=== PATIENT | male | born 1970 | race Caucasian/White ===

== ENCOUNTER → 2020-06-06 15:42 | Outpatient (CLI) | payer BC, SELFPAY ==
--- NOTE | ~2020-06-06 | CT_ITS ---
EXAMINATION: CT cervical spine wo con EXAM DATE: 06/06/2020 16:05 INDICATION: Fall. Neck pain. TECHNIQUE: Spiral CT of the cervical spine was performed without contrast. Axial images were reviewe d. Coronal and sagittal reformatted images were also reviewed. The dose-length product (DLP) for thi s examination was 291.86 mGy-cm. The exposure was tailored according to patient size (auto mA exposu re control), and iterative reconstruction (ASIR) was used as additional dose reduction technique. ere is no prior study for comparison. FINDINGS: Posterior fusion with cerclage wires C5-7. These facet joints and vertebral bodies also hav e solid bone bridging. There is 2 mm retrolisthesis C4 on C5. Mild to moderate arthritis. There is no evidence of acute cervical fracture. The odontoid process is intact. Pre-dens space is normal. Pr evertebral soft tissue is normal. There are no soft tissue abnormalities identified. There is no di sc space widening or traumatic vertebral body subluxation suspected. Mild upper cervical disc diseas e. A detailed level by level evaluation of spondylosis can be added as addendum if requested. IMPRESSION: 1. Intact lower cervical fusion. 2. No acute cervical findings. Reviewed, dictated and finalized at location A. UET KITCHEN SUPERVISOR
== END ==
PROVIDERS: PCP Internal Medicine; Visit Provider Internal Medicine
DX: M54.2 Cervicalgia (principal); W19.XXXA Unspecified fall, initial encounter; Z98.1 Arthrodesis status
CPT/HCPCS: 72125

== ENCOUNTER → 2022-05-24 13:42 | Outpatient (CLI) | payer OTHER, SELFPAY ==
--- NOTE | ~2022-05-24 | CT_ITS ---
EXAMINATION: CT abdomen pelvis wo con DATE: 05/24/2022 14:31 INDICATION: Recurrent cystitis TECHNIQUE: Computed tomography (CT) of the abdomen and pelvis was performed without intravenous contr ast. The dose-length product was 1005.28 mGy-cm. Automated exposure control and iterative reconstruct ion technique were employed. COMPARISON: No prior studies for comparison. FINDINGS: Calcified granuloma right lower lobe. Small 3 mm nodule right middle lobe, image 7. There i s a 6 mm left lower lobe nodule, image 24. Heart size normal. No significant pleural or pericardial e ffusion. The liver, spleen, pancreas, adrenal glands and kidneys are unremarkable. Gallbladder is pre sent. Small amount of gas in the bladder, likely from recent intervention. Clinically correlate. No f ocal bladder wall abnormalities. No significant perivesical fatty infiltration. Nonobstructive bowel gas pattern. Normal appendix. No free air or free fluid. There is an intramedull mukund danuta in the right femur. There is moderate osteoarthritis of the hips. There is lumbar spondylosis with levoscoliosis. No renal/ureteral stones or hydronephrosis. IMPRESSION: 1. Small bibasilar nodules, largest measuring 6 mm in the left lower lobe. Recommend follow-up low do se CT chest in 6 months. 2: Punctate foci of nondependent gas in the bladder which may be secondary to recent intervention or cystitis. Correlate for recent catheterization. Reviewed, dictated and finalized at location A. CE PATROL OFFICER IMPRESSION: 1. Small bibasilar nodules, largest measuring 6 mm in the left lower lobe. Mark mmend follow-up low dose CT chest in 6 months. 2: Punctate foci of nondependent gas in the bladder which may be secondary to recent intervention or cystitis. Correlate for recent catheterization.
== END ==
PROVIDERS: PCP Internal Medicine; Visit Provider Urology
DX: N30.90 Cystitis, unspecified without hematuria (principal); R91.8 Other nonspecific abnormal finding of lung field
CPT/HCPCS: 74176

== ENCOUNTER 2022-06-17 00:46 | Day surgery (SDC) | payer OTHER, SELFPAY ==
[2022-06-05 13:21] VITALS: BMI 38.0
[2022-06-17 09:20] VITALS: BP 128/77; PULSE 88; RESP 20; TEMP 36.1; O2SAT 98
[2022-06-17] MEDS: LACTATED RINGERS 1,000 ML 150 ML IV CONT (09:37)
--- NOTE | 2022-06-17 09:53 | P.PNAN_ITS ---
Anes - Initial Pre Proc Eval Procedure: Operation Date: 06/17/22 10:30 Proposed Procedures p Screening Colonoscopy - Abdifatah Staton MD Date/Time: 06/17/22 09:53 Surgeon: Abdifatah Staton MD Pre Op Diagnosis: neoplasm screening Patient Data Age: 52 Gender: M Height: 1.73 m Weight: 112.5 kg Last Vital Signs Temp 36.1 C L 06/17/22 09:20 Pulse 88 06/17/22 09:20 Resp 20 06/17/22 09:20 BP 128/77 06/17/22 09:20 Pulse Ox 98 06/17/22 09:20 O2 Del Method Room Air 06/17/22 09:20 Allergies Allergy/AdvReac Type Severity Reaction Status Date / Time Sulfa (Sulfonamide AdvReac Intermediate Other Verified 06/17/22 09:20 Antibiotics) Home Medications Medication Instructions Recorded Confirmed Type ascorbic acid (vitamin C) 1,000 mg 1 g PO DAILY 08/13/21 06/05/22 History tablet carbamazepine 200 mg 200 mg PO DIRECTED 08/13/21 06/05/22 History tablet,extended release,12 hr (Tegretol XR) esomeprazole magnesium 40 mg 40 mg PO DAILY 08/13/21 06/05/22 History capsule,delayed release (Nexium) methenamine brad-sod biphos 500 1 tablet PO Q12H 08/13/21 06/05/22 History mg-500 mg tablet psyllium husk 3.4 gram/5.4 gram 1 tbsp PO DAILY 08/13/21 06/05/22 History oral powder (Metamucil) mirabegron 25 mg tablet,extended 25 mg PO DAILY 06/05/22 06/05/22 History release 24 hr (Myrbetriq) Patient hx anesthesia problems: none Family hx anesthesia problems: none Results Review: All pre-operative results and documents have been reviewed as part of the pre- operative evaluation. [facility] Past Medical History Medical History GERD (gastroesophageal reflux disease) Surgical History Surgical History History of ear surgery History of neck surgery History of surgery on lower extremity Family History Family History Grandparent Diabetes mellitus Social History Social History Smoking status: Former smoker Tobacco type: cigarettes Alcohol intake: current Alcohol use details: rarely Substance use: never Substance use type: does not use Living arrangements: with family Occupation/Education: occupation Additional occupation/education comments: [employer] [facility] care concerns: No Anes - Eval Final PreProcedure Day of Procedure 06/17/22 09:53 Patient weight: obese Heart: regular rate and rhythm Lungs: clear to auscultation Airway: Mallampati scale class III Neurological: alert and oriented Last oral intake: >/= 8 hours ASA classification: III Emergent: no Anesthetic plan: proceed Anesthesia type and monitoring: general GIVS and standard monitoring Results Review: All pre-operative results and documents have been reviewed as part of the pre- operative evaluation. Informed Consent: The patient's anesthetic plan and its attendant risks and benefits were discussed with the patient/family/POA. Questions were solicited and answers provided to the satisfaction of the patient/family/POA.
[2022-06-17] MEDS: SIMETHICONE ORAL SUSPENSION 20 MG/0.3 ML 30 ML BOTTLE 0.6 ML IRRIGATION (10:32)
[2022-06-17 10:39] VITALS: BP 128/77; PULSE 73; RESP 16; O2SAT 99
[2022-06-17 10:49] VITALS: BP 130/76; PULSE 70; RESP 17; O2SAT 100
[2022-06-17 10:59] VITALS: BP 116/78; PULSE 71; RESP 21; O2SAT 100
--- NOTE | 2022-06-18 12:58 | P.HP_ITS ---
History of Present Illness History of Present Illness Consent: Risks, benefits, and alternatives have been discussed and questions answered. Patient agrees to proceed with procedure. Chief complaint: neoplasm screening Narrative: Angus Jain is a 52 year old male was referred for colon cancer screening. Review of Systems Review of Systems: All systems reviewed & are unremarkable except as noted in HPI and below PMFSH Past Medical History Medical History GERD (gastroesophageal reflux disease) Surgical History Surgical History History of ear surgery History of neck surgery History of surgery on lower extremity Family History Family History Grandparent Diabetes mellitus Social History Social History Smoking status: Former smoker Tobacco type: cigarettes Alcohol intake: current Alcohol use details: rarely Substance use: never Substance use type: does not use Living arrangements: with family Occupation/Education: occupation Additional occupation/education comments: [employer] concerns: No Meds Home Medications and Allergies Home Medications Medication Instructions Recorded Confirmed Type ascorbic acid (vitamin C) 1,000 mg 1 g PO DAILY 08/13/21 06/05/22 History tablet carbamazepine 200 mg 200 mg PO DIRECTED 08/13/21 06/05/22 History tablet,extended release,12 hr (Tegretol XR) esomeprazole magnesium 40 mg 40 mg PO DAILY 08/13/21 06/05/22 History capsule,delayed release (Nexium) methenamine brad-sod biphos 500 1 tablet PO Q12H 08/13/21 06/05/22 History mg-500 mg tablet psyllium husk 3.4 gram/5.4 gram 1 tbsp PO DAILY 08/13/21 06/05/22 History oral powder (Metamucil) mirabegron 25 mg tablet,extended 25 mg PO DAILY 06/05/22 06/05/22 History release 24 hr (Myrbetriq) Allergies Allergy/AdvReac Type Severity Reaction Status Date / Time Sulfa (Sulfonamide AdvReac Intermediate Other Verified 06/17/22 09:20 Antibiotics) Exam Const: General: alert Orientation/consciousness: patient oriented x3 Resp: Auscultation: clear to auscultation bilaterally Cardio: Rhythm: regular rhythm GI: GI Palp: Yes Soft to palpation and No Tenderness to palpation present (GI) Neuro: General: patient oriented x3 Assessment and Plan Assessment and plan (1) Colon cancer screening: Code(s): Z12.11 - Encounter for screening for malignant neoplasm of colon Status: Acute Assessment and Plan: Colonoscopy with possible biopsy or polypectomy or cautery or injection of subst ances.
== END 2022-06-17 11:06 | disposition home or self-care (01) ==
PROVIDERS: PCP Internal Medicine; Visit Provider Internal Medicine Gastroenterology
PROC: 0DJD8ZZ Inspection of Lower Intestinal Tract, Via Natural or Artificial Opening Endoscopic (ICD-10-PCS; CPT 45378; principal; 2022-06-17 10:30)
DX: Z12.11 Encounter for screening for malignant neoplasm of colon (principal); K21.9 Gastro-esophageal reflux disease without esophagitis; Z87.891 Personal history of nicotine dependence; K64.4 Residual hemorrhoidal skin tags; K64.8 Other hemorrhoids
CPT/HCPCS: 45378; J2704; J7120

== ENCOUNTER 2022-07-18 00:37 | Day surgery (SDC) | payer OTHER, SELFPAY ==
[2022-07-03 12:35] VITALS: BMI 38.2
--- NOTE | 2022-07-17 14:50 | PM.HPGS ---
History of Present Illness History of Present Illness Consent: Risks, benefits, and alternatives have been discussed and questions answered. Patient agrees to proceed with procedure. Chief complaint: dysphagia Narrative: Angus Jain is a 52 year old male Was having dysphagia for solid food. He has had esophageal dilatation at least 3 times because of a Schatzki's ring. It appears that his dilatation was up to 18 mm last 2 occasions. Review of Systems Review of Systems: All systems reviewed & are unremarkable except as noted in HPI and below PMFSH Past Medical History Medical History GERD (gastroesophageal reflux disease) Surgical History Surgical History History of ear surgery History of neck surgery History of surgery on lower extremity Family History Family History Grandparent Diabetes mellitus Social History Social History Smoking packs per day: 1 Smoking cigarettes per day: 20.0 Years smoked: 20 Smoking pack-years: 20.00 Smoking status: Former smoker Tobacco type: cigarettes Alcohol intake: current Alcohol use details: once a month Substance use: never Substance use type: does not use Living arrangements: with family Occupation/Education: occupation Additional occupation/education comments: [employer] [employer] [facility] care concerns: No Meds Home Medications and Allergies Home Medications Medication Instructions Recorded Confirmed Type ascorbic acid (vitamin C) 1,000 mg 1 g PO DAILY 08/13/21 07/03/22 History tablet carbamazepine 200 mg 200 mg PO DIRECTED 08/13/21 07/03/22 History tablet,extended release,12 hr (Tegretol XR) esomeprazole magnesium 40 mg 40 mg PO DAILY 08/13/21 07/03/22 History capsule,delayed release (Nexium) methenamine brad-sod biphos 500 1 tablet PO Q12H 08/13/21 07/03/22 History mg-500 mg tablet psyllium husk 3.4 gram/5.4 gram 1 tbsp PO DAILY 08/13/21 07/03/22 History oral powder (Metamucil) mirabegron 25 mg tablet,extended 25 mg PO DAILY 06/05/22 07/03/22 History release 24 hr (Myrbetriq) Allergies Allergy/AdvReac Type Severity Reaction Status Date / Time Sulfa (Sulfonamide AdvReac Intermediate Other Verified 07/03/22 12:34 Antibiotics) Exam Const: General: alert Orientation/consciousness: patient oriented x3 Resp: Auscultation: clear to auscultation bilaterally Cardio: Rhythm: regular rhythm GI: GI Palp: Yes Soft to palpation and No Tenderness to palpation present (GI) Neuro: General: patient oriented x3 Assessment and Plan Assessment and plan (1) Dysphagia: Code(s): R13.10 - Dysphagia, unspecified Status: Acute Assessment and Plan: EGD with possible biopsy or dilatation or cautery.
[2022-07-18 08:20] VITALS: BMI 37.5
[2022-07-18] MEDS: LACTATED RINGERS 1,000 ML 150 ML IV CONT (08:32)
[2022-07-18 08:38] VITALS: BP 143/90; PULSE 80; RESP 18; TEMP 36.6; O2SAT 95
--- NOTE | 2022-07-18 08:57 | WPDANESEPPF ---
Anes - Initial Pre Proc Eval Procedure: Operation Date: 07/18/22 09:30 Proposed Procedures p Esophagogastroduodenoscopy - Abdifatah Staton MD Date/Time: 07/18/22 08:57 Surgeon: Abdifatah Staton MD Pre Op Diagnosis: dysphagia Patient Data Age: 52 Gender: M Height: 1.73 m Weight: 112 kg Last Vital Signs Temp 97.8 F 07/18/22 08:38 Pulse 80 07/18/22 08:38 Resp 18 07/18/22 08:38 BP 143/90 H 07/18/22 08:38 Pulse Ox 95 07/18/22 08:38 O2 Del Method Room Air 07/18/22 08:38 Allergies Allergy/AdvReac Type Severity Reaction Status Date / Time Sulfa (Sulfonamide AdvReac Intermediate Other Verified 07/03/22 12:34 Antibiotics) Home Medications Medication Instructions Recorded Confirmed Type ascorbic acid (vitamin C) 1,000 mg 1 g PO DAILY 08/13/21 07/03/22 History tablet carbamazepine 200 mg 200 mg PO DIRECTED 08/13/21 07/03/22 History tablet,extended release,12 hr (Tegretol XR) esomeprazole magnesium 40 mg 40 mg PO DAILY 08/13/21 07/03/22 History capsule,delayed release (Nexium) methenamine brad-sod biphos 500 1 tablet PO Q12H 08/13/21 07/03/22 History mg-500 mg tablet psyllium husk 3.4 gram/5.4 gram 1 tbsp PO DAILY 08/13/21 07/03/22 History oral powder (Metamucil) mirabegron 25 mg tablet,extended 25 mg PO DAILY 06/05/22 07/03/22 History release 24 hr (Myrbetriq) Patient hx anesthesia problems: none Family hx anesthesia problems: none Results Review: All pre-operative results and documents have been reviewed as part of the pre-operative evaluation. [facility] Past Medical History Medical History GERD (gastroesophageal reflux disease) Surgical History Surgical History History of ear surgery History of neck surgery History of surgery on lower extremity Family History Family History Grandparent Diabetes mellitus Social History Social History Smoking packs per day: 1 Smoking cigarettes per day: 20.0 Years smoked: 20 Smoking pack-years: 20.00 Smoking status: Former smoker Tobacco type: cigarettes Alcohol intake: current Alcohol use details: once a month Substance use: never Substance use type: does not use Living arrangements: with family Occupation/Education: occupation 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 Informed Consent: The patient's anesthetic plan and its attendant risks and benefits were discussed with the patient/family/POA. Questions were solicited and answers provided to the satisfaction of the patient/family/POA.
[2022-07-18 09:26] VITALS: BP 116/68; PULSE 104; RESP 19; O2SAT 96
[2022-07-18 09:36] VITALS: BP 122/65; PULSE 71; RESP 19; O2SAT 99
[2022-07-18 09:46] VITALS: BP 119/60; PULSE 66; RESP 17; O2SAT 98
== END 2022-07-18 10:00 | disposition home or self-care (01) ==
PROVIDERS: PCP Internal Medicine; Visit Provider Internal Medicine Gastroenterology
PROC: 0DJ08ZZ Inspection of Upper Intestinal Tract, Via Natural or Artificial Opening Endoscopic (ICD-10-PCS; CPT 43235; principal; 2022-07-18 09:30)
DX: K22.2 Esophageal obstruction (principal); K21.9 Gastro-esophageal reflux disease without esophagitis; Z87.891 Personal history of nicotine dependence; E66.9 Obesity, unspecified; Z68.37 Body mass index [BMI] 37.0-37.9, adult
CPT/HCPCS: 43249; 88305; C1726; J2704; J7120

== ENCOUNTER 2023-08-21 10:10 | Outpatient (CLI) | payer OTHER, SELFPAY ==
--- NOTE | ~2023-08-21 | XR_ITS ---
EXAMINATION: XR scoliosis survey DATE: 08/21/2023 10:34 INDICATION: Scoliosis. TECHNIQUE: Anteroposterior and lateral views of entire spine standing were obtained. COMPARISON: None. FINDINGS: Right iliac crest stands 15 mm higher than left. There are 12 pairs of ribs. There are 5 no nrib-bearing lumbar segments. There is 6 degrees dextrocurvature from T3 to T12. There is 8 degrees l evocurvature from T12 to L4. There is kyphosis of thoracic spine. There is mild chronic anterior wedg ing of multiple thoracic vertebral bodies. There is 3 mm retrolisthesis of L1 on L2, L2 on L3, and L3 on L4. There is moderate thoracic spondylosis and mild lumbar spondylosis. IMPRESSION: 1. Right iliac crest stands 15 mm higher than the left. 2. 6 degrees dextrocurvature from T3 to T12 and 8 degrees levocurvature from T12 to L4. 3. Thoracic kyphosis. Reviewed, dictated and finalized at location E. IMPRESSION: 1. Right iliac crest stands 15 mm higher than the left. 2. 6 degrees dextrocurvature from T3 to T12 and 8 degrees levocurvature from T 12 to L4. 3. Thoracic kyphosis.
== END 2023-08-21 10:11 ==
PROVIDERS: PCP Internal Medicine; Visit Provider Chiropractor
DX: M43.8X5 Other specified deforming dorsopathies, thoracolumbar region (principal); M43.8X4 Other specified deforming dorsopathies, thoracic region; M40.294 Other kyphosis, thoracic region; M21.751 Unequal limb length (acquired), right femur
CPT/HCPCS: 72082

== ENCOUNTER 2023-10-29 00:29 | Day surgery (SDC) | payer OTHER, SELFPAY ==
[2023-10-27 13:43] VITALS: BMI 36.5
[2023-10-29 08:51] VITALS: BP 149/87; PULSE 85; RESP 18; TEMP 36.1; O2SAT 97; BMI 36.1
[2023-10-29] MEDS: LACTATED RINGERS 1,000 ML 150 ML IV CONT (09:04)
--- NOTE | 2023-10-29 09:34 | WPDANESEPPF ---
Anes - Initial Pre Proc Eval Procedure: Operation Date: 10/29/23 10:00 Proposed Procedures p Esophagogastroduodenoscopy - Pranav Garcia MD Date/Time: 10/29/23 09:34 Surgeon: Pranav Garcia MD Pre Op Diagnosis: Dysphagia, esophageal obstruction Patient Data Age: 53 Gender: M Height: 1.73 m Weight: 107.8 kg Last Vital Signs Temp 36.1 C L 10/29/23 08:51 Pulse 85 10/29/23 08:51 Resp 18 10/29/23 08:51 BP 149/87 H 10/29/23 08:51 Pulse Ox 97 10/29/23 08:51 O2 Del Method Room Air 10/29/23 08:51 Allergies Allergy/AdvReac Type Severity Reaction Status Date / Time Sulfa (Sulfonamide AdvReac Intermediate Other Verified 10/29/23 08:50 Antibiotics) Home Medications Medication Instructions Recorded Confirmed Type ascorbic acid (vitamin C) 1,000 mg 1 g PO BID 08/13/21 10/29/23 History tablet carbamazepine 200 mg 800 mg PO HS 08/13/21 10/29/23 History tablet,extended release,12 hr (Tegretol XR) esomeprazole magnesium 40 mg 40 mg PO DAILY 08/13/21 10/29/23 History capsule,delayed release (Nexium) psyllium husk 3.4 gram/5.4 gram 1 tbsp PO DAILY 08/13/21 10/29/23 History oral powder (Metamucil) mirabegron 25 mg tablet,extended 25 mg PO DAILY 06/05/22 10/29/23 History release 24 hr (Myrbetriq) acetaminophen 325 mg tablet 325 mg PO ONCE PRN Pain 10/27/23 10/29/23 History (Tylenol) calcium carbonate 500 1 tablet PO PRN PRN Gastric Reflux 10/27/23 10/29/23 History mg-simethicone 20 mg chewable tablet diphenhydramine HCl 25 mg capsule 12.5 mg PO HS 10/27/23 10/29/23 History (Benadryl) famotidine 10 mg chewable tablet 10 mg PO PRN PRN REFLUX 10/27/23 10/29/23 History furosemide 20 mg tablet 20 mg PO DAILY 10/27/23 10/29/23 History ibuprofen 200 mg tablet (Advil) 200 mg PO Q6H PRN Pain 10/27/23 10/29/23 History methenamine hippurate 1 gram tablet 1 g PO BID 10/27/23 10/29/23 History minocycline 100 mg capsule 100 mg PO BID 10/27/23 10/29/23 History Patient hx anesthesia problems: none Family hx anesthesia problems: none Results Review: All pre-operative results and documents have been reviewed as part of the pre-operative evaluation. [facility] Past Medical History Medical History (Updated 10/29/23 @ 09:34 by Adi Baig MD) GERD (gastroesophageal reflux disease) Obesity Surgical History Surgical History History of ear surgery History of neck surgery History of surgery on lower extremity Family History Family History Grandparent Diabetes mellitus Social History Social History Smoking packs per day: 1 Smoking cigarettes per day: 20.0 Years smoked: 20 Smoking pack-years: 20.00 Smoking status: Former smoker Tobacco type: cigarettes Alcohol intake: current Drinks per week: 4 Alcohol use details: BEERS Substance use: never Substance use type: does not use Living arrangements: with family Occupation/Education: occupation Additional occupation/education comments: [employer]- [employer] care concerns: No Anes - Eval Final PreProcedure Day of Procedure 10/29/23 09:34 Patient weight: obese Heart: regular rate and rhythm Lungs: clear to auscultation Airway: Mallampati scale class III Neurological: alert and oriented Last oral intake: >/= 8 hours ASA classification: III Emergent: no Anesthetic plan: proceed Anesthesia type and monitoring: general GIVS and standard monitoring Results Review: All pre-operative results and documents have been reviewed as part of the pre-operative evaluation. Informed Consent: The patient's anesthetic plan and its attendant risks and benefits were discussed with the patient/family/POA. Questions were solicited and answers provided to the satisfaction of the patient/family/POA.
--- NOTE | 2023-10-29 09:55 | PM.HPGS ---
History of Present Illness History of Present Illness Consent: Risks, benefits, and alternatives have been discussed and questions answered. Patient agrees to proceed with procedure. Chief complaint: Dysphagia, esophageal obstruction Narrative: Angus Jain is a 53 year old male here for egd, known h/o esophageal stricture with last dilation 1 year ago, he had several done. Review of Systems Review of Systems: All systems reviewed & are unremarkable except as noted in HPI and below PMFSH Past Medical History Medical History (Updated 10/29/23 @ 09:34 by Adi Baig MD) GERD (gastroesophageal reflux disease) Obesity Surgical History Surgical History History of ear surgery History of neck surgery History of surgery on lower extremity Family History Family History Grandparent Diabetes mellitus Social History Social History Smoking packs per day: 1 Smoking cigarettes per day: 20.0 Years smoked: 20 Smoking pack-years: 20.00 Smoking status: Former smoker Tobacco type: cigarettes Alcohol intake: current Drinks per week: 4 Alcohol use details: BEERS Substance use: never Substance use type: does not use Living arrangements: with family Occupation/Education: occupation Additional occupation/education comments: [employer] [employer] care concerns: No Meds Home Medications and Allergies Home Medications Medication Instructions Recorded Confirmed Type ascorbic acid (vitamin C) 1,000 mg 1 g PO BID 08/13/21 10/29/23 History tablet carbamazepine 200 mg 800 mg PO HS 08/13/21 10/29/23 History tablet,extended release,12 hr (Tegretol XR) esomeprazole magnesium 40 mg 40 mg PO DAILY 08/13/21 10/29/23 History capsule,delayed release (Nexium) psyllium husk 3.4 gram/5.4 gram 1 tbsp PO DAILY 08/13/21 10/29/23 History oral powder (Metamucil) mirabegron 25 mg tablet,extended 25 mg PO DAILY 06/05/22 10/29/23 History release 24 hr (Myrbetriq) acetaminophen 325 mg tablet 325 mg PO ONCE PRN Pain 10/27/23 10/29/23 History (Tylenol) calcium carbonate 500 1 tablet PO PRN PRN Gastric Reflux 10/27/23 10/29/23 History mg-simethicone 20 mg chewable tablet diphenhydramine HCl 25 mg capsule 12.5 mg PO HS 10/27/23 10/29/23 History (Benadryl) famotidine 10 mg chewable tablet 10 mg PO PRN PRN REFLUX 10/27/23 10/29/23 History furosemide 20 mg tablet 20 mg PO DAILY 10/27/23 10/29/23 History ibuprofen 200 mg tablet (Advil) 200 mg PO Q6H PRN Pain 10/27/23 10/29/23 History methenamine hippurate 1 gram tablet 1 g PO BID 10/27/23 10/29/23 History minocycline 100 mg capsule 100 mg PO BID 10/27/23 10/29/23 History Allergies Allergy/AdvReac Type Severity Reaction Status Date / Time Sulfa (Sulfonamide AdvReac Intermediate Other Verified 10/29/23 08:50 Antibiotics) Vital Signs Vital Signs - 24 hr 10/29/23 08:51 Temperature 97 F L Pulse Rate 85 Respiratory Rate 18 Blood Pressure 149/87 H Pulse Oximetry 97 Oxygen Delivery Room Air Exam Const: General: comfortable and no acute distress HENMT: Face/Nose/Sinus: Normal nares present Eyes: General: appearance normal, both eyes and all related structures Neck: Neck: no JVD Resp: Auscultation: clear to auscultation bilaterally Cardio: Rate: regular rate Rhythm: regular rhythm GI: Inspection: non-distended GI Palp: Yes Soft to palpation Skin: General skin exam: normal color Neuro: General: gait normal Speech: normal speech Extrem: General: normal to inspection Psych: Mental Status: mental status grossly normal Assessment and Plan Assessment and plan (1) Esophageal stricture: Code(s): K22.2 - Esophageal obstruction Status: Acute Assessment and Plan: egd, most likely will need dilation again
[2023-10-29 10:12] VITALS: BP 144/89; PULSE 69; RESP 15; O2SAT 99
[2023-10-29 10:22] VITALS: BP 139/92; PULSE 64; RESP 15; O2SAT 100
[2023-10-29 10:32] VITALS: BP 152/89; PULSE 63; RESP 16; O2SAT 100
== END 2023-10-29 10:43 | disposition home or self-care (01) ==
PROVIDERS: PCP Internal Medicine; Referring Provider Nurse Practitioner; Visit Provider Internal Medicine Gastroenterology
PROC: 0DJ08ZZ Inspection of Upper Intestinal Tract, Via Natural or Artificial Opening Endoscopic (ICD-10-PCS; CPT 43235; principal; 2023-10-29 10:00)
DX: K22.2 Esophageal obstruction (principal); K29.70 Gastritis, unspecified, without bleeding; K21.9 Gastro-esophageal reflux disease without esophagitis; E66.9 Obesity, unspecified; Z68.36 Body mass index [BMI] 36.0-36.9, adult; Z87.891 Personal history of nicotine dependence
CPT/HCPCS: 43249; 43239; 88305; C1726; J2704; J7120

== ENCOUNTER 2024-02-26 09:59 | Outpatient (CLI) | payer OTHER, SELFPAY ==
--- NOTE | ~2024-02-26 | CT_ITS ---
EXAMINATION: CT abdomen pelvis wo/w con DATE: 02/26/2024 10:55 INDICATION: Unspecified hydronephrosis. TECHNIQUE: Computed tomography (CT) of the abdomen and pelvis was performed without and with intraven ous contrast using a total of 130 mL Omnipaque-350 intravenous contrast with a double-bolus technique for simultaneous opacification of the renal parenchyma and renal collecting system. Automated exposu re control and iterative reconstruction technique were employed. The dose-length product was 2012.63 mGy-cm. COMPARISON: CT abdomen pelvis 05/24/2022 FINDINGS: The visualized portions of lung bases demonstrate a calcified right lung nodule is consistent with ol d granulomatous disease. There is a 6 mm nodule in left lower lobe without change, consistent with gr anulomatous disease. No pleural effusion. The heart size is normal. No pericardial effusion. There is a small sliding hiatal hernia. The liver, gallbladder, spleen, pancreas, and adrenal glands are norm al. There is moderate right hydronephrosis and hydroureter. There is no contrast in right ureter. Lef t kidney is normal. Left ureter is well opacified and is normal. There are no dilated loops of bowel. The appendix is normal. There is wall thickening of the terminal ileum. There is mesenteric lymphade nopathy with the largest mass measuring 10.3 x 7.7 cm. There is no ascites. There is internal fixatio n of right femur. There is mild thoracic and lumbar spondylosis. IMPRESSION: 1. Mesenteric lymphadenopathy, consistent with lymphoma versus metastatic disease. CT-guided biopsy i s recommended. 2. Focal wall thickening of the terminal ileum, which is indeterminate for primary malignancy. 3. Moderate right hydronephrosis and hydroureter secondary to the mesenteric lymphadenopathy. Reviewed, dictated and finalized at location A. DRIVER IMPRESSION: 1. Mesenteric lymphadenopathy, consistent with lymphoma versus metastatic disea se. CT-guided biopsy is recommended. 2. Focal wall thickening of the terminal ileum, which is indeterminate for prim mukund malignancy. 3. Moderate right hydronephrosis and hydroureter secondary to the mesenteric ly mphadenopathy.
[2024-02-26 10:26] LABS: Estimated Glomerular Filt Rate 53
== END 2024-02-26 10:00 | disposition home or self-care (01) ==
LOC: MICIMG 10:01
PROVIDERS: PCP Internal Medicine; Visit Provider Urology
DX: R59.0 Localized enlarged lymph nodes (principal); N13.30 Unspecified hydronephrosis; K63.89 Other specified diseases of intestine
CPT/HCPCS: 74178; Q9967

== ENCOUNTER 2024-03-01 09:44 | Outpatient (CLI) | payer OTHER, SELFPAY ==
--- NOTE | 2024-03-01 10:08 | ECG_ITS ---
Test Date: 2024-03-01 10:15:01 Measurements Intervals [place] Rate: 69 P: 49 [place]: 156 QRS: 50 QRSD: 94 T: 44 QT: 366 QTc: 395 Interpretive Statements SINUS RHYTHM NORMAL ECG No previous ECG available for comparison Electronically Signed On 03-01-2024 10:43:23 IT DIRECTOR by Jose Francisco Acevedo D.O.
[2024-03-01 10:21] LABS: Prothrombin Time 13.2 Seconds (11.1-14.7)
[2024-03-01 10:22] LABS: Anion Gap 9 mmol/L (4-12); Blood Urea Nitrogen 16 mg/dL (9-20); Calcium 9.6 mg/dL (8.4-10.2); Carbon Dioxide 31 mmol/L (22-30); Chloride 96 mmol/L (98-107); Estimated Glomerular Filt Rate > 60; Glucose 98 mg/dL (65-110); Potassium 4.5 mmol/L (3.4-5.0); Sodium 136 mmol/L (137-145)
== END 2024-03-01 09:45 | disposition home or self-care (01) ==
LOC: ANHLAB 09:45
PROVIDERS: PCP Internal Medicine; Visit Provider Anesthesiology
DX: Z01.818 Encounter for other preprocedural examination (principal); N28.9 Disorder of kidney and ureter, unspecified; F17.210 Nicotine dependence, cigarettes, uncomplicated; Z79.899 Other long term (current) drug therapy
CPT/HCPCS: 36415; 80048; 80156; 85610; 85730; 93005

== ENCOUNTER 2024-03-02 00:07 | Day surgery (SDC) | payer OTHER, SELFPAY ==
[2024-03-01 08:23] VITALS: BMI 36.5
--- NOTE | 2024-03-01 08:24 | PC.NURSE ---
Report to the Outpatient Waiting Room, entrance under the green pavilion located off [facility], at time _0800_ on date _[id number]_. Planned Procedure Time: _1000_.? Time changes happen often and if your time is changed the preop area will call you the afternoon before. - You and your visitor will be asked to self-screen and do not enter if you have any COVID symptoms. Please call surgeon if you need to reschedule. - A mask is optional within the hospital at this time. Patients may have clear liquids (water, carbonated beverages, clear teas, apple juice) until 3 hours prior to surgery with a maximum of 20 ounces. - No food from midnight until time of surgery and no smoking. This includes no chewing gum, candy or mints. Take only the following medications with a SIP of water on the morning of surgery: ____tylenol if needed. DO NOT STOP ANY OF YOUR OTHER PRESCRIPTION MEDICATIONS PRIOR TO SURGERY EXCEPT THE FOLLOWING Medications to discontinue per physician ____No vitamins or Ibuprofen until after surgery.____Ronyelfego told him to hold Ibuprofen. Please no make-up, nail bulgarian, hairspray, perfume, deodorant, or body powder the day of surgery.? No jewelry (including any body piercings) or valuables the day of surgery, leave them at home.? Please take a shower or bath the night before, or the morning of, surgery with an antibacterial soap.? Wear comfortable, loose fitting clothing.? - Jewelry must be removed prior to entering the operating room.? Rings and piercings that are not removed may be cut off. - The hospital will not accept responsibility for valuables.? - Please leave all valuables, including medications, at home the day of surgery. If you are going home after surgery, a licensed truck driver must drive you home.? - NO public transportation without another adult if you receive anesthesia. - We recommend that an adult stay with you for 24 hours following discharge. - We also recommend that you do not drive, make important decision, drink alcoholic beverages, or take any drugs that were not prescribed by your health care provider for at least 24 hours after your discharge time. Follow any additional instructions given to you from your surgeon. Telephone instructions given to _Angus___and asked if any additional questions and then verbalized understanding. Patient advised to call surgeon office or pre surgery nurse liaison [phone] if any additional questions.
[2024-03-02] VITALS (9 sets, daily range): BP systolic 148–188; BP diastolic 81–99; PULSE 73–95; RESP 12–18; TEMP 36.6–36.7; O2SAT 96–100
--- NOTE | ~2024-03-02 | XR_ITS ---
EXAMINATION: XR retrograde pyelo w/stent RT DATE: 03/02/2024 10:34 INDICATION: Right internal ureteral stent placement TECHNIQUE: Fluoroscopic images from a right internal ureteral stent placement are submitted for domi rm 62 seconds of fluoroscopy time. FINDINGS: There is a right double-J internal ureteral stent projecting in expected position, with proximal [place] loop at the level of the renal pelvis and distal loop in the pelvis within the bladder lumen. IMPRESSION: 1. Right internal ureteral stent placement. Please refer to real-time procedural findings for nicole ls. Reviewed, dictated and finalized at location B. SURISED CONTAINER FILLER IMPRESSION: 1. Right internal ureteral stent placement. Please refer to real-time procedu ral findings for details.
--- NOTE | 2024-03-02 09:01 | SUR.PREOP ---
SEIZURE PADS PLACED ON STRETCHER
--- NOTE | 2024-03-02 09:03 | P.HP_ITS ---
History of Present Illness History of Present Illness Consent: Risks, benefits, and alternatives have been discussed and questions answered. Patient agrees to proceed with procedure. Chief complaint: bilat hydronephrosis Narrative: Angus Jain is a 53 year old male Who recently underwent evaluation for recurrent urinary tract infection. Although cystoscopy was normal a CT scan of the abdomen pelvis without contrast shows marked retroperitoneal adenopathy with right ureteral obstruction. Discussion options he has elected for cystoscopy with retrograde pyelography and stent placement. His primary care physician is working to schedule a percutaneous biopsy of retroperitoneal nodes. Review of Systems Cardiovascular: Cardiovascular: Denies chest pain, Denies lightheadedness, Denies palpitations and Denies dyspnea Respiratory: Respiratory: Denies dyspnea Gastrointestinal: Gastrointestinal: Denies diarrhea, Denies nausea and Denies vomiting Genitourinary: Genitourinary: Denies hematuria and Denies dysuria Endocrine: Endocrine: Denies palpitations [facility] Past Medical History Medical History (Updated 03/02/24 @ 09:04 by Saroj Griffin MD) GERD (gastroesophageal reflux disease) Obesity Surgical History Surgical History History of ear surgery History of neck surgery History of surgery on lower extremity Family History Family History Grandparent Diabetes mellitus Social History Social History Smoking packs per day: 1 Smoking cigarettes per day: 20.0 Years smoked: 25 Smoking pack-years: 25.00 Smoking status: Former smoker Tobacco type: cigarettes Smoking end date: 03/01/19 Alcohol intake: current Drinks per week: 4 Alcohol use details: BEERS Substance use: never Substance use type: does not use Living arrangements: with family Occupation/Education: occupation Additional occupation/education comments: [employer]- [employer] care concerns: No Meds Home Medications and Allergies Home Medications Medication Instructions Recorded Confirmed Type ascorbic acid (vitamin C) 1,000 mg 1 g PO BID 08/13/21 03/02/24 History tablet carbamazepine 200 mg 800 mg PO HS 08/13/21 03/02/24 History tablet,extended release,12 hr (Tegretol XR) psyllium husk 3.4 gram/5.4 gram 1 tbsp PO DAILY 08/13/21 03/02/24 History oral powder (Metamucil) acetaminophen 325 mg tablet 325 mg PO ONCE PRN Pain 10/27/23 03/02/24 History (Tylenol) calcium carbonate 500 1 tablet PO PRN PRN Gastric Reflux 10/27/23 03/02/24 History mg-simethicone 20 mg chewable tablet diphenhydramine HCl 25 mg capsule 12.5 mg PO HS 10/27/23 03/02/24 History (Benadryl) famotidine 10 mg chewable tablet 10 mg PO PRN PRN REFLUX 10/27/23 03/02/24 History furosemide 20 mg tablet 20 mg PO DAILY 10/27/23 03/02/24 History ibuprofen 200 mg tablet (Advil) 200 mg PO Q6H PRN Pain 10/27/23 03/02/24 History methenamine hippurate 1 gram tablet 1 g PO BID 10/27/23 03/02/24 History zbclvwwqz-whtP-uirpags-FOS-bromelain 15 ml PO DAILY 03/01/24 03/02/24 History 1,937 mg-188 mg/15 mL oral liquid esomeprazole magnesium 20 mg 20 mg PO DAILY 03/01/24 03/02/24 History capsule,delayed release (Nexium) Allergies Allergy/AdvReac Type Severity Reaction Status Date / Time Sulfa (Sulfonamide AdvReac Intermediate Other Verified 03/02/24 08:41 Antibiotics) Vital Signs Vital Signs - 24 hr 03/02/24 08:21 Temperature 98.1 F Pulse Rate 95 Respiratory Rate 18 Blood Pressure 148/81 H Pulse Oximetry 96 Oxygen Delivery Room Air Exam Const: General: no acute distress Resp: Effort & Inspection: normal respiratory effort GI: Inspection: non-distended GI Palp: No abdominal tenderness and No Guarding due to palpation present (GI) Auscultation: normal bowel sounds Assessment and Plan Assessment and plan (1) Hydronephrosis, right: Code(s): N13.30 - Unspecified hydronephrosis Status: Acute (2) Retroperitoneal lymphadenopathy: Code(s): R59.0 - Localized enlarged lymph nodes Status: Acute Assessment and Plan: * Cystoscopy, right retrograde pyelography, right ureteral stent placement
--- NOTE | 2024-03-02 09:20 | P.PNAN_ITS ---
Anes - Initial Pre Proc Eval Procedure: Operation Date: 03/02/24 10:00 Proposed Procedures p Cystoscopy, Right Retrograde Pyelogram, Right Stent Placement - Saroj Griffin MD Date/Time: 03/02/24 09:20 Surgeon: Saroj Griffin MD Pre Op Diagnosis: bilat hydronephrosis Patient Data Age: 53 Gender: M Height: 1.73 m Weight: 104.4 kg Last Vital Signs Temp 98.1 F 03/02/24 08:21 Pulse 95 03/02/24 08:21 Resp 18 03/02/24 08:21 BP 148/81 H 03/02/24 08:21 Pulse Ox 96 03/02/24 08:21 O2 Del Method Room Air 03/02/24 08:21 Allergies Allergy/AdvReac Type Severity Reaction Status Date / Time Sulfa (Sulfonamide AdvReac Intermediate Other Verified 03/02/24 08:41 Antibiotics) Home Medications Medication Instructions Recorded Confirmed Type ascorbic acid (vitamin C) 1,000 mg 1 g PO BID 08/13/21 03/02/24 History tablet carbamazepine 200 mg 800 mg PO HS 08/13/21 03/02/24 History tablet,extended release,12 hr (Tegretol XR) psyllium husk 3.4 gram/5.4 gram 1 tbsp PO DAILY 08/13/21 03/02/24 History oral powder (Metamucil) acetaminophen 325 mg tablet 325 mg PO ONCE PRN Pain 10/27/23 03/02/24 History (Tylenol) calcium carbonate 500 1 tablet PO PRN PRN Gastric Reflux 10/27/23 03/02/24 History mg-simethicone 20 mg chewable tablet diphenhydramine HCl 25 mg capsule 12.5 mg PO HS 10/27/23 03/02/24 History (Benadryl) famotidine 10 mg chewable tablet 10 mg PO PRN PRN REFLUX 10/27/23 03/02/24 History furosemide 20 mg tablet 20 mg PO DAILY 10/27/23 03/02/24 History ibuprofen 200 mg tablet (Advil) 200 mg PO Q6H PRN Pain 10/27/23 03/02/24 History methenamine hippurate 1 gram tablet 1 g PO BID 10/27/23 03/02/24 History avrvdsgqe-qfqO-pxdzcuu-FOS-bromelain 15 ml PO DAILY 03/01/24 03/02/24 History 1,937 mg-188 mg/15 mL oral liquid esomeprazole magnesium 20 mg 20 mg PO DAILY 03/01/24 03/02/24 History capsule,delayed release (Nexium) Patient hx anesthesia problems: none Family hx anesthesia problems: none Results Review: All pre-operative results and documents have been reviewed as part of the pre- operative evaluation. [facility] Past Medical History Medical History GERD (gastroesophageal reflux disease) Obesity Surgical History Surgical History History of ear surgery History of neck surgery History of surgery on lower extremity Family History Family History Grandparent Diabetes mellitus Social History Social History Smoking packs per day: 1 Smoking cigarettes per day: 20.0 Years smoked: 25 Smoking pack-years: 25.00 Smoking status: Former smoker Tobacco type: cigarettes Smoking end date: 03/01/19 Alcohol intake: current Drinks per week: 4 Alcohol use details: BEERS Substance use: never Substance use type: does not use Living arrangements: with family Occupation/Education: occupation Additional occupation/education comments: [employer]- [facility] [employer] [facility] [employer] care concerns: No Anes - Eval Final PreProcedure Day of Procedure 03/02/24 09:20 Patient weight: obese Heart: regular rate and rhythm Lungs: clear to auscultation Airway: Mallampati scale class II Neurological: alert and oriented Last oral intake: >/= 8 hours ASA classification: III Emergent: no Anesthetic plan: proceed Anesthesia type and monitoring: general LMA and standard monitoring Results Review: All pre-operative results and documents have been reviewed as part of the pre- operative evaluation. Ex smoker, quit 2018. Pt had injury to neck/lower leg in the past, still uses walker for ambulation. No cp or sob w walking short distances. Informed Consent: The patient's anesthetic plan and its attendant risks and benefits were discussed with the patient/family/POA. Questions were solicited and answers provided to the satisfaction of the patient/family/POA.
--- NOTE | 2024-03-02 10:02 | WPDHPUPDATE1 ---
History and Physical Update Update Date/Time: 03/02/24 10:02 History and Physical has been reviewed, including an updated exam of the patient. There are NO changes in the patient's condition. Risks, benefits, and alternatives have been discussed and questions answered. Patient agrees to proceed with procedure.
[2024-03-02] MEDS: ceFAZolin 2 GM/D5W 50 ML 2 GM/50 ML BAG IVPB (10:07)
[2024-03-02] MEDS: LACTATED RINGERS 1,000 ML 30 ML IV CONT (10:35)
[2024-03-02] MEDS: fentaNYL CITRATE INJ (*CRX) 100 MCG/2 ML VIAL 25 MCG IV PUSH (10:43)
--- NOTE | 2024-03-02 12:43 | P.OP_ITS ---
Procedure Note - Detailed Date of Procedure 03/02/24 Pre-op Diagnosis Right hydronephrosis Post-op Diagnosis Same Procedure Performed Cystoscopy, right retrograde pyelography, right ureteral stent placement Surgeon Saroj Griffin MD Anesthesia MAC Findings Right hydronephrosis secondary to extrinsic compression of the right mid ureter Description of Procedure Patient is brought to the operative suite was prepped draped in routine sterile fashion in dorsal lithotomy position. 2% xylocaine jelly was introduced intraurethrally and systemic sedation is administered per the anesthesia department. Patient has no urethral stricture and minimal lateral lobe h yperplasia of prostate. Bladder mucosa is normal. There was no intravesical foreign body or neoplasm. He has a single orthotopic ureteral orifice bilaterally. Eight F bulb-tipped catheter was used to obtain retrograde pyelogram. He has 3-4 cm area of concentric narrowing in the right mid ureter consistent with extrinsic compression from his known retroperitoneal adenopathy. There was hydronephrosis proximal to this. A 0.035 in glidewire was advanced into the right renal pelvis and a 6FF variable length stent is appropriately positioned. Scopes and wires removed and was taken recovery room good condition. Urine Output 100 Drains No Packing Yes Pathology None sent Complications No immediate complications Condition Stable
--- NOTE | 2024-03-02 13:07 | SUR.PHASEII ---
Pt had question about antibiotics and pain medication. MD Griffin called, MD Griffin stated there is no need and if patient is in pain to call office.
== END 2024-03-02 13:00 | disposition home or self-care (01) ==
PROVIDERS: PCP Internal Medicine; Visit Provider Urology
PROC: (CPT 52352; principal; 2024-03-02 10:00)
DX: N13.30 Unspecified hydronephrosis (principal); N40.0 Benign prostatic hyperplasia without lower urinary tract symptoms; K21.9 Gastro-esophageal reflux disease without esophagitis; E66.9 Obesity, unspecified; Z68.35 Body mass index [BMI] 35.0-35.9, adult; Z79.1 Long term (current) use of non-steroidal anti-inflammatories (NSAID); Z98.890 Other specified postprocedural states; Z98.1 Arthrodesis status; Z87.891 Personal history of nicotine dependence
CPT/HCPCS: 52332; 74420; C1758; C1769; C2617; J0690; J1100; J2405; J2704; J3010; J7120; Q9966

== ENCOUNTER 2024-03-21 17:23 | Observation (INO) | payer OTHER, SELFPAY ==
--- NOTE | ~2024-03-21 | CT_ITS ---
EXAMINATION: CT abdomen pelvis w con DATE: 03/21/2024 20:12 INDICATION: blood in urine, recent stent placed TECHNIQUE: Computed tomography (CT) of the abdomen and pelvis was performed with 100 mL Omnipaque-350 intravenous contrast. Automated exposure control and iterative reconstruction technique were employe d. The dose-length product was 922.10 mGy-cm. COMPARISON: 02/26/2024. FINDINGS: Lower thorax: Peripheral pulmonary granulomas. Liver: Normal. Biliary/Gallbladder: Gallbladder is normal. No bile duct dilation. Pancreas: No mass or duct dilation. Spleen: Normal. Adrenals:No mass. Kidneys: Mild left ureterectasis and moderate left pelviectasis and caliectasis, stable. Moderate to severe right caliectasis and pelviectasis, also stable. Right ureteral stent, in good position GI tract: Mild distal esophageal and gastric wall edema. Wall thickening of the terminal ileum. Cecal wall edema. No small or large bowel dilation. Normal appendix. Diverticulosis without diverticulitis . Mesentery/Peritoneum: Increasing size of the lobulated central mesenteric mass now measuring up to 15 .3 cm, which encases the traversing right ureter, superior mesenteric artery and multiple proximal br anches, and appears to occlude the superior mesenteric vein. This mass is likely a conglomerate janet mass. Multiple enlarged adjacent mesenteric lymph nodes surrounding the mass. Retroperitoneum: No mass. Pelvis: Bladder wall thickening. Soft Tissues: Soft tissues and body wall unremarkable. Bones: No acute osseous finding. Right femoral intramedullary danuta. IMPRESSION: Mild esophagitis/gastritis. Wall thickening of the terminal ileum with cecal wall edema, may reflect ileitis/colitis. Primary mal ignancy at the terminal ileum should be considered in the differential. Mesenteric lymphadenopathy with a large conglomerate central mesenteric janet mass that is overall in creased in size, consistent with lymphoma or metastatic disease. This mass appears to be occluding th e superior mesenteric vein. Bladder wall thickening which may be secondary to cystitis, correlate with urinalysis. Reviewed, dictated and finalized at location K. E CAMERA OPERATOR IMPRESSION: Mild esophagitis/gastritis. Wall thickening of the terminal ileum with cecal wall edema, may reflect ileiti s/colitis. Primary malignancy at the terminal ileum should be considered in the differential. Mesenteric lymphadenopathy with a large conglomerate central mesenteric janet m ass that is overall increased in size, consistent with lymphoma or metastatic d isease. This mass appears to be occluding the superior mesenteric vein. Bladder wall thickening which may be secondary to cystitis, correlate with urin alysis.
--- NOTE | ~2024-03-21 | XR_ITS ---
EXAMINATION: XR chest 2V Exam Date/Time: 03/21/2024 20:10 PROOF PRESS OPERATOR HISTORY: RUQ abdominal pain Comparison: None. RESULT: Lines, tubes, and devices: None. Lungs and pleura: Clear. Cardiomediastinal silhouette: Unremarkable. Other: No acute osseous or upper abdominal finding. IMPRESSION: No acute cardiopulmonary process. Reviewed, dictated and finalized at location K. F PRESS OPERATOR
[2024-03-21 17:24] VITALS: BP 164/69; PULSE 81; RESP 20; TEMP 36.8; O2SAT 100
[2024-03-21 18:46] LABS: Basophils Absolute Auto 0.1 K/mm3 (0.0-0.1); Basophils Percent Auto 0.9 % (0.2-1.2); Eosinophils Absolute Auto 0.5 K/mm3 (0-0.3); Eosinophils Percent Auto 7.2 % (0-4.4); Hemoglobin 9.9 g/dL (14.0-18.0); Immature Granulocyte Absolute 0.02 K/mm3 (0.00-0.031); Immature Granulocyte Percent A 0.3 % (0-0.5); Lymphocytes Absolute Auto 0.91 K/mm3 (0.9-3.2); Mean Corpuscular HGB Conc 31.9 g/dl (32-36); Mean Corpuscular Hemoglobin 29.1 pg (26-34); Mean Corpuscular Volume 91.2 fl (80-100); Mean Platelet Volume 9.3 fl (7.4-10.4); Monocytes Absolute Auto 0.7 K/mm3 (0.1-0.6); Monocytes Percent Auto 10.3 % (2.6-8.5); Neutrophils Absolute Auto 4.4 K/mm3 (1.3-6.7); Neutrophils Percent Auto 67.3 % (45.5-73.1); Platelet Count Result 249 k/mm3 (150-375); Red Cell Distribution Width 13.3 % (11.5-14.5); White Blood Count 6.5 K/mm3 (4.5-10.0)
--- NOTE | 2024-03-21 18:54 | ECG_ITS ---
Test Date: 2024-03-21 19:17:29 Measurements Intervals [place] Rate: 66 P: 53 MS: 163 QRS: 52 QRSD: 93 T: 55 QT: 373 QTc: 393 Interpretive Statements SINUS RHYTHM Compared to ECG 03/01/2024 10:15:01 No significant changes Electronically Signed On 03-21-2024 21:56:54 NEWS WRITER by Shahrzad Villalpando M.D.
[2024-03-21 19:01] LABS: Alanine Aminotransferase 14 U/L (6-50); Albumin Level 4.1 g/dL (3.5-5.1); Alkaline Phosphatase 134 U/L (38-126); Anion Gap 5 mmol/L (4-12); Aspartate Amino Transferase 35 U/L (17-59); Bilirubin,Total 0.3 mg/dL (0.2-1.3); Blood Urea Nitrogen 13 mg/dL (9-20); Calcium 9.1 mg/dL (8.4-10.2); Carbon Dioxide 31 mmol/L (22-30); Chloride 102 mmol/L (98-107); Estimated CRCL calculation 15 ml/min; Estimated Glomerular Filt Rate > 60; Glucose 97 mg/dL (65-110); Potassium 4.3 mmol/L (3.4-5.0); Sodium 138 mmol/L (137-145)
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
[2024-03-21 19:04] LABS: Add Urine Microscopic? YES; Appearance Urine Cloudy (Clear); Bilirubin Urine 1+ (Negative); Blood Urine 2+ (Negative); Color Urine Red (Yellow); Glucose Urine UA Negative (Negative); Ketones Urine Negative (Negative); Leukocyte Esterase Ur 2+ LEU/UL (Negative); Nitrate Urine Negative (Negative); Protein Urine 3+ mg/dL (Negative); Specific Grav Ur 1.024 (1.001-1.035); Urobilinogen Urine 0.2 mg/dL (<2.0)
[2024-03-21] MEDS: SODIUM CHLORIDE 0.9% IV 1,000 ML 999 ML IV CONT (19:16)
[2024-03-21 19:21] LABS: Bacteria Urine 1+ /hpf; Need Manual Microscopic Reviewed; Non Pathogenic Casts 0-2; Squamous Epithelial Cell Urine Few /hpf (Few); WBC Urine 51-100 /hpf (0-3)
[2024-03-21 19:23] LABS: RBC Urine >100 /hpf (0-2)
[2024-03-21 19:27] LABS: Lactic Acid Reflex 0.9 mmol/L (0.7-2.0)
[2024-03-21 19:29] LABS: CRP 6.9 mg/dL (<1.0); Creatine Kinase 33 U/L (55-170); Lipase 90 U/L (23-300)
[2024-03-21 19:39] LABS: Troponin I < 0.012 ng/mL (0.000-0.034)
[2024-03-21 19:40] LABS: Prothrombin Time 13.1 Seconds (11.1-14.7)
[2024-03-21 19:41] LABS: Partial Thromboplastin Time 29.9 Seconds (22.3-36.8)
[2024-03-21 19:44] LABS: Procalcitonin 0.1 ng/mL
[2024-03-21 19:53] LABS: Erythrocyte Sedimentation Rate 115 mm/hr (0-20)
[2024-03-21 20:47] VITALS: BP 166/89; PULSE 76; RESP 16; TEMP 36.5; O2SAT 99
[2024-03-21] MEDS: HYDROmorphone HCL INJ (*CRX) 1 MG/ML SYR 0.5 MG IV PUSH (21:05)
--- NOTE | 2024-03-21 23:15 | PM.IMHP ---
H&P: HPI History of Present Illness Date/Time: 03/21/24 23:15 Chief Complaint: hematuria Narrative: This is a 53-year-old male with past medical history significant for obesity, gastroesophageal reflux disease. Patient recently found to have abdominal lymphadenopathies with mass effect on right ureter requiring a stent placement. Patient returns today after having episode of hematuria. Patient denies any fevers, rigors, chills has had good appetite, no weight loss. Preliminary workup was significant for CT of abdomen and pelvis with mesenteric lymphadenopathies. urinalysis showed RBCs and WBCs present. Patient has been admitted for further evaluation management and treatment. EXAMINATION: CT abdomen pelvis w con DATE: 03/21/2024 20:12 INDICATION: blood in urine, recent stent placed TECHNIQUE: Computed tomography (CT) of the abdomen and pelvis was performed with 100 mL Omnipaque-350 intravenous contrast. Automated exposure control and iterative reconstruction technique were employed. The dose-length product was 922.10 mGy-cm. COMPARISON: 02/26/2024. FINDINGS: Lower thorax: Peripheral pulmonary granulomas. Liver: Normal. Biliary/Gallbladder: Gallbladder is normal. No bile duct dilation. Pancreas: No mass or duct dilation. Spleen: Normal. Adrenals:No mass. Kidneys: Mild left ureterectasis and moderate left pelviectasis and caliectasis, stable. Moderate to severe right caliectasis and pelviectasis, also stable. Right ureteral stent, in good position GI tract: Mild distal esophageal and gastric wall edema. Wall thickening of the terminal ileum. Cecal wall edema. No small or large bowel dilation. Normal appendix. Diverticulosis without diverticulitis. Mesentery/Peritoneum: Increasing size of the lobulated central mesenteric mass now measuring up to 15.3 cm, which encases the traversing right ureter, superior mesenteric artery and multiple proximal branches, and appears to occlude the superior mesenteric vein. This mass is likely a conglomerate janet mass. Multiple enlarged adjacent mesenteric lymph nodes surrounding the mass. Retroperitoneum: No mass. Pelvis: Bladder wall thickening. Soft Tissues: Soft tissues and body wall unremarkable. Bones: No acute osseous finding. Right femoral intramedullary danuta. IMPRESSION: Mild esophagitis/gastritis. Wall thickening of the terminal ileum with cecal wall edema, may reflect ileitis/colitis. Primary malignancy at the terminal ileum should be considered in the differential. Mesenteric lymphadenopathy with a large conglomerate central mesenteric jante mass that is overall increased in size, consistent with lymphoma or metastatic disease. This mass appears to be occluding the superior mesenteric vein. Bladder wall thickening which may be secondary to cystitis, correlate with urinalysis. [facility] Past Medical History Medical History Obesity GERD (gastroesophageal reflux disease) Surgical History Surgical History History of ear surgery History of surgery on lower extremity History of neck surgery Family History Family History Grandparent Diabetes mellitus Social History Social History Smoking packs per day: 1 Smoking cigarettes per day: 20.0 Years smoked: 25 Smoking pack-years: 25.00 Smoking status: Former smoker Alcohol use details: BEERS Substance use: never Substance use type: does not use Do You Feel Safe in your Home?: Yes Lack of Transportation: No Lack of Food: Never True Current Housing: I Have Housing Concerned About Future Housing: No Difficulty Paying Gas/Electric Bills: No Difficulty Paying for Meds: No Currently Unemployed: No Education: Associate Degree Difficulty w/ Childcare or Family Care: No Living arrangements: with family Occupation/Education: occupation Additional occupation/education comments: [employer] concerns: No Meds Home Medications and Allergies Home Medications ?Medication ?Instructions ?Recorded ?Confirmed ?Type ascorbic acid (vitamin C) 1,000 mg 1 g PO BID 08/13/21 03/22/24 History tablet carbamazepine 200 mg 800 mg PO HS 08/13/21 03/22/24 History tablet,extended release,12 hr (Tegretol XR) psyllium husk 3.4 gram/5.4 gram 1 tbsp PO DAILY 08/13/21 03/22/24 History oral powder (Metamucil) acetaminophen 325 mg tablet 650 mg PO Q4H PRN Pain 10/27/23 03/22/24 History (Tylenol) calcium carbonate 500 1 tablet PO PRN PRN Gastric Reflux 10/27/23 03/22/24 History mg-simethicone 20 mg chewable tablet diphenhydramine HCl 25 mg capsule 12.5 mg PO HS 10/27/23 03/22/24 History (Benadryl) famotidine 10 mg chewable tablet 10 mg PO PRN PRN REFLUX 10/27/23 03/22/24 History furosemide 20 mg tablet 20 mg PO DAILY 10/27/23 03/22/24 History ibuprofen 200 mg tablet (Advil) 200 mg PO Q6H PRN Pain 10/27/23 03/22/24 History methenamine hippurate 1 gram tablet 1 g PO BID 10/27/23 03/22/24 History esomeprazole magnesium 20 mg 20 mg PO DAILY 03/01/24 03/22/24 History capsule,delayed release (Nexium) Allergies Allergy/AdvReac Type Severity Reaction Status Date / Time Sulfa (Sulfonamide AdvReac Intermediate Other Verified 03/22/24 01:05 Antibiotics) Vital Signs Vital Signs - 24 hr 03/21/24 17:24 03/21/24 20:47 Temperature 98.3 F 97.7 F Pulse Rate 81 76 Respiratory Rate 20 16 Blood Pressure 164/69 H 166/89 H Pulse Oximetry 100 99 Oxygen Delivery Room Air Exam Narrative: laying in a stretcher Const: General: comfortable, no acute distress, well developed, alert, awake and average body habitus Nutritional Appearance: average body habitus Orientation/consciousness: patient oriented x3 Other: well-appearing HENMT: Head: normal to inspection, normocephalic and atraumatic Ears: hearing grossly normal bilaterally Face/Nose/Sinus: normal facial exam Face and sinus: normal facial exam Eyes: General: appearance normal, both eyes and all related structures Pupils: Equal, round and reactive pupils present EOM: EOMs intact bilaterally Neck: Neck: full ROM, no lymphadenopathy and no JVD Thyroid: thyroid normal Lymphatic: no lymphadenopathy noted Resp: Effort & Inspection: normal respiratory effort and able to speak in complete sentences Auscultation: clear to auscultation bilaterally Cardio: Jugular venous distension: no JVD Rate: regular rate Rhythm: regular rhythm Heart sounds: S1 normal heart sound present and S2 normal heart sound present GI: GI Palp: Yes Soft to palpation and Yes No hepatosplenomegaly present : General: Yes deferred Skin: Rashes: no rashes Wounds: no wounds Neuro: General: patient oriented x3 and CN's II-XI intact bilaterally Cranial nerves: Yes CN's II-XII intact bilaterally and Yes Equal, round and reactive pupils present Cognition (Neuro): normal cognition Speech: normal speech Gait exam (Neuro): Normal gait present Motor exam (neuro): 5/5 motor strength present throughout Extrem: General: normal to inspection, full ROM, no joint enlargement and no pedal edema H&P: Results Labs Labs: Short CBC 03/21/24 Range/Units 18:37 WBC 6.5 (4.5-10.0) K/mm3 Hgb 9.9 L (14.0-18.0) g/dL Hct 31.0 L (42.0-52.0) % Plt Count 249 (150-375) k/mm3 BMP 03/21/24 18:37 Sodium 138 Potassium 4.3 Chloride 102 Carbon Dioxide 31 H BUN 13 Creatinine 0.80 Glucose 97 Calcium 9.1 Cardiac Enzymes 03/21/24 Range/Units 18:37 Total Creatine Kinase 33 L (55-170) U/L Troponin I < 0.012 (0.000-0.034) ng/mL Liver Function 03/21/24 Range/Units 18:37 Total Bilirubin 0.3 (0.2-1.3) mg/dL AST 35 (17-59) U/L ALT 14 (6-50) U/L Alkaline Phosphatase 134 H (38-126) U/L Albumin 4.1 (3.5-5.1) g/dL Urine 03/21/24 Range/Units 18:37 Urine Color Red H (Yellow) Urine Appearance Cloudy H (Clear) Urine pH 6.0 (5.0-9.0) Ur Specific [place] 1.024 (1.001-1.035) Urine Protein 3+ H (Negative) mg/dL Urine Glucose (UA) Negative (Negative) mg/dL Assessment and Plan Assessment and plan (1) Urinary tract infection: Code(s): N39.0 - Urinary tract infection, site not specified Status: Acute Assessment and Plan: Admit to regular medical floor patient is started on vancomycin and meropenem await cultures (2) Hematuria: Code(s): R31.9 - Hematuria, unspecified Status: Acute Assessment and Plan: continue to monitor urology consulted (3) Acute occlusion of mesenteric vein: Code(s): K55.019 - Acute (reversible) ischemia of small intestine, extent unspecified Status: Acute Assessment and Plan: secondary to mass effect (4) Retroperitoneal lymphadenopathy: Code(s): R59.0 - Localized enlarged lymph nodes Status: Acute Assessment and Plan: will undergo biopsy in a.m. hem/onc consult (5) Hydronephrosis, right: Code(s): N13.30 - Unspecified hydronephrosis Status: Acute Assessment and Plan: status post stent placement (6) Esophageal stricture: Code(s): K22.2 - Esophageal obstruction Status: Acute Assessment and Plan: stable (7) Dysphagia: Code(s): R13.10 - Dysphagia, unspecified Status: Acute Assessment and Plan: stable
--- NOTE | 2024-03-21 23:44 | PC.NURSE ---
Pt was administered abx before blood cultures were drawn. Incident report was made by nurse. Incident Number# [id number]
[2024-03-22] MEDS: HYDROmorphone HCL INJ (*CRX) 1 MG/ML SYR 0.5 MG IV PUSH ×2 (00:11→05:22)
[2024-03-22] MEDS: MEROPENEM 1 GM/NS 100 ML 1 GM/100 ML BAG IVPB ×4 (00:15→22:50)
[2024-03-22 00:29] VITALS: BMI 34.4
--- NOTE | 2024-03-22 00:47 | ADMGEN ---
This patient, Angus Jain, was admitted to Medical Room 348-01. Patient/family oriented to hospital policies and general routines including ID bracelet, bed and alarms, visiting hours, pain management, procedures, bathroom and other care routines, personal items, smoking policy, room service/diet, and visiting hours. Information on how to activate the Rapid Response Team has been discussed. Patient/Family are encouraged to report perceived risks to care and to ask questions if they do not understand what they are told or what they should do.
[2024-03-22] MEDS: SODIUM CHLORIDE 0.9% IV 1,000 ML 125 ML IV CONT (01:00)
[2024-03-22] MEDS: VANCOMYCIN 1,250 MG/NS 250 ML 1,250 MG/250 ML BAG 166.67 MG IVPB ×2 (01:00→02:39)
[2024-03-22] MEDS: CARBAMAZEPINE XR 200 MG TAB.ER.12H 800 MG PO ×2 (01:04→19:51)
--- NOTE | 2024-03-22 01:19 | PC.NURSE ---
Admission complete; S/O at bedside. Patient states he would like to be a DNR, verified by DANNA Best. Admission report to DANNA Best.
[2024-03-22 01:29] VITALS: BP 147/79; PULSE 75; RESP 16; TEMP 36.8; O2SAT 99
[2024-03-22 05:15] VITALS: BP 130/73; PULSE 80; RESP 16; TEMP 37; O2SAT 98
[2024-03-22 06:24] LABS: Estimated CRCL calculation 109 ml/min; Estimated Glomerular Filt Rate > 60
--- NOTE | 2024-03-22 07:39 | P.PNIM_ITS ---
Progress Note: A&P Assessment and Plan (1) Urinary tract infection: Code(s): N39.0 - Urinary tract infection, site not specified Status: Acute Assessment and Plan: ED provider spoke with urology on-call who advised patient's urinalysis abnormalities is probably due to uretal stent irritation and has no concerns for admission from a urology standpoint. - UA: red cloudy appearance with 3+ protein, 2+ blood, 1+ bili, 2+ leukocytes, >100 RBC, 51-100 WBC, 1+ bacteria. - UC obtained on 03/21/24: pending - Blood cultures obtained on 03/21/24: pending - no previous micro to be reviewed - started on vanc and yuriy on 03/21, per patients he follows with [facility] for resistant UTIs that have required senior care abx in the past. (2) Acute occlusion of mesenteric vein: Code(s): K55.019 - Acute (reversible) ischemia of small intestine, extent unspecified Status: Acute Assessment and Plan: - CT abdomen/pelvis: Wall thickening of the terminal ileum with cecal wall edema, may reflect ileitis/colitis. Primary malignancy at the terminal ileum should be considered in the differential. Mesenteric lymphadenopathy with a large conglomerate central mesenteric ajnet mass that is overall increased in size, consistent with lymphoma or metastatic disease. This mass appears to be occluding the superior mesenteric vein. Bladder wall thickening which may be secondary to cystitis, correlate with urinalysis. - Heme/onc consulted, appreciate recommendations ED provider spoke with Dr. Ortega, recommended pt be admitted to the hospital for a biopsy of his mass in the morning. Call made to IR in regards to the best way to biopsy the mass. Per Dr. Thomson a colonoscopy would likely be the better biopsy option as the mass at the ileo-cecal region. Discussed this with Dr. Ortega and he is okay with this form of biopsy. GI consulted and plan for colonoscopy tomorrow. If negative or no findings then will need evaluation by IR for biopsy or even surgery for direct visualization (3) Retroperitoneal lymphadenopathy: Code(s): R59.0 - Localized enlarged lymph nodes Status: Acute Assessment and Plan: - CT abdomen/pelvis: Wall thickening of the terminal ileum with cecal wall edema, may reflect ileitis/colitis. Primary malignancy at the terminal ileum should be considered in the differential. Mesenteric lymphadenopathy with a large conglomerate central mesenteric janet mass that is overall increased in size, consistent with lymphoma or metastatic disease. This mass appears to be occluding the superior mesenteric vein. Bladder wall thickening which may be secondary to cystitis, correlate with urinalysis. - hem/onc consulted, appreciate recommendations ED provider spoke with Dr. Ortega, recommended pt be admitted to the hospital for a biopsy of his mass in the morning. Call made to IR in regards to the best way to biopsy the mass. Per Dr. Berto garnett colonoscopy would likely be the better biopsy option as the mass at the ileo-cecal region. Discussed this with Dr. Ortega and he is okay with this form of biopsy. GI consulted and plan for colonoscopy tomorrow. If negative or no findings then will need evaluation by IR for biopsy or even surgery for direct visualization (4) Hypertension: Code(s): I10 - Essential (primary) hypertension Status: Acute Assessment and Plan: Per chart review, patient has been hypertensive since October. Ranging from 140- 180s systolic. - Started on losartan 25 mg daily - monitor (5) Hydronephrosis, right: Code(s): N13.30 - Unspecified hydronephrosis Status: Acute Assessment and Plan: Status post cystoscopy, right retrograde pyelography, right ureteral stent placement on 03/02/[address] Griffin ED provider spoke with urology on-call who advised patient's urinalysis abnormalities is probably due to uretal stent irritation and has no concerns for admission from a urology standpoint. Time Spent With Patient Time with patient: 25 - 35 minutes Subjective Date/time seen: 03/22/24 07:39 Interval history: 53 year old male with past medical history of GERD presents to the hospital for dark urine. Patient is pleasant lying in bed with family at bedside. He states that his dysuria and hematuria has resolved. He has no other complaints denying chest pain, shortness of breath, nausea/vomiting and abdominal pain. Call made to IR in regards to the best way to biopsy the mass. Per Dr. Berto garnett colonoscopy would likely be the better biopsy option as the mass at the ileo- cecal region. Discussed this with Dr. Ortega and he is okay with this form of biopsy. GI consulted and plan for colonoscopy tomorrow. Review of Systems Review of Systems: All systems reviewed & are unremarkable except as noted in HPI and below Exam Narrative: AF HR 80 RR 16 SpO2 98 BP 130/73 General: male in no acute respiratory distress who is nontoxic appearing, lying semi recumbent in bed. HEENT: Normocephalic. Atraumatic. Extraocular movement intact. Sclera clear and anicteric. No facial asymmetry. Chest: Lungs are clear to auscultation bilaterally. No wheezes or crackles. CV: Heart was regular rate and rhythm. S1/S2. No murmurs, gallops, or rubs. Abd: Abdomen was soft. Nontender. Nondistended. Positive bowel sounds. No organomegaly or masses. Ext: No clubbing, cyanosis, or edema. 2+ DP pulses bilaterally. Neuro: Patient is alert and oriented x4. Cranial nerves 2-12 are intact. Speech is clear. Objective Data Vital Signs Vital Signs: Vital Signs - 24 hr 03/21/24 17:24 03/21/24 20:47 03/22/24 01:29 Temperature 98.3 F 97.7 F 98.2 F Pulse Rate 81 76 75 Respiratory Rate 20 16 16 Blood Pressure 164/69 H 166/89 H 147/79 H Pulse Oximetry 100 99 99 Oxygen Delivery Room Air 03/22/24 05:15 Temperature 98.6 F Pulse Rate 80 Respiratory Rate 16 Blood Pressure 130/73 Pulse Oximetry 98 Oxygen Delivery Intake/Output Intake/Output: Intake & Output 03/19/24 03/20/24 03/21/24 03/22/24 23:59 23:59 23:59 23:59 Intake Total 1050 700 Output Total 900 Balance 1050 -200 Meds/Results Medications: Active Medications Generic Name Dose Route Start Last Admin Trade Name Freq PRN Reason Stop Dose Admin Acetaminophen 1,000 mg 03/22/24 02:34 Acetaminophen 500 Mg Tablet PO Q6H PRN Mild Pain (1-3) or Fever Calcium Carbonate 500 mg 03/22/24 03:17 Calcium Carbonate (Tums) 500 Mg (200 Mg Elemental) PO QID PRN Gastric Reflux Carbamazepine 800 mg 03/22/24 21:00 Carbamazepine Xr 200 Mg Tab.Er.12h PO HS JESSICA Hydromorphone HCl 0.5 mg 03/21/24 23:21 03/22/24 05:22 Hydromorphone Hcl Inj (*Crx) 1 Mg/Ml Syr IV PUSH 0.5 mg Q4H PRN Administration Pain Rated 7-10 Sodium Chloride 1,000 mls @ 125 mls/hr 03/21/24 23:25 03/22/24 01:00 Normal Saline Iv IV CONT 125 mls/hr .Q8H JESSICA Administration Meropenem 1 gm in 100 mls @ 200 mls/hr 03/21/24 23:25 03/22/24 06:35 IVPB Infused Q8HR JESSICA Infusion Vancomycin HCl 1,500 mg in 500 mls @ 250 mls/hr 03/22/24 13:00 Vancomycin 1,500 Mg/Ns 500 Ml IVPB Q12H [facility] Miscellaneous Information 1 each 03/22/24 00:01 (Methenamine Hippurate 1 Gram Tablet) Is Nonformulary, Can Patient Bring From Home? XX 04/21/24 00:00 CLARIFY [facility] Non-Formulary Medication 1 gm 03/22/24 09:00 Methenamine Hippurate PO 04/21/24 08:59 BID [facility] Ondansetron HCl 4 mg 03/22/24 02:34 Ondansetron Inj 4 Mg/2 Ml Vial IV PUSH Q6H PRN Nausea And Vomiting Pantoprazole Sodium 40 mg 03/22/24 09:00 Pantoprazole 40 Mg Tablet PO QAM [facility] Psyllium Hydrophilic Mucilloid 1 packet 03/22/24 09:00 Psyllium Powder Packet PO DAILY [facility] Simethicone 80 mg 03/22/24 03:17 Simethicone 80 Mg Tab.Chew PO QID PRN Gastric Reflux Radiology Results: ITS Impressions Abdomen/Pelvis CT 03/21/24 20:14 IMPRESSION: Mild esophagitis/gastritis. Wall thickening of the terminal ileum with cecal wall edema, may reflect ileitis/colitis. Primary malignancy at the terminal ileum should be considered in the differential. Mesenteric lymphadenopathy with a large conglomerate central mesenteric janet mass that is overall increased in size, consistent with lymphoma or metastatic disease. This mass appears to be occluding the superior mesenteric vein. Bladder wall thickening which may be secondary to cystitis, correlate with urinalysis. Chest X-Ray 03/21/24 20:28 IMPRESSION: No acute cardiopulmonary process. Labs Labs: Laboratory Results - last 24 hr 03/21/24 03/21/24 03/22/24 18:37 19:12 05:45 WBC 6.5 RBC 3.40 L Hgb 9.9 L Hct 31.0 L MCV 91.2 MCH 29.1 MCHC 31.9 L RDW 13.3 Plt Count 249 MPV 9.3 Immature Gran % (Auto) 0.3 Neut % (Auto) 67.3 Lymph % (Auto) 14.0 L Vernon % (Auto) 10.3 H Eos % (Auto) 7.2 H Baso % (Auto) 0.9 Lymph # (Auto) 0.91 Vernon # (Auto) 0.7 H Eos # (Auto) 0.5 H Baso # (Auto) 0.1 Abs Immat Gran (auto) 0.02 Absolute Neuts (auto) 4.4 Absolute Nucleated RBC 0.000 Nucleated RBC % 0.0 ESR 115 H PT 13.1 INR 1.0 APTT 29.9 Sodium 138 Potassium 4.3 Chloride 102 Carbon Dioxide 31 H Anion Gap 5 BUN 13 Creatinine 0.80 0.80 Estim Creat Clear Calc 15 109 Estimated GFR > 60 > 60 Glucose 97 Lactic Acid 0.9 Calcium 9.1 Total Bilirubin 0.3 AST 35 ALT 14 Alkaline Phosphatase 134 H Total Creatine Kinase 33 L Troponin I < 0.012 C-Reactive Protein 6.9 H Total Protein 7.0 Albumin 4.1 Lipase 90 Procalcitonin 0.1 Urine Color Red H Urine Appearance Cloudy H Urine pH 6.0 Ur Specific [place] 1.024 Urine Protein 3+ H Urine Glucose (UA) Negative Urine Ketones Negative Ur Blood (Man) 2+ H Urine Nitrate Negative Urine Bilirubin 1+ H Urine Urobilinogen 0.2 Add Ur Microanalysis Reviewed Leukocyte Esterase Rfl 2+ H Urine RBC >100 H Urine WBC 51-100 H Ur Squamous Epith Cells Few Urine Bacteria 1+ H Urine Casts 0-2 Quality VTE Prophylaxis VTE prophylaxis: mechanical ordered
[2024-03-22 08:06] LABS: Basophils Absolute Auto 0.1 K/mm3 (0.0-0.1); Basophils Percent Auto 0.8 % (0.2-1.2); Eosinophils Absolute Auto 0.4 K/mm3 (0-0.3); Eosinophils Percent Auto 6.1 % (0-4.4); Hematocrit 29.8 % (42.0-52.0); Hemoglobin 9.4 g/dL (14.0-18.0); Immature Granulocyte Absolute 0.03 K/mm3 (0.00-0.031); Immature Granulocyte Percent A 0.5 % (0-0.5); Lymphocytes Absolute Auto 0.81 K/mm3 (0.9-3.2); Mean Corpuscular HGB Conc 31.5 g/dl (32-36); Monocytes Absolute Auto 0.7 K/mm3 (0.1-0.6); Monocytes Percent Auto 10.6 % (2.6-8.5); Neutrophils Absolute Auto 4.3 K/mm3 (1.3-6.7); Platelet Count Result 236 k/mm3 (150-375); Red Blood Count 3.24 M/mm3 (4.6-6.20); Red Cell Distribution Width 13.4 % (11.5-14.5); White Blood Count 6.2 K/mm3 (4.5-10.0)
[2024-03-22 08:16] LABS: Alanine Aminotransferase 12 U/L (6-50); Albumin Level 3.7 g/dL (3.5-5.1); Alkaline Phosphatase 129 U/L (38-126); Anion Gap 5 mmol/L (4-12); Aspartate Amino Transferase 25 U/L (17-59); Bilirubin,Total 0.3 mg/dL (0.2-1.3); Blood Urea Nitrogen 10 mg/dL (9-20); Calcium 8.5 mg/dL (8.4-10.2); Carbon Dioxide 28 mmol/L (22-30); Chloride 107 mmol/L (98-107); Estimated CRCL calculation 109 ml/min; Estimated Glomerular Filt Rate > 60; Glucose 93 mg/dL (65-110); Potassium 3.7 mmol/L (3.4-5.0); Sodium 140 mmol/L (137-145)
--- NOTE | 2024-03-22 10:24 | PC.NURSE ---
RN spoke with Hospitalist Ciarra in regards to patient and family complaints. ER hospitalist wrote in their report that patient would have biopsy this morning [facility]. There have been no orders put in at this time.
[2024-03-22] MEDS: ONDANSETRON INJ 4 MG/2 ML VIAL IV PUSH ×2 (10:40→20:34)
[2024-03-22 14:18] VITALS: BP 183/88; PULSE 80; RESP 16; TEMP 36.1; O2SAT 97
[2024-03-22] MEDS: ACETAMINOPHEN 500 MG TABLET 1000 MG PO (14:45)
--- NOTE | 2024-03-22 15:07 | WPDGICN ---
Assessment and Plan Assessment and plan (1) Retroperitoneal lymphadenopathy: Code(s): R59.0 - Localized enlarged lymph nodes Status: Acute Assessment and Plan: could be lymphoma or metastatic disease will get LDH and ask hem-onc to evaluate this was also causing compression of ureter and he is post stent placement, here with uti and hematuria with worsening pain will do colonoscopy to assess right colon/ileum, if negative or no findings then will need evaluation by IR for biopsy or even surgery for direct visualization (2) Abnormal CT scan, colon: Code(s): R93.3 - Abnormal findings on diagnostic imaging of other parts of digestive tract Status: Acute Assessment and Plan: colonoscopy tomorrow (3) Hematuria: Code(s): R31.9 - Hematuria, unspecified Status: Acute Assessment and Plan: by urology (4) Urinary tract infection: Code(s): N39.0 - Urinary tract infection, site not specified Status: Acute Assessment and Plan: on abx (5) Hydronephrosis, right: Code(s): N13.30 - Unspecified hydronephrosis Status: Acute (6) Acute occlusion of mesenteric vein: Code(s): K55.019 - Acute (reversible) ischemia of small intestine, extent unspecified Status: Acute GI Consult Note Consult date/time: 03/22/24 15:07 Reason for consult: mesenteric lymphadenopathy, abnormal ileum by CT scan HPI: Angus Jain is a 53 year old male who was evaluated by urologist because recurrent urinary tract infection, had cystoscopy was normal but CT scan of the abdomen pelvis without contrast shows marked retroperitoneal adenopathy with right ureteral obstruction and underwent stent placement. He is here after severe lower abdominal pain and new onset of gross hematuria, denies fever but had night sweat. Diagnosed with UTI but also noted to have in repeat CT scan wall thickening of the terminal ileum with cecal wall edema, may reflect ileitis/colitis. Primary malignancy at the terminal ileum should be considered in the differential. Also mesenteric lymphadenopathy with a large conglomerate central mesenteric janet mass that is overall increased in size, consistent with lymphoma or metastatic disease. This mass appears to be occluding the superior mesenteric vein. Bladder wall thickening which may be secondary to cystitis, correlate with urinalysis. Had colonoscopy [address] Staton that was normal and EGD few months ago with benign esophageal ring that was dilated, also some gastritis. Review of Systems Constitutional: Constitutional: Reports night sweats Eyes: Eyes: Denies blurry vision ENT: Reports Normal hearing present Cardiovascular: Cardiovascular: Denies chest pain Respiratory: Respiratory: Denies cough Gastrointestinal: Gastrointestinal: Reports abdominal pain and Reports constipation (chronic constipation since had accident many years ago) Genitourinary: Genitourinary: Reports hematuria Musculoskeletal: Musculoskeletal: Denies arthralgias Integumentary/Breasts: Skin/Breast: Denies dry skin Neurologic: Denies Abnormal speech present Psychiatric: Psychiatric: Denies behavioral changes [facility] Past Medical History Medical History (Updated 03/22/24 @ 15:13 by Pranav Garcai MD) Abnormal CT scan, colon Obesity GERD (gastroesophageal reflux disease) Surgical History Surgical History History of ear surgery History of surgery on lower extremity History of neck surgery Family History Family History Grandparent Diabetes mellitus Social History Social History Smoking packs per day: 1 Smoking cigarettes per day: 20.0 Years smoked: 25 Smoking pack-years: 25.00 Smoking status: Former smoker Alcohol use details: BEERVeronique Substance use: never Substance use type: does not use Do You Feel Safe in your Home?: Yes Lack of Transportation: No Lack of Food: Never True Current Housing: I Have Housing Concerned About Future Housing: No Difficulty Paying Gas/Electric Bills: No Difficulty Paying for Meds: No Currently Unemployed: No Education: Associate Degree Difficulty w/ Childcare or Family Care: No Living arrangements: with family Occupation/Education: occupation Additional occupation/education comments: [employer]- [employer] care concerns: No Meds Home Medications and Allergies Home Medications ?Medication ?Instructions ?Recorded ?Confirmed ?Type ascorbic acid (vitamin C) 1,000 mg 1 g PO BID 08/13/21 03/22/24 History tablet carbamazepine 200 mg 800 mg PO HS 08/13/21 03/22/24 History tablet,extended release,12 hr (Tegretol XR) psyllium husk 3.4 gram/5.4 gram 1 tbsp PO DAILY 08/13/21 03/22/24 History oral powder (Metamucil) acetaminophen 325 mg tablet 650 mg PO Q4H PRN Pain 10/27/23 03/22/24 History (Tylenol) calcium carbonate 500 1 tablet PO PRN PRN Gastric Reflux 10/27/23 03/22/24 History mg-simethicone 20 mg chewable tablet diphenhydramine HCl 25 mg capsule 12.5 mg PO HS 10/27/23 03/22/24 History (Benadryl) famotidine 10 mg chewable tablet 10 mg PO PRN PRN REFLUX 10/27/23 03/22/24 History furosemide 20 mg tablet 20 mg PO DAILY 10/27/23 03/22/24 History ibuprofen 200 mg tablet (Advil) 200 mg PO Q6H PRN Pain 10/27/23 03/22/24 History methenamine hippurate 1 gram tablet 1 g PO BID 10/27/23 03/22/24 History esomeprazole magnesium 20 mg 20 mg PO DAILY 03/01/24 03/22/24 History capsule,delayed release (Nexium) Allergies Allergy/AdvReac Type Severity Reaction Status Date / Time Sulfa (Sulfonamide AdvReac Intermediate Other Verified 03/22/24 01:05 Antibiotics) Vital Signs Vital Signs - 24 hr 03/21/24 17:24 03/21/24 20:47 03/22/24 01:29 Temperature 98.3 F 97.7 F 98.2 F Pulse Rate 81 76 75 Respiratory Rate 20 16 16 Blood Pressure 164/69 H 166/89 H 147/79 H Pulse Oximetry 100 99 99 Oxygen Delivery Room Air 03/22/24 05:15 03/22/24 10:40 03/22/24 14:18 Temperature 98.6 F 97.0 F L Pulse Rate 80 80 Respiratory Rate 16 16 Blood Pressure 130/73 183/88 H Pulse Oximetry 98 97 Oxygen Delivery Room Air Exam Const: General: comfortable and no acute distress HENMT: Face/Nose/Sinus: Normal nares present Eyes: General: appearance normal, both eyes and all related structures Neck: Neck: supple Resp: Auscultation: clear to auscultation bilaterally Cardio: Rate: regular rate Rhythm: regular rhythm GI: Inspection: distended GI Palp: Yes Soft to palpation and Yes Tenderness to palpation present (GI) (mild ttp in lower abdomen, no rebound) Skin: General skin exam: normal color Neuro: Speech: normal speech Extrem: General: normal to inspection Psych: Mental Status: mental status grossly normal Results Labs 03/22/24 05:42 03/22/24 05:45 Labs: Short CBC 03/21/24 03/22/24 Range/Units 18:37 05:42 WBC 6.5 6.2 (4.5-10.0) K/mm3 Hgb 9.9 L 9.4 L (14.0-18.0) g/dL Hct 31.0 L 29.8 L (42.0-52.0) % Plt Count 249 236 (150-375) k/mm3 BMP 03/21/24 03/22/24 03/22/24 18:37 05:42 05:45 Sodium 138 140 Potassium 4.3 3.7 Chloride 102 107 Carbon Dioxide 31 H 28 BUN 13 10 Creatinine 0.80 0.80 0.80 Glucose 97 93 Calcium 9.1 8.5 Cardiac Enzymes 03/21/24 Range/Units 18:37 Total Creatine Kinase 33 L (55-170) U/L Troponin I < 0.012 (0.000-0.034) ng/mL Liver Function 03/21/24 03/22/24 Range/Units 18:37 05:42 Total Bilirubin 0.3 0.3 (0.2-1.3) mg/dL AST 35 25 (17-59) U/L ALT 14 12 (6-50) U/L Alkaline Phosphatase 134 H 129 H (38-126) U/L Albumin 4.1 3.7 (3.5-5.1) g/dL Urine 03/21/24 Range/Units 18:37 Urine Color Red H (Yellow) Urine Appearance Cloudy H (Clear) Urine pH 6.0 (5.0-9.0) Ur Specific [place] 1.024 (1.001-1.035) Urine Protein 3+ H (Negative) mg/dL Urine Glucose (UA) Negative (Negative) mg/dL
[2024-03-22] MEDS: BISACODYL 5 MG TABLET EC 20 MG PO (16:57)
[2024-03-22] MEDS: VANCOMYCIN 1,500 MG/NS 500 ML 1,500 MG/500 ML BAG 250 MG IVPB (16:57)
[2024-03-22] MEDS: PEG (High)/E-LYTE SOLN 4,000 ML BTL 4000 ML PO (16:57)
--- NOTE | 2024-03-22 19:11 | WPDONCCN ---
Assessment and Plan Assessment and plan (1) Retroperitoneal lymphadenopathy: Code(s): R59.0 - Localized enlarged lymph nodes Status: Acute Assessment and Plan: Abdominal/pelvic wall lymphadenopathy. Patient is the obese male came into the hospital with hematuria. He placement. CT scan showed 15 6 and cases the traversing right ureter and superior mesenteric artery and multiple branches. There was also multiple enlarged adjacent mesenteric lymph nodes. There was also thickening of the terminal ileum. Clinically he denies any night sweats fevers and chills. He has lost some weight recently. He has no previous history of malignancy. These findings are worrisome for lymphoma. GI consultation and plan for colonoscopy and possible biopsy noted. I will order flow cytometric analysis for lymphoma as well as LDH I have also reviewed the PET scan done at [facility]. There was no evidence of lymphadenopathy in the chest. Patient was provided my office information for follow-up. I have answered all the questions the patient and the satisfaction. HPI Data of Consult Date/Time: 03/22/24 19:11 Requesting Physician: Karishma Boggs PA-C Primary Care Provider: Jose Mo, Consult Narrative Narrative: Angus Jain is a 53 year old male with history of obesity cough stress official reflux disease status post ureter stent placement recently came into the hospital with episode of hematuria. He denies any fevers and some. He has lost some weight recently. CT scan showed pelvic and mesenteric lymphadenopathy. CT scan showed 15.3 cm lobulated central and trick mass which encases the traversing right ureter, superior mesenteric artery and multiple proximal branches and occludes the superior mesenteric vein. There was multiple enlarged adjacent mesenteric lymph nodes surrounding the mass. There was bladder wall thickening. There was also evidence of mild esophagitis and gastritis along terminal ileum with cecal wall edema reflecting ileitis and colitis. He denies diarrhea. Denies any melena hematochezia. Review of Systems Review of Systems: Aspirate HPI otherwise negative PMFSH Past Medical History Medical History (Updated 03/22/24 @ 15:38 by Karishma Boggs PA-C) Abnormal CT scan, colon Obesity GERD (gastroesophageal reflux disease) Surgical History Surgical History History of ear surgery History of surgery on lower extremity History of neck surgery Family History Family History Grandparent Diabetes mellitus Social History Social History Smoking packs per day: 1 Smoking cigarettes per day: 20.0 Years smoked: 25 Smoking pack-years: 25.00 Smoking status: Former smoker Alcohol use details: BEERS Substance use: never Substance use type: does not use Do You Feel Safe in your Home?: Yes Lack of Transportation: No Lack of Food: Never True Current Housing: I Have Housing Concerned About Future Housing: No Difficulty Paying Gas/Electric Bills: No Difficulty Paying for Meds: No Currently Unemployed: No Education: Associate Degree Difficulty w/ Childcare or Family Care: No Living arrangements: with family Occupation/Education: occupation Additional occupation/education comments: [employer] [facility] concerns: No Meds Home Medications and Allergies Home Medications ?Medication ?Instructions ?Recorded ?Confirmed ?Type ascorbic acid (vitamin C) 1,000 mg 1 g PO BID 08/13/21 03/22/24 History tablet carbamazepine 200 mg 800 mg PO HS 08/13/21 03/22/24 History tablet,extended release,12 hr (Tegretol XR) psyllium husk 3.4 gram/5.4 gram 1 tbsp PO DAILY 08/13/21 03/22/24 History oral powder (Metamucil) acetaminophen 325 mg tablet 650 mg PO Q4H PRN Pain 10/27/23 03/22/24 History (Tylenol) calcium carbonate 500 1 tablet PO PRN PRN Gastric Reflux 10/27/23 03/22/24 History mg-simethicone 20 mg chewable tablet diphenhydramine HCl 25 mg capsule 12.5 mg PO HS 10/27/23 03/22/24 History (Benadryl) famotidine 10 mg chewable tablet 10 mg PO PRN PRN REFLUX 10/27/23 03/22/24 History furosemide 20 mg tablet 20 mg PO DAILY 10/27/23 03/22/24 History ibuprofen 200 mg tablet (Advil) 200 mg PO Q6H PRN Pain 10/27/23 03/22/24 History methenamine hippurate 1 gram tablet 1 g PO BID 10/27/23 03/22/24 History esomeprazole magnesium 20 mg 20 mg PO DAILY 03/01/24 03/22/24 History capsule,delayed release (Nexium) Allergies Allergy/AdvReac Type Severity Reaction Status Date / Time Sulfa (Sulfonamide AdvReac Intermediate Other Verified 03/22/24 01:05 Antibiotics) Vital Signs Vital Signs - 24 hr 03/21/24 20:47 03/22/24 01:29 03/22/24 05:15 Temperature 36.5 C 36.8 C 37.0 C Pulse Rate 76 75 80 Respiratory Rate 16 16 16 Blood Pressure 166/89 H 147/79 H 130/73 Pulse Oximetry 99 99 98 Oxygen Delivery 03/22/24 10:40 03/22/24 14:18 Temperature 36.1 C L Pulse Rate 80 Respiratory Rate 16 Blood Pressure 183/88 H Pulse Oximetry 97 Oxygen Delivery Room Air Exam Neck: Other: No lymphadenopathy Chest: Other: Lungs clear to auscultation bilaterally Cardio: Other: Cardiovascular regular rate rhythm no murmurs GI: Other: Distended bowel sounds are positive no splenomegaly Extrem: Other: No edema Results Labs 03/22/24 05:42 03/22/24 05:45 Labs: Short CBC 03/21/24 03/22/24 Range/Units 18:37 05:42 WBC 6.5 6.2 (4.5-10.0) K/mm3 Hgb 9.9 L 9.4 L (14.0-18.0) g/dL Hct 31.0 L 29.8 L (42.0-52.0) % Plt Count 249 236 (150-375) k/mm3 [facility] 03/22/24 03/22/24 05:42 05:45 Sodium 140 Potassium 3.7 Chloride 107 Carbon Dioxide 28 BUN 10 Creatinine 0.80 0.80 Glucose 93 Calcium 8.5 Cardiac Enzymes 03/21/24 Range/Units 18:37 Total Creatine Kinase 33 L (55-170) U/L Troponin I < 0.012 (0.000-0.034) ng/mL Liver Function 03/22/24 Range/Units 05:42 Total Bilirubin 0.3 (0.2-1.3) mg/dL AST 25 (17-59) U/L ALT 12 (6-50) U/L Alkaline Phosphatase 129 H (38-126) U/L Albumin 3.7 (3.5-5.1) g/dL Urine 03/21/24 Range/Units 18:37 Urine Color Red H (Yellow) Urine Appearance Cloudy H (Clear) Urine pH 6.0 (5.0-9.0) Ur Specific [place] 1.024 (1.001-1.035) Urine Protein 3+ H (Negative) mg/dL Urine Glucose (UA) Negative (Negative) mg/dL
[2024-03-22 19:41] LABS: Lactate Dehydrogenase 301 U/L (120-246)
[2024-03-22] MEDS: ACETAMINOPHEN/BUTALBITAL/CAFFEINE 325-50-40 MG TABLET (FIORICET) 1 TAB PO (19:51)
[2024-03-22 20:07] VITALS: PULSE 74; RESP 16; TEMP 36.4; O2SAT 100
[2024-03-22] MEDS: SIMETHICONE 80 MG TAB.CHEW PO (22:53)
[2024-03-23] VITALS (8 sets, daily range): BP systolic 115–169; BP diastolic 52–85; PULSE 76–86; RESP 13–20; TEMP 36.4–36.8; O2SAT 98–100
[2024-03-23] MEDS: MAGNESIUM CITRATE 300 ML BTL PO (01:40)
[2024-03-23] MEDS: SIMETHICONE 80 MG TAB.CHEW PO (02:50)
[2024-03-23] MEDS: VANCOMYCIN 1,500 MG/NS 500 ML 1,500 MG/500 ML BAG 250 MG IVPB (03:16)
[2024-03-23] MEDS: MEROPENEM 1 GM/NS 100 ML 1 GM/100 ML BAG IVPB ×2 (05:23→14:25)
[2024-03-23 05:42] LABS: Basophils Absolute Auto 0.1 K/mm3 (0.0-0.1); Basophils Percent Auto 0.6 % (0.2-1.2); Eosinophils Absolute Auto 0.5 K/mm3 (0-0.3); Eosinophils Percent Auto 5.5 % (0-4.4); Hematocrit 31.6 % (42.0-52.0); Hemoglobin 9.8 g/dL (14.0-18.0); Immature Granulocyte Absolute 0.03 K/mm3 (0.00-0.031); Immature Granulocyte Percent A 0.4 % (0-0.5); Lymphocytes Absolute Auto 0.72 K/mm3 (0.9-3.2); Lymphocytes Percent Auto 8.6 % (18.3-44.2); Mean Corpuscular Hemoglobin 28.4 pg (26-34); Mean Corpuscular Volume 91.6 fl (80-100); Mean Platelet Volume 9.3 fl (7.4-10.4); Monocytes Absolute Auto 0.8 K/mm3 (0.1-0.6); Monocytes Percent Auto 9.8 % (2.6-8.5); Neutrophils Absolute Auto 6.3 K/mm3 (1.3-6.7); Neutrophils Percent Auto 75.1 % (45.5-73.1); Platelet Count Result 252 k/mm3 (150-375); Red Blood Count 3.45 M/mm3 (4.6-6.20); Red Cell Distribution Width 13.2 % (11.5-14.5); White Blood Count 8.4 K/mm3 (4.5-10.0)
[2024-03-23 05:54] LABS: Alanine Aminotransferase 14 U/L (6-50); Albumin Level 4.1 g/dL (3.5-5.1); Alkaline Phosphatase 154 U/L (38-126); Anion Gap 4 mmol/L (4-12); Aspartate Amino Transferase 26 U/L (17-59); Bilirubin,Total 0.4 mg/dL (0.2-1.3); Blood Urea Nitrogen 9 mg/dL (9-20); Carbon Dioxide 31 mmol/L (22-30); Chloride 104 mmol/L (98-107); Estimated CRCL calculation 98 ml/min; Estimated Glomerular Filt Rate > 60; Glucose 117 mg/dL (65-110); Potassium 4.5 mmol/L (3.4-5.0); Sodium 139 mmol/L (137-145)
--- NOTE | 2024-03-23 07:39 | P.PNIM_ITS ---
Progress Note: A&P Assessment and Plan (1) Urinary tract infection: Code(s): N39.0 - Urinary tract infection, site not specified Status: Acute Assessment and Plan: ED provider spoke with urology on-call who advised patient's urinalysis abnormalities is probably due to uretal stent irritation and has no concerns for admission from a urology standpoint. - UA: red cloudy appearance with 3+ protein, 2+ blood, 1+ bili, 2+ leukocytes, >100 RBC, 51-100 WBC, 1+ bacteria. - UC obtained on 03/21/24: Negative - Blood cultures obtained on 03/21/24: pending - no previous micro to be reviewed - started on vanc and yuriy on 03/21, per patients he follows with [facility] for resistant UTIs that have required assisted abx in the past. Abx discontinued on 03/23 as culture was negative. (2) Acute occlusion of mesenteric vein: Code(s): K55.019 - Acute (reversible) ischemia of small intestine, extent unspecified Status: Acute Assessment and Plan: - CT abdomen/pelvis: Wall thickening of the terminal ileum with cecal wall edema, may reflect ileitis/colitis. Primary malignancy at the terminal ileum should be considered in the differential. Mesenteric lymphadenopathy with a large conglomerate central mesenteric janet mass that is overall increased in size, consistent with lymphoma or metastatic disease. This mass appears to be occluding the superior mesenteric vein. Bladder wall thickening which may be secondary to cystitis, correlate with urinalysis. - Heme/onc consulted, appreciate recommendations S/p colonoscopy with biopsies on 03/[address] Riggs. Findings: partially obstructing malignant appearing ulcerating mass at terminal ileum. Surgery consulted as patient may require a right hemicolectomy (3) Retroperitoneal lymphadenopathy: Code(s): R59.0 - Localized enlarged lymph nodes Status: Acute Assessment and Plan: - CT abdomen/pelvis: Wall thickening of the terminal ileum with cecal wall edema, may reflect ileitis/colitis. Primary malignancy at the terminal ileum should be considered in the differential. Mesenteric lymphadenopathy with a large conglomerate central mesenteric janet mass that is overall increased in size, consistent with lymphoma or metastatic disease. This mass appears to be occluding the superior mesenteric vein. Bladder wall thickening which may be secondary to cystitis, correlate with urinalysis. - hem/onc consulted, appreciate recommendations S/p colonoscopy with biopsies on 03/[address] Riggs. Findings: partially obstructing malignant appearing ulcerating mass at terminal ileum. Surgery consulted as patient may require a right hemicolectomy (4) Hypertension: Code(s): I10 - Essential (primary) hypertension Status: Acute Assessment and Plan: Per chart review, patient has been hypertensive since October. Ranging from 140- 180s systolic. - Started on losartan 25 mg daily - monitor (5) Hydronephrosis, right: Code(s): N13.30 - Unspecified hydronephrosis Status: Acute Assessment and Plan: Status post cystoscopy, right retrograde pyelography, right ureteral stent placement on 03/02/[address] Griffin ED provider spoke with urology on-call who advised patient's urinalysis abnormalities is probably due to uretal stent irritation and has no concerns for admission from a urology standpoint. Time Spent With Patient Time with patient: 25 - 35 minutes Subjective Date/time seen: 03/23/24 07:39 Interval history: 53 year old male with past medical history of GERD presents to the hospital for dark urine. Patient is pleasant lying comfortably in bed. He states that he is doing well today, he does endorse slight abdominal cramping that he related to the bowel prep. No other complaints denying chest pain, shortness of breath, nausea/vomiting. Patient underwent a colonoscopy with biopsies, findings of a partially obstructing malignant appearing ulcerating mass at terminal ileum. Surgery consulted as patient may require a right hemicolectomy. Review of Systems Review of Systems: All systems reviewed & are unremarkable except as noted in HPI and below Exam Narrative: AF HR 77 RR 13 Spo2 99 BP 130/62 General: male in no acute respiratory distress who is nontoxic appearing, lying semi recumbent in bed. HEENT: Normocephalic. Atraumatic. Extraocular movement intact. Sclera clear and anicteric. No facial asymmetry. Chest: Lungs are clear to auscultation bilaterally. No wheezes or crackles. CV: Heart was regular rate and rhythm. S1/S2. No murmurs, gallops, or rubs. Abd: Abdomen was soft. Nontender. Nondistended. Positive bowel sounds. No organomegaly or masses. Ext: No clubbing, cyanosis, or edema. 2+ DP pulses bilaterally. Neuro: Patient is alert and oriented x4. Cranial nerves 2-12 are intact. Speech is clear. Objective Data Vital Signs Vital Signs: Vital Signs - 24 hr 03/22/24 10:40 03/22/24 14:18 03/22/24 19:57 Temperature 97.0 F L Pulse Rate 80 Respiratory Rate 16 Blood Pressure 183/88 H Pulse Oximetry 97 Oxygen Delivery Room Air Room Air 03/22/24 20:07 03/23/24 00:00 03/23/24 04:24 Temperature 97.6 F 98.3 F Pulse Rate 74 76 Respiratory Rate 16 16 Blood Pressure 158/82 H 165/83 H Pulse Oximetry 100 100 Oxygen Delivery Intake/Output Intake/Output: Intake & Output 03/20/24 03/21/24 03/22/24 03/23/24 23:59 23:59 23:59 23:59 Intake Total 1050 3880 1300 Output Total 2000 650 Balance 1050 1880 650 Meds/Results Medications: Active Medications Generic Name Dose Route Start Last Admin Trade Name Freq PRN Reason Stop Dose Admin Acetaminophen 1,000 mg 03/22/24 02:34 03/22/24 14:45 Acetaminophen 500 Mg Tablet PO 1,000 mg Q6H PRN Administration Mild Pain (1-3) or Fever Calcium Carbonate 500 mg 03/22/24 03:17 Calcium Carbonate (Tums) 500 Mg (200 Mg Elemental) PO QID PRN Gastric Reflux Carbamazepine 800 mg 03/22/24 21:00 03/22/24 19:51 Carbamazepine Xr 200 Mg Tab.Er.12h PO 800 mg HS JESSICA Administration Hydromorphone HCl 0.5 mg 03/21/24 23:21 03/22/24 05:22 Hydromorphone Hcl Inj (*Crx) 1 Mg/Ml Syr IV PUSH 0.5 mg Q4H PRN Administration Pain Rated 7-10 Meropenem 1 gm in 100 mls @ 200 mls/hr 03/21/24 23:25 03/23/24 05:23 IVPB 200 mls/hr Q8HR JESSICA Administration Vancomycin HCl 1,500 mg in 500 mls @ 250 mls/hr 03/22/24 16:00 03/23/24 05:16 Vancomycin 1,500 Mg/Ns 500 Ml IVPB Infused Q12H JESSICA Infusion Losartan Potassium 25 mg 03/23/24 09:00 Losartan Potassium 25 Mg Tablet PO DAILY JESSICA Ondansetron HCl 4 mg 03/22/24 02:34 03/22/24 20:34 Ondansetron Inj 4 Mg/2 Ml Vial IV PUSH 4 mg Q6H PRN Administration Nausea And Vomiting Pantoprazole Sodium 40 mg 03/22/24 09:00 03/22/24 08:08 Pantoprazole 40 Mg Tablet PO Not Given QAM JESSICA Psyllium Hydrophilic Mucilloid 1 packet 03/22/24 09:00 03/22/24 08:08 Psyllium Powder Packet PO Not Given DAILY JESSICA Simethicone 80 mg 03/22/24 03:17 03/23/24 02:50 Simethicone 80 Mg Tab.Chew PO 80 mg QID PRN Administration Gastric Reflux Radiology Results: ITS Impressions Abdomen/Pelvis CT 03/21/24 20:14 IMPRESSION: Mild esophagitis/gastritis. Wall thickening of the terminal ileum with cecal wall edema, may reflect ileitis/colitis. Primary malignancy at the terminal ileum should be considered in the differential. Mesenteric lymphadenopathy with a large conglomerate central mesenteric janet mass that is overall increased in size, consistent with lymphoma or metastatic disease. This mass appears to be occluding the superior mesenteric vein. Bladder wall thickening which may be secondary to cystitis, correlate with urinalysis. Chest X-Ray 03/21/24 20:28 IMPRESSION: No acute cardiopulmonary process. Labs Labs: Laboratory Results - last 24 hr 03/22/24 03/23/24 05:42 05:26 WBC 6.2 8.4 RBC 3.24 L 3.45 L Hgb 9.4 L 9.8 L Hct 29.8 L 31.6 L MCV 92.0 91.6 MCH 29.0 28.4 MCHC 31.5 L 31.0 L RDW 13.4 13.2 Plt Count 236 252 MPV 10.0 9.3 Immature Gran % (Auto) 0.5 0.4 Neut % (Auto) 69.0 75.1 H Lymph % (Auto) 13.0 L 8.6 L [place] % (Auto) 10.6 H 9.8 H Eos % (Auto) 6.1 H 5.5 H Baso % (Auto) 0.8 0.6 Lymph # (Auto) 0.81 L 0.72 L [place] # (Auto) 0.7 H 0.8 H Eos # (Auto) 0.4 H 0.5 H Baso # (Auto) 0.1 0.1 Abs Immat Gran (auto) 0.03 0.03 Absolute Neuts (auto) 4.3 6.3 Absolute Nucleated RBC 0.000 0.000 Nucleated RBC % 0.0 0.0 Sodium 140 139 Potassium 3.7 4.5 Chloride 107 104 Carbon Dioxide 28 31 H Anion Gap 5 4 BUN 10 9 Creatinine 0.80 0.90 Estim Creat Clear Calc 109 98 Estimated GFR > 60 > 60 Glucose 93 117 H Calcium 8.5 9.0 Total Bilirubin 0.3 0.4 AST 25 26 ALT 12 14 Alkaline Phosphatase 129 H 154 H Lactate Dehydrogenase 301 H Total Protein 7.0 7.0 Albumin 3.7 4.1 Quality VTE Prophylaxis VTE prophylaxis: mechanical ordered
[2024-03-23] MEDS: ONDANSETRON INJ 4 MG/2 ML VIAL IV PUSH (08:07)
[2024-03-23 09:16] LABS: Lactate Dehydrogenase 308 U/L (120-246)
--- NOTE | 2024-03-23 12:51 | PC.NURSE ---
Samra off of unit to GI lab
[2024-03-23] MEDS: LACTATED RINGERS 1,000 ML 150 ML IV CONT (13:22)
--- NOTE | 2024-03-23 13:22 | WPDANESEPPF ---
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 Patient Data Age: 53 Gender: M Height: 1.73 m Weight: 102.7 kg Last Vital Signs Temp 36.8 C 03/23/24 04:24 Pulse 76 03/23/24 04:24 Resp 16 03/23/24 04:24 BP 165/83 H 03/23/24 04:24 Pulse Ox 100 03/23/24 04:24 O2 Del Method Room Air 03/23/24 08:30 Allergies Allergy/AdvReac Type Severity Reaction Status Date / Time Sulfa (Sulfonamide AdvReac Intermediate Other Verified 03/23/24 13:08 Antibiotics) Home Medications ?Medication ?Instructions ?Recorded ?Confirmed ?Type ascorbic acid (vitamin C) 1,000 mg 1 g PO BID 08/13/21 03/22/24 History tablet carbamazepine 200 mg 800 mg PO HS 08/13/21 03/22/24 History tablet,extended release,12 hr (Tegretol XR) psyllium husk 3.4 gram/5.4 gram 1 tbsp PO DAILY 08/13/21 03/22/24 History oral powder (Metamucil) acetaminophen 325 mg tablet 650 mg PO Q4H PRN Pain 10/27/23 03/22/24 History (Tylenol) calcium carbonate 500 1 tablet PO PRN PRN Gastric Reflux 10/27/23 03/22/24 History mg-simethicone 20 mg chewable tablet diphenhydramine HCl 25 mg capsule 12.5 mg PO HS 10/27/23 03/22/24 History (Benadryl) famotidine 10 mg chewable tablet 10 mg PO PRN PRN REFLUX 10/27/23 03/22/24 History furosemide 20 mg tablet 20 mg PO DAILY 10/27/23 03/22/24 History ibuprofen 200 mg tablet (Advil) 200 mg PO Q6H PRN Pain 10/27/23 03/22/24 History methenamine hippurate 1 gram tablet 1 g PO BID 10/27/23 03/22/24 History esomeprazole magnesium 20 mg 20 mg PO DAILY 03/01/24 03/22/24 History capsule,delayed release (Nexium) Laboratory Tests 03/22/24 03/23/24 03/23/24 05:42 05:26 08:45 WBC 8.4 K/mm3 (4.5-10.0) RBC 3.45 L M/mm3 (4.6-6.20) Hgb 9.8 L g/dL (14.0-18.0) Hct 31.6 L % (42.0-52.0) MCV 91.6 fl (80-100) MCH 28.4 pg (26-34) MCHC 31.0 L g/dl (32-36) RDW 13.2 % (11.5-14.5) Plt Count 252 k/mm3 (150-375) MPV 9.3 fl (7.4-10.4) Immature Gran % (Auto) 0.4 % (0-0.5) Neut % (Auto) 75.1 H % (45.5-73.1) Lymph % (Auto) 8.6 L % (18.3-44.2) [place] % (Auto) 9.8 H % (2.6-8.5) Eos % (Auto) 5.5 H % (0-4.4) Baso % (Auto) 0.6 % (0.2-1.2) Lymph # (Auto) 0.72 L K/mm3 (0.9-3.2) [place] # (Auto) 0.8 H K/mm3 (0.1-0.6) Eos # (Auto) 0.5 H K/mm3 (0-0.3) Baso # (Auto) 0.1 K/mm3 (0.0-0.1) Abs Immat Gran (auto) 0.03 K/mm3 (0.00-0.031) Absolute Neuts (auto) 6.3 K/mm3 (1.3-6.7) Absolute Nucleated RBC 0.000 K/mm3 (0.0-0.012) Nucleated RBC % 0.0 % (0.0-0.2) Sodium 139 mmol/L (137-145) Potassium 4.5 mmol/L (3.4-5.0) Chloride 104 mmol/L (98-107) Carbon Dioxide 31 H mmol/L (22-30) Anion Gap 4 mmol/L (4-12) BUN 9 mg/dL (9-20) Creatinine 0.90 mg/dL (0.7-1.3) Estim Creat Clear Calc 98 ml/min Estimated GFR > 60 (59 - ) Glucose 117 H mg/dL (65-110) Calcium 9.0 mg/dL (8.4-10.2) Total Bilirubin 0.4 mg/dL (0.2-1.3) AST 26 U/L (17-59) ALT 14 U/L (6-50) Alkaline Phosphatase 154 H U/L (38-126) Lactate Dehydrogenase 301 H U/L 308 H U/L (120-246) (120-246) Total Protein 7.0 g/dL (6.3-8.2) Albumin 4.1 g/dL (3.5-5.1) Patient hx anesthesia problems: none Family hx anesthesia problems: none Results Review: All pre-operative results and documents have been reviewed as part of the pre-operative evaluation. [facility] Past Medical History Medical History Abnormal CT scan, colon Obesity GERD (gastroesophageal reflux disease) Surgical History Surgical History History of ear surgery History of surgery on lower extremity History of neck surgery Family History Family History Grandparent Diabetes mellitus Social History Social History Smoking packs per day: 1 Smoking cigarettes per day: 20.0 Years smoked: 25 Smoking pack-years: 25.00 Smoking status: Former smoker Alcohol use details: BEERS Substance use: never Substance use type: does not use Do You Feel Safe in your Home?: Yes Lack of Transportation: No Lack of Food: Never True Current Housing: I Have Housing Concerned About Future Housing: No Difficulty Paying Gas/Electric Bills: No Difficulty Paying for Meds: No Currently Unemployed: No Education: Associate Degree Difficulty w/ Childcare or Family Care: No Living arrangements: with family Occupation/Education: occupation Additional occupation/education comments: [employer] Spiritual care concerns: No Anes - Eval Final PreProcedure Day of Procedure 03/23/24 13:22 Patient weight: obese Heart: regular rate and rhythm Lungs: clear to auscultation Airway: Mallampati scale class III Neurological: alert and oriented Last oral intake: >/= 8 hours ASA classification: III Emergent: no Anesthetic plan: proceed Anesthesia type and monitoring: general GIVS Results Review: All pre-operative results and documents have been reviewed as part of the pre-operative evaluation. Informed Consent: The patient's anesthetic plan and its attendant risks and benefits were discussed with the patient/family/POA. Questions were solicited and answers provided to the satisfaction of the patient/family/POA.
[2024-03-23] MEDS: ACETAMINOPHEN 500 MG TABLET 1000 MG PO (14:36)
--- NOTE | 2024-03-23 14:49 | PC.NURSE ---
RN spoke with Lorin with [facility]'s office in regards to consult. RN asked Lorin to have Tia or [facility]en call RN today due to GI keeping patient NPO and stating patient may have surgery. RN is waiting to hear back from surgery at this time.
[2024-03-23 15:29] LABS: Vancomycin Trough 15.2 ug/mL (10.0-20.0)
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
[2024-03-23] MEDS: ACETAMINOPHEN/BUTALBITAL/CAFFEINE 325-50-40 MG TABLET (FIORICET) 1 TAB PO (18:36)
--- NOTE | 2024-03-23 18:49 | PC.NURSE ---
RN spoke with the [facility] transfer no available beds at this time.
[2024-03-23] MEDS: CARBAMAZEPINE XR 200 MG TAB.ER.12H 800 MG PO (21:00)
--- NOTE | 2024-03-23 21:43 | PM.EVENT ---
Event Note Event Note Event Note: The patient has been accepted to the oncology floor at [facility]. Case was discussed with Dr. Vibha Heath who would be the accepting physician. The patient and his were notified and transfer will be initiated once bed is available.
[2024-03-23] MEDS: HYDROmorphone HCL INJ (*CRX) 1 MG/ML SYR 0.5 MG IV PUSH (22:01)
--- NOTE | 2024-03-23 23:08 | PC.NURSE ---
Report called to Anna at [facility].
--- OUTSIDE RECORDS SUMMARY | 2024-03-26 16:59 | XMS_ITS ---
Author Organization [facility] Address [address] [facility] [address] [place] [address] Care Team Providers Care Scrap Materials Buyer Name Role Phone Jose Mo Primary Care Provider UnavailChristiano Marr DPM Unavailable [phone] ALLERGIES Allergen (clinical drug ingredient) Drug/Non Drug Allergy documented on EMR Reaction Allergy Type Onset Date Status Substance with sulfonamide structure and antibacterial mechanism of action (substance) Sulfa Antibiotics (uncoded) Stiff muscles Allergy Active REASON FOR VISIT david foot MEDICATIONS Medication SIG (Take, Route, Frequency, Duration) Notes Start Date End Date Status Ascorbic Acid 2; Prescribed By : Yoselyn Active Metamucil 1; Prescribed By : Chely Active Gemtesa 75 MG 1 02/02/2024 Activ e Methenamine Mandelate 2; Prescribed By: Yoselyn Active NexIUM 2; Prescribed By : Chely Active TEGretol 5; Prescribed By : Chely Active SOCIAL HISTORY Tobacco Use: Social History Observation Description Date Details (start date - stop date) Former Smoker 04/07/1988 - 04/07/2018 Sex Assigned At : Social History Observation Description Sex Assigned At Unknown Tobacco Use: Question Answer Notes Patient is a: former smoker When did you start smoking? 04/07/1988 When did you stop smoking? 04/07/2018 Alcohol screening: Question Answer Notes Did you have a drink contain ing alcohol in the past year? Yes How often did you have a dri nk containing alcohol in the past year? Monthly or less (1 point) How many drinks did you have on a typical day when you were drinking in the past year? 7 to 9 (3 points) How often did you have six o r more drinks on one occasion in the past year? Less than monthly (1 point) Points 5 Interpretation Positive Encounters Encounter Location Date Provider Diagnosis [facility] [address] [place] [address] 02/04/2024 Christiano Cortez DPM Onychomycosis B35.1 ; Onycholysis L60.1 ; Need for assistance with personal care Z74.1 ; Bunion of right foot M21.611 and Bunion of left foot M21.612 ASSESSMENTS Encounter Date Diagnosis Assessment Notes Treatment Notes Treatment Clinical Notes 02/04/2024 Onychomycosis (ICD-10 - B35.1) The thickened, elongated, ingrowing, painful and dystrophic 10 toenails were debrided with a nail nipper without incident. Follow up in 3 months for routine foot care if needed 02/04/2024 Onycholysis (ICD-10 - L60.1) 02/04/2024 Need for assistance with personal care (ICD-10 - Z74.1) 02/04/2024 Bunion of right foot (ICD-10 - M21.611) 02/04/2024 Bunion of left foot (ICD-10 - M21.612) PLAN OF TREATMENT Treatment Notes Assessment Notes Onychomycosis The thickened, elongated, ingrowing, painful and dystrophic 10 toenails were debrided with a nail nipper without incident. Follow up in 3 months for routine foot care if needed Progress Notes * Examination Category Sub-Category Detail Notes General Examination GENERAL APPEARANCE: BILATERA L lower extremity Vascular: DP and PT pulses are palpable 2/4. Capillary Refill time is less than 5 seconds to all digits of the bilateral foot. Skin temp is warm to infant toddler lead teacher a proximal to distal fashion of the bilateral lower extremity. Pedal hair growth is present bilateral foot. Neurological: Epricritic sensation grossly intact to bilateral foot. Proprioception intact at the hallux 1st MPJ bilateral. Dermatological: Webspaces 1-4 are clean dry and intact. Skin is supple and well hydrated. No open wounds or ulcerations to bilateral foot. Nails 1 through 10 are thick and elongated. Hematoma to the right great toenail. Musculoskeletal: Muscle strength is 5/5 for all groups of the bilateral lower extremity. Ankle joint and subtalar joint ROM is full bilateral. No pain with medial to lateral compression of the calf muscle bilateral. No obvious pedal deformities noted. History and Physical Notes * HPI (History of Present Illness) Category Sub-Category Detail Notes Depression Screening PHQ-2 (2015 Edition) Little interest or pleasure in doing things?: Several days Feeling down, depressed, or hopeless?: N ot at all Total Score: 1
--- OUTSIDE RECORDS SUMMARY | 2024-03-26 16:59 | XMS_ITS | Patient Health Record ---
Author Organization [facility] Address [address] [place] [address] Care Team Providers Care Boat Person Name Role Phone Jose Mo Primary Care Provider UnavailChristiano Marr DPM Unavailable [phone] ALLERGIES Allergen (clinical drug ingredient) Drug/Non Drug Allergy documented on EMR Reaction Allergy Type Onset Date Status Substance with sulfonamide structure and antibacterial mechanism of action (substance) Sulfa Antibiotics (uncoded) Stiff muscles Allergy Active REASON FOR REFERRAL No Information MEDICATIONS Medication SIG (Take, Route, Frequency, Duration) [...] Positive Encounters Encounter Location Date Provider Diagnosis [facility] [address] [place] [address] 02/04/2024 Christiano Cortez DPM Onychomycosis B35.1 ; Onycholysis L60.1 ; Need for assistance with personal care Z74.1 ; Bunion of right foot M21.611 and Bunion of left foot M21.612 ASSESSMENTS Encounter Date Diagnosis Assessment Notes Treatment Notes Treatment Clinical Notes 02/04/2024 Onycholysis (ICD-10 - L60.1) 02/04/2024 Onychomycosis (ICD-10 - B35.1) The thickened, elongated, ingrowing, painful and dystrophic 10 toenails were debrided with a nail nipper without incident. Follow up in 3 months for routine foot care if needed 02/04/2024 Need for assistance with personal care (ICD-10 - Z74.1) 02/04/2024 Bunion of right foot (ICD-10 - M21.611) 02/04/2024 Bunion of left foot (ICD-10 - M21.612) PLAN OF TREATMENT No Information Insurance Providers Payer Name Payer Address Payer Phone Subscriber Number Group Number Insured Name Patient Relationship to Insured Coverage Start Date Coverage End Date [facility] [address] [address] [place] [phone] [id number] Angus Jain Self - patient is the insured MEDICAL (GENERAL) HISTORY Medical History History ICD Code Arthritis GERD - Gastro-esophageal reflux disease Quadriplegia Basal cell carcinoma of skin Surgical History Surgery Date(Month/Year) Neck fusion 1986 Femur reconstruction 1986 Ear reconstruction 1987 Tibia reconstruction 2018
--- OUTSIDE RECORDS SUMMARY | 2024-03-26 16:59 | XMS_ITS | Clinical Summary ---
Author Organization [facility] Address [address] [place] [address] Care Team Providers Care Filament Maker Name Role Phone Jose Mo MD Primary Care Provider [phone] Source Comments [facility],non-owned Affiliates and Associated Physician Practices is amultiple site organization consisting of ambulatory clinics and hospital sitesin [place], [place], [place] and [place]. This disclosure is being madepursuant to the Care Everywhere program and may not contain all information available regarding this patient. Last updated 17.[facility] Active Problems Problem Noted Date Diagnosed Date Mesenteric mass 03/23/2024 Encounters Date Type Department Care Team Description 03/24/2024 Lab Requisition [facility] - Pathology Lab [address] [place] [id number] Weston Garces MD Illness, unspecified from Last 3 Months Social History Tobacco Use Types Packs/Day Years Used Date Smoking Tobacco: Never Assessed Sex and Gender Information Value Date Recorded Sex Assigned at Not on file Gender Identity Not on file Sexual Orientation Not on file Plan of Treatment Health Maintenance Due Date Last Done Comments COLOGUARD (AGES 45-75) - COLON CA SCREENING 1971 COLON MONITORING 1971 COLONOSCOPY - COLON CA SCREENING 1971 CT COLONOGRAPHY - COLON CA SCREENING 1971 Colorectal Cancer Screening 1971 FIT - COLON CA SCREENING 1971 FLEX SIG - COLON CA SCREENING 1971 LIPID TESTING 1971 HIV SCREENING 1986 HEPATITIS C SCREENING 05/02/1989 DTAP/TDAP/TD VACCINES (1 - Tdap) 1990 HEPATITIS B VACCINE (1 of 3 - 19+ 3-dose series) 1990 ZOSTER VACCINE (1 of 2) 2021 DEPRESSION SCREENING 04/07/2023 COVID-19 VACCINE ( season) 2023 INFLUENZA VACCINE (#1) 2023 2, 12/22/2020, 12/24/2019, Additional history exists HIB VACCINE Aged Out No longer eligi ble based on patient's age to complete this topic HPV VACCINE Aged Out No longer eligi ble based on patient's age to complete this topic MENINGOCOCCAL VACCINE Aged Out No fariba susan eligible based on patient's age to complete this topic PNEUMOCOCCAL VACCINE Aged Out No long er eligible based on patient's age to complete this topic Procedures Procedure Name Priority Date/Time Associated Diagnosis Comments PATHOLOGY TISSUE Routine 03/23/2024 1:43 PM AUDITOR SUPERVISOR Illness, unspecified from Last 3 Months Results * PATHOLOGY TISSUE (03/23/2024 1:43 PM AUDITOR SUPERVISOR) Case Report Surgical Pathology Report ? Case: [id number] ? Authorizing Provider: ??Weston Garces MD ?Collected: ? 03/23/2024 01:43 PM ? Ordering Location: ? [facility] - ??Received: ?03/24/2024 02:17 PM ? Pathology Lab ? Pathologist: ? Dk Enciso MD ? Specimen: ?Gastric Biopsy ? 03/25/2024 4:23 PM [facility] Final Diagnosis Ileal mass, biopsy: - Diffuse large B-cell lymphoma, non-germinal center derived 03/25/2024 4:23 PM [facility] Microscopic Description and Comment The H&E stained sections show a mucosal infiltrate of sheets of large lymphoid cells with hyperchromatic chromatin and few interspersed apoptotic cells. A low-grade component is not appreciated. Immunohistochemistry performed at [facility] Pathology shows the lymphoma cells to be CD20+, CD79a+, BCL2+, MUM-1+, and BCL-6+ (subset) B-cells that are negative for CD30, CD10, and DENG. CD3 highlights background T-cells and CD138 highlights background plasma cells. In situ hybridization for kappa and lambda mRNA shows lambda light chain restriction in lymphoma cells. Cyclin D1 is negative in lymphoma cells, but stains epithelial and endothelial nuclei. 03/25/2024 4:23 PM [facility] Clinical History Ilial mass. 03/25/2024 4:23 PM [facility] Materials Received Received are 2 slide(s) and 1 block(s) labeled [id number] along with a copy of the outside pathology report. [place] [address]. All original materials are returned to the referring institution, along with a copy of our final report. 03/25/2024 4:23 PM [facility] Pathologist Location at [facility] 03/25/2024 4:23 PM [facility] Disclaimer The performance characteristics of all immunohistochemical and indirect immunofluorescence stains (if any) cited in this report were determined by the Histopathology Laboratory of [facility]. Some of these tests were developed by our own laboratory and have not been cleared or approved by the US Food and Drug Administration. The FDA does not require this test to go through premarket FDA review. These tests are used for clinical purposes. They should not be regarded as investigational or for research. This laboratory is certified under the Clinical Laboratory Improvement Amendments (CLIA) as qualified to perform high complexity clinical laboratory testing. This case has been personally reviewed and interpreted by the attending (teaching) pathologist. 03/25/2024 4:23 PM [facility] Embedded Images 03/25/2024 4:23 PM [facility] Pathology/Cytolo gy GASTRIC BIOPSY SPECIMEN / Unknown 03/23/2024 1:43 PM AUDITOR SUPERVISOR 03/24/2024 2:17 PM AUDITOR SUPERVISOR Weston Garces MD LAB - PATHOLOGY/CYTO LOGY ORDERABLES [facility] [address] [phone] from Last 3 Months Care Teams Filament Maker Relationship Specialty Start Date End Date Jose Mo MD PCP - General 03/21/08
--- OUTSIDE RECORDS SUMMARY | 2024-03-26 16:59 | XMS_ITS | Continuity of Care Document ---
Author Organization [facility] Address [address] [facility] [address] [place], [place] [id number] Care Team Providers Care Incinerator Operator Name Role Phone Jose Mo Primary Care Physician Encounter [facility] Financial Number [id number] Date(s): 03/20/24 - 03/20/24 [facility] [address] [facility] [address] [place], [place] [id number] Discharge Disposition: Home or Self Care Encounter Type: Between Visit Assessment and Plan Future Appointments Appointment Date:04/16/2024 12:20:00 PM Scheduled Provider:Christiano Cortez DPM Location:[facility] Appointment Type:Established Patient Physician Outpatient Note * Tanisha Mason HOTBED LEVER OPERATOR: PERFORM Event Display: Office/Clinic Note-Physician Authored Date: [id number] Patient Care team information Care Team Personnel Name: Jose Mo MD Position: ZZ FAX ONLY - MD NOT ON STAFF Member Role: Primary Care Physician Address: [address] [place] [address]- Telecom: Insurance Providers Guarantor name: NI Health Plan Information #: 1 Payer: [facility] Member Number: NA Policy Number: NA Group Number: [id number]
--- OUTSIDE RECORDS SUMMARY | 2024-03-26 17:00 | XMS_ITS | Encounter Summary ---
Author Organization [facility] Address [address] [place] [address]. [place], [place] [id number] [place] [address] Care Team Providers Care City Editor Name Role Phone Jose Mo MD Primary Care Provider [phone] Encounter Details Date Type Department Care Team (Latest Contact Info) Description 03/23/2022 Travel Social History Tobacco Use Types Packs/Day Years Used Date Smoking Tobacco: Former Cigarettes Q uit: 06/11/2018 Smokeless Tobacco: Never Alcohol Use Standard Drinks/Week Comments Yes 0 (1 standard drink = 0.6 oz pur e alcohol) socially Sex and Gender Information Value Date Recorded Sex Assigned at Male 05/10/2019 1:27 AM SENIOR HRIS ANALYST Legal Sex Male 7:38 PM CDT Gender Identity Male 05/10/2019 1:27 AM SENIOR HRIS ANALYST Sexual Orientation Not on file COVID-19 Exposure Response Date Recorded In the last 10 days, have yo u been in contact with someone who was confirmed or suspected to have Coronavirus/COVID-19? No / Unsure 03/23/2022 10:29 AM SENIOR HRIS ANALYST documented as of this encounter Functional Status * RETIRED Are you deaf or do you have serious difficulty hearing Answer Date of Assessment Author Status No 05/15/2019 12:02 PM SENIOR HRIS ANALYST 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 Answer Date of Assessment Author Status No 05/15/2019 12:02 PM SENIOR HRIS ANALYST Acti ve * Do you have serious difficulty walking or climbing stairs? Answer Date of Assessment Author Status No 05/15/2019 12:02 PM Cassie Perdomo RN Active * Do you have difficulty dressing or bathing? Answer Date of Assessment Author Status No 05/15/2019 12:02 PM Cassie Perdomo RN Active * Because of a physical, mental, or emotional condition, do you have difficulty doing errands alone such as visiting a doctor's office or shopping? Answer Date of Assessment Author Status No 05/15/2019 12:02 PM Cassie Perdomo RN Active documented as of this encounter Mental Status * Because of a physical, mental, or emotional condition, do you have serious difficulty concentrating, remembering, or making decisions? Answer Entry Date Author Status No 05/15/2019 12:02 PM Cassie Perdomo RN Active documented in this encounter Plan of Treatment Not on file documented as of this encounter Goals Goal Patient Goal Type Associated Problems Recent Progress Patient-Stated? 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 No DME or home health needed at this time. documented as of this encounter Visit Diagnoses Not on filedocumented in this encounter Care Teams City Editor Relationship Specialty Start Date End Date Jose Mo MD [address] [address] PCP - General INTERNAL MEDICINE 05/09/19 documented as of this encounter
--- OUTSIDE RECORDS SUMMARY | 2024-03-26 17:00 | XMS_ITS | Encounter Summary ---
Author Organization [facility] Address [address] [place] [address]. [place], [place] [id number] [place] [address] Care Team Providers Care Transmitter Supervisor Name Role Phone Unavailable Primary Care Provider Unavailabl e Encounter Details Date Type Department Care Team (Late st Contact Info) Description 07/25/2018 Abstract [facility] Emergency Room [id number] [place] [address] Mohamud Peña MD [address] [place] [address] Social History Tobacco Use Types Packs/Day Years Used Date Smoking Tobacco: Never Assessed Sex and Gender Information Value Date Recorded Sex Assigned at Male 05/10/2019 1:27 AM POST CLOSER Legal Sex Male 7:38 PM CDT Gender Identity Male 05/10/2019 1:27 AM POST CLOSER Sexual Orientation Not on file documented as of this encounter Plan of Treatment Not on file documented as of this encounter Procedures Procedure Name Priority Date/Time Associated Diagnosis Comments CULTURE, WOUND, W/GRAM STAIN Routine 07/25/2018 3:50 PM CDT documented in this encounter Results * CULTURE, WOUND, W/GRAM STAIN (07/25/2018 3:50 PM CDT) SPEC DESCRIPTION SKIN 07/25/2018 3:50 PM CDT [facility] SPECIAL REQUESTS NO SPECIAL REQUEST 07/25/2018 3:50 PM CDT [facility] GRAM STAIN RESULT NO WHITE BLOOD CELLS SEEN 07/27/2018 9:56 AM CDT [facility] GRAM STAIN RESULT NO ORGANISMS SEEN 07/27/2018 9:56 AM CDT [facility] CULTURE RESULT NO GROWTH 3 DAYS 07/29/2018 10:57 AM CDT [facility] CULTURE RESULT NOTE: WOUND AND TISSUE CULTURES ARE ROUTINELY SCREENED FOR AEROBIC ORGANISMS ONLY. 07/29/2018 10:57 AM CDT [facility] SKIN SWAB / Unknown 07/25/2018 3:50 PM CDT 07/25/2018 4:23 PM CDT Comment:RIGHT ANTERIOR LEG us Generic Conversion Md [facility] - GENERAL ORDERABLES Final Result Performing Organization Address City/State/[facility] Co de Phone Number [facility] [address] [place] [address], [place] [phone] [facility] [address] [place] [address], [place] [phone] documented in this encounter Visit Diagnoses Diagnosis Cellulitis of right lower extremity Cellulitis and abscess of leg, except foot documented in this encounter
--- OUTSIDE RECORDS SUMMARY | 2024-03-26 17:00 | XMS_ITS | Encounter Summary ---
Author Organization [facility] Address [address] [place] [address]. [place], [place] [id number] [place] [address] Care Team Providers Care Rollout Manager Name Role Phone Jose Mo MD Primary Care Provider [phone] Reason for Visit * Reason Onset Date Comments Hospital Follow Up 05/24/2019 Encounter Details Date Type Department Care Team (Late st Contact Info) Description 05/24/[address] [facility] Care Management [address] [place] [address] Zayra Kidd, [facility] Hospital Follow Up Social History Tobacco Use Types Packs/Day Years Used Date Smoking Tobacco: Former Cigarettes Q uit: 06/11/2018 Smokeless Tobacco: Never Alcohol Use Standard Drinks/Week Comments Yes 0 (1 standard drink = 0.6 oz pur e alcohol) socially Sex and Gender Information Value Date Recorded Sex Assigned at Male 05/10/2019 1:27 AM DRYWALLER Legal Sex Male 7:38 PM CDT Gender Identity Male 05/10/2019 1:27 AM DRYWALLER Sexual Orientation Not on file documented as of this encounter Functional Status * RETIRED Are you deaf or do you have serious difficulty hearing Answer Date of Assessment Author Status No 05/15/2019 12:02 PM DRYWALLER 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 Answer Date of Assessment Author Status No 05/15/2019 12:02 PM DRYWALLER Acti ve * Do you have serious [...] Author Return home General No Zayra Kidd, STEWARD/STEWARDESS SECOND Note: Plan to return home with significant other. No DME or home health needed at this time. documented as of this encounter Visit Diagnoses Not on filedocumented in this encounter Care Teams Rollout Manager Relationship Specialty Start Date End Date Jose Mo MD [address] [address] PCP - General INTERNAL MEDICINE 05/09/19 documented as of this encounter
--- OUTSIDE RECORDS SUMMARY | 2024-03-26 17:00 | XMS_ITS | Encounter Summary ---
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 RATIO 07/27/2023 8:38 PM [facility] GFR ESTIMATE >90 >90 ML/MIN/1.7 3 M2 07/27/2023 8:38 PM [facility] Comment: NOTE: eGFR is not calculated for patients <18 years of age. This is an estimated GFR calculation using the new CKD EPI creatinine equation without race and so does not require a correction factor for race. This estimated GFR should not be used for calculating drug doses. 07/27/2023 8:00 PM CDT Micah Pena DO LABORATORY Final Res ult [facility] [address] [place] [address], * (ABNORMAL) CBC W/DIFF AUTOMATED (07/27/2023 8:00 PM CDT) WBC 8.00 4.4 - 11.0 x10'3/uL 07/27/2023 8:13 PM CDT [facility] RBC 4.87 4.50 - 5.90 x10'6/uL 07/27/2023 8:13 PM CDT [facility] HGB 14.3 14.0 - 17.5 G/DL 07/27/2023 8:13 PM CDT [facility] HCT 43.2 41.5 - 50.4 % 07/27/2023 8:13 PM CDT [facility] MCV 88.7 80.0 - 96.0 FL 07/27/2023 8:13 PM CDT [facility] MCH 29.4 26.5 - 31.4 PG 07/27/2023 8:13 PM CDT [facility] MCHC 33.1 31.9 - 34.8 G/DL 07/27/2023 8:13 PM CDT [facility] RDW 12.9 12.3 - 14.3 % 07/27/2023 8:13 PM CDT [facility] PLT 213 151 - 353 x10'3/uL 07/27/2023 8:13 PM CDT [facility] MPV 9.5(L) 9.7 - 11.9 FL 07/27/2023 8:13 PM CDT [facility] RBC MORPHOLOGY NORMAL 07/27/2023 8:13 PM CDT [facility] PLT MORPH. NORMAL 07/27/2023 8:13 PM CDT [facility] WBC MORPHOLOGY NORMAL 07/27/2023 8:13 PM CDT [facility] LYMPHOCYTES % 14.1(L) 15.8 - 45.0 % 07/27/2023 8:13 PM CDT [facility] NEUTROPHILS % 80.3(H) 42.1 - 71.9 % 07/27/2023 8:13 PM CDT [facility] MONOCYTES % 4.0(L) 5.7 - 12.5 % 07/27/2023 8:13 PM CDT [facility] EOSINOPHILS 0.9 0.0 - 5.6 % 07/27/2023 8:13 PM CDT [facility] BASOPHILS 0.3 0.0 - 1.3 % 07/27/2023 8:13 PM CDT [facility] ABS. NEUTROPHILS 6.43(H) 1.40 - 6.00 x10'3/uL 07/27/2023 8:13 PM CDT [facility] IMMATURE GRANS % 0.4 0.0 - 0.5 % 07/27/2023 8:13 PM CDT [facility] ABS. LYMPHOCYTES 1.13 0.80 - 4.70 x10'3/uL 07/27/2023 8:13 PM CDT [facility] 07/27/2023 8:00 PM CDT us Micah Pena DO LABORATORY Final Res ult [facility] [address] [place] [address], [place] [phone] documented in this encounter Visit Diagnoses Diagnosis Nausea and vomiting, unspecified vomiting type- Primary Gastroenteritis Other and unspecified noninfectious gastroenteritis and colitis documented in this encounter Administered Medications Inactive Administered Medications - up to 3 most recent administrations Medication Order MAR Action Action Date Dose Rate Site iopamidol (ISOVUE-370) 76 % injection 80 mL 80 mL, Intravenous, IMG once as needed, Contrast, 1 dose, Starting on 07/27/23 at 2107, Until 07/27/23 at 2107 Given 07/27/2023 9:07 PM CDT 80 mLs Right Arm ketorolac (TORADOL) injection 15 mg 15 mg, Intravenous, Once, 1 dose, On 07/27/23 at 2014, For IV administration, give over 15 seconds. Given 07/27/2023 8:17 PM CDT 15 mg ondansetron (ZOFRAN) injection 4 mg 4 mg, Intravenous, Once, 1 dose, On 07/27/23 at 2000, IV push over 2-5 minutes. Given 07/27/2023 8:01 PM CDT 4 mg ondansetron (ZOFRAN-ODT) disintegrating tablet 4 mg 4 mg, Oral, Once, 1 dose, On 07/27/23 at 2245, MEDICATION FOR TAKE HOME Given 07/27/2023 10:37 PM CDT 4 mg ondansetron (ZOFRAN-ODT) disintegrating tablet 4 mg 4 mg, Oral, Once, 1 dose, On 07/27/23 at 2300 Given 07/27/2023 10:56 PM CDT 4 mg sodium chloride 0.9% bolus infusion 1,000 mL 1,000 mL, Intravenous, Administer over 60 Minutes, Once, 1 dose, On 07/27/23 at 2000 New Bag 07/27/2023 8:07 PM CDT 1,000 mLs documented in this encounter Active and Recently Administered Medications Times are shown in CDT. Scheduled Medication Order 07/25/2023 07/26/2023 07/27/2023 ketorolac (TORADOL) injection 15 mg (COMPLETED) 15 mg, Intravenous, Once, 1 dose, On 07/27/23 at 2014, For IV administration, give over 15 seconds. 2017 (Given - Provid er: Lewis Bloom, DANNA) ondansetron (ZOFRAN) injection 4 mg (COMPLETED) 4 mg, Intravenous, Once, 1 dose, On 07/27/23 at 2000, IV push over 2-5 minutes. 2000 (Given - Provid er: Lewis Bloom, DANNA) ondansetron (ZOFRAN-ODT) disintegrating tablet 4 mg (COMPLETED) 4 mg, Oral, Once, 1 dose, On 07/27/23 at 2245, MEDICATION FOR TAKE HOME 2237 (Given - Provid er: Lewis Bloom RN - Comment: Sent home with patient; instructions discussed, no additional questions.) ondansetron (ZOFRAN-ODT) disintegrating tablet 4 mg (COMPLETED) 4 mg, Oral, Once, 1 dose, On 07/27/23 at 2300 2256 (Given - Provid er: Lewis Bloom RN) sodium chloride 0.9% bolus infusion 1,000 mL (COMPLETED) 1,000 mL, Intravenous, Administer over 60 Minutes, Once, 1 dose, On 07/27/23 at 2000 2006 (New Bag - Prov ider: Lewis Bloom RN)215 (Infusion Stop Time - Provider: Laura Villalpando RN) PRN Medication Order 07/25/2023 07/26/2023 07/27/2023 iopamidol (ISOVUE-370) 76 % injection 80 mL (COMPLETED) 80 mL, Intravenous, IMG once as needed, Contrast, 1 dose, Starting on 07/27/23 at 2107, Until 07/27/23 at 2106 210 (Given - Provid er: Farhana Zheng, RTR) documented in this encounter Additional Health Concerns Infection Onset Date Last Indicated Resolved Time COVID-19 Rule Out 07/27/2023 07/27/2023 07/27/2023 8:33 PM CDT documented as of this encounter Care Teams Hide Grader Relationship Specialty Start Date [place] [address] PCP - General INTERNAL MEDICINE 05/09/19 documented as of this encounter
--- OUTSIDE RECORDS SUMMARY | 2024-03-26 17:00 | XMS_ITS | Encounter Summary ---
Author Organization [facility] Address [address] [place] [address]. [place], [place] [id number] [place] [id number] Care Team Providers Care Wood Carving Machine Operator Name Role Phone Jose Mo MD Primary Care Provider [phone] Saroj Griffin MD Unavailable [phone] Ania Topete NP Unavailable [phone] Encounter Details Date Type Department Care Team (Latest Contact Info) Description 11/20/2023 Travel Social History Tobacco Use Types Packs/Day Years Used Date Smoking Tobacco: Former Cigarettes Q uit: 06/11/2018 Smokeless Tobacco: Never Alcohol Use Standard Drinks/Week Comments Not Currently 0 (1 standard drink = 0.6 oz pur e alcohol) socially Sex and Gender Information Value Date Recorded Sex Assigned at Male 05/10/2019 1:27 AM NAUMKEAG OPERATOR Legal Sex Male 7:38 PM CDT Gender Identity Male 05/10/2019 1:27 AM NAUMKEAG OPERATOR Sexual Orientation Not on file documented as of this encounter Functional Status * RETIRED Are you deaf or do you have serious difficulty hearing Answer Date of Assessment Author Status No 05/15/2019 12:02 PM NAUMKEAG OPERATOR 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 Answer Date of Assessment Author Status No 05/15/2019 12:02 PM NAUMKEAG OPERATOR Acti ve * Do you have serious difficulty walking or climbing stairs? Answer Date of Assessment Author Status No 05/15/2019 12:02 PM NAUMKEAG OPERATOR Cassie Dawn RN Active * Do you have difficulty [...] Author Return home General No Zayra Kidd, GALVANIZER ZINC Note: Plan to return home with significant other. No DME or home health needed at this time. documented as of this encounter Visit Diagnoses Not on filedocumented in this encounter Care Teams Wood Carving Machine Operator Relationship Specialty Start Date End Date Jose Mo MD [address] [address] PCP - General INTERNAL MEDICINE 05/09/19 [place] [address] [place] [address] Consulting Physician UROLOGY 11/20/23 Ania Topete NP [address] [phone] NURSE PRACTITIONER 11/20/23 documented as of this encounter
--- OUTSIDE RECORDS SUMMARY | 2024-03-26 17:00 | XMS_ITS | Encounter Summary ---
Author Organization [facility] Address [address] [place] [address]. [place], [place] [id number] [place] [id number] Care Team Providers Care Manager Metal Name Role Phone Jose Mo MD Primary Care Provider [phone] Reason for Visit * Reason Comments Fall Leg Pain Encounter Details Date Type Department Care Team (Late st Contact Info) Description 07/09/2022 6:47 PM CDT - 07/09/2022 9:46 PM CDT Emergency [facility] Emergency Room [id number] [place] [address] [id number] Renetta Beal MD [address] [place] [id number] Fall; Leg Pain Discharge Disposition: Home or Self Care (Routine Discharge) Social History Tobacco Use Types Packs/Day Years Used Date Smoking Tobacco: Former Cigarettes Q uit: 06/11/2018 Smokeless Tobacco: Never Alcohol Use Standard Drinks/Week Comments Not Currently 0 (1 standard drink = 0.6 oz pur e alcohol) socially Sex and Gender Information Value Date Recorded Sex Assigned at Male 05/10/2019 1:27 AM [employer]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 No / Unsure 07/09/2022 6:24 PM CDT documented as of this encounter Last Filed Vital Signs Vital Sign Reading Time Taken Comments Blood Pressure 128/80 07/09/2022 9:44 PM CDT Pulse 86 07/09/2022 9:44 PM CDT Temperature 36.9 ??C (98.5 ??F) 07/09/2022 9:44 PM CD T Respiratory Rate 18 07/09/2022 9:44 PM CDT Oxygen Saturation 97% 07/09/2022 9:44 PM CDT Inhaled Oxygen Concentration - - Weight 113.4 kg (250 lb) 07/09/2022 6:53 PM CDT Height 170.2 cm (5' 7 ) 07/09/2022 6:53 PM CDT Body Mass Index 39.16 07/09/2022 6:53 PM CDT documented in this encounter Functional Status * RETIRED Are you deaf or do you have serious difficulty hearing Answer Date of Assessment Author Status No 05/15/2019 12:02 PM 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 Answer Date of Assessment Author Status No 05/15/2019 12:02 PM CARPENTER MATE Acti ve * Do you have serious [...] Perdomo RN Active documented in this encounter Discharge Instructions * Discharge Instructions* Renetta Beal MD - 07/09/2022 9:25 PM CDT You can use ibuprofen and Tylenol at home for pain relief, follow the RICE principle as discussed. Follow-up with your doctor next week for reevaluation. Return for any worsening or other concerns. * Attachments The following attachments cannot be sent through Care Everywhere. * Ankle Sprain (Urdu) * Foot Sprain Discharge Instructions (Urdu) * Using Cold for Pain (Urdu) documented in this encounter Medications at Time [...] tablet (25 mg total) by mouth daily. psyllium 51.7 % packet Take 1 packet by mouth daily. tadalafil 5 MG tablet Take 5 mg by mouth as needed for Erectile Dysfunction. 03/23/2019 documented as of this encounter ED Notes * Renetta Beal MD - 07/09/2022 9:46 PM CDT Images from the original note were not included. Chief Complaint Chief Complaint Patient presents with ??? Fall ??? Leg Pain History of Present Illness 52-year-old male presents with his for evaluation of left ankle and foot pain. At baseline, the patient has a scissor gait according to his , and uses a walker. 2 days ago, while going down a ramp, the patient had his left knee give out, which he reports is not unusual for him and has been occurring for years, and he then fell onto his right side, and his reports that his left foot and ankle crumpled underneath him. He has had ongoing pain in the left lateral ankle and left lateral foot ever since. He has been able to ambulate since, although reports it is painful. He has beentaking Advil at home for relief. He has not taken any since this morning. He denies any injury elsewhere. Medical History ALLERGIES: Allergies Allergen Reactions ??? Hydromorphone Hives and Other (see comment) ??? Sulfa Antibiotics Unknown MEDICATIONS: Prior to Admission medications Medication Sig Start Date End Date Taking? Authorizing Provider carBAMazepine XR 200 MG 12 hr tablet [...] tablet (25 mg total) by mouth daily. GENERICPROVIDER, DEFAULT HISTORY psyllium 51.7 % packet Take 1 packet by mouth daily. [facility] tadalafil 5 MG tablet Take 5 mg by mouth as needed for Erectile Dysfunction. 03/23/19 Doc [facility] PAST MEDICAL HISTORY: Past Medical History: Diagnosis Date ??? Bladder disorder ??? Epididymitis ??? History of blood transfusion 1986 ??? Neck fracture (CMS/HCC) ??? Skull fracture (CMS/HCC) PAST SURGICAL HISTORY: Past Surgical History: Procedure Laterality Date ??? CLOSED RX DIST FIBULA FX ??? EAR SURGERY EXTERNAL FAMILY HISTORY: No family history on file. SOCIAL HISTORY: Social History Tobacco Use ??? Smoking status: Former Types: Cigarettes Quit date: 06/11/2018 Years since quittin.0 ??? Smokeless tobacco: Never Vaping Use ??? Vaping Use: Never used Substance Use Topics ??? Alcohol use: Not Currently Comment: socially ??? Drug use: Never Review of Systems Review of Systems Constitutional: Negative for fever. Gastrointestinal: Negative for vomiting. Musculoskeletal: Negative for neck pain. All other systems reviewed and are negative. Physical Exam Filed Vitals: 07/09/22 1853 07/09/22 2144 BP: 130/76 128/80 Pulse: 85 86 Resp: 18 18 Temp: 98.6 ??F (37 ??C) 98.5 ??F (36.9 ??C) TempSrc: Temporal SpO2: 97% 97% Weight: 113.4 kg (250 lb) Height: 5' 7 (1.702 m) Physical Exam Vitals and nursing note reviewed. Constitutional: General: He is not in acute distress. Appearance: Normal appearance. HENT: Head: Normocephalic and atraumatic. Nose: Nose normal. Eyes: Conjunctiva/sclera: Conjunctivae normal. Cardiovascular: Rate and Rhythm: Normal rate. Pulmonary: Effort: Pulmonary effort is normal. Musculoskeletal: General: Normal range of motion. Feet: Comments: 2+ left DP and PT pulses. Normal sensation to light touch throughout the left foot. Normal range of motion of the left ankle with plantarflexion and dorsiflexion, normal movement of the left toes. No left knee tenderness, full range of motion of the left knee with flexion and extension. No left knee external abnormality. Skin: General: Skin is warm and dry. Neurological: Mental Status: He is alert and oriented to person, place, and time. Mental status is at baseline. Psychiatric: Mood and Affect: Mood normal. Behavior: Behavior normal. Diagnostic Studies / Procedures ELECTROCARDIOGRAMS: No results found for this visit on 07/09/22. LABORATORY STUDIES: No results found for this visit on 07/09/22. IMAGING STUDIES XR FOOT LT 3V Final Result by User, [id number] (07/09 2109) 07/09/2022, 2043 hours. HISTORY: Fell. Foot pain and swelling. EXAM: AP, lateral and oblique views of the left foot. No comparison. FINDINGS: Contour deformity proximal phalanx left fifth toe consistent with an old healed fracture. Moderate arthritis at the interphalangeal joint of the great toe. Large Achilles calcaneal spur. Tiny dorsal spurring from the neck of the talus. Soft tissue swelling about the distal forefoot. No definite acute fracture. On the AP image, the distal lateral cortical margin of the calcaneus is slightly ill-defined and there is slight overlying soft tissue swelling. Symptoms are referred to this location and there is concern of an occult avulsion, one could consider additional evaluation or two-week follow-up. IMPRESSION: Abnormalities as discussed, see report. Ordered By: RENETTA BEAL Interpreted By: Ignacio Isaac MD, 07/09/2022 9:02 PM XR KNEE LT 3V Final Result by User, [id number] (07/09 1914) 07/09/2022, 1834 hours. HISTORY: Fell on Friday. Trauma. EXAM: AP, lateral and oblique views of left knee. No comparison. FINDINGS: No fracture or acute bony abnormality. No arthritic change. No gross bone destruction. No calcified intra-articular bodies. No joint effusion. Small calcification in the soft tissues at the anterior medial aspect proximal diaphysis left tibia suggesting a phlebolith. IMPRESSION: No acute bony abnormality left knee. Ordered By: CITLALLI FRAUSTO Interpreted By: Ignacio Isaac MD, 07/09/2022 7:11 PM XR ANKLE LT M3V Final Result by User, [id number] (07/09 1917) 07/09/2022, 1839 hours. HISTORY: Lateral pain after a fall on Friday. EXAM: AP, lateral and oblique views of left ankle. No comparison. FINDINGS: Moderate-sized Achilles calcaneal spur. No fracture or acute bony abnormality. No arthritic change at the tibiotalar nor subtalar joints. No periarticular soft tissue calcification. IMPRESSION: Achilles calcaneal spur. No acute bony abnormality. Ordered By: CITLALLI FRAUSTO Interpreted By: Ignacio Isaac MD, 07/09/2022 7:12 PM ED Course / Medical Decision Making Medical Decision Making 52-year-old male presents with injury of his left foot and ankle, which he acquired 2 days ago whenhis left knee gave out while walking down a ramp. The patient uses a walker at baseline, and reports that it is not uncommon for his left knee to give out on him, and this resulted in his fall, in which his left foot and ankle crumpled underneath him. On exam, there is some mild swelling of the lateral ankle and foot, there is no apparent neurovascular deficit or limitation of range of motion. Hehas been able to ambulate since his injury 2 days ago. X-rays of his left ankle and left knee were ordered prior to my arrival on shift by the prior physician, which show no acute process. The patient is having pain also in the left lateral foot, thus I obtained x-rays of the left foot as well, which show no obvious evidence of an acute fracture, however there is a possible avulsion injury seen on 1 view on the distal lateral calcaneus, thus I advised patient to obtain repeat x-rays with his doctor in 1 week if pain persists to again evaluate for possible occult fracture. I ordered an Dennis wrap for additional stability, the patient was counseled regarding the RICE principle. At this time, his presentation appears most likely consistent with a left ankle sprain and the left foot sprain, however he was advised of the possible avulsion injury and advised to seek reevaluation with his doctornext week if this pain persists. Discharged in stable condition with his , counseled regardinguse of ibuprofen and Tylenol at home for pain relief. He was given ibuprofen 600 mg for pain here. Should return for reevaluation with any worsening, new symptoms, failure to improve or other concerns, otherwise should follow-up closely with his primary care physician. Foot sprain, left, initial encounter: acute illness or injury Left ankle sprain: acute illness or injury Amount and/or Complexity of Data Reviewed Independent Historian: spouse Radiology: ordered. Decision-making details documented in ED Course. Risk OTC drugs. Clinical Impression Left ankle sprain (Primary) Foot sprain, left, initial encounter Disposition: Discharge Renetta Beal MD 07/09/22 0460 * Ledy Vines RN - 07/09/2022 6:49 PM CDT Fall to left knee and ankle injury. Rating pain at a 7. Partial weight bearing. Full movement. documented in this encounter Plan of Treatment Not on file documented as of this encounter Goals Goal Patient Goal Type Associated Problems Recent Progress Patient-Stated? Author Return home General No Zayra Kidd MSW Note: Plan to return home with significant other. No DME or home health needed at this time. documented as of this encounter Procedures Procedure Name Priority Date/Time Associated Diagnosis Comments XR FOOT LT 3V STAT 07/09/2022 8:49 PM CDT XR KNEE LT 3V STAT 07/09/2022 6:45 PM CDT XR ANKLE LT M3V STAT 07/09/2022 6:45 PM CDT documented in this encounter Results * XR FOOT LT 3V (07/09/2022 8:49 PM CDT) Anatomical Region Laterality Modality Foot Radiographic Cata ging 07/09/2022 9:02 PM CDT Impressions 07/09/2022 9:07 PM CDT IMPRESSION: Abnormalities as discussed, see report. Ordered By: RENETTA BEAL Interpreted By: Ignacio Isaac MD, 07/09/2022 9:02 PM Narrative 07/09/2022 9:07 PM CDT 07/09/2022, 2043 hours. HISTORY: Fell. Foot pain and swelling. EXAM: AP, lateral and oblique views of the left foot. No comparison. FINDINGS: Contour deformity proximal phalanx left fifth toe consistent with an old healed fracture. Moderate arthritis at the interphalangeal joint of the great toe. Large Achilles calcaneal spur. Tiny dorsal spurring from the neck of the talus. Soft tissue swelling about the distal forefoot. No definite acute fracture. On the AP image, the distal lateral cortical margin of the calcaneus is slightly ill- defined and there is slight overlying soft tissue swelling. Symptoms are referred to this location and there is concern of an occult avulsion, one could consider additional evaluation or two-week follow-up. Procedure Note Ignacio Isaac MD - 07/09/2022 07/09/2022, 2043 hours. HISTORY: Fell. Foot pain and swelling. EXAM: AP, lateral and oblique views of the left foot. No comparison. FINDINGS: Contour deformity proximal phalanx left fifth toe consistentwith an old healed fracture. Moderate arthritis at the interphalangealjoint of the great toe. Large Achilles calcaneal spur. Tiny dorsalspurring from the neck of the talus. Soft tissue swelling about the distalforefoot. No definite acute fracture. On the AP image, the distal lateralcortical margin of the calcaneus is slightly ill- defined and there isslight overlying soft tissue swelling. Symptoms are referred to thislocation and there is concern of an occult avulsion, one could consideradditional evaluation or two-week follow-up. IMPRESSION: Abnormalities as discussed, see report. Ordered By: RENETTA BEAL Interpreted By: Ignacio Isaac MD, 07/09/2022 9:02 PM us Renetta Beal MD GENERAL IMAGING Final Resu lt * XR ANKLE LT M3V (07/09/2022 6:45 PM CDT) Anatomical Region Laterality Modality Ankle Radiographic Cata ging 07/09/2022 7:12 PM CDT Impressions 07/09/2022 7:15 PM CDT IMPRESSION: Achilles calcaneal spur. No acute bony abnormality. Ordered By: CITLALLI FRAUSTO Interpreted By: Ignacio Isaac MD, 07/09/2022 7:12 PM Narrative 07/09/2022 7:15 PM CDT 07/09/2022, 1839 hours. HISTORY: Lateral pain after a fall on Friday. EXAM: AP, lateral and oblique views of left ankle. No comparison. FINDINGS: Moderate-sized Achilles calcaneal spur. No fracture or acute bony abnormality. No arthritic change at the tibiotalar nor subtalar joints. No periarticular soft tissue calcification. Procedure Note Ignacio Isaac MD - 07/09/2022 07/09/2022, 1839 hours. HISTORY: Lateral pain after a fall on Friday. EXAM: AP, lateral and oblique views of left ankle. No comparison. FINDINGS: Moderate-sized Achilles calcaneal spur. No fracture or acutebony abnormality. No arthritic change at the tibiotalar nor subtalarjoints. No periarticular soft tissue calcification. IMPRESSION: Achilles calcaneal spur. No acute bony abnormality. Ordered By: CITLALLI FRAUSTO Interpreted By: Ignacio Isaac MD, 07/09/2022 7:12 PM us Citlalli Frausto MD GENERAL IMAGING Final Result * XR KNEE LT 3V (07/09/2022 6:45 PM CDT) Anatomical Region Laterality Modality Knee Radiographic Cata ging 07/09/2022 7:11 PM CDT Impressions 07/09/2022 7:12 PM CDT IMPRESSION: No acute bony abnormality left knee. Ordered By: CITLALLI FRAUSTO Interpreted By: Ignacio Isaac MD, 07/09/2022 7:11 PM Narrative 07/09/2022 7:12 PM CDT 07/09/2022, 1834 hours. HISTORY: Fell on Friday. Trauma. EXAM: AP, lateral and oblique views of left knee. No comparison. FINDINGS: No fracture or acute bony abnormality. No arthritic change. No gross bone destruction. No calcified intra-articular bodies. No joint effusion. Small calcification in the soft tissues at the anterior medial aspect proximal diaphysis left tibia suggesting a phlebolith. Procedure Note Ignacio Isaac MD - 07/09/2022 07/09/2022, 1834 hours. HISTORY: Fell on Friday. Trauma. EXAM: AP, lateral and oblique views of left knee. No comparison. FINDINGS: No fracture or acute bony abnormality. No arthritic change. Nogross bone destruction. No calcified intra-articular bodies. No jointeffusion. Small calcification in the soft tissues at the anterior medialaspect proximal diaphysis left tibia suggesting a phlebolith. IMPRESSION: No acute bony abnormality left knee. Ordered By: CITLALLI FRAUSTO Interpreted By: Ignacio Isaac MD, 07/09/2022 7:11 PM Citlalli Frausto MD GENERAL IMAGING Final Result documented in this encounter Visit Diagnoses Diagnosis Left ankle sprain- Primary Sprain of ankle, unspecified site Foot sprain, left, initial encounter documented in this encounter Administered Medications Inactive Administered Medications - up to 3 most recent administrations Medication Order MAR Action Action Date Dose Rate Site ibuprofen (MOTRIN) tablet 600 mg 600 mg, Oral, Once, 1 dose, On Fri07/09/22 at 2044 Given 07/09/2022 8:48 PM CDT 600 mg documented in this encounter Active and Recently Administered Medications Times are shown in CDT. Scheduled Medication Order 07/07/2022 07/08/2022 07/09/2022 ibuprofen (MOTRIN) tablet 600 mg (COMPLETED) 600 mg, Oral, Once, 1 dose, On Fri07/09/22 at 2044 2047 (Given - Provid er: Dinora Miles RN) documented in this encounter Care Teams Manager Metal Relationship Specialty Start Date End Date Jose Mo MD [facility] [address] [id number] PCP - General INTERNAL MEDICINE 05/09/19 documented as of this encounter
--- OUTSIDE RECORDS SUMMARY | 2024-03-26 17:00 | XMS_ITS | Encounter Summary ---
Author Organization [facility] Address [address] [place] [address]. [place], [place] [address] [place] [id number] Care Team Providers Care Director Of Student Financial Services Name Role Phone Jose Mo MD Primary Care Provider [phone] Reason for Referral * Imaging (Emergency) - Closed Specialty Diagnoses / Procedures Referred By Barbara goldman Referred To Contact RADIOLOGY Procedures CT ABD+PEL W CON Chance Beard MD 1 [place] [address] Phone: tel: fax: Referral ID Status Reason Start Date Expiration Date Visits Re quested Visits Authorized [id number] Closed 12/29/2020 01/28/2022 1 1 * Imaging (Emergency) - Closed Specialty Diagnoses / Procedures Referred By Barbara goldman Referred To Contact RADIOLOGY Procedures US TESTICULAR Chance Beard MD 1 [place] [address] Phone: tel: fax: Referral ID Status Reason Start Date Expiration Date Visits Re quested Visits Authorized [id number] Closed 12/29/2020 01/28/2022 1 1 Reason for Visit * Reason Comments Urinary Symptoms Encounter Details Date Type Department Care Team ([facility] Contact Info) Description 12/29/2020 1:23 PM CDT - 12/29/2020 6:46 PM CDT Emergency [facility] Emergency Room [address] [place] [address] Chance Beard MD 1 [facility] [place] [address] Urinary Symptoms Discharge Disposition: Home or Self Care (Routine Discharge) Social History Tobacco Use Types Packs/Day Years Used Date Smoking Tobacco: Former Cigarettes Q uit: 06/11/2018 Smokeless Tobacco: Never Alcohol Use Standard Drinks/Week Comments Yes 0 (1 standard drink = 0.6 oz pur e alcohol) socially Sex and Gender Information Value Date Recorded Sex Assigned at Male 05/10/2019 1:27 AM BLOOD BANK CREDIT CLERK Legal Sex Male 7:38 PM CDT Gender Identity Male 05/10/2019 1:27 AM BLOOD BANK CREDIT CLERK Sexual Orientation Not on file COVID-19 Exposure Response Date Recorded In the last month, have you been in contact with someone who was confirmed or suspected to have Coronavirus / COVID-19? No / Unsure 12/29/2020 1:08 PM CDT documented as of this encounter Last Filed Vital Signs Vital Sign Reading Time Taken Comments Blood Pressure 127/60 12/29/2020 1:32 PM CDT Pulse 101 12/29/2020 1:32 PM CDT Temperature 37.2 ??C (99 ??F) 12/29/2020 1:32 PM CDT Respiratory Rate 20 12/29/2020 1:32 PM CDT Oxygen Saturation 97% 12/29/2020 1:32 PM CDT Inhaled Oxygen Concentration - - Weight 111.1 kg (245 lb) 12/29/2020 1:32 PM CDT Height 172.7 cm (5' 8 ) 12/29/2020 1:32 PM CDT Body Mass Index 37.25 12/29/2020 1:32 PM CDT documented in this encounter Functional Status * RETIRED Are you deaf or do you have serious difficulty hearing Answer Date of Assessment Author Status No 05/15/2019 12:02 PM BLOOD BANK CREDIT CLERK 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 Answer Date of Assessment Author Status No 05/15/2019 12:02 PM AGUSTO Nascimento ve * Do you have serious difficulty [...] cannot be sent through Care Everywhere. * Acute Cystitis Discharge Instructions (Icelandic) documented in this encounter Medications at Time of Discharge carBAMazepine XR 200 MG 12 hr tablet Take 1,000 mg by mouth nightly at bedtime. 04/29/2019 cyclobenzaprine 10 MG tablet Take 10 mg by mouth 2 (two) times daily as needed for Muscle Spasms. 09/01/2018 esomeprazole 40 MG capsule Take 40 mg by mouth daily. 04/27/2019 psyllium 51.7 % packet Take 1 packet by mouth daily. tadalafil 5 MG tablet Take 5 mg by mouth as needed for Erectile Dysfunction. 03/23/2019 hydrocortisone 2.5 % cream KENY TOPICALLY AA PRN 06/24/2018 1 levoFLOXacin (LEVAQUIN) 500 MG tablet Take 1 tablet (500 mg total) by mouth daily for 10 days. 10 tablet 12/29/2020 1 MONUROL 3 g Pack MX AND DRK 3 GRAMS PO Q 2 WKS 04/29/2019 1 documented as of this encounter ED Notes * Chance Beard MD - 12/29/2020 2:17 PM CDT Emergency Department Note Chief Complaint Chief Complaint Patient presents with ??? Urinary Symptoms History of Present Illness Patient presents with complaints of urinary frequency, dysuria, and lower abdominal pain which is been ongoing for the past 2 days. The patient has a history of recurrent urinary tract infections andis currently on daily Macrobid therapy. They decided to take a dose of fosfomycin last night that they had remaining from previous suppressive therapy. Patient sees infectious disease at [facility]. Patient has noted some discomfort in his scrotum today as well. He has a history of epididymitis in the past. What prompted an ER visit today was a fever of 102F at home for which the patient took tylenol. He has a history of admission for urosepsis in the past. Medical History ALLERGIES: Allergies Allergen Reactions ??? Sulfa Antibiotics Unknown MEDICATIONS: Prior to Admission medications Medication Sig Start Date End Date Taking? Authorizing Provider levoFLOXacin (LEVAQUIN) 500 MG tablet Take 1 tablet (500 mg total) by mouth daily for 10 days. 12/29/20 01/08/21 Yes Chance Beard MD carBAMazepine XR 200 MG 12 hr tablet Take 1,000 mg by mouth nightly at bedtime. 04/29/19 Doc Abstract cyclobenzaprine 10 MG tablet Take 10 mg by mouth 2 (two) times daily as needed for Muscle Spasms. 09/01/18 Doc Abstract esomeprazole 40 MG capsule Take 40 mg by mouth daily. 04/27/19 Doc Abstract hydrocortisone 2.5 % cream KENY TOPICALLY AA PRN 06/24/18 Doc Abstract MONUROL 3 g Pack MX AND DRK 3 GRAMS PO Q 2 WKS 04/29/19 Doc Abstract psyllium 51.7 % packet Take 1 packet by mouth daily. Doc Abstract tadalafil 5 MG tablet Take 5 mg by mouth as needed for Erectile Dysfunction. 03/23/19 Doc Abstract PAST MEDICAL HISTORY: Past Medical History: [...] History Tobacco Use ??? Smoking status: Former Smoker Types: Cigarettes Quit date: 06/11/2018 Years since quittin.5 ??? Smokeless tobacco: Never Used Substance Use Topics ??? Alcohol use: Yes Comment: socially ??? Drug use: Never Review of Systems Review of Systems Constitutional: Positive for fever. Negative for chills. HENT: Negative for congestion. Eyes: Negative for discharge. Respiratory: Negative for cough, shortness of breath and wheezing. Cardiovascular: Negative for chest pain and palpitations. Gastrointestinal: Positive for abdominal pain. Negative for nausea and vomiting. Endocrine: Negative for polyuria. Genitourinary: Positive for dysuria, frequency and testicular pain. Musculoskeletal: Negative for joint swelling. Skin: Negative for color change and rash. Hematological: Negative for adenopathy. Psychiatric/Behavioral: Negative for confusion. All other systems reviewed and are negative. Physical Exam Filed Vitals: 12/29/20 1332 BP: 127/60 Pulse: 101 Resp: 20 Temp: 99 ??F (37.2 ??C) TempSrc: Temporal SpO2: 97% Weight: 111.1 kg (245 lb) Height: 5' 8 (1.727 m) Physical Exam Vitals and nursing note reviewed. Constitutional: General: He is not in acute distress. Appearance: He is well-developed. HENT: Head: Normocephalic and atraumatic. Eyes: Conjunctiva/sclera: Conjunctivae normal. Cardiovascular: Rate and Rhythm: Regular rhythm. Tachycardia present. Heart sounds: Normal heart sounds. No murmur. No friction rub. No gallop. Pulmonary: Effort: Pulmonary effort is normal. No respiratory distress. Breath sounds: Normal breath sounds. No wheezing or rales. Abdominal: General: There is no distension. Palpations: Abdomen is soft. There is no mass. Tenderness: There is abdominal tenderness (low midline). There is no guarding. Genitourinary: Comments: There is tenderness to the testicles bilaterally. No spermatic cord tenderness. Musculoskeletal: General: Normal range of motion. Skin: General: Skin is warm and dry. Neurological: Mental Status: He is alert and oriented to person, place, and time. Psychiatric: Behavior: Behavior normal. Thought Content: Thought content normal. Judgment: Judgment normal. Diagnostic Studies / Procedures RHYTHM STRIP INTERPRETATION: Rhythm: Sinus tachycardia, No ventricular ectopy Pulse: 101 PULSE OX INTERPRETATION: SpO2: 97 % Oxygen delivery: Room air Interpretation: No hypoxia at this time EKG: No results found for this visit on 12/29/20. EKG interpretation: EKG not performed. Dr. Beard has personally visualized and interpreted the EKG. LABORATORY STUDIES: Results for orders placed or performed during the hospital encounter of 12/29/20 URINALYSIS, AUTO, COMPLETE Result Value Ref Range COLOR (U) YELLOW TRANSPARENCY CLEAR Specific [place] (U) 1.010 1.000 - 1.030 U PH 8.0 5.0 - 9.0 LEUKOCYTE ESTERASE TRACE (A) NEGATIVE NITRITES NEGATIVE NEGATIVE PROTEIN (U) NEGATIVE NEGATIVE URINE GLUCOSE NEGATIVE NEGATIVE U KETONES NEGATIVE NEGATIVE BILIRUBIN (U) NEGATIVE NEGATIVE BLOOD NEGATIVE NEGATIVE WBC/HPF NONE SEEN 0 - 5 /HPF RBC/HPF NONE SEEN 0 - 5 /HPF EPI/HPF NONE SEEN /HPF CULTURE & SENSITIVITY INDICATED? CULTURE IS NOT INDICATED CBC W/DIFF AUTOMATED Result Value Ref Range WBC 7.3 4.4 - 11.0 x10'3/uL RBC 4.02 (L) 4.50 - 5.90 x10'6/uL HGB 11.8 (L) 14.0 - 17.5 G/DL HCT 36.3 (L) 41.5 - 50.4 % MCV 90.3 80.0 - 96.0 FL MCH 29.4 26.5 - 31.4 PG MCHC 32.5 31.9 - 34.8 G/DL RDW 12.5 12.3 - 14.3 % PLT 160 151 - 353 x10'3/uL MPV 9.1 (L) 9.7 - 11.9 FL SEG NEUTROPHILS 85 (H) 42 - 72 % BANDS 1 % LYMPHOCYTES 11 (L) 15.8 - 45.0 % MONOCYTES 1 (L) 5.7 - 12.5 % IMMATURE GRANS 2.0 % ABS. NEUTROPHILS 6.28 (H) 1.40 - 6.00 x10'3/uL ABS. LYMPHOCYTES 0.80 0.80 - 4.70 x10'3/uL PLT MORPH. NORMAL RBC MORPHOLOGY NORMAL WBC MORPHOLOGY NORMAL COMPREHENSIVE METABOLIC PANEL Result Value Ref Range GLUCOSE 113 (H) 70 - 99 MG/DL BUN 10 7 - 18 MG/DL CREATININE S/P/B 1.07 0.7 - 1.3 MG/DL SODIUM 139 136 - 145 MMOL/L POTASSIUM 3.9 3.5 - 5.1 MMOL/L CHLORIDE S/P/B 100 100 - 108 MMOL/L CO2 30.6 21 - 32 MMOL/L CALCIUM 8.3 (L) 8.5 - 10.1 MG/DL BILIRUBIN TOTAL S/P/B 0.4 0.2 - 1.2 MG/DL TOTAL PROTEIN S/P/B 7.0 6.4 - 8.2 G/DL ALBUMIN S/P/B 3.5 3.4 - 5.0 G/DL AST 23 15 - 37 U/L ALT 29 16 - 60 U/L ALKALINE PHOSPHATASE S/P/B 121 50 - 136 U/L ANION GAP 8.4 5 - 15 MMOL/L BUN CREATININE RATIO 9.3 6 - 26 A/G RATIO 1.0 1.0 - 2.0 RATIO eGFR Non-Afr. Amer. 81 (L) >90 ML/MIN/1.73 M2 eGFR Afr. Amer. >90 >90 ML/MIN/1.73 M2 LACTIC ACID Result Value Ref Range LACTIC ACID 1.2 0.4 - 2.0 MMOL/L PROCALCITONIN (PCT) Result Value Ref Range Procalcitonin 2.27 (H) 0.00 - 0.25 NG/ML CORONAVIRUS (COVID-19) ANTIGEN [RAPID IN HOUSE TEST] Specimen: NASAL Result Value Ref Range CORONAVIRUS ANTIGEN IA NEGATIVE NEGATIVE Specimen Type NASAL FIRST TEST UNKNOWN EMPLOYED IN HEALTHCARE NO SYMPTOMATIC DEFINED BY CDC YES DATE OF SYMPTOM ONSET [id number] HOSPITALIZATION STATUS NO RESIDENT OF [facility] NO IMAGING STUDIES XR CHEST PORTABLE Final Result by User, [id number] (12/29 1846) IMAGING STUDIES: XR CHEST PORTABLE EXAM DATE/TIME: 12/29/2020 3:52 PM CLINICAL HISTORY: fever . . COMPARISON STUDIES: No previous available. FINDINGS AND IMPRESSION: CHEST: 1. The cardiomediastinal silhouette is not enlarged. 2. Lungs are clear, increased attenuation at the bases due to superimposed soft tissues. 3. No significant pleural effusion, no pneumothorax. 4. Postsurgical changes in the neck. Referred By: CHANCE BEARD Interpreted By: Raj Hendricks, 12/29/2020 4:[address] ABD+PEL W CON Final Result by User, [id number] (12/29 1876) IMAGING STUDIES: CT ABD+PEL W CON DATE: 12/29/2020 3:52 PM CLINICAL HISTORY: Abdominal pain, fever . COMPARISON STUDIES: 05/11/2019. TECHNIQUE: Helical axial images were acquired from the lung bases to the symphysis pubis after the administration of intravenous contrast. Sagittal and coronal reconstructions were created. Radiation dose reduction technique was utilized. CONTRAST: 85cc Isovue 370 IV. FINDINGS AND IMPRESSION: LOWER CHEST: 1. Stable left small pulmonary nodule 6 mm. 2. Concentric mucosal thickening of the esophagus, correlate with history of reflux, esophagitis and its complications. ABDOMEN: 1. Hepatobiliary: No obvious focal lesions. Normal appearing gallbladder. 2. Spleen: No lesions, no splenomegaly. 3. Pancreas: No focal lesions. 4. Adrenal glands: No focal lesions. 5. Kidneys: No focal lesions. No hydronephrosis or nephrolithiasis. 6. Retroperitoneal and mesenteric space: The visible lymph nodes do not appear pathologically enlarged. 7. Stomach and bowel: Nonobstructive pattern. . 8. Aorta: Mild atherosclerotic disease. PELVIS: 1. Appendix: Not pathologically distended. 2. Colon and rectum: Not obstructed. No acute diverticulitis. 3. Genitourinary: Mildly enlarged prostate, correlate clinically. Urinary bladder demonstrates thickened cormier and surrounding fat stranding which suggest the presence of cystitis. 4. Pelvic space: No free fluid. BONES AND OTHER INCIDENTAL FINDINGS: 1. Bones: Status post ORIF right femur. Degenerative changes of the hips. Voice recognition software utilized. Referred By: CHANCE BEARD Interpreted By: Raj Hendricks, 12/29/2020 4:42 PM US TESTICULAR Final Result by User, [id number] (12/29 2258) Addendum 1 of 1 by User, [id number] (12/29 6892) Comparison studies: Testicular ultrasound 05/13/2019 Referred By: CHANCE BEARD Interpreted By: Raj Hendricks, 12/29/2020 4:41 PM Final IMAGING STUDIES: US TESTICULAR DATE: 12/29/2020 3:38 PM CLINICAL HISTORY: testicular pain . . COMPARISON STUDIES: No previous available. FINDINGS: Real-time ultrasound examination performed by the phlebotomist supervisor/instructor demonstrates: The right testicle measures 3.7 x 2 x 2.8 cm. Demonstrates homogeneous echotexture with no discrete lesions. Present flow. Small hydrocele. Tangle of dilated vessels, increased with Valsalva. Hypoechoic heterogeneous lesion 6 x 6 x 8 mm. The left testicle measures 3.6 x 2.2 x 2.7 cm. Demonstrates homogeneous echotexture with no discrete lesions. Present flow. Small to moderate hydrocele. Small epididymal cysts, the largest 4 x 3 mm. Bilateral increased hyperemia. IMPRESSION: 1. Bilateral increased testicular hyperemia and small hydroceles could indicated the presence of orchitis. 2. Right varicocele, recommend CT abdomen and pelvis to further evaluate. 3. Small right intratesticular lesion, urology consultation recommended as testicular CA is of concern.. Referred By: CHANCE BEARD Interpreted By: Raj Hendricks, 12/29/2020 4:[address] Beard has personally visualized and interpreted all imaging studies. ED Course / Medical Decision Making MDM Number of Diagnoses or Management Options Cystitis: new and requires workup Orchitis: new and requires workup Diagnosis management comments: Patient presents with complaints of fevers associated with history of recurrent UTIs, and sepsis. The patient was given a dose of IV antibiotics. His urine today looks clear but he has been taking additional antibiotics since yesterday. The patient's procalcitonin waselevated suggesting bacterial infection and his ultrasound and CT scan showed signs of inflammationboth of his bladder and both testicles. I have advised the patient be admitted given his complicated history for continued IV antibiotics and monitoring but ultimately the patient decided to leave the hospital. I will prescribe him 10-day course of Levaquin while cultures are pending. He is invitedto return if worse in any way and is otherwise stable at the time of discharge. I have discussed the case with Dr. Alvarez who had agreed to admit the patient but ultimately they refused to stay. Amount and/or Complexity of Data Reviewed Clinical lab tests: ordered and reviewed Tests in the radiology section of CPT??: ordered and reviewed Discuss the patient with other providers: yes Independent visualization of images, tracings, or specimens: yes Risk of Complications, Morbidity, and/or Mortality Presenting problems: moderate Diagnostic procedures: low Management options: moderate Patient Progress Patient progress: improved Medications levoFLOXacin (LEVAQUIN) IVPB 750 mg (0 mg Intravenous Infusion Stop Time 12/29/20 1658) iopamidol (ISOVUE-370) 76 % injection 85 mL (85 mLs Intravenous Given 12/29/20 1619) sodium chloride 0.9% bolus infusion SOLN 1,000 mL (0 mLs Intravenous Infusion Stop Time 12/29/20 1814) SNOMED CT(R) 1. Cystitis CYSTITIS 2. Orchitis ORCHITIS Discharge Medication List as of 12/29/2020 6:41 PM START taking these medications Details levoFLOXacin (LEVAQUIN) 500 MG tablet Take 1 tablet (500 mg total) by mouth daily for 10 days., Starting Fri12/29/2020, Until Fri01/08/2021, Eprescribe Class: Eprescribe Pharmacy: [id number] [place] [address] (Ph #: [phone]) Disposition: Discharge Follow-Up: [facility] Emergency Room [address] [place] [address] If symptoms worsen Chance Beard MD 12/29/2020 6:50 PM Chance Beard MD 12/29/20 1850 * Chance Beard MD - 12/29/2020 1:59 PM CDT Erroneous second note. Please see other note for full documentation. Chance Beard MD 01/01/21 1011 * Aimee Tenorio RN - 12/29/2020 1:30 PM CDT Woke up this AM and was feeling shaky at 0730, has history of chronic UTI. Has been on macrobid daily for control of UTI. 0730 98.6 took antibiotic and tylenol then an hour later temp was 101. About a half hour later he was 103, gave more tylenol and temp went down to 101. documented in this encounter Plan of Treatment Not on file documented as of this encounter Goals Goal Patient Goal Type Associated Problems Recent Progress Patient-Stated? Author Return home General No Zayra Kidd, SHIP FASTENER Note: Plan to return home with significant other. No DME or home health needed at this time. documented as of this encounter Procedures Procedure Name Priority Date/Time Associated Diagnosis Comments XR CHEST PORTABLE STAT 12/29/2020 4:[address] ABD+PEL W CON STAT 12/29/2020 4:25 PM CDT US TESTICULAR STAT 12/29/2020 4:13 PM CDT CULTURE, BACTERIA, BLOOD STAT 12/29/2020 3:08 PM CDT CORONAVIRUS (COVID-19) ANTIGEN DIRECT OPTICAL STAT 12/29/2020 3:00 PM CDT PROCALCITONIN (PCT) STAT 12/29/2020 2 :57 PM CDT COMPREHENSIVE METABOLIC PANEL STAT 12/29/2020 2:57 PM CDT LACTIC ACID STAT 12/29/2020 2:57 PM CDT CULTURE, BACTERIA, BLOOD STAT 12/29/2020 2:57 PM CDT CBC W/DIFF AUTOMATED STAT 12/29/2020 2:57 PM CDT URINE BACTERIA CULTURE STAT 1:32 PM CDT URINALYSIS, AUTO, COMPLETE STAT 12/29/2020 1:32 PM CDT documented in this encounter Results * XR CHEST PORTABLE (12/29/2020 4:36 PM CDT) Anatomical Region Laterality Modality Chest Radiographic Cata ging 12/29/2020 4:40 PM CDT Impressions 12/29/2020 4:41 PM CDT FINDINGS AND IMPRESSION: CHEST: 1. ??The cardiomediastinal silhouette is not enlarged. 2. ??Lungs are clear, increased attenuation at the bases due to superimposed soft tissues. 3. ??No significant pleural effusion, no pneumothorax. 4. ??Postsurgical changes in the neck. Referred By: CHANCE BEARD Interpreted By: Raj Hendricks, 12/29/2020 4:40 PM Narrative 12/29/2020 4:41 PM CDT IMAGING STUDIES: ??XR CHEST PORTABLE ? EXAM DATE/TIME: 12/29/2020 3:52 PM CLINICAL HISTORY: ??fever ?? . . COMPARISON STUDIES: No previous available. ?? Procedure Note Raj Hendricks MD - 12/29/2020 IMAGING STUDIES: XR CHEST PORTABLE EXAM DATE/TIME: 12/29/2020 3:52 PM CLINICAL HISTORY: fever . . COMPARISON STUDIES: No previous available. FINDINGS AND IMPRESSION: CHEST: 1. The cardiomediastinal silhouette is not enlarged. 2. Lungs are clear, increased attenuation at the bases due tosuperimposed soft tissues. 3. No significant pleural effusion, no pneumothorax. 4. Postsurgical changes in the neck. Referred By: CHANCE BEARD Interpreted By: Raj Hendricks, 12/29/2020 4:40 PM us Chance Beard MD GENERAL IMAGING Final Result * CT ABD+PEL W CON (12/29/2020 4:25 PM CDT) Anatomical Region Laterality Modality Abdomen Computed Tomogra phy 12/29/2020 4:42 PM CDT Impressions 12/29/2020 4:50 PM CDT FINDINGS AND IMPRESSION: LOWER CHEST: 1. ??Stable left small pulmonary nodule 6 mm. 2. ??Concentric mucosal thickening of the esophagus, correlate with history of reflux, esophagitis and its complications. ABDOMEN: 1. ??Hepatobiliary: No obvious focal lesions. Normal appearing gallbladder. 2. ??Spleen: No lesions, no splenomegaly. 3. ??Pancreas: No focal lesions. 4. ??Adrenal glands: No focal lesions. 5. ??Kidneys: No focal lesions. No hydronephrosis or nephrolithiasis. 6. ??Retroperitoneal and mesenteric space: The visible lymph nodes do not appear pathologically enlarged. 7. ??Stomach and bowel: Nonobstructive pattern. . 8. ??Aorta: Mild atherosclerotic disease. PELVIS: 1. ??Appendix: Not pathologically distended. 2. ??Colon and rectum: Not obstructed. No acute diverticulitis. 3. ??Genitourinary: Mildly enlarged prostate, correlate clinically. Urinary bladder demonstrates thickened cormier and surrounding fat stranding which suggest the presence of cystitis. 4. ??Pelvic space: No free fluid. BONES AND OTHER INCIDENTAL FINDINGS: 1. ??Bones: Status post ORIF right femur. Degenerative changes of the hips. Voice recognition software utilized. Referred By: CHANCE BEARD Interpreted By: Raj Hendricks, 12/29/2020 4:42 PM Narrative 12/29/2020 4:50 PM CDT IMAGING STUDIES: ?? CT ABD+PEL W CON ? DATE: ??12/29/2020 3:52 PM CLINICAL HISTORY: ??Abdominal pain, fever ?? . COMPARISON STUDIES: 05/11/2019. ?? TECHNIQUE: ??Helical axial images were acquired from the lung bases to the symphysis pubis after the administration of intravenous contrast. ??Sagittal and coronal reconstructions were created. Radiation dose reduction technique was utilized. CONTRAST: 85cc Isovue 370 IV. Procedure Note Raj Hendricks MD - 12/29/2020 IMAGING STUDIES: CT ABD+PEL W CON DATE: 12/29/2020 3:52 PM CLINICAL HISTORY: Abdominal pain, fever . COMPARISON STUDIES: 05/11/2019. TECHNIQUE: Helical axial images were acquired from the lung bases to thesymphysis pubis after the administration of intravenous contrast.Sagittal and coronal reconstructions were created. Radiation dosereduction technique was utilized. CONTRAST: 85cc Isovue 370 IV. FINDINGS AND IMPRESSION: LOWER CHEST: 1. Stable left small pulmonary nodule 6 mm. 2. Concentric mucosal thickening of the esophagus, correlate with historyof reflux, esophagitis and its complications. ABDOMEN: 1. Hepatobiliary: No obvious focal lesions. Normal appearinggallbladder. 2. Spleen: No lesions, no splenomegaly. 3. Pancreas: No focal lesions. 4. Adrenal glands: No focal lesions. 5. Kidneys: No focal lesions. No hydronephrosis or nephrolithiasis. 6. Retroperitoneal and mesenteric space: The visible lymph nodes do notappear pathologically enlarged. 7. Stomach and bowel: Nonobstructive pattern. . 8. Aorta: Mild atherosclerotic disease. PELVIS: 1. Appendix: Not pathologically distended. 2. Colon and rectum: Not obstructed. No acute diverticulitis. 3. Genitourinary: Mildly enlarged prostate, correlate clinically. Urinarybladder demonstrates thickened cormier and surrounding fat stranding whichsuggest the presence of cystitis. 4. Pelvic space: No free fluid. BONES AND OTHER INCIDENTAL FINDINGS: 1. Bones: Status post ORIF right femur. Degenerative changes of thehips. Voice recognition software utilized. Referred By: CHANCE BEARD Interpreted By: Raj Hendricks, 12/29/2020 4:42 PM us Chance Beard MD CT Final Result * US TESTICULAR (12/29/2020 4:13 PM CDT) Anatomical Region Laterality Modality Pelvis Ultrasound 12/29/2020 4:14 PM CDT Addenda Addendum by Raj Hendricks MD on 12/29/2020 4:45 PM CDT Comparison studies: Testicular ultrasound 05/13/2019 Referred By: CHANCE BEARD Interpreted By: Raj Hendricks, 12/29/2020 4:41 PM Impressions 12/29/2020 4:22 PM CDT IMPRESSION: 1. ??Bilateral increased testicular hyperemia and small hydroceles could indicated the presence of orchitis. 2. ??Right varicocele, recommend CT abdomen and pelvis to further evaluate. 3. ??Small right intratesticular lesion, urology consultation recommended as testicular CA is of concern.. Referred By: CHANCE BEARD Interpreted By: Raj Hendricks, 12/29/2020 4:14 PM Narrative 12/29/2020 4:22 PM CDT IMAGING STUDIES: ??US TESTICULAR ? DATE: ??12/29/2020 3:38 PM CLINICAL HISTORY: ??testicular pain ?? . . COMPARISON STUDIES: No previous available. ?? FINDINGS: Real-time ultrasound examination performed by the phlebotomist supervisor/instructor demonstrates: The right testicle measures 3.7 x 2 x 2.8 cm. Demonstrates homogeneous echotexture with no discrete lesions. Present flow. Small hydrocele. Tangle of dilated vessels, increased with Valsalva. Hypoechoic heterogeneous lesion 6 x 6 x 8 mm. The left testicle measures 3.6 x 2.2 x 2.7 cm. Demonstrates homogeneous echotexture with no discrete lesions. Present flow. Small to moderate hydrocele. Small epididymal cysts, the largest 4 x 3 mm. Bilateral increased hyperemia. Procedure Note Raj Hendricks MD - 12/29/2020 IMAGING STUDIES: US TESTICULAR DATE: 12/29/2020 3:38 PM CLINICAL HISTORY: testicular pain . . COMPARISON STUDIES: No previous available. FINDINGS: Real-time ultrasound examination performed by the ultrasonographerdemonstrates: The right testicle measures 3.7 x 2 x 2.8 cm. Demonstrates homogeneousechotexture with no discrete lesions. Present flow. Small hydrocele.Tangle of dilated vessels, increased with Valsalva. Hypoechoicheterogeneous lesion 6 x 6 x 8 mm. The left testicle measures 3.6 x 2.2 x 2.7 cm. Demonstrates homogeneousechotexture with no discrete lesions. Present flow. Small to moderatehydrocele. Small epididymal cysts, the largest 4 x 3 mm. Bilateral increased hyperemia. IMPRESSION: 1. Bilateral increased testicular hyperemia and small hydroceles couldindicated the presence of orchitis. 2. Right varicocele, recommend CT abdomen and pelvis to furtherevaluate. 3. Small right intratesticular lesion, urology consultation recommendedas testicular CA is of concern.. Referred By: CHANCE BEARD Interpreted By: Raj Hendricks, 12/29/2020 4:14 PM Chance Beard MD ULTRASOUND Edited Result - Final * CULTURE, BACTERIA, BLOOD (12/29/2020 3:08 PM CDT) SPEC DESCRIPTION BLOOD 12/29/2020 2:07 PM CDT [facility] SPECIAL REQUESTS NO SPECIAL REQUEST 12/29/2020 2:07 PM CDT [facility] CULTURE RESULT NO GROWTH 5 DAYS 01/03/2021 8:25 AM CDT [facility] BLOOD SPECIMEN OBTAINED FOR BLOOD CULTURE / Unknown 12/29/2020 3:08 PM CDT 12/29/2020 3:13 PM CDT Chance Beard MD MICROBIOLOGY - GENERAL ORDERABLE S Final Result [facility] [address] [facility] [place] [address], [place] [phone] [facility] [address] [place] [address], [place] [phone] * CORONAVIRUS (COVID-19) ANTIGEN [RAPID IN HOUSE TEST] (12/29/2020 3:00 PM CDT) CORONAVIRUS ANTIGEN IA NEGATIVE NEGATIVE 12/29/2020 3:33 PM CDT [facility] Comment: NEGATIVE RESULTS DO NOT RULE OUT SARS-COV-2 INFECTION AND SHOULD NOT BE USED THE SOLE BASIS FOR TREATMENT OR PATIENT MANAGEMENT DECISIONS, INCLUDING INFECTION CONTROL DECISIONS. NEGATIVE RESULTS SHOULD BE CONSIDERED IN THE CONTEXT OF A PATIENT'S RECENT EXPOSURES, HISTORY AND THE PRESENCE OF CLINICAL SIGNS AND SYMPTOMS CONSISTENT WITH COVID 19. THIS TEST HAS BEEN AUTHORIZED BY THE FDA UNDER AN EMERGENCY USE AUTHORIZATION (EUA) FOR USE BY AUTHORIZED LABORATORIES. SPECIMEN TYPE NASAL 12/29/2020 3:00 PM CDT [facility] FIRST TEST UNKNOWN 12/29/2020 3:00 PM CDT [facility] EMPLOYED IN HEALTHCARE NO 12/29/2020 3:00 PM CDT [facility] SYMPTOMATIC DEFINED BY CDC YES 12/29/2020 3:00 PM CDT [facility] DATE OF SYMPTOM ONSET [id number] 12/29/2020 3:00 PM CDT [facility] HOSPITALIZATION STATUS NO 12/29/2020 3:00 PM CDT [facility] RESIDENT OF [facility] NO 12/29/2020 3:00 PM CDT [facility] Specimen from nose (specimen) NASAL STRUCTURE / Unknown 12/29/2020 3:00 PM CDT us Chance Beard MD MICROBIOLOGY - GENERAL ORDERABLE S Final Result [facility] [address] [place] [address], * (ABNORMAL) PROCALCITONIN (PCT) (12/29/2020 2:57 PM CDT) [facility] Procalcitonin 2.27(H) 0.00 - 0.25 NG/ML 12/29/2020 3:41 PM CDT [facility] Comment: PROCALCITONIN INTERPRETATION GUIDELINES LOWER RESPIRATORY TRACT INFECTIONS (LRTI): USE OF PCT IN INPATIENT OR EMERGENCY SITUATION INITIATION OF ANTIBIOTICS PCT VALUE ? INTERPRETATION <0.10 NG/ML ?ANTIBIOTIC THERAPY ? STRONGLY DISCOURAGED. 0.10-0.25 NG/ML ?ANTIBIOTIC THERAPY ? DISCOURAGED. 0.26-0.50 NG/ML ?ANTIBIOTIC THERAPY ? ENCOURAGED. >0.50 NG/ML ?ANTIBIOTIC THERAPY ? STRONGLY ENCOURAGED. DISCONTINUE ANTIBIOTICS PCT LESS THAN OR EQUAL TO 0.25 NG/ML OR DELTA PCT >80 PERCENT DELTA PCT= PCT(PEAK)-PCT(CURRENT)/PCT(PEAK)X100% STUDIES HAVE EVALUATED PCT PROTOCOLS IN THESE PATIENTS AND FOUND THAT FOR PATIENTS WHO ARE CLINICALLY STABLE AND ARE TREATED AT THE ED OR ARE HOSPITALIZED, THE INITIATION OF ANTIBIOTIC THERAPY SHOULD BE BASED ON CLINICAL GROUNDS AND A PCT VALUE OF GREATER THAN OR EQUAL TO 0.26 NG/ML. IF PCT REMAINS LOWER, ANTIBIOTICS CAN BE WITHHELD AND PATIENTS CAN BE REASSESSED CLINICALLY WITHOUT SAFETY CONCERNS. IF PATIENTS ARE CLINICALLY STABLE, AN ALTERNATIVE DIAGNOSIS SHOULD BE CONSIDERED. IF PATIENTS ARE UNSTABLE, THEN ANTIBIOTICS MAY BE CONSIDERED. IF PATIENTS DO NOT IMPROVE IN THE SHORT FOLLOW UP PERIOD OF 6 TO 12 HOURS, CLINICAL RE-EVALUATION AND RE-MEASUREMENT OF PCT IS RECOMMENDED. 12/29/2020 2:57 PM CDT us Chance Beard MD LABORATORY Final Result [facility] [address] [place] [address], [place] [phone] * LACTIC ACID (12/29/2020 2:57 PM CDT) LACTIC ACID VENOUS 1.2 0.4 - 2.0 MMOL/L 12/29/2020 3:27 PM CDT [facility] 12/29/2020 2:57 PM CDT us Chance Beard MD LABORATORY Final Result Performing Organization Address [facility]/ZIP Co de Phone Number [facility] [address] [place] [address], [place] [phone] * CULTURE, BACTERIA, BLOOD (12/29/2020 2:57 PM CDT) SPEC DESCRIPTION BLOOD 12/29/2020 2:07 PM CDT [facility] SPECIAL REQUESTS NO SPECIAL REQUEST 12/29/2020 2:07 PM CDT [facility] CULTURE RESULT NO GROWTH 5 DAYS 01/03/2021 8:25 AM CDT [facility] BLOOD SPECIMEN OBTAINED FOR BLOOD CULTURE / Unknown 12/29/2020 2:57 PM CDT 12/29/2020 3:05 PM CDT us Chance Beard MD MICROBIOLOGY - GENERAL ORDERABLE S Final Result [facility] [address] [place] [address], [place] [phone] [facility] [address] [place] [address], [place] [phone] * (ABNORMAL) COMPREHENSIVE METABOLIC PANEL (12/29/2020 2:57 PM CDT) [facility] GLUCOSE 113(H) 70 - 99 MG/DL 12/29/2020 3:36 PM CDT [facility] BUN 10 7 - 18 MG/DL 12/29/2020 3:36 PM CDT [facility] CREATININE S/P/B 1.07 0.7 - 1.3 MG/DL 12/29/2020 3:36 PM CDT [facility] SODIUM S/P/B 139 136 - 145 MMOL/L 12/29/2020 3:36 PM CDT [facility] POTASSIUM S/P/B 3.9 3.5 - 5.1 MMOL/L 12/29/2020 3:36 PM CDT [facility] CHLORIDE S/P/B 100 100 - 108 MMOL/L 12/29/2020 3:36 PM CDT [facility] CO2 30.6 21 - 32 MMOL/L 12/29/2020 3:36 PM T [facility] CALCIUM S/P/B 8.3(L) 8.5 - 10.1 MG/DL 12/29/2020 3:36 PM T [facility] BILIRUBIN TOTAL S/P/B 0.4 0.2 - 1.2 MG/DL 12/29/2020 3:36 PM T [facility] TOTAL PROTEIN S/P/B 7.0 6.4 - 8.2 G/DL 12/29/2020 3:36 PM T [facility] ALBUMIN S/P/B 3.5 3.4 - 5.0 G/DL 12/29/2020 3:36 PM CDT [facility] AST 23 15 - 37 U/L 12/29/2020 3:36 PM CDT [facility] ALT 29 16 - 60 U/L 12/29/2020 3:36 PM CDT [facility] ALKALINE PHOSPHATASE S/P/B 121 50 - 136 U/L 12/29/2020 3:36 PM CDT [facility] ANION GAP 8.4 5 - 15 MMOL/L 12/29/2020 3:36 PM CDT [facility] BUN CREATININE RATIO 9.3 6 - 26 12/29/2020 3:36 PM CDT [facility] A/G RATIO 1.0 1.0 - 2.0 RATIO 12/29/2020 3:36 PM CDT [facility] EGFR NON-AFR. AMER. 81(L) >90 ML/MIN/1.7 3 M2 12/29/2020 3:36 PM CDT [facility] EGFR AFR. AMER. >90 >90 ML/MIN/1.7 3 M2 12/29/2020 3:36 PM CDT [facility] Comment: NOTE: eGFR is not calculated for patients <18 years of age. This is an estimated GFR (CKD EPI) and should not be used for calculating drug doses. 12/29/2020 2:57 PM CDT Chance Beard MD LABORATORY Final Result [facility] [address] [place] [address], * (ABNORMAL) CBC W/DIFF AUTOMATED (12/29/2020 2:57 PM CDT) WBC 7.3 4.4 - 11.0 x10'3/uL 12/29/2020 3:15 PM CDT [facility] RBC 4.02(L) 4.50 - 5.90 x10'6/uL 12/29/2020 3:15 PM CDT [facility] HGB 11.8(L) 14.0 - 17.5 G/DL 12/29/2020 3:15 PM CDT [facility] HCT 36.3(L) 41.5 - 50.4 % 12/29/2020 3:15 PM CDT [facility] MCV 90.3 80.0 - 96.0 FL 12/29/2020 3:15 PM CDT [facility] MCH 29.4 26.5 - 31.4 PG 12/29/2020 3:15 PM CDT [facility] MCHC 32.5 31.9 - 34.8 G/DL 12/29/2020 3:15 PM CDT [facility] RDW 12.5 12.3 - 14.3 % 12/29/2020 3:15 PM CDT [facility] PLT 160 151 - 353 x10'3/uL 12/29/2020 3:15 PM CDT [facility] MPV 9.1(L) 9.7 - 11.9 FL 12/29/2020 3:15 PM CDT [facility] SEG NEUTROPHILS 85(H) 42 - 72 % 3:30 PM CDT [facility] BANDS 1 % 12/29/2020 3:30 PM CDT [facility] LYMPHOCYTES 11(L) 15.8 - 45.0 % 12/29/2020 3:30 PM CDT [facility] MONOCYTES 1(L) 5.7 - 12.5 % 12/29/2020 3:30 PM CDT [facility] IMMATURE GRANS % 2.0 % 12/30/19 3:30 PM CDT [facility] ABS. NEUTROPHILS 6.28(H) 1.40 - 6.00 x10'3/uL 12/29/2020 3:30 PM CDT [facility] ABS. LYMPHOCYTES 0.80 0.80 - 4.70 x10'3/uL 12/29/2020 3:30 PM CDT [facility] PLT MORPH. NORMAL 12/29/2020 3:30 PM CDT [facility] RBC MORPHOLOGY NORMAL 12/29/2020 3:30 PM CDT [facility] WBC MORPHOLOGY NORMAL 12/29/2020 3:30 PM CDT [facility] 12/29/2020 2:57 PM CDT Chance Beard MD LABORATORY Final Result Performing Organization Address City/State/[facility] Co de Phone Number [facility] [address] [place] [phone], * (ABNORMAL) CULTURE URINE (12/29/2020 1:32 PM CDT) SPEC DESCRIPTION URINE CLEAN CATCH 12/29/2020 2:22 PM CDT [facility] SPECIAL REQUESTS NO SPECIAL REQUEST 12/29/2020 2:22 PM CDT [facility] CULTURE RESULT 10,000-49,000 COL/ML ENTEROBACTER AEROGENES (A) 12/31/2020 10:03 AM CDT [facility] URINE SPECIMEN OBTAINED BY CLEAN CATCH PROCEDURE / Unknown 12/29/2020 1:32 PM CDT 12/29/2020 3:06 PM CDT Narrative Organism Antibiotic Method Susceptibility Enterobacter aerogenes CEFTRIAXONE SHARON (VITEK) <=1: Sensitive Enterobacter aerogenes CEFTAZIDIME SHARON (VITEK) <=1: Sensitive Enterobacter aerogenes CEFAZOLIN SHARON (VITEK) <=4: Resistant Enterobacter aerogenes NITROFURANTOIN SHARON (VITEK) 64: Intermediate Comment:INTERMEDIATE Enterobacter aerogenes GENTAMICIN SHARON (VITEK) <=1: Sensitive Enterobacter aerogenes LEVOFLOXACIN SHARON (VITEK) <=0.12: Sensitive Enterobacter aerogenes PIPRACIL/TAZO SHARON (VITEK) <=4: Sensitive Enterobacter aerogenes TRIMETH-SULFAMETH. SHARON (VITEK) <=20: Sensitive us Chance Beard MD MICROBIOLOGY - GENERAL ORDERABLE S Final Result [facility] [address] [place] [address], [place] [phone] [facility] [address] [place] [address], [place] [phone] * (ABNORMAL) URINALYSIS, AUTO, COMPLETE (12/29/2020 1:32 PM CDT) COLOR (U) YELLOW 12/29/2020 1:49 PM CDT [facility] TRANSPARENCY CLEAR 12/29/2020 1:49 PM CDT [facility] SPECIFIC GRAVITY (U) 1.010 1.000 - 1.030 12/29/2020 1:49 PM CDT [facility] U PH 8.0 5.0 - 9.0 12/29/2020 1:49 PM CDT [facility] LEUKOCYTES (U) TRACE(A) NEGATIVE 12/29/2020 1:49 PM CDT [facility] NITRITES NEGATIVE NEGATIVE 12/29/2020 1:49 PM CDT [facility] PROTEIN (U) NEGATIVE NEGATIVE 12/29/2020 1:49 PM CDT [facility] URINE GLUCOSE NEGATIVE NEGATIVE 12/29/2020 1:49 PM CDT [facility] KETONES MG/DL (U) NEGATIVE NEGATIVE 12/29/2020 1:49 PM CDT [facility] BILIRUBIN (U) NEGATIVE NEGATIVE 12/29/2020 1:49 PM CDT [facility] BLOOD (U) NEGATIVE NEGATIVE 12/29/2020 1:49 PM CDT [facility] WBC/HPF NONE SEEN 0 - 5 /HPF 12/29/2020 1:49 PM CDT [facility] RBC/HPF NONE SEEN 0 - 5 /HPF 12/29/2020 1:49 PM CDT [facility] EPI/HPF NONE SEEN /HPF 12/29/2020 1:49 PM CDT [facility] CULTURE & SENSITIVITY INDICATED? CULTURE IS NOT INDICATED 12/29/2020 1:49 PM CDT [facility] URINE SPECIMEN OBTAINED BY CLEAN CATCH PROCEDURE / Unknown 12/29/2020 1:32 PM CDT us Chance Beard MD URINE ORDERABLES Final Result [facility] [address] [place] [phone], documented in this encounter Visit Diagnoses Diagnosis Cystitis- Primary Cystitis, unspecified Orchitis Orchitis and epididymitis, unspecified documented in this encounter Administered Medications Inactive Administered Medications - up to 3 most recent administrations Medication Order MAR Action Action Date Dose Rate Site iopamidol (ISOVUE-370) 76 % injection 85 mL 85 mL, Intravenous, IMG once as needed, Contrast, 1 dose, Starting on Fri12/29/20 at 1625, Until Fri12/29/20 at 1619 Given 12/29/2020 4:19 PM CDT 85 mLs Left Arm levoFLOXacin (LEVAQUIN) IVPB 750 mg 750 mg, Intravenous, at 100 mL/hr, Once, 1 dose, On Fri12/29/20 at 1415 New Bag 12/29/2020 3:12 PM CDT 750 mg 100 mL/hr sodium chloride 0.9% bolus infusion SOLN 1,000 mL 1,000 mL, Intravenous, Administer over 15 Minutes, Bolus (Once), 1 dose, On Fri12/29/20 at 1700 New Bag 12/29/2020 5:03 PM CDT 1,000 mLs documented in this encounter Active and Recently Administered Medications Times are shown in CDT. Scheduled Medication Order 12/27/2020 12/28/2020 12/29/2020 levoFLOXacin (LEVAQUIN) IVPB 750 mg (COMPLETED) 750 mg, Intravenous, at 100 mL/hr, Once, 1 dose, On Fri12/29/20 at 1415 1512 (New Bag - Prov ider: Angus Stephenson, RN)1658 (Infusion Stop Time - Provider: Angus Stephenson, RN) sodium chloride 0.9% bolus infusion SOLN 1,000 mL (COMPLETED) 1,000 mL, Intravenous, Administer over 15 Minutes, Bolus (Once), 1 dose, On Fri12/29/20 at 1700 1703 (New Bag - Prov ider: Angus Stephenson RN)1814 (Infusion Stop Time - Provider: Angus Stephenson RN) PRN Medication Order 12/27/2020 12/28/2020 12/29/2020 iopamidol (ISOVUE-370) 76 % injection 85 mL (COMPLETED) 85 mL, Intravenous, IMG once as needed, Contrast, 1 dose, Starting on Fri12/29/20 at 1625, Until Fri12/29/20 at 1619 1619 (Given - Provid er: Steph Solares, RTR) documented in this encounter Additional Health Concerns Infection Onset Date Last Indicated Resolved Time COVID-19 Rule Out 12/29/2020 12/29/2020 12/29/2020 3:34 PM CDT documented as of this encounter Care Teams Director Of Student Financial Services Relationship Specialty Start Date End Date Jose Mo MD [address] [address] PCP - General INTERNAL MEDICINE 05/09/19 documented as of this encounter
--- OUTSIDE RECORDS SUMMARY | 2024-03-26 17:00 | XMS_ITS | Encounter Summary ---
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 do I need to call the doctor? ?? Signs of a very bad reaction. These include trouble breathing; wheezing; chest tightness; fever;itching; bad cough; blue skin color; seizures; or swelling of face, lips, tongue, or throat. Go to the ER right away. ?? Signs of infection. These include a fever of 100.4??F (38??C) or higher, chills, pain with passing urine, back pain, nausea, throwing up, or bloody urine. ?? Signs are worse or do not improve within 24 hours of starting treatment ?? Signs come back after treatment ends ?? You are not feeling better in 2 to 3 days or you are feeling worse Teach Back: Helping You Understand The Teach Back Method helps you understand the information we are giving you. The idea is simple. After talking with the staff, tell them in your own words what you were just told. This helps to makesure the staff has covered each thing clearly. It also helps to explain things that may have been abit confusing. Before going home, make sure you are able to do these: ?? I can tell you about my condition. ?? I can tell you how to prevent this problem from coming back. ?? I can tell you what I will do if my signs do not get better after 24 hours of treatment or come back after I have finished treatment. Where can I learn more? National [employer] http://www.nichd.nih.gov/health/topics/urinary/conditioninfo/Pages/uti.aspx National Kidney and Urologic Diseases Information Clearinghouse http://kidney.niddk.nih.gov/kudiseases/pubs/uti_ez/ Last Reviewed Date 2018-06-02 Consumer Information Use and Disclaimer This information is not specific medical advice and does not replace information you receive from your health care provider. This is only a brief summary of general information. It does NOT include all information about conditions, illnesses, injuries, tests, procedures, treatments, therapies, discharge instructions or life-style choices that may apply to you. You must talk with your health care provider for complete information about your health and treatment options. This information should not be used to decide whether or not to accept your health care provider???s advice, instructions or recommendations. Only your health care provider has the knowledge and training to provide advice that is right for you. Copyright Copyright ?? 2019 [employer] and its affiliates and/or licensors. All rights reserved. 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 * Urinary Tract Infection Discharge Instructions, Adult (Eth[place]ian) documented in this encounter Medications at Time [...] cream KENY TOPICALLY AA PRN 06/24/2018 1 levofloxacin 500 MG tablet Take 1 tablet (500 mg total) by mouth daily for 8 days. 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 PT and girlfriend expresses cautious excitement for possible discharge tomorrow. 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 Observed patient and significant other walking in [place] with WW. Patient and significant other both felt that patient was walking with his usualy gait pattern, but patient didnote that he felt weaker than usual. Patient will resume outpatient PT again next week. Both patient and significant other felt comfortable with his current mobility and no PT needed at this time. 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 In attendance; case management, UR, nursing, PT, OT, cardiopulmonary, DESK SERGEANT, Hospitalist, Pastoral Care, and Pharmacy. Meeting held at 11:00 Possible discharge home tomorrow as long as patient remains fever free. Will return home with his significant other. Denies need for home health or DME. 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 Located over frontal sinus and top of head. Resolved after IV benadryl and Reglan yesterday. Started recurring this AM. Some photophobia. No phonophobia. No meningeal signs, congestion. Some response to caffeine. Objective Filed Vitals: 05/14/19 0420 05/14/19 0725 05/14/19 0728 05/14/19 1155 BP: (!) 156/89 (!) 160/85 (!) 160/85 (!) 144/71 Pulse: 81 81 82 Resp: Temp: 97.9 ??F (36.6 ??C) 97.3 ??F (36.3 ??C) 97.3 ??F (36.3 ??C) 97 ??F (36.1 ??C) TempSrc: Tympanic Tympanic Tympanic SpO2: 93% 90% 90% 92% Weight: Height: Intake/Output 24H Total: Intake/Output Summary (Last 24 hours) at 05/14/2019 1352 Last data filed at 05/14/2019 1155 Gross per 24 hour Intake 2400 ml Output 3995 ml Net -1595 ml Physical Exam: -GENERAL: No acute distress, Well nourished, obese -HEAD: Normocephalic, Atraumatic -EYES: Extraocular movements intact -NECK: supple -LUNGS: Effort normal, Clear to auscultation bilaterally, No wheezes, No crackles, No ronchi -CVS: Regular rate and rhythm, S1 and S2 normal -NEURO: Awake, alert, oriented, No new gross neuro deficits -SKIN: No significant rashes Medications ??? carBAMazepine XR 1,000 mg Oral Nightly at bedtime ??? cyclobenzaprine 10 mg Oral Nightly at bedtime ??? enoxaparin 40 mg Subcutaneous Q24H ??? influenza virus vaccine (QUAD) 0.5 mL Intramuscular Once ??? levofloxacin 500 mg Intravenous Q24H ??? pantoprazole EC 40 mg Oral Daily ??? psyllium 1 packet Oral Daily ??? senna-docusate 1 tablet Oral Nightly at bedtime ??? sodium chloride 125 mL/hr at 05/14/19 1212 acetaminophen, hydrocodone-acetaminophen, ibuprofen Labs, Imaging, Other Studies Recent Labs Lab 05/09/19 1810 05/10/19 0535 05/13/19 0750 05/14/19 0557 WBC 12.6* 10.8 5.1 5.4 RBC 4.20* 3.66* 3.73* 3.93* HGB 12.4* 10.7* 11.0* 11.4* HCT 38.1* 33.5* 33.6* 35.4* MCV 90.7 91.5 90.1 90.1 MCH 29.5 29.2 29.5 29.0 MCHC 32.5 31.9 32.7 32.2 PLT 199 144* 146* 162 RDW 12.8 12.9 12.5 12.5 MPV 10.0 9.1* 9.8 10.1 PERNEU 85.0* -- -- -- PERLYM 6.6* -- -- -- PERMON 7.2 -- -- -- LYMC 0.83 1.30 1.28 1.46 Recent Labs Lab 05/09/19 1810 05/10/19 0535 05/12/19 0415 05/13/19 0750 05/14/19 0557 NA 133* 138 136 140 140 K 3.8 3.7 3.8 3.5 3.9 CL 95* 102 100 103 102 CO2 27.8 26.2 26.5 29.9 28.8 AGAP 10.2 9.8 9.5 7.1 9.2 BUN 14 11 6* 7 7 CR 0.96 0.94 0.89 0.81 0.71 BUNCREATININ 14.6 11.7 6.7 8.6 9.9 GFRNON >90 >90 >90 >90 >90 GFR >90 >90 >90 >90 >90 GLU 113* 116* 119* 141* 102* CA 8.5 7.8* 7.9* 8.3* 8.5 TP 7.8 6.4 6.6 6.6 6.9 ALB 3.9 2.9* 2.8* 2.8* 2.8* TBIL 0.6 0.4 0.5 0.3 0.2 ALKP 138* 134 192* 209* 204* AST 39* 50* 61* 55* 41* ALT 54 67* 91* 93* 83* No results for input(s): CHOL, TRI, HDL, LDL, HGBA1C, TSH in the last 168 hours. No results for input(s): APTT, INR, PTT in the last 168 hours. No results for input(s): TROP, TROPIWB, CKMB, CPK in the last 168 hours. Recent Labs Lab 05/09/19 1810 05/12/19 0415 05/13/19 0750 LACTICACID 1.0 0.6 -- PROCT -- -- 0.22 No results for input(s): PH, PCO2, PO2, [id number], BICARBWB, BASEDEFICIT, BASEEXCESS in the [id number] hours. No results found for this or any previous visit. Imaging Ct Abd+pel Wo Con Result Date: 05/11/2019 IMAGING STUDIES: CT ABD+PEL WO CON DATE: 05/11/2019 2:16 PM COMPARISON STUDIES: 08/11/2016. CLINICAL HISTORY: Pyelonephritis, complicated . TECHNIQUE: Helical axial images were acquired from the lung bases to symphysis pubis. Sagittal and coronal reconstructions were obtained. Radiation dose reductiontechnique was utilized. FINDINGS AND IMPRESSION: LOWER CHEST: 1. Lungs: Pulmonary nodule anterior basal segment left lower lobe contacting the pleura, 7 mm, stable and therefore should be considered benign. Subsegmental atelectasis in otherwise clear lung bases. 2. Visible mediastinum: Concentric mucosal thickening of thedistal esophagus, correlate with history of reflux, esophagitis and its complications. ABDOMEN: 1. Liver: No obvious focal lesions within the limitations of this noncontrast enhanced CT. 2. Gallbladder: Normal in appearance. Noncalcified gallstones might not be visible on CT.. 3. Spleen: No lesions, no splenomegaly. 4. Pancreas: No focal lesions. 5. Adrenal glands: No focal lesions. 6. Kidneys: No focal lesions. No hydronephrosis or nephrolithiasis. Bilateral extrarenal pelvis. No perinephric edema. No hydroureter or obvious distal stones. 7. Retroperitoneal space: No lymphadenopathy or masses. No mesenteric lymphadenopathy or edema. 8. Stomach and bowel: Nonobstructive pattern. No free air. 9. Aorta: No significant atherosclerotic disease or aneurysmal dilation. PELVIS: 1. Appendix: Not pathologically distended. 2. Colon and rectum: Constipation, mild. 3. Prostate: No obvious masses. 4. Urinary bladder: No stones or abnormal wall thickening. 5. Pelvic space: No free fluid. BONES ANDOTHER INCIDENTAL FINDINGS: 1. Bones: Status post ORIF right femur. Mild degenerative changes of thespine and hips. Voice recognition software utilized. Interpreted By: Raj Hendricks, 05/11/2019 3:32 PM Us Testicular Result Date: 05/10/2019 IMAGING STUDIES: US TESTICULAR DATE: 05/10/2019 10:52 AM COMPARISON STUDIES: No previous exams available CLINICAL HISTORY: Bilateral testicular pain and swelling . . FINDINGS: Real-time ultrasound examination performed by the glassine machine tender demonstrates: The right testicle measures 4.1 x 2.2 x 3.0 cm. Demonstrates homogeneous echotexture with no discrete lesions. Present flow. A small hydrocele is noted with internal debris is. Epididymis appears enlarged and perhaps slightly hypervascular. Small epididymal cyst 2 mm noted The left testicle measures 3.8 x 2.3 x 2.8 cm. Demonstrates homogeneous echotexture with no discrete lesions. Present flow. A small hydrocele with internal debris is noted. The epididymis appears slightly enlarged and perhaps hypervascular with several small epididymal cysts the largest measuring 4.9 mm. IMPRESSION: 1. Bilateral hydroceles with debris and enlargement of the epididymis suggestive of epididymitis. The small complex hydroceles could indicate early changes that could evolve to a pyocele although at this time there are no evidence of septations to make the diagnosis. Recommend follow-upto monitor response to therapy. Interpreted By: Raj Hendricks, 05/10/2019 11:53 AM Xr Abd Kub Result Date: 05/09/2019 IMAGING STUDIES: XR ABD KUB DATE: 05/09/2019 5:56 PM COMPARISON STUDIES: No previous available. CLINICAL HISTORY: Constipation .Additional history. FINDINGS IMPRESSION : CHEST: 1. The cardiac configuration is normal. Lung bases are clear, within the [id number]. ABDOMEN: 1. No free air below the diaphragm. 2. Moderate amount of stool throughout the colon. No evidence of disproportionate dilation of the small bowel. No stool in the rectum. 3.Renal shadows obscured by bowel. Phleboliths in the pelvis. 4. Levocurvature of the spine. Severe degenerative changes of the shoulders. Right myositis ossificans and ORIF right femur. 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 No new signs of infection. Given possible developing pyocele on testicular US, will re-evaluate for abscess with repeat US. Case discussed informally with . Urine cx results reviewed with pharmacist. De-escalated to Levaquin on 05/13 (coverage for epididymitis also). Monitor CBC Repeat US with no evidence of abscess. Patient appears to have defervesced. Avoid APAP and ibuporfen for today. If remains afebrile, d/c tomorrow anticipated. ?? UTI As above ?? Bladder Disease Anatomic anomaly ??Etiology of recurrent UTI ?? Hx Skull/Cervical Fracture Spinal cord injury impaired Ability to void and defecate. ?? 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 Elevated LFT's Mild Asymptomatic Unlikely cause of recurrent fevers Monitor. Decrease APAP if rises signficantly ?? Normocytic Anemia Monitor Stable LLL nodule Stable compared to imaging in 2017 Obesity, 37.95 [place] No concern for meningitis or acute intracranial process at this time Continue symptomatic therapy Monitor ?? Code Status: Full Code. Plan of care discussed with RN, significant other at bedside. ZIANAB TORRES MD [employer] DRIVER * Kayli Lock, PT - 05/14/2019 10:39 AM CST 05/14/19 1000 Therapy Visit Subjective Attempted PT x 2 this am. Patient c/o severe [place] again and significant other declined PT at this time. Ice bag provided to significant other and she was going to apply ice pack to patient'sforehead for pain relief. 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 In attendance; case management, UR, nursing, PT, OT, cardiopulmonary, DESK SERGEANT, Hospitalist, Pastoral Care, and Pharmacy. Meeting held at 11:00 PT to evaluate. Plan to redo ultrasound. Possible admit to [facility] pending insurance approval. 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 Patient c/o severe [place] and declined PT today. Will attempt again in am. 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 Still having intermittent fevers and sweats but not as often. No chills. Testicular pain much better. No dysuria. Feels like urine stream not as strong. No new complaints, rashes, abd pain, n/v, diarrhea, cough. Objective Filed Vitals: 05/13/19 0700 05/13/19 0930 05/13/19 1005 05/13/19 1100 BP: (!) 150/74 131/80 Pulse: 93 91 Resp: 18 Temp: 101.1 ??F (38.4 ??C) 99.5 ??F (37.5 ??C) 98.3 ??F (36.8 ??C) (P) 98.9 ??F (37.2 ??C) TempSrc: Tympanic Tympanic Oral Tympanic SpO2: 93% (P) 92% Weight: Height: Intake/Output 24H Total: Intake/Output Summary (Last 24 hours) at 05/13/2019 1217 Last data filed at 05/13/2019 1216 Gross per 24 hour Intake 3210 ml Output 5350 ml Net -2140 ml Physical Exam: -GENERAL: No acute distress, Well nourished, obese -HEAD: Normocephalic, Atraumatic -EYES: Extraocular movements intact -LUNGS: Effort normal, Clear to auscultation bilaterally, No wheezes, No crackles, No ronchi -CVS: Regular rate and rhythm, S1 and S2 normal -ABDOMEN: Soft, Non tender -EXT: trace edema -NEURO: Awake, alert, oriented, No new gross neuro deficits -SKIN: No significant rashes Medications ??? carBAMazepine XR 1,000 mg Oral Nightly at bedtime ??? ceFAZolin 2 g Intravenous Q8H ??? cyclobenzaprine 10 mg Oral Nightly at bedtime ??? enoxaparin 40 mg Subcutaneous Q24H ??? influenza virus vaccine (QUAD) 0.5 mL Intramuscular Once ??? pantoprazole EC 40 mg Oral Daily ??? psyllium 1 packet Oral Daily ??? senna-docusate 1 tablet Oral Nightly at bedtime ??? sodium chloride 125 mL/hr at 05/13/19 0445 acetaminophen, hydrocodone-acetaminophen, ibuprofen Labs, Imaging, Other Studies Recent Labs Lab 05/09/19 1810 05/10/19 0535 05/13/19 0750 WBC 12.6* 10.8 5.1 RBC 4.20* 3.66* 3.73* HGB 12.4* 10.7* 11.0* HCT 38.1* 33.5* 33.6* MCV 90.7 91.5 90.1 MCH 29.5 29.2 29.5 MCHC 32.5 31.9 32.7 PLT 199 144* 146* RDW 12.8 12.9 12.5 MPV 10.0 9.1* 9.8 PERNEU 85.0* -- -- PERLYM 6.6* -- -- PERMON 7.2 -- -- LYMC 0.83 1.30 1.28 Recent Labs Lab 05/09/19180905/10/19 0535 05/12/195 05/13/19 0750 NA 133* 138 136 140 K 3.8 3.7 3.8 3.5 CL 95* 102 100 103 CO2 27.8 26.2 26.5 29.9 AGAP 10.2 9.8 9.5 7.1 BUN 14 11 6* 7 CR 0.96 0.94 0.89 0.81 BUNCREATININ 14.6 11.7 6.7 8.6 GFRNON >90 >90 >90 >90 GFR >90 >90 >90 >90 GLU 113* 116* 119* 141* CA 8.5 7.8* 7.9* 8.3* TP 7.8 6.4 6.6 6.6 ALB 3.9 2.9* 2.8* 2.8* TBIL 0.6 0.4 0.5 0.3 ALKP 138* 134 192* 209* AST 39* 50* 61* 55* ALT 54 67* 91* 93* No results for input(s): CHOL, TRI, HDL, LDL, HGBA1C, TSH in the last 168 hours. No results for input(s): APTT, INR, PTT in the last 168 hours. No results for input(s): TROP, TROPIWB, CKMB, CPK in the last 168 hours. Recent Labs Lab 05/09/19180905/12/195 LACTICACID 1.0 0.6 No results for input(s): PH, PCO2, PO2, [id number], BICARBWB, BASEDEFICIT, BASEEXCESS in the [id number] hours. No results found for this or any previous visit. Imaging Ct Abd+pel Wo Con Result Date: 05/11/2019 IMAGING STUDIES: CT ABD+PEL WO CON DATE: 05/11/2019 2:16 PM COMPARISON STUDIES: 08/11/2016. CLINICAL HISTORY: Pyelonephritis, complicated . TECHNIQUE: Helical axial images were acquired from the lung bases to symphysis pubis. Sagittal and coronal reconstructions were obtained. Radiation dose reduction technique was utilized. FINDINGS AND IMPRESSION: LOWER CHEST: 1. Lungs: Pulmonary nodule anterior basal segment left lower lobe contacting the pleura, 7 mm, stable and therefore should be considered benign. Subsegmental atelectasis in otherwise clear lung bases. 2. Visible mediastinum: Concentric mucosal thickening of thedistal esophagus, correlate with history of reflux, esophagitis and its complications. ABDOMEN: 1. Liver: No obvious focal lesions within the limitations of this noncontrast enhanced CT. 2. Gallbladder: Normal in appearance. Noncalcified gallstones might not be visible on CT.. 3. Spleen: No lesions, no splenomegaly. 4. Pancreas: No focal lesions. 5. Adrenal glands: No focal lesions. 6. Kidneys: No focal lesions. No hydronephrosis or nephrolithiasis. Bilateral extrarenal pelvis. No perinephric edema. No hydroureter or obvious distal stones. 7. Retroperitoneal space: No lymphadenopathy or masses. No mesenteric lymphadenopathy or edema. 8. Stomach and bowel: Nonobstructive pattern. No free air. 9. Aorta: No significant atherosclerotic disease or aneurysmal dilation. PELVIS: 1. Appendix: Not p athologically distended. 2. Colon and rectum: Constipation, mild. 3. Prostate: No obvious masses. 4. Urinary bladder: No stones or abnormal wall thickening. 5. Pelvic space: No free fluid. BONES AND OTHER INCIDENTAL FINDINGS: 1. Bones: Status post ORIF right femur. Mild degenerative changes of the spine and hips. Voice recognition software utilized. Interpreted By: Raj Hendricks, 05/11/2019 3:32 PM Us Testicular Result Date: 05/10/2019 IMAGING STUDIES: US TESTICULAR DATE: 05/10/2019 10:52 AM COMPARISON STUDIES: No previous exams available CLINICAL HISTORY: Bilateral testicular pain and swelling . . FINDINGS: Real-time ultrasound examination performed by the glassine machine tender demonstrates: The right testicle measures 4.1 x 2.2 x 3.0cm. Demonstrates homogeneous echotexture with no discrete lesions. Present flow. A small hydrocele is noted with internal debris is. Epididymis appears enlarged and perhaps slightly hypervascular. Small epididymal cyst 2 mm noted The left testicle measures 3.8 x 2.3 x 2.8 cm. Demonstrates homogeneous echotexture with no discrete lesions. Present flow. A small hydrocele with internal debris is noted. The epididymis appears slightly enlarged and perhaps hypervascular with several small epididymalcysts the largest measuring 4.9 mm. IMPRESSION: 1. Bilateral hydroceles with debris and enlargement of the epididymis suggestive of epididymitis. The small complex hydroceles could indicate early changes that could evolve to a pyocele although at this time there are no evidence of septations to make the diagnosis. Recommend follow-upto monitor response to therapy. Interpreted By: Raj Hendricks, 05/10/2019 11:53 AM Xr Abd Kub Result Date: 05/09/2019 IMAGING STUDIES: XR ABD KUB DATE: 05/09/2019 5:56 PM COMPARISON STUDIES: No previous available. CLINICAL HISTORY: Constipation .Additional history. FINDINGS IMPRESSION : CHEST: 1. The cardiac configuration is normal. Lung bases are clear, within the [id number]. ABDOMEN: 1. No free air below the diaphragm. 2. Moderate amount of stool throughout the colon. No evidence of disproportionate dilation of the small bowel. No stool in the rectum. 3.Renal shadows obscured by bowel. Phleboliths in the pelvis. 4. Levocurvature of the spine. Severe degenerative changes of the shoulders. Right myositis ossificans and ORIF right femur. ElectronicallySigned By: Raj Hendricks on 05/09/2019 6:14 PM Interpreted By: Raj Hendricks, 05/09/2019 6:13 PM EKG: Results for orders placed or performed during the hospital encounter of 05/09/19 ECG 12-Lead Narrative [facility] Test Date: 2019-05-09 Pat Name: ROSELINE PEREZ Department: Room: EXAM 505 Gender: Male Guide Setter: [employer] : 1970 Requested By: TASNEEM DARNELL Order Number: [id number] Reading MD: Rg Pierre Measurements Intervals [place] Rate: 99 P: 49 FL: 174 QRS: 58 QRSD: 90 T: 37 QT: 319 QTc: 410 Interpretive Statements SINUS RHYTHM No previous ECG available for comparison 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 No new signs of infection. Given possible developing pyocele on testicular US, will re-evaluate for abscess with repeat US. Case discussed informally with . Urine cx results reviewed with pharmacist. Will de-escalate to Levaquin (coverage for epididymitis also). Monitor CBC ?? UTI As above ?? Bladder Disease Anatomic anomaly ??Etiology of recurrent UTI ?? Hx Skull/Cervical Fracture Spinal cord injury impaired Ability to void and defecate. ?? 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 Elevated LFT's Mild Asymptomatic Unlikely cause of recurrent fevers Monitor. Decrease APAP if rises signficantly ?? Normocytic Anemia Monitor Stable LLL nodule Stable compared to imaging in 2017 Obesity, 37.95 ?? Code Status: Full Code. Plan of care discussed with RN, significant other at bedside. 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 Physical Exam Filed Vitals: 05/12/19 0627 05/12/19 0648 05/12/19 0742 05/12/19 1200 BP: (!) 143/75 136/84 Pulse: 93 92 Resp: 20 18 Temp: 99.1 ??F (37.3 ??C) 97.5 ??F (36.4 ??C) TempSrc: Tympanic Tympanic SpO2: 99% 93% 93% 98% Weight: Height: Intake/Output Summary (Last 24 hours) at 05/12/2019 1514 Last data filed at 05/12/2019 0900 Gross per 24 hour Intake 240 ml Output 5850 ml Net -5610 ml Physical Exam Constitutional: He is oriented to person, place, and time. He appears well- developed and well-nourished. HENT: Head: Normocephalic and atraumatic. Eyes: Conjunctivae are normal. Cardiovascular: Normal rate and regular rhythm. Pulmonary/Chest: Effort normal and breath sounds normal. No respiratory distress. He has no wheezes. Abdominal: Soft. Bowel sounds are normal. He exhibits no distension. There is no tenderness. There is no rebound. Musculoskeletal: He exhibits no edema, tenderness or deformity. Neurological: He is alert and oriented to person, place, and time. Skin: Skin is warm.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 intact distal pulses. Pulmonary/Chest: Effort normal and breath sounds normal. No respiratory distress. He has no wheezes. He has no rales. He exhibits no tenderness. Abdominal: There is tenderness (bilateral CVA tenderness, no suprapubic tenderness. Abdomen full with hypoactive bowel sounds in all 4 quadrants.). There is no rebound and no guarding. Genitourinary: Penis normal. Right testis shows no swelling and no tenderness. Right testis is descended. Left testis shows no swelling and no tenderness. Left testis is descended. Circumcised. No penile erythema or penile tenderness. No discharge found. Musculoskeletal: Normal range of motion. Lymphadenopathy: Right: No inguinal adenopathy present. Left: No inguinal adenopathy present. Neurological: He is alert and oriented to person, place, and time. Skin: Skin is warm and dry. Psychiatric: He has a normal mood and affect. His behavior is normal. Thought content normal. Vitals reviewed. Labs Reviewed CBC W/DIFF AUTOMATED - Abnormal; Notable for the following components: Result Value WBC 12.6 (*) RBC 4.20 (*) HGB 12.4 (*) HCT 38.1 (*) LYMPHOCYTES 6.6 (*) NEUTROPHILS 85.0 (*) ABS. NEUTROPHILS TOTAL 10.68 (*) IMMATURE GRANS 0.6 (*) All other components within normal limits COMPREHENSIVE METABOLIC PANEL - Abnormal; Notable for the following components: GLUCOSE 113 (*) SODIUM 133 (*) CHLORIDE 95 (*) AST 39 (*) ALK PHOS 138 (*) All other components within normal limits URINALYSIS - Abnormal; Notable for the following components: LEUKOCYTE ESTERASE 1+ (*) NITRITES POSITIVE (*) PROTEIN, URINE 1+ (*) All other components within normal limits CBC W/DIFF AUTOMATED - Abnormal; Notable for the following components: RBC 3.66 (*) HGB 10.7 (*) HCT 33.5 (*) PLT 144 (*) MPV 9.1 (*) SEG NEUTROPHILS 82 (*) LYMPHOCYTES 12 (*) ABS. NEUTROPHILS TOTAL 8.86 (*) All other components within normal limits COMPREHENSIVE METABOLIC PANEL - Abnormal; Notable for the following components: GLUCOSE 116 (*) CALCIUM 7.8 (*) ALBUMIN 2.9 (*) AST 50 (*) ALT 67 (*) A/G RATIO 0.8 (*) All other components within normal limits LACTIC ACID URINALYSIS MICRO ONLY CULTURE, BACTERIA, BLOOD CULTURE, BACTERIA, BLOOD CULTURE URINE US TESTICULAR Final Result by User, [id number] (05/10 120) IMAGING STUDIES: US TESTICULAR DATE: 05/10/2019 10:52 AM COMPARISON STUDIES: No previous exams available CLINICAL HISTORY: Bilateral testicular pain and swelling . . FINDINGS: Real-time ultrasound examination performed by the glassine machine tender demonstrates: The right testicle measures 4.1 x 2.2 x 3.0 cm. Demonstrates homogeneous echotexture with no discrete lesions. Present flow. A small hydrocele is noted with internal debris is. Epididymis appears enlarged and perhaps slightly hypervascular. Small epididymal cyst 2 mm noted The left testicle measures 3.8 x 2.3 x 2.8 cm. Demonstrates homogeneous echotexture with no discrete lesions. Present flow. A small hydrocele with internal debris is noted. The epididymis appears slightly enlarged and perhaps hypervascular with several small epididymal cysts the largest measuring 4.9 mm. IMPRESSION: 1. Bilateral hydroceles with debris and enlargement of the epididymis suggestive of epididymitis. The small complex hydroceles could indicate early changes that could evolve to a pyocele although at this time there are no evidence of septations to make the diagnosis. Recommend follow-up to monitor response to therapy. Interpreted By: Raj Hendricks, 05/10/2019 11:53 AM XR ABD KUB Final Result by User, [id number] (05/09 1816) IMAGING STUDIES: XR ABD KUB DATE: 05/09/2019 5:56 PM COMPARISON STUDIES: No previous available. CLINICAL HISTORY: Constipation .Additional history. FINDINGS IMPRESSION : CHEST: 1. The cardiac configuration is normal. Lung bases are clear, within the [id number]. ABDOMEN: 1. No free air below the diaphragm. 2. Moderate amount of stool throughout the colon. No evidence of disproportionate dilation of the small bowel. No stool in the rectum. 3. Renal shadows obscured by bowel. Phleboliths in the pelvis. 4. Levocurvature of the spine. Severe degenerative changes of the shoulders. Right myositis ossificans and ORIF right femur. Interpreted By: Raj Hendricks, 05/09/2019 6:13 PM ED Course Procedures ED Course as of May 10 1356 Sun May 09, 2019 [id number]--Pt transferred to Dr Barnes, pending lab work and additional evaluation. [MP] ED Course User Index [MP] Tasneem Darnell, COMMERCIAL SALES CONSULTANT- Medications cyclobenzaprine (FLEXERIL) tablet 10 mg (10 mg Oral Not Given 05/10/19 0029) pantoprazole EC (PROTONIX) tablet 40 mg (40 mg Oral Given 05/10/19 0903) enoxaparin (LOVENOX) 40 MG/0.4ML syringe 40 mg (40 mg Subcutaneous Given 05/10/19 0904) sodium chloride 0.9% infusion ( Intravenous New Bag 05/10/19 09) levofloxacin (LEVAQUIN) IVPB 750 mg (has no administration in time range) acetaminophen (TYLENOL) tablet 650 mg (650 mg Oral Given 05/10/19 1200) fentaNYL (SUBLIMAZE) 100 MCG/2ML injection (has no administration in time range) influenza virus vaccine (QUAD) injection 0.5 mL (has no administration in time range) ketorolac (TORADOL) tablet 10 mg (10 mg Oral Given 05/10/19 1156) carBAMazepine XR (TEGRETOL XR) 12 hr tablet 1,000 mg (has no administration in time range) sodium chloride 0.9% bolus infusion SOLN 1,000 mL (0 mLs Intravenous Infusion Stop Time 05/09/191929) ondansetron (ZOFRAN) injection 4 mg (4 mg Intravenous Given 05/09/191826) acetaminophen (TYLENOL) tablet 1,000 mg (1,000 mg Oral Given 05/09/191826) levofloxacin (LEVAQUIN) IVPB 750 mg (0 mg Intravenous Infusion Stop Time 05/09/192003) cefTRIAXone (ROCEPHIN) 2 g in sterile water 20 mL IV (2 g Intravenous Given 05/09/19 183) sodium chloride 0.9% bolus infusion SOLN 1,000 mL (0 mLs Intravenous Infusion Stop Time 05/09/192099) ketorolac (TORADOL) injection 30 mg (30 mg Intravenous Given 05/09/192131) Current Discharge Medication List MDM Number of Diagnoses or Management Options Amount and/or Complexity of Data Reviewed Clinical lab tests: ordered and reviewed Tests in the radiology section of CPT??: ordered and reviewed Tests in the medicine section of CPT??: ordered and reviewed Independent visualization of images, tracings, or specimens: yes Patient Progress Patient progress: stable SNOMED CT(R) 1. Urinary tract infection URINARY TRACT INFECTIOUS DISEASE Disposition: Admit Follow up instructions: No follow-up provider specified. LULÚ AMOR Please excuse any grammatical or spelling errors as this chart was documented using [employer], a dictation software. LULÚ Amor 05/10/19 1358 Cosigned by Steven Buitrago DO at 05/10/2019 3:58 PM INTERMODAL TRUCK DRIVER RMODAL TRUCK DRIVER RMODAL TRUCK DRIVER documented in this encounter Plan of Treatment Not on file documented as of this encounter Goals Goal Patient Goal Type Associated Problems Recent Progress Patient-Stated? Author Return home General No Zayra Kidd, [employer]YWALL FOREMAN Note: Plan to return home with significant other. No DME or home health needed at this time. documented as of this encounter Procedures Procedure Name Priority Date/Time Associated Diagnosis Comments COMPREHENSIVE METABOLIC PANEL Routine 05/14/2019 5:57 AM INTERMODAL TRUCK DRIVER CBC W/DIFF AUTOMATED Routine 05/14/2019 5:57 AM INTERMODAL TRUCK DRIVER US TESTICULAR Today 05/13/2019 2:30 PM INTERMODAL TRUCK DRIVER PROCALCITONIN (PCT) Routine 05/13/2019 7 :50 AM INTERMODAL TRUCK DRIVER COMPREHENSIVE METABOLIC PANEL Routine 05/13/2019 7:50 AM INTERMODAL TRUCK DRIVER CBC W/DIFF AUTOMATED Routine 05/13/2019 7:50 AM INTERMODAL TRUCK DRIVER COMPREHENSIVE METABOLIC PANEL Routine 05/12/2019 4:15 AM INTERMODAL TRUCK DRIVER LACTIC ACID Routine 05/12/2019 4:15 AM INTERMODAL TRUCK DRIVER CULTURE, BACTERIA, BLOOD TIMED 05/12/2019 4:15 AM INTERMODAL TRUCK DRIVER CULTURE, BACTERIA, BLOOD STAT 05/12/2019 4:15 [address] CT ABD+PEL WO CON Today 05/11/2019 3:2 2 PM INTERMODAL TRUCK DRIVER US TESTICULAR Today 05/10/2019 11:43 AM INTERMODAL TRUCK DRIVER COMPREHENSIVE METABOLIC PANEL Routine 05/10/2019 5:35 AM INTERMODAL TRUCK DRIVER CBC W/DIFF AUTOMATED Routine 05/10/2019 5:35 AM INTERMODAL TRUCK DRIVER ECG 12-LEAD STAT 05/09/2019 6:49 PM INTERMODAL TRUCK DRIVER XR ABD KUB STAT 05/09/2019 6:11 PM INTERMODAL TRUCK DRIVER COMPREHENSIVE METABOLIC PANEL STAT 05/09/2019 6:10 PM INTERMODAL TRUCK DRIVER LACTIC ACID STAT 05/09/2019 6:10 PM INTERMODAL TRUCK DRIVER CULTURE, BACTERIA, BLOOD STAT 05/09/2019 6:10 PM INTERMODAL TRUCK DRIVER CBC W/DIFF AUTOMATED STAT 05/09/2019 6:10 PM INTERMODAL TRUCK DRIVER CULTURE, BACTERIA, BLOOD STAT 05/09/2019 6:00 PM INTERMODAL TRUCK DRIVER HC URINALYSIS AUTO W/O MICRO STAT 05/09/2019 5:58 PM INTERMODAL TRUCK DRIVER URINALYSIS MICRO ONLY STAT 05/09/2019 5:58 PM INTERMODAL TRUCK DRIVER URINE BACTERIA CULTURE STAT 0 5:57 PM INTERMODAL TRUCK DRIVER documented in this encounter Results * (ABNORMAL) BASIC METABOLIC PANEL (05/22/2019 2:19 PM INTERMODAL TRUCK DRIVER) Pathologist [facility] GLUCOSE 104(H) 70 - 99 MG/DL 05/22/2019 2:40 PM [facility] BUN 14 7 - 18 MG/DL 05/22/2019 2:40 PM [facility] CREATININE S/P/B 0.83 0.7 - 1.3 MG/DL 05/22/2019 2:40 PM [facility] SODIUM S/P/B 138 136 - 145 MMOL/L 05/22/2019 2:40 PM [facility] POTASSIUM S/P/B 4.7 3.5 - 5.1 MMOL/L 05/22/2019 2:40 PM [facility] CHLORIDE S/P/B 100 100 - 108 MMOL/L 05/22/2019 2:40 PM [facility] CO2 23.5 21 - 32 MMOL/L 05/22/2019 2:40 PM [facility] CALCIUM S/P/B 8.8 8.5 - 10.1 MG/DL 05/22/2019 2:40 PM [facility] ANION GAP 14.5 5 - 15 MMOL/L 05/22/2019 2:40 PM [facility] BUN CREATININE RATIO 16.9 6 - 26 05/22/2019 2:40 PM [facility] EGFR NON-AFR. AMER. >90 >90 ML/MIN/1.7 3 M2 05/22/2019 2:40 PM [facility] EGFR AFR. AMER. >90 >90 ML/MIN/1.7 3 M2 05/22/2019 2:40 PM [facility] Comment: NOTE: eGFR is not calculated for patients <18 years of age. This is an estimated GFR (CKD EPI) and should not be used for calculating drug doses. 05/22/2019 2:19 PM INTERMODAL TRUCK DRIVER Cheryl Marinelli Chloesusi [employer] R[employer]K CONTROL CONSULTANT LABORATORY Final Result [facility] [address] [place] [address], * (ABNORMAL) CBC W/DIFF AUTOMATED (05/22/2019 2:19 PM INTERMODAL TRUCK DRIVER) WBC 8.1 4.4 - 11.0 x10'3/uL 05/22/2019 2:27 PM [facility] RBC 4.32(L) 4.50 - 5.90 x10'6/uL 05/22/2019 2:27 PM [facility] HGB 13.0(L) 14.0 - 17.5 G/DL 05/22/2019 2:27 PM [facility] HCT 40.0(L) 41.5 - 50.4 % 05/22/2019 2:27 PM [facility] MCV 92.6 80.0 - 96.0 FL 05/22/2019 2:27 PM [facility] MCH 30.1 26.5 - 31.4 PG 05/22/2019 2:27 PM [facility] MCHC 32.5 31.9 - 34.8 G/DL 05/22/2019 2:27 PM [facility] RDW 12.9 12.3 - 14.3 % 05/22/2019 2:27 PM [facility] PLT 314 151 - 353 x10'3/uL 05/22/2019 2:27 PM [facility] MPV 10.1 9.7 - 11.9 FL 05/22/2019 2:27 PM [facility] RBC MORPHOLOGY NORMAL 05/22/2019 2:27 PM [facility] PLT MORPH. NORMAL 05/22/2019 2:27 PM [facility] WBC MORPHOLOGY NORMAL 05/22/2019 2:27 PM [facility] LYMPHOCYTES % 29.3 15.8 - 45.0 % 05/22/2019 2:27 PM [facility] NEUTROPHILS % 60.3 42.1 - 71.9 % 05/22/2019 2:27 PM [facility] MONOCYTES % 7.4 5.7 - 12.5 % 05/22/2019 2:27 PM [facility] EOSINOPHILS 1.2 0.0 - 5.6 % 05/22/2019 2:27 PM [facility] BASOPHILS 0.6 0.0 - 1.3 % 05/22/2019 2:27 PM [facility] ABS. NEUTROPHILS TOTAL 4.85 1.40 - 6.00 x10'3/uL 05/22/2019 2:27 PM [facility] IMMATURE GRANS % 1.2(H) 0.0 - 0.5 % 05/22/2019 2:27 PM [facility] ABS. LYMPHOCYTES 2.36 0.80 - 4.70 x10'3/uL 05/22/2019 2:27 PM [facility] 05/22/2019 2:19 PM INTERMODAL TRUCK DRIVER us Cheryl Nolen [employer] RISK CONTROL CONSULTANT LABORATORY Final Result [facility] [address] [place] [address], * (ABNORMAL) COMPREHENSIVE METABOLIC PANEL (05/14/2019 5:57 AM [facility] GLUCOSE 102(H) 70 - 99 MG/DL 05/14/2019 7:41 AM [facility] BUN 7 7 - 18 MG/DL 05/14/2019 7:41 AM [facility] CREATININE S/P/B 0.71 0.7 - 1.3 MG/DL 05/14/2019 7:41 AM [facility] SODIUM S/P/B 140 136 - 145 MMOL/L 05/14/2019 7:41 AM [facility] POTASSIUM S/P/B 3.9 3.5 - 5.1 MMOL/L 05/14/2019 7:41 AM [facility] CHLORIDE S/P/B 102 100 - 108 MMOL/L 05/14/2019 7:41 AM [facility] CO2 28.8 21 - 32 MMOL/L 05/14/2019 7:41 AM [facility] CALCIUM S/P/B 8.5 8.5 - 10.1 MG/DL 05/14/2019 7:41 AM [facility] BILIRUBIN TOTAL S/P/B 0.2 0.2 - 1.2 MG/DL 05/14/2019 7:41 AM [facility] TOTAL PROTEIN S/P/B 6.9 6.4 - 8.2 G/DL 05/14/2019 7:41 AM [facility] ALBUMIN S/P/B 2.8(L) 3.4 - 5.0 G/DL 05/14/2019 7:41 AM [facility] AST 41(H) 15 - 37 U/L 05/14/2019 7:41 AM [facility] ALT 83(H) 16 - 60 U/L 05/14/2019 7:41 AM [facility] ALKALINE PHOSPHATASE S/P/B 204(H) 50 - 136 U/L 05/14/2019 7:41 AM [facility] ANION GAP 9.2 5 - 15 MMOL/L 05/14/2019 7:41 AM [facility] BUN CREATININE RATIO 9.9 6 - 26 05/14/2019 7:41 AM [facility] A/G RATIO 0.7(L) 1.0 - 2.0 RATIO 05/14/2019 7:41 AM [facility] EGFR NON-AFR. AMER. >90 >90 ML/MIN/1.7 3 M2 05/14/2019 7:41 AM [facility] EGFR AFR. AMER. >90 >90 ML/MIN/1.7 3 M2 05/14/2019 7:41 AM [facility] Comment: NOTE: eGFR is not calculated for patients <18 years of age. This is an estimated GFR (CKD EPI) and should not be used for calculating drug doses. 05/14/2019 5:57 AM INTERMODAL TRUCK DRIVER us Zainab Torres MD LABORATORY Final Result [facility] [address] [place] [address], * (ABNORMAL) CBC W/DIFF AUTOMATED (05/14/2019 5:57 AM INTERMODAL TRUCK DRIVER) WBC 5.4 4.4 - 11.0 x10'3/uL 05/14/2019 7:25 AM [facility] RBC 3.93(L) 4.50 - 5.90 x10'6/uL 05/14/2019 7:25 AM [facility] HGB 11.4(L) 14.0 - 17.5 G/DL 05/14/2019 7:25 AM [facility] HCT 35.4(L) 41.5 - 50.4 % 05/14/2019 7:25 AM [facility] MCV 90.1 80.0 - 96.0 FL 05/14/2019 7:25 AM [facility] MCH 29.0 26.5 - 31.4 PG 05/14/2019 7:25 AM [facility] MCHC 32.2 31.9 - 34.8 G/DL 05/14/2019 7:25 AM [facility] RDW 12.5 12.3 - 14.3 % 05/14/2019 7:25 AM [facility] PLT 162 151 - 353 x10'3/uL 05/14/2019 7:25 AM [facility] MPV 10.1 9.7 - 11.9 FL 05/14/2019 7:25 AM [facility] SEG NEUTROPHILS 50 42 - 72 % 0 8:24 AM [facility] LYMPHOCYTES 27 15.8 - 45.0 % 05/14/2019 8:24 AM [facility] MONOCYTES 22(H) 5.7 - 12.5 % 05/14/2019 8:24 AM [facility] EOSINOPHILS 1 0 - 5.6 % 05/14/2019 8:24 AM [facility] ABS. NEUTROPHILS TOTAL 2.70 1.40 - 6.00 x10'3/uL 05/14/2019 8:24 AM [facility] ABS. LYMPHOCYTES 1.46 0.80 - 4.70 x10'3/uL 05/14/2019 8:24 AM [facility] PLT MORPH. NORMAL 05/14/2019 8:24 AM [facility] RBC MORPHOLOGY NORMAL 05/14/2019 8:24 AM INTERMODAL TRUCK DRIVER [facility] WBC MORPHOLOGY NORMAL 05/14/2019 8:24 AM INTERMODAL TRUCK DRIVER [facility] 05/14/2019 5:57 AM INTERMODAL TRUCK DRIVER us Zainab Torres MD LABORATORY Final Result Performing Organization Address City/State/[facility] Co de Phone Number [facility] [address] [place] [address], [place] [phone] * US TESTICULAR (05/13/2019 2:30 PM INTERMODAL TRUCK DRIVER) Anatomical Region Laterality Modality Pelvis Ultrasound 05/13/2019 2:33 PM INTERMODAL TRUCK DRIVER Impressions 05/13/2019 2:39 PM INTERMODAL TRUCK DRIVER IMPRESSION: 1. ??Findings suggestive bilateral epididymoorchitis with bilateral small hydroceles with internal debris. There is no interval significant change in the size of the hydroceles and no evidence of a pyocele at this time. The testicular parenchyma does appear slightly edematous when compared to previous study. Interpreted By: Raj Hendricks, 05/13/2019 2:33 PM Narrative 05/13/2019 2:39 PM INTERMODAL TRUCK DRIVER IMAGING STUDIES: ??US TESTICULAR ? DATE: ??05/13/2019 1:14 PM COMPARISON STUDIES: 05/10/2019 CLINICAL HISTORY: Recurrent fever, epididymitis . ?? . FINDINGS: Real-time ultrasound examination performed by the glassine machine tender demonstrates: The right testicle measures 3.8 x 2.1 x 2.8 cm. And appears mildly edematous when compared to the previous exam. Flow is present. Redemonstration of a right hydrocele with debris as seen on the previous exam. The epididymis appears edematous. Does not appear hypervascular. The left testicle measures 3.5 x 2.3 x 2.1 cm. And appears mildly edematous when compared to previous exam. Does not appear hypervascular. The epididymis is not enlarged. Redemonstration of a left hydrocele with debris grossly similar to the previous exam Procedure Note Raj Hendricks MD - 05/13/2019 IMAGING STUDIES: US TESTICULAR DATE: 05/13/2019 1:14 PM COMPARISON STUDIES: 05/10/2019 CLINICAL HISTORY: Recurrent fever, epididymitis . . FINDINGS: Real-time ultrasound examination performed by the glassine machine tender demonstrates: The right testicle measures 3.8 x 2.1 x 2.8 cm. And appears mildly edematous when compared to the previous exam. Flow is present. Redemonstration of a right hydrocele with debris as seen on the previous exam. The epididymis appears edematous. Does not appear hypervascular. The left testicle measures 3.5 x 2.3 x 2.1 cm. And appears mildlyedematous when compared to previous exam. Does not appear hypervascular. The epididymis is not enlarged. Redemonstration of a left hydrocele withdebris grossly similar to the previous exam IMPRESSION: 1. Findings suggestive bilateral epididymoorchitis with bilateral small hydroceles with internal debris. There is no interval significant changein the size of the hydroceles and no evidence of a pyocele at this time.The testicular parenchyma does appear slightly edematous when compared to previous study. Interpreted By: Raj Hendricks, 05/13/2019 2:33 PM us Zainab Torres MD ULTRASOUND Final Result * PROCALCITONIN (PCT) (05/13/2019 7:50 AM INTERMODAL TRUCK DRIVER) Procalcitonin 0.22 0.00 - 0.25 NG/ML 05/13/2019 1:39 PM INTERMODAL TRUCK DRIVER [facility] Comment: PROCALCITONIN INTERPRETAION GUIDELINES LOWER RESPIRATORY TRACT INFECTIONS (LRTI): USE [...] RE-EVALUATION AND RE-MEASUREMENT OF PCT IS RECOMMENDED. 05/13/2019 7:50 AM INTERMODAL TRUCK DRIVER Zainab Torres MD LABORATORY Final Result [facility] [address] [place] [address], * (ABNORMAL) COMPREHENSIVE METABOLIC PANEL (05/13/2019 7:50 AM INTERMODAL TRUCK DRIVER) [facility] GLUCOSE 141(H) 70 - 99 MG/DL 05/13/2019 11:39 AM INTERMODAL TRUCK DRIVER [facility] BUN 7 7 - 18 MG/DL 05/13/2019 11:39 AM INTERMODAL TRUCK DRIVER [facility] CREATININE S/P/B 0.81 0.7 - 1.3 MG/DL 05/13/2019 11:39 AM [facility] SODIUM S/P/B 140 136 - 145 MMOL/L 05/13/2019 11:39 AM [facility] POTASSIUM S/P/B 3.5 3.5 - 5.1 MMOL/L 05/13/2019 11:39 AM [facility] CHLORIDE S/P/B 103 100 - 108 MMOL/L 05/13/2019 11:39 AM [facility] CO2 29.9 21 - 32 MMOL/L 05/13/2019 11:39 AM [facility] CALCIUM S/P/B 8.3(L) 8.5 - 10.1 MG/DL 05/13/2019 11:39 AM [facility] BILIRUBIN TOTAL S/P/B 0.3 0.2 - 1.2 MG/DL 05/13/2019 11:39 AM [facility] TOTAL PROTEIN S/P/B 6.6 6.4 - 8.2 G/DL 05/13/2019 11:39 AM [facility] ALBUMIN S/P/B 2.8(L) 3.4 - 5.0 G/DL 05/13/2019 11:39 AM [facility] AST 55(H) 15 - 37 U/L 05/13/2019 11:39 AM [facility] ALT 93(H) 16 - 60 U/L 05/13/2019 11:39 AM [facility] ALKALINE PHOSPHATASE S/P/B 209(H) 50 - 136 U/L 05/13/2019 11:39 AM [facility] ANION GAP 7.1 5 - 15 MMOL/L 05/13/2019 11:39 AM [facility] BUN CREATININE RATIO 8.6 6 - 26 05/13/2019 11:39 AM [facility] A/G RATIO 0.7(L) 1.0 - 2.0 RATIO 05/13/2019 11:39 AM [facility] EGFR NON-AFR. AMER. >90 >90 ML/MIN/1.7 3 M2 05/13/2019 11:39 AM [facility] EGFR AFR. AMER. >90 >90 ML/MIN/1.7 3 M2 05/13/2019 11:39 AM [facility] Comment: NOTE: eGFR is not calculated for patients <18 years of age. This is an estimated GFR (CKD EPI) and should not be used for calculating drug doses. 05/13/2019 7:50 AM INTERMODAL TRUCK DRIVER Zainab Torres MD LABORATORY Final Result [facility] [address] [place] [address], [place] [phone] * (ABNORMAL) CBC W/DIFF AUTOMATED (05/13/2019 7:50 AM INTERMODAL TRUCK DRIVER) WBC 5.1 4.4 - 11.0 x10'3/uL 05/13/2019 11:31 AM [facility] RBC 3.73(L) 4.50 - 5.90 x10'6/uL 05/13/2019 11:31 AM [facility] HGB 11.0(L) 14.0 - 17.5 G/DL 05/13/2019 11:31 AM [facility] HCT 33.6(L) 41.5 - 50.4 % 05/13/2019 11:31 AM [facility] MCV 90.1 80.0 - 96.0 FL 05/13/2019 11:31 AM [facility] MCH 29.5 26.5 - 31.4 PG 05/13/2019 11:31 AM [facility] MCHC 32.7 31.9 - 34.8 G/DL 05/13/2019 11:31 AM [facility] RDW 12.5 12.3 - 14.3 % 05/13/2019 11:31 AM [facility] PLT 146(L) 151 - 353 x10'3/uL 05/13/2019 11:31 AM [facility] MPV 9.8 9.7 - 11.9 FL 05/13/2019 11:31 AM [facility] SEG NEUTROPHILS 60 42 - 72 % 0 12:01 PM [facility] BANDS 3 % 05/13/2019 12:01 PM [facility] LYMPHOCYTES 25 15.8 - 45.0 % 05/13/2019 12:01 PM [facility] MONOCYTES 11 5.7 - 12.5 % 05/13/2019 12:01 PM [facility] EOSINOPHILS 1 0 - 5.6 % 05/13/2019 12:01 PM [facility] ABS. NEUTROPHILS TOTAL 3.21 1.40 - 6.00 x10'3/uL 05/13/2019 12:01 PM [facility] ABS. LYMPHOCYTES 1.28 0.80 - 4.70 x10'3/uL 05/13/2019 12:01 PM [facility] PLT MORPH. NORMAL 05/13/2019 12:01 PM [facility] RBC MORPHOLOGY NORMAL 05/13/2019 12:01 PM [facility] WBC MORPHOLOGY NORMAL 05/13/2019 12:01 PM [facility] 05/13/2019 7:50 AM [employer]MODAL TRUCK DRIVER us Zainab Torres MD LABORATORY Final Result [facility] [address] [place] [address], [place] [phone] * CULTURE, BACTERIA, BLOOD (05/12/2019 4:15 AM INTERMODAL TRUCK DRIVER) SPEC DESCRIPTION BLOOD 05/12/2019 3:55 AM [employer]MODAL TRUCK DRIVER [facility] SPECIAL REQUESTS NO SPECIAL REQUEST 05/12/2019 3:55 AM [employer]MODAL TRUCK DRIVER [facility] CULTURE RESULT NO GROWTH 5 DAYS 05/17/2019 10:05 AM INTERMODAL TRUCK DRIVER [facility] BLOOD SPECIMEN OBTAINED FOR BLOOD CULTURE / Unknown 05/12/2019 4:15 AM INTERMODAL TRUCK DRIVER 05/12/2019 4:29 AM [employer]AL TRUCK DRIVER Marito Chu MD MICROBIOLOGY - GENERAL ORDERAB LES Final Result [facility] 3 [place] [address], [place] [phone] [facility] [address] [place] [address], [place] [phone] * CULTURE, BACTERIA, BLOOD (05/12/2019 4:15 AM INTERMODAL TRUCK DRIVER) SPEC DESCRIPTION BLOOD 05/12/2019 3:55 AM INTERMODAL TRUCK DRIVER [facility] SPECIAL REQUESTS NO SPECIAL REQUEST 05/12/2019 3:55 AM INTERMODAL TRUCK DRIVER [facility] CULTURE RESULT NO GROWTH 5 DAYS 05/17/2019 10:05 AM INTERMODAL TRUCK DRIVER [facility] BLOOD SPECIMEN OBTAINED FOR BLOOD CULTURE / Unknown 05/12/2019 4:15 AM INTERMODAL TRUCK DRIVER 05/12/2019 4:28 AM INTERMODAL TRUCK DRIVER Marito Chu MD MICROBIOLOGY - GENERAL ORDERAB LES Final Result Performing Organization Address City/[facility]/ZIP Co de Phone Number [facility] [address] [place] [address], [place] [phone] [facility] [address] [place] [address], [place] [phone] * LACTIC ACID (05/12/2019 4:15 AM INTERMODAL TRUCK DRIVER) LACTIC ACID VENOUS 0.6 0.4 - 2.0 MMOL/L 05/12/2019 4:48 AM [facility] 05/12/2019 4:15 AM INTERMODAL TRUCK DRIVER Marito Chu MD LABORATORY Final Result Performing Organization Address [facility]/ZIP Co de Phone Number [facility] [address] [place] [address], [place] [phone] * (ABNORMAL) COMPREHENSIVE METABOLIC PANEL (05/12/2019 4:15 AM INTERMODAL TRUCK DRIVER) GLUCOSE 119(H) 70 - 99 MG/DL 05/12/2019 4:45 AM [facility] BUN 6(L) 7 - 18 MG/DL 05/12/2019 4:45 AM [facility] CREATININE S/P/B 0.89 0.7 - 1.3 MG/DL 05/12/2019 4:45 AM [facility] SODIUM S/P/B 136 136 - 145 MMOL/L 05/12/2019 4:45 AM [facility] POTASSIUM S/P/B 3.8 3.5 - 5.1 MMOL/L 05/12/2019 4:45 AM [facility] CHLORIDE S/P/B 100 100 - 108 MMOL/L 05/12/2019 4:45 AM [facility] CO2 26.5 21 - 32 MMOL/L 05/12/2019 4:45 AM [facility] CALCIUM S/P/B 7.9(L) 8.5 - 10.1 MG/DL 05/12/2019 4:45 AM [facility] BILIRUBIN TOTAL S/P/B 0.5 0.2 - 1.2 MG/DL 05/12/2019 4:45 AM [facility] TOTAL PROTEIN S/P/B 6.6 6.4 - 8.2 G/DL 05/12/2019 4:45 AM [facility] ALBUMIN S/P/B 2.8(L) 3.4 - 5.0 G/DL 05/12/2019 4:45 AM [facility] AST 61(H) 15 - 37 U/L 05/12/2019 4:45 AM [facility] ALT 91(H) 16 - 60 U/L 05/12/2019 4:45 AM [facility] ALKALINE PHOSPHATASE S/P/B 192(H) 50 - 136 U/L 05/12/2019 4:45 AM [facility] ANION GAP 9.5 5 - 15 MMOL/L 05/12/2019 4:45 AM [facility] BUN CREATININE RATIO 6.7 6 - 26 05/12/2019 4:45 AM [facility] A/G RATIO 0.7(L) 1.0 - 2.0 RATIO 05/12/2019 4:45 AM [facility] EGFR NON-AFR. AMER. >90 >90 ML/MIN/1.7 3 M2 05/12/2019 4:45 AM [facility] EGFR AFR. AMER. 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 This is an estimated GFR (CKD EPI) and should not be used for calculating drug doses. 05/12/2019 4:15 AM INTERMODAL TRUCK DRIVER Roseline Alvarez MD LABORATORY Final Result [facility] [address] [place] [address], * CT ABD+PEL WO CON (05/11/2019 3:22 PM INTERMODAL TRUCK DRIVER) Anatomical Region Laterality Modality Abdomen Computed Tomogra phy 05/11/2019 3:32 PM INTERMODAL TRUCK DRIVER Impressions 05/11/2019 3:36 PM INTERMODAL TRUCK DRIVER FINDINGS AND IMPRESSION: LOWER CHEST: 1. ??Lungs: Pulmonary nodule anterior basal segment left lower lobe contacting the pleura, 7 mm, stable and therefore should be considered benign. Subsegmental atelectasis in otherwise clear lung bases. 2. ??Visible mediastinum: Concentric mucosal thickening of the distal esophagus, correlate with history of reflux, esophagitis and its complications. ABDOMEN: 1. ??Liver: No obvious focal lesions within the limitations of this noncontrast enhanced CT. 2. ??Gallbladder: Normal in appearance. Noncalcified gallstones might not be visible on CT.. 3. ??Spleen: No lesions, no splenomegaly. 4. ??Pancreas: No focal lesions. 5. ??Adrenal glands: No focal lesions. 6. ??Kidneys: No focal lesions. No hydronephrosis or nephrolithiasis. Bilateral extrarenal pelvis. No perinephric edema. No hydroureter or obvious distal stones. 7. ??Retroperitoneal space: No lymphadenopathy or masses. No mesenteric lymphadenopathy or edema. 8. ??Stomach and bowel: Nonobstructive pattern. No free air. 9. ??Aorta: No significant atherosclerotic disease or aneurysmal dilation. ?? PELVIS: 1. ??Appendix: Not pathologically distended. 2. ??Colon and rectum: Constipation, mild. 3. ??Prostate: No obvious masses. 4. ??Urinary bladder: No stones or abnormal wall thickening. 5. ??Pelvic space: No free fluid. BONES AND OTHER INCIDENTAL FINDINGS: 1. ??Bones: Status post ORIF right femur. Mild degenerative changes of the spine and hips. ? Voice recognition software utilized. Interpreted By: Raj Hendricks, 05/11/2019 3:32 PM Narrative 05/11/2019 3:36 PM INTERMODAL TRUCK DRIVER IMAGING STUDIES: ??CT ABD+PEL WO CON ? DATE: ??05/11/2019 2:16 PM COMPARISON STUDIES: 08/11/2016. ?? CLINICAL HISTORY: ?Pyelonephritis, complicated ? . TECHNIQUE: ??Helical axial images were acquired from the lung bases to symphysis pubis. ??Sagittal and coronal reconstructions were obtained. Radiation dose reduction technique was utilized. Procedure Note Raj Hendricks MD - 05/11/2019 IMAGING STUDIES: CT ABD+PEL WO CON DATE: 05/11/2019 2:16 PM COMPARISON STUDIES: 08/11/2016. CLINICAL HISTORY: Pyelonephritis, complicated . TECHNIQUE: Helical axial images were acquired from the lung bases to symphysis pubis. Sagittal and coronal reconstructions were obtained. Radiation dose reduction technique was utilized. FINDINGS AND IMPRESSION: LOWER CHEST: 1. Lungs: Pulmonary nodule anterior basal segment left lower lobe contacting the pleura, 7 mm, stable and therefore should be considered benign. Subsegmental atelectasis in otherwise clear lung bases. 2. Visible mediastinum: Concentric mucosal thickening of the distal esophagus, correlate with history of reflux, esophagitis and its complications. ABDOMEN: 1. Liver: No obvious focal lesions within the limitations of this noncontrast enhanced CT. 2. Gallbladder: Normal in appearance. Noncalcified gallstones might notbe visible on CT.. 3. Spleen: No lesions, no splenomegaly. 4. Pancreas: No focal lesions. 5. Adrenal glands: No focal lesions. 6. Kidneys: No focal lesions. No hydronephrosis or nephrolithiasis. Bilateral extrarenal pelvis. No perinephric edema. No hydroureter or obvious distal stones. 7. Retroperitoneal space: No lymphadenopathy or masses. No mesenteric lymphadenopathy or edema. 8. Stomach and bowel: Nonobstructive pattern. No free air. 9. Aorta: No significant atherosclerotic disease or aneurysmal dilation. PELVIS: 1. Appendix: Not pathologically distended. 2. Colon and rectum: Constipation, mild. 3. Prostate: No obvious masses. 4. Urinary bladder: No stones or abnormal wall thickening. 5. Pelvic space: No free fluid. BONES AND OTHER INCIDENTAL FINDINGS: 1. Bones: Status post ORIF right femur. Mild degenerative changes ofthe spine and hips. Voice recognition software utilized. Interpreted By: Raj Hendricks, 05/11/2019 3:32 PM us Roseline Alvarez MD CT Final Result * US TESTICULAR (05/10/2019 11:43 AM INTERMODAL TRUCK DRIVER) Anatomical Region Laterality Modality Pelvis Ultrasound 05/10/2019 11:5 3 AM INTERMODAL TRUCK DRIVER Impressions 05/10/2019 11:59 AM INTERMODAL TRUCK DRIVER IMPRESSION: 1. ??Bilateral hydroceles with debris and enlargement of the epididymis suggestive of epididymitis. The small complex hydroceles could indicate early changes that could evolve to a pyocele although at this time there are no evidence of septations to make the diagnosis. Recommend follow-up to monitor response to therapy. Interpreted By: Raj Hendricks, 05/10/2019 11:53 AM Narrative 05/10/2019 11:59 AM INTERMODAL TRUCK DRIVER IMAGING STUDIES: ??US TESTICULAR ? DATE: ??05/10/2019 10:52 AM COMPARISON STUDIES: No previous exams available CLINICAL HISTORY: Bilateral testicular pain and swelling . ?? . FINDINGS: Real-time ultrasound examination performed by the glassine machine tender demonstrates: The right testicle measures 4.1 x 2.2 x 3.0 cm. Demonstrates homogeneous echotexture with no discrete lesions. Present flow. A small hydrocele is noted with internal debris is. Epididymis appears enlarged and perhaps slightly hypervascular. Small epididymal cyst 2 mm noted The left testicle measures 3.8 x 2.3 x 2.8 cm. Demonstrates homogeneous echotexture with no discrete lesions. Present flow. A small hydrocele with internal debris is noted. The epididymis appears slightly enlarged and perhaps hypervascular with several small epididymal cysts the largest measuring 4.9 mm. Procedure Note Raj Hendricks MD - 05/10/2019 IMAGING STUDIES: US TESTICULAR DATE: 05/10/2019 10:52 AM COMPARISON STUDIES: No previous exams available CLINICAL HISTORY: Bilateral testicular pain and swelling . . FINDINGS: Real-time ultrasound examination performed by the glassine machine tender demonstrates: The right testicle measures 4.1 x 2.2 x 3.0 cm. Demonstrates homogeneous echotexture with no discrete lesions. Present flow. A small hydrocele is noted with internal debris is. Epididymis appears enlarged and perhaps slightly hypervascular. Small epididymal cyst 2 mm noted The left testicle measures 3.8 x 2.3 x 2.8 cm. Demonstrates homogeneous echotexture with no discrete lesions. Present flow. A small hydrocelewith internal debris is noted. The epididymis appears slightly enlarged and perhaps hypervascular with several small epididymal cysts the largest measuring 4.9 mm. IMPRESSION: 1. Bilateral hydroceles with debris and enlargement of the epididymis suggestive of epididymitis. The small complex hydroceles could indicate early changes that could evolve to a pyocele although at this time there are no evidence of septations to make the diagnosis. Recommend follow-upto monitor response to therapy. Interpreted By: Raj Hendricks, 05/10/2019 11:53 AM Yessica Dukes MD ULTRASOUND Final Result * (ABNORMAL) COMPREHENSIVE METABOLIC PANEL (05/10/2019 5:35 AM INTERMODAL TRUCK DRIVER) [facility] Signature GLUCOSE 116(H) 70 - 99 MG/DL 05/10/2019 6:19 AM [facility] BUN 11 7 - 18 MG/DL 05/10/2019 6:19 AM [facility] CREATININE S/P/B 0.94 0.7 - 1.3 MG/DL 05/10/2019 6:19 AM [facility] SODIUM S/P/B 138 136 - 145 MMOL/L 05/10/2019 6:19 AM [facility] POTASSIUM S/P/B 3.7 3.5 - 5.1 MMOL/L 05/10/2019 6:19 AM [facility] CHLORIDE S/P/B 102 100 - 108 MMOL/L 05/10/2019 6:19 AM [facility] CO2 26.2 21 - 32 MMOL/L 05/10/2019 6:19 AM [facility] CALCIUM S/P/B 7.8(L) 8.5 - 10.1 MG/DL 05/10/2019 6:19 AM [facility] BILIRUBIN TOTAL S/P/B 0.4 0.2 - 1.2 MG/DL 05/10/2019 6:19 AM [facility] TOTAL PROTEIN S/P/B 6.4 6.4 - 8.2 G/DL 05/10/2019 6:19 AM [facility] ALBUMIN S/P/B 2.9(L) 3.4 - 5.0 G/DL 05/10/2019 6:19 AM [facility] AST 50(H) 15 - 37 U/L 05/10/2019 6:19 AM [facility] ALT 67(H) 16 - 60 U/L 05/10/2019 6:19 AM [facility] ALKALINE PHOSPHATASE S/P/B 134 50 - 136 U/L 05/10/2019 6:19 AM [facility] ANION GAP 9.8 5 - 15 MMOL/L 05/10/2019 6:19 AM [facility] BUN CREATININE RATIO 11.7 6 - 26 05/10/2019 6:19 AM [facility] A/G RATIO 0.8(L) 1.0 - 2.0 RATIO 05/10/2019 6:19 AM [facility] EGFR NON-AFR. AMER. >90 >90 ML/MIN/1.7 3 M2 05/10/2019 6:19 AM [facility] EGFR AFR. AMER. >90 >90 ML/MIN/1.7 3 M2 05/10/2019 6:19 AM [facility] Comment: NOTE: eGFR is not calculated for patients <18 years of age. This is an estimated GFR (CKD EPI) and should not be used for calculating drug doses. 05/10/2019 5:35 AM INTERMODAL TRUCK DRIVER us Yessica Dukes MD LABORATORY Final Result [facility] [address] [place] [address], [place] [phone] * (ABNORMAL) CBC W/DIFF AUTOMATED (05/10/2019 5:35 AM INTERMODAL TRUCK DRIVER) WBC 10.8 4.4 - 11.0 x10'3/uL 05/10/2019 5:56 AM [facility] RBC 3.66(L) 4.50 - 5.90 x10'6/uL 05/10/2019 5:56 AM [facility] HGB 10.7(L) 14.0 - 17.5 G/DL 05/10/2019 5:56 AM [facility] HCT 33.5(L) 41.5 - 50.4 % 05/10/2019 5:56 AM [facility] MCV 91.5 80.0 - 96.0 FL 05/10/2019 5:56 AM [facility] MCH 29.2 26.5 - 31.4 PG 05/10/2019 5:56 AM [facility] MCHC 31.9 31.9 - 34.8 G/DL 05/10/2019 5:56 AM [facility] RDW 12.9 12.3 - 14.3 % 05/10/2019 5:56 AM [facility] PLT 144(L) 151 - 353 x10'3/uL 05/10/2019 5:56 AM [facility] MPV 9.1(L) 9.7 - 11.9 FL 05/10/2019 5:56 AM [facility] SEG NEUTROPHILS 82(H) 42 - 72 % 0 6:49 AM [facility] LYMPHOCYTES 12(L) 15.8 - 45.0 % 05/10/2019 6:49 AM [facility] MONOCYTES 6 5.7 - 12.5 % 05/10/2019 6:49 AM [facility] ABS. NEUTROPHILS TOTAL 8.86(H) 1.40 - 6.00 x10'3/uL 05/10/2019 6:49 AM [facility] ABS. LYMPHOCYTES 1.30 0.80 - 4.70 x10'3/uL 05/10/2019 6:49 AM [facility] PLT MORPH. NORMAL 05/10/2019 6:49 AM [facility] RBC MORPHOLOGY NORMAL 05/10/2019 6:49 AM [facility] WBC MORPHOLOGY NORMAL 05/10/2019 6:49 AM [facility] 05/10/2019 5:35 AM INTERMODAL TRUCK DRIVER us Yessica Dukes MD LABORATORY Final Result [facility] [address] [place] [address], * ECG 12-Lead (05/09/2019 6:49 PM INTERMODAL TRUCK DRIVER) 05/09/2019 6:49 PM INTERMODAL TRUCK DRIVER Narrative [facility] RAD - 05/09/2019 6:53 PM INTERMODAL TRUCK DRIVER ?[facility] ? Test Date: ?2019-05-09 Pat Name: ? ROSELINE PEREZ ?Department: ? Room: ? EXAM 505 Gender: ? Male ? Guide Setter: ?? CML : ?1970 ? Requested By: TASNEEM DARNELL Order Number: [id number] ? Mackenzie BARRETT: ?? Rg Pierre ? Measurements Intervals ?[place] ? Rate: ? 99 ? P: ?49 FL: ? 174 ?QRS: ?58 QRSD: ? 90 ? T: ?37 QT: ? 319 ? QTc: ?410 ? Interpretive Statements SINUS RHYTHM No previous ECG available for comparison RMODAL TRUCK DRIVER Procedure Note Rg Pierre MD - 05/09/2019 [facility] Test Date: 2019-05-09 Pat Name: ROSELINE PEREZ Department: Room: EXAM 505 Gender: Male Guide Setter: CML : 1970 Requested By: TASNEEM DARNELL Order Number: [id number] Mackenzie MD: Rg Pierre Measurements Intervals [place] Rate: 99 P: 49 FL: 174 QRS: 58 QRSD: 90 T: 37 QT: 319 QTc: 410 Interpretive Statements SINUS RHYTHM No previous ECG available for comparison RMODAL TRUCK DRIVER us Tasneem Darnell [employer] ECG ORDERABLES Final Res ult [facility] RAD * XR ABD KUB (05/09/2019 6:11 PM INTERMODAL TRUCK DRIVER) Anatomical Region Laterality Modality Abdomen Radiographic Cata ging 05/09/2019 6:13 PM INTERMODAL TRUCK DRIVER Impressions 05/09/2019 6:14 PM INTERMODAL TRUCK DRIVER FINDINGS IMPRESSION : CHEST: ?? 1. ??The cardiac configuration is normal. Lung bases are clear, within the [id number]. ?? ABDOMEN: 1. ??No free air below the diaphragm. 2. ??Moderate amount of stool throughout the colon. No evidence of disproportionate dilation of the small bowel. No stool in the rectum. 3. ??Renal shadows obscured by bowel. Phleboliths in the pelvis. 4. ??Levocurvature of the spine. Severe degenerative changes of the shoulders. Right myositis ossificans and ORIF right femur. ? Interpreted By: Raj Hendricks, 05/09/2019 6:13 PM Narrative 05/09/2019 6:14 PM INTERMODAL TRUCK DRIVER IMAGING STUDIES: ??XR ABD KUB ? DATE: ??05/09/2019 5:56 PM COMPARISON STUDIES: No previous available. ?? CLINICAL HISTORY: ??Constipation .Additional history. Procedure Note Raj Hendricks MD - 05/09/2019 IMAGING STUDIES: XR ABD KUB DATE: 05/09/2019 5:56 PM COMPARISON STUDIES: No previous available. CLINICAL HISTORY: Constipation .Additional history. FINDINGS IMPRESSION : CHEST: 1. The cardiac configuration is normal. Lung bases are clear, withinthe [id number]. ABDOMEN: 1. No free air below the diaphragm. 2. Moderate amount of stool throughout the colon. No evidence of disproportionate dilation of the small bowel. No stool in the rectum. 3. Renal shadows obscured by bowel. Phleboliths in the pelvis. 4. Levocurvature of the spine. Severe degenerative changes of the shoulders. Right myositis ossificans and ORIF right femur. Interpreted By: Raj Hendricks, 05/09/2019 6:13 PM Tasneem Darnell [facility] GENERAL IMAGING Final Res ult * CULTURE, BACTERIA, BLOOD (05/09/2019 6:10 PM INTERMODAL TRUCK DRIVER) SPEC DESCRIPTION BLOOD 05/09/2019 5:45 PM INTERMODAL TRUCK DRIVER [facility] SPECIAL REQUESTS NO SPECIAL REQUEST 05/09/2019 5:45 PM INTERMODAL TRUCK DRIVER [facility] CULTURE RESULT NO GROWTH 5 DAYS 05/14/2019 1:42 PM INTERMODAL TRUCK DRIVER [facility] BLOOD SPECIMEN OBTAINED FOR BLOOD CULTURE / Unknown 05/09/2019 6:10 PM INTERMODAL TRUCK DRIVER 05/09/2019 6:54 PM INTERMODAL TRUCK DRIVER Tasneem Darnell [facility] MICROBIOLOGY - GENERAL OR DERABLES Final Result [facility] [address] [place] [address], [place] [phone] [facility] [address] [place] [address], [place] [phone] * (ABNORMAL) Comprehensive metabolic panel (05/09/2019 6:10 PM INTERMODAL TRUCK DRIVER) GLUCOSE 113(H) 70 - 99 MG/DL 05/09/2019 7:11 PM INTERMODAL TRUCK DRIVER [facility] BUN 14 7 - 18 MG/DL 05/09/2019 7:11 PM INTERMODAL TRUCK DRIVER [facility] CREATININE S/P/B 0.96 0.7 - 1.3 MG/DL 05/09/2019 7:11 PM [facility] SODIUM S/P/B 133(L) 136 - 145 MMOL/L 05/09/2019 7:11 PM [facility] POTASSIUM S/P/B 3.8 3.5 - 5.1 MMOL/L 05/09/2019 7:11 PM [facility] CHLORIDE S/P/B 95(L) 100 - 108 MMOL/L 05/09/2019 7:11 PM [facility] CO2 27.8 21 - 32 MMOL/L 05/09/2019 7:11 PM [facility] CALCIUM S/P/B 8.5 8.5 - 10.1 MG/DL 05/09/2019 7:11 PM [facility] BILIRUBIN TOTAL S/P/B 0.6 0.2 - 1.2 MG/DL 05/09/2019 7:11 PM [facility] TOTAL PROTEIN S/P/B 7.8 6.4 - 8.2 G/DL 05/09/2019 7:11 PM [facility] ALBUMIN S/P/B 3.9 3.4 - 5.0 G/DL 05/09/2019 7:11 PM [facility] AST 39(H) 15 - 37 U/L 05/09/2019 7:11 PM [facility] ALT 54 16 - 60 U/L 05/09/2019 7:11 PM [facility] ALKALINE PHOSPHATASE S/P/B 138(H) 50 - 136 U/L 05/09/2019 7:11 PM [facility] ANION GAP 10.2 5 - 15 MMOL/L 05/09/2019 7:11 PM [facility] BUN CREATININE RATIO 14.6 6 - 26 05/09/2019 7:11 PM [facility] A/G RATIO 1.0 1.0 - 2.0 RATIO 05/09/2019 7:11 PM [facility] EGFR NON-AFR. AMER. >90 >90 ML/MIN/1.7 3 M2 05/09/2019 7:11 PM [facility] EGFR AFR. AMER. >90 >90 ML/MIN/1.7 3 M2 05/09/2019 7:11 PM [facility] Comment: NOTE: eGFR is not calculated for patients <18 years of age. This is an estimated GFR (CKD EPI) and should not be used for calculating drug doses. 05/09/2019 6:10 PM INTERMODAL TRUCK DRIVER [facility] Fabiano [facility] LABORATORY Final Res ult Performing Organization Address City/[facility]/ZIP Co de Phone Number [facility] [address] [place] [address], [place] [phone] * LACTIC ACID (05/09/2019 6:10 PM INTERMODAL TRUCK DRIVER) LACTIC ACID VENOUS 1.0 0.4 - 2.0 MMOL/L 05/09/2019 7:16 PM [facility] 05/09/2019 6:10 PM INTERMODAL TRUCK DRIVER [facility] LABORATORY Final Res ult [facility] [address] [place] [address], [place] [phone] * (ABNORMAL) CBC W/DIFF AUTOMATED (05/09/2019 6:10 PM INTERMODAL TRUCK DRIVER) WBC 12.6(H) 4.4 - 11.0 x10'3/uL 05/09/2019 7:20 PM [facility] RBC 4.20(L) 4.50 - 5.90 x10'6/uL 05/09/2019 7:20 PM [facility] HGB 12.4(L) 14.0 - 17.5 G/DL 05/09/2019 7:20 PM [facility] HCT 38.1(L) 41.5 - 50.4 % 05/09/2019 7:20 PM [facility] MCV 90.7 80.0 - 96.0 FL 05/09/2019 7:20 PM [facility] MCH 29.5 26.5 - 31.4 PG 05/09/2019 7:20 PM [facility] MCHC 32.5 31.9 - 34.8 G/DL 05/09/2019 7:20 PM [facility] RDW 12.8 12.3 - 14.3 % 05/09/2019 7:20 PM [facility] PLT 199 151 - 353 x10'3/uL 05/09/2019 7:20 PM [facility] MPV 10.0 9.7 - 11.9 FL 05/09/2019 7:20 PM [facility] RBC MORPHOLOGY NORMAL 05/09/2019 7:20 PM [facility] PLT MORPH. NORMAL 05/09/2019 7:20 PM [facility] WBC MORPHOLOGY NORMAL 05/09/2019 7:20 PM [facility] LYMPHOCYTES % 6.6(L) 15.8 - 45.0 % 05/09/2019 7:20 PM [facility] NEUTROPHILS % 85.0(H) 42.1 - 71.9 % 05/09/2019 7:20 PM [facility] MONOCYTES % 7.2 5.7 - 12.5 % 05/09/2019 7:20 PM [facility] EOSINOPHILS 0.4 0.0 - 5.6 % 05/09/2019 7:20 PM INTERMODAL TRUCK DRIVER [facility] BASOPHILS 0.2 0.0 - 1.3 % 05/09/2019 7:20 PM [facility] ABS. NEUTROPHILS TOTAL 10.68(H) 1.40 - 6.00 x10'3/uL 05/09/2019 7:20 PM INTERMODAL TRUCK DRIVER [facility] IMMATURE GRANS % 0.6(H) 0.0 - 0.5 % 05/09/2019 7:20 PM [facility] ABS. LYMPHOCYTES 0.83 0.80 - 4.70 x10'3/uL 05/09/2019 7:20 PM [facility] 05/09/2019 6:10 PM INTERMODAL TRUCK DRIVER Tasneem Darnell [facility] LABORATORY Final Res ult [facility] [address] [place] [address], [place] [phone] * CULTURE, BACTERIA, BLOOD (05/09/2019 6:00 PM INTERMODAL TRUCK DRIVER) SPEC DESCRIPTION BLOOD 05/09/2019 5:45 PM INTERMODAL TRUCK DRIVER [facility] SPECIAL REQUESTS NO SPECIAL REQUEST 05/09/2019 5:45 PM INTERMODAL TRUCK DRIVER [facility] CULTURE RESULT NO GROWTH 5 DAYS 05/14/2019 1:42 PM INTERMODAL TRUCK DRIVER [facility] BLOOD SPECIMEN OBTAINED FOR BLOOD CULTURE / Unknown 05/09/2019 6:00 PM INTERMODAL TRUCK DRIVER 05/09/2019 6:53 PM INTERMODAL TRUCK DRIVER Tasneem Darnell [facility] MICROBIOLOGY - GENERAL OR DERABLES Final Result [facility] [address] [place] [address], [place] [phone] [facility] [address] [place] [address], [place] [phone] * URINALYSIS MICRO ONLY (05/09/2019 5:58 PM INTERMODAL TRUCK DRIVER) WBC/HPF 25-50 0 - 5 /HPF 05/09/2019 6:10 PM INTERMODAL TRUCK DRIVER [facility] RBC/HPF NONE SEEN 0 - 5 /HPF 05/09/2019 6:10 PM [employer]MODAL TRUCK DRIVER [facility] EPI/HPF RARE /HPF 05/09/2019 6:10 PM INTERMODAL TRUCK DRIVER [facility] BACTERIA (U) RARE /HPF 05/09/2019 6:10 PM INTERMODAL TRUCK DRIVER [facility] 05/09/2019 5:58 PM INTERMODAL TRUCK DRIVER Tasneem Adams Darnell [employer] URINE ORDERABLES Final Re sult [facility] [address] [place] [address], [place] [phone] * (ABNORMAL) URINALYSIS (05/09/2019 5:58 PM INTERMODAL TRUCK DRIVER) COLOR (U) YELLOW 05/09/2019 6:10 PM INTERMODAL TRUCK DRIVER [facility] TRANSPARENCY HAZY 05/09/2019 6:10 PM INTERMODAL TRUCK DRIVER [facility] SPECIFIC GRAVITY (U) 1.020 1.000 - 1.030 05/09/2019 6:10 PM [facility] U PH 6.0 5.0 - 9.0 05/09/2019 6:10 PM INTERMODAL TRUCK DRIVER [facility] LEUKOCYTES (U) 1+(A) NEGATIVE 05/09/2019 6:10 PM [facility] NITRITES POSITIVE(A) NEGATIVE 05/09/2019 6:10 PM INTERMODAL TRUCK DRIVER [facility] PROTEIN (U) 1+(A) NEGATIVE 05/09/2019 6:10 PM [facility] URINE GLUCOSE NEGATIVE NEGATIVE 05/09/2019 6:10 PM INTERMODAL TRUCK DRIVER [facility] KETONES MG/DL (U) NEGATIVE NEGATIVE 05/09/2019 6:10 PM [facility] BILIRUBIN (U) NEGATIVE NEGATIVE 05/09/2019 6:10 PM INTERMODAL TRUCK DRIVER [facility] BLOOD (U) NEGATIVE NEGATIVE 05/09/2019 6:10 PM [facility] CULTURE & SENSITIVITY INDICATED? SPECIMEN SETUP FOR CULTURE 05/09/2019 6:10 PM INTERMODAL TRUCK DRIVER [facility] URINE SPECIMEN OBTAINED BY CLEAN CATCH PROCEDURE / Unknown 05/09/2019 5:58 PM INTERMODAL TRUCK DRIVER us Tasneem Darnell COMMERCIAL SALES CONSULTANT-BC URINE ORDERABLES Final Re sult [facility] [address] [place] [address], * (ABNORMAL) CULTURE URINE (05/09/2019 5:57 PM INTERMODAL TRUCK DRIVER) SPEC DESCRIPTION URINE CLEAN CATCH 05/09/2019 5:52 PM INTERMODAL TRUCK DRIVER [facility] SPECIAL REQUESTS NO SPECIAL REQUEST 05/09/2019 5:52 PM INTERMODAL TRUCK DRIVER [facility] CULTURE RESULT 10,000-49,000 COL/ML KLEBSIELLA PNEUMONIAE (A) 05/11/2019 10:46 PM INTERMODAL TRUCK DRIVER [facility] URINE SPECIMEN OBTAINED BY CLEAN CATCH PROCEDURE / Unknown 05/09/2019 5:57 PM INTERMODAL TRUCK DRIVER 05/09/2019 5:58 PM INTERMODAL TRUCK DRIVER Narrative Organism Antibiotic Method Susceptibility Klebsiella pneumoniae AMPICILLIN SHARON (VITEK) >=32: Resistant Klebsiella pneumoniae AMPICILLIN/SULBACTAM SHARON (VITEK) 8: Sensitive Klebsiella pneumoniae CEFTRIAXONE SHARON (VITEK) <=1: Sensitive Klebsiella pneumoniae CEFTAZIDIME SHARON (VITEK) <=1: Sensitive Klebsiella pneumoniae CEFAZOLIN SHARON (VITEK) <=4: Sensitive Klebsiella pneumoniae ESBL SHARON (VITEK) NEG: Sensitive Klebsiella pneumoniae NITROFURANTOIN SHARON (VITEK) 64: Intermediate Klebsiella pneumoniae GENTAMICIN SHARON (VITEK) <=1: Sensitive Klebsiella pneumoniae LEVOFLOXACIN SHARON (VITEK) <=0.12: Sensitive Klebsiella pneumoniae PIPRACIL/TAZO SHARON (VITEK) <=4: Sensitive Klebsiella pneumoniae TRIMETH-SULFAMETH. SHARON (VITEK) <=20: Sensitive Tasneem Adams Darnell COMMERCIAL SALES CONSULTANT- MICROBIOLOGY - GENERAL OR DERABLES Final Result Performing Organization Address City/State/[facility] Co de Phone Number [facility] [address] [place] [address], [place] [phone] [facility] [address] [place] [address], [place] [phone] documented in this encounter Visit Diagnoses Diagnosis Sepsis ([facility])- Primary Urinary tract infection Urinary tract infection, site not specified Epididymitis Orchitis and epididymitis, unspecified Sepsis without acute organ dysfunction, due to unspecified organism ([facility]) Urinary tract infection Urinary tract infection, site not specified Epididymitis Orchitis and epididymitis, unspecified documented in this encounter Administered Medications Inactive Administered Medications - up to 3 most recent administrations Medication Order MAR Action Action Date Dose Rate Site acetaminophen (TYLENOL) tablet 1,000 mg 1,000 mg, Oral, Once, 1 dose, On 05/09/19 at 1800, Maximum dose of acetaminophen is 4000 mg from all sources in 24 hours. Given 05/09/2019 6:27 PM INTERMODAL TRUCK DRIVER 1,000 mg acetaminophen (TYLENOL) tablet 650 mg 650 mg, Oral, Every 4 hours PRN, Fever, Starting on 05/09/19 at 2332, Until 05/15/19 at 1438, For temperature greater than 38.6 C (101.5 F) Given 05/15/2019 10:37 AM INTERMODAL TRUCK DRIVER 650 mg Given 05/13/2019 8:08 AM INTERMODAL TRUCK DRIVER 650 mg Given 05/12/2019 12:03 PM INTERMODAL TRUCK DRIVER 650 mg carBAMazepine XR (TEGRETOL XR) 12 hr tablet 1,000 mg 1,000 mg, Oral, 2 times daily, First dose (after last modification) on Fri05/10/19 at 0100, Until Discontinued, Give with food. Do not break, chew, or crush. HAZARDOUS MEDICATION Given 05/10/2019 1:07 AM INTERMODAL TRUCK DRIVER 1,000 mg carBAMazepine XR (TEGRETOL XR) 12 hr tablet 1,000 mg 1,000 mg, Oral, Nightly at bedtime, First dose on Fri05/11/19 at 2100, Until Discontinued, Give with food. Do not break, chew, or crush. HAZARDOUS MEDICATION Given 05/14/2019 8:40 PM INTERMODAL TRUCK DRIVER 1,000 m g Given 05/13/2019 8:59 PM INTERMODAL TRUCK DRIVER 1,000 mg Given 05/12/2019 8:36 PM INTERMODAL TRUCK DRIVER 1,000 mg carBAMazepine XR (TEGRETOL XR) 12 hr tablet 500 mg 500 mg, Oral, Once, 1 dose, On Fri05/11/19 at 0930, Give with food. Do not break, chew, or crush. HAZARDOUS MEDICATION Given 05/11/2019 9:19 AM INTERMODAL TRUCK DRIVER 500 mg ceFAZolin (ANCEF) 2 g in sterile water 20 mL IV 2 g, Intravenous, at 240 mL/hr, Every 8 hours, First dose on Fri05/13/19 at 1600, Until Discontinued Given 05/13/2019 3:37 PM INTERMODAL TRUCK DRIVER 2 g 240 mL/hr cefTRIAXone (ROCEPHIN) 2 g in sterile water 20 mL IV 2 g, Intravenous, at 240 mL/hr, Once, 1 dose, On Fri05/09/19 at 1830 Given 05/09/2019 6:34 PM INTERMODAL TRUCK DRIVER 2 g 240 mL/hr Right Arm cyclobenzaprine (FLEXERIL) tablet 10 mg 10 mg, Oral, Nightly at bedtime, First dose on Fri05/10/19 at 0000, Until Discontinued Given 05/14/2019 8:40 PM 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 Given 05/13/2019 2:50 PM INTERMODAL TRUCK DRIVER 50 mg diphenhydrAMINE (BENADRYL) injection 50 mg 50 mg, Intravenous, Once, 1 dose, On Fri05/14/19 at 0930, For IV administration, give no faster than 25 mg/min. Given 05/14/2019 9:22 AM INTERMODAL TRUCK DRIVER 50 mg enoxaparin (LOVENOX) 40 MG/0.4ML syringe 40 mg 40 mg, Subcutaneous, Every 24 hours, First dose on Fri05/10/19 at 0900, Until Discontinued, Administer by deep SubQ injection alternating between the left or right anterolateral and left or right posterolateral abdominal wall. Given 05/15/2019 9:20 AM INTERMODAL TRUCK DRIVER 40 mg Right Lower Abdomen Given 05/14/2019 9:13 AM INTERMODAL TRUCK DRIVER 40 mg Ri ght Lower Abdomen Given 05/13/2019 8:34 AM INTERMODAL TRUCK DRIVER 40 mg Le ft Lower Abdomen fentaNYL (SUBLIMAZE) 100 MCG/2ML injection 1 dose, Starting on Fri05/09/19 at 2331, Until Fri05/10/19 at 2335, Created by cabinet override Given 05/10/2019 11:35 PM INTERMODAL TRUCK DRIVER hydrocodone-acetaminophen (NORCO) 7.5-325 MG tablet 1 tablet 1 tablet, Oral, Every 6 hours PRN, Moderate pain (Scale 4 - 7), Starting on Fri05/11/19 at 0926, Until Alyssa 05/13/19 at 1238, Maximum dose of acetaminophen is 4000 mg from all sources in 24 hours. Given 05/12/2019 8:37 PM INTERMODAL TRUCK DRIVER 1 tabl et Given 05/12/2019 5:18 AM INTERMODAL TRUCK DRIVER 1 tablet hydrocodone-acetaminophen (NORCO) 7.5-325 MG tablet 1 tablet 1 tablet, Oral, Every 6 hours PRN, Moderate pain (Scale 4 - 7), Severe pain (Scale 8 - 10), Starting on Alyssa 05/13/19 at 1238, Until 05/15/19 at 1438, Maximum dose of acetaminophen is 4000 mg from all sources in 24 hours. ibuprofen (MOTRIN) tablet 400 mg 400 mg, Oral, Every 6 hours PRN, Mild pain (Scale 1 - 3), Fever, Starting on Fri05/11/19 at 0925, Until Alyssa 05/13/19 at 1238 Given 05/12/2019 7:12 PM INTERMODAL TRUCK DRIVER 400 mg Given 05/12/2019 8:06 AM INTERMODAL TRUCK DRIVER 400 mg Given 05/11/2019 9:10 PM INTERMODAL TRUCK DRIVER 400 mg ibuprofen (MOTRIN) tablet 400 mg 400 mg, Oral, Every 6 hours PRN, Headaches, Fever, Discomfort, Starting on Alyssa 05/13/19 at 1238, Until 05/15/19 at 1438 Given 05/13/2019 12:56 PM INTERMODAL TRUCK DRIVER 400 mg ketorolac (TORADOL) injection 30 mg 30 mg, Intravenous, Once, 1 dose, On [place] 05/09/19 at 2115, For IV administration, give over 15 seconds. Given 05/09/2019 9:32 PM INTERMODAL TRUCK DRIVER 30 mg ketorolac (TORADOL) tablet 10 mg 10 mg, Oral, Every 6 hours PRN, Moderate pain (Scale 4 - 7), Starting on Fri05/10/19 at 0428, Until Fri05/11/19 at 0926 Given 05/11/2019 12:56 AM INTERMODAL TRUCK DRIVER 10 mg Given 05/10/2019 6:39 PM INTERMODAL TRUCK DRIVER 10 mg Given 05/10/2019 11:56 AM INTERMODAL TRUCK DRIVER 10 mg levofloxacin (LEVAQUIN) IVPB 500 mg 500 mg, Intravenous, at 100 mL/hr, Every 24 hours, First dose on Alyssa 05/13/19 at 1630, Until Discontinued New Bag 05/14/2019 8:44 PM INTERMODAL TRUCK DRIVER 500 mg 100 mL/hr New Bag 05/13/2019 9:00 PM INTERMODAL TRUCK DRIVER 500 mg 100 mL/hr levofloxacin (LEVAQUIN) IVPB 750 mg 750 mg, Intravenous, at 100 mL/hr, Once, 1 dose, On [place] 05/09/19 at 1830 New Bag 05/09/2019 6:34 PM INTERMODAL TRUCK DRIVER 750 m g 100 mL/hr levofloxacin (LEVAQUIN) IVPB 750 mg 750 mg, Intravenous, at 100 mL/hr, Every 24 hours, First dose on Fri05/10/19 at 1830, Until Discontinued New Bag 05/10/2019 6:29 PM INTERMODAL TRUCK DRIVER 750 mg 100 mL/hr metoclopramide (REGLAN) injection 10 mg 10 mg, Intravenous, Once, 1 dose, On Alyssa 05/13/19 at 1500, Administer IV over 1-2 minutes Given 05/13/2019 2:50 PM INTERMODAL TRUCK DRIVER 10 mg metoclopramide (REGLAN) injection 10 mg 10 mg, Intravenous, Once, 1 dose, On Fri05/14/19 at 0930 Given 05/14/2019 9:22 AM INTERMODAL TRUCK DRIVER 10 mg ondansetron (ZOFRAN) injection 4 mg 4 mg, Intravenous, Once, 1 dose, On Fri05/09/19 at 1800, IV push over 2-5 minutes. Given 05/09/2019 6:27 PM INTERMODAL TRUCK DRIVER 4 mg pantoprazole EC (PROTONIX) tablet 40 mg 40 mg, Oral, Daily, First dose on Fri05/10/19 at 0900, Until Discontinued, Do not break, chew, or crush. Given 05/15/2019 9:21 AM INTERMODAL TRUCK DRIVER 40 mg Given 05/14/2019 9:13 AM INTERMODAL TRUCK DRIVER 40 mg Given 05/13/2019 8:35 AM INTERMODAL TRUCK DRIVER 40 mg piperacillin-tazobactam (ZOSYN) 3.375 g in sodium chloride 0.9 % 50 mL IVPB 3.375 g, Intravenous, Administer over 30 Minutes, Once, 1 dose, On Fri05/11/19 at 1000, Administer over 30 minutes. New Bag 05/11/2019 9:43 AM INTERMODAL TRUCK DRIVER 3.375 g 100 mL/hr piperacillin-tazobactam (ZOSYN) 3.375 g in sodium chloride 0.9 % 50 mL IVPB 3.375 g, Intravenous, Administer over 240 Minutes, Every 8 hours, First dose on Fri05/11/19 at 1600, Until Discontinued, Administer over 4 hours (extended infusion). New Bag 05/13/2019 8:35 AM INTERMODAL TRUCK DRIVER 3.375 g 12.5 mL/hr New Bag 05/12/2019 4:35 PM INTERMODAL TRUCK DRIVER 3.375 g 12.5 mL/hr New Bag 05/12/2019 8:06 AM INTERMODAL TRUCK DRIVER 3.375 g 12.5 mL/hr psyllium (METAMUCIL) 28 % packet 1 packet 1 packet, Oral, 3 times daily, First dose on Fri05/11/19 at 1000, Until Discontinued, Mix dose in 240 mL water or juice Given 05/11/2019 9:34 AM INTERMODAL TRUCK DRIVER 1 packet psyllium (METAMUCIL) 28 % packet 1 packet 1 packet, Oral, Daily, First dose (after last modification) on Fri05/12/19 at 0900, Until Discontinued, Mix dose in 240 mL water or juice Given 05/15/2019 9:21 AM INTERMODAL TRUCK DRIVER 1 packet Given 05/14/2019 9:13 AM INTERMODAL TRUCK DRIVER 1 packet Given 05/13/2019 8:34 AM INTERMODAL TRUCK DRIVER 1 packet senna-docusate (SENOKOT-S) 8.6-50 MG tablet 1 tablet 1 tablet, Oral, Nightly at bedtime, First dose on Fri05/11/19 at 2100, Until Discontinued Given 05/14/2019 8:40 PM INTERMODAL TRUCK DRIVER 1 tablet Given 05/13/2019 9:00 PM INTERMODAL TRUCK DRIVER 1 tablet Given 05/12/2019 8:37 PM INTERMODAL TRUCK DRIVER 1 tablet sodium chloride 0.9% bolus infusion SOLN 1,000 mL 1,000 mL, Intravenous, Administer over 15 Minutes, Once, 1 dose, On Fri05/09/19 at 1800 New Bag 05/09/2019 6:25 PM INTERMODAL TRUCK DRIVER 1,000 mLs 999 mL/hr sodium chloride 0.9% bolus infusion SOLN 1,000 mL 1,000 mL, Intravenous, Administer over 15 Minutes, Bolus (Once), 1 dose, On Fri05/09/19 at 2000 New 05/09/2019 8:07 PM INTERMODAL TRUCK DRIVER 1,000 mLs sodium chloride 0.9% infusion at 125 mL/hr, Intravenous, Continuous, Starting on Fri05/10/19 at 0000, Until 05/15/19 at 1438 New Bag 05/15/2019 6:21 AM INTERMODAL TRUCK DRIVER 1 mL 125 mL/hr Rate/Dose Verify 05/15/2019 6:20 AM INTERMODAL TRUCK DRIVER 125 mL/ hr New Bag 05/14/2019 8:37 PM INTERMODAL TRUCK DRIVER 125 mL/hr documented in this encounter Active and Recently Administered Medications Times are shown in INTERMODAL TRUCK DRIVER. Scheduled Medication Order 05/13/2019 05/14/2019 05/15/2019 carBAMazepine XR (TEGRETOL XR) 12 hr tablet 1,000 mg 1,000 mg, Oral, Nightly at bedtime, First dose on Fri05/11/19 at 2100, Until Discontinued, Give with food. Do not break, chew, or crush. HAZARDOUS MEDICATION 2058 (Given - Provider: Steph Newman RN) 2039 (Given - Provider: Estela Silva RN) ceFAZolin (ANCEF) 2 g in sterile water 20 mL IV (CANCELED) 2 g, Intravenous, at 240 mL/hr, Every 8 hours, First dose on Alyssa 05/13/19 at 1600, Until Discontinued 153 (Given - Provider: Jaqueline Carter RN) cyclobenzaprine (FLEXERIL) tablet 10 mg 10 mg, Oral, Nightly at bedtime, First dose on Fri05/10/19 at 0000, Until Discontinued 2058 (Given - Provider: Steph Newman RN) 2039 (Given - Provider: Estela Silva RN) diphenhydrAMINE (BENADRYL) injection 50 mg (COMPLETED)(Linked Group 1) 50 mg, Intravenous, Once, 1 dose, On Alyssa 05/13/19 at 1500, For IV administration, give no faster than 25 mg/min. 145 (Given - Provider: Jaqueline Carter RN) diphenhydrAMINE (BENADRYL) injection 50 mg (COMPLETED) 50 mg, Intravenous, Once, 1 dose, On Fri05/14/19 at 0930, For IV administration, give no faster than 25 mg/min. 09 (Given - Provider: Ivon Busch RN) enoxaparin (LOVENOX) 40 MG/0.4ML syringe 40 mg(Linked Group 2) 40 mg, Subcutaneous, Every 24 hours, First dose on Fri05/10/19 at 0900, Until Discontinued, Administer by deep SubQ injection alternating between the left or right anterolateral and left or right posterolateral abdominal wall. 0834 (Given - Provider: Tanya Pires, Nurse Student) 0913 (Given - Provider: Ivon Busch RN) 0920 (Given - Provider: Cassie Dawn RN) levofloxacin (LEVAQUIN) IVPB 500 mg 500 mg, Intravenous, at 100 mL/hr, Every 24 hours, First dose on Alyssa 05/13/19 at 1630, Until Discontinued 1738 (Not Given - Provider: Jaqueline Carter RN - Reason: Other - Comment: dose reschedule)2100 (New Bag - Provider: Steph Newman RN)2230 (Infusion Stop Time - Provider: Steph Newman RN) 2043 (New Bag - Provider: Estela Silva RN)2143 (Infusion Stop Time - Provider: Estela Silva RN) metoclopramide (REGLAN) injection 10 mg (COMPLETED)(Linked Group 1) 10 mg, Intravenous, Once, 1 dose, On Alyssa 05/13/19 at 1500, Administer IV over 1-2 minutes 1450 (Given - Provider: Jaqueline Catrer RN) metoclopramide (REGLAN) injection 10 mg (COMPLETED) 10 mg, Intravenous, Once, 1 dose, On Fri05/14/19 at 0930 0922 (Given - Provider: Ivon Busch RN) pantoprazole EC (PROTONIX) tablet 40 mg 40 mg, Oral, Daily, First dose on Fri05/10/19 at 0900, Until Discontinued, Do not break, chew, or crush. 0835 (Given - Provider: Tanya Pires, Nurse Student) 09 (Given - Provider: Ivon Busch RN) 920 (Given - Provider: Cassie Dawn RN) piperacillin-tazobactam (ZOSYN) 3.375 g in sodium chloride 0.9 % 50 mL IVPB (CANCELED) 3.375 g, Intravenous, Administer over 240 Minutes, Every 8 hours, First dose on Fri05/11/19 at 1600, Until Discontinued, Administer over 4 hours (extended infusion). 0022 (Not Given - Provider: Chiqui Bernal RN - Reason: Schedule Changed)0835 (New Bag - Provider: Tanya Pires, Nurse Student)1240 (Infusion Stop Time - Provider: Jaqueline Carter RN) psyllium (METAMUCIL) 28 % packet 1 packet 1 packet, Oral, Daily, First dose (after last modification) on Fri05/12/19 at 0900, Until Discontinued, Mix dose in 240 mL water or juice 0834 (Given - Provider: Tanya Pires, Nurse Student) 09 (Given - Provider: Ivon Busch RN) 920 (Given - Provider: Cassie Dawn RN) senna-docusate (SENOKOT-S) 8.6-50 MG tablet 1 tablet 1 tablet, Oral, Nightly at bedtime, First dose on Fri05/11/19 at 2100, Until Discontinued 2100 (Given - Provider: Steph Newman RN) 2040 (Given - Provider: Estela Silva, DANNA) Continuous Medication Order 05/13/2019 05/14/2019 05/15/2019 sodium chloride 0.9% infusion at 125 mL/hr, Intravenous, Continuous, Starting on 05/10/19 at 0000, Until 05/15/19 at 1438 0445 (New Bag - Provider: Chiqui Bernal, RN)1914 (New Bag - Provider: Jaqueline Carter, RN) 0423 (New Bag - Provider: Steph Newman, DANNA)1212 (New Bag - Provider: Ivon Busch, RN)2037 (New Bag - Provider: Estela Silva, DANNA) 0620 (Rate/Dose Verify - Provider: Jacque Prasad, DANNA)0621 (New Bag - Provider: Jacque Prasad, DANNA) PRN Medication Order 05/13/2019 05/14/2019 05/15/2019 acetaminophen (TYLENOL) tablet 650 mg 650 mg, Oral, Every 4 hours PRN, Fever, Starting on 05/09/19 at 2332, Until 05/15/19 at 1438, For temperature greater than 38.6 C (101.5 F) 0808 (Given - Provider: Tanya Pires, Nurse Student) 1037 (Given - Provider: Cassie Dawn, DANNA) hydrocodone-acetaminophen (NORCO) 7.5-325 MG tablet 1 tablet 1 tablet, Oral, Every 6 hours PRN, Moderate pain (Scale 4 - 7), Severe pain (Scale 8 - 10), Starting on Alyssa 05/13/19 at 1238, Until 05/15/19 at 1438, Maximum dose of acetaminophen is 4000 mg from all sources in 24 hours. ibuprofen (MOTRIN) tablet 400 mg 400 mg, Oral, Every 6 hours PRN, Headaches, Fever, Discomfort, Starting on Alyssa 05/13/19 at 1238, Until 05/15/19 at 1438 1256 (Given - Provider: Jaqueline Carter, DANNA) Linked Groups Order Group 1: metoclopramide (REGLAN) injection 10 mg (COMPLETED)Jump to med 10 mg, Intravenous, Once, 1 dose, On Alyssa 05/13/19 at 1500, Administer IV over 1-2 minutes And diphenhydrAMINE (BENADRYL) injection 50 mg (COMPLETED)Jump to med 50 mg, Intravenous, Once, 1 dose, On Alyssa 05/13/19 at 1500, For IV administration, give no faster than 25 mg/min. Group 2: enoxaparin (LOVENOX) 40 MG/0.4ML syringe 40 mgJump to med 40 mg, Subcutaneous, Every 24 hours, First dose on Fri05/10/19 at 0900, Until Discontinued, Administer by deep SubQ injection alternating between the left or right anterolateral and left or right posterolateral abdominal wall. And Moderate Risk for VTE (COMPLETED) documented in this encounter Care Teams Shrub Planter Relationship Specialty Start Date End Date Jose Champagne MD [address] [address] PCP - General INTERNAL MEDICINE 05/09/19 documented as of this encounter
--- OUTSIDE RECORDS SUMMARY | 2024-03-26 17:00 | XMS_ITS | Encounter Summary ---
Author Organization [facility] Address [address] [place] [address]. [place], [place] [id number] [place] [address] Care Team Providers Care Door Machine Operator Name Role Phone Jose Mo MD Primary Care Provider [phone] Encounter Details Date Type Department Care Team (Latest Contact Info) Description 05/22/2019 2:14 PM BUSINESS AREA DIRECTOR - 05/22/2019 11:59 PM BUSINESS AREA DIRECTOR Hospital Encounter [facility] [address] [place] [address] Cheryl Taylor, [place] [address] Discharge Disposition: Home or Self Care (Routine Discharge) Social History Tobacco Use Types Packs/Day Years Used Date Smoking Tobacco: Former Cigarettes Q uit: 06/11/2018 Smokeless Tobacco: Never Alcohol Use Standard Drinks/Week Comments Yes 0 (1 standard drink = 0.6 oz pur e alcohol) socially Sex and Gender Information Value Date Recorded Sex Assigned at Male 05/10/2019 1:27 AM BUSINESS AREA DIRECTOR Legal Sex Male 7:38 PM CDT Gender Identity Male 05/10/2019 1:27 AM BUSINESS AREA DIRECTOR Sexual Orientation Not on file documented as of this encounter Functional Status * RETIRED Are you deaf or do you have serious difficulty hearing Answer Date of Assessment Author Status No 05/15/2019 12:02 PM BUSINESS AREA DIRECTOR Acti ve * RETIRED Are you blind [...] Perdomo RN Active documented in this encounter Medications at Time [...] 04/29/2019 1 documented as of this encounter Plan of Treatment Not on file documented as of this encounter Goals Goal Patient Goal Type Associated Problems Recent Progress Patient-Stated? Author Return home General No Zayra Kidd, MAINFRAME DEVELOPER Note: Plan to return home with significant other. No DME or home health needed at this time. documented as of this encounter Procedures Procedure Name Priority Date/Time Associated Diagnosis Comments BASIC METABOLIC PANEL Routine 05/22/2019 2:19 PM BUSINESS AREA DIRECTOR Epididymitis Sepsis without acute organ dysfunction, due to unspecified organism ([facility]) CBC W/DIFF AUTOMATED Routine 05/22/2019 2:19 PM BUSINESS AREA DIRECTOR Epididymitis Sepsis without acute organ dysfunction, due to unspecified organism ([facility]) documented in this encounter Results * (ABNORMAL) BASIC METABOLIC PANEL (05/22/2019 2:19 PM BUSINESS AREA DIRECTOR) GLUCOSE 104(H) 70 - 99 MG/DL 05/22/2019 2:40 PM [facility] BUN 14 7 - 18 MG/DL 05/22/2019 2:40 PM [facility] CREATININE S/P/B 0.83 0.7 - 1.3 MG/DL 05/22/2019 2:40 PM [facility] SODIUM S/P/B 138 136 - 145 MMOL/L 05/22/2019 2:40 PM [facility] POTASSIUM S/P/B 4.7 3.5 - 5.1 MMOL/L 05/22/2019 2:40 PM [facility] CHLORIDE S/P/B 100 100 - 108 MMOL/L 05/22/2019 2:40 PM [facility] CO2 23.5 21 - 32 MMOL/L 05/22/2019 2:40 PM [facility] CALCIUM S/P/B 8.8 8.5 - 10.1 MG/DL 05/22/2019 2:40 PM [facility] ANION GAP 14.5 5 - 15 MMOL/L 05/22/2019 2:40 PM [facility] BUN CREATININE RATIO 16.9 6 - 26 05/22/2019 2:40 PM BUSINESS AREA DIRECTOR [facility] EGFR NON-AFR. AMER. >90 >90 ML/MIN/1.7 3 M2 05/22/2019 2:40 PM [facility] EGFR AFR. AMER. >90 >90 ML/MIN/1.7 3 M2 05/22/2019 2:40 PM [facility] Comment: NOTE: eGFR is not calculated for patients <18 years of age. This is an estimated GFR (CKD EPI) and should not be used for calculating drug doses. 05/22/2019 2:19 PM BUSINESS AREA DIRECTOR us Cheryl Taylor PACKAGE DESIGNER LABORATORY Final Result [facility] [address] [place] [address], [place] [phone] * (ABNORMAL) CBC W/DIFF AUTOMATED (05/22/2019 2:19 PM BUSINESS AREA DIRECTOR) WBC 8.1 4.4 - 11.0 x10'3/uL 05/22/2019 2:27 PM [facility] RBC 4.32(L) 4.50 - 5.90 x10'6/uL 05/22/2019 2:27 PM [facility] HGB 13.0(L) 14.0 - 17.5 G/DL 05/22/2019 2:27 PM [facility] HCT 40.0(L) 41.5 - 50.4 % 05/22/2019 2:27 PM [facility] MCV 92.6 80.0 - 96.0 FL 05/22/2019 2:27 PM [facility] MCH 30.1 26.5 - 31.4 PG 05/22/2019 2:27 PM [facility] MCHC 32.5 31.9 - 34.8 G/DL 05/22/2019 2:27 PM [facility] RDW 12.9 12.3 - 14.3 % 05/22/2019 2:27 PM [facility] PLT 314 151 - 353 x10'3/uL 05/22/2019 2:27 PM [facility] MPV 10.1 9.7 - 11.9 FL 05/22/2019 2:27 PM [facility] RBC MORPHOLOGY NORMAL 05/22/2019 2:27 PM [facility] PLT MORPH. NORMAL 05/22/2019 2:27 PM [facility] WBC MORPHOLOGY NORMAL 05/22/2019 2:27 PM [facility] LYMPHOCYTES % 29.3 15.8 - 45.0 % 05/22/2019 2:27 PM [facility] NEUTROPHILS % 60.3 42.1 - 71.9 % 05/22/2019 2:27 PM [facility] MONOCYTES % 7.4 5.7 - 12.5 % 05/22/2019 2:27 PM [facility] EOSINOPHILS 1.2 0.0 - 5.6 % 05/22/2019 2:27 PM [facility] BASOPHILS 0.6 0.0 - 1.3 % 05/22/2019 2:27 PM [facility] ABS. NEUTROPHILS TOTAL 4.85 1.40 - 6.00 x10'3/uL 05/22/2019 2:27 PM [facility] IMMATURE GRANS % 1.2(H) 0.0 - 0.5 % 05/22/2019 2:27 PM [facility] ABS. LYMPHOCYTES 2.36 0.80 - 4.70 x10'3/uL 05/22/2019 2:27 PM [facility] 05/22/2019 2:19 PM BUSINESS AREA DIRECTOR Cheryl Marinelli Chloesusi PACKAGE DESIGNER LABORATORY Final Result [facility] [address] [place] [address], documented in this encounter Visit Diagnoses Diagnosis Epididymitis Orchitis and epididymitis, unspecified Sepsis without acute organ dysfunction, due to unspecified organism ([facility]) documented in this encounter Care Teams Door Machine Operator Relationship Specialty Start Date End Date Jose Mo MD [facility] [address] [address] PCP - General INTERNAL MEDICINE 05/09/19 documented as of this encounter
--- OUTSIDE RECORDS SUMMARY | 2024-03-26 17:00 | XMS_ITS | Encounter Summary ---
Author Organization [facility] Address [address] [place] [address]. [place], [place] [address] [place] [address] Care Team Providers Care Cylinder Inspector Name Role Phone Jose Mo MD Primary Care Provider [phone] Encounter Details Date Type Department Care Team (Latest Contact Info) Description 06/15/2022 Travel Social History Tobacco Use Types Packs/Day Years Used Date Smoking Tobacco: Former Cigarettes Q uit: 06/11/2018 Smokeless Tobacco: Never Alcohol Use Standard Drinks/Week Comments Not Currently 0 (1 standard drink = 0.6 oz pur e alcohol) socially Sex and Gender Information Value Date Recorded Sex Assigned at Male 05/10/2019 1:27 AM VARIOUS EXCEPTIONALITIES TEACHER Legal Sex Male 7:38 PM CDT Gender Identity Male 05/10/2019 1:27 AM VARIOUS EXCEPTIONALITIES TEACHER Sexual Orientation Not on file COVID-19 Exposure Response Date Recorded In the last 10 days, have yo u been in contact with someone who was confirmed or suspected to have Coronavirus/COVID-19? No / Unsure 06/15/2022 7:32 PM VARIOUS EXCEPTIONALITIES TEACHER documented as of this encounter Functional Status * RETIRED Are you deaf or do you have serious difficulty hearing Answer Date of Assessment Author Status No 05/15/2019 12:02 PM VARIOUS EXCEPTIONALITIES TEACHER 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 Answer Date of Assessment Author Status No 05/15/2019 12:02 PM VARIOUS EXCEPTIONALITIES TEACHER Acti ve * Do you have serious [...] Author Return home General No Zayra Kidd, STOCKROOM ATTENDANT Note: Plan to return home with significant other. No DME or home health needed at this time. documented as of this encounter Visit Diagnoses Not on filedocumented in this encounter Care Teams Cylinder Inspector Relationship Specialty Start Date End Date Jose Mo MD [address] [address] PCP - General INTERNAL MEDICINE 05/09/19 documented as of this encounter
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
--- OUTSIDE RECORDS SUMMARY | 2024-03-26 17:00 | XMS_ITS | Encounter Summary ---
Author Organization [facility] Address [address] [place] [address]. [place], [place] [address] [place] [id number] Care Team Providers Care Lining Strap Closer Name Role Phone Jose Mo MD Primary Care Provider [phone] Reason for Visit * Reason Comments Foot Pain Left. Encounter Details Date Type Department Care Team (Late st Contact Info) Description 04/01/2022 6:40 AM MOLD REPAIRER - 04/01/2022 7:39 AM MOLD REPAIRER Emergency [facility] Emergency Room [address] [place] [address] Foot Pain (Left.) Discharge Disposition: Home or Self Care (Routine Discharge) Social History Tobacco Use Types Packs/Day Years Used Date Smoking Tobacco: Former Cigarettes Q uit: 06/11/2018 Smokeless Tobacco: Never Alcohol Use Standard Drinks/Week Comments Yes 0 (1 standard drink = 0.6 oz pur e alcohol) socially Sex and Gender Information Value Date Recorded Sex Assigned at Male 05/10/2019 1:27 AM MOLD REPAIRER Legal Sex Male 7:38 PM CDT Gender Identity Male 05/10/2019 1:27 AM MOLD REPAIRER Sexual Orientation Not on file COVID-19 Exposure Response Date Recorded In the last 10 days, have yo u been in contact with someone who was confirmed or suspected to have Coronavirus/COVID-19? No / Unsure 04/01/2022 6:37 AM MOLD REPAIRER documented as of this encounter Last Filed Vital Signs Vital Sign Reading Time Taken Comments Blood Pressure 156/85 04/01/2022 6:47 AM MOLD REPAIRER Pulse 77 04/01/2022 6:47 AM MOLD REPAIRER Temperature 36.3 ??C (97.3 ??F) 04/01/2022 6:47 AM CS T Respiratory Rate 18 04/01/2022 6:47 AM MOLD REPAIRER Oxygen Saturation 97% 04/01/2022 6:47 AM MOLD REPAIRER Inhaled Oxygen Concentration - - Weight - - Height - - Body Mass Index - - documented in this encounter Functional Status * RETIRED Are you deaf or do you have serious difficulty hearing Answer Date of Assessment Author Status No 05/15/2019 12:02 PM MOLD REPAIRER 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 Answer Date of Assessment Author Status No 05/15/2019 12:02 PM MOLD REPAIRER Acti ve * Do you have serious [...] this encounter Discharge Instructions * Discharge Instructions* Joseph Frausto MD - 04/01/2022 7:25 AM MOLD REPAIRER Continue all present medication as prescribed. Continue walking boot. When not up and ambulating orweightbearing elevate foot and ice intermittently. Keep your appointment as scheduled with the footspecialist and sightless on Friday, April 03, 2022. Follow-up with Dr. Mo your primary care provider in the next 3 to 5 days as well. Return to emergency department for any problems or concerns. REPAIRER * Attachments The following attachments cannot be sent through Care Everywhere. * Walking Boot (Persian) documented in this encounter Medications at Time [...] mouth 2 (two) times daily with meals. psyllium 51.7 % packet Take 1 packet by mouth daily. tadalafil 5 MG tablet Take 5 mg by mouth as needed for Erectile Dysfunction. 03/23/2019 documented as of this encounter ED Notes * Marlee Beaulieu RN - 04/01/2022 7:39 AM CST Provider discussed today's findings with the patient/family. The patient has been given informationregarding their treatment, follow up and concerning symptoms for which they should seek urgent or emergent attention. I have expressed the importance of seeking attention should there be any new, or w orsening symptoms or persistence of their condition. Patient verbalized understanding of the discharge instructions. REPAIRER * Joseph Frausto MD - 04/01/2022 7:17 AM CST [facility] Emergency Department Note Chief Complaint Chief Complaint Patient presents with ??? Foot Pain Left. History of Present Illness 51-year-old white male presents emerged department with significant other complaining of left foot pain. 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 Patient was seen here on March 23 after a fall with injury to his left foot and ankle x-rays were read as negative. He was placed in a boot. Then he reinjured it on March 27 [facility]. Complains of lateral left foot pain. No significant ankle pain. No knee pain or hip pain. Since the second injury he has been on his feet quite a bit at [employer] and at the in-laws. He has no other complaints. No chest pain or palpitation. No shortness breath or cough. No abdominal pain. Patient primary care provider is Dr. Hunter. Patient is allergies to sulfa. [facility] [place] Patient take cyclobenzaprine esomeprazole hydrocodone. Previous surgeries include cervical fusion right femur fracture right tibia fracture. Patient quit smoking 2018. Drinks alcohol rarely socially. Patient has significant other. Patient works at a [employer] in [employer]. Patient is COVID immunized Medical History ALLERGIES: Allergies Allergen Reactions ??? [...] times daily with meals. Doc [facility] psyllium 51.7 % packet Take 1 [...] Types: Cigarettes Quit date: 06/11/2018 Years since quittin.8 ??? Smokeless tobacco: Never Substance Use Topics ??? Alcohol use: Yes Comment: socially ??? Drug use: Never Review of Systems Review of Systems Constitutional: Negative for chills and fever. HENT: Negative for congestion, rhinorrhea and sore throat. Eyes: Negative for photophobia. Respiratory: Negative for cough, shortness of breath and wheezing. Cardiovascular: Negative for chest pain, palpitations and leg swelling. Gastrointestinal: Negative for abdominal pain, constipation, diarrhea, nausea and vomiting. Endocrine: Negative for polydipsia and polyuria. Genitourinary: Negative for dysuria and frequency. Musculoskeletal: Negative for back pain, neck pain and neck stiffness. Left lateral foot pain Skin: Negative for pallor and rash. Allergic/Immunologic: Negative for immunocompromised state. Neurological: Negative for syncope, light-headedness, numbness and headaches. Hematological: Does not bruise/bleed easily. Psychiatric/Behavioral: Negative for suicidal ideas. Physical Exam Filed Vitals: 04/01/22 0647 BP: (!) 156/85 Pulse: 77 Resp: 18 Temp: 97.3 ??F (36.3 ??C) TempSrc: Temporal SpO2: 97% Physical Exam Vitals and nursing note reviewed. Constitutional: General: He is not in acute distress. Appearance: He is well-developed. HENT: Head: Normocephalic and atraumatic. Right Ear: External ear normal. Left Ear: External ear normal. Eyes: General: No scleral icterus. Conjunctiva/sclera: Conjunctivae normal. Pupils: Pupils are equal, round, and reactive to light. Neck: Vascular: No JVD. Cardiovascular: Rate and Rhythm: Normal rate and regular rhythm. Heart sounds: Normal heart sounds. No murmur heard. No friction rub. No gallop. Pulmonary: Effort: Pulmonary effort is normal. No respiratory distress. Breath sounds: Normal breath sounds. No stridor. No wheezing or rales. Chest: Chest wall: No tenderness. Abdominal: General: Bowel sounds are normal. There is no distension. Palpations: Abdomen is soft. There is no mass. Tenderness: There is no abdominal tenderness. There is no guarding or rebound. Musculoskeletal: General: Tenderness and signs of injury present. No deformity. Normal range of motion. Cervical back: Normal range of motion and neck supple. Comments: Left foot neuro vas intact. Intact light touch. Good cap refill. Moves toes. Tender alongthe fifth metatarsal both distally and proximally. No significant ankle tenderness. No edema slightecchymosis proximally on the lateral foot Skin: General: Skin is warm and dry. Findings: No rash. Neurological: Mental Status: He is alert and oriented to person, place, and time. Psychiatric: Behavior: Behavior normal. Thought Content: Thought content normal. Judgment: Judgment normal. Diagnostic Studies / Procedures ELECTROCARDIOGRAMS: No results found for this visit on 04/01/22. LABORATORY STUDIES: No results found for this visit on 04/01/22. IMAGING STUDIES XR FOOT LT 3V Final Result by User, [id number] (04/01 727) PATIENT NAME: ANGUS JAIN EXAM: Foot DATE OF EXAM: 04/01/2022, 6:24 AM. COMPARISON EXAM: 03/23/2022 INDICATION: Multiple falls last week. Pain lateral side of foot and great toe. TECHNIQUE: AP, lateral and oblique views. FINDINGS: Moderate osteoarthritis at the interphalangeal joint of the great toe with asymmetric joint space narrowing and marginal spurring laterally. Contour deformity in the proximal diaphysis proximal phalanx fifth toe suggesting old healed fracture unchanged in appearance since the prior study. No acute fracture or acute bony abnormality. Soft tissue swelling about the distal forefoot. Moderate-sized Achilles calcaneal spur. IMPRESSION: SOFT TISSUE SWELLING ABOUT THE DISTAL FOREFOOT. PROBABLE OLD HEALED FRACTURE PROXIMAL PHALANX FIFTH TOE. OSTEOARTHRITIS INTERPHALANGEAL JOINT GREAT TOE. CALCANEAL SPUR. Signed: Ashok Isaac MD Referred By: Interpreted By: Ashok Isaac MD, 04/01/2022 7:18 AM ED Course / Medical Decision Making MDM Number of Diagnoses or Management Options Amount and/or Complexity of Data Reviewed Tests in the radiology section of CPT??: reviewed Risk of Complications, Morbidity, and/or Mortality Presenting problems: moderate Diagnostic procedures: moderate Management options: moderate ED Course as of 04/01/22 0731 FriApr 01, 2022 0731 Discussed all results with patient. And significant other. Discussed treatment plan and keeping appointment as scheduled with physician at [facility] on Sunday, April 03, 2022 at 1 PM [CA] ED Course User Index [CA] Joseph Frausto MD Medications - No data to display Clinical Impression Foot injury, left, initial encounter (Primary) Current Discharge Medication List Disposition: Discharge Voice recognition software used. Follow-Up: Jose Mo MD [employer] [facility] [place] [address] In 3 days Keep appointment with the foot surgeon on Friday, April 03, 2022 and sightless as scheduled Joseph Frausto MD 04/01/2022 Joseph Frausto MD 04/01/22 0732 REPAIRER * Aimee Tenorio RN - 04/01/2022 6:44 AM CST To ED with c/o foot pain from a fall with injury to left foot on the . REPAIRER * Jody Childers MD - 04/01/2022 6:43 AM CST EMERGENCY DEPARTMENT ENCOUNTER Medical Screening Examination 04/01/22 6:48 AM Chief Complaint : Foot Pain (Left.) HPI : Angus Jain is a 51-year-old male with hx of quadriparesis who presents with left foot pain after a fall on 03/22. Had xray on 03/23 that was read by radiology as negative. There was concern that perhaps there was a fracture present. Vital Signs: Filed Vitals: 04/01/22 0647 BP: (!) 156/85 Pulse: 77 Resp: 18 Temp: 97.3 ??F (36.3 ??C) TempSrc: Temporal SpO2: 97% Physical exam: A brief physical exam was completed to facilitate/expedite patient care. Plan: Necessary labs/imaging/medications ordered to initiate pt care. Jody Childers MD 04/01/22 0650 REPAIRER documented in this encounter Plan of Treatment Not on file documented as of this encounter Goals Goal Patient Goal Type Associated Problems Recent Progress Patient-Stated? Author Return home General No Zayra Kidd, [employer] Note: Plan to return home with significant other. No DME or home health needed at this time. documented as of this encounter Procedures Procedure Name Priority Date/Time Associated Diagnosis Comments XR FOOT LT 3V STAT 04/01/2022 7:06 AM MOLD REPAIRER documented in this encounter Results * XR FOOT LT 3V (04/01/2022 7:06 AM MOLD REPAIRER) Anatomical Region Laterality Modality Foot Radiographic Cata ging 04/01/2022 7:18 AM MOLD REPAIRER Impressions 04/01/2022 7:21 AM MOLD REPAIRER IMPRESSION: SOFT TISSUE SWELLING ABOUT THE DISTAL FOREFOOT. ??PROBABLE OLD HEALED FRACTURE PROXIMAL PHALANX FIFTH TOE. ??OSTEOARTHRITIS INTERPHALANGEAL JOINT GREAT TOE. ??CALCANEAL SPUR. Signed: Ashok Isaac MD Referred By: ?? Interpreted By: Ashok Isaac MD, 04/01/2022 7:18 AM Narrative 04/01/2022 7:21 AM MOLD REPAIRER PATIENT NAME: ANGUS JAIN EXAM: Foot DATE OF EXAM: 04/01/2022, 6:24 AM. COMPARISON EXAM: 03/23/2022 INDICATION: Multiple falls last week. ??Pain lateral side of foot and great toe. TECHNIQUE: AP, lateral and oblique views. FINDINGS: Moderate osteoarthritis at the interphalangeal joint of the great toe with asymmetric joint space narrowing and marginal spurring laterally. ??Contour deformity in the proximal diaphysis proximal phalanx fifth toe suggesting old healed fracture unchanged in appearance since the prior study. ??No acute fracture or acute bony abnormality. ??Soft tissue swelling about the distal forefoot. ??Moderate-sized Achilles calcaneal spur. Procedure Note Ignacio Isaac MD - 04/01/2022 PATIENT NAME: ANGUS JAIN EXAM: Foot DATE OF EXAM: 04/01/2022, 6:24 AM. COMPARISON EXAM: 03/23/2022 INDICATION: Multiple falls last week. Pain lateral side of foot and greattoe. TECHNIQUE: AP, lateral and oblique views. FINDINGS: Moderate osteoarthritis at the interphalangeal joint of thegreat toe with asymmetric joint space narrowing and marginal spurringlaterally. Contour deformity in the proximal diaphysis proximal phalanxfifth toe suggesting old healed fracture unchanged in appearance since theprior study. No acute fracture or acute bony abnormality. Soft tissueswelling about the distal forefoot. Moderate-sized Achilles calcanealspur. IMPRESSION: SOFT TISSUE SWELLING ABOUT THE DISTAL FOREFOOT. PROBABLE OLDHEALED FRACTURE PROXIMAL PHALANX FIFTH TOE. OSTEOARTHRITISINTERPHALANGEAL JOINT GREAT TOE. CALCANEAL SPUR. Signed: Ashok Isaac MD Referred By: Interpreted By: Ashok Isaac MD, 04/01/2022 7:18 AM us Jody Childers MD GENERAL IMAGING Final Resu lt documented in this encounter Visit Diagnoses Diagnosis Foot injury, left, initial encounter- Primary documented in this encounter Care Teams Lining Strap Closer Relationship Specialty Start Date End Date Jose Mo MD [address] [address] PCP - General INTERNAL MEDICINE 05/09/19 documented as of this encounter
--- OUTSIDE RECORDS SUMMARY | 2024-03-26 17:00 | XMS_ITS | Encounter Summary ---
Author Organization [facility] Address [address] [place] [address]. [place], [place] [id number] [place] [address] Care Team Providers Care Instrument Adjuster Name Role Phone Brooke Mo MD Primary Care Provider [phone] Reason for Visit * Reason Comments Urinary Symptoms Encounter Details Date Type Department Care Team (Late st Contact Info) Description 07/21/2021 3:10 PM CDT - 07/21/2021 5:38 PM CDT Emergency [facility] Emergency Room [id number] [place], [place] [id number] Marcus Fox, PA [address], [place] [id number] Urinary Symptoms Discharge Disposition: Home or Self Care (Routine Discharge) Social History Tobacco Use Types Packs/Day Years Used Date Smoking Tobacco: Former Cigarettes Q uit: 06/11/2018 Smokeless Tobacco: Never Alcohol Use Standard Drinks/Week Comments Yes 0 (1 standard drink = 0.6 oz pur e alcohol) socially Sex and Gender Information Value Date Recorded Sex Assigned at Male 05/10/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 No / Unsure 07/21/2021 3:09 PM CDT documented as of this encounter Last Filed Vital Signs Vital Sign Reading Time Taken Comments Blood Pressure 173/95 07/21/2021 5:21 PM CDT Pulse 77 07/21/2021 5:21 PM CDT Temperature 36.4 ??C (97.5 ??F) 07/21/2021 3:17 PM CD T Respiratory Rate 20 07/21/2021 5:21 PM CDT Oxygen Saturation 100% 07/21/2021 5:21 PM CDT Inhaled Oxygen Concentration - - Weight 113.4 kg (250 lb) 07/21/2021 3:17 PM CDT Height 170.2 cm (5' 7 ) 07/21/2021 3:17 PM CDT Body Mass Index 39.16 07/21/2021 3:17 PM CDT documented in this encounter Functional Status * RETIRED Are you deaf or do you have serious difficulty hearing Answer Date of Assessment Author Status No 05/15/2019 12:02 PM SERVICE ENGINE REPAIRER 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 Answer Date of Assessment Author Status No 05/15/2019 12:02 PM SERVICE ENGINE REPAIRER Acti ve * Do you have [...] this encounter Discharge Instructions * Discharge Instructions* DAVID Jalloh - 07/21/2021 5:02 PM CDT Refer to patient instruction sheets that have attached for additional information on urinary tract infections. Take the antibiotics that I prescribed only as directed. Finish full course of treatment even if you notice improvement. Drink plenty of water to keep yourself hydrated. This will help flush the urinary system. Follow-up with primary care provider and urologist as needed. Return for any new or worsening symptoms including fevers, chills, pain over your kidneys, abdominal pain, nausea, or vomiting. Thank you for giving us the opportunity to care for you today. If at any point you are becoming more ill, your condition worsens or you have concerns, please call your doctor or return for re-evaluation. You are always welcome back. Our practice is committed to providing you the exceptional care. We want to hear from you! Please fill out the survey you get from us. Your feedback is anonymous & helps us improve the patient experience for you and others in the community we serve. - Marcus Fox PA-C - Emergency Medicine Provider * Attachments The following attachments cannot be sent through Care Everywhere. * Urinary Tract Infection, Adult ED (Kiswahili) documented in this encounter Medications at Time of Discharge carBAMazepine XR 200 MG 12 hr tablet Take 1,000 mg by mouth nightly at bedtime. 04/29/2019 cyclobenzaprine 10 MG tablet Take 10 mg by mouth 2 (two) times daily as needed for Muscle Spasms. 09/01/2018 esomeprazole 40 MG capsule Take 40 mg by mouth daily. 04/27/2019 methenamine 1 g tablet Take 1 g by mouth 2 (two) times daily with meals. psyllium 51.7 % packet Take 1 packet by mouth daily. tadalafil 5 MG tablet Take 5 mg by mouth as needed for Erectile Dysfunction. 03/23/2019 levoFLOXacin (LEVAQUIN) 750 MG tablet Take 1 tablet (750 mg total) by mouth daily for 5 days. 5 tablet 07/21/2021 07/26/2021 documented as of this encounter ED Notes * DAVID Jalloh - 07/21/2021 3:27 PM CDT [place], [place] HISTORICAL INFORMATION Primary Care Doctor: BROOKE MO MD Patient information was obtained primarily from the patient, nursing notes. History/Exam limitations: None Provider at Bedside Date/Time Event User Comments 07/21/21 1527 Provider at Bedside Assessing Patient FOXMARCUS CHIEF COMPLAINT Urinary Symptoms Chief Complaint Patient presents with ??? Urinary Symptoms HPI Angus Jain is a 51-year-old male with history of recurrent urinary tract infections and BPH presents for evaluation of urinary frequency, decreased urine output, dysuria and blood in his urine. 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 Notes that several times in the past he was admitted due to UTI with fever. When he catches symptoms before a fever develops, he does well with IV fluids and IV Levaquin with PO Rx upon discharge. Current symptoms feel similar to prior UTIs. Dr. Jhonathan Helm is his urologist. PAST MEDICAL HISTORY Past Medical History: Diagnosis Date ??? Bladder disorder ??? Epididymitis ??? History of blood transfusion 1986 ??? Neck fracture (CMS/HCC) ??? Skull fracture (CMS/[facility]) SURGICAL HISTORY Past Surgical History: Procedure Laterality Date ??? CLOSED RX DIST FIBULA FX ??? EAR SURGERY EXTERNAL CURRENT MEDICATIONS Current Facility-Administered Medications: ??? levoFLOXacin (LEVAQUIN) IVPB 500 mg, 500 mg, Intravenous, Once, DAVID Jalloh, Last Rate: 100mL/hr at 07/21/21 1618, 500 mg at 07/21/21 1618 ??? sodium chloride 0.9% bolus infusion SOLN 1,000 mL, 1,000 mL, Intravenous, Once, DAVID Jalloh, 1,000 mL at 07/21/21 1616 Current Outpatient Medications: ??? carBAMazepine XR 200 MG 12 hr tablet, Take 1,000 mg by mouth nightly at bedtime. , Disp: , Rfl: ??? esomeprazole 40 MG capsule, Take 40 mg by mouth daily., Disp: , Rfl: ??? levoFLOXacin (LEVAQUIN) 750 MG tablet, Take 1 tablet (750 mg total) by mouth daily for 5 days.,Disp: 5 tablet, Rfl: 0 ??? methenamine 1 g tablet, Take 1 g by mouth 2 (two) times daily with meals., Disp: , Rfl: ??? psyllium 51.7 % packet, Take 1 packet by mouth daily., Disp: , Rfl: ??? cyclobenzaprine 10 MG tablet, Take 10 mg by mouth 2 (two) times daily as needed for Muscle Spasms. , Disp: , Rfl: ??? tadalafil 5 MG tablet, Take 5 mg by mouth as needed for Erectile Dysfunction. , Disp: , Rfl: ALLERGIES Allergies Allergen Reactions ??? Sulfa Antibiotics Unknown FAMILY HISTORY No family history on file. SOCIAL HISTORY Social History Socioeconomic History ??? Marital status: Single Spouse name: Not on file ??? Number of children: Not on file ??? Years of education: Not on file ??? Highest education level: Not on file Occupational History ??? Not on file Tobacco Use ??? Smoking status: Former Smoker Types: Cigarettes Quit date: 06/11/2018 Years since quittin.1 ??? Smokeless tobacco: Never Used Substance and Sexual Activity ??? Alcohol use: Yes Comment: socially ??? Drug use: Never ??? Sexual activity: Not on file Other Topics Concern ??? Not on file Social History Narrative ??? Not on file Social Determinants of Health Financial Resource Strain: Not on file Food Insecurity: Not on file Transportation Needs: Not on file Physical Activity: Not on file Stress: Not on file Social Connections: Not on file Intimate Partner Violence: Not on file REVIEW OF SYSTEMS Constitutional: Denies fever of chills. Respiratory: Denies cough or shortness of breath. Cardiovascular: Denies chest pain GI: Denies abdominal pain, nausea, vomiting, or diarrhea. : Reports urinary frequency, decreased urine output, dysuria, and hematuria. Denies flank pain. Musculoskeletal: Denies back pain or flank pain. See HPI for further details. All systems negative except as marked. Physical Exam VITAL SIGNS: Filed Vitals: 07/21/21 1517 BP: 119/66 Pulse: 99 Resp: 18 Temp: 97.5 ??F (36.4 ??C) TempSrc: Temporal SpO2: 99% Weight: 113.4 kg (250 lb) Height: 5' 7 (1.702 m) Constitutional: Well developed, No acute distress, Non-toxic appearance. Integument: Warm, Dry, No erythema, No rash. HEENT: Normocephalic, Atraumatic, Conjunctiva normal Neck- Normal range of motion, Supple Back- Normal range of motion, No gross abnormality Respiratory: Normal breath sounds, No respiratory distress. Cardiovascular: Normal heart rate, Normal rhythm GI: Bowel sounds normal, Soft, No tenderness : Bilateral flank non-tender to percussion. Musculoskeletal: Full ROM, no deformities noted Neurologic: Alert & oriented x 3, No focal deficits noted. Psychiatric: Affect normal, Judgment normal, Mood normal. EKG (interpreted by ED provider) No results found for this visit on 07/21/21. LABORATORY Labs Reviewed URINALYSIS WI REFLEX TO CULTURE - Abnormal; Notable for the following components: Result Value LEUKOCYTE ESTERASE TRACE (*) PROTEIN (U) 3+ (*) BLOOD 3+ (*) All other components within normal limits CBC W/DIFF AUTOMATED - Abnormal; Notable for the following components: RBC 4.47 (*) HGB 12.7 (*) HCT 39.4 (*) RDW 12.2 (*) NEUTROPHILS 73.2 (*) ABS. NEUTROPHILS 7.01 (*) IMMATURE GRANS 0.9 (*) All other components within normal limits COMPREHENSIVE METABOLIC PANEL - Abnormal; Notable for the following components: GLUCOSE 109 (*) SODIUM 128 (*) CALCIUM 8.0 (*) All other components within normal limits CULTURE URINE RADIOLOGY No orders to display PROCEDURES Procedures MDM Well-appearing 51-year-old male with history of recurrent urinary tract infections and BPH presentsfor evaluation of frequency, decreased urine output, dysuria and blood in his urine. UA consistent with urinary tract infection. No leukocytosis, renal function intact. We will plan for 5-day course of Levaquin as an outpatient and follow-up with primary care provider and urologist as needed. Repeat evaluation without signs of acute abdomen, peritonitis for signs and symptoms concerning for pyelonephritis or obstructive uropathy. I have discussed today's findings with the patient and provided information regarding the likely diagnosis. The patient has been given information regarding their treatment, follow up and concerning symptoms for which they should seek urgent or emergent attention. I have expressed the the importance of seeking attention should there be any new, or worsening symptoms or persistence of their condition. The patient is stable at discharge and has verbalized understanding of these instructions. Impression/Disposition SNOMED CT(R) 1. UTI (urinary tract infection) URINARY TRACT INFECTIOUS DISEASE Disposition: Discharge Medications sodium chloride 0.9% bolus infusion SOLN 1,000 mL (1,000 mLs Intravenous New Bag 07/21/21 1616) levoFLOXacin (LEVAQUIN) IVPB 500 mg (500 mg Intravenous New Bag 07/21/21 1618) Current Discharge Medication List START taking these medications Details levoFLOXacin (LEVAQUIN) 750 MG tablet Take 1 tablet (750 mg total) by mouth daily for 5 days. Qty: 5 tablet, Refills: 0 Class: Eprescribe Pharmacy: [facility] #[id number] [place] [id number] (Ph #: [phone]) DAVID JALLOH PA 07/21/21 170 Cosigned by Beau Reardon MD at 07/21/2021 5:29 PM CDT * Ariana Salguero RN - 07/21/2021 3:14 PM CDT Pt arrives to ED from home with . C/o blood in urine, pain while urinating, and urinary urgency. Denies any fever and chills. Pt reports recurrent urinary tract infections. documented in this encounter Plan of Treatment Not on file documented as of this encounter Goals Goal Patient Goal Type Associated Problems Recent Progress Patient-Stated? Author Return home General No Zayra Kidd, MATERIAL PLANNER Note: Plan to return home with significant other. No DME or home health needed at this time. documented as of this encounter Procedures Procedure Name Priority Date/Time Associated Diagnosis Comments COMPREHENSIVE METABOLIC PANEL STAT 07/21/2021 4:00 PM CDT CBC W/DIFF AUTOMATED STAT 07/21/2021 4:00 PM CDT URINALYSIS WI REFLEX TO CULTURE STAT 07/21/2021 3:43 PM CDT URINE BACTERIA CULTURE Routine 3:36 PM CDT documented in this encounter Results * (ABNORMAL) COMPREHENSIVE METABOLIC PANEL (07/21/2021 4:00 PM CDT) GLUCOSE 109(H) 70 - 99 MG/DL 07/21/2021 4:40 PM CDT [facility] BUN 17 7 - 18 MG/DL 07/21/2021 4:40 PM CDT [facility] CREATININE S/P/B 0.90 0.7 - 1.3 MG/DL 07/21/2021 4:40 PM CDT [facility] SODIUM S/P/B 128(L) 136 - 145 MMOL/L 07/21/2021 4:40 PM T [facility] POTASSIUM S/P/B 4.0 3.5 - 5.1 MMOL/L 07/21/2021 4:40 PM T [facility] CHLORIDE S/P/B 104 100 - 108 MMOL/L 07/21/2021 4:40 PM T [facility] CO2 28.3 21 - 32 MMOL/L 07/21/2021 4:40 PM T [facility] CALCIUM S/P/B 8.0(L) 8.5 - 10.1 MG/DL 07/21/2021 4:40 PM T [facility] BILIRUBIN TOTAL S/P/B 0.2 0.2 - 1.2 MG/DL 07/21/2021 4:40 PM T [facility] TOTAL PROTEIN S/P/B 6.9 6.4 - 8.2 G/DL 07/21/2021 4:40 PM T [facility] ALBUMIN S/P/B 3.6 3.4 - 5.0 G/DL 07/21/2021 4:40 PM CDT [facility] AST 24 15 - 37 U/L 07/21/2021 4:40 PM CDT [facility] ALT 32 16 - 60 U/L 07/21/2021 4:40 PM CDT [facility] ALKALINE PHOSPHATASE S/P/B 118 50 - 136 U/L 07/21/2021 4:40 PM CDT [facility] ANION GAP NOT CALCULATED 5 - 15 MMOL/L 07/21/2021 4:40 PM CDT [facility] BUN CREATININE RATIO 18.9 6 - 26 07/21/2021 4:40 PM T [facility] A/G RATIO 1.1 1.0 - 2.0 RATIO 07/21/2021 4:40 PM T [facility] EGFR NON-AFR. AMER. >90 >90 ML/MIN/1. 73 M2 07/21/2021 4:40 PM T [facility] EGFR AFR. AMER. >90 >90 ML/MIN/1. 73 M2 07/21/2021 4:40 PM T [facility] Comment: NOTE: eGFR is not calculated for patients <18 years of age. This is an estimated GFR (CKD EPI) and should not be used for calculating drug doses. 07/21/2021 4:00 PM CDT us Marcus HERNANDEZ LABORATORY Final Result [facility] [address] [facility] [place] [address], [place] [phone] * (ABNORMAL) CBC W/DIFF AUTOMATED (07/21/2021 4:00 PM CDT) WBC 9.6 4.4 - 11.0 x10'3/uL 07/21/2021 4:16 PM CDT [facility] RBC 4.47(L) 4.50 - 5.90 x10'6/uL 07/21/2021 4:16 PM T [facility] HGB 12.7(L) 14.0 - 17.5 G/DL 07/21/2021 4:16 PM T [facility] HCT 39.4(L) 41.5 - 50.4 % 07/21/2021 4:16 PM T [facility] MCV 88.1 80.0 - 96.0 FL 07/21/2021 4:16 PM T [facility] MCH 28.4 26.5 - 31.4 PG 07/21/2021 4:16 PM T [facility] MCHC 32.2 31.9 - 34.8 G/DL 07/21/2021 4:16 PM T [facility] RDW 12.2(L) 12.3 - 14.3 % 07/21/2021 4:16 PM T [facility] PLT 203 151 - 353 x10'3/uL 07/21/2021 4:16 PM T [facility] MPV 9.8 9.7 - 11.9 FL 07/21/2021 4:16 PM T [facility] RBC MORPHOLOGY NORMAL 07/21/2021 4:16 PM T [facility] PLT MORPH. NORMAL 07/21/2021 4:16 PM T [facility] WBC MORPHOLOGY NORMAL 07/21/2021 4:16 PM T [facility] LYMPHOCYTES % 16.8 15.8 - 45.0 % 07/21/2021 4:16 PM CDT [facility] NEUTROPHILS % 73.2(H) 42.1 - 71.9 % 07/21/2021 4:16 PM CDT [facility] MONOCYTES % 8.0 5.7 - 12.5 % 07/21/2021 4:16 PM CDT [facility] EOSINOPHILS 0.8 0.0 - 5.6 % 07/21/2021 4:16 PM CDT [facility] BASOPHILS 0.3 0.0 - 1.3 % 07/21/2021 4:16 PM CDT [facility] ABS. NEUTROPHILS 7.01(H) 1.40 - 6.00 x10'3/uL 07/21/2021 4:16 PM CDT [facility] IMMATURE GRANS % 0.9(H) 0.0 - 0.5 % 07/21/2021 4:16 PM CDT [facility] ABS. LYMPHOCYTES 1.61 0.80 - 4.70 x10'3/uL 07/21/2021 4:16 PM CDT [facility] 07/21/2021 4:00 PM CDT us Marcus HERNANDEZ LABORAT[facility] Final Result Performing Organization Address City/State/[facility] Co de Phone Number [facility] [address] [place] [address], [place] [phone] * (ABNORMAL) URINALYSIS WI REFLEX TO CULTURE (07/21/2021 3:43 PM CDT) COLOR (U) YELLOW 07/21/2021 3:59 PM CDT [facility] TRANSPARENCY CLOUDY 07/21/2021 3:59 PM CDT [facility] SPECIFIC GRAVITY (U) 1.025 1.000 - 1.030 07/21/2021 3:59 PM CDT [facility] U PH 6.5 5.0 - 9.0 07/21/2021 3:59 PM CDT [facility] LEUKOCYTES (U) TRACE(A) NEGATIVE 07/21/2021 3:59 PM CDT [facility] NITRITES NEGATIVE NEGATIVE 07/21/2021 3:59 PM CDT [facility] PROTEIN (U) 3+(A) NEGATIVE 07/21/2021 3:59 PM CDT [facility] URINE GLUCOSE NEGATIVE NEGATIVE 07/21/2021 3:59 PM CDT [facility] KETONES MG/DL (U) NEGATIVE NEGATIVE 07/21/2021 3:59 PM CDT [facility] BILIRUBIN (U) NEGATIVE NEGATIVE 07/21/2021 3:59 PM CDT [facility] BLOOD (U) 3+(A) NEGATIVE 07/21/2021 3:59 PM CDT [facility] WBC/HPF 5-10 0 - 5 /HPF 07/21/2021 3:59 PM CDT [facility] RBC/HPF 50-100 0 - 5 /HPF 07/21/2021 3:59 PM CDT [facility] EPI/HPF FEW /HPF 07/21/2021 3:59 PM CDT [facility] CULTURE & SENSITIVITY INDICATED? SPECIMEN SETUP FOR CULTURE 07/21/2021 3:59 PM CDT [facility] BACTERIA (U) FEW /HPF 07/21/2021 3:59 PM CDT [facility] URINE SPECIMEN OBTAINED BY CLEAN CATCH PROCEDURE / Unknown 07/21/2021 3:43 PM CDT us Marcus HERNANDEZ URINE ORDERABLES Final Result [facility] [address] [place] [address], [place] [phone] * CULTURE URINE (07/21/2021 3:36 PM CDT) SPEC DESCRIPTION URINE VOIDED 07/21/2021 4:02 PM CDT [facility] SPECIAL REQUESTS NO SPECIAL REQUEST 07/21/2021 4:02 PM CDT [facility] CULTURE RESULT NO GROWTH 2 DAYS 07/24/2021 7:31 AM CDT [facility] URINE SPECIMEN FROM URETHRA / Unknown 07/21/2021 3:36 PM CDT 07/21/2021 4:00 PM CDT us Marcus HERNANDEZ MICROBIOLOGY - GENERAL ORDERABLE S Final Result Performing Organization Address City/State/[facility] Co de Phone Number [facility] [address] [place] [address], [place] [phone] [facility] [address] [place] [address], [place] [phone] documented in this encounter Visit Diagnoses Diagnosis UTI (urinary tract infection)- Primary Urinary tract infection, site not specified documented in this encounter Administered Medications Inactive Administered Medications - up to 3 most recent administrations Medication Order MAR Action Action Date Dose Rate Site levoFLOXacin (LEVAQUIN) IVPB 500 mg 500 mg, Intravenous, at 100 mL/hr, Once, 1 dose, On 07/21/21 at 1600 New Bag 07/21/2021 4:18 PM CDT 500 mg 100 mL/hr sodium chloride 0.9% bolus infusion SOLN 1,000 mL 1,000 mL, Intravenous, Administer over 60 Minutes, Once, 1 dose, On 07/21/21 at 1600 New Bag 07/21/2021 4:16 PM CDT 1,000 mLs documented in this encounter Active and Recently Administered Medications Times are shown in CDT. Scheduled Medication Order 07/19/2021 07/20/2021 07/21/2021 levoFLOXacin (LEVAQUIN) IVPB 500 mg (COMPLETED) 500 mg, Intravenous, at 100 mL/hr, Once, 1 dose, On 07/21/21 at 1600 1618 (New Bag - Prov ider: Ariana Salguero RN)1720 (Infusion Stop Time - Provider: Ariana Salguero RN) sodium chloride 0.9% bolus infusion SOLN 1,000 mL (COMPLETED) 1,000 mL, Intravenous, Administer over 60 Minutes, Once, 1 dose, On 07/21/21 at 1600 1616 (New Bag - Prov ider: Ariana Salguero RN)1720 (Infusion Stop Time - Provider: Ariana Salguero RN) documented in this encounter Care Teams Instrument Adjuster Relationship Specialty Start Date End Date Brooke Mo MD [employer] [address] [address] PCP - General INTERNAL MEDICINE 05/09/19 documented as of this encounter
--- OUTSIDE RECORDS SUMMARY | 2024-03-26 17:00 | XMS_ITS | Encounter Summary ---
Author Organization [facility] Address [address] [place] [address]. 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 Role Phone Jose Mo MD Primary Care Provider [phone] Saroj Griffin MD Unavailable [phone] Ania Topete NP Unavailable [phone] Reason for Referral * Imaging (Urgent) - New Request Specialty Diagnoses / Procedures Referred By Barbara t Referred To Contact RADIOLOGY Procedures CT ABD+PEL KIDNEY STONE Robin De La Cruz DO [address] [place] [id number] Phone: tel: fax: Referral ID Status Reason Start Date Expiration Date V isits Requested Visits Authorized [id number] New Request 11/20/2023 11/19/2024 1 1 Reason for Visit * Reason Comments Flank Pain Urinary Symptoms Encounter Details Date Type Department Care Team (Late st Contact Info) Description 11/20/2023 1:15 PM CDT - 11/20/2023 4:32 PM CDT Emergency [facility] Emergency Room [id number] [place] [id number] Robin De La Cruz DO [address] [place] [id number] Flank Pain; Urinary Symptoms Discharge Disposition: Home or Self Care (Routine Discharge) Social History Tobacco Use Types Packs/Day Years Used Date Smoking Tobacco: Former Cigarettes Q uit: 06/11/2018 Smokeless Tobacco: Never Tobacco Cessation:Counseling Given: Not Answered Alcohol Use Standard Drinks/Week Comments Not Currently 0 (1 standard drink = 0.6 oz pur e alcohol) socially Sex and Gender Information Value Date Recorded Sex Assigned at Male 05/10/2019 1:27 AM FINANCIAL SERVICES OFFICER Legal Sex Male 7:38 PM CDT Gender Identity Male 05/10/2019 1:27 AM FINANCIAL SERVICES OFFICER Sexual Orientation Not on file documented as of this encounter Last Filed Vital Signs Vital Sign Reading Time Taken Comments Blood Pressure 146/65 11/20/2023 4:15 PM CDT Pulse 70 11/20/2023 4:15 PM CDT Temperature 36.3 ??C (97.4 ??F) 11/20/2023 4:15 PM CD T Respiratory Rate 18 11/20/2023 4:15 PM CDT Oxygen Saturation 98% 11/20/2023 4:15 PM CDT Inhaled Oxygen Concentration - - Weight 113.4 kg (250 lb) 11/20/2023 1:19 PM CDT Height 170.2 cm (5' 7 ) 11/20/2023 1:19 PM CDT Body Mass Index 39.16 11/20/2023 1:19 PM CDT documented in this encounter Functional Status * RETIRED Are you deaf or do you have serious difficulty hearing Answer Date of Assessment Author Status No 05/15/2019 12:02 PM FINANCIAL SERVICES OFFICER 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 Answer Date of Assessment Author Status No 05/15/2019 12:02 PM FINANCIAL SERVICES OFFICER Acti ve * Do you have serious [...] this encounter Discharge Instructions * Discharge Instructions* Robin De La Cruz DO - 11/20/2023 3:25 PM CDT You were evaluated in the ED today due to concern for dysuria. Your workup did show concerns for ascending urinary tract infection versus recently passed kidney stone. Please complete the course of antibiotics as prescribed. If you begin to experience any new or worsening symptoms such as recurrence of dysuria, fevers, chills, altered mentation please return to the ED. Please continue to drink plenty of fluids as fluids with help with hydration. Please follow-up with your urologist at your earliest convenience. documented in this encounter Medications at Time of Discharge carBAMazepine XR 200 MG 12 hr tablet Take 1,000 mg by mouth nightly at bedtime. 04/29/2019 ciprofloxacin (CIPRO) 500 MG tablet Take 1 tablet (500 mg total) by mouth 2 (two) times daily. Take 1 pill twice a day for 5 days PRN for UTI. cyclobenzaprine 10 MG tablet Take 10 mg by mouth 2 (two) times daily as needed for Muscle Spasms. 09/01/2018 esomeprazole 40 MG capsule Take 40 mg by mouth daily. 04/27/2019 fosfomycin (MONUROL) 3 g Pack Take 3 g by mouth once. furosemide (LASIX) 20 MG tablet Take 0.5 tablets (10 mg total) by mouth daily. HYDROcodone-acet aminophen (NORCO) 5-325 MG tabletIndication s:Acute Pain < 3 Day Supply Take 1 [...] mouth as needed for Erectile Dysfunction. 03/23/2019 cefpodoxime (VANTIN) 200 MG tablet Take 1 tablet (200 mg total) by mouth 2 (two) times daily for 9 days. 18 tablet 11/20/2023 11/29/2023 documented as of this encounter ED Notes * Cathy Harvey RN - 11/20/2023 1:30 PM CDT Patient ambulatory to ED c/o dysuria, urinary frequency, cloudy urine, and right flank pain rated 3/10, describes as aching. Recent UTI in late October. Patient states concern for bladder infection. He denies fever, chills, nausea, vomiting, abdominal pain. * Robin De La Cruz DO - 11/20/2023 1:17 PM CDT EMERGENCY DEPARTMENT ENCOUNTER Pt Name: Angus Jain Birthdate 1970 Date of evaluation: 11/20/2023 ED Provider: Robin De La Cruz DO CHIEF COMPLAINT Flank Pain and Urinary Symptoms HISTORY OF PRESENT ILLNESS (Location/Symptom, Timing/Onset, Context/Setting, Quality, Duration, Modifying Factors, Severity) Note limiting factors. I wore appropriate PPE for the entirety of this encounter. Urinary Symptoms Angus Jain is a 53-year-old with a past medical hx of recent bladder infection, skull fracture, epididymitis, seizures, cancer, cervical fracture presents to the emergency department with chief complaint of dysuria and right- sided flank pain. Patient states symptoms started today. Patient states that he had increased frequency of urination yesterday. He also noticed some cloudy urine starting yesterday. He denies any fevers or chills, nausea vomiting or diarrhea. He denies any blood withhis stool or urine. He denies any pain or discomfort in his testes. He denies any chest pain or shortness of breath. He denies any penile discharge patient does report normal appetite. Nursing Notes were reviewed. Limitations to history: Outside historians: REVIEW OF SYSTEMS Review of Systems Pertinent positives and negatives as per HPI. PAST MEDICAL HISTORY Past Medical History: Diagnosis Date Bladder disorder overactive bladder Cancer ([facility]) basal cell carcinoma Epididymitis GERD (gastroesophageal reflux disease) History of blood transfusion 1987 Neck fracture ([facility]) Quadriparesis ([facility]) Seizures ([facility]) 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 CIPROFLOXACIN (CIPRO) 500 MG TABLET Take 1 tablet (500 mg total) by mouth 2 (two) times daily. Take1 pill twice a day for 5 days PRN for UTI. CYCLOBENZAPRINE 10 MG TABLET Take 10 mg by mouth 2 (two) times daily as needed for Muscle Spasms. ESOMEPRAZOLE 40 MG CAPSULE Take 40 mg by mouth daily. FOSFOMYCIN (MONUROL) 3 G PACK Take 3 g by mouth once. FUROSEMIDE (LASIX) 20 MG TABLET Take 0.5 tablets (10 mg total) by mouth daily. HYDROCODONE-ACETAMINOPHEN (NORCO) 5-325 MG TABLET Take 1 tablet by mouth every 6 (six) hours as needed for Pain. Indications: Acute Pain < 3 Day Supply METHENAMINE 1 G TABLET Take 1 g by mouth 2 (two) times daily with meals. MIRABEGRON ER (MYRBETRIQ) 25 MG 24 HR TABLET Take 1 tablet (25 mg total) by mouth daily. ONDANSETRON (ZOFRAN) 4 MG TABLET Take 1 tablet (4 mg total) by mouth every 8 (eight) hours as needed for Nausea. PSYLLIUM 51.7 % PACKET Take 1 packet by mouth daily. TADALAFIL 5 MG TABLET Take 5 mg by mouth as needed for Erectile Dysfunction. ALLERGIES Review of patient's allergies indicates: Hydromorphone and Sulfa antibiotics FAMILY HISTORY No family history on file. SOCIAL HISTORY Social History Socioeconomic History Marital status: Single Tobacco Use Smoking status: Former Current packs/day: 0.00 Types: Cigarettes Quit date: 06/11/2018 Years since quittin.4 Smokeless tobacco: Never Vaping Use Vaping status: Never Used Substance and Sexual Activity Alcohol use: Not Currently Comment: socially Drug use: Never VITAL SIGNS Patient Vitals for the past 24 hrs: BP Temp Temp src Pulse Resp SpO2 Height Weight 11/20/23 1500 104/57 -- -- 66 18 95 % -- -- 11/20/23 1319 (!) 157/86 97.3 ??F (36.3 ??C) Temporal 88 18 96 % 1.702 m (5' 7 ) 113.4 kg (250 lb) PHYSICAL EXAM Physical Exam Constitutional: General: He is not in acute distress. Appearance: Normal appearance. He is obese. He is not ill-appearing, toxic- appearing or diaphoretic. HENT: Head: Normocephalic and atraumatic. Right Ear: External ear normal. Left Ear: External ear normal. Nose: Nose normal. Mouth/Throat: Mouth: Mucous membranes are moist. Pharynx: Oropharynx is clear. Eyes: General: No scleral icterus. Right eye: No discharge. Left eye: No discharge. Conjunctiva/sclera: Conjunctivae normal. Cardiovascular: Rate and Rhythm: Normal rate and regular rhythm. Pulses: Radial pulses are 2+ on the right side and 2+ on the left side. Heart sounds: Normal heart sounds. No murmur heard. No gallop. Pulmonary: Effort: Pulmonary effort is normal. Breath sounds: Normal breath sounds. Abdominal: General: Bowel sounds are normal. Tenderness: There is no abdominal tenderness. There is right CVA tenderness. There is no left CVA tenderness. Musculoskeletal: Right lower leg: No edema. Left lower leg: No edema. Skin: General: Skin is warm and dry. Capillary Refill: Capillary refill takes less than 2 seconds. Neurological: Mental Status: He is alert and oriented to person, place, and time. Comments: Purposeful movement of all 4 extremities DIAGNOSTIC RESULTS Procedures/EKG: No results found for this visit on 11/20/23. RADIOLOGY (Per Emergency Physician): Interpretation per the Radiologist below, if available at the time of this note: CT ABD+PEL KIDNEY STONE Final Result by User, [id number] (11/19 760) EXAMINATION: CT Abdomen and Pelvis without contrast EXAM DATE/TIME: 11/20/2023 1:53 PM REASON FOR EXAM: Right-sided flank pain with CVA tenderness on the right COMPARISON: 07/27/2023 TECHNIQUE: Axial imaging of the abdomen and pelvis was obtained without intravenous contrast. A dose lowering technique was used for this procedure, which may include, but is not limited to, dose reduction technique, automated exposure control, iterative reconstruction, ALARA (As Low As Reasonably Achievable), or Image Gently techniques. FINDINGS: Abdomen: Adrenal glands are unremarkable. Kidneys demonstrate no suspicious lesion or hydronephrosis. No renal calculi. Mild dilatation of the mid and distal right ureter with periureteral fatty infiltration. May be due to ascending urinary tract infection versus recently passed calculus. Stomach and duodenum are unremarkable. Spleen is unremarkable. Small hiatal hernia. Gallbladder partially filled and grossly unremarkable. Pancreas grossly unremarkable. Hepatic parenchyma are within normal limits with no evidence of intrahepatic biliary dilatation or mass within the limitations of a noncontrast study. No mesenteric lymphadenopathy or evidence of small bowel obstruction. No free fluid or free air. No evidence of retroperitoneal lymphadenopathy. No evidence of an abdominal aortic aneurysm. Scattered fecal material and gas throughout the colon without evidence of mass or dilatation. Appendix not inflamed. Pelvis: No urinary bladder calculi. Mild mucosal thickening of the urinary bladder wall. Please assess for cystitis. No adjacent fatty infiltration. Normal-sized prostate gland. On bone windows, no evidence of suspicious skeletal lesion or acute compression fracture deformity. Right proximal femoral hardware noted. Limited evaluation of the lower thorax demonstrates no acute abnormality.. Stable 7 mm nodule in lateral left lower lobe on image 25 of series 3.. Stable 3 mm nodule in lateral right lower lobe on image 20. Stable punctate nodule within right middle lobe on image 18.. These nodules are stable since 05/11/2019 exam. Considered benign. No further workup. IMPRESSION: 1. Possible mild ascending right-sided urinary tract infection versus recently passed calculus. No hydronephrosis. No intrarenal calculi. No urinary bladder calculi. 2. Mild mucosal thickening of the urinary bladder may be due to mild cystitis. Please correlate with urinalysis. Ordered By: ROBIN DE LA CRUZ Interpreted By: Antonio Oliveira, 11/20/2023 2:22 PM ED BEDSIDE ULTRASOUND: Performed by ED Physician - none LABS: Labs Reviewed URINALYSIS, AUTO, COMPLETE - Abnormal; Notable for the following components: Result Value LEUKOCYTES (U) 2+ (*) All other components within normal limits CBC W/DIFF AUTOMATED - Abnormal; Notable for the following components: RBC 4.09 (*) HGB 11.9 (*) HCT 36.1 (*) MPV 9.0 (*) LYMPHOCYTES % 14.5 (*) NEUTROPHILS % 77.9 (*) MONOCYTES % 5.3 (*) ABS. NEUTROPHILS 8.30 (*) IMMATURE GRANS % 0.7 (*) All other components within normal limits COMPREHENSIVE METABOLIC PANEL - Abnormal; Notable for the following components: GLUCOSE 101 (*) ALKALINE PHOSPHATASE S/P/B 153 (*) All other components within normal limits LIPASE URINE BACTERIA CULTURE All other labs were within normal range or not returned as of this dictation. EMERGENCY DEPARTMENT COURSE and DIFFERENTIAL DIAGNOSIS/MDM: Angus Jain 53-year-old male presents with the following Chief Compliant: Right-sided flank pain and dysuria Patient is hemodynamically stable however his blood pressure was elevated 157/86 Physical exam as noted above My DDX includes but not limited to pyelonephritis, nephrolithiasis, acute cystitis. Per chart review patient was evaluated in the ED June 2022 with concerns for urinary frequency andurgency. Patient was diagnosed with a UTI patient was given a prescription for antibiotics and discharged home. CMP did not reveal any severe electrolyte renal or liver dysfunction. CBC did not show concerns forany leukocytosis H&H was stable. Lipase is unremarkable. UA did show concerns for 2+ leukocytesas well as 10-[address] abdomen pelvis did show concerns for recently passed kidney versus ascending UTI. Due to concern for these findings on the CAT scan and UA patient was given 1 dose of Rocephin in the ED. Patient also was given a prescription for cefpodoxime mean at time of discharge. I did consider other antibiotics however patient did report that he recently completed ciprofloxacin 4 days prior. Patient does follow with Dr. Griffin with urology and was scheduled for more an appointment but canceled due to improvement of symptoms. Patient stable at time of discharge. All questions, concerns and strict return precautions addressed with the patient prior to being discharged. CRITICAL CARE TIME CONSULTS: None PROCEDURES: Unless otherwise noted below, none Procedures FINAL IMPRESSION SNOMED CT(R) 1. Acute cystitis without hematuria ACUTE CYSTITIS DISPOSITION Discharge PATIENT REFERRED TO: Jose Mo MD [employer] [address] [place] [id number] [facility] Emergency Room [address] [facility] [address] [place] [id number] [facility] [id number] DISCHARGE MEDICATIONS: New Prescriptions CEFPODOXIME (VANTIN) 200 MG TABLET Take 1 tablet (200 mg total) by mouth 2 (two) times daily for 9 days. (Comment: Please note this report has been produced using speech recognition software and may contain errors related to that system including errors in grammar, punctuation, and spelling, as well as words and phrases that may be inappropriate. If there are any questions or concerns please feel freeto contact the dictating provider for clarification.) Robin De La Cruz DO (electronically signed) Emergency Medicine Provider Robin De La Cruz DO 11/20/23 1611 documented in this encounter Plan of Treatment Not on file documented as of this encounter Goals Goal Patient Goal Type Associated Problems Recent Progress Patient-Stated? Author Return home General No Zayra Kidd, MEDICAID ANALYST Note: Plan to return home with significant other. No DME or home health needed at this time. documented as of this encounter Procedures Procedure Name Priority Date/Time Associated Diagnosis Comments CT ABD+PEL KIDNEY STONE STAT 11/20/2023 2:04 PM CDT COMPREHENSIVE METABOLIC PANEL STAT 11/20/2023 1:35 PM CDT CBC W/DIFF AUTOMATED STAT 11/20/2023 1:35 PM CDT LIPASE STAT 11/20/2023 1:35 PM CDT URINE BACTERIA CULTURE Routine 1:12 PM CDT URINALYSIS, AUTO, COMPLETE STAT 11/20/2023 1:12 PM CDT documented in this encounter Results * CT ABD+PEL KIDNEY STONE (11/20/2023 2:04 PM CDT) Anatomical Region Laterality Modality Abdomen Computed Tomogra phy 11/20/2023 2:22 PM CDT Impressions 11/20/2023 2:47 PM CDT IMPRESSION: 1. ?? Possible mild ascending right-sided urinary tract infection versus recently passed calculus. No hydronephrosis. No intrarenal calculi. No urinary bladder calculi. 2. ??Mild mucosal thickening of the urinary bladder may be due to mild cystitis. Please correlate with urinalysis. Ordered By: ROBIN DE LA CRUZ Interpreted By: Antonio Oliveira, 11/20/2023 2:22 PM Narrative 11/20/2023 2:47 PM CDT EXAMINATION: CT Abdomen and Pelvis without contrast EXAM DATE/TIME: 11/20/2023 1:53 PM REASON FOR EXAM: ??Right-sided flank pain with CVA tenderness on the right ? COMPARISON: 07/27/2023 TECHNIQUE: Axial imaging of the abdomen and pelvis was obtained without intravenous contrast. A dose lowering technique was used for this procedure, which may include, but is not limited to, dose reduction technique, automated exposure control, iterative reconstruction, ALARA (As Low As Reasonably Achievable), or Image Gently techniques. FINDINGS: Abdomen: Adrenal glands are unremarkable. Kidneys demonstrate no suspicious lesion or hydronephrosis. No renal calculi. Mild dilatation of the mid and distal right ureter with periureteral fatty infiltration. May be due to ascending urinary tract infection versus recently passed calculus. Stomach and duodenum are unremarkable. Spleen is unremarkable. Small hiatal hernia. Gallbladder partially filled and grossly unremarkable. Pancreas grossly unremarkable. Hepatic parenchyma are within normal limits with no evidence of intrahepatic biliary dilatation or mass within the limitations of a noncontrast study. No mesenteric lymphadenopathy or evidence of small bowel obstruction. No free fluid or free air. No evidence of retroperitoneal lymphadenopathy. No evidence of an abdominal aortic aneurysm. Scattered fecal material and gas throughout the colon without evidence of mass or dilatation. Appendix not inflamed. Pelvis: ??No urinary bladder calculi. Mild mucosal thickening of the urinary bladder wall. Please assess for cystitis. No adjacent fatty infiltration. Normal-sized prostate gland. On bone windows, no evidence of suspicious skeletal lesion or acute compression fracture deformity. Right proximal femoral hardware noted. Limited evaluation of the lower thorax demonstrates no acute abnormality.. Stable 7 mm nodule in lateral left lower lobe on image 25 of series 3.. Stable 3 mm nodule in lateral right lower lobe on image 20. Stable punctate nodule within right middle lobe on image 18.. These nodules are stable since 05/11/2019 exam. Considered benign. No further workup. Procedure Note Kayden Oliveira MD - 11/20/2023 EXAMINATION: CT Abdomen and Pelvis without contrast EXAM DATE/TIME: 11/20/2023 1:53 PM REASON FOR EXAM: Right-sided flank pain with CVA tenderness on the right COMPARISON: 07/27/2023 TECHNIQUE: Axial imaging of the abdomen and pelvis was obtained withoutintravenous contrast. A dose lowering technique was used for this procedure, which may include,but is not limited to, dose reduction technique, automated exposurecontrol, iterative reconstruction, ALARA (As Low As ReasonablyAchievable), or Image Gently techniques. FINDINGS: Abdomen: Adrenal glands are unremarkable. Kidneys demonstrate nosuspicious lesion or hydronephrosis. No renal calculi. Mild dilatation of the mid and distal right ureter with periureteral fattyinfiltration. May be due to ascending urinary tract infection versusrecently passed calculus. Stomach and duodenum are unremarkable. Spleen is unremarkable. Smallhiatal hernia. Gallbladder partially filled and grossly unremarkable. Pancreas grossly unremarkable. Hepatic parenchyma are within normal limits with no evidence ofintrahepatic biliary dilatation or mass within the limitations of anoncontrast study. No mesenteric lymphadenopathy or evidence of small bowel obstruction. Nofree fluid or free air. No evidence of retroperitoneal lymphadenopathy. No evidence of an abdominal aortic aneurysm. Scattered fecal material and gas throughout the colon without evidence ofmass or dilatation. Appendix not inflamed. Pelvis: No urinary bladder calculi. Mild mucosal thickening of theurinary bladder wall. Please assess for cystitis. No adjacent fattyinfiltration. Normal-sized prostate gland. On bone windows, no evidence of suspicious skeletal lesion or acutecompression fracture deformity. Right proximal femoral hardware noted. Limited evaluation of the lower thorax demonstrates no acute abnormality..Stable 7 mm nodule in lateral left lower lobe on image 25 of series 3..Stable 3 mm nodule in lateral right lower lobe on image 20. Stablepunctate nodule within right middle lobe on image 18.. These nodules arestable since 05/11/2019 exam. Considered benign. No further workup. IMPRESSION: 1. Possible mild ascending right-sided urinary tract infection versusrecently passed calculus. No hydronephrosis. No intrarenal calculi. Nourinary bladder calculi. 2. Mild mucosal thickening of the urinary bladder may be due to mildcystitis. Please correlate with urinalysis. Ordered By: ROBIN DE LA CRUZ Interpreted By: Antonio Oliveira, 11/20/2023 2:22 PM Robin De La Cruz DO CT Final Result * LIPASE (11/20/2023 1:35 PM CDT) Pathologist [facility] [place] LIPASE 31 16 - 77 UNITS/L 11/20/2023 2:10 PM CDT [facility] 11/20/2023 1:35 PM CDT Robin De La Cruz DO LABORATORY Final Result [facility] [address] [place] [address], * (ABNORMAL) COMPREHENSIVE METABOLIC PANEL (11/20/2023 1:35 PM CDT) Pathologist [facility] [place] GLUCOSE 101(H) 70 - 99 MG/DL 11/20/2023 2:10 PM CDT [facility] BUN 11 7 - 18 MG/DL 11/20/2023 2:10 PM T [facility] CREATININE S/P/B 0.81 0.7 - 1.3 MG/DL 11/20/2023 2:10 PM T [facility] SODIUM S/P/B 139 136 - 145 MMOL/L 11/20/2023 2:10 PM T [facility] POTASSIUM S/P/B 4.1 3.5 - 5.1 MMOL/L 11/20/2023 2:10 PM T [facility] CHLORIDE S/P/B 103 100 - 108 MMOL/L 11/20/2023 2:10 PM T [facility] CO2 28.5 21 - 32 MMOL/L 11/20/2023 2:10 PM T [facility] CALCIUM S/P/B 8.8 8.5 - 10.1 MG/DL 11/20/2023 2:10 PM T [facility] BILIRUBIN TOTAL S/P/B 0.2 0.2 - 1.2 MG/DL 11/20/2023 2:10 PM [facility] TOTAL PROTEIN S/P/B 7.1 6.4 - 8.2 G/DL 11/20/2023 2:10 PM T [facility] ALBUMIN S/P/B 3.5 3.4 - 5.0 G/DL 11/20/2023 2:10 PM T [facility] AST 19 15 - 37 U/L 11/20/2023 2:10 PM [facility] ALT 27 16 - 60 U/L 11/20/2023 2:10 PM T [facility] ALKALINE PHOSPHATASE S/P/B 153(H) 50 - 136 U/L 11/20/2023 2:10 PM CDT [facility] ANION GAP 7.5 5 - 15 MMOL/L 11/20/2023 2:10 PM CDT [facility] BUN CREATININE RATIO 13.6 6 - 26 11/20/2023 2:10 PM CDT [facility] [facility] A/G RATIO 1.0 1.0 - 2.0 RATIO 11/20/2023 2:10 PM CDT [facility] GFR ESTIMATE >90 >90 ML/MIN/1.7 3 M2 11/20/2023 2:10 PM CDT [facility] Comment: NOTE: eGFR is not calculated for patients <18 years of age. This is an estimated GFR calculation using the new CKD EPI creatinine equation without race and so does not require a correction factor for race. This estimated GFR should not be used for calculating drug doses. 11/20/2023 1:35 PM CDT us Robin De La Cruz DO LABORATORY Final Result [facility] [address] [place] [address], * (ABNORMAL) CBC W/DIFF AUTOMATED (11/20/2023 1:35 PM CDT) WBC 10.64 4.4 - 11.0 x10'3/uL 11/20/2023 1:54 PM CDT [facility] RBC 4.09(L) 4.50 - 5.90 x10'6/uL 11/20/2023 1:54 PM CDT [facility] HGB 11.9(L) 14.0 - 17.5 G/DL 11/20/2023 1:54 PM CDT [facility] HCT 36.1(L) 41.5 - 50.4 % 11/20/2023 1:54 PM CDT [facility] MCV 88.3 80.0 - 96.0 FL 11/20/2023 1:54 PM CDT [facility] MCH 29.1 26.5 - 31.4 PG 11/20/2023 1:54 PM CDT [facility] MCHC 33.0 31.9 - 34.8 G/DL 11/20/2023 1:54 PM CDT [facility] RDW 13.2 12.3 - 14.3 % 11/20/2023 1:54 PM CDT [facility] PLT 308 151 - 353 x10'3/uL 11/20/2023 1:54 PM CDT [facility] MPV 9.0(L) 9.7 - 11.9 FL 11/20/2023 1:54 PM CDT [facility] RBC MORPHOLOGY NORMAL 11/20/2023 1:54 PM CDT [facility] PLT MORPH. NORMAL 11/20/2023 1:54 PM CDT [facility] WBC MORPHOLOGY NORMAL 11/20/2023 1:54 PM CDT [facility] LYMPHOCYTES % 14.5(L) 15.8 - 45.0 % 11/20/2023 1:54 PM CDT [facility] NEUTROPHILS % 77.9(H) 42.1 - 71.9 % 11/20/2023 1:54 PM CDT [facility] MONOCYTES % 5.3(L) 5.7 - 12.5 % 11/20/2023 1:54 PM CDT [facility] EOSINOPHILS 1.1 0.0 - 5.6 % 11/20/2023 1:54 PM CDT [facility] BASOPHILS 0.5 0.0 - 1.3 % 11/20/2023 1:54 PM CDT [facility] ABS. NEUTROPHILS 8.30(H) 1.40 - 6.00 x10'3/uL 11/20/2023 1:54 PM CDT [facility] IMMATURE GRANS % 0.7(H) 0.0 - 0.5 % 11/20/2023 1:54 PM CDT [facility] ABS. LYMPHOCYTES 1.54 0.80 - 4.70 x10'3/uL 11/20/2023 1:54 PM CDT [facility] 11/20/2023 1:35 PM CDT Robin De La Cruz DO LABORATORY Final Result [facility] [address] [place] [address], * (ABNORMAL) URINE BACTERIA CULTURE (11/20/2023 1:12 PM CDT) SPEC DESCRIPTION URINE, UNSPECIFIED 11/20/2023 3:15 PM CDT [facility] SPECIAL REQUESTS NO SPECIAL REQUEST 11/20/2023 3:15 PM CDT [facility] CULTURE RESULT 10,000-49,000 COL/ML KLEBSIELLA PNEUMONIAE (A) 11/22/2023 7:25 AM CDT [facility] URINE SPECIMEN / Unknown 11/20/2023 1:12 PM CDT 11/20/2023 3:50 PM CDT Narrative Organism Antibiotic Method Susceptibility Klebsiella pneumoniae AMPICILLIN SHARON (VITEK) >=32: Resistant Klebsiella pneumoniae AMPICILLIN/SULBACTAM SHARON (VITEK) 16: Intermediate Comment:INTERMEDIATE Klebsiella pneumoniae CEFTRIAXONE SHARON (VITEK) <=1: Sensitive Klebsiella pneumoniae CEFTAZIDIME SHARON (VITEK) <=1: Sensitive Klebsiella pneumoniae CEFAZOLIN SHARON (VITEK) <=4: Sensitive Klebsiella pneumoniae ESBL SHARON (VITEK) NEG: Sensitive Klebsiella pneumoniae NITROFURANTOIN SHARON (VITEK) 128: Resistant Klebsiella pneumoniae GENTAMICIN SHARON (VITEK) <=1: Sensitive Klebsiella pneumoniae LEVOFLOXACIN SHARON (VITEK) >=8: Resistant Klebsiella pneumoniae PIPRACIL/TAZO SHARON (VITEK) 8: Sensitive Klebsiella pneumoniae TRIMETH-SULFAMETH. SHARON (VITEK) <=20: Sensitive Robin De La Cruz DO MICROBIOLOGY - GENERAL ORDERAB LES Final Result [facility] [address] [place] [address], [place] [phone] [facility] [address] [place] [address], [place] [phone] * (ABNORMAL) URINALYSIS, AUTO, COMPLETE (11/20/2023 1:12 PM CDT) COLOR (U) YELLOW 11/20/2023 2:25 PM CDT [facility] TRANSPARENCY HAZY 11/20/2023 2:25 PM CDT [facility] SPECIFIC GRAVITY (U) 1.010 1.000 - 1.030 11/20/2023 2:25 PM CDT [facility] U PH 6.5 5.0 - 9.0 11/20/2023 2:25 PM CDT [facility] LEUKOCYTES (U) 2+(A) NEGATIVE 11/20/2023 2:25 PM CDT [facility] NITRITES NEGATIVE NEGATIVE 11/20/2023 2:25 PM CDT [facility] PROTEIN RANDOM (U) NEGATIVE NEGATIVE 11/20/2023 2:25 PM CDT [facility] GLUCOSE (U) NEGATIVE NEGATIVE 11/20/2023 2:25 PM CDT [facility] KETONES MG/DL (U) NEGATIVE NEGATIVE 11/20/2023 2:25 PM CDT [facility] BILIRUBIN (U) NEGATIVE NEGATIVE 11/20/2023 2:25 PM CDT [facility] BLOOD (U) NEGATIVE NEGATIVE 11/20/2023 2:25 PM CDT [facility] WBC/HPF 10-25 0 - 5 /HPF 11/20/2023 2:25 PM CDT [facility] RBC/HPF 0-5 0 - 5 /HPF 11/20/2023 2:25 PM CDT [facility] EPI/HPF RARE /HPF 11/20/2023 2:25 PM CDT [facility] URINE SPECIMEN OBTAINED BY CLEAN CATCH PROCEDURE / Unknown 11/20/2023 1:12 PM CDT us Robin De La Cruz DO URINE ORDERABLES Final Result [facility] [address] [place] [address], [place] [phone] documented in this encounter Visit Diagnoses Diagnosis Acute cystitis without hematuria- Primary Acute cystitis documented in this encounter Administered Medications Inactive Administered Medications - up to 3 most recent administrations Medication Order MAR Action Action Date Dose Rate Site cefTRIAXone (ROCEPHIN) 1 g in sterile water 10 mL IV 1 g, Intravenous, at 120 mL/hr, Once, 1 dose, On Alyssa 11/20/23 at 1530, Administer over at least 5 minutes. Given 11/20/2023 3:29 PM CDT 1 g 120 mL/hr sodium chloride 0.9% bolus infusion 1,000 mL 1,000 mL, Intravenous, Administer over 60 Minutes, Bolus (Once), 1 dose, On Alyssa 11/20/23 at 1530 New Bag 11/20/2023 3:29 PM CDT 1,000 mLs 1000 mL/hr documented in this encounter Active and Recently Administered Medications Times are shown in CDT. Scheduled Medication Order 11/18/2023 11/19/2023 11/20/2023 cefTRIAXone (ROCEPHIN) 1 g in sterile water 10 mL IV (COMPLETED) 1 g, Intravenous, at 120 mL/hr, Once, 1 dose, On Alyssa 11/20/23 at 1530, Administer over at least 5 minutes. 1529 (Given - Provid er: Cathy Harvey, RN) sodium chloride 0.9% bolus infusion 1,000 mL (COMPLETED) 1,000 mL, Intravenous, Administer over 60 Minutes, Bolus (Once), 1 dose, On Alyssa 11/20/23 at 1530 1529 (New Bag - Prov ider: Cathy Harvey, RN)1620 (Infusion Stop Time - Provider: Jaylin Newman, DANNA) documented in this encounter Care Teams Entry Level Truck Driver Relationship Specialty Start Date End Date Jose Mo MD [address] [address] PCP - General INTERNAL MEDICINE 05/09/19 [place] [address] [place] [address] Consulting Physician UROLOGY 11/20/23 Ania Topete NP [address] [phone] NURSE PRACTITIONER 11/20/23 documented as of this encounter
--- OUTSIDE RECORDS SUMMARY | 2024-03-26 17:00 | XMS_ITS | Encounter Summary ---
Author Organization [facility] Address [address] [place] [address]. [place], [place] [address] [place] [address] Care Team Providers Care Aircraft Pneudraulic Systems Mechanic Name Role Phone Jose Mo MD Primary Care Provider [phone] Encounter Details Date Type Department Care Team (Latest Contact Info) Description 04/01/2022 Travel Social History Tobacco Use Types Packs/Day Years Used Date Smoking Tobacco: Former Cigarettes Q uit: 06/11/2018 Smokeless Tobacco: Never Alcohol Use Standard Drinks/Week Comments Yes 0 (1 standard drink = 0.6 oz pur e alcohol) socially Sex and Gender Information Value Date Recorded Sex Assigned at Male 05/10/2019 1:27 AM PEANUT SEPARATOR Legal Sex Male 7:38 PM CDT Gender Identity Male 05/10/2019 1:27 AM PEANUT SEPARATOR Sexual Orientation Not on file COVID-19 Exposure Response Date Recorded In the last 10 days, have yo u been in contact with someone who was confirmed or suspected to have Coronavirus/COVID-19? No / Unsure 04/01/2022 6:37 AM PEANUT SEPARATOR documented as of this encounter Functional Status * RETIRED Are you deaf or do you have serious difficulty hearing Answer Date of Assessment Author Status No 05/15/2019 12:02 PM PEANUT SEPARATOR 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 Answer Date of Assessment Author Status No 05/15/2019 12:02 PM PEANUT SEPARATOR Acti ve * Do you have serious [...] Author Return home General No Zayra Kidd, RESIDENT ASSISTANT CNA Note: Plan to return home with significant other. No DME or home health needed at this time. documented as of this encounter Visit Diagnoses Not on filedocumented in this encounter Care Teams Aircraft Pneudraulic Systems Mechanic Relationship Specialty Start Date End Date Jose Mo MD [address] [address] PCP - General INTERNAL MEDICINE 05/09/19 documented as of this encounter
--- OUTSIDE RECORDS SUMMARY | 2024-03-26 17:00 | XMS_ITS | Encounter Summary ---
Author Organization [facility] Address [address] [place] [address]. [place], [place] [address] [place] [address] Care Team Providers Care Tutoring Manager Name Role Phone Jose Mo MD Primary Care Provider [phone] Encounter Details Date Type Department Care Team (Latest Contact Info) Description 03/13/2021 Travel Social History Tobacco Use Types Packs/Day Years Used Date Smoking Tobacco: Former Cigarettes Q uit: 06/11/2018 Smokeless Tobacco: Never Alcohol Use Standard Drinks/Week Comments Yes 0 (1 standard drink = 0.6 oz pur e alcohol) socially Sex and Gender Information Value Date Recorded Sex Assigned at Male 05/10/2019 1:27 AM WASHING MACHINE ASSEMBLER Legal Sex Male 7:38 PM CDT Gender Identity Male 05/10/2019 1:27 AM WASHING MACHINE ASSEMBLER Sexual Orientation Not on file COVID-19 Exposure Response Date Recorded In the last month, have you been in contact with someone who was confirmed or suspected to have Coronavirus / COVID-19? No / Unsure 03/13/2021 2:29 PM WASHING MACHINE ASSEMBLER documented as of this encounter Functional Status * RETIRED Are you deaf or do you have serious difficulty hearing Answer Date of Assessment Author Status No 05/15/2019 12:02 PM WASHING MACHINE ASSEMBLER 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 Answer Date of Assessment Author Status No 05/15/2019 12:02 PM WASHING MACHINE ASSEMBLER Acti ve * Do you have serious difficulty walking or climbing stairs? Answer Date of Assessment Author Status No 05/15/2019 12:02 PM WASHING MACHINE ASSEMBLER Cassie Dawn RN Active * Do you [...] Author Return home General No Zayra Kidd, WIRE TESTER Note: Plan to return home with significant other. No DME or home health needed at this time. documented as of this encounter Visit Diagnoses Not on filedocumented in this encounter Additional Health Concerns Infection Onset Date Last Indicated Resolved Time COVID-19 Rule Out 03/13/2021 03/13/2021 03/13/2021 2:37 PM WASHING MACHINE ASSEMBLER COVID-19 Confirmed 03/13/2021 03/13/2021 12:32 AM WASHING MACHINE ASSEMBLER documented as of this encounter Care Teams Tutoring Manager Relationship Specialty Start Date End Date Jose Mo MD [address] [address] PCP - General INTERNAL MEDICINE 05/09/19 documented as of this encounter
--- OUTSIDE RECORDS SUMMARY | 2024-03-26 17:00 | XMS_ITS | Encounter Summary ---
Author Organization [facility] Address [address] [place] [address]. [place], [place] [address] [place] [address] Care Team Providers Care Lease Broker Name Role Phone Jose Mo MD Primary Care Provider [phone] Encounter Details Date Type Department Care Team (Latest Contact Info) Description 12/29/2020 Travel Social History Tobacco Use Types Packs/Day Years Used Date Smoking Tobacco: Former Cigarettes Q uit: 06/11/2018 Smokeless Tobacco: Never Alcohol Use Standard Drinks/Week Comments Yes 0 (1 standard drink = 0.6 oz pur e alcohol) socially Sex and Gender Information Value Date Recorded Sex Assigned at Male 05/10/2019 1:27 AM SITE LEAD Legal Sex Male 7:38 PM CDT Gender Identity Male 05/10/2019 1:27 AM SITE LEAD Sexual Orientation Not on file COVID-19 Exposure Response Date Recorded In the last month, have you been in contact with someone who was confirmed or suspected to have Coronavirus / COVID-19? No / Unsure 12/29/2020 1:08 PM CDT documented as of this encounter Functional Status * RETIRED Are you deaf or do you have serious difficulty hearing Answer Date of Assessment Author Status No 05/15/2019 12:02 PM SITE LEAD 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 Answer Date of Assessment Author Status No 05/15/2019 12:02 PM SITE LEAD Acti ve * Do you have serious difficulty walking or climbing stairs? Answer Date of Assessment Author Status No 05/15/2019 12:02 PM SITE LEAD Cassie Dawn RN Active * Do you [...] Author Return home General No Zayra Kidd, LEAD MANUFACTURING ENGINEER Note: Plan to return home with significant other. No DME or home health needed at this time. documented as of this encounter Visit Diagnoses Not on filedocumented in this encounter Additional Health Concerns Infection Onset Date Last Indicated Resolved Time COVID-19 Rule Out 12/29/2020 12/29/2020 12/29/2020 3:34 PM CDT documented as of this encounter Care Teams Lease Broker Relationship Specialty Start Date End Date Jose Mo MD [address] [address] PCP - General INTERNAL MEDICINE 05/09/19 documented as of this encounter
--- OUTSIDE RECORDS SUMMARY | 2024-03-26 17:00 | XMS_ITS | Patient Health Summary ---
Author Organization [facility] Address [address] [place] [address] Care Team Providers Care Fitness Assistant Name Role Phone Jose Mo MD Primary Care Provider [phone] Note from [facility],non-owned Affiliates and Associated Physician Practices is amultiple site organization consisting of ambulatory clinics and hospital sitesin [place], [place], [place] and [place]. This disclosure is being madepursuant to the Care Everywhere program and may not contain all information available regarding this patient. Last updated 17.[facility] Active Problems Problem Noted Date Diagnosed Date Mesenteric mass 03/23/2024 Social History Tobacco Use Types Packs/Day Years Used Date Smoking Tobacco: Never Assessed Sex and Gender Information Value Date Recorded Sex Assigned at Not on file Gender Identity Not on file Sexual Orientation Not on file Procedures * PATHOLOGY TISSUE(Performed 03/23/2024) Performed for Illness, unspecified * DERMATOPATHOLOGY(Performed 11/03/2023) Results * PATHOLOGY TISSUE (03/23/2024 1:43 PM MANAGER MILITARY) Case Report Surgical Pathology Report ? Case: [id number] ? Authorizing Provider: ??Weston Garces MD ?Collected: ? 03/23/2024 01:43 PM ? Ordering Location: ? [facility] - ??Received: ?03/24/2024 02:17 PM ? Pathology Lab ? Pathologist: ? Dk Enciso MD ? Specimen: ?Gastric Biopsy ? 03/25/2024 4:23 PM [facility] Final Diagnosis Ileal mass, biopsy: - Diffuse large B-cell lymphoma, non-germinal center derived 03/25/2024 4:23 PM [facility] Microscopic Description and Comment The H&E stained sections show a mucosal infiltrate of sheets of large lymphoid cells with hyperchromatic chromatin and few interspersed apoptotic cells. A low-grade component is not appreciated. Immunohistochemistry performed at [facility] Pathology shows the lymphoma cells to be [...] epithelial and endothelial nuclei. 03/25/2024 4:23 PM [facility] Clinical History Ilial mass. 03/25/2024 4:23 PM [facility] Materials Received Received are 2 slide(s) and 1 block(s) labeled [id number] along with a copy of the outside pathology report. [place] [address]. All original materials are returned to the referring institution, along with a copy of our final report. 03/25/2024 4:23 PM [facility] Pathologist Location at [facility] 03/25/2024 4:23 PM [facility] Disclaimer The performance characteristics of all immunohistochemical and indirect immunofluorescence stains (if any) cited in this report were determined by the Histopathology Laboratory of [facility]. Some of these tests were developed by [...] the attending (teaching) pathologist. 03/25/2024 4:23 PM [facility] Embedded Images 03/25/2024 4:23 PM [facility] Pathology/Cytolo gy GASTRIC BIOPSY SPECIMEN / Unknown 03/23/2024 1:43 PM MANAGER MILITARY 03/24/2024 2:17 PM MANAGER MILITARY Weston Garces MD LAB - PATHOLOGY/CYTO LOGY ORDERABLES [facility] [address] [address], [facility] [phone] * DERMATOPATHOLOGY (11/03/2023 12:00 AM CDT) Case Report Dermatopathology Report ? Case: [id number] ? Authorizing Provider: ??Reyes Ragland MD ?Collected: ? 11/03/2023 12:00 AM ? Ordering Location: ? [facility] - ??Received: ?11/05/2023 06:48 AM ? DermPath Lab ? Pathologist: ? Alva Johnson MD ? Specimen: ?Skin, left superior helix ? 4 2:47 PM CDT DERMATOPATHOLOGY LABORATORY Final Diagnosis Specimen A. SKIN, left superior helix: BASAL CELL CARCINOMA, INFILTRATIVE PATTERN (C44.219) 4 2:47 PM CDT DERMATOPATHOLOGY LABORATORY Clinical History BCC 4 2:47 PM CDT DERMATOPATHOLOGY LABORATORY Gross Description Specimen A: Received is one formalin filled container labeled with the patient's name and designated left superior helix. The specimen consists of a shave biopsy measuring 6x6x1 mm. Jar 0. 4 2:47 PM CDT DERMATOPATHOLOGY LABORATORY Microscopic Description Specimen A. SKIN, left superior helix: Within the dermis there are nodular aggregates of basaloid cells associated with fibromyxoid stroma and epithelial-stromal clefts. At the advancing margin of the neoplasm, there are smaller angulated nests that infiltrate the dermis. 4 2:47 PM CDT DERMATOPATHOLOGY LABORATORY Disclaimer An external and internal positive and negative controls are appropriate for the histochemical, immunohistochemical and immunofluorescence stain(s) in this case (if any), except where stated explicitly. The performance characteristics of the stain(s) cited in this report were developed and its performance characteristic determined by the Dermatopathology Laboratory at [facility], directed by Dr. Omid Johnson. These tests need not be, and therefore are not, approved by the [place] Food and Drug Administration. The tests are used for clinical purposes. Billing Codes Specimen Charges Stain Charges 01491 1 4 2:47 PM CDT DERMATOPATHOLOGY LABORATORY Embedded Images 4 2:47 PM CDT DERMATOPATHOLOGY LABORATORY Pathology/Cytolog y TISSUE SPECIMEN FROM SKIN / Unknown 11/03/2023 11/05/2023 6:48 AM CDT Reyes Ragland MD LAB - PATHOLOGY/CYTO LOGY ORDERABLES DERMATOPATHOLOGY LABORATORY [facility] - Department of Dermatology [address] [phone] Care Teams Fitness Assistant Relationship Specialty Start Date End Date Jose Mo MD PCP - General 03/21/08
--- OUTSIDE RECORDS SUMMARY | 2024-03-26 17:00 | XMS_ITS | Encounter Summary ---
Author Organization [facility] Address [address] [place] [address]. [place], [place] [address] [place] [address] Care Team Providers Care Dive Supervisor Name Role Phone Jose Mo MD Primary Care Provider [phone] Reason for Visit * Reason Onset Date Comments Follow Up Call 05/17/2019 Encounter Details Date Type Department Care Team (Late st Contact Info) Description 05/17/2019 Telephone [facility] Med/Surg [address] [place] [address] Jacque Eugene RN Follow Up Call Social History Tobacco Use Types Packs/Day Years Used Date Smoking Tobacco: Former Cigarettes Q uit: 06/11/2018 Smokeless Tobacco: Never Alcohol Use Standard Drinks/Week Comments Yes 0 (1 standard drink = 0.6 oz pur e alcohol) socially Sex and Gender Information Value Date Recorded Sex Assigned at Male 05/10/2019 1:27 AM MANAGER OF DATA Legal Sex Male 7:38 PM CDT Gender Identity Male 05/10/2019 1:27 AM MANAGER OF DATA Sexual Orientation Not on file documented as of this encounter Functional Status * RETIRED Are you deaf or do you have serious difficulty hearing Answer Date of Assessment Author Status No 05/15/2019 12:02 PM MANAGER OF DATA 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 Answer Date of Assessment Author Status No 05/15/2019 12:02 PM MANAGER OF DATA Acti ve * Do you have serious [...] Author Return home General No Zayra Kidd, CHEF ASSISTANT Note: Plan to return home with significant other. No DME or home health needed at this time. documented as of this encounter Visit Diagnoses Not on filedocumented in this encounter Care Teams Dive Supervisor Relationship Specialty Start Date End Date Jose Mo MD [address] [address] PCP - General INTERNAL MEDICINE 05/09/19 documented as of this encounter
--- OUTSIDE RECORDS SUMMARY | 2024-03-26 17:00 | XMS_ITS | Encounter Summary ---
Author Organization [facility] Address [address] [place] [address]. [place], [place] [address] [place] [address] Care Team Providers Care Primary Special Education Teacher Name Role Phone Jose Mo MD Primary Care Provider [phone] Encounter Details Date Type Department Care Team (Latest Contact Info) Description 07/09/2022 Travel Social History Tobacco Use Types Packs/Day Years Used Date Smoking Tobacco: Former Cigarettes Q uit: 06/11/2018 Smokeless Tobacco: Never Alcohol Use Standard Drinks/Week Comments Not Currently 0 (1 standard drink = 0.6 oz pur e alcohol) socially Sex and Gender Information Value Date Recorded Sex Assigned at Male 05/10/2019 1:27 AM WRISTER Legal Sex Male 7:38 PM CDT Gender Identity Male 05/10/2019 1:27 AM WRISTER Sexual Orientation Not on file COVID-19 Exposure [...] Assessment Author Status No 05/15/2019 12:02 PM WRISTER 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 Answer Date of Assessment Author Status No 05/15/2019 12:02 PM WRISTER Acti ve * Do you have serious difficulty walking or climbing stairs? Answer Date of Assessment Author Status No 05/15/2019 12:02 PM Cassie Perdomo RN Active * Do you have difficulty dressing or bathing? Answer Date of Assessment Author Status No 05/15/2019 12:02 PM Casise Perdomo RN Active * Because of a [...] Author Return home General No Zayra Kidd, WAREHOUSE TEAM LEADER Note: Plan to return home with significant other. No DME or home health needed at this time. documented as of this encounter Visit Diagnoses Not on filedocumented in this encounter Care Teams Primary Special Education Teacher Relationship Specialty Start Date End Date Jose Mo MD [address] [address] PCP - General INTERNAL MEDICINE 05/09/19 documented as of this encounter
--- OUTSIDE RECORDS SUMMARY | 2024-03-26 17:00 | XMS_ITS | Encounter Summary ---
Author Organization [facility] Address [address] [place] [address] Care Team Providers Care Apparel Patternmaker Name Role Phone Jose Mo MD Primary Care Provider [phone] Encounter Details Date Type Department Care Team (Late st Contact Info) Description 11/04/2023 Lab Requisition [facility] - DermPath Lab [address] [facility] [place] [id number] Reyes Ragland MD [address] [place] [address] Social History Tobacco Use Types Packs/Day Years Used Date Smoking Tobacco: Never Assessed Sex and Gender Information Value Date Recorded Sex Assigned at Not on file Gender Identity Not on file Sexual Orientation Not on file documented as of this encounter Plan of Treatment Not on file documented as of this encounter Procedures Procedure Name Priority Date/Time Associated Diagnosis Comments DERMATOPATHOLOGY Routine 11/03/2023 12:0 0 AM CDT documented in this encounter Results * DERMATOPATHOLOGY (11/03/2023 12:00 AM CDT) Case Report Dermatopathology Report ? Case: [id number] ? Authorizing Provider: ??Reyes Ragland MD ?Collected: [...] characteristic determined by the Dermatopathology Laboratory at [facility], directed by Dr. Omid Johnson. These tests need not be, and therefore are not, approved by the [place] Food and Drug Administration. The tests are used for clinical purposes. Billing Codes Specimen Charges Stain Charges 52108 1 4 2:47 PM CDT DERMATOPATHOLOGY LABORATORY Embedded Images 4 2:47 PM CDT DERMATOPATHOLOGY LABORATORY Pathology/Cytolog y TISSUE SPECIMEN FROM SKIN / Unknown 11/03/2023 11/05/2023 6:48 AM CDT Reyes Ragland MD LAB - PATHOLOGY/CYTO LOGY ORDERABLES DERMATOPATHOLOGY LABORATORY [facility] Department of Dermatology [address] [phone] documented in this encounter Visit Diagnoses Not on filedocumented in this encounter Care Teams Apparel Patternmaker Relationship Specialty Start Date End Date oJse Mo MD PCP - General 03/21/08 documented as of this encounter
--- OUTSIDE RECORDS SUMMARY | 2024-03-26 17:00 | XMS_ITS | Encounter Summary ---
Author Organization [facility] Address [address] [place] [address]. [place], [place] [address] [place] [address] Care Team Providers Care Sales Representative Raw Fibers Name Role Phone Jose Mo MD Primary Care Provider [phone] Encounter Details Date Type Department Care Team (Latest Contact Info) Description 01/28/2021 Travel Social History Tobacco Use Types Packs/Day Years Used Date Smoking Tobacco: Former Cigarettes Q uit: 06/11/2018 Smokeless Tobacco: Never Alcohol Use Standard Drinks/Week Comments Yes 0 (1 standard drink = 0.6 oz pur e alcohol) socially Sex and Gender Information Value Date Recorded Sex Assigned at Male 05/10/2019 1:27 AM SPECIAL EDUCATION PROFESSOR Legal Sex Male 7:38 PM CDT Gender Identity Male 05/10/2019 1:27 AM SPECIAL EDUCATION PROFESSOR Sexual Orientation Not on file COVID-19 Exposure [...] Assessment Author Status No 05/15/2019 12:02 PM SPECIAL EDUCATION PROFESSOR 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 Answer Date of Assessment Author Status No 05/15/2019 12:02 PM SPECIAL EDUCATION PROFESSOR Acti ve * Do you have serious difficulty walking or climbing stairs? Answer Date of Assessment Author Status No 05/15/2019 12:02 PM SPECIAL EDUCATION PROFESSOR Cassie Dawn RN Active * Do you [...] Date Author Status No 05/15/2019 12:02 PM aCssie Perdomo RN Active documented in this encounter Plan of Treatment Not on file documented as of this encounter Goals Goal Patient Goal Type Associated Problems Recent Progress Patient-Stated? Author Return home General No Zayra Kidd, DEWATERING FILTERING SUPERVISOR Note: Plan to return home with significant other. No DME or home health needed at this time. documented as of this encounter Visit Diagnoses Not on filedocumented in this encounter Care Teams Sales Representative Raw Fibers Relationship Specialty Start Date End Date Jose Mo MD [address] [address] PCP - General INTERNAL MEDICINE 05/09/19 documented as of this encounter
--- OUTSIDE RECORDS SUMMARY | 2024-03-26 17:00 | XMS_ITS | Encounter Summary ---
Author Organization [facility] Address [address] [place] [address]. [place], [place] [address] [place] [address] Care Team Providers Care Lace Winder Name Role Phone Jose Mo MD Primary Care Provider Reason for Visit * Reason Comments Foot Injury Encounter Details Date Type Department Care Team (Late st Contact Info) Description 03/23/2022 10:30 AM APARTMENT RENTAL AGENT - 03/23/2022 12:04 PM APARTMENT RENTAL AGENT Emergency [facility] Emergency Room [address] [place] [address] Eliazar Darnell, [facility] Foot Injury Discharge Disposition: Home or Self Care (Routine Discharge) Social History Tobacco Use Types Packs/Day Years Used Date Smoking Tobacco: Former Cigarettes Q uit: 06/11/2018 Smokeless Tobacco: Never Alcohol Use Standard Drinks/Week Comments Yes 0 (1 standard drink = 0.6 oz pur e alcohol) socially Sex and Gender Information Value Date Recorded Sex Assigned at Male 05/10/2019 1:27 AM APARTMENT RENTAL AGENT Legal Sex Male 7:38 PM CDT Gender Identity Male 05/10/2019 1:27 AM APARTMENT RENTAL AGENT Sexual Orientation Not on file COVID-19 Exposure Response Date Recorded In the last 10 days, have yo u been in contact with someone who was confirmed or suspected to have Coronavirus/COVID-19? No / Unsure 03/23/2022 10:29 AM APARTMENT RENTAL AGENT documented as of this encounter Last Filed Vital Signs Vital Sign Reading Time Taken Comments Blood Pressure 107/38 03/23/2022 11:35 AM APARTMENT RENTAL AGENT Pulse 74 03/23/2022 10:36 AM APARTMENT RENTAL AGENT Temperature 35.7 ??C (96.3 ??F) 03/23/2022 10:36 AM C Respiratory Rate 20 03/23/2022 10:36 AM APARTMENT RENTAL AGENT Oxygen Saturation 98% 03/23/2022 11:35 AM APARTMENT RENTAL AGENT Inhaled Oxygen Concentration - - Weight 113.4 kg (250 lb) 03/23/2022 10:36 AM APARTMENT RENTAL AGENT Height 170.2 cm (5' 7 ) 03/23/2022 10:36 AM APARTMENT RENTAL AGENT Body Mass Index 39.16 03/23/2022 10:36 AM APARTMENT RENTAL AGENT documented in this encounter Functional Status * RETIRED Are you deaf or do you have serious difficulty hearing Answer Date of Assessment Author Status No 05/15/2019 12:02 PM APARTMENT RENTAL AGENT 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 Answer Date of Assessment Author Status No 05/15/2019 12:02 PM APARTMENT RENTAL AGENT Acti ve * Do you have serious [...] this encounter Discharge Instructions * Discharge Instructions* GÓMEZ Rollins-BC - 03/23/2022 11:06 AM APARTMENT RENTAL AGENT Keep the post op shoe in place to help heal your toe. Rest affected area, apply cool compress and elevate to minimize swelling. Take pain medication as prescribed. Do not drink, drive, or operate machinery while taking this medication. It can make you sleepy. Ibuprofen will also help with pain and inflammation; take with food as needed. Follow up with PCP for ongoing management, call for appointment. If not healing well, they may haveyou see a property supervisor or orthopedic surgeon. Return to ER for uncontrolled pain, discoloration of skin, or tingling/numbness of extremity. TMENT RENTAL AGENT TMENT RENTAL AGENT TMENT RENTAL AGENT * Attachments The following attachments cannot be sent through Care Everywhere. * Toe Fracture Discharge Instructions (Swedish) documented in this encounter Medications at Time [...] as of this encounter ED Notes * LULÚ Rollins - 03/23/2022 11:38 AM CST History Chief Complaint Patient presents with ??? Foot Injury Angus Jain is a 51-year-old male who presented to the ED with c/o falling last night. Patient states that due to his neurological status he falls often. He was using his walker and his legs gave way. He reports that his left leg went underneath of him and he hurt his ankle and foot. Patient states that his ankle is swollen but he iced it through the night. He also reports pain to his first and second toe. He reports he did take a leftover codeine from his along with ibuprofen to help with the pain. He reports no improvement. He denies numbness or tingling. He denies hitting his head or loss of consciousness when he fell. Past Medical History: Diagnosis Date ??? Bladder disorder ??? Epididymitis ??? History of blood transfusion 1986 ??? Neck fracture (CMS/HCC) ??? Skull fracture (CMS/HCC) Prior to Admission medications Medication Sig Start Date End Date Taking? Authorizing Provider HYDROcodone-acetaminophen (NORCO) 5-325 MG tablet Take 1 tablet by mouth every 6 (six) hours as needed for Pain. Indications: Acute Pain < 3 Day Supply 03/23/22 Yes LULÚ Rollins carBAMazepine XR 200 MG 12 hr tablet Take 1,000 mg by mouth nightly at bedtime. 04/29/19 [facility] cyclobenzaprine 10 MG tablet Take 10 mg by mouth 2 (two) times daily as needed for Muscle Spasms. 09/01/18 [facility] esomeprazole 40 MG capsule Take 40 mg by mouth daily. 04/27/19 [facility] methenamine 1 g tablet Take 1 g by mouth 2 (two) times daily with meals. [facility] psyllium 51.7 % packet Take 1 packet by mouth daily. [facility] tadalafil 5 MG tablet Take 5 mg by mouth as needed for Erectile Dysfunction. 03/23/19 Doc [facility] Past Surgical History: Procedure Laterality Date ??? CLOSED RX DIST FIBULA FX ??? EAR SURGERY EXTERNAL No family history on file. Social History Tobacco Use ??? Smoking status: Former Types: Cigarettes Quit date: 06/11/2018 Years since quittin.7 ??? Smokeless tobacco: Never Substance Use Topics ??? Alcohol use: Yes Comment: socially ??? Drug use: Never No LMP for male patient. Review of Systems Constitutional: Negative for fever. Respiratory: Negative for cough, shortness of breath, wheezing and stridor. Cardiovascular: Negative for chest pain. Gastrointestinal: Negative for abdominal pain. Musculoskeletal: Positive for arthralgias (Left foot and ankle). Neurological: Negative for numbness. All other systems reviewed and are negative. Physical Exam Filed Vitals: 03/23/22 1036 03/23/22 1100 03/23/22 1115 03/23/22 1135 BP: (!) 155/58 (!) 174/79 (!) 107/38 Pulse: 74 Resp: 20 Temp: 96.3 ??F (35.7 ??C) TempSrc: Temporal SpO2: 99% 97% 98% 98% Weight: 113.4 kg (250 lb) Height: 5' 7 (1.702 m) Physical Exam Vitals reviewed. Constitutional: Appearance: He is well-developed. HENT: Head: Normocephalic and atraumatic. Right Ear: External ear normal. Left Ear: External ear normal. Nose: Nose normal. Mouth/Throat: Mouth: Mucous membranes are moist. Eyes: Conjunctiva/sclera: Conjunctivae normal. Pupils: Pupils are equal, round, and reactive to light. Cardiovascular: Rate and Rhythm: Normal rate and regular rhythm. Heart sounds: Normal heart sounds. Pulmonary: Effort: Pulmonary effort is normal. Breath sounds: Normal breath sounds. Abdominal: General: Bowel sounds are normal. Palpations: Abdomen is soft. Musculoskeletal: General: Swelling and tenderness present. Normal range of motion. Cervical back: Normal range of motion and neck supple. Comments: Tenderness with palpation of the left lateral malleolus along the left lateral edge of the fifth metatarsal, tenderness also noted with palpation of the left great toe with ecchymosis notedover the distalmost aspect. Limited range of motion in the toes due to pain. Mild soft tissue swelling noted to the great toe and over the lateral malleolus. 2+ pedal pulses. Sensation intact. No open wounds. Skin: General: Skin is warm and dry. Findings: Bruising (Mild ecchymosis noted to the left great toe over the distalmost aspect, no openwounds.) present. Neurological: Mental Status: He is alert and oriented to person, place, and time. Psychiatric: Behavior: Behavior normal. Thought Content: Thought content normal. XR TIBIA+FIBULA LT 2V Final Result by User, [id number] (03/23 111) 2 VIEWS OF THE LEFT LOWER LEG Clinical History: Pain after fall Comparison: None 2 views of the left lower leg demonstrate the bony elements to be intact. There is no evidence of fracture or dislocation. The surrounding soft tissues appear normal IMPRESSION: No acute findings Ordered By: ELIAZAR DARNELL Interpreted By: Selvin Sheppard MD, 03/23/2022 11:09 AM XR FOOT LT 3V Final Result by User, [id number] (03/23 111) 3 VIEWS OF THE LEFT FOOT CLINICAL HISTORY: Pain COMPARISON: None 3 views of the left foot demonstrate the bony elements to be intact. There is no evidence of fracture or dislocation. The surrounding soft tissues appear normal. Degenerative changes are noted within the interphalangeal joint of the great toe IMPRESSION: No acute findings Ordered By: ELIAZAR DARNELL Interpreted By: Selvin Sheppard MD, 03/23/2022 11:09 AM ED Course Procedures ED Course as of 03/23/22 1417 Sat Mar 23, 2022 1132 Upon my review of the foot xrays there appears to be a fracture off the proximal aspect on thedistal phalanx without displacement and the distal aspect of the proximal phalanx without displacement. [MP] ED Course User Index [MP] FRANCY RollinsP-BC Medications HYDROcodone-acetaminophen (NORCO) 5-325 MG tablet 1 tablet (1 tablet Oral Given 03/23/22 1046) Discharge Medication List as of 03/23/2022 11:38 AM START taking these medications Details HYDROcodone-acetaminophen (NORCO) 5-325 MG tablet Take 1 tablet by mouth every 6 (six) hours as needed for Pain. Indications: Acute Pain < 3 Day Supply, Starting 03/23/2022, Eprescribe Class: Eprescribe Pharmacy: [facility] [address] [place] [address] [address] (Ph #: [phone]) Plan of care discussed with patient. Patient agreeable with plan of care. I have discussed today's findings with the patient and provided information regarding the likely diagnosis. I believe at thistime that the patient has no medical emergency and is appropriate for outpatient management. The patient has been given information regarding their treatment, follow up and concerning symptoms for which they should seek urgent or emergent attention; all questions were answered. I have expressed thethe importance of seeking attention should there be any new, or worsening symptoms or persistence of their condition. The patient is stable at discharge and has verbalized understanding of these instructions. MDM Number of Diagnoses or Management Options Amount and/or Complexity of Data Reviewed Tests in the radiology section of CPT??: ordered and reviewed Decide to obtain previous medical records or to obtain history from someone other than the patient:yes Independent visualization of images, tracings, or specimens: yes Patient Progress Patient progress: stable SNOMED CT(R) 1. Fractured great toe FRACTURE OF GREAT TOE Disposition: Discharge Follow up instructions: Jose Mo MD [employer] [facility] [place] [address] Call in 2 days If symptoms worsen LULÚ ROLLINS Please excuse any grammatical or spelling errors as this chart was documented using [employer], a dictation software. LULÚ Rollins 03/23/22 1417 Cosigned by Travis Holcomb MD at 03/24/2022 7:07 AM APARTMENT RENTAL AGENT TMENT RENTAL AGENT TMENT RENTAL AGENT * Jaylin Newman RN - 03/23/2022 10:40 AM CST 51 yo male in with c/o left foot pain since falling last night. Patient states his legs gave out and he rolled onto his foot . Patient currently rates pain a 9/10 at this time and denies taking any medication prior to ED arrival. TMENT RENTAL AGENT documented in this encounter Plan of Treatment Not on file documented as of this encounter Goals Goal Patient Goal Type Associated Problems Recent Progress Patient-Stated? Author Return home General No Zayra Kidd, EDITOR MANAGING DIRECTOR Note: Plan to return home with significant other. No DME or home health needed at this time. documented as of this encounter Procedures Procedure Name Priority Date/Time Associated Diagnosis Comments XR TIBIA+FIBULA LT 2V STAT 03/23/2022 11:03 AM APARTMENT RENTAL AGENT XR FOOT LT 3V STAT 03/23/2022 11:03 AM APARTMENT RENTAL AGENT documented in this encounter Results * XR FOOT LT 3V (03/23/2022 11:03 AM APARTMENT RENTAL AGENT) Anatomical Region Laterality Modality Foot Radiographic Cata ging 03/23/2022 11:0 9 AM APARTMENT RENTAL AGENT Impressions 03/23/2022 11:09 AM APARTMENT RENTAL AGENT IMPRESSION: No acute findings Ordered By: ELIAZAR DARNELL Interpreted By: Selvin Sheppard MD, 03/23/2022 11:09 AM Narrative 03/23/2022 11:09 AM APARTMENT RENTAL AGENT 3 VIEWS OF THE LEFT FOOT CLINICAL HISTORY: Pain COMPARISON: None 3 views of the left foot demonstrate the bony elements to be intact. There is no evidence of fracture or dislocation. The surrounding soft tissues appear normal. Degenerative changes are noted within the interphalangeal joint of the great toe Procedure Note Selvin Sheppard MD - 03/23/2022 3 VIEWS OF THE LEFT FOOT CLINICAL HISTORY: Pain COMPARISON: None 3 views of the left foot demonstrate the bony elements to be intact. Thereis no evidence of fracture or dislocation. The surrounding soft tissuesappear normal. Degenerative changes are noted within the interphalangealjoint of the great toe IMPRESSION: No acute findings Ordered By: ELIAZAR DARNELL Interpreted By: Selvin Sheppard MD, 03/23/2022 11:09 AM Eliazar Darnell [facility] [employer] [employer] [facility] GENERAL IMAGING Final Res ult * XR TIBIA+FIBULA LT 2V (03/23/2022 11:03 AM APARTMENT RENTAL AGENT) Anatomical Region Laterality Modality TibFib Radiographic Cata ging 03/23/2022 11:0 9 AM APARTMENT RENTAL AGENT Impressions 03/23/2022 11:10 AM APARTMENT RENTAL AGENT IMPRESSION: No acute findings Ordered By: ELIAZAR DARNELL Interpreted By: Selvin Sheppard MD, 03/23/2022 11:09 AM Narrative 03/23/2022 11:10 AM APARTMENT RENTAL AGENT 2 VIEWS OF THE LEFT LOWER LEG Clinical History: Pain after fall Comparison: None 2 views of the left lower leg demonstrate the bony elements to be intact. There is no evidence of fracture or dislocation. The surrounding soft tissues appear normal Procedure Note Selvin Sheppard MD - 03/23/2022 2 VIEWS OF THE LEFT LOWER LEG Clinical History: Pain after fall Comparison: None 2 views of the left lower leg demonstrate the bony elements to be intact.There is no evidence of fracture or dislocation. The surrounding softtissues appear normal IMPRESSION: No acute findings Ordered By: ELIAZAR DARNELL Interpreted By: Selvin Sheppard MD, 03/23/2022 11:09 AM Eliazar Darnell [employer] GENERAL [facility] Final Res ult documented in this encounter Visit Diagnoses Diagnosis Fractured great toe- Primary Closed fracture of one or more phalanges of foot documented in this encounter Administered Medications Inactive Administered Medications - up to 3 most recent administrations Medication Order MAR Action Action Date Dose Rate Site HYDROcodone-acetaminophen (NORCO) 5-325 MG tablet 1 tablet 1 tablet, Oral, Once, 1 dose, On 03/23/22 at 1045, Maximum dose of acetaminophen is 4000 mg from all sources in 24 hours. Given 03/23/2022 10:46 AM APARTMENT RENTAL AGENT 1 tablet documented in this encounter Active and Recently Administered Medications Times are shown in APARTMENT RENTAL AGENT. Scheduled Medication Order 03/21/2022 03/22/2022 03/23/2022 HYDROcodone-acetaminophen (NORCO) 5-325 MG tablet 1 tablet (COMPLETED) 1 tablet, Oral, Once, 1 dose, On 03/23/22 at 1045, Maximum dose of acetaminophen is 4000 mg from all sources in 24 hours. 1046 (Given - Provid er: Jaylin Newman RN) documented in this encounter Care Teams Lace Winder Relationship Specialty Start Date End Date Jose Mo MD [address] [address] PCP - General INTERNAL MEDICINE 05/09/19 documented as of this encounter
--- OUTSIDE RECORDS SUMMARY | 2024-03-26 17:00 | XMS_ITS | Encounter Summary ---
Author Organization [facility] Address [address] [place] [address]. [place], [place] [id number] [place] [address] Care Team Providers Care Supervisor Intelligence Analyst Name Role Phone Jose Mo MD Primary Care Provider [phone] Encounter Details Date Type Department Care Team (Latest Contact Info) Description 07/27/2023 Travel Social History Tobacco Use Types Packs/Day Years Used Date Smoking Tobacco: Former Cigarettes Q uit: 06/11/2018 Smokeless Tobacco: Never Alcohol Use Standard Drinks/Week Comments Not Currently 0 (1 standard drink = 0.6 oz pur e alcohol) socially Sex and Gender Information Value Date Recorded Sex Assigned at Male 05/10/2019 1:27 AM ASSOCIATE PROFESSOR OF VIOLIN Legal Sex Male 7:38 PM CDT Gender Identity Male 05/10/2019 1:27 AM ASSOCIATE PROFESSOR OF VIOLIN Sexual Orientation Not on file documented as of this encounter Functional Status * RETIRED Are you deaf or do you have serious difficulty hearing Answer Date of Assessment Author Status No 05/15/2019 12:02 PM ASSOCIATE PROFESSOR OF VIOLIN 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 Answer Date of Assessment Author Status No 05/15/2019 12:02 PM ASSOCIATE PROFESSOR OF VIOLIN Acti ve * Do you have serious [...] Author Return home General No Zayra Kidd, QUALITY CONTROL CHECKER Note: Plan to return home with significant other. No DME or home health needed at this time. documented as of this encounter Visit Diagnoses Not on filedocumented in this encounter Additional Health Concerns Infection Onset Date Last Indicated Resolved Time COVID-19 Rule Out 07/27/2023 07/27/2023 07/27/2023 8:33 PM CDT documented as of this encounter Care Teams Supervisor Intelligence Analyst Relationship Specialty Start Date End Date Jose Mo MD [address] [address] PCP - General INTERNAL MEDICINE 05/09/19 documented as of this encounter
--- OUTSIDE RECORDS SUMMARY | 2024-03-26 17:00 | XMS_ITS | Encounter Summary ---
Author Organization [facility] Address [address] [place] [address]. [place], [place] [address] [place] [address] Care Team Providers Care Trim Carpenter Name Role Phone Jose Mo MD Primary Care Provider [phone] Encounter Details Date Type Department Care Team (Latest Contact Info) Description 07/21/2021 Travel Social History Tobacco Use Types Packs/Day Years Used Date Smoking Tobacco: Former Cigarettes Q uit: 06/11/2018 Smokeless Tobacco: Never Alcohol Use Standard Drinks/Week Comments Yes 0 (1 standard drink = 0.6 oz pur e alcohol) socially Sex and Gender Information Value Date Recorded Sex Assigned at Male 05/10/2019 1:27 AM MACHINE PRECISION ENGRAVER Legal Sex Male 7:38 PM CDT Gender Identity Male 05/10/2019 1:27 AM MACHINE PRECISION ENGRAVER Sexual Orientation Not on file COVID-19 Exposure [...] Assessment Author Status No 05/15/2019 12:02 PM MACHINE PRECISION ENGRAVER 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 Answer Date of Assessment Author Status No 05/15/2019 12:02 PM MACHINE PRECISION ENGRAVER Acti ve * Do you have serious [...] Author Return home General No Zayra Kidd, COATER ASSOCIATE Note: Plan to return home with significant other. No DME or home health needed at this time. documented as of this encounter Visit Diagnoses Not on filedocumented in this encounter Care Teams Trim Carpenter Relationship Specialty Start Date End Date Jose Mo MD [address] [address] PCP - General INTERNAL MEDICINE 05/09/19 documented as of this encounter
--- OUTSIDE RECORDS SUMMARY | 2024-03-26 17:00 | XMS_ITS | Encounter Summary ---
Author Organization [facility] Address [address] [place] [address]. [place], [place] [address] [place] [address] Care Team Providers Care Metal Bumper Name Role Phone Jose Mo MD Primary Care Provider [phone] Reason for Visit * Reason Onset Date Comments Hospital Follow Up 06/07/2019 Encounter Details Date Type Department Care Team (Late st Contact Info) Description 06/07/2019 Telephone [facility] Care Management [address] [place] [address] Zayra Kidd, [facility] Hospital Follow Up Social History Tobacco Use Types Packs/Day Years Used Date Smoking Tobacco: Former Cigarettes Q uit: 06/11/2018 Smokeless Tobacco: Never Alcohol Use Standard Drinks/Week Comments Yes 0 (1 standard drink = 0.6 oz pur e alcohol) socially Sex and Gender Information Value Date Recorded Sex Assigned at Male 05/10/2019 1:27 AM BACK HOE OPERATOR Legal Sex Male 7:38 PM CDT Gender Identity Male 05/10/2019 1:27 AM BACK HOE OPERATOR Sexual Orientation Not on file documented as of this encounter Functional Status * RETIRED Are you deaf or do you have serious difficulty hearing Answer Date of Assessment Author Status No 05/15/2019 12:02 PM BACK HOE OPERATOR 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 Answer Date of Assessment Author Status No 05/15/2019 12:02 PM BACK HOE OPERATOR Acti ve * Do you have [...] Author Return home General No Zayra Kidd, BUS OPERATOR Note: Plan to return home with significant other. No DME or home health needed at this time. documented as of this encounter Visit Diagnoses Not on filedocumented in this encounter Care Teams Metal Bumper Relationship Specialty Start Date End Date Jose Mo MD [address] [address] PCP - General INTERNAL MEDICINE 05/09/19 documented as of this encounter
--- OUTSIDE RECORDS SUMMARY | 2024-03-26 17:00 | XMS_ITS | Encounter Summary ---
Author Organization [facility] Address [address] [place] [address]. [place], [place] [id number] [place] [address] Care Team Providers Care Sand System Operator Name Role Phone Jose Mo MD Primary Care Provider [phone] Reason for Visit * Reason Onset Date Comments Hospital Follow Up 05/31/2019 Encounter Details Date Type Department Care Team (Late st Contact Info) Description 05/31/2019 Telephone [facility] Care Management [address] [place] [address] Zayra Kidd, [facility] Hospital Follow Up Social History Tobacco Use Types Packs/Day Years Used Date Smoking Tobacco: Former Cigarettes Q uit: 06/11/2018 Smokeless Tobacco: Never Alcohol Use Standard Drinks/Week Comments Yes 0 (1 standard drink = 0.6 oz pur e alcohol) socially Sex and Gender Information Value Date Recorded Sex Assigned at Male 05/10/2019 1:27 AM INNOVATION MANAGER Legal Sex Male 7:38 PM CDT Gender Identity Male 05/10/2019 1:27 AM INNOVATION MANAGER Sexual Orientation Not on file documented as of this encounter Functional Status * RETIRED Are you deaf or do you have serious difficulty hearing Answer Date of Assessment Author Status No 05/15/2019 12:02 PM INNOVATION MANAGER 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 Answer Date of Assessment Author Status No 05/15/2019 12:02 PM INNOVATION MANAGER Acti ve * Do you have serious [...] Author Return home General No Zayra Kidd, CHEESE BLENDER Note: Plan to return home with significant other. No DME or home health needed at this time. documented as of this encounter Visit Diagnoses Not on filedocumented in this encounter Care Teams Sand System Operator Relationship Specialty Start Date End Date Jose Mo MD [address] [address] PCP - General INTERNAL MEDICINE 05/09/19 documented as of this encounter
--- OUTSIDE RECORDS SUMMARY | 2024-03-26 17:00 | XMS_ITS | Encounter Summary ---
Author Organization [facility] Address [address] [place] [address]. [place], [place] [address] [place] [address] Care Team Providers Care Special Event Assistant Name Role Phone Jose Mo MD Primary Care Provider [phone] Saroj Griffin MD Unavailable [phone] Ania Topete NP Unavailable [phone] Reason for Visit * Reason Onset Date Comments Follow Up Call 06/17/2019 Encounter Details Date Type Department Care Team (Late st Contact Info) Description 06/17/2019 Telephone [facility] Med/Surg [address] [place] [address] Denny Wilde, HOLA Follow Up Call Social History Tobacco Use Types Packs/Day Years Used Date Smoking Tobacco: Former Cigarettes Q uit: 06/11/2018 Smokeless Tobacco: Never Alcohol Use Standard Drinks/Week Comments Yes 0 (1 standard drink = 0.6 oz pur e alcohol) socially Sex and Gender Information Value Date Recorded Sex Assigned at Male 05/10/2019 1:27 AM WARP DOFFER Legal Sex Male 7:38 PM CDT Gender Identity Male 05/10/2019 1:27 AM WARP DOFFER Sexual Orientation Not on file documented as of this encounter Functional Status * RETIRED Are you deaf or do you have serious difficulty hearing Answer Date of Assessment Author Status No 05/15/2019 12:02 PM WARP DOFFER Acti ve * RETIRED Are you blind [...] Author Return home General No Zayra Kidd, TRADER Note: Plan to return home with significant other. No DME or home health needed at this time. documented as of this encounter Visit Diagnoses Not on filedocumented in this encounter Additional Health Concerns Infection Onset Date Last Indicated Resolved Time COVID-19 Rule Out 12/29/2020 12/29/2020 12/29/2020 3:34 PM CDT COVID-19 Rule Out 03/13/2021 03/13/2021 03/13/2021 2:37 PM WARP DOFFER COVID-19 Confirmed 03/13/2021 03/13/2021 12:32 AM WARP DOFFER COVID-19 Rule Out 07/27/2023 07/27/2023 07/27/2023 8:33 PM CDT documented as of this encounter Care Teams Special Event Assistant Relationship Specialty Start Date End Date Jose Mo MD [address] [address] PCP - General INTERNAL MEDICINE 05/09/19 [place] [address] [place] [address] Consulting Physician UROLOGY 11/20/23 Ania Topete NP [address] [phone] NURSE PRACTITIONER 11/20/23 documented as of this encounter
--- OUTSIDE RECORDS SUMMARY | 2024-03-26 17:00 | XMS_ITS | Encounter Summary ---
Author Organization [facility] Address [address] [place] [address]. [place], [place] [address] [place] [address] Care Team Providers Care Creative Developer Name Role Phone Jose Mo MD Primary Care Provider [phone] Reason for Visit * Reason Comments Urinary Symptoms Encounter Details Date Type Department Care Team (Late st Contact Info) Description 06/15/2022 7:37 PM GRINDER BRAKE LINING - 06/15/2022 9:09 PM GRINDER BRAKE LINING Emergency [facility] Emergency Room [address] [place] [address] Esteban Sterling MD [address] [place] [address] Urinary Symptoms Discharge Disposition: Home or Self [...] Sex Assigned at Male 05/10/2019 1:27 AM GRINDER BRAKE LINING Legal Sex Male 7:38 PM CDT Gender Identity Male 05/10/2019 1:27 AM GRINDER BRAKE LINING Sexual Orientation Not on file COVID-19 Exposure Response Date Recorded In the last 10 days, have yo u been in contact with someone who was confirmed or suspected to have Coronavirus/COVID-19? No / Unsure 06/15/2022 7:32 PM GRINDER BRAKE LINING documented as of this encounter Last Filed Vital Signs Vital Sign Reading Time Taken Comments Blood Pressure 126/73 06/15/2022 9:08 PM GRINDER BRAKE LINING Pulse 85 06/15/2022 9:08 PM GRINDER BRAKE LINING Temperature 36.3 ??C (97.4 ??F) 06/15/2022 9:08 PM CS T Respiratory Rate 18 06/15/2022 9:08 PM GRINDER BRAKE LINING Oxygen Saturation 98% 06/15/2022 9:08 PM GRINDER BRAKE LINING Inhaled Oxygen Concentration - - Weight 113.4 kg (250 lb) 06/15/2022 7:40 PM GRINDER BRAKE LINING Height 170.2 cm (5' 7 ) 06/15/2022 7:40 PM GRINDER BRAKE LINING Body Mass Index 39.16 06/15/2022 7:40 PM GRINDER BRAKE LINING documented in this encounter Functional Status * RETIRED Are you deaf or do you have serious difficulty hearing Answer Date of Assessment Author Status No 05/15/2019 12:02 PM GRINDER BRAKE LINING 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 Answer Date of Assessment Author Status No 05/15/2019 12:02 PM GRINDER BRAKE LINING Acti ve * Do you have serious [...] this encounter Discharge Instructions * Discharge Instructions* Esteban Sterling MD - 06/15/2022 8:00 PM GRINDER BRAKE LINING Take the antibiotic as directed until gone. Follow up with your primary care and urologist as discussed. Return to the ER if you have worsening symptoms. DER BRAKE LINING documented in this encounter Medications at Time of Discharge carBAMazepine XR 200 MG 12 hr tablet Take 1,000 mg by mouth nightly at bedtime. 04/29/2019 cyclobenzaprine 10 MG tablet Take 10 mg by mouth 2 (two) times daily as needed for Muscle Spasms. 09/01/2018 esomeprazole 40 MG capsule Take 40 mg by mouth daily. 04/27/2019 HYDROcodone-acet aminophen (NORCO) 5-325 MG tabletIndication s:Acute [...] (750 mg total) by mouth daily for 10 days. 10 tablet 06/15/2022 06/25/2022 documented as of this encounter ED Notes * Esteban Sterling MD - 06/15/2022 9:09 PM CST Chief Complaint Chief Complaint Patient presents with ??? Urinary Symptoms History of Present Illness 52-year-old male with a history of recurrent UTIs of unclear etiology currently being followed by urology for the same. Patient presents today with complaints of urinary frequency and urgency. Patient suspects there may have been a small amount of blood in his urine earlier today. He does have painwith urination. This is a typical presentation of his UTIs. Patient reports that he now presents much earlier than in the past because he is aware that early treatment prevents sepsis and worsening of his overall presentations. He does take fosfomycin weekly and did take a dose today. He denies other symptoms aside from his isolated urinary complaints. Denies flank pain, nausea, vomiting, generalized weakness. Medical History ALLERGIES: Allergies Allergen Reactions ??? Hydromorphone Hives and Other (see comment) ??? Sulfa Antibiotics Unknown MEDICATIONS: Prior to Admission medications Medication Sig Start Date End Date Taking? Authorizing Provider levoFLOXacin (LEVAQUIN) 750 MG tablet Take 1 tablet (750 mg total) by mouth daily for 10 days. 06/15/22 06/25/22 Yes Esteban Sterling MD mirabegron ER (MYRBETRIQ) 25 MG 24 hr tablet Take 1 tablet (25 mg total) by mouth daily. Yes GENERICPROVIDER, DEFAULT HISTORY carBAMazepine XR 200 MG 12 hr tablet [...] Never Review of Systems Review of Systems Physical Exam Filed Vitals: 06/15/22 1940 06/15/228 BP: (!) 155/59 126/73 Pulse: 78 85 Resp: 18 18 Temp: 97.5 ??F (36.4 ??C) 97.4 ??F (36.3 ??C) SpO2: 99% 98% Weight: 113.4 kg (250 lb) Height: 5' 7 (1.702 m) Physical Exam Vitals and nursing note reviewed. Constitutional: General: He is not in acute distress. Appearance: He is well-developed. HENT: Head: Normocephalic and atraumatic. Right Ear: External ear normal. Left Ear: External ear normal. Nose: Nose normal. Eyes: General: No scleral icterus. Pupils: Pupils are equal, round, and reactive to light. Cardiovascular: Rate and Rhythm: Normal rate and regular rhythm. Pulses: Normal pulses. Heart sounds: Normal heart sounds. Pulmonary: Effort: Pulmonary effort is normal. No respiratory distress. Breath sounds: Normal breath sounds. No stridor. No wheezing. Abdominal: General: Bowel sounds are normal. There is no distension. Palpations: Abdomen is soft. Musculoskeletal: General: No deformity. Normal range of motion. Cervical back: Normal range of motion and neck supple. Skin: General: Skin is warm and dry. Capillary Refill: Capillary refill takes less than 2 seconds. Findings: No rash. Neurological: Mental Status: He is alert and oriented to person, place, and time. Cranial Nerves: No cranial nerve deficit. Psychiatric: Mood and Affect: Mood normal. Behavior: Behavior normal. Diagnostic Studies / Procedures ELECTROCARDIOGRAMS: No results found for this visit on 06/15/22. LABORATORY STUDIES: Results for orders placed or performed during the hospital encounter of 06/15/22 URINALYSIS, AUTO, COMPLETE Result Value Ref Range COLOR (U) YELLOW TRANSPARENCY CLEAR SPECIFIC GRAVITY (U) 1.020 1.000 - 1.030 U PH 6.0 5.0 - 9.0 LEUKOCYTES (U) 1+ (A) NEGATIVE NITRITES NEGATIVE NEGATIVE PROTEIN (U) NEGATIVE NEGATIVE URINE GLUCOSE NEGATIVE NEGATIVE KETONES (U) NEGATIVE NEGATIVE BILIRUBIN (U) NEGATIVE NEGATIVE BLOOD NEGATIVE NEGATIVE WBC/HPF 25-50 0 - 5 /HPF RBC/HPF 0-5 0 - 5 /HPF EPI/HPF RARE /HPF CULTURE & SENSITIVITY INDICATED? SPECIMEN SETUP FOR CULTURE IMAGING STUDIES No orders to display ED Course / Medical Decision Making Medical Decision Making 52-year-old male with recurrent UTIs here with complaints consistent with UTI as have presented in the past. Patient is partially treated due to the fosfomycin dose. He reports that he typically requires Levaquin as an outpatient if his symptoms develop. I discussed at length diagnostic testing in the setting of recurrent UTI especially as early as the patient has presented today. I have discussed that labs given his history are unlikely to significantly modify the management overall. I have recommended a single p.o. dose of Levaquin here as well as a prescription for the same at home. Patient agrees with this plan as does his who is present in the room. Patient discharged home after ur inalysis demonstrated evidence of early UTI. Prescription sent. Patient instructed to contact his urologist on Friday to discuss ongoing symptoms. UTI (urinary tract infection): acute illness or injury Amount and/or Complexity of Data Reviewed Independent Historian: spouse Details: present in room as above Labs: ordered. Decision-making details documented in ED Course. Risk Prescription drug management. Clinical Impression UTI (urinary tract infection) (Primary) Disposition: Discharge Esteban Sterling MD 06/16/22 0352 * Cathy Harvey RN - 06/15/2022 7:56 PM CST Pt presents to ED c/o dysuria, hematuria, urinary frequency started 06/13. Rates pain at this time as 2/10. Reports hx of UTIs. Denies fever, chills, nausea, vomiting, abdominal pain. DER BRAKE LINING documented in this encounter Plan of Treatment Not on file documented as of this encounter Goals Goal Patient Goal Type Associated Problems Recent Progress Patient-Stated? Author Return home General No Zayra Kidd MSW Note: Plan to return home with significant other. No DME or home health needed at this time. documented as of this encounter Procedures Procedure Name Priority Date/Time Associated Diagnosis Comments URINE BACTERIA CULTURE Routine 06/15/2022 8:18 PM GRINDER BRAKE LINING URINALYSIS, AUTO, COMPLETE STAT 06/15/2022 8:18 PM GRINDER BRAKE LINING documented in this encounter Results * CULTURE URINE (06/15/2022 8:18 PM GRINDER BRAKE LINING) SPEC DESCRIPTION URINE VOIDED 06/15/2022 8:51 PM GRINDER BRAKE LINING [facility] SPECIAL REQUESTS NO SPECIAL REQUEST 06/15/2022 8:51 PM GRINDER BRAKE LINING [facility] CULTURE RESULT NO GROWTH 2 DAYS 06/18/2022 7:32 AM CDT [facility] URINE SPECIMEN FROM URETHRA / Unknown 06/15/2022 8:18 PM GRINDER BRAKE LINING 06/15/2022 8:50 PM GRINDER BRAKE LINING Esteban Sterling MD MICROBIOLOGY - GENERAL ORD ERABLES Final Result [facility] [address] [place] [address], [place] [phone] [facility] [address] [place] [address], [place] [phone] * (ABNORMAL) URINALYSIS, AUTO, COMPLETE (06/15/2022 8:18 PM GRINDER BRAKE LINING) COLOR (U) YELLOW 06/15/2022 8:50 PM GRINDER BRAKE LINING [facility] TRANSPARENCY CLEAR 06/15/2022 8:50 PM GRINDER BRAKE LINING [facility] SPECIFIC GRAVITY (U) 1.020 1.000 - 1.030 06/15/2022 8:50 PM GRINDER BRAKE LINING [facility] U PH 6.0 5.0 - 9.0 06/15/2022 8:50 PM GRINDER BRAKE LINING [facility] LEUKOCYTES (U) 1+(A) NEGATIVE 06/15/2022 8:50 PM GRINDER BRAKE LINING [facility] NITRITES NEGATIVE NEGATIVE 06/15/2022 8:50 PM GRINDER BRAKE LINING [facility] PROTEIN (U) NEGATIVE NEGATIVE 06/15/2022 8:50 PM GRINDER BRAKE LINING [facility] URINE GLUCOSE NEGATIVE NEGATIVE 06/15/2022 8:50 PM [facility] KETONES MG/DL (U) NEGATIVE NEGATIVE 06/15/2022 8:50 PM [facility] BILIRUBIN (U) NEGATIVE NEGATIVE 06/15/2022 8:50 PM GRINDER BRAKE LINING [facility] BLOOD (U) NEGATIVE NEGATIVE 06/15/2022 8:50 PM [facility] WBC/HPF 25-50 0 - 5 /HPF 06/15/2022 8:50 PM [facility] RBC/HPF 0-5 0 - 5 /HPF 06/15/2022 8:50 PM [facility] EPI/HPF RARE /HPF 06/15/2022 8:50 PM [facility] CULTURE & SENSITIVITY INDICATED? SPECIMEN SETUP FOR CULTURE 06/15/2022 8:50 PM [facility] URINE SPECIMEN OBTAINED BY CLEAN CATCH PROCEDURE / Unknown 06/15/2022 8:18 PM GRINDER BRAKE LINING us Esteban Sterling MD URINE ORDERABLES Final Res ult [facility] [address] [place] [address], documented in this encounter Visit Diagnoses Diagnosis UTI (urinary tract infection)- Primary Urinary tract infection, site not specified documented in this encounter Administered Medications Inactive Administered Medications - up to 3 most recent administrations Medication Order MAR Action Action Date Dose Rate Site levoFLOXacin (LEVAQUIN) tablet 750 mg 750 mg, Oral, Once, 1 dose, On 06/15/22 at 1999 Given 06/15/2022 8:03 PM GRINDER BRAKE LINING 750 mg documented in this encounter Active and Recently Administered Medications Times are shown in GRINDER BRAKE LINING. Scheduled Medication Order 06/13/2022 06/14/2022 06/15/2022 levoFLOXacin (LEVAQUIN) tablet 750 mg (COMPLETED) 750 mg, Oral, Once, 1 dose, On 06/15/22 at 1999 2002 (Given - Provid er: Cathy Harvey RN) documented in this encounter Care Teams Creative Developer Relationship Specialty Start Date End Date Jose Mo MD [address] [address] PCP - General INTERNAL MEDICINE 05/09/19 documented as of this encounter
--- OUTSIDE RECORDS SUMMARY | 2024-03-26 17:00 | XMS_ITS | Encounter Summary ---
Author Organization [facility] Address [address] [place] [address]. [place], [place] [address] [place] [address] Care Team Providers Care Mobile Paint Specialist Name Role Phone Jose Mo MD Primary Care Provider [phone] Encounter Details Date Type Department Care Team (Latest Contact Info) Description 01/23/2021 Travel Social History Tobacco Use Types Packs/Day Years Used Date Smoking Tobacco: Former Cigarettes Q uit: 06/11/2018 Smokeless Tobacco: Never Alcohol Use Standard Drinks/Week Comments Yes 0 (1 standard drink = 0.6 oz pur e alcohol) socially Sex and Gender Information Value Date Recorded Sex Assigned at Male 05/10/2019 1:27 AM DIRECTOR FINANCIAL SERVICES Legal Sex Male 7:38 PM CDT Gender Identity Male 05/10/2019 1:27 AM DIRECTOR FINANCIAL SERVICES Sexual Orientation Not on file COVID-19 Exposure Response Date Recorded In the last month, have you been in contact with someone who was confirmed or suspected to have Coronavirus / COVID-19? No / Unsure 01/23/2021 6:46 PM CDT documented as of this encounter Functional Status * RETIRED Are you deaf or do you have serious difficulty hearing Answer Date of Assessment Author Status No 05/15/2019 12:02 PM DIRECTOR FINANCIAL SERVICES 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 Answer Date of Assessment Author Status No 05/15/2019 12:02 PM DIRECTOR FINANCIAL SERVICES Acti ve * Do you have serious difficulty walking or climbing stairs? Answer Date of Assessment Author Status No 05/15/2019 12:02 PM DIRECTOR FINANCIAL SERVICES Cassie Dawn RN Active * Do you [...] Author Return home General No Zayra Kidd, MAINTENANCE JOURNEYMAN Note: Plan to return home with significant other. No DME or home health needed at this time. documented as of this encounter Visit Diagnoses Not on filedocumented in this encounter Care Teams Mobile Paint Specialist Relationship Specialty Start Date End Date Jose Mo MD [address] [address] PCP - General INTERNAL MEDICINE 05/09/19 documented as of this encounter
--- OUTSIDE RECORDS SUMMARY | 2024-03-26 17:00 | XMS_ITS | Referral Summary ---
Author Organization [facility] Address [address] [place] [address] Care Team Providers Care Exhauster Name Role Phone Jose Mo MD Primary Care Provider [phone] Source Comments [facility],non-owned Affiliates and Associated Physician Practices is amultiple site organization consisting of ambulatory clinics and hospital sitesin [place], [place], [place]. This disclosure is being madepursuant to the Care Everywhere program and may not contain all information available regarding this patient. Last updated 17.[facility] Encounters Date Type Department Care Team Description 03/24/[address] [facility] - Pathology Lab [address] [place] [address] Weston Garces MD Illness, unspecified from Last 3 Months Active Problems Problem Noted Date Diagnosed Date Mesenteric mass 03/23/2024 Social History Tobacco Use Types Packs/Day Years Used Date Smoking Tobacco: Never Assessed Sex and Gender Information Value Date Recorded Sex Assigned at Not on file Gender Identity Not on file Sexual Orientation Not on file Plan of Treatment Not on file Procedures Procedure Name Priority Date/Time Associated Diagnosis Comments PATHOLOGY TISSUE Routine 03/23/2024 1:43 PM DENTURES LAB TECHNICIAN Illness, unspecified from Last 3 Months Results * PATHOLOGY TISSUE (03/23/2024 1:43 PM DENTURES LAB TECHNICIAN) Case Report Surgical Pathology Report ? Case: [id number] ? Authorizing Provider: ??Weston Garces MD ?Collected: ? 03/23/2024 01:43 PM ? Ordering Location: ? [facility] - ??Received: ?03/24/2024 02:17 PM ? Pathology Lab ? Pathologist: ? Dk Enciso MD ? Specimen: ?Gastric Biopsy ? 03/25/2024 4:23 PM [facility] Final Diagnosis Ileal mass, biopsy: - Diffuse large B-cell lymphoma, non-germinal center derived 03/25/2024 4:23 PM [facility] Microscopic Description and Comment The H&E stained sections show a mucosal infiltrate of sheets of large lymphoid cells with hyperchromatic chromatin and few interspersed apoptotic cells. A low-grade component is not appreciated. Immunohistochemistry performed at [facility] Pathology shows the lymphoma cells to [...] epithelial and endothelial nuclei. 03/25/2024 4:23 PM [facility] Clinical History Ilial mass. 03/25/2024 4:23 PM [facility] Materials Received Received are 2 slide(s) and 1 block(s) labeled [id number] along with a copy of the outside pathology report. [place] [address]. All original materials are returned to the referring institution, along with a copy of our final report. 03/25/2024 4:23 PM [facility] Pathologist Location at [facility] 03/25/2024 4:23 PM [facility] Disclaimer The performance characteristics of all immunohistochemical and indirect immunofluorescence stains (if any) cited in this report were determined by the Histopathology Laboratory of [facility]. Some of these tests were developed by [...] the attending (teaching) pathologist. 03/25/2024 4:23 PM [facility] Embedded Images 03/25/2024 4:23 PM [facility] Pathology/Cytolo gy GASTRIC BIOPSY SPECIMEN / Unknown 03/23/2024 1:43 PM DENTURES LAB TECHNICIAN 03/24/2024 2:17 PM DENTURES LAB TECHNICIAN Weston Garces MD LAB - PATHOLOGY/CYTO LOGY ORDERABLES [facility] [address] [place] [address], [facility] [phone] from Last 3 Months Care Teams Exhauster Relationship Specialty Start Date End Date Jose Mo MD PCP - General 03/21/08
--- OUTSIDE RECORDS SUMMARY | 2024-03-26 17:00 | XMS_ITS | Encounter Summary ---
Author Organization [facility] Address [address] [place] [address]. [place], [place] [id number] [place] [id number] Care Team Providers Care Auto Appraiser Name Role Phone Jose Mo MD Primary Care Provider [phone] Encounter Details Date Type Department Care Team (Latest Contact Info) Description 05/22/2019 Travel Social History Tobacco Use Types Packs/Day Years Used Date Smoking Tobacco: Former Cigarettes Q uit: 06/11/2018 Smokeless Tobacco: Never Alcohol Use Standard Drinks/Week Comments Yes 0 (1 standard drink = 0.6 oz pur e alcohol) socially Sex and Gender Information Value Date Recorded Sex Assigned at Male 05/10/2019 1:27 AM SMOKING PIPE DRILLER AND THREADER Legal Sex Male 7:38 PM CDT Gender Identity Male 05/10/2019 1:27 AM SMOKING PIPE DRILLER AND THREADER Sexual Orientation Not on file documented as of this encounter Functional Status * RETIRED Are you deaf or do you have serious difficulty hearing Answer Date of Assessment Author Status No 05/15/2019 12:02 PM SMOKING PIPE DRILLER AND THREADER 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 Answer Date of Assessment Author Status No 05/15/2019 12:02 PM SMOKING PIPE DRILLER AND THREADER Acti ve * Do you have serious [...] Assessment Author Status No 05/15/2019 12:02 PM aCssie Perdomo RN Active documented as of this [...] Author Return home General No Zayra Kidd, GROUP CAPTAIN Note: Plan to return home with significant other. No DME or home health needed at this time. documented as of this encounter Visit Diagnoses Not on filedocumented in this encounter Care Teams Auto Appraiser Relationship Specialty Start Date End Date Jose Mo MD [address] [address] PCP - General INTERNAL MEDICINE 05/09/19 documented as of this encounter
--- OUTSIDE RECORDS SUMMARY | 2024-03-26 17:00 | XMS_ITS | Clinical Summary ---
Author Organization [facility] Address [address] [place] [address]. [place], [place] [address] [place] [address] Care Team Providers Care Supervisor [place] Name Role Phone Jose Mo MD Primary Care Provider [phone] Saroj Griffin MD Unavailable [phone] Ania Topete NP Unavailable [phone] Allergies Active Allergy Reactions Criticality Noted Date Comments Hydromorphone Hives,Other (see comment) Medium 019 Sulfa Antibiotics Unknown 10/18/2012 Medications carBAMazepine XR 200 MG 12 hr tablet Take 1,000 mg by mouth nightly at bedtime. 04/29/2019 Active cyclobenzaprine 10 MG tablet Take 10 mg by mouth 2 (two) times daily as needed for Muscle Spasms. 09/01/2018 Active esomeprazole 40 MG capsule Take 40 mg by mouth daily. 04/27/2019 Active tadalafil 5 MG tablet Take 5 mg by mouth as needed for Erectile Dysfunction. 03/23/2019 Active psyllium 51.7 % packet Take 1 packet by mouth daily. Active methenamine 1 g tablet Take 1 g by mouth 2 (two) times daily with meals. Active HYDROcodone-carlos taminophen (NORCO) 5-325 MG tabletIndicatio ns:Acute Pain < 3 Day Supply Take 1 tablet by mouth every 6 (six) hours as needed for Pain. Indications: Acute Pain < 3 Day Supply 12 tablet 03/23/2022 Active mirabegron ER (MYRBETRIQ) 25 MG 24 hr tablet Take 1 tablet (25 mg total) by mouth daily. Active ondansetron (ZOFRAN) 4 MG tablet Take 1 tablet (4 mg total) by mouth every 8 (eight) hours as needed for Nausea. 12 tablet 07/27/2023 Active fosfomycin (MONUROL) 3 g Pack Take 3 g by mouth once. Active ciprofloxacin (CIPRO) 500 MG tablet Take 1 tablet (500 mg total) by mouth 2 (two) times daily. Take 1 pill twice a day for 5 days PRN for UTI. Active furosemide (LASIX) 20 MG tablet Take 0.5 tablets (10 mg total) by mouth daily. Active Active Problems Problem Noted Date Diagnosed Date Sepsis ([facility]) 05/10/2019 Urinary tract infection 05/09/2019 Epididymitis 05/09/2019 Immunizations Name Administration Dates Next Due Afluria 36 MONTHS+ (Prefille d Syringe IIV4) 05/15/2019(Deferred: Patient/family declined),05/12/2019() Social History Tobacco Use Types Packs/Day Years Used Date Smoking Tobacco: Former Cigarettes Q uit: 06/11/2018 Smokeless Tobacco: Never Tobacco Cessation:Counseling Given: Not Answered Alcohol Use Standard Drinks/Week Comments Not Currently 0 (1 standard drink = 0.6 oz pur e alcohol) socially Sex and Gender Information Value Date Recorded Sex Assigned at Male 05/10/2019 1:27 AM RADIOLOGICAL TECHNICIAN Legal Sex Male 7:38 PM CDT Gender Identity Male 05/10/2019 1:27 AM RADIOLOGICAL TECHNICIAN Sexual Orientation Not on file Last Filed Vital Signs Vital Sign Reading [...] Mass Index 39.16 11/20/2023 1:19 PM CDT Plan of Treatment Health Maintenance Due Date Last Done Comments Colorectal Cancer Screening Colonoscopy (10 Years) 1971 Annual Physical 1974 Hepatitis C 1989 DTaP, Tdap and Td Vaccines (1 - Tdap) 1990 Hepatitis B Vaccines (1 of 3 - 19+ 3-dose series) 1990 Zoster Vaccines (1 of 2) 2021 COVID-19 Vaccine (1 - 2023- season) 2023 Influenza Adult (#1) 2024 02/19/2022, 12/22/2020, 12/24/2019, Additional history exists Meningococcal Vaccine Aged Out No fariba susan eligible based on patient's age to complete this topic Pneumococcal Vaccine: Pediatrics (0 to 5 Years) and At-Risk Patients (6 to 64 Years) Aged Out No longer eligible based on patient's age to complete this topic RSV Immunizations Under 20 Months Aged Out No longer eligible based on patient's age to complete this topic Goals Goal Patient Goal Type Associated Problems Recent Progress Patient-Stated? Author Return home General No Zayra Kidd, PIPELAYING FITTER Note: Plan to return home with significant other. No DME or home health needed at this time. Insurance Care Teams Supervisor [place] Relationship Specialty Start Date End Date Jose Mo MD [address] [address] PCP - General INTERNAL MEDICINE 05/09/19 [place] [address] [place] [address] Consulting Physician UROLOGY 11/20/23 Ania Topete NP [address] [phone] NURSE PRACTITIONER 11/20/23
--- OUTSIDE RECORDS SUMMARY | 2024-03-26 17:00 | XMS_ITS | Encounter Summary ---
Author Organization [facility] Address [address] [place] [address]. [place], [place] [id number] [place] [address] Care Team Providers Care Lining Layer Name Role Phone Jose Mo MD Primary Care Provider Reason for Visit * Reason Comments Urinary Symptoms Encounter Details Date Type Department Care Team (Late st Contact Info) Description 01/23/2021 6:49 PM CDT - 01/23/2021 7:46 PM CDT Emergency [facility] Emergency Room [id number] [place] [address] Orlando Rogel MD [address] [place] [address] Urinary Symptoms Discharge Disposition: Home or Self Care (Routine Discharge) Social History Tobacco Use Types Packs/Day Years Used Date Smoking Tobacco: Former Cigarettes Q uit: 06/11/2018 Smokeless Tobacco: Never Alcohol Use Standard Drinks/Week Comments Yes 0 (1 standard drink = 0.6 oz pur e alcohol) socially Sex and Gender Information Value Date Recorded Sex Assigned at Male 05/10/2019 1:27 AM DATA OPERATIONS DIRECTOR Legal Sex Male 7:38 PM CDT Gender Identity Male 05/10/2019 1:27 AM DATA OPERATIONS DIRECTOR Sexual Orientation Not on file COVID-19 Exposure Response Date Recorded In the last month, have you been in contact with someone who was confirmed or suspected to have Coronavirus / COVID-19? No / Unsure 01/23/2021 6:46 PM CDT documented as of this encounter Last Filed Vital Signs Vital Sign Reading Time Taken Comments Blood Pressure 151/94 01/23/2021 6:52 PM CDT Pulse 87 01/23/2021 6:52 PM CDT Temperature 36.4 ??C (97.6 ??F) 01/23/2021 6:52 PM CD T Respiratory Rate 16 01/23/2021 6:52 PM CDT Oxygen Saturation 97% 01/23/2021 6:52 PM CDT Inhaled Oxygen Concentration - - Weight 111.1 kg (245 lb) 01/23/2021 6:52 PM CDT Height 172.7 cm (5' 8 ) 01/23/2021 6:52 PM CDT Body Mass Index 37.25 01/23/2021 6:52 PM CDT documented in this encounter Functional Status * RETIRED Are you deaf or do you have serious difficulty hearing Answer Date of Assessment Author Status No 05/15/2019 12:02 PM DATA OPERATIONS DIRECTOR 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 Answer Date of Assessment Author Status No 05/15/2019 12:02 PM DATA OPERATIONS DIRECTOR Acti ve * Do you have serious [...] cannot be sent through Care Everywhere. * Dysuria Discharge Instructions, Adult (Vietnamese) documented in this encounter Medications at Time [...] daily for 10 days. 40 capsule 01/23/2021 1 hydrocortisone 2.5 % cream KENY TOPICALLY AA PRN 06/24/2018 1 MONUROL 3 g Pack MX AND DRK 3 GRAMS PO Q 2 WKS 04/29/2019 1 documented as of this encounter ED Notes * Orlando Rogel MD - 01/23/2021 7:32 PM CDT Chief Complaint Chief Complaint Patient presents with ??? Urinary Symptoms History of Present Illness 50 yo M pw dysuria & nausea since last night. Recently treated for UTI with 10 day course of Levaquin. 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 Denies fever, flank pain, vomiting. No alleviating or exacerbating factors. Currently sx are mild Medical History ALLERGIES: Allergies Allergen Reactions ??? Sulfa Antibiotics Unknown MEDICATIONS: Prior to Admission medications Medication Sig Start Date End Date Taking? Authorizing Provider cephALEXin (KEFLEX) 500 MG capsule Take 1 capsule (500 mg total) by mouth 4 (four) times daily for 10 days. 01/23/21 02/02/21 Yes Orlando Rogel MD carBAMazepine XR 200 MG 12 hr [...] of Systems Constitutional: Negative for fever. Gastrointestinal: Positive for nausea. Negative for vomiting. Genitourinary: Positive for dysuria. All other systems reviewed and are negative. Physical Exam Filed Vitals: 01/23/21 1852 BP: (!) 151/94 Pulse: 87 Resp: 16 Temp: 97.6 ??F (36.4 ??C) TempSrc: Temporal SpO2: 97% Weight: 111.1 kg (245 lb) Height: 5' 8 (1.727 m) Physical Exam Vitals and nursing note reviewed. Constitutional: General: He is not in acute distress. Appearance: Normal appearance. He is not ill-appearing or toxic-appearing. HENT: Head: Normocephalic and atraumatic. Nose: Nose normal. Mouth/Throat: Mouth: Mucous membranes are moist. Eyes: Extraocular Movements: Extraocular movements intact. Conjunctiva/sclera: Conjunctivae normal. Cardiovascular: Rate and Rhythm: Normal rate. Pulses: Normal pulses. Pulmonary: Effort: Pulmonary effort is normal. No respiratory distress. Abdominal: General: There is no distension. Palpations: Abdomen is soft. Tenderness: There is no abdominal tenderness. Musculoskeletal: General: Normal range of motion. Cervical back: Normal range of motion and neck supple. Skin: General: Skin is warm and dry. Capillary Refill: Capillary refill takes less than 2 seconds. Neurological: Mental Status: He is alert and oriented to person, place, and time. Mental status is at baseline. Psychiatric: Mood and Affect: Mood normal. Diagnostic Studies / Procedures ELECTROCARDIOGRAMS: No results found for this visit on 01/23/21. LABORATORY STUDIES: Results for orders placed or performed during the hospital encounter of 01/23/21 URINALYSIS WI REFLEX TO CULTURE Specimen: URINE, CLEAN CATCH Result Value Ref Range COLOR (U) YELLOW TRANSPARENCY CLEAR Specific [place] (U) 1.015 1.000 - 1.030 U PH 6.0 5.0 - 9.0 LEUKOCYTE ESTERASE NEGATIVE NEGATIVE NITRITES NEGATIVE NEGATIVE PROTEIN (U) NEGATIVE NEGATIVE URINE GLUCOSE NEGATIVE NEGATIVE U KETONES NEGATIVE NEGATIVE BILIRUBIN (U) NEGATIVE NEGATIVE BLOOD NEGATIVE NEGATIVE WBC/HPF 0-5 0 - 5 /HPF RBC/HPF 0-5 0 - 5 /HPF EPI/HPF FEW /HPF BACTERIA (URINE) RARE /HPF IMAGING STUDIES No orders to display ED Course / Medical Decision Making MDM Number of Diagnoses or Management Options Dysuria Diagnosis management comments: 50 yo M pw recurrent dysuria - reviewed previous urine culture showing sensitivity to Keflex. No systemic signs or symptoms at this time. Stable for dc with oral abx & outpt urology followup Amount and/or Complexity of Data Reviewed Clinical lab tests: reviewed Review and summarize past medical records: yes Patient Progress Patient progress: stable Clinical Impression Dysuria (Primary) Disposition: Discharge Orlando Rogel MD 01/23/211954 * Kiana Maddox RN - 01/23/2021 6:49 PM CDT Patient states he is having burning with urination. States he gets them frequently. documented in this encounter Plan of Treatment Not on file documented as of this encounter Goals Goal Patient Goal Type Associated Problems Recent Progress Patient-Stated? Author Return home General No Zayra Kidd, MAMMAL CONTROL AGENT Note: Plan to return home with significant other. No DME or home health needed at this time. documented as of this encounter Procedures Procedure Name Priority Date/Time Associated Diagnosis Comments URINALYSIS WI REFLEX TO CULTURE STAT 01/23/2021 7:02 PM CDT documented in this encounter Results * URINALYSIS WI REFLEX TO CULTURE (01/23/2021 7:02 PM CDT) COLOR (U) YELLOW 01/23/2021 7:19 PM CDT [facility] TRANSPARENCY CLEAR 01/23/2021 7:19 PM CDT [facility] SPECIFIC GRAVITY (U) 1.015 1.000 - 1.030 01/23/2021 7:19 PM CDT [facility] U PH 6.0 5.0 - 9.0 01/23/2021 7:19 PM CDT [facility] LEUKOCYTES (U) NEGATIVE NEGATIVE 01/23/2021 7:19 PM CDT [facility] NITRITES NEGATIVE NEGATIVE 01/23/2021 7:19 PM CDT [facility] PROTEIN (U) NEGATIVE NEGATIVE 01/23/2021 7:19 PM CDT [facility] URINE GLUCOSE NEGATIVE NEGATIVE 01/23/2021 7:19 PM T [facility] KETONES MG/DL (U) NEGATIVE NEGATIVE 01/23/2021 7:19 PM CDT [facility] BILIRUBIN (U) NEGATIVE NEGATIVE 01/23/2021 7:19 PM T [facility] BLOOD (U) NEGATIVE NEGATIVE 01/23/2021 7:19 PM CDT [facility] WBC/HPF 0-5 0 - 5 /HPF 01/23/2021 7:19 PM CDT [facility] RBC/HPF 0-5 0 - 5 /HPF 01/23/2021 7:19 PM CDT [facility] EPI/HPF FEW /HPF 01/23/2021 7:19 PM CDT [facility] BACTERIA (U) RARE /HPF 01/23/2021 7:19 PM CDT [facility] URINE SPECIMEN OBTAINED BY CLEAN CATCH PROCEDURE / Unknown 01/23/2021 7:02 PM CDT us Sarah Kraft MD URINE ORDERABLES Final Result [facility] [address] [place] [address], documented in this encounter Visit Diagnoses Diagnosis Dysuria- Primary documented in this encounter Care Teams Lining Layer Relationship Specialty Start Date End Date Jose Mo MD [address] [address] PCP - General INTERNAL MEDICINE 05/09/19 documented as of this encounter
--- OUTSIDE RECORDS SUMMARY | 2024-03-26 17:00 | XMS_ITS | Encounter Summary ---
Author Organization [facility] Address [address] [place] [address]. [place], [place] [address] [place] [address] Care Team Providers Care Metal Pattern Maker Name Role Phone Jose Mo MD Primary Care Provider [phone] Reason for Visit * Reason Comments Fever 9 Weeks To 74 Years Encounter Details Date Type Department Care Team (Late st Contact Info) Description 03/13/2021 2:14 PM MANAGER FITNESS - 03/13/2021 3:00 PM [facility] Emergency [facility] Emergency Room [address] [place] [address] Layla Arreaga, [place] [address] Fever 9 Weeks To 74 Years Discharge Disposition: Home or Self Care (Routine Discharge) Social History Tobacco Use Types Packs/Day Years Used Date Smoking Tobacco: Former Cigarettes Q uit: 06/11/2018 Smokeless Tobacco: Never Alcohol Use Standard Drinks/Week Comments Yes 0 (1 standard drink = 0.6 oz pur e alcohol) socially Sex and Gender Information Value Date Recorded Sex Assigned at Male 05/10/2019 1:27 AM MANAGER FITNESS Legal Sex Male 7:38 PM CDT Gender Identity Male 05/10/2019 1:27 AM MANAGER FITNESS Sexual Orientation Not on file COVID-19 Exposure Response Date Recorded In the last month, have you been in contact with someone who was confirmed or suspected to have Coronavirus / COVID-19? No / Unsure 03/13/2021 2:29 PM MANAGER FITNESS documented as of this encounter Last Filed Vital Signs Vital Sign Reading Time Taken Comments Blood Pressure 104/63 03/13/2021 2:30 PM MANAGER FITNESS Pulse 81 03/13/2021 2:29 PM MANAGER FITNESS Temperature 36.6 ??C (97.8 ??F) 03/13/2021 2:29 PM CS T Respiratory Rate 17 03/13/2021 2:29 PM MANAGER FITNESS Oxygen Saturation 96% 03/13/2021 2:30 PM MANAGER FITNESS Inhaled Oxygen Concentration - - Weight 108.9 kg (240 lb) 03/13/2021 2:29 PM MANAGER FITNESS Height 170.2 cm (5' 7 ) 03/13/2021 2:29 PM MANAGER FITNESS Body Mass Index 37.59 03/13/2021 2:29 PM MANAGER FITNESS documented in this encounter Functional Status * RETIRED Are you deaf or do you have serious difficulty hearing Answer Date of Assessment Author Status No 05/15/2019 12:02 PM MANAGER FITNESS 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 Answer Date of Assessment Author Status No 05/15/2019 12:02 PM MANAGER FITNESS Acti ve * Do you have serious [...] this encounter Discharge Instructions * Discharge Instructions* Layla Arreaga, GÓMEZ - 03/13/2021 2:49 PM MANAGER FITNESS Follow discharge instructions carefully. You may take over the counter tylenol or ibuprofen for pain and fever. Return for worsening of symptoms. GER FITNESS * Attachments The following attachments cannot be sent through Care Everywhere. * COVID-19 Discharge Instructions (Guinean) * Preventing the Spread of an Infectious Disease (Guinean) * Tips to Help You [place] in Uncertain Times (Guinean) documented in this encounter Medications at Time [...] as of this encounter ED Notes * GÓMEZ Plascencia - 03/13/2021 3:00 PM CST Chief Complaint Chief Complaint Patient presents with ??? Fever 9 Weeks To 74 Years History of Present Illness 50-year-old male presents to the emergency department today with complaints of fatigue, nasal congestion and low-grade fever. Patient states symptoms started yesterday. Patient states that he has hadpositive exposure from a coworker. Patient has been vaccinated, however has not received his booster. Pt is afebrile upon arrival, no resp distress, denies cough, cp, sob or palpations, denies n/v/d. Pt has been taking otc Nyquil. Medical History ALLERGIES: Allergies Allergen Reactions ??? [...] Years since quittin.7 ??? Smokeless tobacco: Never Used Substance Use Topics ??? Alcohol use: Yes Comment: socially ??? Drug use: Never Review of Systems Review of Systems Constitutional: Positive for fatigue and fever. Negative for chills. HENT: Positive for congestion. Negative for ear pain, postnasal drip, rhinorrhea, sinus pressure, sinus pain and sore throat. Eyes: Negative for pain. Respiratory: Negative for cough, chest tightness, shortness of breath and wheezing. Cardiovascular: Negative for chest pain and palpitations. Gastrointestinal: Negative for abdominal pain, diarrhea, nausea and vomiting. Genitourinary: Negative for dysuria, flank pain, frequency and urgency. Musculoskeletal: Negative for back pain and neck pain. Skin: Negative for rash. All other systems reviewed and are negative. Physical Exam Filed Vitals: 03/13/21 1429 03/13/21 1430 BP: 104/63 104/63 Pulse: 81 Resp: 17 Temp: 97.8 ??F (36.6 ??C) SpO2: 99% 96% Weight: 108.9 kg (240 lb) Height: 5' 7 (1.702 m) Physical Exam Vitals and nursing note reviewed. Constitutional: General: He is not in acute distress. Appearance: Normal appearance. He is well-developed and normal weight. He is not ill-appearing or toxic-appearing. Comments: Pt disabled in wheelchair, no distress HENT: Head: Normocephalic. Right Ear: Tympanic membrane and external ear normal. Left Ear: Tympanic membrane and external ear normal. Nose: Congestion present. Eyes: Conjunctiva/sclera: Conjunctivae normal. Pupils: Pupils are equal, round, and reactive to light. Cardiovascular: Rate and Rhythm: Normal rate and regular rhythm. Pulses: Normal pulses. Heart sounds: Normal heart sounds. Pulmonary: Effort: Pulmonary effort is normal. Breath sounds: Normal breath sounds. Musculoskeletal: General: Normal range of motion. Cervical [...] No results found for this visit on 03/13/21. LABORATORY STUDIES: Results for orders placed or performed during the hospital encounter of 03/13/21 CORONAVIRUS (COVID-19) ANTIGEN [RAPID IN HOUSE TEST] Specimen: NASAL Result Value Ref Range CORONAVIRUS ANTIGEN IA POSITIVE (AA) NEGATIVE Specimen Type NASAL FIRST TEST YES EMPLOYED IN HEALTHCARE NO SYMPTOMATIC DEFINED BY CDC YES DATE OF SYMPTOM ONSET [id number] HOSPITALIZATION STATUS NO RESIDENT OF [facility] NO INFLUENZA A & B Specimen: NASOPHARYNGEAL SWAB Result Value Ref Range Specimen Type NASAL INFLUENZA A NEGATIVE NEGATIVE INFLUENZA B NEGATIVE NEGATIVE IMAGING STUDIES No orders to display ED Course / Medical Decision Making MDM Number of Diagnoses or Management Options Amount and/or Complexity of Data Reviewed Clinical lab tests: ordered and reviewed Independent visualization of images, tracings, or specimens: yes Patient Progress Patient progress: stable ED Course as of Mar 13 1531 Tue Mar 13, 2021 1529 [facility] pt [MS] 1529 MDM- Pt presents with subjective fever, fatigue, and congestion. Onset yesterday, positive exposure from co-worker. Pt has been covid vaccinated, pending booster. Covid test resulted positive today, to remain in quarantine for 10 days from onset of symptoms, increase fluid intake, get plenty of rest, may take otc tylenol or ibuprofen. Pt to return to ed for any worsening of symptoms. [MS] ED Course User Index [MS] GÓMEZ Plascencia Clinical Impression COVID-19 (Primary) Disposition: Discharge GÓMEZ Plascencia 03/13/21 1531 Cosigned by Gem Alejandro MD at 03/13/2021 11:02 PM MANAGER FITNESS GER FITNESS GER FITNESS * Tanisha Shafer RN - 03/13/2021 2:31 PM CST Pt presents to ER with c/o feeling fatigue. Pt requesting covid swab to return back to work. C/o fever, tmax of 101. Afebrile upon arrival. GER FITNESS documented in this encounter Plan of Treatment Not on file documented as of this encounter Goals Goal Patient Goal Type Associated Problems Recent Progress Patient-Stated? Author Return home General No Zayra Kidd, SALES SUPERINTENDENT Note: Plan to return home with significant other. No DME or home health needed at this time. documented as of this encounter Procedures Procedure Name Priority Date/Time Associated Diagnosis Comments CORONAVIRUS (COVID-19) ANTIGEN DIRECT OPTICAL STAT 03/13/2021 2:26 PM MANAGER FITNESS INFLUENZA A & B STAT 03/13/2021 2:26 PM MANAGER FITNESS documented in this encounter Results * INFLUENZA A & B (03/13/2021 2:26 PM MANAGER FITNESS) SPECIMEN TYPE NASAL 03/13/2021 2:32 PM MANAGER FITNESS [facility] INFLUENZA A NEGATIVE NEGATIVE 03/13/2021 2:49 PM MANAGER FITNESS [facility] INFLUENZA B NEGATIVE NEGATIVE 03/13/2021 2:49 PM MANAGER FITNESS [facility] NASOPHARYNGEAL SWAB / Unknown 03/13/2021 2:26 PM MANAGER FITNESS Layla MAGAÑA MICROBIOLOGY - GENERAL OR DERABLES Final Result [facility] [address] [place] [address], [place] [phone] * (ABNORMAL) CORONAVIRUS (COVID-19) ANTIGEN [RAPID IN HOUSE TEST] (03/13/2021 2:26 PM MANAGER FITNESS) CORONAVIRUS ANTIGEN IA POSITIVE(AA ) NEGATIVE 03/13/2021 2:37 PM MANAGER FITNESS [facility] Comment: THIS TEST HAS BEEN AUTHORIZED BY THE FDA UNDER AN EMERGENCY USE AUTHORIZATION (EUA) FOR USE BY AUTHORIZED LABORATORIES. ALERT VALUE CALLED TO AND READ BACK BY: BIGG CLAY ED 1437/DVO SPECIMEN TYPE NASAL 03/13/2021 2:26 PM MANAGER FITNESS [facility] FIRST TEST YES 03/13/2021 2:26 PM MANAGER FITNESS [facility] EMPLOYED IN HEALTHCARE NO 03/13/2021 2:26 PM MANAGER FITNESS [facility] SYMPTOMATIC DEFINED BY CDC YES 03/13/2021 2:26 PM MANAGER FITNESS [facility] DATE OF SYMPTOM ONSET 2021031003/13/2021 2:26 PM MANAGER FITNESS [facility] HOSPITALIZATION STATUS NO 03/13/2021 2:26 PM MANAGER FITNESS [facility] RESIDENT OF [facility] NO 03/13/2021 2:26 PM MANAGER FITNESS [facility] Specimen from nose (specimen) NASAL STRUCTURE / Unknown 03/13/2021 2:26 PM MANAGER FITNESS Layla SENP MICROBIOLOGY - GENERAL OR DERABLES Final Result [facility] [address] [place] [address], [place] [phone] documented in this encounter Visit Diagnoses Diagnosis COVID-19- Primary documented in this encounter Additional Health Concerns Infection Onset Date Last Indicated Resolved Time COVID-19 Rule Out 03/13/2021 03/13/2021 03/13/2021 2:37 PM MANAGER FITNESS COVID-19 Confirmed 03/13/2021 03/13/2021 2 12:32 AM MANAGER FITNESS documented as of this encounter Care Teams Metal Pattern Maker Relationship Specialty Start Date End Date Jose Mo MD [address] [address] PCP - General INTERNAL MEDICINE 05/09/19 documented as of this encounter
--- OUTSIDE RECORDS SUMMARY | 2024-03-26 17:01 | XMS_ITS | Encounter Summary ---
Author Organization [facility] Address [address] [place] [address]. [place], [place] [address] [place] [address] Care Team Providers Care Education Analyst Name Role Phone Unavailable Primary Care Provider Unavailabl e Encounter Details Date Type Department Care Team (Late st Contact Info) Description 02/06/[address] [facility] Emergency Room [address] [place] [address] Social History Tobacco Use Types Packs/Day Years Used Date Smoking Tobacco: Never Assessed Sex and Gender Information Value Date Recorded Sex Assigned at Male 05/10/2019 1:27 AM TACK DRILLER Legal Sex Male 7:38 PM CDT Gender Identity Male 05/10/2019 1:27 AM TACK DRILLER Sexual Orientation Not on file documented as of this encounter Plan of Treatment Not on file documented as of this encounter Visit Diagnoses Not on filedocumented in this encounter
--- OUTSIDE RECORDS SUMMARY | 2024-03-26 17:01 | XMS_ITS | Encounter Summary ---
Author Organization [facility] Address [address] [place] [address]. [place], [place] [address] [place] [address] Care Team Providers Care Design Technician Name Role Phone Unavailable Primary Care Provider Unavailabl e Encounter Details Date Type Department Care Team (Late st Contact Info) Description 12/10/2012 Abstract [facility] Emergency Room [address] [place] [address] Rubi Chen MD Social History Tobacco Use Types Packs/Day Years Used Date Smoking Tobacco: Never Assessed Sex and Gender Information Value Date Recorded Sex Assigned at Male 05/10/2019 1:27 AM JOURNEYMAN PLUMBER Legal Sex Male 7:38 PM CDT Gender Identity Male 05/10/2019 1:27 AM JOURNEYMAN PLUMBER Sexual Orientation Not on file documented as of this encounter Plan of Treatment Not on file documented as of this encounter Visit Diagnoses Diagnosis Other orchitis, epididymitis, and epididymo-orchitis documented in this encounter
--- OUTSIDE RECORDS SUMMARY | 2024-03-26 17:01 | XMS_ITS | Encounter Summary ---
Author Organization [facility] Address [address] [place] [address]. 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
--- OUTSIDE RECORDS SUMMARY | 2024-03-26 17:01 | XMS_ITS | Encounter Summary ---
Author Organization [facility] Address [address] [place] [address]. 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 Rec#: [id number] Birthdate: 1970 Admit/Svce Date: 12/10/2012 Disch Date: Attending Md: RUBI HOLDEN MD CHART DOCUMENT HISTORY AND PHYSICAL EXAMINATION Chief Complaint: Fever, chills. HPI: Patient is a 42-year-old male. He has not been feeling well for last 5 days. He has been having chills and fever on and off. Three days back he did call his urologist and he was started on Ciprofloxacin 500 mg twice daily. He did take it for two days but his fever and chills did not improve. He was more weak and tired. He had nausea and vomiting. Patient was having increased frequency of urine. He does have a history of urinary tract infection in the past and had cystoscopy done in the past. Patient did not notice any hematuria. He did have swelling in left scrotum and his urine output was decreased. He was brought to ER for further evaluation. Allergies: Sulfa Home Medications: Tegretol 400 mg in a.m., 600 mg in p.m. Past Medical History: History of seizures on Tegretol for 12 years. Social History: Lives at home with his girlfriend. Denies smoking. Denies alcohol use. Family History: Unremarkable. Examination: Alert, awake, oriented x3, comfortable, not in any distress. Blood pressure 124/78, pulse is 104, temperature 98.6, respiratory rate is 16, 97% on room air. Eyes: PERRLA. No pallor. No icterus. Neck is supple. Chest is clear to auscultation. CVS: S1S2 regular rate and rhythm. Abdomen: Soft, nontender. Bowel sounds positive. Extremities: No edema. Neuro: Grossly nonfocal. Genitalia Exam: Tenderness and swelling around the scrotum. Labs: WBC 7.7. H H 11.8, 34.4, platelets 187, sodium 137, potassium 3.9, chloride 103, bicarb is 27, BUN is 19, creatinine 0.9, glucose 88. Ultrasound of testicle shows epididymitis. Assessment Plan: 1. Epididymitis on IV Rocephin. Continue with it. Fever is improved. Patient had two episodes of vomiting this morning. he has headaches. We will follow up with the urine culture. 2. History of seizures. Continue with Tegretol. Electronically Signed by Rubi Holden MD 12/12/2012 09:05NA/sp 12/11/2012 6:35 P 12/12/2012 7:12 A Job No: Doc No: [id number] cc: Rubi Holden MD Electronically verified by:Rubi Holden M.D. Dec 14 2012 10:48AM Central Standard Time AGE SALTER documented in this encounter Plan of Treatment Not on file documented as of this encounter Visit Diagnoses Not on filedocumented in this encounter
--- OUTSIDE RECORDS SUMMARY | 2024-03-26 17:01 | XMS_ITS | Encounter Summary ---
Author Organization [facility] Address [address] [place] [address]. 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 Severe epididymoorchitis 2. Severe scrotal swelling, resolved 3. Apparent vitamin B12 deficiency. 4. Elevated sedimentation rate 5. Folic acid deficiency. 6. Pyuria 7. Dehydration Condition on Discharge: Improved Prognosis: Good. Hospital Course: Patient was admitted and put on IV Ceftriaxone one gram q24 hours. He actually experienced fairly rapid improvement. Had night sweats and chills his first night but not the second night. On the day of discharge, his scrotum which had been described as tensely swollen the day before had normal ruggae, was tender only in the right epididymis and appeared to have normal testicular size bilaterally. He was afebrile. His white count was 5,600, hemoglobin 12.7, MCV 91, RDW normal at 12.3. Sed rate 74, reticulocyte count 1.4. Chemistries normal iron level of 91, normal ferritin level of 14, low vitamin B12 level of 262, low folic acid level of 4.08. B12 and folic acid levels weren't available at the time of discharge but are available now at the time of my dictation. Urinalysis on the day of discharge also showed specific gravity of 1.030, 10 to 25 WBC's per high power field, no RBC's, 2+ leukocyte esterase. Urine culture from December 10 was no growth at 2 days. Blood cultures from December 10 were both no growth at 2 days. Discharge Plan: Resume all home medications which according to the list here given are: Carbamazepine 200 mg b.i.d. Psyllium one cap daily Ceftin 500 mg p.o. b.i.d. for 10 days. We gave him an extra dose of Rocephin at 3 p.m. on the day of discharge so he got one at 9 a.m., one at 3 p.m. and he is to follow up with his primary care doctor on Friday and with his urologist within a week. We are told that his primary care doctor is Jose Mo. Electronically Signed by Lobo Walsh MD 12/15/2012 07:45 DN/sp 12/12/2012 12/14/2012 11:54 A Job No: Doc No: [id number] cc: Jose Mo MD Electronically verified by:Rubi Holden M.D. Dec 15 2012 12:09PM Central Standard Time CLE MECHANIC documented in this encounter Plan of Treatment Not on file documented as of this encounter Visit Diagnoses Not on filedocumented in this encounter
--- OUTSIDE RECORDS SUMMARY | 2024-03-26 17:01 | XMS_ITS | Encounter Summary ---
Author Organization [facility] Address [address] [place] [address]. [place] [address] Care Team Providers Care Public Policy Associate Name Role Phone Unavailable Primary Care Provider Unavailabl e Encounter Details Date Type Department Care Team (Latest Contact Info) Description 10/20/2012 Abstract [facility] Social History Tobacco Use Types Packs/Day Years Used Date Smoking Tobacco: Never Assessed Sex and Gender Information Value Date Recorded Sex Assigned at Male 05/10/2019 1:27 AM ENGINEERING TEAM SUPERVISOR Legal Sex Male 7:38 PM CDT Gender Identity Male 05/10/2019 1:27 AM ENGINEERING TEAM SUPERVISOR Sexual Orientation Not on file documented as of this encounter Plan of Treatment Not on file documented as of this encounter Visit Diagnoses Not on filedocumented in this encounter
--- OUTSIDE RECORDS SUMMARY | 2024-03-26 17:01 | XMS_ITS | Encounter Summary ---
Author Organization [facility] Address [address] [place] [address]. [place] [address] Care Team Providers Care President And Chief Operating Officer Name Role Phone Unavailable Primary Care Provider Unavailabl e Encounter Details Date Type Department Care Team (Latest Contact Info) Description 12/10/2012 Abstract [facility] Social History Tobacco Use Types Packs/Day Years Used Date Smoking Tobacco: Never Assessed Sex and Gender Information Value Date Recorded Sex Assigned at Male 05/10/2019 1:27 AM CONSUMER LOAN UNDERWRITER Legal Sex Male 7:38 PM CDT Gender Identity Male 05/10/2019 1:27 AM CONSUMER LOAN UNDERWRITER Sexual Orientation Not on file documented as of this encounter Plan of Treatment Not on file documented as of this encounter Visit Diagnoses Not on filedocumented in this encounter
--- OUTSIDE RECORDS SUMMARY | 2024-03-26 17:01 | XMS_ITS | Encounter Summary ---
Author Organization [facility] Address [address] [place] [address]. 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
--- OUTSIDE RECORDS SUMMARY | 2024-03-26 17:01 | XMS_ITS | Encounter Summary ---
Author Organization [facility] Address [address] [place] [address]. [place], [place] [address] [place] [address] Care Team Providers Care Editorial Intern Name Role Phone Unavailable Primary Care Provider Unavailabl e Encounter Details Date Type Department Care Team (Latest Contact Info) Description 10/18/[address] 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 Legal Sex Male 7:38 PM CDT Gender Identity Male 05/10/2019 1:27 AM GENERAL SALES MANAGER Sexual Orientation Not on file documented as of this encounter Last Filed Vital Signs Vital Sign Reading Time Taken Comments Blood Pressure 120/78 10/18/2012 11:02 AM CDT Pulse 77 10/18/2012 11:02 AM CDT Temperature - - Respiratory Rate - - Oxygen Saturation - - Inhaled Oxygen Concentration - - Weight 100.7 kg (222 lb) 10/18/2012 11:02 AM CDT Height - - Body Mass Index - - documented in this encounter Progress Notes * Nahomy Sanchez, FUAD - 10/18/2012 10:30 AM CDT Chief Complaint RIGHT ANKLE PAIN, HE HAS BROKEN HIS FOOT BEFORE, APPROX 6 MONTHS AGO. PT FELL ONE WEEK AGO LETTING HIS DOG OUTSIDE, HE HAS QUADRAPETIC AND STATES HIS NERVES DO NOT WORK LIKE OURS DO. HE WORE COMPRESSION STOCKINGS WHICH MADE HIS LEGS FEEL WORSE. right ankle pain History of Present Illness Right ankle pain after rolling his right ankle and falling on top of it one week ago. Has continued to work at his daily job standing for 12 hours a day. Iced one day and taking Motrin for pain. Review of Systems Constitutional: Normal. ENT: normal. Cardiovascular: Normal. Respiratory: Normal. Gastrointestinal: Normal. Genitourinary: Normal. Integumentary: Normal. Musculoskeletal: joint pain. Neurological: Normal. Psychiatric: Normal. Social History ?? Former Smoker V15.82 Current Meds 1. CarBAMazepine ER 200 MG Oral Tablet Extended Release 12 Hour; Therapy: [id number] to Recorded; Dispense: 30 Days ; #:150 TB12; Refill: 0; Record; Last Updated By: Ernestina Siddiqi Allergies 1. Sulfa Drugs Vitals Signs [Data Includes: Current Encounter] [id number] 11:02AM Temperature: 97.9 F Heart Rate: 77 Respiration: 18 Systolic: 120 Diastolic: 78 O2 Saturation: 98 Weight: 222 lb Results/Data Right ankle xray = soft tissue lateral aspect with degenerative changes, no fracture per radiologst. Patient's right ankle wrapped in an carlos bandage and an ankle air splint applied. Physical Exam Constitutional: no acute distress, well appearing and well nourished. Head/Face: normal. Eyes: conjunctiva and lids with no swelling, erythema or discharge. Pulmonary: no increased work of breathing or signs of respiratory distress and clear to auscultation. Cardiovascular: normal rate and rhythm, normal S1 and S2, without murmurs. Psychiatric: oriented to person, place, and time and mood and affect normal. Musculoskeletal/Neurological: Musculoskeletal: spastic gait, swelling, tenderness, restricted range of motion, lower extremity weakness and right ankle, but normal digits and nails and no deformity. Right Lower Extremity: right ankle swelling, right ankle tenderness, limited right ankle range of motion and right ankle weakness,but normal right knee. Appearance: Normal except swelling and swelling medially, but no Achilles defect, no Achilles thickening, no deformity and no dislocation. Tenderness: None except the medial malleolus. (right ankle pain) Assessment 1. Ankle Injury 959.7 2. Ankle Sprain 845.00 Plan Rest right ankle as much as possible and keep elevated. Ice area of pain for 20 minutes out of every hour at least 6 times a day. Take OTC Motrin or Tyelnol as needed for pain. Wear splint until seenby orthopedics and use cane or crutches for ambulation. Return to the ER for symptoms that become worse or change. Discussion/Summary Treatment plan includes rest, acetaminophen, non-steroidal anti-inflammatory drugs, ice and Follow up with orthopedics. Patient Discussion: follow-up 3-5 days with orthopedics for re-evaluation. Signatures Electronically signed by : Martita Sanchez NP; Oct 18 2012 12:05PM (Author) RAL SALES MANAGER documented in this encounter Plan of Treatment Not on file documented as of this encounter Visit Diagnoses Not on filedocumented in this encounter
--- OUTSIDE RECORDS SUMMARY | 2024-03-26 17:01 | XMS_ITS | Encounter Summary ---
Author Organization [facility] Address [address] [place] [address]. [place], [place] [address] [place] [address] Care Team Providers Care Commercial Agent Name Role Phone Unavailable Primary Care Provider Unavailabl e Encounter Details Date Type Department Care Team (Late st Contact Info) Description 11/19/2017 Abstract [facility] Emergency Room [address] [place] [address] [facility] [address] [facility] [address] [address] Social History Tobacco Use Types Packs/Day Years Used Date Smoking Tobacco: Never Assessed Sex and Gender Information Value Date Recorded Sex Assigned at Male 05/10/2019 1:27 AM DEMAND PLANNING MANAGER Legal Sex Male 7:38 PM CDT Gender Identity Male 05/10/2019 1:27 AM DEMAND PLANNING MANAGER Sexual Orientation Not on file documented as of this encounter Plan of Treatment Not on file documented as of this encounter Procedures Procedure Name Priority Date/Time Associated Diagnosis Comments URINE BACTERIA CULTURE Routine 8 9:58 PM CDT URINALYSIS WI REFLEX TO CULTURE STAT 11/19/2017 9:38 PM CDT PROCALCITONIN (PCT) STAT 11/19/2017 9 :32 PM CDT INFLUENZA A & B STAT 11/19/2017 9:32 PM CDT COMPREHENSIVE METABOLIC PANEL STAT 11/19/2017 9:32 PM CDT LYME DISEASE ANTIBODY Routine 11/19/2017 9:32 PM CDT CBC W/DIFF AUTOMATED STAT 11/19/2017 9:32 PM CDT documented in this encounter Results * CULTURE URINE (11/19/2017 9:58 PM CDT) SPEC DESCRIPTION URINE CLEAN CATCH 11/19/2017 10:00 PM CDT [facility] SPECIAL REQUESTS NO SPECIAL REQUEST 11/19/2017 10:00 PM CDT [facility] CULTURE RESULT 50,000-100,000 COL/MLKLEBSIELLA PNEUMONIAE SSP. OZAENAEPROBABLE CARBAPENEMASE FOREMAN/PROJECT MANAGER 11/23/2017 8:25 AM CDT [facility] URINE SPECIMEN OBTAINED BY CLEAN CATCH PROCEDURE / Unknown 11/19/2017 9:58 PM CDT 11/19/2017 9:59 PM CDT Narrative Organism Antibiotic Method Susceptibility Unknown AMPICILLIN SHARON (VITEK) >=32: Resistant Unknown AMPICILLIN/SULBACTAM SHARON (VITEK) >=32: Resistant Unknown CEFTRIAXONE SHARON (VITEK) <=1: Resistant Unknown CEFTAZIDIME SHARON (VITEK) 2: Resistant Unknown CEFAZOLIN SHARON (VITEK) 32: Resistant Unknown ESBL SHARON (VITEK) NEG: Sensitive Unknown NITROFURANTOIN SHARON (VITEK) >=512: Resistant Unknown GENTAMICIN SHARON (VITEK) <=1: Sensitive Unknown LEVOFLOXACIN SHARON (VITEK) 2: Sensitive Unknown MEROPENEM SHARON (VITEK) 0.5: Resistant Unknown PIPRACIL/TAZO SHARON (VITEK) 8: Resistant Unknown TRIMETH-SULFAMETH. SHARON (VITEK) <=20: Sensitive Unknown CEFEPIME SHARON (VITEK) Resistant Comment: Organism code(s) sent by the ancillary, '50,000-100,000 COL/MLKLEBSIELLA PNEUMONIAE SSP. , OZAENAEPROBABLE CARBAPENEMASE FOREMAN/PROJECT MANAGER', not recognized. Organism 'UNKNOWN' was substituted in its place. us Generic Conversion Md BARRETT MICROBIOLOGY - GENERAL ORDERABLES Final Result [facility] [address] [place] [address], [place] [phone] [facility] [address] [place] [address], [place] [phone] * (ABNORMAL) URINALYSIS WI REFLEX TO CULTURE (11/19/2017 9:38 PM CDT) COLOR (U) YELLOW 11/19/2017 9:58 PM CDT [facility] TRANSPARENCY CLEAR 11/19/2017 9:58 PM CDT [facility] SPECIFIC GRAVITY (U) 1.010 1.000 - 1.030 11/19/2017 9:58 PM CDT [facility] U PH 6.5 5.0 - 9.0 11/19/2017 9:58 PM CDT [facility] LEUKOCYTES (U) 1+(A) NEGATIVE 11/19/2017 9:58 PM CDT [facility] NITRITES POSITIVE(A) NEGATIVE 11/19/2017 9:58 PM CDT [facility] PROTEIN (U) NEGATIVE NEGATIVE 11/19/2017 9:58 PM CDT [facility] URINE GLUCOSE NEGATIVE NEGATIVE 11/19/2017 9:58 PM T [facility] KETONES MG/DL (U) NEGATIVE NEGATIVE 11/19/2017 9:58 PM CDT [facility] BILIRUBIN (U) NEGATIVE NEGATIVE 11/19/2017 9:58 PM CDT [facility] BLOOD (U) NEGATIVE NEGATIVE 11/19/2017 9:58 PM CDT [facility] WBC/HPF 0-5 0 - 5 /HPF 11/19/2017 9:58 PM CDT [facility] RBC/HPF NONE SEEN 0 - 5 /HPF 11/19/2017 9:58 PM CDT [facility] EPI/HPF NONE SEEN /HPF 11/19/2017 9:58 PM CDT [facility] CULTURE & SENSITIVITY INDICATED? SPECIMEN SETUP FOR CULTURE 11/19/2017 9:58 PM CDT [facility] BACTERIA (U) MODERATE /HPF 11/19/2017 9:58 PM CDT [facility] 11/19/2017 9:38 PM CDT 11/19/2017 9:39 PM CDT us Generic Conversion Md BARRETT URINE ORDERABLES Final Result Performing Organization Address [facility] Co de Phone Number [facility] [address] [place] [address], [place] [phone] * INFLUENZA A & B (11/19/2017 9:32 PM CDT) SPECIMEN TYPE NASOPHARYNX 11/19/2017 10:08 PM CDT [facility] INFLUENZA A NEGATIVE NEGATIVE 11/19/2017 10:08 PM CDT [facility] INFLUENZA B NEGATIVE NEGATIVE 11/19/2017 10:08 PM CDT [facility] 11/19/2017 9:32 PM CDT 11/19/2017 9:38 PM CDT us Generic Conversion Md BARRETT MICROBIOLOGY - GENERAL ORDERABLES Final Result Performing Organization Address [facility]/ZIP Co de Phone Number [facility] [address] [place] [address], [place] [phone] * LYME DISEASE ANTIBODY (11/19/2017 9:32 PM CDT) LYME IGG/IGM <0.90 <0.90 Index 11/23/2017 6:50 PM CDT [employer] ASHFORD-JWToby HANCOCK Comment: Reference ranges:Index ? Interpretation----- ? <0.90 ? Negative0.90-1.09 ? Equivocal>1.09 ? PositiveAs recommended by the Food and Drug Aministration(FDA), all samples with positive or equivocal resultsin a Borrelia burgdorferi antibody EIA (screening)will be tested using a blot method. Positive orequivocal screening test results should not beinterpreted as truly positive until verified as suchusing a supplemental assay (e.g., B. burgdorferiblot).The screening test and/or blot for B. burgdorferiantibodies may be falsely negative in early stagesof Lyme disease, including the period when erythemamigrans is apparent. COMMENT REPORT 11/23/2017 6:50 PM CDT [employer] GM HANCOCK Comment: Not indicatedTest Performed by Tram Ann,iAgree García [facility],[address] [place] [address] 127[address]Iwwrraklydia Robin M.D., Ph.D., Director of [phone], [facility] [id number] SERUM SPECIMEN / Unknown 11/19/2017 9:32 PM CDT 11/19/2017 9:38 PM CDT us Generic Conversion Md [facility] LAB[facility]AT[facility] Final R esult [facility] [place] [address], * PROCALCITONIN (PCT) (11/19/2017 9:32 PM CDT) Procalcitonin 0.05 0.00 - 0.25 NG/ML 11/19/2017 10:28 PM CDT [facility] Comment: PROCALCITONIN INTERPRETAION GUIDELINESLOWER RESPIRATORY TRACT INFECTIONS (LRTI):USE OF PCT IN INPATIENT OR EMERGENCY SITUATION INITIATION OF ANTIBIOTICS PCT VALUE ? INTERPRETATION<0.10 NG/ML ? ANTIBIOTIC THERAPY ? STRONGLY DISCOURAGED. 0.10-0.25 NG/ML ? ANTIBIOTIC THERAPY ? DISCOURAGED. 0.26-0.50 NG/ML ? ANTIBIOTIC THERAPY ? ENCOURAGED. >0.50 NG/ML ?ANTIBIOTIC THERAPY ? STRONGLY ENCOURAGED. DISCONTINUE ANTIBIOTICSPCT LESS THAN OR EQUAL TO 0.25 NG/MLOR DELTA PCT >80 PERCENTDELTA PCT=PCT(PEAK)-PCT(CURRENT)/PCT(PEAK)X100% STUDIES HAVE EVALUATED PCT PROTOCOLS IN THESEPATIENTS AND FOUND THAT FOR PATIENTS WHO ARECLINICALLY STABLE AND ARE TREATED AT THE ED ORARE HOSPITALIZED, THE INITIATION OF ANTIBIOTICTHERAPY SHOULD BE BASED ON CLINICAL GROUNDSAND A PCT VALUE OF GREATER THAN OR EQUAL TO 0.26 NG/ML. IF PCT REMAINS LOWER, ANTIBIOTICSCAN BE WITHHELD AND PATIENTS CAN BE REASSESSEDCLINICALLY WITHOUT SAFETY CONCERNS. IFPATIENTS ARE CLINICALLY STABLE, AN ALTERNATIVEDIAGNOSIS SHOULD BE CONSIDERED. IF PATIENTSARE UNSTABLE, THEN ANTIBIOTICS MAY BECONSIDERED. IF PATIENTS DO NOT IMPROVE IN THESHORT FOLLOW UP PERIOD OF 6 TO 12 HOURS,CLINICAL RE-EVALUATION AND RE-MEASUREMENTOF PCT IS RECOMMENDED. SERUM OR PLASMA SPECIMEN / Unknown 11/19/2017 9:32 PM CDT 11/19/2017 9:38 PM CDT us Generic Conversion Md [facility] Final R esult Performing Organization Address [facility]/State/ZIP Co de Phone Number [facility] () [facility] [address] [place] [address], * (ABNORMAL) COMPREHENSIVE METABOLIC PANEL (11/19/2017 9:32 PM CDT) [facility] GLUCOSE 111(H) 70 - 99 MG/DL 11/19/2017 10:28 PM T [facility] BUN 9 7 - 18 MG/DL 11/19/2017 10:[address] [facility] CREATININE S/P/B 0.89 0.7 - 1.3 MG/DL 11/19/2017 10:[address] [facility] SODIUM S/P/B 136 136 - 145 MMOL/L 11/19/2017 10:[address] [facility] POTASSIUM S/P/B 3.5 3.5 - 5.1 MMOL/L 11/19/2017 10:[address] [facility] CHLORIDE S/P/B 98(L) 100 - 108 MMOL/L 11/19/2017 10:[address] [facility] CO2 29.3 21 - 32 MMOL/L 11/19/2017 10:[address] [facility] CALCIUM S/P/B 8.6 8.5 - 10.1 MG/DL 11/19/2017 10:[address] [facility] BILIRUBIN TOTAL S/P/B 0.3 0.2 - 1.2 MG/DL 11/19/2017 10:[address] [facility] TOTAL PROTEIN S/P/B 7.3 6.4 - 8.2 G/DL 11/19/2017 10:[address] [facility] ALBUMIN S/P/B 3.5 3.4 - 5.0 G/DL 11/19/2017 10:[address] [facility] AST 28 15 - 37 U/L 11/19/2017 10:[address] [facility] ALT 36 16 - 60 U/L 11/19/2017 10:[address] [facility] ALKALINE PHOSPHATASE S/P/B 126 50 - 136 U/L 11/19/2017 10:28 PM CDT [facility] ANION GAP 12.2 8 - 20 MMOL/L 11/19/2017 10:28 PM CDT [facility] BUN CREATININE RATIO 10.1 6 - 26 11/19/2017 10:28 PM CDT [facility] A/G RATIO 0.9(L) 1.0 - 2.0 RATIO 11/19/2017 10:28 PM CDT [facility] EGFR NON-AFR. AMER. >90 >90 ML/MIN/1.7 3 M2 11/19/2017 10:28 PM CDT [facility] EGFR AFR. AMER. >90 >90 ML/MIN/1.7 3 M2 11/19/2017 10:28 PM CDT [facility] Comment: NOTE: eGFR is not calculated for patients <18 years of age. This is an estimated GFR (CKD EPI) and should not be used for calculating drug doses. 11/19/2017 9:32 PM CDT 11/19/2017 9:38 PM CDT us Generic Conversion Md [facility] Final R esult [facility] [address] [place] [address], [place] [phone] * (ABNORMAL) CBC W/DIFF AUTOMATED (11/19/2017 9:32 PM CDT) WBC 6.1 4.4 - 11.0 x10'3/uL 11/19/2017 9:45 PM CDT [facility] RBC 4.55 4.50 - 5.90 x10'6/uL 11/19/2017 9:45 PM CDT [facility] HGB 14.0 14.0 - 17.5 G/DL 11/19/2017 9:45 PM CDT [facility] HCT 41.7 41.5 - 50.4 % 11/19/2017 9:45 PM CDT [facility] MCV 91.6 80.0 - 96.0 FL 11/19/2017 9:45 PM CDT [facility] MCH 30.8 26.5 - 31.4 PG 11/19/2017 9:45 PM T [facility] MCHC 33.6 31.9 - 34.8 G/DL 11/19/2017 9:45 PM CDT [facility] RDW 12.7 12.3 - 14.3 % 11/19/2017 9:45 PM T [facility] PLT 189 151 - 353 x10'3/uL 11/19/2017 9:45 PM T [facility] MPV 9.5(L) 9.7 - 11.9 FL 11/19/2017 9:45 PM CDT [facility] RBC MORPHOLOGY NORMAL 11/19/2017 9:45 PM T [facility] PLT MORPH. NORMAL 11/19/2017 9:[address] [facility] WBC MORPHOLOGY NORMAL 11/19/2017 9:45 PM T [facility] LYMPHOCYTES % 21.2 15.8 - 45.0 % 11/19/2017 9:45 PM T [facility] NEUTROPHILS % 65.9 42.1 - 71.9 % 11/19/2017 9:45 PM CDT [facility] MONOCYTES % 10.9 5.7 - 12.5 % 11/19/2017 9:45 PM T [facility] EOSINOPHILS 1.5 0.0 - 5.6 % 11/19/2017 9:45 PM T [facility] BASOPHILS 0.3 0.0 - 1.3 % 11/19/2017 9:45 PM CDT [facility] ABS. NEUTROPHILS TOTAL 4.04 1.40 - 6.00 x10'3/uL 11/19/2017 9:45 PM CDT [facility] IMMATURE GRANS % 0.2 0.0 - 0.5 % 11/19/2017 9:45 PM CDT [facility] ABS. LYMPHOCYTES 1.30 0.80 - 4.70 x10'3/uL 11/19/2017 9:45 PM CDT [facility] 11/19/2017 9:32 PM CDT 11/19/2017 9:38 PM CDT us Generic Conversion Md [facility] Final R esult [facility] [address] [place] [address], [place] [phone] documented in this encounter Visit Diagnoses Diagnosis Urinary tract infection Urinary tract infection, site not specified documented in this encounter
--- OUTSIDE RECORDS SUMMARY | 2024-03-26 17:01 | XMS_ITS | Encounter Summary ---
Author Organization [facility] Address [address] [place] [address]. [place], [place] [address] [place] [address] Care Team Providers Care Hatch Supervisor Name Role Phone Unavailable Primary Care Provider Unavailabl e Encounter Details Date Type Department Care Team (Late st Contact Info) Description 08/11/[address] [facility] Emergency Room [address] [place] [address] Jacque Willis FNP [address] [place] [address] Social History Tobacco Use Types Packs/Day Years Used Date Smoking Tobacco: Never Assessed Sex and Gender Information Value Date Recorded Sex Assigned at Male 05/10/2019 1:27 AM CATSHOVEL DRIVER Legal Sex Male 7:38 PM CDT Gender Identity Male 05/10/2019 1:27 AM CATSHOVEL DRIVER Sexual Orientation Not on file documented as of this encounter Plan of Treatment Not on file documented as of this encounter Visit Diagnoses Diagnosis Cystitis without hematuria Cystitis, unspecified documented in this encounter
--- OUTSIDE RECORDS SUMMARY | 2024-03-26 17:01 | XMS_ITS | Encounter Summary ---
Author Organization [facility] Address [address] [place] [address]. [place], [place] [address] [place] [address] Care Team Providers Care Bus And Sys Integration Senior Manager Name Role Phone Unavailable Primary Care Provider Unavailabl e Encounter Details Date Type Department Care Team (Late st Contact Info) Description 06/28/2018 Abstract [facility] [address] [place] [address] Jose Mo MD [employer] [address] [place] [address] Social History Tobacco Use Types Packs/Day Years Used Date Smoking Tobacco: Never Assessed Sex and Gender Information Value Date Recorded Sex Assigned at Male 05/10/2019 1:27 AM DYNAMITE PACKING MACHINE FEEDER Legal Sex Male 7:38 PM CDT Gender Identity Male 05/10/2019 1:27 AM DYNAMITE PACKING MACHINE FEEDER Sexual Orientation Not on file documented as of this encounter Plan of Treatment Not on file documented as of this encounter Procedures Procedure Name Priority Date/Time Associated Diagnosis Comments URINALYSIS WI REFLEX TO CULTURE Routine 06/28/2018 12:30 PM CDT documented in this encounter Results * URINALYSIS WI REFLEX TO CULTURE (06/28/2018 12:30 PM CDT) COLOR (U) YELLOW 06/29/2018 5:21 AM CDT [facility] TRANSPARENCY CLEAR 06/29/2018 5:21 AM CDT [facility] SPECIFIC GRAVITY (U) 1.010 1.000 - 1.030 06/29/2018 5:21 AM T [facility] U PH 8.0 5.0 - 9.0 06/29/2018 5:21 AM T [facility] LEUKOCYTES (U) NEGATIVE NEGATIVE 06/29/2018 5:21 AM T [facility] NITRITES NEGATIVE NEGATIVE 06/29/2018 5:21 AM T [facility] PROTEIN (U) NEGATIVE NEGATIVE 06/29/2018 5:21 AM T [facility] URINE GLUCOSE NEGATIVE NEGATIVE 06/29/2018 5:21 AM [facility] KETONES MG/DL (U) NEGATIVE NEGATIVE 06/29/2018 5:21 AM [facility] BILIRUBIN (U) NEGATIVE NEGATIVE 06/29/2018 5:21 AM T [facility] BLOOD (U) NEGATIVE NEGATIVE 06/29/2018 5:21 AM [facility] WBC/HPF NONE SEEN 0 - 5 /HPF 06/29/2018 5:21 AM [facility] RBC/HPF NONE SEEN 0 - 5 /HPF 06/29/2018 5:21 AM [facility] EPI/HPF NONE SEEN /HPF 06/29/2018 5:21 AM [facility] 06/28/2018 12:3 0 PM CDT 06/29/2018 5:14 AM CDT us Generic Conversion Md BARRETT URINE ORDERABLES Final Result [facility] [address] [place] [address], [place] [phone] documented in this encounter Visit Diagnoses Diagnosis Urinary tract infection Urinary tract infection, site not specified documented in this encounter
--- OUTSIDE RECORDS SUMMARY | 2024-03-26 17:01 | XMS_ITS | Encounter Summary ---
Author Organization [facility] Address [address] [place] [address]. [place] [address] Care Team Providers Care Metal Burrer Name Role Phone Unavailable Primary Care Provider Unavailabl e Encounter Details Date Type Department Care Team (Latest Contact Info) Description 10/19/2012 Abstract [facility] Social History Tobacco Use Types Packs/Day Years Used Date Smoking Tobacco: Never Assessed Sex and Gender Information Value Date Recorded Sex Assigned at Male 05/10/2019 1:27 AM WOOD TECHNOLOGIST Legal Sex Male 7:38 PM CDT Gender Identity Male 05/10/2019 1:27 AM WOOD TECHNOLOGIST Sexual Orientation Not on file documented as of this encounter Plan of Treatment Not on file documented as of this encounter Visit Diagnoses Not on filedocumented in this encounter
--- OUTSIDE RECORDS SUMMARY | 2024-03-26 17:01 | XMS_ITS | Encounter Summary ---
Author Organization [facility] Address [address] [place] [address]. [place], [place] [address] [place] [address] Care Team Providers Care Catering Chef Name Role Phone Jose Mo MD Primary Care Provider Saroj Griffin MD Unavailable [phone] Ania Topete NP Unavailable [phone] Encounter Details Date Type Department Care Team (Latest Contact Info) Description 02/10/2018 Abstract [facility] Group Lorelei Bliss MD Social History Tobacco Use Types Packs/Day Years Used Date Smoking Tobacco: Never Assessed Sex and Gender Information Value Date Recorded Sex Assigned at Male 05/10/2019 1:27 AM TRACK LAYING MACHINE OPERATOR Legal Sex Male 7:38 PM CDT Gender Identity Male 05/10/2019 1:27 AM TRACK LAYING MACHINE OPERATOR Sexual Orientation Not on file documented as of this encounter Plan of Treatment Not on file documented as of this encounter Visit Diagnoses Not on filedocumented in this encounter Additional Health Concerns Infection Onset Date Last Indicated Resolved Time COVID-19 Rule Out 12/29/2020 12/29/2020 12/29/2020 3:34 PM CDT COVID-19 Rule Out 03/13/2021 03/13/2021 03/13/2021 2:37 PM TRACK LAYING MACHINE OPERATOR COVID-19 Confirmed 03/13/2021 03/13/2021 12:32 AM TRACK LAYING MACHINE OPERATOR COVID-19 Rule Out 07/27/2023 07/27/2023 07/27/2023 8:33 PM CDT documented as of this encounter Care Teams Catering Chef Relationship Specialty Start Date End Date Jose Mo MD [address] [address] PCP - General INTERNAL MEDICINE 05/09/19 [place] [address] [place] [address] Consulting Physician UROLOGY 11/20/23 Ania Topete NP [address] [place] [phone] NURSE PRACTITIONER 11/20/23 documented as of this encounter
--- OUTSIDE RECORDS SUMMARY | 2024-03-26 17:01 | XMS_ITS | Encounter Summary ---
Author Organization [facility] Address [address] [place] [address]. [place], [place] [address] [place] [address] Care Team Providers Care Bessemer Bottom Maker Name Role Phone Unavailable Primary Care Provider Unavailabl e Encounter Details Date Type Department Care Team (Late st Contact Info) Description 10/18/2012 Abstract [facility] [address] [place] [address] Nahomy Sanchez, ASSEMBLER WET WASH [address] [facility] [address] [place] [address] Social History Tobacco Use Types Packs/Day Years Used Date Smoking Tobacco: Never Assessed Sex and Gender Information Value Date Recorded Sex Assigned at Male 05/10/2019 1:27 AM FISHERIES INSPECTOR Legal Sex Male 7:38 PM CDT Gender Identity Male 05/10/2019 1:27 AM FISHERIES INSPECTOR Sexual Orientation Not on file documented as of this encounter Plan of Treatment Not on file documented as of this encounter Visit Diagnoses Diagnosis Pain in joint, ankle and foot documented in this encounter
--- OUTSIDE RECORDS SUMMARY | 2024-03-26 17:01 | XMS_ITS | Encounter Summary ---
Author Organization [facility] Address [address] [place] [address]. [place], [place] [address] [place] [address] Care Team Providers Care Financing Analyst Name Role Phone Unavailable Primary Care Provider Unavailabl e Encounter Details Date Type Department Care Team (Late st Contact Info) Description 05/28/2009 Abstract [facility] CONVERSION [address] [place] [address] Lobo Campbell, DO [address] [place] [address] Social History Tobacco Use Types Packs/Day Years Used Date Smoking Tobacco: Never Assessed Sex and Gender Information Value Date Recorded Sex Assigned at Male 05/10/2019 1:27 AM APPRAISAL TECHNICIAN Legal Sex Male 7:38 PM CDT Gender Identity Male 05/10/2019 1:27 AM APPRAISAL TECHNICIAN Sexual Orientation Not on file documented as of this encounter Plan of Treatment Not on file documented as of this encounter Visit Diagnoses Not on filedocumented in this encounter
--- OUTSIDE RECORDS SUMMARY | 2024-03-26 21:16 | XMS_ITS | Encounter Summary ---
Author Organization [facility] Address [address] [place] [address]. [place], [place] [address] [place] [address] Care Team Providers Care Marketer Name Role Phone Jose Mo MD Primary Care Provider [phone] Saroj Griffin MD Unavailable [phone] Ania Topete NP Unavailable [phone] Encounter Details Date Type Department Care Team [...] Sex Assigned at Male 05/10/2019 1:27 AM TREE CHIPPER Legal Sex Male 7:38 PM CDT Gender Identity Male 05/10/2019 1:27 AM TREE CHIPPER Sexual Orientation Not on file documented as of this encounter Functional Status * RETIRED Are you deaf or do you have serious difficulty hearing Answer Date of Assessment Author Status No 05/15/2019 12:02 PM TREE CHIPPER 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 Answer Date of Assessment Author Status No 05/15/2019 12:02 PM TREE CHIPPER Acti ve * Do you have serious difficulty walking or climbing stairs? Answer Date of Assessment Author Status No 05/15/2019 12:02 PM TREE CHIPPER Cassie Dawn RN Active * Do you [...] Author Return home General No Zayra Kidd, RAILWAY SWITCH OPERATOR Note: Plan to return home with significant other. No DME or home health needed at this time. documented as of this encounter Visit Diagnoses Not on filedocumented in this encounter Care Teams Marketer Relationship Specialty Start Date End Date Jose Mo MD [address] [address] PCP - General INTERNAL MEDICINE 05/09/19 [place] [address] [place] [address] Consulting Physician UROLOGY 11/20/23 Ania Topete NP [address] [phone] NURSE PRACTITIONER 11/20/23 documented as of this encounter
--- OUTSIDE RECORDS SUMMARY | 2024-03-26 21:16 | XMS_ITS | Encounter Summary ---
Author Organization [facility] Address [address] [place] [address]. [place], [place] [address] [place] [address] Care Team Providers Care Conche Operator Name Role Phone Jose Mo MD Primary Care Provider [phone] Encounter Details Date Type Department Care Team [...] Sex Assigned at Male 05/10/2019 1:27 AM INTEGRATION ARCHITECT Legal Sex Male 7:38 PM CDT Gender Identity Male 05/10/2019 1:27 AM INTEGRATION ARCHITECT Sexual Orientation Not on file documented as of this encounter Functional Status * RETIRED Are you deaf or do you have serious difficulty hearing Answer Date of Assessment Author Status No 05/15/2019 12:02 PM INTEGRATION ARCHITECT 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 Answer Date of Assessment Author Status No 05/15/2019 12:02 PM INTEGRATION ARCHITECT Acti ve * Do you have serious [...] Author Return home General No Zayra Kidd, CEMENT KILN OPERATOR Note: Plan to return home with significant other. No DME or home health needed at this time. documented as of this encounter Visit Diagnoses Not on filedocumented in this encounter Additional Health Concerns Infection Onset Date Last Indicated Resolved Time COVID-19 Rule Out 07/27/2023 07/27/2023 07/27/2023 8:33 PM CDT documented as of this encounter Care Teams Conche Operator Relationship Specialty Start Date End Date Jose Mo MD [address] [address] PCP - General INTERNAL MEDICINE 05/09/19 documented as of this encounter
--- OUTSIDE RECORDS SUMMARY | 2024-03-26 21:16 | XMS_ITS | Clinical Summary ---
Author Organization [facility] Address [address] [place] [address]. [place], [place] [address] [place] [address] Care Team Providers Care Drop Wirer Name Role Phone Jose Mo MD Primary Care Provider [phone] Saroj Griffin MD Unavailable [phone] Ania Topete NP Unavailable [phone] Allergies Active Allergy Reactions Criticality Noted Date [...] Problems Problem Noted Date Diagnosed Date Sepsis ([facility]) 05/10/2019 Urinary tract infection 05/09/2019 Epididymitis 05/09/2019 [...] Sex Assigned at Male 05/10/2019 1:27 AM SUBWAY OPERATOR Legal Sex Male 7:38 PM CDT Gender Identity Male 05/10/2019 1:27 AM SUBWAY OPERATOR Sexual Orientation Not on file Last Filed [...] Author Return home General No Zayra Kidd, SHIPPING TRACK SUPERVISOR Note: Plan to return home with significant other. No DME or home health needed [place] [address] Care Teams Drop Wirer Relationship Specialty Start Date End Date Jose Mo MD [address] [address] PCP - General INTERNAL MEDICINE 05/09/19 [place] [address] [place] [address] Consulting Physician UROLOGY 11/20/23 Ania Topete NP [address] [phone] NURSE PRACTITIONER 11/20/23
--- OUTSIDE RECORDS SUMMARY | 2024-03-26 21:16 | XMS_ITS | Encounter Summary ---
Author Organization [facility] Address [address] [place] [address]. [place], [place] [address] [place] [address] Care Team Providers Care Note Specialist Name Role Phone Jose Mo MD Primary Care Provider [phone] Saroj Griffin MD Unavailable [phone] Ania Topete NP Unavailable [phone] Reason for Referral * Imaging (Urgent) - New Request Specialty Diagnoses / Procedures Referred By Barbara t Referred To Contact RADIOLOGY Procedures CT ABD+PEL KIDNEY STONE Robin De La Cruz DO [address] [place] [address] Phone: tel: fax: Referral ID Status Reason Start Date Expiration Date V isits Requested Visits Authorized [id number] New Request 11/20/2023 11/19/2024 1 1 Reason for Visit * Reason Comments Flank Pain Urinary Symptoms Encounter Details Date Type Department Care Team (Late st Contact Info) Description 11/20/2023 1:15 PM CDT - 11/20/2023 4:32 PM CDT Emergency [facility] Emergency Room [id number] [place] [address] Robin De La Cruz DO [address] [place] [address] Flank Pain; Urinary Symptoms Discharge Disposition: [...] Sex Assigned at Male 05/10/2019 1:27 AM SWITCHBOX ASSEMBLER Legal Sex Male 7:38 PM CDT Gender Identity Male 05/10/2019 1:27 AM SWITCHBOX ASSEMBLER Sexual Orientation Not on file documented as [...] Assessment Author Status No 05/15/2019 12:02 PM SWITCHBOX ASSEMBLER 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 Answer Date of Assessment Author Status No 05/15/2019 12:02 PM SWITCHBOX ASSEMBLER Acti ve * Do you have [...] Diagnosis Date Bladder disorder overactive bladder Cancer ([facility]) basal cell carcinoma Epididymitis GERD (gastroesophageal reflux disease) History of blood transfusion 1987 Neck fracture ([facility]) Quadriparesis ([facility] Seizures (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) SURGICAL HISTORY Past Surgical History: Procedure Laterality [...] ABD+PEL KIDNEY STONE Final Result by User, [email or web address] (11/19 282) EXAMINATION: CT Abdomen and Pelvis without contrast [...] TO: Jose Mo MD [employer] [address] [place] [address] [facility] Emergency Room [address] [facility] [address] [place] [address] [facility] [id number] DISCHARGE MEDICATIONS: New Prescriptions CEFPODOXIME (VANTIN) 200 [...] Author Return home General No Zayra Kidd, DAM TENDER Note: Plan to return home with significant [...] * LIPASE (11/20/2023 1:35 PM CDT) Pathologist [facility] LIPASE 31 16 - 77 UNITS/L 11/20/2023 2:10 PM CDT [facility] 11/20/2023 1:35 PM CDT Robin De La Cruz DO LABORATORY Final Result [facility] [address] [place] [address], * (ABNORMAL) COMPREHENSIVE METABOLIC PANEL (11/20/2023 1:35 PM CDT) Pathologist [facility] GLUCOSE 101(H) 70 - 99 MG/DL 11/20/2023 2:10 PM CDT [facility] BUN 11 7 - 18 MG/DL 11/20/2023 2:10 PM T [facility] CREATININE S/P/B 0.81 0.7 - 1.3 MG/DL 11/20/2023 2:10 PM T [facility] SODIUM S/P/B 139 136 - 145 MMOL/L 11/20/2023 2:10 PM T [facility] POTASSIUM S/P/B 4.1 3.5 - 5.1 MMOL/L 11/20/2023 2:10 PM T [facility] CHLORIDE S/P/B 103 100 - 108 MMOL/L 11/20/2023 2:10 PM T [facility] CO2 28.5 21 - 32 MMOL/L 11/20/2023 2:10 PM T [facility] CALCIUM S/P/B 8.8 8.5 - 10.1 MG/DL 11/20/2023 2:10 PM T [facility] BILIRUBIN TOTAL S/P/B 0.2 0.2 - 1.2 MG/DL 11/20/2023 2:10 PM [facility] TOTAL PROTEIN S/P/B 7.1 6.4 - 8.2 G/DL 11/20/2023 2:10 PM T [facility] ALBUMIN S/P/B 3.5 3.4 - 5.0 G/DL 11/20/2023 2:10 PM T [facility] AST 19 15 - 37 U/L 11/20/2023 2:10 PM [facility] ALT 27 16 - 60 U/L 11/20/2023 2:10 PM T [facility] ALKALINE PHOSPHATASE S/P/B 153(H) 50 - 136 U/L 11/20/2023 2:10 PM CDT [facility] ANION GAP 7.5 5 - 15 MMOL/L 11/20/2023 2:10 PM CDT [facility] BUN CREATININE RATIO 13.6 6 - 26 11/20/2023 2:10 PM CDT [facility] A/G RATIO 1.0 1.0 - 2.0 RATIO 11/20/2023 2:10 PM CDT [facility] GFR ESTIMATE >90 >90 ML/MIN/1.7 3 M2 11/20/2023 2:10 PM CDT [facility] Comment: NOTE: eGFR is not calculated for patients <18 years of age. This is an estimated GFR calculation using the new CKD EPI creatinine equation without race and so does not require a correction factor for race. This estimated GFR should not be used for calculating drug doses. 11/20/2023 1:35 PM CDT us Robin De La Cruz DO LABORATORY Final Result [facility] [address] [place] [address], * (ABNORMAL) CBC W/DIFF AUTOMATED (11/20/2023 1:35 PM CDT) WBC 10.64 4.4 - 11.0 x10'3/uL 11/20/2023 1:54 PM CDT [facility] RBC 4.09(L) 4.50 - 5.90 x10'6/uL 11/20/2023 1:54 PM CDT [facility] HGB 11.9(L) 14.0 - 17.5 G/DL 11/20/2023 1:54 PM CDT [facility] HCT 36.1(L) 41.5 - 50.4 % 11/20/2023 1:54 PM CDT [facility] MCV 88.3 80.0 - 96.0 FL 11/20/2023 1:54 PM CDT [facility] MCH 29.1 26.5 - 31.4 PG 11/20/2023 1:54 PM CDT [facility] MCHC 33.0 31.9 - 34.8 G/DL 11/20/2023 1:54 PM CDT [facility] RDW 13.2 12.3 - 14.3 % 11/20/2023 1:54 PM CDT [facility] PLT 308 151 - 353 x10'3/uL 11/20/2023 1:54 PM CDT [facility] MPV 9.0(L) 9.7 - 11.9 FL 11/20/2023 1:54 PM CDT [facility] RBC MORPHOLOGY NORMAL 11/20/2023 1:54 PM CDT [facility] PLT MORPH. NORMAL 11/20/2023 1:54 PM CDT [facility] WBC MORPHOLOGY NORMAL 11/20/2023 1:54 PM CDT [facility] LYMPHOCYTES % 14.5(L) 15.8 - 45.0 % 11/20/2023 1:54 PM CDT [facility] NEUTROPHILS % 77.9(H) 42.1 - 71.9 % 11/20/2023 1:54 PM CDT [facility] MONOCYTES % 5.3(L) 5.7 - 12.5 % 11/20/2023 1:54 PM CDT [facility] EOSINOPHILS 1.1 0.0 - 5.6 % 11/20/2023 1:54 PM CDT [facility] BASOPHILS 0.5 0.0 - 1.3 % 11/20/2023 1:54 PM CDT [facility] ABS. NEUTROPHILS 8.30(H) 1.40 - 6.00 x10'3/uL 11/20/2023 1:54 PM CDT [facility] IMMATURE GRANS % 0.7(H) 0.0 - 0.5 % 11/20/2023 1:54 PM CDT [facility] ABS. LYMPHOCYTES 1.54 0.80 - 4.70 x10'3/uL 11/20/2023 1:54 PM CDT [facility] 11/20/2023 1:35 PM CDT Robin De La Cruz DO LABORATORY Final Result [facility] [address] [place] [address], * (ABNORMAL) URINE BACTERIA CULTURE (11/20/2023 1:12 PM CDT) SPEC DESCRIPTION URINE, UNSPECIFIED 11/20/2023 3:15 PM CDT [facility] SPECIAL REQUESTS NO SPECIAL REQUEST 11/20/2023 3:15 PM CDT [facility] CULTURE RESULT 10,000-49,000 COL/ML KLEBSIELLA PNEUMONIAE (A) 11/22/2023 7:25 AM CDT [facility] URINE SPECIMEN / Unknown [...] MICROBIOLOGY - GENERAL ORDERAB LES Final Result [facility] [address] [place] [address], [place] [phone] [facility] [address] [place] [address], [place] [phone] * (ABNORMAL) URINALYSIS, AUTO, COMPLETE (11/20/2023 1:12 PM CDT) COLOR (U) YELLOW 11/20/2023 2:25 PM CDT [facility] TRANSPARENCY HAZY 11/20/2023 2:25 PM CDT [facility] SPECIFIC GRAVITY (U) 1.010 1.000 - 1.030 11/20/2023 2:25 PM CDT [facility] U PH 6.5 5.0 - 9.0 11/20/2023 2:25 PM CDT [facility] LEUKOCYTES (U) 2+(A) NEGATIVE 11/20/2023 2:25 PM CDT [facility] NITRITES NEGATIVE NEGATIVE 11/20/2023 2:25 PM CDT [facility] PROTEIN RANDOM (U) NEGATIVE NEGATIVE 11/20/2023 2:25 PM CDT [facility] GLUCOSE (U) NEGATIVE NEGATIVE 11/20/2023 2:25 PM CDT [facility] KETONES MG/DL (U) NEGATIVE NEGATIVE 11/20/2023 2:25 PM CDT [facility] BILIRUBIN (U) NEGATIVE NEGATIVE 11/20/2023 2:25 PM CDT [facility] BLOOD (U) NEGATIVE NEGATIVE 11/20/2023 2:25 PM CDT [facility] WBC/HPF 10-25 0 - 5 /HPF 11/20/2023 2:25 PM CDT [facility] RBC/HPF 0-5 0 - 5 /HPF 11/20/2023 2:25 PM CDT [facility] EPI/HPF RARE /HPF 11/20/2023 2:25 PM CDT [facility] URINE SPECIMEN OBTAINED BY CLEAN CATCH PROCEDURE / Unknown 11/20/2023 1:12 PM CDT us Robin De La Cruz DO URINE ORDERABLES Final Result [facility] [address] [place] [address], [place] [phone] documented in this encounter Visit Diagnoses Diagnosis [...] DANNA) documented in this encounter Care Teams Note Specialist Relationship Specialty Start Date End Date Jose Mo MD [address] [address] PCP - General INTERNAL MEDICINE 05/09/19 [place] [address] [place] [address] Consulting Physician UROLOGY 11/20/23 Ania Topete NP [address] [phone] NURSE PRACTITIONER 11/20/23 documented as of this encounter
--- OUTSIDE RECORDS SUMMARY | 2024-03-26 21:17 | XMS_ITS | Encounter Summary ---
Author Organization [facility] Address [address] [place] [address]. [place], [place] [address] [place] [address] Care Team Providers Care Erp Analyst Name Role Phone Jose Mo MD Primary Care Provider [phone] Reason for Visit * Reason Onset Date Comments Hospital Follow Up 06/07/2019 Encounter Details Date Type Department Care Team (Late st Contact Info) Description 06/07/2019 Telephone [facility] Care Management [address] [place] [address] Zayra Kidd, [facility] Follow Up Social History Tobacco Use Types Packs/Day Years Used Date Smoking Tobacco: Former Cigarettes Q uit: 06/11/2018 Smokeless Tobacco: Never Alcohol Use Standard Drinks/Week Comments Yes 0 (1 standard drink = 0.6 oz pur e alcohol) socially Sex and Gender Information Value Date Recorded Sex Assigned at Male 05/10/2019 1:27 AM STUDENT CAREER DEVELOPMENT SPECIALIST Legal Sex Male 7:38 PM CDT Gender Identity Male 05/10/2019 1:27 AM STUDENT CAREER DEVELOPMENT SPECIALIST Sexual Orientation Not on file documented as of this encounter Functional Status * RETIRED Are you deaf or do you have serious difficulty hearing Answer Date of Assessment Author Status No 05/15/2019 12:02 PM STUDENT CAREER DEVELOPMENT SPECIALIST 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 Answer Date of Assessment Author Status No 05/15/2019 12:02 PM STUDENT CAREER DEVELOPMENT SPECIALIST Acti ve * Do you have serious [...] Author Return home General No Zayra Kidd, ROSE GROWER Note: Plan to return home with significant other. No DME or home health needed at this time. documented as of this encounter Visit Diagnoses Not on filedocumented in this encounter Care Teams Erp Analyst Relationship Specialty Start Date End Date Jose Mo MD [address] [address] PCP - General INTERNAL MEDICINE 05/09/19 documented as of this encounter
--- OUTSIDE RECORDS SUMMARY | 2024-03-26 21:17 | XMS_ITS | Encounter Summary ---
Author Organization [facility] Address [address] [place] [address]. [place], [place] [address] [address] Care Team Providers Care Swimming Pool Service Technician Name Role Phone Jose Mo MD Primary Care Provider [phone] Reason for Visit * Reason Comments Foot Pain Left. Encounter Details Date Type Department Care Team (Late st Contact Info) Description 04/01/2022 6:40 AM ROLLER PRINT TENDER - 04/01/2022 7:39 AM ROLLER PRINT TENDER Emergency [facility] Emergency Room [address] [place] [address] Foot Pain (Left.) Discharge Disposition: Home or Self Care (Routine Discharge) Social History Tobacco Use Types Packs/Day Years Used Date Smoking Tobacco: Former Cigarettes Q uit: 06/11/2018 Smokeless Tobacco: Never Alcohol Use Standard Drinks/Week Comments Yes 0 (1 standard drink = 0.6 oz pur e alcohol) socially Sex and Gender Information Value Date Recorded Sex Assigned at Male 05/10/2019 1:27 AM ROLLER PRINT TENDER Legal Sex Male 7:38 PM CDT Gender Identity Male 05/10/2019 1:27 AM ROLLER PRINT TENDER Sexual Orientation Not on file COVID-19 Exposure Response Date Recorded In the last 10 days, have yo u been in contact with someone who was confirmed or suspected to have Coronavirus/COVID-19? No / Unsure 04/01/2022 6:37 AM ROLLER PRINT TENDER documented as of this encounter Last Filed Vital Signs Vital Sign Reading Time Taken Comments Blood Pressure 156/85 04/01/2022 6:47 AM ROLLER PRINT TENDER Pulse 77 04/01/2022 6:47 AM ROLLER PRINT TENDER Temperature 36.3 ??C (97.3 ??F) 04/01/2022 6:47 AM CS T Respiratory Rate 18 04/01/2022 6:47 AM ROLLER PRINT TENDER Oxygen Saturation 97% 04/01/2022 6:47 AM ROLLER PRINT TENDER Inhaled Oxygen Concentration - - Weight - - Height - - Body Mass Index - - documented in this encounter Functional Status * RETIRED Are you deaf or do you have serious difficulty hearing Answer Date of Assessment Author Status No 05/15/2019 12:02 PM ROLLER PRINT TENDER 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 Answer Date of Assessment Author Status No 05/15/2019 12:02 PM ROLLER PRINT TENDER Acti ve * Do you have serious [...] Joseph Frausto MD - 04/01/2022 7:25 AM ROLLER PRINT TENDER Continue all present medication as prescribed. Continue walking boot. When not up and ambulating orweightbearing elevate foot and ice intermittently. Keep your appointment as scheduled with the footspecialist and sightless on Friday, April 03, 2022. Follow-up with Dr. Mo your primary care provider in the next 3 to 5 days as well. Return to emergency department for any problems or concerns. ER PRINT TENDER * Attachments The following attachments cannot be sent through Care Everywhere. * Walking Boot (Greenlandic) documented in this encounter Medications at Time [...] Patient verbalized understanding of the discharge instructions. ER PRINT TENDER * Joseph Frausto MD - 04/01/2022 7:17 AM CST [facility] Emergency Department Note Chief Complaint Chief [...] Then he reinjured it on March 27 [facility]. Complains of lateral left foot pain. No significant ankle pain. No knee pain or hip pain. Since the second injury he has been on his feet quite a bit at shinto and at the in-laws. He has no other complaints. No chest pain or palpitation. No shortness breath or cough. No abdominal pain. Patient primary care provider is Dr. Hunter. Patient is allergies to sulfa. [facility] Patient take cyclobenzaprine esomeprazole hydrocodone. Previous surgeries include cervical fusion right femur fracture right tibia fracture. Patient quit smoking 2018. Drinks alcohol rarely socially. Patient has significant other. Patient works at a [employer]idence in [employer]. Patient is COVID immunized Medical History ALLERGIES: [...] FOOT LT 3V Final Result by User, [id number] (04/01 727) PATIENT NAME: ANGUS JAIN EXAM: [...] keeping appointment as scheduled with physician at [facility] on Sunday, April 03, 2022 at 1 PM [CA] ED Course User Index [CA] Joseph Frausto MD Medications - No data to display Clinical Impression Foot injury, left, initial encounter (Primary) Current Discharge Medication List Disposition: Discharge Voice recognition software used. Follow-Up: Jose Mo MD [employer] [facility] [place] [address] In 3 days Keep appointment with the foot surgeon on Friday, April 03, 2022 and sightless as scheduled Joseph Frausto MD 04/01/2022 Joseph Frausto MD 04/01/22 0732 ER PRINT TENDER * Aimee Tenorio RN - 04/01/2022 6:44 AM CST To ED with c/o foot pain from a fall with injury to left foot on the . ER PRINT TENDER * Jody Childers MD - 04/01/2022 6:43 [...] pt care. Jody Childers MD 04/01/22 0650 ER PRINT TENDER documented in this encounter Plan of Treatment Not on file documented as of this encounter Goals Goal Patient Goal Type Associated Problems Recent Progress Patient-Stated? Author Return home General No Zayra Kidd, SWISS TYPE SCREW MACHINE OPERATOR Note: Plan to return home with significant other. No DME or home health needed at this time. documented as of this encounter Procedures Procedure Name Priority Date/Time Associated Diagnosis Comments XR FOOT LT 3V STAT 04/01/2022 7:06 AM ROLLER PRINT TENDER documented in this encounter Results * XR FOOT LT 3V (04/01/2022 7:06 AM ROLLER PRINT TENDER) Anatomical Region Laterality Modality Foot Radiographic Cata ging 04/01/2022 7:18 AM ROLLER PRINT TENDER Impressions 04/01/2022 7:21 AM ROLLER PRINT TENDER IMPRESSION: SOFT TISSUE SWELLING ABOUT THE DISTAL FOREFOOT. ??PROBABLE OLD HEALED FRACTURE PROXIMAL PHALANX FIFTH TOE. ??OSTEOARTHRITIS INTERPHALANGEAL JOINT GREAT TOE. ??CALCANEAL SPUR. Signed: Ashok Isaac MD Referred By: ?? Interpreted By: Ashok Isaac MD, 04/01/2022 7:18 AM Narrative 04/01/2022 7:21 AM ROLLER PRINT TENDER PATIENT NAME: ANGUS JAIN EXAM: Foot DATE [...] Primary documented in this encounter Care Teams Swimming Pool Service Technician Relationship Specialty Start Date End Date Jose Mo MD [address] [address] PCP - General INTERNAL MEDICINE 05/09/19 documented as of this encounter
--- OUTSIDE RECORDS SUMMARY | 2024-03-26 21:17 | XMS_ITS | Encounter Summary ---
Author Organization [facility] Address [address] [place] [address]. [place], [place] [address] [place] [address] Care Team Providers Care Environmental Adviser Name Role Phone Jose Mo MD Primary Care Provider [phone] Reason for Visit * Reason Comments Urinary Symptoms Encounter Details Date Type Department Care Team (Late st Contact Info) Description 01/23/2021 6:49 PM CDT - 01/23/2021 7:46 PM CDT Emergency [facility] Emergency Room [id number] [place] [address] Orlando Rogel MD [address] [place] [address] Urinary Symptoms Discharge Disposition: Home or Self Care (Routine Discharge) Social History Tobacco Use Types Packs/Day Years Used Date Smoking Tobacco: Former Cigarettes Q uit: 06/11/2018 Smokeless Tobacco: Never Alcohol Use Standard Drinks/Week Comments Yes 0 (1 standard drink = 0.6 oz pur e alcohol) socially Sex and Gender Information Value Date Recorded Sex Assigned at Male 05/10/2019 1:27 AM CNC WOOD LATHE OPERATOR Legal Sex Male 7:38 PM CDT Gender Identity Male 05/10/2019 1:27 AM CNC WOOD LATHE OPERATOR Sexual Orientation Not on file COVID-19 Exposure [...] Assessment Author Status No 05/15/2019 12:02 PM CNC WOOD LATHE OPERATOR 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 Answer Date of Assessment Author Status No 05/15/2019 12:02 PM CNC WOOD LATHE OPERATOR Acti ve * Do you have [...] Care Everywhere. * Dysuria Discharge Instructions, Adult (Cymraes) documented in this encounter Medications at Time [...] Range COLOR (U) YELLOW TRANSPARENCY CLEAR Specific Solen (U) 1.015 1.000 - 1.030 U PH [...] Author Return home General No Zayra Kidd, MANDREL PRESS HAND Note: Plan to return home with significant other. No DME or home health needed at this time. documented as of this encounter Procedures Procedure Name Priority Date/Time Associated Diagnosis Comments URINALYSIS WI REFLEX TO CULTURE STAT 01/23/2021 7:02 PM CDT documented in this encounter Results * URINALYSIS WI REFLEX TO CULTURE (01/23/2021 7:02 PM CDT) COLOR (U) YELLOW 01/23/2021 7:19 PM CDT [facility] TRANSPARENCY CLEAR 01/23/2021 7:19 PM CDT [facility] SPECIFIC GRAVITY (U) 1.015 1.000 - 1.030 01/23/2021 7:19 PM CDT [facility] U PH 6.0 5.0 - 9.0 01/23/2021 7:19 PM CDT [facility] LEUKOCYTES (U) NEGATIVE NEGATIVE 01/23/2021 7:19 PM CDT [facility] NITRITES NEGATIVE NEGATIVE 01/23/2021 7:19 PM CDT [facility] PROTEIN (U) NEGATIVE NEGATIVE 01/23/2021 7:19 PM CDT [facility] URINE GLUCOSE NEGATIVE NEGATIVE 01/23/2021 7:19 PM T [facility] KETONES MG/DL (U) NEGATIVE NEGATIVE 01/23/2021 7:19 PM CDT [facility] BILIRUBIN (U) NEGATIVE NEGATIVE 01/23/2021 7:19 PM T [facility] BLOOD (U) NEGATIVE NEGATIVE 01/23/2021 7:19 PM CDT [facility] WBC/HPF 0-5 0 - 5 /HPF 01/23/2021 7:19 PM CDT [facility] RBC/HPF 0-5 0 - 5 /HPF 01/23/2021 7:19 PM CDT [facility] EPI/HPF FEW /HPF 01/23/2021 7:19 PM CDT [facility] BACTERIA (U) RARE /HPF 01/23/2021 7:19 PM CDT [facility] URINE SPECIMEN OBTAINED BY CLEAN CATCH PROCEDURE / Unknown 01/23/2021 7:02 PM CDT us Sarah Kraft MD URINE ORDERABLES Final Result [facility] [address] [place] [address], documented in this encounter Visit Diagnoses Diagnosis Dysuria- Primary documented in this encounter Care Teams Environmental Adviser Relationship Specialty Start Date End Date Jose Mo MD [address] [address] PCP - General INTERNAL MEDICINE 05/09/19 documented as of this encounter
--- OUTSIDE RECORDS SUMMARY | 2024-03-26 21:17 | XMS_ITS | Encounter Summary ---
Author Organization [facility] Address [address] [place] [address]. [place], [place] [address] [place] [address] Care Team Providers Care Institutional Research Coordinator Name Role Phone Jose Mo MD Primary Care Provider [phone] Encounter Details Date Type Department Care Team (Latest Contact Info) Description 04/01/2022 Travel Social History Tobacco Use Types Packs/Day Years Used Date Smoking Tobacco: Former Cigarettes Q uit: 06/11/2018 Smokeless Tobacco: Never Alcohol Use Standard Drinks/Week Comments Yes 0 (1 standard drink = 0.6 oz pur e alcohol) socially Sex and Gender Information Value Date Recorded Sex Assigned at Male 05/10/2019 1:27 AM BUILDING SURVEYOR Legal Sex Male 7:38 PM CDT Gender Identity Male 05/10/2019 1:27 AM BUILDING SURVEYOR Sexual Orientation Not on file COVID-19 Exposure Response Date Recorded In the last 10 days, have yo u been in contact with someone who was confirmed or suspected to have Coronavirus/COVID-19? No / Unsure 04/01/2022 6:37 AM BUILDING SURVEYOR documented as of this encounter Functional Status * RETIRED Are you deaf or do you have serious difficulty hearing Answer Date of Assessment Author Status No 05/15/2019 12:02 PM BUILDING SURVEYOR 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 Answer Date of Assessment Author Status No 05/15/2019 12:02 PM BUILDING SURVEYOR Acti ve * Do you have serious [...] Author Return home General No Zayra Kidd, TOP PRECIPITATOR OPERATOR HELPER Note: Plan to return home with significant other. No DME or home health needed at this time. documented as of this encounter Visit Diagnoses Not on filedocumented in this encounter Care Teams Institutional Research Coordinator Relationship Specialty Start Date End Date Jose Mo MD [address] [address] PCP - General INTERNAL MEDICINE 05/09/19 documented as of this encounter
--- OUTSIDE RECORDS SUMMARY | 2024-03-26 21:17 | XMS_ITS | Encounter Summary ---
Author Organization [facility] Address [address] [place] [address]. [place], [place] [id number] [place] [address] Care Team Providers Care Complaint Evaluation Officer Name Role Phone Jose Mo MD Primary Care Provider [phone] Encounter Details Date Type Department Care Team [...] Sex Assigned at Male 05/10/2019 1:27 AM TREASURY REPRESENTATIVE Legal Sex Male 7:38 PM CDT Gender Identity Male 05/10/2019 1:27 AM TREASURY REPRESENTATIVE Sexual Orientation Not on file COVID-19 Exposure Response Date Recorded In the last 10 days, have yo u been in contact with someone who was confirmed or suspected to have Coronavirus/COVID-19? No / Unsure 06/15/2022 7:32 PM TREASURY REPRESENTATIVE documented as of this encounter Functional Status * RETIRED Are you deaf or do you have serious difficulty hearing Answer Date of Assessment Author Status No 05/15/2019 12:02 PM TREASURY REPRESENTATIVE 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 Answer Date of Assessment Author Status No 05/15/2019 12:02 PM TREASURY REPRESENTATIVE Acti ve * Do you have serious [...] Author Return home General No Zayra Kidd, TICKET COLLECTOR OR USHER Note: Plan to return home with significant other. No DME or home health needed at this time. documented as of this encounter Visit Diagnoses Not on filedocumented in this encounter Care Teams Complaint Evaluation Officer Relationship Specialty Start Date End Date Jose Mo MD [address] [address] PCP - General INTERNAL MEDICINE 05/09/19 documented as of this encounter
--- OUTSIDE RECORDS SUMMARY | 2024-03-26 21:17 | XMS_ITS | Encounter Summary ---
Author Organization [facility] Address [address] [place] [address]. [place], [place] [address] [place] [address] Care Team Providers Care Chiropractic Assistant Name Role Phone Brooke Mo MD Primary Care Provider [phone] Reason for Visit * Reason Comments Urinary Symptoms Encounter Details Date Type Department Care Team (Late st Contact Info) Description 07/21/2021 3:10 PM CDT - 07/21/2021 5:38 PM CDT Emergency [facility] Emergency Room [id number] [place], [place] [id number] Marcus Fox, [place] [address] [place], [place] [address] Urinary Symptoms Discharge Disposition: Home or Self Care (Routine Discharge) Social History Tobacco Use Types Packs/Day Years Used Date Smoking Tobacco: Former Cigarettes Q uit: 06/11/2018 Smokeless Tobacco: Never Alcohol Use Standard Drinks/Week Comments Yes 0 (1 standard drink = 0.6 oz pur e alcohol) socially Sex and Gender Information Value Date Recorded Sex Assigned at Male 05/10/2019 1:27 AM BOTANY PROFESSOR Legal Sex Male 7:38 PM CDT Gender Identity Male 05/10/2019 1:27 AM BOTANY PROFESSOR Sexual Orientation Not on file COVID-19 [...] Assessment Author Status No 05/15/2019 12:02 PM BOTANY PROFESSOR 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 Answer Date of Assessment Author Status No 05/15/2019 12:02 PM BOTANY PROFESSOR Acti ve * Do you have [...] Everywhere. * Urinary Tract Infection, Adult ED (Vietnamese) documented in this encounter Medications at [...] DAVID Jalloh - 07/21/2021 3:27 PM CDT [place], [place] HISTORICAL INFORMATION Primary Care Doctor: BROOKE [...] ??? Neck fracture (CMS/HCC) ??? Skull fracture (CMS/[facility]) SURGICAL HISTORY Past Surgical History: Procedure Laterality [...] 5 tablet, Refills: 0 Class: Eprescribe Pharmacy: [id number] [place] [address] (Ph #: [phone]) DAVID JALLOH PA 07/21/21 170 Cosigned by [...] Author Return home General No Zayra Kidd, BUTCHER ASSISTANT Note: Plan to return home with [...] - 99 MG/DL 07/21/2021 4:40 PM CDT [facility] BUN 17 7 - 18 MG/DL 07/21/2021 4:40 PM CDT [facility] CREATININE S/P/B 0.90 0.7 - 1.3 MG/DL 07/21/2021 4:40 PM CDT [facility] SODIUM S/P/B 128(L) 136 - 145 MMOL/L 07/21/2021 4:40 PM T [facility] POTASSIUM S/P/B 4.0 3.5 - 5.1 MMOL/L 07/21/2021 4:40 PM T [facility] CHLORIDE S/P/B 104 100 - 108 MMOL/L 07/21/2021 4:40 PM T [facility] CO2 28.3 21 - 32 MMOL/L 07/21/2021 4:40 PM T [facility] CALCIUM S/P/B 8.0(L) 8.5 - 10.1 MG/DL 07/21/2021 4:40 PM T [facility] BILIRUBIN TOTAL S/P/B 0.2 0.2 - 1.2 MG/DL 07/21/2021 4:40 PM T [facility] TOTAL PROTEIN S/P/B 6.9 6.4 - 8.2 G/DL 07/21/2021 4:40 PM T [facility] ALBUMIN S/P/B 3.6 3.4 - 5.0 G/DL 07/21/2021 4:40 PM CDT [facility] AST 24 15 - 37 U/L 07/21/2021 4:40 PM CDT [facility] ALT 32 16 - 60 U/L 07/21/2021 4:40 PM CDT [facility] ALKALINE PHOSPHATASE S/P/B 118 50 - 136 U/L 07/21/2021 4:40 PM CDT [facility] ANION GAP NOT CALCULATED 5 - 15 MMOL/L 07/21/2021 4:40 PM CDT [facility] BUN CREATININE RATIO 18.9 6 - 26 07/21/2021 4:40 PM T [facility] A/G RATIO 1.1 1.0 - 2.0 RATIO 07/21/2021 4:40 PM T [facility] EGFR NON-AFR. AMER. >90 >90 ML/MIN/1. 73 M2 07/21/2021 4:40 PM T [facility] EGFR AFR. AMER. >90 >90 ML/MIN/1. 73 M2 07/21/2021 4:40 PM T [facility] Comment: NOTE: eGFR is not calculated for patients <18 years of age. This is an estimated GFR (CKD EPI) and should not be used for calculating drug doses. 07/21/2021 4:00 PM CDT us Marcus [facility] Final Result [facility] [address] [facility] [address], [place] [phone] * (ABNORMAL) CBC W/DIFF AUTOMATED (07/21/2021 4:00 PM CDT) WBC 9.6 4.4 - 11.0 x10'3/uL 07/21/2021 4:16 PM CDT [facility] RBC 4.47(L) 4.50 - 5.90 x10'6/uL 07/21/2021 4:16 PM T [facility] HGB 12.7(L) 14.0 - 17.5 G/DL 07/21/2021 4:16 PM T [facility] HCT 39.4(L) 41.5 - 50.4 % 07/21/2021 4:16 PM T [facility] MCV 88.1 80.0 - 96.0 FL 07/21/2021 4:16 PM T [facility] MCH 28.4 26.5 - 31.4 PG 07/21/2021 4:16 PM T [facility] MCHC 32.2 31.9 - 34.8 G/DL 07/21/2021 4:16 PM T [facility] RDW 12.2(L) 12.3 - 14.3 % 07/21/2021 4:16 PM T [facility] PLT 203 151 - 353 x10'3/uL 07/21/2021 4:16 PM T [facility] MPV 9.8 9.7 - 11.9 FL 07/21/2021 4:16 PM T [facility] RBC MORPHOLOGY NORMAL 07/21/2021 4:16 PM T [facility] PLT MORPH. NORMAL 07/21/2021 4:16 PM T [facility] WBC MORPHOLOGY NORMAL 07/21/2021 4:16 PM T [facility] LYMPHOCYTES % 16.8 15.8 - 45.0 % 07/21/2021 4:16 PM CDT [facility] NEUTROPHILS % 73.2(H) 42.1 - 71.9 % 07/21/2021 4:16 PM CDT [facility] MONOCYTES % 8.0 5.7 - 12.5 % 07/21/2021 4:16 PM CDT [facility] EOSINOPHILS 0.8 0.0 - 5.6 % 07/21/2021 4:16 PM CDT [facility] BASOPHILS 0.3 0.0 - 1.3 % 07/21/2021 4:16 PM CDT [facility] ABS. NEUTROPHILS 7.01(H) 1.40 - 6.00 x10'3/uL 07/21/2021 4:16 PM CDT [facility] IMMATURE GRANS % 0.9(H) 0.0 - 0.5 % 07/21/2021 4:16 PM CDT [facility] ABS. LYMPHOCYTES 1.61 0.80 - 4.70 x10'3/uL 07/21/2021 4:16 PM CDT [facility] 07/21/2021 4:00 PM CDT us Marcus [facility] Final Result Performing Organization Address City/State/[facility] Co de Phone Number [facility] [address] [place] [address], [place] [phone] * (ABNORMAL) URINALYSIS WI REFLEX TO CULTURE (07/21/2021 3:43 PM CDT) COLOR (U) YELLOW 07/21/2021 3:59 PM CDT [facility] TRANSPARENCY CLOUDY 07/21/2021 3:59 PM CDT [facility] SPECIFIC GRAVITY (U) 1.025 1.000 - 1.030 07/21/2021 3:59 PM CDT [facility] U PH 6.5 5.0 - 9.0 07/21/2021 3:59 PM CDT [facility] LEUKOCYTES (U) TRACE(A) NEGATIVE 07/21/2021 3:59 PM CDT [facility] NITRITES NEGATIVE NEGATIVE 07/21/2021 3:59 PM CDT [facility] PROTEIN (U) 3+(A) NEGATIVE 07/21/2021 3:59 PM CDT [facility] URINE GLUCOSE NEGATIVE NEGATIVE 07/21/2021 3:59 PM CDT [facility] KETONES MG/DL (U) NEGATIVE NEGATIVE 07/21/2021 3:59 PM CDT [facility] BILIRUBIN (U) NEGATIVE NEGATIVE 07/21/2021 3:59 PM CDT [facility] BLOOD (U) 3+(A) NEGATIVE 07/21/2021 3:59 PM CDT [facility] WBC/HPF 5-10 0 - 5 /HPF 07/21/2021 3:59 PM CDT [facility] RBC/HPF 50-100 0 - 5 /HPF 07/21/2021 3:59 PM CDT [facility] EPI/HPF FEW /HPF 07/21/2021 3:59 PM CDT [facility] CULTURE & SENSITIVITY INDICATED? SPECIMEN SETUP FOR CULTURE 07/21/2021 3:59 PM CDT [facility] BACTERIA (U) FEW /HPF 07/21/2021 3:59 PM CDT [facility] URINE SPECIMEN OBTAINED BY CLEAN CATCH PROCEDURE / Unknown 07/21/2021 3:43 PM CDT us Marcus HERNANDEZ URINE ORDERABLES Final Result [facility] [address] [place] [address], [place] [phone] * CULTURE URINE (07/21/2021 3:36 PM CDT) SPEC DESCRIPTION URINE VOIDED 07/21/2021 4:02 PM CDT [facility] SPECIAL REQUESTS NO SPECIAL REQUEST 07/21/2021 4:02 PM CDT [facility] CULTURE RESULT NO GROWTH 2 DAYS 07/24/2021 7:31 AM CDT [facility] URINE SPECIMEN FROM URETHRA / Unknown 07/21/2021 3:36 PM CDT 07/21/2021 4:00 PM CDT us Marcus HERNANDEZ MICROBIOLOGY - GENERAL ORDERABLE S Final Result Performing Organization Address City/State/[facility] Co de Phone Number [facility] [address] [place] [address], [place] [phone] [facility] [address] [place] [address], [place] [phone] documented in this encounter Visit Diagnoses Diagnosis [...] RN) documented in this encounter Care Teams Chiropractic Assistant Relationship Specialty Start Date End Date Brooke Mo MD [employer] [address] [address] PCP - General INTERNAL MEDICINE 05/09/19 documented as of this encounter
--- OUTSIDE RECORDS SUMMARY | 2024-03-26 21:17 | XMS_ITS | Encounter Summary ---
Author Organization [facility] Address [address] [place] [address]. [place], [place] [address] [place] [address] Care Team Providers Care Labor Economics Professor Name Role Phone Jose Mo MD Primary Care Provider [phone] Encounter Details Date Type Department Care Team (Latest Contact Info) Description 03/23/2022 Travel Social History Tobacco Use Types Packs/Day Years Used Date Smoking Tobacco: Former Cigarettes Q uit: 06/11/2018 Smokeless Tobacco: Never Alcohol Use Standard Drinks/Week Comments Yes 0 (1 standard drink = 0.6 oz pur e alcohol) socially Sex and Gender Information Value Date Recorded Sex Assigned at Male 05/10/2019 1:27 AM BARYTES GRINDER Legal Sex Male 7:38 PM CDT Gender Identity Male 05/10/2019 1:27 AM BARYTES GRINDER Sexual Orientation Not on file COVID-19 Exposure Response Date Recorded In the last 10 days, have yo u been in contact with someone who was confirmed or suspected to have Coronavirus/COVID-19? No / Unsure 03/23/2022 10:29 AM BARYTES GRINDER documented as of this encounter Functional Status * RETIRED Are you deaf or do you have serious difficulty hearing Answer Date of Assessment Author Status No 05/15/2019 12:02 PM BARYTES GRINDER 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 Answer Date of Assessment Author Status No 05/15/2019 12:02 PM BARYTES GRINDER Acti ve * Do you have serious [...] Author Return home General No Zayra Kidd, DIGITAL SALES DIRECTOR Note: Plan to return home with significant other. No DME or home health needed at this time. documented as of this encounter Visit Diagnoses Not on filedocumented in this encounter Care Teams Labor Economics Professor Relationship Specialty Start Date End Date Jose Mo MD [address] [address] PCP - General INTERNAL MEDICINE 05/09/19 documented as of this encounter
--- OUTSIDE RECORDS SUMMARY | 2024-03-26 21:17 | XMS_ITS | Encounter Summary ---
Author Organization [facility] Address [address] [place] [address]. [place], [place] [address] [place] [address] Care Team Providers Care Booth Cleaner Name Role Phone Jose Mo MD Primary Care Provider [phone] Reason for Visit * Reason Comments Fever 9 Weeks To 74 Years Encounter Details Date Type Department Care Team (Late st Contact Info) Description 03/13/2021 2:14 PM PHYSICAL EDUCATION TEACHER - 03/13/2021 3:00 PM [facility] Emergency [facility] Emergency Room [address] [place] [address] Layla Arreaga, [place] [address] Fever 9 Weeks To 74 Years Discharge [...] Sex Assigned at Male 05/10/2019 1:27 AM PHYSICAL EDUCATION TEACHER Legal Sex Male 7:38 PM CDT Gender Identity Male 05/10/2019 1:27 AM PHYSICAL EDUCATION TEACHER Sexual Orientation Not on file COVID-19 Exposure Response Date Recorded In the last month, have you been in contact with someone who was confirmed or suspected to have Coronavirus / COVID-19? No / Unsure 03/13/2021 2:29 PM PHYSICAL EDUCATION TEACHER documented as of this encounter Last Filed Vital Signs Vital Sign Reading Time Taken Comments Blood Pressure 104/63 03/13/2021 2:30 PM PHYSICAL EDUCATION TEACHER Pulse 81 03/13/2021 2:29 PM PHYSICAL EDUCATION TEACHER Temperature 36.6 ??C (97.8 ??F) 03/13/2021 2:29 PM CS T Respiratory Rate 17 03/13/2021 2:29 PM PHYSICAL EDUCATION TEACHER Oxygen Saturation 96% 03/13/2021 2:30 PM PHYSICAL EDUCATION TEACHER Inhaled Oxygen Concentration - - Weight 108.9 kg (240 lb) 03/13/2021 2:29 PM PHYSICAL EDUCATION TEACHER Height 170.2 cm (5' 7 ) 03/13/2021 2:29 PM PHYSICAL EDUCATION TEACHER Body Mass Index 37.59 03/13/2021 2:29 PM PHYSICAL EDUCATION TEACHER documented in this encounter Functional Status * RETIRED Are you deaf or do you have serious difficulty hearing Answer Date of Assessment Author Status No 05/15/2019 12:02 PM PHYSICAL EDUCATION TEACHER 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 Answer Date of Assessment Author Status No 05/15/2019 12:02 PM PHYSICAL EDUCATION TEACHER Acti ve * Do you have serious difficulty walking or climbing stairs? Answer Date of Assessment Author Status No 05/15/2019 12:02 PM Cassie Perdomo RN Active * Do you have difficulty dressing or bathing? Answer Date of Assessment Author Status No 05/15/2019 12:02 PM Cassie Perdmoo RN Active * Because of a physical, [...] Layla Arreaga, GÓMEZ - 03/13/2021 2:49 PM PHYSICAL EDUCATION TEACHER Follow discharge instructions carefully. You may take over the counter tylenol or ibuprofen for pain and fever. Return for worsening of symptoms. ICAL EDUCATION TEACHER * Attachments The following attachments cannot be sent through Care Everywhere. * COVID-19 Discharge Instructions (Cape Verdean) * Preventing the Spread of an Infectious Disease ([place] Verdean) * Tips to Help You [place] in Uncertain Times ([place]dean) documented in this encounter Medications at Time [...] ONSET [id number] HOSPITALIZATION STATUS NO RESIDENT OF [facility] NO INFLUENZA A & B Specimen: NASOPHARYNGEAL [...] Gem Alejandro MD at 03/13/2021 11:02 PM PHYSICAL EDUCATION TEACHER ICAL EDUCATION TEACHER ICAL EDUCATION TEACHER * Tanisha Shafer RN - 03/13/2021 2:31 PM CST Pt presents to ER with c/o feeling fatigue. Pt requesting covid swab to return back to work. C/o fever, tmax of 101. Afebrile upon arrival. ICAL EDUCATION TEACHER documented in this encounter Plan of Treatment Not on file documented as of this encounter Goals Goal Patient Goal Type Associated Problems Recent Progress Patient-Stated? Author Return home General No Zayra Kidd, COST COORDINATOR Note: Plan to return home with significant other. No DME or home health needed at this time. documented as of this encounter Procedures Procedure Name Priority Date/Time Associated Diagnosis Comments CORONAVIRUS (COVID-19) ANTIGEN DIRECT OPTICAL STAT 03/13/2021 2:26 PM PHYSICAL EDUCATION TEACHER INFLUENZA A & B STAT 03/13/2021 2:26 PM PHYSICAL EDUCATION TEACHER documented in this encounter Results * INFLUENZA A & B (03/13/2021 2:26 PM PHYSICAL EDUCATION TEACHER) SPECIMEN TYPE NASAL 03/13/2021 2:32 PM PHYSICAL EDUCATION TEACHER [facility] INFLUENZA A NEGATIVE NEGATIVE 03/13/2021 2:49 PM PHYSICAL EDUCATION TEACHER [facility] INFLUENZA B NEGATIVE NEGATIVE 03/13/2021 2:49 PM PHYSICAL EDUCATION TEACHER [facility] NASOPHARYNGEAL SWAB / Unknown 03/13/2021 2:26 PM PHYSICAL EDUCATION TEACHER Layla MAGAÑA MICROBIOLOGY - GENERAL OR DERABLES Final Result [facility] [address] [place] [address], [place] [phone] * (ABNORMAL) CORONAVIRUS (COVID-19) ANTIGEN [RAPID IN HOUSE TEST] (03/13/2021 2:26 PM PHYSICAL EDUCATION TEACHER) CORONAVIRUS ANTIGEN IA POSITIVE(AA ) NEGATIVE 03/13/2021 2:37 PM PHYSICAL EDUCATION TEACHER [facility] Comment: THIS TEST HAS BEEN AUTHORIZED BY THE FDA UNDER AN EMERGENCY USE AUTHORIZATION (EUA) FOR USE BY AUTHORIZED LABORATORIES. ALERT VALUE CALLED TO AND READ BACK BY: BIGG CLAY ED 1437/DVO SPECIMEN TYPE NASAL 03/13/2021 2:26 PM PHYSICAL EDUCATION TEACHER [facility] FIRST TEST YES 03/13/2021 2:26 PM PHYSICAL EDUCATION TEACHER [facility] EMPLOYED IN HEALTHCARE NO 03/13/2021 2:26 PM PHYSICAL EDUCATION TEACHER [facility] SYMPTOMATIC DEFINED BY CDC YES 03/13/2021 2:26 PM PHYSICAL EDUCATION TEACHER [facility] DATE OF SYMPTOM ONSET [id number]/13/2021 2:26 PM PHYSICAL EDUCATION TEACHER [facility] HOSPITALIZATION STATUS NO 03/13/2021 2:26 PM PHYSICAL EDUCATION TEACHER [facility] RESIDENT OF [facility] NO 03/13/2021 2:26 PM PHYSICAL EDUCATION TEACHER [facility] Specimen from nose (specimen) NASAL STRUCTURE / Unknown 03/13/2021 2:26 PM PHYSICAL EDUCATION TEACHER Layla SENP MICROBIOLOGY - GENERAL OR DERABLES Final Result [facility] [address] [place] [address], [place] [phone] documented in this encounter Visit Diagnoses Diagnosis COVID-19- Primary documented in this encounter Additional Health Concerns Infection Onset Date Last Indicated Resolved Time COVID-19 Rule Out 03/13/2021 03/13/2021 03/13/2021 2:37 PM PHYSICAL EDUCATION TEACHER COVID-19 Confirmed 03/13/2021 03/13/2021 2 12:32 AM PHYSICAL EDUCATION TEACHER documented as of this encounter Care Teams Booth Cleaner Relationship Specialty Start Date End Date Jose Mo MD [address] [address] PCP - General INTERNAL MEDICINE 05/09/19 documented as of this encounter
--- OUTSIDE RECORDS SUMMARY | 2024-03-26 21:17 | XMS_ITS | Encounter Summary ---
Author Organization [facility] Address [address] [place] [address]. [place], [place] [address] [place] [address] Care Team Providers Care Medical Registrar Name Role Phone Jose Mo MD Primary Care Provider [phone] Reason for Referral * (Routine) - Closed Specialty Diagnoses / Procedures Referred By Barbara t Referred To Contact Procedures SPLINT APPLICATION Radha Whitten MD [address] [place] [address] Phone: tel: fax: Referral ID Status Reason Start Date Expiration Date Visits Re quested Visits Authorized [id number] Closed 01/28/2021 02/28/2022 1 1 Reason for Visit * Reason Comments Wrist Injury Encounter Details Date Type Department Care Team (Late st Contact Info) Description 01/28/2021 6:14 PM CDT - 01/28/2021 7:40 PM CDT Emergency [facility] Emergency Room [id number] [place] [address] Radha Whitten MD [address] [place] [address] Wrist Injury Discharge Disposition: Home or Self Care (Routine Discharge) Social History Tobacco Use Types Packs/Day Years Used Date Smoking Tobacco: Former Cigarettes Q uit: 06/11/2018 Smokeless Tobacco: Never Alcohol Use Standard Drinks/Week Comments Yes 0 (1 standard drink = 0.6 oz pur e alcohol) socially Sex and Gender Information Value Date Recorded Sex Assigned at Male 05/10/2019 1:27 AM RANGE MANAGER Legal Sex Male 7:38 PM CDT Gender Identity Male 05/10/2019 1:27 AM RANGE MANAGER Sexual Orientation Not on file COVID-19 Exposure [...] Assessment Author Status No 05/15/2019 12:02 PM RANGE MANAGER 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 Answer Date of Assessment Author Status No 05/15/2019 12:02 PM RANGE MANAGER Acti ve * Do you have [...] Care Everywhere. * Hand Fracture Discharge Instructions (Kosovan) documented in this encounter Medications at Time [...] No questions or changes at this time. NAGUS OSBORN RN * Angus Osborn RN - [...] RT MIN 3V Final Result by User, [id number] (01/28 989) EXAMINATION: XR WRIST RT MIN 3V INDICATIONS: [...] Follow-Up: Jose Mo MD [facility] [address] [address] In 1 week RADHA WHITTEN MD 01/28/2021 [...] Author Return home General No Zayra Kidd, COMMUNITY DEVELOPMENT SPECIALIST Note: Plan to return home with significant [...] Primary documented in this encounter Care Teams Medical Registrar Relationship Specialty Start Date End Date Jose Mo MD [facility] [address] [place] [address] PCP - General INTERNAL MEDICINE 05/09/19 documented as of this encounter
--- OUTSIDE RECORDS SUMMARY | 2024-03-26 21:17 | XMS_ITS | Encounter Summary ---
Author Organization [facility] Address [address] [place] [address]. [place], [place] [address] [place] [address] Care Team Providers Care Cigarette Stamper Name Role Phone Jose Mo MD Primary Care Provider [phone] Reason for Referral * Imaging (Emergency) - New Request Specialty Diagnoses / Procedures Referred By Barbara goldman Referred To Contact RADIOLOGY Procedures CT ABD+PEL W IV CON ONLY Micah Pena DO [address] [place] [address] Phone: tel: fax: Referral ID Status Reason Start Date Expiration Date V isits Requested Visits Authorized [id number] New Request 07/27/2023 07/26/2024 1 1 Reason for Visit * Reason Comments Vomiting Encounter Details Date Type Department Care Team (Late st Contact Info) Description 07/27/2023 7:40 PM CDT - 07/27/2023 11:09 PM CDT Emergency [facility] Emergency Room [address] [place] [address] Micah Pena DO [address] [place] [address] Vomiting Discharge Disposition: Home or Self Care (Routine Discharge) Social History Tobacco Use Types Packs/Day Years Used Date Smoking Tobacco: Former Cigarettes Q uit: 06/11/2018 Smokeless Tobacco: Never Alcohol Use Standard Drinks/Week Comments Not Currently 0 (1 standard drink = 0.6 oz pur e alcohol) socially Sex and Gender Information Value Date Recorded Sex Assigned at Male 05/10/2019 1:27 AM POULTRY BARN MANAGER Legal Sex Male 7:38 PM CDT Gender Identity Male 05/10/2019 1:27 AM POULTRY BARN MANAGER Sexual Orientation Not on file documented [...] Assessment Author Status No 05/15/2019 12:02 PM POULTRY BARN MANAGER 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 Answer Date of Assessment Author Status No 05/15/2019 12:02 PM POULTRY BARN MANAGER Acti ve * Do you have [...] Status No 05/15/2019 12:02 PM Cassie Perdomo I RN Active documented in this encounter Discharge Instructions * Attachments The following attachments cannot be sent through Care Everywhere. * Nausea and Vomiting, Adult ED (Singaporean) documented in this encounter Medications at Time [...] History of blood transfusion 1987 Neck fracture ([facility]) Skull fracture ([facility]) PAST SURGICAL HISTORY: Past Surgical History: Procedure [...] IV CON ONLY Final Result by User, [email or web address] (07/26 2122) EXAMINATION: CT ABD+PEL W CON [...] Gastroenteritis Disposition: Discharge Micah Pena DO 07/27/23 4250 * Lewis Bloom RN - 07/27/2023 7:47 [...] Author Return home General No Zayra Kidd, VALUE STREAM COACH Note: Plan to return home with significant [...] COLOR (U) YELLOW 07/27/2023 10:[address] [facility] TRANSPARENCY CLEAR 07/27/2023 10:[address] [facility] SPECIFIC GRAVITY (U) 1.010 1.000 - 1.030 07/27/2023 10:[address] [facility] U PH 5.5 5.0 - 9.0 07/27/2023 10:[address] [facility] LEUKOCYTES (U) NEGATIVE NEGATIVE 07/27/2023 10:[address] [facility] NITRITES NEGATIVE NEGATIVE 07/27/2023 10:[address] [facility] PROTEIN RANDOM (U) NEGATIVE NEGATIVE 07/27/2023 10:[address] [facility] GLUCOSE (U) NEGATIVE NEGATIVE 07/27/2023 10:[address] [facility] KETONES MG/DL (U) NEGATIVE NEGATIVE 07/27/2023 10:[address] [facility] BILIRUBIN (U) NEGATIVE NEGATIVE 07/27/2023 10:[address] [facility] BLOOD (U) NEGATIVE NEGATIVE 07/27/2023 10:[address] [facility] WBC/HPF NONE SEEN 0 - 5 /HPF 07/27/2023 10:[address] [facility] RBC/HPF NONE SEEN 0 - 5 /HPF 07/27/2023 10:[address] [facility] EPI/HPF RARE /HPF 07/27/2023 10:[address] [facility] CULTURE & SENSITIVITY INDICATED? CULTURE IS NOT INDICATED 07/27/2023 10:[address] [facility] URINE SPECIMEN OBTAINED BY CLEAN CATCH PROCEDURE / Unknown 07/27/2023 10:04 PM CDT us Micah Pena DO URINE ORDERABLES Final Re sult [facility] [address] [place], [place] [address] [place] [address] * CT ABD+PEL W IV CON ONLY [...] - 77 UNITS/L 07/27/2023 8:[address] [facility] 07/27/2023 8:00 PM CDT Micah Pena DO LABORATORY Final Res ult Performing Organization Address City/[facility]/ZIP Co de Phone Number [facility] [address] [place] [address], [place] [phone] * TSH W/REFLEX (07/27/2023 8:00 PM CDT) TSH 1.841 0.358 - 3.74 uIU/ML 07/27/2023 8:[address] [facility] Comment: HIGH DOSES OF BIOTIN MAY INTERFERE WITH THIS TEST RESULT. CORRELATION TO CLINICAL HISTORY AND PRESENTATION RECOMMENDED. FREE T4 NOT INDICATED 07/27/2023 8:00 PM CDT Micah Pena DO LABORATORY Final Res ult Performing Organization Address City/[facility]/ZIP Co de Phone Number [facility] [address] [place] [address], [place] [phone] * RESP SYNCYTIAL VIRUS (07/27/2023 8:00 PM CDT) SPECIMEN TYPE NASOPHARYNGEAL SWAB 07/27/2023 8:[address] [facility] RAPID RSV NEGATIVE NEGATIVE 07/27/2023 8:[address] [facility] NASOPHARYNGEAL SWAB / Unknown 07/27/2023 8:00 PM CDT Micah Pena DO MICROBIOLOGY - GENERAL OR DERABLES Final Result Performing Organization Address City/[facility]/ZIP Co de Phone Number [facility] [address] [place] [address], * INFLUENZA A & B (07/27/2023 8:00 PM CDT) SPECIMEN TYPE NASOPHARYNX 07/27/2023 8:[address] [facility] INFLUENZA A NEGATIVE NEGATIVE 07/27/2023 8:[address] [facility] INFLUENZA B NEGATIVE NEGATIVE 07/27/2023 8:[address] [facility] NASAL STRUCTURE / Unknown 07/27/2023 8:00 PM CDT Micah Adi Shiveryn HENRY MICROBIOLOGY - GENERAL OR DERABLES Final Result Performing Organization Address City/[facility] Co de Phone Number [facility] [address] [place] [address], [place] [phone] * CORONAVIRUS (COVID-19) MOLECULAR (07/27/2023 8:00 PM CDT) CORONAVIRUS SARS COV 2 RNA NEGATIVE NEGATIVE 07/27/2023 8:[address] [facility] Comment: NEGATIVE RESULTS DO NOT [...] SPECIMEN TYPE NASAL 07/27/2023 8:[address] [facility] NASOPHARYNGEAL SWAB / Unknown 07/27/2023 8:00 PM CDT us Micah Pena DO MICROBIOLOGY - GENERAL OR DERABLES Final Result Performing Organization Address City/[facility]/ZIP Co de Phone Number [facility] [address] [place] [address], [place] [phone] * MAGNESIUM (07/27/2023 8:00 PM CDT) MAGNESIUM 1.9 1.8 - 2.4 MG/DL 07/27/2023 8:[address] [facility] 07/27/2023 8:00 PM CDT us Micah Pena DO LABORATORY Final Res ult Performing Organization Address [facility]/ZIP Co de Phone Number [facility] [address] [place] [address], [place] [phone] * (ABNORMAL) COMPREHENSIVE METABOLIC PANEL (07/27/2023 8:00 PM CDT) GLUCOSE 90 70 - 99 MG/DL 07/27/2023 8:[address] [facility] BUN 15 7 - 18 MG/DL 07/27/2023 8:[address] [facility] CREATININE S/P/B 0.85 0.7 - 1.3 MG/DL 07/27/2023 8:[address] [facility] SODIUM S/P/B 138 136 - 145 MMOL/L 07/27/2023 8:[address] [facility] POTASSIUM S/P/B 3.8 3.5 - 5.1 MMOL/L 07/27/2023 8:[address] [facility] CHLORIDE S/P/B 99(L) 100 - 108 MMOL/L 07/27/2023 8:[address] [facility] CO2 27.4 21 - 32 MMOL/L 07/27/2023 8:38 PM [facility] CALCIUM S/P/B 9.0 8.5 - 10.1 MG/DL 07/27/2023 8:38 PM [facility] BILIRUBIN TOTAL S/P/B 0.3 0.2 - 1.2 MG/DL 07/27/2023 8:38 PM [facility] TOTAL PROTEIN S/P/B 8.1 6.4 - 8.2 G/DL 07/27/2023 8:38 PM [facility] ALBUMIN S/P/B 4.3 3.4 - 5.0 G/DL 07/27/2023 8:38 PM [facility] AST 21 15 - 37 U/L 07/27/2023 8:38 PM [facility] ALT 31 16 - 60 U/L 07/27/2023 8:38 PM [facility] ALKALINE PHOSPHATASE S/P/B 135 50 - 136 U/L 07/27/2023 8:38 PM [facility] ANION GAP 11.6 5 - 15 MMOL/L 07/27/2023 8:38 PM [facility] BUN CREATININE RATIO 17.6 6 - 26 07/27/2023 8:38 PM [facility] A/G RATIO 1.1 1.0 - 2.0 RATIO 07/27/2023 8:38 PM [facility] GFR ESTIMATE >90 >90 ML/MIN/1.7 3 M2 07/27/2023 8:38 PM [facility] Comment: NOTE: eGFR is not calculated for patients <18 years of age. This is an estimated GFR calculation using the new CKD EPI creatinine equation without race and so does not require a correction factor for race. This estimated GFR should not be used for calculating drug doses. 07/27/2023 8:00 PM CDT Micah Pena DO LABORATORY Final Res ult [facility] [address] [place] [address], * (ABNORMAL) CBC W/DIFF AUTOMATED (07/27/2023 8:00 PM CDT) WBC 8.00 4.4 - 11.0 x10'3/uL 07/27/2023 8:[address] [facility] RBC 4.87 4.50 - 5.90 x10'6/uL 07/27/2023 8:[address] [facility] HGB 14.3 14.0 - 17.5 G/DL 07/27/2023 8:[address] [facility] HCT 43.2 41.5 - 50.4 % 07/27/2023 8:[address] [facility] MCV 88.7 80.0 - 96.0 FL 07/27/2023 8:[address] [facility] MCH 29.4 26.5 - 31.4 PG 07/27/2023 8:[address] [facility] MCHC 33.1 31.9 - 34.8 G/DL 07/27/2023 8:[address] [facility] RDW 12.9 12.3 - 14.3 % 07/27/2023 8:[address] [facility] PLT 213 151 - 353 x10'3/uL 07/27/2023 8:[address] [facility] MPV 9.5(L) 9.7 - 11.9 FL 07/27/2023 8:[address] [facility] RBC MORPHOLOGY NORMAL 07/27/2023 8:[address] [facility] PLT MORPH. NORMAL 07/27/2023 8:[address] [facility] WBC MORPHOLOGY NORMAL 07/27/2023 8:[address] [facility] LYMPHOCYTES % 14.1(L) 15.8 - 45.0 % 07/27/2023 8:[address] [facility] NEUTROPHILS % 80.3(H) 42.1 - 71.9 % 07/27/2023 8:[address] [facility] MONOCYTES % 4.0(L) 5.7 - 12.5 % 07/27/2023 8:[address] [facility] EOSINOPHILS 0.9 0.0 - 5.6 % 07/27/2023 8:[address] [facility] BASOPHILS 0.3 0.0 - 1.3 % 07/27/2023 8:[address] [facility] ABS. NEUTROPHILS 6.43(H) 1.40 - 6.00 x10'3/uL 07/27/2023 8:[address] [facility] IMMATURE GRANS % 0.4 0.0 - 0.5 % 07/27/2023 8:[address] [facility] ABS. LYMPHOCYTES 1.13 0.80 - 4.70 x10'3/uL 07/27/2023 8:[address] [facility] 07/27/2023 8:00 PM CDT us Micah Pena DO LABORATORY Final Res ult [facility] [address] [place] [address], [place] [phone] documented in this encounter Visit Diagnoses Diagnosis [...] documented as of this encounter Care Teams Cigarette Stamper Relationship Specialty Start Date [place] [address] PCP - General INTERNAL MEDICINE 05/09/19 documented as of this encounter
--- OUTSIDE RECORDS SUMMARY | 2024-03-26 21:17 | XMS_ITS | Encounter Summary ---
Author Organization [facility] Address [address] [place] [address]. [place], [place] [address] [place] [address] Care Team Providers Care Certified Surgical Tech/First Assistant Name Role Phone Jose Mo MD Primary Care Provider [phone] Encounter Details Date Type Department Care Team (Latest Contact Info) Description 01/28/2021 Travel Social History Tobacco Use Types Packs/Day Years Used Date Smoking Tobacco: Former Cigarettes Q uit: 06/11/2018 Smokeless Tobacco: Never Alcohol Use Standard Drinks/Week Comments Yes 0 (1 standard drink = 0.6 oz pur e alcohol) socially Sex and Gender Information Value Date Recorded Sex Assigned at Male 05/10/2019 1:27 AM PSYCHOLOGIST ENGINEERING Legal Sex Male 7:38 PM CDT Gender Identity Male 05/10/2019 1:27 AM PSYCHOLOGIST ENGINEERING Sexual Orientation Not on file COVID-19 Exposure [...] Assessment Author Status No 05/15/2019 12:02 PM PSYCHOLOGIST ENGINEERING 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 Answer Date of Assessment Author Status No 05/15/2019 12:02 PM PSYCHOLOGIST ENGINEERING Acti ve * Do you have serious difficulty walking or climbing stairs? Answer Date of Assessment Author Status No 05/15/2019 12:02 PM PSYCHOLOGIST ENGINEERING Cassie Dawn RN Active * Do you [...] Author Return home General No Zayra Kidd, INTERNATIONAL STUDENT COUNSELOR Note: Plan to return home with significant other. No DME or home health needed at this time. documented as of this encounter Visit Diagnoses Not on filedocumented in this encounter Care Teams Certified Surgical Tech/First Assistant Relationship Specialty Start Date End Date Jose Mo MD [address] [address] PCP - General INTERNAL MEDICINE 05/09/19 documented as of this encounter
--- OUTSIDE RECORDS SUMMARY | 2024-03-26 21:17 | XMS_ITS | Encounter Summary ---
Author Organization [facility] Address [address] [place] [address]. [place], [place] [address] [place] [address] Care Team Providers Care Nib Adjuster Name Role Phone Jose Mo MD Primary Care Provider [phone] Reason for Visit * Reason Comments Foot Injury Encounter Details Date Type Department Care Team (Late st Contact Info) Description 03/23/2022 10:30 AM CANVAS CUTTER MACHINE - 03/23/2022 12:04 PM CANVAS CUTTER MACHINE Emergency [facility] Room [address] [place] [address] Eliazar Darnell, [facility] Foot Injury Discharge Disposition: Home or Self Care (Routine Discharge) Social History Tobacco Use Types Packs/Day Years Used Date Smoking Tobacco: Former Cigarettes Q uit: 06/11/2018 Smokeless Tobacco: Never Alcohol Use Standard Drinks/Week Comments Yes 0 (1 standard drink = 0.6 oz pur e alcohol) socially Sex and Gender Information Value Date Recorded Sex Assigned at Male 05/10/2019 1:27 AM CANVAS CUTTER MACHINE Legal Sex Male 7:38 PM CDT Gender Identity Male 05/10/2019 1:27 AM CANVAS CUTTER MACHINE Sexual Orientation Not on file COVID-19 Exposure Response Date Recorded In the last 10 days, have yo u been in contact with someone who was confirmed or suspected to have Coronavirus/COVID-19? No / Unsure 03/23/2022 10:29 AM CANVAS CUTTER MACHINE documented as of this encounter Last Filed Vital Signs Vital Sign Reading Time Taken Comments Blood Pressure 107/38 03/23/2022 11:35 AM CANVAS CUTTER MACHINE Pulse 74 03/23/2022 10:36 AM CANVAS CUTTER MACHINE Temperature 35.7 ??C (96.3 ??F) 03/23/2022 10:36 AM C Respiratory Rate 20 03/23/2022 10:36 AM CANVAS CUTTER MACHINE Oxygen Saturation 98% 03/23/2022 11:35 AM CANVAS CUTTER MACHINE Inhaled Oxygen Concentration - - Weight 113.4 kg (250 lb) 03/23/2022 10:36 AM CANVAS CUTTER MACHINE Height 170.2 cm (5' 7 ) 03/23/2022 10:36 AM CANVAS CUTTER MACHINE Body Mass Index 39.16 03/23/2022 10:36 AM CANVAS CUTTER MACHINE documented in this encounter Functional Status * RETIRED Are you deaf or do you have serious difficulty hearing Answer Date of Assessment Author Status No 05/15/2019 12:02 PM CANVAS CUTTER MACHINE 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 Answer Date of Assessment Author Status No 05/15/2019 12:02 PM CANVAS CUTTER MACHINE Acti ve * Do you have serious [...] Instructions* GÓMEZ Rollins-BC - 03/23/2022 11:06 AM CANVAS CUTTER MACHINE Keep the post op shoe in place [...] healing well, they may haveyou see a tool trouble shooter or orthopedic surgeon. Return to ER for uncontrolled pain, discoloration of skin, or tingling/numbness of extremity. AS CUTTER MACHINE AS CUTTER MACHINE AS CUTTER MACHINE * Attachments The following attachments cannot be sent through Care Everywhere. * Toe Fracture Discharge Instructions (Cook Islander) documented in this encounter Medications at Time [...] TIBIA+FIBULA LT 2V Final Result by User, [id number] (03/23 111) 2 VIEWS OF THE LEFT [...] FOOT LT 3V Final Result by User, [id number] (03/23 111) 3 VIEWS OF THE LEFT [...] Supply, Starting 03/23/2022, Eprescribe Class: Eprescribe Pharmacy: [facility] [address] [place] [address] [address] (Ph #: [phone]) Plan of care discussed with patient. Patient [...] instructions: Jose Mo MD [employer] [facility] [place] [address] Call in 2 days If symptoms worsen LULÚ ROLLINS Please excuse any grammatical or spelling errors as this chart was documented using Sooqini, a dictation software. LULÚ Rollins 03/23/22 1417 Cosigned by Travis Holcomb MD at 03/24/2022 7:07 AM CANVAS CUTTER MACHINE AS CUTTER MACHINE AS CUTTER MACHINE * Jaylin Newman RN - 03/23/2022 10:40 AM CST 51 yo male in with c/o left foot pain since falling last night. Patient states his legs gave out and he rolled onto his foot . Patient currently rates pain a 9/10 at this time and denies taking any medication prior to ED arrival. AS CUTTER MACHINE documented in this encounter Plan of Treatment Not on file documented as of this encounter Goals Goal Patient Goal Type Associated Problems Recent Progress Patient-Stated? Author Return home General No Zayra Kidd, CARE TRAINER Note: Plan to return home with significant other. No DME or home health needed at this time. documented as of this encounter Procedures Procedure Name Priority Date/Time Associated Diagnosis Comments XR TIBIA+FIBULA LT 2V STAT 03/23/2022 11:03 AM CANVAS CUTTER MACHINE XR FOOT LT 3V STAT 03/23/2022 11:03 AM CANVAS CUTTER MACHINE documented in this encounter Results * XR FOOT LT 3V (03/23/2022 11:03 AM CANVAS CUTTER MACHINE) Anatomical Region Laterality Modality Foot Radiographic Cata ging 03/23/2022 11:0 9 AM CANVAS CUTTER MACHINE Impressions 03/23/2022 11:09 AM CANVAS CUTTER MACHINE IMPRESSION: No acute findings Ordered By: ELIAZAR DARNELL Interpreted By: Selvin Sheppard MD, 03/23/2022 11:09 AM Narrative 03/23/2022 11:09 AM CANVAS CUTTER MACHINE 3 VIEWS OF THE LEFT FOOT CLINICAL [...] Sheppard MD, 03/23/2022 11:09 AM Eliazar Darnell BUILDING SPECIALIST-BC GENERAL IMAGING Final Res ult * XR TIBIA+FIBULA LT 2V (03/23/2022 11:03 AM CANVAS CUTTER MACHINE) Anatomical Region Laterality Modality TibFib Radiographic Cata ging 03/23/2022 11:0 9 AM CANVAS CUTTER MACHINE Impressions 03/23/2022 11:10 AM CANVAS CUTTER MACHINE IMPRESSION: No acute findings Ordered By: ELIAZAR DARNELL Interpreted By: Selvin Sheppard MD, 03/23/2022 11:09 AM Narrative 03/23/2022 11:10 AM CANVAS CUTTER MACHINE 2 VIEWS OF THE LEFT LOWER LEG [...] Sheppard MD, 03/23/2022 11:09 AM Eliazar Darnell BUILDING SPECIALIST-BC GENERAL IMAGING Final Res ult documented in [...] in 24 hours. Given 03/23/2022 10:46 AM CANVAS CUTTER MACHINE 1 tablet documented in this encounter Active and Recently Administered Medications Times are shown in CANVAS CUTTER MACHINE. Scheduled Medication Order 03/21/2022 03/22/2022 03/23/2022 HYDROcodone-acetaminophen (NORCO) 5-325 MG tablet 1 tablet (COMPLETED) 1 tablet, Oral, Once, 1 dose, On 03/23/22 at 1045, Maximum dose of acetaminophen is 4000 mg from all sources in 24 hours. 1046 (Given - Provid er: Jaylin Newman RN) documented in this encounter Care Teams Nib Adjuster Relationship Specialty Start Date End Date Jose Mo MD [address] [address] PCP - General INTERNAL MEDICINE 05/09/19 documented as of this encounter
--- OUTSIDE RECORDS SUMMARY | 2024-03-26 21:17 | XMS_ITS | Encounter Summary ---
Author Organization [facility] Address [address] [place] [address]. [place], [place] [id number] [place] [address] Care Team Providers Care Frame Nailer Name Role Phone Jose Mo MD Primary Care Provider [phone] Encounter Details Date Type Department Care Team [...] Sex Assigned at Male 05/10/2019 1:27 AM TRANSPORTATION SPECIALIST Legal Sex Male 7:38 PM CDT Gender Identity Male 05/10/2019 1:27 AM TRANSPORTATION SPECIALIST Sexual Orientation Not on file COVID-19 Exposure [...] Assessment Author Status No 05/15/2019 12:02 PM TRANSPORTATION SPECIALIST 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 Answer Date of Assessment Author Status No 05/15/2019 12:02 PM TRANSPORTATION SPECIALIST Acti ve * Do you have [...] Author Return home General No Zayra Kidd, ACCOUNT ADJUSTER Note: Plan to return home with significant other. No DME or home health needed at this time. documented as of this encounter Visit Diagnoses Not on filedocumented in this encounter Care Teams Frame Nailer Relationship Specialty Start Date End Date Jose Mo MD [address] [address] PCP - General INTERNAL MEDICINE 05/09/19 documented as of this encounter
--- OUTSIDE RECORDS SUMMARY | 2024-03-26 21:17 | XMS_ITS | Encounter Summary ---
Author Organization [facility] Address [address] [place] [address]. [place], [place] [address] [place] [address] Care Team Providers Care Dual Rate Supervisor Name Role Phone Jose Mo MD Primary Care Provider [phone] Saroj Griffin MD Unavailable [phone] Ania Topete NP Unavailable [phone] Reason for Visit * Reason Onset Date Comments Follow Up Call 06/17/2019 Encounter Details Date Type Department Care Team (Late st Contact Info) Description 06/17/2019 Telephone [facility] [address] [place] [address] Denny Wilde, HOLA Follow Up Call Social History Tobacco Use Types Packs/Day Years Used Date Smoking Tobacco: Former Cigarettes Q uit: 06/11/2018 Smokeless Tobacco: Never Alcohol Use Standard Drinks/Week Comments Yes 0 (1 standard drink = 0.6 oz pur e alcohol) socially Sex and Gender Information Value Date Recorded Sex Assigned at Male 05/10/2019 1:27 AM GARAGEMAN Legal Sex Male 7:38 PM CDT Gender Identity Male 05/10/2019 1:27 AM GARAGEMAN Sexual Orientation Not on file documented as of this encounter Functional Status * RETIRED Are you deaf or do you have serious difficulty hearing Answer Date of Assessment Author Status No 05/15/2019 12:02 PM GARAGEMAN Acti ve * RETIRED Are you blind [...] Author Return home General No Zayra Kidd, BREAKER OFF Note: Plan to return home with significant other. No DME or home health needed at this time. documented as of this encounter Visit Diagnoses Not on filedocumented in this encounter Additional Health Concerns Infection Onset Date Last Indicated Resolved Time COVID-19 Rule Out 12/29/2020 12/29/2020 12/29/2020 3:34 PM CDT COVID-19 Rule Out 03/13/2021 03/13/2021 03/13/2021 2:37 PM GARAGEMAN COVID-19 Confirmed 03/13/2021 03/13/2021 12:32 AM GARAGEMAN COVID-19 Rule Out 07/27/2023 07/27/2023 07/27/2023 8:33 PM CDT documented as of this encounter Care Teams Dual Rate Supervisor Relationship Specialty Start Date End Date Jose Mo MD [address] [address] PCP - General INTERNAL MEDICINE 05/09/19 [place] [address] [place] [address] Consulting Physician UROLOGY 11/20/23 Ania Topete NP [address] [phone] NURSE PRACTITIONER 11/20/23 documented as of this encounter
--- OUTSIDE RECORDS SUMMARY | 2024-03-26 21:17 | XMS_ITS | Encounter Summary ---
Author Organization [facility] Address [address] [place] [address]. [place], [place] [address] [place] [address] Care Team Providers Care Premium Auditor Name Role Phone Jose Mo MD Primary Care Provider [phone] Encounter Details Date Type Department Care Team (Latest Contact Info) Description 07/21/2021 Travel Social History Tobacco Use Types Packs/Day Years Used Date Smoking Tobacco: Former Cigarettes Q uit: 06/11/2018 Smokeless Tobacco: Never Alcohol Use Standard Drinks/Week Comments Yes 0 (1 standard drink = 0.6 oz pur e alcohol) socially Sex and Gender Information Value Date Recorded Sex Assigned at Male 05/10/2019 1:27 AM STATUARY PAINTER Legal Sex Male 7:38 PM CDT Gender Identity Male 05/10/2019 1:27 AM STATUARY PAINTER Sexual Orientation Not on file COVID-19 Exposure [...] Assessment Author Status No 05/15/2019 12:02 PM STATUARY PAINTER 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 Answer Date of Assessment Author Status No 05/15/2019 12:02 PM STATUARY PAINTER Acti ve * Do you have serious [...] Author Return home General No Zayra Kidd, CONTRACT PARALEGAL Note: Plan to return home with significant other. No DME or home health needed at this time. documented as of this encounter Visit Diagnoses Not on filedocumented in this encounter Care Teams Premium Auditor Relationship Specialty Start Date End Date Jose Mo MD [address] [address] PCP - General INTERNAL MEDICINE 05/09/19 documented as of this encounter
--- OUTSIDE RECORDS SUMMARY | 2024-03-26 21:17 | XMS_ITS | Encounter Summary ---
Author Organization [facility] Address [address] [place] [address]. [place], [place] [address] [place] [address] Care Team Providers Care Server Service Assistant Name Role Phone Jose Mo MD Primary Care Provider [phone] Encounter Details Date Type Department Care Team (Latest Contact Info) Description 03/13/2021 Travel Social History Tobacco Use Types Packs/Day Years Used Date Smoking Tobacco: Former Cigarettes Q uit: 06/11/2018 Smokeless Tobacco: Never Alcohol Use Standard Drinks/Week Comments Yes 0 (1 standard drink = 0.6 oz pur e alcohol) socially Sex and Gender Information Value Date Recorded Sex Assigned at Male 05/10/2019 1:27 AM SLIP COVER MAKER Legal Sex Male 7:38 PM CDT Gender Identity Male 05/10/2019 1:27 AM SLIP COVER MAKER Sexual Orientation Not on file COVID-19 Exposure Response Date Recorded In the last month, have you been in contact with someone who was confirmed or suspected to have Coronavirus / COVID-19? No / Unsure 03/13/2021 2:29 PM SLIP COVER MAKER documented as of this encounter Functional Status * RETIRED Are you deaf or do you have serious difficulty hearing Answer Date of Assessment Author Status No 05/15/2019 12:02 PM SLIP COVER MAKER 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 Answer Date of Assessment Author Status No 05/15/2019 12:02 PM SLIP COVER MAKER Acti ve * Do you have serious difficulty walking or climbing stairs? Answer Date of Assessment Author Status No 05/15/2019 12:02 PM SLIP COVER MAKER Cassie Dawn RN Active * Do you [...] Author Return home General No Zayra Kidd, DIRECTOR OF PROMOTIONS Note: Plan to return home with significant other. No DME or home health needed at this time. documented as of this encounter Visit Diagnoses Not on filedocumented in this encounter Additional Health Concerns Infection Onset Date Last Indicated Resolved Time COVID-19 Rule Out 03/13/2021 03/13/2021 03/13/2021 2:37 PM SLIP COVER MAKER COVID-19 Confirmed 03/13/2021 03/13/2021 12:32 AM SLIP COVER MAKER documented as of this encounter Care Teams Server Service Assistant Relationship Specialty Start Date End Date Jose Mo MD [address] [address] PCP - General INTERNAL MEDICINE 05/09/19 documented as of this encounter
--- OUTSIDE RECORDS SUMMARY | 2024-03-26 21:17 | XMS_ITS | Encounter Summary ---
Author Organization [facility] Address [address] [place] [address]. [place], [place] [address] [place] [address] Care Team Providers Care Artificial Flowers Dyer Name Role Phone Jose Mo MD Primary Care Provider [phone] Reason for Referral * Imaging (Emergency) - Closed Specialty Diagnoses / Procedures Referred By Barbara goldman Referred To Contact RADIOLOGY Procedures CT ABD+PEL W CON Chance Beard MD 1 [place] [address] Phone: tel: fax: Referral ID Status Reason Start Date Expiration Date Visits Re quested Visits Authorized [id number] Closed 12/29/2020 01/28/2022 1 1 * Imaging (Emergency) - Closed Specialty Diagnoses / Procedures Referred By Barbara goldman Referred To Contact RADIOLOGY Procedures US TESTICULAR Chance Beard MD 1 [place] [address] Phone: tel: fax: Referral ID Status Reason Start Date Expiration Date Visits Re quested Visits Authorized [id number] Closed 12/29/2020 01/28/2022 1 1 Reason for Visit * Reason Comments Urinary Symptoms Encounter Details Date Type Department Care Team ([facility] Contact Info) Description 12/29/2020 1:23 PM CDT - 12/29/2020 6:46 PM CDT Emergency [facility] Emergency Room [address] [place] [address] Chance Beard MD 1 [facility] [place] [address] Urinary Symptoms Discharge Disposition: Home or Self Care (Routine Discharge) Social History Tobacco Use Types Packs/Day Years Used Date Smoking Tobacco: Former Cigarettes Q uit: 06/11/2018 Smokeless Tobacco: Never Alcohol Use Standard Drinks/Week Comments Yes 0 (1 standard drink = 0.6 oz pur e alcohol) socially Sex and Gender Information Value Date Recorded Sex Assigned at Male 05/10/2019 1:27 AM BOLT LOADER Legal Sex Male 7:38 PM CDT Gender Identity Male 05/10/2019 1:27 AM BOLT LOADER Sexual Orientation Not on file COVID-19 Exposure [...] Assessment Author Status No 05/15/2019 12:02 PM BOLT LOADER Acti ve * RETIRED Are you blind [...] Care Everywhere. * Acute Cystitis Discharge Instructions (Sami) documented in this encounter Medications at Time [...] suppressive therapy. Patient sees infectious disease at [facility]. Patient has noted some discomfort in his [...] Range COLOR (U) YELLOW TRANSPARENCY CLEAR Specific [place] (U) 1.010 1.000 - 1.030 U PH [...] ONSET [id number] HOSPITALIZATION STATUS NO RESIDENT OF [facility] NO IMAGING STUDIES XR CHEST PORTABLE Final Result by User, [id number] (12/29 5207) IMAGING STUDIES: XR CHEST PORTABLE EXAM DATE/TIME: [...] ABD+PEL W CON Final Result by User, [id number] (12/29 5700) IMAGING STUDIES: CT ABD+PEL W CON DATE: [...] PM US TESTICULAR Final Result by User, [id number] (12/29 8364) Addendum 1 of 1 by User, [id number] (12/29 5325) Comparison studies: Testicular ultrasound 05/13/2019 Referred By: CHANCE BEARD Interpreted By: Raj Hendricks, 12/29/2020 4:41 PM Final IMAGING STUDIES: US TESTICULAR DATE: 12/29/2020 3:38 PM CLINICAL HISTORY: testicular pain . . COMPARISON STUDIES: No previous available. FINDINGS: Real-time ultrasound examination performed by the access assoc demonstrates: The right testicle measures 3.7 x [...] Fri12/29/2020, Until Fri01/08/2021, Eprescribe Class: Eprescribe [id number] [place] [address] (Ph #: [phone]) Disposition: Discharge Follow-Up: [facility] Emergency Room [address] [place] [address] If symptoms worsen Chance Beard MD 12/29/2020 [...] Author Return home General No Zayra Kidd, INTERTYPE OPERATOR Note: Plan to return home with [...] STUDIES: No previous available. ?? Procedure Note Rja Hendricks MD - 12/29/2020 IMAGING STUDIES: XR [...] FINDINGS: Real-time ultrasound examination performed by the access assoc demonstrates: The right testicle measures 3.7 x [...] SPEC DESCRIPTION BLOOD 12/29/2020 2:07 PM CDT [facility] SPECIAL REQUESTS NO SPECIAL REQUEST 12/29/2020 2:07 PM CDT [facility] CULTURE RESULT NO GROWTH 5 DAYS 01/03/2021 8:25 AM CDT [facility] BLOOD SPECIMEN OBTAINED FOR BLOOD CULTURE / Unknown 12/29/2020 3:08 PM CDT 12/29/2020 3:13 PM CDT Chance Beard MD MICROBIOLOGY - GENERAL ORDERABLE S Final Result [facility] [address] [facility] [place] [address], [place] [phone] [facility] [address] [place] [address], [place] [phone] * CORONAVIRUS (COVID-19) ANTIGEN [RAPID IN HOUSE TEST] (12/29/2020 3:00 PM CDT) CORONAVIRUS ANTIGEN IA NEGATIVE NEGATIVE 12/29/2020 3:33 PM CDT [facility] Comment: NEGATIVE RESULTS DO [...] SPECIMEN TYPE NASAL 12/29/2020 3:00 PM CDT [facility] FIRST TEST UNKNOWN 12/29/2020 3:00 PM CDT [facility] EMPLOYED IN HEALTHCARE NO 12/29/2020 3:00 PM CDT [facility] SYMPTOMATIC DEFINED BY CDC YES 12/29/2020 3:00 PM CDT [facility] DATE OF SYMPTOM ONSET [id number] 12/29/2020 3:00 PM CDT [facility] HOSPITALIZATION STATUS NO 12/29/2020 3:00 PM CDT [facility] RESIDENT OF [facility] NO 12/29/2020 3:00 PM CDT [facility] Specimen from nose (specimen) NASAL STRUCTURE / Unknown 12/29/2020 3:00 PM CDT us Chance Beard MD MICROBIOLOGY - GENERAL ORDERABLE S Final Result [facility] [address] [place] [address], * (ABNORMAL) PROCALCITONIN (PCT) (12/29/2020 2:57 PM CDT) [facility] Procalcitonin 2.27(H) 0.00 - 0.25 NG/ML 12/29/2020 3:41 PM CDT [facility] Comment: PROCALCITONIN INTERPRETATION GUIDELINES LOWER [...] us Chance Beard MD LABORATORY Final Result [facility] [address] [place] [address], [place] [phone] * LACTIC ACID (12/29/2020 2:57 PM CDT) LACTIC ACID VENOUS 1.2 0.4 - 2.0 MMOL/L 12/29/2020 3:27 PM CDT [facility] 12/29/2020 2:57 PM CDT us Chance Beard MD LABORATORY Final Result Performing Organization Address [facility]/ZIP Co de Phone Number [facility] [address] [place] [address], [place] [phone] * CULTURE, BACTERIA, BLOOD (12/29/2020 2:57 PM CDT) SPEC DESCRIPTION BLOOD 12/29/2020 2:07 PM CDT [facility] SPECIAL REQUESTS NO SPECIAL REQUEST 12/29/2020 2:07 PM CDT [facility] CULTURE RESULT NO GROWTH 5 DAYS 01/03/2021 8:25 AM CDT [facility] BLOOD SPECIMEN OBTAINED FOR BLOOD CULTURE / Unknown 12/29/2020 2:57 PM CDT 12/29/2020 3:05 PM CDT us Chance Beard MD MICROBIOLOGY - GENERAL ORDERABLE S Final Result [facility] [address] [place] [address], [place] [phone] [facility] [address] [place] [address], [place] [phone] * (ABNORMAL) COMPREHENSIVE METABOLIC PANEL (12/29/2020 2:57 PM CDT) [facility] GLUCOSE 113(H) 70 - 99 MG/DL 12/29/2020 3:36 PM CDT [facility] BUN 10 7 - 18 MG/DL 12/29/2020 3:36 PM CDT [facility] CREATININE S/P/B 1.07 0.7 - 1.3 MG/DL 12/29/2020 3:36 PM CDT [facility] SODIUM S/P/B 139 136 - 145 MMOL/L 12/29/2020 3:36 PM CDT [facility] POTASSIUM S/P/B 3.9 3.5 - 5.1 MMOL/L 12/29/2020 3:36 PM CDT [facility] CHLORIDE S/P/B 100 100 - 108 MMOL/L 12/29/2020 3:36 PM CDT [facility] CO2 30.6 21 - 32 MMOL/L 12/29/2020 3:36 PM T [facility] CALCIUM S/P/B 8.3(L) 8.5 - 10.1 MG/DL 12/29/2020 3:36 PM T [facility] BILIRUBIN TOTAL S/P/B 0.4 0.2 - 1.2 MG/DL 12/29/2020 3:36 PM T [facility] TOTAL PROTEIN S/P/B 7.0 6.4 - 8.2 G/DL 12/29/2020 3:36 PM T [facility] ALBUMIN S/P/B 3.5 3.4 - 5.0 G/DL 12/29/2020 3:36 PM CDT [facility] AST 23 15 - 37 U/L 12/29/2020 3:36 PM CDT [facility] ALT 29 16 - 60 U/L 12/29/2020 3:36 PM CDT [facility] ALKALINE PHOSPHATASE S/P/B 121 50 - 136 U/L 12/29/2020 3:36 PM CDT [facility] ANION GAP 8.4 5 - 15 MMOL/L 12/29/2020 3:36 PM CDT [facility] BUN CREATININE RATIO 9.3 6 - 26 12/29/2020 3:36 PM CDT [facility] A/G RATIO 1.0 1.0 - 2.0 RATIO 12/29/2020 3:36 PM CDT [facility] EGFR NON-AFR. AMER. 81(L) >90 ML/MIN/1.7 3 M2 12/29/2020 3:36 PM CDT [facility] EGFR AFR. AMER. >90 >90 ML/MIN/1.7 3 M2 12/29/2020 3:36 PM CDT [facility] Comment: NOTE: eGFR is not calculated for patients <18 years of age. This is an estimated GFR (CKD EPI) and should not be used for calculating drug doses. 12/29/2020 2:57 PM CDT Chance Beard MD LABORATORY Final Result [facility] [address] [place] [address], * (ABNORMAL) CBC W/DIFF AUTOMATED (12/29/2020 2:57 PM CDT) WBC 7.3 4.4 - 11.0 x10'3/uL 12/29/2020 3:15 PM CDT [facility] RBC 4.02(L) 4.50 - 5.90 x10'6/uL 12/29/2020 3:15 PM CDT [facility] HGB 11.8(L) 14.0 - 17.5 G/DL 12/29/2020 3:15 PM CDT [facility] HCT 36.3(L) 41.5 - 50.4 % 12/29/2020 3:15 PM CDT [facility] MCV 90.3 80.0 - 96.0 FL 12/29/2020 3:15 PM CDT [facility] MCH 29.4 26.5 - 31.4 PG 12/29/2020 3:15 PM CDT [facility] MCHC 32.5 31.9 - 34.8 G/DL 12/29/2020 3:15 PM CDT [facility] RDW 12.5 12.3 - 14.3 % 12/29/2020 3:15 PM CDT [facility] PLT 160 151 - 353 x10'3/uL 12/29/2020 3:15 PM CDT [facility] MPV 9.1(L) 9.7 - 11.9 FL 12/29/2020 3:15 PM CDT [facility] SEG NEUTROPHILS 85(H) 42 - 72 % 3:30 PM CDT [facility] BANDS 1 % 12/29/2020 3:30 PM CDT [facility] LYMPHOCYTES 11(L) 15.8 - 45.0 % 12/29/2020 3:30 PM CDT [facility] MONOCYTES 1(L) 5.7 - 12.5 % 12/29/2020 3:30 PM CDT [facility] IMMATURE GRANS % 2.0 % 12/30/19 3:30 PM CDT [facility] ABS. NEUTROPHILS 6.28(H) 1.40 - 6.00 x10'3/uL 12/29/2020 3:30 PM CDT [facility] ABS. LYMPHOCYTES 0.80 0.80 - 4.70 x10'3/uL 12/29/2020 3:30 PM CDT [facility] PLT MORPH. NORMAL 12/29/2020 3:30 PM CDT [facility] RBC MORPHOLOGY NORMAL 12/29/2020 3:30 PM CDT [facility] WBC MORPHOLOGY NORMAL 12/29/2020 3:30 PM CDT [facility] 12/29/2020 2:57 PM CDT Chance Beard MD LABORATORY Final Result Performing Organization Address City/State/[facility] Co de Phone Number [facility] [address] [place] [phone], * (ABNORMAL) CULTURE URINE (12/29/2020 1:32 PM CDT) SPEC DESCRIPTION URINE CLEAN CATCH 12/29/2020 2:22 PM CDT [facility] SPECIAL REQUESTS NO SPECIAL REQUEST 12/29/2020 2:22 PM CDT [facility] CULTURE RESULT 10,000-49,000 COL/ML ENTEROBACTER AEROGENES (A) 12/31/2020 10:03 AM CDT [facility] URINE SPECIMEN OBTAINED BY CLEAN [...] MICROBIOLOGY - GENERAL ORDERABLE S Final Result [facility] [address] [place] [address], [place] [phone] [facility] [address] [place] [address], [place] [phone] * (ABNORMAL) URINALYSIS, AUTO, COMPLETE (12/29/2020 1:32 PM CDT) COLOR (U) YELLOW 12/29/2020 1:49 PM CDT [facility] TRANSPARENCY CLEAR 12/29/2020 1:49 PM CDT [facility] SPECIFIC GRAVITY (U) 1.010 1.000 - 1.030 12/29/2020 1:49 PM CDT [facility] U PH 8.0 5.0 - 9.0 12/29/2020 1:49 PM CDT [facility] LEUKOCYTES (U) TRACE(A) NEGATIVE 12/29/2020 1:49 PM CDT [facility] NITRITES NEGATIVE NEGATIVE 12/29/2020 1:49 PM CDT [facility] PROTEIN (U) NEGATIVE NEGATIVE 12/29/2020 1:49 PM CDT [facility] URINE GLUCOSE NEGATIVE NEGATIVE 12/29/2020 1:49 PM CDT [facility] KETONES MG/DL (U) NEGATIVE NEGATIVE 12/29/2020 1:49 PM CDT [facility] BILIRUBIN (U) NEGATIVE NEGATIVE 12/29/2020 1:49 PM CDT [facility] BLOOD (U) NEGATIVE NEGATIVE 12/29/2020 1:49 PM CDT [facility] WBC/HPF NONE SEEN 0 - 5 /HPF 12/29/2020 1:49 PM CDT [facility] RBC/HPF NONE SEEN 0 - 5 /HPF 12/29/2020 1:49 PM CDT [facility] EPI/HPF NONE SEEN /HPF 12/29/2020 1:49 PM CDT [facility] CULTURE & SENSITIVITY INDICATED? CULTURE IS NOT INDICATED 12/29/2020 1:49 PM CDT [facility] URINE SPECIMEN OBTAINED BY CLEAN CATCH PROCEDURE / Unknown 12/29/2020 1:32 PM CDT us Chance Beard MD URINE ORDERABLES Final Result [facility] [address] [place] [phone], documented in this encounter Visit Diagnoses Diagnosis [...] documented as of this encounter Care Teams Artificial Flowers Dyer Relationship Specialty Start Date End Date Jose Mo MD [address] [address] PCP - General INTERNAL MEDICINE 05/09/19 documented as of this encounter
--- OUTSIDE RECORDS SUMMARY | 2024-03-26 21:17 | XMS_ITS | Encounter Summary ---
Author Organization [facility] Address [address] [place] [address]. [place], [place] [address] [place] [address] Care Team Providers Care Radio Station Manager Name Role Phone Jose Mo MD Primary Care Provider [phone] Encounter Details Date Type Department Care Team (Latest Contact Info) Description 05/22/2019 2:14 PM MANAGER OF MANUFACTURING - 05/22/2019 11:59 PM MANAGER OF MANUFACTURING Hospital Encounter [facility] [address] [place] [address] Cheryl Taylor, [place] [address] Discharge Disposition: Home or Self Care (Routine Discharge) Social History Tobacco Use Types Packs/Day Years Used Date Smoking Tobacco: Former Cigarettes Q uit: 06/11/2018 Smokeless Tobacco: Never Alcohol Use Standard Drinks/Week Comments Yes 0 (1 standard drink = 0.6 oz pur e alcohol) socially Sex and Gender Information Value Date Recorded Sex Assigned at Male 05/10/2019 1:27 AM MANAGER OF MANUFACTURING Legal Sex Male 7:38 PM CDT Gender Identity Male 05/10/2019 1:27 AM MANAGER OF MANUFACTURING Sexual Orientation Not on file documented as of this encounter Functional Status * RETIRED Are you deaf or do you have serious difficulty hearing Answer Date of Assessment Author Status No 05/15/2019 12:02 PM MANAGER OF MANUFACTURING Acti ve * RETIRED Are you blind [...] Author Return home General No Zayra Kidd, REGIONAL FACILITIES MANAGER Note: Plan to return home with significant other. No DME or home health needed at this time. documented as of this encounter Procedures Procedure Name Priority Date/Time Associated Diagnosis Comments BASIC METABOLIC PANEL Routine 05/22/2019 2:19 PM MANAGER OF MANUFACTURING Epididymitis Sepsis without acute organ dysfunction, due to unspecified organism ([facility]) CBC W/DIFF AUTOMATED Routine 05/22/2019 2:19 PM MANAGER OF MANUFACTURING Epididymitis Sepsis without acute organ dysfunction, due to unspecified organism ([facility]) documented in this encounter Results * (ABNORMAL) BASIC METABOLIC PANEL (05/22/2019 2:19 PM MANAGER OF MANUFACTURING) GLUCOSE 104(H) 70 - 99 MG/DL 05/22/2019 2:40 PM [facility] BUN 14 7 - 18 MG/DL 05/22/2019 2:40 PM [facility] CREATININE S/P/B 0.83 0.7 - 1.3 MG/DL 05/22/2019 2:40 PM [facility] SODIUM S/P/B 138 136 - 145 MMOL/L 05/22/2019 2:40 PM [facility] POTASSIUM S/P/B 4.7 3.5 - 5.1 MMOL/L 05/22/2019 2:40 PM [facility] CHLORIDE S/P/B 100 100 - 108 MMOL/L 05/22/2019 2:40 PM [facility] CO2 23.5 21 - 32 MMOL/L 05/22/2019 2:40 PM [facility] CALCIUM S/P/B 8.8 8.5 - 10.1 MG/DL 05/22/2019 2:40 PM [facility] ANION GAP 14.5 5 - 15 MMOL/L 05/22/2019 2:40 PM [facility] BUN CREATININE RATIO 16.9 6 - 26 05/22/2019 2:40 PM MANAGER OF MANUFACTURING [facility] EGFR NON-AFR. AMER. >90 >90 ML/MIN/1.7 3 M2 05/22/2019 2:40 PM [facility] EGFR AFR. AMER. >90 >90 ML/MIN/1.7 3 M2 05/22/2019 2:40 PM [facility] Comment: NOTE: eGFR is not calculated for patients <18 years of age. This is an estimated GFR (CKD EPI) and should not be used for calculating drug doses. 05/22/2019 2:19 PM MANAGER OF MANUFACTURING us Cheryl Taylor ROOF SERVICE TECHNICIAN LABORATORY Final Result [facility] [address] [place] [address], [place] [phone] * (ABNORMAL) CBC W/DIFF AUTOMATED (05/22/2019 2:19 PM MANAGER OF MANUFACTURING) WBC 8.1 4.4 - 11.0 x10'3/uL 05/22/2019 2:27 PM [facility] RBC 4.32(L) 4.50 - 5.90 x10'6/uL 05/22/2019 2:27 PM [facility] HGB 13.0(L) 14.0 - 17.5 G/DL 05/22/2019 2:27 PM [facility] HCT 40.0(L) 41.5 - 50.4 % 05/22/2019 2:27 PM [facility] MCV 92.6 80.0 - 96.0 FL 05/22/2019 2:27 PM [facility] MCH 30.1 26.5 - 31.4 PG 05/22/2019 2:27 PM [facility] MCHC 32.5 31.9 - 34.8 G/DL 05/22/2019 2:27 PM [facility] RDW 12.9 12.3 - 14.3 % 05/22/2019 2:27 PM [facility] PLT 314 151 - 353 x10'3/uL 05/22/2019 2:27 PM [facility] MPV 10.1 9.7 - 11.9 FL 05/22/2019 2:27 PM [facility] RBC MORPHOLOGY NORMAL 05/22/2019 2:27 PM [facility] PLT MORPH. NORMAL 05/22/2019 2:27 PM [facility] WBC MORPHOLOGY NORMAL 05/22/2019 2:27 PM [facility] LYMPHOCYTES % 29.3 15.8 - 45.0 % 05/22/2019 2:27 PM [facility] NEUTROPHILS % 60.3 42.1 - 71.9 % 05/22/2019 2:27 PM [facility] MONOCYTES % 7.4 5.7 - 12.5 % 05/22/2019 2:27 PM [facility] EOSINOPHILS 1.2 0.0 - 5.6 % 05/22/2019 2:27 PM [facility] BASOPHILS 0.6 0.0 - 1.3 % 05/22/2019 2:27 PM [facility] ABS. NEUTROPHILS TOTAL 4.85 1.40 - 6.00 x10'3/uL 05/22/2019 2:27 PM [facility] IMMATURE GRANS % 1.2(H) 0.0 - 0.5 % 05/22/2019 2:27 PM [facility] ABS. LYMPHOCYTES 2.36 0.80 - 4.70 x10'3/uL 05/22/2019 2:27 PM [facility] 05/22/2019 2:19 PM MANAGER OF MANUFACTURING Cheryl Marinelli Chloesusi ROOF SERVICE TECHNICIAN LABORATORY Final Result [facility] [address] [place] [address], documented in this encounter Visit Diagnoses Diagnosis Epididymitis Orchitis and epididymitis, unspecified Sepsis without acute organ dysfunction, due to unspecified organism ([facility]) documented in this encounter Care Teams Radio Station Manager Relationship Specialty Start Date End Date Jose Mo MD [facility] [address] [address] PCP - General INTERNAL MEDICINE 05/09/19 documented as of this encounter
--- OUTSIDE RECORDS SUMMARY | 2024-03-26 21:17 | XMS_ITS | Encounter Summary ---
Author Organization [facility] Address [address] [place] [address]. [place], [place] [address] [place] [address] Care Team Providers Care Commutator Repairer Name Role Phone Jose Mo MD Primary Care Provider [phone] Encounter Details Date Type Department Care Team (Latest Contact Info) Description 01/23/2021 Travel Social History Tobacco Use Types Packs/Day Years Used Date Smoking Tobacco: Former Cigarettes Q uit: 06/11/2018 Smokeless Tobacco: Never Alcohol Use Standard Drinks/Week Comments Yes 0 (1 standard drink = 0.6 oz pur e alcohol) socially Sex and Gender Information Value Date Recorded Sex Assigned at Male 05/10/2019 1:27 AM LONG LINE TEAMSTER Legal Sex Male 7:38 PM CDT Gender Identity Male 05/10/2019 1:27 AM LONG LINE TEAMSTER Sexual Orientation Not on file COVID-19 Exposure [...] Assessment Author Status No 05/15/2019 12:02 PM LONG LINE TEAMSTER 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 Answer Date of Assessment Author Status No 05/15/2019 12:02 PM LONG LINE TEAMSTER Acti ve * Do you have serious difficulty walking or climbing stairs? Answer Date of Assessment Author Status No 05/15/2019 12:02 PM LONG LINE TEAMSTER Cassie Dawn RN Active * Do you [...] Author Return home General No Zayra Kidd, COFFEE GROWER Note: Plan to return home with significant other. No DME or home health needed at this time. documented as of this encounter Visit Diagnoses Not on filedocumented in this encounter Care Teams Commutator Repairer Relationship Specialty Start Date End Date Jose Mo MD [address] [address] PCP - General INTERNAL MEDICINE 05/09/19 documented as of this encounter
--- OUTSIDE RECORDS SUMMARY | 2024-03-26 21:17 | XMS_ITS | Encounter Summary ---
Author Organization [facility] Address [address] [place] [address]. [place], [place] [address] [place] [address] Care Team Providers Care Store Custodian Name Role Phone Jose Mo MD Primary Care Provider [phone] Encounter Details Date Type Department Care Team [...] Assigned at Male 05/10/2019 1:27 AM MANAGER PRODUCTION Legal Sex Male 7:38 PM CDT Gender Identity Male 05/10/2019 1:27 AM MANAGER PRODUCTION Sexual Orientation Not on file documented as of this encounter Functional Status * RETIRED Are you deaf or do you have serious difficulty hearing Answer Date of Assessment Author Status No 05/15/2019 12:02 PM MANAGER PRODUCTION 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 Answer Date of Assessment Author Status No 05/15/2019 12:02 PM MANAGER PRODUCTION Acti ve * Do you have serious [...] Author Return home General No Zayra Kidd, STYLIST ASSISTANT Note: Plan to return home with significant other. No DME or home health needed at this time. documented as of this encounter Visit Diagnoses Not on filedocumented in this encounter Care Teams Store Custodian Relationship Specialty Start Date End Date Jose Mo MD [address] [address] PCP - General INTERNAL MEDICINE 05/09/19 documented as of this encounter
--- OUTSIDE RECORDS SUMMARY | 2024-03-26 21:17 | XMS_ITS | Encounter Summary ---
Author Organization [facility] Address [address] [place] [address]. [place], [place] [id number] [place] [address] Care Team Providers Care Washer Blanket Name Role Phone Jose Mo MD Primary Care Provider [phone] Reason for Visit * Reason Onset Date Comments Hospital Follow Up 05/24/2019 Encounter Details Date Type Department Care Team (Late st Contact Info) Description 05/24/2019 Telephone [facility] Care Management [address] [place] [address] Zayra Kidd, [facility] Follow Up Social History Tobacco Use Types Packs/Day Years Used Date Smoking Tobacco: Former Cigarettes Q uit: 06/11/2018 Smokeless Tobacco: Never Alcohol Use Standard Drinks/Week Comments Yes 0 (1 standard drink = 0.6 oz pur e alcohol) socially Sex and Gender Information Value Date Recorded Sex Assigned at Male 05/10/2019 1:27 AM CANCER GENETICS ASSISTANT Legal Sex Male 7:38 PM CDT Gender Identity Male 05/10/2019 1:27 AM CANCER GENETICS ASSISTANT Sexual Orientation Not on file documented as of this encounter Functional Status * RETIRED Are you deaf or do you have serious difficulty hearing Answer Date of Assessment Author Status No 05/15/2019 12:02 PM CANCER GENETICS ASSISTANT 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 Answer Date of Assessment Author Status No 05/15/2019 12:02 PM CANCER GENETICS ASSISTANT Acti ve * Do you have serious [...] Author Return home General No Zayra Kidd, INSTRUMENT REPAIRER HELPER Note: Plan to return home with significant other. No DME or home health needed at this time. documented as of this encounter Visit Diagnoses Not on filedocumented in this encounter Care Teams Washer Blanket Relationship Specialty Start Date End Date Jose Mo MD [address] [address] PCP - General INTERNAL MEDICINE 05/09/19 documented as of this encounter
--- OUTSIDE RECORDS SUMMARY | 2024-03-26 21:17 | XMS_ITS | Encounter Summary ---
Author Organization [facility] Address [address] [place] [address]. [place], [place] [id number] [place] [address] Care Team Providers Care Scallop Cutter Machine Name Role Phone Jose Mo MD Primary Care Provider [phone] Encounter Details Date Type Department Care Team (Latest Contact Info) Description 12/29/2020 Travel Social History Tobacco Use Types Packs/Day Years Used Date Smoking Tobacco: Former Cigarettes Q uit: 06/11/2018 Smokeless Tobacco: Never Alcohol Use Standard Drinks/Week Comments Yes 0 (1 standard drink = 0.6 oz pur e alcohol) socially Sex and Gender Information Value Date Recorded Sex Assigned at Male 05/10/2019 1:27 AM PROCESS CONTROL MANAGER Legal Sex Male 7:38 PM CDT Gender Identity Male 05/10/2019 1:27 AM PROCESS CONTROL MANAGER Sexual Orientation Not on file COVID-19 [...] Assessment Author Status No 05/15/2019 12:02 PM PROCESS CONTROL MANAGER 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 Answer Date of Assessment Author Status No 05/15/2019 12:02 PM PROCESS CONTROL MANAGER Acti ve * Do you have serious difficulty walking or climbing stairs? Answer Date of Assessment Author Status No 05/15/2019 12:02 PM PROCESS CONTROL MANAGER Cassie Dawn RN Active * Do you [...] Author Return home General No Zayra Kidd, WALL AND FLOOR TILER Note: Plan to return home with significant other. No DME or home health needed at this time. documented as of this encounter Visit Diagnoses Not on filedocumented in this encounter Additional Health Concerns Infection Onset Date Last Indicated Resolved Time COVID-19 Rule Out 12/29/2020 12/29/2020 12/29/2020 3:34 PM CDT documented as of this encounter Care Teams Scallop Cutter Machine Relationship Specialty Start Date End Date Jose Mo MD [address] [address] PCP - General INTERNAL MEDICINE 05/09/19 documented as of this encounter
--- OUTSIDE RECORDS SUMMARY | 2024-03-26 21:17 | XMS_ITS | Encounter Summary ---
Author Organization [facility] Address [address] [place] [address]. [place], [place] [address] [place] [address] Care Team Providers Care Supervisor Telephone Answering Service Name Role Phone Jose Mo MD Primary Care Provider [phone] Reason for Visit * Reason Comments Fall Leg Pain Encounter Details Date Type Department Care Team (Late st Contact Info) Description 07/09/2022 6:47 PM CDT - 07/09/2022 9:46 PM CDT Emergency [facility] Emergency Room [id number] [place] [address] [id number] Renetta Beal MD [address] [place] [address] Fall; Leg Pain Discharge Disposition: Home or Self Care (Routine Discharge) Social History Tobacco Use Types Packs/Day Years Used Date Smoking Tobacco: Former Cigarettes Q uit: 06/11/2018 Smokeless Tobacco: Never Alcohol Use Standard Drinks/Week Comments Not Currently 0 (1 standard drink = 0.6 oz pur e alcohol) socially Sex and Gender Information Value Date Recorded Sex Assigned at Male 05/10/2019 1:27 AM PRESCRIPTION BENEFIT SPECIALIST Legal Sex Male 7:38 PM CDT Gender Identity Male 05/10/2019 1:27 AM PRESCRIPTION BENEFIT SPECIALIST Sexual Orientation Not on file COVID-19 [...] Assessment Author Status No 05/15/2019 12:02 PM PRESCRIPTION BENEFIT SPECIALIST 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 Answer Date of Assessment Author Status No 05/15/2019 12:02 PM PRESCRIPTION BENEFIT SPECIALIST Acti ve * Do you have [...] sent through Care Everywhere. * Ankle Sprain (Azeri) * Foot Sprain Discharge Instructions (Azeri) * Using Cold for Pain (Azeri) documented in this encounter Medications at Time [...] FOOT LT 3V Final Result by User, [id number] (07/09 2109) 07/09/2022, 2043 hours. HISTORY: Fell. [...] KNEE LT 3V Final Result by User, [id number] (07/09 1914) 07/09/2022, 1834 hours. HISTORY: Fell [...] ANKLE LT M3V Final Result by User, [email or web address] (07/09 1917) 07/09/2022, 1839 hours. HISTORY: Lateral [...] encounter Disposition: Discharge Renetta Beal MD 07/09/22 [id number] * Ledy Vines RN - 07/09/2022 6:49 [...] RN) documented in this encounter Care Teams Supervisor Telephone Answering Service Relationship Specialty Start Date End Date Jose Mo MD [facility] [address] [address] PCP - General INTERNAL MEDICINE 05/09/19 documented as of this encounter
--- OUTSIDE RECORDS SUMMARY | 2024-03-26 21:17 | XMS_ITS | Encounter Summary ---
Author Organization [facility] Address [address] [place] [address]. [place], [place] [id number] [place] [address] Care Team Providers Care Nurse Practitioner Physician Assistant Name Role Phone Jose Mo MD Primary Care Provider Reason for Visit * Reason Comments Urinary Symptoms Encounter Details Date Type Department Care Team (Late st Contact Info) Description 06/15/2022 7:37 PM NURSE PRACTITIONER PHYSICIAN ASSISTANT - 06/15/2022 9:09 PM NURSE PRACTITIONER PHYSICIAN ASSISTANT Emergency [facility] Emergency Room [address] [place] [address] Esteban Sterling MD [address] [place] [address] Urinary Symptoms Discharge Disposition: Home or Self [...] Sex Assigned at Male 05/10/2019 1:27 AM NURSE PRACTITIONER PHYSICIAN ASSISTANT Legal Sex Male 7:38 PM CDT Gender Identity Male 05/10/2019 1:27 AM NURSE PRACTITIONER PHYSICIAN ASSISTANT Sexual Orientation Not on file COVID-19 Exposure Response Date Recorded In the last 10 days, have yo u been in contact with someone who was confirmed or suspected to have Coronavirus/COVID-19? No / Unsure 06/15/2022 7:32 PM NURSE PRACTITIONER PHYSICIAN ASSISTANT documented as of this encounter Last Filed Vital Signs Vital Sign Reading Time Taken Comments Blood Pressure 126/73 06/15/2022 9:08 PM NURSE PRACTITIONER PHYSICIAN ASSISTANT Pulse 85 06/15/2022 9:08 PM NURSE PRACTITIONER PHYSICIAN ASSISTANT Temperature 36.3 ??C (97.4 ??F) 06/15/2022 9:08 PM CS T Respiratory Rate 18 06/15/2022 9:08 PM NURSE PRACTITIONER PHYSICIAN ASSISTANT Oxygen Saturation 98% 06/15/2022 9:08 PM NURSE PRACTITIONER PHYSICIAN ASSISTANT Inhaled Oxygen Concentration - - Weight 113.4 kg (250 lb) 06/15/2022 7:40 PM NURSE PRACTITIONER PHYSICIAN ASSISTANT Height 170.2 cm (5' 7 ) 06/15/2022 7:40 PM NURSE PRACTITIONER PHYSICIAN ASSISTANT Body Mass Index 39.16 06/15/2022 7:40 PM NURSE PRACTITIONER PHYSICIAN ASSISTANT documented in this encounter Functional Status * RETIRED Are you deaf or do you have serious difficulty hearing Answer Date of Assessment Author Status No 05/15/2019 12:02 PM NURSE PRACTITIONER PHYSICIAN ASSISTANT 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 Answer Date of Assessment Author Status No 05/15/2019 12:02 PM NURSE PRACTITIONER PHYSICIAN ASSISTANT Acti ve * Do you have [...] Esteban Sterling MD - 06/15/2022 8:00 PM NURSE PRACTITIONER PHYSICIAN ASSISTANT Take the antibiotic as directed until gone. Follow up with your primary care and urologist as discussed. Return to the ER if you have worsening symptoms. E PRACTITIONER PHYSICIAN ASSISTANT documented in this encounter Medications at Time [...] Denies fever, chills, nausea, vomiting, abdominal pain. E PRACTITIONER PHYSICIAN ASSISTANT documented in this encounter Plan of Treatment [...] URINE BACTERIA CULTURE Routine 06/15/2022 8:18 PM NURSE PRACTITIONER PHYSICIAN ASSISTANT URINALYSIS, AUTO, COMPLETE STAT 06/15/2022 8:18 PM NURSE PRACTITIONER PHYSICIAN ASSISTANT documented in this encounter Results * CULTURE URINE (06/15/2022 8:18 PM NURSE PRACTITIONER PHYSICIAN ASSISTANT) SPEC DESCRIPTION URINE VOIDED 06/15/2022 8:51 PM NURSE PRACTITIONER PHYSICIAN ASSISTANT [facility] SPECIAL REQUESTS NO SPECIAL REQUEST 06/15/2022 8:51 PM NURSE PRACTITIONER PHYSICIAN ASSISTANT [facility] CULTURE RESULT NO GROWTH 2 DAYS 06/18/2022 7:32 AM CDT [facility] URINE SPECIMEN FROM URETHRA / Unknown 06/15/2022 8:18 PM NURSE PRACTITIONER PHYSICIAN ASSISTANT 06/15/2022 8:50 PM NURSE PRACTITIONER PHYSICIAN ASSISTANT Esteabn Sterling MD MICROBIOLOGY - GENERAL ORD ERABLES Final Result [facility] [address] [place] [address], [place] [phone] [facility] [address] [place] [address], [place] [phone] * (ABNORMAL) URINALYSIS, AUTO, COMPLETE (06/15/2022 8:18 PM NURSE PRACTITIONER PHYSICIAN ASSISTANT) COLOR (U) YELLOW 06/15/2022 8:50 PM NURSE PRACTITIONER PHYSICIAN ASSISTANT [facility] TRANSPARENCY CLEAR 06/15/2022 8:50 PM NURSE PRACTITIONER PHYSICIAN ASSISTANT [facility] SPECIFIC GRAVITY (U) 1.020 1.000 - 1.030 06/15/2022 8:50 PM NURSE PRACTITIONER PHYSICIAN ASSISTANT [facility] U PH 6.0 5.0 - 9.0 06/15/2022 8:50 PM NURSE PRACTITIONER PHYSICIAN ASSISTANT [facility] LEUKOCYTES (U) 1+(A) NEGATIVE 06/15/2022 8:50 PM NURSE PRACTITIONER PHYSICIAN ASSISTANT [facility] NITRITES NEGATIVE NEGATIVE 06/15/2022 8:50 PM NURSE PRACTITIONER PHYSICIAN ASSISTANT [facility] PROTEIN (U) NEGATIVE NEGATIVE 06/15/2022 8:50 PM NURSE PRACTITIONER PHYSICIAN ASSISTANT [facility] URINE GLUCOSE NEGATIVE NEGATIVE 06/15/2022 8:50 PM [facility] KETONES MG/DL (U) NEGATIVE NEGATIVE 06/15/2022 8:50 PM [facility] BILIRUBIN (U) NEGATIVE NEGATIVE 06/15/2022 8:50 PM NURSE PRACTITIONER PHYSICIAN ASSISTANT [facility] BLOOD (U) NEGATIVE NEGATIVE 06/15/2022 8:50 PM [facility] WBC/HPF 25-50 0 - 5 /HPF 06/15/2022 8:50 PM [facility] RBC/HPF 0-5 0 - 5 /HPF 06/15/2022 8:50 PM [facility] EPI/HPF RARE /HPF 06/15/2022 8:50 PM [facility] CULTURE & SENSITIVITY INDICATED? SPECIMEN SETUP FOR CULTURE 06/15/2022 8:50 PM [facility] URINE SPECIMEN OBTAINED BY CLEAN CATCH PROCEDURE / Unknown 06/15/2022 8:18 PM NURSE PRACTITIONER PHYSICIAN ASSISTANT us Esteban Sterling MD URINE ORDERABLES Final Res ult [facility] [address] [place] [address], documented in this encounter Visit Diagnoses Diagnosis UTI (urinary tract infection)- Primary Urinary tract infection, site not specified documented in this encounter Administered Medications Inactive Administered Medications - up to 3 most recent administrations Medication Order MAR Action Action Date Dose Rate Site levoFLOXacin (LEVAQUIN) tablet 750 mg 750 mg, Oral, Once, 1 dose, On 06/15/22 at 1999 Given 06/15/2022 8:03 PM NURSE PRACTITIONER PHYSICIAN ASSISTANT 750 mg documented in this encounter Active and Recently Administered Medications Times are shown in NURSE PRACTITIONER PHYSICIAN ASSISTANT. Scheduled Medication Order 06/13/2022 06/14/2022 06/15/2022 levoFLOXacin (LEVAQUIN) tablet 750 mg (COMPLETED) 750 mg, Oral, Once, 1 dose, On 06/15/22 at 1999 2002 (Given - Provid er: Cathy Harvey RN) documented in this encounter Care Teams Nurse Practitioner Physician Assistant Relationship Specialty Start Date End Date Jose Mo MD [address] [address] PCP - General INTERNAL MEDICINE 05/09/19 documented as of this encounter
--- OUTSIDE RECORDS SUMMARY | 2024-03-26 21:17 | XMS_ITS | Encounter Summary ---
Author Organization [facility] Address [address] [place] [address]. [place], [place] [address] [place] [address] Care Team Providers Care Health Care Law Specialist Name Role Phone Jose Mo MD Primary Care Provider [phone] Reason for Visit * Reason Onset Date Comments Hospital Follow Up 05/31/2019 Encounter Details Date Type Department Care Team (Late st Contact Info) Description 05/31/2019 Telephone [facility] Care Management [address] [place] [address] Zayra Kidd, [facility] Follow Up Social History Tobacco Use Types Packs/Day Years Used Date Smoking Tobacco: Former Cigarettes Q uit: 06/11/2018 Smokeless Tobacco: Never Alcohol Use Standard Drinks/Week Comments Yes 0 (1 standard drink = 0.6 oz pur e alcohol) socially Sex and Gender Information Value Date Recorded Sex Assigned at Male 05/10/2019 1:27 AM BATTERY INSPECTOR Legal Sex Male 7:38 PM CDT Gender Identity Male 05/10/2019 1:27 AM BATTERY INSPECTOR Sexual Orientation Not on file documented as of this encounter Functional Status * RETIRED Are you deaf or do you have serious difficulty hearing Answer Date of Assessment Author Status No 05/15/2019 12:02 PM BATTERY INSPECTOR 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 Answer Date of Assessment Author Status No 05/15/2019 12:02 PM BATTERY INSPECTOR Acti ve * Do you have serious [...] Author Return home General No Zayra Kidd, VOCATIONAL TRAINER Note: Plan to return home with significant other. No DME or home health needed at this time. documented as of this encounter Visit Diagnoses Not on filedocumented in this encounter Care Teams Health Care Law Specialist Relationship Specialty Start Date End Date Jose Mo MD [address] [address] PCP - General INTERNAL MEDICINE 05/09/19 documented as of this encounter
--- OUTSIDE RECORDS SUMMARY | 2024-03-26 21:18 | XMS_ITS | Encounter Summary ---
Author Organization [facility] Address [address] [place] [address]. [address] [place] [address] Care Team Providers Care Copy Clerk Name Role Phone Unavailable Primary Care Provider Unavailabl e Encounter Details Date Type Department Care Team (Late st Contact Info) Description 11/19/2017 Abstract [facility] Emergency Room [address] [place] [address] [facility] [address] [facility] [address] [address] Social History Tobacco Use Types Packs/Day Years Used Date Smoking Tobacco: Never Assessed Sex and Gender Information Value Date Recorded Sex Assigned at Male 05/10/2019 1:27 AM PROJECT MANAGEMENT ENGINEER Legal Sex Male 7:38 PM CDT Gender Identity Male 05/10/2019 1:27 AM PROJECT MANAGEMENT ENGINEER Sexual Orientation Not on file documented as [...] URINE CLEAN CATCH 11/19/2017 10:00 PM CDT [facility] SPECIAL REQUESTS NO SPECIAL REQUEST 11/19/2017 10:00 PM CDT [facility] CULTURE RESULT 50,000-100,000 COL/MLKLEBSIELLA PNEUMONIAE SSP. OZAENAEPROBABLE CARBAPENEMASE MIRROR POLISHER 11/23/2017 8:[address] [facility] URINE SPECIMEN OBTAINED BY CLEAN CATCH PROCEDURE / Unknown 11/19/2017 9:58 PM CDT 11/19/2017 9:59 PM CDT Narrative Organism Antibiotic Method Susceptibility Unknown AMPICILLIN SHARON (VITEK) >=32: Resistant Unknown AMPICILLIN/SULBACTAM SHARON (VITEK) >=32: Resistant Unknown CEFTRIAXONE SHARON (VITEK) <=1: Resistant Unknown CEFTAZIDIME SHARON (VITEK) 2: Resistant Unknown CEFAZOLIN SHARON (VITEK) 32: Resistant Unknown ESBL SAHRON (VITEK) NEG: Sensitive Unknown NITROFURANTOIN SHARON (VITEK) >=512: Resistant Unknown GENTAMICIN SHARON (VITEK) <=1: Sensitive Unknown LEVOFLOXACIN SHARON (VITEK) 2: Sensitive Unknown MEROPENEM SHARON (VITEK) 0.5: Resistant Unknown PIPRACIL/TAZO SHARON (VITEK) 8: Resistant Unknown TRIMETH-SULFAMETH. SHARON (VITEK) <=20: Sensitive Unknown CEFEPIME SHARON (VITEK) Resistant Comment: Organism code(s) sent by the ancillary, '50,000-100,000 COL/MLKLEBSIELLA PNEUMONIAE SSP. , OZAENAEPROBABLE CARBAPENEMASE MIRROR POLISHER', not recognized. Organism 'UNKNOWN' was substituted in its place. us Generic Conversion Md [facility]TT MICROBIOLOG[facility] - GENERAL ORDERABLES Final Result [facility] [address] [place] [address], [place] [phone] [facility] [address] [place] [address], [place] [phone] * (ABNORMAL) URINALYSIS WI REFLEX TO CULTURE (11/19/2017 9:38 PM CDT) COLOR (U) YELLOW 11/19/2017 9:58 PM CDT [facility] TRANSPARENCY CLEAR 11/19/2017 9:58 PM CDT [facility] SPECIFIC GRAVITY (U) 1.010 1.000 - 1.030 11/19/2017 9:58 PM CDT [facility] U PH 6.5 5.0 - 9.0 11/19/2017 9:58 PM CDT [facility] LEUKOCYTES (U) 1+(A) NEGATIVE 11/19/2017 9:58 PM CDT [facility] NITRITES POSITIVE(A) NEGATIVE 11/19/2017 9:58 PM CDT [facility] PROTEIN (U) NEGATIVE NEGATIVE 11/19/2017 9:58 PM CDT [facility] URINE GLUCOSE NEGATIVE NEGATIVE 11/19/2017 9:58 PM T [facility] KETONES MG/DL (U) NEGATIVE NEGATIVE 11/19/2017 9:58 PM CDT [facility] BILIRUBIN (U) NEGATIVE NEGATIVE 11/19/2017 9:58 PM CDT [facility] BLOOD (U) NEGATIVE NEGATIVE 11/19/2017 9:58 PM CDT [facility] WBC/HPF 0-5 0 - 5 /HPF 11/19/2017 9:58 PM CDT [facility] RBC/HPF NONE SEEN 0 - 5 /HPF 11/19/2017 9:58 PM CDT [facility] EPI/HPF NONE SEEN /HPF 11/19/2017 9:58 PM CDT [facility] CULTURE & SENSITIVITY INDICATED? SPECIMEN SETUP FOR CULTURE 11/19/2017 9:58 PM CDT [facility] BACTERIA (U) MODERATE /HPF 11/19/2017 9:58 PM CDT [facility] 11/19/2017 9:38 PM CDT 11/19/2017 9:39 PM CDT us Generic Conversion Md BARRETT URINE ORDERABLES Final Result Performing Organization Address [facility] Co de Phone Number [facility] [address] [place] [address], [place] [phone] * INFLUENZA A & B (11/19/2017 9:32 PM CDT) SPECIMEN TYPE NASOPHARYNX 11/19/2017 10:08 PM CDT [facility] INFLUENZA A NEGATIVE NEGATIVE 11/19/2017 10:08 PM CDT [facility] INFLUENZA B NEGATIVE NEGATIVE 11/19/2017 10:08 PM CDT [facility] 11/19/2017 9:32 PM CDT 11/19/2017 9:38 PM CDT us Generic Conversion Md [facility] MICROBIOLOGY - GENERAL ORDERABLES Final Result Performing Organization Address [facility]/ZIP Co de Phone Number [facility] [address] [place] [address], [place] [phone] * LYME DISEASE ANTIBODY (11/19/2017 9:32 PM CDT) LYME IGG/IGM <0.90 <0.90 Index 11/23/2017 6:50 PM CDT [facility] Comment: Reference ranges:Index ? Interpretation----- [...] apparent. COMMENT REPORT 11/23/2017 6:50 PM CDT [facility] GM [facility] Comment: Not indicatedTest Performed by Tram Ann,A Fourth Act García [facility],[address] [place] [address] 89394Cypxctulydia Robin M.D., Ph.D., Director of [phone], [facility] [id number] SERUM SPECIMEN / Unknown 11/19/2017 9:32 PM CDT 11/19/2017 9:38 PM CDT us Generic Conversion Md [facility] LABORATORY Final R esult [facility] [place] [place] [address], * PROCALCITONIN (PCT) (11/19/2017 9:32 PM CDT) Procalcitonin 0.05 0.00 - 0.25 NG/ML 11/19/2017 10:28 PM CDT [facility] Comment: PROCALCITONIN INTERPRETAION GUIDELINESLOWER RESPIRATORY [...] LABORATORY Final R esult Performing Organization Address [facility]/State/ZIP Co de Phone Number [facility] () [facility] [address] [place] [address], * (ABNORMAL) COMPREHENSIVE METABOLIC PANEL (11/19/2017 9:32 PM CDT) [facility] GLUCOSE 111(H) 70 - 99 MG/DL 11/19/2017 10:28 PM T [facility] BUN 9 7 - 18 MG/DL 11/19/2017 10:28 PM [facility] CREATININE S/P/B 0.89 0.7 - 1.3 MG/DL 11/19/2017 10:28 PM [facility] SODIUM S/P/B 136 136 - 145 MMOL/L 11/19/2017 10:28 PM [facility] POTASSIUM S/P/B 3.5 3.5 - 5.1 MMOL/L 11/19/2017 10:28 PM [facility] CHLORIDE S/P/B 98(L) 100 - 108 MMOL/L 11/19/2017 10:28 PM [facility] CO2 29.3 21 - 32 MMOL/L 11/19/2017 10:28 PM [facility] CALCIUM S/P/B 8.6 8.5 - 10.1 MG/DL 11/19/2017 10:28 PM [facility] BILIRUBIN TOTAL S/P/B 0.3 0.2 - 1.2 MG/DL 11/19/2017 10:28 PM [facility] TOTAL PROTEIN S/P/B 7.3 6.4 - 8.2 G/DL 11/19/2017 10:28 PM [facility] ALBUMIN S/P/B 3.5 3.4 - 5.0 G/DL 11/19/2017 10:28 PM [facility] AST 28 15 - 37 U/L 11/19/2017 10:28 PM [facility] ALT 36 16 - 60 U/L 11/19/2017 10:28 PM [facility] ALKALINE PHOSPHATASE S/P/B 126 50 - 136 U/L 11/19/2017 10:28 PM CDT [facility] ANION GAP 12.2 8 - 20 MMOL/L 11/19/2017 10:28 PM CDT [facility] BUN CREATININE RATIO 10.1 6 - 26 11/19/2017 10:28 PM CDT [facility] A/G RATIO 0.9(L) 1.0 - 2.0 RATIO 11/19/2017 10:28 PM CDT [facility] EGFR NON-AFR. AMER. >90 >90 ML/MIN/1.7 3 M2 11/19/2017 10:28 PM CDT [facility] EGFR AFR. AMER. >90 >90 ML/MIN/1.7 3 M2 11/19/2017 10:28 PM CDT [facility] Comment: NOTE: eGFR is not calculated for patients <18 years of age. This is an estimated GFR (CKD EPI) and should not be used for calculating drug doses. 11/19/2017 9:32 PM CDT 11/19/2017 9:38 PM CDT us Generic Conversion Md [facility] Final R esult [facility] [address] [place] [address], [place] [phone] * (ABNORMAL) CBC W/DIFF AUTOMATED (11/19/2017 9:32 PM CDT) WBC 6.1 4.4 - 11.0 x10'3/uL 11/19/2017 9:45 PM CDT [facility] RBC 4.55 4.50 - 5.90 x10'6/uL 11/19/2017 9:45 PM CDT [facility] HGB 14.0 14.0 - 17.5 G/DL 11/19/2017 9:45 PM CDT [facility] HCT 41.7 41.5 - 50.4 % 11/19/2017 9:45 PM CDT [facility] MCV 91.6 80.0 - 96.0 FL 11/19/2017 9:45 PM CDT [facility] MCH 30.8 26.5 - 31.4 PG 11/19/2017 9:45 PM T [facility] MCHC 33.6 31.9 - 34.8 G/DL 11/19/2017 9:45 PM CDT [facility] RDW 12.7 12.3 - 14.3 % 11/19/2017 9:45 PM T [facility] PLT 189 151 - 353 x10'3/uL 11/19/2017 9:45 PM T [facility] MPV 9.5(L) 9.7 - 11.9 FL 11/19/2017 9:45 PM CDT [facility] RBC MORPHOLOGY NORMAL 11/19/2017 9:45 PM T [facility] PLT MORPH. NORMAL 11/19/2017 9:45 PM [facility] WBC MORPHOLOGY NORMAL 11/19/2017 9:45 PM T [facility] LYMPHOCYTES % 21.2 15.8 - 45.0 % 11/19/2017 9:45 PM T [facility] NEUTROPHILS % 65.9 42.1 - 71.9 % 11/19/2017 9:45 PM CDT [facility] MONOCYTES % 10.9 5.7 - 12.5 % 11/19/2017 9:45 PM T [facility] EOSINOPHILS 1.5 0.0 - 5.6 % 11/19/2017 9:45 PM T [facility] BASOPHILS 0.3 0.0 - 1.3 % 11/19/2017 9:45 PM CDT [facility] ABS. NEUTROPHILS TOTAL 4.04 1.40 - 6.00 x10'3/uL 11/19/2017 9:45 PM CDT [facility] IMMATURE GRANS % 0.2 0.0 - 0.5 % 11/19/2017 9:45 PM CDT [facility] ABS. LYMPHOCYTES 1.30 0.80 - 4.70 x10'3/uL 11/19/2017 9:45 PM CDT [facility] 11/19/2017 9:32 PM CDT 11/19/2017 9:38 PM CDT us Generic Conversion Md [facility] Final R esult [facility] [address] [place] [address], [place] [phone] documented in this encounter Visit Diagnoses Diagnosis Urinary tract infection Urinary tract infection, site not specified documented in this encounter
--- OUTSIDE RECORDS SUMMARY | 2024-03-26 21:18 | XMS_ITS | Encounter Summary ---
Author Organization [facility] Address [address] [place] [address]. [place], [place] [address] [place] [address] Care Team Providers Care Tax Processor Name Role Phone Unavailable Primary Care Provider Unavailabl e Encounter Details Date Type Department Care Team (Late st Contact Info) Description 12/10/2012 Abstract [facility] Emergency Room [address] [place] [address] Rubi Chen MD Social History Tobacco Use Types Packs/Day Years Used Date Smoking Tobacco: Never Assessed Sex and Gender Information Value Date Recorded Sex Assigned at Male 05/10/2019 1:27 AM BOAT LOADER HELPER Legal Sex Male 7:38 PM CDT Gender Identity Male 05/10/2019 1:27 AM BOAT LOADER HELPER Sexual Orientation Not on file documented as of this encounter Plan of Treatment Not on file documented as of this encounter Visit Diagnoses Diagnosis Other orchitis, epididymitis, and epididymo-orchitis documented in this encounter
--- OUTSIDE RECORDS SUMMARY | 2024-03-26 21:18 | XMS_ITS | Encounter Summary ---
Author Organization [facility] Address [address] [place] [address]. [place], [place] [address] [place] [address] Care Team Providers Care Director Energy Name Role Phone Unavailable Primary Care Provider Unavailabl e Encounter Details Date Type Department Care Team (Late st Contact Info) Description 06/28/[address] 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 TRANSPARENCY CLEAR 06/29/2018 5:21 AM [facility] SPECIFIC GRAV[facility] (U) 1.010 1.000 - 1.030 06/29/2018 5:21 AM T [facility] U PH 8.0 5.0 - 9.0 06/29/2018 5:21 AM T [facility] LEUKOCYTES (U) NEGATIVE NEGATIVE 06/29/2018 5:21 AM T [facility] NITRITES NEGATIVE NEGATIVE 06/29/2018 5:21 AM T [facility] PROTEIN (U) NEGATIVE NEGATIVE 06/29/2018 5:21 AM T [facility] URINE GLUCOSE NEGATIVE NEGATIVE 06/29/2018 5:21 AM [facility] KETONES MG/DL (U) NEGATIVE NEGATIVE 06/29/2018 5:21 AM [facility] BILIRUBIN (U) NEGATIVE NEGATIVE 06/29/2018 5:21 AM T [facility] BLOOD (U) NEGATIVE NEGATIVE 06/29/2018 5:21 AM [facility] WBC/HPF NONE SEEN 0 - 5 /HPF 06/29/2018 5:21 AM [facility] RBC/HPF NONE SEEN 0 - 5 /HPF 06/29/2018 5:21 AM [facility] EPI/HPF NONE SEEN /HPF 06/29/2018 5:21 AM [facility] 06/28/2018 12:3 0 PM CDT 06/29/2018 5:14 AM CDT us Generic Conversion Md BARRETT URINE ORDERABLES Final Result [facility] [address] [place] [address], [place] [phone] documented in this encounter Visit Diagnoses Diagnosis Urinary tract infection Urinary tract infection, site not specified documented in this encounter
--- OUTSIDE RECORDS SUMMARY | 2024-03-26 21:18 | XMS_ITS | Encounter Summary ---
Author Organization [facility] Address [address] [place] [address]. [place], [place] [address] [place] [address] Care Team Providers Care Furs Salesperson Name Role Phone Unavailable Primary Care Provider Unavailabl e Encounter Details Date Type Department Care Team (Late st Contact Info) Description 10/18/2012 Abstract [facility] [address] [place] [address] Nahomy Sanchez, BACKEND TESTER [address] 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
--- OUTSIDE RECORDS SUMMARY | 2024-03-26 21:18 | XMS_ITS | Encounter Summary ---
Author Organization [facility] Address [address] [place] [address]. 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 Dec 14 2012 10:48AM Central Standard Time ENG FARMER documented in this encounter Plan of Treatment Not on file documented as of this encounter Visit Diagnoses Not on filedocumented in this encounter
--- OUTSIDE RECORDS SUMMARY | 2024-03-26 21:18 | XMS_ITS | Encounter Summary ---
Author Organization [facility] Address [address] [place] [address]. 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 Rec#: [id number] Birthdate: 1970 Admit/Svce Date: 12/10/2012 Disch Date: [...] 12/14/2012 11:54 A Job No: Doc No: [id number] cc: Jose Mo MD Electronically verified by:Rubi Holden M.D. Dec 15 2012 12:09PM Central Standard Time MILL OPERATOR documented in this encounter Plan of Treatment Not on file documented as of this encounter Visit Diagnoses Not on filedocumented in this encounter
--- OUTSIDE RECORDS SUMMARY | 2024-03-26 21:18 | XMS_ITS | Encounter Summary ---
Author Organization [facility] Address [address] [place] [address]. [place], [place] [address] [place] [address] Care Team Providers Care Offset Press Operator Helper Name Role Phone Jose Mo MD Primary Care Provider Saroj Griffin MD Unavailable [phone] Ania Topete NP Unavailable [phone] Encounter Details Date Type Department Care Team (Latest Contact Info) Description 02/10/2018 Abstract [facility] Lorelei Bliss MD Social History Tobacco Use Types Packs/Day Years Used Date Smoking Tobacco: Never Assessed Sex and Gender Information Value Date Recorded Sex Assigned at Male 05/10/2019 1:27 AM MUTUAL FUNDS AGENT Legal Sex Male 7:38 PM CDT Gender Identity Male 05/10/2019 1:27 AM MUTUAL FUNDS AGENT Sexual Orientation Not on file documented as of this encounter Plan of Treatment Not on file documented as of this encounter Visit Diagnoses Not on filedocumented in this encounter Additional Health Concerns Infection Onset Date Last Indicated Resolved Time COVID-19 Rule Out 12/29/2020 12/29/2020 12/29/2020 3:34 PM CDT COVID-19 Rule Out 03/13/2021 03/13/2021 03/13/2021 2:37 PM MUTUAL FUNDS AGENT COVID-19 Confirmed 03/13/2021 03/13/2021 12:32 AM MUTUAL FUNDS AGENT COVID-19 Rule Out 07/27/2023 07/27/2023 07/27/2023 8:33 PM CDT documented as of this encounter Care Teams Offset Press Operator Helper Relationship Specialty Start Date End Date Jose Mo MD [address] [address] PCP - General INTERNAL MEDICINE 05/09/19 [place] [address] [place] [address] Consulting Physician UROLOGY 11/20/23 Ania Topete NP [address] [place] [phone] NURSE PRACTITIONER 11/20/23 documented as of this encounter
--- OUTSIDE RECORDS SUMMARY | 2024-03-26 21:18 | XMS_ITS | Encounter Summary ---
Author Organization [facility] Address [address] [place] [address]. [place], [place] [address] [place] [address] Care Team Providers Care Ad Taker Name Role Phone Unavailable Primary Care Provider Unavailabl e Encounter Details Date Type Department Care Team (Late st Contact Info) Description 05/28/2009 Abstract [facility] CONVERSION [address] [place] [address] Lobo Campbell, DO [address] [place] [address] Social History Tobacco Use Types Packs/Day Years Used Date Smoking Tobacco: Never Assessed Sex and Gender Information Value Date Recorded Sex Assigned at Male 05/10/2019 1:27 AM PHOTOGRAPHY PROFESSOR Legal Sex Male 7:38 PM CDT Gender Identity Male 05/10/2019 1:27 AM PHOTOGRAPHY PROFESSOR Sexual Orientation Not on file documented as of this encounter Plan of Treatment Not on file documented as of this encounter Visit Diagnoses Not on filedocumented in this encounter
--- OUTSIDE RECORDS SUMMARY | 2024-03-26 21:18 | XMS_ITS | Encounter Summary ---
Author Organization [facility] Address [address] [place] [address]. [id number] [place] [address] Care Team Providers Care Split Leather Mosser Name Role Phone Unavailable Primary Care Provider Unavailabl e Encounter Details Date Type Department Care Team (Late st Contact Info) Description 04/19/2016 Abstract [facility] Emergency Room [address] [place], [place] [id number] Hussain Zapata MD [address] [address] Social History Tobacco Use Types Packs/Day Years Used Date Smoking Tobacco: Never Assessed Sex and Gender Information Value Date Recorded Sex Assigned at Male 05/10/2019 1:27 AM FAMILY SERVICES MANAGER Legal Sex Male 7:38 PM CDT Gender Identity Male 05/10/2019 1:27 AM FAMILY SERVICES MANAGER Sexual Orientation Not on file documented as of this encounter Plan of Treatment Not on file documented as of this encounter Visit Diagnoses Diagnosis Urinary tract infection Urinary tract infection, site not specified documented in this encounter
--- OUTSIDE RECORDS SUMMARY | 2024-03-26 21:18 | XMS_ITS | Encounter Summary ---
Author Organization [facility] Address [address] [place] [address]. [place] [address] Care Team Providers Care Club Manager Name Role Phone Unavailable Primary Care Provider Unavailabl e Encounter Details Date Type Department Care Team (Latest Contact Info) Description 10/19/2012 Abstract [facility] Medical [facility] Social History Tobacco Use Types Packs/Day Years Used Date Smoking Tobacco: Never Assessed Sex and Gender Information Value Date Recorded Sex Assigned at Male 05/10/2019 1:27 AM SOFTWARE DEVELOPMENT INTERN Legal Sex Male 7:38 PM CDT Gender Identity Male 05/10/2019 1:27 AM SOFTWARE DEVELOPMENT INTERN Sexual Orientation Not on file documented as of this encounter Plan of Treatment Not on file documented as of this encounter Visit Diagnoses Not on filedocumented in this encounter
--- OUTSIDE RECORDS SUMMARY | 2024-03-26 21:18 | XMS_ITS | Encounter Summary ---
Author Organization [facility] Address [address] [place] [address]. [place], [place] [address] [place] [address] Care Team Providers Care Stablehand Name Role Phone Unavailable Primary Care Provider Unavailabl e Encounter Details Date Type Department Care Team (Late st Contact Info) Description 02/06/2009 Abstract [facility] Emergency Room [address] [place] [address] Social History Tobacco Use Types Packs/Day Years Used Date Smoking Tobacco: Never Assessed Sex and Gender Information Value Date Recorded Sex Assigned at Male 05/10/2019 1:27 AM JAVA J2EE TECHNICAL LEAD Legal Sex Male 7:38 PM CDT Gender Identity Male 05/10/2019 1:27 AM JAVA J2EE TECHNICAL LEAD Sexual Orientation Not on file documented as of this encounter Plan of Treatment Not on file documented as of this encounter Visit Diagnoses Not on filedocumented in this encounter
--- OUTSIDE RECORDS SUMMARY | 2024-03-26 21:18 | XMS_ITS | Encounter Summary ---
Author Organization [facility] Address [address] [place] [address]. [place], [place] [id number] [place] [id number] Care Team Providers Care Rn Renal Name Role Phone Jose Champagne MD Primary Care Provider [phone] Reason for Referral * (Routine) - Closed Specialty Diagnoses / Procedures Referred By Contac t Referred To Contact Procedures PT eval and treat [place] [address] Phone: tel: fax: Referral ID Status Reason Start Date Expiration Date Visits Re quested Visits Authorized [id number] Closed 05/13/2019 06/10/2020 1 1 ER BOXER * Imaging (Urgent) - Closed Specialty Diagnoses / Procedures Referred By Contac t Referred To Contact RADIOLOGY Procedures US TESTICULAR [place] [address] Phone: tel: fax: Referral ID Status Reason Start Date Expiration Date Visits Re quested Visits Authorized [id number] Closed 05/13/2019 06/10/2020 1 1 ER BOXER * Imaging (Urgent) - Closed Specialty Diagnoses / Procedures Referred By Contac t Referred To Contact RADIOLOGY Procedures CT ABD+PEL WO CON Roseline Alvarez MD [address] [facility] [address] [address] Phone: tel: fax: Referral ID Status Reason Start Date Expiration Date Visits Re quested Visits Authorized [id number] Closed 05/11/2019 06/08/2020 1 1 ER BOXER * Imaging (Urgent) - Closed Specialty Diagnoses / Procedures Referred By Contac t Referred To Contact RADIOLOGY Procedures US TESTICULAR Yessica Dukes MD [facility] [place] [address] Phone: tel: [phone] fax: Referral ID Status Reason Start Date Expiration Date Visits Re quested Visits Authorized [id number] Closed 05/10/2019 06/07/2020 1 1 ER BOXER Reason for Visit * Reason Comments Urinary [...] Expiration Date Visits Re quested Visits Authorized [id number] 1 1 Encounter Details Date Type Department Care Team (Late st Contact Info) Description 05/09/2019 5:14 PM PRIMER BOXER - 05/15/2019 12:35 PM PRIMER BOXER Hospital Encounter [facility] Med/Surg [address] [place], [place] [id number] Steven Buitrago DO Pogue, Miranda F, LATEX THREAD MACHINE OPERATOR-BC Roseline Alvarez MD [address] [id number] Zainab Torres MD 1 [place] [address] [phone] (Work) [place] [address] [place] [address] [phone] (Work) Urinary Symptoms (Hx chronic [...] Sex Assigned at Male 05/10/2019 1:27 AM PRIMER BOXER Legal Sex Male 7:38 PM CDT Gender Identity Male 05/10/2019 1:27 AM PRIMER BOXER Sexual Orientation Not on file documented as of this encounter Last Filed Vital Signs Vital Sign Reading Time Taken Comments Blood Pressure 133/67 05/15/2019 11:45 AM PRIMER BOXER Pulse 77 05/15/2019 11:45 AM PRIMER BOXER Temperature 35.6 ??C (96 ??F) 05/15/2019 11: 45 AM PRIMER BOXER Respiratory Rate 20 05/15/2019 11:4 5 AM PRIMER BOXER Oxygen Saturation 94% 05/15/2019 11: 45 AM PRIMER BOXER Inhaled Oxygen Concentration - - Weight 111.2 kg (245 lb 2.4 oz) 05/15/2019 5:00 AM PRIMER BOXER Height 172.7 cm (5' 8 ) 05/09/2019 5:18 PM PRIMER BOXER Body Mass Index 37.28 05/09/2019 5:18 PM PRIMER BOXER documented in this encounter Functional Status * Question Answer Date of Assessment Author Status Do you have serious difficulty walking or climbing stairs? No 05/15/2019 12:02 PM PRIMER BOXER LópezCassie oviedo RN Act sherlyn Do you [...] Assessment Author Status No 05/15/2019 12:02 PM PRIMER BOXER Acti ve * RETIRED Are you blind [...] was visiting his Mother who lives up [place]: he subsequently drove back from seeing his mother back to [place]. He came to the ED and was [...] No results for input(s): PH, PCO2, PO2, [id number], BICARBWB, BASEDEFICIT, BASEEXCESS in the [id number] hours. No results found for this or [...] FINDINGS: Real-time ultrasound examination performed by the potato chip sacking machine operator demonstrates: The right testicle measures 4.1 x [...] normal. Lung bases are clear, within the xmrbm-rs-ljnz. ABDOMEN: 1. No free air below the [...] Your Medications These medications were sent to [id number] [place], [place] - [address] [facility] & [place] [address] [address] [facility] [id number] ?? levofloxacin 500 MG tablet Disposition: Home with self care Time Spent on Discharge >30 minutes Signed: CHERYL NOLEN APRN Cosigned by Sukhdeep Colon MD at 05/15/2019 3:25 PM PRIMER BOXER ER BOXER ER BOXER documented in this encounter Discharge Instructions * Discharge Instructions* Cassie Dawn, DANNA - 05/15/2019 12:08 PM PRIMER BOXER Images from the original note were not [...] or urine. Where can I learn more? [employer] http://www.urologyhealth.org/urology/index.cfm?wmyaldg=680 National Organization for Rare Disorders http://www.rarediseases.org/hayx-vskjcph-dmdaslkaued/rare-diseases/byID/759/view Abstract Last Reviewed Date 2017-02-06 Consumer Information [...] right for you. Copyright Copyright ?? 2019 [employer]. and its affiliates and/or licensors. All rights [...] treatment. Where can I learn more? National [place] [employer] http://www.nichd.nih.gov/health/topics/urinary/conditioninfo/Pages/uti.aspx [...] right for you. Copyright Copyright ?? 2019 [employer] and its affiliates and/or licensors. All rights reserved. ER BOXER * Attachments The following attachments cannot be sent through Care Everywhere. * Urinary Tract Infection Discharge Instructions, Adult (Zambian) documented in this encounter Medications at Time [...] RN - 05/15/2019 11:46 AM CST Discharging ER BOXER * Jacque Prasad RN - 05/15/2019 7:57 AM CST AEB pt to be d/c to home today ER BOXER * Jacque Prasad RN - 05/15/2019 7:56 AM CST AEB orders to d/c pt home today ER BOXER * Estela Silva RN - 05/14/2019 11:22 PM CST PT afebrile so far during this shift. PT and girlfriend expresses cautious excitement for possible discharge tomorrow. ER BOXER * Kayli Lock, PT - 05/14/2019 3:57 [...] and no PT needed at this time. ER BOXER * JORGE Garcia - 05/14/2019 12:17 PM CST Interdisciplinary Team conference held. In attendance; case management, UR, nursing, PT, OT, cardiopulmonary, TEMPERATURE CONTROL INSPECTOR, Hospitalist, Pastoral Care, and Pharmacy. Meeting held at 11:00 Possible discharge home tomorrow as long as patient remains fever free. Will return home with his significant other. Denies need for home health or DME. ER BOXER * Zainab Torres MD - 05/14/2019 11:30 [...] No results for input(s): PH, PCO2, PO2, [id number], BICARBWB, BASEDEFICIT, BASEEXCESS in the [id number] hours. No results found for this or [...] FINDINGS: Real-time ultrasound examination performed by the potato chip sacking machine operator demonstrates: The right testicle measures 4.1 x [...] follow-upto monitor response to therapy. Interpreted By: Rja Hendricks, 05/10/2019 11:53 AM Xr Abd Kub Result Date: 05/09/2019 IMAGING STUDIES: XR ABD KUB DATE: 05/09/2019 5:56 PM COMPARISON STUDIES: No previous available. CLINICAL HISTORY: Constipation .Additional history. FINDINGS IMPRESSION : CHEST: 1. The cardiac configuration is normal. Lung bases are clear, within the vrkui-gh-nsau. ABDOMEN: 1. No free air below the [...] hospital encounter of 05/09/19 ECG 12-Lead Narrative [facility] Test Date: 2019-05-09 Pat Name: ROSELINE PEREZ Department: Room: [place] [address] Gender: Male Cardiology Clinical Nurse Specialist: [facility] : 1970 Requested By: TASNEEM DARNELL Order Number: [id number] Reading MD: Rg Pierre Measurements Intervals [place] Rate: 99 P: 49 AL: 174 QRS: 58 QRSD: 90 T: 37 QT: 319 QTc: 410 Interpretive Statements SINUS RHYTHM No previous ECG available for comparison ER BOXER Assessment & Plan Gram negative Sepsis Criteria [...] significant other at bedside. ZAINAB TORRES MD ER BOXER * Kayli Lock, PT - 05/14/2019 10:39 AM CST 05/14/19 1000 Therapy Visit Subjective Attempted PT x 2 this am. Patient c/o severe [place] again and significant other declined PT at this time. Ice bag provided to significant other and she was going to apply ice pack to patient'sforehead for pain relief. ER BOXER * JORGE Garcia - 05/13/2019 3:12 PM CST Interdisciplinary Team conference held. In attendance; case management, UR, nursing, PT, OT, cardiopulmonary, TEMPERATURE CONTROL INSPECTOR, Hospitalist, Pastoral Care, and Pharmacy. Meeting held at 11:00 PT to evaluate. Plan to redo ultrasound. Possible admit to [facility] pending insurance approval. ER BOXER * Kayli Lock PT - 05/13/2019 3:12 PM CST 05/13/19 1500 Therapy Visit Subjective Attempted PT eval. Patient c/o severe QUINTANA and declined PT today. Will attempt again in am. ER BOXER * Zainab Torres MD - 05/13/2019 10:15 [...] No results for input(s): PH, PCO2, PO2, [id number], BICARBWB, BASEDEFICIT, BASEEXCESS in the [id number] hours. No results found for this or [...] FINDINGS: Real-time ultrasound examination performed by the potato chip sacking machine operator demonstrates: The right testicle measures 4.1 x [...] normal. Lung bases are clear, within the dhvur-xw-cugi. ABDOMEN: 1. No free air below the [...] hospital encounter of 05/09/19 ECG 12-Lead Narrative [facility] Test Date: 2019-05-09 Pat Name: ROSELINE PEREZ Department: Room: EXAM 505 Gender: Male Cardiology Clinical Nurse Specialist: [facility] : 1970 Requested By: TASNEEM DARNELL Order Number: [id number] Reading MD: Rg Pierre Measurements Intervals [place] Rate: 99 P: 49 AL: 174 QRS: 58 QRSD: 90 T: 37 QT: 319 QTc: 410 Interpretive Statements SINUS RHYTHM No previous ECG available for comparison ER BOXER Assessment & Plan Gram negative Sepsis Criteria [...] significant other at bedside. ZAINAB TORRES MD ER BOXER ER BOXER * Chiqui Bernal RN - 05/12/2019 10:30 PM CST Elevated temp again. Discussed discharge to swing bed, possibly not tomorrow r/t temp ER BOXER * Roseline Alvarez MD - 05/12/2019 3:14 [...] activity LFTs in a.m. ROSELINE ALVAREZ MD ER BOXER ER BOXER * JORGE Garcia - 05/12/2019 2:39 PM CST Interdisciplinary Team conference held. In attendance; case management, UR, nursing, PT, OT, cardiopulmonary, TEMPERATURE CONTROL INSPECTOR, Hospitalist, Pastoral Care, and Pharmacy. Meeting held at 11:00 Possible admit to [facility] for continued IV antibiotics, patient and significant other are in agreement. Authorization requested. ER BOXER * Roseline Alvarez MD - 05/11/2019 1:26 [...] normal. Lung bases are clear, within the enrno-lk-cptk. ABDOMEN: 1. No free air below the [...] every 8 CMP a.m. ROSELINE ALVAREZ MD ER BOXER * JORGE Garcia - 05/11/2019 12:16 PM CST Interdisciplinary Team conference held. In attendance; case management, UR, nursing, PT, OT, cardiopulmonary, TEMPERATURE CONTROL INSPECTOR, Hospitalist, Pastoral Care, and Pharmacy. Meeting held at 11:00 Plan to discharge home with significant other. No needs identified at this time. Possible discharge2-3 days. ER BOXER * JORGE Gracia - 05/11/2019 8:56 AM CST 05/11/19 0853 Referral Data Referral Reason Discharge Planning Source of Information Patient Patient Information Primary Caregiver Self;Family Support System Immediate family Baseline ADL's Functional Status Independent Living Arrangements Spouse/significant other Type of Residence Private residence Ambulation Assistance No Active DME Four wheel walker;Wheelchair;Ramps Bathing/Grooming Assistance No Dressing Assistance No Behavior Oriented;Cooperative Communication Talks;Understands speaking;Understands Zambian Socioeconomic Needs Caregiver Needed No At Risk [...] of major lifestyle changes, including change in emt intermediate living environment No Family concerns/conflicts No Inadequate social and/or financial supports No Abuse and/or neglect of elder, adult or child No Psychiatric and/or substance abuse issues affecting current hospitalization No Homelessness with lack of safe discharge environment No Need for guardianship petition No Chaptered patient No [place] Only - Criminal Background check [place] only - Is patient going to [facility]? No Plans to return home where he lives with his significant other. Patient reports he uses a walker athome but does have a wheelchair if needed. Denies need for home health or additional DME at this time. ER BOXER * Ekaterina Gill RN - 05/11/2019 2:02 AM CST ER BOXER * Cassie Dawn RN - 05/10/2019 2:49 PM CST Progressing ER BOXER documented in this encounter H&P Notes * Roseline Alvarez MD - 05/10/2019 2:01 PM CST HISTORY & PHYSICAL Patient Active Problem List Diagnosis ??? Urinary tract infection ??? Epididymitis ??? Sepsis ([facility]) Patient's admission date: 05/09/2019 Attending provider: [...] was visiting his Mother who lives up [place]: he subsequently drove back from seeing his mother back to [place]. He came to the ED and was [...] Continue IVF Repeat CMP ROSELINE ALVAREZ MD ER BOXER documented in this encounter ED Notes * [...] for admission. Morgan Barnes MD 02/02/20 2017 ER BOXER * Tasneem Darnell, LATEX THREAD MACHINE OPERATOR-BC - 05/09/2019 5:46 PM CST Images from the original note were not included. History Chief Complaint Patient presents with ??? Urinary Symptoms Hx chronic UTIs x several years. C/o slight scrotum swelling, fever 101.7 today, burning with urination, decreased urination. Last normal BM 2 days ago. C/o weakness and fullness. ??? Constipation Roseline Perez is a 49-year-old male who presented [...] URINE US TESTICULAR Final Result by User, [id number] (05/10 120) IMAGING STUDIES: US TESTICULAR DATE: 05/10/2019 10:52 AM COMPARISON STUDIES: No previous exams available CLINICAL HISTORY: Bilateral testicular pain and swelling . . FINDINGS: Real-time ultrasound examination performed by the potato chip sacking machine operator demonstrates: The right testicle measures 4.1 x [...] XR ABD KUB Final Result by User, [id number] (05/09 1816) IMAGING STUDIES: XR ABD KUB DATE: 05/09/2019 5:56 PM COMPARISON STUDIES: No previous available. CLINICAL HISTORY: Constipation .Additional history. FINDINGS IMPRESSION : CHEST: 1. The cardiac configuration is normal. Lung bases are clear, within the [id number]-ii-spyi. ABDOMEN: 1. No free air below the [...] May 10 1356 Sun May 09, 2019 [id number]--Pt transferred to Dr Barnes, pending lab work and additional evaluation. [MP] ED Course User Index [MP] Tasneem Darnell, LATEX THREAD MACHINE OPERATOR- Medications cyclobenzaprine (FLEXERIL) tablet 10 mg (10 [...] errors as this chart was documented using [employer], a dictation software. LULÚ Amor 05/10/19 1358 Cosigned by Steven Buitrago DO at 05/10/2019 3:58 PM PRIMER BOXER ER BOXER ER BOXER documented in this encounter Plan of Treatment Not on file documented as of this encounter Goals Goal Patient Goal Type Associated Problems Recent Progress Patient-Stated? Author Return home General No Zayra Kidd, UROLOGY TEACHER Note: Plan to return home with significant other. No DME or home health needed at this time. documented as of this encounter Procedures Procedure Name Priority Date/Time Associated Diagnosis Comments COMPREHENSIVE METABOLIC PANEL Routine 05/14/2019 5:57 AM PRIMER BOXER CBC W/DIFF AUTOMATED Routine 05/14/2019 5:57 AM PRIMER BOXER US TESTICULAR Today 05/13/2019 2:30 PM PRIMER BOXER PROCALCITONIN (PCT) Routine 05/13/2019 7 :50 AM PRIMER BOXER COMPREHENSIVE METABOLIC PANEL Routine 05/13/2019 7:50 AM PRIMER BOXER CBC W/DIFF AUTOMATED Routine 05/13/2019 7:50 AM PRIMER BOXER COMPREHENSIVE METABOLIC PANEL Routine 05/12/2019 4:15 AM PRIMER BOXER LACTIC ACID Routine 05/12/2019 4:15 AM PRIMER BOXER CULTURE, BACTERIA, BLOOD TIMED 05/12/2019 4:15 AM PRIMER BOXER CULTURE, BACTERIA, BLOOD STAT 05/12/2019 4:[address] ABD+PEL WO CON Today 05/11/2019 3:2 2 PM PRIMER BOXER US TESTICULAR Today 05/10/2019 11:43 AM PRIMER BOXER COMPREHENSIVE METABOLIC PANEL Routine 05/10/2019 5:35 AM PRIMER BOXER CBC W/DIFF AUTOMATED Routine 05/10/2019 5:35 AM PRIMER BOXER ECG 12-LEAD STAT 05/09/2019 6:49 PM PRIMER BOXER XR ABD KUB STAT 05/09/2019 6:11 PM PRIMER BOXER COMPREHENSIVE METABOLIC PANEL STAT 05/09/2019 6:10 PM PRIMER BOXER LACTIC ACID STAT 05/09/2019 6:10 PM PRIMER BOXER CULTURE, BACTERIA, BLOOD STAT 05/09/2019 6:10 PM PRIMER BOXER CBC W/DIFF AUTOMATED STAT 05/09/2019 6:10 PM PRIMER BOXER CULTURE, BACTERIA, BLOOD STAT 05/09/2019 6:00 PM PRIMER BOXER HC URINALYSIS AUTO W/O MICRO STAT 05/09/2019 5:58 PM PRIMER BOXER URINALYSIS MICRO ONLY STAT 05/09/2019 5:58 PM PRIMER BOXER URINE BACTERIA CULTURE STAT 0 5:57 PM PRIMER BOXER documented in this encounter Results * (ABNORMAL) BASIC METABOLIC PANEL (05/22/2019 2:19 PM PRIMER BOXER) Pathologist [facility] GLUCOSE 104(H) 70 - 99 MG/DL 05/22/2019 2:40 PM [facility] BUN 14 7 - 18 MG/DL 05/22/2019 2:40 PM [facility] CREATININE S/P/B 0.83 0.7 - 1.3 MG/DL 05/22/2019 2:40 PM [facility] SODIUM S/P/B 138 136 - 145 MMOL/L 05/22/2019 2:40 PM [facility] POTASSIUM S/P/B 4.7 3.5 - 5.1 MMOL/L 05/22/2019 2:40 PM [facility] CHLORIDE S/P/B 100 100 - 108 MMOL/L 05/22/2019 2:40 PM [facility] CO2 23.5 21 - 32 MMOL/L 05/22/2019 2:40 PM [facility] CALCIUM S/P/B 8.8 8.5 - 10.1 MG/DL 05/22/2019 2:40 PM [facility] ANION GAP 14.5 5 - 15 MMOL/L 05/22/2019 2:40 PM [facility] BUN CREATININE RATIO 16.9 6 - 26 05/22/2019 2:40 PM [facility] EGFR NON-AFR. AMER. >90 >90 ML/MIN/1.7 3 M2 05/22/2019 2:40 PM [facility] EGFR AFR. AMER. >90 >90 ML/MIN/1.7 3 M2 05/22/2019 2:40 PM [facility] Comment: NOTE: eGFR is not calculated for patients <18 years of age. This is an estimated GFR (CKD EPI) and should not be used for calculating drug doses. 05/22/2019 2:19 PM PRIMER BOXER Cheryl Marinelli Chloesusi PARTNERSHIP MANAGER LABORATORY Final Result [facility] [address] [place] [address], * (ABNORMAL) CBC W/DIFF AUTOMATED (05/22/2019 2:19 PM PRIMER BOXER) WBC 8.1 4.4 - 11.0 x10'3/uL 05/22/2019 2:27 PM [facility] RBC 4.32(L) 4.50 - 5.90 x10'6/uL 05/22/2019 2:27 PM [facility] HGB 13.0(L) 14.0 - 17.5 G/DL 05/22/2019 2:27 PM [facility] HCT 40.0(L) 41.5 - 50.4 % 05/22/2019 2:27 PM [facility] MCV 92.6 80.0 - 96.0 FL 05/22/2019 2:27 PM [facility] MCH 30.1 26.5 - 31.4 PG 05/22/2019 2:27 PM [facility] MCHC 32.5 31.9 - 34.8 G/DL 05/22/2019 2:27 PM [facility] RDW 12.9 12.3 - 14.3 % 05/22/2019 2:27 PM [facility] PLT 314 151 - 353 x10'3/uL 05/22/2019 2:27 PM [facility] MPV 10.1 9.7 - 11.9 FL 05/22/2019 2:27 PM [facility] RBC MORPHOLOGY NORMAL 05/22/2019 2:27 PM [facility] PLT MORPH. NORMAL 05/22/2019 2:27 PM [facility] WBC MORPHOLOGY NORMAL 05/22/2019 2:27 PM [facility] LYMPHOCYTES % 29.3 15.8 - 45.0 % 05/22/2019 2:27 PM [facility] NEUTROPHILS % 60.3 42.1 - 71.9 % 05/22/2019 2:27 PM [facility] MONOCYTES % 7.4 5.7 - 12.5 % 05/22/2019 2:27 PM [facility] EOSINOPHILS 1.2 0.0 - 5.6 % 05/22/2019 2:27 PM [facility] BASOPHILS 0.6 0.0 - 1.3 % 05/22/2019 2:27 PM [facility] ABS. NEUTROPHILS TOTAL 4.85 1.40 - 6.00 x10'3/uL 05/22/2019 2:27 PM [facility] IMMATURE GRANS % 1.2(H) 0.0 - 0.5 % 05/22/2019 2:27 PM [facility] ABS. LYMPHOCYTES 2.36 0.80 - 4.70 x10'3/uL 05/22/2019 2:27 PM [facility] 05/22/2019 2:19 PM PRIMER BOXER us Cheryl Nolen PARTNERSHIP MANAGER LABORATORY Final Result [facility] [address] [place] [address], * (ABNORMAL) COMPREHENSIVE METABOLIC PANEL (05/14/2019 5:57 AM [facility]) [facility] GLUCOSE 102(H) 70 - 99 MG/DL 05/14/2019 7:41 AM [facility] BUN 7 7 - 18 MG/DL 05/14/2019 7:41 AM [facility] CREATININE S/P/B 0.71 0.7 - 1.3 MG/DL 05/14/2019 7:41 AM [facility] SODIUM S/P/B 140 136 - 145 MMOL/L 05/14/2019 7:41 AM [facility] POTASSIUM S/P/B 3.9 3.5 - 5.1 MMOL/L 05/14/2019 7:41 AM [facility] CHLORIDE S/P/B 102 100 - 108 MMOL/L 05/14/2019 7:41 AM [facility] CO2 28.8 21 - 32 MMOL/L 05/14/2019 7:41 AM [facility] CALCIUM S/P/B 8.5 8.5 - 10.1 MG/DL 05/14/2019 7:41 AM [facility] BILIRUBIN TOTAL S/P/B 0.2 0.2 - 1.2 MG/DL 05/14/2019 7:41 AM [facility] TOTAL PROTEIN S/P/B 6.9 6.4 - 8.2 G/DL 05/14/2019 7:41 AM [facility] ALBUMIN S/P/B 2.8(L) 3.4 - 5.0 G/DL 05/14/2019 7:41 AM [facility] AST 41(H) 15 - 37 U/L 05/14/2019 7:41 AM [facility] ALT 83(H) 16 - 60 U/L 05/14/2019 7:41 AM [facility] ALKALINE PHOSPHATASE S/P/B 204(H) 50 - 136 U/L 05/14/2019 7:41 AM [facility] ANION GAP 9.2 5 - 15 MMOL/L 05/14/2019 7:41 AM [facility] BUN CREATININE RATIO 9.9 6 - 26 05/14/2019 7:41 AM [facility] A/G RATIO 0.7(L) 1.0 - 2.0 RATIO 05/14/2019 7:41 AM [facility] EGFR NON-AFR. AMER. >90 >90 ML/MIN/1.7 3 M2 05/14/2019 7:41 AM [facility] EGFR AFR. AMER. >90 >90 ML/MIN/1.7 3 M2 05/14/2019 7:41 AM [facility] Comment: NOTE: eGFR is not calculated for patients <18 years of age. This is an estimated GFR (CKD EPI) and should not be used for calculating drug doses. 05/14/2019 5:57 AM PRIMER BOXER us Zainab Torres MD LABORATORY Final Result [facility] [address] [place] [address], * (ABNORMAL) CBC W/DIFF AUTOMATED (05/14/2019 5:57 AM PRIMER BOXER) WBC 5.4 4.4 - 11.0 x10'3/uL 05/14/2019 7:25 AM [facility] RBC 3.93(L) 4.50 - 5.90 x10'6/uL 05/14/2019 7:25 AM [facility] HGB 11.4(L) 14.0 - 17.5 G/DL 05/14/2019 7:25 AM [facility] HCT 35.4(L) 41.5 - 50.4 % 05/14/2019 7:25 AM [facility] MCV 90.1 80.0 - 96.0 FL 05/14/2019 7:25 AM [facility] MCH 29.0 26.5 - 31.4 PG 05/14/2019 7:25 AM [facility] MCHC 32.2 31.9 - 34.8 G/DL 05/14/2019 7:25 AM [facility] RDW 12.5 12.3 - 14.3 % 05/14/2019 7:25 AM [facility] PLT 162 151 - 353 x10'3/uL 05/14/2019 7:25 AM [facility] MPV 10.1 9.7 - 11.9 FL 05/14/2019 7:25 AM [facility] SEG NEUTROPHILS 50 42 - 72 % 0 8:24 AM [facility] LYMPHOCYTES 27 15.8 - 45.0 % 05/14/2019 8:24 AM [facility] MONOCYTES 22(H) 5.7 - 12.5 % 05/14/2019 8:24 AM [facility] EOSINOPHILS 1 0 - 5.6 % 05/14/2019 8:24 AM [facility] ABS. NEUTROPHILS TOTAL 2.70 1.40 - 6.00 x10'3/uL 05/14/2019 8:24 AM [facility] ABS. LYMPHOCYTES 1.46 0.80 - 4.70 x10'3/uL 05/14/2019 8:24 AM [facility] PLT MORPH. NORMAL 05/14/2019 8:24 AM [facility] RBC MORPHOLOGY NORMAL 05/14/2019 8:24 AM PRIMER BOXER [facility] WBC MORPHOLOGY NORMAL 05/14/2019 8:24 AM PRIMER BOXER [facility] 05/14/2019 5:57 AM PRIMER BOXER us Zainab Torres MD LABORATORY Final Result Performing Organization Address City/State/[facility] Co de Phone Number [facility] [address] [place] [address], [place] [phone] * US TESTICULAR (05/13/2019 2:30 PM PRIMER BOXER) Anatomical Region Laterality Modality Pelvis Ultrasound 05/13/2019 2:33 PM PRIMER BOXER Impressions 05/13/2019 2:39 PM PRIMER BOXER IMPRESSION: 1. ??Findings suggestive bilateral epididymoorchitis with bilateral small hydroceles with internal debris. There is no interval significant change in the size of the hydroceles and no evidence of a pyocele at this time. The testicular parenchyma does appear slightly edematous when compared to previous study. Interpreted By: Raj Hendricks, 05/13/2019 2:33 PM Narrative 05/13/2019 2:39 PM PRIMER BOXER IMAGING STUDIES: ??US TESTICULAR ? DATE: ??05/13/2019 1:14 PM COMPARISON STUDIES: 05/10/2019 CLINICAL HISTORY: Recurrent fever, epididymitis . ?? . FINDINGS: Real-time ultrasound examination performed by the potato chip sacking machine operator demonstrates: The right testicle measures 3.8 x [...] FINDINGS: Real-time ultrasound examination performed by the potato chip sacking machine operator demonstrates: The right testicle measures 3.8 x [...] Result * PROCALCITONIN (PCT) (05/13/2019 7:50 AM PRIMER BOXER) Procalcitonin 0.22 0.00 - 0.25 NG/ML 05/13/2019 1:39 PM PRIMER BOXER [facility] Comment: PROCALCITONIN INTERPRETAION GUIDELINES LOWER RESPIRATORY [...] OF PCT IS RECOMMENDED. 05/13/2019 7:50 AM PRIMER BOXER Zainab Torres MD LABORATORY Final Result [facility] [address] [place] [address], * (ABNORMAL) COMPREHENSIVE METABOLIC PANEL (05/13/2019 7:50 AM PRIMER BOXER) [facility] GLUCOSE 141(H) 70 - 99 MG/DL 05/13/2019 11:39 AM PRIMER BOXER [facility] BUN 7 7 - 18 MG/DL 05/13/2019 11:39 AM PRIMER BOXER [facility] CREATININE S/P/B 0.81 0.7 - 1.3 MG/DL 05/13/2019 11:39 AM [facility] SODIUM S/P/B 140 136 - 145 MMOL/L 05/13/2019 11:39 AM [facility] POTASSIUM S/P/B 3.5 3.5 - 5.1 MMOL/L 05/13/2019 11:39 AM [facility] CHLORIDE S/P/B 103 100 - 108 MMOL/L 05/13/2019 11:39 AM [facility] CO2 29.9 21 - 32 MMOL/L 05/13/2019 11:39 AM [facility] CALCIUM S/P/B 8.3(L) 8.5 - 10.1 MG/DL 05/13/2019 11:39 AM [facility] BILIRUBIN TOTAL S/P/B 0.3 0.2 - 1.2 MG/DL 05/13/2019 11:39 AM [facility] TOTAL PROTEIN S/P/B 6.6 6.4 - 8.2 G/DL 05/13/2019 11:39 AM [facility] ALBUMIN S/P/B 2.8(L) 3.4 - 5.0 G/DL 05/13/2019 11:39 AM [facility] AST 55(H) 15 - 37 U/L 05/13/2019 11:39 AM [facility] ALT 93(H) 16 - 60 U/L 05/13/2019 11:39 AM [facility] ALKALINE PHOSPHATASE S/P/B 209(H) 50 - 136 U/L 05/13/2019 11:39 AM [facility] ANION GAP 7.1 5 - 15 MMOL/L 05/13/2019 11:39 AM [facility] BUN CREATININE RATIO 8.6 6 - 26 05/13/2019 11:39 AM [facility] A/G RATIO 0.7(L) 1.0 - 2.0 RATIO 05/13/2019 11:39 AM [facility] EGFR NON-AFR. AMER. >90 >90 ML/MIN/1.7 3 M2 05/13/2019 11:39 AM [facility] EGFR AFR. AMER. >90 >90 ML/MIN/1.7 3 M2 05/13/2019 11:39 AM [facility] Comment: NOTE: eGFR is not calculated for patients <18 years of age. This is an estimated GFR (CKD EPI) and should not be used for calculating drug doses. 05/13/2019 7:50 AM PRIMER BOXER Zainab Torres MD LABORATORY Final Result [facility] [address] [place] [address], [place] [phone] * (ABNORMAL) CBC W/DIFF AUTOMATED (05/13/2019 7:50 AM PRIMER BOXER) WBC 5.1 4.4 - 11.0 x10'3/uL 05/13/2019 11:31 AM [facility] RBC 3.73(L) 4.50 - 5.90 x10'6/uL 05/13/2019 11:31 AM [facility] HGB 11.0(L) 14.0 - 17.5 G/DL 05/13/2019 11:31 AM [facility] HCT 33.6(L) 41.5 - 50.4 % 05/13/2019 11:31 AM [facility] MCV 90.1 80.0 - 96.0 FL 05/13/2019 11:31 AM [facility] MCH 29.5 26.5 - 31.4 PG 05/13/2019 11:31 AM [facility] MCHC 32.7 31.9 - 34.8 G/DL 05/13/2019 11:31 AM [facility] RDW 12.5 12.3 - 14.3 % 05/13/2019 11:31 AM [facility] PLT 146(L) 151 - 353 x10'3/uL 05/13/2019 11:31 AM [facility] MPV 9.8 9.7 - 11.9 FL 05/13/2019 11:31 AM [facility] SEG NEUTROPHILS 60 42 - 72 % 0 12:01 PM [facility] BANDS 3 % 05/13/2019 12:01 PM [facility] LYMPHOCYTES 25 15.8 - 45.0 % 05/13/2019 12:01 PM [facility] MONOCYTES 11 5.7 - 12.5 % 05/13/2019 12:01 PM [facility] EOSINOPHILS 1 0 - 5.6 % 05/13/2019 12:01 PM [facility] ABS. NEUTROPHILS TOTAL 3.21 1.40 - 6.00 x10'3/uL 05/13/2019 12:01 PM [facility] ABS. LYMPHOCYTES 1.28 0.80 - 4.70 x10'3/uL 05/13/2019 12:01 PM [facility] PLT MORPH. NORMAL 05/13/2019 12:01 PM [facility] RBC MORPHOLOGY NORMAL 05/13/2019 12:01 PM [facility] WBC MORPHOLOGY NORMAL 05/13/2019 12:01 PM [facility] 05/13/2019 7:50 AM PRIMER BOXER us Zainab Torres MD LABORATORY Final Result [facility] [address] [place] [address], [place] [phone] * CULTURE, BACTERIA, BLOOD (05/12/2019 4:15 AM PRIMER BOXER) SPEC DESCRIPTION BLOOD 05/12/2019 3:55 AM PRIMER BOXER [facility] SPECIAL REQUESTS NO SPECIAL REQUEST 05/12/2019 3:55 AM PRIMER BOXER [facility] CULTURE RESULT NO GROWTH 5 DAYS 05/17/2019 10:05 AM PRIMER BOXER [facility] BLOOD SPECIMEN OBTAINED FOR BLOOD CULTURE / Unknown 05/12/2019 4:15 AM PRIMER BOXER 05/12/2019 4:29 AM PRIMER BOXER Marito Chu MD MICROBIOLOGY - GENERAL ORDERAB LES Final Result [facility] [address] [place] [address], [place] [phone] [facility] [address] [place] [address], [place] [phone] * CULTURE, BACTERIA, BLOOD (05/12/2019 4:15 AM PRIMER BOXER) SPEC DESCRIPTION BLOOD 05/12/2019 3:55 AM PRIMER BOXER [facility] SPECIAL REQUESTS NO SPECIAL REQUEST 05/12/2019 3:55 AM PRIMER BOXER [facility] CULTURE RESULT NO GROWTH 5 DAYS 05/17/2019 10:05 AM PRIMER BOXER [facility] BLOOD SPECIMEN OBTAINED FOR BLOOD CULTURE / Unknown 05/12/2019 4:15 AM PRIMER BOXER 05/12/2019 4:28 AM PRIMER BOXER Marito Chu MD MICROBIOLOGY - GENERAL ORDERAB LES Final Result Performing Organization Address City/[facility]/ZIP Co de Phone Number [facility] [address] [place] [address], [place] [phone] [facility] [address] [place] [address], [place] [phone] * LACTIC ACID (05/12/2019 4:15 AM PRIMER BOXER) LACTIC ACID VENOUS 0.6 0.4 - 2.0 MMOL/L 05/12/2019 4:48 AM [facility] 05/12/2019 4:15 AM PRIMER BOXER Marito Chu MD LABORATORY Final Result Performing Organization Address [facility]/ZIP Co de Phone Number [facility] [address] [place] [address], [place] [phone] * (ABNORMAL) COMPREHENSIVE METABOLIC PANEL (05/12/2019 4:15 AM PRIMER BOXER) GLUCOSE 119(H) 70 - 99 MG/DL 05/12/2019 4:45 AM [facility] BUN 6(L) 7 - 18 MG/DL 05/12/2019 4:45 AM [facility] CREATININE S/P/B 0.89 0.7 - 1.3 MG/DL 05/12/2019 4:45 AM [facility] SODIUM S/P/B 136 136 - 145 MMOL/L 05/12/2019 4:45 AM [facility] POTASSIUM S/P/B 3.8 3.5 - 5.1 MMOL/L 05/12/2019 4:45 AM [facility] CHLORIDE S/P/B 100 100 - 108 MMOL/L 05/12/2019 4:45 AM [facility] CO2 26.5 21 - 32 MMOL/L 05/12/2019 4:45 AM [facility] CALCIUM S/P/B 7.9(L) 8.5 - 10.1 MG/DL 05/12/2019 4:45 AM [facility] BILIRUBIN TOTAL S/P/B 0.5 0.2 - 1.2 MG/DL 05/12/2019 4:45 AM [facility] TOTAL PROTEIN S/P/B 6.6 6.4 - 8.2 G/DL 05/12/2019 4:45 AM [facility] ALBUMIN S/P/B 2.8(L) 3.4 - 5.0 G/DL 05/12/2019 4:45 AM [facility] AST 61(H) 15 - 37 U/L 05/12/2019 4:45 AM [facility] ALT 91(H) 16 - 60 U/L 05/12/2019 4:45 AM [facility] ALKALINE PHOSPHATASE S/P/B 192(H) 50 - 136 U/L 05/12/2019 4:45 AM [facility] ANION GAP 9.5 5 - 15 MMOL/L 05/12/2019 4:45 AM [facility] BUN CREATININE RATIO 6.7 6 - 26 05/12/2019 4:45 AM [facility] A/G RATIO 0.7(L) 1.0 - 2.0 RATIO 05/12/2019 4:45 AM [facility] EGFR NON-AFR. AMER. >90 >90 ML/MIN/1.7 3 M2 05/12/2019 4:45 AM [facility] EGFR AFR. AMER. >90 >90 ML/MIN/1.7 3 M2 05/12/2019 4:45 AM PRIMER BOXER [facility] Comment: NOTE: eGFR is not calculated for patients <18 years of age. This is an estimated GFR (CKD EPI) and should not be used for calculating drug doses. 05/12/2019 4:15 AM PRIMER BOXER Roseline Alvarez MD LABORATORY Final Result [facility] [address] [place] [address], * CT ABD+PEL WO CON (05/11/2019 3:22 PM PRIMER BOXER) Anatomical Region Laterality Modality Abdomen Computed Tomogra phy 05/11/2019 3:32 PM PRIMER BOXER Impressions 05/11/2019 3:36 PM PRIMER BOXER FINDINGS AND IMPRESSION: LOWER CHEST: 1. ??Lungs: [...] 05/11/2019 3:32 PM Narrative 05/11/2019 3:36 PM PRIMER BOXER IMAGING STUDIES: ??CT ABD+PEL WO CON ? [...] Result * US TESTICULAR (05/10/2019 11:43 AM PRIMER BOXER) Anatomical Region Laterality Modality Pelvis Ultrasound 05/10/2019 11:5 3 AM PRIMER BOXER Impressions 05/10/2019 11:59 AM PRIMER BOXER IMPRESSION: 1. ??Bilateral hydroceles with debris and enlargement of the epididymis suggestive of epididymitis. The small complex hydroceles could indicate early changes that could evolve to a pyocele although at this time there are no evidence of septations to make the diagnosis. Recommend follow-up to monitor response to therapy. Interpreted By: Raj Hendricks, 05/10/2019 11:53 AM Narrative 05/10/2019 11:59 AM PRIMER BOXER IMAGING STUDIES: ??US TESTICULAR ? DATE: ??05/10/2019 10:52 AM COMPARISON STUDIES: No previous exams available CLINICAL HISTORY: Bilateral testicular pain and swelling . ?? . FINDINGS: Real-time ultrasound examination performed by the potato chip sacking machine operator demonstrates: The right testicle measures 4.1 x [...] FINDINGS: Real-time ultrasound examination performed by the potato chip sacking machine operator demonstrates: The right testicle measures 4.1 x [...] (ABNORMAL) COMPREHENSIVE METABOLIC PANEL (05/10/2019 5:35 AM PRIMER BOXER) [facility] Signature GLUCOSE 116(H) 70 - 99 MG/DL 05/10/2019 6:19 AM [facility] BUN 11 7 - 18 MG/DL 05/10/2019 6:19 AM [facility] CREATININE S/P/B 0.94 0.7 - 1.3 MG/DL 05/10/2019 6:19 AM [facility] SODIUM S/P/B 138 136 - 145 MMOL/L 05/10/2019 6:19 AM [facility] POTASSIUM S/P/B 3.7 3.5 - 5.1 MMOL/L 05/10/2019 6:19 AM [facility] CHLORIDE S/P/B 102 100 - 108 MMOL/L 05/10/2019 6:19 AM [facility] CO2 26.2 21 - 32 MMOL/L 05/10/2019 6:19 AM [facility] CALCIUM S/P/B 7.8(L) 8.5 - 10.1 MG/DL 05/10/2019 6:19 AM [facility] BILIRUBIN TOTAL S/P/B 0.4 0.2 - 1.2 MG/DL 05/10/2019 6:19 AM [facility] TOTAL PROTEIN S/P/B 6.4 6.4 - 8.2 G/DL 05/10/2019 6:19 AM [facility] ALBUMIN S/P/B 2.9(L) 3.4 - 5.0 G/DL 05/10/2019 6:19 AM [facility] AST 50(H) 15 - 37 U/L 05/10/2019 6:19 AM [facility] ALT 67(H) 16 - 60 U/L 05/10/2019 6:19 AM [facility] ALKALINE PHOSPHATASE S/P/B 134 50 - 136 U/L 05/10/2019 6:19 AM [facility] ANION GAP 9.8 5 - 15 MMOL/L 05/10/2019 6:19 AM [facility] BUN CREATININE RATIO 11.7 6 - 26 05/10/2019 6:19 AM [facility] A/G RATIO 0.8(L) 1.0 - 2.0 RATIO 05/10/2019 6:19 AM [facility] EGFR NON-AFR. AMER. >90 >90 ML/MIN/1.7 3 M2 05/10/2019 6:19 AM [facility] EGFR AFR. AMER. >90 >90 ML/MIN/1.7 3 M2 05/10/2019 6:19 AM [facility] Comment: NOTE: eGFR is not calculated for patients <18 years of age. This is an estimated GFR (CKD EPI) and should not be used for calculating drug doses. 05/10/2019 5:35 AM PRIMER BOXER us Yessica Dukes MD LABORATORY Final Result [facility] [address] [place] [address], [place] [phone] * (ABNORMAL) CBC W/DIFF AUTOMATED (05/10/2019 5:35 AM PRIMER BOXER) WBC 10.8 4.4 - 11.0 x10'3/uL 05/10/2019 5:56 AM [facility] RBC 3.66(L) 4.50 - 5.90 x10'6/uL 05/10/2019 5:56 AM [facility] HGB 10.7(L) 14.0 - 17.5 G/DL 05/10/2019 5:56 AM [facility] HCT 33.5(L) 41.5 - 50.4 % 05/10/2019 5:56 AM [facility] MCV 91.5 80.0 - 96.0 FL 05/10/2019 5:56 AM [facility] MCH 29.2 26.5 - 31.4 PG 05/10/2019 5:56 AM [facility] MCHC 31.9 31.9 - 34.8 G/DL 05/10/2019 5:56 AM [facility] RDW 12.9 12.3 - 14.3 % 05/10/2019 5:56 AM [facility] PLT 144(L) 151 - 353 x10'3/uL 05/10/2019 5:56 AM [facility] MPV 9.1(L) 9.7 - 11.9 FL 05/10/2019 5:56 AM [facility] SEG NEUTROPHILS 82(H) 42 - 72 % 0 6:49 AM [facility] LYMPHOCYTES 12(L) 15.8 - 45.0 % 05/10/2019 6:49 AM [facility] MONOCYTES 6 5.7 - 12.5 % 05/10/2019 6:49 AM [facility] ABS. NEUTROPHILS TOTAL 8.86(H) 1.40 - 6.00 x10'3/uL 05/10/2019 6:49 AM [facility] ABS. LYMPHOCYTES 1.30 0.80 - 4.70 x10'3/uL 05/10/2019 6:49 AM [facility] PLT MORPH. NORMAL 05/10/2019 6:49 AM [facility] RBC MORPHOLOGY NORMAL 05/10/2019 6:49 AM [facility] WBC MORPHOLOGY NORMAL 05/10/2019 6:49 AM [facility] 05/10/2019 5:35 AM PRIMER BOXER us Yessica Dukes MD LABORATORY Final Result [facility] [address] [place] [address], * ECG 12-Lead (05/09/2019 6:49 PM PRIMER BOXER) 05/09/2019 6:49 PM PRIMER BOXER Narrative [facility] ([facility]) RAD - 05/09/2019 6:53 PM PRIMER BOXER [facility] ? Test Date: ?2019-05-09 Pat Name: ? ROSELINE PEREZ ?Department: ? Room: ? EXAM 505 Gender: ? Male ? Cardiology Clinical Nurse Specialist: ?? CML : ?1970 ? Requested By: TASNEEM DARNELL Order Number: [id number] ? Mackenzie BARRETT: ?? Rg Pierre ? Measurements Intervals ?[place] ? Rate: ? 99 ? P: ?49 AL: ? 174 ?QRS: ?58 QRSD: ? 90 ? T: ?37 QT: ? 319 ? QTc: ?410 ? Interpretive Statements SINUS RHYTHM No previous ECG available for comparison ER BOXER Procedure Note Rg Pierre MD - 05/09/[facility] Test Date: 2019-05-09 Pat Name: ROSELINE PEREZ Department: Room: EXAM 505 Gender: Male Cardiology Clinical Nurse Specialist: CML : 1970 Requested By: TASNEEM DARNELL Order Number: [id number] Mackenzie MD: Rg Pierre Measurements Intervals [place] Rate: 99 P: 49 AL: 174 QRS: 58 QRSD: 90 T: 37 QT: 319 QTc: 410 Interpretive Statements SINUS RHYTHM No previous ECG available for comparison ER BOXER us Tasneem Darnell LATEX THREAD MACHINE OPERATOR-BC ECG ORDERABLES Final Res ult [facility] ([facility]) RAD * XR ABD KUB (05/09/2019 6:11 PM PRIMER BOXER) Anatomical Region Laterality Modality Abdomen Radiographic Cata ging 05/09/2019 6:13 PM PRIMER BOXER Impressions 05/09/2019 6:14 PM PRIMER BOXER FINDINGS IMPRESSION : CHEST: ?? 1. ??The cardiac configuration is normal. Lung bases are clear, within the [id number]. ?? ABDOMEN: 1. ??No free air below [...] 05/09/2019 6:13 PM Narrative 05/09/2019 6:14 PM PRIMER BOXER IMAGING STUDIES: ??XR ABD KUB ? DATE: ??05/09/2019 5:56 PM COMPARISON STUDIES: No previous available. ?? CLINICAL HISTORY: ??Constipation .Additional history. Procedure Note Raj Hendricks MD - 05/09/2019 IMAGING STUDIES: XR ABD KUB DATE: 05/09/2019 5:56 PM COMPARISON STUDIES: No previous available. CLINICAL HISTORY: Constipation .Additional history. FINDINGS IMPRESSION : CHEST: 1. The cardiac configuration is normal. Lung bases are clear, withinthe [id number]. ABDOMEN: 1. No free air below the [...] Raj Hendricks, 05/09/2019 6:13 PM Tasneem Darnell [facility] Final Res ult * CULTURE, BACTERIA, BLOOD (05/09/2019 6:10 PM PRIMER BOXER) SPEC DESCRIPTION BLOOD 05/09/2019 5:45 PM PRIMER BOXER [facility] SPECIAL REQUESTS NO SPECIAL REQUEST 05/09/2019 5:45 PM PRIMER BOXER [facility] CULTURE RESULT NO GROWTH 5 DAYS 05/14/2019 1:42 PM PRIMER BOXER [facility] BLOOD SPECIMEN OBTAINED FOR BLOOD CULTURE / Unknown 05/09/2019 6:10 PM PRIMER BOXER 05/09/2019 6:54 PM PRIMER BOXER Tasneem Darnell [facility] MICROBIOLOGY - GENERAL OR DERABLES Final Result [facility] [address] [place] [address], [place] [phone] [facility] [address] [place] [address], [place] [phone] * (ABNORMAL) Comprehensive metabolic panel (05/09/2019 6:10 PM PRIMER BOXER) GLUCOSE 113(H) 70 - 99 MG/DL 05/09/2019 7:11 PM PRIMER BOXER [facility] BUN 14 7 - 18 MG/DL 05/09/2019 7:11 PM [facility] CREATININE S/P/B 0.96 0.7 - 1.3 MG/DL 05/09/2019 7:11 PM [facility] SODIUM S/P/B 133(L) 136 - 145 MMOL/L 05/09/2019 7:11 PM [facility] POTASSIUM S/P/B 3.8 3.5 - 5.1 MMOL/L 05/09/2019 7:11 PM [facility] CHLORIDE S/P/B 95(L) 100 - 108 MMOL/L 05/09/2019 7:11 PM [facility] CO2 27.8 21 - 32 MMOL/L 05/09/2019 7:11 PM [facility] CALCIUM S/P/B 8.5 8.5 - 10.1 MG/DL 05/09/2019 7:11 PM [facility] BILIRUBIN TOTAL S/P/B 0.6 0.2 - 1.2 MG/DL 05/09/2019 7:11 PM [facility] TOTAL PROTEIN S/P/B 7.8 6.4 - 8.2 G/DL 05/09/2019 7:11 PM [facility] ALBUMIN S/P/B 3.9 3.4 - 5.0 G/DL 05/09/2019 7:11 PM [facility] AST 39(H) 15 - 37 U/L 05/09/2019 7:11 PM [facility] ALT 54 16 - 60 U/L 05/09/2019 7:11 PM [facility] ALKALINE PHOSPHATASE S/P/B 138(H) 50 - 136 U/L 05/09/2019 7:11 PM [facility] ANION GAP 10.2 5 - 15 MMOL/L 05/09/2019 7:11 PM [facility] BUN CREATININE RATIO 14.6 6 - 26 05/09/2019 7:11 PM [facility] A/G RATIO 1.0 1.0 - 2.0 RATIO 05/09/2019 7:11 PM [facility] EGFR NON-AFR. AMER. >90 >90 ML/MIN/1.7 3 M2 05/09/2019 7:11 PM [facility] EGFR AFR. AMER. >90 >90 ML/MIN/1.7 3 M2 05/09/2019 7:11 PM [facility] Comment: NOTE: eGFR is not calculated for patients <18 years of age. This is an estimated GFR (CKD EPI) and should not be used for calculating drug doses. 05/09/2019 6:10 PM [facility] Final Res ult Performing Organization Address City/[facility]/ZIP Co de Phone Number [facility] [address] [place] [address], [place] [phone] * LACTIC ACID (05/09/2019 6:10 PM PRIMER BOXER) LACTIC ACID VENOUS 1.0 0.4 - 2.0 MMOL/L 05/09/2019 7:16 PM [facility] 05/09/2019 6:10 PM [facility] Final Res ult [facility] [address] [place] [address], [place] [phone] * (ABNORMAL) CBC W/DIFF AUTOMATED (05/09/2019 6:10 PM [facility] BOXER) WBC 12.6(H) 4.4 - 11.0 x10'3/uL 05/09/2019 7:20 PM [facility] RBC 4.20(L) 4.50 - 5.90 x10'6/uL 05/09/2019 7:20 PM [facility] HGB 12.4(L) 14.0 - 17.5 G/DL 05/09/2019 7:20 PM [facility] HCT 38.1(L) 41.5 - 50.4 % 05/09/2019 7:20 PM [facility] MCV 90.7 80.0 - 96.0 FL 05/09/2019 7:20 PM [facility] MCH 29.5 26.5 - 31.4 PG 05/09/2019 7:20 PM [facility] MCHC 32.5 31.9 - 34.8 G/DL 05/09/2019 7:20 PM [facility] RDW 12.8 12.3 - 14.3 % 05/09/2019 7:20 PM [facility] PLT 199 151 - 353 x10'3/uL 05/09/2019 7:20 PM [facility] MPV 10.0 9.7 - 11.9 FL 05/09/2019 7:20 PM [facility] RBC MORPHOLOGY NORMAL 05/09/2019 7:20 PM [facility] PLT MORPH. NORMAL 05/09/2019 7:20 PM [facility] WBC MORPHOLOGY NORMAL 05/09/2019 7:20 PM [facility] LYMPHOCYTES % 6.6(L) 15.8 - 45.0 % 05/09/2019 7:20 PM [facility] NEUTROPHILS % 85.0(H) 42.1 - 71.9 % 05/09/2019 7:20 PM [facility] MONOCYTES % 7.2 5.7 - 12.5 % 05/09/2019 7:20 PM [facility] EOSINOPHILS 0.4 0.0 - 5.6 % 05/09/2019 7:20 PM PRIMER BOXER [facility] BASOPHILS 0.2 0.0 - 1.3 % 05/09/2019 7:20 PM [facility] ABS. NEUTROPHILS TOTAL 10.68(H) 1.40 - 6.00 x10'3/uL 05/09/2019 7:20 PM PRIMER BOXER [facility] IMMATURE GRANS % 0.6(H) 0.0 - 0.5 % 05/09/2019 7:20 PM [facility] ABS. LYMPHOCYTES 0.83 0.80 - 4.70 x10'3/uL 05/09/2019 7:20 PM [facility] 05/09/2019 6:10 PM PRIMER BOXER Tasneem Darnell [facility] Final Res ult [facility] [address] [place] [address], [place] [phone] * CULTURE, BACTERIA, BLOOD (05/09/2019 6:00 PM PRIMER BOXER) SPEC DESCRIPTION BLOOD 05/09/2019 5:45 PM PRIMER BOXER [facility] SPECIAL REQUESTS NO SPECIAL REQUEST 05/09/2019 5:45 PM PRIMER BOXER [facility] CULTURE RESULT NO GROWTH 5 DAYS 05/14/2019 1:42 PM PRIMER BOXER [facility] BLOOD SPECIMEN OBTAINED FOR BLOOD CULTURE / Unknown 05/09/2019 6:00 PM PRIMER BOXER 05/09/2019 6:53 PM PRIMER BOXER Tasneem Darnell [facility] MICROBIOLOGY - GENERAL OR DERABLES Final Result [facility] [address] [place] [address], [place] [phone] [facility] [address] [place] [address], [place] [phone] * URINALYSIS MICRO ONLY (05/09/2019 5:58 PM PRIMER BOXER) WBC/HPF 25-50 0 - 5 /HPF 05/09/2019 6:10 PM PRIMER BOXER [facility] RBC/HPF NONE SEEN 0 - 5 /HPF 05/09/2019 6:10 PM PRIMER BOXER [facility] EPI/HPF RARE /HPF 05/09/2019 6:10 PM PRIMER BOXER [facility] BACTERIA (U) RARE /HPF 05/09/2019 6:10 PM PRIMER BOXER [facility] 05/09/2019 5:58 PM PRIMER BOXER Tasneem Adams Darnell LATEX THREAD MACHINE OPERATOR-BC URINE ORDERABLES Final Re sult [facility] [address] [place] [address], [place] [phone] * (ABNORMAL) URINALYSIS (05/09/2019 5:58 PM PRIMER BOXER) COLOR (U) YELLOW 05/09/2019 6:10 PM PRIMER BOXER [facility] TRANSPARENCY HAZY 05/09/2019 6:10 PM PRIMER BOXER [facility] SPECIFIC GRAVITY (U) 1.020 1.000 - 1.030 05/09/2019 6:10 PM [facility] U PH 6.0 5.0 - 9.0 05/09/2019 6:10 PM PRIMER BOXER [facility] LEUKOCYTES (U) 1+(A) NEGATIVE 05/09/2019 6:10 PM [facility] NITRITES POSITIVE(A) NEGATIVE 05/09/2019 6:10 PM PRIMER BOXER [facility] PROTEIN (U) 1+(A) NEGATIVE 05/09/2019 6:10 PM [facility] URINE GLUCOSE NEGATIVE NEGATIVE 05/09/2019 6:10 PM PRIMER BOXER [facility] KETONES MG/DL (U) NEGATIVE NEGATIVE 05/09/2019 6:10 PM [facility] BILIRUBIN (U) NEGATIVE NEGATIVE 05/09/2019 6:10 PM PRIMER BOXER [facility] BLOOD (U) NEGATIVE NEGATIVE 05/09/2019 6:10 PM [facility] CULTURE & SENSITIVITY INDICATED? SPECIMEN SETUP FOR CULTURE 05/09/2019 6:10 PM PRIMER BOXER [facility] URINE SPECIMEN OBTAINED BY CLEAN CATCH PROCEDURE / Unknown 05/09/2019 5:58 PM PRIMER BOXER us Tasneem Darnell LATEX THREAD MACHINE OPERATOR-BC URINE ORDERABLES Final Re sult [facility] [address] [place] [address], * (ABNORMAL) CULTURE URINE (05/09/2019 5:57 PM PRIMER BOXER) SPEC DESCRIPTION URINE CLEAN CATCH 05/09/2019 5:52 PM PRIMER BOXER [facility] SPECIAL REQUESTS NO SPECIAL REQUEST 05/09/2019 5:52 PM PRIMER BOXER [facility] CULTURE RESULT 10,000-49,000 COL/ML KLEBSIELLA PNEUMONIAE (A) 05/11/2019 10:46 PM PRIMER BOXER [facility] URINE SPECIMEN OBTAINED BY CLEAN CATCH PROCEDURE / Unknown 05/09/2019 5:57 PM PRIMER BOXER 05/09/2019 5:58 PM PRIMER BOXER Narrative Organism Antibiotic Method Susceptibility Klebsiella pneumoniae [...] SHARON (VITEK) <=20: Sensitive Tasneem Adams Darnell LATEX THREAD MACHINE OPERATOR- MICROBIOLOGY - GENERAL OR DERABLES Final Result Performing Organization Address City/State/[facility] Co de Phone Number [facility] [address] [place] [address], [place] [phone] [facility] [address] [place] [address], [place] [phone] documented in this encounter Visit Diagnoses Diagnosis Sepsis ([facility])- Primary Urinary tract infection Urinary tract infection, site not specified Epididymitis Orchitis and epididymitis, unspecified Sepsis without acute organ dysfunction, due to unspecified organism ([facility]) Urinary tract infection Urinary tract infection, [...] in 24 hours. Given 05/09/2019 6:27 PM PRIMER BOXER 1,000 mg acetaminophen (TYLENOL) tablet 650 mg 650 mg, Oral, Every 4 hours PRN, Fever, Starting on 05/09/19 at 2332, Until 05/15/19 at 1438, For temperature greater than 38.6 C (101.5 F) Given 05/15/2019 10:37 AM PRIMER BOXER 650 mg Given 05/13/2019 8:08 AM PRIMER BOXER 650 mg Given 05/12/2019 12:03 PM PRIMER BOXER 650 mg carBAMazepine XR (TEGRETOL XR) 12 hr tablet 1,000 mg 1,000 mg, Oral, 2 times daily, First dose (after last modification) on Fri05/10/19 at 0100, Until Discontinued, Give with food. Do not break, chew, or crush. HAZARDOUS MEDICATION Given 05/10/2019 1:07 AM PRIMER BOXER 1,000 mg carBAMazepine XR (TEGRETOL XR) 12 hr tablet 1,000 mg 1,000 mg, Oral, Nightly at bedtime, First dose on Fri05/11/19 at 2100, Until Discontinued, Give with food. Do not break, chew, or crush. HAZARDOUS MEDICATION Given 05/14/2019 8:40 PM PRIMER BOXER 1,000 m g Given 05/13/2019 8:59 PM PRIMER BOXER 1,000 mg Given 05/12/2019 8:36 PM PRIMER BOXER 1,000 mg carBAMazepine XR (TEGRETOL XR) 12 hr tablet 500 mg 500 mg, Oral, Once, 1 dose, On Fri05/11/19 at 0930, Give with food. Do not break, chew, or crush. HAZARDOUS MEDICATION Given 05/11/2019 9:19 AM PRIMER BOXER 500 mg ceFAZolin (ANCEF) 2 g in sterile water 20 mL IV 2 g, Intravenous, at 240 mL/hr, Every 8 hours, First dose on Fri05/13/19 at 1600, Until Discontinued Given 05/13/2019 3:37 PM PRIMER BOXER 2 g 240 mL/hr cefTRIAXone (ROCEPHIN) 2 g in sterile water 20 mL IV 2 g, Intravenous, at 240 mL/hr, Once, 1 dose, On Fri05/09/19 at 1830 Given 05/09/2019 6:34 PM PRIMER BOXER 2 g 240 mL/hr Right Arm cyclobenzaprine (FLEXERIL) tablet 10 mg 10 mg, Oral, Nightly at bedtime, First dose on Fri05/10/19 at 0000, Until Discontinued Given 05/14/2019 8:40 PM PRIMER BOXER 10 mg Given 05/13/2019 8:59 PM PRIMER BOXER 10 mg Given 05/12/2019 8:38 PM PRIMER BOXER 10 mg diphenhydrAMINE (BENADRYL) injection 50 mg 50 mg, Intravenous, Once, 1 dose, On Fri05/13/19 at 1500, For IV administration, give no faster than 25 mg/min. Given 05/13/2019 2:50 PM PRIMER BOXER 50 mg diphenhydrAMINE (BENADRYL) injection 50 mg 50 mg, Intravenous, Once, 1 dose, On Fri05/14/19 at 0930, For IV administration, give no faster than 25 mg/min. Given 05/14/2019 9:22 AM PRIMER BOXER 50 mg enoxaparin (LOVENOX) 40 MG/0.4ML syringe 40 mg 40 mg, Subcutaneous, Every 24 hours, First dose on Fri05/10/19 at 0900, Until Discontinued, Administer by deep SubQ injection alternating between the left or right anterolateral and left or right posterolateral abdominal wall. Given 05/15/2019 9:20 AM PRIMER BOXER 40 mg Right Lower Abdomen Given 05/14/2019 9:13 AM PRIMER BOXER 40 mg Ri ght Lower Abdomen Given 05/13/2019 8:34 AM PRIMER BOXER 40 mg Le ft Lower Abdomen fentaNYL (SUBLIMAZE) 100 MCG/2ML injection 1 dose, Starting on Fri05/09/19 at 2331, Until Fri05/10/19 at 2335, Created by cabinet override Given 05/10/2019 11:35 PM PRIMER BOXER hydrocodone-acetaminophen (NORCO) 7.5-325 MG tablet 1 tablet 1 tablet, Oral, Every 6 hours PRN, Moderate pain (Scale 4 - 7), Starting on Fri05/11/19 at 0926, Until Alyssa 05/13/19 at 1238, Maximum dose of acetaminophen is 4000 mg from all sources in 24 hours. Given 05/12/2019 8:37 PM PRIMER BOXER 1 tabl et Given 05/12/2019 5:18 AM PRIMER BOXER 1 tablet hydrocodone-acetaminophen (NORCO) 7.5-325 MG tablet [...] 05/13/19 at 1238 Given 05/12/2019 7:12 PM PRIMER BOXER 400 mg Given 05/12/2019 8:06 AM PRIMER BOXER 400 mg Given 05/11/2019 9:10 PM PRIMER BOXER 400 mg ibuprofen (MOTRIN) tablet 400 mg 400 mg, Oral, Every 6 hours PRN, Headaches, Fever, Discomfort, Starting on Alyssa 05/13/19 at 1238, Until 05/15/19 at 1438 Given 05/13/2019 12:56 PM PRIMER BOXER 400 mg ketorolac (TORADOL) injection 30 mg 30 mg, Intravenous, Once, 1 dose, On [place] 05/09/19 at 2115, For IV administration, give over 15 seconds. Given 05/09/2019 9:32 PM PRIMER BOXER 30 mg ketorolac (TORADOL) tablet 10 mg 10 mg, Oral, Every 6 hours PRN, Moderate pain (Scale 4 - 7), Starting on Fri05/10/19 at 0428, Until Fri05/11/19 at 0926 Given 05/11/2019 12:56 AM PRIMER BOXER 10 mg Given 05/10/2019 6:39 PM PRIMER BOXER 10 mg Given 05/10/2019 11:56 AM PRIMER BOXER 10 mg levofloxacin (LEVAQUIN) IVPB 500 mg 500 mg, Intravenous, at 100 mL/hr, Every 24 hours, First dose on Alyssa 05/13/19 at 1630, Until Discontinued New Bag 05/14/2019 8:44 PM PRIMER BOXER 500 mg 100 mL/hr New Bag 05/13/2019 9:00 PM PRIMER BOXER 500 mg 100 mL/hr levofloxacin (LEVAQUIN) IVPB 750 mg 750 mg, Intravenous, at 100 mL/hr, Once, 1 dose, On [place] 05/09/19 at 1830 New Bag 05/09/2019 6:34 PM PRIMER BOXER 750 m g 100 mL/hr levofloxacin (LEVAQUIN) IVPB 750 mg 750 mg, Intravenous, at 100 mL/hr, Every 24 hours, First dose on Fri05/10/19 at 1830, Until Discontinued New Bag 05/10/2019 6:29 PM PRIMER BOXER 750 mg 100 mL/hr metoclopramide (REGLAN) injection 10 mg 10 mg, Intravenous, Once, 1 dose, On [place] 05/13/19 at 1500, Administer IV over 1-2 minutes Given 05/13/2019 2:50 PM PRIMER BOXER 10 mg metoclopramide (REGLAN) injection 10 mg 10 mg, Intravenous, Once, 1 dose, On Fri05/14/19 at 0930 Given 05/14/2019 9:22 AM PRIMER BOXER 10 mg ondansetron (ZOFRAN) injection 4 mg 4 mg, Intravenous, Once, 1 dose, On Fri05/09/19 at 1800, IV push over 2-5 minutes. Given 05/09/2019 6:27 PM PRIMER BOXER 4 mg pantoprazole EC (PROTONIX) tablet 40 mg 40 mg, Oral, Daily, First dose on Fri05/10/19 at 0900, Until Discontinued, Do not break, chew, or crush. Given 05/15/2019 9:21 AM PRIMER BOXER 40 mg Given 05/14/2019 9:13 AM PRIMER BOXER 40 mg Given 05/13/2019 8:35 AM PRIMER BOXER 40 mg piperacillin-tazobactam (ZOSYN) 3.375 g in sodium chloride 0.9 % 50 mL IVPB 3.375 g, Intravenous, Administer over 30 Minutes, Once, 1 dose, On Fri05/11/19 at 1000, Administer over 30 minutes. New Bag 05/11/2019 9:43 AM PRIMER BOXER 3.375 g 100 mL/hr piperacillin-tazobactam (ZOSYN) 3.375 g in sodium chloride 0.9 % 50 mL IVPB 3.375 g, Intravenous, Administer over 240 Minutes, Every 8 hours, First dose on Fri05/11/19 at 1600, Until Discontinued, Administer over 4 hours (extended infusion). New Bag 05/13/2019 8:35 AM PRIMER BOXER 3.375 g 12.5 mL/hr New Bag 05/12/2019 4:35 PM PRIMER BOXER 3.375 g 12.5 mL/hr New Bag 05/12/2019 8:06 AM PRIMER BOXER 3.375 g 12.5 mL/hr psyllium (METAMUCIL) 28 % packet 1 packet 1 packet, Oral, 3 times daily, First dose on Fri05/11/19 at 1000, Until Discontinued, Mix dose in 240 mL water or juice Given 05/11/2019 9:34 AM PRIMER BOXER 1 packet psyllium (METAMUCIL) 28 % packet 1 packet 1 packet, Oral, Daily, First dose (after last modification) on Fri05/12/19 at 0900, Until Discontinued, Mix dose in 240 mL water or juice Given 05/15/2019 9:21 AM PRIMER BOXER 1 packet Given 05/14/2019 9:13 AM PRIMER BOXER 1 packet Given 05/13/2019 8:34 AM PRIMER BOXER 1 packet senna-docusate (SENOKOT-S) 8.6-50 MG tablet 1 tablet 1 tablet, Oral, Nightly at bedtime, First dose on Fri05/11/19 at 2100, Until Discontinued Given 05/14/2019 8:40 PM PRIMER BOXER 1 tablet Given 05/13/2019 9:00 PM PRIMER BOXER 1 tablet Given 05/12/2019 8:37 PM PRIMER BOXER 1 tablet sodium chloride 0.9% bolus infusion SOLN 1,000 mL 1,000 mL, Intravenous, Administer over 15 Minutes, Once, 1 dose, On Fri05/09/19 at 1800 New Bag 05/09/2019 6:25 PM PRIMER BOXER 1,000 mLs 999 mL/hr sodium chloride 0.9% bolus infusion SOLN 1,000 mL 1,000 mL, Intravenous, Administer over 15 Minutes, Bolus (Once), 1 dose, On Fri05/09/19 at 2000 New 05/09/2019 8:07 PM PRIMER BOXER 1,000 mLs sodium chloride 0.9% infusion at 125 mL/hr, Intravenous, Continuous, Starting on Fri05/10/19 at 0000, Until 05/15/19 at 1438 New Bag 05/15/2019 6:21 AM PRIMER BOXER 1 mL 125 mL/hr Rate/Dose Verify 05/15/2019 6:20 AM PRIMER BOXER 125 mL/ hr New Bag 05/14/2019 8:37 PM PRIMER BOXER 125 mL/hr documented in this encounter Active and Recently Administered Medications Times are shown in PRIMER BOXER. Scheduled Medication Order 05/13/2019 05/14/2019 05/15/2019 carBAMazepine [...] 1-2 minutes 1450 (Given - Provider: Jaqueline Carter RN) metoclopramide (REGLAN) injection 10 mg (COMPLETED) [...] (COMPLETED) documented in this encounter Care Teams Rn Renal Relationship Specialty Start Date End Date Jose Champagne MD [address] [id number] PCP - General INTERNAL MEDICINE 05/09/19 documented as of this encounter
--- OUTSIDE RECORDS SUMMARY | 2024-03-26 21:18 | XMS_ITS | Encounter Summary ---
Author Organization [facility] Address [address] [place] [address]. [place], [place] [address] [place] [address] Care Team Providers Care Diesel Machinist Name Role Phone Unavailable Primary Care Provider Unavailabl e Encounter Details Date Type Department Care Team (Latest Contact Info) Description 10/18/2012 Abstract [facility] Nahomy Sanchez, FUAD [address] [place] [address] Social History Tobacco Use Types Packs/Day Years Used Date Smoking Tobacco: Never Assessed Sex and Gender Information Value Date Recorded Sex Assigned at Male 05/10/2019 1:27 AM MICROFABRICATION ENGINEER MANAGER Legal Sex Male 7:38 PM CDT Gender Identity Male 05/10/2019 1:27 AM MICROFABRICATION ENGINEER MANAGER Sexual Orientation Not on file documented [...] Oral Tablet Extended Release 12 Hour; Therapy: [id number] to Recorded; Dispense: 30 Days ; #:150 TB12; Refill: 0; Record; Last Updated By: Ernestina Siddiqi Allergies 1. Sulfa Drugs Vitals Signs [Data Includes: Current Encounter] [id number] 11:02AM Temperature: 97.9 F Heart Rate: 77 [...] Sanchez NP; Oct 18 2012 12:05PM (Author) OFABRICATION ENGINEER MANAGER documented in this encounter Plan of Treatment Not on file documented as of this encounter Visit Diagnoses Not on filedocumented in this encounter
--- OUTSIDE RECORDS SUMMARY | 2024-03-26 21:18 | XMS_ITS | Encounter Summary ---
Author Organization [facility] Address [address] [place] [address]. [place], [place] [address] [place] [address] Care Team Providers Care Molasses And Caramel Operator Name Role Phone Unavailable Primary Care Provider Unavailabl e Encounter Details Date Type Department Care Team (Late st Contact Info) Description 08/11/[address] [facility] Emergency Room [address] [place] [address] Jacque Willis FNP [address] [place] [address] Social History Tobacco Use Types Packs/Day Years Used Date Smoking Tobacco: Never Assessed Sex and Gender Information Value Date Recorded Sex Assigned at Male 05/10/2019 1:27 AM BUILDING MECHANIC Legal Sex Male 7:38 PM CDT Gender Identity Male 05/10/2019 1:27 AM BUILDING MECHANIC Sexual Orientation Not on file documented as of this encounter Plan of Treatment Not on file documented as of this encounter Visit Diagnoses Diagnosis Cystitis without hematuria Cystitis, unspecified documented in this encounter
--- OUTSIDE RECORDS SUMMARY | 2024-03-26 21:18 | XMS_ITS | Encounter Summary ---
Author Organization [facility] Address [address] [place] [address]. [place] [address] Care Team Providers Care Bean Sprout Grower Name Role Phone Unavailable Primary Care Provider Unavailabl e Encounter Details Date Type Department Care Team (Latest Contact Info) Description 10/20/2012 Abstract [facility] Social History Tobacco Use Types Packs/Day Years Used Date Smoking Tobacco: Never Assessed Sex and Gender Information Value Date Recorded Sex Assigned at Male 05/10/2019 1:27 AM TIRE BUSTER Legal Sex Male 7:38 PM CDT Gender Identity Male 05/10/2019 1:27 AM TIRE BUSTER Sexual Orientation Not on file documented as of this encounter Plan of Treatment Not on file documented as of this encounter Visit Diagnoses Not on filedocumented in this encounter
--- OUTSIDE RECORDS SUMMARY | 2024-03-26 21:18 | XMS_ITS | Encounter Summary ---
Author Organization [facility] Address [address] [place] [address]. [place], [place] [address] [place] [address] Care Team Providers Care Citrus Fruit Packer Name Role Phone Unavailable Primary Care Provider Unavailabl e Encounter Details Date Type Department Care Team (Late st Contact Info) Description 07/25/2018 Abstract [facility] Emergency Room [id number] [place] [address] Mohamud Peña MD [address] [place] [address] Social History Tobacco Use Types Packs/Day Years Used Date Smoking Tobacco: Never Assessed Sex and Gender Information Value Date Recorded Sex Assigned at Male 05/10/2019 1:27 AM CAR MECHANIC Legal Sex Male 7:38 PM CDT Gender Identity Male 05/10/2019 1:27 AM CAR MECHANIC Sexual Orientation Not on file documented as of this encounter Plan of Treatment Not on file documented as of this encounter Procedures Procedure Name Priority Date/Time Associated Diagnosis Comments CULTURE, WOUND, W/GRAM STAIN Routine 07/25/2018 3:50 PM CDT documented in this encounter Results * CULTURE, WOUND, W/GRAM STAIN (07/25/2018 3:50 PM CDT) SPEC DESCRIPTION SKIN 07/25/2018 3:50 PM CDT [facility] () [facility] SPECIAL REQUESTS NO SPECIAL REQUEST 07/25/2018 3:50 PM CDT [facility] GRAM STAIN RESULT NO WHITE BLOOD CELLS SEEN 07/27/2018 9:56 AM CDT [facility] GRAM STAIN RESULT NO ORGANISMS SEEN 07/27/2018 9:56 AM CDT [facility] CULTURE RESULT NO GROWTH 3 DAYS 07/29/2018 10:57 AM CDT [facility] CULTURE RESULT NOTE: WOUND AND TISSUE CULTURES ARE ROUTINELY SCREENED FOR AEROBIC ORGANISMS ONLY. 07/29/2018 10:57 AM CDT [facility] SKIN SWAB / Unknown 07/25/2018 3:50 PM CDT 07/25/2018 4:23 PM CDT Comment:RIGHT ANTERIOR LEG us Generic Conversion Md [facility]RETT MICROBIOLOGY - GENERAL ORDERABLES Final Result Performing Organization Address City/State/[facility] Co de Phone Number [facility] [address] [place] [address], [place] [phone] [facility] [address] [place] [address], [place] [phone] documented in this encounter Visit Diagnoses Diagnosis Cellulitis of right lower extremity Cellulitis and abscess of leg, except foot documented in this encounter
--- OUTSIDE RECORDS SUMMARY | 2024-03-26 21:18 | XMS_ITS | Encounter Summary ---
Author Organization [facility] Address [address] [place] [address]. [place], [place] [address] [place] [address] Care Team Providers Care Entry Specialist Name Role Phone Unavailable Primary Care Provider Unavailabl e Encounter Details Date Type Department Care Team (Late st Contact Info) Description 11/26/2010 Abstract [facility] [address] [place] [address] Social History Tobacco Use Types Packs/Day Years Used Date Smoking Tobacco: Never Assessed Sex and Gender Information Value Date Recorded Sex Assigned at Male 05/10/2019 1:27 AM DICTIONARY EDITOR Legal Sex Male 7:38 PM CDT Gender Identity Male 05/10/2019 1:27 AM DICTIONARY EDITOR Sexual Orientation Not on file documented as of this encounter Plan of Treatment Not on file documented as of this encounter Visit Diagnoses Diagnosis Degeneration of lumbar or lumbosacral intervertebral disc documented in this encounter
--- OUTSIDE RECORDS SUMMARY | 2024-03-26 21:18 | XMS_ITS | Encounter Summary ---
Author Organization [facility] Address [address] [place] [address]. [place] [address] Care Team Providers Care Partition Setter Name Role Phone Unavailable Primary Care Provider Unavailabl e Encounter Details Date Type Department Care Team (Latest Contact Info) Description 12/10/2012 Abstract [facility] Medical [facility] Social History Tobacco Use Types Packs/Day Years Used Date Smoking Tobacco: Never Assessed Sex and Gender Information Value Date Recorded Sex Assigned at Male 05/10/2019 1:27 AM AIR CREW MEMBER Legal Sex Male 7:38 PM CDT Gender Identity Male 05/10/2019 1:27 AM AIR CREW MEMBER Sexual Orientation Not on file documented as of this encounter Plan of Treatment Not on file documented as of this encounter Visit Diagnoses Not on filedocumented in this encounter
--- OUTSIDE RECORDS SUMMARY | 2024-03-26 21:30 | XMS_ITS | Encounter Summary ---
Author Organization [facility] Healthcare Address [address] [place] [address] Care Team Providers Care Well Service Pump Equipment Operator Name Role Phone Jose Mo MD Primary Care Provider [phone] Jose Mo MD Unavailable [phone] Encounter Details Date Type Department Care Team (Late st Contact Info) Description 03/16/2024 Telephone Radiology [address] [place] [address] Yaneth Navarrete, RT Social History Tobacco Use Types Packs/Day Years Used Date Smoking Tobacco: Former Cigarettes 2018 Smokeless Tobacco: Never Alcohol Use Standard Drinks/Week Comments Not Currently 0 (1 standard drink = 0.6 oz pur e alcohol) AUDIT-C Answer Date Recorded Q1: How often do you have a drink containing alc ohol? Monthly or less 05/25/2021 Q2: How many drinks containi ng alcohol do you have on a typical day when you are drinking? 7 to 9 05/25/2021 Q3: How often do you have si x or more drinks on one occasion? Less than monthly 05/25/2021 PHQ-2 Answer Date Recorded PHQ-2 Total Score (If total score is 3 or more points, staff should administer the PHQ-9) 0 01/28/2023 Sex and Gender Information Value Date Recorded Sex Assigned at Not on file 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LABOR GANG Gender Identity Male 04/18/2020 9:24 AM SUPERVISOR LABOR GANG Sexual Orientation Straight 04/18/2020 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 LABOR GANG documented as of this encounter Miscellaneous Notes * Telephone Encounter - Yaneth Navarrete, RT - 03/17/2024 1:52 PM SUPERVISOR LABOR GANG Message sent to Celina about CT biopsy. Patient is scheduled for 03/30 at 1pm. Not on blood thinners, will get updated labs per protocol. US or CT PRE-BIOPSY INSTRUCTIONS [facility] ~Please provide to patient at time of scheduling~ Patient will need to arrive 1.5 hours prior to appointment time. Report to the [facility] (#[facility]). Park in the [facility], walk over in the walkway and report to Outpatient Admitting &Registration (right side of the lobby). Patient will need to have 'nothing by mouth' (NPO) 6 hours prior to procedure time. MEDICATIONS Pt may take medications as prescribed with the exception of: ANTICOAGULANTS (Blood thinner medications-includes aspirin 325mg): REFERRING OFFICE is responsible for contacting prescriber and ensuring that recommended hold is appropriate. Nurse Coordinators for Biopsy section will forward an ANTICOAGULANT CLEARANCE form to referring office for completion. Referring office to return completed form to Radiology Fax to [phone] (Attn: Alex).BIOPSY WILL NOT BE SCHEDULED UNTIL FORM IS RETURNED, SIGNED. ANTIHYPERGLYCEMICS (Blood sugar medications): 1) Pt should contact prescriber of the diabetic medication(s) to ask how they should be taken whilept is NPO. Pt will have no food or water for about 10 hours. 2) Schedule should also include when/how antihyperglycemic medication is to be restarted after biopsy. Pt should: Have had a CBC, PT/INR (PTT is ONLY if patient is on Heparin) completed within the 30 days prior tothe procedure date, and results either in EPIC or faxed to [phone] Attn: Alex If pt has to hold an anticoagulant, please have them get PT/INR and (and PTT ONLY if patient is on Heparin) drawn after they have held the medication (otherwise we may get false highs). Pack a small overnight bag (in case observation/admission is needed). Patients should have a responsible individual identified as the person who will serve as the patient's die attacher at the time of discharge. If a responsible individual is not identified prior to the start of the procedure, the procedure may be cancelled unless alternative arrangements can be made. Expect to be here for at least 4 hours from time of arrival to end of recovery period. (EXCEPTION: ALL KIDNEY and SPLEEN biopsies will require overnight stay for 23 hour observation, post-procedure). Rev. 8.7.24SW RVISOR LABOR GANG * Telephone Encounter - Angus Nunez MD PhD - 03/16/2024 1:33 PM SUPERVISOR LABOR GANG Images from the original note were not included. Abdominal Biopsy Planning Note Planned target / indication: Mesenteric mass Planned sampling method: Core Service to perform: Deep abdominal biopsy service Anticipated imaging modality for guidance: Please have performing radiologist specify preferred modality Anticipated monitored recovery (final disposition determined at biopsy completion): Routine outpatient: (1- 2 hours) prior to discharge. Special instructions: Would recommend sending samples for pathology and flow cytometry. Rodriguez image(s), if relevant: Confirmation of scheduling, a dedicated screening review of procedural risk factors and specific pre-procedural instructions will be documented separately. RVISOR LABOR GANG * Telephone Encounter - Yaneth Navarrete RT - 03/16/2024 11:01 AM SUPERVISOR LABOR GANG Biopsy request- Dr. Mo Mass in terminal iieum noted on order- confirmed that ok with anything that can be safely biopsied PET from 03/12 No cancer history Not on blood thinners RVISOR LABOR GANG documented in this encounter Plan of Treatment Not on file documented as of this encounter Visit Diagnoses Not on filedocumented in this encounter Care Teams Well Service Pump Equipment Operator Relationship Specialty Start Date End Date Jose Mo MD [address] [address] PCP - General 08/22/18 Jose Mo MD [address] [facility] [address], [place] [address] 08/22/18 documented as of this encounter
--- OUTSIDE RECORDS SUMMARY | 2024-03-26 21:30 | XMS_ITS | Encounter Summary ---
Author Organization [facility] Address [address] [place] [address] Care Team Providers Care Scrap Preparation Supervisor Name Role Phone Jose Mo MD Primary Care Provider [phone] Jose Mo MD Unavailable [phone] Encounter Details Date Type Department Care Team (Late st Contact Info) Description 02/04/2024 Orders Only [facility] [address] [facility] [address] [facility] [place] [address] Celina Quintero, [place] [address] [place] [address] Chronic left shoulder pain (Primary Dx) Social History Tobacco Use Types Packs/Day Years [...] on file Legal Sex Male 6:24 PM TOE POUNDER Gender Identity Male 04/18/2020 9:24 AM TOE POUNDER Sexual Orientation Straight 04/18/2020 9: 24 AM TOE POUNDER documented as of this encounter Plan of Treatment Not on file documented as of this encounter Visit Diagnoses Diagnosis Chronic left shoulder pain- Primary Pain in joint, shoulder region documented in this encounter Care Teams Scrap Preparation Supervisor Relationship Specialty Start Date End Date Jose Mo MD [address] [address] [address] PCP - General 08/22/18 Jose Mo MD [address] [address] 08/22/18 documented as of this encounter
--- OUTSIDE RECORDS SUMMARY | 2024-03-26 21:30 | XMS_ITS | Encounter Summary ---
Author Organization [facility] Address [address] [place] [address] Care Team Providers Care Welding Machine Operator Electron Beam Name Role Phone Jose Mo MD Primary Care Provider Jose Mo MD Unavailable Encounter Details Date Type Department Care Team (Late st Contact Info) Description 03/01/2024 Orders Only [facility] [address] [facility] [address] [place] [address] Jose Mo MD [address] [facility] [address] [place] [address] Social History Tobacco Use Types Packs/Day Years [...] on file Legal Sex Male 6:24 PM RESOURCE RECOVERY ENGINEER Gender Identity Male 04/18/2020 9:24 AM RESOURCE RECOVERY ENGINEER Sexual Orientation Straight 04/18/2020 9: 24 AM RESOURCE RECOVERY ENGINEER documented as of this encounter Plan of Treatment Not on file documented as of this encounter Procedures Procedure Name Priority Date/Time Associated Diagnosis Comments SCAN - LABS 03/01/2024 11:55 AM RESOURCE RECOVERY ENGINEER documented in this encounter Results * SCAN - LABS (03/01/2024 11:55 AM RESOURCE RECOVERY ENGINEER) us Jose Mo MD Final Result documented in this encounter Visit Diagnoses Not on filedocumented in this encounter Care Teams Welding Machine Operator Electron Beam Relationship Specialty Start Date End Date Jose Mo MD [address] [facility] [address] [address] PCP - General 08/22/18 Jose Mo MD [address] [facility] [facility] [address] [place] [address] 08/22/18 documented as of this encounter
--- OUTSIDE RECORDS SUMMARY | 2024-03-26 21:30 | XMS_ITS | Encounter Summary ---
Author Organization [facility] Healthcare Address [address] [place] [address] Care Team Providers Care Retail Store Assistant Name Role Phone Jose Mo MD Primary Care Provider [phone] Jsoe Mo MD Unavailable [phone] Reason for Referral * MRI/CAT/PET Scan (Routine) - Closed Specialty Diagnoses / Procedures Referred By Barbara goldman Referred To Contact Radiology Diagnoses Personal history of nicotine dependence Procedures CT Lung Cancer Screening Jose Mo MD [address] [address] Phone: tel: fax: [address] [address] Referral ID Status Reason Start Date Expiration Date Visits Re quested Visits Authorized [id number] Closed 01/30/2024 02/28/2025 1 1 E RUNNER Reason for Visit * MRI/CAT/PET Scan (Routine) - Closed Specialty Diagnoses / Procedures Referred By Contac t Referred To Contact Radiology Diagnoses Personal history of nicotine dependence Procedures CT Lung Cancer Screening Jose Mo MD [address] [address] Phone: tel: fax: [facility] [address] [facility] [place] [address] Referral ID Status Reason Start Date Expiration Date Visits Re quested Visits Authorized [id number] Closed 01/30/2024 02/28/2025 1 1 Encounter Details Date Type Department Care Team (Latest Contact Info) Description 02/10/2024 1:05 [address] RUNNER - 02/10/2024 11:[address]NER Hospital Encounter [facility] [address] [place] [address] Jose Mo MD [address] [facility] [address] [place] [address] Personal history of nicotine dependence Discharge Disposition: Discharge to home or self care Social History Tobacco Use Types Packs/Day Years Used Date Smoking Tobacco: Former Cigarettes 1 2018 Smokeless Tobacco: Never Alcohol Use Standard [...] on file Legal Sex Male 6:[address] RUNNER Gender Identity Male 04/18/2020 9:[address] RUNNER Sexual Orientation Straight 04/18/2020 9: [address] RUNNER documented as of this encounter Medications at Time of Discharge ascorbic acid (VITAMIN C) 1,000 mg tablet Take 4 tablets (4,000 mg total) by mouth daily 06/19/2018 bisacodyl (DULCOLAX) 10 mg suppositoryIndi cations:constip ation Insert 1 suppository (10 mg total) into the rectum daily as needed for constipation (2nd line) 12 suppository 06/18/2018 carBAMazepine XR (TEGretol XR) 200 mg 12 hr tablet TAKE 1 TABLET BY MOUTH FIVE TIMES DAILY DIRECTED 450 tablet 2 11/25/2023 cyclobenzaprine (FLEXERIL) 10 mg tablet Take 1 tablet (10 mg total) by mouth 3 (three) times a day as needed for muscle spasms for muscle spasms 30 tablet 1 01/31/2022 d-mannose powder Take by mouth diphenhydrAMINE (BENADRYL) 25 mg capsuleIndicati ons:Urticaria Take 1 tablet/capsule (25 mg total) by mouth every 6 (six) hours as needed for itching 30 capsule 06/18/[address] (NexIUM) 40 mg capsuleIndicati ons:Treatment of Non-Bleeding Gastric Disorder Take 1 capsule (40 mg total) by mouth daily before breakfast 04/27/2019 fosfomycin (MONUROL) 3 gram packetIndicatio ns:Urinary Tract/Genitouri nary Infection Take 3 g by mouth as needed (take one dose and repeat a dose in 72 hours as needed for UTI) 10 packet 3 09/09/2023 furosemide (LASIX) 20 mg tablet TAKE 1 TABLET(20 MG) BY MOUTH DAILY 90 tablet 3 08/27/2023 hydrocortisone 2.5 % cream APPLY TOPICALLY TO THE AFFECTED AREA ONCE DAILY NEEDED FOR RASH 30 g 1 03/25/2023 ibuprofen (ADVIL,MOTRIN) 800 mg tabletIndicatio ns:Anti-inflamm atory Take 1 tablet (800 mg total) by mouth every 6 (six) hours as needed for pain methenamine (HIPREX) 1 gram tablet TAKE 1 TABLET(1 GRAM) BY MOUTH TWICE DAILY WITH MEALS 60 tablet 11 01/26/2024 miconazole 2 % powder Apply 1 g (1 application total) topically as needed mupirocin (BACTROBAN) 2 % ointmentIndicat ions:Minor Bacterial Skin Infections Apply topically daily 45 g 1 11/25/2022 psyllium, aspartame, SF (METAMUCIL SF) 3.4 gram packetIndicatio ns:constipation Take 1 packet by mouth daily tadalafiL (CIALIS) 5 mg tablet TAKE 1 TABLET(5 MG) BY MOUTH DAILY NEEDED FOR ERECTILE DYSFUNCTION 10 tablet 3 03/02/2023 vibegron (Gemtesa) 75 mg tablet Take 75 mg by mouth daily documented as of this encounter Discharge Disposition Disposition Code Departure Means Destination Discharge to home or self care documented in this encounter Miscellaneous Notes * Result Encounter Note - Jose Mo MD - 02/10/2024 11:[address] RUNNER Screening Lung Ct shows no abnormal features. Should be repeated in 1 year. E RUNNER documented in this encounter Plan of Treatment Not on file documented as of this encounter Procedures Procedure Name Priority Date/Time Associated Diagnosis Comments CT LUNG CANCER SCREENING Schedule Routine, Read Routine (OP Routine) 02/10/2024 2:[address] RUNNER Personal history of nicotine dependence documented in this encounter Results * CT Lung Cancer Screening (02/10/2024 2:18 PM PLANE RUNNER) Anatomical Region Laterality Modality Chest N/A Computed Tomogra phy 02/10/2024 2:[address] RUNNER Impressions 02/10/2024 3:[address] RUNNER LungRADS Category 2 (benign). ??Recommend Low dose Screening CT of chest in 12 months. LungRADS Categories: 1 - Negative (no nodules, or only benign calcified or fat-containing nodules) 2 - Benign Appearance or Behavior (nodules with very low likelihood of becoming a clinically active cancer due to size or lack of growth) 3 - Probably Benign (probably benign findings-short term follow up suggested; includes nodules with a low likelihood of becoming a clinically active cancer) 4A,4B,4X - Suspicious (category 3 or 4 nodules with findings for which additional diagnostic testing and/or tissue sampling is recommended) S - Other (clinically significant or potentially clinically significant findings (non-lung cancer) C - Prior Lung Cancer (modifier for patients with a prior diagnosis of lung cancer who return to screening) Dictated by: Sola Marshall MD The radiology attending physician has personally reviewed this study, and had reviewed and/or edited this written report and agrees with it. Electronically signed by: Cal Currie M.D. Narrative 02/10/2024 3:[address] RUNNER EXAMINATION: ??Lung cancer screening CT of the Chest without intravenous contrast HISTORY: Lung Cancer Screening TECHNIQUE: ??Low radiation dose chest protocol. No intravenous contrast. Reconstructed slice width 1.[address] Dose Index 1.13 mGy. Dose-length product 47 mGy-cm. COMPARISON: CT Lung cancer screening 01/28/2023 FINDINGS: ?? Lung nodules or findings of lung cancer: Unchanged 6 mm subpleural left lower lobe pulmonary nodule (table position -524.0). ??Unchanged 4 mm subpleural right lower lobe pulmonary nodule (table position -556.9). Smoking related lung disease: none Other findings: Partially imaged posterior instrumented fusion of the cervical spine. Procedure Note Cal Currie MD - 02/10/2024 EXAMINATION: Lung cancer screening CT of the Chest without intravenous contrast HISTORY: Lung Cancer Screening TECHNIQUE: Low radiation dose chest protocol. No intravenous contrast. Reconstructed slice width 1.[address] Dose Index 1.13 mGy. Dose-length product 47 mGy-cm. COMPARISON: CT Lung cancer screening 01/28/2023 FINDINGS: Lung nodules or findings of lung cancer: Unchanged 6 mm subpleural left lower lobe pulmonary nodule (table position -524.0). Unchanged 4 mm subpleural right lower lobe pulmonary nodule (table position -556.9). Smoking related lung disease: none Other findings: Partially imaged posterior instrumented fusion of the cervical spine. IMPRESSION: LungRADS Category 2 (benign). Recommend Low dose Screening CT of chest in 12 months. LungRADS Categories: 1 - Negative (no nodules, or only benign calcified or fat-containing nodules) 2 - Benign Appearance or Behavior (nodules with very low likelihood of becoming a clinically active cancer due to size or lack of growth) 3 - Probably Benign (probably benign findings-short term follow up suggested; includes nodules with a low likelihood of becoming a clinically active cancer) 4A,4B,4X - Suspicious (category 3 or 4 nodules with findings for which additional diagnostic testing and/or tissue sampling is recommended) S - Other (clinically significant or potentially clinically significant findings (non-lung cancer) C - Prior Lung Cancer (modifier for patients with a prior diagnosis of lung cancer who return to screening) Dictated by: Sola Marshall MD The radiology attending physician has personally reviewed this study, and had reviewed and/or edited this written report and agrees with it. Electronically signed by: Cal Currie M.D. Jose Mo MD IMG CT PROCEDURES Final Resul t documented in this encounter Visit Diagnoses Diagnosis Personal history of nicotine dependence documented in this encounter Care Teams Retail Store Assistant Relationship Specialty Start Date End Date Jose Mo MD [address] [address] PCP - General 08/22/18 Jose Mo MD [address] [address] 08/22/18 documented as of this encounter
--- OUTSIDE RECORDS SUMMARY | 2024-03-26 21:30 | XMS_ITS | Referral Summary ---
Author Organization [facility] Address [address] [facility] [place] [address] Care Team Providers Care Public Relations Director Name Role Phone Jose Mo MD Primary Care Provider [phone] Source Comments [facility],non-owned Affiliates and Associated Physician Practices is amultiple site organization consisting of ambulatory clinics and hospital sitesin [place], [place], [place] and [place]. This disclosure is being madepursuant to the Care Everywhere program and may not contain all information available regarding this patient. Last updated 17.[facility] Encounters Date Type Department Care Team Description 03/24/2024 Lab Requisition [facility] - Pathology Lab [address] [place] [address] Weston Garces MD Illness, unspecified from Last [...] Comments PATHOLOGY TISSUE Routine 03/23/2024 1:43 PM STUDENT SUCCESS COACH Illness, unspecified from Last 3 Months Results * PATHOLOGY TISSUE (03/23/2024 1:43 PM STUDENT SUCCESS COACH) Case Report Surgical Pathology Report ? Case: [id number] ? Authorizing Provider: ??Weston Garces MD ?Collected: ? 03/23/2024 01:43 PM ? Ordering Location: ? [facility] - ??Received: ?03/24/2024 02:17 PM ? Pathology Lab ? Pathologist: ? Dk Enciso MD ? Specimen: ?Gastric Biopsy ? 03/25/2024 4:23 PM [facility] Final Diagnosis Ileal mass, biopsy: - Diffuse large B-cell lymphoma, non-germinal center derived 03/25/2024 4:23 PM [facility] Microscopic Description and Comment The H&E stained sections show a mucosal infiltrate of sheets of large lymphoid cells with hyperchromatic chromatin and few interspersed apoptotic cells. A low-grade component is not appreciated. Immunohistochemistry performed at [facility] Pathology shows the lymphoma cells to be [...] epithelial and endothelial nuclei. 03/25/2024 4:23 PM [facility] Clinical History Ilial mass. 03/25/2024 4:23 PM [facility] Materials Received Received are 2 slide(s) and 1 block(s) labeled [id number] along with a copy of the outside pathology report. [place] [address]. All original materials are returned to the referring institution, along with a copy of our final report. 03/25/2024 4:23 PM [facility] Pathologist Location at [facility] 03/25/2024 4:23 PM [facility] Disclaimer The performance characteristics of all immunohistochemical and indirect immunofluorescence stains (if any) cited in this report were determined by the Histopathology Laboratory of [facility]. Some of these tests were developed by [...] the attending (teaching) pathologist. 03/25/2024 4:23 PM [facility] Embedded Images 03/25/2024 4:23 PM [facility] Pathology/Cytolo gy GASTRIC BIOPSY SPECIMEN / Unknown 03/23/2024 1:43 PM STUDENT SUCCESS COACH 03/24/2024 2:17 PM STUDENT SUCCESS COACH Weston Garces MD LAB - PATHOLOGY/CYTO LOGY ORDERABLES [facility] [address] [place] [address], [facility] [phone] from Last 3 Months Care Teams Public Relations Director Relationship Specialty Start Date End Date Jose Mo MD PCP - General 03/21/08
--- OUTSIDE RECORDS SUMMARY | 2024-03-26 21:30 | XMS_ITS | Encounter Summary ---
Author Organization [facility] Address [address] [place] [address] Care Team Providers Care Financial Compliance Officer Name Role Phone Jose Mo MD Primary Care Provider [phone] Jose Mo MD Unavailable [phone] Reason for Visit * Reason Onset Date Comments ct report 03/17/2024 Encounter Details Date Type Department Care Team (Late st Contact Info) Description 03/17/2024 [facility] [address] [facility] [address] [place] [address] Celina Quintero, [place] [address] [place] [address] ct report Social History Tobacco Use Types Packs/Day Years [...] on file Legal Sex Male 6:24 PM EDITOR 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 Gender Identity Male 04/18/2020 9:24 AM EDITOR PRODUCER Sexual Orientation Straight 04/18/2020 9: 24 AM EDITOR PRODUCER documented as of this encounter Miscellaneous Notes * Telephone Encounter - Celina Quintero MA - 03/17/2024 1:43 PM CST They are asking if you could call and go over the report he is scheduled for 03/30/24 OR PRODUCER documented in this encounter Plan of Treatment Not on file documented as of this encounter Visit Diagnoses Not on filedocumented in this encounter Care Teams Financial Compliance Officer Relationship Specialty Start Date End Date Joes Mo MD [address] [address] PCP - General 08/22/18 Jose Mo MD [address] [address] 08/22/18 documented as of this encounter
--- OUTSIDE RECORDS SUMMARY | 2024-03-26 21:30 | XMS_ITS | Encounter Summary ---
Author Organization [facility] Address [address] [place] [address] Care Team Providers Care Electric Dolly Operator Name Role Phone Jose Mo MD Primary Care Provider [phone] Jose Mo MD Unavailable [phone] Encounter Details Date Type Department Care Team (Late st Contact Info) Description 03/08/2024 Orders Only [facility] [address] [facility] [address] [place] [facility] [place] [address] Celina Quintero, [place] [address] [place] [address] Social History Tobacco Use Types Packs/Day Years [...] on file 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
--- OUTSIDE RECORDS SUMMARY | 2024-03-26 21:30 | XMS_ITS | Encounter Summary ---
Author Organization [facility] Address [address] [place] [address] Care Team Providers Care Screen Printing Inspector Name Role Phone Jose Mo MD Primary Care Provider [phone] Jose Mo MD Unavailable [phone] Encounter Details Date Type Department Care Team (Late st Contact Info) Description 02/04/2024 [facility] [address] [facility] [address] [place] for [facility] [place] [address] Celina Quintero, [place] [address] [place] [address] Social History Tobacco Use Types Packs/Day Years [...] on file Legal Sex Male 6:24 PM C APPLICATION DEVELOPER Gender Identity Male 04/18/2020 9:24 AM C APPLICATION DEVELOPER Sexual Orientation Straight 04/18/2020 9: 24 AM C APPLICATION DEVELOPER documented as of this encounter Miscellaneous Notes * Telephone Encounter - Celina Quintero MA - 02/04/2024 3:39 PM CDT Pt aware 1:30 02/10/24 * Telephone Encounter - Celina Quintero MA - 02/04/2024 3:39 PM CDT ----- Message from Jose Mo MD sent at 02/03/2024 2:12 PM CDT ----- Oa of shoulder, he will need MRI of shoulder rotator cuff documented in this encounter Plan of Treatment Not on file documented as of this encounter Visit Diagnoses Not on filedocumented in this encounter Care Teams Screen Printing Inspector Relationship Specialty Start Date End Date Jose Mo MD [address] [address] PCP - General 08/22/18 Jose Mo MD [address] [address] 08/22/18 documented as of this encounter
--- OUTSIDE RECORDS SUMMARY | 2024-03-26 21:30 | XMS_ITS | Encounter Summary ---
Author Organization [facility] Address [address] [place] [address] Care Team Providers Care Residential Coordinator Name Role Phone Jose Mo MD Primary Care Provider [phone] Jose Mo MD Unavailable [phone] Encounter Details Date Type Department Care Team (Late st Contact Info) Description 02/04/2024 Orders Only [facility] [address] [facility] [address] [place] [address] Celina Quintero, [place] [address] [place] [address] Acute pain of right shoulder (Primary Dx) Social History Tobacco Use Types [...] on file Legal Sex Male 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
--- OUTSIDE RECORDS SUMMARY | 2024-03-26 21:30 | XMS_ITS | Encounter Summary ---
Author Organization [facility] Address [address] [place] [address] Care Team Providers Care Oxyacetylene Burner Name Role Phone Jose Mo MD Primary Care Provider [phone] Jose Mo MD Unavailable [phone] Encounter Details Date Type Department Care Team (Late st Contact Info) Description 03/15/2024 Orders Only [facility] [address] [facility] [address] [place] [address] Celina Quintero, [place] [address] [place] [address] Social History Tobacco Use Types Packs/Day Years [...] on file Legal Sex Male 6:24 PM 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
--- OUTSIDE RECORDS SUMMARY | 2024-03-26 21:30 | XMS_ITS | Encounter Summary ---
Author Organization [facility] Address [address] [place] [address] Care Team Providers Care Wireless Sales Associate Name Role Phone Jose Mo MD Primary Care Provider [phone] Jose Mo MD Unavailable [phone] Encounter Details Date Type Department Care Team (Late st Contact Info) Description 03/17/2024 Orders Only [facility] [address] [facility] [address] [place] for [facility] [address] Celina Quintero, [place] [address] [place] [address] Surgery follow-up (Primary Dx) Social History Tobacco Use Types [...] on file Legal Sex Male 6:24 PM CLERK SUPERVISOR Gender Identity Male 04/18/2020 9:24 AM CLERK SUPERVISOR Sexual Orientation Straight 04/18/2020 9: 24 AM CLERK SUPERVISOR documented as of this encounter Plan of Treatment Not on file documented as of this encounter Procedures Procedure Name Priority Date/Time Associated Diagnosis Comments CBC WITH AUTO DIFFERENTIAL Routine 03/19/2024 10:46 AM CLERK SUPERVISOR Surgery follow-up PROTIME-INR Routine 03/19/2024 10:46 AM CLERK SUPERVISOR Surgery follow-up documented in this encounter Results * (ABNORMAL) CBC with auto differential (03/19/2024 10:46 AM CLERK SUPERVISOR) WBC 7.0 3.4 - 10.8 x10E3/uL [facility] - 01 RBC 3.55(L) 4.14 - 5.80 x10E6/uL [facility] - 01 Hgb 10.1(L) 13.0 - 17.7 g/dL [facility] - 01 Hct 31.7(L) 37.5 - 51.0 % [facility] - 01 MCV 89 79 - 97 fL [facility] - 01 MCH 28.5 26.6 - 33.0 pg [facility] - 01 MCHC 31.9 31.5 - 35.7 g/dL [facility] - 01 Rdw 12.7 11.6 - 15.4 % [facility] - 01 Platelets 267 150 - 450 x10E3/uL [facility] - 01 Neutrophils pct 74 Not Estab. % [facility] - 01 Lymphs pct 10 Not Estab. % [facility] - 01 Monocytes pct 9 Not Estab. % [facility] - 01 Eosinophils pct 6 Not Estab. % [facility] - 01 Basophil pct 1 Not Estab. % [facility] - 01 Neutrophil abs 5.2 1.4 - 7.0 x10E3/uL [facility] - 01 Lymphs (Absolute) 0.7 0.7 - 3.1 x10E3/uL [facility] - 01 Monocyte abs 0.6 0.1 - 0.9 x10E3/uL [facility] - 01 Eosinophils, abs 0.4 0.0 - 0.4 x10E3/uL [facility] - 01 Basophils, abs 0.1 0.0 - 0.2 x10E3/uL [facility] - 01 Immature Granulocytes 0 Not Estab. % [facility] - 01 Immature Grans (Abs) 0.0 0.0 - 0.1 x10E3/uL [facility] - 01 Blood 03/19/2024 10:4 6 AM CLERK SUPERVISOR 03/19/2024 Narrative [facility] - 03/20/2024 6:10 AM CLERK SUPERVISOR Performed at: ?? - [facility] ??[id number] Qa Manager: Flex Rivera PhD, Phone: ??[phone] us Jose Mo MD LAB BLOOD ORDERABLES Final Re sult Performing Organization Address [facility] de Phone Number [facility] - * Protime-INR (03/19/2024 10:46 AM CLERK SUPERVISOR) INR 1.0 0.9 - 1.2 [facility] - 01 Comment: Reference interval is for non-anticoagulated patients. Suggested INR therapeutic range for Vitamin K antagonist therapy: ?? Standard Dose (moderate intensity ?therapeutic range): ? 2.0 - 3.0 ?? Higher intensity therapeutic range ? 2.5 - 3.5 PT 10.6 9.1 - 12.0 sec [facility] - 01 Blood 03/19/2024 10:4 6 AM CLERK SUPERVISOR 03/19/2024 Narrative [facility] - 03/20/2024 6:10 AM CLERK SUPERVISOR Performed at: ?? - [facility] ??[id number] Qa Manager: Flex Rivera PhD, Phone: ??[phone] us Jose Mo MD LAB BLOOD ORDERABLES Final Re sult Performing Organization Address [facility] de Phone Number [facility] - 01 documented in this encounter Visit Diagnoses Diagnosis Surgery follow-up- Primary documented in this encounter Care Teams Wireless Sales Associate Relationship Specialty Start Date End Date Jose Mo MD [address] [address] PCP - General 08/22/18 Jose Mo MD [address] [address] 08/22/18 documented as of this encounter
--- OUTSIDE RECORDS SUMMARY | 2024-03-26 21:30 | XMS_ITS | Encounter Summary ---
Author Organization [facility] Address [address] [place] [address] Care Team Providers Care Sales And Marketing Executive Name Role Phone Jose Mo MD Primary Care Provider [phone] Jose Mo MD Unavailable [phone] Reason for Referral * MRI/CAT/PET Scan (Routine) - Closed Specialty Diagnoses / Procedures Referred By Contac t Referred To Contact Radiology Diagnoses Personal history of nicotine dependence Procedures CT Lung Cancer Screening Jose Mo MD [address] [facility] [address] [place] [address] Phone: tel: fax: [facility] [address] [place] [address] Referral ID Status Reason Start Date Expiration Date Visits Re quested Visits Authorized [id number] Closed 01/30/2024 02/28/2025 1 1 Encounter Details Date Type Department Care Team (Late st Contact Info) Description 01/30/2024 Orders Only [facility] [address] [facility] [address] [place] [address] Celina Quintero MA [address] [place] [address] Personal history of nicotine dependence Social History Tobacco Use Types Packs/Day Years [...] file 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 ??Recommend Low dose [...] Cal Currie M.D. Narrative 02/10/2024 3:14 PM SUPERVISOR LIQUEFACTION EXAMINATION: ??Lung cancer screening CT of the [...] Diagnoses Diagnosis Personal history of nicotine dependence Personal history of nicotine dependence documented in this encounter Care Teams Sales And Marketing Executive Relationship Specialty Start Date End Date Jose Mo MD [address] [address] PCP - General 08/22/18 Jose Mo MD [address] [address] 08/22/18 documented as of this encounter
--- OUTSIDE RECORDS SUMMARY | 2024-03-26 21:30 | XMS_ITS | Encounter Summary ---
Author Organization [facility] Address [address] [place] [id number] Care Team Providers Care Skein Washer Name Role Phone Jose Mo MD Primary Care Provider [phone] Jose Mo MD Unavailable [phone] Reason for Referral * Consultation (Routine) - Closed Specialty Diagnoses / Procedures Referred By Contac t Referred To Contact Orthopedic Surgery Diagnoses Chronic left shoulder pain Jose Mo MD [address] [facility] [address] [place] [address] Phone: tel: fax: Bella Oliveira MD [phone] [facility] [address] [place] [address] Phone: tel: fax: Referral ID Status Reason Start Date Expiration Date V isits Requested Visits Authorized [id number] Closed Specialty Services Required 02/17/2024 03/18/2025 1 1 Question Answer Please select the performing region: [facility] (All Locations) [[id number]] To provider: BELLA OLIVEIRA [[id number]] # of visits: 1 MANUFACTURE SUPERVISOR Encounter Details Date Type Department Care Team (Late st Contact Info) Description 02/17/2024 Orders Only [facility] [address] [facility] [address] [facility] [place] [address] Celina Quintero, [place] [address] [place] [address] Chronic left shoulder pain (Primary Dx) Social [...] on file Legal Sex Male 6:24 PM PIPE MANUFACTURE SUPERVISOR Gender Identity Male 04/18/2020 9:24 AM PIPE MANUFACTURE SUPERVISOR Sexual Orientation Straight 04/18/2020 9: 24 AM PIPE MANUFACTURE SUPERVISOR documented as of this encounter Plan of Treatment Scheduled Referrals Name Type Priority Associated Diagnoses Order Schedule Ambulatory referral to Orthopedic Surgery Outpatient Referral Routine Chronic left shoulder pain Expected: 02/24/2024 (Approximate), Expires: 02/16/2025 documented as of this encounter Visit Diagnoses Diagnosis Chronic left shoulder pain- Primary Pain in joint, shoulder region documented in this encounter Care Teams Skein Washer Relationship Specialty Start Date End Date Jose Mo MD [address] [place] [address] PCP - General 08/22/18 Jose Mo MD [address] [place] [address] 08/22/18 documented as of this encounter
--- OUTSIDE RECORDS SUMMARY | 2024-03-26 21:30 | XMS_ITS | Encounter Summary ---
Author Organization [facility] Healthcare Address [address] [place] [address] Care Team Providers Care Jewelry Sales Representative Name Role Phone Jose Mo MD Primary Care Provider [phone] Jose Mo MD Unavailable [phone] Reason for Referral * MRI/CAT/PET Scan (Routine) - Closed Specialty Diagnoses / Procedures Referred By Barbara goldman Referred To Contact Radiology Diagnoses Mass of ileum Procedures PET/CT FDG Skull to Thigh Jose Mo MD [address] [address] Phone: tel: fax: [address] [address] Referral ID Status Reason Start Date Expiration Date Visits Re quested Visits Authorized [id number] Closed 03/10/2024 04/09/2025 [facility] Reason for Visit * MRI/CAT/PET Scan (Routine) - Closed Specialty Diagnoses / Procedures Referred By Contac t Referred To Contact Radiology Diagnoses Mass of ileum Procedures PET/CT FDG Skull to Thigh Jose Mo MD [address] [address] Phone: tel: fax: [facility] [address] [place] [address] Referral ID Status Reason Start Date Expiration Date Visits Re quested Visits Authorized [id number] Closed 03/10/2024 04/09/2025 2 1 Encounter Details Date Type Department Care Team (Latest Contact Info) Description 03/12/2024 6:26 AM PROPULSION MOTOR AND GENERATOR REPAIRER - 03/12/2024 11:59 PM PROPULSION MOTOR AND GENERATOR REPAIRER Hospital Encounter [facility] [address] [place] [id number] Mass of ileum Discharge Disposition: Discharge to home or self [...] on file Legal Sex Male 6:24 PM PROPULSION MOTOR AND GENERATOR REPAIRER Gender Identity Male 04/18/2020 9:24 AM PROPULSION MOTOR AND GENERATOR REPAIRER Sexual Orientation Straight 04/18/2020 9: 24 AM PROPULSION MOTOR AND GENERATOR REPAIRER documented as of this encounter Last Filed Vital Signs Vital Sign Reading Time Taken Comments Blood Pressure - - Pulse - - Temperature - - Respiratory Rate - - Oxygen Saturation - - Inhaled Oxygen Concentration - - Weight 104.8 kg (231 lb) 03/12/2024 7:05 AM PROPULSION MOTOR AND GENERATOR REPAIRER Height - - Body Mass Index 36.26 02/03/2024 11:39 AM CDT documented in this encounter Medications at Time [...] or self care documented in this encounter Plan of Treatment Not on file documented as of this encounter Procedures Procedure Name Priority Date/Time Associated Diagnosis Comments PET/CT FDG SKULL TO THIGH Schedule Routine, Read Routine (OP Routine) 03/12/2024 8:38 AM PROPULSION MOTOR AND GENERATOR REPAIRER Mass of ileum documented in this encounter Results * PET/CT FDG Skull to Thigh (03/12/2024 8:38 AM PROPULSION MOTOR AND GENERATOR REPAIRER) Anatomical Region Laterality Modality N/A Positron Emissio n Tomography (PET) 03/12/2024 10:4 3 AM PROPULSION MOTOR AND GENERATOR REPAIRER Impressions 03/12/2024 12:22 PM PROPULSION MOTOR AND GENERATOR REPAIRER 1. ??Interval increase in size of a markedly FDG avid bulky mesenteric conglomerate with retroperitoneal extension which exerts mass effect on the right ureter, bowel, and mesenteric vasculature favored to represent lymphoma. 2. Eccentric masslike thickening at the ileocecal valve appears separate from the dominant mesenteric janet conglomeration and may represent separate lymphomatous involvement of the bowel versus a separate janet conglomerate which abuts the bowel at this level. 3. Persistent moderate/severe hydronephrosis which appears unchanged since 02/26/2024 despite ureteral stent placement with findings of delayed tracer excretion within the right kidney consistent with impaired right renal function. ?? 4. ??Based on appearance of a new lesion suspected to represent lymphoma, 5PS = 5 if biopsy proven. The 5PS score is most useful in lymphoma types which are routinely FDG-avid. ??Lymphomas can be roughly grouped as follows: ?* ??Routinely FDG-avid: ?? Hodgkin lymphoma, diffuse large B-cell lymphomas, follicular lymphoma, mantle cell ?lymphoma, janet peripheral T-cell lymphoma, lymphoblastic lymphoma, and Burkitt lymphoma. ?* ??Generally not FDG-avid: ?? Small lymphocytic lymphoma and chronic lymphocytic leukemia ?* ??Variably FDG-avid (both varying between patients and between lesions): ?? Marginal-zone lymphomas and ?some T-cell lymphomas, notably cutaneous T-cell lymphomas Caution should be used when applying the 5PS score in the second and third categories above. Dictated by: Jigar Mcintyre MD The radiology attending physician has personally reviewed this study, and had reviewed and/or edited this written report and agrees with it. Electronically signed by: Brittany Euceda M.D. Narrative 03/12/2024 12:22 PM PROPULSION MOTOR AND GENERATOR REPAIRER EXAMINATION: TUMOR FDG-PET/CT IMAGING DATE OF STUDY: ??03/12/2024 SCANNER: [employer] ([email or web address]). ??This is a high-resolution scanner, which can result in higher SUVs (and even detection of new small lesions) compared to older scanners. RADIOPHARMACEUTICAL: 16.6 mCi F-18 Fluorodeoxyglucose (FDG) i.v. Injection site: Right antecubital HISTORY: 53-year-old male with hydronephrosis found to have extrinsic compression secondary to mesenteric lymphadenopathy on outside CT scan. ??The study is requested for diagnosis. Initial treatment strategy. TECHNIQUE: ?? The patient's fasting blood glucose level, measured by glucometer before injection of FDG, was 108 mg/dL. ?? After intravenous administration of FDG, noncontrast CT images were obtained for attenuation correction and for fusion with emission PET images to allow for anatomical localization of PET findings. Emission PET images were then obtained. ??The study was interpreted on the [employer] workstation. ??The mean liver SUV (reported for quality assurance supervisor final purposes) is 2.4. ?? The total scanned area was skull base to proximal thighs. Images of the body were obtained starting 55 minutes after injection of tracer. All reported SUVs are maximum SUVs, unless otherwise specified. COMPARISON: CT chest abdomen pelvis 02/26/2024 (available in [employer]) DESCRIPTORS OF LESION FDG AVIDITY: Minimal: ? <= blood pool ? Mild: ?> blood pool and <= liver ? Moderate: ?? > liver and <= 2x SUVmax liver ? Moderate to marked: ?? >2x SUVmax liver and <= 3x SUVmax liver ? Marked: ? > 3x SUVmax liver ? FINDINGS: There is a large, markedly FDG avid mesenteric mass with retroperitoneal extension which demonstrates maximum SUV of 28.8, measuring up to 13.8 x 10.6 x 10.4 cm (image 177), increased from 11.7 x 10.4 x 6.[address] 02/26/2024. There are areas of central necrosis/photopenia within this conglomerate. There is significant mass effect on the mesenteric vasculature which appears encased . There is eccentric mass like thickening at the terminal ileum, near the ileocecal valve which measures 3.8 x 3.0 cm and appears separate from the dominant mesenteric janet conglomeration with maximum SUV 25.5 (image 212). ??This may represent lymphomatous involvement of bowel versus a janet conglomerate abutting the bowel at this area. ?? This mass continues to exert mass effect on the right mid-ureter with moderate to severe dilation of the right renal pelvis. ??The right ureteral stent is coiled within the extrarenal pelvis/proximal ureter with findings of decreased renal function within the right kidney. ?? An additional focus of marked FDG uptake is seen within an enlarged right common iliac node with SUV 15.7 (image 216). The spleen is normal in size and uptake less than that of the liver. Minimally FDG avid bilateral inguinal lymph nodes are favored to be reactive. There are incidentally noted mildly FDG avid right greater than left fibroblastoma dorsi. ??Mild to moderate FDG uptake is associated with the distal esophagus and a small hiatal hernia. The most FDG-avid lesion is a precaval node, with a maximum SUV of 28.8, and approximate axial dimensions of 13.8 x 10.6 x 10.4. ??The uptake in this lesion is: markedly greater than liver (5PS= 5). Additional CT findings: Aortic calcifications. ??Right femoral intramedullary nail. Procedure Note Brittany Euceda MD - 03/12/2024 EXAMINATION: TUMOR FDG-PET/CT IMAGING DATE OF STUDY: 03/12/2024 SCANNER: [facility] [email or web address] ([email or web address]). This is a high-resolution scanner, which can result in higher SUVs (and even detection of new small lesions) compared to older scanners. RADIOPHARMACEUTICAL: 16.6 mCi F-18 Fluorodeoxyglucose (FDG) i.v. Injection site: Right antecubital HISTORY: 53-year-old male with hydronephrosis found to have extrinsic compression secondary to mesenteric lymphadenopathy on outside CT scan. The study is requested for diagnosis. Initial treatment strategy. TECHNIQUE: The patient's fasting blood glucose level, measured by glucometer before injection of FDG, was 108 mg/dL. After intravenous administration of FDG, noncontrast CT images were obtained for attenuation correction and for fusion with emission PET images to allow for anatomical localization of PET findings. Emission PET images were then obtained. The study was interpreted on the [employer] workstation. The mean liver SUV (reported for quality assurance supervisor final purposes) is 2.4. The total scanned area was skull base to proximal thighs. Images of the body were obtained starting 55 minutes after injection of tracer. All reported SUVs are maximum SUVs, unless otherwise specified. COMPARISON: CT chest abdomen pelvis 02/26/2024 (available in [employer]) DESCRIPTORS OF LESION FDG AVIDITY: Minimal: <= blood pool Mild: > blood pool and <= liver Moderate: > liver and <= 2x SUVmax liver Moderate to marked: >2x SUVmax liver and <= 3x SUVmax liver Marked: > 3x SUVmax liver FINDINGS: There is a large, markedly FDG avid mesenteric mass with retroperitoneal extension which demonstrates maximum SUV of 28.8, measuring up to 13.8 x 10.6 x 10.4 cm (image 177), increased from 11.7 x 10.4 x 6.[address] 02/26/2024. There are areas of central necrosis/photopenia within this conglomerate. There is significant mass effect on the mesenteric vasculature which appears encased . There is eccentric mass like thickening at the terminal ileum, near the ileocecal valve which measures 3.8 x 3.0 cm and appears separate from the dominant mesenteric janet conglomeration with maximum SUV 25.5 (image 212). This may represent lymphomatous involvement of bowel versus a janet conglomerate abutting the bowel at this area. This mass continues to exert mass effect on the right mid-ureter with moderate to severe dilation of the right renal pelvis. The right ureteral stent is coiled within the extrarenal pelvis/proximal ureter with findings of decreased renal function within the right kidney. An additional focus of marked FDG uptake is seen within an enlarged right common iliac node with SUV 15.7 (image 216). The spleen is normal in size and uptake less than that of the liver. Minimally FDG avid bilateral inguinal lymph nodes are favored to be reactive. There are incidentally noted mildly FDG avid right greater than left fibroblastoma dorsi. Mild to moderate FDG uptake is associated with the distal esophagus and a small hiatal hernia. The most FDG-avid lesion is a precaval node, with a maximum SUV of 28.8, and approximate axial dimensions of 13.8 x 10.6 x 10.4. The uptake in this lesion is: markedly greater than liver (5PS= 5). Additional CT findings: Aortic calcifications. Right femoral intramedullary nail. IMPRESSION: 1. Interval increase in size of a markedly FDG avid bulky mesenteric conglomerate with retroperitoneal extension which exerts mass effect on the right ureter, bowel, and mesenteric vasculature favored to represent lymphoma. 2. Eccentric masslike thickening at the ileocecal valve appears separate from the dominant mesenteric janet conglomeration and may represent separate lymphomatous involvement of the bowel versus a separate janet conglomerate which abuts the bowel at this level. 3. Persistent moderate/severe hydronephrosis which appears unchanged since 02/26/2024 despite ureteral stent placement with findings of delayed tracer excretion within the right kidney consistent with impaired right renal function. 4. Based on appearance of a new lesion suspected to represent lymphoma, 5PS = 5 if biopsy proven. The 5PS score is most useful in lymphoma types which are routinely FDG-avid. Lymphomas can be roughly grouped as follows: * Routinely FDG-avid: Hodgkin lymphoma, diffuse large B-cell lymphomas, follicular lymphoma, mantle cell lymphoma, janet peripheral T-cell lymphoma, lymphoblastic lymphoma, and Burkitt lymphoma. * Generally not FDG-avid: Small lymphocytic lymphoma and chronic lymphocytic leukemia * Variably FDG-avid (both varying between patients and between lesions): Marginal-zone lymphomas and some T-cell lymphomas, notably cutaneous T-cell lymphomas Caution should be used when applying the 5PS score in the second and third categories above. Dictated by: Jigar Mcintyre MD The radiology attending physician has personally reviewed this study, and had reviewed and/or edited this written report and agrees with it. Electronically signed by: Brittany Euceda M.D. Jose Mo MD IMG PET PROCEDURES Final Resu lt documented in this encounter Visit Diagnoses Diagnosis Mass of ileum documented in this encounter Administered Medications Inactive Administered Medications - up to 3 most recent administrations Medication Order MAR Action Action Date Dose Rate Site fludeoxyglucose F-18 (FDG) injection 15 millicurie 15 millicurie, intravenous, Once in imaging, radiopharmaceutical, Starting on Fri03/12/24 at 0705, For 1 dose Given 03/12/2024 7:11 AM PROPULSION MOTOR AND GENERATOR REPAIRER 16.58 millicuries documented in this encounter Orders Medications Ordered That Solomon ht Not Have Been Administered Count Last Ordered Date First Ordered Date fludeoxyglucose F-18 (FDG) i njection 15 millicurie 1 03/12/2024 documented in this encounter Care Teams Jewelry Sales Representative Relationship Specialty Start Date End Date Jose Mo MD [address] [facility] [address] [place] [address] PCP - General 08/22/18 Jose Mo MD [address] [facility] [address] [place] [address] 08/22/18 documented as of this encounter
--- OUTSIDE RECORDS SUMMARY | 2024-03-26 21:30 | XMS_ITS | Encounter Summary ---
Author Organization [facility] Address [address] [place] [address] Care Team Providers Care Sky Diver Name Role Phone Jose Mo MD Primary Care Provider [phone] Jose Mo MD Unavailable [phone] Encounter Details Date Type Department Care Team (Late st Contact Info) Description 02/17/2024 [facility] [address] [facility] [address] [place] for [facility] [phone] Celina Quintero, [place] [address] [place] [address] Social History Tobacco Use Types Packs/Day Years [...] on file Legal Sex Male 6:24 PM CLARIFIER OPERATOR Gender Identity Male 04/18/2020 9:24 AM CLARIFIER OPERATOR Sexual Orientation Straight 04/18/2020 9: 24 AM CLARIFIER OPERATOR documented as of this encounter Miscellaneous Notes * Telephone Encounter - Celina Quintero MA - 02/17/2024 11:31 AM CST Pt aware sent referral IFIER OPERATOR * Telephone Encounter - Celina Quintero MA - 02/17/2024 11:31 AM CST ----- Message from Jose Mo MD sent at 02/11/2024 7:41 AM CLARIFIER OPERATOR ----- See result refer to ortho shoulder IFIER OPERATOR documented in this encounter Plan of Treatment Not on file documented as of this encounter Visit Diagnoses Not on filedocumented in this encounter Care Teams Sky Diver Relationship Specialty Start Date End Date Jose Mo MD [address] [address] PCP - General 08/22/18 Jose Mo MD [address] [address] 08/22/18 documented as of this encounter
--- OUTSIDE RECORDS SUMMARY | 2024-03-26 21:30 | XMS_ITS | Encounter Summary ---
Author Organization [facility] Address [address] [place] [address] Care Team Providers Care Child Study Team Director Name Role Phone Jose Mo MD Primary Care Provider [phone] Jose Mo MD Unavailable [phone] Encounter Details Date Type Department Care Team (Late st Contact Info) Description 02/10/2024 Orders Only [facility] [address] [facility] [address] [place] [facility] [place] [phone] Celina Quintero, [place] [address] [place] [address] Chronic left shoulder pain (Primary Dx) Social [...] on file Legal Sex Male 6:24 PM LIBRARY AIDE Gender Identity Male 04/18/2020 9:24 AM LIBRARY AIDE Sexual Orientation Straight 04/18/2020 9: 24 AM LIBRARY AIDE documented as of this encounter Plan of Treatment Not on file documented as of this encounter Visit Diagnoses Diagnosis Chronic left shoulder pain- Primary Pain in joint, shoulder region documented in this encounter Care Teams Child Study Team Director Relationship Specialty Start Date End Date Jose Mo MD [address] [address] PCP - General 08/22/18 Jose Mo MD [address] [address] 08/22/18 documented as of this encounter
--- OUTSIDE RECORDS SUMMARY | 2024-03-26 21:30 | XMS_ITS | Encounter Summary ---
Author Organization [facility] Address [address] [place] [address] Care Team Providers Care Wet Process Operator Name Role Phone Jose Mo MD Primary Care Provider [phone] Jose Mo MD Unavailable [phone] Encounter Details Date Type Department Care Team (Late st Contact Info) Description 03/02/2024 Orders Only [facility] [address] [facility] [address] [place] [facility] [place] [phone] Celina Quintero, [place] [address] [place] [address] Social History Tobacco Use Types Packs/Day Years [...] on file Legal Sex Male 6:24 PM HOPPER OPERATOR Gender Identity Male 04/18/2020 9:24 AM HOPPER OPERATOR Sexual Orientation Straight 04/18/2020 9: 24 AM HOPPER OPERATOR documented as of this encounter Plan of Treatment Not on file documented as of this encounter Visit Diagnoses Not on filedocumented in this encounter Care Teams Wet Process Operator Relationship Specialty Start Date End Date Jose Mo MD [address] [address] PCP - General 08/22/18 Jose Mo MD [address] [address] 08/22/18 documented as of this encounter
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
--- OUTSIDE RECORDS SUMMARY | 2024-03-26 21:30 | XMS_ITS | Patient Health Summary ---
Author Organization [facility] Address [address] [address] Care Team Providers Care Manager Financial Planning Name Role Phone Jose Mo MD Primary Care Provider [phone] Note from [facility],non-owned Affiliates and Associated Physician Practices is amultiple site organization consisting of ambulatory clinics and hospital sitesin [place], [place], [place] and [place]. This disclosure is being madepursuant to the [...] Results * PATHOLOGY TISSUE (03/23/2024 1:43 PM PHYSICAL THERAPIST CENTER MANAGER) Case Report Surgical Pathology Report ? Case: [id number] ? Authorizing Provider: ??Weston Garces MD ?Collected: ? 03/23/2024 01:43 PM ? Ordering Location: ? [facility] - ??Received: ?03/24/2024 02:17 PM ? Pathology Lab ? Pathologist: ? Dk Enciso MD ? Specimen: ?Gastric Biopsy ? 03/25/2024 4:23 PM [facility] Final Diagnosis Ileal mass, biopsy: - Diffuse large B-cell lymphoma, non-germinal center derived 03/25/2024 4:23 PM [facility] Microscopic Description and Comment The H&E stained sections show a mucosal infiltrate of sheets of large lymphoid cells with hyperchromatic chromatin and few interspersed apoptotic cells. A low-grade component is not appreciated. Immunohistochemistry performed at [facility] Pathology shows the lymphoma cells to be CD20+, CD79a+, BCL2+, MUM-1+, and BCL-6+ (subset) B-cells that are negative for CD30, CD10, and DNEG. CD3 highlights background T-cells and CD138 highlights background plasma cells. In situ hybridization for kappa and lambda mRNA shows lambda light chain restriction in lymphoma cells. Cyclin D1 is negative in lymphoma cells, but stains epithelial and endothelial nuclei. 03/25/2024 4:23 PM [facility] Clinical History Ilial mass. 03/25/2024 4:23 PM [facility] Materials Received Received are 2 slide(s) and 1 block(s) labeled [id number] along with a copy of the outside pathology report. [place] [address]. All original materials are returned to the referring institution, along with a copy of our final report. 03/25/2024 4:23 PM [facility] Pathologist Location at [facility] 03/25/2024 4:23 PM [facility] Disclaimer The performance characteristics of [...] the attending (teaching) pathologist. 03/25/2024 4:23 PM [facility] Embedded Images 03/25/2024 4:23 PM [facility] Pathology/Cytolo gy GASTRIC BIOPSY SPECIMEN / Unknown 03/23/2024 1:43 PM PHYSICAL THERAPIST CENTER MANAGER 03/24/2024 2:17 PM PHYSICAL THERAPIST CENTER MANAGER Weston Garces MD LAB - PATHOLOGY/CYTO LOGY ORDERABLES [facility] PATH[facility] LAB [address] [place] [address], [facility] [phone] * DERMATOPATHOLOGY (11/03/2023 12:00 AM CDT) Case Report Dermatopathology Report ? Case: [id number] ? Authorizing Provider: ??Reyes Ragland MD ?Collected: [...] characteristic determined by the Dermatopathology Laboratory at [facility], directed by Dr. Omid Johnson. These tests need not be, and therefore are not, approved by the [place] Food and Drug Administration. The tests are used for clinical purposes. Billing Codes Specimen Charges Stain Charges 30928 1 4 2:47 PM CDT DERMATOPATHOLOGY LABORATORY Embedded Images 4 2:47 PM CDT DERMATOPATHOLOGY LABORATORY Pathology/Cytolog y TISSUE SPECIMEN FROM SKIN / Unknown 11/03/2023 11/05/2023 6:48 AM CDT Reyes Ragland MD LAB - PATHOLOGY/CYTO LOGY ORDERABLES DERMATOPATHOLOGY LABORATORY [facility] - Department of Dermatology [address] [phone] Care Teams Manager Financial Planning Relationship Specialty Start Date End Date Jose Mo MD PCP - General 03/21/08
--- OUTSIDE RECORDS SUMMARY | 2024-03-26 21:30 | XMS_ITS | Encounter Summary ---
Author Organization [facility] Address [address] [place] [address] Care Team Providers Care Childcare Worker Name Role Phone Jose Mo MD Primary Care Provider Jose Mo MD Unavailable [phone] Encounter Details Date Type Department Care Team (Late st Contact Info) Description 02/26/2024 Orders Only [facility] [address] [place] [address] Jose Mo MD [address] [facility] [address] [place] [address] Social History Tobacco Use Types [...] on file Legal Sex Male 6:24 PM PUNCHER Gender Identity Male 04/18/2020 9:24 AM PUNCHER Sexual Orientation Straight 04/18/2020 9: 24 AM PUNCHER documented as of this encounter Plan of Treatment Not on file documented as of this encounter Procedures Procedure Name Priority Date/Time Associated Diagnosis Comments SCAN - RADIOLOGY/IMAGING 02/26/2024 6:17 PM PUNCHER SCAN - LABS 02/26/2024 11:53 AM PUNCHER documented in this encounter Results * SCAN - RADIOLOGY/IMAGING (02/26/2024 6:17 PM PUNCHER) Anatomical Region Laterality Modality Other us Jose Mo MD Final Result * SCAN - LABS (02/26/2024 11:53 AM PUNCHER) us Jose Mo MD Final Result documented in this encounter Visit Diagnoses Not on filedocumented in this encounter Care Teams Childcare Worker Relationship Specialty Start Date End Date Jose Mo MD [address] [address] PCP - General 08/22/18 Jose Mo MD [address] [address] 08/22/18 documented as of this encounter
--- OUTSIDE RECORDS SUMMARY | 2024-03-26 21:30 | XMS_ITS | Encounter Summary ---
Author Organization [facility] Address [address] [place] [address] Care Team Providers Care Bunch Maker Name Role Phone Jose Mo MD Primary Care Provider [phone] Jose Mo MD Unavailable [phone] Reason for Visit * MRI/CAT/PET Scan (Routine) - Closed Specialty Diagnoses / Procedures Referred By Contac t Referred To Contact Radiology Diagnoses Mass of ileum Procedures PET/CT FDG Skull to Thigh Jose Mo MD [address] [address] Phone: tel: fax: [address] [address] Referral ID Status Reason Start Date Expiration Date Visits Re quested Visits Authorized [id number] Closed 03/10/2024 04/09/2025 2 1 Encounter Details Date Type Department Care Team (Latest Contact Info) Description 03/12/2024 6:27 AM FLOOR COVERING PRINTER - 03/12/2024 11:59 PM FLOOR COVERING PRINTER Hospital Encounter [facility] [address] [place] [address] Discharge Disposition: Discharge to home or self care Social History Tobacco Use Types Packs/Day Years Used Date Smoking Tobacco: Former Cigarettes 1 20 1 2018 Smokeless Tobacco: Never Alcohol Use [...] on file Legal Sex Male 6:24 PM FLOOR COVERING PRINTER Gender Identity Male 04/18/2020 9:24 AM FLOOR COVERING PRINTER Sexual Orientation Straight 04/18/2020 9: 24 AM FLOOR COVERING PRINTER documented as of this encounter Medications at [...] Read Routine (OP Routine) 03/12/2024 8:38 AM FLOOR COVERING PRINTER Mass of ileum documented in this encounter Results * PET/CT FDG Skull to Thigh (03/12/2024 8:38 AM FLOOR COVERING PRINTER) Anatomical Region Laterality Modality N/A Positron Emissio n Tomography (PET) 03/12/2024 10:4 3 AM FLOOR COVERING PRINTER Impressions 03/12/2024 12:22 PM FLOOR COVERING PRINTER 1. ??Interval increase in size of a [...] Brittany Euceda M.D. Narrative 03/12/2024 12:22 PM FLOOR COVERING PRINTER EXAMINATION: TUMOR FDG-PET/CT IMAGING DATE OF STUDY: ??03/12/2024 SCANNER: [facility] PET [employer] (NV1). ??This is a high-resolution scanner, which [...] obtained. ??The study was interpreted on the [employer] workstation. ??The mean liver SUV (reported for environmental quality analyst purposes) is 2.4. ?? The total scanned area was skull base to proximal thighs. Images of the body were obtained starting 55 minutes after injection of tracer. All reported SUVs are maximum SUVs, unless otherwise specified. COMPARISON: CT chest abdomen pelvis 02/26/2024 (available in [employer]) DESCRIPTORS OF LESION FDG AVIDITY: Minimal: ? [...] FDG-PET/CT IMAGING DATE OF STUDY: 03/12/2024 SCANNER: [facility] [employer] (NV1). This is a high-resolution scanner, which [...] obtained. The study was interpreted on the [employer] workstation. The mean liver SUV (reported for environmental quality analyst purposes) is 2.4. The total scanned area [...] lt documented in this encounter Visit Diagnoses Not on filedocumented in this encounter Care Teams Bunch Maker Relationship Specialty Start Date End Date Jose Mo MD [address] [address] PCP - General 08/22/18 Jose Mo MD [address] [address] 08/22/18 documented as of this encounter
--- OUTSIDE RECORDS SUMMARY | 2024-03-26 21:30 | XMS_ITS | Encounter Summary ---
Author Organization [facility] Address [address] [place] [address] Care Team Providers Care Baseball Sewer Hand Name Role Phone Jose Mo MD Primary Care Provider Jose Mo MD Unavailable Encounter Details Date Type Department Care Team (Late st Contact Info) Description 03/16/2024 Orders Only [facility] [address] [facility] [address] [place] [facility] [place] [address] [place] Quintero, [place] [address] [place] [address] Mass of ileum (Primary Dx) Social History Tobacco Use Types [...] on file Legal Sex Male 6:24 PM SQUARING SHEAR OPERATOR Gender Identity Male 04/18/2020 9:24 AM SQUARING SHEAR OPERATOR Sexual Orientation Straight 04/18/2020 9: 24 AM SQUARING SHEAR OPERATOR documented as of this encounter Plan of Treatment Not on file documented as of this encounter Visit Diagnoses Diagnosis Mass of ileum- Primary documented in this encounter Care Teams Baseball Sewer Hand Relationship Specialty Start Date End Date Jose Mo MD [address] [address] PCP - General 08/22/18 Jose Mo MD [address] [address] 08/22/18 documented as of this encounter
--- OUTSIDE RECORDS SUMMARY | 2024-03-26 21:30 | XMS_ITS | Encounter Summary ---
Author Organization [facility] Address [address] [place] [address] Care Team Providers Care Patch Setter Name Role Phone Jose Mo MD Primary Care Provider [phone] Jose Mo MD Unavailable [phone] Encounter Details Date Type Department Care Team (Late st Contact Info) Description 03/01/2024 [facility] [address] [facility] [address] [place] [facility] [place] [phone] Celina Quintero, [place] [address] [place] [address] Social History Tobacco Use Types Packs/Day Years [...] on file Legal Sex Male 6:24 PM OIL SPECULATOR Gender Identity Male 04/18/2020 9:24 AM OIL SPECULATOR Sexual Orientation Straight 04/18/2020 9: 24 AM OIL SPECULATOR documented as of this encounter Miscellaneous Notes * Telephone Encounter - Celina Quintero MA - 03/01/2024 3:16 PM CST Pt aware sees Dr. dukes SPECULATOR * Telephone Encounter - Celina Quintero MA - 03/01/2024 3:16 PM CST ----- Message from Jose Mo MD sent at 03/01/2024 7:59 AM OIL SPECULATOR ----- Make sure urology is aware of the adenopathy. SPECULATOR documented in this encounter Plan of Treatment Not on file documented as of this encounter Visit Diagnoses Not on filedocumented in this encounter Care Teams Patch Setter Relationship Specialty Start Date End Date Jose Mo MD [address] [address] PCP - General 08/22/18 Jose Mo MD [address] [address] 08/22/18 documented as of this encounter
--- OUTSIDE RECORDS SUMMARY | 2024-03-26 21:30 | XMS_ITS | Encounter Summary ---
Author Organization [facility] Address [address] [place] [address] Care Team Providers Care Automotive Parts Counter Assistant Name Role Phone Jose Mo MD Primary Care Provider [phone] Jose Mo MD Unavailable [phone] Reason for Referral * MRI/CAT/PET Scan (Routine) - Closed Specialty Diagnoses / Procedures Referred By Contac t Referred To Contact Radiology Diagnoses Mass of ileum Procedures PET/CT FDG Skull to Thigh Jose Mo MD [address] [facility] [address] [place] [address] Phone: tel: fax: [facility] [address] [place] [address] Referral ID Status Reason Start Date Expiration Date Visits Re quested Visits Authorized [id number] Closed 03/10/2024 04/09/[address] Encounter Details Date Type Department Care Team (Late st Contact Info) Description 03/10/2024 Orders Only [facility] [address] [facility] [address] [facility] [place] [address] Celina Quintero MA [address] [place] [address] Mass of ileum (Primary Dx) Social History Tobacco Use Types Packs/Day Years Used Date Smoking Tobacco: Former Cigarettes 1 - 2018 Smokeless Tobacco: Never Alcohol Use Standard [...] on file Legal Sex Male 6:[address]PERATOR Gender Identity Male 04/18/2020 9:[address]ATOR Sexual Orientation Straight 04/18/2020 9: [address]PERATOR documented as of this encounter Plan of Treatment Not on file documented as of this encounter Results * PET/CT FDG Skull to Thigh (03/12/2024 8:[address]PER[address]) Anatomical Region Laterality Modality N/A Positron Emissio n Tomography (PET) 03/12/2024 10:[address]PER[address] Impressions 03/12/2024 12:[address]PERATOR 1. ??Interval increase in size of a [...] Brittany Euceda M.D. Narrative 03/12/2024 12:[address]PERATOR EXAMINATION: TUMOR FDG-PET/CT IMAGING DATE OF STUDY: ??03/12/2024 SCANNER: [employer] (NV1). ??This is a high-resolution scanner, which [...] obtained. ??The study was interpreted on the [employer] workstation. ??The mean liver SUV (reported for quality coordinator purposes) is 2.4. ?? The total scanned area was skull base to proximal thighs. Images of the body were obtained starting 55 minutes after injection of tracer. All reported SUVs are maximum SUVs, unless otherwise specified. COMPARISON: CT chest abdomen pelvis 02/26/2024 (available in [employer]) DESCRIPTORS OF LESION FDG AVIDITY: Minimal: ? [...] FDG-PET/CT IMAGING DATE OF STUDY: 03/12/2024 SCANNER: [facility] [employer] (NV1). This is a high-resolution scanner, which [...] obtained. The study was interpreted on the [employer] workstation. The mean liver SUV (reported for quality coordinator purposes) is 2.4. The total scanned area [...] Visit Diagnoses Diagnosis Mass of ileum- Primary Mass of ileum documented in this encounter Care Teams Automotive Parts Counter Assistant Relationship Specialty Start Date End Date Jose Mo MD [address] [facility] [address] [place], [place] [id number] PCP - General 08/22/18 Jose Mo MD [address] [facility] [address] [place] [address] 08/22/18 documented as of this encounter
--- OUTSIDE RECORDS SUMMARY | 2024-03-26 21:30 | XMS_ITS | Encounter Summary ---
Author Organization [facility] Address [address] [place] [address] Care Team Providers Care Chief Controller Tower Name Role Phone Jose Mo MD Primary Care Provider [phone] Jose Mo MD Unavailable [phone] Reason for Referral * Diagnostic Imaging (Routine) - Closed Specialty Diagnoses / Procedures Referred By Barbara goldman Referred To Contact Diagnoses Chronic left shoulder pain Procedures XR Shoulder Left 2 or More Views Jose Mo MD [address] [address] Phone: tel: fax: [address] [address] Referral ID Status Reason Start Date Expiration Date Visits Re quested Visits Authorized [id number] Closed 02/03/2024 03/04/2025 1 1 Reason for Visit * Diagnostic Imaging (Routine) - Closed Specialty Diagnoses / Procedures Referred By Barbara goldman Referred To Contact Diagnoses Chronic left shoulder pain Procedures XR Shoulder Left 2 or More Views Jose Mo MD [address] [address] Phone: tel: fax: [facility] [address] [facility] [place] [address] Referral ID Status Reason Start Date Expiration Date Visits Re quested Visits Authorized [id number] Closed 02/03/2024 03/04/2025 1 1 Encounter Details Date Type Department Care Team (Latest Contact Info) Description 02/03/2024 12:47 PM CDT - 02/03/2024 11:59 PM CDT Hospital Encounter [facility] [address] [place] [address] Jose Mo MD [address] [facility] [address] [place] [address] Chronic left shoulder pain Discharge Disposition: Discharge to home or self [...] on file Legal Sex Male 6:24 PM SENIOR APPLICATION SECURITY CONSULTANT Gender Identity Male 04/18/2020 9:24 AM SENIOR APPLICATION SECURITY CONSULTANT Sexual Orientation Straight 04/18/2020 9: 24 AM SENIOR APPLICATION SECURITY CONSULTANT documented as of this encounter Medications at [...] Name Priority Date/Time Associated Diagnosis Comments XR SHOULDER LEFT 2 OR MORE VIEWS Schedule Routine, Read Routine (OP Routine) 02/03/2024 12:59 PM CDT Chronic left shoulder pain documented in this encounter Results * XR Shoulder Left [...] documented in this encounter Visit Diagnoses Diagnosis Chronic left shoulder pain Pain in joint, shoulder region documented in this encounter Care Teams Chief Controller Tower Relationship Specialty Start Date End Date Jose Mo MD [address] [address] PCP - General 08/22/18 Jose Mo MD [address] [address] 08/22/18 documented as of this encounter
--- OUTSIDE RECORDS SUMMARY | 2024-03-26 21:30 | XMS_ITS | Encounter Summary ---
Author Organization [facility] Address [address] [place] [address] Care Team Providers Care Electron Beam Photo Mask Maker Name Role Phone Jose Mo MD Primary Care Provider [phone] Jose Mo MD Unavailable Encounter Details Date Type Department Care Team (Late st Contact Info) Description 03/21/2024 Orders Only [facility] [address] 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 Gender Identity Male 04/18/2020 9:24 AM HIGH PRESSURE CLEANER Sexual Orientation Straight 04/18/2020 9: 24 AM HIGH PRESSURE CLEANER documented as of this encounter Plan of Treatment Not on file documented as of this encounter Procedures Procedure Name Priority Date/Time Associated Diagnosis Comments SCAN - RADIOLOGY/IMAGING 03/21/2024 8:44 PM HIGH PRESSURE CLEANER SCAN - RADIOLOGY/IMAGING 03/21/2024 8:39 PM HIGH PRESSURE CLEANER documented in this encounter Results * SCAN - RADIOLOGY/IMAGING (03/21/2024 8:44 PM HIGH PRESSURE CLEANER) Anatomical Region Laterality Modality Other Jose Mo MD Final Result * SCAN - RADIOLOGY/IMAGING (03/21/2024 8:39 PM HIGH PRESSURE CLEANER) Anatomical Region Laterality Modality Other Jose Mo MD Final Result documented in this encounter Visit Diagnoses Not on filedocumented in this encounter Care Teams Electron Beam Photo Mask Maker Relationship Specialty Start Date End Date Jose Mo MD [address] [address] PCP - General 08/22/18 Jose Mo MD [address] [address] 08/22/18 documented as of this encounter
--- OUTSIDE RECORDS SUMMARY | 2024-03-26 21:30 | XMS_ITS | Encounter Summary ---
Author Organization [facility] Address [address] [place] [address] Care Team Providers Care Hatchery Worker Name Role Phone Jose Mo MD Primary Care Provider [phone] Jose Mo MD Unavailable Encounter Details Date Type Department Care Team (Late st Contact Info) Description 03/02/2024 Orders Only [facility] [address] [facility] [address] [place] [address] Jose Mo MD [address] [facility] [address] [place] [address] Social History Tobacco Use Types [...] on file Legal Sex Male 6:24 PM CUSTOMER COUNTER REPRESENTATIVE Gender Identity Male 04/18/2020 9:24 AM CUSTOMER COUNTER REPRESENTATIVE Sexual Orientation Straight 04/18/2020 9: 24 AM CUSTOMER COUNTER REPRESENTATIVE documented as of this encounter Plan of Treatment Not on file documented as of this encounter Procedures Procedure Name Priority Date/Time Associated Diagnosis Comments SCAN - RADIOLOGY/IMAGING 03/02/2024 11:26 AM CUSTOMER COUNTER REPRESENTATIVE documented in this encounter Results * SCAN - RADIOLOGY/IMAGING (03/02/2024 11:26 AM CUSTOMER COUNTER REPRESENTATIVE) Anatomical Region Laterality Modality Other Jose Mo MD Final Result documented in this encounter Visit Diagnoses Not on filedocumented in this encounter Care Teams Hatchery Worker Relationship Specialty Start Date End Date Jose Mo MD [email or web address] [address] PCP - General 08/22/18 Jose Mo MD [email or web address] [address] 08/22/18 documented as of this encounter
--- OUTSIDE RECORDS SUMMARY | 2024-03-26 21:30 | XMS_ITS | Referral Summary ---
Author Organization [facility] Address [address] [place] [address] Care Team Providers Care Student Financial Services Counselor Name Role Phone Jose Mo MD Primary Care Provider [phone] Jose Mo MD Unavailable [phone] Encounters Date Type Department Care Team Description 03/26/2024 Orders Only [facility] Oncology [address] [facility] Floor 6 [place] [phone] Fabiana Mensah MD B-cell lymphoma, unspecified B-cell lymphoma type, unspecified body region (HCC) (Primary Dx) 03/26/2024 Orders Only [facility] Critical access hospital1 [facility] [address] [place] [address] Jose oM MD 03/24/2024 Telephone [facility] Surgery [address] [facility] [address] [place] [address] Codi Presley RN 03/24/2024 Telephone [facility] Critical access hospital[address] [place] [address] Celina Quintero MA 03/23/2024 Orders Only [facility] Critical access hospital1 [address] [address] Jose Mo MD 03/21/2024 Orders Only [facility] [address] [facility] [address] [place] [address] Jose Mo MD 03/17/2024 Telephone [facility] [address] [place] [address] [address] MA ct report 03/17/2024 Orders Only [facility] [address] [facility] [address] [place] [address] Celina Quintero MA Surgery follow-up (Primary Dx) 03/16/2024 Telephone Radiology 1 [place] [address] Yaneth Navarrete, RT 03/16/2024 Orders Only [facility] [address] [address] Celina Quintero MA Mass of ileum (Primary Dx) 03/15/2024 Orders Only [facility] [address] [facility] [address] [place] [address] Celina Quintero MA 03/12/2024 6:27 AM [facility] - 03/12/2024 11:59 PM [facility] Hospital Encounter [facility] Critical access hospital1 [place] [address] Discharge Disposition: Discharge to home or self care 03/12/2024 6:26 AM [facility] - 03/12/2024 11:59 PM [facility] Hospital Encounter [facility]) [address] [place] [address] Mass of ileum Discharge Disposition: Discharge to home or self care 03/10/2024 Orders Only [facility] [address] [place] [address] Celina Quintero MA Mass of ileum (Primary Dx) 03/08/2024 Orders Only [facility] [address] [facility] [address] [place] [address] Celina Quintero MA 03/07/2024 Orders Only [facility] [address] [facility] [address] [place] [address] Jose Mo MD 03/02/2024 Orders Only [facility] [address] [facility] [address] [place] [address] Celina Quintero MA 03/02/2024 Orders Only [facility] [address] [address] Jose Mo MD 03/01/2024 Telephone [facility] [address] [address] Celina Quintero MA 03/01/2024 Orders Only [facility] [address] [address] Jose Mo MD 02/26/2024 Orders Only [facility] [address] [address] Jose Mo MD 02/17/2024 Telephone [facility] [address] [address] Celina Quintero MA 02/17/2024 Orders Only [facility] [address] [place] [address] Celina Quintero MA Chronic left shoulder pain (Primary Dx) 02/10/2024 Orders Only [facility] [address] [facility] [address] [place] [address] Celina Quitnero MA Chronic left shoulder pain (Primary Dx) 02/10/2024 1:05 PM [facility] - 02/10/2024 11:59 PM [facility] Hospital Encounter [facility] [address] [place] [address] Jose Mo MD Chronic left shoulder pain Discharge Disposition: Discharge to home or self care 02/10/2024 1:05 PM [facility] - 02/10/2024 11:59 PM [facility] Hospital Encounter [facility]) [address] [place] [address] Jose Mo MD Personal history of nicotine dependence Discharge Disposition: Discharge to home or self care 02/04/2024 Telephone [facility] [address] [facility] [address] [place] [facility] [place] [address] Celina Quintero MA 02/04/2024 Orders Only [facility] [address] [place], [place] [address]A [facility] [place] [address] Celina Quintero MA Chronic left shoulder pain (Primary Dx) 02/04/2024 Orders Only [facility] [address] [place] [address] [address] [place] [facility] [place] [address] Celina Quintero MA Acute pain of right shoulder (Primary Dx) 02/03/2024 12:47 PM CDT - 02/03/2024 11:59 PM CDT Hospital Encounter [facility] ([facility]) [address] [place] [address] Jose Mo MD Chronic left shoulder pain Discharge Disposition: Discharge to home or self care 02/03/2024 11:30 AM CDT Office Visit [facility] [address] [place] [address] [address] [facility] [place] [address] Jose Mo MD Hemorrhoids, unspecified hemorrhoid type (Primary Dx); Chronic left shoulder pain 01/30/2024 Orders Only [facility] [address] [place] [address] [address] [facility] [place] [address] Celina Quintero MA Personal history of nicotine dependence 01/23/2024 Telephone [facility] ([facility]) [address] [place] [address] Jaqueline Regalado, DANNA from Last 3 Months Allergies Active Allergy Reactions Criticality Noted Date Comments Adhesive Rash Medium 05/25/2021 Hydromorphone Hives,Sweating,Other (See comments) Medium 07/28/2018 Sulfa (Sulfonamide Antibiotics) Swelling Medium 10/18/2012 Swelling to legs. Medications ascorbic acid (VITAMIN C) 1,000 mg tablet Take 4 tablets (4,000 mg total) by mouth daily 019 Active Additional Information Patient taking differently: 1,000 mgoral2 times daily after meals (bkfst, dinner), With Methanimine, Informant: Self, Reported on 02/21/2022 bisacodyl (DULCOLAX) 10 mg suppositoryIn dications:con stipation Insert 1 suppository (10 mg total) into the rectum daily as needed for constipation (2nd line) 12 suppository 019 Active diphenhydrAMI NE (BENADRYL) 25 mg capsuleIndica tions:Urticar ia Take 1 tablet/capsule (25 mg total) by mouth every 6 (six) hours as needed for itching 30 capsule 019 Active Additional Information Patient taking differently:25 mg oralNightly PRN, itching,Takes 1/2 tablet, Indications: sleep, Reported on 02/21/[address] (NexIUM) 40 mg capsuleIndica tions:Treatme nt of Non-Bleeding Gastric Disorder Take 1 capsule (40 mg total) by mouth daily before breakfast 020 Active miconazole 2 % powder Apply 1 g (1 application total) topically as needed Active psyllium, aspartame, SF (METAMUCIL SF) 3.4 gram packetIndicat ions:constipa tion Take 1 packet by mouth daily Active ibuprofen (ADVIL,MOTRIN ) 800 mg tabletIndicat ions:Anti-inf lammatory Take 1 tablet (800 mg total) by mouth every 6 (six) hours as needed for pain Active cyclobenzapri ne (FLEXERIL) 10 mg tablet Take 1 tablet (10 mg total) by mouth 3 (three) times a day as needed for muscle spasms for muscle spasms 30 tablet 1 022 Active mupirocin (BACTROBAN) 2 % ointmentIndic ations:Minor Bacterial Skin Infections Apply topically daily 45 g 1 023 Active tadalafiL (CIALIS) 5 mg tablet TAKE 1 TABLET(5 MG) BY MOUTH DAILY NEEDED FOR ERECTILE DYSFUNCTION 10 tablet 3 023 Active hydrocortison e 2.5 % cream APPLY TOPICALLY TO THE AFFECTED AREA ONCE DAILY NEEDED FOR RASH 30 g 1 023 Active furosemide (LASIX) 20 mg tablet TAKE 1 TABLET(20 MG) BY MOUTH DAILY 90 tablet 3 024 Active fosfomycin (MONUROL) 3 gram packetIndicat ions:Urinary Tract/Genitou rinary Infection Take 3 g by mouth as needed (take one dose and repeat a dose in 72 hours as needed for UTI) 10 packet 3 024 Active carBAMazepine XR (TEGretol XR) 200 mg 12 hr tablet TAKE 1 TABLET BY MOUTH FIVE TIMES DAILY DIRECTED 450 tablet 2 024 Active methenamine (HIPREX) 1 gram tablet TAKE 1 TABLET(1 GRAM) BY MOUTH TWICE DAILY WITH MEALS 60 tablet 11 024 Active vibegron (Gemtesa) 75 mg tablet Take 75 mg by mouth daily Active d-mannose powder Take by mouth Active losartan (COZAAR) 50 mg tablet TAKE 1 TABLET(50 MG) BY MOUTH DAILY 90 tablet 024 Active losartan (COZAAR) 50 mg tablet Take 1 tablet (50 mg total) by mouth daily 30 tablet 1 024 2023 Discontinued Active Problems Problem Noted Date Diagnosed Date Tear of medial meniscus of left knee, current Chronic pain of left knee 08/06/2022 Instability of left knee joint 08/06/2022 Acute left ankle pain 07/29/2022 Pain in right foot 05/17/2021 Assessment & Plan (01/31/2022 4:46 PM CDT): Dr. Argueta for second opinion Follows with DPM Lyrica BID-TID Elevated PSA 04/17/2021 Overview (04/17/2021): Added automatically from request for surgery [id number] Hemorrhoids 04/19/2020 Impotence 04/19/2020 Intertrigo 04/19/2020 Osteoarthritis 04/19/2020 Prepatellar bursitis 04/19/2020 Spasticity 04/19/2020 Gastroesophageal reflux disease without esophagi tis 02/23/2020 Assessment & Plan (02/23/2020 2:02 PM [facility] Check B12 level Bunion 03/26/2018 Stasis dermatitis of lower e xtremity due to chronic peripheral vascular hypertension 03/26/2018 Quadriparesis 09/23/2017 Assessment & Plan (02/23/2020 2:02 PM [facility]): Stable and unchanged. Will continue physical therapy. Seizures 09/23/2017 Assessment & Plan (01/31/2022 4:47 PM CDT): Referral to Neuro No recent Seizure activity May need head imaging if QUINTANA persist, Neuro exam normal Assessment & Plan (02/23/2020 2:02 PM [facility]): Doing well check Tegretol level Encounter for screening exam ination for sexually transmitted disease 05/20/2017 Assessment & Plan (01/31/2022 4:44 PM CDT): Due for influenza, COVID bivalent booster, Tdap, Shingrix and PCV20 Current on labs Reports he had a colonoscopy 2014 due in 2024 (Jah) Goal of 150 min activity weekly Limit 2 EtOH drinks daily (currently well under) Recurrent UTI 02/13/2017 Assessment & Plan (02/23/2020 2:02 PM [facility]): On suppressive therapy will check urinalysis Resolved Problems Problem Noted Date Diagnosed Date Resolved Date Anemia 04/19/2020 01/31/2022 Derangement of knee 04/19/2020 02/01/20 Dysphagia 04/19/2020 01/31/2022 Low back pain 04/19/2020 01/31/2022 Mass of lower limb 04/19/2020 Neck pain 04/19/2020 01/31/2022 Sprain of ankle 04/19/2020 01/31/2022 Sepsis 05/10/2019 01/31/2022 Epididymitis 05/09/2019 01/31/2022 Urinary tract infection 05/09/201901/06 Infection associated with in ternal fixation device of right tibia ([facility]) 07/27/2018 02/01/20 Overview (07/27/2018): Added automatically from request for surgery [id number] Closed displaced oblique fra cture of shaft of right tibia 06/11/2018 01/31/2022 Displaced transverse fractur e of shaft of right fibula, initial encounter for closed fracture 06/11/2018 01/31/2022 Fissure in skin 03/26/2018 01/31/2022 Foot callus 03/26/2018 01/31/2022 Onychomycosis 03/26/2018 01/31/2022 Immunizations Name Administration Dates Next Due Influenza, Quadrivalent, Pushpa l Culture-based MDCK, Preservative Free, Antibiotic Free, Intramuscular 02/19/2022 Influenza, Quadrivalent, Spl it, Preservative Free, Intramuscular 12/24/2019 Influenza, Trivalent, IM (MDV) ,01/19/2014,01/22/2013,01/22 Influenza, Trivalent, Preser vative Free, Intramuscular 01/23/2013,01/23/2013 Social History Tobacco Use Types Packs/Day Years Used Date Smoking Tobacco: Former Cigarettes - 2018 Smokeless Tobacco: Never Tobacco Cessation:Counseling Given: Not [...] on file Legal Sex Male 6:24 PM [facility] Gender Identity Male 04/18/2020 9:24 AM [facility] Sexual Orientation Straight 04/18/2020 9: 24 AM [facility] Last Filed Vital Signs Vital Sign Reading Time Taken Comments Blood Pressure 184/83 02/03/2024 11:39 AM CDT Pulse 78 02/03/2024 11:39 AM CDT Temperature 36.6 ??C (97.9 ??F) 09/09/2023 11:17 AM C DT Respiratory Rate 16 05/25/2021 10:20 AM [facility] Oxygen Saturation 98% 05/25/2021 10:20 AM [facility] Inhaled Oxygen Concentration - - Weight 104.8 kg (231 lb) 03/12/2024 7:05 AM [facility] Height 170 cm (5' 6.93 ) 02/03/2024 11:39 AM CDT Body Mass Index 36.26 02/03/2024 11:39 AM CDT Plan of Treatment Not on file Medical Devices Implanted Type Area On Site Coordinator Device Identifier Shelf Expiration Date Model / Serial / Lot Synthes ..522 5mm 4.3mm 32mm Lock Self Tap Blunt Tip 2 Lead Tibial T25 Full - [id number] Implanted:Qty: 1 on 06/12/2018 by Flash Magaña MD at [facility] Right: Tibia Synthes I ..522 / / Synthes 04..528 5mm 4.3mm 38mm Lock Self Tap Blunt Tip 2 Lead Tibial T25 Full - [id number] Implanted:Qty: 1 on 06/12/2018 by lFash Magaña MD at [facility] Right: Tibia Synthes I .005.528 / / Synthes 04..530 5mm 4.3mm 40mm Lock Self Tap Blunt Tip 2 Lead Tibial T25 Full - [id number] Implanted:Qty: 1 on 06/12/2018 by Flash Magaña MD at [facility] Right: Tibia Synthes I ..530 / / Cage Cage N/A: Neck Description:Cervical cage Synthes 04.034.649s Expert 12mm 345mm Cannulated Proximal Bend Tibial Flute Nail - [id number] Implanted:Qty: 1 on 06/12/2018 by Flahs Magaña MD at [facility] Nail Right: Tibia Synthes I 04.034.649S / / Synthes 239.960 Lcp Combi 171mm 10 Hole Limit Contact Tibial Right Proximal - [id number] Implanted:Qty: 1 on 06/12/2018 by Flash Magaña MD at [facility] Plate Right: Tibia Synthes I 239.960 / / Synthes 204.824 3.5mm 6mm 24mm 2.5mm Self Tap Small Hexagonal Socket Low Profile - [id number] Implanted:Qty: 3 on 06/12/2018 by Flash Magaña MD at [facility] Screw Right: Tibia Synthes I 204.824 / / Synthes 212.121 3.5mm 2.9mm 50mm Self Tap Lock Stardrive Conical Head T15 Full - [id number] Implanted:Qty: 2 on 06/12/2018 by Flash Magaña MD at [facility] Screw Right: Tibia Synthes I 212.121 / / Synthes 212.121 3.5mm 2.9mm 50mm Self Tap Lock Stardrive Conical Head T15 Full - [id number] Implanted:Qty: 2 on 06/12/2018 by Flash Magaña MD at [facility] Screw Right: Tibia Synthes I 212.121 / / Synthes 04.015.555 5mm 8mm 65mm 2 Core Self Tap Lock Stardrive Tibial T25 Full - [id number] Implanted:Qty: 1 on 06/12/2018 by Flash Magaña MD at [facility] Screw Right: Tibia Synthes I 04.015.555 / / Synthes 04.015.560 5mm 8mm 70mm 2 Core Self Tap Lock Stardrive Tibial T25 Full - [id number] Implanted:Qty: 1 on 06/12/2018 by Flash Magaña MD at [facility] Screw Right: Tibia Synthes I 04.015.560 / / Synthes 04.015.575 5mm 8mm 85mm 2 Core Self Tap Lock Stardrive Tibial T25 Full - [id number] Implanted:Qty: 1 on 06/12/2018 by Flash Magaña MD at [facility] Screw Right: Tibia Synthes I 04.015.575 / / Explanted Type Area On Site Coordinator Device Identifier Shelf Expiration Date Model / Serial / Lot [employer] [id number] Steinmann 3.6mm 22.9mm 1 End Trocar Point Style 5 Pin Fixation - [id number] Explanted:Qty: 3 on 06/12/2018 at [facility] Right: Tibia [employer] [id number] / / [employer] [id number] Kiera 1.6mm 22.9cm 2 End Trocar Point Style 5 Wire Fixation - [id number] Explanted:Qty: 2 on 06/12/2018 at [facility] Right: Tibia [employer] [id number] / / Procedures Procedure Name Priority Date/Time Associated Diagnosis Comments SCAN - PATHOLOGY 03/26/2024 8:11 AM [facility] GI - RESULT 03/24/2024 5:09 PM [facility] SCAN - PATHOLOGY 03/24/2024 3:32 PM [facility] GI - RESULT 03/23/2024 2:27 PM [facility] SCAN - LABS 03/21/2024 10:13 PM [facility] SCAN - RADIOLOGY/IMAGING 03/21/2024 8:44 PM [facility] SCAN - RADIOLOGY/IMAGING 03/21/2024 8:39 PM [facility] CBC WITH AUTO DIFFERENTIAL Routine 03/19/2024 10:46 AM [facility] Surgery follow-up PROTIME-INR Routine 03/19/2024 10:46 AM [facility] Surgery follow-up PET/CT FDG SKULL TO THIGH Schedule Routine, Read Routine (OP Routine) 03/12/2024 8:38 AM [facility] Mass of ileum SCAN - LABS 03/07/2024 4:57 PM [facility] SCAN - RADIOLOGY/IMAGING 03/02/2024 11:26 AM [facility] SCAN - LABS 03/01/2024 11:55 AM [facility] SCAN - RADIOLOGY/IMAGING 02/26/2024 6:17 PM [facility] SCAN - LABS 02/26/2024 11:53 AM [facility] MRI SHOULDER LEFT W WO CONTRAST Schedule Routine, Read Routine (OP Routine) 02/10/2024 3:39 PM [facility] Chronic left shoulder pain CT LUNG CANCER SCREENING Schedule Routine, Read Routine (OP Routine) 02/10/2024 2:18 PM [facility] Personal history of nicotine dependence XR SHOULDER LEFT 2 OR MORE VIEWS Schedule Routine, Read Routine (OP Routine) 02/03/2024 12:59 PM CDT Chronic left shoulder pain PSA SCREEN Routine 01/28/2023 2:52 PM CDT Recurrent UTI Quadriparesis (HCC) Routine general medical examination at a [facility] from Last 3 Months or Most Recently Relevant to Health Maintenance Results * SCAN - PATHOLOGY (03/26/2024 8:11 AM [facility]) Result Patricio Mo MD Edited Result - Final * GI - RESULT (03/24/2024 5:09 PM [facility]) Anatomical Region Laterality Modality Other Result Patricio Mo MD Final Result * SCAN - PATHOLOGY (03/24/2024 3:32 PM [facility]) Result Patricio Mo MD Final Result * GI - RESULT (03/23/2024 2:27 PM [facility]) Anatomical Region Laterality Modality Other Result Patricio Mo MD Final Result * SCAN - LABS (03/21/2024 10:13 PM [facility]) Result Patricio Mo MD Final Result * SCAN - RADIOLOGY/IMAGING (03/21/2024 8:44 PM [facility]) Anatomical Region Laterality Modality Other Result Patricio Mo MD Final Result * SCAN - RADIOLOGY/IMAGING (03/21/2024 8:39 PM [facility]) Anatomical Region Laterality Modality Other us Jose Mo MD Final Result * (ABNORMAL) CBC with auto differential (03/19/2024 10:46 AM [facility]) Pathologist [facility] WBC 7.0 3.4 - 10.8 x10E3/uL [facility] [...] - 01 Blood 03/19/2024 10:4 6 AM [facility] 03/19/2024 Narrative [facility] - 03/20/2024 6:10 AM [facility] Performed at: ??01 - [facility] ??[id number] Souvenir Assembler: Flex Rivera PhD, Phone: ??[phone] Jose Mo MD LAB BLOOD ORDERABLES Final Re sult Performing Organization Address [facility] de Phone [facility] - * Protime-INR (03/19/2024 10:46 AM [facility]) INR 1.0 0.9 - 1.2 [facility] - 01 Comment: Reference interval is for non-anticoagulated patients. Suggested INR therapeutic range for Vitamin K antagonist therapy: ?? Standard Dose (moderate intensity ?therapeutic range): ? 2.0 - 3.0 ?? Higher intensity therapeutic range ? 2.5 - 3.5 PT 10.6 9.1 - 12.0 sec [facility] - 01 Blood 03/19/2024 10:4 6 AM [facility] 03/19/2024 Narrative [facility] - 03/20/2024 6:10 AM [facility] Performed at: ??01 - [facility] ??[id number] Souvenir Assembler: Flex Rivera PhD, Phone: ??[phone] Jose Mo MD LAB BLOOD ORDERABLES Final Re sult Performing Organization Address [facility] de Phone Number [facility] - * PET/CT FDG Skull to Thigh (03/12/2024 8:38 AM [facility]) Anatomical Region Laterality Modality N/A Positron Emissio n Tomography (PET) 03/12/2024 10:4 3 AM [facility] Impressions 03/12/2024 12:22 PM [facility] 1. ??Interval increase in size of a [...] Brittany Euceda M.D. Narrative 03/12/2024 12:22 PM [facility] EXAMINATION: TUMOR FDG-PET/CT IMAGING DATE OF STUDY: ??03/12/2024 SCANNER: [facility] N PET Vision (NV1). ??This is a high-resolution scanner, which [...] obtained. ??The study was interpreted on the [employer] workstation. ??The mean liver SUV (reported for quality assurance test program manager purposes) is 2.4. ?? The total scanned area was skull base to proximal thighs. Images of the body were obtained starting 55 minutes after injection of tracer. All reported SUVs are maximum SUVs, unless otherwise specified. COMPARISON: CT chest abdomen pelvis 02/26/2024 (available in [employer]) DESCRIPTORS OF LESION FDG AVIDITY: Minimal: ? [...] FDG-PET/CT IMAGING DATE OF STUDY: 03/12/2024 SCANNER: [facility] Cold Crate (NV1). This is a high-resolution scanner, which [...] obtained. The study was interpreted on the [employer] workstation. The mean liver SUV (reported for quality assurance test program manager purposes) is 2.4. The total scanned area [...] it. Electronically signed by: Brittany Euceda M.D. us Jose Mo MD IM PET PROCEDURES Final Resu lt * SCAN - LABS (03/07/2024 4:57 PM [facility]) us Jose Mo MD Final Result * SCAN - RADIOLOGY/IMAGING (03/02/2024 11:26 AM [facility]) Anatomical Region Laterality Modality Other us Jose Mo MD Final Result * SCAN - LABS (03/01/2024 11:55 AM [facility]) us Jose Mo MD Final Result * SCAN - RADIOLOGY/IMAGING (02/26/2024 6:17 PM [facility]) Anatomical Region Laterality Modality Other Result Patricio Mo MD Final Result * SCAN - LABS (02/26/2024 11:53 AM [facility]) Result Patricio Mo MD Final Result * MRI Shoulder Left W WO Contrast (02/10/2024 3:39 PM [facility]) Anatomical Region Laterality Modality Upper Extremities Left Magnetic Reson ance 02/10/2024 4:55 PM [facility] Impressions 02/10/2024 4:59 PM [facility] 1. ??Partial-thickness articular sided tear of the anterior footplate of the supraspinatus tendon with associated mild fatty infiltration of the supraspinatus. 2. ??Moderate acromioclavicular osteoarthritis Dictated by: Jigar Mcintyre MD The radiology attending physician has personally reviewed this study, and had reviewed and/or edited this written report and agrees with it. Electronically signed by: Sohail Reynolds M.D. Narrative 02/10/2024 4:59 PM [facility] EXAMINATION: MRI SHOULDER LEFT W WO CONTRAST HISTORY: ??Shoulder pain FINDINGS: Comparison radiographs 02/03/2024. MR examination of the left shoulder was performed with a local coil before and after the uneventful administration of 20 mL of gadolinium intravenous contrast. Transverse, oblique coronal, and oblique sagittal short TR/TE and fast spin-echo images are obtained. There is a type 2 acromion. The coracoacromial ligament is normal. There is no subacromial spur. There is moderate acromioclavicular joint osteoarthritis. There is mild subacromial subdeltoid bursitis with mild associated enhancement. There is partial-thickness articular sided tear of the anterior footplate of the supraspinatus tendon. ??The subscapularis and infraspinatus are intact The rotator cuff muscle bulk is normal with mild fatty infiltration of the supraspinatus. The subscapularis is intact. The supraspinatus and infraspinatus cuff tendons are intact without evidence of tendinopathy or tear. On this nonarthrographic evaluation, ??the superior labrum and bicipital anchor appear intact. The intra-articular biceps tendon is normal. The labrum below the equator is normal. There is no glenohumeral chondrosis. There is a physiologic amount of fluid within the glenohumeral joint. No loose bodies are identified. The bone marrow signal is normal apart from enthesopathic cysts. Procedure Note Sohail Reynolds MD - 02/10/2024 EXAMINATION: MRI SHOULDER LEFT W WO CONTRAST HISTORY: Shoulder pain FINDINGS: Comparison radiographs 02/03/2024. MR examination of the left shoulder was performed with a local coil before and after the uneventful administration of 20 mL of gadolinium intravenous contrast. Transverse, oblique coronal, and oblique sagittal short TR/TE and fast spin-echo images are obtained. There is a type 2 acromion. The coracoacromial ligament is normal. There is no subacromial spur. There is moderate acromioclavicular joint osteoarthritis. There is mild subacromial subdeltoid bursitis with mild associated enhancement. There is partial-thickness articular sided tear of the anterior footplate of the supraspinatus tendon. The subscapularis and infraspinatus are intact The rotator cuff muscle bulk is normal with mild fatty infiltration of the supraspinatus. The subscapularis is intact. The supraspinatus and infraspinatus cuff tendons are intact without evidence of tendinopathy or tear. On this nonarthrographic evaluation, the superior labrum and bicipital anchor appear intact. The intra-articular biceps tendon is normal. The labrum below the equator is normal. There is no glenohumeral chondrosis. There is a physiologic amount of fluid within the glenohumeral joint. No loose bodies are identified. The bone marrow signal is normal apart from enthesopathic cysts. IMPRESSION: 1. Partial-thickness articular sided tear of the anterior footplate of the supraspinatus tendon with associated mild fatty infiltration of the supraspinatus. 2. Moderate acromioclavicular osteoarthritis Dictated by: Jigar Mcintyre MD The radiology attending physician has personally reviewed this study, and had reviewed and/or edited this written report and agrees with it. Electronically signed by: Sohail Reynolds M.D. Jose Mo MD IMG MRI PROCEDURES Final Resu lt * CT Lung Cancer Screening (02/10/2024 2:18 PM [facility]) Anatomical Region Laterality Modality Chest N/A Computed Tomogra phy 02/10/2024 2:55 PM [facility] Impressions 02/10/2024 3:14 PM [facility] LungRADS Category 2 (benign). ??Recommend Low dose [...] Cal Currie M.D. Narrative 02/10/2024 3:14 PM [facility] EXAMINATION: ??Lung cancer screening CT of the [...] by: Cal Currie M.D. Jose Mo MD [facility] CT PROCEDURES Final Resul t * XR Shoulder Left 2 or More [...] by: Dolly Stack MD Jose Mo MD [facility] XR PROCEDURES Final Resul t * PSA screen (01/28/2023 2:52 PM CDT) PSA 0.5 0.0 - 4.0 ng/mL [facility] - 01 Comment: Job ECLIA methodology. According to the [place] [employer], Serum PSA should decrease and remain at undetectable levels after radical prostatectomy. The AUA defines biochemical recurrence as an initial PSA value 0.2 ng/mL or greater followed by a subsequent confirmatory PSA value 0.2 ng/mL or greater. Values obtained with different assay methods or kits cannot be used interchangeably. Results cannot be interpreted as absolute evidence of the presence or absence of malignant disease. Blood 01/28/2023 2:52 PM CDT 01/28/2023 Narrative [facility] - 01/29/2023 9:12 AM CDT Performed at: ??01 - [facility] [address] ??[id number] Souvenir Assembler: Flex Rivera PhD, Phone: ??[phone] us Jose Mo MD LAB BLOOD ORDERABLES Final Re sult [facility] - 01 from Last 3 Months or Most Recently Relevant to Health Maintenance Insurance [facility] Advance Directives For more information, please contact: [phone] * Full Code (Latest Code Status on File) Date Activated Date Inactivated Comments 07/28/2018 4:39 PM 07/30/2018 8:13 PM * Full Code Date Activated Date Inactivated Comments 07/28/2018 4:39 PM 07/28/2018 4:39 PM * Full Code Date Activated Date Inactivated Comments 06/11/2018 4:14 PM 06/18/2018 8:51 PM Care Teams Student Financial Services Counselor Relationship Specialty Start Date End Date Jose Mo MD [address] [facility] [address] [address] [facility] - General 08/22/18 Jose Mo MD [address] [facility] [address] [place] [address] 08/22/18
--- OUTSIDE RECORDS SUMMARY | 2024-03-26 21:30 | XMS_ITS | Encounter Summary ---
Author Organization [facility] Address [address] [place] [address] Care Team Providers Care Route Delivery Service Driver Name Role Phone Jose Mo MD Primary Care Provider Jose Mo MD Unavailable [phone] Encounter Details Date Type Department Care Team (Late st Contact Info) Description 03/07/2024 Orders Only [facility] [address] [facility] [address] [place] [address] Jose Mo MD [address] [facility] [address] [place] [address] Social History Tobacco Use Types [...] on file Legal 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 Gender Identity Male 04/18/2020 9:24 AM NUT BLANKER OPERATOR Sexual Orientation Straight 04/18/2020 9: 24 AM NUT BLANKER OPERATOR documented as of this encounter Plan of Treatment Not on file documented as of this encounter Procedures Procedure Name Priority Date/Time Associated Diagnosis Comments SCAN - LABS 03/07/2024 4:57 PM NUT BLANKER OPERATOR documented in this encounter Results * SCAN - LABS (03/07/2024 4:57 PM NUT BLANKER OPERATOR) us Jose Mo MD Final Result documented in this encounter Visit Diagnoses Not on filedocumented in this encounter Care Teams Route Delivery Service Driver Relationship Specialty Start Date End Date Jose Mo MD [address] [facility] [address] [address] PCP - General 08/22/18 Jose Mo MD [address] [facility] [address] [place] [address] 08/22/18 documented as of this encounter
--- OUTSIDE RECORDS SUMMARY | 2024-03-26 21:30 | XMS_ITS | Encounter Summary ---
Author Organization [facility] Address [address] [facility] [place] [place] [address] Care Team Providers Care Gift Packer Name Role Phone Jose Mo MD Primary Care Provider [phone] Encounter Details Date Type Department Care Team (Late st Contact Info) Description 11/04/2023 Lab Requisition [facility] - Derm[facility] Lab [address] [facility] [place] [id number] Reyes Ragland MD [address] [place] [address] Social History Tobacco Use Types [...] CDT) Case Report Dermatopathology Report ? Case: [id number] ? Authorizing Provider: ??Reyes Ragland MD ?Collected: [...] characteristic determined by the Dermatopathology Laboratory at [facility], directed by Dr. Omid Johnson. These tests need not be, and therefore are not, approved by the [place] Food and Drug Administration. The tests are used for clinical purposes. Billing Codes Specimen Charges Stain Charges 91700 1 4 2:47 PM CDT DERMATOPATHOLOGY LABORATORY Embedded Images 4 2:47 PM CDT DERMATOPATHOLOGY LABORATORY Pathology/Cytolog y TISSUE SPECIMEN FROM SKIN / Unknown 11/03/2023 11/05/2023 6:48 AM CDT Reyes Ragland MD LAB - PATHOLOGY/CYTO LOGY ORDERABLES DERMATOPATHOLOGY LABORATORY [facility] Department of Dermatology [address] [phone] documented in this encounter Visit Diagnoses Not on filedocumented in this encounter Care Teams Gift Packer Relationship Specialty Start Date End Date Jose Mo MD PCP - General 03/21/08 documented as of this encounter
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
--- OUTSIDE RECORDS SUMMARY | 2024-03-26 21:30 | XMS_ITS | Encounter Summary ---
Author Organization [facility] Healthcare Address [address] [place] [address] Care Team Providers Care Paedodontist Name Role Phone Jose Mo MD Primary Care Provider [phone] Jose Mo MD Unavailable [phone] Reason for Visit * MRI/CAT/PET Scan (Routine) - Closed Specialty Diagnoses / Procedures Referred By Contac t Referred To Contact Radiology Diagnoses Chronic left shoulder pain Procedures MRI Shoulder Left W WO Contrast MRI Shoulder Right W WO Contrast Jose Mo MD [address] [facility] [address] [address] Phone: tel: fax: [address] [address] Referral ID Status Reason Start Date Expiration Date Visits Re quested Visits Authorized [id number] Closed 02/04/2024 03/05/2025 1 1 Encounter Details Date Type Department Care Team (Latest Contact Info) Description 02/10/2024 1:05 PM WORKING MANAGER - 02/10/2024 11:59 PM WORKING MANAGER Hospital Encounter [facility] [address] [place] [address] Jose Mo MD [address] [id number] Chronic left shoulder pain Discharge Disposition: Discharge [...] on file Legal Sex Male 6:24 PM WORKING MANAGER Gender Identity Male 04/18/2020 9:24 AM WORKING MANAGER Sexual Orientation Straight 04/18/2020 9: 24 AM WORKING MANAGER documented as of this encounter Medications at [...] Procedure Name Priority Date/Time Associated Diagnosis Comments MRI SHOULDER LEFT W WO CONTRAST Schedule Routine, Read Routine (OP Routine) 02/10/2024 3:39 PM WORKING MANAGER Chronic left shoulder pain documented in this encounter Results * MRI Shoulder Left W WO Contrast (02/10/2024 3:39 PM WORKING MANAGER) Anatomical Region Laterality Modality Upper Extremities Left Magnetic Reson ance 02/10/2024 4:55 PM WORKING MANAGER Impressions 02/10/2024 4:59 PM WORKING MANAGER 1. ??Partial-thickness articular sided tear of the anterior footplate of the supraspinatus tendon with associated mild fatty infiltration of the supraspinatus. 2. ??Moderate acromioclavicular osteoarthritis Dictated by: Jigar Mcintyre MD The radiology attending physician has personally reviewed this study, and had reviewed and/or edited this written report and agrees with it. Electronically signed by: Sohail Reynolds M.D. Narrative 02/10/2024 4:59 PM WORKING MANAGER EXAMINATION: MRI SHOULDER LEFT W WO CONTRAST [...] Sohail Reynolds M.D. us Jose Mo MD IM MRI PROCEDURES Final Resu lt documented in this encounter Visit Diagnoses Diagnosis Chronic left shoulder pain Pain in joint, shoulder region documented in this encounter Administered Medications Inactive Administered Medications - up to 3 most recent administrations Medication Order MAR Action Action Date Dose Rate Site gadoterate meglumine injection 20 mL 20 mL, intravenous, Once in imaging, contrast, Starting on Fri02/10/24 at 1539, For 1 dose Contrast Given 02/10/2024 3:39 PM WORKING MANAGER 20 mL Right Antecubital documented in this encounter Orders Medications Ordered That Solomon ht Not Have Been Administered Count Last Ordered Date First Ordered Date gadoterate meglumine injection 20 mL 1 08/2023 documented in this encounter Care Teams Paedodontist Relationship Specialty Start Date End Date Jose Mo MD [address] [address] PCP - General 08/22/18 Jose Mo MD [address] [address] 08/22/18 documented as of this encounter
--- OUTSIDE RECORDS SUMMARY | 2024-03-26 21:30 | XMS_ITS | Clinical Summary ---
Author Organization [facility] Address [address] [place] [address] Care Team Providers Care Stock Worker And Deliverer Name Role Phone Jose Mo MD Primary Care Provider [phone] Source Comments [facility],non-owned Affiliates and Associated Physician Practices is amultiple site organization consisting of ambulatory clinics and hospital sitesin [place], [place], [place] and [place]. This disclosure is being madepursuant to the Care Everywhere program and may not contain all information available regarding this patient. Last updated 17.[facility] Active Problems Problem Noted Date Diagnosed Date Mesenteric mass 03/23/2024 Encounters Date Type Department Care Team Description 03/24/2024 Lab Requisition [facility] - Pathology Lab [address] [place] [id number] Weston Garces MD Illness, unspecified from Last [...] Comments PATHOLOGY TISSUE Routine 03/23/2024 1:43 PM FARM MARKETER Illness, unspecified from Last 3 Months Results * PATHOLOGY TISSUE (03/23/2024 1:43 PM FARM MARKETER) Case Report Surgical Pathology Report ? Case: [id number] ? Authorizing Provider: ??Weston Garces MD ?Collected: ? 03/23/2024 01:43 PM ? Ordering Location: ? [facility] - ??Received: ?03/24/2024 02:17 PM ? Pathology Lab ? Pathologist: ? Dk Enciso MD ? Specimen: ?Gastric Biopsy ? 03/25/2024 4:23 PM [facility] Final Diagnosis Ileal mass, biopsy: - Diffuse large B-cell lymphoma, non-germinal center derived 03/25/2024 4:23 PM [facility] Microscopic Description and Comment The H&E stained sections show a mucosal infiltrate of sheets of large lymphoid cells with hyperchromatic chromatin and few interspersed apoptotic cells. A low-grade component is not appreciated. Immunohistochemistry performed at [facility] Pathology shows the lymphoma cells to be [...] epithelial and endothelial nuclei. 03/25/2024 4:23 PM [facility] Clinical History Ilial mass. 03/25/2024 4:23 PM [facility] Materials Received Received are 2 slide(s) and 1 block(s) labeled [id number] along with a copy of the outside pathology report. [place] [address]. All original materials are returned to the referring institution, along with a copy of our final report. 03/25/2024 4:23 PM [facility] Pathologist Location at [facility] 03/25/2024 4:23 PM [facility] Disclaimer The performance characteristics of all immunohistochemical and indirect immunofluorescence stains (if any) cited in this report were determined by the Histopathology Laboratory of [facility]. Some of these tests were developed by [...] the attending (teaching) pathologist. 03/25/2024 4:23 PM [facility] Embedded Images 03/25/2024 4:23 PM [facility] Pathology/Cytolo gy GASTRIC BIOPSY SPECIMEN / Unknown 03/23/2024 1:43 PM FARM MARKETER 03/24/2024 2:17 PM FARM MARKETER Weston Garces MD LAB - PATHOLOGY/CYTO LOGY ORDERABLES [facility] [address] [phone] from Last 3 Months Care Teams Stock Worker And Deliverer Relationship Specialty Start Date End Date Jose Mo MD PCP - General 03/21/08
--- OUTSIDE RECORDS SUMMARY | 2024-03-26 21:31 | XMS_ITS | Encounter Summary ---
Author Organization [facility] Address [address] [place] [address] Phone Care Team Providers Care Staffing Director Name Role Phone Jose Mo MD Primary Care Provider [phone] Jose Mo MD Unavailable [phone] Reason for Referral * Durable Medical Equipment (Routine) - Closed Specialty Diagnoses / Procedures Referred By Barbara t Referred To Contact Diagnoses Instability of left knee joint [place] [address] [place] [address] Phone: tel: fax: [facility] (All Locations) Referral ID Status Reason Start Date Expiration Date Visits Re quested Visits Authorized [id number] Closed 08/13/2022 09/12/2023 1 1 Reason for Visit * Reason Comments Follow-up Encounter Details Date Type Department Care Team (Late st Contact Info) Description 08/13/2022 3:50 PM CDT Office Visit [facility] Orthopaedic Surgery [address] [facility] [address] [place] [address] [place] [address] [place] [address] Other tear of medial meniscus of left knee as current injury, subsequent encounter (Primary Dx); Instability of left knee joint Social History Tobacco Use Types Packs/Day Years Used Date Smoking Tobacco: Former Cigarettes - 2018 Smokeless Tobacco: Never Alcohol Use [...] on one occasion? 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 Gender Identity Male 04/18/2020 9:24 AM MILLINERY WORKER Sexual Orientation Straight 04/18/2020 9: 24 AM MILLINERY WORKER documented as of this encounter Last Filed Vital Signs Vital Sign Reading Time Taken Comments Blood Pressure - - Pulse - - Temperature - - Respiratory Rate - - Oxygen Saturation - - Inhaled Oxygen Concentration - - Weight 115.7 kg (255 lb) 08/13/2022 4:30 PM CDT Height 172.7 cm (5' 7.99 ) 08/13/2022 4:30 PM CD T Body Mass Index 38.78 08/13/2022 4:30 PM CDT documented in this encounter Progress Notes * Avi Diamond - 08/13/2022 3:50 PM CDT The patient was measure for a LEFT MEDIAL WET PROCESS MILLER HEAD knee brace. The patients measurements are as followed: Knee offset: -5 Knee width: 133 Thigh: 23 Calf: 20 The patient decided that they would like to speak to insurance before ordering the brace due to theprice of the brace. The patient will reach out to [facility] after speaking to insurance. They whereinstructed to call [phone]. Cosigned by Rg Ye IV, MD at 08/13/2022 6:53 PM CDT * Rg Ye IV, MD - 08/13/2022 3:50 PM CDT Interim history: Making his returns today in regards to his left knee. He still gets these intermittent episodes of catching in the knee giving out. Physical examination: Left knee skin is intact. Medial joint line tenderness. 0-120 degrees of flexion. Ligamentously stable. Imaging: I independently reviewed the MRI of his left knee obtained today which shows what appears to be an ossicle attached to the posterior root of the medial meniscus which is unstable off of the tibia. Noobvious meniscus tear. Trace effusion. No obvious ligament tear. Mild chondrosis in the lateral and patellofemoral compartments. Impression: Left knee unstable posterior medial meniscus root attached to an ossicle Plan: I went over the MRI with Angus and his . She had a posterior medial meniscus root repair withme. They understand what the recovery requires. It is not clear that he could tolerate the recoveryfrom a root repair. Therefore I think the only surgical option would be debridement but I explainedthat that could actually make his symptoms worse and certainly would put him at higher risk for arthritis. We had a lengthy discussion about the pros and cons of operative versus nonsurgical treatment. In the end, they agreed that it would be appropriate to attempt to maximize nonsurgical treatmentwith a medial insulation blanket maker brace to try to stabilize the knee and minimize his symptoms. I can see him back on an as-needed basis. They had all their questions answered and appears comfortable with this plan. documented in this encounter Plan of Treatment Not on file documented as of this encounter Visit Diagnoses Diagnosis Other tear of medial meniscus of left knee as current injury, subsequent encounter- Primary Instability of left knee joint documented in this encounter Orders General Supply Count Last Ordered Date First Or dered Date MISCELLANEOUS DME 1 08/13/2022 documented in this encounter Care Teams Staffing Director Relationship Specialty Start Date End Date Jose Mo MD [address] [address] PCP - General 08/22/18 Jose Mo MD [address] [address] 08/22/18 documented as of this encounter
--- OUTSIDE RECORDS SUMMARY | 2024-03-26 21:31 | XMS_ITS | Encounter Summary ---
Author Organization [facility] Address [address] [place] [address] Care Team Providers Care Research Technician Name Role Phone Jose Mo MD Primary Care Provider Jose Mo MD Unavailable [phone] Encounter Details Date Type Department Care Team (Late st Contact Info) Description 05/28/2022 [facility] [address] [facility] [address] [place] [address] Jose Mo MD [address] [facility] [address] [place] [address] Social History Tobacco Use Types [...] on file Legal Sex Male 6:24 PM RCIS Gender Identity Male 04/18/2020 9:24 AM RCIS Sexual Orientation Straight 04/18/2020 9: 24 AM RCIS documented as of this encounter Ordered Prescriptions Prescription Sig Dispense Quantity Refills Last Filled Start Date End Date amoxicillin-clavul anate (AUGMENTIN) 875-125 mg per tablet Take 1 tablet by mouth 2 (two) times a day for 10 days 20 tablet 05/28/2022 06/07/2022 documented in this encounter Miscellaneous Notes * Telephone Encounter - Jose Mo MD - 05/28/2022 10:42 AM CST Sent in augmentin * Telephone Encounter - Christine Buchanan MA - 05/28/2022 9:50 AM CST Symptoms (primary and all associated):. Pt has sinus congestion and cough from drainage, chills. Girl friend ill as well and she was placed augmentin. No positive covid test Asking for abx Onset/Frequency:. Yesterday Temperature:.no Recent POCT testing (Strep/Flu/COVID/etc.):. Recent lab results:. Recent B/P or SPO2 results:. Current treatments (both OTC and RX):. Current dosage of insulin/Coumadin:. Last office visit:. Preferred phone:. Confirm pharmacy:. [facility] Allergies reviewed:.sulfa documented in this encounter Plan of Treatment Not on file documented as of this encounter Visit Diagnoses Not on filedocumented in this encounter Care Teams Research Technician Relationship Specialty Start Date End Date Jose Mo MD [address] [address] PCP - General 08/22/18 Jose Mo MD [address] [address] 08/22/18 documented as of this encounter
--- OUTSIDE RECORDS SUMMARY | 2024-03-26 21:31 | XMS_ITS | Encounter Summary ---
Author Organization [facility] Healthcare Address [address] [place] [address] Care Team Providers Care Carpet Sewer Name Role Phone Jose Mo MD Primary Care Provider [phone] Jose Mo MD Unavailable Reason for Referral * Diagnostic Imaging (Routine) - Closed Specialty Diagnoses / Procedures Referred By Barbara goldman Referred To Contact Diagnoses Testicular lesion Procedures US Scrotum W Limited Doppler (C) Jhonathan Helm MD [address] [place] [address] Phone: tel: fax: [address] [address] Referral ID Status Reason Start Date Expiration Date Visits Re quested Visits Authorized [id number] Closed 02/21/2022 03/23/2023 1 1 CIPAL WEB DEVELOPER Reason for Visit * Diagnostic Imaging (Routine) - Closed Specialty Diagnoses / Procedures Referred By Barbara goldman Referred To Contact Diagnoses Testicular lesion Procedures US Scrotum W Limited Doppler (C) Jhonathan Helm MD [address] [place] [address] Phone: tel: fax: [address] [phone] Referral ID Status Reason Start Date Expiration Date Visits Re quested Visits Authorized [id number] Closed 02/21/2022 03/23/2023 1 1 Encounter Details Date Type Department Care Team (Latest Contact Info) Description 03/14/2022 10:30 AM PRINCIPAL WEB DEVELOPER - 03/14/2022 11:59 PM PRINCIPAL WEB DEVELOPER Hospital Encounter [address] [address] Testicular lesion Discharge Disposition: Discharge to home or self [...] on file Legal Sex Male 6:24 PM PRINCIPAL WEB DEVELOPER Gender Identity Male 04/18/2020 9:24 AM PRINCIPAL WEB DEVELOPER Sexual Orientation Straight 04/18/2020 9: 24 AM PRINCIPAL WEB DEVELOPER documented as of this encounter Medications at Time of Discharge ascorbic acid (VITAMIN C) 1,000 mg tablet Take 4 tablets (4,000 mg total) by mouth daily 9 bisacodyl (DULCOLAX) 10 mg suppositoryIndic ations:constipat ion Insert 1 suppository (10 mg total) into the rectum daily as needed for constipation (2nd line) 12 suppository 9 cyclobenzaprine (FLEXERIL) 10 mg tablet Take 1 tablet (10 mg total) by mouth 3 (three) times a day as needed for muscle spasms for muscle spasms 30 tablet 1 2 diphenhydrAMINE (BENADRYL) 25 mg capsuleIndicatio ns:Urticaria Take 1 tablet/capsule (25 mg total) by mouth every 6 (six) hours as needed for itching [address] (NexIUM) 40 mg capsuleIndicatio ns:Treatment of Non-Bleeding Gastric Disorder Take 1 capsule (40 mg total) by mouth daily before breakfast 0 ibuprofen (ADVIL,MOTRIN) 800 mg tabletIndication s:Anti-inflammat ory Take 1 tablet (800 mg total) by mouth every 6 (six) hours as needed for pain miconazole 2 % powder Apply 1 g (1 application total) topically as needed psyllium, aspartame, SF (METAMUCIL SF) 3.4 gram packetIndication s:constipation Take 1 packet by mouth daily ciprofloxacin (CIPRO) 500 mg tablet Take 1 tablet (500 mg total) by mouth 2 (two) times a day for 10 days 20 tablet 1 2 03/24/20 22 carBAMazepine XR (TEGretol XR) 200 mg 12 hr tablet TAKE 1 TABLET BY MOUTH FIVE TIMES DAILY DIRECTED 450 tablet 3 2 11/26/19 23 fosfomycin (MONUROL) 3 gram packet DISSOLVE CONTENTS OF 1 PACKET IN LIQUID AND TAKE BY MOUTH ONCE FOR ONE DOSE 2 11/01/19 23 fosfomycin (MONUROL) 3 gram packetIndication s:Urinary Tract/Genitourin mukund Infection Take weekly for suppression, may repeat a dose in 72 hours is asymptomatic. 6 packet 6 2 04/09/19 23 furosemide (LASIX) 20 mg tablet Take 1 tablet (20 mg total) by mouth daily 90 tablet 2 04/17/19 23 hydrocortisone 2.5 % cream Apply topically daily as needed for rash 30 g 1 2 03/25/20 23 methenamine (HIPREX) 1 gram tablet TAKE 1 TABLET(1 GRAM) BY MOUTH TWICE DAILY WITH MEALS 60 tablet 11 2 01/28/20 23 mupirocin (BACTROBAN) 2 % ointment APPLY TOPICALLY TO THE AFFECTED AREA DAILY 22 g 1 11/26/19 23 pregabalin (LYRICA) 50 mg capsule Take 1 capsule (50 mg total) by mouth 3 (three) times a day 90 capsule 2 04/09/19 23 tadalafiL (CIALIS) 5 mg tablet Take 1 tablet (5 mg total) by mouth daily as needed for erectile dysfunction 10 tablet 3 1 03/25/20 22 tamsulosin (FLOMAX) 0.4 mg extended release capsuleIndicatio ns:benign prostatic hyperplasia with lower urinary tract sx Take 1 capsule (0.4 mg total) by mouth daily 30 capsule 1 2 04/09/19 23 documented as of this encounter Discharge Disposition Disposition Code Departure Means Destination Discharge to home or self care documented in this encounter Plan of Treatment Not on file documented as of this encounter Procedures Procedure Name Priority Date/Time Associated Diagnosis Comments US SCROTUM W LIMITED DOPPLER (C) Schedule Routine, Read Routine (OP Routine) 03/14/2022 11:12 AM PRINCIPAL WEB DEVELOPER Testicular lesion documented in this encounter Results * US Scrotum W Limited Doppler (C) (03/14/2022 11:12 AM PRINCIPAL WEB DEVELOPER) Anatomical Region Laterality Modality Testis N/A Ultrasound 03/14/2022 5:53 PM PRINCIPAL WEB DEVELOPER Narrative 03/14/2022 5:55 PM PRINCIPAL WEB DEVELOPER EXAM DESCRIPTION: ?? US SCROTUM W LIMITED DOPPLER (C) REASON FOR STUDY: ?? Testicular lesion reportedly seen on outside ultrasound at [facility] 2 years ago. ??Follow-up. TECHNIQUE: Morillo scale imaging of the scrotum and testes. COMPARISON: ?? None FINDINGS: RIGHT: TESTICLE: The right testicle measures ?? 3.5 cm x 2.9 cm x 2.2 ??cm. ?? The right testicle is normal in echotexture and contour with no mass. ??There is normal blood flow. EPIDIDYMIS: ?? The epididymis is normal in size and appearance. HYDROCELE OR VARICOCELE: ?? There is no evidence of significant hydrocele or varicocele. HERNIA OR EXTRA-TESTICULAR MASS: ?? There is no evidence of extratesticular mass. OTHER: ?? No other significant finding. LEFT: TESTICLE: The left testicle measures ?? 3.5 cm x 2.5 cm x 2.4 ??cm. ?? The left testicle is normal in echotexture and contour with no mass. ??There is normal blood flow. EPIDIDYMIS: ?? The epididymis is normal in size and appearance. HYDROCELE OR VARICOCELE: ?? There is no evidence of significant hydrocele or varicocele. HERNIA OR EXTRA-TESTICULAR MASS: ?? There is no evidence of extratesticular mass. OTHER: ?? No other significant finding. IMPRESSION: ?? Normal scrotal ultrasound. No evidence of testicular mass or torsion. THIS IS AN ELECTRONICALLY VERIFIED FINAL REPORT 03/14/2022 5:55 PM - Electronically signed by ??Jose Ontiveros M.D. KT: ASAF D: ??03/14/2022 5:55 PM T: ??03/14/2022 5:55 PM Report ID: [id number] Reading Location: ??[id number] Procedure Note Jose Ontiveros MD - 03/14/2022 EXAM DESCRIPTION: US SCROTUM W LIMITED DOPPLER (C) REASON FOR STUDY: Testicular lesion reportedly seen on outsideultrasound at [facility] 2 years ago. Follow-up. TECHNIQUE: Morillo scale imaging of the scrotum and testes. COMPARISON: None FINDINGS: RIGHT: TESTICLE: The right testicle measures 3.5 cm x 2.9 cm x 2.2 cm. Theright testicle is normal in echotexture and contour with no mass. There isnormal blood flow. EPIDIDYMIS: The epididymis is normal in size and appearance. HYDROCELE OR VARICOCELE: There is no evidence of significant hydroceleor varicocele. HERNIA OR EXTRA-TESTICULAR MASS: There is no evidence of extratesticular mass. OTHER: No other significant finding. LEFT: TESTICLE: The left testicle measures 3.5 cm x 2.5 cm x 2.4 cm. Theleft testicle is normal in echotexture and contour with no mass. There isnormal blood flow. EPIDIDYMIS: The epididymis is normal in size and appearance. HYDROCELE OR VARICOCELE: There is no evidence of significant hydroceleor varicocele. HERNIA OR EXTRA-TESTICULAR MASS: There is no evidence of extratesticular mass. OTHER: No other significant finding. IMPRESSION: Normal scrotal ultrasound. No evidence of testicular mass or torsion. THIS IS AN ELECTRONICALLY VERIFIED FINAL REPORT 03/14/2022 5:55 PM - Electronically signed by Jose Ontiveros M.D. KT: ASAF Report ID: [id number] Reading Location: [id number] Jhonathan Helm MD IMG US PROCEDURES Final Result documented in this encounter Visit Diagnoses Diagnosis Testicular lesion documented in this encounter Care Teams Carpet Sewer Relationship Specialty Start Date End Date Jose Mo MD [address] [address] PCP - General 08/22/18 Jose Mo MD [address] [facility] [address] 08/22/18 documented as of this encounter
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
--- OUTSIDE RECORDS SUMMARY | 2024-03-26 21:31 | XMS_ITS | Encounter Summary ---
Author Organization [facility] Address [address] [facility] [address] [place] [address] Phone Care Team Providers Care Vegetable Farmer Name Role Phone Jose Mo MD Primary Care Provider [phone] Jose Mo MD Unavailable [phone] Encounter Details Date Type Department Care Team (Late st Contact Info) Description 03/18/2022 Telephone [facility] Surgery [address] [place] [address] [address] [place] [address] Ragini Lind RMA Social History Tobacco Use Types Packs/Day Years [...] on file Legal Sex Male 6:24 PM FAGOT HEATER Gender Identity Male 04/18/2020 9:24 AM FAGOT HEATER Sexual Orientation Straight 04/18/2020 9: 24 AM FAGOT HEATER documented as of this encounter Miscellaneous Notes * Telephone Encounter - Ragini Lind RMA - 03/18/2022 10:26 AM CST LVM to review results with patient Franco ANURADHA T HEATER * Telephone Encounter - Ragini Lind RMA - 03/18/2022 10:26 AM CST ----- Message from Jhonathan Helm MD sent at 03/17/2022 8:52 AM FAGOT HEATER ----- Ragini, Please let him know his scrotal US was negative for any testicular lesions. He does not need any additional US at this time. Thanks, CASE T HEATER documented in this encounter Plan of Treatment Not on file documented as of this encounter Visit Diagnoses Not on filedocumented in this encounter Care Teams Vegetable Farmer Relationship Specialty Start Date End Date Jose Mo MD [address] [address] PCP - General 08/22/18 Jose Mo MD [address] [address] 08/22/18 documented as of this encounter
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
--- OUTSIDE RECORDS SUMMARY | 2024-03-26 21:31 | XMS_ITS | Encounter Summary ---
Author Organization [facility] Address [address] [facility] [address] [place] [address] Phone Care Team Providers Care Fire Hose Curer Name Role Phone Jose Mo MD Primary Care Provider [phone] Jose Mo MD Unavailable [phone] Encounter Details Date Type Department Care Team (Late st Contact Info) Description 04/09/2022 Orders Only [facility] [address] [place] [address] [address] [place] [address] Ania Topete, BAR STAFF [address] [facility] [address] [place] [address] Social History Tobacco Use Types [...] on file 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 6 packet 6 04/09/2022 10/31/2022 documented in this encounter Plan of Treatment Not on file documented as of this encounter Visit Diagnoses Not on filedocumented in this encounter Discontinued Medications Medication Sig Discontinue Reason Start Date End Da te pregabalin (LYRICA) 50 mg capsule Take 1 capsule (50 mg total) by mouth 3 (three) times a day 01/31/2022 04/09/2022 tamsulosin (FLOMAX) 0.4 mg extended release capsuleIndications:benig n prostatic hyperplasia with lower urinary tract sx Take 1 capsule (0.4 mg total) by mouth daily 05/25/2021 04/09/2022 fosfomycin (MONUROL) 3 gram packetIndications:Urinar y Tract/Genitourinary Infection Take weekly for suppression, may repeat a dose in 72 hours is asymptomatic. Reorder 02/25/2022 04/09/2022 documented as of this encounter Care Teams Fire Hose Curer Relationship Specialty Start Date End Date Jose Mo MD [address] [facility] [address] [place] [address] PCP - General 08/22/18 Jose Mo MD [address] [address] 08/22/18 documented as of this encounter
--- OUTSIDE RECORDS SUMMARY | 2024-03-26 21:31 | XMS_ITS | Encounter Summary ---
Author Organization [facility] Address [address] [place] [address] Care Team Providers Care Ship Fitter Name Role Phone Jose Mo MD Primary Care Provider [phone] Jose Mo MD Unavailable [phone] Encounter Details Date Type Department Care Team (Latest Contact Info) Description 04/03/2022 4:30 PM CONCRETE BUSTER OPERATOR - 04/03/2022 11:59 PM CONCRETE BUSTER OPERATOR Hospital Encounter [facility] [address] [place] [address] Discharge Disposition: Discharge to home or self [...] on file Legal Sex Male 6:24 PM CONCRETE BUSTER OPERATOR Gender Identity Male 04/18/2020 9:24 AM CONCRETE BUSTER OPERATOR Sexual Orientation Straight 04/18/2020 9: 24 AM CONCRETE BUSTER OPERATOR documented as of this encounter Medications at [...] s:constipation Take 1 packet by mouth daily carBAMazepine XR (TEGretol XR) 200 mg 12 [...] needed for erectile dysfunction 10 tablet 3 2 03/02/20 23 tamsulosin (FLOMAX) 0.4 mg extended release capsuleIndicatio [...] Name Priority Date/Time Associated Diagnosis Comments XR TRANSFER OF OUTSIDE FILMS Routine 04/03/2022 4:30 PM CONCRETE BUSTER OPERATOR Diagnosis unknown documented in this encounter Results * XR Outside Reference (04/03/2022 4:30 PM CONCRETE BUSTER OPERATOR) Impressions [facility] - 04/03/2022 4:30 PM CONCRETE BUSTER OPERATOR These images are for Reference purposes only and have not been reviewed by [facility]. ??There will be no report generated by a [facility] Radiologist. Narrative [facility] - 04/03/2022 4:30 PM CONCRETE BUSTER OPERATOR EXAMINATION: ??Images For Reference Purposes Only us Marito Higgins MD IMG XR PROCEDURES Final Res ult [facility] documented in this encounter Visit Diagnoses Not on filedocumented in this encounter Care Teams Ship Fitter Relationship Specialty Start Date End Date Jose Mo MD [address] [address] PCP - General 08/22/18 Jose Mo MD [address] [address] 08/22/18 documented as of this encounter
--- OUTSIDE RECORDS SUMMARY | 2024-03-26 21:31 | XMS_ITS | Encounter Summary ---
Author Organization [facility] Address [address] [place] [address] Care Team Providers Care Neuro Ophthalmologist Name Role Phone Jose Mo MD Primary Care Provider Jose Mo MD Unavailable [phone] Encounter Details Date Type Department Care Team (Late st Contact Info) Description 05/03/2022 [facility] [address] [facility] [address] [place] [address] Jose Mo MD [address] [facility] [address] [place] [address] Social History Tobacco Use Types [...] on file Legal Sex Male 6:24 PM SERVICE TECHNICIAN Gender Identity Male 04/18/2020 9:24 AM SERVICE TECHNICIAN Sexual Orientation Straight 04/18/2020 9: 24 AM SERVICE TECHNICIAN documented as of this encounter Miscellaneous Notes * Telephone Encounter - Celina Quintero MA - 05/03/2022 3:35 PM CST Pt aware/mk ICE TECHNICIAN * Telephone Encounter - Celina Quintero MA - 05/03/2022 3:35 PM CST ----- Message from Jose Mo MD sent at 05/03/2022 11:03 AM SERVICE TECHNICIAN ----- Urine entirely normal. Urology unlikely to do anything until recurrent infection documented. ICE TECHNICIAN documented in this encounter Plan of Treatment Not on file documented as of this encounter Visit Diagnoses Not on filedocumented in this encounter Care Teams Neuro Ophthalmologist Relationship Specialty Start Date End Date Jose Mo MD [address] [address] PCP - General 08/22/18 Jose Mo MD [address] [address] 08/22/18 documented as of this encounter
--- OUTSIDE RECORDS SUMMARY | 2024-03-26 21:31 | XMS_ITS | Encounter Summary ---
Author Organization 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 documented in this encounter Plan of Treatment Not on file documented as of this encounter Visit Diagnoses Not on filedocumented in this encounter Care Teams Hr Manager Relationship Specialty Start Date End Date Jose Mo MD [address] [address] PCP - General 08/22/18 Jose Mo MD [address] [address] 08/22/18 documented as of this encounter
--- OUTSIDE RECORDS SUMMARY | 2024-03-26 21:31 | XMS_ITS | Encounter Summary ---
Author Organization [facility] Healthcare Address [address] [place] [address] Care Team Providers Care Shuttle Repairer Name Role Phone Jose Mo MD Primary Care Provider [phone] Jose Mo MD Unavailable [phone] Reason for Referral * Diagnostic Imaging (Routine) - Closed Specialty Diagnoses / Procedures Referred By Barbara goldman Referred To Contact Diagnoses Pain in left foot Procedures XR Calcaneus Left 2+ View Ana Valverde DPM Phone: tel: fax: [address] [address] Referral ID Status Reason Start Date Expiration Date Visits Re quested Visits Authorized [id number] Closed 07/15/2022 08/14/2023 1 1 Reason for Visit * Diagnostic Imaging (Routine) - Closed Specialty Diagnoses / Procedures Referred By Barbara goldman Referred To Contact Diagnoses Pain in left foot Procedures XR Calcaneus Left 2+ View Ana Valverde DPM Phone: tel: fax: [address] [address] Referral ID Status Reason Start Date Expiration Date Visits Re quested Visits Authorized [id number] Closed 07/15/2022 08/14/2023 1 1 Encounter Details Date Type Department Care Team (Latest Contact Info) Description 07/15/2022 4:18 PM CDT - 07/15/2022 11:59 PM CDT Hospital Encounter [facility] [address] [place] [address] Pain in left foot Discharge Disposition: Discharge to home or self [...] on file Legal Sex Male 6:24 PM ORTHODONTIC TREATMENT COORDINATOR Gender Identity Male 04/18/2020 9:24 AM ORTHODONTIC TREATMENT COORDINATOR Sexual Orientation Straight 04/18/2020 9: 24 AM ORTHODONTIC TREATMENT COORDINATOR documented as of this encounter Medications at Time of Discharge ascorbic acid (VITAMIN C) 1,000 mg tablet Take 4 tablets (4,000 mg total) by mouth daily 06/19/2018 bisacodyl (DULCOLAX) 10 mg suppositoryIndi cations:constip ation Insert 1 suppository (10 mg total) into the rectum daily as needed for constipation (2nd line) 12 suppository 06/18/2018 cyclobenzaprine (FLEXERIL) 10 mg tablet Take 1 tablet (10 mg total) by mouth 3 (three) times a day as needed for muscle spasms for muscle spasms 30 tablet 1 01/31/2022 diphenhydrAMINE (BENADRYL) 25 mg capsuleIndicati ons:Urticaria Take 1 tablet/capsule (25 mg total) by mouth every 6 (six) hours as needed for itching 30 capsule 06/18/[address] (NexIUM) 40 mg capsuleIndicati ons:Treatment of Non-Bleeding Gastric Disorder Take 1 capsule (40 mg total) by mouth daily before breakfast 04/27/2019 ibuprofen (ADVIL,MOTRIN) 800 mg tabletIndicatio ns:Anti-inflamm atory Take 1 tablet (800 mg total) by mouth every 6 (six) hours as needed for pain miconazole 2 % powder Apply 1 g (1 application total) topically as needed psyllium, aspartame, SF (METAMUCIL SF) 3.4 gram packetIndicatio ns:constipation Take 1 packet by mouth daily carBAMazepine XR (TEGretol XR) 200 mg 12 hr tablet TAKE 1 TABLET BY MOUTH FIVE TIMES DAILY DIRECTED 450 tablet 3 10/18/2021 11/26/19 23 fosfomycin (MONUROL) 3 gram packet DISSOLVE CONTENTS OF 1 PACKET IN LIQUID AND TAKE BY MOUTH ONCE FOR ONE DOSE 02/10/2022 11/01/19 23 fosfomycin (MONUROL) 3 gram packetIndicatio ns:Urinary Tract/Genitouri nary Infection Take weekly for suppression, may repeat a dose in 72 hours is asymptomatic. 6 packet 6 04/09/2022 11/01/19 23 furosemide (LASIX) 20 mg tablet TAKE 1 TABLET(20 MG) BY MOUTH DAILY 90 tablet 04/17/2022 07/30/19 23 hydrocortisone 2.5 % cream Apply topically daily as needed for rash 30 g 1 04/24/2021 03/25/20 23 levoFLOXacin (LEVAQUIN) 750 mg tablet 06/16/2022 09/09/19 24 methenamine (HIPREX) 1 gram tablet TAKE 1 TABLET(1 GRAM) BY MOUTH TWICE DAILY WITH MEALS 60 tablet 11 01/21/2022 01/28/20 23 mupirocin (BACTROBAN) 2 % ointment APPLY TOPICALLY TO THE AFFECTED AREA DAILY 22 g 04/03/2021 11/26/19 23 Myrbetriq 25 mg tablet extended release 24 hr Take 1 tablet (25 mg total) by mouth daily 07/14/2022 02/03/20 24 tadalafiL (CIALIS) 5 mg tablet Take 1 tablet (5 mg total) by mouth daily as needed for erectile dysfunction 10 tablet 3 03/25/2022 03/02/20 23 documented as of this encounter Discharge Disposition Disposition Code Departure Means Destination Discharge to home or self care documented in this encounter Plan of Treatment Not on file documented as of this encounter Procedures Procedure Name Priority Date/Time Associated Diagnosis Comments XR CALCANEUS LEFT 2 OR MORE VIEWS Schedule Routine, Read Routine (OP Routine) 07/15/2022 4:27 PM CDT Pain in left foot documented in this encounter Results * XR Calcaneus Left 2+ View (07/15/2022 4:27 PM CDT) Anatomical Region Laterality Modality Lower Extremities, Foot Left Computed Radiography 07/15/2022 4:50 PM CDT Impressions 07/15/2022 4:50 PM CDT 1. ??No acute fracture of the left calcaneus. ??Subtalar alignment is maintained. 2. ??Prominent left retrocalcaneal enthesophyte. Electronically signed by: Jerrod Bird MD Narrative 07/15/2022 4:50 PM CDT EXAMINATION: XR CALCANEUS LEFT 2 OR MORE VIEWS HISTORY: ??Heel pain COMPARISONS: Radiographs 04/01/2022. FINDINGS: 2 radiographs of the left calcaneus were submitted for interpretation. ??No acute fracture. ??Subtalar alignment is maintained. ??Osseous vertebral swelling dorsal talar neck likely sequela of remote capsular injury. ??Prominent retrocalcaneal enthesophyte Procedure Note Jerrod Bird MD - 07/15/2022 EXAMINATION: XR CALCANEUS LEFT 2 OR MORE VIEWS HISTORY: Heel pain COMPARISONS: Radiographs 04/01/2022. FINDINGS: 2 radiographs of the left calcaneus were submitted for interpretation. No acute fracture. Subtalar alignment is maintained. Osseous vertebral swelling dorsal talar neck likely sequela of remote capsular injury. Prominent retrocalcaneal enthesophyte IMPRESSION: 1. No acute fracture of the left calcaneus. Subtalar alignment is maintained. 2. Prominent left retrocalcaneal enthesophyte. Electronically signed by: Jerrod Bird MD Ana Valverde DPM IMG XR PROCEDURES Final Result documented in this encounter Visit Diagnoses Diagnosis Pain in left foot Pain in soft tissues of limb documented in this encounter Care Teams Shuttle Repairer Relationship Specialty Start Date End Date Jose Mo MD [address] [address] PCP - General 08/22/18 Jose Mo MD [address] [address] 08/22/18 documented as of this encounter
--- OUTSIDE RECORDS SUMMARY | 2024-03-26 21:31 | XMS_ITS | Encounter Summary ---
Author Organization [facility] Healthcare Address [address] [place] [address] Care Team Providers Care Package Wrapper Name Role Phone Jose Mo MD Primary Care Provider [phone] Jose Mo MD Unavailable [phone] Encounter Details Date Type Department Care Team (Latest Contact Info) Description 04/03/2022 4:27 PM AIR CONDITIONER INSTALLER HELPER Hospital Encounter [facility] [address] [place] [address] Discharge Disposition: Discharge to home or self [...] on file Legal Sex Male 6:24 PM AIR CONDITIONER INSTALLER HELPER Gender Identity Male 04/18/2020 9:24 AM AIR CONDITIONER INSTALLER HELPER Sexual Orientation Straight 04/18/2020 9: 24 AM AIR CONDITIONER INSTALLER HELPER documented as of this encounter Medications at [...] XR TRANSFER OF OUTSIDE FILMS Routine 04/03/2022 4:27 PM AIR CONDITIONER INSTALLER HELPER Diagnosis unknown documented in this encounter Results * XR Outside Reference (04/03/2022 4:27 PM AIR CONDITIONER INSTALLER HELPER) Impressions [facility] - 04/03/2022 4:27 PM AIR CONDITIONER INSTALLER HELPER These images are for Reference purposes only and have not been reviewed by [facility]. ??There will be no report generated by a [facility] Radiologist. Narrative [facility] - 04/03/2022 4:27 PM AIR CONDITIONER INSTALLER HELPER EXAMINATION: ??Images For Reference Purposes Only us Marito Higgins MD IMG XR PROCEDURES Final Res ult [facility] documented in this encounter Visit Diagnoses Not on filedocumented in this encounter Care Teams Package Wrapper Relationship Specialty Start Date End Date Jose Mo MD [address] [address] PCP - General 08/22/18 Jose Mo MD [address] [address] 08/22/18 documented as of this encounter
--- OUTSIDE RECORDS SUMMARY | 2024-03-26 21:31 | XMS_ITS | Encounter Summary ---
Author Organization [facility] Address [address] [place] [address] Care Team Providers Care Rehab Manager Name Role Phone Jose Mo MD Primary Care Provider Jose Mo MD Unavailable Encounter Details Date Type Department Care Team (Late st Contact Info) Description 05/20/2022 [facility] [address] [facility] [address] [place] [address] Jose Mo MD [address] [facility] [address] [place] [address] Social History Tobacco Use Types [...] on file Legal Sex Male 6:24 PM AUTOTRANSFUSIONIST Gender Identity Male 04/18/2020 9:24 AM AUTOTRANSFUSIONIST Sexual Orientation Straight 04/18/2020 9: 24 AM AUTOTRANSFUSIONIST documented as of this encounter Miscellaneous Notes * Telephone Encounter - Celina Quintero MA - 05/20/2022 11:47 AM CST Pt aware/mk no more diarrhea TRANSFUSIONIST * Telephone Encounter - Celina Quintero MA - 05/20/2022 11:47 AM CST ----- Message from Jose Mo MD sent at 05/19/2022 7:30 AM AUTOTRANSFUSIONIST ----- C diff is negative, is he still having diarrhea? TRANSFUSIONIST documented in this encounter Plan of Treatment Not on file documented as of this encounter Visit Diagnoses Not on filedocumented in this encounter Care Teams Rehab Manager Relationship Specialty Start Date End Date Jose Mo MD [address] [address] PCP - General 08/22/18 Jose Mo MD [address] [address] 08/22/18 documented as of this encounter
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
--- OUTSIDE RECORDS SUMMARY | 2024-03-26 21:31 | XMS_ITS | Encounter Summary ---
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 Gender Identity Male 04/18/2020 9:24 AM PROJECT MANAGEMENT DIRECTOR Sexual Orientation Straight 04/18/2020 9: 24 AM PROJECT MANAGEMENT DIRECTOR documented as of this encounter Plan of Treatment Not on file documented as of this encounter Procedures Procedure Name Priority Date/Time Associated Diagnosis Comments SCAN - RADIOLOGY/IMAGING 03/23/2022 11:22 AM PROJECT MANAGEMENT DIRECTOR SCAN - RADIOLOGY/IMAGING 03/23/2022 11:22 AM PROJECT MANAGEMENT DIRECTOR documented in this encounter Results * SCAN - RADIOLOGY/IMAGING (03/23/2022 11:22 AM PROJECT MANAGEMENT DIRECTOR) Anatomical Region Laterality Modality Other Jose Mo MD Final Result * SCAN - RADIOLOGY/IMAGING (03/23/2022 11:22 AM PROJECT MANAGEMENT DIRECTOR) Anatomical Region Laterality Modality Other Jose Mo MD Final Result documented in this encounter Visit Diagnoses Not on filedocumented in this encounter Care Teams Turn Down Worker Relationship Specialty Start Date End Date Jose Mo MD [address] [address] PCP - General 08/22/18 Jose Mo MD [address] [address] 08/22/18 documented as of this encounter
--- OUTSIDE RECORDS SUMMARY | 2024-03-26 21:31 | XMS_ITS | Encounter Summary ---
Author Organization [facility] Address [address] [place] [address] Care Team Providers Care Air Quality Technician Name Role Phone Jose Mo MD Primary Care Provider [phone] Jose Mo MD Unavailable [phone] Reason for Referral * MRI/CAT/PET Scan (Routine) - Closed Specialty Diagnoses / Procedures Referred By Contac t Referred To Contact Radiology Diagnoses Chronic pain of left knee Procedures [place] [address] [place] [address] Phone: tel: fax: [facility] Referral ID Status Reason Start Date Expiration Date Visits Re quested Visits Authorized [id number] Closed 08/06/2022 09/05/2023 1 1 Reason for Visit * MRI/CAT/PET Scan (Routine) - Closed Specialty Diagnoses / Procedures Referred By Contac t Referred To Contact Radiology Diagnoses Chronic pain of left knee Procedures [place] [address] [place] [address] Phone: tel: fax: [facility] Referral ID Status Reason Start Date Expiration Date Visits Re quested Visits Authorized [id number] Closed 08/06/2022 09/05/2023 1 1 Encounter Details Date Type Department Care Team (Latest Contact Info) Description 08/13/2022 11:59 AM CDT - 08/13/2022 11:59 PM CDT Hospital Encounter [facility] [address] [place] [address] Chronic pain of left knee Discharge Disposition: Discharge to home or self [...] on file Legal Sex Male 6:24 PM STRIKE PLANNING APPLICATIONS Gender Identity Male 04/18/2020 9:24 AM STRIKE PLANNING APPLICATIONS Sexual Orientation Straight 04/18/2020 9: 24 AM STRIKE PLANNING APPLICATIONS documented as of this encounter Medications at [...] TABLET(20 MG) BY MOUTH DAILY 90 tablet 07/29/2022 10/10/19 23 hydrocortisone 2.5 % cream Apply topically [...] Name Priority Date/Time Associated Diagnosis Comments MRI KNEE LEFT WO CONTRAST Schedule Routine, Read Routine (OP Routine) 08/13/2022 12:47 PM CDT Chronic pain of left knee documented in this encounter Results * MRI Knee Left [...] Electronically signed by: Dolly Stack MD MD LISA Olmedo IV MRI PROCEDURES Fi nal Result documented in this encounter Visit Diagnoses Diagnosis Chronic pain of left knee documented in this encounter Care Teams Air Quality Technician Relationship Specialty Start Date End Date Jose Mo MD [address] [facility] [address] [place] [address] PCP - General 08/22/18 Jose Mo MD [address] [address] 08/22/18 documented as of this encounter
--- OUTSIDE RECORDS SUMMARY | 2024-03-26 21:31 | XMS_ITS | Encounter Summary ---
Author Organization [facility] Address [address] [place] [address] Phone Care Team Providers Care Appraiser Land Name Role Phone Jose Mo MD Primary Care Provider [phone] Jose Mo MD Unavailable [phone] Encounter Details Date Type Department Care Team (Late st Contact Info) Description 03/11/2022 Telephone [facility] Infectious Diseases [address] [place] [address] [address] [place] [address] Jacque Mendieta Social History Tobacco Use Types Packs/Day Years [...] on file Legal Sex Male 6:24 PM 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 Patient is on med, Fosfomycin, taken last Th, 03/07/22. Urine is cloudy, strong odor, frequency and burning. S/o thinks that the med, could make the sample a false-positive and feels a culture needs to be done. Would like to know if a culture will be run. TH CLUB MANAGER documented in this encounter Plan of Treatment Not on file documented as of this encounter Visit Diagnoses Not on filedocumented in this encounter Care Teams Appraiser Land Relationship Specialty Start Date End Date Jose Mo MD [address] [address] PCP - General 08/22/18 Jose Mo MD [address] [address] 08/22/18 documented as of this encounter
--- OUTSIDE RECORDS SUMMARY | 2024-03-26 21:31 | XMS_ITS | Encounter Summary ---
Author Organization [facility] Address [address] [place] [address] Care Team Providers Care I&C Tech Name Role Phone Jose Mo MD Primary Care Provider [phone] Jose Mo MD Unavailable [phone] Encounter Details Date Type Department Care Team (Late st Contact Info) Description 05/15/2022 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 ----- Message ----- From: Celina Quintero MA Sent: 05/14/2022 4:20 PM SUPERVISOR KEYMODULE ASSEMBLY To: Jose Mo MD Subject: FW: Diarrhea He was on cipro 04-09-22? ----- Message ----- From: Angus Jain Sent: 05/14/2022 1:36 PM SUPERVISOR KEYMODULE ASSEMBLY To: Enedelia Carranza [address] Clinical Pool Subject: Diarrhea Yes I am still having diarrhea. 2 times a day everyday since last friday. RVISOR KEYMODULE ASSEMBLY documented in this encounter Plan of Treatment Not on file documented as of this encounter Procedures Procedure Name Priority Date/Time Associated Diagnosis Comments CLOSTRIDIUM DIFFICILE TOXIN Routine 05/16/2022 3:00 PM SUPERVISOR KEYMODULE ASSEMBLY Diarrhea, unspecified type documented in this encounter Results * Clostridium difficile toxin Stool (05/16/2022 3:00 PM SUPERVISOR KEYMODULE ASSEMBLY) C difficile Toxins A+B, EIA Negative Negative [facility] - 01 Stool 05/16/2022 3:00 PM SUPERVISOR KEYMODULE ASSEMBLY 05/17/2022 Comment:ST Narrative [facility] - 05/18/2022 5:08 PM SUPERVISOR KEYMODULE ASSEMBLY Performed at: ??01 - [facility] [address], [place], [place] [id number] Business School Dean: Flex Rivera PhD, Phone: ??[phone] us Jose Mo MD LAB MICROBIOLOGY - GENERAL OR DERABLES Final Result [facility] 01 documented in this encounter Visit Diagnoses Diagnosis Diarrhea, unspecified type- Primary documented in this encounter Care Teams I&C Tech Relationship Specialty Start Date End Date Jose Mo MD [address] [id number] PCP - General 08/22/18 Jose Mo MD [address] [address] 08/22/18 documented as of this encounter
--- OUTSIDE RECORDS SUMMARY | 2024-03-26 21:31 | XMS_ITS | Encounter Summary ---
Author Organization [facility] Address [address] [place] [address] Care Team Providers Care Log Roller Name Role Phone Jose Mo MD Primary Care Provider Jose Mo MD Unavailable Encounter Details Date Type Department Care Team (Late st Contact Info) Description 01/24/2023 [facility] [address] [facility] [address] [place] [address] Jose Mo MD [address] [facility] [address] [place] [address] Social History Tobacco Use Types [...] on file Legal Sex Male 6:24 PM LACQUER MIXER Gender Identity Male 04/18/2020 9:24 AM LACQUER MIXER Sexual Orientation Straight 04/18/2020 9: 24 AM LACQUER MIXER documented as of this encounter Miscellaneous Notes * Telephone Encounter - Celina Quintero MA - 01/24/2023 2:29 PM CDT done * Telephone Encounter - Pati Gutierres - 01/24/2023 8:06 AM CDT Melissa called requesting to speak with you. Would not give any further information. Requesting a call back. documented in this encounter Plan of Treatment Not on file documented as of this encounter Visit Diagnoses Not on filedocumented in this encounter Care Teams Log Roller Relationship Specialty Start Date End Date Jose Mo MD [address] [address] PCP - General 08/22/18 Jose Mo MD [address] [address] 08/22/18 documented as of this encounter
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
--- OUTSIDE RECORDS SUMMARY | 2024-03-26 21:31 | XMS_ITS | Encounter Summary ---
Author Organization [facility] Address [address] [place] [address] Care Team Providers Care Coin Collector Name Role Phone Jose Mo MD Primary Care Provider [phone] Jose Mo MD Unavailable [phone] Encounter Details Date Type Department Care Team (Late st Contact Info) Description 09/24/2023 Orders Only [facility] [address] [facility] [address] [place] [facility] [place] [address] Celina Quintero, [place] [address] [place] [address] Social History Tobacco Use Types Packs/Day Years [...] on file Legal Sex Male 6:24 PM REGIONAL COORDINATOR Gender Identity Male 04/18/2020 9:24 AM REGIONAL COORDINATOR Sexual Orientation Straight 04/18/2020 9: 24 AM REGIONAL COORDINATOR documented as of this encounter Ordered Prescriptions Prescription Sig Dispense Quantity Refills Last Filled Start Date End Date azithromycin (ZITHROMAX) 250 mg tablet Take 2 tabs (500 mg) by mouth today, than 1 tab (250 mg) daily for 4 days. 6 tablet 09/24/2023 02/03/2024 documented in this encounter Plan of Treatment Not on file documented as of this encounter Visit Diagnoses Not on filedocumented in this encounter Care Teams Coin Collector Relationship Specialty Start Date End Date Jose Mo MD [address] [address] PCP - General 08/22/18 Jose Mo MD [address] [address] 08/22/18 documented as of this encounter
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
--- OUTSIDE RECORDS SUMMARY | 2024-03-26 21:31 | XMS_ITS | Encounter Summary ---
Author Organization [facility] Address [address] [place] [address] Care Team Providers Care Soft Work Wrapper Examiner Name Role Phone Jose Mo MD Primary Care Provider [phone] Jose Mo MD Unavailable Reason for Visit * Reason Onset Date Comments Diarrhea 03/18/2023 Encounter Details Date Type Department Care Team (Late st Contact Info) Description 03/18/2023 [facility] [address] [facility] [address] [facility] [place] [address] Jose Mo MD [address] [facility] [address] [place] [address] Diarrhea Social History Tobacco Use Types Packs/Day Years [...] on file Legal Sex Male 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 NESS PROGRAM MANAGER * Telephone Encounter - Pati Gutierres - 03/18/2023 11:23 AM WELLNESS PROGRAM MANAGER LVMTCB NESS PROGRAM MANAGER * Telephone Encounter - Jose oM MD - 03/18/2023 10:07 AM CST Please continue immodium, up to 4 times daily, and BRAT diet NESS PROGRAM MANAGER * Telephone Encounter - Pati Gutierres - 03/18/2023 9:39 AM WELLNESS PROGRAM MANAGER Symptoms (primary and all associated):.diarrhea, liquid no form to it 5:30 pm last night Midnight 6:30 am the morning 9:40 am Tried 2 tab of Imodium around 1:00 AM and 7:00 AM Onset/Frequency:.last night Temperature:.no No nausea, vomiting, abdominal pain Allergies: Sulfa, hydromorphone [facility] NESS PROGRAM MANAGER documented in this encounter Plan of Treatment Not on file documented as of this encounter Visit Diagnoses Not on filedocumented in this encounter Care Teams Soft Work Wrapper Examiner Relationship Specialty Start Date End Date Jose Mo MD [address] [address] PCP - General 08/22/18 Jose Mo MD [address] [address] 08/22/18 documented as of this encounter
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
--- OUTSIDE RECORDS SUMMARY | 2024-03-26 21:31 | XMS_ITS | Encounter Summary ---
Author Organization [facility] Address [address] [facility] [address] [place] [address] Phone Care Team Providers Care Oversize Load Pilot Escort Name Role Phone Jose Mo MD Primary Care Provider [phone] Jose Mo MD Unavailable [phone] Encounter Details Date Type Department Care Team (Late st Contact Info) Description 02/25/2022 Orders Only [facility] Infectious Diseases [address] [place] [address] [address] [place] [address] Ania Topete, COIL BINDER [address] [facility] [address] [place] [address] Social History Tobacco Use Types [...] on file Legal Sex Male 6:24 PM MAMMAL CONTROL AGENT Gender Identity Male 04/18/2020 9:24 AM MAMMAL CONTROL AGENT Sexual Orientation Straight 04/18/2020 9: 24 AM MAMMAL CONTROL AGENT documented as of this encounter Ordered Prescriptions Prescription Sig Dispense Quantity Refills Last Filled Start Date End Date fosfomycin (MONUROL) 3 gram packetIndications: Urinary Tract/Genitourinar y Infection Take weekly for suppression, may repeat a dose in 72 hours is asymptomatic . 6 packet 6 02/25/2022 04/09/2022 documented in this encounter Plan of Treatment Not on file documented as of this encounter Visit Diagnoses Not on filedocumented in this encounter Care Teams Oversize Load Pilot Escort Relationship Specialty Start Date End Date Jose Mo MD [address] [address] PCP - General 08/22/18 Jose Mo MD [address] [address] 08/22/18 documented as of this encounter
--- OUTSIDE RECORDS SUMMARY | 2024-03-26 21:31 | XMS_ITS | Encounter Summary ---
Author Organization [facility] Address [address] [place] [address] Care Team Providers Care Bombsight Specialist Name Role Phone Jose Mo MD Primary Care Provider [phone] Jose Mo MD Unavailable Encounter Details Date Type Department Care Team (Late st Contact Info) Description 04/01/2022 Orders Only [facility] [address] [facility] [address] [place] [address] Jose Mo MD [address] [facility] [address] [place] [address] Social History Tobacco Use Types [...] on file Legal Sex Male 6:24 PM SURVEYING OR SPATIAL SCIENCE TECHNICIAN Gender Identity Male 04/18/2020 9:24 AM SURVEYING OR SPATIAL SCIENCE TECHNICIAN Sexual Orientation Straight 04/18/2020 9: 24 AM SURVEYING OR SPATIAL SCIENCE TECHNICIAN documented as of this encounter Plan of Treatment Not on file documented as of this encounter Procedures Procedure Name Priority Date/Time Associated Diagnosis Comments SCAN - RADIOLOGY/IMAGING 04/01/2022 7:36 AM SURVEYING OR SPATIAL SCIENCE TECHNICIAN documented in this encounter Results * SCAN - RADIOLOGY/IMAGING (04/01/2022 7:36 AM SURVEYING OR SPATIAL SCIENCE TECHNICIAN) Anatomical Region Laterality Modality Other Jose Mo MD Final Result documented in this encounter Visit Diagnoses Not on filedocumented in this encounter Care Teams Bombsight Specialist Relationship Specialty Start Date End Date Jose Mo MD [address] [address] PCP - General 08/22/18 Jose Mo MD [address] [address] 08/22/18 documented as of this encounter
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
--- OUTSIDE RECORDS SUMMARY | 2024-03-26 21:31 | XMS_ITS | Encounter Summary ---
Author Organization [facility] Address [address] [place] [address] Care Team Providers Care Horticultural Worker Name Role Phone Jose Mo MD Primary Care Provider [phone] Jose Mo MD Unavailable [phone] Reason for Referral * Diagnostic Imaging (Routine) - Closed Specialty Diagnoses / Procedures Referred By Contac t Referred To Contact Diagnoses Left knee pain, unspecified chronicity Procedures XR Knee [place] [address] [place] [address] Phone: tel: fax: [facility] [place] Referral ID Status Reason Start Date Expiration Date Visits Re quested Visits Authorized [id number] Closed 08/02/2022 09/01/2023 1 1 Reason for Visit * Diagnostic Imaging (Routine) - Closed Specialty Diagnoses / Procedures Referred By Contac t Referred To Contact Diagnoses Left knee pain, unspecified chronicity Procedures XR Knee [place] [address] [place] [address] Phone: tel: fax: [facility] Referral ID Status Reason Start Date Expiration Date Visits Re quested Visits Authorized [id number] Closed 08/02/2022 09/01/2023 1 1 Encounter Details Date Type Department Care Team (Latest Contact Info) Description 08/06/2022 1:48 PM CDT - 08/06/2022 11:59 PM CDT Hospital Encounter [facility] [address] [place] [address] Left knee pain, unspecified chronicity Discharge Disposition: Discharge to home or self [...] on file Legal Sex Male 6:24 PM QUALITY TECHNICIAN FIBERGLASS Gender Identity Male 04/18/2020 9:24 AM QUALITY TECHNICIAN FIBERGLASS Sexual Orientation Straight 04/18/2020 9: 24 AM QUALITY TECHNICIAN FIBERGLASS documented as of this encounter Medications at [...] Name Priority Date/Time Associated Diagnosis Comments XR KNEE LEFT 3 VIEWS Schedule Routine, Read Routine (OP Routine) 08/06/2022 2:01 PM CDT Left knee pain, unspecified chronicity documented in this encounter Results * XR Knee Left 3 Views (08/06/2022 [...] in this encounter Visit Diagnoses Diagnosis Left knee pain, unspecified chronicity documented in this encounter Care Teams Horticultural Worker Relationship Specialty Start Date End Date Jose Mo MD [address] [place] [address] PCP - General 08/22/18 Jose Mo MD [address] [address] 08/22/18 documented as of this encounter
--- OUTSIDE RECORDS SUMMARY | 2024-03-26 21:31 | XMS_ITS | Encounter Summary ---
Author Organization [facility] Address [address] [place] [address] Phone Care Team Providers Care Client Services Coordinator Name Role Phone Jose Mo MD Primary Care Provider [phone] Jose Mo MD Unavailable [phone] Encounter Details Date Type Department Care Team (Late st Contact Info) Description 03/14/2022 Orders Only [facility] Infectious Diseases [address] [place] [address] [address] [place] [address] Ania Topete, HEAD SOFT SUGAR OPERATOR [address] [facility] [address] [place] [address] Social History Tobacco Use Types [...] on file Legal Sex Male 6:24 PM GED TUTOR Gender Identity Male 04/18/2020 9:24 AM GED TUTOR Sexual Orientation Straight 04/18/2020 9: 24 AM GED TUTOR documented as of this encounter Ordered Prescriptions Prescription Sig Dispense Quantity Refills Last Filled Start Date End Date ciprofloxacin (CIPRO) 500 mg tablet Take 1 tablet (500 mg total) by mouth 2 (two) times a day for 10 days 20 tablet 1 03/14/2022 03/24/2022 documented in this encounter Plan of Treatment Not on file documented as of this encounter Visit Diagnoses Not on filedocumented in this encounter Care Teams Client Services Coordinator Relationship Specialty Start Date End Date Jose Mo MD [address] [address] PCP - General 08/22/18 Jose Mo MD [address] [address] 08/22/18 documented as of this encounter
--- OUTSIDE RECORDS SUMMARY | 2024-03-26 21:31 | XMS_ITS | Encounter Summary ---
Author Organization [facility] Healthcare Address [address] [place] [address] Care Team Providers Care Paediatric Surgeon Name Role Phone Jose Mo MD Primary Care Provider [phone] Jose Mo MD Unavailable [phone] Reason for Referral * Diagnostic Imaging (Routine) - Closed Specialty Diagnoses / Procedures Referred By Contac t Referred To Contact Diagnoses Right foot pain Procedures XR Foot Right 3+ View Marito Higgins MD [address] [facility] [address] [place], [place] [address] Phone: tel: fax: [facility] Referral ID Status Reason Start Date Expiration Date Visits Re quested Visits Authorized [id number] Closed 03/25/2022 04/24/2023 1 1 P MACHINE OPERATOR Reason for Visit * Diagnostic Imaging (Routine) - Closed Specialty Diagnoses / Procedures [facility] Referred To Contact Diagnoses Right foot pain Procedures XR Foot Right 3+ View Marito Higgins MD [address] [facility] [address], [place] [address] Phone: tel: fax: [facility] Referral ID Status Reason Start Date Expiration Date Visits Re quested Visits Authorized [id number] Closed 03/25/2022 04/24/2023 1 1 Encounter Details Date Type Department Care Team (Latest Contact Info) Description 04/03/2022 12:50 PM SCOOP MACHINE OPERATOR - 04/03/2022 4:26 PM SCOOP MACHINE OPERATOR Hospital Encounter [facility] [address] [place] [address] Marito Higgins MD [address] [facility] [address] [place] [address] Right foot pain Discharge Disposition: Discharge to home or [...] on file Legal Sex Male 6:24 PM SCOOP MACHINE OPERATOR Gender Identity Male 04/18/2020 9:24 AM SCOOP MACHINE OPERATOR Sexual Orientation Straight 04/18/2020 9: 24 AM SCOOP MACHINE OPERATOR documented as of this encounter Medications [...] daily as needed for rash 30 g 2 03/25/20 23 methenamine (HIPREX) 1 gram [...] Priority Date/Time Associated Diagnosis Comments XR FOOT RIGHT 3 OR MORE VIEWS Schedule Routine, Read Routine (OP Routine) 04/03/2022 1:11 PM SCOOP MACHINE OPERATOR Right foot pain documented in this encounter Results * XR Foot Right 3+ View (04/03/2022 1:11 PM SCOOP MACHINE OPERATOR) Anatomical Region Laterality Modality Lower Extremities, Foot Right Computed Radiography 04/03/2022 1:20 PM SCOOP MACHINE OPERATOR Impressions 04/03/2022 1:24 PM SCOOP MACHINE OPERATOR 1. 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 Dictated by: Keyana Tee M.D. The radiology attending physician has personally reviewed this study, and had reviewed and/or edited this written report and agrees with it. Electronically signed by: Jerrod Bird MD Narrative 04/03/2022 1:24 PM SCOOP MACHINE OPERATOR EXAMINATION: XR FOOT RIGHT 3 OR MORE [...] this encounter Visit Diagnoses Diagnosis Right foot pain Pain in soft tissues of limb documented in this encounter Care Teams Paediatric Surgeon Relationship Specialty Start Date End Date Jose Mo MD [address] [address] PCP - General 08/22/18 Jose Mo MD [address] [address] 08/22/18 documented as of this encounter
--- OUTSIDE RECORDS SUMMARY | 2024-03-26 21:31 | XMS_ITS | Encounter Summary ---
Author Organization [facility] Healthcare Address [address] [place] [address] Care Team Providers Care Refining Equipment Operator Name Role Phone Jose Mo MD Primary Care Provider [phone] Jose Mo MD Unavailable [phone] Encounter Details Date Type Department Care Team (Late st Contact Info) Description 01/23/2024 Telephone [facility] [address] [place] [address] Jaqueline Regalado, RN Social History Tobacco Use Types Packs/Day Years [...] on file Legal Sex Male 6:24 PM SUGAR CANE PLANTER MACHINE OPERATOR Gender Identity Male 04/18/2020 9:24 AM SUGAR CANE PLANTER MACHINE OPERATOR Sexual Orientation Straight 04/18/2020 9: 24 AM SUGAR CANE PLANTER MACHINE OPERATOR documented as of this encounter Miscellaneous Notes * Telephone Encounter - Celina Quintero MA - 02/03/2024 12:32 PM CDT Pt scheduled * Telephone Encounter - Celina Quintero MA - 01/30/2024 10:21 AM CDT Placed order, lmom to call office to schedule * Telephone Encounter - Jaqueline Regalado RN - 01/23/2024 1:[address] Mo, This is a reminder that this patient is due soon for their annual lung screening CT. If you feel that the patient should continue with screening, please enter order CT Lung Cancer Screening ([id number]). Your office can then coordinate scheduling with the patient. Please note that Medicare and Medicaid are now providing lung screening coverage for patients age 50-77 with a 20 pack year smoking history. The parameters on the Epic order have been adjusted to meet these new guidelines. Lung Screenings can be ordered on patients in the 78-80 age range but pleasenote that insurance may not cover for this group. Thank you for previous referrals to the [facility] Lung Cancer Screening Program. If you have any questions, please contact me at [phone] Thank you, Jaqueline Regalado, MSN, RN [facility] Lung Cancer Screening Program [phone] documented in this encounter Plan of Treatment Not on file documented as of this encounter Visit Diagnoses Not on filedocumented in this encounter Care Teams Refining Equipment Operator Relationship Specialty Start Date End Date Jose Mo MD [address] [address] PCP - General 08/22/18 Jose Mo MD [address] [address] 08/22/18 documented as of this encounter
--- OUTSIDE RECORDS SUMMARY | 2024-03-26 21:31 | XMS_ITS | Encounter Summary ---
Author Organization [facility] Address [address] [place] [address] Care Team Providers Care Pharmaceutical Analyst Name Role Phone Jose Mo MD Primary Care Provider Jose Mo MD Unavailable Reason for Visit * Reason Onset Date Comments XRay 07/11/2022 Encounter Details Date Type Department Care Team (Late st Contact Info) Description 07/11/2022 [facility] [address] [facility] [address] [place] [address] Jose Mo MD [address] [facility] [address] [place] [address] XRay Social History Tobacco Use Types Packs/Day Years [...] on file Legal Sex Male 6:24 PM PICKLE PROCESSOR Gender Identity Male 04/18/2020 9:24 AM PICKLE PROCESSOR Sexual Orientation Straight 04/18/2020 9: 24 AM PICKLE PROCESSOR documented as of this encounter Miscellaneous Notes * Telephone Encounter - Fina Mccullough CMA - 07/11/2022 11:11 AM CDT Pt aware of referral. Sent [facility] ortho * Telephone Encounter - Jose Mo MD - 07/11/2022 9:54 AM CDT May have fracture, needs ortho foot referral * Telephone Encounter - Fina Mccullough CMA - 07/11/2022 9:33 AM CDT Pt called in because he had a fall. Admitted to the hospital om 07/09/2022. Hospital staff told him to f/u in 2 weeks with PCP for follow up x-rays. wants orders sent to [facility] instead. No referral to ortho. Results scanned in from [facility] from ED. documented in this encounter Plan of Treatment Not on file documented as of this encounter Visit Diagnoses Diagnosis Acute pain of left foot Fall, initial encounter documented in this encounter Care Teams Pharmaceutical Analyst Relationship Specialty Start Date End Date Jose Mo MD [address] [address] PCP - General 08/22/18 Jose Mo MD [address] [address] 08/22/18 documented as of this encounter
--- OUTSIDE RECORDS SUMMARY | 2024-03-26 21:31 | XMS_ITS | Encounter Summary ---
Author Organization [facility] Address [address] [place] [address] Phone Care Team Providers Care Char Belt Operator Name Role Phone Jose Mo MD Primary Care Provider [phone] Jose Mo MD Unavailable [phone] Encounter Details Date Type Department Care Team (Late st Contact Info) Description 08/20/2022 Telephone [facility] Orthopaedic Surgery [address] [place] [address] Adilene Bustamante, BS Social History Tobacco [...] on file Legal Sex Male 6:24 PM SMOKING PIPE MOUNTER Gender Identity Male 04/18/2020 9:24 AM SMOKING PIPE MOUNTER Sexual Orientation Straight 04/18/2020 9: 24 AM SMOKING PIPE MOUNTER documented as of this encounter Miscellaneous Notes * Telephone Encounter - Adilene Bustamante BS - 08/20/2022 9:35 AM CDT 10/25- Received a message from the patient today asking about the knee brace that was previously ordered for him. I called the patient back to let him know I will need to reorder the brace if he does want it now. Patient is good with this and I told him we will call him back as soon as it arrives toschedule a time for the fitting. Called patient today to let him know the knee brace that was ordered for him is in. He is going to speak with his about setting up a time but will call us back as soon as he knows. 09/19- It has been 30 days and we have not heard back from the patient about coming in for the fitting. Brace will go back on shelf but the measurements are in the chart for reference should the patient call back wanting the brace. documented in this encounter Plan of Treatment Not on file documented as of this encounter Visit Diagnoses Not on filedocumented in this encounter Care Teams Char Belt Operator Relationship Specialty Start Date End Date Jose Mo MD [address] [address] PCP - General 08/22/18 Jose Mo MD [address] [address] 08/22/18 documented as of this encounter
--- OUTSIDE RECORDS SUMMARY | 2024-03-26 21:31 | XMS_ITS | Encounter Summary ---
Author Organization [facility] Healthcare Address [address] [place] [address] Care Team Providers Care Mid Wife Name Role Phone Jose Mo MD Primary Care Provider [phone] Jose Mo MD Unavailable [phone] Encounter Details Date Type Department Care Team (Latest Contact Info) Description 04/03/2022 4:28 PM COOKY MACHINE OPERATOR - 04/03/2022 4:29 PM COOKY MACHINE OPERATOR Hospital Encounter [facility]) [address] [place] [address] Discharge Disposition: Discharge to home or self [...] on file Legal Sex Male 6:24 PM COOKY MACHINE OPERATOR Gender Identity Male 04/18/2020 9:24 AM COOKY MACHINE OPERATOR Sexual Orientation Straight 04/18/2020 9: 24 AM COOKY MACHINE OPERATOR documented as of this encounter [...] XR TRANSFER OF OUTSIDE FILMS Routine 04/03/2022 4:28 PM COOKY MACHINE OPERATOR Diagnosis unknown documented in this encounter Results * XR Outside Reference (04/03/2022 4:28 PM COOKY MACHINE OPERATOR) Impressions [facility] - 04/03/2022 4:28 PM COOKY MACHINE OPERATOR These images are for Reference purposes only and have not been reviewed by [facility] Radiology. ??There will be no report generated by a [facility] Radiologist. Narrative [facility] - 04/03/2022 4:28 PM COOKY MACHINE OPERATOR EXAMINATION: ??Images For Reference Purposes Only us Marito Higgins MD IMG XR PROCEDURES Final Res ult [facility] documented in this encounter Visit Diagnoses Not on filedocumented in this encounter Care Teams Mid Wife Relationship Specialty Start Date End Date Jose Mo MD [address] [address] PCP - General 08/22/18 Jose Mo MD [address] [address] 08/22/18 documented as of this encounter
--- OUTSIDE RECORDS SUMMARY | 2024-03-26 21:31 | XMS_ITS | Encounter Summary ---
Author Organization [facility] Address [address] [place] [address] Phone Care Team Providers Care Conventional Mortgage Underwriter Name Role Phone Jose Mo MD Primary Care Provider [phone] Jose Mo MD Unavailable [phone] Encounter Details Date Type Department Care Team (Late st Contact Info) Description 04/03/2022 Orders Only [facility] Infectious Diseases [address] [place] [address] [address] [place] [address] Ania Topete, ICT TRAINER [address] [facility] [address] [place] [address] Recurrent UTI (Primary Dx) Social History Tobacco [...] on file Legal Sex Male 6:24 PM CIRCULAR CLERK Gender Identity Male 04/18/2020 9:24 AM CIRCULAR CLERK Sexual Orientation Straight 04/18/2020 9: 24 AM CIRCULAR CLERK documented as of this encounter Plan of Treatment Not on file documented as of this encounter Procedures Procedure Name Priority Date/Time Associated Diagnosis Comments URINE CULTURE, COMPREHENSIVE Routine 04/03/2022 11:00 AM CIRCULAR CLERK MICROSCOPIC EXAMINATION Routine 04/03/2022 11:00 AM CIRCULAR CLERK URINALYSIS AND REFLEX TO MICROSCOPIC AND CULTURE Routine 04/03/2022 11:00 AM CIRCULAR CLERK Recurrent UTI documented in this encounter Results * (ABNORMAL) Urine Culture, Comprehensive (04/03/2022 11:00 AM CIRCULAR CLERK) Urine culture Final report(A) [facility] - 01 Result 1 Comment(A) [facility] - 01 Comment: Escherichia coli, identified by an automated biochemical system. Greater than 100,000 colony forming units per mL Cefazolin <=4 ug/mL Cefazolin with an SHARON <=16 predicts susceptibility to the oral agents cefaclor, cefdinir, cefpodoxime, cefprozil, cefuroxime, cephalexin, and loracarbef when used for therapy of uncomplicated urinary tract infections due to E. coli, Klebsiella pneumoniae, and Proteus mirabilis. Antimicrobial Susceptibility Comment [facility] - 01 Comment: ? S = Susceptible; I = Intermediate; R = Resistant ? P = Positive; N = Negative ?MICS are expressed in micrograms per mL ?? Antibiotic ? RSLT#1 ?RSLT#2 ?RSLT#3 ?RSLT#4 Amoxicillin/Clavulanic Acid ?S Ampicillin ? S Cefepime ? S Ceftriaxone ?S Cefuroxime ? I Ciprofloxacin ?S Ertapenem ?S Gentamicin ? S Imipenem ? S Levofloxacin ? S Meropenem ?S Nitrofurantoin ? I Piperacillin/Tazobactam ?S Tetracycline ? S Tobramycin ? S Trimethoprim/Sulfa ? S 04/03/2022 11:0 0 AM CIRCULAR CLERK 04/03/2022 Narrative [facility] - 04/07/2022 11:07 AM CIRCULAR CLERK Performed at: ??01 - [facility] [address] ??[id number] Charter Representative: Flex Rivera PhD, Phone: ??[phone] us Ania Topete ICT TRAINER LAB MICROBIOLOGY - GEN ERAL ORDERABLES Final Result [facility] - * (ABNORMAL) Microscopic Examination (04/03/2022 11:00 AM CIRCULAR CLERK) WBC, ur >30(A) 0 - 5 /hpf [facility] - RBC, ur None seen 0 - 2 /hpf [facility] - 01 Epithelial cells, non-renal, ur None seen 0 - 10 /hpf [facility] - 01 Casts None seen None seen /lpf [facility] - 01 Bacteria, ur Many(A) None seen/Few [facility] - 01 04/03/2022 11:0 0 AM CIRCULAR CLERK 04/03/2022 Narrative [facility] - 04/07/2022 11:07 AM CIRCULAR CLERK Performed at: ??01 - [facility] [address] ??[id number] Charter Representative: Flex Rivera PhD, Phone: ??[phone] Ania Topete NP LAB BLOOD ORDERABLES F inal Result [facility] - 01 * (ABNORMAL) Urinalysis reflex to microscopic and culture Urine, clean voided (04/03/2022 11:00 AM CIRCULAR CLERK) Specific Vona 1.017 1.005 - 1.030 [facility] - 01 pH, ur 7.0 5.0 - 7.5 [facility] - 01 Color, ur Yellow Yellow [facility] - 01 Appearance, ur Clear Clear [facility] - 01 Leukocyte esterase, ur 2+(A) Negative [facility] - 01 Protein, ur Negative Negative/Tra ce [facility] - 01 Glucose, ur Negative Negative [facility] - 01 Ketones, ur Negative Negative [facility] - 01 Blood, ur Negative Negative [facility] - 01 Bilirubin, ur Negative Negative [facility] - 01 Urobilinogen, quant, ur 0.2 0.2 - 1.0 mg/dL [facility] - 01 Nitrites, ur Positive(A) Negative [facility] - 01 Urinalysis, microscopic exam See below: [facility] - 01 Comment:Microscopic was elvis cated and was performed. Urinalysis Comment [facility] - 01 Comment:This specimen has re flexed to a Urine Culture. Urine, clean voided 04/03/2022 11:00 AM CIRCULAR CLERK 04/03/2022 Narrative [facility] - 04/07/2022 11:07 AM CIRCULAR CLERK Performed at: ??01 - [facility] [address] ??[id number] Charter Representative: Flex Rivera PhD, Phone: ??[phone] Ania Topete ICT TRAINER LAB MICROBIOLOGY - GEN ERAL ORDERABLES Final Result [facility] - documented in this encounter Visit Diagnoses Diagnosis Recurrent UTI- Primary Urinary tract infection, site not specified documented in this encounter Care Teams Conventional Mortgage Underwriter Relationship Specialty Start Date End Date Jose Mo MD [address] [id number] PCP - General 08/22/18 Jose Mo MD [address] [address] 08/22/18 documented as of this encounter
--- OUTSIDE RECORDS SUMMARY | 2024-03-26 21:31 | XMS_ITS | Encounter Summary ---
Author Organization [facility] Healthcare Address [address] [place] [address] Care Team Providers Care Automotive Accessory Installer Name Role Phone Jose Mo MD Primary Care Provider [phone] Jose Mo MD Unavailable [phone] Reason for Referral * MRI/CAT/PET Scan (Routine) - Closed Specialty Diagnoses / Procedures Referred By Barbara goldman Referred To Contact Radiology Diagnoses Personal history of nicotine dependence Procedures CT Lung Cancer Screening Jose Mo MD [address] [address] Phone: tel: fax: [address] [address] Referral ID Status Reason Start Date Expiration Date Visits Re quested Visits Authorized [id number] Closed 10/31/2022 11/30/2023 1 1 Reason for Visit * MRI/CAT/PET Scan (Routine) - Closed Specialty Diagnoses / Procedures Referred By Contac t Referred To Contact Radiology Diagnoses Personal history of nicotine dependence Procedures CT Lung Cancer Screening Jose Mo MD [address] [address] Phone: tel: fax: [facility] [address] [facility] [place] [address] Referral ID Status Reason Start Date Expiration Date Visits Re quested Visits Authorized [id number] Closed 10/31/2022 11/30/2023 1 1 Encounter Details Date Type Department Care Team (Latest Contact Info) Description 01/28/2023 12:28 PM CDT - 01/28/2023 11:59 PM CDT Hospital Encounter [facility] [address] [place] [address] Jose Mo MD [address] [facility] [address] [place] [address] Personal history of nicotine dependence [...] on file Legal Sex Male 6:24 PM BORDER MACHINE OPERATOR Gender Identity Male 04/18/2020 9:24 AM BORDER MACHINE OPERATOR Sexual Orientation Straight 04/18/2020 9: 24 AM BORDER MACHINE OPERATOR documented as of this encounter [...] FIVE TIMES DAILY DIRECTED 450 tablet 3 11/25/2022 11/25/19 24 furosemide (LASIX) 20 mg tablet TAKE 1 TABLET(20 MG) BY MOUTH DAILY 90 tablet 12/25/2022 03/25/20 23 hydrocortisone 2.5 % cream Apply topically daily as needed for rash 30 g 1 04/24/2021 03/25/20 23 levoFLOXacin (LEVAQUIN) 750 mg tablet 06/16/2022 09/09/19 24 methenamine (HIPREX) 1 gram tablet TAKE 1 TABLET(1 GRAM) BY MOUTH TWICE DAILY WITH MEALS 60 tablet 11 01/27/2023 01/26/20 24 Myrbetriq 25 mg tablet extended release 24 [...] SCREENING Schedule Routine, Read Routine (OP Routine) 01/28/2023 1:22 PM CDT Personal history of nicotine dependence documented in [...] dependence documented in this encounter Care Teams Automotive Accessory Installer Relationship Specialty Start Date End Date Jose Mo MD [address] [address] PCP - General 08/22/18 Jose Mo MD [address] [address] 08/22/18 documented as of this encounter
--- OUTSIDE RECORDS SUMMARY | 2024-03-26 21:31 | XMS_ITS | Encounter Summary ---
Author Organization [facility] Address [address] [facility] [address] [place] [address] Phone Care Team Providers Care Outside B2B Sales Name Role Phone Jose Mo MD Primary Care Provider [phone] Jose Mo MD Unavailable [phone] Encounter Details Date Type Department Care Team (Late st Contact Info) Description 03/19/2022 Telephone [facility] Surgery [address] [place] [address] [address] [place] [address] Ragini Lind RMA Social History [...] on file Legal Sex Male 6:24 PM FABRICATION AND LAYOUT CRAFTSMAN Gender Identity Male 04/18/2020 9:24 AM FABRICATION AND LAYOUT CRAFTSMAN Sexual Orientation Straight 04/18/2020 9: 24 AM FABRICATION AND LAYOUT CRAFTSMAN documented as of this encounter Miscellaneous Notes * Telephone Encounter - Ragini Lind RMA - 03/19/2022 3:51 PM CST LVM to release results. Franco LING ICATION AND LAYOUT CRAFTSMAN documented in this encounter Plan of Treatment Not on file documented as of this encounter Visit Diagnoses Not on filedocumented in this encounter Care Teams Outside B2B Sales Relationship Specialty Start Date End Date Jose Mo MD [address] [address] PCP - General 08/22/18 Jose Mo MD [address] [address] 08/22/18 documented as of this encounter
--- OUTSIDE RECORDS SUMMARY | 2024-03-26 21:31 | XMS_ITS | Encounter Summary ---
Author Organization [facility] Address [address] [place] [address] Phone Care Team Providers Care Front End Specialist Name Role Phone Jose Mo MD Primary Care Provider [phone] Jose Mo MD Unavailable [phone] Encounter Details Date Type Department Care Team (Late st Contact Info) Description 03/07/2022 Telephone [facility] Infectious Diseases [address] [place] [address] [address] [place] [address] Jacque Mendieta Social History Tobacco [...] on file Legal Sex Male 6:24 PM INFORMATION SYSTEMS AUDITOR Gender Identity Male 04/18/2020 9:24 AM INFORMATION SYSTEMS AUDITOR Sexual Orientation Straight 04/18/2020 9: 24 AM INFORMATION SYSTEMS AUDITOR documented as of this encounter Miscellaneous Notes * Telephone Encounter - Ania Topete NP - 03/11/2022 11:26 AM INFORMATION SYSTEMS AUDITOR Thanks, I did not see that a culture was submitted. RMATION SYSTEMS AUDITOR * Telephone Encounter - Nat Beck - 03/08/2022 9:18 AM CST Moriah carlin Sent [employer] Online message for UA. Stated he will submit but stated it will likely be negative. RMATION SYSTEMS AUDITOR * Telephone Encounter - Jacque Mendieta - 03/07/2022 3:12 PM CST [phone], Patient states that he is having a bladder infe right now. Burning on fire, urine is cloudy, strong odor. This is how it is when patient has the bladder infe. Patient took the preventive medicine this am. Patient is needing something carmen. Patient would like to speak ID rn. RMATION SYSTEMS AUDITOR documented in this encounter Plan of Treatment Not on file documented as of this encounter Visit Diagnoses Not on filedocumented in this encounter Care Teams Front End Specialist Relationship Specialty Start Date End Date Jose Mo MD [address] [address] PCP - General 08/22/18 Jose Mo MD [address] [address] 08/22/18 documented as of this encounter
--- OUTSIDE RECORDS SUMMARY | 2024-03-26 21:31 | XMS_ITS | Encounter Summary ---
Author Organization [facility] Address [address] [facility] [address] [place] [address] Phone Care Team Providers Care Staff Midwife/Apprenticeship Director Name Role Phone Jose Mo MD Primary Care Provider [phone] Jose Mo MD Unavailable [phone] Encounter Details Date Type Department Care Team (Late st Contact Info) Description 04/03/2022 Telephone [facility] Infectious Diseases [address] [place] [address] [address] [place] [address] Sola Toro, [facility] Social History Tobacco Use Types Packs/Day Years [...] on file Legal Sex Male 6:24 PM DIETETICS DIRECTOR Gender Identity Male 04/18/2020 9:24 AM DIETETICS DIRECTOR Sexual Orientation Straight 04/18/2020 9: 24 AM DIETETICS DIRECTOR documented as of this encounter Miscellaneous Notes * Telephone Encounter - Nat Beck - 04/03/2022 9:02 AM CST Order faxed. ETICS DIRECTOR * Telephone Encounter - Sola Toro LCSW - 04/03/2022 8:40 AM DIETETICS DIRECTOR [employer] [place], [employer], computer is down. Please fax the order for a urine sample to [phone] Significant other states that the smell has returned. Patient completed his 8 days of antibiotics. Significant other is at [phone] ETICS DIRECTOR documented in this encounter Plan of Treatment Not on file documented as of this encounter Visit Diagnoses Not on filedocumented in this encounter Care Teams Staff Midwife/Apprenticeship Director Relationship Specialty Start Date End Date Jose Mo MD [address] [address] PCP - General 08/22/18 Jose Mo MD [address] [address] 08/22/18 documented as of this encounter
--- OUTSIDE RECORDS SUMMARY | 2024-03-26 21:32 | XMS_ITS | Encounter Summary ---
Author Organization [facility] Address [address] [place] [address] Care Team Providers Care Central Office Associate Name Role Phone Jose Mo MD Primary Care Provider [phone] Jose Mo MD Unavailable [phone] Encounter Details Date Type Department Care Team (Latest Contact Info) Description 02/19/2022 12:08 PM STAFF TRAINER - 02/19/2022 11:59 PM STAFF TRAINER Hospital Encounter [address] [address] Discharge Disposition: Discharge to home or self [...] on file Legal Sex Male 6:24 PM STAFF TRAINER Gender Identity Male 04/18/2020 9:24 AM STAFF TRAINER Sexual Orientation Straight 04/18/2020 9: 24 AM STAFF TRAINER documented as of this encounter Medications at [...] ONCE FOR ONE DOSE 2 11/01/19 23 furosemide (LASIX) 20 mg tablet Take [...] on filedocumented in this encounter Care Teams Central Office Associate Relationship Specialty Start Date End Date Jose Mo MD [address] [address] PCP - General 08/22/18 Jose Mo MD [address] [address] 08/22/18 documented as of this encounter
--- OUTSIDE RECORDS SUMMARY | 2024-03-26 21:32 | XMS_ITS | Encounter Summary ---
Author Organization [facility] Address [address] [place] [address] Care Team Providers Care Insurance Underwriting Assistant Name Role Phone Jose Mo MD Primary Care Provider [phone] Jose Mo MD Unavailable Encounter Details Date Type Department Care Team (Late st Contact Info) Description 02/20/2022 5:55 PM LOCK AND DAM OPERATOR Lab [facility] [address] [place] [id number] Elevated PSA Social History Tobacco Use Types Packs/Day Years [...] on file Legal Sex Male 6:24 PM LOCK AND DAM OPERATOR Gender Identity Male 04/18/2020 9:24 AM LOCK AND DAM OPERATOR Sexual Orientation Straight 04/18/2020 9: 24 AM LOCK AND DAM OPERATOR documented as of this encounter Plan of Treatment Not on file documented as of this encounter Procedures Procedure Name Priority Date/Time Associated Diagnosis Comments PSA SCREEN Routine 02/20/2022 6:04 PM LOCK AND DAM OPERATOR Elevated PSA documented in this encounter Results * PSA screen (02/20/2022 6:04 PM LOCK AND DAM OPERATOR) PSA-Total 1.36 <=3.90 ng/mL KENAN MAXWELL Comment: Interpretive Data ?AGE ? SEX ?REFERENCE INTERVAL 0 minutes-150 years ?Female ?None 0 minutes-49 years ? Male ?None ? 50-59 years ? Male ?0-3.90 ? 60-69 years ? Male ?0-5.40 ? 70-79 years ? Male ?0-6.20 ? 80-150 years ?Male ?0-6.20 The Job PSA Total assay procedure was used. Results from different manufacturers or methods may not be comparable. Serial testing should be performed using the same method. Current interpretive data last revised 21. Testing performed by: [facility], [address] [place] [address]., [id number] Blood 02/20/2022 6:04 PM LOCK AND DAM OPERATOR 02/20/2022 6:08 PM LOCK AND DAM OPERATOR us Jhonathan Helm MD LAB BLOOD ORDERABLES Final Resul t KENAN [address] [facility] Department [place] [address] documented in this encounter Visit Diagnoses Diagnosis Elevated PSA Elevated prostate specific antigen (PSA) documented in this encounter Care Teams Insurance Underwriting Assistant Relationship Specialty Start Date End Date Jose Mo MD [address] [address] PCP - General 08/22/18 Jose Mo MD [address] [address] 08/22/18 documented as of this encounter
--- OUTSIDE RECORDS SUMMARY | 2024-03-26 21:33 | XMS_ITS | Encounter Summary ---
Author Organization [facility] Address [address] [place] [address] Phone Care Team Providers Care Roving Technician Name Role Phone Jose Mo MD Primary Care Provider [phone] Jose Mo MD Unavailable [phone] Reason for Visit * Reason Comments Elevated PSA 4 K OPKO today Encounter Details Date Type Department Care Team (Late st Contact Info) Description 08/14/2021 10:20 AM CDT Office Visit [facility] ([facility]) - [facility] Urology [address] [place] [address] Advanced Medicine [address] [place] [address] [place] [address] Elevated PSA (Primary Dx) Social History Tobacco Use Types [...] on file Legal Sex Male 6:24 PM RUG CLEANER Gender Identity Male 04/18/2020 9:24 AM RUG CLEANER Sexual Orientation Straight 04/18/2020 9: 24 AM RUG CLEANER documented as of this encounter Progress Notes * Dinora Calhoun RMA - 08/14/2021 10:20 AM CDT 08/14/21 .Angus Jain OPKO 4 K Mr. Jain Is here for a 4 K Score ( OPKO) blood draw. The testing was explained to the patient and he was provided a handout. Patient denies any blood thinners. His Right arm was prepped with alcohol and blood was drawn. Patient tolerated procedure well. I followed protocol for preparing and packaging. The package was sent immediately following Via [employer]. The score requisition can be found scanned into the patients chart. Patient was made aware that the results can take up to 2 weeks. Supervising Physician: Quentin LING III documented in this encounter Plan of Treatment Not on file documented as of this encounter Visit Diagnoses Diagnosis Elevated PSA- Primary Elevated prostate specific antigen (PSA) documented in this encounter Care Teams Roving Technician Relationship Specialty Start Date End Date Jose Mo MD [address] [address] PCP - General 08/22/18 Jose Mo MD [address] [facility] [address] [place] [address] 08/22/18 documented as of this encounter
--- OUTSIDE RECORDS SUMMARY | 2024-03-26 21:33 | XMS_ITS | Encounter Summary ---
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 container is labeled with the patient's name and left anterior lateral prostate biopsy . ??Received in formalin are two segments of soft merchant tissue which range in length from 0.7-1.5 cm and are 0.1 cm in thickness. ??This tissue is submitted entirely in cassette J1. sumit/05/25/2021 13:34 ??DAVID Maradiaga ([facility]) Jhonathan Helm MD LAB PATHOLOGY ORDERABLES Final R esult Performing Organization Address City/[facility]/ZIP Co de Phone Number PATHOLOGY [facility] * ECG 12 lead (05/25/2021 6:13 AM DISPLAY MECHANIC) Ventricular Rate EKG/Min 76 BPM [facility] Atrial Rate 76 BPM [facility] W[place]-Interval (MSEC) 170 ms [facility] QRS-Interval (MSEC) 90 ms [facility] QT-Interval (MSEC) 380 ms [facility] QTc 427 ms [facility] P [place] 56 degrees [facility] R [place] 61 degrees [facility] T [place] 51 degrees [facility] Diagnosis Normal sinus rhythm Normal ECG No previous ECGs available [facility] 05/25/2021 6:13 AM DISPLAY MECHANIC 05/25/2021 9:08 AM DISPLAY MECHANIC Jonathon Farris DO ECG ORDERABLES Gricelda l Result [facility] * (ABNORMAL) POC Blood Gas and Chemistries, Venous - (05/25/2021 6:06 AM DISPLAY MECHANIC) pH,shania POC 7.38 7.32 - 7.43 [facility] pCO2, shania POC 48 40 - 50 mmHg [facility] pO2,shania POC 56 mmHg [facility] Comment: Interpretive Data No reference range established. Current interpretive data was last revised 2019. HCO3, shania (Calc) POC 28 20 - 30 mmol/L [facility] Base excess, shania POC 3 mmol/L [facility] Comment: Interpretive Data No reference range established. Current interpretive data was last revised 2019. Hemoglobin, shania POC 11.9(L) 13.0 - 17.5 g/dL [facility] Hematocrit, shania POC 35.0(L) 38.9 - 50.3 % [facility] Sodium, shania POC 142 135 - 145 mmol/L [facility] Potassium, shania POC 4.1 3.3 - 4.9 mmol/L [facility] Comment: Interpretive Data Unable to assess hemolysis, Invitro hemolysis causes falsely elevated potassium. Current interpretive data was last revised on 2019. Glucose, shania POC 103 70 - 199 mg/dL [facility] Blood 05/25/2021 6:06 AM DISPLAY MECHANIC 05/25/2021 6:06 AM DISPLAY MECHANIC Jhonathan Helm MD LAB POCT ORDERABLES - DEVICE Fin al Result [facility] [address] [facility] Department [place] [address] documented in this encounter Visit Diagnoses Diagnosis Elevated PSA- Primary Elevated prostate specific antigen (PSA) Elevated PSA Elevated prostate specific antigen (PSA) documented in this encounter Admitting Diagnoses Diagnosis Elevated PSA Elevated prostate specific antigen (PSA) documented in this encounter Administered Medications Inactive Administered Medications - up to 3 most recent administrations Medication Order MAR Action Action Date Dose Rate Site acetaminophen (TYLENOL) tablet 975 mg 975 mg, oral, Once, On Fri05/25/21 at 0630, For 1 dose, Pre-Op, Indications: Pre-Emptive AnalgesiaIndications:Pre-Emptive Analgesia Given 05/25/2021 6:22 AM DISPLAY MECHANIC 975 mg famotidine (PEPCID) tablet 20 mg 20 mg, oral, Once, On Fri05/25/21 at 0630, For 1 dose, Pre-Op, Indications: gastroesophageal reflux diseaseIndications:gastroesophagea l reflux disease Given 05/25/2021 6:22 AM DISPLAY MECHANIC 20 mg ketorolac (TORADOL) 30 mg/mL (1 mL) injection 15 mg 15 mg, intravenous, Once, On Fri05/25/21 at 1000, For 1 dose, Pre-Op, For Adult IV push, administer over 15 seconds Given 05/25/2021 9:47 AM DISPLAY MECHANIC 15 mg Lactated Ringer's (LR) infusion 30 mL/hr, intravenous, Continuous, Starting on Fri05/25/21 at 0630, Pre-Op Restarted 05/25/2021 8:08 AM DISPLAY MECHANIC Rate/Dose Verify 05/25/2021 7:25 AM DISPLAY MECHANIC 30 mL/h r New Bag 05/25/2021 6:21 AM DISPLAY MECHANIC 30 mL/hr 30 mL/hr sodium chloride 0.9% flush 0.5-20 mL 0.5-20 mL, intra-catheter, As needed, line care, Starting on Fri05/25/21 at 0547, Pre-Op, Flush volume based on line type and size. Flush before and after each use. documented in this encounter Discontinued Medications Medication Sig Discontinue Reason Start Date End Da te aspirin 325 mg enteric coated tablet Take 1 tablet (325 mg total) by mouth 2 (two) times a day for 14 days For blood clot prevention. Take with food. Stop Taking at Discharge 07/30/2018 05/25/2021 cefuroxime (CEFTIN) 250 mg tablet Take 1 tablet (250 mg total) by mouth 2 (two) times a day Stop Taking at Discharge 12/04/2020 05/25/2021 documented as of this encounter Historical Medications * This list may reflect changes made after this encounter. ibuprofen (ADVIL,MOTRIN) 800 mg tabletIndications :Anti-inflammator y Take 1 tablet (800 mg total) by mouth every 6 (six) hours as needed for pain added in this encounter Active and Recently Administered Medications Times are shown in DISPLAY MECHANIC. Scheduled Medication Order 05/23/2021 05/24/2021 05/25/2021 acetaminophen (TYLENOL) tablet 975 mg (COMPLETED) 975 mg, oral, Once, On Fri05/25/21 at 0630, For 1 dose, Pre-Op, Indications: Pre-Emptive Analgesia 0622 (Given - Provid er: Juana Irwin RN) ceFAZolin (ANCEF) 2,000 mg/20 mL in sterile water (premix) 2,000 mg (COMPLETED) 2,000 mg, intravenous, at 400 mL/hr, Administer over 3 Minutes, Once, On Fri05/25/21 at 0630, For 1 dose, Pre-Op, Administer within 60 minutes of incision., Indications: Prophylaxis, Surgical 0725 (Given - Provid er: Celina Santamaria CRNA) famotidine (PEPCID) tablet 20 mg (COMPLETED) 20 mg, oral, Once, On Fri05/25/21 at 0630, For 1 dose, Pre-Op, Indications: gastroesophageal reflux disease 0622 (Given - Provid er: Juana Irwin RN) ketorolac (TORADOL) 30 mg/mL (1 mL) injection 15 mg (COMPLETED) 15 mg, intravenous, Once, On Fri05/25/21 at 1000, For 1 dose, Pre-Op, For Adult IV push, administer over 15 seconds 0947 (Given - Provid er: Juana Irwin RN) Continuous Medication Order 05/23/2021 05/24/2021 05/25/2021 Lactated Ringer's (LR) infusion 30 mL/hr, intravenous, Continuous, Starting on Fri05/25/21 at 0630, Pre-Op 0621 (New Bag - Prov ider: Juana Irwin RN)0725 (Rate/Dose Verify - Provider: Celina Santamaria CRNA)0807 (Paused - Provider: Celina Santamaria CRNA - Comment: Switch to gravity)0808 (Restarted - Provider: Celina Santamaria CRNA) PRN Medication Order 05/23/2021 05/24/2021 05/25/2021 fentaNYL (SUBLIMAZE) preservative free injection 25 mcg 25 mcg, intravenous, Every 10 min PRN, 1st line for pain, Starting on Fri05/25/21 at 0808, Phase I, Switch to 2nd line analgesic order if pain is uncontrolled or increasing after 2 doses. Notify Anesthesiologist if total PACU dose reaches 100 mcg and pain score 5/10 or more., Indications: Pain fentaNYL (SUBLIMAZE) preservative free injection 50 mcg 50 mcg, intravenous, Once as needed, uncontrolled pain on PACU admission, Starting on Fri05/25/21 at 0808, For 1 dose, Phase I, Then proceed to PACU 1st line analgesic., Indications: Pain fentaNYL (SUBLIMAZE) preservative free injection 50 mcg 50 mcg, intravenous, Every 10 min PRN, 2nd line for pain, Starting on Fri05/25/21 at 0808, Phase I, May administer 10 mintes after 2nd dose of 1st line analgesic agent for uncontrolled or increasing pain. Revert to 1st line dose if POSS of 3. Notify Anesthesiologist if total PACU dose reaches 100 mcg and pain score 5/10 or more., Indications: Pain hydrALAZINE (APRESOLINE) injection 5 mg 5 mg, intravenous, Administer over 2 Minutes, Every 15 min PRN, high blood pressure, Starting on Fri05/25/21 at 0808, Phase I, Max cumulative dose 20 mg. Dose if systolic BP greater than 180 AND heart rate less than 70., Indications: hypertension labetaloL (NORMODYNE,TRANDATE) injection 5 mg 5 mg, intravenous, at 30 mL/hr, Administer over 2 Minutes, Every 10 min PRN, high blood pressure, Starting on Fri05/25/21 at 0808, Phase I, Max cumulative dose 20 mg. Dose if systolic blood pressure greater than 180 AND HR greater than 70. naloxone (NARCAN) 0.4 mg/mL injection 0.04-0.4 mg 0.04-0.4 mg, intravenous, Once as needed, other, excessive sedation/respiratory depression, Starting on Fri05/25/21 at 0808, For 1 dose, Phase I, Dilute 0.4 mg with 9 mL NS (final concentration 0.04 mg/mL). For respiratory depression (respiratory rate less than 6), administer 0.4 mg IVP over 30 seconds. For excessive sedation administer 0.04 mg (1 mL) every 1 minute until desired level of alertness. For IV, administer over 30 seconds., Indications: Opioid Toxicity ondansetron (ZOFRAN) injection 4 mg 4 mg, intravenous, Administer over 2 Minutes, Once as needed, nausea, vomiting, Starting on Fri05/25/21 at 0808, For 1 dose, Phase I, Proceed to prochlorperazine if ondansetron has been given within the last 6 hours. prochlorperazine (COMPAZINE) injection 5 mg 5 mg, intravenous, Once as needed, nausea, vomiting, Starting on Fri05/25/21 at 0808, For 1 dose, Phase I, If nausea/vomiting not relieved by ondansetron within 30 minutes or if ondansetron has been given within the last 6 hours. sodium chloride 0.9% flush 0.5-20 mL 0.5-20 mL, intra-catheter, As needed, line care, Starting on Fri05/25/21 at 0547, Pre-Op, Flush volume based on line type and size. Flush before and after each use. sodium chloride 0.9% flush 0.5-20 mL 0.5-20 mL, intra-catheter, As needed, line care, Starting on Fri05/25/21 at 0547, Pre-Op, Flush volume based on line type and size. Flush before and after each use. documented in this encounter Orders Medications Ordered That Solomon ht Not Have Been Administered Count Last Ordered Date First Ordered Date ceFAZolin (ANCEF) 2,000 mg/2 0 mL in sterile water (premix) 2,000 mg 1 05/25/2021 fentaNYL (SUBLIMAZE) preserv ative free injection 25 mcg 1 05/25/2021 fentaNYL (SUBLIMAZE) preserv ative free injection 50 mcg 2 05/25/2021 hydrALAZINE (APRESOLINE) injection 5 mg 1 0 05/25/2021 labetaloL (NORMODYNE,TRANDAT E) injection 5 mg 1 05/25/2021 naloxone (NARCAN) 0.4 mg/mL injection 0.04-0.4 mg 1 05/25/2021 ondansetron (ZOFRAN) injection 4 mg 1 05/25 prochlorperazine (COMPAZINE) injection 5 mg 1 05/25/2021 sodium chloride 0.9% flush 0.5-20 mL 2 05/08 Discharge Count Last Ordered Date First Orde red Date DISCHARGE PATIENT 1 05/25/2021 documented in this encounter Care Teams Client Account Representative Relationship Specialty Start Date End Date Jose Mo MD [address] [facility] [address] [place] [address] PCP - General 08/22/18 Jose Mo MD [address] [facility] [address] [place] [address] 08/22/18 documented as of this encounter
--- OUTSIDE RECORDS SUMMARY | 2024-03-26 21:33 | XMS_ITS | Encounter Summary ---
Author Organization [facility] Address [address] [place] [address] Care Team Providers Care Specialties Operator Name Role Phone Jose Mo MD Primary Care Provider Jose Mo MD Unavailable [phone] Encounter Details Date Type Department Care Team (Late st Contact Info) Description 11/02/2021 [facility] [address] [facility] [address] [place] [address] Jose Mo MD [address] [facility] [address] [place] [address] Social History Tobacco Use Types [...] on file Legal Sex Male 6:24 PM PRODUCTION MATERIAL COORDINATOR Gender Identity Male 04/18/2020 9:24 AM PRODUCTION MATERIAL COORDINATOR Sexual Orientation Straight 04/18/2020 9: 24 AM PRODUCTION MATERIAL COORDINATOR documented as of this encounter Miscellaneous Notes * Telephone Encounter - Celina Quintero MA - 11/02/2021 7:36 AM CDT Pt aware/mk * Telephone Encounter - Celina Quintero MA - 11/02/2021 7:36 AM CDT ----- Message from Jose Mo MD sent at 10/30/2021 1:31 PM CDT ----- Fu ct in 6 months documented in this encounter Plan of Treatment Not on file documented as of this encounter Visit Diagnoses Not on filedocumented in this encounter Care Teams Specialties Operator Relationship Specialty Start Date End Date Jose Mo MD [address] [address] PCP - General 08/22/18 Jose Mo MD [address] [address] 08/22/18 documented as of this encounter
--- OUTSIDE RECORDS SUMMARY | 2024-03-26 21:33 | XMS_ITS | Encounter Summary ---
Author Organization [facility] Address [address] [place] [address] Phone Care Team Providers Care Explosive Ordnance Disposal Technician Name Role Phone Jose Mo MD Primary Care Provider [phone] Jose Mo MD Unavailable [phone] Encounter Details Date Type Department Care Team (Late st Contact Info) Description 02/19/2022 Orders Only [facility] [address] [place] [address] [address] [place] [address] Ania Topete, EXTERNAL GRINDER [address] [facility] [address] [place] [address] Recurrent UTI (Primary Dx) Social [...] on file Legal Sex Male 6:24 PM ADOLESCENT COUNSELOR Gender Identity Male 04/18/2020 9:24 AM ADOLESCENT COUNSELOR Sexual Orientation Straight 04/18/2020 9: 24 AM ADOLESCENT COUNSELOR documented as of this encounter Plan of Treatment Scheduled Orders Name Type Priority Associated Diagnoses Orde r Schedule Urinalysis reflex to microscopic and culture Urine, clean voided Microbiology Routine Recurrent UTI as needed for 4 Occurrences starting 02/19/2022 until 02/19/2023, 3 completed documented as of this encounter Procedures Procedure Name Priority Date/Time Associated Diagnosis Comments MICROSCOPIC EXAMINATION Routine 06/29/2022 9:23 AM CDT URINALYSIS AND REFLEX TO MICROSCOPIC AND CULTURE Routine 06/29/2022 9:23 AM CDT Recurrent UTI MICROSCOPIC EXAMINATION Routine 04/26/2022 7:51 AM ADOLESCENT COUNSELOR URINALYSIS AND REFLEX TO MICROSCOPIC AND CULTURE Routine 04/26/2022 7:51 AM ADOLESCENT COUNSELOR Recurrent UTI URINE CULTURE, COMPREHENSIVE Routine 03/11/2022 5:30 AM ADOLESCENT COUNSELOR MICROSCOPIC EXAMINATION Routine 03/11/2022 5:30 AM ADOLESCENT COUNSELOR URINALYSIS AND REFLEX TO MICROSCOPIC AND CULTURE Routine 03/11/2022 5:30 AM ADOLESCENT COUNSELOR Recurrent UTI documented in this encounter Results * Microscopic Examination (06/29/2022 9:23 AM CDT) WBC, ur None seen 0 - 5 /hpf [facility] - 01 RBC, ur None seen 0 - 2 /hpf [facility] - 01 Epithelial cells, non-renal, ur 0-10 0 - 10 /hpf [facility] - 01 Casts None seen None seen /lpf [facility] - 01 Bacteria, ur None seen None seen/Few [facility] - 01 06/29/2022 9:23 AM CDT 06/29/2022 Narrative [facility] - 06/30/2022 8:08 AM CDT Performed at: ??01 - [facility] [address] ??[id number] Welder Production Line Arc: Flex Rivera PhD, Phone: ??[phone] Ania Topete EXTERNAL GRINDER LAB BLOOD ORDERABLES F inal Result Performing Organization Address [facility] Co de Phone Number [facility] - 01 * Urinalysis reflex to microscopic and culture Urine, clean voided (06/29/2022 9:23 AM CDT) Specific [place] 1.013 1.005 - 1.030 [facility] - 01 pH, ur 7.5 5.0 - 7.5 [facility] - 01 Color, [...] n ot reflex to a Urine Culture. Urine, clean voided 06/29/2022 9:23 AM CDT 06/29/2022 Narrative [facility] - 06/30/2022 8:08 AM CDT Performed at: ??01 - [facility] [address] ??[id number] Welder Production Line Arc: Flex Rivera PhD, Phone: ??[phone] Ania Topete NP LAB MICROBIOLOGY - GEN ERAL ORDERABLES Final Result Performing Organization Address [facility]/ZIP Co de Phone Number [facility] - * Microscopic Examination (04/26/2022 7:51 AM ADOLESCENT COUNSELOR) Pathologist [facility] WBC, ur 0-5 0 - 5 /hpf [facility] - 01 RBC, ur None seen 0 - 2 /hpf [facility] - 01 Epithelial cells, non-renal, ur None seen 0 - 10 /hpf [facility] - 01 Casts None seen None seen /lpf [facility] - 01 Bacteria, ur None seen None seen/Few [facility] - 01 04/26/2022 7:51 AM ADOLESCENT COUNSELOR 04/26/2022 Narrative [facility] - 04/27/2022 7:09 AM ADOLESCENT COUNSELOR Performed at: ?? - [facility] [address] ??[id number] Welder Production Line Arc: Flex Rivera PhD, Phone: ??[phone] Ania Topete NP LAB BLOOD ORDERABLES F inal Result Performing Organization Address [facility]/ZIP Co de Phone Number [facility] - 01 * Urinalysis reflex to microscopic and culture Urine, clean voided (04/26/2022 7:51 AM ADOLESCENT COUNSELOR) Pathologist [facility] Specific [place] 1.014 1.005 - 1.030 [facility] - 01 pH, ur 7.5 5.0 - 7.5 [facility] - 01 Color, [...] n ot reflex to a Urine Culture. Urine, clean voided 04/26/2022 7:51 AM ADOLESCENT COUNSELOR 04/26/2022 Narrative [facility] - 04/27/2022 7:09 AM ADOLESCENT COUNSELOR Performed at: ??01 - [facility] [address], [place], [place] ??[id number] Welder Production Line Arc: Flex Rivera PhD, Phone: ??[phone] us Ania Topete EXTERNAL GRINDER LAB MICROBIOLOGY - GEN ERAL ORDERABLES Final Result [facility] - 01 * (ABNORMAL) Urine Culture, Comprehensive (03/11/2022 5:30 AM ADOLESCENT COUNSELOR) Urine culture Final report(A) [facility] - 01 Result 1 Escherichia coli(A) [facility] - 01 Comment: Cefazolin <=4 ug/mL Cefazolin with an SHARON <=16 predicts susceptibility to the oral agents cefaclor, cefdinir, cefpodoxime, cefprozil, cefuroxime, cephalexin, and loracarbef when used for therapy of uncomplicated urinary tract infections due to E. coli, Klebsiella pneumoniae, and Proteus mirabilis. Greater than 100,000 colony forming units per mL Antimicrobial Susceptibility Comment [facility] - 01 Comment: ? S = Susceptible; I = Intermediate; R = Resistant ? P = Positive; N = Negative ?MICS are expressed in micrograms per mL ?? Antibiotic ? RSLT#1 ?RSLT#2 ?RSLT#3 ?RSLT#4 Amoxicillin/Clavulanic Acid ?S Ampicillin ? S Cefepime ? S Ceftriaxone ?S Cefuroxime ? S Ciprofloxacin ?S Ertapenem ?S Gentamicin ? S Imipenem ? S Levofloxacin ? S Meropenem ?S Nitrofurantoin ? S Piperacillin/Tazobactam ?S Tetracycline ? S Tobramycin ? S Trimethoprim/Sulfa ? S 03/11/2022 5:30 AM ADOLESCENT COUNSELOR 03/11/2022 Narrative [facility] - 03/13/2022 8:08 PM ADOLESCENT COUNSELOR Performed at: ??01 - [facility] ??[id number] Welder Production Line Arc: Flex Rivera PhD, Phone: ??[phone] us Ania Topete EXTERNAL GRINDER LAB MICROBIOLOGY - GEN ERAL ORDERABLES Final Result [facility] - 01 * (ABNORMAL) Microscopic Examination (03/11/2022 5:30 AM ADOLESCENT COUNSELOR) WBC, ur >30(A) 0 - 5 /hpf [facility] - 01 RBC, ur 0-2 0 - 2 /hpf [facility] - 01 Epithelial cells, non-renal, ur None seen 0 - 10 /hpf [facility] - 01 Casts None seen None seen /lpf [facility] - 01 Bacteria, ur Many(A) None seen/Few [facility] - 01 03/11/2022 5:30 AM ADOLESCENT COUNSELOR 03/11/2022 Narrative [facility] - 03/13/2022 8:08 PM ADOLESCENT COUNSELOR Performed at: ??01 - [facility] [address] ??[id number] Welder Production Line Arc: Flex Rivera PhD, Phone: ??[phone] us Ania Topete EXTERNAL GRINDER LAB BLOOD ORDERABLES F inal Result [facility] - 01 * (ABNORMAL) Urinalysis reflex to microscopic and culture Urine, clean voided (03/11/2022 5:30 AM ADOLESCENT COUNSELOR) Specific [place] 1.017 1.005 - 1.030 [facility] - 01 pH, ur 7.0 5.0 - 7.5 [facility] - 01 Color, ur Yellow Yellow [facility] - 01 Appearance, ur Cloudy(A) Clear [facility] - 01 Leukocyte esterase, ur 3+(A) Negative [facility] - 01 Protein, ur Negative Negative/Tra ce [facility] - 01 Glucose, ur Negative Negative [facility] - 01 Ketones, ur Negative Negative [facility] - 01 Blood, ur Trace(A) Negative [facility] - 01 Bilirubin, ur Negative Negative [facility] - 01 Urobilinogen, quant, ur 0.2 0.2 - 1.0 mg/dL [facility] - 01 Nitrites, ur Positive(A) Negative [facility] - 01 Urinalysis, microscopic exam See below: [facility] - 01 Comment:Microscopic was elvis cated and was performed. Urinalysis Comment [facility] - 01 Comment:This specimen has re flexed to a Urine Culture. Urine, clean voided 03/11/2022 5:30 AM ADOLESCENT COUNSELOR 03/11/2022 Narrative [facility] - 03/13/2022 8:08 PM ADOLESCENT COUNSELOR Performed at: ??01 - [facility] [address], [place], [place] ??[id number] Welder Production Line Arc: Flex Rivera PhD, Phone: ??[phone] Ania Topete EXTERNAL GRINDER LAB MICROBIOLOGY - GEN ERAL ORDERABLES Final Result [facility] - 01 documented in this encounter Visit Diagnoses Diagnosis Recurrent UTI- Primary Urinary tract infection, site not specified documented in this encounter Care Teams Explosive Ordnance Disposal Technician Relationship Specialty Start Date End Date Jose Mo MD [address] [id number] PCP - General 08/22/18 Jose Mo MD [address] [address] 08/22/18 documented as of this encounter
--- OUTSIDE RECORDS SUMMARY | 2024-03-26 21:33 | XMS_ITS | Encounter Summary ---
Author Organization [facility] Healthcare Address [address] [place] [address] Care Team Providers Care Qc Analyst Name Role Phone Jose Mo MD Primary Care Provider [phone] Jose Mo MD Unavailable [phone] Reason for Referral * MRI/CAT/PET Scan (Routine) - Closed Specialty Diagnoses / Procedures Referred By Barbara goldman Referred To Contact Radiology Diagnoses Pulmonary nodule Procedures CT Chest WO Contrast Jose Mo MD [address] [address] Phone: tel: fax: [address] [address] Referral ID Status Reason Start Date Expiration Date Visits Re quested Visits Authorized [id number] Closed 04/27/2021 05/27/2022 1 1 Reason for Visit * MRI/CAT/PET Scan (Routine) - Closed Specialty Diagnoses / Procedures Referred By Barbara goldman Referred To Contact Radiology Diagnoses Pulmonary nodule Procedures CT Chest WO Contrast Jose Mo MD [address] [address] Phone: tel: fax: [address] [address] Referral ID Status Reason Start Date Expiration Date Visits Re quested Visits Authorized [id number] Closed 04/27/2021 05/27/2022 1 1 Encounter Details Date Type Department Care Team (Latest Contact Info) Description 10/29/2021 10:00 AM CDT - 10/29/2021 11:59 PM CDT Hospital Encounter [address] [id number] Pulmonary nodule Discharge Disposition: Discharge to home or self [...] on file 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 2 packet 2 2 11/13/19 22 furosemide (LASIX) 20 mg tablet Take 1 [...] Name Priority Date/Time Associated Diagnosis Comments CT CHEST WO CONTRAST Schedule Routine, Read Routine (OP Routine) 10/29/2021 10:37 AM CDT Pulmonary nodule documented in this encounter Results * CT Chest WO Contrast (10/29/2021 10:37 AM CDT) Anatomical Region Laterality Modality Body N/A Computed Tomogra phy 10/30/2021 12:5 4 PM CDT Narrative 10/30/2021 12:57 PM CDT EXAM DESCRIPTION: ?? CT CHEST WO CONTRAST REASON FOR STUDY: ?? History of pulmonary nodules seen on CT abdomen pelvis April 2021 for follow-up. TECHNIQUE: CT scan of the chest performed without intravenous contrast using helical scanning technique. Reconstructed coronal and sagittal MPR images reviewed. ??All images stored on PACS. ??Automated exposure control was used as a dose optimization technique for this examination. COMPARISON: ?? None available FINDINGS: The sensitivity for detection of solid visceral lesions is diminished without the use of intravenous contrast. LUNGS: ?? The central airway is patent. ??Within the right lower lobe there is a 0.4 cm noncalcified pulmonary nodule (axial image 100). ??Within the left lower lobe there is a 0.6 cm noncalcified pulmonary nodule (axial image 109). ??No new pulmonary nodules are seen. PLEURA: ?? No effusion. No pneumothorax. MEDIASTINUM/BERTHA: ?? No identified masses or abnormal nodes. HEART: ?? Heart size is normal with no pericardial effusion. VASCULATURE: ?? No thoracic aortic aneurysm. AXILLA: ?? No adenopathy. CHEST WALL: ?? No masses. ??No subcutaneous air. HARDWARE/LINES/TUBES: ?? None. UPPER ABDOMEN: ?? No significant abnormality. MUSCULOSKELETAL: ?? No significant abnormality. OTHER: ?? No other significant abnormality. IMPRESSION: ?? Pulmonary nodules as above the largest within the left lower lobe measuring 0.6 cm. ??Follow-up as per guidelines below. Recent guidelines by the Fleischner Society (Radiology 323106,2017) divides patient into low vs. high risk (for example, patients who smoke are considered high risk) and provides followup recommendations as follows: SOLITARY PULMONARY NODULE: Patients considered LOW RISK for lung cancer and a solitary nodule equal to or larger than 6 mm or equal to or less than 8 mm in diameter require follow-up CT at 6-12 months, then consider CT at 18-24 months. ??In patients at HIGHER RISK require follow-up CT at 6-12 months, then CT at 18-24 months. ?? MULTIPLE PULMONARY NODULES: Patients considered LOW RISK for lung cancer and multiple nodules equal to or larger than 6 mm or equal to or less than 8 mm in diameter require follow-up CT at 3-6 months, then consider CT at 18-24 months. In patients at HIGHER RISK, for example smokers, require follow-up CT at 3-6 months, then CT at 18-24 months. Note: These recommendations do not apply to lung cancer screening, patients with immunosuppression, or patients with known primary cancer. http://pubs.rsna.org/doi/pdf/10.1148/radiol.0438455219 . THIS IS AN ELECTRONICALLY VERIFIED FINAL REPORT 10/30/2021 12:57 PM - Electronically signed by ??Shaheed Reich M.D. JA: VIPUL D: ??10/30/2021 12:57 PM T: ??10/30/2021 12:57 PM Report ID: [id number] Reading Location: ??[id number] Procedure Note Shaheed Reich MD - 10/30/2021 EXAM DESCRIPTION: CT CHEST WO CONTRAST REASON FOR STUDY: History of pulmonary nodules seen on CT abdomen pelvis April 2021 for follow-up. TECHNIQUE: CT scan of the chest performed without intravenous contrastusing helical scanning technique. Reconstructed coronal and sagittal MPR images reviewed. All images stored on PACS. Automated exposure control was usedas a dose optimization technique for this examination. COMPARISON: None available FINDINGS: The sensitivity for detection of solid visceral lesions is diminished without the use of intravenous contrast. LUNGS: The central airway is patent. Within the right lower lobe thereis a 0.4 cm noncalcified pulmonary nodule (axial image 100). Within the leftlower lobe there is a 0.6 cm noncalcified pulmonary nodule (axial image 109).No new pulmonary nodules are seen. PLEURA: No effusion. No pneumothorax. MEDIASTINUM/BERTHA: No identified masses or abnormal nodes. HEART: Heart size is normal with no pericardial effusion. VASCULATURE: No thoracic aortic aneurysm. AXILLA: No adenopathy. CHEST WALL: No masses. No subcutaneous air. HARDWARE/LINES/TUBES: None. UPPER ABDOMEN: No significant abnormality. MUSCULOSKELETAL: No significant abnormality. OTHER: No other significant abnormality. IMPRESSION: Pulmonary nodules as above the largest within the left lower lobe measuring 0.6 cm. Follow-up as per guidelines below. Recent guidelines by the Fleischner Society (Radiology 636217,2017)divides patient into low vs. high risk (for example, patients who smoke areconsidered high risk) and provides followup recommendations as follows: SOLITARY PULMONARY NODULE: Patients considered LOW RISK for lung cancerand a solitary nodule equal to or larger than 6 mm or equal to or less than 8 mmin diameter require follow-up CT at 6-12 months, then consider CT at 18-24 months. In patients at HIGHER RISK require follow-up CT at 6-12 months,then CT at 18-24 months. MULTIPLE PULMONARY NODULES: Patients considered LOW RISK for lung cancerand multiple nodules equal to or larger than 6 mm or equal to or less than 8mm in diameter require follow-up CT at 3-6 months, then consider CT at 18-24months. In patients at HIGHER RISK, for example smokers, require follow-up CT at3-6 months, then CT at 18-24 months. Note: These recommendations do not apply to lung cancer screening,patients with immunosuppression, or patients with known primary cancer. http://pubs.rsna.org/doi/pdf/10.1148/radiol.1979885962 . THIS IS AN ELECTRONICALLY VERIFIED FINAL REPORT 10/30/2021 12:57 PM - Electronically signed by Shaheed Reich M.D. JA: VIPUL Report ID: [id number] Reading Location: [place] [address] Jose Mo MD IMG CT PROCEDURES Final Resul t documented in this encounter Visit Diagnoses Diagnosis Pulmonary nodule Other diseases of lung, not elsewhere classified documented in this encounter Care Teams Qc Analyst Relationship Specialty Start Date End Date Jose Mo MD [address] [address] PCP - General 08/22/18 Jose Mo MD [address] [address] 08/22/18 documented as of this encounter
--- OUTSIDE RECORDS SUMMARY | 2024-03-26 21:33 | XMS_ITS | Encounter Summary ---
Author Organization [facility] Address [address] [facility] [address] [place] [address] Phone Care Team Providers Care Director Operations Name Role Phone Jose Mo MD Primary Care Provider [phone] Jose Mo MD Unavailable [phone] Encounter Details Date Type Department Care Team (Late st Contact Info) Description 11/27/2021 Telephone [facility] Infectious Diseases [address] [place] [address] [address] [place] [address] Ania Topete, ELEVATOR CONSTRUCTOR HYDRAULIC [address] [facility] [address] [place] [address] Social History Tobacco Use Types [...] on file 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 Gender Identity Male 04/18/2020 9:24 AM SPECTROGRAPH OPERATOR Sexual Orientation Straight 04/18/2020 9: 24 AM SPECTROGRAPH OPERATOR documented as of this encounter Miscellaneous Notes * Telephone Encounter - Ania Topete NP - 11/27/2021 8:19 AM CDT Called patient to check in and see how he was feeling, currently on fosfomycin for assumed UTI, LMOR documented in this encounter Plan of Treatment Not on file documented as of this encounter Visit Diagnoses Not on filedocumented in this encounter Care Teams Director Operations Relationship Specialty Start Date End Date Jose Mo MD [address] [facility] [address] [address] PCP - General 08/22/18 Jose Mo MD [address] [address] 08/22/18 documented as of this encounter
--- OUTSIDE RECORDS SUMMARY | 2024-03-26 21:33 | XMS_ITS | Encounter Summary ---
Author Organization [facility] Address [address] [place] [address] Phone Care Team Providers Care Laborer Salvage Name Role Phone Jose Mo MD Primary Care Provider [phone] Jose Mo MD Unavailable [phone] Encounter Details Date Type Department Care Team (Late st Contact Info) Description 08/30/2021 Orders Only [facility] ([facility]) - [facility] Urology [address] [facility] 11th [place] [address] [place] [address] Jhonathan Helm MD [address] [place], [place] [id number] Elevated PSA (Primary Dx) Social History Tobacco [...] on file 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 Gender Identity Male 04/18/2020 9:24 AM FUEL EFFICIENT AUTOMOBILE DESIGNER Sexual Orientation Straight 04/18/2020 9: 24 AM FUEL EFFICIENT AUTOMOBILE DESIGNER documented as of this encounter Miscellaneous Notes * Addendum Note - Erinn Viera - 08/30/2021 3:03 PM CDTAddended by: ERINN VIERA on: 02/20/2022 05:59 PM Modules accepted: Orders EFFICIENT AUTOMOBILE DESIGNER documented in this encounter Plan of Treatment Not on file documented as of this encounter Results * PSA screen (02/20/2022 6:04 PM FUEL EFFICIENT AUTOMOBILE DESIGNER) PSA-Total 1.36 <=3.90 ng/mL KENAN MAXWELL Comment: [...] data last revised 21. Testing performed by: [facility], [address] [place] [address]., [id number] Blood 02/20/2022 6:04 PM FUEL EFFICIENT AUTOMOBILE DESIGNER 02/20/2022 6:08 PM FUEL EFFICIENT AUTOMOBILE DESIGNER us Jhonathan Helm MD LAB BLOOD ORDERABLES Final Resul t KENAN [address] [facility] Department [place] [address] documented in this encounter Visit Diagnoses Diagnosis Elevated PSA- Primary Elevated prostate specific antigen (PSA) documented in this encounter Care Teams Laborer Salvage Relationship Specialty Start Date End Date Jose Mo MD [address] [place] [address] PCP - General 08/22/18 Jose Mo MD [address] [place] [address] 08/22/18 documented as of this encounter
--- OUTSIDE RECORDS SUMMARY | 2024-03-26 21:33 | XMS_ITS | Encounter Summary ---
Author Organization [facility] Address [address] [place] [address] Phone Care Team Providers Care Talent Acquisition Sourcer Name Role Phone Jose Mo MD Primary Care Provider [phone] Jose Mo MD Unavailable [phone] Reason for Visit * Reason Comments Follow-up Encounter Details Date Type Department Care Team (Late Contact Info) Description 08/14/2021 11:00 AM CDT Office Visit [facility] Infectious Diseases [address] [place] [address] [address] [place] [address] Ania Topete, INSTRUCTOR MILITARY SCIENCE [address] [facility] [address] [place] [address] Recurrent UTI (Primary Dx) Social History Tobacco [...] on file 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 Gender Identity Male 04/18/2020 9:24 AM PAPER SLITTER Sexual Orientation Straight 04/18/2020 9: 24 AM PAPER SLITTER documented as of this encounter Last Filed Vital Signs Vital Sign Reading Time Taken Comments Blood Pressure 167/83 08/14/2021 11:22 AM CDT Pulse 75 08/14/2021 11:22 AM CDT Temperature 36.1 ??C (97 ??F) 08/14/2021 11:22 AM CDT Respiratory Rate - - Oxygen Saturation - - Inhaled Oxygen Concentration - - Weight 114.8 kg (253 lb) 08/14/2021 11:22 AM CDT Height 172.7 cm (5' 8 ) 08/14/2021 11:22 AM CDT Body Mass Index 38.47 08/14/2021 11:22 AM CDT documented in this encounter Progress Notes * Ania Topete, MARCY - 08/14/2021 11:00 AM CDT Infectious Disease Follow Up HPI: 51 y.o. male with chief complaint of [...] Vitamin C in January 2021 and has only had one UTI (07/21/21) since then which was treated with Levaquin. He saw Dr. Mo with urology in June 2021. Today he reports to be doing well, he denies fevers, chills, night sweats, dysuria, urgency, frequency, incontinence. PMH: see hpi Past Medical History: Diagnosis Date ??? Chipped [...] capsule esomeprazole DR (NexIUM) 40 mg capsule hydrocortisone 2.5 % cream ibuprofen (ADVIL,MOTRIN) 800 mg tablet methenamine (HIPREX) 1 gram tablet miconazole 2 % powder mupirocin (BACTROBAN) 2 % ointment predniSONE (DELTASONE) 10 mg tablet psyllium, aspartame, SF (METAMUCIL SF) 3.4 gram packet tadalafiL (CIALIS) 5 mg tablet tamsulosin (FLOMAX) 0.4 mg extended release capsule Current Outpatient Medications Ordered in [facility] Medication Sig Dispense Refill ??? ascorbic acid (VITAMIN C) 1,000 mg tablet Take 4 tablets (4,000 mg total) by mouth daily (Patient taking differently: Take 1,000 mg by mouth 2 (two) times a day after breakfast and dinner With Methanimine) ??? bisacodyl (DULCOLAX) 10 mg suppository Insert 1 suppository (10 mg total) into the rectum dailyas needed for constipation (2nd line) 12 suppository ??? carBAMazepine XR (TEGretol XR) 200 mg 12 hr tablet TAKE 1 TABLET BY MOUTH FIVE TIMES DAILY DIRECTED (Patient taking differently: Take 1,000 mg by mouth nightly) 450 tablet 1 ??? cyclobenzaprine (FLEXERIL) 10 mg tablet TAKE 1 TABLET(10 MG) BY MOUTH THREE TIMES DAILY NEEDED FOR MUSCLE SPASMS (Patient taking differently: Take 5 mg by mouth 2 (two) times a day as needed) 30 tablet 0 ??? diphenhydrAMINE (BENADRYL) 25 mg capsule Take 1 tablet/capsule (25 mg total) by mouth every 6 (six) hours as needed for itching (Patient taking differently: Take 25 mg by mouth nightly as needed for itching Takes 1/2 tablet) 30 capsule ??? esomeprazole DR (NexIUM) 40 mg capsule Take 40 mg by mouth daily before breakfast ??? hydrocortisone 2.5 % cream Apply topically daily as needed for rash (Patient taking differently: Apply 1 application topically daily as needed for rash) 30 g 1 ??? ibuprofen (ADVIL,MOTRIN) 800 mg tablet Take 800 mg by mouth every 6 (six) hours as needed for pain ??? methenamine (HIPREX) 1 gram tablet Take 1 tablet (1 g total) by mouth 2 (two) times a day with meals (Patient taking differently: Take 1 g by mouth 2 (two) times a day with meals Takes with Vitamin C) 60 tablet 11 ??? miconazole 2 % powder Apply 1 application topically as needed ??? mupirocin (BACTROBAN) 2 % ointment APPLY TOPICALLY TO THE AFFECTED AREA DAILY (Patient taking differently: Apply 1 application topically daily) 22 g 0 ??? predniSONE (DELTASONE) 10 mg tablet Take 10 mg by mouth daily as needed ??? psyllium, aspartame, SF (METAMUCIL SF) 3.4 gram packet Take 1 packet by mouth daily ??? tadalafiL (CIALIS) 5 mg tablet Take 1 tablet (5 mg total) by mouth daily as needed for erectiledysfunction 10 tablet 3 ??? tamsulosin (FLOMAX) 0.4 mg extended release capsule Take 1 capsule (0.4 mg total) by mouth daily 30 capsule 1 No current Epic-ordered facility-administered medications on file. Active LDAs: Allergies Allergen Reactions ??? Adhesive Rash ??? Hydromorphone Hives and Sweating ??? Sulfa (Sulfonamide Antibiotics) Swelling Swelling to legs. Social History Tobacco Use ??? Smoking status: Former Smoker Packs/day: 1.00 Years: 20.00 Pack years: 20.00 Types: Cigarettes Quit date: 2018 Years since quittin.3 ??? Smokeless tobacco: Never Used Substance Use Topics ??? Alcohol use: Not Currently Family history reviewed and non-contributory Family History Problem Relation Age of Onset ??? Heart disease Father Review of Systems: Review of systems per HPI and otherwise all other systems are negative Objective Most Recent : Vitals BP 167/83 (BP Location: Left arm, Patient Position: Sitting) Pulse 75 Temp 36.1 ??C (97 ??F) (Temporal) Ht 172.7 cm (5' 8 ) Wt 114.8 kg (253 lb) BMI 38.47 kg/m?? Physical Exam: General: no acute distress Head, eyes, ears, nose, throat: moist mucous membranes Neck: supple Respiratory: clear to auscultation bilaterally Cardiovascular: regular rate and rhythm, no murmurs, rubs, or gallops, S1/S2 Abdomen: soft, non-tender, non-distended, normal bowel sounds, no hepatosplenomegaly Musculoskeletal: moves all extremities Neurologic: alert and interactive Skin: no rash Assessment/Plan: 49 y.o. male with chief complaint of recurrent UTIs who presents for follow up. #Recurrent UTIs: - Normal cystoscopy in the past, normal renal ultrasound. Has had variable resistance profiles and no antibiotic (other than fosfomycin) guaranteed to work as a suppressive. - He has been on multiple antibiotics in the past cipro, macrobid, fosfomycin to prevent UTI. He was put on methenamine and Vitamin C in January 2021 and has only had one UTI (07/21/21) since then which was treated with Levaquin. - advised to continue methenamine and vitamin C - We discussed the rationale for treatment, [...] Name Priority Date/Time Associated Diagnosis Comments URINALYSIS AND REFLEX TO MICROSCOPIC AND CULTURE Routine 08/14/2021 12:20 PM CDT Recurrent UTI URINALYSIS, MICROSCOPIC ONLY Routine 08/14/2021 12:20 PM CDT Recurrent UTI documented in this encounter Results * (ABNORMAL) Urinalysis, microscopic only (08/14/2021 12:20 PM CDT) WBC, ur 6-10(A) 0 - 5 /HPF [facility] RBC, ur 0-2 0 - 2 /HPF [facility] Mucous, ur Present(A) [facility] Culture Reflex Comment Reflex conditions for urine culture (WBC >10) not met. [facility] Urine, clean voided 08/14/2021 12:20 PM CDT 08/14/2021 3:53 PM CDT us Ania Topete NP LAB URINE ORDERABLES F inal Result [facility] Department [place] [address] * (ABNORMAL) Urinalysis reflex to microscopic and culture Urine, clean voided (08/14/2021 12:20 PM CDT) Color, ur Straw Yellow [facility] Clarity, ur Clear Clear [facility] Specific gravity, ur 1.020 1.003 - 1.030 [facility] pH, urine 6.5 [facility] Protein, ur ql Negative Negative [facility] Glucose, ur ql Negative Negative [facility] Ketones, ur Negative Negative [facility] Bilirubin, ur Negative Negative [facility] Blood, ur Negative Negative [facility] Urobilinogen, ur <2.0 <2.0 mg/dL [facility] Nitrite, ur Negative Negative [facility] Leukocyte esterase, ur Trace(A) Negative [facility] UA reflex comment Reflex to microscopic UA will be performed. [facility] Urine, clean voided 08/14/2021 12:20 PM CDT 08/14/2021 3:53 PM CDT Narrative [facility] - 08/14/2021 3:59 PM CDT ?? Urine pH is affected by diet, medications, systemic acid-base disturbances, and renal tubular function. ??pH may affect urinary stone formation. ??For example, urine pH below 6.0 may help reduce the tendency for calcium phosphate stones and pH greater than 6.0 may reduce the tendency for uric acid stone formation. Source: [employer] Last revised 04-17-2017 Ania Topete NP LAB MICROBIOLOGY - GEN ERAL ORDERABLES Final Result [facility] Department [place] [address] documented in this encounter Visit Diagnoses Diagnosis Recurrent UTI- Primary Urinary tract infection, site not specified documented in this encounter Care Teams Talent Acquisition Sourcer Relationship Specialty Start Date End Date Jose Mo MD [address] [facility] [address] [place] [address] PCP - General 08/22/18 Jose Mo MD [address] [facility] [address] [place] [address] 08/22/18 documented as of this encounter
--- OUTSIDE RECORDS SUMMARY | 2024-03-26 21:33 | XMS_ITS | Encounter Summary ---
Author Organization [facility] Address [address] [place] [address] Care Team Providers Care Oracle Engineer Name Role Phone Jose Mo MD Primary Care Provider Jose Mo MD Unavailable [phone] Encounter Details Date Type Department Care Team (Late st Contact Info) Description 07/17/2021 Orders Only [facility] [address] [facility] [address] [place] [address] Jose Mo MD [address] [facility] [address] [place] [address] Social History Tobacco Use Types [...] on file 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 Gender Identity Male 04/18/2020 9:24 AM SIMULATION TECH Sexual Orientation Straight 04/18/2020 9: 24 AM SIMULATION TECH documented as of this encounter Ordered Prescriptions Prescription Sig Dispense Quantity Refills Last Filled Start Date End Date neomycin-polymyxin -HC (CORTISPORIN) 3.5-10,000-1 mg/mL-unit/mL-% otic suspension Administer 2 drops into each ear 4 (four) times a day for 10 days 10 mL 07/17/2021 2 documented in this encounter Progress Notes * Celina Quintero MA - 07/17/2021 4:36 PM CDT africaip documented in this encounter Plan of Treatment Not on file documented as of this encounter Visit Diagnoses Not on filedocumented in this encounter Care Teams Oracle Engineer Relationship Specialty Start Date End Date Jose Mo MD [address] [address] PCP - General 08/22/18 Jose Mo MD [address] [address] 08/22/18 documented as of this encounter
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
--- OUTSIDE RECORDS SUMMARY | 2024-03-26 21:33 | XMS_ITS | Encounter Summary ---
Author Organization [facility] Address [address] [place] [address] Phone Care Team Providers Care Sawing And Assembly Supervisor Name Role Phone Jose Mo MD Primary Care Provider [phone] Jose Mo MD Unavailable [phone] Encounter Details Date Type Department Care Team (Late st Contact Info) Description 11/16/2021 Orders Only [facility] Infectious Diseases [address] [place] [address] [address] [place] [address] Weston Jamison MD [address] [place] [address] Recurrent UTI (Primary Dx) Social History Tobacco [...] on file Legal Sex Male 6:24 PM 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 Gender Identity Male 04/18/2020 9:24 AM 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 Sexual Orientation Straight 04/18/2020 9: 24 AM 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 documented as of this encounter Plan of Treatment Not on file documented as of this encounter Procedures Procedure Name Priority Date/Time Associated Diagnosis Comments MICROSCOPIC EXAMINATION Routine 11/16/2021 3:07 PM CDT URINALYSIS AND REFLEX TO MICROSCOPIC AND CULTURE Routine 11/16/2021 3:07 PM CDT Recurrent UTI documented in this encounter Results * Microscopic Examination (11/16/2021 3:07 PM CDT) WBC, ur 0-5 0 - 5 /hpf [facility] - 01 RBC, ur None seen 0 - 2 /hpf [facility] - 01 Epithelial cells, non-renal, ur None seen 0 - 10 /hpf [facility] - 01 Casts None seen None seen /lpf [facility] - 01 Bacteria, ur None seen None seen/Few [facility] - 01 11/16/2021 3:07 PM CDT 11/16/2021 Narrative [facility] - 11/17/2021 6:09 AM CDT Performed at: ??01 - [facility] [address] ??[id number] Fellmongering Machine Operator: Flex Rivera PhD, Phone: ??[phone] us Weston Jamison MD LAB BLOOD ORDERABLES Final R esult [facility] - 01 * Urinalysis reflex to microscopic and culture Urine, clean voided (11/16/2021 3:07 PM CDT) Specific [place] 1.017 1.005 - 1.030 [facility] - 01 pH, ur 6.5 5.0 - 7.5 [facility] - 01 Color, ur Yellow Yellow [facility] - 01 Appearance, ur Clear Clear [facility] - 01 Leukocyte esterase, ur Negative Negative [facility] - 01 Protein, ur Trace Negative/Tra ce [facility] - 01 Glucose, ur [...] to a Urine Culture. Urine, clean voided 11/16/2021 3:07 PM CDT 11/16/2021 Narrative [facility] - 11/17/2021 6:09 AM CDT Performed at: ??01 - [facility] [address] ??[id number] Fellmongering Machine Operator: Flex Rivera PhD, Phone: ??[phone] us Weston Jamison MD LAB MICROBIOLOGY - GENERAL O RDERABLES Final Result [facility] documented in this encounter Visit Diagnoses Diagnosis Recurrent UTI- Primary Urinary tract infection, site not specified documented in this encounter Care Teams Sawing And Assembly Supervisor Relationship Specialty Start Date End Date Jose Mo MD [address] [address] PCP - General 08/22/18 Jose Mo MD [address] [address] 08/22/18 documented as of this encounter
--- OUTSIDE RECORDS SUMMARY | 2024-03-26 21:33 | XMS_ITS | Encounter Summary ---
Author Organization [facility] Address [address] [place] [address] Phone Care Team Providers Care Electrical Line Worker Name Role Phone Jose Mo MD Primary Care Provider [phone] Jose Mo MD Unavailable Encounter Details Date Type Department Care Team (Late st Contact Info) Description 08/30/2021 Telephone [facility] ([facility]) - [facility] Urology [address] [facility] [address] [place] [address] [place] [address] Joelle Hendricks Social History Tobacco Use Types Packs/Day Years [...] on file Legal Sex Male 6:24 PM STARS ANALYTICAL LEAD Gender Identity Male 04/18/2020 9:24 AM STARS ANALYTICAL LEAD Sexual Orientation Straight 04/18/2020 9: 24 AM STARS ANALYTICAL LEAD documented as of this encounter Miscellaneous Notes * Telephone Encounter - Joelle Mireles - 08/30/2021 10:00 AM CDT Called pt and LM to scheduled his [address] follow up [address] Helm. documented in this encounter Plan of Treatment Not on file documented as of this encounter Visit Diagnoses Not on filedocumented in this encounter Care Teams Electrical Line Worker Relationship Specialty Start Date End Date Jose Mo MD [address] [address] PCP - General 08/22/18 Jose Mo MD [address] [address] 08/22/18 documented as of this encounter
--- OUTSIDE RECORDS SUMMARY | 2024-03-26 21:33 | XMS_ITS | Encounter Summary ---
Author Organization [facility] Address [address] [place] [address] Phone Care Team Providers Care Corporate Quality Engineer Name Role Phone Jose Mo MD Primary Care Provider [phone] Jose Mo MD Unavailable [phone] Encounter Details Date Type Department Care Team (Late st Contact Info) Description 01/07/2022 Orders Only [facility] Infectious Diseases [address] [place] [address] [address] [place] [address] Ania Topete, EXTRUSION BENDER [address] [facility] [address] [place] [address] Social History Tobacco Use Types [...] on file Legal Sex Male 6:24 PM SURGICAL PROCESSOR Gender Identity Male 04/18/2020 9:24 AM SURGICAL PROCESSOR Sexual Orientation Straight 04/18/2020 9: 24 AM SURGICAL PROCESSOR documented as of this encounter Ordered Prescriptions Prescription Sig Dispense Quantity Refills Last Filled Start Date End Date fosfomycin (MONUROL) 3 gram packet Take 3 g by mouth once for 1 dose 4 packet 3 01/07/2022 01/07/2022 documented in this encounter Plan of Treatment Not on file documented as of this encounter Visit Diagnoses Not on filedocumented in this encounter Discontinued Medications Medication Sig Discontinue Reason Start Date End Da te fosfomycin (MONUROL) 3 gram packet TAKE 3 GRAMS( 1 PACKET) BY MOUTH ONCE X 1 DOSE. REPEAT DOSE IN 72 HOURS Reorder 11/12/2021 01/07/2022 documented as of this encounter Care Teams Corporate Quality Engineer Relationship Specialty Start Date End Date Jose Mo MD [address] [address] PCP - General 08/22/18 Jose Mo MD [address] [address] 08/22/18 documented as of this encounter
--- OUTSIDE RECORDS SUMMARY | 2024-03-26 21:33 | XMS_ITS | Encounter Summary ---
Author Organization [facility] Address [address] [place] [address] Phone Care Team Providers Care Supervisor Carbon Paper Coating Name Role Phone Jose Mo MD Primary Care Provider [phone] Jose Mo MD Unavailable [phone] Encounter Details Date Type Department Care Team (Late st Contact Info) Description 11/22/2021 Orders Only [facility] Infectious Diseases [address] [place] [address] [address] [place] [address] Ania Topete, PREPARATION ROOM WORKER [address] [facility] [address] [place] [address] Recurrent UTI (Primary Dx) Social [...] on file Legal Sex Male 6:24 PM EXTENSION DIVISION DIRECTOR Gender Identity Male 04/18/2020 9:24 AM EXTENSION DIVISION DIRECTOR Sexual Orientation Straight 04/18/2020 9: 24 AM EXTENSION DIVISION DIRECTOR documented as of this encounter Plan of Treatment Not on file documented as of this encounter Procedures Procedure Name Priority Date/Time Associated Diagnosis Comments URINE CULTURE, COMPREHENSIVE Routine 11/23/2021 9:09 AM CDT MICROSCOPIC EXAMINATION Routine 11/23/2021 9:09 AM CDT URINALYSIS AND REFLEX TO MICROSCOPIC AND CULTURE Routine 11/23/2021 9:09 AM CDT Recurrent UTI documented in this encounter Results * Urine Culture, Comprehensive (11/23/2021 9:09 AM CDT) Urine culture Final report [facility] - 01 Result 1 Comment [facility] - 01 Comment:No growth in 36 - 48 hours. 11/23/2021 9:09 AM CDT 11/23/2021 Narrative [facility] - 11/26/2021 1:08 PM CDT Performed at: ??01 - [facility] [address] ??[id number] Round Kiln Drawer: Flex Rivera PhD, Phone: ??[phone] Ania Topete NP LAB MICROBIOLOGY - GEN ERAL ORDERABLES Final Result [facility] - 01 * Microscopic Examination (11/23/2021 9:09 AM CDT) WBC, ur 0-5 0 - 5 /hpf [facility] - 01 RBC, ur None seen 0 - 2 /hpf [facility] - 01 Epithelial cells, non-renal, ur None seen 0 - 10 /hpf [facility] - 01 Casts None seen None seen /lpf [facility] - 01 Bacteria, ur None seen None seen/Few [facility] - 01 11/23/2021 9:09 AM CDT 11/23/2021 Narrative [facility] - 11/26/2021 1:08 PM CDT Performed at: ??01 - [facility] ??[id number] Round Kiln Drawer: Flex Rivera PhD, Phone: ??[phone] Ania Topete PREPARATION ROOM WORKER LAB BLOOD ORDERABLES F inal Result [facility] - 01 * (ABNORMAL) Urinalysis reflex to microscopic and culture Urine, clean voided (11/23/2021 9:09 AM CDT) Specific [place] 1.011 1.005 - 1.030 [facility] - 01 pH, ur 6.5 5.0 - 7.5 [facility] - 01 Color, ur Yellow Yellow [facility] - 01 Appearance, ur Clear Clear [facility] - 01 Leukocyte esterase, ur Trace(A) Negative [facility] - 01 Protein, ur Negative [...] to a Urine Culture. Urine, clean voided 11/23/2021 9:09 AM CDT 11/23/2021 Narrative [facility] - 11/26/2021 1:08 PM CDT Performed at: ??01 - [facility] [address] ??[id number] Round Kiln Drawer: Flex Rivera PhD, Phone: ??[phone] Ania Topete NP LAB MICROBIOLOGY - GEN ERAL ORDERABLES Final Result [facility] - 01 documented in this encounter Visit Diagnoses Diagnosis Recurrent UTI- Primary Urinary tract infection, site not specified documented in this encounter Care Teams Supervisor Carbon Paper Coating Relationship Specialty Start Date End Date Jose Mo MD [address] [address] PCP - General 08/22/18 Jose Mo MD [address] [facility] [address] [place] [address] 08/22/18 documented as of this encounter
--- OUTSIDE RECORDS SUMMARY | 2024-03-26 21:33 | XMS_ITS | Encounter Summary ---
Author Organization [facility] Address [address] [place] [address] Phone Care Team Providers Care Automotive Leasing Sales Representative Name Role Phone Jose Mo MD Primary Care Provider [phone] Jose Mo MD Unavailable [phone] Encounter Details Date Type Department Care Team (Late st Contact Info) Description 09/04/2021 Telephone [facility] - [facility] Urology [address] [facility] 11th [place] [address] [place] [address] Joelle Hendricks Social History Tobacco [...] on file Legal Sex 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 He is also aware that he needs a repeat PSA done prior. documented in this encounter Plan of Treatment Not on file documented as of this encounter Visit Diagnoses Not on filedocumented in this encounter Care Teams Automotive Leasing Sales Representative Relationship Specialty Start Date End Date Jose Mo MD [address] [address] PCP - General 08/22/18 Jose Mo MD [address] [address] 08/22/18 documented as of this encounter
--- OUTSIDE RECORDS SUMMARY | 2024-03-26 21:33 | XMS_ITS | Encounter Summary ---
Author Organization [facility] Address [address] [place] [address] Phone Care Team Providers Care Engraver Wood Name Role Phone Jose Mo MD Primary Care Provider [phone] Jose Mo MD Unavailable [phone] Encounter Details Date Type Department Care Team (Late st Contact Info) Description 11/27/2021 Orders Only [facility] Infectious Diseases [address] [place] [address] [address] [place] [address] Ania Topete, RAIL SIGNAL WORKER [address] [facility] [address] [place] [address] Social History Tobacco Use Types [...] on file 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 Sex 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 Gender Identity Male 04/18/2020 9:24 AM BLASTING ENTRY SPECIALIST Sexual Orientation Straight 04/18/2020 9: 24 AM BLASTING ENTRY SPECIALIST documented as of this encounter Ordered Prescriptions Prescription Sig Dispense Quantity Refills Last Filled Start Date End Date levoFLOXacin (LEVAQUIN) 250 mg tablet Take 1 tablet (250 mg total) by mouth daily for 5 days 5 tablet 11/27/2021 12/02/2021 documented in this encounter Plan of Treatment Not on file documented as of this encounter Visit Diagnoses Not on filedocumented in this encounter Care Teams Engraver Wood Relationship Specialty Start Date End Date Jose Mo MD [address] [address] PCP - General 08/22/18 Jose Mo MD [address] [address] 08/22/18 documented as of this encounter
--- OUTSIDE RECORDS SUMMARY | 2024-03-26 21:33 | XMS_ITS | Encounter Summary ---
Author Organization [facility] Address [address] [facility] [address] [place] [address] Phone Care Team Providers Care Claims Service Adjustor Name Role Phone Jose Mo MD Primary Care Provider [phone] Jose Mo MD Unavailable [phone] Reason for Visit * Reason Comments Post-op Prostate bx 05/25 Encounter Details Date Type Department Care Team (Late st Contact Info) Description 06/07/2021 1:40 PM PRESSURE TESTER Office Visit [facility] Surgery [facility] [address] [place] [address] Jhonathan Helm MD [address] [place], [place] [id number] Elevated PSA (Primary Dx) Social History Tobacco [...] on file Legal Sex Male 6:24 PM PRESSURE TESTER Gender Identity Male 04/18/2020 9:24 AM PRESSURE TESTER Sexual Orientation Straight 04/18/2020 9: 24 AM PRESSURE TESTER documented as of this encounter Last Filed Vital Signs Vital Sign Reading Time Taken Comments Blood Pressure 160/80 06/07/2021 1:54 PM PRESSURE TESTER Pulse 53 06/07/2021 1:54 PM PRESSURE TESTER Temperature 36.7 ??C (98.1 ??F) 06/07/2021 1:54 PM CS T Respiratory Rate - - Oxygen Saturation - - Inhaled Oxygen Concentration - - Weight 113.4 kg (250 lb) 06/07/2021 1:54 PM PRESSURE TESTER Height 172.7 cm (5' 8 ) 06/07/2021 1:54 PM PRESSURE TESTER Body Mass Index 38.01 06/07/2021 1:54 PM PRESSURE TESTER documented in this encounter Progress Notes * Jhonathan Helm MD - 06/07/2021 1:40 PM CST Images from the original note were not included. UROLOGY CLINIC FOLLOW UP NOTE Patient Name: Angus Jain Referred by: Jose Mo MD PCP: Jose Mo MD Date of Visit: 06/07/2021 Chief Complaint: Follow up of elevated PSA HPI: Angus Jain is a 51 y.o. male who is presenting for follow up after prostate biopsy. On 04/17/21 I am seeing patient for initial consultation with his . 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 He has long standing history of recurrent UTI followed by [facility] on methenamine. He would typically get febrile UTI every couple of years. Last UTI was 12/2020. He used to see a urologist Dr. Calhoun who . He had a cystoscopy 5-7 years ago and was told he had a diverticulum. He has long standing bowel bladder dysfunction. He evacuated stool with digital stimulation and does have to crede to void. He had not needed ISC. He was acclimated to his baseline voiding and not bothered by it. Had new decreased volume of ejaculate and not anyalpha blockers. Did start super beta prostate recently. Screening PSA was elevated at 7.6 on 01/30/21 then confirmed at 5.7 on 02/08/21 and 6.5 on 03/27/21. Free PSA was 4.9% on 02/08/21. Has no prior history of abdominal surgeries or cardiopulmonary disease. He had an uncle who may have have prostate cancer. GABRIELLA demonstrated small benign gland without suspicious lesions. CT on 04/25/21 was negative for stones, hydronephrosis, masses or diverticulum. Bladder was diffusely thickened. On 05/25/21 I performed transperineal prostate biopsy in OR. Prostate was 15 gm. There was a suspicious prostate lesion in the left posterior medial gland. All cores were negative for malignancy. Today on 06/07/21 he presents for follow up. He has recovered well without issues. Allergies as of 06/07/2021 - Reviewed 06/07/2021 Allergen Reaction Noted ??? Adhesive Rash 05/25/2021 ??? Hydromorphone Hives and Sweating 07/28/2018 ??? Sulfa (sulfonamide antibiotics) Swelling 10/18/2012 Current Outpatient Medications: ??? ascorbic acid (VITAMIN C) 1,000 mg tablet, Take 4 tablets (4,000 mg total) by mouth daily (Patient taking differently: Take 1,000 mg by mouth 2 (two) times a day after breakfast and dinner With Methanimine), Disp: , Rfl: ??? bisacodyl (DULCOLAX) 10 mg suppository, Insert 1 suppository (10 mg total) into the rectum daily as needed for constipation (2nd line), Disp: 12 suppository, Rfl: ??? carBAMazepine XR (TEGretol XR) 200 mg 12 hr tablet, TAKE 1 TABLET BY MOUTH FIVE TIMES DAILY DIRECTED (Patient taking differently: Take 1,000 mg by mouth nightly), Disp: 450 tablet, Rfl: 1 ??? cyclobenzaprine (FLEXERIL) 10 mg tablet, TAKE 1 TABLET(10 MG) BY MOUTH THREE TIMES DAILY NEEDED FOR MUSCLE SPASMS (Patient taking differently: Take 5 mg by mouth 2 (two) times a day as needed), Disp: 30 tablet, Rfl: 0 ??? diphenhydrAMINE (BENADRYL) 25 mg capsule, Take 1 tablet/capsule (25 mg total) by mouth every 6 (six) hours as needed for itching (Patient taking differently: Take 25 mg by mouth nightly as neededfor itching Takes 1/2 tablet), Disp: 30 capsule, Rfl: ??? esomeprazole DR (NexIUM) 40 mg capsule, Take 40 mg by mouth daily before breakfast, Disp: , Rfl: ??? hydrocortisone 2.5 % cream, Apply topically daily as needed for rash (Patient taking differently: Apply 1 application topically daily as needed for rash), Disp: 30 g, Rfl: 1 ??? ibuprofen (ADVIL,MOTRIN) 800 mg tablet, Take 800 mg by mouth every 6 (six) hours as needed for pain, Disp: , Rfl: ??? methenamine (HIPREX) 1 gram tablet, Take 1 tablet (1 g total) by mouth 2 (two) times a day withmeals (Patient taking differently: Take 1 g by mouth 2 (two) times a day with meals Takes with Vitamin C), Disp: 60 tablet, Rfl: 11 ??? miconazole 2 % powder, Apply 1 application topically as needed, Disp: , Rfl: ??? mupirocin (BACTROBAN) 2 % ointment, APPLY TOPICALLY TO THE AFFECTED AREA DAILY (Patient taking differently: Apply 1 application topically daily), Disp: 22 g, Rfl: 0 ??? predniSONE (DELTASONE) 10 mg tablet, Take 10 mg by mouth daily as needed, Disp: , Rfl: ??? psyllium, aspartame, SF (METAMUCIL SF) 3.4 gram packet, Take 1 packet by mouth daily, Disp: , Rfl: ??? tadalafiL (CIALIS) 5 mg tablet, Take 1 tablet (5 mg total) by mouth daily as needed for erectile dysfunction, Disp: 10 tablet, Rfl: 3 ??? tamsulosin (FLOMAX) 0.4 mg extended release capsule, Take 1 capsule (0.4 mg total) by mouth daily, Disp: 30 capsule, Rfl: 1 Past Medical History: Diagnosis Date ??? Chipped [...] Housing Stability: Not on file Review of systems: A complete review of systems was taken from the patient today and reviewed, this was scanned into the patient's chart. As per HPI. Physical Exam: Vitals BP 160/80 Pulse 53 Temp 36.7 ??C (98.1 ??F) (Oral) Ht 172.7 cm (5' 8 ) Wt 113.4 kg (250 lb) BMI 38.01 kg/m?? Constitutional: no acute distress Skin/Integumentary: no exposed bruising or rashes Eyes: Extraocular muscles intact, mucous membranes normal Ears, Nose, Mouth/Throat: neck normal range of motion and trachea midline Respiratory: No coarse breath sounds or wheezing, breathing symmetric Gastrointestinal: Non-distended, soft, non-tender, no hernia, no masses Genitourinary: No CVA tenderness Psychiatric: Mood and affect appropriate, alert and oriented Neurologic: Speech clear, grossly normal movement/strength Lab/Radiology/Diagnostic Review: Results: No results found. Lab Results Component Value Date PSA 6.5 (H) 03/27/2021 PSA 5.7 (H) 02/08/2021 PSA 7.6 (H) 01/30/2021 PSA 0.7 02/23/2020 Assessment/Plan: Angus Jain is a 51 y.o. male with recurrent UTI, bowel bladder dysfunction and elevated PSA with negative biopsy. Discussed the potential for missed malignancy which is low given his prostate size. I recommended getting a 4k score at his follow up in a couple of months. Discussed role of MRIand repeat biopsy in the future. Plan summary: 4K score in August F/u 2 weeks afterwards Jhonathan Helm MD Field Project Manager Urologic Surgery [facility] Please note: Turn Laster completed using M*Modal Fluency Direct speaking software, therefore, variances/typos may occur. SURE TESTER documented in this encounter Plan of Treatment Not on file documented as of this encounter Visit Diagnoses Diagnosis Elevated PSA- Primary Elevated prostate specific antigen (PSA) documented in this encounter Care Teams Claims Service Adjustor Relationship Specialty Start Date End Date Jose Mo MD [address] [address] PCP - General 08/22/18 Jose Mo MD [address] [address] 08/22/18 documented as of this encounter
--- OUTSIDE RECORDS SUMMARY | 2024-03-26 21:33 | XMS_ITS | Encounter Summary ---
Author Organization [facility] Address [address] [facility] [address] [place] [address] Phone Care Team Providers Care Collection Card Clerk Name Role Phone Jose Mo MD Primary Care Provider [phone] Jose Mo MD Unavailable [phone] Encounter Details Date Type Department Care Team (Late st Contact Info) Description 09/12/[address] 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 2 packet 2 09/12/2021 2 documented in this encounter Plan of Treatment Not on file documented as of this encounter Visit Diagnoses Not on filedocumented in this encounter Care Teams Collection Card Clerk Relationship Specialty Start Date End Date Jose Mo MD [address] [address] PCP - General 08/22/18 Jose Mo MD [address] [address] 08/22/18 documented as of this encounter
--- OUTSIDE RECORDS SUMMARY | 2024-03-26 21:33 | XMS_ITS | Encounter Summary ---
Author Organization [facility] Address [address] [place] [address] Care Team Providers Care Vessel Captain Name Role Phone Jose Mo MD Primary Care Provider [phone] Jose Mo MD Unavailable [phone] Encounter Details Date Type Department Care Team (Latest Contact Info) Description 08/14/2021 12:20 PM CDT - 08/14/2021 11:59 PM CDT Hospital Encounter [address] [address] Discharge Disposition: Discharge to home or [...] on file Legal Sex Male 6:24 PM CONCHE OPERATOR Gender Identity Male 04/18/2020 9:24 AM CONCHE OPERATOR Sexual Orientation Straight 04/18/2020 9: 24 AM CONCHE OPERATOR documented as of this encounter Medications [...] on filedocumented in this encounter Care Teams Vessel Captain Relationship Specialty Start Date End Date Jose Mo MD [address] [address] PCP - General 08/22/18 Jose Mo MD [address] [address] 08/22/18 documented as of this encounter
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
--- OUTSIDE RECORDS SUMMARY | 2024-03-26 21:35 | XMS_ITS | Encounter Summary ---
Author Organization [facility] Address [address] [facility] [address] [place] [address] Care Team Providers Care Drum Sealer Name Role Phone Jose Mo MD Primary Care Provider [phone] Jose Mo MD Unavailable [phone] Encounter Details Date Type Department Care Team (Late st Contact Info) Description 05/22/2021 Orders Only [facility] Testing Site - [facility]. [address] [place] [address] Jhonathan Helm MD [address] [facility] [address] [place] [address] Pre-operative laboratory examination (Primary Dx) Social History Tobacco Use Types Packs/Day Years Used Date Smoking Tobacco: Former Cigarettes 1 - 2018 Smokeless Tobacco: Never Alcohol Use Standard Drinks/Week Comments Not Currently 0 (1 standard drink = 0.6 oz pur e alcohol) AUDIT-C Answer Date Recorded Q1: How often do you have a drink containing alc ohol? 2-4 times a month 05/18/2021 Q2: How many drinks containi ng alcohol do you have on a typical day when you are drinking? 3 or 4 05/18/2021 Q3: How often do you have si x or more drinks on one occasion? Never 05/18/2021 Sex and Gender Information Value Date Recorded Sex Assigned at Not on file Legal Sex Male 6:24 PM CUSTOMER SUPPORT ASSOCIATE Gender Identity Male 04/18/2020 9:24 AM CUSTOMER SUPPORT ASSOCIATE Sexual Orientation Straight 04/18/2020 9: 24 AM CUSTOMER SUPPORT ASSOCIATE documented as of this encounter Progress Notes * Odessa Francisco - 05/22/2021 1:34 PM CST Priority: Routine Status: ?? Class: Internal Referral Ordering User: Ragini Lind RMA Auth Provider: JHONATHAN HELM Provider: Jhonathan Helm MD Diagnosis: Elevated PSA Department: [facility] 180 Sched Instruct: ?? Comment: ?? Order Specific Questions Question Answer Comment Testing types: Pre-procedure ?? Date of Px/chemo/treatment/placement/transfer 05/25/2021 ?? Testing site patient will be sent to: [facility] ?? Date testing requested: 05/22/2021 ?? Testing: COVID-19 RNA ?? Is this the first COVID-19 test for this patient? Unknown ?? Does the patient currently work in a healthcare facility with direct patient contact? Unknown ?? Is the patient a resident of a congregate care or living setting? Unknown ?? Please select the performing region: [facility] OMER SUPPORT ASSOCIATE documented in this encounter Plan of Treatment Not on file documented as of this encounter Visit Diagnoses Diagnosis Pre-operative laboratory examination- Primary Pre-procedural laboratory examination documented in this encounter Care Teams Drum Sealer Relationship Specialty Start Date End Date Jose Mo MD [address] [address] PCP - General 08/22/18 Jose Mo MD [address] [address] 08/22/18 documented as of this encounter
--- OUTSIDE RECORDS SUMMARY | 2024-03-26 21:35 | XMS_ITS | Encounter Summary ---
Author Organization [facility] Address [address] [facility] [address] [place] [address] Phone Care Team Providers Care Paint Stripper Name Role Phone Jose Mo MD Primary Care Provider [phone] Jose Mo MD Unavailable [phone] Encounter Details Date Type Department Care Team (Late st Contact Info) Description 04/27/2021 Telephone [facility] [place] [address] Gillian Nugent CMA Social History Tobacco Use Types Packs/Day Years Used Date Smoking Tobacco: Former Cigarettes Smokeless Tobacco: Never Alcohol Use Standard Drinks/Week Comments Not Currently 0 (1 standard drink = 0.6 oz pur e alcohol) Sex and Gender Information Value Date Recorded Sex Assigned at Not on file Legal Sex Male 6:24 PM POWDER TRUCK 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 available on the or the ER TRUCK DRIVER documented in this encounter Plan of Treatment Not on file documented as of this encounter Visit Diagnoses Not on filedocumented in this encounter Care Teams Paint Stripper Relationship Specialty Start Date End Date Jose Mo MD [address] [address] PCP - General 08/22/18 Jose Mo MD [address] [address] 08/22/18 documented as of this encounter
--- OUTSIDE RECORDS SUMMARY | 2024-03-26 21:35 | XMS_ITS | Encounter Summary ---
Author Organization [facility] Address [address] [place] [address] Phone Care Team Providers Care Fight Manager Name Role Phone Jose Mo MD Primary Care Provider [phone] Jose Mo MD Unavailable [phone] Encounter Details Date Type Department Care Team (Late st Contact Info) Description 05/04/2021 Telephone [facility] Surgery [address] [place] [address] [place] [phone] Ragini Lind RMA Social History Tobacco Use Types Packs/Day Years Used Date Smoking Tobacco: Former Cigarettes Smokeless Tobacco: Never Alcohol Use Standard Drinks/Week Comments Not Currently 0 (1 standard drink = 0.6 oz pur e alcohol) Sex and Gender Information Value Date Recorded Sex Assigned at Not on file Legal Sex Male 6:24 PM STEAMER GUM CANDY Gender Identity Male 04/18/2020 9:24 AM STEAMER GUM CANDY Sexual Orientation Straight 04/18/2020 9: 24 AM STEAMER GUM CANDY documented as of this encounter Miscellaneous Notes * Telephone Encounter - Ragini Lind RMA - 05/04/2021 12:34 PM CST LVM for spouse regarding Mr. Jain's surgery on 05/25/21 w/Dr. Helm pt unable to proceed with scheduled date Possible date 06/01/21 Franco LING III MER GUM CANDY documented in this encounter Plan of Treatment Not on file documented as of this encounter Visit Diagnoses Not on filedocumented in this encounter Care Teams Fight Manager Relationship Specialty Start Date End Date Jose Mo MD [address] [address] PCP - General 08/22/18 Jose Mo MD [address] [address] 08/22/18 documented as of this encounter
--- OUTSIDE RECORDS SUMMARY | 2024-03-26 21:35 | XMS_ITS | Encounter Summary ---
Author Organization [facility] Address [address] [place] [address] Phone Care Team Providers Care Multimedia Engineer Name Role Phone Jose Mo MD Primary Care Provider [phone] Jose Mo MD Unavailable [phone] Encounter Details Date Type Department Care Team (Late st Contact Info) Description 05/16/2021 Orders Only [facility] [facility] [address] [place] [address] Jhonathan Helm MD [address] [place] [address] Elevated PSA (Primary Dx) Social History Tobacco Use Types Packs/Day Years Used Date Smoking Tobacco: Former Cigarettes Smokeless Tobacco: Never Alcohol Use Standard Drinks/Week Comments Not Currently 0 (1 standard drink = 0.6 oz pur e alcohol) Sex and Gender Information Value Date Recorded Sex Assigned at Not on file Legal Sex Male 6:24 PM MANAGER OF ENTERPRISE Gender Identity Male 04/18/2020 9:24 AM MANAGER OF ENTERPRISE Sexual Orientation Straight 04/18/2020 9: 24 AM MANAGER OF ENTERPRISE documented as of this encounter Plan of Treatment Not on file documented as of this encounter Visit Diagnoses Diagnosis Elevated PSA- Primary Elevated prostate specific antigen (PSA) documented in this encounter Care Teams Multimedia Engineer Relationship Specialty Start Date End Date Jose Mo MD [address] [address] PCP - General 08/22/18 Jose Mo MD [address] [address] 08/22/18 documented as of this encounter
--- OUTSIDE RECORDS SUMMARY | 2024-03-26 21:36 | XMS_ITS | Encounter Summary ---
Author Organization [facility] Address [address] [place] [address] Care Team Providers Care Senior Financial Reporting Accountant Name Role Phone Jose Mo MD Primary Care Provider Jose Mo MD Unavailable Encounter Details Date Type Department Care Team (Late st Contact Info) Description 04/23/2021 [facility] [address] [facility] [address] [place] [address] Jose Mo MD [address] [facility] [address] [place] [address] Social History Tobacco Use Types Packs/Day Years Used Date Smoking Tobacco: Former Cigarettes Smokeless Tobacco: Never Alcohol Use Standard Drinks/Week Comments Not Currently 0 (1 standard drink = 0.6 oz pur e alcohol) Sex and Gender Information Value Date Recorded Sex Assigned at Not on file Legal Sex Male 6:24 PM TAXICAB DISPATCHER Gender Identity Male 04/18/2020 9:24 AM TAXICAB DISPATCHER Sexual Orientation Straight 04/18/2020 9: 24 AM TAXICAB DISPATCHER documented as of this encounter Miscellaneous Notes * Telephone Encounter - King CelinaALIA love - 04/23/2021 10:02 AM CST ----- Message from Jose Mo MD sent at 03/28/2021 8:48 AM TAXICAB DISPATCHER ----- Refer to urology CAB DISPATCHER * Telephone Encounter - Christine Buchanan MA - 04/23/2021 10:01 AM CST Patient saw urologist last week and is going to do biopsy And ct scan CAB DISPATCHER * Telephone Encounter - Christine Buchanan MA - 04/23/2021 10:01 AM CST ----- Message from Jose Mo MD sent at 03/28/2021 8:48 AM TAXICAB DISPATCHER ----- Refer to urology CAB DISPATCHER documented in this encounter Plan of Treatment Not on file documented as of this encounter Visit Diagnoses Not on filedocumented in this encounter Care Teams Senior Financial Reporting Accountant Relationship Specialty Start Date End Date Jose Mo MD [address] [address] PCP - General 08/22/18 Jose Mo MD [address] [address] 08/22/18 documented as of this encounter
--- OUTSIDE RECORDS SUMMARY | 2024-03-26 21:36 | XMS_ITS | Encounter Summary ---
Author Organization [facility] Address [address] [place] [address] Phone Care Team Providers Care Sexual Assault Counsellor Name Role Phone Jose Mo MD Primary Care Provider [phone] Jose Mo MD Unavailable [phone] Encounter Details Date Type Department Care Team (Late st Contact Info) Description 01/23/2021 Orders Only [facility] Infectious Diseases [address] [place] [address] [address] [place] [address] Ania Topete, AG EQUIPMENT FIELD SERVICE TECHNICIAN [address] [facility] [address] [place] [address] Recurrent UTI (Primary Dx) Social History Tobacco Use Types Packs/Day Years Used Date Smoking Tobacco: Former Cigarettes Smokeless Tobacco: Never Alcohol Use Standard Drinks/Week Comments Not Currently 0 (1 standard drink = 0.6 oz pur e alcohol) Sex and Gender Information Value Date Recorded Sex Assigned at Not on file Legal Sex Male 6:24 PM COTTON WASHER Gender Identity Male 04/18/2020 9:24 AM COTTON WASHER Sexual Orientation Straight 04/18/2020 9: 24 AM COTTON WASHER documented as of this encounter Plan of Treatment Scheduled Orders Name Type Priority Associated Diagnoses Orde r Schedule Urinalysis reflex to microscopic and culture Urine, clean voided Microbiology Routine Recurrent UTI Expected: 01/23/2021 (Approximate), Expires: 01/23/2022 documented as of this encounter Visit Diagnoses Diagnosis Recurrent UTI- Primary Urinary tract infection, site not specified documented in this encounter Care Teams Sexual Assault Counsellor Relationship Specialty Start Date End Date oJse Mo MD [email or web address] [address] PCP - General 08/22/18 Jose Mo MD [email or web address] [address] 08/22/18 documented as of this encounter
--- OUTSIDE RECORDS SUMMARY | 2024-03-26 21:36 | XMS_ITS | Encounter Summary ---
Author Organization [facility] Address [address] [place] [address] Care Team Providers Care Emissions Testing Technician Name Role Phone Jose Mo MD Primary Care Provider Jose Mo MD Unavailable Encounter Details Date Type Department Care Team (Late st Contact Info) Description 04/27/2021 [facility] [address] [facility] [address] [place] [address] Jose Mo MD [address] [facility] [address] [place] [address] Social History Tobacco Use Types Packs/Day Years Used Date Smoking Tobacco: Former Cigarettes Smokeless Tobacco: Never Alcohol Use Standard Drinks/Week Comments Not Currently 0 (1 standard drink = 0.6 oz pur e alcohol) Sex and Gender Information Value Date Recorded Sex Assigned at Not on file Legal Sex Male 6:24 PM PHOTO BOOTH OPERATOR Gender Identity Male 04/18/2020 9:24 AM PHOTO BOOTH OPERATOR Sexual Orientation Straight 04/18/2020 9: 24 AM PHOTO BOOTH OPERATOR documented as of this encounter Miscellaneous Notes * Telephone Encounter - King CelinaALIA - 04/27/2021 8:45 AM CST Pt aware scheduled for 10-29-21 O BOOTH OPERATOR * Telephone Encounter - Celina Quintero MA - 04/27/2021 8:45 AM CST ----- Message from Jose Mo MD sent at 04/25/2021 3:39 PM PHOTO BOOTH OPERATOR ----- Jhonathan, thank you very much for the update. Celina, please schedule him for a follow up ct in 6 months Jose O BOOTH OPERATOR documented in this encounter Plan of Treatment Not on file documented as of this encounter Visit Diagnoses Not on filedocumented in this encounter Care Teams Emissions Testing Technician Relationship Specialty Start Date End Date Jose Mo MD [address] [address] PCP - General 08/22/18 Jose Mo MD [address] [address] 08/22/18 documented as of this encounter
--- OUTSIDE RECORDS SUMMARY | 2024-03-26 21:36 | XMS_ITS | Encounter Summary ---
Author Organization [facility] Address [address] [place] [address] Phone Care Team Providers Care Corporate Legal Secretary Name Role Phone Jose Mo MD Primary Care Provider [phone] Jose Mo MD Unavailable [phone] Encounter Details Date Type Department Care Team (Late st Contact Info) Description 01/02/2021 Orders Only [facility] Infectious Diseases [address] [place] [address] [address] [place] [address] Ania Topete, INTERLACER [address] [facility] [address] [place] [address] Social History Tobacco Use Types Packs/Day Years Used Date Smoking Tobacco: Former Cigarettes Smokeless Tobacco: Never Alcohol Use Standard Drinks/Week Comments Not Currently 0 (1 standard drink = 0.6 oz pur e alcohol) Sex and Gender Information Value Date Recorded Sex Assigned at Not on file Legal Sex Male 6:24 PM NAILHEAD OPERATOR Gender Identity Male 04/18/2020 9:24 AM NAILHEAD OPERATOR Sexual Orientation Straight 04/18/2020 9: 24 AM NAILHEAD OPERATOR documented as of this encounter Plan of Treatment Not on file documented as of this encounter Visit Diagnoses Not on filedocumented in this encounter Care Teams Corporate Legal Secretary Relationship Specialty Start Date End Date Jose Mo MD [address] [address] PCP - General 08/22/18 Jose Mo MD [address] [address] 08/22/18 documented as of this encounter
--- OUTSIDE RECORDS SUMMARY | 2024-03-26 21:36 | XMS_ITS | Encounter Summary ---
Author Organization [facility] Address [address] [place] [address] Phone Care Team Providers Care Auto Body Mechanic Apprentice Name Role Phone Jose Mo MD Primary Care Provider [phone] Jose Mo MD Unavailable [phone] Encounter Details Date Type Department Care Team (Late st Contact Info) Description 01/23/2021 Orders Only [facility] Infectious Diseases [address] [place] [address] [address] [place] [address] Ania Topete, MANAGER OF HOUSEKEEPING [address] [facility] [address] [place] [address] Social History Tobacco Use Types Packs/Day Years Used Date Smoking Tobacco: Former Cigarettes Smokeless Tobacco: Never Alcohol Use Standard Drinks/Week Comments Not Currently 0 (1 standard drink = 0.6 oz pur e alcohol) Sex and Gender Information Value Date Recorded Sex Assigned at Not on file Legal Sex Male 6:24 PM BUS ATTENDANT Gender Identity Male 04/18/2020 9:24 AM BUS ATTENDANT Sexual Orientation Straight 04/18/2020 9: 24 AM BUS ATTENDANT documented as of this encounter Ordered Prescriptions Prescription Sig Dispense Quantity Refills Last Filled Start Date End Date levoFLOXacin (Levaquin) 500 mg tablet Take 0.5 tablets (250 mg total) by mouth daily for 7 days 4 tablet 01/23/2021 1 documented in this encounter Plan of Treatment Not on file documented as of this encounter Visit Diagnoses Not on filedocumented in this encounter Care Teams Auto Body Mechanic Apprentice Relationship Specialty Start Date End Date Jose Mo MD [address] [address] PCP - General 08/22/18 Jose Mo MD [address] [address] 08/22/18 documented as of this encounter
--- OUTSIDE RECORDS SUMMARY | 2024-03-26 21:36 | XMS_ITS | Encounter Summary ---
Author Organization [facility] Address [address] [place] [address] Phone Care Team Providers Care Account Executive Agribusiness Name Role Phone Jose Mo MD Primary Care Provider [phone] Jose Mo MD Unavailable Reason for Visit * Reason Comments Follow-up Encounter Details Date Type Department Care Team (Late st Contact Info) Description 08/08/2020 10:00 AM CDT Office Visit [facility] Infectious Diseases [address] [place] [address] [address] [place] [address] Ania Topete, SCHOOL RESOURCE OFFICER [address] [facility] [address] [place] [address] Recurrent UTI (Primary Dx) Social History Tobacco Use Types Packs/Day Years Used Date Smoking Tobacco: Former Cigarettes Smokeless Tobacco: Never Alcohol Use Standard Drinks/Week Comments Not Currently 0 (1 standard drink = 0.6 oz pur e alcohol) Sex and Gender Information Value Date Recorded Sex Assigned at Not on file Legal Sex Male 6:24 PM BRIM MOLDER Gender Identity Male 04/18/2020 9:24 AM BRIM MOLDER Sexual Orientation Straight 04/18/2020 9: 24 AM BRIM MOLDER documented as of this encounter Last Filed Vital Signs Vital Sign Reading Time Taken Comments Blood Pressure 155/93 08/08/2020 10:11 AM CDT Pulse 69 08/08/2020 10:11 AM CDT Temperature 36.4 ??C (97.5 ??F) 08/08/2020 10:11 AM C DT Respiratory Rate - - Oxygen Saturation - - Inhaled Oxygen Concentration - - Weight 110.2 kg (243 lb) 08/08/2020 10:11 AM CDT Height 172.7 cm (5' 8 ) 08/08/2020 10:11 AM CDT Body Mass Index 36.95 08/08/2020 10:11 AM CDT documented in this encounter Ordered Prescriptions Prescription Sig Dispense Quantity Refills Last Filled Start Date End Date nitrofurantoin monohydrate (MACROBID) 100 mg capsuleIndications :Recurrent UTI Take 1 capsule (100 mg total) by mouth daily 30 capsule 11 08/08/2020 documented in this encounter Progress Notes * Ania Topete, MARCY - 08/08/2020 10:00 AM CDT Infectious Disease Follow Up HPI: 49 y.o. male with chief complaint of [...] or ultrasounds, including kidneys, scrotum, prostate. He was put on nitrofurantoin to prevent recurrent UTI'S, he has not had a UTI since starting Macrobid. PMH: see hpi No past medical history on file. Past Surgical History: Procedure Laterality Date ??? CERVICAL FUSION ??? EAR SURGERY ??? FEMUR FRACTURE SURGERY ? ? ORIF TIBIA & FIBULA FRACTURES HOME MEDICATIONS : ascorbic acid (VITAMIN C) 1,000 mg tablet aspirin 325 mg enteric coated tablet bisacodyl (DULCOLAX) 10 mg suppository carBAMazepine XR (TEGretol XR) 200 mg 12 hr tablet cyclobenzaprine (FLEXERIL) 10 mg tablet diphenhydrAMINE (BENADRYL) [address] (NexIUM) 40 mg capsule hydrocortisone 2.5 % cream hydrocortisone-pramoxine (ANALPRAM-HC) 2.5-1 % rectal cream miconazole 2 % powder mupirocin (BACTROBAN) 2 % ointment nitrofurantoin monohydrate (MACROBID) 100 mg capsule psyllium, aspartame, SF (METAMUCIL SF) 3.4 gram packet tadalafiL (CIALIS) 5 mg tablet Current Outpatient Medications Ordered in [facility] Medication Sig Dispense Refill ??? ascorbic acid (VITAMIN C) 1,000 mg tablet Take 4 tablets (4,000 mg total) by mouth daily ??? aspirin 325 mg enteric coated tablet Take 1 tablet (325 mg total) by mouth 2 (two) times a day for 14 days For blood clot prevention. Take with food. 28 tablet 0 ??? bisacodyl (DULCOLAX) 10 mg suppository Insert 1 suppository (10 mg total) into the rectum dailyas needed for constipation (2nd line) 12 suppository ??? carBAMazepine XR (TEGretol XR) 200 mg 12 hr tablet TAKE 1 TABLET BY MOUTH FIVE TIMES DAILY DIRECTED 150 tablet 1 ??? cyclobenzaprine (FLEXERIL) 10 mg tablet TAKE 1 TABLET(10 MG) BY MOUTH THREE TIMES DAILY NEEDED FOR MUSCLE SPASMS 30 tablet 0 ??? diphenhydrAMINE (BENADRYL) 25 mg capsule Take 1 tablet/capsule (25 mg total) by mouth every 6 (six) hours as needed for itching 30 capsule ??? esomeprazole DR (NexIUM) 40 mg capsule esomeprazole magnesium 40 mg capsule,delayed release ??? hydrocortisone 2.5 % cream Apply topically daily as needed for rash 30 g ??? hydrocortisone-pramoxine (ANALPRAM-HC) 2.5-1 % rectal cream hydrocortisone- pramoxine 2.5 %-1 % rectal cream ??? miconazole 2 % powder Lotrimin AF 2 % topical powder APPLY TO THE AFFECTED AREA(S) BY TOPICAL ROUTE 2 TIMES PER DAY IN THEMORNING AND EVENING ??? mupirocin (BACTROBAN) 2 % ointment APPLY EXTERNALLY TO THE AFFECTED AREA DAILY 22 g 0 ??? nitrofurantoin monohydrate (MACROBID) 100 mg capsule Take 1 capsule (100 mg total) by mouth daily 30 capsule 11 ??? psyllium, aspartame, SF (METAMUCIL SF) 3.4 gram packet Take 1 packet by mouth daily ??? tadalafiL (CIALIS) 5 mg tablet Cialis 5 mg tablet TAKE ONE T PO EVERY DAY No current [facility]-ordered facility-administered medications on file. Anti-infectives (From admission, onward) Start Dose/Rate Route Frequency Ordered Stop 08/08/20 0000 nitrofurantoin monohydrate (MACROBID) 100 mg capsule 100 mg oral Daily 08/08/20 1036 Active LDAs: Allergies Allergen Reactions ??? Hydromorphone Hives Pt is not 100% sure the hives were caused by hydromorphone because he was receiving multiple medications at that time but he says the hives resolved once he stopped it. ??? Sulfa (Sulfonamide Antibiotics) Unknown Social History Tobacco Use ??? Smoking status: Former Smoker Packs/day: 0.50 Types: Cigarettes ??? Smokeless tobacco: Never Used Substance Use Topics ??? Alcohol use: Not Currently Family history reviewed and non-contributory Family History Problem Relation Age of Onset ??? Heart disease Father Review of Systems: Review of systems per HPI and otherwise all other systems are negative Objective Most Recent : Vitals BP 155/93 (BP Location: Right arm, Patient Position: Sitting) Pulse 69 Temp 36.4 ??C (97.5 ??F) (Temporal) Ht 172.7 cm (5' 8 ) Wt 110.2 kg (243 lb) BMI 36.95 kg/m?? Physical Exam: General: no acute distress [...] fosfomycin) guaranteed to work as a suppressive. He was started on macrobid last visit and has not had any UTIs since then, He prefers to continue on macrobid. - We discussed risks and benefits of, nitrofurantoin (long-term risk of pulmonary fibrosis), fosfomycin (too expensive), ciprofloxacin (aortic aneurysm, neuropathy, tendonitis). -per previous ID notes may have to cycle antibiotics in the future with cipro, nitrofurantoin, fosfomycin. The attending physician present in the suite with this Nurse Practitioner is Dr. Jamison. RTC in one year. documented in this encounter Plan of Treatment Not on file documented as of this encounter Procedures Procedure Name Priority Date/Time Associated Diagnosis Comments URINALYSIS AND REFLEX TO MICROSCOPIC Routine 08/08/2020 1:53 PM CDT Recurrent UTI documented in this encounter Results * (ABNORMAL) Urinalysis reflex to microscopic (08/08/2020 1:53 PM CDT) Color, ur Straw Yellow [facility] Clarity, ur Clear Clear [facility] Specific gravity, ur 1.008(L) 1.010 - 1.025 [facility] pH, urine 7 [facility] Protein, ur ql Negative Negative [facility] Glucose, ur ql Negative Negative [facility] Ketones, ur Negative Negative [facility] Bilirubin, ur Negative Negative [facility] Blood, ur Negative Negative [facility] Urobilinogen, ur <2.0 <2.0 mg/dL [facility] Nitrite, ur Negative Negative [facility] Leukocyte esterase, ur Negative Negative [facility] UA reflex comment Reflex conditions for microscopic UA not met. [facility] Urine 08/08/2020 1:53 PM CDT 08/08/2020 4:15 PM CDT Narrative [facility] - 08/08/2020 4:30 PM CDT ?? Urine pH is affected by diet, medications, systemic acid-base disturbances, and renal tubular function. ??pH may affect urinary stone formation. ??For example, urine pH below 6.0 may help reduce the tendency for calcium phosphate stones and pH greater than 6.0 may reduce the tendency for uric acid stone formation. Source: [employer]. Last revised 04-17-2017 Ania Topete NP LAB URINE ORDERABLES F inal Result [facility] One [facility] Department [place] [address] documented in this encounter Visit Diagnoses Diagnosis Recurrent UTI- Primary Urinary tract infection, site not specified documented in this encounter Discontinued Medications Medication Sig Discontinue Reason Start Date End Da te nitrofurantoin monohydrate (MACROBID) 100 mg capsuleIndications:Recurr ent UTI TAKE 1 CAPSULE(100 MG) BY MOUTH DAILY Reorder 07/27/2020 08/08/2020 hydrocortisone-pramoxine (ANALPRAM-HC) 2.5-1 % rectal cream hydrocortisone-pram oxine 2.5 %-1 % rectal cream 08/22/2020 documented as of this encounter Care Teams Account Executive Agribusiness Relationship Specialty Start Date End Date Jose Mo MD [address] [address] PCP - General 08/22/18 Jose Mo MD [address] [address] 08/22/18 documented as of this encounter
--- OUTSIDE RECORDS SUMMARY | 2024-03-26 21:36 | XMS_ITS | Encounter Summary ---
Author Organization [facility] Address [address] [place] [address] Care Team Providers Care Truck Car And Bus Cleaner Name Role Phone Jose Mo MD Primary Care Provider [phone] Jose Mo MD Unavailable Encounter Details Date Type Department Care Team (Late st Contact Info) Description 04/13/2021 [facility] [address] [facility] [address] [place] [address] Jose Mo MD [address] [facility] [address] [place] [address] Social History Tobacco Use Types Packs/Day Years Used Date Smoking Tobacco: Former Cigarettes Smokeless Tobacco: Never Alcohol Use Standard Drinks/Week Comments Not Currently 0 (1 standard drink = 0.6 oz pur e alcohol) Sex and Gender Information Value Date Recorded Sex Assigned at Not on file Legal Sex Male 6:24 PM MEAT PACKAGER Gender Identity Male 04/18/2020 9:24 AM MEAT PACKAGER Sexual Orientation Straight 04/18/2020 9: 24 AM MEAT PACKAGER documented as of this encounter Miscellaneous Notes * Telephone Encounter - King CelinaALIA love - 04/13/2021 1:40 PM CST lmom to call office PACKAGER * Telephone Encounter - Celina Quintero MA - 04/13/2021 1:39 PM CST ----- Message from Jose Mo MD sent at 03/28/2021 8:48 AM MEAT PACKAGER ----- Refer to urology PACKAGER documented in this encounter Plan of Treatment Not on file documented as of this encounter Visit Diagnoses Not on filedocumented in this encounter Care Teams Truck Car And Bus Cleaner Relationship Specialty Start Date End Date Jose Mo MD [id number] [address] PCP - General 08/22/18 Jose Mo MD [id number] [address] 08/22/18 documented as of this encounter
--- OUTSIDE RECORDS SUMMARY | 2024-03-26 21:36 | XMS_ITS | Encounter Summary ---
Author Organization [facility] Address [address] [place] [address] Care Team Providers Care Services Engineer Name Role Phone Jose Mo MD Primary Care Provider [phone] Jose Mo MD Unavailable Encounter Details Date Type Department Care Team (Late st Contact Info) Description 01/28/2021 Orders Only [facility] [address] [facility] [address] [place] [address] Jose Mo MD [address] [facility] [address] [place] [address] Social History Tobacco Use Types Packs/Day Years Used Date Smoking Tobacco: Former Cigarettes Smokeless Tobacco: Never Alcohol Use Standard Drinks/Week Comments Not Currently 0 (1 standard drink = 0.6 oz pur e alcohol) Sex and Gender Information Value Date Recorded Sex Assigned at Not on file Legal Sex Male 6:24 PM PSYCHIATRY PHYSICIAN Gender Identity Male 04/18/2020 9:24 AM PSYCHIATRY PHYSICIAN Sexual Orientation Straight 04/18/2020 9: 24 AM PSYCHIATRY PHYSICIAN documented as of this encounter Plan of Treatment Not on file documented as of this encounter Procedures Procedure Name Priority Date/Time Associated Diagnosis Comments SCAN - RADIOLOGY/IMAGING 01/28/2021 7:04 PM CDT documented in this encounter Results * SCAN - RADIOLOGY/IMAGING (01/28/2021 7:04 PM CDT) Anatomical Region Laterality Modality Other Result [facility] Jose Mo MD Final Result documented in this encounter Visit Diagnoses Not on filedocumented in this encounter Care Teams Services Engineer Relationship Specialty Start Date End Date Jose Mo MD [address] [facility] [address] [place] [address] PCP - General 08/22/18 Jose Mo MD [address] [employer] [address] [place] [address] 08/22/18 documented as of this encounter
--- OUTSIDE RECORDS SUMMARY | 2024-03-26 21:36 | XMS_ITS | Encounter Summary ---
Author Organization [facility] Address [address] [place] [address] Care Team Providers Care Cardiology Technician Name Role Phone Jose Mo MD Primary Care Provider [phone] Jose Mo MD Unavailable [phone] Encounter Details Date Type Department Care Team (Late st Contact Info) Description 04/18/2021 Orders Only [address] [address] Jaimie Cain, RT Social History Tobacco Use Types Packs/Day Years Used Date Smoking Tobacco: Former Cigarettes Smokeless Tobacco: Never Alcohol Use Standard Drinks/Week Comments Not Currently 0 (1 standard drink = 0.6 oz pur e alcohol) Sex and Gender Information Value Date Recorded Sex Assigned at Not on file Legal Sex Male 6:24 PM ATOMIC PHYSICS TEACHER Gender Identity Male 04/18/2020 9:24 AM ATOMIC PHYSICS TEACHER Sexual Orientation Straight 04/18/2020 9: 24 AM ATOMIC PHYSICS TEACHER documented as of this encounter Plan of Treatment Not on file documented as of this encounter Visit Diagnoses Not on filedocumented in this encounter Care Teams Cardiology Technician Relationship Specialty Start Date End Date Jose Mo MD [address] [facility] [address] [place] [address] PCP - General 08/22/18 Jose Mo MD [address] [facility] [address], [place] [address] 08/22/18 documented as of this encounter
--- OUTSIDE RECORDS SUMMARY | 2024-03-26 21:36 | XMS_ITS | Encounter Summary ---
Author Organization [facility] Address [address] [place] [address] Care Team Providers Care Middle School History Teacher Name Role Phone Jose Mo MD Primary Care Provider [phone] Jose Mo MD Unavailable [phone] Encounter Details Date Type Department Care Team (Late st Contact Info) Description 02/20/2021 Orders Only [facility] [address] [facility] [address] [place] [address] Scanning, Provider Social History Tobacco Use Types Packs/Day Years Used Date Smoking Tobacco: Former Cigarettes Smokeless Tobacco: Never Alcohol Use Standard Drinks/Week Comments Not Currently 0 (1 standard drink = 0.6 oz pur e alcohol) Sex and Gender Information Value Date Recorded Sex Assigned at Not on file Legal Sex Male 6:24 PM DEAN OF STUDENTS Gender Identity Male 04/18/2020 9:24 AM DEAN OF STUDENTS Sexual Orientation Straight 04/18/2020 9: 24 AM DEAN OF STUDENTS documented as of this encounter Plan of Treatment Not on file documented as of this encounter Procedures Procedure Name Priority Date/Time Associated Diagnosis Comments DIABETIC - RESULT 02/20/2021 3:36 PM DEAN OF STUDENTS documented in this encounter Results * DIABETIC - RESULT (02/20/2021 3:36 PM DEAN OF STUDENTS) us Provider Scanning Final Result documented in this encounter Visit Diagnoses Not on filedocumented in this encounter Care Teams Middle School History Teacher Relationship Specialty Start Date End Date Jose Mo MD [address] [address] PCP - General 08/22/18 Jose Mo MD [address] [address] 08/22/18 documented as of this encounter
--- OUTSIDE RECORDS SUMMARY | 2024-03-26 21:36 | XMS_ITS | Encounter Summary ---
Author Organization [facility] Address [address] [place] [address] Phone Care Team Providers Care Furniture Shampooer Name Role Phone Jose Mo MD Primary Care Provider [phone] Jose Mo MD Unavailable [phone] Encounter Details Date Type Department Care Team (Late st Contact Info) Description 12/29/2020 Telephone [facility] Infectious Diseases [address] [place] [address] [address] [place] [address] Jacque Mendieta Social History Tobacco Use Types Packs/Day Years Used Date Smoking Tobacco: Former Cigarettes Smokeless Tobacco: Never Alcohol Use Standard Drinks/Week Comments Not Currently 0 (1 standard drink = 0.6 oz pur e alcohol) Sex and Gender Information Value Date Recorded Sex Assigned at Not on file Legal Sex Male 6:24 PM CRYSTAL GAZER Gender Identity Male 04/18/2020 9:24 AM CRYSTAL GAZER Sexual Orientation Straight 04/18/2020 9: 24 AM CRYSTAL GAZER documented as of this encounter Miscellaneous Notes * Telephone Encounter - Nat Beck - 12/29/2020 2:22 PM CDT Fyi I spoke with pt's , he is currently at their local ER. She will call on Friday with an update. * Telephone Encounter - Ania Topete NP - 12/29/2020 1:44 PM CDT Yes lets get a UA with culture * Telephone Encounter - Nat Beck - 12/29/2020 12:03 PM CDT Moriah Please advise if you would like a ua/cx * Telephone Encounter - Jacque Mendieta. - 12/29/2020 8:59 AM CDT Melissa, , patient not feeling well. Fiance thinks that its time to flip flop the medicine. This am, patient has chills, fever. Would like an UA? Needing advise. Fever is 100.1 with tylenol. Fever is going up. Wants to speak to the ID rnNat. documented in this encounter Plan of Treatment Not on file documented as of this encounter Visit Diagnoses Not on filedocumented in this encounter Care Teams Furniture Shampooer Relationship Specialty Start Date End Date Jose Mo MD [address] [address] PCP - General 08/22/18 Jose Mo MD [address] [address] 08/22/18 documented as of this encounter
--- OUTSIDE RECORDS SUMMARY | 2024-03-26 21:36 | XMS_ITS | Encounter Summary ---
Author Organization [facility] Address [address] [place] [address] Phone Care Team Providers Care Sharepoint Specialist Name Role Phone Jose Mo MD Primary Care Provider [phone] Jose Mo MD Unavailable [phone] Reason for Referral * MRI/CAT/PET Scan (Routine) - Closed Specialty Diagnoses / Procedures Referred By Barbara goldman Referred To Contact Radiology Diagnoses Recurrent UTI Procedures CT KUB Stone WO Contrast Jhonathan Helm MD [address] [place] [address] Phone: tel: fax: [address] [address] Referral ID Status Reason Start Date Expiration Date Visits Re quested Visits Authorized [id number] Closed 04/17/2021 05/17/2022 1 1 ATRICS PHYSICIAN Reason for Visit * Reason Comments Elevated PSA Urinary Frequency * Consultation (Routine) - Closed Specialty Diagnoses / Procedures Referred By Barbara goldman Referred To Contact Urology Diagnoses Elevated PSA Jose Mo MD [address] [facility] [address] [place] [address] Phone: tel: fax: [facility] (All Locations) Referral ID Status Reason Start Date Expiration Date V isits Requested Visits Authorized [id number] Closed Specialty Services Required 03/26/2021 04/25/2022 99 [phone] Encounter Details Date Type Department Care Team (Late st Contact Info) Description 04/17/2021 8:00 AM PEDIATRICS PHYSICIAN Office Visit [facility] [address] [facility] [address] [place] [address] Jhonathan Helm MD [address] [place] [address] Recurrent UTI (Primary Dx); Elevated PSA Social History Tobacco Use Types Packs/Day Years Used Date Smoking Tobacco: Former Cigarettes Smokeless Tobacco: Never Alcohol Use Standard Drinks/Week Comments Not Currently 0 (1 standard drink = 0.6 oz pur e alcohol) Sex and Gender Information Value Date Recorded Sex Assigned at Not on file Legal Sex Male 6:24 PM PEDIATRICS PHYSICIAN Gender Identity Male 04/18/2020 9:24 AM PEDIATRICS PHYSICIAN Sexual Orientation Straight 04/18/2020 9: 24 AM PEDIATRICS PHYSICIAN documented as of this encounter Last Filed Vital Signs Vital Sign Reading Time Taken Comments Blood Pressure 172/85 04/17/2021 8:04 AM PEDIATRICS PHYSICIAN Pulse 70 04/17/2021 8:04 AM PEDIATRICS PHYSICIAN Temperature 36.4 ??C (97.6 ??F) 04/17/2021 8:04 AM CS T Respiratory Rate - - Oxygen Saturation - - Inhaled Oxygen Concentration - - Weight 112 kg (247 lb) 04/17/2021 8:04 AM PEDIATRICS PHYSICIAN Height 172.7 cm (5' 8 ) 04/17/2021 8:04 AM PEDIATRICS PHYSICIAN Body Mass Index 37.56 04/17/2021 8:04 AM PEDIATRICS PHYSICIAN documented in this encounter Progress Notes * Jhonathan Helm MD - 04/17/2021 8:00 AM CST Images from the original note were not included. UROLOGY NEW PATIENT NOTE Patient Name: Angus Jain Referred by: Jose Mo MD PCP: Jose Mo MD Date of Visit: 04/17/2021 Chief Complaint: Elevated PSA and Urinary Frequency HPI: Angus Jain is a 50 y.o. male who is presenting for discussion of elevated PSA. Today on 04/17/21 I am seeing patient for initial consultation with his . 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 He has long standing history of recurrent UTI followed by [facility]. He is currently on methenamine which is working well. He typically gets febrile UTI every couple of years. Most recent UTI was in December,. He used to see a urologist Dr. Calhoun who . He had a cystoscopy 5-7 years ago and was told he has a diverticulum. He has long standing bowel bladder dysfunction. He evacuates stool with digital stimulation and does have to crede to void. He has not needed ISC. He is acclimated to his baseline voided and not bothered by it. Does report some new decreased volume of ejaculate and is not on any alpha blockers. Did start super beta prostate recently. His screening PSA was found to be elevated recentlyat 7.6 on 01/30/21 then confirmed to be elevated at 5.7 on 02/08/21 and 6.5 on 03/27/21. Free PSA was 4.9% on 02/08/21. Has no prior history of abdominal surgeries or cardiopulmonary disease. He had anuncle who may have have prostate cancer. Most recent urinalysis demonstrated: Allergies as of 04/17/2021 - Reviewed 04/17/2021 Allergen Reaction Noted ??? Hydromorphone Hives 07/28/2018 ??? Sulfa (sulfonamide antibiotics) Unknown and Swelling 10/18/2012 Current Outpatient Medications: ??? ascorbic acid (VITAMIN C) 1,000 mg tablet, Take 4 tablets (4,000 mg total) by mouth daily, Disp: , Rfl: ??? bisacodyl (DULCOLAX) 10 mg suppository, Insert 1 suppository (10 mg total) into the rectum daily as needed for constipation (2nd line), Disp: 12 suppository, Rfl: ??? carBAMazepine XR (TEGretol XR) 200 mg 12 hr tablet, TAKE 1 TABLET BY MOUTH FIVE TIMES DAILY DIRECTED, Disp: 450 tablet, Rfl: 1 ??? cefuroxime (CEFTIN) 250 mg tablet, Take 1 tablet (250 mg total) by mouth 2 (two) times a day, Disp: 20 tablet, Rfl: 0 ??? cyclobenzaprine (FLEXERIL) 10 mg tablet, TAKE 1 TABLET(10 MG) BY MOUTH THREE TIMES DAILY NEEDED FOR MUSCLE SPASMS, Disp: 30 tablet, Rfl: 0 ??? diphenhydrAMINE (BENADRYL) 25 mg capsule, Take 1 tablet/capsule (25 mg total) by mouth every 6 (six) hours as needed for itching, Disp: 30 capsule, Rfl: ??? esomeprazole DR (NexIUM) 40 mg capsule, esomeprazole magnesium 40 mg capsule,delayed release, Disp: , Rfl: ??? hydrocortisone 2.5 % cream, Apply topically daily as needed for rash, Disp: 30 g, Rfl: ??? methenamine (HIPREX) 1 gram tablet, Take 1 tablet (1 g total) by mouth 2 (two) times a day withmeals, Disp: 60 tablet, Rfl: 11 ??? miconazole 2 % powder, Lotrimin AF 2 % topical powder APPLY TO THE AFFECTED AREA(S) BY TOPICAL ROUTE 2 TIMES PER DAY IN THEMORNING AND EVENING, Disp: , Rfl: ??? mupirocin (BACTROBAN) 2 % ointment, APPLY TOPICALLY TO THE AFFECTED AREA DAILY, Disp: 22 g, Rfl: 0 ??? predniSONE (DELTASONE) 10 mg tablet, prednisone 10 mg tablet, Disp: , Rfl: ??? psyllium, aspartame, SF (METAMUCIL SF) 3.4 gram packet, Take 1 packet by mouth daily, Disp: , Rfl: ??? tadalafiL (CIALIS) 5 mg tablet, Take 1 tablet (5 mg total) by mouth daily as needed for erectile dysfunction, Disp: 10 tablet, Rfl: 3 ??? aspirin 325 mg enteric coated tablet, Take 1 tablet (325 mg total) by mouth 2 (two) times a dayfor 14 days For blood clot prevention. Take with food., Disp: 28 tablet, Rfl: 0 Past Medical History: Diagnosis Date ??? GERD (gastroesophageal reflux disease) ??? Seizures (CMS/HCC) (HCC) Past Surgical History: Procedure Laterality Date ??? CERVICAL FUSION ??? EAR SURGERY ??? FEMUR FRACTURE SURGERY ? ? ORIF TIBIA & FIBULA FRACTURES Family History Problem Relation Age of Onset [...] Cigarettes ??? Smokeless tobacco: Never Used Substance and Sexual Activity ??? Alcohol use: Not Currently ??? Drug use: Not on file ??? Sexual activity: Not on file Other [...] As per HPI. Physical Exam: Vitals BP (!) 172/85 Pulse 70 Temp 36.4 ??C (97.6 ??F) (Oral) Ht 172.7 cm (5' 8 ) Wt 112 kg (247 lb) BMI 37.56 kg/m?? Constitutional: no acute distress Skin/Integumentary: no exposed bruising or rashes Eyes: Extraocular muscles intact, mucous membranes normal Ears, Nose, Mouth/Throat: neck normal range of motion and trachea midline Respiratory: No coarse breath sounds or wheezing, breathing symmetric Gastrointestinal: Non-distended, soft, non-tender, no hernia, no masses Genitourinary: No CVA tenderness, GABRIELLA: small benign gland without suspicious nodularity Psychiatric: Mood and affect appropriate, alert and oriented Neurologic: Speech clear, lower extremity weakness, able to ambulate with walker Lab/Radiology/Diagnostic Review: Results: No results found. Lab Results Component Value Date PSA 6.5 (H) 03/27/2021 PSA 5.7 (H) 02/08/2021 PSA 7.6 (H) 01/30/2021 PSA 0.7 02/23/2020 Lab Results Component Value Date COLORU Yellow 01/30/2021 CLARITYU Clear 08/08/2020 GLUCOSEUR Negative 01/30/2021 BILIRUBINUR Negative 08/08/2020 KETONESU Negative 01/30/2021 SPECGRAVU 1.008 (L) 08/08/2020 UROBILINOGEN <2.0 08/08/2020 No results found for this or any previous visit from the past 30 days. Assessment/Plan: Angus Jain is a 50 y.o. 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 I recommended getting a bladder scan today in clinic to evaluate baseline PVR although he is currently doing ok with regards to LUTS and recurrent UTI thanks to infectious disease. Would also recommend getting a baseline CT to evaluate the previously reported diverticulum and for renal calculi. With regards to his elevated PSA, given its persistent elevation I am concerned this is secondary to a malignancy rather than infection and recommended getting prostate biopsy. Discussed performing this in office vs. OR. He prefers to have this performed in the OR. Discussed risks of infection, retention, hematuria and hematospermia. Will work on finding a date in May Plan summary: PVR today CT Transperineal prostate biopsy in OR 05/11/21 Jhonathan Helm MD Employer Relations Representative Urologic Surgery [facility] Please note: Civil Engineering Director completed using M*Modal Fluency Direct speaking software, therefore, variances/typos may occur. ATRICS PHYSICIAN documented in this encounter Miscellaneous Notes * Addendum Note - Atiya De Guzman RMA - 04/17/2021 8:00 AM CSTAddended by: ATIYA DE GUZMAN on: 04/17/2021 08:49 AM Modules accepted: Orders ATRICS PHYSICIAN * Addendum Note - Belinda Lind RMA - 04/17/2021 8:00 AM CSTAddended by: BELINDA LIND on: 04/17/2021 08:51 AM Modules accepted: Orders ATRICS PHYSICIAN * Addendum Note - Belinda Lind RMA - 04/17/2021 8:00 AM CSTAddended by: BELINDA LIND on: 04/17/2021 08:55 AM Modules accepted: Orders ATRICS PHYSICIAN documented in this encounter Plan of Treatment Not on file documented as of this encounter Procedures Procedure Name Priority Date/Time Associated Diagnosis Comments POCT URINALYSIS DIPSTICK Routine 04/17/2021 8:48 AM PEDIATRICS PHYSICIAN Elevated PSA Recurrent UTI MEASURE POST VOID RESIDUAL Routine 04/17/2021 Elevated PSA Recurrent UTI documented in this encounter Results * CT KUB Stone WO Contrast (04/25/2021 7:58 AM PEDIATRICS PHYSICIAN) Anatomical Region Laterality Modality Abdomen N/A Computed Tomogra phy 04/25/2021 9:03 AM PEDIATRICS PHYSICIAN Narrative 04/25/2021 9:16 AM PEDIATRICS PHYSICIAN EXAM DESCRIPTION: ?? CT KUB STONE WO CONTRAST REASON FOR STUDY: ?? Recurrent UTI, evaluate for stones ?? Recurrent UTIs x 4 years ?Elev PSA ?? TECHNIQUE: CT scan of the abdomen and pelvis performed without intravenous and ??without ??oral contrast using helical scanning technique. Reconstructed coronal and sagittal MPR images reviewed. All images stored on PACS. ?? Automated exposure control was used as a dose optimization technique for this examination. COMPARISON: ?? None FINDINGS: The sensitivity for detection of visceral lesions is diminished without the use of intravenous contrast. There is a 3 mm right lower lobe pulmonary nodule (axial image 6) and 5 mm left lower lobe pulmonary nodule (axial image 15). There is no hydronephrosis or obstructing urolithiasis. ??The urinary bladder wall appears thickened. ??There is no bowel obstruction. ??Normal appendix. ?? There are few colonic diverticula without acute diverticulitis. ??There are vascular calcifications. ??There are fat containing groin hernias. ??There is partially visualized hardware in the right proximal femur with femoral diaphyseal fracture seen on bit setter radiograph. 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 IMPRESSION: ?? 1. ?? No obstructing urolithiasis or hydronephrosis. 2. ?? The urinary bladder wall appears diffusely thickened, which could be due to cystitis given the history. ??This could also reflect bladder outlet obstruction. 3. ?? Indeterminate pulmonary nodules, the larger measuring 5 mm. ??According to Fleischner society recommendations, if this is a low risk patient, no follow-up is necessary; if a high risk patient, follow-up CT in 12 months could be considered. THIS IS AN ELECTRONICALLY VERIFIED FINAL REPORT 04/25/2021 9:16 AM - Electronically signed by ??Rolo Luu M.D. JR: D: ??04/25/2021 9:16 AM T: ??04/25/2021 9:16 AM Report ID: [id number] Reading Location: ??[id number] Procedure Note Rolo Luu MD - 04/25/2021 EXAM DESCRIPTION: CT KUB STONE WO CONTRAST REASON FOR STUDY: Recurrent UTI, evaluate for stones Recurrent UTIs x 4 years Elev PSA TECHNIQUE: CT scan of the abdomen and pelvis performed without intravenousand without oral contrast using helical scanning technique. Reconstructed coronal and sagittal MPR images reviewed. All images stored on PACS. Automated exposure control was used as a dose optimization technique forthis examination. COMPARISON: None FINDINGS: The sensitivity for detection of visceral lesions is diminished withoutthe use of intravenous contrast. There is a 3 mm right lower lobe pulmonary nodule (axial image 6) and 5 mm left lower lobe pulmonary nodule (axial image 15). There is no hydronephrosis or obstructing urolithiasis. The urinarybladder wall appears thickened. There is no bowel obstruction. Normal appendix. There are few colonic diverticula without acute diverticulitis. There are vascular calcifications. There are fat containing groin hernias. Thereis partially visualized hardware in the right proximal femur with femoral diaphyseal fracture seen on bit setter radiograph. There is osteoarthritis atthe hips. IMPRESSION: 1. No obstructing urolithiasis or hydronephrosis. 2. The urinary bladder wall appears diffusely thickened, which could bedue to cystitis given the history. This could also reflect bladder outlet obstruction. 3. Indeterminate pulmonary nodules, the larger measuring 5 mm.According to Fleischner society recommendations, if this is a low risk patient, no follow-up is necessary; if a high risk patient, follow-up CT in 12 months could be considered. THIS IS AN ELECTRONICALLY VERIFIED FINAL REPORT 04/25/2021 9:16 AM - Electronically signed by Rolo Luu M.D. JR: Report ID: [id number] Reading Location: [place] [address] Jhonathan Helm MD IMG CT PROCEDURES Final Result * Urine culture Urine, bladder (04/17/2021 8:51 AM PEDIATRICS PHYSICIAN) Report Final Report: No growth KENAN Comment:Testing performed by : [facility], [address] [place]., [address] Urine, bladder 04/17/2021 8: 51 AM PEDIATRICS PHYSICIAN 04/17/2021 7:34 PM PEDIATRICS PHYSICIAN Narrative KENAN - 04/19/2021 7:06 AM PEDIATRICS PHYSICIAN Testing performed by [facility] Microbiology Laboratory ([phone]) Jhonathan Helm MD LAB MICROBIOLOGY - GENERAL ORDER KOFI Final Result KENAN [address] [facility] Department [place] [address] * POCT urinalysis dipstick (04/17/2021 8:48 AM PEDIATRICS PHYSICIAN) Glucose, ur, POC Negative Negative mg/dL Ketones, ur, POC Negative Negative Blood, ur, POC Negative Negative pH, ur, POC 6.0 5.0 - 8.0 Protein, ur, POC Negative Negative Nitrite, ur, POC Negative Negative Leukocytes, ur, POC Negative Negative Lot Number x Urine 04/17/2021 8:48 AM PEDIATRICS PHYSICIAN Jhonathan Helm MD POINT OF CARE TEST ORDERABLES Fi nal Result * Measure post void residual (04/17/2021) Narrative Belinda Lind RMA - 04/17/2021 Measurement of post-voiding residual urine and/or bladder capacity by ultrasound, non-imaging. ??PVR = 31mL M.Lind RMA III Jhonathan Helm MD NURSING ASSESSMENTS Final Result documented in this encounter Visit Diagnoses Diagnosis Recurrent UTI- Primary Urinary tract infection, site not specified Elevated PSA Elevated prostate specific antigen (PSA) Elevated PSA Elevated prostate specific antigen (PSA) Recurrent UTI Urinary tract infection, site not specified Recurrent UTI Urinary tract infection, site not specified documented in this encounter Historical Medications * This list may reflect changes made after this encounter. predniSONE (DELTASONE) 10 mg tablet Take 10 mg by mouth daily as needed 01/31/2022 added in this encounter Orders Outpatient Referral Count Last Ordered Date Fir st Ordered Date AMB REFERRAL TO UROLOGY 1 04/17/2021 documented in this encounter Care Teams Sharepoint Specialist Relationship Specialty Start Date End Date Jose Mo MD [address] [employer] [address] [address] PCP - General 08/22/18 Jose Mo MD [address] [employer] [address] [address] 08/22/18 documented as of this encounter
--- OUTSIDE RECORDS SUMMARY | 2024-03-26 21:36 | XMS_ITS | Encounter Summary ---
Author Organization [facility] Address [address] [place] [address] Care Team Providers Care Cdl Service Technician Name Role Phone Jose Mo MD Primary Care Provider [phone] Jose Mo MD Unavailable [phone] Encounter Details Date Type Department Care Team (Late st Contact Info) Description 03/26/2021 [facility] [address] [facility] [address] [place] [address] Jose Mo MD [address] [facility] [address] [place] [address] Social History Tobacco Use Types Packs/Day Years Used Date Smoking Tobacco: Former Cigarettes Smokeless Tobacco: Never Alcohol Use Standard Drinks/Week Comments Not Currently 0 (1 standard drink = 0.6 oz pur e alcohol) Sex and Gender Information Value Date Recorded Sex Assigned at Not on file Legal Sex Male 6:24 PM APPLIED MARINE PHYSICS PROFESSOR Gender Identity Male 04/18/2020 9:24 AM APPLIED MARINE PHYSICS PROFESSOR Sexual Orientation Straight 04/18/2020 9: 24 AM APPLIED MARINE PHYSICS PROFESSOR documented as of this encounter Miscellaneous Notes * Telephone Encounter - King CelinaALIA love - 03/26/2021 5:25 PM CST Pt aware sent referral/mk IED MARINE PHYSICS PROFESSOR * Telephone Encounter - Celina Quintero MA - 03/26/2021 5:25 PM CST ----- Message from Jose Mo MD sent at 03/25/2021 9:17 PM APPLIED MARINE PHYSICS PROFESSOR ----- To urology IED MARINE PHYSICS PROFESSOR documented in this encounter Plan of Treatment Not on file documented as of this encounter Visit Diagnoses Not on filedocumented in this encounter Care Teams Cdl Service Technician Relationship Specialty Start Date End Date Jose Mo MD [address] [employer] [address] [address] PCP - General 08/22/18 Jose Mo MD [address] [employer] [address] [address] 08/22/18 documented as of this encounter
--- OUTSIDE RECORDS SUMMARY | 2024-03-26 21:36 | XMS_ITS | Encounter Summary ---
Author Organization [facility] Address [address] [place] [address] Care Team Providers Care Svp Digital Sales Name Role Phone Jose Mo MD Primary Care Provider [phone] Jose Mo MD Unavailable [phone] Encounter Details Date Type Department Care Team (Late st Contact Info) Description 06/09/2020 Orders Only [facility] [address] [facility] [address] [place] [facility] [place] [id number] Scanning, Provider Social History Tobacco Use Types Packs/Day Years Used Date Smoking Tobacco: Every Day Cigarettes Smokeless Tobacco: Never Alcohol Use Standard Drinks/Week Comments Not Currently 0 (1 standard drink = 0.6 oz pur e alcohol) Sex and Gender Information Value Date Recorded Sex Assigned at Not on file Legal Sex Male 6:24 PM DIRECTOR NETWORK DEVELOPMENT Gender Identity Male 04/18/2020 9:24 AM DIRECTOR NETWORK DEVELOPMENT Sexual Orientation Straight 04/18/2020 9: 24 AM DIRECTOR NETWORK DEVELOPMENT documented as of this encounter Plan of Treatment Not on file documented as of this encounter Procedures Procedure Name Priority Date/Time Associated Diagnosis Comments SCAN - RADIOLOGY/IMAGING 06/09/2020 6:51 AM DIRECTOR NETWORK DEVELOPMENT documented in this encounter Results * SCAN - RADIOLOGY/IMAGING (06/09/2020 6:51 AM DIRECTOR NETWORK DEVELOPMENT) Anatomical Region Laterality Modality Other us Provider Scanning Final Result documented in this encounter Visit Diagnoses Not on filedocumented in this encounter Care Teams Svp Digital Sales Relationship Specialty Start Date End Date Jose Mo MD [address] [place] [address] [address] PCP - General 08/22/18 Jose Mo MD [address] [place] [address] [address] 08/22/18 documented as of this encounter
--- OUTSIDE RECORDS SUMMARY | 2024-03-26 21:36 | XMS_ITS | Encounter Summary ---
Author Organization [facility] Address [address] [place] [address] Phone Care Team Providers Care Metallographer Name Role Phone Jose Mo MD Primary Care Provider [phone] Jose Mo MD Unavailable [phone] Encounter Details Date Type Department Care Team (Late st Contact Info) Description 05/18/2020 Orders Only [facility] Infectious Diseases [address] [place] [address] [place] Social History Tobacco Use Types Packs/Day Years Used Date Smoking Tobacco: Every Day Cigarettes Smokeless Tobacco: Never Alcohol Use Standard Drinks/Week Comments Not Currently 0 (1 standard drink = 0.6 oz pur e alcohol) Sex and Gender Information Value Date Recorded Sex Assigned at Not on file Legal Sex Male 6:24 PM TEAM LEADER SURGERY Gender Identity Male 04/18/2020 9:24 AM TEAM LEADER SURGERY Sexual Orientation Straight 04/18/2020 9: 24 AM TEAM LEADER SURGERY documented as of this encounter Plan of Treatment Not on file documented as of this encounter Visit Diagnoses Not on filedocumented in this encounter Care Teams Metallographer Relationship Specialty Start Date End Date Jose Mo MD [address] [facility] [address] [place] [address] PCP - General 08/22/18 Jose Mo MD [address] [address] 08/22/18 documented as of this encounter
--- OUTSIDE RECORDS SUMMARY | 2024-03-26 21:36 | XMS_ITS | Encounter Summary ---
Author Organization [facility] Address [address] [place] [address] Care Team Providers Care Distribution Specialist Name Role Phone Jose Mo MD Primary Care Provider [phone] Jose Mo MD Unavailable [phone] Reason for Referral * Consultation (Routine) - Closed Specialty Diagnoses / Procedures Referred By Contac t Referred To Contact Urology Diagnoses Elevated PSA Jose Mo MD [address] [facility] [address] [place] [address] Phone: tel: fax: [facility] (All Locations) Referral ID Status Reason Start Date Expiration Date V isits Requested Visits Authorized [id number] Closed Specialty Services Required 03/26/2021 04/25/2022 99 99 Question Answer Please select the performing region: [facility] (All Locations) [167] # of visits: 1 Comments Elevated psa ER TIP INSPECTOR Encounter Details Date Type Department Care Team (Late st Contact Info) Description 03/26/2021 Orders Only [facility] [address] [facility] [address] [facility] [place] [address] Jose Mo MD [address] [facility] [address] [place] [address] Elevated PSA (Primary Dx) Social History Tobacco Use Types Packs/Day Years Used Date Smoking Tobacco: Former Cigarettes Smokeless Tobacco: Never Alcohol Use Standard Drinks/Week Comments Not Currently 0 (1 standard drink = 0.6 oz pur e alcohol) Sex and Gender Information Value Date Recorded Sex Assigned at Not on file Legal Sex Male 6:24 PM FILTER TIP INSPECTOR Gender Identity Male 04/18/2020 9:24 AM FILTER TIP INSPECTOR Sexual Orientation Straight 04/18/2020 9: 24 AM FILTER TIP INSPECTOR documented as of this encounter Plan of Treatment Scheduled Referrals Name Type Priority Associated Diagnoses Order Schedule Ambulatory referral to Urology Outpatient Referral Routine Elevated PSA Expected: 04/09/2021 (Approximate), Expires: 03/26/2022 documented as of this encounter Visit Diagnoses Diagnosis Elevated PSA- Primary Elevated prostate specific antigen (PSA) documented in this encounter Care Teams Distribution Specialist Relationship Specialty Start Date End Date Jose Mo MD [address] [address] PCP - General 08/22/18 Jose Mo MD [address] [address] 08/22/18 documented as of this encounter
--- OUTSIDE RECORDS SUMMARY | 2024-03-26 21:36 | XMS_ITS | Encounter Summary ---
Author Organization [facility] Address [address] [facility] [address] [place] [address] Phone Care Team Providers Care Supervisor Building Maintenance Name Role Phone Jose Mo MD Primary Care Provider [phone] Jose Mo MD Unavailable Reason for Visit * Reason Onset Date Comments Appointment 05/18/2020 Encounter Details Date Type Department Care Team (Late st Contact Info) Description 05/18/2020 Telephone [facility] Infectious Diseases [address] [place] [address] [address] [place] [address] Nat Beck Appointment Social History Tobacco Use Types Packs/Day Years Used Date Smoking Tobacco: Every Day Cigarettes Smokeless Tobacco: Never Alcohol Use Standard Drinks/Week Comments Not Currently 0 (1 standard drink = 0.6 oz pur e alcohol) Sex and Gender Information Value Date Recorded Sex Assigned at Not on file Legal Sex Male 6:24 PM CALL CENTER TEAM LEADER Gender Identity Male 04/18/2020 9:24 AM CALL CENTER TEAM LEADER Sexual Orientation Straight 04/18/2020 9: 24 AM CALL CENTER TEAM LEADER documented as of this encounter Miscellaneous Notes * Telephone Encounter - Elizabeth Franklin - 05/18/2020 2:28 PM CST Left VM for pt to call back and schedule appt CENTER TEAM LEADER * Telephone Encounter - [place] - 05/18/2020 1:38 PM CALL CENTER TEAM LEADER Elizabeth, Please see below CENTER TEAM LEADER * Telephone Encounter - Nat Beck - 05/18/2020 11:16 AM CST Please contact pt for return appt with any available provider. CENTER TEAM LEADER documented in this encounter Plan of Treatment Not on file documented as of this encounter Visit Diagnoses Not on filedocumented in this encounter Care Teams Supervisor Building Maintenance Relationship Specialty Start Date End Date Jose Mo MD [address] [address] PCP - General 08/22/18 Jose Mo MD [address] [address] 08/22/18 documented as of this encounter
--- OUTSIDE RECORDS SUMMARY | 2024-03-26 21:36 | XMS_ITS | Encounter Summary ---
Author Organization [facility] Address [address] [place] [address] Care Team Providers Care Attending Ambulatory Care Name Role Phone Jose Mo MD Primary Care Provider [phone] Jose Mo MD Unavailable [phone] Encounter Details Date Type Department Care Team (Latest Contact Info) Description 04/17/2021 12:38 PM BUS CLEANER - 04/17/2021 11:59 PM BUS CLEANER Hospital Encounter [facility] Building [address] [address] Elevated PSA; Recurrent UTI Discharge Disposition: Discharge to home or self care Social History Tobacco Use Types Packs/Day Years Used Date Smoking Tobacco: Former Cigarettes Smokeless Tobacco: Never Alcohol Use Standard Drinks/Week Comments Not Currently 0 (1 standard drink = 0.6 oz pur e alcohol) Sex and Gender Information Value Date Recorded Sex Assigned at Not on file Legal Sex Male 6:24 PM BUS CLEANER Gender Identity Male 04/18/2020 9:24 AM BUS CLEANER Sexual Orientation Straight 04/18/2020 9: 24 AM BUS CLEANER documented as of this encounter Medications at [...] s:constipation Take 1 packet by mouth daily aspirin 325 mg enteric coated tablet Take 1 tablet (325 mg total) by mouth 2 (two) times a day for 14 days For blood clot prevention. Take with food. 28 tablet 9 05/25/19 22 carBAMazepine XR (TEGretol XR) 200 mg 12 hr tablet TAKE 1 TABLET BY MOUTH FIVE TIMES DAILY DIRECTED 450 tablet 1 1 09/05/19 22 cefuroxime (CEFTIN) 250 mg tablet Take 1 tablet (250 mg total) by mouth 2 (two) times a day 20 tablet 1 05/25/19 22 cyclobenzaprine (FLEXERIL) 10 mg tablet TAKE 1 TABLET(10 MG) BY MOUTH THREE TIMES DAILY NEEDED FOR MUSCLE SPASMS 30 tablet 9 02/01/20 22 hydrocortisone 2.5 % cream Apply topically daily as needed for rash 30 g 9 04/24/19 22 methenamine (HIPREX) 1 gram tablet Take 1 [...] Name Priority Date/Time Associated Diagnosis Comments URINE CULTURE Routine 04/17/2021 8:51 AM BUS CLEANER Elevated PSA Recurrent UTI documented in this encounter Results * Urine culture Urine, bladder (04/17/2021 8:51 AM BUS CLEANER) Report Final Report: No growth KENAN MAXWELL Comment:Testing performed by : [facility], [address] [place] [address]., [id number] Urine, bladder 04/17/2021 8: 51 AM BUS CLEANER 04/17/2021 7:34 PM BUS CLEANER Narrative KENAN MAXWELL - 04/19/2021 7:06 AM BUS CLEANER Testing performed by [facility] Microbiology Laboratory ([phone]) us Jhonathan Helm MD LAB MICROBIOLOGY - GENERAL ORDER KOFI Final Result KENAN [address] [facility] Department [place] [address] documented in this encounter Visit Diagnoses Diagnosis Elevated PSA Elevated prostate specific antigen (PSA) Recurrent UTI Urinary tract infection, site not specified documented in this encounter Care Teams Attending Ambulatory Care Relationship Specialty Start Date End Date Jose Mo MD [address] [facility] [address] [place] [address] PCP - General 08/22/18 Jose Mo MD [address] [address] 08/22/18 documented as of this encounter
--- OUTSIDE RECORDS SUMMARY | 2024-03-26 21:36 | XMS_ITS | Encounter Summary ---
Author Organization [facility] Address [address] [place] [address] Care Team Providers Care Forester Silviculture Name Role Phone Jose Mo MD Primary Care Provider Jose Mo MD Unavailable Reason for Visit * Reason Comments Preventative Care Encounter Details Date Type Department Care Team (Late st Contact Info) Description 01/30/2021 3:45 PM CDT Office Visit [facility] [address] [facility] [address] [place] [address] Jose Mo MD [address] [facility] [address] [place] [address] Routine general medical examination at a health care facility (Primary Dx); Recurrent UTI; Quadriparesis (HCC); Seizures (CMS/HCC) (HCC); Closed fracture of right wrist with routine healing, subsequent encounter Social History Tobacco Use Types Packs/Day Years Used Date Smoking Tobacco: Former Cigarettes Smokeless Tobacco: Never Alcohol Use Standard Drinks/Week Comments Not Currently 0 (1 standard drink = 0.6 oz pur e alcohol) Sex and Gender Information Value Date Recorded Sex Assigned at Not on file Legal Sex Male 6:24 PM STONE DRESSER Gender Identity Male 04/18/2020 9:24 AM STONE DRESSER Sexual Orientation Straight 04/18/2020 9: 24 AM STONE DRESSER documented as of this encounter Last Filed Vital Signs Vital Sign Reading Time Taken Comments Blood Pressure 145/75 01/30/2021 4:08 PM CDT Pulse 72 01/30/2021 4:08 PM CDT Temperature - - Respiratory Rate - - Oxygen Saturation - - Inhaled Oxygen Concentration - - Weight 112 kg (247 lb) 01/30/2021 4:08 PM CDT Height 172.7 cm (5' 8 ) 01/30/2021 4:08 PM CDT Body Mass Index 37.56 01/30/2021 4:08 PM CDT documented in this encounter Ordered Prescriptions Prescription Sig Dispense Quantity Refills Last Filled Start Date End Date levoFLOXacin (LEVAQUIN) 500 mg tabletIndications: Urinary Tract/Genitourinar y Infection Take 1 tablet (500 mg total) by mouth daily for 10 days 10 tablet 01/30/2021 02/09/2021 documented in this encounter Progress Notes * Jose Mo MD - 01/30/2021 3:45 PM CDT Images from the original note were not included. Subjective/Objective Patient ID: Angus Jain is a 50 y.o. male. Chief Complaint Preventative Care HPI Here for a wellness visit ?? Patient with a history of spastic quadriplegia currently undergoing physical therapy has been doingreasonably well he has remained off cigarettes. He has not had a urinary tract infection in sometime on suppressive antibiotics. Otherwise he has been feeling well with no chest pain no shortness of breath no nausea. History of recurent uti, does not catheterize. Past Surgical History: Procedure Laterality Date ??? CERVICAL FUSION ??? EAR SURGERY ??? FEMUR FRACTURE SURGERY ? ? ORIF TIBIA & FIBULA FRACTURES Family History Problem Relation Age of Onset ??? Heart disease Father Social History Tobacco Use ??? Smoking status: Former Smoker Packs/day: 0.50 Types: Cigarettes ??? Smokeless tobacco: Never Used Substance Use Topics ??? Alcohol use: Not Currently ??? Drug use: Not on file Immunization History Administered Date(s) Administered ??? Influenza, Quadrivalent, Split, Preservative Free, Intramuscular 12/24/2019 ??? Influenza, Trivalent, Intramuscular 01/22/2013, 01/22/2013, 01/19/2014 ??? Influenza, Trivalent, Preservative Free, Intramuscular 01/23/2013, 01/23/2013 Current Outpatient Medications Medication Sig ??? ascorbate calcium, vitamin C, 500 mg tablet Take 1 tablet by mouth 2 (two) times a day ??? ascorbic acid (VITAMIN C) 1,000 mg tablet Take 4 tablets (4,000 mg total) by mouth daily ??? aspirin 325 mg enteric coated tablet Take 1 tablet (325 mg total) by mouth 2 (two) times a day for 14 days For blood clot prevention. Take with food. ??? bisacodyl (DULCOLAX) 10 mg suppository Insert 1 suppository (10 mg total) into the rectum dailyas needed for constipation (2nd line) ??? carBAMazepine XR (TEGretol XR) 200 mg 12 hr tablet TAKE 1 TABLET BY MOUTH FIVE TIMES DAILY DIRECTED ??? cefuroxime (CEFTIN) 250 mg tablet Take 1 tablet (250 mg total) by mouth 2 (two) times a day ??? cyclobenzaprine (FLEXERIL) 10 mg tablet TAKE 1 TABLET(10 MG) BY MOUTH THREE TIMES DAILY NEEDED FOR MUSCLE SPASMS ??? diphenhydrAMINE (BENADRYL) 25 mg capsule Take 1 tablet/capsule (25 mg total) by mouth every 6 (six) hours as needed for itching ??? esomeprazole DR (NexIUM) 40 mg capsule esomeprazole magnesium 40 mg capsule,delayed release ??? hydrocortisone 2.5 % cream Apply topically daily as needed for rash ??? methenamine (HIPREX) 1 gram tablet Take 1 tablet (1 g total) by mouth 2 (two) times a day with meals ??? miconazole 2 % powder Lotrimin AF 2 % topical powder APPLY TO THE AFFECTED AREA(S) BY TOPICAL ROUTE 2 TIMES PER DAY IN THEMORNING AND EVENING ??? mupirocin (BACTROBAN) 2 % ointment APPLY EXTERNALLY TO THE AFFECTED AREA DAILY ??? psyllium, aspartame, SF (METAMUCIL SF) 3.4 gram packet Take 1 packet by mouth daily ??? tadalafiL (CIALIS) 5 mg tablet Cialis 5 mg tablet TAKE ONE T PO EVERY DAY Review of Systems Constitutional: Negative for fatigue, [...] past 24 hrs: BP Pulse Height Weight 01/30/21 1608 145/75 72 172.7 cm (5' 8 ) 112 kg (247 lb) Wt Readings from Last 3 Encounters: 01/30/21 112 kg (247 lb) 08/08/20 110.2 kg (243 lb) 02/23/20 105.2 kg (232 lb) Physical Exam Constitutional: Appearance: Normal appearance. [...] Diagnoses and all orders for this visit: Routine general medical examination at a health care facility (Z00.00) (Primary) Comments: check screening labs Orders: - POCT glucose - POCT lipid panel - Urinalysis reflex to microscopic and culture Urine; Future - Comprehensive metabolic panel; Future - CBC with auto differential; Future - PSA screen; Future - TSH; Future Recurrent UTI (N39.0) Comments: begin levofloxacin based on previous culture. Refer to gu Orders: - Urinalysis reflex to microscopic and culture Urine; Future - Comprehensive metabolic panel; Future - CBC with auto differential; Future - PSA screen; Future - TSH; Future Quadriparesis (HCC) (G82.50) Seizures (CMS/HCC) (HCC) (R56.9) Closed fracture of right wrist with routine healing, subsequent encounter (S62.101D) Comments: refer to ortho Other orders - levoFLOXacin (LEVAQUIN) 500 mg tablet; Take 1 tablet (500 mg total) by mouth daily for 10 days Labs No results found for: HGBA1C Lab Results Component Value Date POCCHOL 199 01/30/2021 Lab Results Component Value Date POCHDL 48 01/30/2021 Lab Results Component Value Date POCLDL 123 01/30/2021 Lab Results Component Value Date POCTRIG 138 01/30/2021 No results found for: A1C Lab Results Component Value Date CREATININE 1.08 02/23/2020 CREATININE 0.89 07/29/2018 CREATININE 0.79 (L) 07/29/2018 Lab Results Component Value Date COLORU Straw 08/08/2020 CLARITYU Clear 08/08/2020 GLUCOSEUR Negative 08/08/2020 BILIRUBINUR Negative 08/08/2020 KETONESU Negative 08/08/2020 SPECGRAVU 1.008 (L) 08/08/2020 BLOODUR Negative 08/08/2020 UROBILINOGEN <2.0 08/08/2020 Jose Mo MD documented in this encounter Plan of Treatment Not on file documented as of this encounter Procedures Procedure Name Priority Date/Time Associated Diagnosis Comments MICROSCOPIC EXAMINATION Routine 01/30/2021 4:58 PM CDT PSA SCREEN Routine 01/30/2021 4:58 PM CDT Routine general medical examination at a health care facility Recurrent UTI URINALYSIS AND REFLEX TO MICROSCOPIC AND CULTURE Routine 01/30/2021 4:58 PM CDT Routine general medical examination at a health care facility Recurrent UTI CBC WITH AUTO DIFFERENTIAL Routine 01/30/2021 4:58 PM CDT Routine general medical examination at a [facility] care facility Recurrent UTI TSH Routine 01/30/2021 4:58 PM CDT Routine general medical examination at a [facility] care facility Recurrent UTI COMPREHENSIVE METABOLIC PANEL Routine 01/30/2021 4:58 PM CDT Routine general medical examination at a health care facility Recurrent UTI POCT GLUCOSE 36468 Routine 01/30/2021 4: 27 PM CDT Routine general medical examination at a health care facility POCT LIPID PANEL Routine 01/30/2021 4:27 PM CDT Routine general medical examination at a [facility] care facility documented in this encounter Results * Microscopic Examination (01/30/2021 4:58 PM CDT) WBC, ur None seen 0 - 5 /hpf [facility] - 01 RBC, ur None seen 0 - 2 /hpf [facility] - 01 Epithelial cells, non-renal, ur None seen 0 - 10 /hpf [facility] - 01 Casts None seen None seen /lpf [facility] - 01 Bacteria, ur None seen None seen/Few [facility] - 01 01/30/2021 4:58 PM CDT 01/30/2021 Narrative [facility] - 01/31/2021 8:16 AM CDT Performed at: ??01 - [facility] [address] ??[id number] Expeditionary Fighting Vehicle Crewman: Flex Rivera PhD, Phone: ??[phone] Jose Mo MD LAB BLOOD ORDERABLES Final Re sult Performing Organization Address [facility] Co de Phone Number [facility] * TSH (01/30/2021 4:58 PM CDT) Pathologist [facility] TSH 1.250 0.450 - 4.500 uIU/mL [facility] - 01 Blood specimen (specimen) 01/30/2021 4:58 PM CDT 01/30/2021 Narrative [facility] - 01/31/2021 8:16 AM CDT Performed at: ??01 - [address] ??[id number] Expeditionary Fighting Vehicle Crewman: Flex Rivera PhD, Phone: ??[phone] Jose Mo MD LAB BLOOD ORDERABLES Final Re sult Performing Organization Address [facility] de Phone Number [facility] * (ABNORMAL) PSA screen (01/30/2021 4:58 PM CDT) [facility] PSA 7.6(H) 0.0 - 4.0 ng/mL [facility] - Comment: Job ECLIA methodology. According to the [place] [employer], Serum PSA should decrease and [...] presence or absence of malignant disease. Blood specimen (specimen) 01/30/2021 4:58 PM CDT 01/30/2021 Narrative [facility] - 01/31/2021 8:16 AM CDT Performed at: ??[address] ??[id number] Expeditionary Fighting Vehicle Crewman: Flex Rivera PhD, Phone: ??[phone] us Jose Mo MD LAB BLOOD ORDERABLES Final Re sult [facility] - 01 * (ABNORMAL) CBC with auto differential (01/30/2021 4:58 PM CDT) WBC 3.3(L) 3.4 - 10.8 x10E3/uL [facility] - 01 RBC 4.17 4.14 - 5.80 x10E6/uL [facility] - 01 Hgb 12.3(L) 13.0 - 17.7 g/dL [facility] - 01 Hct 36.6(L) 37.5 - 51.0 % [facility] - 01 MCV 88 79 - 97 fL [facility] - 01 MCH 29.5 26.6 - 33.0 pg [facility] - 01 MCHC 33.6 31.5 - 35.7 g/dL [facility] - 01 Rdw 12.9 11.6 - 15.4 % [facility] - 01 Platelets 188 150 - 450 x10E3/uL [facility] - 01 Neutrophils pct 45 Not Estab. % [facility] - 01 Lymphs pct 38 Not Estab. % [facility] - 01 Monocytes pct 14 Not Estab. % [facility] - 01 Eosinophils pct 2 Not Estab. % [facility] - 01 Basophil pct 1 Not Estab. % [facility] - 01 Neutrophil abs 1.5 1.4 - 7.0 x10E3/uL [facility] - 01 Lymphs (Absolute) 1.3 0.7 - 3.1 x10E3/uL [facility] - 01 Monocyte abs 0.5 0.1 - 0.9 x10E3/uL [facility] - 01 Eosinophils, abs 0.1 0.0 - 0.4 x10E3/uL [facility] - 01 Basophils, abs 0.0 0.0 - 0.2 x10E3/uL [facility] - 01 Immature Granulocytes 0 Not Estab. % [facility] - 01 Immature Grans (Abs) 0.0 0.0 - 0.1 x10E3/uL [facility] - 01 Blood specimen (specimen) 01/30/2021 4:58 PM CDT 01/30/2021 Narrative [facility] - 01/31/2021 8:16 AM CDT Performed at: ??01 - [facility], [place], [place] ??[id number] Expeditionary Fighting Vehicle Crewman: Flex Rivera PhD, Phone: ??[phone] us Jose Mo MD LAB BLOOD ORDERABLES Final Re sult [facility] - * (ABNORMAL) Comprehensive metabolic panel (01/30/2021 4:58 PM CDT) Glucose 113(H) 65 - 99 mg/dL [facility] - 01 BUN 14 6 - 24 mg/dL [facility] - 01 Creatinine, Serum 0.73(L) 0.76 - 1.27 mg/dL [facility] - 01 eGFR If NonAfricn Am 109 >59 mL/min/1. 73 [facility] - 01 eGFR If Africn Am 126 >59 mL/min/1. 73 [facility] - 01 Comment: In accordance with recommendations from the NKF-ASN Task force, ??[facility] is in the process of updating its eGFR calculation to the ??2020 CKD-EPI creatinine equation that estimates kidney function ??without a race variable. BUN/creat ratio 19 9 - 20 [facility] - 01 Sodium 142 134 - 144 mmol/L [facility] - 01 Potassium, sr 4.6 3.5 - 5.2 mmol/L [facility] - 01 Chloride 102 96 - 106 mmol/L [facility] - 01 CO2 24 20 - 29 mmol/L [facility] - 01 Calcium 9.1 8.7 - 10.2 mg/dL [facility] - 01 Protein, sr 7.2 6.0 - 8.5 g/dL [facility] - 01 Albumin 4.6 4.0 - 5.0 g/dL [facility] - 01 Globulin, Total 2.6 1.5 - 4.5 g/dL [facility] - 01 A/G Ratio 1.8 1.2 - 2.2 [facility] - 01 Bilirubin, Total <0.2 0.0 - 1.2 mg/dL [facility] - 01 Alk phos 127(H) 44 - 121 IU/L [facility] - 01 Comment:Please note refere nce interval change AST 22 0 - 40 IU/L [facility] - 01 ALT 22 0 - 44 IU/L [facility] - 01 Blood specimen (specimen) 01/30/2021 4:58 PM CDT 01/30/2021 Narrative [facility] - 01/31/2021 8:16 AM CDT Performed at: ??01 - [facility] [address] ??[id number] Expeditionary Fighting Vehicle Crewman: Flex Rivera PhD, Phone: ??[phone] Jose Mo MD LAB BLOOD ORDERABLES Final Re sult [facility] - 01 * Urinalysis reflex to microscopic and culture Urine (01/30/2021 4:58 PM CDT) Specific [place] 1.012 1.005 - 1.030 [facility] - 01 pH, [...] ot reflex to a Urine Culture. Urine 01/30/2021 4:58 PM CDT 01/30/2021 Narrative [facility] - 01/31/2021 8:16 AM CDT Performed at: ??01 - [facility] [address] ??[id number] Expeditionary Fighting Vehicle Crewman: Flex Rivera PhD, Phone: ??[phone] Jose Mo MD LAB MICROBIOLOGY - GENERAL OR DERABLES Final Result [facility] - 01 * POCT lipid panel (01/30/2021 4:27 PM CDT) Cholesterol, POC 199 mg/dL HDL, POC 48 mg/dL Triglycerides, POC 138 mg/dL LDL Cholesterol POC 123 mg/dL Capillary blood 01/30/2021 4 :27 PM CDT us Jose Mo MD POINT OF CARE TEST ORDERABLES Final Result * (ABNORMAL) POCT glucose (01/30/2021 4:27 PM CDT) Glucose Blood, POC 110 mg/dL Blood specimen (specimen) 01/30/2021 4:27 PM CDT us Jose Mo MD POINT OF CARE TEST ORDERABLES Final Result documented in this encounter Visit Diagnoses Diagnosis Routine general medical examination at a health care facility- Primary Recurrent UTI Urinary tract infection, site not specified Quadriparesis (HCC) Unspecified quadriplegia Seizures (HCC) Other convulsions Closed fracture of right wrist with routine healing, subsequent encounter documented in this encounter Discontinued Medications Medication Sig Discontinue Reason Start Date End Da te levoFLOXacin (Levaquin) 500 mg tablet Take 0.5 tablets (250 mg total) by mouth daily for 7 days Therapy completed 01/23/2021 01/30/2021 documented as of this encounter Care Teams Forester Silviculture Relationship Specialty Start Date End Date Jose Mo MD [address] [address] PCP - General 08/22/18 Jose Mo MD [address] [address] 08/22/18 documented as of this encounter
--- OUTSIDE RECORDS SUMMARY | 2024-03-26 21:36 | XMS_ITS | Encounter Summary ---
Author Organization [facility] Healthcare Address [address] [place] [address] Care Team Providers Care Wheelchair Driver Name Role Phone Jose Mo MD Primary Care Provider [phone] Jose Mo MD Unavailable Reason for Referral * MRI/CAT/PET Scan (Routine) - Closed Specialty Diagnoses / Procedures Referred By Barbara goldman Referred To Contact Radiology Diagnoses Recurrent UTI Procedures CT KUB Stone WO Contrast Jhonathan Helm MD [address] [place] [address] Phone: tel: fax: [address] [phone] Referral ID Status Reason Start Date Expiration Date Visits Re quested Visits Authorized [id number] Closed 04/17/2021 05/17/2022 1 1 OMIC DEVELOPMENT COORDINATOR Reason for Visit * MRI/CAT/PET Scan (Routine) - Closed Specialty Diagnoses / Procedures Referred By Barbara goldman Referred To Contact Radiology Diagnoses Recurrent UTI Procedures CT KUB Stone WO Contrast Jhonathan Helm MD [address] [place] [address] Phone: tel: fax: [address] [phone] Referral ID Status Reason Start Date Expiration Date Visits Re quested Visits Authorized [id number] Closed 04/17/2021 05/17/2022 1 1 Encounter Details Date Type Department Care Team (Latest Contact Info) Description 04/25/2021 7:30 AM ECONOMIC DEVELOPMENT COORDINATOR - 04/25/2021 11:59 PM ECONOMIC DEVELOPMENT COORDINATOR Hospital Encounter [address] [address] Recurrent UTI Discharge Disposition: Discharge to home or self care Social History Tobacco Use Types Packs/Day Years Used Date Smoking Tobacco: Former Cigarettes Smokeless Tobacco: Never Alcohol Use Standard Drinks/Week Comments Not Currently 0 (1 standard drink = 0.6 oz pur e alcohol) Sex and Gender Information Value Date Recorded Sex Assigned at Not on file Legal Sex Male 6:24 PM ECONOMIC DEVELOPMENT COORDINATOR Gender Identity Male 04/18/2020 9:24 AM ECONOMIC DEVELOPMENT COORDINATOR Sexual Orientation Straight 04/18/2020 9: 24 AM ECONOMIC DEVELOPMENT COORDINATOR documented as of this encounter Medications [...] Name Priority Date/Time Associated Diagnosis Comments CT KUB STONE WO CONTRAST Schedule Routine, Read Routine (OP Routine) 04/25/2021 7:58 AM ECONOMIC DEVELOPMENT COORDINATOR Recurrent UTI documented in this encounter Results * CT KUB Stone WO Contrast (04/25/2021 7:58 AM ECONOMIC DEVELOPMENT COORDINATOR) Anatomical Region Laterality Modality Abdomen N/A Computed Tomogra phy 04/25/2021 9:03 AM ECONOMIC DEVELOPMENT COORDINATOR Narrative 04/25/2021 9:16 AM ECONOMIC DEVELOPMENT COORDINATOR EXAM DESCRIPTION: ?? CT KUB STONE WO [...] femur with femoral diaphyseal fracture seen on emergency medicine nurse practitioner radiograph. 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 [...] AM - Electronically signed by ??Rolo Luu M.D., JR: D: ??04/25/2021 9:16 AM T: ??04/25/2021 9:16 AM Report ID: [id number] [place] Location: ??[id number] Procedure Note Rolo Luu MD - 04/25/2021 [...] femur with femoral diaphyseal fracture seen on emergency medicine nurse practitioner radiograph. There is osteoarthritis atthe hips. IMPRESSION: [...] AM - Electronically signed by Rolo Luu M.D., JR: Report ID: [id number] [place] Location: [id number] Jhonathan Helm MD IM CT PROCEDURES Final Result documented in this encounter Visit Diagnoses Diagnosis Recurrent UTI Urinary tract infection, site not specified documented in this encounter Care Teams Wheelchair Driver Relationship Specialty Start Date End Date Jose Mo MD [address] [address] PCP - General 08/22/18 Jose Mo MD [address] [address] 08/22/18 documented as of this encounter
--- OUTSIDE RECORDS SUMMARY | 2024-03-26 21:36 | XMS_ITS | Encounter Summary ---
Author Organization [facility] Address [address] [place] [address] Phone Care Team Providers Care Dean Of Boys Name Role Phone Jose Mo MD Primary Care Provider [phone] Jose Mo MD Unavailable [phone] Encounter Details Date Type Department Care Team (Late st Contact Info) Description 01/08/2021 Orders Only [facility] Infectious Diseases [address] [place] [address] [address] [place] [address] Ania Topete, ERGONOMIST [address] [facility] [address] [place] [address] Social History Tobacco Use Types Packs/Day Years Used Date Smoking Tobacco: Former Cigarettes Smokeless Tobacco: Never Alcohol Use Standard Drinks/Week Comments Not Currently 0 (1 standard drink = 0.6 oz pur e alcohol) Sex and Gender Information Value Date Recorded Sex Assigned at Not on file Legal Sex Male 6:24 PM COMMUNICATIONS PROFESSIONAL Gender Identity Male 04/18/2020 9:24 AM COMMUNICATIONS PROFESSIONAL Sexual Orientation Straight 04/18/2020 9: 24 AM COMMUNICATIONS PROFESSIONAL documented as of this encounter Ordered Prescriptions Prescription Sig Dispense Quantity Refills Last Filled Start Date End Date ascorbate calcium, vitamin C, 500 mg tablet Take 1 tablet by mouth 2 (two) times a day 60 tablet 11 01/08/2021 02/07/2021 methenamine (HIPREX) 1 gram tablet Take 1 tablet (1 g total) by mouth 2 (two) times a day with meals 60 tablet 11 01/08/2021 01/21/2022 documented in this encounter Plan of Treatment Not on file documented as of this encounter Visit Diagnoses Not on filedocumented in this encounter Discontinued Medications Medication Sig Discontinue Reason Start Date End Da te nitrofurantoin monohydrate (MACROBID) 100 mg capsuleIndications:Recur rent UTI Take 1 capsule (100 mg total) by mouth daily 08/08/2020 01/08/2021 documented as of this encounter Care Teams Dean Of Boys Relationship Specialty Start Date End Date Jose Mo MD [address] [address] PCP - General 08/22/18 Jose Mo MD [address] [address] 08/22/18 documented as of this encounter
--- OUTSIDE RECORDS SUMMARY | 2024-03-26 21:36 | XMS_ITS | Encounter Summary ---
Author Organization [facility] Address [address] [place] [address] Care Team Providers Care Master Control Engineer Name Role Phone Jose Mo MD Primary Care Provider Jose Mo MD Unavailable Encounter Details Date Type Department Care Team (Late st Contact Info) Description 02/05/2021 Orders Only [facility] [address] [facility] [address] [place] [address] Jose Mo MD [address] [facility] [address] [place] [address] Anemia, unspecified type (Primary Dx); Elevated PSA Social History Tobacco Use Types Packs/Day Years Used Date Smoking Tobacco: Former Cigarettes Smokeless Tobacco: Never Alcohol Use Standard Drinks/Week Comments Not Currently 0 (1 standard drink = 0.6 oz pur e alcohol) Sex and Gender Information Value Date Recorded Sex Assigned at Not on file Legal Sex Male 6:24 PM EAR PULL MACHINE OPERATOR Gender Identity Male 04/18/2020 9:24 AM EAR PULL MACHINE OPERATOR Sexual Orientation Straight 04/18/2020 9: 24 AM EAR PULL MACHINE OPERATOR documented as of this encounter Plan of Treatment Not on file documented as of this encounter Procedures Procedure Name Priority Date/Time Associated Diagnosis Comments CBC WITH AUTO DIFFERENTIAL Routine 02/08/2021 10:53 AM CDT Anemia, unspecified type PSA, TOTAL AND FREE Routine 02/08/2021 1 0:53 AM CDT Elevated PSA documented in this encounter Results * (ABNORMAL) CBC with auto differential (02/08/2021 10:53 AM CDT) WBC 8.2 3.4 - 10.8 x10E3/uL [facility] - 01 RBC 4.26 4.14 - 5.80 x10E6/uL [facility] - 01 Hgb 12.3(L) 13.0 - 17.7 g/dL [facility] - 01 Hct 37.6 37.5 - 51.0 % [facility] - 01 MCV 88 79 - 97 fL [facility] - 01 MCH 28.9 26.6 - 33.0 pg [facility] - 01 MCHC 32.7 31.5 - 35.7 g/dL [facility] - 01 Rdw 13.0 11.6 - 15.4 % [facility] - 01 Platelets 274 150 - 450 x10E3/uL [facility] - 01 Neutrophils pct 73 Not Estab. % [facility] - 01 Lymphs pct 18 Not Estab. % [facility] - 01 Monocytes pct 8 Not Estab. % [facility] - 01 Eosinophils pct 0 Not Estab. % [facility] - 01 Basophil pct 0 Not Estab. % [facility] - 01 Neutrophil abs 6.0 1.4 - 7.0 x10E3/uL [facility] - 01 Lymphs (Absolute) 1.5 0.7 - 3.1 x10E3/uL [facility] - 01 Monocyte abs 0.7 0.1 - 0.9 x10E3/uL [facility] - 01 Eosinophils, abs 0.0 0.0 - 0.4 x10E3/uL [facility] - 01 Basophils, abs 0.0 0.0 - 0.2 x10E3/uL [facility] - 01 Immature Granulocytes 1 Not Estab. % [facility] - 01 Immature Grans (Abs) 0.0 0.0 - 0.1 x10E3/uL [facility] - 01 Blood specimen (specimen) 02/08/2021 10:53 AM CDT 02/08/2021 Narrative [facility] - 02/09/2021 8:16 AM CDT Performed at: ??01 - [address], [place], [place] ??[id number] School Transportation Director: Flex Rivera PhD, Phone: ??[phone] us Jose Mo MD LAB BLOOD ORDERABLES Final Re sult LABRACHELRP [facility] - 01 * (ABNORMAL) PSA, total and free (02/08/2021 10:53 AM CDT) PSA 5.7(H) 0.0 - 4.0 ng/mL [facility] - 01 Comment: Reveal [employer]IA methodology. According to the [employer] [employer], Serum PSA should decrease and [...] the presence or absence of malignant disease. PSA, free 0.28 N/A ng/mL [facility] - 01 Comment:[employer] ECLIA methodol ogy. PSA, free 4.9 % [facility] - 01 Comment: The table below lists the probability of prostate cancer for men with non-suspicious GABRIELLA results and total PSA between 4 and 10 ng/mL, by patient age (Pietro et al, RAFAEL 1998, 279:1542). ?% Free PSA ? 50-64 yr ?65-75 yr ?0.00-10.00% ?56% ? 55% ? 10.01-15.00% ?24% ? 35% ? 15.01-20.00% ?17% ? 23% ? 20.01-25.00% ?10% ? 20% ?>25.00% ? 5% ?9% Please note: ??Pietro et al did not make specific ?recommendations regarding the use of ?percent free PSA for any other population ?of men. Blood specimen (specimen) 02/08/2021 10:53 AM CDT 02/08/2021 Narrative [facility] - 02/09/2021 8:16 AM CDT Performed at: ??01 - [facility] [address] ??[id number] School Transportation Director: Flex Rivera PhD, Phone: ??[phone] us Jose Mo MD LAB BLOOD ORDERABLES Final Re sult Performing Organization Address City/State/[facility] Co pr Phone Number [facility] - 01 documented in this encounter Visit Diagnoses Diagnosis Anemia, unspecified type- Primary Elevated PSA Elevated prostate specific antigen (PSA) documented in this encounter Care Teams Master Control Engineer Relationship Specialty Start Date End Date Jose Mo MD [address] [place] [address] PCP - General 08/22/18 Jose Mo MD [address] [facility] [address] [place] [address] 08/22/18 documented as of this encounter
--- OUTSIDE RECORDS SUMMARY | 2024-03-26 21:36 | XMS_ITS | Encounter Summary ---
Author Organization [facility] Address [address] [place] [address] Care Team Providers Care Steelscope Operator Name Role Phone Jose Mo MD Primary Care Provider [phone] Jose Mo MD Unavailable [phone] Encounter Details Date Type Department Care Team (Late st Contact Info) Description 12/29/2020 Orders Only [facility] [address] [facility] [address] [place] [facility] [place] [address] Scanning, Provider Social History Tobacco Use Types Packs/Day Years Used Date Smoking Tobacco: Former Cigarettes Smokeless Tobacco: Never Alcohol Use Standard Drinks/Week Comments Not Currently 0 (1 standard drink = 0.6 oz pur e alcohol) Sex and Gender Information Value Date Recorded Sex Assigned at Not on file Legal Sex Male 6:24 PM BOTTOM POLISHER Gender Identity Male 04/18/2020 9:24 AM BOTTOM POLISHER Sexual Orientation Straight 04/18/2020 9: 24 AM BOTTOM POLISHER documented as of this encounter Plan of Treatment Not on file documented as of this encounter Procedures Procedure Name Priority Date/Time Associated Diagnosis Comments SCAN - RADIOLOGY/IMAGING 12/29/2020 5:05 PM CDT SCAN - RADIOLOGY/IMAGING 12/29/2020 4:53 PM CDT documented in this encounter Results * SCAN - RADIOLOGY/IMAGING (12/29/2020 5:05 PM CDT) Anatomical Region Laterality Modality Other us Provider Scanning Final Result * SCAN - RADIOLOGY/IMAGING (12/29/2020 4:53 PM CDT) Anatomical Region Laterality Modality Other us Provider Scanning Final Result documented in this encounter Visit Diagnoses Not on filedocumented in this encounter Care Teams Steelscope Operator Relationship Specialty Start Date End Date Jose Mo MD [address] [address] PCP - General 08/22/18 Jose Mo MD [address] [place] [address] 08/22/18 documented as of this encounter
--- OUTSIDE RECORDS SUMMARY | 2024-03-26 21:36 | XMS_ITS | Encounter Summary ---
Author Organization [facility] Healthcare Address [address] [place] [address] Care Team Providers Care Traffic Engineer Name Role Phone Jose Mo MD Primary Care Provider [phone] Jose Mo MD Unavailable Encounter Details Date Type Department Care Team (Late st Contact Info) Description 08/08/2020 4:20 PM CDT Lab [address] [address] Social History Tobacco Use Types Packs/Day Years Used Date Smoking Tobacco: Former Cigarettes Smokeless Tobacco: Never Alcohol Use Standard Drinks/Week Comments Not Currently 0 (1 standard drink = 0.6 oz pur e alcohol) Sex and Gender Information Value Date Recorded Sex Assigned at Not on file Legal Sex Male 6:24 PM SUBSTATION INSPECTOR Gender Identity Male 04/18/2020 9:24 AM SUBSTATION INSPECTOR Sexual Orientation Straight 04/18/2020 9: 24 AM SUBSTATION INSPECTOR documented as of this encounter Plan of Treatment Not on file documented as of this encounter Visit Diagnoses Not on filedocumented in this encounter Care Teams Traffic Engineer Relationship Specialty Start Date End Date Jose Mo MD [address] [place] [address] PCP - General 08/22/18 Jose Mo MD [address] [address] 08/22/18 documented as of this encounter
--- OUTSIDE RECORDS SUMMARY | 2024-03-26 21:36 | XMS_ITS | Encounter Summary ---
Author Organization [facility] Address [address] [place] [address] Care Team Providers Care Cyber Security Architect Name Role Phone Jose Mo MD Primary Care Provider [phone] Jose Mo MD Unavailable [phone] Reason for Referral * MRI/CAT/PET Scan (Routine) - Closed Specialty Diagnoses / Procedures Referred By Contac t Referred To Contact Radiology Diagnoses Pulmonary nodule Procedures CT Chest WO Contrast Jose Mo MD [address] [facility] [address] [place] [address] Phone: tel: fax: [address] [address] Referral ID Status Reason Start Date Expiration Date Visits Re quested Visits Authorized [id number] Closed 04/27/2021 05/27/2022 1 1 UTERIZED TABLE CUTTER Encounter Details Date Type Department Care Team (Late st Contact Info) Description 04/27/2021 Orders Only [facility] [address] [facility] [address] [place] [facility] [place] [id number] Jose Mo MD [address] [facility] [address] [place] [address] Pulmonary nodule (Primary Dx) Social History Tobacco Use Types Packs/Day Years Used Date Smoking Tobacco: Former Cigarettes Smokeless Tobacco: Never Alcohol Use Standard Drinks/Week Comments Not Currently 0 (1 standard drink = 0.6 oz pur e alcohol) Sex and Gender Information Value Date Recorded Sex Assigned at Not on file Legal Sex Male 6:24 PM COMPUTERIZED TABLE CUTTER Gender Identity Male 04/18/2020 9:24 AM COMPUTERIZED TABLE CUTTER Sexual Orientation Straight 04/18/2020 9: 24 AM COMPUTERIZED TABLE CUTTER documented as of this encounter Plan of Treatment Not on file documented as of this encounter Results * CT Chest WO [...] Recent guidelines by the Fleischner Society (Radiology 996903,2017) divides patient into low vs. high risk [...] immunosuppression, or patients with known primary cancer. http://pubs.rsna.org/doi/pdf/10.1148/radiol.3923503225 . THIS IS AN ELECTRONICALLY VERIFIED FINAL REPORT 10/30/2021 12:57 PM - Electronically signed by ??Shaheed Reich M.D. JA: VIPUL D: ??10/30/2021 12:57 PM T: ??10/30/2021 12:57 PM Report ID: [id number] [place] Location: ??[id number] Procedure Note Shaheed Reich MD - 10/30/2021 [...] Recent guidelines by the Fleischner Society (Radiology 904912,2017)divides patient into low vs. high risk (for [...] immunosuppression, or patients with known primary cancer. http://pubs.rsna.org/doi/pdf/10.1148/radiol.3544637008 . THIS IS AN ELECTRONICALLY VERIFIED FINAL REPORT 10/30/2021 12:57 PM - Electronically signed by Shaheed Reich M.D. JA: VIPUL Report ID: [id number] [place] Location: [id number] Jose Mo MD IMG CT PROCEDURES Final Resul t documented in this encounter Visit Diagnoses Diagnosis Pulmonary nodule- Primary Other diseases of lung, not elsewhere classified Pulmonary nodule Other diseases of lung, not elsewhere classified documented in this encounter Care Teams Cyber Security Architect Relationship Specialty Start Date End Date Jose Mo MD [address] [employer] [address] [place] [id number] PCP - General 08/22/18 Jose Mo MD [address] [facility] [address] [place] [address] 08/22/18 documented as of this encounter
--- OUTSIDE RECORDS SUMMARY | 2024-03-26 21:36 | XMS_ITS | Encounter Summary ---
Author Organization [facility] Address [address] [place] [address] Care Team Providers Care Ballaster Name Role Phone Jose Mo MD Primary Care Provider [phone] Jose Mo MD Unavailable Encounter Details Date Type Department Care Team (Late st Contact Info) Description 02/02/2021 [facility] [address] [facility] [address] [place] [address] Jose Mo MD [address] [facility] [address] [place] [address] Social History Tobacco Use Types Packs/Day Years Used Date Smoking Tobacco: Former Cigarettes Smokeless Tobacco: Never Alcohol Use Standard Drinks/Week Comments Not Currently 0 (1 standard drink = 0.6 oz pur e alcohol) Sex and Gender Information Value Date Recorded Sex Assigned at Not on file Legal Sex Male 6:24 PM TIRE REGROOVING MACHINE OPERATOR Gender Identity Male 04/18/2020 9:24 AM TIRE REGROOVING MACHINE OPERATOR Sexual Orientation Straight 04/18/2020 9: 24 AM TIRE REGROOVING MACHINE OPERATOR documented as of this encounter Miscellaneous Notes * Telephone Encounter - Layla Valentine MA - 02/05/2021 9:44 AM CDT Pt informed Orders entered for [facility] * Telephone Encounter - Celina Quintero MA - 02/02/2021 2:34 PM CDT lmom to call office * Telephone Encounter - Celina Quintero MA - 02/02/2021 2:34 PM CDT ----- Message from Jose Mo MD sent at 01/31/2021 8:03 AM CDT ----- Elevated psa, please check psa with free psa Please recheck cbc Urine shows no definite evidence of infection documented in this encounter Plan of Treatment Not on file documented as of this encounter Visit Diagnoses Not on filedocumented in this encounter Care Teams Ballaster Relationship Specialty Start Date End Date Jose Mo MD [address] [address] PCP - General 08/22/18 Jose Mo MD [address] [address] 08/22/18 documented as of this encounter
--- OUTSIDE RECORDS SUMMARY | 2024-03-26 21:37 | XMS_ITS | Encounter Summary ---
Author Organization [facility] Address [address] [facility] [address] [place] [address] Phone Care Team Providers Care Drying Oven Tender Name Role Phone Jose Mo MD Primary Care Provider [phone] Jose Mo MD Unavailable [phone] Reason for Visit * Reason Comments Follow-up Encounter Details Date Type Department Care Team (Late st Contact Info) Description 05/25/2019 9:15 AM LOG MARKER Office Visit [facility] Infectious Diseases [address] [place] [address] [address] [place] [address] Quentin Montoya MD [address] [place] [address] [address] [place] [address] Recurrent UTI (Primary Dx) Social History Tobacco Use Types Packs/Day Years Used Date Smoking Tobacco: Every Day Cigarettes Smokeless Tobacco: Never Alcohol Use Standard Drinks/Week Comments Not Currently 0 (1 standard drink = 0.6 oz pur e alcohol) Sex and Gender Information Value Date Recorded Sex Assigned at Not on file Legal Sex Male 6:24 PM LOG MARKER Gender Identity Male 04/18/2020 9:24 AM LOG MARKER Sexual Orientation Straight 04/18/2020 9: 24 AM LOG MARKER documented as of this encounter Last Filed Vital Signs Vital Sign Reading Time Taken Comments Blood Pressure 133/78 05/25/2019 9:15 AM LOG MARKER Pulse 91 05/25/2019 9:15 AM LOG MARKER Temperature 37.1 ??C (98.7 ??F) 05/25/2019 9:15 AM CS T Respiratory Rate - - Oxygen Saturation - - Inhaled Oxygen Concentration - - Weight 110 kg (242 lb 6.4 oz) 05/25/2019 9:15 AM LOG MARKER Height 172.7 cm (5' 8 ) 05/25/2019 9:15 AM LOG MARKER Body Mass Index 36.86 05/25/2019 9:15 AM LOG MARKER documented in this encounter Ordered Prescriptions Prescription Sig Dispense Quantity Refills Last Filled Start Date End Date nitrofurantoin monohydrate (MACROBID) 100 mg capsule Take 1 capsule (100 mg total) by mouth daily 30 capsule 3 05/25/2019 0 documented in this encounter Progress Notes * Quentin Montoya MD - 05/25/2019 9:15 AM CST Infectious Disease Follow Up HPI: 49 y.o. [...] reported a cystoscopy was normal in ~2014. Since his last visit, he had been doing well on every other week fosfomycin, but then on 05/08, developed fevers and was admitted near his home for sepsis due to epididymitis and UTI due to K. Pneumoniae. He was ultimately treated with levaquin, which completed yesterday. He reports he had no BSI andno abscesses seen on CT scan or ultrasounds, including kidneys, scrotum, prostate. Fosfomycin is now $150 per dose and is breaking the bank. He has no symptoms today of UTI PMH: see hpi History reviewed. No pertinent past medical history. Past Surgical History: Procedure Laterality Date ??? CERVICAL FUSION ??? EAR SURGERY ??? FEMUR FRACTURE SURGERY ? ? ORIF TIBIA & FIBULA FRACTURES HOME MEDICATIONS : ascorbic acid (VITAMIN C) 1,000 mg tablet aspirin 325 mg enteric coated tablet bisacodyl (DULCOLAX) 10 mg suppository calcium carbonate (TUMS) 500 mg calcium (200 mg of elemental calcium) chewable tablet carBAMazepine XR (TEGretol XR) 400 mg 12 hr tablet cyclobenzaprine (FLEXERIL) 10 mg tablet diphenhydrAMINE (BENADRYL) [address] (NexIUM) 40 mg capsule HYDROcodone-acetaminophen (NORCO) 5-325 mg per tablet hydrocortisone 2.5 % cream levoFLOXacin (LEVAQUIN) 750 mg tablet methocarbamol (ROBAXIN) 750 mg tablet MONUROL 3 gram packet nitrofurantoin monohydrate (MACROBID) 100 mg capsule psyllium, aspartame, SF (METAMUCIL SF) 3.4 gram packet Current Outpatient Medications Ordered in [facility] Medication Sig Dispense Refill ??? ascorbic acid [...] for constipation (2nd line) 12 suppository ??? calcium carbonate (TUMS) 500 mg calcium (200 mg of elemental calcium) chewable tablet Take 2 tablets (1,000 mg total) by mouth 2 (two) times a day as needed for heartburn ??? carBAMazepine XR (TEGretol XR) 400 mg 12 hr tablet Take 2 tablets (800 mg total) by mouth nightly 60 tablet 11 ??? cyclobenzaprine (FLEXERIL) 10 mg tablet TAKE [...] mg total) by mouth daily before breakfast for 14 days 14 capsule 0 ??? HYDROcodone-acetaminophen (NORCO) 5-325 mg per tablet Take 1 tablet by mouth every 4 (four) hours as needed for pain 90 tablet 0 ??? hydrocortisone 2.5 % cream Apply topically daily as needed for rash 30 g ??? levoFLOXacin (LEVAQUIN) 750 mg tablet TK 1 T PO QD 0 ??? methocarbamol (ROBAXIN) 750 mg tablet Take 1 tablet (750 mg total) by mouth 3 (three) times a day 30 tablet 0 ??? MONUROL 3 gram packet Take 3 g by mouth every 2 (two) weeks 6 g 2 ??? nitrofurantoin monohydrate (MACROBID) 100 mg capsule Take 1 capsule (100 mg total) by mouth daily 30 capsule 3 ??? psyllium, aspartame, SF (METAMUCIL SF) 3.4 gram packet Take 1 packet by mouth daily 30 packet 11 No current [facility]-ordered facility-administered medications on file. Anti-infectives (From admission, onward) Start Dose/Rate Route Frequency Ordered Stop 05/25/19 0000 nitrofurantoin monohydrate (MACROBID) 100 mg capsule 100 mg oral Daily 05/25/19 1020 09/22/19 2359 Active LDAs: Allergies Allergen Reactions ??? Hydromorphone Hives Pt is not 100% sure the hives were caused by hydromorphone because he was receiving multiple medications at that time but he says the hives resolved once he stopped it. ??? Sulfa (Sulfonamide Antibiotics) Unknown Social History Tobacco Use ??? Smoking status: Current Every Day Smoker Packs/day: 0.50 Types: Cigarettes ??? Smokeless tobacco: Never Used Substance Use Topics ??? Alcohol use: Not Currently Family history reviewed and non-contributory History reviewed. No pertinent family history. Review of Systems: Review of systems per HPI and otherwise all other systems are negative Objective Most Recent : Vitals BP 133/78 (BP Location: Right arm, Patient Position: Sitting) Pulse 91 Temp 37.1 ??C (98.7 ??F) (Tympanic) Ht 172.7 cm (5' 8 ) Wt 110 kg (242 lb 6.4 oz) BMI 36.86 kg/m?? Physical Exam: General: no acute distress [...] who presents for follow up. #Recurrent UTIs: Normal cystoscopy in the past, normal renal ultrasound. Has had variable resistance profiles and no antibiotic (other than fosfomycin) guaranteed to work as a suppressive. We discussed risks and benefits of bactrim (almost always resistant), nitrofurantoin (long-term risk of pulmonary fibrosis), fosfomycin (too expensive), ciprofloxacin (aortic aneurysm, neuropathy, tendonitis). They would like to try nitrofurantoin from now until next visit -nitrofurantoin 100 mg po daily until next clinic visit -may have to cycle antibiotics, with cipro, nitrofurantoin, fosfomycin. This will be a bit of trialand error, which patient and understand MARKER documented in this encounter Plan of Treatment Not on file documented as of this encounter Procedures Procedure Name Priority Date/Time Associated Diagnosis Comments URINALYSIS AND REFLEX TO MICROSCOPIC AND CULTURE Routine 05/25/2019 10:30 AM LOG MARKER Recurrent UTI documented in this encounter Results * Urinalysis reflex to microscopic and culture Urine (05/25/2019 10:30 AM LOG MARKER) Color, ur Yellow Yellow [facility] Clarity, ur Clear Clear [facility] Specific gravity, ur 1.010 1.010 - 1.025 [facility] pH, urine 6 [facility] Protein, ur ql Negative Negative [facility] Glucose, ur ql Negative Negative [facility] Ketones, ur Negative Negative [facility] Bilirubin, ur Negative Negative [facility] Blood, ur Negative Negative [facility] Urobilinogen, ur <2.0 <2.0 mg/dL [facility] Nitrite, ur Negative Negative [facility] Leukocyte esterase, ur Negative Negative [facility] UA reflex comment Reflex conditions for microscopic UA and culture not met. [facility] Urine 05/25/2019 10:3 0 AM LOG MARKER 05/25/2019 2:29 PM LOG MARKER Narrative [facility] - 05/25/2019 2:46 PM LOG MARKER ?? Urine pH is affected by diet, medications, systemic acid-base disturbances, and renal tubular function. ??pH may affect urinary stone formation. ??For example, urine pH below 6.0 may help reduce the tendency for calcium phosphate stones and pH greater than 6.0 may reduce the tendency for uric acid stone formation. Source: [employer]. Last revised 04-17-2017 Quentin Montoya MD LAB MICROBIOLOGY - GENE [facility] ORDERABLES Final Result [facility] Department [place] [address] documented in this encounter Visit Diagnoses Diagnosis Recurrent UTI- Primary Urinary tract infection, site not specified documented in this encounter Care Teams Drying Oven Tender Relationship Specialty Start Date End Date Jose Mo MD [address] [address] PCP - General 08/22/18 Jose Mo MD [address] [address] 08/22/18 documented as of this encounter
--- OUTSIDE RECORDS SUMMARY | 2024-03-26 21:37 | XMS_ITS | Encounter Summary ---
Author Organization [facility] Address [address] [place] [address] Phone Care Team Providers Care Hand Mica Plate Layer Name Role Phone Jose Mo MD Primary Care Provider [phone] Jose Mo MD Unavailable [phone] Reason for Referral * Diagnostic Imaging (Routine) - Closed Specialty Diagnoses / Procedures Referred By Barbara t Referred To Contact Diagnoses Closed displaced oblique fracture of shaft of right tibia, initial encounter Procedures XR Tibia Fibula Right 2 Views Flash Magaña MD Phone: tel: fax: [facility] Referral ID Status Reason Start Date Expiration Date Visits Re quested Visits Authorized [id number] Closed 08/25/2018 03/05/2020 1 1 Reason for Visit * Reason Comments Fracture Encounter Details Date Type Department Care Team (Late st Contact Info) Description 08/25/2018 2:30 PM CDT Office Visit [facility] Orthopaedic Surgery [address] [facility] [address] [place] [address] [place] [address] Flash Magaña MD [address] [facility] [address] [place] [address] Closed displaced oblique fracture of shaft of right tibia, initial encounter (Primary Dx) Social History Tobacco Use Types Packs/Day Years Used Date Smoking Tobacco: Every Day Cigarettes Smokeless Tobacco: Never Alcohol Use Standard Drinks/Week Comments Not Currently 0 (1 standard drink = 0.6 oz pur e alcohol) Sex and Gender Information Value Date Recorded Sex Assigned at Not on file Legal Sex Male 6:24 PM MILK TREATER Gender Identity Male 04/18/2020 9:24 AM MILK TREATER Sexual Orientation Straight 04/18/2020 9: 24 AM MILK TREATER documented as of this encounter Progress Notes * Flash Magaña MD - 08/25/2018 2:30 PM CDT Status post right proximal tibia ORIF and intramedullary nail performed June 2018. Subjective: Patient returns today as he had a fall last week. He is seen in outside ER with concern of a new fracture. He is here for recommendations regarding that. He is having pain in his ankle region. Prior to this he was doing well with therapy and progressing his activities. Objective: Patient is healthy-appearing and well-groomed, in no apparent distress. Patient is oriented to time, place, and person. Incision healing well, no drainage or erythema; no deformity or crepitation. Range of motion: diminished range with pain. Leg warm and well-perfused, capillary refill <2 seconds. Neurovascular exam at baseline Imaging: Right proximal tibia and fibula fracture healing well in proper alignment. No sign of hardware loosening or breakage. Lucency in the right distal fibula which was visualized as well on the 27 of July. Assessment: Mr. Jain is a 48 y.o. male who sustained a right side proximal tibia and fibula fracture status post intramedullary nail and plating. No new fractures.. Plan: 1) WBAT. 2) Return to clinic in 1 months with repeat radiographs right tibia and fibula 3) Pain management: Tylenol 4) Splinting/bracing/casting: None 5) Physical therapy: Continue therapy as prescribed 6) Bone health: Continue as prescribed 7) Call with any questions. 8) Work status: no work documented in this encounter Plan of Treatment Not on file documented as of this encounter Results * XR Tibia Fibula Right 2 Views (08/25/2018 2:53 PM CDT) Anatomical Region Laterality Modality Lower Extremities, Lower Leg Right Com puted Radiography 08/25/2018 2:58 PM CDT Impressions 08/25/2018 2:58 PM CDT 1. ??Healing, internally fixated proximal right tibia fracture. 2. ??Healing, proximal right fibula fracture. Electronically signed by: Brian Rachel M.D. Narrative 08/25/2018 2:58 PM CDT EXAMINATION: Right tibia/fibula 2 views HISTORY: Right proximal tibia and fibula fractures, follow-up. FINDINGS: 2 view examination of the right tibia and fibula is compared with the radiographs dated 07/27/2018. The reduced and internally fixated proximal right tibia fracture continues to heal, instrumentation consisting of an intramedullary nail and medial plate and screw instrumentation. ??The adjacent fracture of the proximal fibula shaft is also healing. ??There is diffuse right leg soft tissue swelling. Procedure Note Brian Rachel MD - 08/25/2018 EXAMINATION: Right tibia/fibula 2 views HISTORY: Right proximal tibia and fibula fractures, follow-up. FINDINGS: 2 view examination of the right tibia and fibula is compared with the radiographs dated 07/27/2018. The reduced and internally fixated proximal right tibia fracture continues to heal, instrumentation consisting of an intramedullary nail and medial plate and screw instrumentation. The adjacent fracture of the proximal fibula shaft is also healing. There is diffuse right leg soft tissue swelling. IMPRESSION: 1. Healing, internally fixated proximal right tibia fracture. 2. Healing, proximal right fibula fracture. Electronically signed by: Brian Rachel M.D. Flash Magaña MD IMG XR PROCEDURES Final Result documented in this encounter Visit Diagnoses Diagnosis Closed displaced oblique fracture of shaft of right tibia, initial encounter- Primary Closed displaced oblique fracture of shaft of right tibia, initial encounter documented in this encounter Historical Medications * This list may reflect changes made after this encounter. Medication Sig Dispense Quantity Refills Last Filled Start D ate End Date MONUROL 3 gram packet 2 08/24/2018 added in this encounter Care Teams Hand Mica Plate Layer Relationship Specialty Start Date End Date Jose Mo MD [address] [facility] [address] [place] [address] PCP - General 08/22/18 Jose Mo MD [address] [facility] [address] [place] [address] 08/22/18 documented as of this encounter
--- OUTSIDE RECORDS SUMMARY | 2024-03-26 21:37 | XMS_ITS | Encounter Summary ---
Author Organization [facility] Address [address] [place] [address] Phone Care Team Providers Care Manager Access Name Role Phone Jose Mo MD Primary Care Provider [phone] Jose Mo MD Unavailable [phone] Encounter Details Date Type Department Care Team (Late st Contact Info) Description 09/28/2019 Telephone [facility] Infectious Diseases [address] [place] [address] [address] [place] [address] Andrea Hsieh, [facility] Social History Tobacco Use Types Packs/Day Years Used Date Smoking Tobacco: Every Day Cigarettes Smokeless Tobacco: Never Alcohol Use Standard Drinks/Week Comments Not Currently 0 (1 standard drink = 0.6 oz pur e alcohol) Sex and Gender Information Value Date Recorded Sex Assigned at Not on file Legal Sex Male 6:24 PM SENIOR WEB ARCHITECT Gender Identity Male 04/18/2020 9:24 AM SENIOR WEB ARCHITECT Sexual Orientation Straight 04/18/2020 9: 24 AM SENIOR WEB ARCHITECT documented as of this encounter Miscellaneous Notes * Telephone Encounter - Nat Beck - 09/28/2019 2:59 PM CDT Return call, script sent * Telephone Encounter - Andrea Hsieh RMA - 09/28/2019 1:09 PM CDT Melissa baez [phone], calling for refill on his abx, also requesting a call back once done. documented in this encounter Plan of Treatment Not on file documented as of this encounter Visit Diagnoses Not on filedocumented in this encounter Care Teams Manager Access Relationship Specialty Start Date End Date Jose Mo MD [address] [address] PCP - General 08/22/18 Jose Mo MD [address] [address] 08/22/18 documented as of this encounter
--- OUTSIDE RECORDS SUMMARY | 2024-03-26 21:37 | XMS_ITS | Encounter Summary ---
Author Organization [facility] Healthcare Address [address] [place] [address] Care Team Providers Care Machine Pack Assembler Name Role Phone Jose Mo MD Primary Care Provider [phone] Jose Mo MD Unavailable [phone] Reason for Referral * Diagnostic Imaging (Routine) - Closed Specialty Diagnoses / Procedures Referred By Barbara goldman Referred To Contact Radiology Diagnoses Closed displaced oblique fracture of shaft of right tibia with routine healing, subsequent encounter Procedures MRI Knee Right WO Contrast Flash Magaña MD Phone: tel: fax: [address] [address] Referral ID Status Reason Start Date Expiration Date Visits Re quested Visits Authorized [id number] Closed 11/19/2018 05/30/2020 1 1 Reason for Visit * Diagnostic Imaging (Routine) - Closed Specialty Diagnoses / Procedures Referred By Barbara goldman Referred To Contact Radiology Diagnoses Closed displaced oblique fracture of shaft of right tibia with routine healing, subsequent encounter Procedures MRI Knee Right WO Contrast Flash Magaña MD Phone: tel: fax: [facility] [address] [facility] [place] [address] Referral ID Status Reason Start Date Expiration Date Visits Re quested Visits Authorized [id number] Closed 11/19/2018 05/30/2020 1 1 Encounter Details Date Type Department Care Team (Late st Contact Info) Description 11/25/2018 1:12 PM CDT - 11/25/2018 11:59 PM CDT Hospital Encounter [facility] [address] [place] [address] Flash Magaña MD [address] [facility] 6A/6B/12A [place] [address] Closed displaced oblique fracture of shaft of right tibia with routine healing, subsequent encounter Discharge Disposition: Discharge to home or self care Social History Tobacco Use Types Packs/Day Years Used Date Smoking Tobacco: Every Day Cigarettes Smokeless Tobacco: Never Alcohol Use Standard Drinks/Week Comments Not Currently 0 (1 standard drink = 0.6 oz pur e alcohol) Sex and Gender Information Value Date Recorded Sex Assigned at Not on file Legal Sex Male 6:24 PM ELECTRONIC ORGAN TECHNICIAN Gender Identity Male 04/18/2020 9:24 AM ELECTRONIC ORGAN TECHNICIAN Sexual Orientation Straight 04/18/2020 9: 24 AM ELECTRONIC ORGAN TECHNICIAN documented as of this encounter Medications at [...] as needed for itching 30 capsule 9 calcium carbonate (TUMS) 500 mg calcium (200 mg of elemental calcium) chewable tablet Take 2 tablets (1,000 mg total) by mouth 2 (two) times a day as needed for heartburn 9 06/18/19 20 psyllium, aspartame, SF (METAMUCIL SF) 3.4 gram packet Take 1 packet by mouth daily 30 packet 11 9 06/19/19 20 aspirin 325 mg enteric coated tablet Take 1 tablet (325 mg total) by mouth 2 (two) times a day for 14 days For blood clot prevention. Take with food. 28 tablet 9 05/25/19 22 carBAMazepine XR (TEGretol XR) 400 mg 12 hr tablet Take 2 tablets (800 mg total) by mouth nightly 60 tablet 11 9 02/23/20 20 cyclobenzaprine (FLEXERIL) 10 mg tablet TAKE 1 TABLET(10 MG) BY MOUTH THREE TIMES DAILY NEEDED FOR MUSCLE SPASMS 30 tablet 9 02/01/[address] (NexIUM) 40 mg capsuleIndicatio ns:Mucositis Prophylaxis Take 1 capsule (40 mg total) by mouth daily before breakfast for 14 days 14 capsule 9 02/23/20 20 HYDROcodone-acet aminophen (NORCO) 5-325 mg per tabletIndication s:Pain Take 1 tablet by mouth every 4 (four) hours as needed for pain 90 tablet 9 02/23/20 20 hydrocortisone 2.5 % cream Apply topically daily as needed for rash 30 g 9 04/24/19 22 levoFLOXacin (LEVAQUIN) 750 mg tablet TK 1 T PO QD 0 9 04/20/19 21 methocarbamol (ROBAXIN) 750 mg tablet Take 1 tablet (750 mg total) by mouth 3 (three) times a day 30 tablet 9 02/23/20 20 MONUROL 3 gram packet Take 3 g by mouth every 2 (two) weeks 6 g 2 9 01/05/20 19 documented as of this encounter Discharge Disposition Disposition Code Departure Means Destination Discharge to home or self care documented in this encounter Plan of Treatment Not on file documented as of this encounter Procedures Procedure Name Priority Date/Time Associated Diagnosis Comments MRI KNEE RIGHT WO CONTRAST Schedule Routine, Read Routine (OP Routine) 11/25/2018 3:05 PM CDT Closed displaced oblique fracture of shaft of right tibia with routine healing, subsequent encounter documented in this encounter Results * MRI Knee Right WO Contrast (11/25/2018 3:05 PM CDT) Anatomical Region Laterality Modality Lower Extremities Right Magnetic Reson ance 11/25/2018 4:19 PM CDT Impressions 11/25/2018 4:38 PM CDT 1. ??Truncation of the right anterior horn lateral meniscus concerning for tear with intact articular cartilage. 2. ??Normal right medial meniscus and articular cartilage. 3. ??Thickening of the right anterior cruciate ligament without distinct tear seen on these somewhat limited sequences. ??Correlate for signs of anterior cruciate ligament instability on physical examination. 4. ??Distal right quadriceps tendinopathy and thickening of the right patellar tendon. 5. ??Small right knee joint effusion. Dictated by: Stalin Fuller M.D. The radiology attending physician has personally reviewed this study, and had reviewed and/or edited this written report and agrees with it. Electronically signed by: Gerardo Barrow M.D. Narrative 11/25/2018 4:38 PM CDT EXAMINATION: 1. MRI right knee without contrast HISTORY: ??48-year-old male with internally fixated proximal left tibial and fibular fractures with medial joint line tenderness. FINDINGS: Comparison no prior right knee MR examinations are available for comparison. Right knee radiographs dated 06/11/2018 have been reviewed.. MR examination of the right knee was performed with an extremity coil. No intravenous or intra-articular contrast was administered for this examination. Sagittal fast spin-echo and STIR images, coronal short TR/TE, fast spin-echo and STIR images, and transverse STIR images were obtained. ??Most sequences are somewhat degraded due to metal susceptibility artifact. In the medial compartment, the meniscus is intact. There is no focal chondrosis or subchondral edema. In the lateral compartment, there is truncation of the anterior horn of the lateral meniscus, which appears slightly laterally displaced. ??There is no focal chondrosis or subchondral edema. In the patellofemoral compartment, there is no focal chondrosis or subchondral edema. There is thickening of the mid substance anterior cruciate ligament, without discrete tear. Heterotopic ossification is seen at the insertion of the quadriceps tendon, which is mildly thickened. ??The patellar tendon is also thickened. The popliteus tendon is normal. There is a small right knee joint effusion. No loose bodies are identified. ??Right tibial and femoral intramedullary nails are partially visualized, along with instrumentation from open reduction and internal fixation of a proximal right fibular fracture. Procedure Note Gerardo Barrow MD - 11/25/2018 EXAMINATION: 1. MRI right knee without contrast HISTORY: 48-year-old male with internally fixated proximal left tibial and fibular fractures with medial joint line tenderness. FINDINGS: Comparison no prior right knee MR examinations are available for comparison. Right knee radiographs dated 06/11/2018 have been reviewed.. MR examination of the right knee was performed with an extremity coil. No intravenous or intra-articular contrast was administered for this examination. Sagittal fast spin-echo and STIR images, coronal short TR/TE, fast spin-echo and STIR images, and transverse STIR images were obtained. Most sequences are somewhat degraded due to metal susceptibility artifact. In the medial compartment, the meniscus is intact. There is no focal chondrosis or subchondral edema. In the lateral compartment, there is truncation of the anterior horn of the lateral meniscus, which appears slightly laterally displaced. There is no focal chondrosis or subchondral edema. In the patellofemoral compartment, there is no focal chondrosis or subchondral edema. There is thickening of the mid substance anterior cruciate ligament, without discrete tear. Heterotopic ossification is seen at the insertion of the quadriceps tendon, which is mildly thickened. The patellar tendon is also thickened. The popliteus tendon is normal. There is a small right knee joint effusion. No loose bodies are identified. Right tibial and femoral intramedullary nails are partially visualized, along with instrumentation from open reduction and internal fixation of a proximal right fibular fracture. IMPRESSION: 1. Truncation of the right anterior horn lateral meniscus concerning for tear with intact articular cartilage. 2. Normal right medial meniscus and articular cartilage. 3. Thickening of the right anterior cruciate ligament without distinct tear seen on these somewhat limited sequences. Correlate for signs of anterior cruciate ligament instability on physical examination. 4. Distal right quadriceps tendinopathy and thickening of the right patellar tendon. 5. Small right knee joint effusion. Dictated by: Stalin Fuller M.D. The radiology attending physician has personally reviewed this study, and had reviewed and/or edited this written report and agrees with it. Electronically signed by: Gerardo Barrow M.D. Result [facility] Flash Magaña MD IM MRI PROCEDURES Final Result documented in this encounter Visit Diagnoses Diagnosis Closed displaced oblique fracture of shaft of right tibia with routine healing, subsequent encounter documented in this encounter Care Teams Machine Pack Assembler Relationship Specialty Start Date End Date Jose Mo MD [address] [address] PCP - General 08/22/18 Jose Mo MD [address] [address] 08/22/18 documented as of this encounter
--- OUTSIDE RECORDS SUMMARY | 2024-03-26 21:37 | XMS_ITS | Encounter Summary ---
Author Organization [facility] Healthcare Address [address] [place] [address] Care Team Providers Care Dinking Machine Operator Name Role Phone Jose Mo MD Primary Care Provider [phone] Jose Mo MD Unavailable Encounter Details Date Type Department Care Team (Late st Contact Info) Description 05/25/2019 2:30 PM STRIPPER OPAQUER [facility] [address] [address] Social History Tobacco Use Types Packs/Day Years Used Date Smoking Tobacco: Every Day Cigarettes Smokeless Tobacco: Never Alcohol Use Standard Drinks/Week Comments Not Currently 0 (1 standard drink = 0.6 oz pur e alcohol) Sex and Gender Information Value Date Recorded Sex Assigned at Not on file Legal Sex Male 6:24 PM STRIPPER OPAQUER Gender Identity Male 04/18/2020 9:24 AM STRIPPER OPAQUER Sexual Orientation Straight 04/18/2020 9: 24 AM STRIPPER OPAQUER documented as of this encounter Plan of Treatment Not on file documented as of this encounter Visit Diagnoses Not on filedocumented in this encounter Care Teams Dinking Machine Operator Relationship Specialty Start Date End Date Jose Mo MD [address] [facility] [address] [place] [address] PCP - General 08/22/18 Jose Mo MD [address] [address] 08/22/18 documented as of this encounter
--- OUTSIDE RECORDS SUMMARY | 2024-03-26 21:37 | XMS_ITS | Encounter Summary ---
Author Organization [facility] Address [address] [facility] [address] [place] [address] Phone Care Team Providers Care Contact And Service Clerks Supervisor Name Role Phone Jose Mo MD Primary Care Provider [phone] Jose Mo MD Unavailable [phone] Encounter Details Date Type Department Care Team (Late st Contact Info) Description 01/04/2019 Orders Only [facility] Infectious Diseases [address] [place] [address] [address] [place] [address] Quentin Montoya MD [address] [facility] [address] [place] [address] Social History Tobacco Use Types Packs/Day Years Used Date Smoking Tobacco: Every Day Cigarettes Smokeless Tobacco: Never Alcohol Use Standard Drinks/Week Comments Not Currently 0 (1 standard drink = 0.6 oz pur e alcohol) Sex and Gender Information Value Date Recorded Sex Assigned at Not on file Legal Sex Male 6:24 PM FAMILY SERVICES MANAGER Gender Identity Male 04/18/2020 9:24 AM FAMILY SERVICES MANAGER Sexual Orientation Straight 04/18/2020 9: 24 AM FAMILY SERVICES MANAGER documented as of this encounter Ordered Prescriptions Prescription Sig Dispense Quantity Refills Last Filled Start Date End Date MONUROL 3 gram packet Take 3 g by mouth every 2 (two) weeks 6 g 2 01/04/2019 02/23/2020 documented in this encounter Plan of Treatment Not on file documented as of this encounter Visit Diagnoses Not on filedocumented in this encounter Discontinued Medications Medication Sig Discontinue Reason Start Date End Da te MONUROL 3 gram packet Take 3 g by mouth every 2 (two) weeks Reorder 11/20/2018 01/04/2019 documented as of this encounter Care Teams Contact And Service Clerks Supervisor Relationship Specialty Start Date End Date Jose Mo MD [address] [address] PCP - General 08/22/18 Jose Mo MD [address] [address] 08/22/18 documented as of this encounter
--- OUTSIDE RECORDS SUMMARY | 2024-03-26 21:37 | XMS_ITS | Encounter Summary ---
Author Organization [facility] Address [address] [place] [address] Phone Care Team Providers Care High School Auto Repair Teacher Name Role Phone Jose Mo MD Primary Care Provider [phone] Jose Mo MD Unavailable [phone] Reason for Visit * Reason Onset Date Comments Appointment 11/26/2019 Encounter Details Date Type Department Care Team (Late st Contact Info) Description 11/26/2019 Telephone [facility] Infectious Diseases [address] [place] [address] [address] [place] [address] Nat Beck Appointment Social History Tobacco Use Types Packs/Day Years Used Date Smoking Tobacco: Every Day Cigarettes Smokeless Tobacco: Never Alcohol Use Standard Drinks/Week Comments Not Currently 0 (1 standard drink = 0.6 oz pur e alcohol) Sex and Gender Information Value Date Recorded Sex Assigned at Not on file Legal Sex Male 6:24 PM WAD BLANKING PRESS ADJUSTER Gender Identity Male 04/18/2020 9:24 AM WAD BLANKING PRESS ADJUSTER Sexual Orientation Straight 04/18/2020 9: 24 AM WAD BLANKING PRESS ADJUSTER documented as of this encounter Miscellaneous Notes * Telephone Encounter - Nell Sánchez CNA - 11/30/2019 12:28 PM CDT Called x2 on both numbers the other had no voice mail * Telephone Encounter - Nell Sánchez CNA - 11/29/2019 3:48 PM CDT Called x1 lmor * Telephone Encounter - Christiano Martínez CPhT - 11/29/2019 10:22 AM CDT Please schedule. * Telephone Encounter - Nat Beck - 11/26/2019 2:12 PM CDT Please contact pt for return appt with any available provider. If he wishes to do a tele visit he can schedule with Dorota Blackwood Hannigan (only on ), Mike (only on Fri), Hiro Arizmendi,or Becky. documented in this encounter Plan of Treatment Not on file documented as of this encounter Visit Diagnoses Not on filedocumented in this encounter Care Teams High School Auto Repair Teacher Relationship Specialty Start Date End Date Jose Mo MD [address] [address] PCP - General 08/22/18 Jose Mo MD [address] [address] 08/22/18 documented as of this encounter
--- OUTSIDE RECORDS SUMMARY | 2024-03-26 21:37 | XMS_ITS | Encounter Summary ---
Author Organization [facility] Healthcare Address [address] [place] [address] Care Team Providers Care Antichecking Iron Worker Name Role Phone Jose Mo MD Primary Care Provider [phone] Jose Mo MD Unavailable [phone] Reason for Referral * Diagnostic Imaging (Routine) - Closed Specialty Diagnoses / Procedures Referred By Contac t Referred To Contact Diagnoses Closed displaced oblique fracture of shaft of right tibia with routine healing, subsequent encounter Procedures X-ray tibia fibula right 2 views Flash Magaña MD Phone: tel: fax: [facility] Referral ID Status Reason Start Date Expiration Date Visits Re quested Visits Authorized [id number] Closed 09/17/2018 03/28/2020 1 1 Reason for Visit * Diagnostic Imaging (Routine) - Closed Specialty Diagnoses / Procedures Referred By Contac t Referred To Contact Diagnoses Closed displaced oblique fracture of shaft of right tibia with routine healing, subsequent encounter Procedures X-ray tibia fibula right 2 views Flash Magaña MD Phone: tel: fax: [facility] Referral ID Status Reason Start Date Expiration Date Visits Re quested Visits Authorized [id number] Closed 09/17/2018 03/28/2020 1 1 Encounter Details Date Type Department Care Team (Late st Contact Info) Description 09/17/2018 11:12 AM CDT - 09/17/2018 11:59 PM CDT Hospital Encounter [facility]) [address] [place] [address] Flash Magaña MD [address] [facility] 6A/6B/[address] [place] [address] Closed displaced oblique fracture of shaft of [...] on file Legal Sex Male 6:24 PM CANDLE CUTTER Gender Identity Male 04/18/2020 9:24 AM CANDLE CUTTER Sexual Orientation Straight 04/18/2020 9: 24 AM CANDLE CUTTER documented as of this encounter Medications at [...] for rash 30 g 9 04/24/19 22 methocarbamol (ROBAXIN) 750 mg tablet Take 1 tablet (750 mg total) by mouth 3 (three) times a day 30 tablet 9 02/23/20 20 MONUROL 3 gram packet 2 9 11/21/19 19 documented as of this encounter Discharge Disposition Disposition Code Departure Means Destination Discharge to home or self care documented in this encounter Plan of Treatment Not on file documented as of this encounter Procedures Procedure Name Priority Date/Time Associated Diagnosis Comments XR TIBIA FIBULA RIGHT2 VIEWS Schedule Routine, Read Routine (OP Routine) 09/17/2018 11:30 AM CDT Closed displaced oblique fracture of shaft of right tibia with routine healing, subsequent encounter documented in this encounter Results * X-ray tibia fibula right 2 views (09/17/2018 11:30 AM CDT) Anatomical Region Laterality Modality Lower Extremities, Lower Leg Right Com puted Radiography 09/17/2018 11:3 3 AM CDT Impressions 09/17/2018 11:33 AM CDT 1. ??Healing reduced and nailed and internally fixated right proximal tibial shaft fracture. ?? 2. ??Healing nondisplaced right fibular fracture. Electronically signed by: Willi Conde M.D. Narrative 09/17/2018 11:33 AM CDT EXAMINATION: Left tibia-fibula 2 views HISTORY: Left tibia-fibula fractures FINDINGS: 2 view examination of the left tibia and fibula is performed and compared to prior study of 08/25/2018. ??There is a healing reduced and nailed right proximal tibia fracture with 2 distal and 2 proximal interlocking screws. ??There is additionally medial plate and screw fixation of the proximal tibia. ??There is a healing nondisplaced fracture of the proximal fibula. Procedure Note Willi Conde MD - 09/17/2018 EXAMINATION: Left tibia-fibula 2 views HISTORY: Left tibia-fibula fractures FINDINGS: 2 view examination of the left tibia and fibula is performed and compared to prior study of 08/25/2018. There is a healing reduced and nailed right proximal tibia fracture with 2 distal and 2 proximal interlocking screws. There is additionally medial plate and screw fixation of the proximal tibia. There is a healing nondisplaced fracture of the proximal fibula. IMPRESSION: 1. Healing reduced and nailed and internally fixated right proximal tibial shaft fracture. 2. Healing nondisplaced right fibular fracture. Electronically signed by: Willi Conde M.D. [facility] Mario Magaña MD IMG XR PROCEDURES Final Result documented in this encounter Visit Diagnoses Diagnosis Closed displaced oblique fracture of shaft of right tibia with routine healing, subsequent encounter documented in this encounter Care Teams Antichecking Iron Worker Relationship Specialty Start Date End Date Jose Mo MD [address] [address] PCP - General 08/22/18 Jose Mo MD [address] [address] 08/22/18 documented as of this encounter
--- OUTSIDE RECORDS SUMMARY | 2024-03-26 21:37 | XMS_ITS | Encounter Summary ---
Author Organization [facility] Healthcare Address [address] [place] [address] Care Team Providers Care Chief Of Service Name Role Phone Jose Mo MD Primary Care Provider Jose Mo MD Unavailable [phone] Reason for Referral * Diagnostic Imaging (Routine) - Closed Specialty Diagnoses / Procedures Referred By Contac t Referred To Contact Diagnoses Closed displaced oblique fracture of shaft of right tibia, initial encounter Procedures XR Tibia Fibula Right 2 Views Flash Magaña MD Phone: tel: fax: [facility] Referral ID Status Reason Start Date Expiration Date Visits Re quested Visits Authorized [id number] Closed 08/25/2018 03/05/2020 1 1 Reason for Visit * Diagnostic Imaging (Routine) - Closed Specialty Diagnoses / Procedures Referred By Contac t Referred To Contact Diagnoses Closed displaced oblique fracture of shaft of right tibia, initial encounter Procedures XR Tibia Fibula Right 2 Views Flash Magaña MD Phone: tel: fax: [facility] Referral ID Status Reason Start Date Expiration Date Visits Re quested Visits Authorized [id number] Closed 08/25/2018 03/05/2020 1 1 Encounter Details Date Type Department Care Team (Late st Contact Info) Description 08/25/2018 2:40 PM CDT - 08/25/2018 11:59 PM CDT Hospital Encounter [facility] [address] [place] [address] Flash Magaña MD [address] [facility] 6A[address]6B/[address]A [place] [address] Closed displaced oblique fracture of shaft of right tibia, initial encounter Discharge Disposition: Discharge to home or self care Social History Tobacco Use Types Packs/Day Years Used Date Smoking Tobacco: Every Day Cigarettes Smokeless Tobacco: Never Alcohol Use Standard Drinks/Week Comments Not Currently 0 (1 standard drink = 0.6 oz pur e alcohol) Sex and Gender Information Value Date Recorded Sex Assigned at Not on file Legal Sex Male 6:24 PM 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 SOIL 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 OPERATOR Gender Identity Male 04/18/2020 9:24 AM ROTARY SOIL STABILIZER OPERATOR Sexual Orientation Straight 04/18/2020 9: 24 AM ROTARY SOIL STABILIZER OPERATOR documented as of this encounter Medications [...] 02/23/20 20 cyclobenzaprine (FLEXERIL) 10 mg tablet Take 1 tablet (10 mg total) by mouth 3 (three) times a day as needed for muscle spasms 30 tablet 9 08/29/[address] (NexIUM) 40 mg capsuleIndicatio ns:Mucositis [...] VIEWS Schedule Routine, Read Routine (OP Routine) 08/25/2018 2:53 PM CDT Closed displaced oblique fracture of shaft of right tibia, initial encounter documented in this encounter Results * XR Tibia Fibula [...] fracture. Electronically signed by: Brian Rachel M.D. [facility] Mario Magaña MD IMG XR PROCEDURES Final Result documented in this encounter Visit Diagnoses Diagnosis Closed displaced oblique fracture of shaft of right tibia, initial encounter documented in this encounter Care Teams Chief Of Service Relationship Specialty Start Date End Date Jose Mo MD [address] [address] PCP - General 08/22/18 Jose Mo MD [address] [facility] [address] [place] [address] 08/22/18 documented as of this encounter
--- OUTSIDE RECORDS SUMMARY | 2024-03-26 21:37 | XMS_ITS | Encounter Summary ---
Author Organization [facility] Address [address] [place] [address] Phone Care Team Providers Care Bottle Caser Name Role Phone Jose Mo MD Primary Care Provider [phone] Jose Mo MD Unavailable [phone] Encounter Details Date Type Department Care Team (Late st Contact Info) Description 05/17/2019 Telephone [facility] Infectious Diseases [address] [place] [address] [address] [place] [address] Jacque Mendieta Social History Tobacco Use Types Packs/Day Years Used Date Smoking Tobacco: Every Day Cigarettes Smokeless Tobacco: Never Alcohol Use Standard Drinks/Week Comments Not Currently 0 (1 standard drink = 0.6 oz pur e alcohol) Sex and Gender Information Value Date Recorded Sex Assigned at Not on file Legal Sex Male 6:24 PM TECHNOLOGY INSTRUCTOR Gender Identity Male 04/18/2020 9:24 AM TECHNOLOGY INSTRUCTOR Sexual Orientation Straight 04/18/2020 9: 24 AM TECHNOLOGY INSTRUCTOR documented as of this encounter Miscellaneous Notes * Telephone Encounter - Quentin Montoya MD - 05/18/2019 9:59 AM TECHNOLOGY INSTRUCTOR dont think so NOLOGY INSTRUCTOR * Telephone Encounter - Nat Beck - 05/18/2019 8:16 AM CST Quentin, I spoke with his and disussed all of this. She mentioned he is going to get labs done as a follow up from his discharge. Is there anything you would need prior to seeing him? NOLOGY INSTRUCTOR * Telephone Encounter - Quentin Montoya MD - 05/17/2019 12:07 PM TECHNOLOGY INSTRUCTOR Resume monurol after levaquin NOLOGY INSTRUCTOR * Telephone Encounter - Nat Beck - 05/17/2019 11:20 AM CST Quentin, Looks like he was given Levaquin 500 joaquin x 8 days to finish on 05/23, his monurol is q 2 weeks Should he just start back on the monurol when he completes the Levaquin? NOLOGY INSTRUCTOR * Telephone Encounter - Jacque Mendieta - 05/17/2019 8:18 AM CST Melissa, cell, patient's so, is patient suppose to take the monurol with the Levaquin. Also, do they need labs before 05/25/19 ID appt. NOLOGY INSTRUCTOR documented in this encounter Plan of Treatment Not on file documented as of this encounter Visit Diagnoses Not on filedocumented in this encounter Care Teams Bottle Caser Relationship Specialty Start Date End Date Jose Mo MD [address] [address] PCP - General 08/22/18 Jose Mo MD [address] [address] 08/22/18 documented as of this encounter
--- OUTSIDE RECORDS SUMMARY | 2024-03-26 21:37 | XMS_ITS | Encounter Summary ---
Author Organization [facility] Address [address] [place] [address] Care Team Providers Care Clerical Adviser Name Role Phone Jose Mo MD Primary Care Provider Jose Mo MD Unavailable Encounter Details Date Type Department Care Team (Late st Contact Info) Description 02/24/2020 [facility] [address] [facility] [address] [facility] [place] [address] Jose Mo MD [address] [facility] [address] [place] [address] Social History Tobacco Use Types Packs/Day Years Used Date Smoking Tobacco: Every Day Cigarettes Smokeless Tobacco: Never Alcohol Use Standard Drinks/Week Comments Not Currently 0 (1 standard drink = 0.6 oz pur e alcohol) Sex and Gender Information Value Date Recorded Sex Assigned at Not on file Legal Sex Male 6:24 PM ASSEMBLER SANDAL PARTS Gender Identity Male 04/18/2020 9:24 AM ASSEMBLER SANDAL PARTS Sexual Orientation Straight 04/18/2020 9: 24 AM ASSEMBLER SANDAL PARTS documented as of this encounter Miscellaneous Notes * Telephone Encounter - Celina Quintero - 02/24/2020 5:06 PM CST Pt aware mailed cards to pt/mk MBLER SANDAL PARTS * Telephone Encounter - Celina Quintero - 02/24/2020 5:06 PM CST ----- Message from Jose Mo MD sent at 02/24/2020 8:12 AM ASSEMBLER SANDAL PARTS ----- Mild anemia, check stool guaiac x 3 No uti MBLER SANDAL PARTS documented in this encounter Plan of Treatment Not on file documented as of this encounter Visit Diagnoses Not on filedocumented in this encounter Care Teams Clerical Adviser Relationship Specialty Start Date End Date Jose Mo MD [address] [address] PCP - General 08/22/18 Jose Mo MD [address] [address] 08/22/18 documented as of this encounter
--- OUTSIDE RECORDS SUMMARY | 2024-03-26 21:37 | XMS_ITS | Encounter Summary ---
Author Organization [facility] Address [address] [facility] [address] [place] [address] Phone Care Team Providers Care Machine Striper Name Role Phone Jose Mo MD Primary Care Provider [phone] Jose Mo MD Unavailable [phone] Encounter Details Date Type Department Care Team (Late st Contact Info) Description 11/20/2018 Orders Only [facility] Infectious Diseases [address] [place] [address] [address] [place] [address] Quentin Montoya MD [address] [facility] [address] [place] [address] Social History Tobacco Use Types Packs/Day Years Used Date Smoking Tobacco: Every Day Cigarettes Smokeless Tobacco: Never Alcohol Use Standard Drinks/Week Comments Not Currently 0 (1 standard drink = 0.6 oz pur e alcohol) Sex and Gender Information Value Date Recorded Sex Assigned at Not on file Legal Sex Male 6:24 PM TRUST MANAGER Gender Identity Male 04/18/2020 9:24 AM TRUST MANAGER Sexual Orientation Straight 04/18/2020 9: 24 AM TRUST MANAGER documented as of this encounter Ordered Prescriptions Prescription Sig Dispense Quantity Refills Last Filled Start Date End Date MONUROL 3 gram packet Take 3 g by mouth every 2 (two) weeks 6 g 2 11/20/2018 01/04/2019 documented in this encounter Plan of Treatment Not on file documented as of this encounter Visit Diagnoses Not on filedocumented in this encounter Discontinued Medications Medication Sig Discontinue Reason Start Date End Da te MONUROL 3 gram packet Reorder 08/24/2018 11/20/2018 documented as of this encounter Care Teams Machine Striper Relationship Specialty Start Date End Date Jose Mo MD [address] [address] PCP - General 08/22/18 Jose Mo MD [address] [address] 08/22/18 documented as of this encounter
--- OUTSIDE RECORDS SUMMARY | 2024-03-26 21:37 | XMS_ITS | Encounter Summary ---
Author Organization [facility] Address [address] [place] [address] Care Team Providers Care Forest Nursery Worker Name Role Phone Jose Mo MD Primary Care Provider [phone] Jose Mo MD Unavailable [phone] Reason for Referral * Diagnostic Imaging (Routine) - Closed Specialty Diagnoses / Procedures Referred By Contac t Referred To Contact Diagnoses Closed displaced oblique fracture of shaft of right tibia with routine healing, subsequent encounter Procedures XR Tibia Fibula Right 2 Views Flash Magaña MD Phone: tel: fax: [facility] Referral ID Status Reason Start Date Expiration Date Visits Re quested Visits Authorized [id number] Closed 11/18/2018 05/29/2020 1 1 Reason for Visit * Diagnostic Imaging (Routine) - Closed Specialty Diagnoses / Procedures Referred By Contac t Referred To Contact Diagnoses Closed displaced oblique fracture of shaft of right tibia with routine healing, subsequent encounter Procedures XR Tibia Fibula Right 2 Views Flash Magaña MD Phone: tel: fax: [facility] Referral ID Status Reason Start Date Expiration Date Visits Re quested Visits Authorized [id number] Closed 11/18/2018 05/29/2020 1 1 Encounter Details Date Type Department Care Team (Late st Contact Info) Description 11/19/2018 10:53 AM CDT - 11/19/2018 11:59 PM CDT Hospital Encounter [facility] [address] [place] [address] Flash Magaña MD [address] [facility] [address] [place] [address] Closed displaced oblique fracture of shaft of [...] on file Legal Sex Male 6:24 PM DRUG SAFETY PHYSICIAN Gender Identity Male 04/18/2020 9:24 AM DRUG SAFETY PHYSICIAN Sexual Orientation Straight 04/18/2020 9: 24 AM DRUG SAFETY PHYSICIAN documented as of this encounter Medications at [...] VIEWS Schedule Routine, Read Routine (OP Routine) 11/19/2018 11:05 AM CDT Closed displaced oblique fracture of shaft of right tibia with routine healing, subsequent encounter documented in this encounter Results * XR Tibia Fibula Right 2 Views (11/19/2018 11:05 AM CDT) Anatomical Region Laterality Modality Lower Extremities, Lower Leg Right Com puted Radiography 11/19/2018 11:3 4 AM CDT Impressions 11/19/2018 1:18 PM CDT 1. ??Further interval healing of reduced and internally fixated right proximal tibial fracture. 2. ??Further interval healing of nondisplaced proximal right fibular fracture. Dictated by: Conchita Franklin M.D. The radiology attending physician has personally reviewed this study, and had reviewed and/or edited this written report and agrees with it. Electronically signed by: Omid Gutierrez MD Narrative 11/19/2018 1:18 PM CDT EXAMINATION: 1. ?XR TIBIA FIBULA RIGHT2 VIEWS HISTORY: Left tibia-fibula fractures FINDINGS: 2 views of the left tibia and fibula are submitted for interpretation with comparison to prior radiographs dated 09/17/2018. Interval healing of the reduced and internally fixated right proximal tibia fracture. ??This fracture is fixated with an intramedullary nail, 2 distal and 2 proximal interlocking screws, and a medial stabilization plate and screws. ??The components are well seated. There is no significant change in alignment. Interval healing of the nondisplaced proximal fibular fracture with progressive bridging callus. ?? There are no new acute fractures. Procedure Note Johanna Gutierrez MD - 11/19/2018 EXAMINATION: 1. XR TIBIA FIBULA RIGHT2 VIEWS HISTORY: Left tibia-fibula fractures FINDINGS: 2 views of the left tibia and fibula are submitted for interpretation with comparison to prior radiographs dated 09/17/2018. Interval healing of the reduced and internally fixated right proximal tibia fracture. This fracture is fixated with an intramedullary nail, 2 distal and 2 proximal interlocking screws, and a medial stabilization plate and screws. The components are well seated. There is no significant change in alignment. Interval healing of the nondisplaced proximal fibular fracture with progressive bridging callus. There are no new acute fractures. IMPRESSION: 1. Further interval healing of reduced and internally fixated right proximal tibial fracture. 2. Further interval healing of nondisplaced proximal right fibular fracture. Dictated by: Conchita Sunn Konstantinoff, M.D. The radiology attending physician has personally reviewed this study, and had reviewed and/or edited this written report and agrees with it. Electronically signed by: Omid Gutierrez MD Flash Magaña MD IMG XR PROCEDURES Final Result documented in this encounter Visit Diagnoses Diagnosis Closed displaced oblique fracture of shaft of right tibia with routine healing, subsequent encounter documented in this encounter Care Teams Forest Nursery Worker Relationship Specialty Start Date End Date Jose Mo MD [address] [address] PCP - General 08/22/18 Jose Mo MD [address] [address] 08/22/18 documented as of this encounter
--- OUTSIDE RECORDS SUMMARY | 2024-03-26 21:37 | XMS_ITS | Encounter Summary ---
Author Organization [facility] Address [address] [place] [address] Phone Care Team Providers Care Chemical Test Engineer Name Role Phone Jose Mo MD Primary Care Provider [phone] Jose Mo MD Unavailable [phone] Encounter Details Date Type Department Care Team (Late st Contact Info) Description 09/23/2018 Orders Only [facility] Orthopaedic Surgery [address] [facility] 6th [place] [address] [place] [address] Flash Magaña MD [address] [facility] [address] [place] [address] Social History Tobacco Use Types Packs/Day Years Used Date Smoking Tobacco: Every Day Cigarettes Smokeless Tobacco: Never Alcohol Use Standard Drinks/Week Comments Not Currently 0 (1 standard drink = 0.6 oz pur e alcohol) Sex and Gender Information Value Date Recorded Sex Assigned at Not on file Legal Sex Male 6:24 PM DIRECTOR OF FAMILY SERVICE CENTER Gender Identity Male 04/18/2020 9:24 AM DIRECTOR OF FAMILY SERVICE CENTER Sexual Orientation Straight 04/18/2020 9: 24 AM DIRECTOR OF FAMILY SERVICE CENTER documented as of this encounter Ordered Prescriptions Prescription Sig Dispense Quantity Refills Last Filled Start Date End Date doxycycline (ADOXA) 100 mg tablet Take 1 tablet (100 mg total) by mouth 2 (two) times a day for 10 days 20 tablet 09/23/2018 10/03/2018 documented in this encounter Plan of Treatment Not on file documented as of this encounter Visit Diagnoses Not on filedocumented in this encounter Historical Medications * This list may reflect changes made after this encounter. levoFLOXacin (LEVAQUIN) 750 mg tablet TK 1 T PO QD 0 09/20/2018 04/20/2020 added in this encounter Care Teams Chemical Test Engineer Relationship Specialty Start Date End Date Jose Mo MD [address] [address] PCP - General 08/22/18 Jose Mo MD [address] [address] 08/22/18 documented as of this encounter
--- OUTSIDE RECORDS SUMMARY | 2024-03-26 21:37 | XMS_ITS | Encounter Summary ---
Author Organization [facility] Address [address] [facility] [address] [place] [address] Phone Care Team Providers Care Vc++ Developer Name Role Phone Jose Mo MD Primary Care Provider [phone] Jose Mo MD Unavailable [phone] Encounter Details Date Type Department Care Team (Late st Contact Info) Description 09/28/2019 Orders Only [facility] Infectious Diseases [address] [place] [address] [address] [place] [address] Quentin Montoya MD [address] [facility] [address] [place] [address] Recurrent UTI (Primary Dx) Social History Tobacco Use Types Packs/Day Years Used Date Smoking Tobacco: Every Day Cigarettes Smokeless Tobacco: Never Alcohol Use Standard Drinks/Week Comments Not Currently 0 (1 standard drink = 0.6 oz pur e alcohol) Sex and Gender Information Value Date Recorded Sex Assigned at Not on file Legal Sex Male 6:24 PM WIRE WEAVER Gender Identity Male 04/18/2020 9:24 AM WIRE WEAVER Sexual Orientation Straight 04/18/2020 9: 24 AM WIRE WEAVER documented as of this encounter Ordered Prescriptions Prescription Sig Dispense Quantity Refills Last Filled Start Date End Date nitrofurantoin monohydrate (Macrobid) 100 mg capsuleIndications :Recurrent UTI Take 1 capsule (100 mg total) by mouth daily 30 capsule 1 09/28/2019 0 documented in this encounter Plan of Treatment Not on file documented as of this encounter Visit Diagnoses Diagnosis Recurrent UTI- Primary Urinary tract infection, site not specified documented in this encounter Care Teams Vc++ Developer Relationship Specialty Start Date End Date Jose Mo MD [address] [address] PCP - General 08/22/18 Jose Mo MD [address] [address] 08/22/18 documented as of this encounter
--- OUTSIDE RECORDS SUMMARY | 2024-03-26 21:37 | XMS_ITS | Encounter Summary ---
Author Organization [facility] Address [address] [place] [address] Phone Care Team Providers Care Medication Manager Name Role Phone Jose Mo MD Primary Care Provider [phone] Jose Mo MD Unavailable [phone] Reason for Referral * Diagnostic Imaging (Routine) - Closed Specialty Diagnoses / Procedures Referred By Barbara goldman Referred To Contact Diagnoses Closed displaced oblique fracture of shaft of right tibia with routine healing, subsequent encounter Procedures X-ray tibia fibula right 2 views Flash Magaña MD Phone: tel: fax: [facility] Referral ID Status Reason Start Date Expiration Date Visits Re quested Visits Authorized [id number] Closed 09/17/2018 03/28/2020 1 1 Reason for Visit * Reason Comments Post-op Encounter Details Date Type Department Care Team (Late st Contact Info) Description 09/17/2018 10:20 AM CDT Office Visit [facility] Orthopaedic Surgery [address] [place] [address] 6th [place] [address] [place] [address] Flash Magaña MD [address] [place] [address] [address] [place] [address] Closed displaced oblique fracture of shaft of right tibia with routine healing, subsequent encounter (Primary Dx) Social History Tobacco Use Types Packs/Day Years Used Date Smoking Tobacco: Every Day Cigarettes Smokeless Tobacco: Never Alcohol Use Standard Drinks/Week Comments Not Currently 0 (1 standard drink = 0.6 oz pur e alcohol) Sex and Gender Information Value Date Recorded Sex Assigned at Not on file 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 Also had a I and D approximately 8 weeks ago. Subjective: Patient is doing okay. He is battling swelling in his right leg. He is also not returned yet the walking. He is having some difficulty regaining his strength like related to his underlying neurologiccondition. No current wound problems. Objective: Patient is healthy-appearing and well-groomed, in no apparent distress. Patient is oriented to time, place, and person. Incision healing well, no drainage or erythema; no deformity or crepitation. Range of motion: diminished range with pain. Leg warm and well-perfused, capillary refill <2 seconds. Right leg is swollen. Neurovascular exam at baseline otherwise. Imaging: Right proximal tibia fracture healing well in proper alignment. No sign of hardware loosening or breakage. Assessment: Mr. Jain is a 48 y.o. male who sustained a right side proximal tibia fracture status post ORIF and intramedullary nail. Plan: 1) WBAT. 2) Return to clinic in 3 months with repeat radiographs right tibia and fibula 3) Pain management: Tylenol 4) Splinting/bracing/casting: Knee brace as needed 5) Physical therapy: Continue therapy 6) Bone health: As prescribed 7) Call with any questions. 8) Work status: limited as tolerated documented in this encounter Plan of Treatment Not on file documented as of this encounter Results * X-ray tibia fibula [...] fracture. Electronically signed by: Willi Conde M.D. Flash Magaña MD IMG XR PROCEDURES Final Result documented in this encounter Visit Diagnoses Diagnosis Closed displaced oblique fracture of shaft of right tibia with routine healing, subsequent encounter- Primary Closed displaced oblique fracture of shaft of right tibia with routine healing, subsequent encounter documented in this encounter Care Teams Medication Manager Relationship Specialty Start Date End Date Jose Mo MD [address] [address] PCP - General 08/22/18 Jose Mo MD [address] [address] 08/22/18 documented as of this encounter
--- OUTSIDE RECORDS SUMMARY | 2024-03-26 21:37 | XMS_ITS | Encounter Summary ---
Author Organization [facility] Address [address] [place] [address] Care Team Providers Care Senior Accounting Associate Name Role Phone Jose Mo MD Primary Care Provider [phone] Jose Mo MD Unavailable [phone] Encounter Details Date Type Department Care Team (Late st Contact Info) Description 08/22/2018 3:09 PM CDT - 08/22/2018 5:31 PM CDT Hospital Encounter [facility] Emergency Department [address] [place] [address] Unknown, [place] [address] [place], [place] [id number] Discharge Disposition: Discharge to home or self care Social History Tobacco Use Types Packs/Day Years Used Date Smoking Tobacco: Never Assessed Sex and Gender Information Value Date Recorded Sex Assigned at Not on file 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 Gender Identity Male 04/18/2020 9:24 AM SERVICE PLANNER Sexual Orientation Straight 04/18/2020 9: 24 AM SERVICE PLANNER documented as of this encounter Last Filed Vital Signs Vital Sign Reading Time Taken Comments Blood Pressure 139/81 08/22/2018 3:14 PM CDT Pulse 85 08/22/2018 3:14 PM CDT Temperature 36.8 ??C (98.2 ??F) 08/22/2018 3:14 PM CD T Respiratory Rate - - Oxygen Saturation 96% 08/22/2018 3:14 PM CDT Inhaled Oxygen Concentration - - Weight 108.9 kg (240 lb) 08/22/2018 3:14 PM CDT Height 172.7 cm (5' 8 ) 08/22/2018 3:14 PM CDT Body Mass Index 36.49 08/22/2018 3:14 PM CDT documented in this encounter Medications at [...] 1 packet by mouth daily 30 packet 9 06/19/19 20 aspirin 325 mg enteric coated tablet Take 1 tablet (325 mg total) by mouth 2 (two) times a day for 14 days For blood clot prevention. Take with food. 28 tablet 9 05/25/19 22 carBAMazepine XR (TEGretol XR) 400 mg 12 hr tablet Take 2 tablets (800 mg total) by mouth nightly 60 tablet 9 02/23/20 20 cyclobenzaprine (FLEXERIL) 10 mg [...] a day 30 tablet 9 02/23/20 20 documented as of this encounter Discharge Disposition Disposition Code Departure Means Destination Discharge to home or self care documented in this encounter Plan of Treatment Not on file documented as of this encounter Procedures Procedure Name Priority Date/Time Associated Diagnosis Comments XR TIBIA FIBULA RIGHT2 VIEWS 08/22/2018 3:50 PM CDT XR ANKLE RIGHT 3 OR MORE VIEWS 08/22/2018 12:00 AM CDT XR KNEE RIGHT 1 OR 2 VIEWS 08/22/2018 12:00 AM CDT documented in this encounter Results * XR Tibia Fibula Right 2 Views (08/22/2018 3:50 PM CDT) Anatomical Region Laterality Modality Lower Extremities, Lower Leg Right Rad iographic Imaging 08/22/2018 4:04 PM CDT Narrative 08/22/2018 4:07 PM CDT Patient Name: ANGUS JAIN ?Ordering Dr: Sola Fuller CNP ?? D.O.B: 1970 ? Exam Date: 05/18/19 ?? 1550 ?? Age: 48 ?Sex: Male ? MR#: [id number] ?? Loc: ? RADIOLOGY REPORT ?? Order #[id number] ?? Radiology ? Tib/Fib RT 2 View ? Signed ? EXAM DESCRIPTION: ??Tib/Fib RT 2 View ? REASON FOR STUDY: ??post surgery 06/22/18, pt was at physical therapy yesterday ?? and fell, twisting ankle, ankle and knee pain ? TECHNIQUE: ??Two views acquired of the right tibia and fibula. ? COMPARISON: ??None available ? FINDINGS: ? BONES: Healing fracture of the proximal fibula diaphysis. ??Intramedullary danuta ?? with proximal and distal fixation screws traversing a mildly comminuted ?? oblique fracture of the proximal tibia metadiaphysis. ??Medial fixation plate ?? with multiple screws. ??Hardware appears intact without loosening. ??Diffuse ?? osseous demineralization. ??Subtle transverse lucency is redemonstrated in the ?? distal fibula as seen on ankle radiograph. ??No aggressive appearing osseous ?? lesion. ??Knee and ankle joints demonstrate normal alignment without ?? dislocation. ? SOFT TISSUES: Diffuse soft tissue swelling most pronounced overlying the ?? lateral malleolus. ? OTHER: No other significant finding. ? IMPRESSION: ??1. ??Subtle lucency through the distal fibula concerning for ?? nondisplaced fracture as described on dedicated ankle radiograph. ? 2. ??Healing fractures of the proximal fibula and tibia. ??Postsurgical changes ?? about the tibia without radiographic evidence of complicating feature. ? THIS IS AN ELECTRONICALLY VERIFIED FINAL REPORT ?? 08/22/2018 4:07 PM - Electronically signed by Aimee Cruz D.O. ?? Aimee Cruz D.O. ? AC: AC ?? D: ??08/22/2018 4:07 PM ?? T: ??08/22/2018 4:07 PM ? Report ID: [id number] ?? Reading Location: ??[id number] ? REPORT ELECTRONICALLY SIGNED IN OTHER VENDOR SYSTEM ?? Resulting Agency Comment E Procedure Note Aimee Cruz DO - 08/22/2018 Patient Name: ANGUS JAIN Dr: Sola Fuller CNP, D.O.B: 1970 Exam Date: 08/22/18 1550 Age: 48 Sex: Male MR#: [id number] Loc: RADIOLOGY REPORT Order #[id number] Radiology Tib/Fib RT 2 View Signed EXAM DESCRIPTION: Tib/Fib RT 2 View REASON FOR STUDY: post surgery 06/22/18, pt was at physical therapyyesterday and fell, twisting ankle, ankle and knee pain TECHNIQUE: Two views acquired of the right tibia and fibula. COMPARISON: None available FINDINGS: BONES: Healing fracture of the proximal fibula diaphysis. Intramedullaryrod with proximal and distal fixation screws traversing a mildly comminuted oblique fracture of the proximal tibia metadiaphysis. Medial fixationplate with multiple screws. Hardware appears intact without loosening.Diffuse osseous demineralization. Subtle transverse lucency is redemonstrated inthe distal fibula as seen on ankle radiograph. No aggressive appearingosseous lesion. Knee and ankle joints demonstrate normal alignment without dislocation. SOFT TISSUES: Diffuse soft tissue swelling most pronounced overlying the lateral malleolus. OTHER: No other significant finding. IMPRESSION: 1. Subtle lucency through the distal fibula concerning for nondisplaced fracture as described on dedicated ankle radiograph. 2. Healing fractures of the proximal fibula and tibia. Postsurgicalchanges about the tibia without radiographic evidence of complicating feature. THIS IS AN ELECTRONICALLY VERIFIED FINAL REPORT 08/22/2018 4:07 PM - Electronically signed by Aimee Cruz D.O. AC: BASIL Report ID: [id number] Reading Location: [place] [address] REPORT ELECTRONICALLY SIGNED IN OTHER VENDOR SYSTEM us Sola Fuller MEDICAL CHARGE ENTRY SPECIALIST IMG XR PROCEDURES Final Resu lt * XR Knee Right 1 or 2 Views (08/22/2018 12:00 AM CDT) Anatomical Region Laterality Modality Lower Extremities, Knee Right Radiogra phic Imaging 08/22/2018 4:02 PM CDT Narrative 08/22/2018 4:04 PM CDT Patient Name: ANGUS JAIN ?Ordering Dr: Sola Fuller JOURNEYMAN MECHANIC ?? D.O.B: 1970 ? Exam Date: 08/22/18 ?? 0000 ?? Age: 48 ?Sex: Male ? MR#: [id number] ?? Loc: ? RADIOLOGY REPORT ?? Order #[id number] ?? Radiology ? Knee RT 2Vw(Cant bend/stand) ? Signed ? EXAM DESCRIPTION: ?? Knee RT 2Vw(Cant bend/stand) ? REASON FOR STUDY: ??post surgery 06/22/18, pt was at physical therapy yesterday ?? and fell, twisting ankle, now has ankle and knee pain ? TECHNIQUE: ??AP and lateral radiographic views acquired of the right knee. ? COMPARISON: ??None available ? FINDINGS: ? BONES/JOINTS: Incompletely visualized intramedullary danuta in the distal femur. ? Intramedullary danuta with multiple screws in the proximal tibia as well as ?? medial fixation plate.Healing incompletely visualized fractures of the ?? proximal shaft of the fibula and proximal shaft of the tibia. ??Old fracture ?? deformity of the mid shaft of the right femur with large callus formation. ? No evidence for acute fracture. ??Mild tricompartmental joint space narrowing. ? No dislocation. ??Diffuse osseous demineralization. ? SOFT TISSUES: Trace knee joint effusion. ? OTHER: No other significant finding. ? IMPRESSION: ??1. ??Multiple healing fractures with postsurgical change. ??No ?? acute fracture or dislocation. ? 2. ??Trace knee joint effusion with mild degenerative change. ? THIS IS AN ELECTRONICALLY VERIFIED FINAL REPORT ?? 08/22/2018 4:04 PM - Electronically signed by Aimee Cruz D.O. ?? Aimee Cruz D.O. ? AC: AC ?? D: ??08/22/2018 4:04 PM ?? T: ??08/22/2018 4:04 PM ? Report ID: [id number] ?? Reading Location: ??[id number] ? REPORT ELECTRONICALLY SIGNED IN OTHER VENDOR SYSTEM ?? Resulting Agency Comment E Procedure Note Aimee Cruz DO - 08/22/2018 Patient Name: ANGUS JAIN Dr: Sola Fuller CNP, D.O.B: 1970 Exam Date: 08/22/18 0000 Age: 48 Sex: Male MR#: [id number] Loc: RADIOLOGY REPORT Order #[id number] Radiology Knee RT 2Vw(Cant bend/stand) Signed EXAM DESCRIPTION: Knee RT 2Vw(Cant bend/stand) REASON FOR STUDY: post surgery 06/22/18, pt was at physical therapyyesterday and fell, twisting ankle, now has ankle and knee pain TECHNIQUE: AP and lateral radiographic views acquired of the right knee. COMPARISON: None available FINDINGS: BONES/JOINTS: Incompletely visualized intramedullary danuta in the distalfemur. Intramedullary danuta with multiple screws in the proximal tibia as well as medial fixation plate.Healing incompletely visualized fractures of the proximal shaft of the fibula and proximal shaft of the tibia. Oldfracture deformity of the mid shaft of the right femur with large callusformation. No evidence for acute fracture. Mild tricompartmental joint spacenarrowing. No dislocation. Diffuse osseous demineralization. SOFT TISSUES: Trace knee joint effusion. OTHER: No other significant finding. IMPRESSION: 1. Multiple healing fractures with postsurgical change. No acute fracture or dislocation. 2. Trace knee joint effusion with mild degenerative change. THIS IS AN ELECTRONICALLY VERIFIED FINAL REPORT 08/22/2018 4:04 PM - Electronically signed by Aimee Cruz D.O. AC: BASIL Report ID: [id number] Reading Location: [id number] REPORT ELECTRONICALLY SIGNED IN OTHER VENDOR SYSTEM us Sola Fuller MEDICAL CHARGE ENTRY SPECIALIST IMG XR PROCEDURES Final Resu lt * XR Ankle Right 3 or More Views (08/22/2018 12:00 AM CDT) Anatomical Region Laterality Modality Lower Extremities, Ankle Right Radiogr aphic Imaging 08/22/2018 3:58 PM CDT Narrative 08/22/2018 4:02 PM CDT Patient Name: ANGUS JAIN ?Ordering Dr: Sola Fuller JOURNEYMAN MECHANIC ?? D.O.B: 1970 ? Exam Date: 08/22/18 ?? 0000 ?? Age: 48 ?Sex: Male ? MR#: [id number] ?? Loc: ? RADIOLOGY REPORT ?? Order #[id number] ?? Radiology ? Ankle RT 3 View Min ? Signed ? EXAM DESCRIPTION: ??Ankle RT 3 View Min ? REASON FOR STUDY: ??post surgery 06/22/18, pt was at physical therapy yesterday ?? and fell, twisting ankle, now has ankle and knee pain ? TECHNIQUE: ??AP, lateral, and oblique radiographic views acquired of the right ?? ankle. ? COMPARISON: ??None available ? FINDINGS: ? BONES/JOINTS: There is subtle transverse lucency through the distal fibula 2 ?? cm above the level of the ankle mortise without displacement or angulation. ? The remaining osseous structures are intact. ??Ankle mortise demonstrates ?? normal alignment. ??No dislocation. ??Large talar beak. ??Enthesophyte at the ?? attachment of Achilles tendon on the calcaneus. ??No aggressive appearing ?? osseous lesion.Incompletely visualized intramedullary danuta with 2 distal ?? fixation screws in the tibia without evidence of loosening as visualized. ? SOFT TISSUES: Diffuse soft tissue swelling most pronounced laterally. ? OTHER: No other significant finding. ? IMPRESSION: ??Subtle transverse lucency of the distal fibula 2 cm above the ?? level of the ankle mortise concerning for nondisplaced fracture. ? THIS IS AN ELECTRONICALLY VERIFIED FINAL REPORT ?? 08/22/2018 4:02 PM - Electronically signed by Aimee Cruz D.O. ?? Aimee Cruz D.O. ? AC: AC ?? D: ??08/22/2018 4:02 PM ?? T: ??08/22/2018 4:02 PM ? Report ID: [id number] ?? Reading Location: ??[id number] ? REPORT ELECTRONICALLY SIGNED IN OTHER VENDOR SYSTEM ?? Resulting Agency Comment E Procedure Note Aimee Cruz DO - 08/22/2018 Patient Name: ANGUS JAIN Dr: Sola Fuller CNP, D.O.B: 1970 Exam Date: 08/22/18 0000 Age: 48 Sex: Male MR#: [id number] Loc: RADIOLOGY REPORT Order #[id number] Radiology Ankle RT 3 View Min Signed EXAM DESCRIPTION: Ankle RT 3 View Min REASON FOR STUDY: post surgery 06/22/18, pt was at physical therapyyesterday and fell, twisting ankle, now has ankle and knee pain TECHNIQUE: AP, lateral, and oblique radiographic views acquired of theright ankle. COMPARISON: None available FINDINGS: BONES/JOINTS: There is subtle transverse lucency through the distalfibula 2 cm above the level of the ankle mortise without displacement orangulation. The remaining osseous structures are intact. Ankle mortise demonstrates normal alignment. No dislocation. Large talar beak. Enthesophyte atthe attachment of Achilles tendon on the calcaneus. No aggressive appearing osseous lesion.Incompletely visualized intramedullary danuta with 2 distal fixation screws in the tibia without evidence of loosening as visualized. SOFT TISSUES: Diffuse soft tissue swelling most pronounced laterally. OTHER: No other significant finding. IMPRESSION: Subtle transverse lucency of the distal fibula 2 cm abovethe level of the ankle mortise concerning for nondisplaced fracture. THIS IS AN ELECTRONICALLY VERIFIED FINAL REPORT 08/22/2018 4:02 PM - Electronically signed by Aimee Cruz D.O. AC: BASIL Report ID: [id number] Reading Location: [place] [address] REPORT ELECTRONICALLY SIGNED IN OTHER VENDOR SYSTEM Sola Fuller MEDICAL CHARGE ENTRY SPECIALIST IMG XR PROCEDURES Final Resu lt documented in this encounter Visit Diagnoses Not on filedocumented in this encounter Care Teams Senior Accounting Associate Relationship Specialty Start Date End Date Jose Mo MD [address] [facility] [address] [place] [address] PCP - General 08/22/18 Jose Mo MD [address] [facility] [address] [place] [address] 08/22/18 documented as of this encounter
--- OUTSIDE RECORDS SUMMARY | 2024-03-26 21:37 | XMS_ITS | Encounter Summary ---
Author Organization [facility] Address [address] [place] [address] Phone Care Team Providers Care Shipping Lead Person Name Role Phone Jose Mo MD Primary Care Provider [phone] Jose Mo MD Unavailable Reason for Referral * Diagnostic Imaging (Routine) - Closed Specialty Diagnoses / Procedures Referred By Barbara t Referred To Contact Diagnoses Closed displaced oblique fracture of shaft of right tibia with routine healing, subsequent encounter Procedures XR Tibia Fibula Right 2 Views Flash Magaña MD Phone: tel: fax: [facility] Referral ID Status Reason Start Date Expiration Date Visits Re quested Visits Authorized [id number] Closed 04/19/2020 05/19/2021 1 1 ER GAGER APPRENTICE Reason for Visit * Reason Comments Fracture Encounter Details Date Type Department Care Team (Late st Contact Info) Description 04/20/2020 12:10 PM PUMPER GAGER APPRENTICE Office Visit [facility] Orthopaedic Surgery [address] [place] [address] 6th [place] [address] [place] [address] Flash Magaña MD [address] [place] [address] Closed displaced oblique fracture of shaft of [...] on file Legal Sex Male 6:24 PM PUMPER GAGER APPRENTICE Gender Identity Male 04/18/2020 9:24 AM PUMPER GAGER APPRENTICE Sexual Orientation Straight 04/18/2020 9: 24 AM PUMPER GAGER APPRENTICE documented as of this encounter Progress Notes * Flash Magaña MD - 04/20/2020 12:10 PM CST RETURN PATIENT VISIT CHIEF COMPLAINT Right knee pain INTERIM HISTORY Recall the patient is a 49-year-old gentleman he had a proximal tibia fractures treated with the nail plate construct on the 12 June 2018. He returns today because of right sided medial knee pain. This started on Friday acutely. It has been slowly improving since then. He comes in today to make sure everything is okay PHYSICAL EXAMINATION Well-developed, well-nourished, in no acute distress. Alert and oriented x 3. Normal respirations, no dyspnea with speaking. The uninjured extremities are warm and show good perfusion; neurologically intact to light touch throughout. Skin is intact and there is no lymphedema. Examination today demonstrates that the incisions are healed. There is no erythema or drainage. He has no pain over his medial proximal tibia. He does have discrete tenderness palpation over his medial joint line. Range of motion is approximately 0-90 degrees. Neurovascular exam is unchanged versusprior with maintained dorsally and plantar flexion of the ankle REVIEW OF X-RAYS/STUDIES I have ordered and personally reviewed radiographs of the patient's right tibia and fibula. Healed fracture. Stable internal fixation ASSESSMENT Healed right proximal tibia fracture. Medial joint line pain concerning for potential medial compartment arthritis versus medial meniscus tear PLAN/FOLLOW UP Plan: The patient's symptoms are improving already. I do not think we need to do anything invasive at this point time to include the injection or other diagnostic tests. I do not think that the implants are causing these symptoms. We both agreed that working observed symptoms over time. If the the do not improve or in fact worsen he can call us back in a couple weeks and will potentially consideran intra-articular injection. He can continue weight-bearing as tolerated activity as tolerated. Note for work was provided ER GAGER APPRENTICE documented in this encounter Plan of Treatment Not on file documented as of this encounter Results * XR Tibia Fibula Right 2 Views (04/20/2020 12:22 PM PUMPER GAGER APPRENTICE) Anatomical Region Laterality Modality Lower Extremities, Lower Leg Right Com puted Radiography 04/20/2020 12:3 5 PM PUMPER GAGER APPRENTICE Impressions 04/20/2020 12:35 PM PUMPER GAGER APPRENTICE 1. Right tibial nailing and plate and screw fixation for management of a healed proximal right tibial shaft fracture 2. Healed proximal right fibular shaft fracture Electronically signed by: Ester Castanon M.D. Narrative 04/20/2020 12:35 PM PUMPER GAGER APPRENTICE EXAMINATION: XR TIBIA FIBULA RIGHT2 VIEWS HISTORY: Right tibial fracture FINDINGS: 2 views of the right tibia and fibula are submitted on 4 exposures with comparison to radiographs dated 11/19/2018. There are postoperative changes of right tibial nailing and plate and screw fixation for management of a healed proximal right tibial shaft fracture. A femoral nail is partially visualized. There is an additional healed fracture of the proximal right fibular shaft. Instrumentation is intact. The ankle mortise and syndesmosis are intact. Heterotopic ossification is noted at the dorsal talus. There is a tiny calcaneal spur and small Achilles enthesophyte. Procedure Note Ester Castanon MD - 04/20/2020 EXAMINATION: XR TIBIA FIBULA RIGHT2 VIEWS HISTORY: Right tibial fracture FINDINGS: 2 views of the right tibia and fibula are submitted on 4 exposures with comparison to radiographs dated 11/19/2018. There are postoperative changes of right tibial nailing and plate and screw fixation for management of a healed proximal right tibial shaft fracture. A femoral nail is partially visualized. There is an additional healed fracture of the proximal right fibular shaft. Instrumentation is intact. The ankle mortise and syndesmosis are intact. Heterotopic ossification is noted at the dorsal talus. There is a tiny calcaneal spur and small Achilles enthesophyte. IMPRESSION: 1. Right tibial nailing and plate and screw fixation for management of a healed proximal right tibial shaft fracture 2. Healed proximal right fibular shaft fracture Electronically signed by: Ester Castanon M.D. Flash Magaña MD IMG XR PROCEDURES Final Result documented in this encounter Visit Diagnoses Diagnosis Closed displaced oblique fracture of shaft of right tibia with routine healing, subsequent encounter- Primary Closed displaced oblique fracture of shaft of right tibia with routine healing, subsequent encounter documented in this encounter Discontinued Medications Medication Sig Discontinue Reason Start Date End Da te ammonium lactate (LAC-HYDRIN) 12 % lotion ammonium lactate 12 % lotion KENY EXT TO AB FEET D PRN 04/20/2020 ketoconazole (NIZORAL) 2 % cream ketoconazole 2 % topical cream KENY BID. 04/20/2020 levoFLOXacin (LEVAQUIN) 750 mg tablet TK 1 T PO QD 09/20/2018 04/20/2020 penicillin v potassium (VEETID) 500 mg tablet penicillin V potassium 500 mg tablet 04/20/2020 triamcinolone (KENALOG) 0.1 % cream triamcinolone acetonide 0.1 % topical cream 04/20/2020 documented as of this encounter Historical Medications * This list may reflect changes made after this encounter. psyllium, aspartame, SF (METAMUCIL SF) 3.4 gram packetIndicatio ns:constipation Take 1 packet by mouth daily miconazole 2 % powder Apply 1 g (1 application total) topically as needed triamcinolone (KENALOG) 0.1 % cream triamcinolone acetonide 0.1 % topical cream 1 tadalafiL (CIALIS) 5 mg tablet Cialis 5 mg tablet TAKE ONE T PO EVERY DAY 03/23/2019 1 penicillin v potassium (VEETID) 500 mg tablet penicillin V potassium 500 mg tablet 1 nitrofurantoin (MACRODANTIN) 50 mg capsule nitrofurantoin macrocrystal 50 mg capsule 1 ketoconazole (NIZORAL) 2 % cream ketoconazole 2 % topical cream KENY BID. 1 hydrocortisone- pramoxine (ANALPRAM-HC) 2.5-1 % rectal cream hydrocortisone-pram oxine 2.5 %-1 % rectal cream 1 ammonium lactate (LAC-HYDRIN) 12 % lotion ammonium lactate 12 % lotion KENY EXT TO AB FEET D PRN 1 added in this encounter Care Teams Shipping Lead Person Relationship Specialty Start Date End Date Jose Mo MD [address] [address] PCP - General 08/22/18 Jose Mo MD [address] [address] 08/22/18 documented as of this encounter
--- OUTSIDE RECORDS SUMMARY | 2024-03-26 21:37 | XMS_ITS | Encounter Summary ---
Author Organization [facility] Address [address] [place] [address] Phone Care Team Providers Care Gravel Wheeler Name Role Phone Jose Mo MD Primary Care Provider [phone] Jose Mo MD Unavailable [phone] Reason for Referral * Diagnostic Imaging (Routine) - Closed Specialty Diagnoses / Procedures Referred By Barbara goldman Referred To Contact Radiology Diagnoses Closed displaced oblique fracture of shaft of right tibia with routine healing, subsequent encounter Procedures MRI Knee Right WO Contrast Flash Magaña MD Phone: tel: fax: [address] [address] Referral ID Status Reason Start Date Expiration Date Visits Re quested Visits Authorized [id number] Closed 11/19/2018 05/30/2020 1 1 * Diagnostic Imaging (Routine) - Closed Specialty Diagnoses / Procedures Referred By Barbara goldman Referred To Contact Diagnoses Closed displaced oblique fracture of shaft of right tibia with routine healing, subsequent encounter Procedures XR Tibia Fibula Right 2 Views Flash Magaña MD Phone: tel: fax: [facility] Referral ID Status Reason Start Date Expiration Date Visits Re quested Visits Authorized [id number] Closed 11/18/2018 05/29/2020 1 1 Reason for Visit * Reason Comments Follow-up Encounter Details Date Type Department Care Team (Late st Contact Info) Description 11/19/2018 11:10 AM CDT Office Visit [facility] Orthopaedic Surgery [address] [place] [address] [place] [address] Flash Magaña MD [address] [place] [address] Closed displaced oblique fracture of shaft of right tibia with routine healing, subsequent encounter (Primary Dx); Displaced transverse fracture of shaft of right fibula, initial encounter for closed fracture Social History Tobacco Use Types Packs/Day Years Used Date Smoking Tobacco: Every Day Cigarettes Smokeless Tobacco: Never Alcohol Use Standard Drinks/Week Comments Not Currently 0 (1 standard drink = 0.6 oz pur e alcohol) Sex and Gender Information Value Date Recorded Sex Assigned at Not on file Legal Sex Male 6:24 PM CAPTAIN AIRLINE PILOT Gender Identity Male 04/18/2020 9:24 AM CAPTAIN AIRLINE PILOT Sexual Orientation Straight 04/18/2020 9: 24 AM CAPTAIN AIRLINE PILOT documented as of this encounter Progress Notes * Flash Magaña MD - 11/19/2018 11:10 AM CDT Status post intramedullary nailing and plate fixation of his proximal tibia and fibular fracture performed 06/12/2018 that was complicated by delayed wound healing s/p I&D. Subjective: Overall he is doing okay, he is ambulating without significant pain, his only complaint is pain in the anterior portion of his proximal tibia that improves with massage and physical therapy. He has some pain over the medial aspect of his joint line but denies any catching locking or mechanical symptoms. His motion is improving. He denies any numbness or tingling. Objective: Patient is healthy-appearing and well-groomed, in no apparent distress. Patient is oriented to time, place, and person. Incision healed Range of motion: diminished range with pain. Leg warm and well-perfused, capillary refill <2 seconds. Neurovascular exam at baseline otherwise. Tenderness to palpation mildly over the tibial tubercle and proximal tibia. Mild medial joint line pain. Negative Javi's testing. No significant knee effusion. Imaging: Right proximal tibia fracture healing well in proper alignment. No sign of hardware loosening or breakage. Assessment: Mr. Jain is a 48 y.o. male who sustained a right side proximal tibia fracture status post ORIF and intramedullary nail. Plan: 1) WBAT. 2) 3) Pain management: Tylenol 4) Splinting/bracing/casting: Knee brace as needed 5) Physical therapy: Continue therapy 6) Bone health: As prescribed 7) Call with any questions. 8) Work status: as tolerated We will obtain an MRI given patient concerns with his knee and medial joint line pain documented in this encounter Plan of Treatment Not on file documented as of this encounter Results * MRI Knee Right [...] it. Electronically signed by: Gerardo Barrow M.D. Flash Magaña MD IM MRI PROCEDURES Final Result * XR Tibia Fibula Right 2 Views [...] it. Electronically signed by: Omid Gutierrez MD [facility] Mario Magaña MD IMG XR PROCEDURES Final Result documented in this encounter Visit Diagnoses Diagnosis Closed displaced oblique fracture of shaft of right tibia with routine healing, subsequent encounter- Primary Displaced transverse fracture of shaft of right fibula, initial encounter for closed fracture Closed displaced oblique fracture of shaft of right tibia with routine healing, subsequent encounter Closed displaced oblique fracture of shaft of right tibia with routine healing, subsequent encounter documented in this encounter Care Teams Gravel Wheeler Relationship Specialty Start Date End Date Jose Mo MD [id number] [place] [address] PCP - General 08/22/18 Jose Mo MD [address] [id number] 08/22/18 documented as of this encounter
--- OUTSIDE RECORDS SUMMARY | 2024-03-26 21:37 | XMS_ITS | Encounter Summary ---
Author Organization [facility] Address [address] [place] [address] Phone Care Team Providers Care Cold Mill Supervisor Name Role Phone Jose Mo MD Primary Care Provider [phone] Jose Mo MD Unavailable [phone] Encounter Details Date Type Department Care Team (Late st Contact Info) Description 07/20/2019 Telephone [facility] Infectious Diseases [address] [place] [address] [address] [place] [address] Andrea Hsieh, [facility] Social History Tobacco Use Types Packs/Day Years Used Date Smoking Tobacco: Every Day Cigarettes Smokeless Tobacco: Never Alcohol Use Standard Drinks/Week Comments Not Currently 0 (1 standard drink = 0.6 oz pur e alcohol) Sex and Gender Information Value Date Recorded Sex Assigned at Not on file Legal Sex Male 6:24 PM COTTON PICKER Gender Identity Male 04/18/2020 9:24 AM COTTON PICKER Sexual Orientation Straight 04/18/2020 9: 24 AM COTTON PICKER documented as of this encounter Miscellaneous Notes * Telephone Encounter - Nat Beck - 07/21/2019 9:15 AM CDT Return call, lvm * Telephone Encounter - Andrea Hsieh RMA - 07/20/2019 1:24 PM CDT Pt significant other call to apologizes for missing the appointment today. They are requesting a call back. documented in this encounter Plan of Treatment Not on file documented as of this encounter Visit Diagnoses Not on filedocumented in this encounter Care Teams Cold Mill Supervisor Relationship Specialty Start Date End Date Jose Mo MD [address] [address] PCP - General 08/22/18 Jose Mo MD [address] [address] 08/22/18 documented as of this encounter
--- OUTSIDE RECORDS SUMMARY | 2024-03-26 21:37 | XMS_ITS | Encounter Summary ---
Author Organization [facility] Address [address] [place] [address] Care Team Providers Care Cremator Name Role Phone Jose Mo MD Primary Care Provider [phone] Jose Mo MD Unavailable [phone] Reason for Referral * Diagnostic Imaging (Routine) - Closed Specialty Diagnoses / Procedures Referred By Contac t Referred To Contact Diagnoses Closed displaced oblique fracture of shaft of right tibia with routine healing, subsequent encounter Procedures XR Tibia Fibula Right 2 Views Flash Magaña MD Phone: tel: fax: [facility] Referral ID Status Reason Start Date Expiration Date Visits Re quested Visits Authorized [id number] Closed 04/19/2020 05/19/2021 1 1 AL RUNNER Reason for Visit * Diagnostic Imaging (Routine) - Closed Specialty Diagnoses / Procedures Referred By Contac t Referred To Contact Diagnoses Closed displaced oblique fracture of shaft of right tibia with routine healing, subsequent encounter Procedures XR Tibia Fibula Right 2 Views Flash Magaña MD Phone: tel: fax: [facility] Referral ID Status Reason Start Date Expiration Date Visits Re quested Visits Authorized [id number] Closed 04/19/2020 05/19/2021 1 1 Encounter Details Date Type Department Care Team (Late st Contact Info) Description 04/20/2020 11:54 AM SPIRAL RUNNER - 04/20/2020 11:59 PM SPIRAL RUNNER Hospital Encounter [facility] [address] [place] [address] Flash Magaña MD [address] [facility] [address] [place] [address] Closed displaced oblique fracture of shaft of [...] on file Legal Sex Male 6:24 PM SPIRAL RUNNER Gender Identity Male 04/18/2020 9:24 AM SPIRAL RUNNER Sexual Orientation Straight 04/18/2020 9: 24 AM SPIRAL RUNNER documented as of this encounter Medications [...] total) by mouth daily before breakfast 0 miconazole 2 % powder Apply 1 g [...] FIVE TIMES DAILY DIRECTED 150 tablet 1 0 05/18/19 21 cyclobenzaprine (FLEXERIL) 10 mg tablet TAKE 1 TABLET(10 MG) BY MOUTH THREE TIMES DAILY NEEDED FOR MUSCLE SPASMS 30 tablet 9 02/01/20 22 hydrocortisone 2.5 % cream Apply topically daily as needed for rash 30 g 9 04/24/19 22 hydrocortisone-p ramoxine (ANALPRAM-HC) 2.5-1 % rectal cream hydrocortisone-pram oxine 2.5 %-1 % rectal cream 08/23/19 21 mupirocin (BACTROBAN) 2 % ointment Apply topically daily 22 g 0 07/28/19 21 nitrofurantoin (MACRODANTIN) 50 mg capsule nitrofurantoin macrocrystal 50 mg capsule 05/18/19 21 nitrofurantoin monohydrate (MACROBID) 100 mg capsuleIndicatio ns:Recurrent UTI TAKE 1 CAPSULE(100 MG) BY MOUTH DAILY 30 capsule 1 05/18/19 21 tadalafiL (CIALIS) 5 mg tablet Cialis 5 mg tablet TAKE ONE T PO EVERY DAY 9 03/12/20 21 documented as of this encounter Discharge Disposition Disposition Code Departure Means Destination Discharge to home or self care documented in this encounter Plan of Treatment Not on file documented as of this encounter Procedures Procedure Name Priority Date/Time Associated Diagnosis Comments XR TIBIA FIBULA RIGHT2 VIEWS Schedule Routine, Read Routine (OP Routine) 04/20/2020 12:22 PM SPIRAL RUNNER Closed displaced oblique fracture of shaft of right tibia with routine healing, subsequent encounter documented in this encounter Results * XR Tibia Fibula Right 2 Views (04/20/2020 12:22 PM SPIRAL RUNNER) Anatomical Region Laterality Modality Lower Extremities, Lower Leg Right Com puted Radiography 04/20/2020 12:3 5 PM SPIRAL RUNNER Impressions 04/20/2020 12:35 PM SPIRAL RUNNER 1. Right tibial nailing and plate and screw fixation for management of a healed proximal right tibial shaft fracture 2. Healed proximal right fibular shaft fracture Electronically signed by: Ester Castanon M.D. Narrative 04/20/2020 12:35 PM SPIRAL RUNNER EXAMINATION: XR TIBIA FIBULA RIGHT2 VIEWS HISTORY: [...] encounter documented in this encounter Care Teams Cremator Relationship Specialty Start Date End Date Jose Mo MD [address] [address] PCP - General 08/22/18 Jose Mo MD [address] [address] 08/22/18 documented as of this encounter
--- OUTSIDE RECORDS SUMMARY | 2024-03-26 21:37 | XMS_ITS | Encounter Summary ---
Author Organization [facility] Address [address] [place] [address] Care Team Providers Care Gas Torch Brazier Name Role Phone Jose Mo MD Primary Care Provider [phone] Jose Mo MD Unavailable Reason for Visit * Reason Comments Preventative Care Encounter Details Date Type Department Care Team (Late st Contact Info) Description 02/23/2020 2:00 PM PIE CRUST MIXER Office Visit [facility] [address] [facility] [address] [facility] [place] [id number] Jose Mo MD [address] [facility] [address] [place] [address] Screening for lipid disorders (Primary Dx); Quadriparesis (CMS/HCC); Seizures (CMS/HCC); Recurrent UTI; Gastroesophageal reflux disease without esophagitis; Routine general medical examination at a health care facility Social History Tobacco Use Types Packs/Day Years Used Date Smoking Tobacco: Every Day Cigarettes Smokeless Tobacco: Never Alcohol Use Standard Drinks/Week Comments Not Currently 0 (1 standard drink = 0.6 oz pur e alcohol) Sex and Gender Information Value Date Recorded Sex Assigned at Not on file Legal Sex Male 6:24 PM PIE CRUST MIXER Gender Identity Male 04/18/2020 9:24 AM PIE CRUST MIXER Sexual Orientation Straight 04/18/2020 9: 24 AM PIE CRUST MIXER documented as of this encounter Last Filed Vital Signs Vital Sign Reading Time Taken Comments Blood Pressure 153/78 02/23/2020 1:39 PM PIE CRUST MIXER Pulse 84 02/23/2020 1:39 PM PIE CRUST MIXER Temperature - - Respiratory Rate - - Oxygen Saturation - - Inhaled Oxygen Concentration - - Weight 105.2 kg (232 lb) 02/23/2020 1:39 PM PIE CRUST MIXER Height 172.7 cm (5' 8 ) 02/23/2020 1:39 PM PIE CRUST MIXER Body Mass Index 35.28 02/23/2020 1:39 PM PIE CRUST MIXER documented in this encounter Progress Notes * Jose Mo MD - 02/23/2020 2:00 PM CST Images from the original note were not included. Subjective/Objective Patient ID: Angus Jain is a 49 y.o. male. Chief Complaint Preventative Care HPI Here for a wellness visit Patient with a history of spastic quadriplegia currently undergoing physical therapy has been doingreasonably well he has remained off cigarettes. He has not had a urinary tract infection in sometime on suppressive antibiotics. Otherwise he has been feeling well with no chest pain no shortness of breath no nausea no Past Surgical History: Procedure Laterality Date ??? [...] Currently ??? Drug use: Not on file Current Outpatient Medications Medication Sig ??? esomeprazole DR (NexIUM) 40 mg capsule esomeprazole magnesium 40 mg capsule,delayed release ??? ascorbic acid (VITAMIN C) 1,000 mg [...] BY MOUTH FIVE TIMES DAILY DIRECTED ??? cyclobenzaprine (FLEXERIL) 10 mg tablet TAKE 1 TABLET(10 MG) BY MOUTH THREE TIMES DAILY NEEDED FOR MUSCLE SPASMS ??? diphenhydrAMINE (BENADRYL) 25 mg capsule Take 1 tablet/capsule (25 mg total) by mouth every 6 (six) hours as needed for itching ??? hydrocortisone 2.5 % cream Apply topically daily as needed for rash ??? levoFLOXacin (LEVAQUIN) 750 mg tablet TK 1 T PO QD ??? nitrofurantoin monohydrate (MACROBID) 100 mg capsule TAKE 1 CAPSULE(100 MG) BY MOUTH DAILY Review of Systems Constitutional: Negative for fatigue, [...] dysuria, frequency, hematuria and testicular pain. Musculoskeletal: Positive for back pain. Negative for gait problem. Skin: Negative for rash. Neurological: Positive for weakness. Negative for dizziness, speech difficulty, light-headedness and headaches. Hematological: Negative for adenopathy. Psychiatric/Behavioral: Negative for dysphoric mood and sleep disturbance. The patient is not nervous/anxious. Patient Vital Signs for the past 24 hrs: BP Pulse Height Weight 02/23/20 1339 153/78 84 172.7 cm (5' 8 ) 105.2 kg (232 lb) Physical Exam Constitutional: Appearance: Normal appearance. HENT: Head: Normocephalic and atraumatic. Right Ear: Tympanic membrane normal. Left Ear: Tympanic membrane normal. Nose: Nose normal. Mouth/Throat: Mouth: Mucous membranes are moist. Pharynx: Oropharynx is clear. Eyes: Extraocular Movements: Extraocular movements intact. Pupils: Pupils are equal, round, and reactive to light. Neck: Musculoskeletal: Normal range of motion. Cardiovascular: Rate and Rhythm: Normal rate and regular rhythm. Pulses: Normal pulses. Heart sounds: Normal heart sounds. Pulmonary: Effort: Pulmonary effort is normal. Breath sounds: Normal breath sounds. No wheezing or rales. Abdominal: General: Abdomen is flat. Bowel sounds are normal. Palpations: Abdomen is soft. Musculoskeletal: General: No swelling or deformity. Skin: General: Skin is warm and dry. Capillary Refill: Capillary refill takes less than 2 seconds. Findings: No bruising or rash. Neurological: General: No focal deficit present. Mental Status: He is alert and oriented to person, place, and time. Mental status is at baseline. Cranial Nerves: No cranial nerve deficit. Motor: Weakness present. Gait: Gait normal. Deep Tendon Reflexes: Reflexes normal. Psychiatric: Mood and Affect: Mood normal. Behavior: Behavior normal. Assessment/Plan Diagnoses and all orders for this visit: Screening for lipid disorders (Z13.220) (Primary) - POCT glucose - POCT lipid panel Quadriparesis (CMS/HCC) (G82.50) Assessment & Plan: Stable and unchanged. Will continue physical therapy. Seizures (CMS/[facility]) (R56.9) Assessment & Plan: Doing well check Tegretol level Recurrent UTI (N39.0) Assessment & Plan: On suppressive therapy will check urinalysis Gastroesophageal reflux disease without esophagitis (K21.9) Assessment & Plan: Check B12 level Routine general medical examination at a health care facility (Z00.00) Labs No results found for: HGBA1C No results found for: POCCHOL, POCHDL, POCTRIG, POCLDL, POCNONHDL Lab Results Component Value Date COLORU Yellow 05/25/2019 CLARITYU Clear 05/25/2019 GLUCOSEUR Negative 05/25/2019 BILIRUBINUR Negative 05/25/2019 KETONESU Negative 05/25/2019 SPECGRAVU 1.010 05/25/2019 BLOODUR Negative 05/25/2019 UROBILINOGEN <2.0 05/25/2019 Jose Mo MD CRUST MIXER documented in this encounter Miscellaneous Notes * Assessment & Plan Note - Jose Mo MD - 02/23/2020 2:02 PM PIE CRUST MIXER Associated Problem(s): Gastroesophageal reflux disease without esophagitis Check B12 level CRUST MIXER * Assessment & Plan Note - Jose Mo MD - 02/23/2020 2:02 PM PIE CRUST MIXER Associated Problem(s): Seizures (HCC) Doing well check Tegretol level CRUST MIXER * Assessment & Plan Note - Jose Mo MD - 02/23/2020 2:02 PM PIE CRUST MIXER Associated Problem(s): Recurrent UTI On suppressive therapy will check urinalysis CRUST MIXER * Assessment & Plan Note - Jose Mo MD - 02/23/2020 2:02 PM PIE CRUST MIXER Associated Problem(s): Quadriparesis (HCC) Stable and unchanged. Will continue physical therapy. CRUST MIXER documented in this encounter Plan of Treatment Not on file documented as of this encounter Procedures Procedure Name Priority Date/Time Associated Diagnosis Comments MICROSCOPIC EXAMINATION Routine 02/23/2020 2:22 PM PIE CRUST MIXER PSA SCREEN Routine 02/23/2020 2:22 PM PIE CRUST MIXER Seizures (CMS/HCC) Recurrent UTI Gastroesophageal reflux disease without esophagitis URINALYSIS AND REFLEX TO MICROSCOPIC AND CULTURE Routine 02/23/2020 2:22 PM PIE CRUST MIXER Seizures (CMS/HCC) Recurrent UTI Gastroesophageal reflux disease without esophagitis CBC WITH AUTO DIFFERENTIAL Routine 02/23/2020 2:22 PM PIE CRUST MIXER Seizures (CMS/HCC) Recurrent UTI Gastroesophageal reflux disease without esophagitis TSH Routine 02/23/2020 2:22 PM PIE CRUST MIXER Seizures (CMS/HCC) Recurrent UTI Gastroesophageal reflux disease without esophagitis VITAMIN B12 Routine 02/23/2020 2:22 PM PIE CRUST MIXER Seizures (CMS/HCC) Recurrent UTI Gastroesophageal reflux disease without esophagitis COMPREHENSIVE METABOLIC PANEL Routine 02/23/2020 2:22 PM PIE CRUST MIXER Seizures (CMS/HCC) Recurrent UTI Gastroesophageal reflux disease without esophagitis POCT GLUCOSE [id number] Routine 02/23/2020 2: 05 PM PIE CRUST MIXER Screening for lipid disorders documented in this encounter Results * Microscopic Examination (02/23/2020 2:22 PM PIE CRUST MIXER) WBC, ur 0-5 0 - 5 /hpf [facility] - 01 RBC, ur 0-2 0 - 2 /hpf [facility] - 01 Epithelial cells, non-renal, ur 0-10 0 - 10 /hpf [facility] - 01 Mucous Threads Present Not Estab. [facility] - 01 Bacteria, ur None seen None seen/Few [facility] - 01 02/23/2020 2:22 PM PIE CRUST MIXER 02/23/2020 Narrative [facility] - 02/24/2020 8:15 AM PIE CRUST MIXER Performed at: ??01 - [facility] [address] ??[id number] Staffing Branch Manager: Flex Rivera PhD, Phone: ??[phone] Jose Mo MD LAB BLOOD ORDERABLES Final Re sult [facility] - * Vitamin B12 (02/23/2020 2:22 PM PIE CRUST MIXER) Vitamin B12 554 232 - 1,245 pg/mL [facility] - 01 Blood specimen (specimen) 02/23/2020 2:22 PM PIE CRUST MIXER 02/23/2020 Narrative [facility] - 02/24/2020 8:15 AM PIE CRUST MIXER Performed at: ??01 - [facility] [address] ??[id number] Staffing Branch Manager: Flex Rivera PhD, Phone: ??[phone] us Jose Mo MD LAB BLOOD ORDERABLES Final Re sult Performing Organization Address [facility]/ZIP Co de Phone Number [facility] - * PSA screen (02/23/2020 2:22 PM PIE CRUST MIXER) [facility] PSA 0.7 0.0 - 4.0 ng/mL [facility] - 01 Comment: Job ECLIA methodology. According to the [employer], Serum PSA should decrease and [...] absence of malignant disease. Blood specimen (specimen) 02/23/2020 2:22 PM PIE CRUST MIXER 02/23/2020 Narrative [facility] - 02/24/2020 8:15 AM PIE CRUST MIXER Performed at: ?? - [facility] ??[id number] Staffing Branch Manager: Flex Rivera PhD, Phone: ??[phone] Jose Mo MD LAB BLOOD ORDERABLES Final Re sult Performing Organization Address [facility] de Phone Number [facility] - * Urinalysis reflex to microscopic and culture Urine (02/23/2020 2:22 PM PIE CRUST MIXER) [facility] Specific [place] 1.026 1.005 - 1.030 [facility] - 01 pH, ur 5.5 5.0 - 7.5 [facility] - 01 Color, [...] ot reflex to a Urine Culture. Urine 02/23/2020 2:22 PM PIE CRUST MIXER 02/23/2020 Narrative [facility] - 02/24/2020 8:15 AM PIE CRUST MIXER Performed at: ??01 - [facility] ??[id number] Staffing Branch Manager: Flex Rivera PhD, Phone: ??[phone] Jose Mo MD LAB MICROBIOLOGY - GENERAL OR DERABLES Final Result Performing Organization Address [facility] Co de Phone Number [facility] - * TSH (02/23/2020 2:22 PM PIE CRUST MIXER) Pathologist [facility] TSH 1.170 0.450 - 4.500 uIU/mL [facility] - 01 Blood specimen (specimen) 02/23/2020 2:22 PM PIE CRUST MIXER 02/23/2020 Narrative [facility] - 02/24/2020 8:15 AM PIE CRUST MIXER Performed at: ?? - [facility] ??[id number] Staffing Branch Manager: Flex Rivera PhD, Phone: ??[phone] Jose Mo MD LAB BLOOD ORDERABLES Final Re sult Performing Organization Address [facility] Co de Phone Number [facility] - * Comprehensive metabolic panel (02/23/2020 2:22 PM PIE CRUST MIXER) Glucose 95 65 - 99 mg/dL [facility] - 01 BUN 16 6 - 24 mg/dL [facility] - 01 Creatinine, Serum 1.08 0.76 - 1.27 mg/dL [facility] - 01 eGFR If NonAfricn Am 81 >59 mL/min/1.73 [facility] - 01 eGFR If Africn Am 93 >59 mL/min/1.73 [facility] - 01 BUN/creat ratio 15 9 - 20 [facility] - 01 Sodium 143 134 - 144 mmol/L [facility] - 01 Potassium, sr 4.4 3.5 - 5.2 mmol/L [facility] - 01 Chloride 104 96 - 106 mmol/L [facility] - 01 CO2 23 20 - 29 mmol/L [facility] - 01 Calcium 8.9 8.7 - 10.2 mg/dL [facility] - 01 Protein, sr 6.7 6.0 - 8.5 g/dL [facility] - 01 Albumin 4.6 4.0 - 5.0 g/dL [facility] - 01 Globulin, Total 2.1 1.5 - 4.5 g/dL [facility] - 01 A/G Ratio 2.2 1.2 - 2.2 [facility] - 01 Bilirubin, Total <0.2 0.0 - 1.2 mg/dL [facility] - 01 Alk phos 111 39 - 117 IU/L [facility] - 01 AST 19 0 - 40 IU/L [facility] - 01 ALT 21 0 - 44 IU/L [facility] - 01 Blood specimen (specimen) 02/23/2020 2:22 PM PIE CRUST MIXER 02/23/2020 Narrative [facility] - 02/24/2020 8:15 AM PIE CRUST MIXER Performed at: ??01 - [facility] [address] ??[id number] Staffing Branch Manager: Flex Rivera PhD, Phone: ??[phone] us Jose Mo MD LAB BLOOD ORDERABLES Final Re sult [facility] - 01 * (ABNORMAL) CBC with auto differential (02/23/2020 2:22 PM PIE CRUST MIXER) WBC 6.0 3.4 - 10.8 x10E3/uL [facility] - 01 RBC 4.21 4.14 - 5.80 x10E6/uL [facility] - 01 Hgb 12.8(L) 13.0 - 17.7 g/dL [facility] - 01 Hct 37.5 37.5 - 51.0 % [facility] - 01 MCV 89 79 - 97 fL [facility] - 01 MCH 30.4 26.6 - 33.0 pg [facility] - 01 MCHC 34.1 31.5 - 35.7 g/dL [facility] - 01 Rdw 12.5 11.6 - 15.4 % [facility] - 01 Platelets 215 150 - 450 x10E3/uL [facility] - 01 Neutrophils pct 62 Not Estab. % [facility] - 01 Lymphs pct 29 Not Estab. % [facility] - 01 Monocytes pct 7 Not Estab. % [facility] - 01 Eosinophils pct 1 Not Estab. % [facility] - 01 Basophil pct 1 Not Estab. % [facility] - 01 Neutrophil abs 3.7 1.4 - 7.0 x10E3/uL [facility] - 01 Lymphs (Absolute) 1.7 0.7 - 3.1 x10E3/uL [facility] - 01 Monocyte abs 0.4 0.1 - 0.9 x10E3/uL [facility] - 01 Eosinophils, abs 0.1 0.0 - 0.4 x10E3/uL [facility] - 01 Basophils, abs 0.0 0.0 - 0.2 x10E3/uL [facility] - 01 Immature Granulocytes 0 Not Estab. % [facility] - 01 Immature Grans (Abs) 0.0 0.0 - 0.1 x10E3/uL [facility] - 01 Blood specimen (specimen) 02/23/2020 2:22 PM PIE CRUST MIXER 02/23/2020 Narrative [facility] - 02/24/2020 8:15 AM PIE CRUST MIXER Performed at: ?? - [facility] [address] ??[id number] Staffing Branch Manager: Flex Rivera PhD, Phone: ??[phone] us Jose Mo MD LAB BLOOD ORDERABLES Final Re sult [facility] - * POCT glucose (02/23/2020 2:05 PM PIE CRUST MIXER) Glucose Blood, POC 98 mg/dL Blood specimen (specimen) 02/23/2020 2:05 PM PIE CRUST MIXER Jose Mo MD POINT OF CARE TEST ORDERABLES Final Result documented in this encounter Visit Diagnoses Diagnosis Screening for lipid disorders- Primary Quadriparesis (HCC) Unspecified quadriplegia Seizures (HCC) Other convulsions Recurrent UTI Urinary tract infection, site not specified Gastroesophageal reflux disease without esophagitis Esophageal reflux Routine general medical examination at a health care facility documented in this encounter Discontinued Medications Medication Sig Discontinue Reason Start Date End Da te carBAMazepine XR (TEGretol XR) 400 mg 12 hr tablet Take 2 tablets (800 mg total) by mouth nightly Duplicate order 06/18/2018 02/23/[address] (NexIUM) 40 mg capsuleIndications:Muco sitis Prophylaxis Take 1 capsule (40 mg total) by mouth daily before breakfast for 14 days Duplicate order 07/30/2018 02/23/2020 MONUROL 3 gram packet Take 3 g by mouth every 2 (two) weeks Duplicate order 01/04/2019 02/23/2020 HYDROcodone-acetaminoph en (NORCO) 5-325 mg per tabletIndications:Pain Take 1 tablet by mouth every 4 (four) hours as needed for pain Duplicate order 07/30/2018 02/23/2020 methocarbamol (ROBAXIN) 750 mg tablet Take 1 tablet (750 mg total) by mouth 3 (three) times a day Duplicate order 07/21/2018 02/23/2020 documented as of this encounter Historical Medications * This list may reflect changes made after this encounter. esomeprazole DR (NexIUM) 40 mg capsuleIndicatio ns:Treatment of Non-Bleeding Gastric Disorder Take 1 capsule (40 mg total) by mouth daily before breakfast 04/27/2019 added in this encounter Care Teams Gas Torch Brazier Relationship Specialty Start Date End Date Jose Mo MD [address] [facility] [address] [id number] PCP - General 08/22/18 Jose Mo MD [address] [facility] [address] [address] 08/22/18 documented as of this encounter
--- OUTSIDE RECORDS SUMMARY | 2024-03-26 21:38 | XMS_ITS | Encounter Summary ---
Author Organization [facility] Address [address] [place] [address] Phone Care Team Providers Care Professor Of Engineering Name Role Phone Jose Mo MD Primary Care Provider Reason for Referral * Diagnostic Imaging (Routine) - Closed Specialty Diagnoses / Procedures Referred By Contac t Referred To Contact Diagnoses Displaced transverse fracture of shaft of right fibula, initial encounter for closed fracture Procedures XR Tibia Fibula Right 2 Views Flash Magaña MD Phone: tel: fax: [facility] Referral ID Status Reason Start Date Expiration Date Visits Re quested Visits Authorized [id number] Closed 07/27/2018 02/05/2020 1 1 Reason for Visit * Reason Comments Fracture Encounter Details Date Type Department Care Team (Late st Contact Info) Description 07/27/2018 1:40 PM CDT Office Visit [facility] [address] [facility] 6[address] [place] [address] [place] [address] Flash Magaña MD [address] [facility] [address] [place] [address] Displaced transverse fracture of shaft of right fibula, initial encounter for closed fracture (Primary Dx) Social History Tobacco Use Types Packs/Day Years Used Date Smoking Tobacco: Every Day Cigarettes Smokeless Tobacco: Never Sex and Gender Information Value Date Recorded Sex Assigned at Not on file Legal Sex Male 6:24 PM PROFILE STITCHING MACHINE OPERATOR Gender Identity Male 04/18/2020 9:24 AM PROFILE STITCHING MACHINE OPERATOR Sexual Orientation Straight 04/18/2020 9: 24 AM PROFILE STITCHING MACHINE OPERATOR documented as of this encounter Progress Notes * Flash Magaña MD - 07/27/2018 1:40 PM CDT Status post operative fixation is right segmental tibia fracture performed 12 June 2018. Subjective: Patient's postoperative course has been complicated by wound dehiscence and infection of 1 of the percutaneous incisions. Most recently he has been placed on Keflex and he is treating his wound with packing. Patient is reports that cellulitis around the wound has been worsening over the weekend come in today for evaluation. Pain is feeling okay. Objective: Patient is healthy-appearing and well-groomed, in no apparent distress. Patient is oriented to time, place, and person. Incision all incisions besides the mid calf percutaneous stab incision are healing. There is surrounding erythema over the percutaneous medial incision. There is no kimberly purulence drainage. Range of motion: diminished range with pain. Leg warm and well-perfused, capillary refill <2 seconds. Neurovascular exam at baseline Imaging: Right proximal tibia fracture healing well in proper alignment. No sign of hardware loosening or breakage. Assessment: Mr. Jain is a 48 y.o. male who sustained a right side proximal tibia fracture status post operative fixation with combined nail plate construct bearing postoperative wound infection. Given these findings the fact that it is worsening recommend bring him to the hospital for irrigation debridementwound management as well as intravenous antibiotics. In order to send him to the emergency room is no beds were available for direct admission. We will start him on broad-spectrum antibiotics and plan to perform an I and D tomorrow morning. Okay for weight-bearing as tolerated documented in this encounter Plan of Treatment Not on file documented as of this encounter Results * XR Tibia Fibula Right 2 Views (07/27/2018 2:02 PM CDT) Anatomical Region Laterality Modality Lower Extremities, Lower Leg Right Com puted Radiography 07/27/2018 2:04 PM CDT Impressions 07/27/2018 2:04 PM CDT 1. ??Healing reduced, internally fixated, an intramedullary nailed right proximal tibial shaft fracture with near-anatomic alignment. 2. ??Healing nondisplaced fracture of the right proximal fibular shaft. 3. ??Small ossific density adjacent to the lateral malleolus with some overlying soft tissue swelling, could represent a nondisplaced avulsion fracture. Electronically signed by: Nicola Faustin M.D. Narrative 07/27/2018 2:04 PM CDT EXAMINATION: Right tibia and fibula minimum 2 views HISTORY: Right tibia and fibular fracture FINDINGS: 2 exposures of the right tibia and fibula were obtained and compared to prior exam from 06/12/2018. ??There is a healing reduced, internally fixated, and intramedullary nailed right proximal tibial shaft fracture with near-anatomic alignment of the fracture fragments. ??There is a healing nondisplaced fracture of the right proximal fibular shaft. ??Joint spaces appear normal. ??There is a small ossific density adjacent to the lateral malleolus with some overlying soft tissue swelling. Procedure Note Nicola Faustin MD - 07/27/2018 EXAMINATION: Right tibia and fibula minimum 2 views HISTORY: Right tibia and fibular fracture FINDINGS: 2 exposures of the right tibia and fibula were obtained and compared to prior exam from 06/12/2018. There is a healing reduced, internally fixated, and intramedullary nailed right proximal tibial shaft fracture with near-anatomic alignment of the fracture fragments. There is a healing nondisplaced fracture of the right proximal fibular shaft. Joint spaces appear normal. There is a small ossific density adjacent to the lateral malleolus with some overlying soft tissue swelling. IMPRESSION: 1. Healing reduced, internally fixated, an intramedullary nailed right proximal tibial shaft fracture with near-anatomic alignment. 2. Healing nondisplaced fracture of the right proximal fibular shaft. 3. Small ossific density adjacent to the lateral malleolus with some overlying soft tissue swelling, could represent a nondisplaced avulsion fracture. Electronically signed by: Nicola Faustin M.D. Flash Magaña MD IMG XR PROCEDURES Final Result documented in this encounter Visit Diagnoses Diagnosis Displaced transverse fracture of shaft of right fibula, initial encounter for closed fracture- Primary Displaced transverse fracture of shaft of right fibula, initial encounter for closed fracture documented in this encounter Historical Medications * This list may reflect changes made after this encounter. mupirocin (BACTROBAN) 2 % ointment APPLY TO WOUND D AND PRN 0 07/20/2018 07/30/2018 cephalexin (KEFLEX) 500 mg capsule TK 1 C PO Q 6 HOURS 0 07/25/2018 07/28/2018 added in this encounter Care Teams Professor Of Engineering Relationship Specialty Start Date End Date Jose Mo MD [address] [address] PCP - General 06/02/17 08/21/18 documented as of this encounter
--- OUTSIDE RECORDS SUMMARY | 2024-03-26 21:38 | XMS_ITS | Encounter Summary ---
Author Organization [facility] Address [address] [facility] [address] [place] [address] Phone Care Team Providers Care Pump Attendant Name Role Phone Jose Mo MD Primary Care Provider [phone] Reason for Visit * Reason Onset Date Comments Medication Request 07/21/2018 Encounter Details Date Type Department Care Team (Late st Contact Info) Description 07/21/2018 Telephone [facility] Infectious Diseases [address] [place] [id number] Neema Hernandez [facility] Medication Request Social History Tobacco Use Types Packs/Day Years Used Date Smoking Tobacco: Every Day Cigarettes Smokeless Tobacco: Never Sex and Gender Information Value Date Recorded Sex Assigned at Not on file Legal Sex Male 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 documented in this encounter Plan of Treatment Not on file documented as of this encounter Visit Diagnoses Not on filedocumented in this encounter Care Teams Pump Attendant Relationship Specialty Start Date End Date Jose Mo MD [address] [address] PCP - General 06/02/17 08/21/18 documented as of this encounter
--- OUTSIDE RECORDS SUMMARY | 2024-03-26 21:38 | XMS_ITS | Encounter Summary ---
Author Organization [facility] Address [address] [place] [address] Care Team Providers Care Lab Nurse Name Role Phone Jose Mo MD Primary Care Provider [phone] Reason for Referral * Diagnostic Imaging (Routine) - Closed Specialty Diagnoses / Procedures Referred By Contac t Referred To Contact Diagnoses Displaced transverse fracture of shaft of right fibula, initial encounter for closed fracture Procedures XR Tibia Fibula Right 2 Views Flash Magaña MD Phone: tel: fax: [facility] Referral ID Status Reason Start Date Expiration Date Visits Re quested Visits Authorized [id number] Closed 07/27/2018 02/05/2020 1 1 Reason for Visit * Diagnostic Imaging (Routine) - Closed Specialty Diagnoses / Procedures Referred By Contac t Referred To Contact Diagnoses Displaced transverse fracture of shaft of right fibula, initial encounter for closed fracture Procedures XR Tibia Fibula Right 2 Views Flash Magaña MD Phone: tel: fax: [facility] Referral ID Status Reason Start Date Expiration Date Visits Re quested Visits Authorized [id number] Closed 07/27/2018 02/05/2020 1 1 Encounter Details Date Type Department Care Team (Late st Contact Info) Description 07/27/2018 1:47 PM CDT - 07/27/2018 9:03 PM CDT Hospital Encounter [facility] [address] [place] [address] Flash Magaña MD [address] [facility] [address] [place] [address] Displaced transverse fracture of shaft of right fibula, initial encounter for closed fracture Discharge Disposition: Discharge to home or self care Social History Tobacco Use Types Packs/Day Years Used Date Smoking Tobacco: Every Day Cigarettes Smokeless Tobacco: Never Sex and Gender Information Value Date Recorded Sex Assigned at Not on file 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[employer] Gender Identity Male 04/18/2020 9:24 AM [employer] Sexual Orientation Straight 04/18/2020 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 [employer] documented as of this encounter Medications at [...] as needed for heartburn 9 06/18/19 20 doxycycline (VIBRAMYCIN) 100 mg capsule Take 1 tablet/capsule (100 mg total) by mouth 2 (two) times a day for 14 days 28 tablet/capsule 9 08/14/19 19 fosfomycin (MONUROL) 3 gram packetIndication s:Urinary Tract/Genitourin mukund Infection Take 3 g by mouth every 2 (two) weeks 6 g 3 9 08/21/19 19 levoFLOXacin (LEVAQUIN) 750 mg tablet Take 1 tablet (750 mg total) by mouth daily for 14 days 14 tablet 9 08/14/19 19 psyllium, aspartame, SF (METAMUCIL SF) 3.4 gram packet Take 1 packet by mouth daily 30 packet 11 9 06/19/19 20 acetaminophen-co deine (TYLENOL with CODEINE #3) 300-30 mg per tablet Take 1 tablet by mouth every 6 (six) hours as needed for pain 40 tablet 9 07/29/19 19 aspirin 325 mg enteric coated tablet Take 1 tablet (325 mg total) by mouth 2 (two) times a day for 14 days For blood clot prevention. Take with food. 28 tablet 9 07/31/19 19 aspirin 325 mg enteric coated tablet Take 1 tablet (325 mg total) by mouth 2 (two) times a day for 14 days For blood clot prevention. Take with food. 28 tablet 9 05/25/19 22 carBAMazepine XR (TEGretol XR) 400 mg 12 hr tablet Take 2 tablets (800 mg total) by mouth nightly 60 tablet 9 02/23/20 20 cephalexin (KEFLEX) 500 mg capsule TK 1 C PO Q 6 HOURS 0 9 07/29/19 19 cyclobenzaprine (FLEXERIL) 10 mg tablet Take 1 tablet (10 mg total) by mouth 3 (three) times a day as needed for muscle spasms 30 tablet 9 08/29/[address] (NexIUM) 40 mg capsuleIndicatio ns:Mucositis Prophylaxis Take 1 capsule (40 mg total) by mouth daily before breakfast 0 9 07/31/[address] (NexIUM) 40 mg capsuleIndicatio ns:Mucositis Prophylaxis Take 1 capsule (40 mg total) by mouth daily before breakfast for 14 days 14 capsule 9 02/23/20 20 gabapentin (NEURONTIN) 300 mg capsule Take 1 capsule (300 mg total) by mouth 3 (three) times a day 90 capsule 11 9 07/29/19 19 HYDROcodone-acet aminophen (NORCO) 5-325 mg per tabletIndication s:Pain Take 1 tablet by mouth every 6 (six) hours as needed for pain 30 tablet 9 07/31/19 19 HYDROcodone-acet aminophen (NORCO) 5-325 mg per tabletIndication [...] a day 30 tablet 9 02/23/20 20 mupirocin (BACTROBAN) 2 % ointment APPLY TO WOUND D AND PRN 0 9 07/31/19 19 senna-docusate (PERICOLACE) 8.6-50 mgIndications:co nstipation Take 2 tablets by mouth 2 (two) times a day as needed for constipation 9 07/31/19 19 documented as of this encounter Discharge Disposition Disposition Code Departure Means Destination Discharge to home or self care documented in this encounter Plan of Treatment Not on file documented as of this encounter Procedures Procedure Name Priority Date/Time Associated Diagnosis Comments XR TIBIA FIBULA RIGHT2 VIEWS Schedule Routine, Read Routine (OP Routine) 07/27/2018 2:02 PM CDT Displaced transverse fracture of shaft of right fibula, initial encounter for closed fracture documented in this encounter Results * XR [...] fracture. Electronically signed by: Nicola Faustin M.D. [facility] 07/27/2018 2:04 PM CDT EXAMINATION: Right tibia [...] for closed fracture documented in this encounter Care Teams Lab Nurse Relationship Specialty Start Date End Date Jose Mo MD [address] [facility] [address] [place] [address] PCP - General 06/02/17 08/21/18 documented as of this encounter
--- OUTSIDE RECORDS SUMMARY | 2024-03-26 21:38 | XMS_ITS | Encounter Summary ---
Author Organization [facility] Address [address] [facility] [address] [place] [address] Phone Care Team Providers Care Animal Behaviorist Name Role Phone Jose Mo MD Primary Care Provider [phone] Encounter Details Date Type Department Care Team (Late st Contact Info) Description 07/21/2018 Orders Only [facility] Infectious Diseases [address] [place] [phone] Sintia Gilbert Social History Tobacco Use Types Packs/Day Years Used Date Smoking Tobacco: Every Day Cigarettes Smokeless Tobacco: Never Sex and Gender Information Value Date Recorded Sex Assigned at Not on file 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 Sexual Orientation Straight 04/18/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 documented as of this encounter Ordered Prescriptions Prescription Sig Dispense Quantity Refills Last Filled Start Date End Date fosfomycin (MONUROL) 3 gram packetIndications:U rinary Tract/Genitourinary Infection Take 3 g by mouth every 2 (two) weeks 6 g 3 07/21/2018 08/20/2018 documented in this encounter Plan of Treatment Not on file documented as of this encounter Visit Diagnoses Not on filedocumented in this encounter Discontinued Medications Medication Sig Discontinue Reason Start Date End Da te fosfomycin (MONUROL) 3 gram packetIndications:Urinary Tract/Genitourinary Infection Take 3 g by mouth every 2 (two) weeks Reorder 06/28/2018 07/21/2018 documented as of this encounter Care Teams Animal Behaviorist Relationship Specialty Start Date End Date Jose Mo MD [address] [facility] [address] [place] [address] PCP - General 06/02/17 08/21/18 documented as of this encounter
--- OUTSIDE RECORDS SUMMARY | 2024-03-26 21:38 | XMS_ITS | Encounter Summary ---
Author Organization [facility] Healthcare Address [address] [place] [address] Care Team Providers Care [place] Name Role Phone Jose Mo MD Primary Care Provider [phone] Encounter Details Date Type Department Care Team (Late st Contact Info) Description 06/11/2018 2:28 PM SOLAR LAB TECHNICIAN - 06/18/2018 4:51 PM CDT Hospital Encounter [facility] [address] [place] [address] Flash Magaña MD [address] [facility] [address] [place] [address] Closed displaced oblique fracture of shaft of right tibia, initial encounter (Primary Dx) Discharge Disposition: Discharge to an Rehab facility Social History Tobacco Use Types Packs/Day Years Used Date Smoking Tobacco: Every Day Cigarettes Smokeless Tobacco: Never Sex and Gender Information Value Date Recorded Sex Assigned at Not on file Legal Sex Male 6:24 PM SOLAR LAB TECHNICIAN Gender Identity Male 04/18/2020 9:24 AM SOLAR LAB TECHNICIAN Sexual Orientation Straight 04/18/2020 9: 24 AM SOLAR LAB TECHNICIAN documented as of this encounter Last Filed Vital Signs Vital Sign Reading Time Taken Comments Blood Pressure 148/80 06/18/2018 3:27 PM CDT Pulse 88 06/18/2018 3:27 PM CDT Temperature 37 ??C (98.6 ??F) 06/18/2018 3:27 PM CDT Respiratory Rate 18 06/18/2018 3:27 PM CDT Oxygen Saturation 97% 06/18/2018 3:27 PM CDT Inhaled Oxygen Concentration - - Weight 108.9 kg (240 lb) 06/11/2018 2:30 PM SOLAR LAB TECHNICIAN Height 172.7 cm (5' 8 ) 06/11/2018 2:30 PM SOLAR LAB TECHNICIAN Body Mass Index 36.49 06/11/2018 2:30 PM SOLAR LAB TECHNICIAN documented in this encounter Discharge Summaries * Felicia Josue, DIRECTOR OF VOLUNTEER SERVICES - 06/18/2018 1:29 PM CDT Inpatient Discharge Summary Admitting Provider: Flash Magaña MD Discharge Provider: Flash Irby* Primary Care Physician at Discharge: Jose Mo MD [phone] Primary Discharge Diagnosis: Closed displaced oblique fracture of shaft of right tibia Secondary Discharge Diagnosis: Closed displaced oblique fracture of shaft of right tibia Recurrent UTI Displaced transverse fracture of shaft of right fibula, initial encounter for closed fracture * No resolved hospital problems. * DETAILS OF HOSPITAL STAY Date of Admission: 06/11/2018 Date of Discharge: 06/18/2018 Procedure Performed: IMN R tibia, ORIF R tibia fxs Chief Complaint: RLE pain/deformity History of Present Illness: The patient is a 48 y.o. year old male cared for by Dr. Flash Magaña s/p fall, sustaining a right proximal tib/fib fxs. Physical Exam: On the day of discharge, the patient was afebrile with stable vital signs. Examination of the rightlower extremity revealed the patient was neurovascularly intact at his baseline. Splint was clean, dry and intact. Hospital Course: The patient was seen at OSH and transferred to [facility] for level of care and admitted to the ortho service. The risks, benefits, alternatives and complications of the procedure were discussed with the patient at length prior to surgery. The patient elected to proceed with a surgical intervention given t he significant influence on their quality of life. Informed consent was obtained prior to surgery. They underwent IMN/ORIF. The patient tolerated the procedure well and was taken in stable condition to the postoperative recovery room then transferred to the orthopedic floor in stable condition. Thepatient received three doses of IV antibiotics postop.The patient progressed well and was able to be weaned off IV opiates. He was treated for UTI with a course of ceftriaxone. He has a h/o recurrentUTIs and is followed in our ID clinic. Culture was sensitive to ceftriaxone. The patient participated with therapy and was recommended for transfer to a Rehabilitation Facilityfor more therapy. he was maintained on lovenox for deep venous thrombosis prophylaxis. Pain was adequately maintained on oral pain medications and the patient was voiding without difficulty prior to discharge. The patient was discharged in stable condition. Discharge Medications: Angus Jain Home Medication Instructions CAMRON:[id number] Printed on:06/18/18 8187 Medication Information ascorbic acid (VITAMIN C) 1,000 mg tablet Take 4 tablets (4,000 mg total) by mouth daily aspirin 325 mg enteric coated tablet Take 1 tablet (325 mg total) by mouth 2 (two) times a day for 14 days For blood clot prevention. Take with food. bisacodyl (DULCOLAX) 10 mg suppository Insert 1 suppository (10 mg total) into the rectum daily as needed for constipation (2nd line) calcium carbonate (TUMS) 500 mg calcium (200 mg of elemental calcium) chewable tablet Take 2 tablets (1,000 mg total) by mouth 2 (two) times a day as needed for heartburn carBAMazepine XR (TEGretol XR) 400 mg 12 hr tablet Take 2 tablets (800 mg total) by mouth nightly cyclobenzaprine (FLEXERIL) 10 mg tablet Take 1 tablet (10 mg total) by mouth 3 (three) times a day as needed for muscle spasms diphenhydrAMINE (BENADRYL) 25 mg capsule Take 1 tablet/capsule (25 mg total) by mouth every 6 (six) hours as needed for itching esomeprazole DR (NexIUM) 40 mg capsule Take 1 capsule (40 mg total) by mouth daily before breakfast fosfomycin (MONUROL) 3 gram packet Take 3 g by mouth every 2 (two) weeks gabapentin (NEURONTIN) 300 mg capsule Take 1 capsule (300 mg total) by mouth 3 (three) times a day HYDROcodone-acetaminophen (NORCO) 5-325 mg per tablet Take 2 tablets by mouth every 4 (four) hours as needed for pain hydrocortisone 2.5 % cream Apply topically daily as needed for rash methocarbamol (ROBAXIN) 750 mg tablet Take 1 tablet (750 mg total) by mouth 3 (three) times a day psyllium, aspartame, SF (METAMUCIL SF) 3.4 gram packet Take 1 packet by mouth daily senna-docusate (PERICOLACE) 8.6-50 mg Take 2 tablets by mouth 2 (two) times a day as needed for constipation Discharge Activity: 1. Weight bearing:Non weight-bearing right lower extremity 2. Out of bed to chair at least three times a day 3. DVT prophylaxis: Aspirin twice daily for 2 weeks and nexium once daily for stomach protection while on aspirin 4. Put ice on and elevate the injured body part PT/OT eval and treat Keep splint clean and dry and do not remove. It will be taken down at your follow up appointment. Fall precautions Discharge Diet: Resume previous diet Follow-up: Dr. Flash aMgaña on 07/06 at 9a at [facility]: [facility] ([facility]), [address] [place] [address], 6[address], [place] [address]. Condition on Discharge: Stable Cosigned by Flash Magaña MD at 06/18/2018 9:48 PM CDT documented in this encounter Discharge Instructions * Discharge Instructions* Felicia Josue NP - 06/18/2018 1:39 PM CDT Images from the original note were not included. Please do not take any NSAIDs (motrin, ibuprofen, aleve, etc) as this can cause a delay in bone healing. If you do not want to take norco, you may take tylenol for pain, but do not take with norco asnorco contains tylenol. Do not take more than 4 grams of tylenol in a 24 hour period from any source. MD Orlando Lopez MD Marschall B. Berkes, MD Department of Orthopaedic Surgery ([facility]) MOST COMMONLY ASKED QUESTIONS & ANSWERS FOR ORTHOPAEDIC TRAUMA PATIENTS Question: Do the metal implants used to fix my broken bones have to come out in the future? Answer: In general, no. The implants are used to hold the broken bone together while the body healsthe fracture. Metal implants are usually left in unless there is pain or a problem (like infection). However, there are some exceptions; Dr. Palacios, Dr. Pnatoja and Dr. Magaña will let you know if implant removal is recommended in your particular case. Question: Will my metal implants set off metal detectors? Answer: Possibly; if so, don???t be alarmed. TSA personnel will likely ???wand?? you. We recommendyou inform TSA personnel of implanted orthopaedic hardware and show them your scar if needed. ID cards that indicate you have implanted hardware will not change this process since there is no possible way for the TSA to know if such a card is real or not. Remember, this process is for the safety ofall travelers. Question: How do I get a temporary handicap parking placard? Answer: Your condition must meet State eligibility requirements for a handicap parking placard. Applications are available for download from the [place] and [place] DMV websites or from your milk tanker driver???s license facility. Also, our medical assistants can provide the forms upon request. Check your hospital discharge paperwork for this form before you call Aliya Abarca Stephanie or Mireya. We recommend you call your DMV or visit their website before filing your application and find out what documentation you need to bring with you in order to be issued a temporary handicap placard. Our staff will be happy to complete the medical portion of the form, if you meet the eligibility requirements. Question: Will my swelling ever go away? Answer: Swelling is very often one of the last things to resolve after a fracture or injury. Although swelling usually improves slowly over time, it is not uncommon for swelling to persist 6 months or longer after injury. Depending on the location and severity of your injury, some degree of swelling may be permanent. Question: Where do I go for outpatient physical therapy? Answer: If physical therapy was prescribed you are free to choose any outpatient therapy location you wish. The physical therapy prescription can be used anywhere, similar to how a drug prescription can be brought to any pharmacist. We recommend you call your insurance company first to see how manyvisits are covered and get a list of ???in network?? therapists who are close to your home. Question: What is the difference between a fractured and broken bone? Answer: There is no difference, these mean the same thing. Question: When can I drive? Answer: The ability to return to driving after orthopedic surgery is dependent on several factors including the type of surgery performed, the type of car you drive (manual vs. automatic), the limb involved (leg vs. arm), the side involved (left vs. right) and also your weight bearing status. Your doctor/PA CANNOT ???clear?? or ???release?? you to drive. He or she can recommend that driving is unsafe, but cannot make a legal determination of when it is safe to drive. The decision to return to drive is ultimately your responsibility. However, you must never drive if you are taking narcotic pain medication or other medications that cause drowsiness. Laws vary state by state; but in [place] and [place] there are no laws prohibiting driving after orthopedic surgery. If you are involved in a car accident, law enforcement will determine your ability to drive on a case by case basis. Please check your own state laws if driving outside of [place] or [place]. Some insurance companies may have policies restricting driving after surgery. Please check with your insurance carrier to determine if any such restrictions exist. Question: When can I go back to work? Answer: Our ultimate goal is for you to return to the level of function and work you had prior to your injury. Depending upon your injury severity and your type of work, this may or may not be possible. If you feel you are able, and you wish to return to work, let us know at your follow up appointment and we will likely write you a note. We also can write you a note to be excused for work due to i njury if that is appropriate and necessary. Question: I am currently staying at a rehabilitation or nursing facility, when can I go home? Answer: You are free to go home any time you wish. However, the facility staff should help you determine if your condition has improved enough and / or there are sufficient resources available at home for you to safely return home. Question: Should I use a walker or crutches? Answer: Walkers and crutches can be used interchangeably. You may use whichever you feel more comfortable with. Question: What hand should I use my cane in? Answer: Use the cane on the opposite side from your injury. Question: When and how do I get pain medication refills? Answer: When you are discharged from the hospital you will be sent home with a certain number of pain pills or a prescription for them. These pain pills will need to last you until your follow up appointment and no refills will be given to you before this time. You will not get early refills if youtake all of your medicine too fast. Your pain should improve daily and you should be able to take less pain pills on a daily basis. The surgeons generally expect you to be weaned off all narcotics by4 weeks after your surgery (or after your injury if you did not have surgery). Be sure you have allprescriptions refilled prior to leaving the office. Based on Federal Regulations, narcotics cannot be called into a pharmacy anymore. If you find a need for medication refills between visits, call Aliya Abarca Stephanie or Mireya at [phone] between 8:00 am and 4:00 pm, Friday - Friday. Medication refills are not considered emergent and will not be available evenings or weekends through the emergency line. Do not have pain pills filled from multiple doctors. If this occurs, our office will not provide any narcotics to you in thefuture. Narcotic pain medication can be very addictive and you should come off of them as soon as possible. Question: What happens if I don???t listen and walk on my leg or use my arm before I am supposed to? Answer: If your instructions are that you should be non-weightbearing (NWB), this means you cannot put any weight on your injured body part. There is a reason for this. If you put weight on this or use it too soon, the fixation or the fracture could worsen and you could need surgery to correct it. The hardware you have in your leg or arm is strong enough to hold your bones together while your body heals the fracture; but it isn???t strong enough to support anyone???s weight. This is VERY important. Your provider will let you walk on it or use it as soon as it is okay for you to do so. Dr. Tavia Palacios, Dr. Orlando Pantoja, Dr. Flash Magaña, and staff hope that these questions & answers will help you in your recovery. If you have any additional questions, please give our office a call at [phone]. Dr. Palacios, Dr. Pantoja and Dr. Magaña have four medical assistants. The medical assistants can bereached at [phone]. Please understand that they are in clinic on certain days and will return your phone call, as soon as possible. If you have specific questions about the scheduling of a future orthopaedic surgery to be performedby Dr. Palacios, Dr. Pantoja or Dr. Magaña, please call Tiki Lopez MA at [phone]. documented in this encounter Medications at Time [...] with food. 28 tablet 9 07/31/19 19 carBAMazepine XR (TEGretol XR) 400 mg 12 hr tablet Take 2 tablets (800 mg total) by mouth nightly 60 tablet 11 9 02/23/20 20 cyclobenzaprine (FLEXERIL) 10 mg tablet Take 1 tablet (10 mg total) by mouth 3 (three) times a day as needed for muscle spasms 9 07/22/[address] (NexIUM) 40 mg capsuleIndicatio ns:Mucositis Prophylaxis Take 1 capsule (40 mg total) by mouth daily before breakfast 0 9 07/31/19 19 fosfomycin (MONUROL) 3 gram packetIndication s:Urinary Tract/Genitourin mukund Infection Take 3 g by mouth every 2 (two) weeks 9 07/22/19 19 gabapentin (NEURONTIN) 300 mg capsule Take 1 capsule (300 mg total) by mouth 3 (three) times a day 90 capsule 11 9 07/29/19 19 HYDROcodone-acet aminophen (NORCO) 5-325 mg per tabletIndication s:Pain Take 2 tablets by mouth every 4 (four) hours as needed for pain 90 tablet 9 07/07/19 19 hydrocortisone 2.5 % cream Apply topically daily as needed for rash 30 g 9 04/24/19 22 methocarbamol (ROBAXIN) 750 mg tablet Take 1 tablet (750 mg total) by mouth 3 (three) times a day 9 07/22/19 19 senna-docusate (PERICOLACE) 8.6-50 mgIndications:co nstipation Take 2 tablets by mouth 2 (two) times a day as needed for constipation 9 07/31/19 19 documented as of this encounter Ordered Prescriptions Prescription Sig Dispense Quantity Refills Last Filled Start Date End Date diphenhydrAMINE (BENADRYL) 25 mg capsuleIndication s:Urticaria Take 1 tablet/capsule (25 mg total) by mouth every 6 (six) hours as needed for itching 30 capsule 9 bisacodyl (DULCOLAX) 10 mg suppositoryIndica tions:constipatio n Insert 1 suppository (10 mg total) into the rectum daily as needed for constipation (2nd line) 12 suppository 9 ascorbic acid (VITAMIN C) 1,000 mg tablet Take 4 tablets (4,000 mg total) by mouth daily 9 aspirin 325 mg enteric coated tablet Take 1 tablet (325 mg total) by mouth 2 (two) times a day for 14 days For blood clot prevention. Take with food. 28 tablet 9 07/31/[address] (NexIUM) 40 mg capsuleIndication s:Mucositis Prophylaxis Take 1 capsule (40 mg total) by mouth daily before breakfast 0 9 07/31/19 19 senna-docusate (PERICOLACE) 8.6-50 mgIndications:con stipation Take 2 tablets by mouth 2 (two) times a day as needed for constipation 9 07/31/19 19 psyllium, aspartame, SF (METAMUCIL SF) 3.4 gram packet Take 1 packet by mouth daily 30 packet 11 9 06/19/19 20 methocarbamol (ROBAXIN) 750 mg tablet Take 1 tablet (750 mg total) by mouth 3 (three) times a day 9 07/22/19 19 hydrocortisone 2.5 % cream Apply topically daily as needed for rash 30 g 9 04/24/19 22 gabapentin (NEURONTIN) 300 mg capsule Take 1 capsule (300 mg total) by mouth 3 (three) times a day 90 capsule 11 9 07/29/19 19 cyclobenzaprine (FLEXERIL) 10 mg tablet Take 1 tablet (10 mg total) by mouth 3 (three) times a day as needed for muscle spasms 9 07/22/19 19 calcium carbonate (TUMS) 500 mg calcium (200 mg of elemental calcium) chewable tablet Take 2 tablets (1,000 mg total) by mouth 2 (two) times a day as needed for heartburn 9 06/18/19 20 fosfomycin (MONUROL) 3 gram packetIndications :Urinary Tract/Genitourina ry Infection Take 3 g by mouth every 2 (two) weeks 9 07/22/19 19 carBAMazepine XR (TEGretol XR) 400 mg 12 hr tablet Take 2 tablets (800 mg total) by mouth nightly 60 tablet 11 9 02/23/20 20 HYDROcodone-aceta minophen (NORCO) 5-325 mg per tabletIndications :Pain Take 2 tablets by mouth every 4 (four) hours as needed for pain 90 tablet 9 07/07/19 19 documented in this encounter Discharge Disposition Disposition Code Departure Means Destination Discharge to an Rehab facility documented in this encounter Progress Notes * Estephania Mak, OPTO MECHANICAL ENGINEER - 06/18/2018 2:04 PM CDT 06/18/18 1401 Discharge Summary Chart reviewed For Medical Necessity Does patient have a planned readmission to hospital planned? No Discharge Disposition Inpatient (Acute) Rehab Hospital Specify Facility [facility] 2nd Floor Facility Contact Number [phone] Discharge Records Transfer Form Completed;Chart Copied Equipment/Provider Needs No Home Needs Identified Discharge Additional Assistance Does the patient need discharge transport arranged? Yes Has discharge transport been arranged? Yes Details of Transportation [facility] [phone] What day is the transport expected? 06/18/18 What time is the transport expected? 1403 Discharge Transportation Communication Mode of transport has been discussed with the patient/family. All are agreeable to the plan and understand their responsibilities to ensure the safe transfer. No further CM/SW intervention is anticipated at this time. Post Discharge Care Provider Post Discharge Care Plan DC Summary has been faxed to next level of care provider (see Follow Up Providers) Certificate of Medical necessity completed due to right tibia/right fibula fracture, h/o quadriparesis, max assist with transfer, and a fall risk. No further SW needs at this time. Patient/family informed that while medical team will do everything possible for Medicare to pay forthe ambulance there is a chance that Medicare will not pay, as Medicare's criteria for ambulances are often stricter than the medical team. Social work informed patient/family that even if Medicare does pay, it may not cover the full cost of the trip as Medicare is now only covering the cost to nearest available facility. Social work informed patient/family that they will be responsible for the remainder of the bill. Patient/family voiced understanding. Patient and spouse agreed to d/c plan. Patient accepted placement Facility accepted placement Patient is medically stable, chart copied, insurance approved (auth obtained by facility), Facilitywilling to take patient, Transfer paperwork completed Patient agrees with placement, DPOA agrees with placement, Designated decision- maker agrees with placement Date and time of transportation: March 14th, 2019 * Cullen Mack MD - 06/18/2018 8:57 AM CDT Ortho Trauma Daily Progress Subjective POD6 s/p IMN R proximal 1/3 tib/fib fx AFVSS, NAEO. No nausea/vomiting, no fevers/chills/sweats. Not lightheaded or dizzy. PT rec inpatient rehab, placement pending. Current Facility-Administered Medications Medication Dose Route Frequency Last Rate Last Dose ??? ascorbic acid (VITAMIN C) tablet/chewable tablet 4,000 mg 4,000 mg oral Daily 4,000 mg at 06/17/18 0831 ??? bisacodyl (DULCOLAX) suppository 10 mg 10 mg rectal Daily PRN ??? calcium carbonate (TUMS) chewable tablet 1,000 mg 400 mg of elemental calcium oral BID PRN 1,000 mg at 06/14/18 1312 ??? carBAMazepine XR (TEGretol XR) extended release tablet 800 mg 800 mg oral Nightly 800 mg at 06/17/182112 ??? cyclobenzaprine (FLEXERIL) tablet 10 mg 10 mg oral TID PRN 10 mg at 06/17/182119 ??? diphenhydrAMINE (BENADRYL) tab/cap 25 mg 25 mg oral Q6H PRN 25 mg at 06/17/18 1837 ??? enoxaparin (LOVENOX) syringe 40 mg 40 mg subcutaneous Daily-2100 40 mg at 06/17/182112 ??? ESOMEPRAZOLE 40MG DR (PATIENT'S OWN SUPPLY) 40 mg oral Before breakfast 40 mg at 06/17/18 0751 ??? fosfomycin (MONUROL) packet 3 g 3 g oral every 2 weeks 3 g at 06/14/18 0029 ??? gabapentin (NEURONTIN) capsule 300 mg 300 mg oral TID 300 mg at 06/17/182119 ??? HYDROcodone-acetaminophen (NORCO) 5-325 mg per tablet 2 tablet 2 tablet oral Q4H PRN 2 tablet at 06/18/18 0524 ??? hydrocortisone 2.5 % cream topical Daily PRN ??? ibuprofen (ADVIL,MOTRIN) tablet 600 mg 600 mg oral Q6H PRN ??? methocarbamol (ROBAXIN) tablet 750 mg 750 mg oral TID 750 mg at 06/17/183 ??? ondansetron ODT (ZOFRAN-ODT) disintegrating tablet 4 mg 4 mg oral Q6H PRN Or ??? ondansetron (ZOFRAN) injection 4 mg 4 mg intravenous Q6H PRN 4 mg at 06/12/18 1111 ??? psyllium (aspartame) SF (METAMUCIL SF) 3.4 gram packet 1 packet 1 packet oral Daily 1 packet at06/17/18 0831 ??? senna-docusate (PERICOLACE) 8.6-50 mg per tablet 2 tablet 2 tablet oral BID PRN 2 tablet at 06/15/18 0938 Objective Vitals: 24hr Min/Max: Temp Min: 36.8 ??C (98.2 ??F) Max: 37.2 ??C (99 ??F) Pulse Min: 79 Max: 98 BP Min: 126/67 Max: 154/77 Resp Min: 16 Max: 18 SpO2 Min: 94 % Max: 98 % I/O last 2 completed shifts: In: - Out: 700 [Urine:700] No intake/output data recorded. Physical Exam: Well-developed, well-nourished, in no acute distress. Alert and oriented ?? 3.?? Normal respirations, no dyspnea with speaking. ?? RLE Splint clean and dry EHL/FHL SILT DP/SP/S/S nerve distributions Toes WWP, BCR <2 seconds Labs: Hematology Lab History Some values may be hidden. Unless noted otherwise, only the newest values recorded on each date aredisplayed. Labs - Hematology Latest Ref Range 06/11/18 06/12/18 06/13/18 06/15/18 WBC 3.8 - 9.9 K/cumm 5.5 5.6 8.1 7.8 Total Hb, POC 13.0 - 17.5 g/dL 11.0 (A) 11.3 (A) 10.8 (A) 10.2 (A) Hct 38.9 - 50.3 % 33.0 (A) 34.5 (A) 32.3 (A) 30.6 (A) Plt 150 - 400 K/cumm 189 166 180 197 Neutrophil abs 1.7 - 6.5 K/cumm 4.4 (A) Abnormal value Chem/LFT Lab History Some values may be hidden. Unless noted otherwise, only the newest values recorded on each date aredisplayed. Labs-Chem/LFT Latest Ref Range 06/11/18 06/12/18 06/13/18 06/15/18 Sodium 135 - 145 mmol/L 139 140 139 137 Creatinine 0.80 - 1.30 mg/dL 0.71 (A) 1.00 0.80 0.78 (A) CrCl- Actual Body Weight (Cockcroft-Gault) 198 140.6 175.8 180.3 (A) Abnormal value Radiology Review: I have reviewed the imaging with the following findings: R tibia x-rays: R proximal 1/3 tib-fib fx Assessment 48 y.o. male w/ R proximal 1/3 tib-fib fx POD6 s/p IMN tibia Plan Weight bearing: NWB RLE Maintain RLE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 Baseline Ambulatory Status: community Assistive Device cane No past medical history on file. No past surgical history on file. Medications Prior to Admission Medication Sig Dispense Refill Last Dose ??? ascorbic acid (vitamin C) 1,000 mg tablet 1 tab BID 06/10/2018 at Unknown time ??? carBAMazepine XR (TEGretol XR) 200 mg 12 hr tablet TK 1 T PO FID UTD 1 06/10/2018 at Unknown time ??? fosfomycin (MONUROL) 3 gram packet Take 3 g by mouth every 14 (fourteen) days. 2 packet 3 Past Week at Unknown time Allergies Allergen Reactions ??? Sulfa (Sulfonamide Antibiotics) Unknown Social History Tobacco Use ??? Smoking status: Current Every Day Smoker Packs/day: 0.50 Types: Cigarettes ??? Smokeless tobacco: Never Used Substance Use Topics ??? Alcohol use: Not on file No family history on file. Review of Systems: Review of systems per HPI and otherwise all systems are negative Objective Vitals: Vitals: 06/11/18 1430 BP: 120/63 Pulse: 80 Resp: 20 Temp: 37.3 ??C (99.1 ??F) SpO2: 97% Physical Exam: Well-developed, well-nourished, in no acute distress. Alert and oriented ?? 3. Normal respirations, no dyspnea with speaking. RUE No obvious deformity, skin intact, no ecchymosis, no tenderness to palpation, no crepitus with PROMall joints +biceps/triceps/deltoid/wrist extension/wrist flexion/EPL/FPL/FDS/FDP2-5/IO SILT M/U/R/A nerve distributions +radial pulse, fingers WWP, BCR <2 seconds LUE No obvious deformity, skin intact, no ecchymosis, no tenderness to palpation, no crepitus with PROMall joints +biceps/triceps/deltoid/wrist extension/wrist flexion/EPL/FPL/FDS/FDP2-5/IO SILT M/U/R/A nerve distributions +radial pulse, fingers WWP, BCR <2 seconds RLE No obvious deformity, skin intact with changes consistent with chronic venous insufficiency, no active nonhealing or infected wounds, no ecchymosis, appropriate tenderness to palpation at the site ofinjury, no crepitus with PROM all joints +TA/GS/EHL/FHL SILT DP/SP/S/S nerve distributions +DP/PT pulses, toes WWP, BCR <2 seconds NEISHA 1.2 LLE No obvious deformity, skin intact with changes consistent with chronic venous insufficiency, no active nonhealing or infected wounds, no ecchymosis, no tenderness to palpation, no crepitus with PROM all joints +TA/GS/EHL/FHL SILT DP/SP/S/S nerve distributions +DP/PT pulses, toes WWP, BCR <2 seconds Radiology Review: I have reviewed the imaging with the following findings: Plain films of right femur from outside hospital demonstrate intramedullary nail in place with healed prior distal femoral shaft fracture. There is some heterotopic ossification about the proximal hip. Plain films of the right knee, tib-fib, and ankle demonstrate a comminuted proximal 3rd right tibial shaft fracture. CT from outside hospital shows the known tibial shaft fracture with proximal extension to the level of the fibular head. Noarticular involvement. Assessment /Plan Assessment/Plan: 48-year-old male with right proximal 3rd tibial shaft fracture. Will require OR tomorrow for intramedullary nailing. Plan as follows: - Pain Control - Weight bearing: Nonweightbearing right lower extremity - maintain knee immobilizer - Elevate right lower extremity - Diet: NPO at midnight - Pre-op workup: CBC, BMP, coags, UA, T&S, EKG, CXR - Dispo: Admitted to Ortho Trauma - Attending of record: Dr. Flash Magaña - Please call with questions [phone] Cosigned by Flash Magaña MD at 06/12/2018 4:21 AM SOLAR LAB TECHNICIAN R LAB TECHNICIAN R LAB TECHNICIAN Associated attestation - Flash Magaña MD - 06/12/2018 4:21 AM SOLAR LAB TECHNICIAN I personally saw and examined the patient as an inpatient on 12jun2018. I have reviewed the imaging which shows right proximal tibia and fibula fracture. I have read the resident???s note and agree with the findings and plan by dr Rosendo Sapp MD. Flash Magaña MD 06/12/2018, 4:20 AM documented in this encounter Nursing Notes * Claudia Rizo - 06/16/2018 10:42 PM CDT Isabela Calle MD notified patient is in 9/10 pain. Fortino has norco ordered PRN but has reached hislimit of tylenol in a 24 period. New order for gabapentin and ibuprofen. Will continue to monitor. * Esteban Castro RN - 06/15/2018 12:19 PM CDT Assumed care of patient at 1130. Report received from Cathy Weber RN. Agree with previous assessment unless otherwise noted on assessment flow sheet. Will continue to monitor. * Millie Nixon RN - 06/13/2018 12:47 PM CST Assumed care of Mr. Jain at 12:09pm. Patient was transferred to room 02643K. Patient stable, denies pain, family at bedside, call light within reach. R LAB TECHNICIAN * Avril Ma RN - 06/12/2018 11:00 PM CST Patient was [place] to transfer to [id number] from [id number]. Patient and family member were under the impression they were getting a private room when they transferred. The floor was unable to accommodate aprivate room at this time but possibly can tomorrow during the day. The family requested to stay inthe current room for tonight and transfer in the morning when the room situation was fixed. The ortho night technical support intern, sIabela was notified and was okay with the patient staying on the floor for tonight. R LAB TECHNICIAN * Maritza Moss RN - 06/11/2018 2:30 PM CST New admit into [facility] from [facility]. Patient oriented to unit policy, procedure and call light use. VS obtained and recorded. Skin check verified by Nessa Matute RN. Assessment is as documented. Ortho/Trauma notified of arrival on unit. Awaiting orders. Cosigned by Tea Matute, DANNA at 06/11/2018 5:55 PM SOLAR LAB TECHNICIAN R LAB TECHNICIAN R LAB TECHNICIAN R LAB TECHNICIAN documented in this encounter Miscellaneous Notes * ECIN Note - Estephania Mak LCSW - 06/18/2018 1:02 PM CDT Patient Information: Vitals Info Only Vital Signs 06/17 699 - 06/18 0659 06/18 699 - 06/18 1302 Most Recent Temp (??C) 36.8 - 37.2 36.8 (98.2) Pulse 88 - 98 79 79 Resp 16 - 18 18 18 SpO2 (%) 96 - 98 94 94 BP 148/79 - 154/84 126/67 126/67 * Plan of Care - Franklin Hood, DANNA - 06/18/2018 10:46 AM CDT Problem: Health Behavior: Goal: Understanding of discharge needs will improve Outcome: Progressing Problem: Lack of Knowledge: Goal: Ability to develop a pain control plan will improve Outcome: Progressing Goal: Ability to identify pain intensity on a pain scale and rate it consistently will improve Outcome: Progressing Goal: Ability to notify healthcare provider of pain before it becomes unmanageable or unbearable will improve Outcome: Progressing Problem: Activity: Goal: Ability to perform activities at highest level will improve Outcome: Progressing Goal: Mobility will improve Outcome: Progressing Problem: Lack of Knowledge: Goal: Ability to verbalize activity precautions or restrictions will improve Outcome: Progressing Problem: Activity: Goal: Mobility will improve Outcome: Progressing Problem: Lack of Knowledge: Goal: Understanding of ways to prevent future skin breakdown will improve Outcome: Progressing Goal: Ability to identify appropriate dietary choices will improve Outcome: Progressing Problem: Nutritional: Goal: Dietary intake will improve Outcome: Progressing Goal: Ability to maintain a balanced intake and output will improve Outcome: Progressing Problem: Skin Integrity: Goal: Risk for impaired skin integrity will decrease Outcome: Progressing Goal: Ability to demonstrate warm and dry skin will improve Outcome: Progressing Goal: Circulation will improve to fullest extent possible Outcome: Progressing Problem: Lack of Knowledge: Goal: Ability to state ways to decrease the risk of falls will improve Outcome: Progressing Problem: Safety: Goal: Will remain free from falls Outcome: Progressing Goal: Will remain free from injury from falls Outcome: Progressing Goal: Will remain free from falls and injury in home environment Outcome: Progressing Goals: * Plan of Sil - Juana Diamond RN - 06/17/2018 11:24 PM CDT Problem: Health Behavior: Goal: Understanding of discharge needs will improve Outcome: Progressing Problem: Lack of Knowledge: Goal: Ability to develop a pain control plan will improve Outcome: Progressing Goal: Ability to identify pain intensity on a pain scale and rate it consistently will improve Outcome: Progressing Goal: Ability to notify healthcare provider of pain before it becomes unmanageable or unbearable will improve Outcome: Progressing Problem: Activity: Goal: Ability to perform activities at highest level will improve Outcome: Progressing Goal: Mobility will improve Outcome: Progressing Problem: Lack of Knowledge: Goal: Ability to verbalize activity precautions or restrictions will improve Outcome: Progressing Problem: Activity: Goal: Mobility will improve Outcome: Progressing Problem: Lack of Knowledge: Goal: Understanding of ways to prevent future skin breakdown will improve Outcome: Progressing Goal: Ability to identify appropriate dietary choices will improve Outcome: Progressing Problem: Nutritional: Goal: Dietary intake will improve Outcome: Progressing Goal: Ability to maintain a balanced intake and output will improve Outcome: Progressing Problem: Skin Integrity: Goal: Risk for impaired skin integrity will decrease Outcome: Progressing Goal: Ability to demonstrate warm and dry skin will improve Outcome: Progressing Goal: Circulation will improve to fullest extent possible Outcome: Progressing Problem: Lack of Knowledge: Goal: Ability to state ways to decrease the risk of falls will improve Outcome: Progressing Problem: Safety: Goal: Will remain free from falls Outcome: Progressing Goal: Will remain free from injury from falls Outcome: Progressing Goal: Will remain free from falls and injury in home environment Outcome: Progressing Goals: Clinical Goals for the Shift: pain control and therapy Patient will remain free from falls. Patient`s pain will be managed. Patient will participate in own care. Summary: Patient remained free from falls. Patient`s pain was well controlled. Patient participated in own care. * Plan of Care - Madeline Martínez RN - 06/17/2018 3:50 PM CDT Per DCAM, patient will discharge to rehab. following for placement. CM will continue to follow patient for medical condition updates and discharge planning needs. * Plan of Care - Wanda Henriquez OT - 06/17/2018 3:48 PM CDT Problem: Dressings Lower Extremities Goal: STG - Patient to complete lower body dressing Description With mod A, using AE PRN. Outcome: Progressing Flowsheets (Taken 06/17/2018 1547) Assist Level: MAX Problem: Toileting Goal: STG - Patient will complete toileting tasks with Description With min A. Outcome: Progressing Flowsheets (Taken 06/17/2018 1547) Assist Level: MOD Problem: Transfers Goal: STG - Patient will perform toilet transfer Description To drop-arm [facility], with supervision. Outcome: Completed * Plan of Care - Esteban Castro RN - 06/17/2018 11:07 AM CDT Problem: Health Behavior: Goal: Understanding of discharge needs will improve Outcome: Progressing Problem: Lack of Knowledge: Goal: Ability to develop a pain control plan will improve Outcome: Progressing Goal: Ability to identify pain intensity on a pain scale and rate it consistently will improve Outcome: Progressing Goal: Ability to notify healthcare provider of pain before it becomes unmanageable or unbearable will improve Outcome: Progressing Problem: Activity: Goal: Ability to perform activities at highest level will improve Outcome: Progressing Goal: Mobility will improve Outcome: Progressing Problem: Lack of Knowledge: Goal: Ability to verbalize activity precautions or restrictions will improve Outcome: Progressing Problem: Activity: Goal: Mobility will improve Outcome: Progressing Problem: Lack of Knowledge: Goal: Understanding of ways to prevent future skin breakdown will improve Outcome: Progressing Goal: Ability to identify appropriate dietary choices will improve Outcome: Progressing Problem: Nutritional: Goal: Dietary intake will improve Outcome: Progressing Goal: Ability to maintain a balanced intake and output will improve Outcome: Progressing Problem: Skin Integrity: Goal: Risk for impaired skin integrity will decrease Outcome: Progressing Goal: Ability to demonstrate warm and dry skin will improve Outcome: Progressing Goal: Circulation will improve to fullest extent possible Outcome: Progressing Problem: Lack of Knowledge: Goal: Ability to state ways to decrease the risk of falls will improve Outcome: Progressing Problem: Safety: Goal: Will remain free from falls Outcome: Progressing Goal: Will remain free from injury from falls Outcome: Progressing Goal: Will remain free from falls and injury in home environment Outcome: Progressing Goals: Clinical Goals for the Shift: pain control and therapy Summary: patient is progressing toward all goals. VSS, will focus on pain control and therapy today. * Plan of Care - Estephania Mak LCSW - 06/17/2018 10:25 AM CDT Patient is being followed by [facility]. Currently awaiting insurance authorization. will follow. * Plan of Care - Claudia Rizo - 06/17/2018 2:51 AM CDT Goals: Problem: Health Behavior: Goal: Understanding of discharge needs will improve Outcome: Progressing Problem: Lack of Knowledge: Goal: Ability to develop a pain control plan will improve Outcome: Progressing Goal: Ability to identify pain intensity on a pain scale and rate it consistently will improve Outcome: Progressing Goal: Ability to notify healthcare provider of pain before it becomes unmanageable or unbearable will improve Outcome: Progressing Problem: Activity: Goal: Ability to perform activities at highest level will improve Outcome: Progressing Goal: Mobility will improve Outcome: Progressing Problem: Lack of Knowledge: Goal: Ability to verbalize activity precautions or restrictions will improve Outcome: Progressing Problem: Activity: Goal: Mobility will improve Outcome: Progressing Problem: Lack of Knowledge: Goal: Understanding of ways to prevent future skin breakdown will improve Outcome: Progressing Goal: Ability to identify appropriate dietary choices will improve Outcome: Progressing Problem: Nutritional: Goal: Dietary intake will improve Outcome: Progressing Goal: Ability to maintain a balanced intake and output will improve Outcome: Progressing Problem: Skin Integrity: Goal: Risk for impaired skin integrity will decrease Outcome: Progressing Goal: Ability to demonstrate warm and dry skin will improve Outcome: Progressing Goal: Circulation will improve to fullest extent possible Outcome: Progressing Problem: Lack of Knowledge: Goal: Ability to state ways to decrease the risk of falls will improve Outcome: Progressing Problem: Safety: Goal: Will remain free from falls Outcome: Progressing Goal: Will remain free from injury from falls Outcome: Progressing Goal: Will remain free from falls and injury in home environment Outcome: Progressing Clinical Goals for the Shift: pain control Summary: Patient progressing towards goals. * ECIN Note - Estephania Mak LCSW - 06/16/2018 3:43 PM CDT Patient Information: Vitals Info Only Vital Signs 06/15 07 - 06/16 0659 06/16 699 - 06/16 1543 Most Recent Temp (??C) 36.8 - 37.5 37 37 (98.6) Pulse 92 - 99 89 89 Resp 16 - 18 16 16 SpO2 (%) 94 - 97 BP 117/55 - 169/82 115/55 115/55 MAP (mmHg) 68 - 94 96 96 * Plan of Care - Esteban Castro RN - 06/16/2018 11:58 AM CDT Problem: Health Behavior: Goal: Understanding of discharge needs will improve Outcome: Progressing Problem: Lack of Knowledge: Goal: Ability to develop a pain control plan will improve Outcome: Progressing Goal: Ability to identify pain intensity on a pain scale and rate it consistently will improve Outcome: Progressing Goal: Ability to notify healthcare provider of pain before it becomes unmanageable or unbearable will improve Outcome: Progressing Problem: Activity: Goal: Ability to perform activities at highest level will improve Outcome: Progressing Goal: Mobility will improve Outcome: Progressing Problem: Lack of Knowledge: Goal: Ability to verbalize activity precautions or restrictions will improve Outcome: Progressing Problem: Activity: Goal: Mobility will improve Outcome: Progressing Problem: Lack of Knowledge: Goal: Understanding of ways to prevent future skin breakdown will improve Outcome: Progressing Goal: Ability to identify appropriate dietary choices will improve Outcome: Progressing Problem: Nutritional: Goal: Dietary intake will improve Outcome: Progressing Goal: Ability to maintain a balanced intake and output will improve Outcome: Progressing Problem: Skin Integrity: Goal: Risk for impaired skin integrity will decrease Outcome: Progressing Goal: Ability to demonstrate warm and dry skin will improve Outcome: Progressing Goal: Circulation will improve to fullest extent possible Outcome: Progressing Problem: Lack of Knowledge: Goal: Ability to state ways to decrease the risk of falls will improve Outcome: Progressing Problem: Safety: Goal: Will remain free from falls Outcome: Progressing Goal: Will remain free from injury from falls Outcome: Progressing Goal: Will remain free from falls and injury in home environment Outcome: Progressing Goals: Clinical Goals for the Shift: pain control Summary: patient is progressing toward all goals. VSS, will focus on pain control today. * Plan of Claudia Price - 06/16/2018 4:14 AM CDT Goals: Problem: Health Behavior: Goal: Understanding of discharge needs will improve Outcome: Progressing Problem: Lack of Knowledge: Goal: Ability to develop a pain control plan will improve Outcome: Progressing Goal: Ability to identify pain intensity on a pain scale and rate it consistently will improve Outcome: Progressing Goal: Ability to notify healthcare provider of pain before it becomes unmanageable or unbearable will improve Outcome: Progressing Problem: Activity: Goal: Ability to perform activities at highest level will improve Outcome: Progressing Goal: Mobility will improve Outcome: Progressing Problem: Lack of Knowledge: Goal: Ability to verbalize activity precautions or restrictions will improve Outcome: Progressing Problem: Activity: Goal: Mobility will improve Outcome: Progressing Problem: Lack of Knowledge: Goal: Understanding of ways to prevent future skin breakdown will improve Outcome: Progressing Goal: Ability to identify appropriate dietary choices will improve Outcome: Progressing Problem: Nutritional: Goal: Dietary intake will improve Outcome: Progressing Goal: Ability to maintain a balanced intake and output will improve Outcome: Progressing Problem: Skin Integrity: Goal: Risk for impaired skin integrity will decrease Outcome: Progressing Goal: Ability to demonstrate warm and dry skin will improve Outcome: Progressing Goal: Circulation will improve to fullest extent possible Outcome: Progressing Problem: Lack of Knowledge: Goal: Ability to state ways to decrease the risk of falls will improve Outcome: Progressing Problem: Safety: Goal: Will remain free from falls Outcome: Progressing Goal: Will remain free from injury from falls Outcome: Progressing Goal: Will remain free from falls and injury in home environment Outcome: Progressing Clinical Goals for the Shift: Pain Control Summary: Patient progressing towards goals. * Plan of Care - Connie Rodriguez PTA - 06/15/2018 5:27 PM CDT Problem: Transfers Goal: LTG - Patient will transfer from one surface to another Description Mod I Outcome: Progressing Goal: STG - Transfer from bed to chair Description Supervision with slide board transfer to w/c Outcome: Progressing Goal: STG - Patient to transfer to and from sit to supine Description Supervision Outcome: Progressing * ECIN Note - Estephania Mak LCSW - 06/15/2018 4:01 PM CDT Patient Information: OT Eval and Treat Last 72 Hours OT Evaluation Row Name 06/15/18 1310 06/15/18 1230 Chart Reviewed Yes -SS -- Session Type Evaluation -SS -- OT Received On 06/15/18 -SS -- Subjective Agreeable to Therapy -SS -- OT Missed Visit Reason -- With other staff/receiving another service OT to evaluate when available.-SS Family/Caregiver Present Yes -SS -- Occupational Therapy-Patient Goal Patient agreeable to discussed OT plan of care. -SS -- Precautions Fall risk -SS -- Weight Bearing Restrictions Yes -SS -- RLE Weight Bearing NWB - -- Type of Home House -SS -- Home Layout One level;Able to live on main level with bedroom/bathroom -SS -- Home Access Stairs to enter with rails -SS -- Entrance Stairs-Rails Right -SS -- Entrance Stairs-Number of Steps 2 -SS -- Bathroom Shower/Tub Walk-in shower with threshold 8 threshold -SS -- Bathroom Toilet Raised -SS -- Bathroom Equipment Grab bars in shower/tub;Grab bars around toilet;Built-in shower seat Unable to sit on seats due to spasticity - -- Home Mobility Equipment Single point cane;Wheeled walker - -- Home ADL Equipment Apricot Packer - -- Additional Comments Patient reports use of single point cane for all functional mobility. 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 -SS -- ADLS (WDL) X -SS -- Grooming: Where assessed Wheelchair -SS -- Grooming: Level of assistance Moderate Set-up for task; Total A for balance -SS -- LE Dressing: Level of assistance Maximal Max A for task; Total A for balance -SS -- LE Dressing: Assistance with Don/doff L sock;Thread RLE into pants;Thread RLE into underwear;Pull up over hips -SS -- LE Dressing: Equipment Utilized Apricot Packer -SS -- Toileting: Where assessed Wheelchair simulated -SS -- Toileting: Level of assistance Moderate Mod A for task; Supervision for sitting balance -SS -- Toileting: Assistance with Clothing management up;Clothing management down;Posterior -SS -- Toilet Transfer Technique Lateral;To right Use of slideboard -SS -- Toilet Transfers Minimal assistance;Verbal cues -SS -- Toilet Transfers Comments Simulated toilet transfer from wheelchair to bed with use of slideboard. Required physical assistance for set-up of slideboard. Required verbal cues for maintaining non weight-bearing precautions to right LE. Patient required CGA for balance during slideboard transfer. -SS-- Pain Assessment 0-10 -SS -- Pain Score 8 -SS -- Pain Interventions RN Notified RN Sarkis -SS -- Overall Cognitive Status WFL SBT: 0 -SS -- Arousal/Alertness Alert;Appropriate responses to stimuli -SS -- Attention Span Appears intact -SS -- Memory Appears intact -SS -- Orientation Oriented X4 (person, place, time, situation) -SS -- Following Commands Follows all commands and directions without difficulty -SS -- Safety Judgment Good awareness of safety precautions -SS -- Awareness of Errors Good awareness of errors made -SS -- Insight Fully aware of deficits -SS -- Problem Solving Assistance required to generate solutions -SS -- Compliance/Behavior Easy to engage -SS -- Perseveration Not present -SS -- Light Touch WFL BUE -SS -- Sensation Comments Patient reports tingling in left 5th digit, which he reports was present at baseline. Patient reports no changes in this tingling since surgery. -SS -- Movements Are Fluid and Coordinated 1 -SS -- Fine Motor WFL -SS -- Serial Opposition WFL -SS -- Eye-Hand Coordination WFL -SS -- Coordination Functional -SS -- Gross Grasp Functional -SS -- Balance Yes -SS -- Static Sitting-Balance Support Bilateral upper extremity supported;Feet supported L foot supported -SS -- Static Sitting-Level of Assistance Close supervision For safety -SS -- Dynamic Sitting-Balance Support Bilateral upper extremity supported;Feet supported L foot supported-SS -- Dynamic Sitting-Balance Reaching for objects During grooming, LB dressing, toileting -SS -- Dynamic Sitting-Level of Assistance Close supervision For safety -SS -- Bed Mobility Yes -SS -- Bed Mobility From 1 Edge of bed -SS -- Bed Mobility Type 1 To -SS -- Bed Mobility to 1 Supine -SS -- Level of Assistance 1 Minimum assistance -SS -- Bed Mobility Comments 1 Required physical assistance to manuever right LE onto bed. -SS -- Transfer Yes See toilet transfer -SS -- RUE Assessment WFL -SS -- LUE Assessment WFL -SS -- Comments Patient limited in completing ADLs and functional transfers by bilateral LE spasticity. Patient unable to maintain weight-bearing precautions while completing ADLs and functional transfers due to spasticity and left LE weakness. Patient would benefit from continued therapy post-discharge to address occupational performance and safe technique for completing ADLs and functional mobility. Treatment provided: Therapist educated patient and spouse on use of AE for completing ADLs. Patient able to use code inspector to don pants over left LE, but required assistance for right LE due to cast. During treatment, patient required increased rest breaks in order to allow for muscle spasms to pass. -SS -- Problem List Decreased ADLs;Decreased functional mobility;Decreased ADL independence;Abnormal tone - -- Barriers to Discharge Decreased caregiver support - -- Barrier Comments SAFETY CONCERNS due to increased fall risk and decreased caregiver support - -- Plan Plan of care initiated;If this is the last note, consider this the discharge summary - -- OT Recommendation Inpatient Rehab Facility - -- OT Frequency 3-5x/wk - -- Treatment/Interventions ADLs/ADL retraining;Functional transfer training;Patient/family training;Balance Training;Bed mobility;Functional mobility;Functional activities;Strength training/Strengthening - -- OT Equipment Recommended Transfer tub bench - -- OT - Next Appointment 06/17/18 - -- OT - OK to Discharge No -SS -- OT Evaluation Complete Yes -SS -- User Vanegas (r) = Recorded By, (t) = Taken By, (c) = Cosigned By Initials Name Effective Dates SS Wanda Henriquez OT 01/07/18 - OT Treatment No documentation. OT Notes (Notes from 06/13/18 through 06/15/18) No notes of this type exist for this encounter. , OT Eval and Treat Last Documented OT ASSESSMENT FLOWSHEET LAST DOCUMENTED (most recent) OT Evaluation - 06/15/18 1500 Precautions Precautions Fall risk OT TREATMENT FLOWSHEET LAST DOCUMENTED (most recent) OT Treatment - 06/15/18 1500 Precautions Precautions Fall risk OT Notes (Notes from 06/13/18 through 06/15/18) No notes of this type exist for this encounter. , PT Eval and Treat Last 72 Hours PT Evaluation Row Name 06/14/18 0800 06/13/18 1130 Chart Reviewed Yes -JT -- Session Type Evaluation -JT -- Subjective Agreeable to Therapy -JT -- Subjective Comment Patient reports his left leg needs ROM/stretching before he can get out of bed. -JT -- PT Missed Visit Reason -- Patient declined;Family declined Pain, spasms. Just started on flexeril. - Additional Pertinent History 48 y.o. male w/ R proximal 04/09 tib-fib fx s/p ORIF 06/12.; PMH: quadriparesis (spasticity and LE flexor tone, back spasms), recurrent UTI, seizure -JT -- Response to Previous Treatment Not applicable -JT -- Family/Caregiver Present No -JT -- Physical Therapy-Patient Goal To get back to work -JT -- Precautions Fall risk;Seizure -JT -- Precautions Fall risk;Seizure -JT -- Weight Bearing Restrictions Yes -JT -- RLE Weight Bearing NWB -JT -- Type of Home House -JT -- Home Layout One level;Performs ADLs on one level;Able to live on main level with bedroom/bathroom -JT -- Home Access Stairs to enter with rails -JT -- Entrance Stairs-Rails Right -JT -- Entrance Stairs-Number of Steps 2 -JT -- Home Mobility Equipment Single point cane;Wheeled walker -JT -- Level of [place] Independent with ADLs;Independent functional transfers;Independent with ambulation Community ambulation with cane -JT -- Lives With Significant other -JT -- Receives Help From Spouse/Significant other rn post partum assist -JT -- Driving Yes -JT -- Current License Yes -JT -- Mode of Transportation Car -JT -- ADL Assistance Independent -JT -- Instrumental ADL (IADL) Assistance Independent -JT -- 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 -JT -- Fall within the last 6 months Yes -JT -- Fall within the last 6 months comment Endorses several falls secondary to spasms/spasticity -JT -- Endurance Tolerates 10 - 20 min activity with multiple rests -JT -- Activity Tolerance Comments Dwayne=Hard -JT -- Pain Assessment 0-10 -JT -- Pain Score 8 -JT -- Patient's Stated Pain Goal 2 -JT -- Pain Type Acute pain -JT -- Pain Location Leg -JT -- Pain Orientation Right -JT -- Pain Descriptors Sore;Aching -JT -- Pain Frequency Frequently -JT -- Pain Onset Ongoing -JT -- Clinical Progression Not changed -JT -- Pain Interventions RN Notified -JT -- Multiple Pain Sites Two -JT -- Pain Score 2 8 -JT -- Pain Type 2 Chronic pain -JT -- Pain Location 2 Back (Lumbar) -JT -- Pain Orientation 2 Mid;Lower -JT -- Pain Descriptors 2 Spasm -JT -- Pain Frequency 2 Intermittent -JT -- Pain Onset 2 Sudden -JT -- Clinical Progression 2 Gradually worsening -JT -- Patient's Stated Pain Goal 2 No pain -JT -- Pain Intervention(s) 2 Exercise;Physical Therapy -JT -- Response to Interventions 2 Improved -JT -- Arousal/Alertness Alert;Appropriate responses to stimuli -JT -- Attention Span Appears intact -JT -- Memory Appears intact -JT -- Orientation Oriented X4 (person, place, time, situation) -JT -- Following Commands Follows all commands and directions without difficulty -JT -- Safety Judgment Good awareness of safety precautions -JT -- Awareness of Errors Good awareness of errors made -JT -- Insight Fully aware of deficits -JT -- Problem Solving Assistance required to generate solutions -JT -- Compliance/Behavior Reluctant to participate -JT -- Perseveration Not present -JT -- Light Touch WFL L LE and R toes -JT -- Sensation Comments Edema: None noted LLE -JT -- Motor Planning Appears intact -JT -- Balance Yes -JT -- Static Sitting-Balance Support Bilateral upper extremity supported L foot supported -JT -- Static Sitting-Level of Assistance Close supervision -JT -- Static Sitting-Comment/# of Minutes EOB x 2-3 min -JT -- Dynamic Sitting-Balance Support Bilateral upper extremity supported LLE supported -JT -- Dynamic Sitting-Balance -- Transferring to w/c -JT -- Dynamic Sitting-Level of Assistance Minimum assistance -JT -- Dynamic Sitting-Comments MIN assist for balance to prevent posterior LOB with onset of back spasm. -JT -- Generalized Tone High normal B LE -JT -- Bed Mobility Yes -JT -- Bed Mobility From 1 Supine -JT -- Bed Mobility Type 1 To -JT -- Bed Mobility to 1 Edge of bed -JT -- Level of Assistance 1 Minimum assistance;Minimal verbal cues;Minimal tactile cues -JT -- Bed Mobility Comments 1 Assistance required maneuvering LE's off side of bed and elevation of trunk-JT -- Bed Mobility From 2 Side lying-right -JT -- Bed Mobility Type 2 To -JT -- Bed Mobility to 2 Supine;Rolling left -JT -- Level of Assistance 2 Moderate assistance;Minimal verbal cues -JT -- Bed Mobility Comments 2 Assistance needed with force production -JT -- Transfer Yes -JT -- Transfer From 1 Bed -JT -- Transfer Type 1 To -JT -- Transfer to 1 Wheelchair -JT -- Technique 1 To left;Lateral with transfer board -JT -- Transfer Level of Assistance 1 Minimum assistance;Minimal verbal cues;Minimal tactile cues -JT -- Trials/Comments 1 Assistance required stabilizing sliding boarch. Verbal/tactile cues provided for hand placement -JT -- Functional Ambulation Category 0 -JT -- Ambulation No -JT -- Stairs No -JT -- RUE Assessment WFL -JT -- LUE Assessment WFL -JT -- RLE Assessment X -JT -- R Hip Flexion 2/5 -JT -- RLE Tone Hypertonic Flexor tone -JT -- LLE Assessment X -JT -- L Hip Flexion 2/5 -JT -- L Knee Flexion 4/5 -JT -- L Knee Extension 2/5 -JT -- L Ankle Dorsiflexion 2/5 -JT -- L Ankle Plantar Flexion 3-/5 -JT -- LLE Tone Hypertonic Flexor tone -JT -- Equipment Use Comments Gait belt not utilized -JT -- Potential/Prognosis Fair -JT -- Problem List Impaired tone;Pain;Orthopedic restrictions;Decreased mobility;Impaired balance;Decreased range of motion;Decreased strength;Abnormal muscle tone;Decreased handling tolerance;Decreased passive range of motion -JT -- Problem List Comments Patient with diagnosis of R tib-fib ORIF presents with deficits in bed mobility, transfers, ambulation due to impairments in tone, strength, ROM, pain, posture. These deficits prevent full participation in the following activity(s): community ambulation and work activities. -JT -- Barriers to Discharge -- pain, spasms, tone -JT -- Plan Continue with current plan;If this is the last note, consider this the discharge summary -JT -- PT Recommendation/Plan Inpatient Rehab Facility -JT -- PT Frequency 5-7x/wk -JT -- Treatment/Interventions Functional transfer training;LE Strengthening/ROM;Balance Training;WC Mobility training and management;Therapeutic exercises;ROM;Stair Mobility Training;Active movement facilitation;Positioning;Bed mobility;Continued evaluation;Neuromuscular re- education;Patient/family training;Functional mobility;Functional activities -JT -- PT Evaluation Complete Yes -JT -- User Vanegas (r) = Recorded By, (t) = Taken By, (c) = Cosigned By Initials Name Effective Dates JT Yokasta Gamble, PT 10/28/17 - MH Angus Rivas, PT 10/28/17 - PT TREATMENT (last 168 hours) PT Treatment No documentation. PT Notes (Notes from 06/13/18 through 06/15/18) No notes of this type exist for this encounter. , PT Eval and Treat Last Documented OT ASSESSMENT FLOWSHEET LAST DOCUMENTED (most recent) PT Evaluation - 06/15/18 1500 Precautions Precautions Fall risk PT TREATMENT (most recent) PT Treatment - 06/15/18 1500 Precautions Precautions Fall risk PT Notes (Notes from 06/13/18 through 06/15/18) No notes of this type exist for this encounter. * Plan of Care - Wanda Henriquez, OT - 06/15/2018 3:21 PM CDT Problem: Dressings Lower Extremities Goal: STG - Patient to complete lower body dressing Description With mod A, using AE PRN. Outcome: Progressing Flowsheets (Taken 06/15/2018 1521) Assist Level: MAX * Plan of Care - Estephania Mak LCSW - 06/15/2018 3:06 PM CDT Per medical team patient is not medically ready for discharge today. Problem: Patient has been identified by therapy as needing rehab placement. Goal/Outcome: Patient was in agreement with rehab and requested a referral to [facility]. SW will follow. ADD- -14- * Plan of Care - Madeline Martínez RN - 06/15/2018 3:02 PM CDT Patient transferred to [place] [id number] on 06/13/18. SW following for placement. CM will continue to follow patient for medical condition updates and discharge planning needs. * Plan of Care - Cathy Weber RN - 06/15/2018 10:50 AM CDT Problem: Health Behavior: Goal: Understanding of discharge needs will improve Outcome: Progressing Problem: Lack of Knowledge: Goal: Ability to develop a pain control plan will improve Outcome: Progressing Goal: Ability to identify pain intensity on a pain scale and rate it consistently will improve Outcome: Progressing Goal: Ability to notify healthcare provider of pain before it becomes unmanageable or unbearable will improve Outcome: Progressing Problem: Activity: Goal: Ability to perform activities at highest level will improve Outcome: Progressing Goal: Mobility will improve Outcome: Progressing Problem: Lack of Knowledge: Goal: Ability to verbalize activity precautions or restrictions will improve Outcome: Progressing Problem: Activity: Goal: Mobility will improve Outcome: Progressing Problem: Lack of Knowledge: Goal: Understanding of ways to prevent future skin breakdown will improve Outcome: Progressing Goal: Ability to identify appropriate dietary choices will improve Outcome: Progressing Problem: Nutritional: Goal: Dietary intake will improve Outcome: Progressing Goal: Ability to maintain a balanced intake and output will improve Outcome: Progressing Problem: Skin Integrity: Goal: Risk for impaired skin integrity will decrease Outcome: Progressing Goal: Ability to demonstrate warm and dry skin will improve Outcome: Progressing Goal: Circulation will improve to fullest extent possible Outcome: Progressing Problem: Lack of Knowledge: Goal: Ability to state ways to decrease the risk of falls will improve Outcome: Progressing Problem: Safety: Goal: Will remain free from falls Outcome: Progressing Goal: Will remain free from injury from falls Outcome: Progressing Goal: Will remain free from falls and injury in home environment Outcome: Progressing Goals: Clinical Goals for the Shift: Pain Control Summary: Patient will continue to progress with all goals. * Plan of Care - Elisa Avila - 06/15/2018 3:25 AM CDT Problem: Health Behavior: Goal: Understanding of discharge needs will improve Outcome: Progressing Problem: Lack of Knowledge: Goal: Ability to develop a pain control plan will improve Outcome: Progressing Goal: Ability to identify pain intensity on a pain scale and rate it consistently will improve Outcome: Progressing Goal: Ability to notify healthcare provider of pain before it becomes unmanageable or unbearable will improve Outcome: Progressing Problem: Activity: Goal: Ability to perform activities at highest level will improve Outcome: Progressing Goal: Mobility will improve Outcome: Progressing Problem: Lack of Knowledge: Goal: Ability to verbalize activity precautions or restrictions will improve Outcome: Progressing Problem: Activity: Goal: Mobility will improve Outcome: Progressing Problem: Lack of Knowledge: Goal: Understanding of ways to prevent future skin breakdown will improve Outcome: Progressing Goal: Ability to identify appropriate dietary choices will improve Outcome: Progressing Problem: Nutritional: Goal: Dietary intake will improve Outcome: Progressing Goal: Ability to maintain a balanced intake and output will improve Outcome: Progressing Problem: Skin Integrity: Goal: Risk for impaired skin integrity will decrease Outcome: Progressing Goal: Ability to demonstrate warm and dry skin will improve Outcome: Progressing Goal: Circulation will improve to fullest extent possible Outcome: Progressing Problem: Lack of Knowledge: Goal: Ability to state ways to decrease the risk of falls will improve Outcome: Progressing Problem: Safety: Goal: Will remain free from falls Outcome: Progressing Goal: Will remain free from injury from falls Outcome: Progressing Goal: Will remain free from falls and injury in home environment Outcome: Progressing Goals: Clinical Goals for the Shift: Pain Control Summary: Patient progressing toward goals. * Plan of Care - Eleuterio Dill - 06/14/2018 10:52 AM CDT Problem: Health Behavior: Goal: Understanding of discharge needs will improve Outcome: Progressing Problem: Lack of Knowledge: Goal: Ability to develop a pain control plan will improve Outcome: Progressing Goal: Ability to identify pain intensity on a pain scale and rate it consistently will improve Outcome: Progressing Goal: Ability to notify healthcare provider of pain before it becomes unmanageable or unbearable will improve Outcome: Progressing Problem: Activity: Goal: Ability to perform activities at highest level will improve Outcome: Progressing Goal: Mobility will improve Outcome: Progressing Problem: Lack of Knowledge: Goal: Ability to verbalize activity precautions or restrictions will improve Outcome: Progressing Problem: Activity: Goal: Mobility will improve Outcome: Progressing Problem: Lack of Knowledge: Goal: Understanding of ways to prevent future skin breakdown will improve Outcome: Progressing Goal: Ability to identify appropriate dietary choices will improve Outcome: Progressing Problem: Nutritional: Goal: Dietary intake will improve Outcome: Progressing Goal: Ability to maintain a balanced intake and output will improve Outcome: Progressing Problem: Skin Integrity: Goal: Risk for impaired skin integrity will decrease Outcome: Progressing Goal: Ability to demonstrate warm and dry skin will improve Outcome: Progressing Goal: Circulation will improve to fullest extent possible Outcome: Progressing Problem: Lack of Knowledge: Goal: Ability to state ways to decrease the risk of falls will improve Outcome: Progressing Problem: Safety: Goal: Will remain free from falls Outcome: Progressing Goal: Will remain free from injury from falls Outcome: Progressing Goal: Will remain free from falls and injury in home environment Outcome: Progressing Goals: Clinical Goals for the Shift: pain control Summary: patient is progressing at all goals * Plan of Care - Jd Erazo RN - 06/13/2018 10:43 PM CST Goals: Clinical Goals for the Shift: pain control Summary: Patient is using prn pain medication for pain control. Patient is progressing towards goals. R LAB TECHNICIAN * Plan of Care - Pat Fernandez RN - 06/13/2018 9:59 AM CST Problem: Health Behavior: Goal: Understanding of discharge needs will improve Outcome: Progressing Problem: Lack of Knowledge: Goal: Ability to develop a pain control plan will improve Outcome: Progressing Goal: Ability to identify pain intensity on a pain scale and rate it consistently will improve Outcome: Progressing Goal: Ability to notify healthcare provider of pain before it becomes unmanageable or unbearable will improve Outcome: Progressing Problem: Activity: Goal: Ability to perform activities at highest level will improve Outcome: Progressing Goal: Mobility will improve Outcome: Progressing Problem: Lack of Knowledge: Goal: Ability to verbalize activity precautions or restrictions will improve Outcome: Progressing Problem: Activity: Goal: Mobility will improve Outcome: Progressing Problem: Lack of Knowledge: Goal: Understanding of ways to prevent future skin breakdown will improve Outcome: Progressing Goal: Ability to identify appropriate dietary choices will improve Outcome: Progressing Problem: Nutritional: Goal: Dietary intake will improve Outcome: Progressing Goal: Ability to maintain a balanced intake and output will improve Outcome: Progressing Problem: Skin Integrity: Goal: Risk for impaired skin integrity will decrease Outcome: Progressing Goal: Ability to demonstrate warm and dry skin will improve Outcome: Progressing Goal: Circulation will improve to fullest extent possible Outcome: Progressing Problem: Lack of Knowledge: Goal: Ability to state ways to decrease the risk of falls will improve Outcome: Progressing Problem: Safety: Goal: Will remain free from falls Outcome: Progressing Goal: Will remain free from injury from falls Outcome: Progressing Goal: Will remain free from falls and injury in home environment Outcome: Progressing Clinical Goals for the Shift: Pain control Summary: RN called MD and got new orders for pain control. Pt stated morphine makes him feel sick after a few days and has been having lots of muscle spasms. Will continue to monitor. Pat Fernandez RN R LAB TECHNICIAN * Plan of Care - Avril Ma RN - 06/12/2018 9:59 PM CST Problem: Health Behavior: Goal: Understanding of discharge needs will improve Outcome: Progressing Problem: Lack of Knowledge: Goal: Ability to develop a pain control plan will improve Outcome: Progressing Goal: Ability to identify pain intensity on a pain scale and rate it consistently will improve Outcome: Progressing Goal: Ability to notify healthcare provider of pain before it becomes unmanageable or unbearable will improve Outcome: Progressing Problem: Activity: Goal: Ability to perform activities at highest level will improve Outcome: Progressing Goal: Mobility will improve Outcome: Progressing Problem: Lack of Knowledge: Goal: Ability to verbalize activity precautions or restrictions will improve Outcome: Progressing Problem: Activity: Goal: Mobility will improve Outcome: Progressing Problem: Lack of Knowledge: Goal: Understanding of ways to prevent future skin breakdown will improve Outcome: Progressing Goal: Ability to identify appropriate dietary choices will improve Outcome: Progressing Problem: Nutritional: Goal: Dietary intake will improve Outcome: Progressing Goal: Ability to maintain a balanced intake and output will improve Outcome: Progressing Problem: Skin Integrity: Goal: Risk for impaired skin integrity will decrease Outcome: Progressing Goal: Ability to demonstrate warm and dry skin will improve Outcome: Progressing Goal: Circulation will improve to fullest extent possible Outcome: Progressing Problem: Lack of Knowledge: Goal: Ability to state ways to decrease the risk of falls will improve Outcome: Progressing Problem: Safety: Goal: Will remain free from falls Outcome: Progressing Goal: Will remain free from injury from falls Outcome: Progressing Goal: Will remain free from falls and injury in home environment Outcome: Progressing Goals: Clinical Goals for the Shift: pain control, comfort Summary: patient progressing toward set goals R LAB TECHNICIAN * Plan of Care - Lobo Martins RN - 06/12/2018 3:01 PM SOLAR LAB TECHNICIAN Problem: Health Behavior: Goal: Understanding of discharge needs will improve Outcome: Progressing Problem: Lack of Knowledge: Goal: Ability to develop a pain control plan will improve Outcome: Progressing Goal: Ability to identify pain intensity on a pain scale and rate it consistently will improve Outcome: Progressing Goal: Ability to notify healthcare provider of pain before it becomes unmanageable or unbearable will improve Outcome: Progressing Problem: Activity: Goal: Ability to perform activities at highest level will improve Outcome: Progressing Goal: Mobility will improve Outcome: Progressing Problem: Lack of Knowledge: Goal: Ability to verbalize activity precautions or restrictions will improve Outcome: Progressing Problem: Activity: Goal: Mobility will improve Outcome: Progressing Problem: Lack of Knowledge: Goal: Understanding of ways to prevent future skin breakdown will improve Outcome: Progressing Goal: Ability to identify appropriate dietary choices will improve Outcome: Progressing Problem: Nutritional: Goal: Dietary intake will improve Outcome: Progressing Goal: Ability to maintain a balanced intake and output will improve Outcome: Progressing Problem: Skin Integrity: Goal: Risk for impaired skin integrity will decrease Outcome: Progressing Goal: Ability to demonstrate warm and dry skin will improve Outcome: Progressing Goal: Circulation will improve to fullest extent possible Outcome: Progressing Problem: Lack of Knowledge: Goal: Ability to state ways to decrease the risk of falls will improve Outcome: Progressing Problem: Safety: Goal: Will remain free from falls Outcome: Progressing Goal: Will remain free from injury from falls Outcome: Progressing Goal: Will remain free from falls and injury in home environment Outcome: Progressing Goals: Clinical Goals for the Shift: pain control, comfort Summary: Pt progressing toward all goals. R LAB TECHNICIAN * Op Note - Flash Magaña MD - 06/12/2018 9:12 AM CST Date of Surgery: 06/12/2018 ?? INDICATIONS: Mr. Jain is a 48 y.o.-year-old male who sustained a right tibia fracture. Given theunstable nature of the fracture he was indicated for open reduction intramedullary nailing of his right tibia. The risks and benefits of the procedure discussed with the patient prior to the procedure and all questions were answered; consent was obtained. ?? PREOPERATIVE DIAGNOSIS: right tibia and fibula fracture (fracture type: comminuted; location: proximal shaft) ?? POSTOPERATIVE DIAGNOSIS: Same ?? PROCEDURE: right tibia open reduction internal fixation, intramedullary nailing ?? SURGEON: Flash Magaña MD ?? PORTRAIT STUDIO PHOTOGRAPHER: Narciso Friedman MD, Nito Mena MD ?? ANESTHESIA: general ?? IV FLUIDS AND URINE: See anesthesia record. ?? ESTIMATED BLOOD LOSS: 100 mL. ?? IMPLANTS: synthes 3.5 medial proximal tibia LCP, synthes tibia EX intramedullary nail (43l576 mm) with 4 proximal and 2 distal interlocking screws. ?? SPECIMENS: None. DRAINS: None. ?? COMPLICATIONS: None. ?? DESCRIPTION OF PROCEDURE: The patient was brought to the operating room and placed supine on the operating table. ??The patient's leg had been signed prior to the procedure and this was documented.The patient had the anesthesia placed by the anesthesiologist. ??The prep verification and incision time-outs were performed to confirm that this was the correct patient, site, side and location. The patient had an SCD on the opposite lower extremity. The patient did receive antibiotics prior to the incision and was redosed during the procedure as needed at indicated intervals. ??The patient had the lower extremity prepped and draped in the standard surgical fashion. ?? A reduction was now performed using closed manipulative reduction. A small medial incision was madeand a proximal tibia LCP was slid down the medial face of the proximal tibia in line with the shaft. Cortical screws were placed distally through a distal 3cm incision. Proximal locking screws were then placed.?The reduction was confirmed fluoroscopically in AP and lateral planes. ?Attention was then turned to the knee which was brought into approximately 20 degrees of flexion. ??A 3 cm longitudinal incision just lateral to the patella tendon. ??Dissection was performed with a scalpel to incise the paratenon and mobilize the patella tendon laterally. The fat pad was relected. ??A curvedawl was placed in line with the medial aspect of the lateral tibial spine and the anterior proximalaspect of the tibia. ??This was confirmed with biplanar fluoroscopy. ??The awl was seated and removed. The ball-tip guide guidewire was then passed through the starting point in the proximal tibia past the fracture site and into the center center position in the distal plafond. ??This was confirmedfluoroscopically again. A measuring device was then utilized to determine the length of the nail which was estimated at 34.5 cm. We now began reaming sequentially up to a size 13 reamer; excellent cortical chatter was obtained with this final reamer. ??Final reaming to accomodate the proximal nail diameter was performed as well. A synthes EX tibial nail size [id number] was then selected and brought onto the field and then seated into the tibia with care not to countersink the nail excessively whileachieving optimal proximal fixation??. ??We then confirmed the fracture alignment which was maintained in acceptable position. Attention was then turned distally as perfect pilot station technique was utilized to place 2 distal interlocking bolts in a medial to lateral fashion using a 15 blade as means ofa stab incision and then a tonsil to dissect bluntly to bone. Proximal interlocks were placed in standard fashion using stab incisions and the drill sleeve through the jig. ?The most distal transverse interlocking bolt was in fracture. Dual core screws were used for the AP and oblique proximal interlocks. Final hardware placement was confirmed fluoroscopically in the AP and lateral planes as well as the fracture reduction. The jig was removed from the nail and the knee was irrigated. The wounds were copiously irrigated with saline and then the deep layers closed with #1 vicryl [id number] interrupted sutures. 2-0 monocryl was used for the deep dermal layer. 3.0 nylon was then used tocomplete all skin closure in horizontal fashion. ??The wounds were cleaned and dried a final time and a sterile dressing (consisting of, Xeroform, 4 x 4s, and??webril??was placed. The patient was then wrapped from the foot up to the thigh in an Dennis wrap. The patient's calf was soft to palpation at the end of the case. ??The patient was then transferred to a bed and taken to the recovery room in stable condition. ??All counts were correct at the end of the case. I was present for the vanegas/critical portions of the case including the approach, reduction and implant applications and otherwise immediately available. ?? POSTOPERATIVE PLAN: Mr. Jain will be NWB and will return in three weeks for suture removal. Mr. Jain will receive DVT prophylaxis based on other medications, activity level, and risk ratio of bleeding to thrombosis per the primary team; if possible, we would prefer aspirin. R LAB TECHNICIAN * Brief Op Note - Rosendo Mena MD - 06/12/2018 9:12 AM CST Operative Progress Note Attending Surgeon: Flash Magaña MD Surgical Team: Director Of Media: Joelle Garvey RN; Sofia Randle RN Natural Resources Manager: Kirsten Gallegos RT Scrub: Leandro Paredes RN INTERPRETER AND TRANSLATOR: Morgan Pacheco NP DATE OF SURGERY : 06/12/2018 Preoperative Diagnosis: Pre-op Diagnosis * Closed displaced oblique fracture of shaft of right tibia, initial encounter [S82.231A] Postoperative Diagnosis: Post-op Diagnosis * Closed displaced oblique fracture of shaft of right tibia, initial encounter [S82.231A] Procedure: Procedure(s): INTRAMEDULLARY NAIL - TIBIAL Open Reduction Internal Fixation Tibia - Proximal - Synthes Operative Findings: Broken proximal third tibia and fibula Estimated Blood Loss: No blood loss documented. Intraoperative Fluids: Per anesthesia note mls Specimens: No specimen collected in procedure Implants: Implant Name Type Inv. Item Serial No. Electronic Induction Hardener Lot No. LRB No. Used SYNTHES 239.960 LCP COMBI 171MM 10 HOLE LIMIT CONTACT TIBIAL RIGHT PROXIMAL - [id number] Plate SYNTHES 239.960 LCP COMBI 171MM 10 HOLE LIMIT CONTACT TIBIAL RIGHT PROXIMAL Synthes Right 1 SYNTHES 204.824 3.5MM 6MM 24MM 2.5MM SELF TAP SMALL HEXAGONAL SOCKET LOW PROFILE - [id number] ScrewSYNTHES 204.824 3.5MM 6MM 24MM 2.5MM SELF TAP SMALL HEXAGONAL SOCKET LOW PROFILE Synthes Right 3 SYNTHES 212.121 3.5MM 2.9MM 50MM SELF TAP LOCK STARDRIVE CONICAL HEAD T15 FULL - [id number] Screw SYNTHES 212.121 3.5MM 2.9MM 50MM SELF TAP LOCK STARDRIVE CONICAL HEAD T15 FULL Synthes Right 2 SYNTHES 212.121 3.5MM 2.9MM 50MM SELF TAP LOCK STARDRIVE CONICAL HEAD T15 FULL - [id number] Screw SYNTHES 212.121 3.5MM 2.9MM 50MM SELF TAP LOCK STARDRIVE CONICAL HEAD T15 FULL Synthes Right 2 SYNTHES 04.034.649S EXPERT 12MM 345MM CANNULATED PROXIMAL BEND TIBIAL FLUTE NAIL - [id number] Nail SYNTHES 04.034.649S EXPERT 12MM 345MM CANNULATED PROXIMAL BEND TIBIAL FLUTE NAIL Synthes Right 1 SYNTHES 04.005.530 5MM 4.3MM 40MM LOCK SELF TAP BLUNT TIP 2 LEAD TIBIAL T25 FULL - [id number] [place] SYNTHES 04.005.530 5MM 4.3MM 40MM LOCK SELF TAP BLUNT TIP 2 LEAD TIBIAL T25 FULL Synthes Right 1 SYNTHES 04.015.555 5MM 8MM 65MM 2 CORE SELF TAP LOCK STARDRIVE TIBIAL T25 FULL - [id number] Screw SYNTHES 04.015.555 5MM 8MM 65MM 2 CORE SELF TAP LOCK STARDRIVE TIBIAL T25 FULL Synthes Right 1 SYNTHES 04.015.560 5MM 8MM 70MM 2 CORE SELF TAP LOCK STARDRIVE TIBIAL T25 FULL - [id number] Screw SYNTHES 04.015.560 5MM 8MM 70MM 2 CORE SELF TAP LOCK STARDRIVE TIBIAL T25 FULL Synthes Right 1 SYNTHES 04.015.575 5MM 8MM 85MM 2 CORE SELF TAP LOCK STARDRIVE TIBIAL T25 FULL - [id number] Screw SYNTHES 04.015.575 5MM 8MM 85MM 2 CORE SELF TAP LOCK STARDRIVE TIBIAL T25 FULL Synthes Right 1 SYNTHES 04.005.522 5MM 4.3MM 32MM LOCK SELF TAP BLUNT TIP 2 LEAD TIBIAL T25 FULL - [id number] [place] SYNTHES 04.005.522 5MM 4.3MM 32MM LOCK SELF TAP BLUNT TIP 2 LEAD TIBIAL T25 FULL Synthes Right 1 SYNTHES 04.005.528 5MM 4.3MM 38MM LOCK SELF TAP BLUNT TIP 2 LEAD TIBIAL T25 FULL - [id number] [place] SYNTHES 04.005.528 5MM 4.3MM 38MM LOCK SELF TAP BLUNT TIP 2 LEAD TIBIAL T25 FULL Synthes Right 1 Blood/Blood Products Transfused: none mls Complications: None Condition on Discharge from the operating room was stable Rosendo Mena MD Date: 06/12/2018 Time: 12:02 PM Cosigned by Flash Magaña MD at 06/13/2018 10:11 AM SOLAR LAB TECHNICIAN R LAB TECHNICIAN R LAB TECHNICIAN * Plan of Care - Avril Ma RN - 06/11/2018 11:30 PM CST Problem: Health Behavior: Goal: Understanding of discharge needs will improve Outcome: Progressing Problem: Lack of Knowledge: Goal: Ability to develop a pain control plan will improve Outcome: Progressing Goal: Ability to identify pain intensity on a pain scale and rate it consistently will improve Outcome: Progressing Goal: Ability to notify healthcare provider of pain before it becomes unmanageable or unbearable will improve Outcome: Progressing Problem: Activity: Goal: Ability to perform activities at highest level will improve Outcome: Progressing Goal: Mobility will improve Outcome: Progressing Problem: Lack of Knowledge: Goal: Ability to verbalize activity precautions or restrictions will improve Outcome: Progressing Problem: Activity: Goal: Mobility will improve Outcome: Progressing Problem: Lack of Knowledge: Goal: Understanding of ways to prevent future skin breakdown will improve Outcome: Progressing Goal: Ability to identify appropriate dietary choices will improve Outcome: Progressing Problem: Nutritional: Goal: Dietary intake will improve Outcome: Progressing Goal: Ability to maintain a balanced intake and output will improve Outcome: Progressing Problem: Skin Integrity: Goal: Risk for impaired skin integrity will decrease Outcome: Progressing Goal: Ability to demonstrate warm and dry skin will improve Outcome: Progressing Goal: Circulation will improve to fullest extent possible Outcome: Progressing Problem: Lack of Knowledge: Goal: Ability to state ways to decrease the risk of falls will improve Outcome: Progressing Problem: Safety: Goal: Will remain free from falls Outcome: Progressing Goal: Will remain free from injury from falls Outcome: Progressing Goal: Will remain free from falls and injury in home environment Outcome: Progressing Goals: Summary: patient progressing toward set goals R LAB TECHNICIAN * Plan of Care - Maritza Moss RN - 06/11/2018 2:50 PM SOLAR LAB TECHNICIAN Problem: Health Behavior: Goal: Understanding of discharge needs will improve Outcome: Progressing Problem: Lack of Knowledge: Goal: Ability to develop a pain control plan will improve Outcome: Progressing Goal: Ability to identify pain intensity on a pain scale and rate it consistently will improve Outcome: Progressing Goal: Ability to notify healthcare provider of pain before it becomes unmanageable or unbearable will improve Outcome: Progressing Problem: Activity: Goal: Ability to perform activities at highest level will improve Outcome: Progressing Goal: Mobility will improve Outcome: Progressing Problem: Lack of Knowledge: Goal: Ability to verbalize activity precautions or restrictions will improve Outcome: Progressing Goals: Admit to 6493A, pain control. Summary: Progressing R LAB TECHNICIAN * Op Note - Flash Magaña MD - 06/11/2018 2:28 PM CST Date of Surgery: 06/12/2018 INDICATIONS: Mr. Jian is a 48 y.o.-year-old male who sustained a right tibia fracture. Given theunstable nature of the fracture he was indicated for open reduction intramedullary nailing of his right tibia. The risks and benefits of the procedure discussed with the patient prior to the procedure and all questions were answered; consent was obtained. PREOPERATIVE DIAGNOSIS: right tibia and fibula fracture (fracture type: comminuted; location: proximal shaft) POSTOPERATIVE DIAGNOSIS: Same PROCEDURE: right tibia open reduction internal fixation, intramedullary nailing SURGEON: Flash Magaña MD PORTRAIT STUDIO PHOTOGRAPHER: Narciso Friedman MD, Nito Mena MD ANESTHESIA: general IV FLUIDS AND URINE: See anesthesia record. ESTIMATED BLOOD LOSS: 100 mL. IMPLANTS: synthes 3.5 medial proximal tibia LCP, synthes tibia EX intramedullary nail (72b730 mm) with 4 proximal and 2 distal interlocking screws. SPECIMENS: None. DRAINS: None. COMPLICATIONS: None. DESCRIPTION OF PROCEDURE: The patient was brought to the operating room and placed supine on the operating table. ??The patient's leg had been signed prior to the procedure and this was documented.The patient had the anesthesia placed by the anesthesiologist. ??The prep verification and incision time-outs were performed to confirm that this was the correct patient, site, side and location. The patient had an SCD on the opposite lower extremity. The patient did receive antibiotics prior to the incision and was redosed during the procedure as needed at indicated intervals. ??The patient had the lower extremity prepped and draped in the standard surgical fashion. ?? A reduction was now performed using closed manipulative reduction. A small medial incision was madeand a proximal tibia LCP was slid down the medial face of the proximal tibia in line with the shaft. Cortical screws were placed distally through a distal 3cm incision. Proximal locking screws were then placed. ??The reduction was confirmed fluoroscopically in AP and lateral planes. ?Attention was then turned to the knee which was brought into approximately 20 degrees of flexion. ??A 3 cm longitudinal incision just lateral to the patella tendon. Dissection was performed with a scalpel to incise the paratenon and mobilize the patella tendon laterally. The fat pad was relected. A curved awl was placed in line with the medial aspect of the lateral tibial spine and the anterior proximal aspect of the tibia. This was confirmed with biplanar fluoroscopy. The awl was seated and removed. The ball-tip guide guidewire was then passed through the starting point in the proximal tibia past the fracture site and into the center center position in the distal plafond. ??This was confirmed fluoroscopically again. A measuring device was then utilized to determine the length of the nail which was estimated at 34.5 cm. We now began reaming sequentially up to a size 13 reamer; excellent cortical chatter was obtained with this final reamer. ??Final reaming to accomodate the proximal nail diameter was performed as well. A synthes EX tibial nail size [id number] was then selected and brought onto the field and then seated into the tibia with care not to countersink the nail excessively while achieving optimal proximal fixation . ??We then confirmed the fracture alignment which was maintained in acceptable position. Attention was then turned distally as perfect pilot station technique was utilized to place 2 distal interlocking bolts in a medial to lateral fashion using a 15 blade as means of a stab incision and then a tonsil to dissect bluntly to bone. Proximal interlocks were placed in standard fashion using stab incisions and the drill sleeve through the jig. ?The most distal transverse interlocking bolt was in fracture. Dual core screws were used for the AP and oblique proximal interlocks.Final hardware placement was confirmed fluoroscopically in the AP and lateral planes as well as thefracture reduction. The jig was removed from the nail and the knee was irrigated. The wounds were co piously irrigated with saline and then the deep layers closed with #1 vicryl [id number] interrupted sutures. 2-0 monocryl was used for the deep dermal layer. 3.0 nylon was then used to complete all skin closure in horizontal fashion. ??The wounds were cleaned and dried a final time and a sterile dressing (consisting of, Xeroform, 4 x 4s, and??webril??was placed. The patient was then wrapped from the foot up to the thigh in an Dennis wrap. The patient's calf was soft to palpation at the end ofthe case. ??The patient was then transferred to a bed and taken to the recovery room in stable condition. ??All counts were correct at the end of the case. I was present for the vanegas/critical portionsof the case including the approach, reduction and implant applications and otherwise immediately available. POSTOPERATIVE PLAN: Mr. Jain will be NWB and will return in three weeks for suture removal. Mr. Jain will receive DVT prophylaxis based on other medications, activity level, and risk ratio of bleeding to thrombosis per the primary team; if possible, we would prefer aspirin. R LAB TECHNICIAN documented in this encounter Plan of Treatment Pending Results Name Type Priority Associated Diagnoses Date /Time Type and screen Lab STAT 9 2:19 AM SOLAR LAB TECHNICIAN Type and screen Lab STAT 9 2:19 AM SOLAR LAB TECHNICIAN Scheduled Orders Name Type Priority Associated Diagnoses Orde r Schedule XR Outside Reference Imaging Routine Once for 1 Occurrences starting 06/11/2018 until 06/11/2018, 1 completed XR Outside Reference Imaging Routine Once for 1 Occurrences starting 06/11/2018 until 06/11/2018, 1 completed XR Outside Reference Imaging Routine Once for 1 Occurrences starting 06/11/2018 until 06/11/2018, 1 completed documented as of this encounter Procedures Procedure Name Priority Date/Time Associated Diagnosis Comments CBC WITHOUT DIFFERENTIAL Routine 06/15/2018 12:44 AM CDT BASIC METABOLIC PANEL Routine 06/15/2018 12:44 AM CDT CBC WITHOUT DIFFERENTIAL Routine 06/13/2018 8:43 PM SOLAR LAB TECHNICIAN BASIC METABOLIC PANEL Routine 06/13/2018 8:43 PM SOLAR LAB TECHNICIAN CBC WITHOUT DIFFERENTIAL Routine 06/12/2018 9:05 PM SOLAR LAB TECHNICIAN BASIC METABOLIC PANEL Routine 06/12/2018 9:05 PM SOLAR LAB TECHNICIAN XR TIBIA FIBULA RIGHT2 VIEWS IP Routine 06/12/2018 11:51 AM SOLAR LAB TECHNICIAN FL FLUOROSCOPY < 1 HOUR IP Routine 06/12/2018 11:49 AM SOLAR LAB TECHNICIAN OPEN REDUCTION INTERNAL FIXATION TIBIA - PROXIMAL - SYNTHES 06/12/2018 8:29 AM SOLAR LAB TECHNICIAN Closed displaced oblique fracture of shaft of right tibia, initial encounter INTRAMEDULLARY NAIL - TIBIAL 06/12/2018 8:29 AM SOLAR LAB TECHNICIAN Closed displaced oblique fracture of shaft of right tibia, initial encounter TYPE AND SCREEN STAT 06/12/2018 2:[address] BODY OUTSIDE CONSULT ED Urgent/IP Urgent 06/11/2018 10:23 PM SOLAR LAB TECHNICIAN XR TRANSFER OF OUTSIDE FILMS Routine 06/11/2018 10:21 PM SOLAR LAB TECHNICIAN XR TRANSFER OF OUTSIDE FILMS Routine 06/11/2018 10:20 PM SOLAR LAB TECHNICIAN XR TRANSFER OF OUTSIDE FILMS Routine 06/11/2018 10:19 PM SOLAR LAB TECHNICIAN XR KNEE RIGHT 1 OR 2 VIEWS ED Urgent/IP Urgent 06/11/2018 8:11 PM SOLAR LAB TECHNICIAN XR TIBIA FIBULA RIGHT2 VIEWS ED Urgent/IP Urgent 06/11/2018 8:11 PM SOLAR LAB TECHNICIAN XR ANKLE RIGHT 3 OR MORE VIEWS ED Urgent/IP Urgent 06/11/2018 8:11 PM SOLAR LAB TECHNICIAN ANTIBODY IDENTIFICATION After X-Ray 06/11/2018 6:12 PM SOLAR LAB TECHNICIAN URINALYSIS AND REFLEX TO MICROSCOPIC AND CULTURE Routine 06/11/2018 4:46 PM SOLAR LAB TECHNICIAN URINALYSIS, MICROSCOPIC ONLY Routine 06/11/2018 4:46 PM SOLAR LAB TECHNICIAN URINE CULTURE Routine Gen Lab 06/11/2018 4:46 PM SOLAR LAB TECHNICIAN DIFFERENTIAL AUTO STAT 06/11/2018 4:3 5 PM SOLAR LAB TECHNICIAN B K ANTIGEN TYPE Timed 06/11/2018 4:35 PM SOLAR LAB TECHNICIAN CBC WITH AUTO DIFFERENTIAL STAT 06/11/2018 4:35 PM SOLAR LAB TECHNICIAN APTT STAT 06/11/2018 4:35 PM SOLAR LAB TECHNICIAN PROTIME-INR STAT 06/11/2018 4:35 PM SOLAR LAB TECHNICIAN TYPE AND SCREEN Timed 06/11/2018 4:35 PM SOLAR LAB TECHNICIAN CARBAMAZEPINE LEVEL, TOTAL Timed 06/11/2018 4:35 PM SOLAR LAB TECHNICIAN BASIC METABOLIC PANEL Timed 06/11/2018 4:35 PM SOLAR LAB TECHNICIAN PREPARE RBC Timed 06/11/2018 4:22 PM SOLAR LAB TECHNICIAN documented in this encounter Results * (ABNORMAL) CBC without differential (06/15/2018 12:44 AM CDT) [facility] WBC 7.8 3.8 - 9.9 K/cumm [facility] Hgb 10.2(L) 13.0 - 17.5 g/dL [facility] Hct 30.6(L) 38.9 - 50.3 % [facility] Plt 197 150 - 400 K/cumm [facility] MPV 9.8 9.1 - 12.3 fL [facility] RBC 3.28(L) 4.30 - 5.80 M/cumm [facility] MCV 93.3 81.3 - 96.4 fL [facility] MCH 31.1 27.1 - 33.3 pg [facility] MCHC 33.3 32.3 - 35.7 g/dL [facility] RDW CV 12.2 11.1 - 14.9 % [facility] RDW SD 41.8 35.7 - 48.1 fL [facility] NRBC abs 0.00 0.00 - 0.01 K/cumm [facility] Blood specimen (specimen) 06/15/2018 12:44 AM CDT 06/15/2018 1:22 AM CDT Narrative [facility] - 06/15/2018 1:33 AM CDT Flash Magaña MD LAB BLOOD ORDERABL ES Final Result Performing Organization Address City/[facility]/ZIP Co de Phone Number [facility] [place] [address] * (ABNORMAL) Basic metabolic panel (06/15/2018 12:44 AM CDT) [facility] Sodium 137 135 - 145 mmol/L [facility] Potassium, pl 4.2 3.3 - 4.9 mmol/L [facility] Chloride 101 97 - 110 mmol/L [facility] CO2 29 22 - 32 mmol/L [facility] Anion gap 7 2 - 15 mmol/L [facility] BUN 12 8 - 25 mg/dL [facility] Creatinine 0.78(L) 0.80 - 1.30 mg/dL [facility] Glucose 131 70 - 199 mg/dL [facility] Comment: Interpretive Data Fasting glucose >/= 126 [...] Current interpretive data was last revised 2017. Calcium 8.5 8.5 - 10.3 mg/dL [facility] Blood specimen (specimen) 06/15/2018 12:44 AM CDT 06/15/2018 1:22 AM CDT Narrative [facility] - 06/15/2018 1:56 AM CDT Flash Magaña MD LAB BLOOD ORDERABL ES Final Result Performing Organization Address City/[facility]/ZIP Co de Phone Number [facility] [place] [address] * (ABNORMAL) CBC without differential (06/13/2018 8:43 PM SOLAR LAB TECHNICIAN) [facility] WBC 8.1 3.8 - 9.9 K/cumm [facility] Hgb 10.8(L) 13.0 - 17.5 g/dL [facility] Hct 32.3(L) 38.9 - 50.3 % [facility] Plt 180 150 - 400 K/cumm [facility] MPV 9.4 9.1 - 12.3 fL [facility] RBC 3.52(L) 4.30 - 5.80 M/cumm [facility] MCV 91.8 81.3 - 96.4 fL [facility] MCH 30.7 27.1 - 33.3 pg [facility] MCHC 33.4 32.3 - 35.7 g/dL [facility] RDW CV 12.6 11.1 - 14.9 % [facility] RDW SD 42.1 35.7 - 48.1 fL [facility] NRBC abs 0.00 0.00 - 0.01 K/cumm [facility] Blood specimen (specimen) 06/13/2018 8:43 PM SOLAR LAB TECHNICIAN 06/13/2018 8:59 PM SOLAR LAB TECHNICIAN Narrative [facility] - 06/13/2018 9:07 PM SOLAR LAB TECHNICIAN Flash Magaña MD LAB BLOOD ORDERABL ES Final Result [facility] [place] [address] * Basic metabolic panel (06/13/2018 8:43 PM SOLAR LAB TECHNICIAN) [facility] Sodium 139 135 - 145 mmol/L [facility] Potassium, pl 4.0 3.3 - 4.9 mmol/L [facility] Chloride 100 97 - 110 mmol/L [facility] CO2 30 22 - 32 mmol/L [facility] Anion gap 9 2 - 15 mmol/L [facility] BUN 8 8 - 25 mg/dL [facility] Creatinine 0.80 0.80 - 1.30 mg/dL [facility] Glucose 138 70 - 199 mg/dL [facility] Comment: Interpretive Data Fasting glucose >/= 126 [...] Current interpretive data was last revised 2017. Calcium 8.6 8.5 - 10.3 mg/dL [facility] Blood specimen (specimen) 06/13/2018 8:43 PM SOLAR LAB TECHNICIAN 06/13/2018 8:59 PM SOLAR LAB TECHNICIAN Narrative [facility] - 06/13/2018 9:23 PM SOLAR LAB TECHNICIAN Flash Magaña MD LAB BLOOD ORDERABL ES Final Result [facility] [place] [address] * (ABNORMAL) CBC without differential (06/12/2018 9:05 PM SOLAR LAB TECHNICIAN) WBC 5.6 3.8 - 9.9 K/cumm [facility] Hgb 11.3(L) 13.0 - 17.5 g/dL [facility] Hct 34.5(L) 38.9 - 50.3 % [facility] Plt 166 150 - 400 K/cumm [facility] MPV 9.8 9.1 - 12.3 fL [facility] RBC 3.72(L) 4.30 - 5.80 M/cumm [facility] MCV 92.7 81.3 - 96.4 fL [facility] [place] MCH 30.4 27.1 - 33.3 pg [facility] MCHC 32.8 32.3 - 35.7 g/dL [facility] RDW CV 12.7 11.1 - 14.9 % [facility] RDW SD 43.1 35.7 - 48.1 fL [facility] NRBC abs 0.00 0.00 - 0.01 K/cumm [facility] Blood specimen (specimen) 06/12/2018 9:05 PM SOLAR LAB TECHNICIAN 06/12/2018 9:43 PM SOLAR LAB TECHNICIAN Narrative [facility] - 06/12/2018 9:53 PM SOLAR LAB TECHNICIAN Flash Magaña MD LAB BLOOD ORDERABL ES Final Result [facility] [place] [address] * Basic metabolic panel (06/12/2018 9:05 PM SOLAR LAB TECHNICIAN) Sodium 140 135 - 145 mmol/L [facility] Potassium, pl 4.1 3.3 - 4.9 mmol/L [facility] Chloride 103 97 - 110 mmol/L [facility] CO2 31 22 - 32 mmol/L [facility] Anion gap 6 2 - 15 mmol/L [facility] BUN 10 8 - 25 mg/dL [facility] Creatinine 1.00 0.80 - 1.30 mg/dL [facility] Glucose 126 70 - 199 mg/dL [facility] Comment: Interpretive Data Fasting glucose >/= 126 [...] Current interpretive data was last revised 2017. Calcium 8.9 8.5 - 10.3 mg/dL [facility] Blood specimen (specimen) 06/12/2018 9:05 PM SOLAR LAB TECHNICIAN 06/12/2018 9:43 PM SOLAR LAB TECHNICIAN Narrative [facility] - 06/12/2018 10:12 PM SOLAR LAB TECHNICIAN Flash Magaña MD LAB BLOOD ORDERABL ES Final Result [facility] [place] [address] * XR Tibia Fibula Right 2 Views (06/12/2018 11:51 AM SOLAR LAB TECHNICIAN) Anatomical Region Laterality Modality Lower Extremities, Lower Leg Right Com puted Radiography 06/12/2018 11:5 3 AM SOLAR LAB TECHNICIAN Impressions 06/12/2018 11:53 AM SOLAR LAB TECHNICIAN 1. ??Interval open reduction, internal fixation, and intramedullary nailing of a comminuted right proximal tibial shaft fracture with near-anatomic alignment. 2. ??Mildly distracted right proximal fibular shaft fracture. Electronically signed by: Nicola Faustin M.D. Narrative 06/12/2018 11:53 AM SOLAR LAB TECHNICIAN EXAMINATION: Right tibia and fibula minimum 2 views HISTORY: Right tibial and fibular fractures FINDINGS: 4 exposures of the right tibia and fibula were obtained and compared to prior exam from 06/11/2018. ??There has been interval open reduction, internal fixation, and intramedullary nailing of a comminuted right proximal tibial shaft fracture. ??There is near-anatomic alignment of the fracture fragments. ??There is also a mildly distracted right proximal fibular shaft fracture. ??There is partially visualized intramedullary nailing of the right femur. There is soft tissue swelling. Procedure Note Nicola Faustin MD - 06/12/2018 EXAMINATION: Right tibia and fibula minimum 2 views HISTORY: Right tibial and fibular fractures FINDINGS: 4 exposures of the right tibia and fibula were obtained and compared to prior exam from 06/11/2018. There has been interval open reduction, internal fixation, and intramedullary nailing of a comminuted right proximal tibial shaft fracture. There is near-anatomic alignment of the fracture fragments. There is also a mildly distracted right proximal fibular shaft fracture. There is partially visualized intramedullary nailing of the right femur. There is soft tissue swelling. IMPRESSION: 1. Interval open reduction, internal fixation, and intramedullary nailing of a comminuted right proximal tibial shaft fracture with near-anatomic alignment. 2. Mildly distracted right proximal fibular shaft fracture. Electronically signed by: Nicola Faustin M.D. us Flash Magaña MD IMG XR PROCEDURES Final Result * FL Fluoroscopy < 1 Hour (06/12/2018 11:49 AM SOLAR LAB TECHNICIAN) Narrative [facility] - 06/12/2018 11:50 AM SOLAR LAB TECHNICIAN The images from this study are not interpreted by Radiology. ??Please refer to the physician's procedure / OR operative note. us Flash Magaña MD IMG FLUOROSCOPY VT OCEDURES Final Result [facility] * CT Body Outside Consult (06/11/2018 10:23 PM SOLAR LAB TECHNICIAN) Anatomical Region Laterality Modality Body N/A Computed Tomogra phy 06/12/2018 11:5 3 AM SOLAR LAB TECHNICIAN Impressions 06/12/2018 12:32 PM SOLAR LAB TECHNICIAN 1. ??Partly reduced comminuted extra-articular right proximal tibial shaft fracture and transverse extra-articular right proximal fibular fracture. 2. ??Healed, nailed right distal femur shaft fracture. The findings, conclusions and recommendations within this report do not replace the initial findings, conclusions ??and recommendations made at the facility where the study was performed based upon the imaging and clinical condition at that time. ??Comparison with the prior report and clinical history is necessary. ??The provided images may or may not represent the [place] source data set and thus may contain changes that may lower the accuracy of this second-opinion interpretation. Dictated by: Mayito Florence M.D. Electronically signed by: Lobo Morales M.D. Narrative 06/12/2018 12:32 PM SOLAR LAB TECHNICIAN EXAMINATION: RADIOLOGY CONSULTATION ON OUTSIDE IMAGING STUDY STUDY INITIALLY PERFORMED: 06/11/2018 at [facility]. TYPE OF STUDY: Multiple CT images of the right knee without intravenous or intra-articular contrast are provided at the time of this interpretation. The protocol was adequate to address the clinical question. The outside final report was not available at the time of this second opinion interpretation. DATE OF CONSULTATION: 06/12/2018 9:54 AM HISTORY: Right proximal tibial and fibula shaft fractures, acute FINDINGS: Comparison is made to outside facility right knee and right tibia-fibula radiographs performed 06/11/2018. There is a healed, nailed right distal femoral fracture. ??There is a comminuted, extra articular fracture of the proximal one-third of the right tibial shaft with a posterior butterfly fragment and mild lateral displacement of the distal fracture fragment. ??Since the comparison radiographs, angulation of this fracture has been reduced. There is an extra-articular, transverse fracture of the proximal 3rd of the fibula with mild lateral displacement of the distal fracture fragment. There is mild heterotopic ossification in the distal quadriceps tendon. ??There is a small Machado's cyst and a small effusion in the knee joint. There is severe fatty atrophy of the semimembranosus muscle and within the anterior compartment of the leg. ?? Procedure Note Lobo Morales MD - 06/12/2018 EXAMINATION: RADIOLOGY CONSULTATION ON OUTSIDE IMAGING STUDY STUDY INITIALLY PERFORMED: 06/11/2018 at [facility]. TYPE OF STUDY: Multiple CT images of the right knee without intravenous or intra-articular contrast are provided at the time of this interpretation. The protocol was adequate to address the clinical question. The outside final report was not available at the time of this second opinion interpretation. DATE OF CONSULTATION: 06/12/2018 9:54 AM HISTORY: Right proximal tibial and fibula shaft fractures, acute FINDINGS: Comparison is made to outside facility right knee and right tibia-fibula radiographs performed 06/11/2018. There is a healed, nailed right distal femoral fracture. There is a comminuted, extra articular fracture of the proximal one-third of the right tibial shaft with a posterior butterfly fragment and mild lateral displacement of the distal fracture fragment. Since the comparison radiographs, angulation of this fracture has been reduced. There is an extra-articular, transverse fracture of the proximal 3rd of the fibula with mild lateral displacement of the distal fracture fragment. There is mild heterotopic ossification in the distal quadriceps tendon. There is a small Machado's cyst and a small effusion in the knee joint. There is severe fatty atrophy of the semimembranosus muscle and within the anterior compartment of the leg. IMPRESSION: 1. Partly reduced comminuted extra-articular right proximal tibial shaft fracture and transverse extra-articular right proximal fibular fracture. 2. Healed, nailed right distal femur shaft fracture. The findings, conclusions and recommendations within this report do not replace the initial findings, conclusions and recommendations made at the facility where the study was performed based upon the imaging and clinical condition at that time. Comparison with the prior report and clinical history is necessary. The provided images may or may not represent the [place] source data set and thus may contain changes that may lower the accuracy of this second-opinion interpretation. Dictated by: Mayito Florence M.D. Electronically signed by: Lobo Morales M.D. Rosendo Sapp Jr., MD IMG CT PROCEDURES F inal Result * XR Outside Reference (06/11/2018 10:21 PM SOLAR LAB TECHNICIAN) Impressions [facility] - 06/11/2018 10:21 PM SOLAR LAB TECHNICIAN These images are for Reference purposes only and have not been reviewed by [facility] Radiology. ??There will be no report generated by a [facility] Radiologist. Narrative [facility] - 06/11/2018 10:21 PM SOLAR LAB TECHNICIAN EXAMINATION: ??Images For Reference Purposes Only Rosendo Sapp Jr., MD IMG XR PROCEDURES F inal Result Performing Organization Address [facility] de Phone Number [facility] * XR Outside Reference (06/11/2018 10:20 PM SOLAR LAB TECHNICIAN) Impressions [facility] - 06/11/2018 10:20 PM SOLAR LAB TECHNICIAN These images are for Reference purposes only and have not been reviewed by [facility] Radiology. ??There will be no report generated by a [facility] Radiologist. Narrative [facility] - 06/11/2018 10:20 PM SOLAR LAB TECHNICIAN EXAMINATION: ??Images For Reference Purposes Only Rosendo Sapp Jr., MD IMG XR PROCEDURES F inal Result Performing Organization Address [facility] de Phone Number [facility] * XR Outside Reference (06/11/2018 10:19 PM SOLAR LAB TECHNICIAN) Impressions [facility] - 06/11/2018 10:19 PM SOLAR LAB TECHNICIAN These images are for Reference purposes only and have not been reviewed by [facility] Radiology. ??There will be no report generated by a [facility] Radiologist. Narrative [facility] - 06/11/2018 10:19 PM SOLAR LAB TECHNICIAN EXAMINATION: ??Images For Reference Purposes Only us Rosendo Sapp Jr., MD IMG XR PROCEDURES F inal Result [facility] * XR Knee Right 1 or 2 Views (06/11/2018 8:11 PM SOLAR LAB TECHNICIAN) Anatomical Region Laterality Modality Lower Extremities, Knee Right Computed Radiography 06/12/2018 6:24 AM SOLAR LAB TECHNICIAN Impressions 06/12/2018 6:24 AM SOLAR LAB TECHNICIAN 1. ??Mildly displaced and angulated proximal right fibular and comminuted proximal right tibia fractures. Electronically signed by: Angus Teresa M.D. Narrative 06/12/2018 6:24 AM SOLAR LAB TECHNICIAN EXAMINATION: 1. ??Right knee one or 2 views 2. Right tibia fibula 2 views 3. Right ankle 3+ views HISTORY: ??Right tibia fibula fractures FINDINGS: 2 views right knee, 2 views right tibia fibula, and 3 views right ankle nonweightbearing submitted without side comparison 06/11/2018. Right knee/tibia fibula: There is a comminuted, extra-articular proximal right tibia fracture with one cortex width lateral displacement and apex posterior lateral angulation. Similarly, there is a mildly displaced posterior angulated proximal right fibular fracture. 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 Nailed, likely healed distal right femur fracture is incompletely evaluated. Right ankle: The ankle joint space and mortise are normal. There is no evidence of an ankle effusion. Dorsal talar spur formation is present. Achilles enthesophyte and small plantar calcaneal spur are present. There is mild soft tissue swelling involving the right leg. Procedure Note Angus Teresa MD - 06/12/2018 EXAMINATION: 1. Right knee one or 2 views 2. Right tibia fibula 2 views 3. Right ankle 3+ views HISTORY: Right tibia fibula fractures FINDINGS: 2 views right knee, 2 views right tibia fibula, and 3 views right ankle nonweightbearing submitted without side comparison 06/11/2018. Right knee/tibia fibula: There is a comminuted, extra-articular proximal right tibia fracture with one cortex width lateral displacement and apex posterior lateral angulation. Similarly, there is a mildly displaced posterior angulated proximal right fibular fracture. 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 Nailed, likely healed distal right femur fracture is incompletely evaluated. Right ankle: The ankle joint space and mortise are normal. There is no evidence of an ankle effusion. Dorsal talar spur formation is present. Achilles enthesophyte and small plantar calcaneal spur are present. There is mild soft tissue swelling involving the right leg. IMPRESSION: 1. Mildly displaced and angulated proximal right fibular and comminuted proximal right tibia fractures. Electronically signed by: Angus Teresa M.D. Phan Mario Magaña MD IMG XR PROCEDURES Final Result * XR Tibia Fibula Right 2 Views (06/11/2018 8:11 PM SOLAR LAB TECHNICIAN) Anatomical Region Laterality Modality Lower Extremities, Lower Leg Right Com puted Radiography 06/12/2018 6:24 AM SOLAR LAB TECHNICIAN Impressions 06/12/2018 6:24 AM SOLAR LAB TECHNICIAN 1. ??Mildly displaced and angulated proximal right fibular and comminuted proximal right tibia fractures. Electronically signed by: Angus Teresa M.D. Narrative 06/12/2018 6:24 AM SOLAR LAB TECHNICIAN EXAMINATION: 1. ??Right knee one or 2 views 2. Right tibia fibula 2 views 3. Right ankle 3+ views HISTORY: ??Right tibia fibula fractures FINDINGS: 2 views right knee, 2 views right tibia fibula, and 3 views right ankle nonweightbearing submitted without side comparison 06/11/2018. Right knee/tibia fibula: There is a comminuted, extra-articular proximal right tibia fracture with one cortex width lateral displacement and apex posterior lateral angulation. Similarly, there is a mildly displaced posterior angulated proximal right fibular fracture. 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 Nailed, likely healed distal right femur fracture is incompletely evaluated. Right ankle: The ankle joint space and mortise are normal. There is no evidence of an ankle effusion. Dorsal talar spur formation is present. Achilles enthesophyte and small plantar calcaneal spur are present. There is mild soft tissue swelling involving the right leg. Procedure Note Angus Teresa MD - 06/12/2018 EXAMINATION: 1. Right knee one or 2 views 2. Right tibia fibula 2 views 3. Right ankle 3+ views HISTORY: Right tibia fibula fractures FINDINGS: 2 views right knee, 2 views right tibia fibula, and 3 views right ankle nonweightbearing submitted without side comparison 06/11/2018. Right knee/tibia fibula: There is a comminuted, extra-articular proximal right tibia fracture with one cortex width lateral displacement and apex posterior lateral angulation. Similarly, there is a mildly displaced posterior angulated proximal right fibular fracture. 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 Nailed, likely healed distal right femur fracture is incompletely evaluated. Right ankle: The ankle joint space and mortise are normal. There is no evidence of an ankle effusion. Dorsal talar spur formation is present. Achilles enthesophyte and small plantar calcaneal spur are present. There is mild soft tissue swelling involving the right leg. IMPRESSION: 1. Mildly displaced and angulated proximal right fibular and comminuted proximal right tibia fractures. Electronically signed by: Angus Teresa M.D. Flash Magaña MD IMG XR PROCEDURES Final Result * XR Ankle Right 3 or More Views (06/11/2018 8:11 PM SOLAR LAB TECHNICIAN) Anatomical Region Laterality Modality Lower Extremities, Ankle Right Compute d Radiography 06/12/2018 6:24 AM SOLAR LAB TECHNICIAN Impressions 06/12/2018 6:24 AM SOLAR LAB TECHNICIAN 1. ??Mildly displaced and angulated proximal right fibular and comminuted proximal right tibia fractures. Electronically signed by: Angus Teresa M.D. Narrative 06/12/2018 6:24 AM SOLAR LAB TECHNICIAN EXAMINATION: 1. ??Right knee one or 2 views 2. Right tibia fibula 2 views 3. Right ankle 3+ views HISTORY: ??Right tibia fibula fractures FINDINGS: 2 views right knee, 2 views right tibia fibula, and 3 views right ankle nonweightbearing submitted without side comparison 06/11/2018. Right knee/tibia fibula: There is a comminuted, extra-articular proximal right tibia fracture with one cortex width lateral displacement and apex posterior lateral angulation. Similarly, there is a mildly displaced posterior angulated proximal right fibular fracture. 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 Nailed, likely healed distal right femur fracture is incompletely evaluated. Right ankle: The ankle joint space and mortise are normal. There is no evidence of an ankle effusion. Dorsal talar spur formation is present. Achilles enthesophyte and small plantar calcaneal spur are present. There is mild soft tissue swelling involving the right leg. Procedure Note Angus Teresa MD - 06/12/2018 EXAMINATION: 1. Right knee one or 2 views 2. Right tibia fibula 2 views 3. Right ankle 3+ views HISTORY: Right tibia fibula fractures FINDINGS: 2 views right knee, 2 views right tibia fibula, and 3 views right ankle nonweightbearing submitted without side comparison 06/11/2018. Right knee/tibia fibula: There is a comminuted, extra-articular proximal right tibia fracture with one cortex width lateral displacement and apex posterior lateral angulation. Similarly, there is a mildly displaced posterior angulated proximal right fibular fracture. 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 Nailed, likely healed distal right femur fracture is incompletely evaluated. Right ankle: The ankle joint space and mortise are normal. There is no evidence of an ankle effusion. Dorsal talar spur formation is present. Achilles enthesophyte and small plantar calcaneal spur are present. There is mild soft tissue swelling involving the right leg. IMPRESSION: 1. Mildly displaced and angulated proximal right fibular and comminuted proximal right tibia fractures. Electronically signed by: Angus Teresa M.D. [facility] Mario Magaña MD [facility] [place] PROCEDURES Final Result * Antibody identification (06/11/2018 6:12 PM SOLAR LAB TECHNICIAN) Antibody ID 1 Anti-K [facility] Blood specimen (specimen) 06/11/2018 6:12 PM SOLAR LAB TECHNICIAN 06/11/2018 6:12 PM SOLAR LAB TECHNICIAN Narrative [facility] - 06/11/2018 6:57 PM SOLAR LAB TECHNICIAN Felicia Quiñones NP LAB BLOOD BANK TEST ORDERA BLES Final Result Performing Organization Address [facility] Co de Phone Number [facility] [place] [address] * (ABNORMAL) Urine culture Urine (06/11/2018 4:46 PM SOLAR LAB TECHNICIAN) Report Final Report: Greater than or equal to 100,000 colonies/mL of Klebsiella pneumoniae (.) [facility] Organism KLEBSIELLA PNEUMONIAE [facility] Urine 06/11/2018 4:46 PM SOLAR LAB TECHNICIAN 06/11/2018 6:20 PM SOLAR LAB TECHNICIAN Narrative [facility] - 06/12/2018 12:44 PM SOLAR LAB TECHNICIAN Urine culture reflexed based upon urinalysis results. Testing performed by [facility] ([phone]) Organism Antibiotic Method Susceptibility Klebsiella pneumoniae Ampicillin INTERPRETATION Resistant Klebsiella pneumoniae Cefazolin INTERPRETATION Susceptible Klebsiella pneumoniae Nitrofurantoin INTERPRETATION Susceptible Klebsiella pneumoniae Gentamicin INTERPRETATION Susceptible Klebsiella pneumoniae Trimethoprim with Sulfamethoxazole INTERPRETATION Susceptible Klebsiella pneumoniae Meropenem INTERPRETATION Susceptible Klebsiella pneumoniae Cefepime INTERPRETATION Susceptible Klebsiella pneumoniae Ciprofloxacin INTERPRETATION Susceptible Klebsiella pneumoniae Ceftazidime INTERPRETATION Susceptible Klebsiella pneumoniae Ceftriaxone INTERPRETATION Susceptible Klebsiella pneumoniae Piperacillin/Tazobactam INTERPRE TATION Susceptible Klebsiella pneumoniae Cephalexin INTERPRETATION Susceptible Klebsiella pneumoniae Cefuroxime-axetil INTERPRETATION Susceptible Klebsiella pneumoniae Cefdinir INTERPRETATION Susceptible Felicia Quiñones NP LAB MICROBIOLOGY - GENERAL ORDERABLES Final Result Performing Organization Address City/[facility]/ZIP Co de Phone Number [facility] [place] [address] * (ABNORMAL) Urinalysis, microscopic only (06/11/2018 4:46 PM SOLAR LAB TECHNICIAN) WBC, ur 21-50(A) 0 - 5 /HPF [facility] RBC, ur 0-2 0 - 2 /HPF [facility] Epithelial cells, squamous, ur 1-5 0 - 5 /HPF [facility] Bacteria, ur 4+(A) [facility] Mucous, ur Present(A) [facility] Urine 06/11/2018 4:46 PM SOLAR LAB TECHNICIAN 06/11/2018 5:25 PM SOLAR LAB TECHNICIAN Narrative [facility] - 06/11/2018 6:05 PM SOLAR LAB TECHNICIAN Felicia Quiñones NP LAB URINE ORDERABLES Final Result [facility] [place] [address] * (ABNORMAL) Urinalysis reflex to microscopic and culture Urine (06/11/2018 4:46 PM SOLAR LAB TECHNICIAN) Color, ur Yellow Yellow [facility] Clarity, ur Cloudy(A) Clear [facility] Specific gravity, ur 1.020 1.010 - 1.025 [facility] pH, urine 6.0 [facility] Protein, ur ql 1+(A) Negative [facility] Glucose, ur ql Negative Negative [facility] Ketones, ur Negative Negative [facility] Bilirubin, ur Negative Negative [facility] Blood, ur Negative Negative [facility] Comment:Ascorbic acid identi fied in urine; possible false negative blood result. A microscopic exam will be added to identify RBCs. Urobilinogen, ur <2.0 <2.0 mg/dL [facility] Nitrite, ur Positive(A) Negative [facility] Leukocyte esterase, ur 2+(A) Negative [facility] Urine 06/11/2018 4:46 PM SOLAR LAB TECHNICIAN 06/11/2018 5:25 PM SOLAR LAB TECHNICIAN Narrative [facility] - 06/11/2018 5:49 PM SOLAR LAB TECHNICIAN ?? Urine pH is affected by diet, medications, systemic acid-base disturbances, and renal tubular function. ??pH may affect urinary stone formation. ??For example, urine pH below 6.0 may help reduce the tendency for calcium phosphate stones and pH greater than 6.0 may reduce the tendency for uric acid stone formation. Source: [email or web address]. Last revised 04-17-2017 Felicia Quiñones DIRECTOR OF VOL[employer]TEER SERVICES LAB MICROBIOLOGY - GENERAL ORDERABLES Final Result Performing Organization Address City/[facility]/ZIP Co de Phone Number [facility] [place] [address] * B K Antigen Type (06/11/2018 4:35 PM SOLAR LAB TECHNICIAN) Pathologist [facility] RBC K ag Negative [facility] Blood specimen (specimen) 06/11/2018 4:35 PM SOLAR LAB TECHNICIAN 06/11/2018 5:28 PM SOLAR LAB TECHNICIAN Narrative [facility] - 06/11/2018 7:45 PM SOLAR LAB TECHNICIAN Flash Magaña MD LAB BLOOD ORDERABL ES Final Result Performing Organization Address [facility] Center/[facility] Co de Phone Number [facility] [place] [address] * (ABNORMAL) Basic metabolic panel (06/11/2018 4:35 PM SOLAR LAB TECHNICIAN) [facility] Sodium 139 135 - 145 mmol/L [facility] Potassium, pl 4.6 3.3 - 4.9 mmol/L [facility] Comment:Hemolyzed; (++); pot assium value may be falsely elevated by as much as 0.3 - 0.5 mmol/L. Suggest redraw and reanalysis. Chloride 106 97 - 110 mmol/L [facility] CO2 25 22 - 32 mmol/L [facility] Anion gap 8 2 - 15 mmol/L [facility] BUN 10 8 - 25 mg/dL [facility] Creatinine 0.71(L) 0.80 - 1.30 mg/dL [facility] Glucose 96 70 - 199 mg/dL [facility] Comment: Interpretive Data Fasting glucose >/= 126 [...] Current interpretive data was last revised 2017. Calcium 8.7 8.5 - 10.3 mg/dL [facility] Blood specimen (specimen) 06/11/2018 4:35 PM SOLAR LAB TECHNICIAN 06/11/2018 5:32 PM SOLAR LAB TECHNICIAN Narrative [facility] - 06/11/2018 6:22 PM SOLAR LAB TECHNICIAN Flash Magaña MD LAB BLOOD ORDERABL ES Final Result [facility] [place] [address] * (ABNORMAL) Differential, auto (06/11/2018 4:35 PM SOLAR LAB TECHNICIAN) Neutrophil abs 4.4 1.7 - 6.5 K/cumm [facility] Imm gran abs 0.0 0.0 - 0.1 K/cumm [facility] Lymphocyte abs 0.6(L) 0.8 - 3.3 K/cumm [facility] Monocyte abs 0.4 0.2 - 0.8 K/cumm [facility] Eosinophil abs 0.0 0.0 - 0.5 K/cumm [facility] Basophil abs 0.0 0.0 - 0.1 K/cumm [facility] Neutrophil pct 80.4 % [facility] Comment: Interpretive Data Percent cell count reference ranges are not reported, since discordance with absolute values may lead to misinterpretation of CBC data. Current Interpretive Data was last revised on 2017. Imm gran pct 0.7 % [facility] Comment: Interpretive Data Percent cell count reference ranges are not reported, since discordance with absolute values may lead to misinterpretation of CBC data. Current Interpretive Data was last revised on 2017. Lymphocyte pct 10.9 % [facility] Comment: Interpretive Data Percent cell count reference ranges are not reported, since discordance with absolute values may lead to misinterpretation of CBC data. Current Interpretive Data was last revised on 2017. Monocyte pct 7.4 % [facility] Comment: Interpretive Data Percent cell count reference ranges are not reported, since discordance with absolute values may lead to misinterpretation of CBC data. Current Interpretive Data was last revised on 2017. Eosinophil pct 0.4 % [facility] Comment: Interpretive Data Percent cell count reference ranges are not reported, since discordance with absolute values may lead to misinterpretation of CBC data. Current Interpretive Data was last revised on 2017. Basophil pct 0.2 % [facility] Comment: Interpretive Data Percent cell count reference ranges are not reported, since discordance with absolute values may lead to misinterpretation of CBC data. Current Interpretive Data was last revised on 2017. Blood specimen (specimen) 06/11/2018 4:35 PM SOLAR LAB TECHNICIAN 06/11/2018 5:36 PM SOLAR LAB TECHNICIAN N[facility]ative [facility] - 06/11/2018 5:45 PM SOLAR LAB TECHNICIAN Felicia Quiñones NP LAB BLOOD ORDERABLES Final Result Performing Organization Address City/[facility]/ZIP Co de Phone Number [facility] [place] [address] * Carbamazepine level, total (06/11/2018 4:35 PM SOLAR LAB TECHNICIAN) [facility] Carbamazepine 7.2 3.0 - 12.0 mcg/mL [facility] Comment: Interpretive Data Therapeutic or Toxic effect of anticonvulsant drugs may occur at different concentrations in different patients and the correlation between dose and clinical effect must be evaluated individually. Current interpretive data was last revised on 13. Blood specimen (specimen) 06/11/2018 4:35 PM SOLAR LAB TECHNICIAN 06/11/2018 5:32 PM SOLAR LAB TECHNICIAN Narrative [facility] - 06/11/2018 6:22 PM SOLAR LAB TECHNICIAN Felicia Quiñones NP LAB BLOOD ORDERABLES Final Result Performing Organization Address City/[facility]/ZIP Co de Phone Number [facility] [place] [address] * (ABNORMAL) Type and screen (06/11/2018 4:35 PM SOLAR LAB TECHNICIAN) [facility] Arnel, indirect Positive(A) [facility] ABO Rh O Positive [facility] Blood specimen (specimen) 06/11/2018 4:35 PM SOLAR LAB TECHNICIAN 06/11/2018 5:28 PM SOLAR LAB TECHNICIAN Narrative [facility] - 06/11/2018 6:12 PM SOLAR LAB TECHNICIAN Has the patient had Daratumumab (Darzalex) in the past 6 months?->Unknown Felicia Quiñones NP LAB BLOOD BANK TEST ORDERA BLES Final Result [facility] [place] [address] * (ABNORMAL) CBC with auto differential (06/11/2018 4:35 PM SOLAR LAB TECHNICIAN) [facility] WBC 5.5 3.8 - 9.9 K/cumm [facility] Hgb 11.0(L) 13.0 - 17.5 g/dL [facility] Hct 33.0(L) 38.9 - 50.3 % [facility] Plt 189 150 - 400 K/cumm [facility] MPV 10.4 9.1 - 12.3 fL [facility] RBC 3.64(L) 4.30 - 5.80 M/cumm [facility] MCV 90.7 81.3 - 96.4 fL [facility] MCH 30.2 27.1 - 33.3 pg [facility] MCHC 33.3 32.3 - 35.7 g/dL [facility] RDW CV 12.6 11.1 - 14.9 % [facility] RDW SD 41.6 35.7 - 48.1 fL [facility] NRBC abs 0.00 0.00 - 0.01 K/cumm [facility] Blood specimen (specimen) 06/11/2018 4:35 PM SOLAR LAB TECHNICIAN 06/11/2018 5:36 PM SOLAR LAB TECHNICIAN Narrative [facility] - 06/11/2018 5:45 PM SOLAR LAB TECHNICIAN Felicia Quiñones DIRECTOR OF VOLUNTEER SERVICES LAB BLOOD ORDERABLES Final Result Performing Organization Address [facility] de Phone Number [facility] [place] [address] * aPTT (06/11/2018 4:35 PM SOLAR LAB TECHNICIAN) aPTT 28.3 25.0 - 37.0 sec [facility] Comment: Interpretive Data Therapeutic heparin range:60.0 - 94.0 sec based on correlation with therapeutic heparin activity range of 0.3 -0.7 Units/mL. Current interpretive data was last revised on 2011. Blood specimen (specimen) 06/11/2018 4:35 PM SOLAR LAB TECHNICIAN 06/11/2018 5:24 PM SOLAR LAB TECHNICIAN Narrative [facility] - 06/11/2018 5:59 PM SOLAR LAB TECHNICIAN Felicia Quiñones DIRECTOR OF VOLUNTEER SERVICES LAB BLOOD ORDERABLES Final Result Performing Organization Address [facility] de Phone Number [facility] [place] [address] * Protime-INR (06/11/2018 4:35 PM SOLAR LAB TECHNICIAN) PT 12.8 8.5 - 13.0 sec [facility] INR 1.19 0.80 - 1.21 [facility] Comment: Interpretive Data Inpatient therapeutic ranges* Atrial fibrillation ?2.0-3.0 INR Venous thrombo-embolism ?2.0-3.0 INR Bioprosthetic heart valve ?* Mechanical heart valve, bileaflet or tilting disk,aortic position ? 2.0-3.0 INR All other,or bileaflet or tilting disk, in mitral position ? 2.5-3.5 INR *See the pharmacy resource directory (PHRED) for an updated copy of the Tool Book at [email or web address] Current Interpretive Data was last revised 2011. Blood specimen (specimen) 06/11/2018 4:35 PM SOLAR LAB TECHNICIAN 06/11/2018 5:24 PM SOLAR LAB TECHNICIAN Narrative [facility] - 06/11/2018 5:59 PM SOLAR LAB TECHNICIAN us Felicia Quiñones NP LAB BLOOD ORDERABLES Final Result Performing Organization Address City/[facility]/ZIP Co de Phone Number [facility] [place] [address] * Prepare RBC: 2 Units (06/11/2018 4:22 PM SOLAR LAB TECHNICIAN) Product code [id number] [facility] Unit Number [id number] 5-A [facility] Product Blood Type OPOS [facility] Dispense Status RETURNED [facility] Product code [id number] [facility] Unit Number [id number] 3-O [facility] Product Blood Type OPOS [facility] Dispense Status RETURNED [facility] Blood specimen (specimen) 06/11/2018 4:22 PM SOLAR LAB TECHNICIAN 06/11/2018 4:22 PM SOLAR LAB TECHNICIAN Narrative [facility] - 06/15/2018 1:00 AM CDT Other indication->preop Are special requirements needed? (all products are leukoreduced)->No Date required:-[id number] LRRBC # of [id number] Reasons:-Other (specify)} us Felicia Quiñones DIRECTOR OF VOLUNTEER SERVICES BLOOD BANK PRODUCT ORDERAB LES Final Result Performing Organization Address [facility] Co de Phone Number [facility] [place] [address] documented in this encounter Visit Diagnoses Diagnosis Closed displaced oblique fracture of shaft of right tibia- Primary Closed displaced oblique fracture of shaft of right tibia, initial encounter Displaced transverse fracture of shaft of right fibula, initial encounter for closed fracture Recurrent UTI Urinary tract infection, site not specified documented in this encounter Administered Medications Inactive Administered Medications - up to 3 most recent administrations Medication Order MAR Action Action Date Dose Rate Site ascorbic acid (VITAMIN C) tablet/chewable tablet 4,000 mg 4,000 mg, oral, Daily, First dose on Alyssa 06/11/18 at 1645 Given 06/18/2018 9:19 AM CDT 4,000 mg Given 06/17/2018 8:31 AM CDT 4,000 mg Given 06/16/2018 7:54 AM CDT 4,000 mg bisacodyl (DULCOLAX) suppository 10 mg 10 mg, rectal, Daily PRN, constipation, 2nd line, Starting on 06/13/18 at 1457, Indications: constipationIndications:constipation calcium carbonate (TUMS) chewable tablet 1,000 mg 1,000 mg (400 mg of elemental calcium), oral, 2 times daily PRN, heartburn, Starting on 06/14/18 at 1208 Given 06/14/2018 1:12 PM CDT 1,000 mg carBAMazepine XR (TEGretol XR) extended release tablet 800 mg 800 mg, oral, Nightly, First dose on Alyssa 06/11/18 at 2100 Given 06/17/2018 9:13 PM CDT 800 mg Given 06/16/2018 10:17 PM CDT 800 mg Given 06/15/2018 10:25 PM CDT 800 mg ceFAZolin (ANCEF) 2000 mg/20 mL in sterile water (premix) 2,000 mg 2,000 mg, intravenous, at 400 mL/hr, Administer over 3 Minutes, Every 8 hours, First dose on Fri06/12/18 at 1600, For 2 doses, Beginning 8 hours after pre-op dose., Indications: Prophylaxis, SurgicalIndications:Prophylaxis, Surgical New Bag 06/12/2018 11:18 PM SOLAR LAB TECHNICIAN 2,000 mg 400 mL/hr New Bag 06/12/2018 5:43 PM SOLAR LAB TECHNICIAN 2,000 mg 400 mL/hr cefTRIAXone (ROCEPHIN) 2000 mg/20 mL in sterile water (premix) 2,000 mg 2,000 mg, intravenous, at 240 mL/hr, Administer over 5 Minutes, Every 24 hours scheduled, First dose on Alyssa 06/11/18 at 2130, For 3 days, Indications: Urinary Tract/Genitourinary InfectionIndications:Urinary Tract/Genitourinary Infection New Bag 06/13/2018 9:50 PM SOLAR LAB TECHNICIAN 2,000 mg 2 40 mL/hr New Bag 06/12/2018 8:48 PM SOLAR LAB TECHNICIAN 2,000 mg 240 mL/hr New Bag 06/11/2018 10:54 PM SOLAR LAB TECHNICIAN 2,000 mg 240 mL/hr cyclobenzaprine (FLEXERIL) tablet 10 mg 10 mg, oral, 3 times daily PRN, muscle spasms, Starting on 06/13/18 at 0810 Given 06/17/2018 9:20 PM CDT 10 mg Given 06/17/2018 6:37 PM CDT 10 mg Given 06/17/2018 1:03 PM CDT 10 mg diphenhydrAMINE (BENADRYL) tab/cap 25 mg 25 mg, oral, Every 6 hours PRN, itching, Starting on Alyssa 06/11/18 at 1609, Indications: UrticariaIndications:Urticaria Given 06/17/2018 6:37 PM CDT 25 mg Given 06/17/2018 1:08 PM CDT 25 mg Given 06/16/2018 7:26 PM CDT 25 mg enoxaparin (LOVENOX) syringe 40 mg 40 mg, subcutaneous, Daily (for enoxaparin), First dose on Alyssa 06/11/18 at 2100, Indications: VTE Prophylaxis Following Ortho SurgeryIndications:VTE Prophylaxis Following Ortho Surgery Given 06/17/2018 9:13 PM CDT 40 mg Left Lower Abdomen Given 06/16/2018 10:17 PM CDT 40 mg R ight Upper Abdomen Given 06/15/2018 10:24 PM CDT 40 mg L eft Upper Abdomen ESOMEPRAZOLE 40MG DR (PATIENT'S OWN SUPPLY) 40 mg, oral, Daily before breakfast, First dose (after last reorder) on 06/15/18 at 0730, Drug Name: ESOMEPRAZOLE, Form: capsule, Length of Therapy: Indefinite, How soon needed? (normally 72 hrs needed to procure): 0-24 hrs, Reason for Non-Formulary: relief of heart burn and home medication Given 06/18/2018 7:45 AM CDT 40 mg Given 06/17/2018 7:51 AM CDT 40 mg Given 06/16/2018 6:46 AM CDT 40 mg fosfomycin (MONUROL) packet 3 g 3 g, oral, Every 2 weeks, First dose on Fri06/14/18 at 0000, Pour contents of packet into 3-4 oz of cool water, stir to dissolve and administer immediately., Indications: Urinary Tract/Genitourinary InfectionIndications:Urinary Tract/Genitourinary Infection Given 06/14/2018 12:29 AM SOLAR LAB TECHNICIAN 3 g gabapentin (NEURONTIN) capsule 300 mg 300 mg, oral, 3 times daily, First dose on Fri06/16/18 at 2300 Given 06/18/2018 4:04 PM CDT 300 mg Given 06/18/2018 9:19 AM CDT 300 mg Given 06/17/2018 9:20 PM CDT 300 mg HYDROcodone-acetaminophen (NORCO) 5-325 mg per tablet 1 tablet 1 tablet, oral, Every 4 hours PRN, 1st line for pain, Starting on Alyssa 06/11/18 at 1619, Indications: PainIndications:Pain Given 06/14/2018 5:32 AM CDT 1 tablet Given 06/14/2018 12:28 AM SOLAR LAB TECHNICIAN 1 tablet Given 06/13/2018 8:29 PM SOLAR LAB TECHNICIAN 1 tablet HYDROcodone-acetaminophen (NORCO) 5-325 mg per tablet 2 tablet 2 tablet, oral, Every 4 hours PRN, 1st line for pain, Starting on Fri06/14/18 at 1054, Indications: PainIndications:Pain Given 06/18/2018 4:08 PM CDT 2 ta blets Given 06/18/2018 1:29 PM CDT 2 tablets Given 06/18/2018 9:19 AM CDT 2 tablets hydrocortisone 2.5 % cream topical, Daily PRN, rash, Starting on Fri06/15/18 at 1250, Apply to affected area: back Given 06/17/2018 1:09 PM CDT Given 06/16/2018 6:33 PM CDT Given 06/16/2018 2:45 PM CDT HYDROmorphone (DILAUDID) injection 0.2 mg 0.2 mg, intravenous, Administer over 2 Minutes, Every 4 hours PRN, 2nd line for pain, Starting on 06/13/18 at 0809 Given 06/14/2018 10:49 PM CDT 0.2 mg Given 06/14/2018 10:03 AM CDT 0.2 mg Given 06/14/2018 5:42 AM CDT 0.2 mg HYDROmorphone (DILAUDID) injection 0.5 mg 0.5 mg, intravenous, Administer over 2 Minutes, Once, On Fri06/12/18 at 0900, For 1 dose, Pre-Op, Indications: Pre-Emptive AnalgesiaIndications:Pre-Emptive Analgesia Given 06/12/2018 8:19 AM SOLAR LAB TECHNICIAN 0 .5 mg ibuprofen (ADVIL,MOTRIN) tablet 600 mg 600 mg, oral, Every 6 hours PRN, 1st line for pain, Starting on Tu06/16/18 at 2227 Lactated Ringer's (LR) infusion 30 mL/hr, intravenous, Continuous, Starting on Fri06/12/18 at 0800, Pre-Op New Bag 06/12/2018 11:40 AM SOLAR LAB TECHNICIAN New Bag 06/12/2018 9:12 AM SOLAR LAB TECHNICIAN Rate/Dose Verify 06/12/2018 8:20 AM SOLAR LAB TECHNICIAN methocarbamol (ROBAXIN) tablet 750 mg 750 mg, oral, 3 times daily, First dose on Fri06/14/18 at 0900 Given 06/18/2018 4:04 PM CDT 750 mg Given 06/18/2018 9:19 AM CDT 750 mg Given 06/17/2018 9:13 PM CDT 750 mg morphine injection 2 mg 2 mg, intravenous, Administer over 4 Minutes, Every 4 hours PRN, 2nd line for pain, Starting on Alyssa 06/11/18 at 1619 Given 06/13/2018 8:07 AM SOLAR LAB TECHNICIAN 2 mg Given 06/13/2018 3:46 AM SOLAR LAB TECHNICIAN 2 mg Given 06/12/2018 11:18 PM SOLAR LAB TECHNICIAN 2 mg morphine injection 2 mg 2 mg, intravenous, Administer over 4 Minutes, Every 4 hours PRN, 2nd line for pain, Starting on 06/15/18 at 1901 Given 06/15/2018 10:29 PM CDT 2 mg ondansetron (ZOFRAN) injection 4 mg 4 mg, intravenous, Administer over 2 Minutes, Every 6 hours PRN, nausea, vomiting, if not tolerating PO, Starting on Alyssa 06/11/18 at 1609, Indications: nausea and vomitingIndications:nausea and vomiting Given 06/12/2018 11:11 AM SOLAR LAB TECHNICIAN 4 m g ondansetron ODT (ZOFRAN-ODT) disintegrating tablet 4 mg 4 mg, oral, Every 6 hours PRN, nausea, vomiting, Starting on Alyssa 06/11/18 at 1609, Indications: nausea and vomitingIndications:nausea and vomiting pantoprazole DR (PROTONIX) extended release tablet 40 mg 40 mg, oral, Daily, First dose on Alyssa 06/11/18 at 1645, Do not crush, chew, cut, dissolve, open or otherwise manipulate tablet/capsule., Indications: Treatment of Non-Bleeding Gastric DisorderIndications:Treatment of Non-Bleeding Gastric Disorder Given 06/14/2018 10:04 AM CDT 40 mg Given 06/13/2018 8:07 AM SOLAR LAB TECHNICIAN 40 mg psyllium (aspartame) SF (METAMUCIL SF) 3.4 gram packet 1 packet 1 packet, oral, Daily, First dose on Alyssa 06/11/18 at 1645 Given 06/18/2018 9:19 AM CDT 1 packet Given 06/17/2018 8:31 AM CDT 1 packet Given 06/16/2018 7:54 AM CDT 1 packet senna-docusate (PERICOLACE) 8.6-50 mg per tablet 2 tablet 2 tablet, oral, 2 times daily PRN, constipation, Starting on Alyssa 06/11/18 at 1612, Indications: constipationIndications:constipation Given 06/15/2018 9:38 AM CDT 2 table ts Given 06/13/2018 2:30 AM SOLAR LAB TECHNICIAN 2 tablets sodium chloride 0.9% infusion 50 mL/hr, intravenous, Continuous, Starting on Fri06/12/18 at 0000 New Bag 06/11/2018 11:58 PM SOLAR LAB TECHNICIAN 50 mL/hr 50 mL/hr documented in this encounter Discontinued Medications Medication Sig Discontinue Reason Start Date End Da te ascorbic acid (vitamin C) 1,000 mg tablet 1 tab BID Stop Taking at Discharge 03/25/2017 06/18/2018 carBAMazepine XR (TEGretol XR) 200 mg 12 hr tablet TK 1 T PO FID UTD Stop Taking at Discharge 09/15/2017 06/18/2018 fosfomycin (MONUROL) 3 gram packetIndications:Urina ry Tract/Genitourinary Infection Take 3 g by mouth every 14 (fourteen) days. Stop Taking at Discharge 02/11/2018 06/18/2018 documented as of this encounter Active and Recently Administered Medications Times are shown in CDT. Scheduled Medication Order 06/16/2018 06/17/2018 06/18/2018 ascorbic acid (VITAMIN C) tablet/chewable tablet 4,000 mg 4,000 mg, oral, Daily, First dose on Alyssa 06/11/18 at 1645 0754 (Given - Provider: Esteban Castor, RN) 0831 (Given - Provider: Esteban Castro, DANNA) 0919 (Given - Provider: Franklin Hood, DANNA) carBAMazepine XR (TEGretol XR) extended release tablet 800 mg 800 mg, oral, Nightly, First dose on Alyssa 06/11/18 at 2100 2217 (Given - Provider: Claudia Rizo) 2112 (Given - Provider: Juana Diamond, DANNA) enoxaparin (LOVENOX) syringe 40 mg 40 mg, subcutaneous, Daily (for enoxaparin), First dose on Alyssa 06/11/18 at 2100, Indications: VTE Prophylaxis Following Ortho Surgery 2216 (Given - Provider: Claudia Rizo) 2112 (Given - Provider: Juana Diamond, DANNA) ESOMEPRAZOLE 40MG DR (PATIENT'S OWN SUPPLY) 40 mg, oral, Daily before breakfast, First dose (after last reorder) on 06/15/18 at 0730, Drug Name: ESOMEPRAZOLE, Form: capsule, Length of Therapy: Indefinite, How soon needed? (normally 72 hrs needed to procure): 0-24 hrs, Reason for Non-Formulary: relief of heart burn and home medication 0646 (Given - Provider: Claudia Rizo) 0751 (Given - Provider: Claudia Rizo) 0745 (Given - Provider: Franklin Hood, DANNA) fosfomycin (MONUROL) packet 3 g 3 g, oral, Every 2 weeks, First dose on Fri06/14/18 at 0000, Pour contents of packet into 3-4 oz of cool water, stir to dissolve and administer immediately., Indications: Urinary Tract/Genitourinary Infection gabapentin (NEURONTIN) capsule 300 mg 300 mg, oral, 3 times daily, First dose on Fri06/16/18 at 2300 2257 (Not Given - Provider: Claudia Rizo - Reason: Patient/family refused) 0831 (Given - Provider: Esteban Castro RN)1646 (Given - Provider: Esteban Castro, DANNA)2120 (Given - Provider: Juana Diamond, DANNA) 0919 (Given - Provider: Franklin Hood, DANNA)1604 (Given - Provider: Franklin Hood, DANNA) methocarbamol (ROBAXIN) tablet 750 mg 750 mg, oral, 3 times daily, First dose on Fri06/14/18 at 0900 0754 (Given - Provider: Esteban Castro RN)1444 (Given - Provider: Esteban Castro, DANNA)2248 (Given - Provider: Claudia Rizo) 0831 (Given - Provider: Esteban Castro RN)1646 (Given - Provider: Esteban Castro RN)2113 (Given - Provider: Juana Diamond, DANNA) 0919 (Given - Provider: Franklin Hood, DANNA)1604 (Given - Provider: Franklin Hood, DANNA) psyllium (aspartame) SF (METAMUCIL SF) 3.4 gram packet 1 packet 1 packet, oral, Daily, First dose on Fri06/11/18 at 1645 0754 (Given - Provider: Esteban Castro RN) 0831 (Given - Provider: Esteban Castro RN) 0919 (Given - Provider: Franklin Hood, DANNA) PRN Medication Order 06/16/2018 06/17/2018 06/18/2018 bisacodyl (DULCOLAX) suppository 10 mg 10 mg, rectal, Daily PRN, constipation, 2nd line, Starting on 06/13/18 at 1457, Indications: constipation calcium carbonate (TUMS) chewable tablet 1,000 mg 1,000 mg (400 mg of elemental calcium), oral, 2 times daily PRN, heartburn, Starting on 06/14/18 at 1208 cyclobenzaprine (FLEXERIL) tablet 10 mg 10 mg, oral, 3 times daily PRN, muscle spasms, Starting on 06/13/18 at 0810 1038 (Given - Provider: Esteban Castro RN)1444 (Given - Provider: Esteban Castro RN)2218 (Given - Provider: Claudia Rizo) 1303 (Given - Provider: Esteban Castro, DANNA)1837 (Given - Provider: Esteban Castro, DANNA)2120 (Given - Provider: Juana Diamond, DANNA) diphenhydrAMINE (BENADRYL) tab/cap 25 mg 25 mg, oral, Every 6 hours PRN, itching, Starting on Alyssa 06/11/18 at 1609, Indications: Urticaria 0754 (Given - Provider: Esteban Castro RN)1926 (Given - Provider: Esteban Castro RN) 1308 (Given - Provider: Esteban Castro, DANNA)1837 (Given - Provider: Esteban Castro, DANNA) HYDROcodone-acetaminophe n (NORCO) 5-325 mg per tablet 2 tablet 2 tablet, oral, Every 4 hours PRN, 1st line for pain, Starting on 06/14/18 at 1054, Indications: Pain 0304 (Given - Provider: Claudia Rizo)0646 (Given - Provider: Claudia Rizo)1036 (Given - Provider: Esteban Castro RN)1444 (Given - Provider: Esteban Castro, DANNA)1833 (Given - Provider: Liat Alcala RN)2247 (Given - Provider: Claudia Rizo) 0456 (Given - Provider: Claudia Rizo)0831 (Given - Provider: Esteban Castro, DANNA)1303 (Given - Provider: Esteban Castro, DANNA)1646 (Given - Provider: Esteban Castro, DANNA)2113 (Given - Provider: Juana Diamond RN) 0114 (Given - Provider: Juana Diamond RN)0524 (Given - Provider: Juana Diamond RN)0919 (Given - Provider: Franklin Hood, DANNA)1329 (Given - Provider: Franklin Hood, DANNA)1608 (Given - Provider: Franklin Hood, DANNA - Comment: approved by felicia VIDAL) hydrocortisone 2.5 % cream topical, Daily PRN, rash, Starting on Fri06/15/18 at 1250, Apply to affected area: back 0754 (Given - Provider: Esteban Castro, DANNA)1445 (Given - Provider: Estbean Castro RN)1833 (Given - Provider: Liat Alcala RN) 1309 (Given - Provider: Esteban Castro RN) ibuprofen (ADVIL,MOTRIN) tablet 600 mg 600 mg, oral, Every 6 hours PRN, 1st line for pain, Starting on Fri06/16/18 at 2227 2257 (Return to [facility] - Provider: Claudia Rizo) ondansetron (ZOFRAN) injection 4 mg(Linked Group 1) 4 mg, intravenous, Administer over 2 Minutes, Every 6 hours PRN, nausea, vomiting, if not tolerating PO, Starting on Fri06/11/18 at 1609, Indications: nausea and vomiting ondansetron ODT (ZOFRAN-ODT) disintegrating tablet 4 mg(Linked Group 1) 4 mg, oral, Every 6 hours PRN, nausea, vomiting, Starting on Fri06/11/18 at 1609, Indications: nausea and vomiting senna-docusate (PERICOLACE) 8.6-50 mg per tablet 2 tablet 2 tablet, oral, 2 times daily PRN, constipation, Starting on Fri06/11/18 at 1612, Indications: constipation Linked Groups Order Group 1: ondansetron ODT (ZOFRAN-ODT) disintegrating tablet 4 mgJump to med 4 mg, oral, Every 6 hours PRN, nausea, vomiting, Starting on Fri06/11/18 at 1609, Indications: nausea and vomiting Or ondansetron (ZOFRAN) injection 4 mgJump to med 4 mg, intravenous, Administer over 2 Minutes, Every 6 hours PRN, nausea, vomiting, if not tolerating PO, Starting on Alyssa 06/11/18 at 1609, Indications: nausea and vomiting documented in this encounter Orders Medications Ordered That Solomon ht Not Have Been Administered Count Last Ordered Date First Ordered Date ibuprofen (ADVIL,MOTRIN) tablet 600 mg 1 NON FORMULARY (FOR INPATIENT USE) 1 019 bisacodyl (DULCOLAX) suppository 10 mg 1 HYDROmorphone (DILAUDID) injection 0.2 mg 1 06/12/2018 Lactated Ringer's (LR) infusion 1 9 naloxone (NARCAN) 0.4 mg/mL injection 0.04-0.4 mg 1 06/12/2018 ondansetron (ZOFRAN) injection 4 mg 2 06/1206/11/2018 sodium chloride 0.9 % irrigation 1 06/13/19 sterile water irrigation 1 06/12/2018 ondansetron ODT (ZOFRAN-ODT) disintegrating tablet 4 mg 1 06/11/2018 Diet Count Last Ordered Date First Orde red Date ADULT DISCHARGE DIET 1 06/18/2018 Nursing Count Last Ordered Date First Orde red Date DISCHARGE ACTIVITY 1 06/18/2018 DISCHARGE CALL PROVIDER 7 06/18/2018 DISCHARGE DRESSING 1 06/18/2018 DISCHARGE INSTRUCTIONS 11 06/18/2018 WEIGHT BEARING TOLERATED 1 06/18/[address] SEQUENTIAL COMPRESSION DEVICE 1 06/11 Consult Count Last Ordered Date First Orde red Date IP CONSULT TO SOCIAL WORK 1 06/15/2018 CONSULT TO ORTHO-TRAUMA 1 06/11/2018 Admission Count Last Ordered Date First Orde red Date ASSIGN PATIENT STATUS 1 06/11/2018 CORE MEASURES Count Last Ordered Date First Ord ered Date REASON FOR NO VTE PROPHYLAXIS AT ADMISSION 1 06/12/2018 Case Request Count Last Ordered Date First Orde red Date CASE REQUEST OPERATING ROOM 1 06/11/2018 documented in this encounter Care Teams [place] Relationship Specialty Start Date End Date Jose Mo MD [address] [facility] [address] [place] [address] PCP - General 06/02/17 08/21/18 documented as of this encounter
--- OUTSIDE RECORDS SUMMARY | 2024-03-26 21:38 | XMS_ITS | Encounter Summary ---
Author Organization [facility] Address [address] [place] [address] Phone Care Team Providers Care Slot Floor Person Name Role Phone Jose Mo MD Primary Care Provider [phone] Reason for Referral * Diagnostic Imaging (Routine) - Closed Specialty Diagnoses / Procedures Referred By Contac t Referred To Contact Diagnoses Pain in right leg Procedures US Vein Duplex Lower Extremity Right Limited Flash Woodward MD Phone: tel: fax: [facility] (All Locations) Referral ID Status Reason Start Date Expiration Date Visits Re quested Visits Authorized [id number] Closed 08/13/2018 02/22/2020 1 1 Reason for Visit * Reason Comments Fracture Post-op Encounter Details Date Type Department Care Team (Late st Contact Info) Description 08/13/2018 1:00 PM CDT Office Visit [facility] Orthopaedic Surgery [address] [facility] 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 Regional procedure 12 June 2018 I and D 28 July 2018. Subjective: Patient is working with physical therapy. Reports right leg swelling. He does not feel stable on his legs. Objective: Patient is healthy-appearing and well-groomed, in no apparent distress. Patient is oriented to time, place, and person. Incision healing well, no drainage or erythema; no deformity or crepitation. Significant swelling of the entire limb Range of motion: diminished range with pain. Leg warm and well-perfused, capillary refill <2 seconds. Neurovascular exam abnormal but at baseline Imaging: No radiographs obtained today Assessment: Mr. Jain is a 48 y.o. male who sustained a right side proximal tibia fracture status post intramedullary nail complicated by wound dehiscence treated with I&D. He is now 2 weeks out from that.Overall the wound is looking good. I am concerned about the level swelling his leg I would like to rule out DVT. We will obtain ultrasound as soon as possible. We will call patient with results partic [facility] if it is positive. In the meantime he can continue physical therapy. Weightbearing as tolerated range of motion no restrictions. Edema control with compression socks on icing and elevating. Hehas finished his antibiotics is no need for further antibiotics. Her he is not able return to work due to ongoing therapy. We will see him back in 4 weeks. documented in this encounter Plan of Treatment Not on file documented as of this encounter Results * US Vein Duplex Lower Extremity Right Limited (08/13/2018 2:45 PM CDT) Anatomical Region Laterality Modality Vascular Right Ultrasound 08/13/2018 2:29 PM CDT Narrative 08/18/2018 3:10 PM CDT [facility] - Department of Vascular Surgery, Vascular Laboratory [address] [place] [address] Lower Extremity Venous Ultrasound Report Patient Name: ANGUS JAIN : 1970 (48y 3m) Study Date: 08/13/2018 2:29:47 PM Gender: M Tech: MARY Location: [facility] Ref.Provider: FLASH WOODWARD Quality: Adequate Order Provider: FLASH WOODWARD Procedures: Vascular Report: Venous Duplex imaging was performed in the right lower extremity. The common femoral, femoral, popliteal, posterior tibial, peroneal veins were evaluated for patency, spontaneity and phasicity with Doppler, compression and augmentation maneuvers. Great saphenous vein proximal at the junction was evaluated with compression maneuvers. Indications: Pain in right leg, and Swelling lower extremity, right. Findings: Performing Barrel Plater: Regla Lucero RVT. Right: Venous Doppler signals in the right lower extremity are within normal limits for spontaneity and phasicity and respond normally to augmentation maneuvers. No evidence of deep vein thrombus by duplex, proximal to the calf. Comments: Contralateral common femoral vein is imaged for comparison and is patent. Unilateral (limited study) performed per M.D. order. Conclusions: 1. There is no evidence of acute deep vein thrombosis on the right. Noninvasive venous studies cannot rule out isolated calf vein obstruction. History: Post-op infection. Previous Studies: No previous studies for comparison. Disclaimer: The signing physician has reviewed all images pertaining to this test. These images and this report will be retained in the patient chart by the Vascular Laboratory for the legally required time period. This chart constitutes the legal record of any testing performed. Electronically Signed By: Maciej Reddy MD [facility] 2018-08-18 15:10:50 CDT CC: CC: Procedure Note Maciej Reddy MD - 08/18/2018 [facility] - Department of Vascular Surgery,Vascular Laboratory [address] [place] [address] Lower Extremity Venous Ultrasound Report Patient Name: ANGUS JAINPatient ID: [id number] : 1970 (48y 3m)Study Date: 08/13/2018 2:29:47 PM Gender: MAccession #: [id number] Tech: D.TRANLocation: [facility] Ref.Provider: Kindra WOODWARDality: Adequate Order Provider: Jonathan WOODWARD #: [id number] Procedures: Vascular Report: Venous Duplex imaging was performed in the right lower extremity. Thecommon femoral, femoral, popliteal, posterior tibial, peroneal veins were evaluated forpatency, spontaneity and phasicity with Doppler, compression and augmentationmaneuvers. Great saphenous vein proximal at the junction was evaluated with compressionmaneuvers. Indications: Pain in right leg, and Swelling lower extremity, right. Findings: Performing Barrel Plater: Regla Lucero RVT. Right: Venous Doppler signals in the right lower extremity are within normallimits for spontaneity and phasicity and respond normally to augmentation maneuvers.No evidence of deep vein thrombus by duplex, proximal to the calf. Comments: Contralateral common femoral vein is imaged for comparison and is patent.Unilateral (limited study) performed per M.D. order. Conclusions: 1. There is no evidence of acute deep vein thrombosis on the right.Noninvasive venous studies cannot rule out isolated calf vein obstruction. History: Post-op infection. Previous Studies: No previous studies for comparison. Disclaimer: The signing physician has reviewed all images pertaining to this test.These images and this report will be retained in the patient chart by the VascularLaboratory for the legally required time period. This chart constitutes the legal record ofany testing performed. Electronically Signed By: Maciej Reddy MD [facility] 2018-08-18 15:10:50 CDT CC: CC: Flash Woodward MD IMG US PROCEDURES Final Result documented in this encounter Visit Diagnoses Diagnosis Displaced transverse fracture of shaft of right fibula, initial encounter for closed fracture- Primary Pain in right leg Pain in right leg documented in this encounter Care Teams Slot Floor Person Relationship Specialty Start Date End Date Jose Mo MD [id number] [place] [address] PCP - General 06/02/17 08/21/18 documented as of this encounter
--- OUTSIDE RECORDS SUMMARY | 2024-03-26 21:38 | XMS_ITS | Encounter Summary ---
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 Name Role Phone Jose Mo MD Primary Care Provider [phone] Reason for Visit * Reason Comments Wound Infection Post-op Problem Encounter Details Date Type Department Care Team (Late st Contact Info) Description 07/27/2018 9:50 PM CDT - 07/30/2018 4:07 PM CDT Hospital Encounter [facility] [address] [place] [address] Flash Magaña MD [address] [facility] [address] [place] [address] Wound infection complicating hardware, initial encounter ([facility]) (Primary Dx) Discharge Disposition: Discharge to home or self care Social History Tobacco Use Types Packs/Day Years Used Date Smoking Tobacco: Every Day Cigarettes Smokeless Tobacco: Never Alcohol Use Standard Drinks/Week Comments Not Currently 0 (1 standard drink = 0.6 oz pur e alcohol) Sex and Gender Information Value Date Recorded Sex Assigned at Not on file Legal Sex Male 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 Gender Identity Male 04/18/2020 9:24 AM FINGERNAIL SCULPTOR Sexual Orientation Straight 04/18/2020 9: 24 AM FINGERNAIL SCULPTOR documented as of this encounter Last Filed Vital Signs Vital Sign Reading Time Taken Comments Blood Pressure 136/61 07/30/2018 9:25 AM CDT Pulse 83 07/30/2018 9:25 AM CDT Temperature 36.6 ??C (97.9 ??F) 07/30/2018 9:25 AM CD T Respiratory Rate 16 07/30/2018 9:25 AM CDT Oxygen Saturation 98% 07/30/2018 9:25 AM CDT Inhaled Oxygen Concentration - - Weight 108.9 kg (240 lb) 07/28/2018 9:50 AM CDT Height 172.7 cm (5' 8 ) 07/28/2018 9:50 AM CDT Body Mass Index 36.49 07/28/2018 9:50 AM CDT documented in this encounter Discharge Summaries * Kristyn Gramajo, MARCY - 07/30/2018 11:18 AM CDT Inpatient Discharge Summary Admitting Provider: Flash Magaña MD Discharge Provider: Flash Irby* Primary Care Physician at Discharge: Jose Mo MD [phone] Primary Discharge Diagnosis: Right tibia fracture with concern for wound infection DETAILS OF HOSPITAL STAY Date of Admission: 07/27/2018 Date of Discharge: 07/30/2018 Procedure Performed: I&D right tibia Chief Complaint: RLE wound concerns History of Present Illness: The patient is a 48 y.o. year old male cared for by Dr. Flash Magaña. Patient with history of fall s/p IMN right tibia 06/12/2018 returns to clinic with concern for wound infection. Admitted for operative management. Physical Exam: See ortho trauma daily note Hospital Course: The patient was seen in the ED and admitted to the ortho service. The risks, benefits, alternativesand complications of the procedure were discussed with the patient at length prior to surgery. The patient elected to proceed with a surgical intervention given the significant influence on their quality of life. Informed consent was obtained prior to surgery. They underwent I&D right tibia wound. The patient tolerated the procedure well and was taken in stable condition to the postoperative recovery room then transferred to the orthopedic floor in stable condition. The patient received vancomycin/cefepime in the post operative period with improvement of the wound. Cultures were obtained in the OR and were no growth at time of discharge. The patient will be discharged with continued oral antibiotics. The patient participated with therapy and was deemed stable for discharge. he was maintained on lovenox for deep venous thrombosis prophylaxis. Pain was adequately maintained on oral pain medicationsand the patient was voiding without difficulty prior to discharge. The patient was discharged in stable condition. Angus Jain Home Medication Instructions CAMRON:[id number] Printed on:07/30/18 9572 Medication Information ascorbic acid (VITAMIN C) 1,000 [...] 6 (six) hours as needed for itching doxycycline (VIBRAMYCIN) 100 mg capsule Take 1 tablet/capsule (100 mg total) by mouth 2 (two) times a day for [address] (NexIUM) 40 mg capsule Take 1 capsule (40 mg total) by mouth daily before breakfast for 14 days fosfomycin (MONUROL) 3 gram packet Take 3 g by mouth every 2 (two) weeks HYDROcodone-acetaminophen (NORCO) 5-325 mg per tablet Take 1 tablet by mouth every 4 (four) hours as needed for pain hydrocortisone 2.5 % cream Apply topically daily as needed for rash levoFLOXacin (LEVAQUIN) 750 mg tablet Take 1 tablet (750 mg total) by mouth daily for 14 days methocarbamol (ROBAXIN) 750 mg tablet Take 1 tablet (750 mg total) by mouth 3 (three) times a day psyllium, aspartame, SF (METAMUCIL SF) 3.4 gram packet Take 1 packet by mouth daily Discharge Activity: 1. Weight bearing:Weight bearing as tolerated right lower extremity. Dry dressing daily 2. Out of bed to chair at least three times a day 3. DVT prophylaxis: Aspirin twice daily for 2 weeks and nexium once daily for stomach protection while on aspirin 4. Put ice on and elevate the injured body part Discharge Diet: Resume previous diet Follow-up: Dr. Flash Magaña on 08/13 at [facility] [address]: [facility] ([facility]), [address] [place] [address], [address] [place] [address]. Condition on Discharge: Stable Cosigned by Flash Magaña MD at 07/30/2018 4:31 PM CDT documented in this encounter Discharge Instructions * Discharge Instructions* Kristyn Gramajo NP - 07/30/2018 11:17 AM CDT Images from the original note were not included. MD Orlando Lopez MD Marschall B. Berkes, MD Department of Orthopaedic Surgery ([facility]) MOST COMMONLY ASKED QUESTIONS & ANSWERS FOR [...] there are some exceptions; Dr. Palacios, Dr. Pantoja and Dr. Magaña will let you know [...] Applications are available for download from the [place] and [place] DMV websites or from your courier driver???s license facility. Also, our medical assistants [...] Laws vary state by state; but in [place] and [place] there are no laws prohibiting driving after orthopedic surgery. If you are involved in a car accident, law enforcement will determine your ability to drive on a case by case basis. Please check your own state laws if driving outside of [place] or [place]. Some insurance companies may have policies restricting [...] call Aliya Abarca Stephanie or Mireya at [phone] between 8:00 am and 4:00 pm, Friday [...] please give our office a call at [phone]. Dr. Palacios, Dr. Pantoja and Dr. Magaña have four medical assistants. The medical assistants can bereached at [phone]. Please understand that they are in clinic on certain days and will return your phone call, as soon as possible. If you have specific questions about the scheduling of a future orthopaedic surgery to be performedby Dr. Kit Ulrich or Dr. Magaña, please call Tiki Lopez MA at [phone]. documented in this encounter Medications at Time [...] 02/23/20 20 documented as of this encounter Ordered Prescriptions Prescription Sig Dispense Quantity Refills Last Filled Start Date End Date doxycycline (VIBRAMYCIN) 100 mg capsule Take 1 tablet/capsule (100 mg total) by mouth 2 (two) times a day for 14 days 28 tablet/capsule 07/30/2018 9 levoFLOXacin (LEVAQUIN) 750 mg tablet Take 1 tablet (750 mg total) by mouth daily for 14 days 14 tablet 07/30/[address] (NexIUM) 40 mg capsuleIndications :Mucositis Prophylaxis Take 1 capsule (40 mg total) by mouth daily before breakfast for 14 days 14 capsule 07/30/2018 0 aspirin 325 mg enteric coated tablet Take 1 tablet (325 mg total) by mouth 2 (two) times a day for 14 days For blood clot prevention. Take with food. 28 tablet 07/30/2018 2 HYDROcodone-acetam inophen (NORCO) 5-325 mg per tabletIndications: Pain Take 1 tablet by mouth every 4 (four) hours as needed for pain 90 tablet 07/30/2018 0 documented in this encounter Discharge Disposition Disposition Code Departure Means Destination Discharge to home or self care documented in this encounter Progress Notes * Madeline Martínez RN - 07/30/2018 3:29 PM CDT 07/29/18 1139 Discharge Summary Chart reviewed For Medical Necessity Does patient have a planned readmission to hospital planned? No Equipment/Provider Needs Patient Refused Home Health Services Discharge Additional Assistance Does the patient need discharge transport arranged? No (sig other to provide ride) Post Discharge Care Provider Post Discharge Care Plan Next level of care provider has access to complete EMR * Ronan Palacios MD - 07/30/2018 6:00 AM CDT Ortho Trauma Daily Progress Note Admit: 07/27/2018 9:50 PM Date of Service: July 30, 2018 Attending: Flash Irby* 48 y.o. male POD 2 Day Post-Op s/p Procedure(s) (LRB): IRRIGATION AND DEBRIDEMENT - TIBIA (Right) Subjective Interval History: No acute events overnight. Pain controlled on current regimen. Tolerating PO. Cx NGT Objective Vitals: Temp: [36.4 ??C (97.52 ??F)] 36.4 ??C (97.52 ??F) Pulse: [77-82] 82 BP: (138-149)/(70-77) 138/70 Resp: [16] 16 I/O last 2 completed shifts: In: - Out: 1375 [Urine:1375] I/O this shift: In: - Out: 300 [Urine:300] Physical Exam: Physical Exam NAD NLB RRR RLE - dressing c/d/i - +EHL/FHL/TA/GSC - SILT sp/dp/t - 2+ DP pulse Lab/Diagnostic Review: Laboratory review: Lab results in the last 12 hours: Recent Results (from the past 12 hour(s)) CBC without differential Collection Time: 07/29/18 11:48 PM Result Value Ref Range WBC 7.8 3.8 - 9.9 K/cumm Hgb 12.0 (L) 13.0 - 17.5 g/dL Hct 37.1 (L) 38.9 - 50.3 % Plt 217 150 - 400 K/cumm MPV 9.2 9.1 - 12.3 fL RBC 4.02 (L) 4.30 - 5.80 M/cumm MCV 92.3 81.3 - 96.4 fL MCH 29.9 27.1 - 33.3 pg MCHC 32.3 32.3 - 35.7 g/dL RDW CV 13.0 11.1 - 14.9 % RDW SD 44.0 35.7 - 48.1 fL NRBC Abs 0.00 0.00 - 0.01 K/cumm Basic metabolic panel Collection Time: 07/29/18 11:48 PM Result Value Ref Range Sodium 139 135 - 145 mmol/L Potassium, pl 4.6 3.3 - 4.9 mmol/L Chloride 104 97 - 110 mmol/L CO2 26 22 - 32 mmol/L Anion Gap 9 2 - 15 mmol/L BUN 11 8 - 25 mg/dL Creatinine 0.89 0.80 - 1.30 mg/dL Glucose 118 70 - 199 mg/dL Calcium 9.1 8.5 - 10.3 mg/dL Recent Labs Lab Units 07/29/18 2348 HEMOGLOBIN g/dL 12.0* HEMATOCRIT % 37.1* SODIUM mmol/L 139 POTASSIUM PLASMA mmol/L 4.6 CREATININE mg/dL 0.89 GLUCOSE mg/dL 118 Assessment Problem: 48M POD2 s/p I&D R tibia. Plan Plan: -Activity: WBAT RLE, PT -Pain control: PO [place] -Antibiotics: vanc/cefe -Diet: regular diet -Anticoagulation: lovenox -Dispo: home today * Gloria Real, PT - 07/29/2018 1:55 PM CDT Physical Therapy As supervising physical therapist, I agree with and cosign all documentation provided on this date by YANIV Webster for PT documentation/care for this patient. Gloria Real, SMILEY 07/29/18 * So Pepper - 07/29/2018 1:44 PM CDT Physical Therapy Referral received. Met with patient and bedside. Functional mobility was discussed with patient including bed mobility, transfers, and ambulation. Patient reports that he has been able to successfully perform mobility for the past 6 weeks using a wheelchair. Previously he was ambulating with acane. He reports that since his weightbearing status was changed to WBAT on his RLE, he has not attempted to bear weight and he is unwilling to try. His LLE is his weakest of his four extremities, and he does not have the confidence to try to bear weight at this time. Patient and feel comfortable with mobility in the home after discharge and have no concerns with it. He has been attending out patient PT for many years and plans to continue with that after discharge. PT spoke with DICE SPOTTER, Felicia, after consultation with patient and discussed discharging the patient without a formal PT evaluation. Felicia agreed with the consultation, and expressed that she was also comfortable with his mobility and desire to progress with outpatient PT. Cosigned by Gloria Real PT at 08/26/2018 7:51 AM CDT * Reina Myers RN - 07/29/2018 11:34 AM CDT 07/29/18 1131 Patient Information Primary Caregiver Friend Accompanied by/Relationship sig other at bedside Support System Spouse/Significant Other Support system contact info (name, phone, availablity) Lives with sig other, Melissa Perea, who is able to assist Prior Level of Functioning Durable Medical Equipment Wheelchair;Home Modification Assessment (railes in bathroom);Tub Bench;Walker (wheeled);Cane (single prong);Other (Comment) (SLIDE BOARD) Living Arrangement House;Lives with someone Ambulation Needs Assistance (Comment) Dressing Needs Assistance (Comment) Bathing/Grooming Needs assistance (Comment) Grocery Shopping Needs Assistance (Comment) Meal preparation Needs Assistance (Comment) Housework Needs Assistance (Comment) Behavior Oriented Potential Discharge Needs Discharge Potential WANTS TO DISCHARGE HOME WITH OUTPATIENT PT Anticipated discharge level of care Return Home Dialysis No Communications Fiduciary Responsibility Patient/Designated decision maker was informed of [facility] fiduciary relationship as necessary Chart reviewed for medical necessity. Patient admitted for treatment of: Wound infection following tibial-fibula fx in 06/23. I&D doneyesterday. On IV abx. Likely able to do po abx at discharge Information obtained from: patient and sig other Insurance verified as: [place] Access PPO Verified PCP: Dr Jose Mo Prescription Coverage: yes Admission Source: from MD office/clinic Additional Information/Options Discussed: patient currently in outpatient PT 3 x per week for about2 hrs and just was to start wt bearing. He prefers to return to outpatient PT. If IV abx are needed, he would likely switch to home PT with HI. Sig other able to assist. Plan Includes: Return to home. If home health needed, will provide list of agencies. If HI needed, will refer to [facility]. Problem: Establish a safe discharge Goal: Implement follow up with appropriate MD/team, family support Patient/Family agree with discharge plan Based on a comprehensive family assessment, assistance with instrumental activities of daily livingafter discharge will be provided by sig Melissa quintana Through the course of our work I determined that Melissa possesses the skill and ability to provide and monitor the care of the patient when he or she returns home. Melissa has the capacity to provide/monitor/arrange for the care of the patient. Finally, we determined that Melissa has the knowledge of available resources and that combining them with their existing resources will suffice to sustain and care for the patient when he or she returns home. The treatment team is aware of this information. All are in agreement with the aftercare plan. * Ronan Palacios MD - 07/29/2018 5:10 AM CDT Ortho Trauma Daily Progress Note Admit: 07/27/2018 9:50 PM Date of Service: July 29, 2018 Attending: Flash Irby* 48 y.o. male POD 1 Day Post-Op s/p Procedure(s) (LRB): IRRIGATION AND DEBRIDEMENT - TIBIA (Right) Subjective Interval History: No acute events overnight. Pain controlled on current regimen. Tolerating PO. Cx NGT Objective Vitals: Temp: [36.4 ??C (97.5 ??F)-36.6 ??C (97.9 ??F)] 36.6 ??C (97.9 ??F) Pulse: [72-87] 72 BP: (116-145)/(63-86) 134/64 Resp: [18] 18 I/O last 2 completed shifts: In: 1520 [I.V.:1000; IV Piggyback:520] Out: 585 [Urine:575; Blood:10] I/O this shift: In: - Out: 1075 [Urine:1075] Physical Exam: Physical Exam NAD NLB RRR RLE - dressing c/d/i - +EHL/FHL/TA/GSC - SILT sp/dp/t - 2+ DP pulse Lab/Diagnostic Review: Laboratory review: Lab results in the last 12 hours: Recent Results (from the past 12 hour(s)) CBC without differential Collection Time: 07/29/18 12:16 AM Result Value Ref Range WBC 6.6 3.8 - 9.9 K/cumm Hgb 11.4 (L) 13.0 - 17.5 g/dL Hct 35.3 (L) 38.9 - 50.3 % Plt 217 150 - 400 K/cumm MPV 9.4 9.1 - 12.3 fL RBC 3.82 (L) 4.30 - 5.80 M/cumm MCV 92.4 81.3 - 96.4 fL MCH 29.8 27.1 - 33.3 pg MCHC 32.3 32.3 - 35.7 g/dL RDW CV 12.8 11.1 - 14.9 % RDW SD 43.4 35.7 - 48.1 fL NRBC Abs 0.00 0.00 - 0.01 K/cumm Basic metabolic panel Collection Time: 07/29/18 12:16 AM Result Value Ref Range Sodium 140 135 - 145 mmol/L Potassium, pl 5.4 (H) 3.3 - 4.9 mmol/L Chloride 106 97 - 110 mmol/L CO2 27 22 - 32 mmol/L Anion Gap 7 2 - 15 mmol/L BUN 12 8 - 25 mg/dL Creatinine 0.79 (L) 0.80 - 1.30 mg/dL Glucose 100 70 - 199 mg/dL Calcium 8.7 8.5 - 10.3 mg/dL Recent Labs Lab Units 07/29/18 0016 HEMOGLOBIN g/dL 11.4* HEMATOCRIT % 35.3* SODIUM mmol/L 140 POTASSIUM PLASMA mmol/L 5.4* CREATININE mg/dL 0.79* GLUCOSE mg/dL 100 Assessment Problem: 48M POD1 s/p I&D R tibia. Plan Plan: -Activity: WBAT RLE, PT -Pain control: PO [place] -Antibiotics: vanc/cefe -Diet: regular diet -Anticoagulation: lovenox -Dispo: pending PT, cx * Felicia Josue NP - 07/28/2018 3:40 PM CDT Ortho Trauma Post-Op Note Diagnosis: R tibia wound Surgical Procedure: I&D R tibia Subjective awake and alert; oriented to person, place, and time Pain: controlled Patient is not having chest pain Patient is not having shortness of breath Patient is not having nausea and/or vomiting Objective Vitals: Most Recent: Vitals: 07/28/18 1505 BP: Pulse: 88 Resp: 23 Temp: SpO2: 97% Patient has no lagos Drain- none Physical Exam: Limbs are warm and well perfusedR Splint or dressing is clean, dry and intact Sensory Exam- RLE silt dp/sp/s/s/tibial nerves Motor Exam- RLE ehl/fhl/ta/gs 4/5 Lab/Radiology/Diagnostic Review: Laboratory review: Chemistry BMP Lab Results Component Value Date GLUCOSE 131 07/27/2018 CALCIUM 9.6 07/27/2018 SODIUM 139 07/27/2018 POTASSIUM 4.5 07/27/2018 CO2 26 07/27/2018 BUNSER 14 07/27/2018 CREATININE 0.85 07/27/2018 and CBC: Lab Results Component Value Date WBC 7.8 07/27/2018 RBC 4.20 (L) 07/27/2018 HGB 12.9 (L) 07/27/2018 HCT 39.0 07/27/2018 MCV 92.9 07/27/2018 MCH 30.7 07/27/2018 MCHC 33.1 07/27/2018 RDWCV 13.2 07/27/2018 RDWSD 45.4 07/27/2018 MPV 9.3 07/27/2018 NRBCABS 0.00 07/27/2018 Assessment/Plan Patient is recovering appropriately Plan- PT/OT orders placed, Activity order placed, DVT prophylaxis ordered, Antibiotic orders placed, Weight Bearing Recommendations Placed and AM Labs ordered documented in this encounter H&P Notes * Christiano Hanson MD - 07/28/2018 6:55 AM CDT I have reviewed the H&P, examined the patient, and endorse the findings as written. Plan of Care : Based on the above findings, I consider Angus Jain to be an acceptable risk for: Procedure(s): IRRIGATION AND DEBRIDEMENT - TIBIA Cosigned by Flash Magaña MD at 07/28/2018 2:55 PM CDT Source Note - Flash Magaña MD - 07/27/2018 1:40 PM [...] weight-bearing as tolerated documented in this encounter Consult Notes * Lobo King MD PhD - 07/28/2018 1:13 AM CDTAssociated Order(s): IP CONSULT TO ORTHOPEDIC SURGERY Orthopaedic Surgery Consult July 28, 2018 1:14 AM Reason for Consult: R Leg post-op infection Requesting Provider: ED Consulting Provider: Resident - Fernando/Attending - Archana Patient (home) Insurance: Payor: [employer] / Plan: [employer] [place] / Product Type: *No Product type* /Note: This is the primary coverage, but no account was found for this location or the patient's primary location. HPI: Angus Jain is a 48 y.o. male s/p R tibia fx s/p IMN and ORIF in 06/2018 now presenting w/ 4 days of redness around the medial aspect of mid tibia near screw site of the medial butress plate. States erythema has been expanding over last 3 days with purulent discharge from pin site. Has not beenweight bearing yet. Has minimal pain around the pin site. Denies fevers/chills. Has been progressing well w/ PT with knee and ankle ROM. XR w/ callous formation around fracture site, but has not achieved complete healing. History reviewed. No pertinent past medical history. Past Surgical History: Procedure Laterality Date ??? CERVICAL FUSION ??? EAR SURGERY ??? FEMUR FRACTURE SURGERY ? ? ORIF TIBIA & FIBULA FRACTURES Prior to Admission medications Medication Sig Start Date End Date Taking? Authorizing Provider acetaminophen-codeine (TYLENOL with CODEINE #3) 300-30 mg per tablet Take 1 tablet by mouth every 6(six) hours as needed for pain 07/21/18 Flash Magaña MD ascorbic acid (VITAMIN C) 1,000 mg tablet Take 4 tablets (4,000 mg total) by mouth daily 06/19/18 Felicia Josue NP aspirin 325 mg enteric coated tablet Take 1 tablet (325 mg total) by mouth 2 (two) times a day for 14 days For blood clot prevention. Take with food. 06/18/18 07/02/18 Felicia Josue NP bisacodyl (DULCOLAX) 10 mg suppository Insert 1 suppository (10 mg total) into the rectum daily as needed for constipation (2nd line) 06/18/18 Felicia Josue NP calcium carbonate (TUMS) 500 mg calcium (200 mg of elemental calcium) chewable tablet Take 2 tablets (1,000 mg total) by mouth 2 (two) times a day as needed for heartburn 06/18/18 06/18/19 Felicia Josue NP carBAMazepine XR (TEGretol XR) 400 mg 12 hr tablet Take 2 tablets (800 mg total) by mouth nightly 06/18/18 06/18/19 Felicia Josue NP cephalexin (KEFLEX) 500 mg capsule TK 1 C PO Q 6 HOURS 07/25/18 Historical MD Randi cyclobenzaprine (FLEXERIL) 10 mg tablet Take 1 tablet (10 mg total) by mouth 3 (three) times a day as needed for muscle spasms 07/21/18 Flash Magaña MD diphenhydrAMINE (BENADRYL) 25 mg capsule Take 1 tablet/capsule (25 mg total) by mouth every 6 (six)hours as needed for itching 06/18/18 Felicia Josue NP esomeprazole DR (NexIUM) 40 mg capsule Take 1 capsule (40 mg total) by mouth daily before breakfast06/18/18 07/18/18 Felicia Josue NP fosfomycin (MONUROL) 3 gram packet Take 3 g by mouth every 2 (two) weeks 07/21/18 08/20/18 Quentin Montoya MD gabapentin (NEURONTIN) 300 mg capsule Take 1 capsule (300 mg total) by mouth 3 (three) times a day 06/18/18 06/18/19 Felicia Josue NP HYDROcodone-acetaminophen (NORCO) 5-325 mg per tablet Take 1 tablet by mouth every 6 (six) hours asneeded for pain 07/06/18 Flash Magaña MD hydrocortisone 2.5 % cream Apply topically daily as needed for rash 06/18/18 Felicia Jsoue NP methocarbamol (ROBAXIN) 750 mg tablet Take 1 tablet (750 mg total) by mouth 3 (three) times a day 07/21/18 Flash Magaña MD mupirocin (BACTROBAN) 2 % ointment APPLY TO WOUND D AND PRN 07/20/18 Historical Provider, psyllium, aspartame, SF (METAMUCIL SF) 3.4 gram packet Take 1 packet by mouth daily 06/19/18 06/19/19Felicia Josue NP senna-docusate (PERICOLACE) 8.6-50 mg Take 2 tablets by mouth 2 (two) times a day as needed for constipation 06/18/18 Felicia Josue NP Allergies Allergen Reactions ??? Sulfa (Sulfonamide Antibiotics) Unknown Social History Tobacco Use ??? Smoking status: Current Every Day Smoker Packs/day: 0.50 Types: Cigarettes ??? Smokeless tobacco: Never Used Substance Use Topics ??? Alcohol use: Not on file History reviewed. No pertinent family history. Review of Systems: Constitutional: Negative for chills??and fever. HENT: Negative for acute hearing loss ?? Eyes: Negative for pain??and visual disturbance. Respiratory: Negative for cough??and shortness of breath. ?? Cardiovascular: Negative for chest pain??and palpitations. Gastrointestinal: Negative for abdominal pain??and vomiting. Genitourinary: recurrent UTI/urine retention Musculoskeletal: pain in R lower extremity Skin: Negative for acute rash. Neurological: Negative for seizures??and syncope. Review of systems per HPI and otherwise all other systems are negative. Objective Vitals: 24hr Min/Max: Temp Min: 36.7 ??C (98.1 ??F) Max: 36.7 ??C (98.1 ??F) Pulse Min: 82 Max: 89 BP Min: 127/77 Max: 132/85 Resp Min: 18 Max: 18 SpO2 Min: 95 % Max: 96 % Most Recent: Vitals: 07/27/18 1618 07/27/18 2236 BP: 127/77 132/85 Pulse: 89 82 Resp: 18 18 Temp: 36.7 ??C (98.1 ??F) TempSrc: Oral SpO2: 96% 95% Weight: 108.9 kg (240 lb 1.3 oz) Height: 172.7 cm (5' 8 ) Physical Exam: Gen: NAD Neuro: A&Ox3 Resp: NLB CV: regular rhythm MSK: RUE No obvious deformity, ecchymosis, or joint effusion. Non-TTP and full ROM of shoulder, elbow, forearm, wrist. +EPL/FPL/FDP2,5/IO/EDC SILT ax/m/u/r palpable radial pulse, fingers wwp LUE No obvious deformity, ecchymosis, or joint effusion. Non-TTP and full ROM of shoulder, elbow, forearm, wrist. +EPL/FPL/FDP2,5/IO/EDC SILT ax/m/u/r palpable radial pulse, fingers wwp RLE Erythema surrounding mid tibia screw site. Expressible purulence from pin site. Mild TTP over middle of medial aspect of tibia Venous stasis Non-TTP and full ROM of hip, knee, and ankle. +ehl/fhl/ta/gsc SILT dp/sp/s/s/t palpable DP/PT pulse, foot wwp LLE No obvious deformity, ecchymosis, or joint effusion. Non-TTP and full ROM of hip, knee, and ankle. +ehl/fhl/ta/gsc SILT dp/sp/s/s/t palpable DP/PT pulse, foot wwp Lab/Radiology/Diagnostic Review: Laboratory review: Recent Results (from the past 24 hour(s)) CBC with auto differential Collection Time: 07/27/18 8:57 PM Result Value Ref Range WBC 7.8 3.8 - 9.9 K/cumm Hgb 12.9 (L) 13.0 - 17.5 g/dL Hct 39.0 38.9 - 50.3 % Plt 268 150 - 400 K/cumm MPV 9.3 9.1 - 12.3 fL RBC 4.20 (L) 4.30 - 5.80 M/cumm MCV 92.9 81.3 - 96.4 fL MCH 30.7 27.1 - 33.3 pg MCHC 33.1 32.3 - 35.7 g/dL RDW CV 13.2 11.1 - 14.9 % RDW SD 45.4 35.7 - 48.1 fL NRBC Abs 0.00 0.00 - 0.01 K/cumm Basic metabolic panel Collection Time: 07/27/18 8:57 PM Result Value Ref Range Sodium 139 135 - 145 mmol/L Potassium, pl 4.5 3.3 - 4.9 mmol/L Chloride 101 97 - 110 mmol/L CO2 26 22 - 32 mmol/L Anion Gap 12 2 - 15 mmol/L BUN 14 8 - 25 mg/dL Creatinine 0.85 0.80 - 1.30 mg/dL Glucose 131 70 - 199 mg/dL Calcium 9.6 8.5 - 10.3 mg/dL Erythrocyte sedimentation rate Collection Time: 07/27/18 8:57 PM Result Value Ref Range Erythrocyte sedimentation rate 16 (H) 1 - 15 mm/hr CRP (acute phase) Collection Time: 07/27/18 8:57 PM Result Value Ref Range C-RP 10.3 (H) <=10.0 mg/L Differential, auto Collection Time: 07/27/18 8:57 PM Result Value Ref Range Neutrophil absolute 4.5 1.7 - 6.5 K/cumm Immature granulocyte absolute 0.0 0.0 - 0.1 K/cumm Lymphocytes absolute 2.4 0.8 - 3.3 K/cumm Monocyte absolute 0.5 0.2 - 0.8 K/cumm Eosinophils absolute 0.3 0.0 - 0.5 K/cumm Basophils, abs 0.0 0.0 - 0.1 K/cumm Neutrophils 58.5 % Immature granulocytes 0.5 % Lymphocytes 30.3 % Monocytes 6.7 % Eosinophils 3.4 % Basophils 0.6 % Radiology Review: I have reviewed the imaging with the following findings: XR: non-union tibia fx Clinical Images: None Assessment/Plan Angus Jain is a 48 y.o. male who presents with infection of pin site on RLE. PROCEDURE: none PLAN: 1. Admit to ortho, please don't send up before speaking with ortho 2. Plan for operative management 3. NWB RLE 4. Pain control 5. NPO 6. Pre-op labs: CBC/BMP/PT/PTT/T&S/T&Cx2U/UA/CXR/EKG 7. Abx: Vanc and cefepime 8. DVT ppx: Please hold AM dose on day of OR if on DVT ppx Lobo King MD, PhD Orthopaedic Surgery PGY-2 Cosigned by Flash Magaña MD at 07/28/2018 2:58 PM CDT Associated attestation - Flash Magaña MD - 07/28/2018 2:58 PM CDT I personally saw and examined the patient as an inpatient on 28 July 2018. I have reviewed the imaging and clinical exam which shows right leg medial postoperative surgical nonhealing wound and erythema. I have read the resident???s note and agree with the findings and plan by Dr Lobo King MD. Flash Magaña MD 07/28/2018, 2:57 PM documented in this encounter Nursing Notes * Carmina Smart RN - 07/28/2018 5:13 PM CDT Pt arrived to [address] s/p I&D of right tib/fib and IV abx's. Pt alert and oriented x 4, oriented to room and surrounds, call light placed in reach and pt bedrest at this time. All VSS, pt voices noconcerns or request, family at bedside. documented in this encounter ED Notes * Farhana Linda NP - 07/27/2018 9:52 PM CDT HPI Chief Complaint Patient presents with ??? Wound Infection ??? Post-op Problem Patient is a 48 y.o. male with PMHx of right segmental tibia fracture who presents to the EmergencyDepartment for a wound check. Pt sustained right proximal tibia fracture on 06/11 and is s/p operative fixation with hardware placement on 06/12/18. His postoperative course has been complicated by wound dehiscence and infection of 1 of the percutaneous incisions. Pt went to [facility] ED 07/25/18, received shot of Rocephin and has been taking 500 mg QID Keflex since d/c. Pt presented to orthopedic surgeon, Dr. Magaña, today with concerns over worsening redness and drainage to the site. Dr. Magaña recommended pt is admitted for wound irrigation, debridement, management, and IV abx.Presently denies systemic complaints, including fevers, chills, body aches, changes in appeitie, orfurther complaints. Patient History Patient Active Problem List Diagnosis Date Noted ??? Infection associated with internal fixation device of right tibia ([facility]) 07/27/2018 ??? Closed displaced oblique fracture of shaft of right tibia 06/11/2018 ??? Displaced transverse fracture of shaft of right fibula, initial encounter for closed fracture 06/11/2018 ??? Quadriparesis ([facility]) 09/23/2017 ??? Seizures ([facility]) 09/23/2017 ??? Encounter for long-term (current) use of antibiotics 05/20/2017 ??? Recurrent UTI 02/13/2017 History reviewed. No pertinent past medical history. Past Surgical History: Procedure Laterality Date ??? CERVICAL FUSION ??? EAR SURGERY ??? FEMUR FRACTURE SURGERY ? ? ORIF TIBIA & FIBULA FRACTURES History reviewed. No pertinent family history. Social History Tobacco Use ??? Smoking status: Current Every Day Smoker Packs/day: 0.50 Types: Cigarettes ??? Smokeless tobacco: Never Used Substance Use Topics ??? Alcohol use: Not Currently ??? Drug use: Not on file Social History Social History Narrative ??? Not on file Review of Systems Review of Systems Constitutional: Negative for appetite change, chills and fever. HENT: Negative for ear pain and sore throat. Eyes: Negative for pain and visual disturbance. Respiratory: Negative for cough and shortness of breath. Cardiovascular: Negative for chest pain and palpitations. Gastrointestinal: Negative for abdominal pain and vomiting. Genitourinary: Negative for dysuria and hematuria. Musculoskeletal: Negative for arthralgias and back pain. Skin: Positive for wound (As per HPI). Neurological: Negative for seizures and syncope. All other systems reviewed and are negative. Physical Exam ED Triage Vitals Temp Pulse Resp BP SpO2 07/27/18 1618 07/27/18 1618 07/27/18 1618 07/27/18 1618 07/27/18 1618 36.7 ??C (98.1 ??F) 89 18 127/77 96 % Temp src Heart Rate Source Patient Position BP Location FiO2 (%) 07/27/18 1618 07/28/18 0950 07/28/18 1210 07/28/18 0950 -- Oral Monitor Lying Right arm Physical Exam Constitutional: He is oriented to person, place, and time. He appears well- developed and well-nourished. No distress. HENT: Head: Normocephalic and atraumatic. Eyes: Conjunctivae and EOM are normal. Neck: Normal range of motion. Neck supple. Cardiovascular: Normal rate, regular rhythm, normal heart sounds and intact distal pulses. Exam reveals no gallop and no friction rub. No murmur heard. Distal pulse intact to RLE. Pulmonary/Chest: Effort normal and breath sounds normal. No stridor. No respiratory distress. He has no wheezes. He has no rales. Musculoskeletal: Normal range of motion. He exhibits no edema, tenderness or deformity. Neurological: He is alert and oriented to person, place, and time. Skin: Capillary refill takes less than 2 seconds. Large area to medial calf with redness and warmth with a darkened center. Seems to have opened areain the middle. Psychiatric: He has a normal mood and affect. His behavior is normal. Nursing note and vitals reviewed. MDM MDM Number of Diagnoses or Management Options Diagnosis management comments: Ddx: Cellulitis, wound infection, rule out infected hardware Plan: CBC, metabolic panel, CRP, sed rate, ESR, consult orthopedics Labs Reviewed CBC WITH AUTO DIFFERENTIAL - Abnormal Result Value WBC 7.8 Hgb 12.9 (*) Hct 39.0 Plt 268 MPV 9.3 RBC 4.20 (*) MCV 92.9 MCH 30.7 MCHC 33.1 RDW CV 13.2 RDW SD 45.4 NRBC Abs 0.00 Narrative: THE COLLECTION LOCATION IS ERYTHROCYTE SEDIMENTATION RATE - Abnormal Erythrocyte sedimentation rate 16 (*) Narrative: THE COLLECTION LOCATION IS CRP (ACUTE PHASE) - Abnormal C-RP 10.3 (*) Narrative: THE COLLECTION LOCATION IS TYPE AND SCREEN - Abnormal Arnel, indirect Positive (*) ABO Rh O Positive Narrative: Has the patient had Daratumumab (Darzalex) in the past 6 months?->Unknown THE COLLECTION LOCATION IS [facility] OBS-09 CBC WITHOUT DIFFERENTIAL - Abnormal WBC 6.6 Hgb 11.4 (*) Hct 35.3 (*) Plt 217 MPV 9.4 RBC 3.82 (*) MCV 92.4 MCH 29.8 MCHC 32.3 RDW CV 12.8 RDW SD 43.4 NRBC Abs 0.00 Narrative: BASIC METABOLIC PANEL - Abnormal Sodium 140 Potassium, pl 5.4 (*) Chloride 106 CO2 27 Anion Gap 7 BUN 12 Creatinine 0.79 (*) Glucose 100 Calcium 8.7 Narrative: POTASSIUM, WHOLE BLOOD - Abnormal Potassium, bld 5.3 (*) Narrative: TISSUE AEROBIC AND ANAEROBIC CULTURE AND GRAM STAIN Direct Specimen Exam Value: Stain: No polymorphonuclear leukocytes seen. No organisms seen. Report Value: Preliminary Report: No growth to date. Narrative: Specimen collected in the operating room. 1. SINUS TISSUE PROXIMAL Testing performed by [facility] ([phone]) Specimens submitted from normally sterile body sites will have all bacterial morphotypes identified. Specimens that contain grossly mixed fracisco and/or are from body sites that are not normally sterile will be examined for Staphylococcus aureus, Pseudomonas aeruginosa, beta-hemolytic strep, vancomycin-resistant Enterococcus, Bacteroides fragilis, Clostridium perfringens and fungus. If any of these are isolated, the organism will be reported. Current interpretive data was last revised on 2016. TISSUE AEROBIC AND ANAEROBIC CULTURE AND GRAM STAIN Direct Specimen Exam Value: Stain: No polymorphonuclear leukocytes seen. No organisms seen. Report Value: Preliminary Report: No growth to date. Narrative: Specimen collected in the operating room. DEEP FAT ANTERIOR Testing performed by [facility] ([phone]) Specimens submitted from normally sterile body sites will have all bacterial morphotypes identified. Specimens that contain grossly mixed fracisco and/or are from body sites that are not normally sterile will be examined for Staphylococcus aureus, Pseudomonas aeruginosa, beta-hemolytic strep, vancomycin-resistant Enterococcus, Bacteroides fragilis, Clostridium perfringens and fungus. If any of these are isolated, the organism will be reported. Current interpretive data was last revised on 2016. TISSUE AEROBIC AND ANAEROBIC CULTURE AND GRAM STAIN Direct Specimen Exam Value: Stain: No polymorphonuclear leukocytes seen. No organisms seen. Report Value: Preliminary Report: No growth to date. Narrative: Specimen collected in the operating room. 3. SINUS TISSUE CENTRAL Testing performed by [facility] ([phone]) Specimens submitted from normally sterile body sites will have all bacterial morphotypes identified. Specimens that contain grossly mixed fracisco and/or are from body sites that are not normally sterile will be examined for Staphylococcus aureus, Pseudomonas aeruginosa, beta-hemolytic strep, vancomycin-resistant Enterococcus, Bacteroides fragilis, Clostridium perfringens and fungus. If any of these are isolated, the organism will be reported. Current interpretive data was last revised on 2016. TISSUE AEROBIC AND ANAEROBIC CULTURE AND GRAM STAIN Direct Specimen Exam Value: Stain: No polymorphonuclear leukocytes seen. No organisms seen. Report Value: Preliminary Report: No growth to date. Narrative: Specimen collected in the operating room. 2. SINUS TISSUE DISTAL Testing performed by [facility] ([phone]) Specimens submitted from normally sterile body sites will have all bacterial morphotypes identified. Specimens that contain grossly mixed fracisco and/or are from body sites that are not normally sterile will be examined for Staphylococcus aureus, Pseudomonas aeruginosa, beta-hemolytic strep, vancomycin-resistant Enterococcus, Bacteroides fragilis, Clostridium perfringens and fungus. If any of these are isolated, the organism will be reported. Current interpretive data was last revised on 2016. TISSUE AEROBIC AND ANAEROBIC CULTURE AND GRAM STAIN Direct Specimen Exam Value: Stain: No polymorphonuclear leukocytes seen. No organisms seen. Report Value: Preliminary Report: No growth to date. Narrative: Specimen collected in the operating room. 4.deep fat posterior Testing performed by [facility] ([phone]) Specimens submitted from normally sterile body sites will have all bacterial morphotypes identified. Specimens that contain grossly mixed fracisco and/or are from body sites that are not normally sterile will be examined for Staphylococcus aureus, Pseudomonas aeruginosa, beta-hemolytic strep, vancomycin-resistant Enterococcus, Bacteroides fragilis, Clostridium perfringens and fungus. If any of these are isolated, the organism will be reported. Current interpretive data was last revised on 2016. MYCOBACTERIOLOGY AFB CULTURE MYCOLOGY (FUNGAL) CULTURE MYCOBACTERIOLOGY AFB CULTURE MYCOLOGY (FUNGAL) CULTURE MYCOBACTERIOLOGY AFB CULTURE MYCOLOGY (FUNGAL) CULTURE MYCOBACTERIOLOGY AFB CULTURE MYCOLOGY (FUNGAL) CULTURE MYCOBACTERIOLOGY AFB CULTURE MYCOLOGY (FUNGAL) CULTURE BASIC METABOLIC PANEL Sodium 139 Potassium, pl 4.5 Chloride 101 CO2 26 Anion Gap 12 BUN 14 Creatinine 0.85 Glucose 131 Calcium 9.6 Narrative: THE COLLECTION LOCATION IS DIFFERENTIAL AUTO Neutrophil absolute 4.5 Immature granulocyte absolute 0.0 Lymphocytes absolute 2.4 Monocyte absolute 0.5 Eosinophils absolute 0.3 Basophils, abs 0.0 Neutrophils 58.5 Immature granulocytes 0.5 Lymphocytes 30.3 Monocytes 6.7 Eosinophils 3.4 Basophils 0.6 Narrative: PROTIME-INR PT 11.1 INR 1.04 Narrative: THE COLLECTION LOCATION IS [place] [address] APTT aPTT 29.9 Narrative: THE COLLECTION LOCATION IS [place] [address] ANTIBODY IDENTIFICATION Antibody ID 1 Anti-K Narrative: PREPARE RBC Product code [id number] Unit Number [id number] Product Blood Type OPOS Dispense Status CROSSMATCHED Product code [id number] Unit Number [id number] Product Blood Type OPOS Dispense Status CROSSMATCHED Narrative: Specify Procedure:->I\T\D R lower extremity Are special requirements needed? (all products are leukoreduced)->No THE COLLECTION LOCATION IS [place] [address] LRRBC # of [id number] Reasons:-Hold for procedure (specify procedure)} POCT LACTATE - DEVICE XR Tibia Fibula Right 2 Views Final Result 1. Healing internally fixated proximal right tibia fracture. 2. Healing proximal right fibular fracture. 3. Diffuse soft tissue swelling of the right lower extremity. Dictated by: Leann Andre M.D. The radiology attending physician has personally reviewed this study, and had reviewed and/or edited this written report and agrees with it. Electronically signed by: Brian Rachel M.D. BP 134/64 (BP Location: Right arm, Patient Position: Lying) Pulse 72 Temp 36.6 ??C (97.9 ??F) (Oral) Resp 18 Ht 172.7 cm (5' 8 ) Wt 108.9 kg (240 lb) SpO2 95% BMI 36.49 kg/m?? ED Course as of Jul 30 823 Time: 07/27 2248 Comment: Impression 1. ??Healing internally fixated proximal right tibia fracture. 2. ??Healing proximal right fibular fracture. 3. ??Diffuse soft tissue swelling of the right lower extremity. By: Farhana Linda NP Time: 07/27 2320 Comment: Plan for obs while waiting for ortho and admission. By: Farhana Linda NP Wound infection complicating hardware, initial encounter ([facility]) Documentation provided by Ella Ferrer acting as Scribe for Farhana Linda NP in the provider's presence. I, Farhana Linda NP, have personally performed the services described in the documentation, reviewed the documentation, as recorded by the scribe in my presence, and it accurately and completely records my words and actions. Farhana Linda NP 07/29/18 0860 * Joelle Sutherland - 07/27/2018 9:50 PM CDT Bed: ED3-10 Expected date: Expected time: Means of arrival: Car Comments: Joelle Sutherland 07/27/[id number] * Berenice Ledesma RN - 07/27/2018 4:21 PM CDT Pt broke his tib/fib on 06/11 and had it repaired with plate, pins and danuta on 06/12. Incision site opened up and started draining on Friday a serosanguinous fluid. Pt reports infection appears to be getting worse with more drainage and increased erythema. Sent in by Dr. Magaña his surgeon for admissionand IV antibiotics. documented in this encounter Miscellaneous Notes * Plan of Care - Eleuterio Dill - 07/30/2018 9:51 AM CDT Problem: Health Behavior: Goal: Understanding [...] and injury in home environment Outcome: Progressing Problem: Lack of Knowledge: Goal: Ability to state signs and symptoms to report to health care provider will improve Outcome: Progressing Goal: Understanding of ways to prevent infection will improve Outcome: Progressing Problem: Nutritional: Goal: Nutritional status will improve Outcome: Progressing Problem: Physical Regulation: Goal: Diagnostic test results will improve Outcome: Progressing Goal: Will remain free from infection Outcome: Progressing Goal: Ability to maintain vital signs within normal range will improve Outcome: Progressing Problem: Respiratory: Goal: Ability to maintain normal respiratory secretions will improve Outcome: Progressing Problem: Skin Integrity: Goal: Demonstration of wound healing without infection will improve Outcome: Progressing Goal: Complications related to intravenous access or infusion will be avoided or minimized Outcome: Progressing Goals: Summary: patient is progressing well. * Plan of Care - Robby Ann - 07/29/2018 9:40 PM CDT Problem: Health Behavior: Goal: Understanding [...] and injury in home environment Outcome: Progressing Problem: Lack of Knowledge: Goal: Ability to state signs and symptoms to report to health care provider will improve Outcome: Progressing Goal: Understanding of ways to prevent infection will improve Outcome: Progressing Problem: Nutritional: Goal: Nutritional status will improve Outcome: Progressing Problem: Physical Regulation: Goal: Diagnostic test results will improve Outcome: Progressing Goal: Will remain free from infection Outcome: Progressing Goal: Ability to maintain vital signs within normal range will improve Outcome: Progressing Problem: Respiratory: Goal: Ability to maintain normal respiratory secretions will improve Outcome: Progressing Problem: Skin Integrity: Goal: Demonstration of wound healing without infection will improve Outcome: Progressing Goal: Complications related to intravenous access or infusion will be avoided or minimized Outcome: Progressing Goals: Summary: Patient A&Ox4. Voiding per urinal. Patient stating that pain is partially relieved with oral pain meds. Resting in bed. Will continue to monitor * Plan of Care - Eleuterio Dill - 07/29/2018 11:08 AM CDT Problem: Health Behavior: Goal: Understanding [...] and injury in home environment Outcome: Progressing Problem: Lack of Knowledge: Goal: Ability to state signs and symptoms to report to health care provider will improve Outcome: Progressing Goal: Understanding of ways to prevent infection will improve Outcome: Progressing Problem: Nutritional: Goal: Nutritional status will improve Outcome: Progressing Problem: Physical Regulation: Goal: Diagnostic test results will improve Outcome: Progressing Goal: Will remain free from infection Outcome: Progressing Goal: Ability to maintain vital signs within normal range will improve Outcome: Progressing Problem: Respiratory: Goal: Ability to maintain normal respiratory secretions will improve Outcome: Progressing Problem: Skin Integrity: Goal: Demonstration of wound healing without infection will improve Outcome: Progressing Goal: Complications related to intravenous access or infusion will be avoided or minimized Outcome: Progressing Goals: Summary: patient is progressing at all goals * Plan of Sil - Ania Cronin - 07/29/2018 2:13 AM CDT Problem: Health Behavior: Goal: Understanding [...] and injury in home environment Outcome: Progressing Problem: Lack of Knowledge: Goal: Ability to state signs and symptoms to report to health care provider will improve Outcome: Progressing Goal: Understanding of ways to prevent infection will improve Outcome: Progressing Problem: Nutritional: Goal: Nutritional status will improve Outcome: Progressing Problem: Physical Regulation: Goal: Diagnostic test results will improve Outcome: Progressing Goal: Will remain free from infection Outcome: Progressing Goal: Ability to maintain vital signs within normal range will improve Outcome: Progressing Problem: Respiratory: Goal: Ability to maintain normal respiratory secretions will improve Outcome: Progressing Problem: Skin Integrity: Goal: Demonstration of wound healing without infection will improve Outcome: Progressing Goal: Complications related to intravenous access or infusion will be avoided or minimized Outcome: Progressing Goals: Pain and headache relief * Plan of Care - Carmnia Smart RN - 07/28/2018 5:11 PM CDT Goals: Pain free, improve mobility, monitor wound, free from infection. Summary: * Plan of Sil - Carmina Smart RN - 07/28/2018 4:40 PM CDT Goals: improve ambulation, PT/OT, pain control Summary: * Perioperative Nursing Note - Jody Miles RN - 07/28/2018 4:00 PM CDT Report called [place] [id number]. Patient VSS, tolerating PO liquids and meds.Family at bedside. Patient also urinated 300ml at 1600. Concluded report with next antibiotic due at 1700. * Op Note - Flash Magaña MD - 07/28/2018 11:27 AM CDT Date of Surgery: 07/28/2018 INDICATIONS: Mr. Jain is a 48 y.o. male who sustained a right tibia fracture with wound concerns; he was indicated for debridement and irrigation of his right tibia wound and came to the operatingroom today for this procedure. The risks and benefits of the procedure were discussed prior to the procedure and all questions were answered; consent was obtained. PREOPERATIVE DIAGNOSIS: right tibia fracture with concern for wound infection POSTOPERATIVE DIAGNOSIS: Same. PROCEDURE: 1.right leg sharp excisional debridement and irrigation of skin, subcutaneous tissue 2. Layered closure right leg SURGEON: Flash Magaña MD ASSIST: Rolo Glasgow MD, Marito Ramírez MD ANESTHESIA: general IV FLUIDS AND URINE: See anesthesia. ESTIMATED BLOOD LOSS: 25 mL. IMPLANTS: None SPECIMENS: cultures x5 DRAINS: none COMPLICATIONS: None. DESCRIPTION OF PROCEDURE: The patient was brought to the operating room and placed supine on the operating table. The patient had been signed prior to the procedure and this was documented. The patient had the anesthesia placed by the anesthesiologist. The prep verification and incision time-outs were performed to confirm that this was the correct patient, site, side and location. The patient hadSCDs in place. The patient did receive antibiotics prior to the incision. The patient had the extremity prepped and draped in the standard surgical fashion. The bony landmarks were palpated and the incision was drawn with a marker. The right leg wound was slightly extended with a knife and an excisional debridement was performed:the devitalized skin edges, and subcutaneous tissue were excised with a knife and debrided as needed. The deep tissue appeared healthy. The fascia was intact. There was no purulence. the debridement was in superficial to deep direction from the damaged tissue and in the end all tissue appeared to be healthy and bleeding. The debridement was down to the level of the fascia. There was no gross contamination. The wound measured 5 cm at the end of the debridement. 5 cultures were taken. The wound was located at the mid medial right leg. The wound was copiously irrigated with saline. The wound was closed with 2-0 monocryl for fat and deep dermal layer and 3.0 nylon sutures were used to complete the skin closure. The patient was then transferred back to the bed and left the operating room in stable condition. All sponge and instrument counts were correct. I was present for the vanegas/critical portions of the surgery, including the entire debridement, and immediately available for the remainder of the procedure. POSTOPERATIVE PLAN: Mr. Jain will be maintained on antibiotics and culture results followed up. He may be weight bearing as tolerated. DVT prophylaxis should be determined based on other injuries per the primary team; if possible, we would prefer lovenox. * ED Observation Provider Note - Yun Vences NP - 07/28/2018 7:37 AM CDT Observation Course Physical Exam Constitutional: He is oriented to person, place, and time. He appears well-developed. Cardiovascular: Normal rate. Pulmonary/Chest: Effort normal and breath sounds normal. Neurological: He is alert and oriented to person, place, and time. Skin: Skin is warm and dry. * ED Observation Provider Note - Yun Vences NP - 07/28/2018 7:37 AM CDT Pt remains awaiting OR with ortho. Denies any new or worsening symptoms. VSS. Will cont to monitor. * ED Observation Provider Note - Patsy Jade PA - 07/27/2018 11:51 PM CDT Pt in OBS pending Ortho consult & inpatient bed assignment. documented in this encounter Plan of Treatment Not on file documented as of this encounter Procedures Procedure Name Priority Date/Time Associated Diagnosis Comments CBC WITHOUT DIFFERENTIAL Routine 07/29/2018 11:48 PM CDT BASIC METABOLIC PANEL Routine 07/29/2018 11:48 PM CDT POTASSIUM, WHOLE BLOOD STAT 9 6:01 AM CDT CBC WITHOUT DIFFERENTIAL Routine 07/29/2018 12:16 AM CDT BASIC METABOLIC PANEL Routine 07/29/2018 12:16 AM CDT MYCOLOGY (FUNGAL) CULTURE Routine 07/28/2018 5:55 PM CDT IRRIGATION AND DEBRIDEMENT ? TIBIA 07/28/2018 1:25 PM CDT Infection associated with internal fixation device of right tibia, initial encounter ([facility]) Case Notes Had to change patient class to Surgery admit due to patient not being inpatient and I couldn't sign out of case or Epic. lc TISSUE AEROBIC AND ANAEROBIC CULTURE AND GRAM STAIN Routine 07/28/2018 11:47 AM CDT TISSUE AEROBIC AND ANAEROBIC CULTURE AND GRAM STAIN Routine 07/28/2018 11:47 AM CDT TISSUE AEROBIC AND ANAEROBIC CULTURE AND GRAM STAIN Routine 07/28/2018 11:47 AM CDT TISSUE AEROBIC AND ANAEROBIC CULTURE AND GRAM STAIN Routine 07/28/2018 11:47 AM CDT TISSUE AEROBIC AND ANAEROBIC CULTURE AND GRAM STAIN Routine 07/28/2018 11:47 AM CDT MYCOLOGY (FUNGAL) CULTURE Routine 07/28/2018 11:47 AM CDT MYCOLOGY (FUNGAL) CULTURE Routine 07/28/2018 11:47 AM CDT MYCOLOGY (FUNGAL) CULTURE Routine 07/28/2018 11:47 AM CDT MYCOLOGY (FUNGAL) CULTURE Routine 07/28/2018 11:47 AM CDT MYCOBACTERIOLOGY AFB CULTURE Routine 07/28/2018 11:47 AM CDT MYCOBACTERIOLOGY AFB CULTURE Routine 07/28/2018 11:47 AM CDT MYCOBACTERIOLOGY AFB CULTURE Routine 07/28/2018 11:47 AM CDT MYCOBACTERIOLOGY AFB CULTURE Routine 07/28/2018 11:47 AM CDT MYCOBACTERIOLOGY AFB CULTURE Routine 07/28/2018 11:47 AM CDT ANTIBODY IDENTIFICATION After X-Ray 07/29/19 19 5:20 AM CDT APTT Routine 07/28/2018 1:29 AM CDT PROTIME-INR Routine 07/28/2018 1:29 AM CDT TYPE AND SCREEN Timed 07/28/2018 1:29 AM CDT PREPARE RBC Timed 07/28/2018 1:13 AM CDT XR TIBIA FIBULA RIGHT2 VIEWS ED 07/27/2018 9:12 PM CDT DIFFERENTIAL AUTO STAT 07/27/2018 8:5 7 PM CDT CBC WITH AUTO DIFFERENTIAL STAT 07/27/2018 8:57 PM CDT ERYTHROCYTE SEDIMENTATION RATE STAT 07/27/2018 8:57 PM CDT CRP (ACUTE PHASE) STAT 07/27/2018 8:5 7 PM CDT BASIC METABOLIC PANEL STAT 07/27/2018 8:57 PM CDT documented in this encounter Results * Basic metabolic panel (07/29/2018 11:48 PM CDT) Pathologist [facility] Sodium 139 135 - 145 mmol/L [facility] Potassium, pl 4.6 3.3 - 4.9 mmol/L [facility] Chloride 104 97 - 110 mmol/L [facility] CO2 26 22 - 32 mmol/L [facility] Anion gap 9 2 - 15 mmol/L [facility] BUN 11 8 - 25 mg/dL [facility] Creatinine 0.89 0.80 - 1.30 mg/dL [facility] Glucose 118 70 - 199 mg/dL [facility] Comment: Interpretive Data Fasting glucose >/= 126 [...] interpretive data was last revised 2017. Calcium 9.1 8.5 - 10.3 mg/dL [facility] Blood specimen (specimen) 07/29/2018 11:48 PM CDT 07/30/2018 12:12 AM CDT Narrative [facility] - 07/30/2018 1:01 AM CDT us Felicia Quiñones NP LAB BLOOD ORDERABLES Final Result [facility] [place] [address] * (ABNORMAL) CBC without differential (07/29/2018 11:48 PM CDT) WBC 7.8 3.8 - 9.9 K/cumm [facility] Hgb 12.0(L) 13.0 - 17.5 g/dL [facility] Hct 37.1(L) 38.9 - 50.3 % [facility] Plt 217 150 - 400 K/cumm [facility] MPV 9.2 9.1 - 12.3 fL [facility] RBC 4.02(L) 4.30 - 5.80 M/cumm [facility] MCV 92.3 81.3 - 96.4 fL [facility] MCH 29.9 27.1 - 33.3 pg [facility] MCHC 32.3 32.3 - 35.7 g/dL [facility] RDW CV 13.0 11.1 - 14.9 % [facility] RDW SD 44.0 35.7 - 48.1 fL [facility] NRBC abs 0.00 0.00 - 0.01 K/cumm [facility] Blood specimen (specimen) 07/29/2018 11:48 PM CDT 07/30/2018 12:12 AM CDT Narrative [facility] - 07/30/2018 12:24 AM CDT Felicia Quiñones NP LAB BLOOD ORDERABLES Final Result [facility] Department [place] [address] * (ABNORMAL) Potassium, whole blood (07/29/2018 6:01 AM CDT) Pathologist [facility] Potassium, bld 5.3(H) 3.3 - 4.9 mmol/L [facility] Blood specimen (specimen) 07/29/2018 6:01 AM CDT 07/29/2018 6:34 AM CDT Narrative [facility] - 07/29/2018 6:42 AM CDT Flash Magaña MD LAB BLOOD ORDERABL ES Final Result [facility] One [facility] [place] [address] * (ABNORMAL) Basic metabolic panel (07/29/2018 12:16 AM CDT) [facility] Sodium 140 135 - 145 mmol/L [facility] Potassium, pl 5.4(H) 3.3 - 4.9 mmol/L [facility] Comment:Hemolyzed; (+++); po tassium value may be falsely elevated by as much as 0.6 - 1.0 mmol/L. Suggest redraw and reanalysis. Chloride 106 97 - 110 mmol/L [facility] CO2 27 22 - 32 mmol/L [facility] Anion gap 7 2 - 15 mmol/L [facility] BUN 12 8 - 25 mg/dL [facility] Creatinine 0.79(L) 0.80 - 1.30 mg/dL [facility] Glucose 100 70 - 199 mg/dL [facility] Comment: Interpretive Data Fasting glucose >/= 126 [...] 2017. Calcium 8.7 8.5 - 10.3 mg/dL [facility] Blood specimen (specimen) 07/29/2018 12:16 AM CDT 07/29/2018 1:01 AM CDT Narrative [facility] - 07/29/2018 1:44 AM CDT Felicia Quiñones DICE SPOTTER LAB BLOOD ORDERABLES Final Result [facility] [place] [address] * (ABNORMAL) CBC without differential (07/29/2018 12:16 AM CDT) WBC 6.6 3.8 - 9.9 K/cumm [facility] Hgb 11.4(L) 13.0 - 17.5 g/dL [facility] Hct 35.3(L) 38.9 - 50.3 % [facility] Plt 217 150 - 400 K/cumm [facility] MPV 9.4 9.1 - 12.3 fL [facility] RBC 3.82(L) 4.30 - 5.80 M/cumm [facility] MCV 92.4 81.3 - 96.4 fL [facility] MCH 29.8 27.1 - 33.3 pg [facility] MCHC 32.3 32.3 - 35.7 g/dL [facility] RDW CV 12.8 11.1 - 14.9 % [facility] RDW SD 43.4 35.7 - 48.1 fL [facility] NRBC abs 0.00 0.00 - 0.01 K/cumm [facility] Blood specimen (specimen) 07/29/2018 12:16 AM CDT 07/29/2018 1:01 AM CDT Narrative [facility] - 07/29/2018 1:10 AM CDT us Felicia Quiñones DICE SPOTTER LAB BLOOD ORDERABLES Final Result [facility] [place] [address] * Mycology (fungal) culture Tissue Deep (07/28/2018 5:55 PM CDT) Report Final Report: No growth of fungus [facility] Tissue (Deep) 07/28/2018 5:5 5 PM CDT 07/28/2018 5:55 PM CDT Narrative [facility] - 08/25/2018 8:25 AM CDT Deep fat posterior Specimen collected in the operating room. Testing performed by [facility] ([phone]). Flash Magaña MD LAB MICROBIOLOGY - GENERAL ORDERABLES Final Result Performing Organization Address [facility] Co de Phone Number [facility] Hipolito [facility] Department of [employer] [place] [address] * Tissue aerobic and anaerobic culture and gram stain Tissue Deep (07/28/2018 11:47 AM CDT) Direct Specimen Exam Stain: No polymorphonuclear leukocytes seen. No organisms seen. [facility] Report Final Report: No growth [facility] Tissue (Deep) 07/28/2018 11: 47 AM CDT 07/28/2018 5:52 PM CDT Narrative [facility] - 07/29/2018 7:44 AM CDT Specimen collected in the operating room. 4.deep fat posterior Testing performed by [facility] ([phone]) Specimens submitted from normally sterile body sites will have all bacterial morphotypes identified. Specimens that contain grossly mixed fracisco and/or are from body sites that are not normally sterile will be examined for Staphylococcus aureus, Pseudomonas aeruginosa, beta-hemolytic strep, vancomycin-resistant Enterococcus, Bacteroides fragilis, Clostridium perfringens and fungus. If any of these are isolated, the organism will be reported. Current interpretive data was last revised on 2016. us Flash Magaña MD LAB MICROBIOLOGY - GENERAL ORDERABLES Final Result Performing Organization Address [facility] Co de Phone Number [facility] Hipolito [facility] Department [employer] [place] [address] * Tissue aerobic and anaerobic culture and gram stain Tissue Sinus (07/28/2018 11:47 AM CDT) Direct Specimen Exam Stain: No polymorphonuclear leukocytes seen. No organisms seen. [facility] Report Final Report: No growth [facility] Tissue (Sinus) 07/28/2018 11 :47 AM CDT 07/28/2018 5:48 PM CDT Narrative [facility] - 07/29/2018 7:45 AM CDT Specimen collected in the operating room. 2. SINUS TISSUE DISTAL Testing performed by [facility] ([phone]) Specimens submitted from normally sterile body sites will have all bacterial morphotypes identified. Specimens that contain grossly mixed fracisco and/or are from body sites that are not normally sterile will be examined for Staphylococcus aureus, Pseudomonas aeruginosa, beta-hemolytic strep, vancomycin-resistant Enterococcus, Bacteroides fragilis, Clostridium perfringens and fungus. If any of these are isolated, the organism will be reported. Current interpretive data was last revised on 2016. Flash Magaña MD LAB MICROBIOLOGY - GENERAL ORDERABLES Final Result [facility] One [facility] [place] [address] * Tissue aerobic and anaerobic culture and gram stain Tissue Sinus (07/28/2018 11:47 AM CDT) Direct Specimen Exam Stain: No polymorphonuclear leukocytes seen. No organisms seen. [facility] Report Final Report: No growth [facility] Tissue (Sinus) 07/28/2018 11 :47 AM CDT 07/28/2018 5:36 PM CDT Narrative [facility] - 07/29/2018 7:45 AM CDT Specimen collected in the operating room. 3. SINUS TISSUE CENTRAL Testing performed by [facility] ([phone]) Specimens submitted from normally sterile body sites will have all bacterial morphotypes identified. Specimens that contain grossly mixed fracisco and/or are from body sites that are not normally sterile will be examined for Staphylococcus aureus, Pseudomonas aeruginosa, beta-hemolytic strep, vancomycin-resistant Enterococcus, Bacteroides fragilis, Clostridium perfringens and fungus. If any of these are isolated, the organism will be reported. Current interpretive data was last revised on 2016. us Flash Magaña MD LAB MICROBIOLOGY - GENERAL ORDERABLES Final Result Performing Organization Address [facility] de Phone Number [facility] Hipolito [facility] [place] [address] * (ABNORMAL) Tissue aerobic and anaerobic culture and gram stain Tissue Deep (07/28/2018 11:47 AM CDT) Direct Specimen Exam Stain: No polymorphonuclear leukocytes seen. No organisms seen. [facility] Report Amended Report - Complete: Rare Propionibacterium (Cutibacterium) acnes (.) [facility] Organism PROPIONIBACTERIUM (CUTIBACTERIUM) ACNES [facility] Tissue (Deep) 07/28/2018 11: 47 AM CDT 07/28/2018 5:27 PM CDT Narrative [facility] - 08/05/2018 9:14 PM CDT Specimen collected in the operating room. DEEP FAT ANTERIOR Testing performed by [facility] ([phone]) Specimens submitted from normally sterile body sites will have all bacterial morphotypes identified. Specimens that contain grossly mixed fracisco and/or are from body sites that are not normally sterile will be examined for Staphylococcus aureus, Pseudomonas aeruginosa, beta-hemolytic strep, vancomycin-resistant Enterococcus, Bacteroides fragilis, Clostridium perfringens and fungus. If any of these are isolated, the organism will be reported. Current interpretive data was last revised on 2016. us Flash Magaña MD LAB MICROB IOLOGY - GENERAL ORDERABLES Edited Result - Final Performing Organization Address [facility] Co de Phone Number [facility] Hipolito [facility] [place] [address] * Tissue aerobic and anaerobic culture and gram stain Tissue Sinus (07/28/2018 11:47 AM CDT) Direct Specimen Exam Stain: No polymorphonuclear leukocytes seen. No organisms seen. [facility] Report Final Report: No growth [facility] Tissue (Sinus) 07/28/2018 11 :47 AM CDT 07/28/2018 5:10 PM CDT Narrative [facility] - 07/29/2018 7:46 AM CDT Specimen collected in the operating room. 1. SINUS TISSUE PROXIMAL Testing performed by [facility] ([phone]) Specimens submitted from normally sterile body sites will have all bacterial morphotypes identified. Specimens that contain grossly mixed fracisco and/or are from body sites that are not normally sterile will be examined for Staphylococcus aureus, Pseudomonas aeruginosa, beta-hemolytic strep, vancomycin-resistant Enterococcus, Bacteroides fragilis, Clostridium perfringens and fungus. If any of these are isolated, the organism will be reported. Current interpretive data was last revised on 2016. Flash Magaña MD LAB MICROBIOLOGY - GENERAL ORDERABLES Final Result Performing Organization Address City/[facility]/ZIP Co de Phone Number [facility] Department of [employer] [place] [address] * Mycology (fungal) culture Tissue Leg, right (07/28/2018 11:47 AM CDT) Report Final Report: No growth of fungus [facility] Tissue (Leg, right) 07/28/2018 11:47 AM CDT 07/28/2018 5:32 PM CDT Narrative [facility] - 08/25/2018 8:25 AM CDT Specimen collected in the operating room. Deep fat anterior Testing performed by [facility] ([phone]). us Flash Magaña MD LAB MICROBIOLOGY - GENERAL ORDERABLES Final Result [facility] of [employer] [place] [address] * Mycobacteriology (AFB) culture Tissue Leg, right (07/28/2018 11:47 AM CDT) Report Final Report: No growth of acid-fast bacilli [facility] Tissue (Leg, right) 07/28/2018 11:47 AM CDT 07/28/2018 5:30 PM CDT Narrative [facility] - 09/28/2018 6:59 AM CDT Deep fat anterior Specimen collected in the operating room. Testing performed by [facility] ([phone]). us Flash Magaña MD LAB MICROBIOLOGY - GENERAL ORDERABLES Final Result Performing Organization Address City/[facility]/ZIP Co de Phone Number [facility] [place] [address] * Mycobacteriology (AFB) culture Tissue Deep (07/28/2018 11:47 AM CDT) Report Final Report: No growth of acid-fast bacilli [facility] Tissue (Deep) 07/28/2018 11: 47 AM CDT 07/28/2018 5:56 PM CDT Narrative [facility] - 09/28/2018 6:59 AM CDT Deep fat posterior Specimen collected in the operating room. Testing performed by [facility] ([phone]). us Flash Magaña MD LAB MICROBIOLOGY - GENERAL ORDERABLES Final Result [facility] Department of [employer] [place] [address] * Mycology (fungal) culture Tissue Sinus (07/28/2018 11:47 AM CDT) Report Final Report: No growth of fungus [facility] Tissue (Sinus) 07/28/2018 11 :47 AM CDT 07/28/2018 5:38 PM CDT Narrative [facility] - 08/25/2018 8:25 AM CDT Sinus tissue central Specimen collected in the operating room. Testing performed by [facility] ([phone]). us Flash Magaña MD LAB MICROBIOLOGY - GENERAL ORDERABLES Final Result Performing Organization Address City/[facility] Co de Phone Number [facility] [place] [place] [address] * Mycobacteriology (AFB) culture Tissue Sinus (07/28/2018 11:47 AM CDT) Report Final Report: No growth of acid-fast bacilli [facility] Tissue (Sinus) 07/28/2018 11 :47 AM CDT 07/28/2018 5:40 PM CDT Narrative [facility] - 09/28/2018 6:59 AM CDT Sinus tissue central Specimen collected in the operating room. Testing performed by [facility] ([phone]). us Flash Magaña MD LAB MICROBIOLOGY - GENERAL ORDERABLES Final Result Performing Organization Address [facility] Co de Phone Number [facility] [place] [address] * Mycology (fungal) culture Tissue Sinus (07/28/2018 11:47 AM CDT) Report Final Report: No growth of fungus [facility] Tissue (Sinus) 07/28/2018 11 :47 AM CDT 07/28/2018 5:47 PM CDT Narrative [facility] - 08/25/2018 8:25 AM CDT Sinus tissue distal #2 Specimen collected in the operating room. Testing performed by [facility] ([phone]). us Flash Magaña MD LAB MICROBIOLOGY - GENERAL ORDERABLES Final Result Performing Organization Address City/[facility]/ZIP Co de Phone Number [facility] [place] [address] * Mycobacteriology (AFB) culture Tissue Sinus (07/28/2018 11:47 AM CDT) Report Final Report: No growth of acid-fast bacilli [facility] Tissue (Sinus) 07/28/2018 11 :47 AM CDT 07/28/2018 5:45 PM CDT Narrative [facility] - 09/28/2018 6:59 AM CDT Sinus tissue Distal #2 Specimen collected in the operating room. Testing performed by [facility] ([phone]). us Flash Magaña MD LAB MICROBIOLOGY - GENERAL ORDERABLES Final Result Performing Organization Address [facility] Co de Phone Number [facility] [place] [address] * Mycology (fungal) culture Tissue Leg, right (07/28/2018 11:47 AM CDT) Report Final Report: No growth of fungus [facility] Tissue (Leg, right) 07/28/2018 11:47 AM CDT 07/28/2018 5:21 PM CDT Narrative [facility] - 08/25/2018 8:25 AM CDT Sinus tissue proximal Specimen collected in the operating room. Testing performed by [facility] ([phone]). us Flash Magaña MD LAB MICROBIOLOGY - GENERAL ORDERABLES Final Result Performing Organization Address City/[facility] Co de Phone Number [facility] [place] [address] * Mycobacteriology (AFB) culture Tissue Leg, right (07/28/2018 11:47 AM CDT) Report Final Report: No growth of acid-fast bacilli [facility] Tissue (Leg, right) 07/28/2018 11:47 AM CDT 07/28/2018 5:23 PM CDT Narrative [facility] - 09/28/2018 6:59 AM CDT Sinus tissue proximal Specimen collected in the operating room. Testing performed by [facility] ([phone]). Flash Magaña MD LAB MICROBIOLOGY - GENERAL ORDERABLES Final Result Performing Organization Address City/[facility]/ZIP Co de Phone Number [facility] [place] [address] * Antibody identification (07/28/2018 5:20 AM CDT) Antibody ID 1 Anti-K [facility] Blood specimen (specimen) 07/28/2018 5:20 AM CDT 07/28/2018 5:20 AM CDT Narrative [facility] - 07/28/2018 6:51 AM CDT Lobo King MD PhD LAB BLOOD BANK TEST ORDERABLES Final Result Performing Organization Address [facility] Co de Phone Number [facility] [place] [address] * (ABNORMAL) Type and screen (07/28/2018 1:29 AM CDT) Arnel, indirect Positive(A) [facility] ABO Rh O Positive [facility] Blood specimen (specimen) 07/28/2018 1:29 AM CDT 07/28/2018 2:47 AM CDT Narrative [facility] - 07/28/2018 5:22 AM CDT Has the patient had Daratumumab (Darzalex) in the past 6 months?->Unknown THE BJ COLLECTION LOCATION IS [facility] OBS-[id number] Lobo King MD PhD LAB BLOOD BANK TEST ORDERABLES Final Result Performing Organization Address [facility] de Phone Number [facility] One [facility] [employer] [place] [address] * aPTT (07/28/2018 1:29 AM CDT) aPTT 29.9 25.0 - 37.0 sec [facility] Comment: Interpretive Data Therapeutic heparin range:60.0 - 94.0 sec based on correlation with therapeutic heparin activity range of 0.3 -0.7 Units/mL. Current interpretive data was last revised on 2011. Blood specimen (specimen) 07/28/2018 1:29 AM CDT 07/28/2018 1:38 AM CDT Narrative [facility] - 07/28/2018 2:06 AM CDT THE COLLECTION LOCATION IS [place] [address] us Lobo King MD PhD LAB BLOOD ORDERABLES Final Result Performing Organization Address [facility] de Phone Number [facility] One [facility] of [employer] [place] [address] * Protime-INR (07/28/2018 1:29 AM CDT) PT 11.1 8.5 - 13.0 sec [facility] INR 1.04 0.80 - 1.21 [facility] Comment: Interpretive Data Inpatient therapeutic ranges* Atrial fibrillation ?2.0-3.0 INR Venous thrombo-embolism ?2.0-3.0 INR Bioprosthetic heart valve ?* Mechanical heart valve, bileaflet or tilting disk,aortic position ? 2.0-3.0 INR All other,or bileaflet or tilting disk, in mitral position ? 2.5-3.5 INR *See the pharmacy resource directory (PHRED) for an updated copy of the Tool Book at [email or web address]://[email or web address] Current Interpretive Data was last revised 2011. Blood specimen (specimen) 07/28/2018 1:29 AM CDT 07/28/2018 1:38 AM CDT Narrative [facility] - 07/28/2018 2:06 AM CDT THE BJ COLLECTION LOCATION IS [facility] OBS-09 us Lobo King MD PhD LAB BLOOD ORDERABLES Final Result Performing Organization Address [facility] de Phone Number [facility] [place] [address] * Prepare RBC: 2 Units (07/28/2018 1:13 AM CDT) Product code [id number] [facility] Unit Number [id number] 5-[id number] [facility] Product Blood Type OPOS [facility] Dispense Status RETURNED [facility] Product code [id number] [facility] Unit Number [id number] [id number] [facility] Product Blood Type OPOS [facility] Dispense Status RETURNED [facility] Blood specimen (specimen) 07/28/2018 1:13 AM CDT 07/28/2018 1:12 AM CDT Narrative [facility] - 07/31/2018 8:22 AM CDT Specify Procedure:->I\T\D R lower extremity Are special requirements needed? (all products are leukoreduced)->No THE [facility] COLLECTION LOCATION IS [facility] OBS-09 LRRBC # of [id number] Reasons:-Hold for procedure (specify procedure)} us Lobo King MD PhD BLOOD BANK PRODUCT O RDERABLES Final Result Performing Organization Address [facility] Co de Phone Number [facility] [place] [address] * XR Tibia Fibula Right 2 Views (07/27/2018 9:12 PM CDT) Anatomical Region Laterality Modality Lower Extremities, Lower Leg Right Com puted Radiography 07/27/2018 10:0 5 PM CDT Impressions 07/28/2018 6:16 AM CDT 1. ??Healing internally fixated proximal right tibia fracture. 2. ??Healing proximal right fibular fracture. 3. ??Diffuse soft tissue swelling of the right lower extremity. Dictated by: Leann Andre M.D. The radiology attending physician has personally reviewed this study, and had reviewed and/or edited this written report and agrees with it. Electronically signed by: Brian Rachel M.D. Narrative 07/28/2018 6:16 AM CDT EXAMINATION: Right tibia fibula 2 views HISTORY: Right tibia and fibular fractures, status post internal fixation, now with skin wound drainage. FINDINGS: AP and lateral views of the right tibia and fibula are smooth for interpretation on 3 cassettes and compared to radiographs dated 06/12/2018. ??Transverse fracture of the proximal right fibula is redemonstrated, now with callus formation. ??An oblique fracture of the proximal right tibia is redemonstrated, internally fixated with intramedullary danuta and medial plate and screw fixation, now with callus formation. ??No screw fracture or osteolysis is seen. ??No new fractures identified. ??Soft tissue swelling is seen in the right leg. No soft tissue gas is seen. Procedure Note Brian Rachel MD - 07/28/2018 EXAMINATION: Right tibia fibula 2 views HISTORY: Right tibia and fibular fractures, status post internal fixation, now with skin wound drainage. FINDINGS: AP and lateral views of the right tibia and fibula are smooth for interpretation on 3 cassettes and compared to radiographs dated 06/12/2018. Transverse fracture of the proximal right fibula is redemonstrated, now with callus formation. An oblique fracture of the proximal right tibia is redemonstrated, internally fixated with intramedullary danuta and medial plate and screw fixation, now with callus formation. No screw fracture or osteolysis is seen. No new fractures identified. Soft tissue swelling is seen in the right leg. No soft tissue gas is seen. IMPRESSION: 1. Healing internally fixated proximal right tibia fracture. 2. Healing proximal right fibular fracture. 3. Diffuse soft tissue swelling of the right lower extremity. Dictated by: Leann Andre M.D. The radiology attending physician has personally reviewed this study, and had reviewed and/or edited this written report and agrees with it. Electronically signed by: Brian Rachel M.D. us Saman Rust MD IMG XR PROCEDURES Fin al Result * Differential, auto (07/27/2018 8:57 PM CDT) Neutrophil abs 4.5 1.7 - 6.5 K/cumm [facility] Imm gran abs 0.0 0.0 - 0.1 K/cumm [facility] Lymphocyte abs 2.4 0.8 - 3.3 K/cumm [facility] Monocyte abs 0.5 0.2 - 0.8 K/cumm [facility] Eosinophil abs 0.3 0.0 - 0.5 K/cumm [facility] Basophil abs 0.0 0.0 - 0.1 K/cumm [facility] Neutrophil pct 58.5 % [facility] Comment: Interpretive Data Percent cell count reference ranges are not reported, since discordance with absolute values may lead to misinterpretation of CBC data. Current Interpretive Data was last revised on 2017. Imm gran pct 0.5 % [facility] Comment: Interpretive Data Percent cell count reference ranges are not reported, since discordance with absolute values may lead to misinterpretation of CBC data. Current Interpretive Data was last revised on 2017. Lymphocyte pct 30.3 % [facility] Comment: Interpretive Data Percent cell count reference ranges are not reported, since discordance with absolute values may lead to misinterpretation of CBC data. Current Interpretive Data was last revised on 2017. Monocyte pct 6.7 % [facility] Comment: Interpretive Data Percent cell count reference ranges are not reported, since discordance with absolute values may lead to misinterpretation of CBC data. Current Interpretive Data was last revised on 2017. Eosinophil pct 3.4 % [facility] Comment: Interpretive Data Percent cell count reference ranges are not reported, since discordance with absolute values may lead to misinterpretation of CBC data. Current Interpretive Data was last revised on 2017. Basophil pct 0.6 % [facility] Comment: Interpretive Data Percent cell count reference ranges are not reported, since discordance with absolute values may lead to misinterpretation of CBC data. Current Interpretive Data was last revised on 2017. Blood specimen (specimen) 07/27/2018 8:57 PM CDT 07/27/2018 9:13 PM CDT Narrative [facility] - 07/27/2018 9:21 PM CDT us Adela Can NP LAB BLOOD ORDERABLES Fi nal Result Performing Organization Address City/[facility]/ZIP Co de Phone Number [facility] [employer] [place] [address] * (ABNORMAL) CRP (acute phase) (07/27/2018 8:57 PM CDT) CRP 10.3(H) <=10.0 mg/L [facility] Blood specimen (specimen) 07/27/2018 8:57 PM CDT 07/27/2018 9:12 PM CDT Narrative [facility] - 07/27/2018 9:39 PM CDT THE COLLECTION LOCATION IS us Saman Rust MD LAB BLOOD ORDERABLES Final Result [facility] [place] [address] * (ABNORMAL) Erythrocyte sedimentation rate (07/27/2018 8:57 PM CDT) Erythrocyte sedimentation rate 16(H) 1 - 15 mm/hr [facility] Blood specimen (specimen) 07/27/2018 8:57 PM CDT 07/27/2018 9:12 PM CDT Narrative [facility] - 07/27/2018 10:10 PM CDT THE BJ COLLECTION LOCATION IS us Saman Rust MD LAB BLOOD ORDERABLES Final Result Performing Organization Address [facility]/ZIP Co de Phone Number [facility] [place] [address] * Basic metabolic panel (07/27/2018 8:57 PM CDT) [facility] Sodium 139 135 - 145 mmol/L [facility] Potassium, pl 4.5 3.3 - 4.9 mmol/L [facility] Chloride 101 97 - 110 mmol/L [facility] CO2 26 22 - 32 mmol/L [facility] Anion gap 12 2 - 15 mmol/L [facility] BUN 14 8 - 25 mg/dL [facility] Creatinine 0.85 0.80 - 1.30 mg/dL [facility] Glucose 131 70 - 199 mg/dL [facility] Comment: Interpretive Data Fasting glucose >/= 126 [...] interpretive data was last revised 2017. Calcium 9.6 8.5 - 10.3 mg/dL [facility] Blood specimen (specimen) 07/27/2018 8:57 PM CDT 07/27/2018 9:12 PM CDT Narrative [facility] - 07/27/2018 9:40 PM CDT THE BJ COLLECTION LOCATION IS us Adela Can NP LAB BLOOD ORDERABLES Fi nal Result Performing Organization Address City/[facility]/ZIP Co de Phone Number [facility] [place] [address] * (ABNORMAL) CBC with auto differential (07/27/2018 8:57 PM CDT) WBC 7.8 3.8 - 9.9 K/cumm [facility] Hgb 12.9(L) 13.0 - 17.5 g/dL [facility] Hct 39.0 38.9 - 50.3 % [facility] Plt 268 150 - 400 K/cumm [facility] MPV 9.3 9.1 - 12.3 fL [facility] RBC 4.20(L) 4.30 - 5.80 M/cumm [facility] MCV 92.9 81.3 - 96.4 fL [facility] MCH 30.7 27.1 - 33.3 pg [facility] MCHC 33.1 32.3 - 35.7 g/dL [facility] RDW CV 13.2 11.1 - 14.9 % [facility] RDW SD 45.4 35.7 - 48.1 fL [facility] NRBC abs 0.00 0.00 - 0.01 K/cumm [facility] Blood specimen (specimen) 07/27/2018 8:57 PM CDT 07/27/2018 9:13 PM CDT Narrative [facility] - 07/27/2018 9:21 PM CDT THE BJ COLLECTION LOCATION IS Adela Can [employer] LAB BLOOD ORDERABLES nal Result [facility] [place] [address] documented in this encounter Visit Diagnoses Diagnosis 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)- Primary Wound infection complicating hardware, initial encounter (HCC) documented in this encounter Admitting Diagnoses Diagnosis 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) documented in this encounter Administered Medications Inactive Administered Medications - up to 3 most recent administrations Medication Order MAR Action Action Date Dose Rate Site acetaminophen (TYLENOL) tablet 1,000 mg 1,000 mg, oral, Once, On Fri07/28/18 at 1130, For 1 dose, Pre-Op Given 07/28/2018 10:57 AM CDT 1,000 mg acetaminophen (TYLENOL) tablet 650 mg 650 mg, oral, Once, On Fri07/28/18 at 2230, For 1 dose, Pre-Op Given 07/28/2018 10:28 PM CDT 650 mg ascorbic acid (VITAMIN C) tablet/chewable tablet 4,000 mg 4,000 mg, oral, Daily, First dose on Fri07/28/18 at 1715 Given 07/30/2018 8:13 AM CDT 4,000 mg Given 07/29/2018 9:53 AM CDT 4,000 mg Given 07/28/2018 5:27 PM CDT 4,000 mg carBAMazepine XR (TEGretol XR) extended release tablet 800 mg 800 mg, oral, Nightly, First dose on Fri07/28/18 at 2100 Given 07/29/2018 9:19 PM CDT 800 mg Given 07/28/2018 8:57 PM CDT 800 mg cefepime (MAXIPIME) 2000 mg/20 mL in sterile water (premix) 2,000 mg 2,000 mg, intravenous, at 40 mL/hr, Administer over 30 Minutes, Every 12 hours scheduled, First dose on Fri07/28/18 at 0507, Indications: Bone/Joint InfectionIndications:Bone/Joint Infection New Bag 07/30/2018 8:14 AM CDT 2,000 mg 40 mL/hr New Bag 07/29/2018 9:18 PM CDT 2,000 mg 40 mL/hr New Bag 07/29/2018 10:09 AM CDT 2,000 mg 40 mL/hr enoxaparin (LOVENOX) syringe 40 mg 40 mg, subcutaneous, Daily (for enoxaparin), First dose on Fri07/28/18 at 2100, Indications: VTE Prophylaxis Following Ortho SurgeryIndications:VTE Prophylaxis Following Ortho Surgery Given 07/29/2018 9:18 PM CDT 40 mg Left Lower Abdomen Given 07/28/2018 8:58 PM CDT 40 mg Le ft Lower Abdomen fentaNYL (SUBLIMAZE) preservative free injection 50 mcg 50 mcg, intravenous, Once as needed, breakthrough pain, Starting on Fri07/28/18 at 1204, For 1 dose, Phase I, Administer for uncontrolled or increasing pain while in PACU only. Then proceed to PACU 1st line analgesic., Indications: PainIndications:Pain Given 07/28/2018 12:12 PM CDT 50 mcg HYDROcodone-acetaminophen (NORCO) 5-325 mg per tablet 1 tablet 1 tablet, oral, Once, On Fri07/28/18 at 0014, For 1 dose, Indications: PainIndications:Pain Given 07/28/2018 12:17 AM CDT 1 tablet HYDROcodone-acetaminophen (NORCO) 5-325 mg per tablet 1 tablet 1 tablet, oral, Every 4 hours PRN, 1st line for pain, Starting on Fri07/28/18 at 1344, May repeat in 1 hour if pain is uncontrolled or increasing. Max 2 doses within 1 dosing interval., Indications: PainIndications:Pain Given 07/30/2018 12:13 PM CDT 1 tablet Given 07/30/2018 8:13 AM CDT 1 tablet Given 07/30/2018 4:02 AM CDT 1 tablet ketorolac (TORADOL) injection 30 mg 30 mg, intravenous, Once, On Fri07/28/18 at 1315, For 1 dose, Phase I, For Adult IV push, administer over 15 seconds Given 07/28/2018 12:37 PM CDT 30 mg Lactated Ringer's (LR) infusion 30 mL/hr, intravenous, Continuous, Starting on Fri07/28/18 at 1030, Pre-Op New Bag 07/28/2018 11:47 AM CDT Rate/Dose Verify 07/28/2018 10:48 AM CDT New Bag 07/28/2018 10:04 AM CDT 30 mL/hr 30 mL/hr methocarbamol (ROBAXIN) tablet 750 mg 750 mg, oral, 3 times daily, First dose on Fri07/28/18 at 1715 Given 07/30/2018 8:13 AM CDT 750 mg Given 07/29/2018 9:19 PM CDT 750 mg Given 07/29/2018 4:14 PM CDT 750 mg morphine injection 2 mg 2 mg, intravenous, Administer over 4 Minutes, Once, On Fri07/28/18 at 0552, For 1 dose Given 07/28/2018 6:00 AM CDT 2 m g morphine injection 2 mg 2 mg, intravenous, Administer over 4 Minutes, Once, On Fri07/28/18 at 1130, For 1 dose, Pre-Op Given 07/28/2018 10:57 AM CDT 2 mg morphine injection 2 mg 2 mg, intravenous, Administer over 4 Minutes, Every 4 hours PRN, 2nd line for pain, Starting on Fri07/28/18 at 1643 Given 07/28/2018 5:35 PM CDT 2 mg ondansetron (ZOFRAN) injection 4 mg 4 mg, intravenous, Administer over 2 Minutes, Every 6 hours PRN, nausea, vomiting, if not tolerating PO, Starting on Fri07/28/18 at 1344, Indications: nausea and vomitingIndications:nausea and vomiting ondansetron ODT (ZOFRAN-ODT) disintegrating tablet 4 mg 4 mg, oral, Every 6 hours PRN, nausea, vomiting, Starting on Fri07/28/18 at 1344, Indications: nausea and vomitingIndications:nausea and vomiting pantoprazole DR (PROTONIX) extended release tablet 40 mg 40 mg, oral, Daily, First dose on Fri07/28/18 at 1715, Do not crush, chew, cut, dissolve, open or otherwise manipulate tablet/capsule., Indications: Mucositis ProphylaxisIndications:Mucositis Prophylaxis Given 07/30/2018 8:13 AM CDT 40 mg Given 07/29/2018 9:57 AM CDT 40 mg Given 07/28/2018 5:27 PM CDT 40 mg polyethylene glycol (MIRALAX) packet 17 g 17 g, oral, Daily PRN, constipation, Starting on Fri07/28/18 at 1634, Indications: constipationIndications:constipation psyllium (aspartame) SF (METAMUCIL SF) 3.4 gram packet 1 packet 1 packet, oral, Daily, First dose on Fri07/28/18 at 1715, For 326 days Given 07/30/2018 8:14 AM CDT 1 packet Given 07/29/2018 9:55 AM CDT 1 packet Given 07/28/2018 6:53 PM CDT 1 packet senna-docusate (PERICOLACE) 8.6-50 mg per tablet 2 tablet 2 tablet, oral, 2 times daily, First dose on Fri07/28/18 at 2100, Hold for diarrhea., Indications: constipationIndications:constipation Given 07/30/2018 8:13 AM CDT 2 table ts Given 07/29/2018 9:19 PM CDT 2 tablets Given 07/29/2018 9:54 AM CDT 2 tablets sodium chloride 0.9% flush 0.5-20 mL 0.5-20 mL, intra-catheter, Every 8 hours scheduled, First dose on Fri07/28/18 at 1715, Flush volume based on line type and size. Given 07/30/2018 6:14 AM CDT 10 mL Given 07/29/2018 9:20 PM CDT 10 mL Given 07/28/2018 5:32 PM CDT 10 mL sodium chloride 0.9% flush 0.5-20 mL 0.5-20 mL, intra-catheter, As needed, line care, Starting on Fri07/28/18 at 1634, Flush volume based on line type and size. Flush before and after each use. sodium chloride 0.9% infusion 100 mL/hr, intravenous, Continuous, Starting on Fri07/28/18 at 1300 New 07/28/2018 12:49 PM CDT 100 mL/hr 100 mL/hr vancomycin (VANCOCIN) 1,750 mg in sodium chloride 0.9% 500 mL IVPB 1,750 mg, intravenous, at 258.8 mL/hr, Administer over 120 Minutes, Every 12 hours, First dose on Fri07/28/18 at 0507, Indications: Bone/Joint InfectionIndications:Bone/Join t Infection New 07/30/2018 12:13 PM CDT 1,750 mg 258.8 mL/hr New 07/29/2018 11:41 PM CDT 1,750 mg 258.8 mL/hr New 07/29/2018 10:51 AM CDT 1,750 mg 258.8 mL/hr documented in this encounter Discontinued Medications Medication Sig Discontinue Reason Start Date End Da te cephalexin (KEFLEX) 500 mg capsule TK 1 C PO Q 6 HOURS 07/25/2018 07/28/2018 gabapentin (NEURONTIN) 300 mg capsule Take 1 capsule (300 mg total) by mouth 3 (three) times a day 06/18/2018 07/28/2018 acetaminophen-codeine (TYLENOL with CODEINE #3) 300-30 mg per tablet Take 1 tablet by mouth every 6 (six) hours as needed for pain 07/21/2018 07/28/[address] (NexIUM) 40 mg capsuleIndications:Mu cositis Prophylaxis Take 1 capsule (40 mg total) by mouth daily before breakfast 06/18/2018 07/30/2018 aspirin 325 mg enteric coated tablet Take 1 tablet (325 mg total) by mouth 2 (two) times a day for 14 days For blood clot prevention. Take with food. 06/18/2018 07/30/2018 senna-docusate (PERICOLACE) 8.6-50 mgIndications:constip ation Take 2 tablets by mouth 2 (two) times a day as needed for constipation Stop Taking at Discharge 06/18/2018 07/30/2018 HYDROcodone-acetamino phen (NORCO) 5-325 mg per tabletIndications:Konstantin n Take 1 tablet by mouth every 6 (six) hours as needed for pain Stop Taking at Discharge 07/06/2018 07/30/2018 mupirocin (BACTROBAN) 2 % ointment APPLY TO WOUND D AND PRN Stop Taking at Discharge 07/20/2018 07/30/2018 documented as of this encounter Active and Recently Administered Medications Times are shown in CDT. Scheduled Medication Order 07/28/2018 07/29/2018 07/30/2018 acetaminophen (TYLENOL) tablet 1,000 mg (COMPLETED) 1,000 mg, oral, Once, On Fri07/28/18 at 1130, For 1 dose, Pre-Op 1057 (Given - Provider: Gisela Britton RN) acetaminophen (TYLENOL) tablet 650 mg (COMPLETED) 650 mg, oral, Once, On Fri07/28/18 at 2230, For 1 dose, Pre-Op 2228 (Given - Provider: Ania Cronin) ascorbic acid (VITAMIN C) tablet/chewable tablet 4,000 mg 4,000 mg, oral, Daily, First dose on Fri07/28/18 at 1715 1727 (Given - Provider: Carmina Smart RN) 0972 (Given - Provider: Eleuterio Dill) 0813 (Given - Provider: Eleuterio Dill) carBAMazepine XR (TEGretol XR) extended release tablet 800 mg 800 mg, oral, Nightly, First dose on Fri07/28/18 at 2100 2056 (Given - Provider: Ania Cronin) 2118 (Given - Provider: Robby Ann) cefepime (MAXIPIME) 2000 mg/20 mL in sterile water (premix) 2,000 mg 2,000 mg, intravenous, at 40 mL/hr, Administer over 30 Minutes, Every 12 hours scheduled, First dose on Fri07/28/18 at 0507, Indications: Bone/Joint Infection 0548 (New Bag - Provider: Tanisha Moncada RN)0615 (Stopped - Provider: Tanisha Moncada RN)0946 (JUN Hold - Provider: Automatic Transfer Provider - Reason: Patient not available)1620 (JUN Unhold - Provider: Automatic Transfer Provider)1903 (New Bag - Provider: Carmina Smart RN) 1009 (New Bag - Provider: Eleuterio Dill)2117 (New Bag - Provider: Robby Ann) 0814 (New Bag - Provider: Eleuterio [place]ill) enoxaparin (LOVENOX) syringe 40 mg 40 mg, subcutaneous, Daily (for enoxaparin), First dose on Fri07/28/18 at 2100, Indications: VTE Prophylaxis Following Ortho Surgery 2057 (Given - Provider: Ania Cronin) 2117 (Given - Provider: Robby Ann) fosfomycin (MONUROL) packet 3 g 3 g, oral, Every 2 weeks, First dose on Fri08/09/18 at 0800, For 23 days, Pour contents of packet into 3-4 oz of cool water, stir to dissolve and administer immediately., Indications: Urinary Tract/Genitourinary Infection HYDROcodone-acetaminoph en (NORCO) 5-325 mg per tablet 1 tablet (COMPLETED) 1 tablet, oral, Once, On Fri07/28/18 at 0014, For 1 dose, Indications: Pain 0017 (Given - Provider: Tanisha Moncada RN) ketorolac (TORADOL) injection 30 mg (COMPLETED) 30 mg, intravenous, Once, On Fri07/28/18 at 1315, For 1 dose, Phase I, For Adult IV push, administer over 15 seconds 1237 (Given - Provider: Estephania Goodman RN) methocarbamol (ROBAXIN) tablet 750 mg 750 mg, oral, 3 times daily, First dose on Fri07/28/18 at 1715 1727 (Given - Provider: Carmina Smart RN)2228 (Given - Provider: Ania Cronin) 0954 (Given - Provider: Eleuterio Dill)161 (Given - Provider: Eleuterio Dill)211 (Given - Provider: Robby Ann) 0813 (Given - Provider: Eleuetrio Dill)1600 (Due) morphine injection 2 mg (COMPLETED) 2 mg, intravenous, Administer over 4 Minutes, Once, On Fri07/28/18 at 0552, For 1 dose 0600 (Given - Provider: Tanisha Moncada RN) morphine injection 2 mg (COMPLETED) 2 mg, intravenous, Administer over 4 Minutes, Once, On Fri07/28/18 at 1130, For 1 dose, Pre-Op 1057 (Given - Provider: Gisela Britton RN) pantoprazole DR (PROTONIX) extended release tablet 40 mg 40 mg, oral, Daily, First dose on Fri07/28/18 at 1715, Do not crush, chew, cut, dissolve, open or otherwise manipulate tablet/capsule., Indications: Mucositis Prophylaxis 172 (Given - Provider: Carmina Smart RN) 0957 (Given - Provider: Eleuterio Dill) 0813 (Given - Provider: Eleuterio Dill) psyllium (aspartame) SF (METAMUCIL SF) 3.4 gram packet 1 packet 1 packet, oral, Daily, First dose on Fri07/28/18 at 1715, For 326 days 1853 (Given - Provider: Carmina Smart RN) 0955 (Given - Provider: Eleuterio Dill) 0814 (Given - Provider: Eleuterio Dill) senna-docusate (PERICOLACE) 8.6-50 mg per tablet 2 tablet 2 tablet, oral, 2 times daily, First dose on Fri07/28/18 at 2100, Hold for diarrhea., Indications: constipation 2056 (Given - Provider: Ania Cronin) 0954 (Given - Provider: Eleuterio Dill)2118 (Given - Provider: Robby Ann) 0813 (Given - Provider: Eleuterio Dill) sodium chloride 0.9% flush 0.5-20 mL 0.5-20 mL, intra-catheter, Every 8 hours scheduled, First dose on Fri07/28/18 at 1715, Flush volume based on line type and size. 1732 (Given - Provider: Carmina Smart RN)2241 (Not Given - Provider: Ania Cronin - Reason: Other) 0702 (Not Given - Provider: Ania Cronin - Reason: Other)1458 (Not Given - Provider: Eleuterio Dill - Reason: Order parameters not met)2120 (Given - Provider: Robby Ann) 0614 (Given - Provider: Robby Ann)1407 (Not Given - Provider: Eleuterio Dill - Reason: Other) vancomycin (VANCOCIN) 1,750 mg in sodium chloride 0.9% 500 mL IVPB 1,750 mg, intravenous, at 258.8 mL/hr, Administer over 120 Minutes, Every 12 hours, First dose on Fri07/28/18 at 0507, Indications: Bone/Joint Infection 0640 (New Bag - Provider: Nimo Fernandez RN)0906 (Stopped - Provider: Nimo Fernandez RN)0946 (JUN Hold - Provider: Automatic Transfer Provider - Reason: Patient not available)1620 (JUN Unhold - Provider: Automatic Transfer Provider)2230 (New Bag - Provider: Ania Cronin) 1051 (New Bag - Provider: Eleuterio Dill)2341 (New Bag - Provider: Robby Ann) 1213 (New Bag - Provider: Eleuterio Dill) Continuous Medication Order 07/28/2018 07/29/2018 07/30/2018 Lactated Ringer's (LR) infusion (CANCELED) 30 mL/hr, intravenous, Continuous, Starting on Fri07/28/18 at 1030, Pre-Op 1004 (New Bag - Provider: Gisela Britton RN)1048 (Rate/Dose Verify - Provider: Marga Rocha CRNA)1128 (Anesthesia Volume Adjustment - Provider: Marga Rocha CRNA)1147 (New Bag - Provider: Marga Rocha CRNA)1219 (Continued from OR - Provider: Estephania Goodman RN) sodium chloride 0.9% infusion 100 mL/hr, intravenous, Continuous, Starting on Fri07/28/18 at 1300 1249 (New Bag - Provider: Estephania Goodman RN) sodium chloride 0.9% infusion 50 mL/hr, intravenous, Continuous, Starting on Fri07/28/18 at 1245, May discontinue when tolerating PO 1240 (Not Given - Provider: Estephania Goodman RN - Reason: Order parameters not met) PRN Medication Order 07/28/2018 07/29/2018 07/30/2018 calcium carbonate (TUMS) chewable tablet 1,000 mg 1,000 mg, oral, 2 times daily PRN, heartburn, Starting on Fri07/28/18 at 1639, For 325 days cyclobenzaprine (FLEXERIL) tablet 10 mg 10 mg, oral, 3 times daily PRN, muscle spasms, Starting on Fri07/28/18 at 1639 diphenhydrAMINE (BENADRYL) tab/cap 25 mg 25 mg, oral, Every 6 hours PRN, itching, Starting on Fri07/28/18 at 1639, Indications: Urticaria fentaNYL (SUBLIMAZE) preservative free injection 50 mcg (COMPLETED) 50 mcg, intravenous, Once as needed, breakthrough pain, Starting on Fri07/28/18 at 1204, For 1 dose, Phase I, Administer for uncontrolled or increasing pain while in PACU only. Then proceed to PACU 1st line analgesic., Indications: Pain 1212 (Given - Provider: Estephania Goodman RN) HYDROcodone-acetaminophen (NORCO) 5-325 mg per tablet 1 tablet 1 tablet, oral, Every 4 hours PRN, 1st line for pain, Starting on Fri07/28/18 at 1344, May repeat in 1 hour if pain is uncontrolled or increasing. Max 2 doses within 1 dosing interval., Indications: Pain 1413 (Given - Provider: Gisela Yanez RN)2056 (Given - Provider: Ania Cronin) 0102 (Given - Provider: Ania Cronin)0509 (Given - Provider: Ania Cronin)0954 (Given - Provider: Eleuterio Dill)1445 (Given - Provider: Eleuterio Dill)1908 (Given - Provider: Eleuterio Dill)2341 (Given - Provider: Robby Ann) 0402 (Given - Provider: Robby Ann)0813 (Given - Provider: Eleuterio Dill)1213 (Given - Provider: Eleuterio Dill) morphine injection 2 mg 2 mg, intravenous, Administer over 4 Minutes, Every 4 hours PRN, 2nd line for pain, Starting on Fri07/28/18 at 1643 1735 (Given - Provider: Carmina Smart RN) ondansetron (ZOFRAN) injection 4 mg(Linked Group 1) 4 mg, intravenous, Administer over 2 Minutes, Every 6 hours PRN, nausea, vomiting, if not tolerating PO, Starting on Fri07/28/18 at 1344, Indications: nausea and vomiting ondansetron ODT (ZOFRAN-ODT) disintegrating tablet 4 mg(Linked Group 1) 4 mg, oral, Every 6 hours PRN, nausea, vomiting, Starting on Fri07/28/18 at 1344, Indications: nausea and vomiting polyethylene glycol (MIRALAX) packet 17 g 17 g, oral, Daily PRN, constipation, Starting on Fri07/28/18 at 1634, Indications: constipation sodium chloride 0.9 % irrigation (CANCELED) As needed, Starting on Fri07/28/18 at 1159, Intra-Op 1159 (Given - Provider: Flash Magaña MD - Comment: Used with cysto tibing) sodium chloride 0.9 % irrigation (CANCELED) As needed, Starting on Fri07/28/18 at 1200, Intra-Op 1200 (Given - Provider: Flash Magaña MD - Comment: given to field) sodium chloride 0.9% flush 0.5-20 mL 0.5-20 mL, intra-catheter, As needed, line care, Starting on Fri07/28/18 at 1634, Flush volume based on line type and size. Flush before and after each use. tobramycin (NEBCIN) topical irrigation (CANCELED) As needed, Starting on Fri07/28/18 at 1200, Intra-Op 1200 (Given - Provider: Flash Magaña MD - Comment: Surgical site) vancomycin (VANCOCIN) solution (CANCELED) As needed, Starting on Fri07/28/18 at 1200, Intra-Op 1200 (Given - Provider: Flash Magaña MD - Comment: surgical site) Linked Groups Order Group 1: ondansetron ODT (ZOFRAN-ODT) disintegrating tablet 4 mgJump to med 4 mg, oral, Every 6 hours PRN, nausea, vomiting, Starting on Fri07/28/18 at 1344, Indications: nausea and vomiting Or ondansetron (ZOFRAN) injection 4 mgJump to med 4 mg, intravenous, Administer over 2 Minutes, Every 6 hours PRN, nausea, vomiting, if not tolerating PO, Starting on Fri07/28/18 at 1344, Indications: nausea and vomiting documented in this encounter Orders Medications Ordered That Solomon ht Not Have Been Administered Count Last Ordered Date First Ordered Date calcium carbonate (TUMS) lee wable tablet 1,000 mg 1 07/28/2018 cefepime (MAXIPIME) 2000 mg/ 20 mL in sterile water (premix) 2,000 mg 1 07/28/2018 cyclobenzaprine (FLEXERIL) tablet 10 mg 1 0 07/28/2018 diphenhydrAMINE (BENADRYL) tab/cap 25 mg 1 07/28/2018 fosfomycin (MONUROL) packet 3 g 1 9 HYDROmorphone (DILAUDID) injection 0.2 mg 1 07/28/2018 methocarbamol (ROBAXIN) tablet 750 mg 1 naloxone (NARCAN) 0.4 mg/mL injection 0.04-0.4 mg 1 07/28/2018 ondansetron (ZOFRAN) injection 4 mg 2 07/28 ondansetron ODT (ZOFRAN-ODT) disintegrating tablet 4 mg 1 07/28/2018 polyethylene glycol (MIRALAX) packet 17 g 1 07/28/2018 prochlorperazine (COMPAZINE) injection 10 mg 1 07/28/2018 sodium chloride 0.9 % irrigation 2 07/29/19 19 sodium chloride 0.9% flush 0.5-20 mL 2 07/07 sodium chloride 0.9% infusion 1 07/28/2018 sodium chloride 0.9% IVPB 0-500 mL 1 2018 tobramycin (NEBCIN) topical irrigation 1 vancomycin (VANCOCIN) solution 1 07/28/2018 Lab Orders Without Results Count Last Ordered D ate First Ordered Date POCT LACTATE - DEVICE 1 07/27/2018 Diet Count Last Ordered Date First Orde red Date ADULT DISCHARGE DIET 1 07/30/2018 Nursing Count Last Ordered Date First Orde red Date DISCHARGE CALL PROVIDER 9 07/30/2018 DISCHARGE INSTRUCTIONS 7 07/30/2018 FOLLOW UP PRIMARY PHYSICIAN 1 07/30/2018 Consult Count Last Ordered Date First Orde red Date IP CONSULT TO ORTHOPEDIC SURGERY 1 07/28/19 19 Admission Count Last Ordered Date First Orde red Date ASSIGN PATIENT STATUS 2 07/28/2018 CORE MEASURES Count Last Ordered Date First Ord ered Date REASON FOR NO VTE PROPHYLAXIS AT ADMISSION 1 07/28/2018 ADT Patient Update Count Last Ordered Date Firs t Ordered Date ED IP DECISION TO ADMIT 1 07/28/[address] IN ED OBSERVATION 1 07/27/2018 documented in this encounter Care Teams Automotive Project 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
--- OUTSIDE RECORDS SUMMARY | 2024-03-26 21:38 | XMS_ITS | Encounter Summary ---
Author Organization [facility] Address [address] [place] [address] Phone Care Team Providers Care Beauty Operator Apprentice Name Role Phone Jose Mo MD Primary Care Provider [phone] Reason for Visit * Reason Comments Post-op Encounter Details Date Type Department Care Team (Late st Contact Info) Description 07/06/2018 9:00 AM CDT Office Visit [facility] Orthopaedic Surgery [address] [facility] Medicine 6th [place] [address] [place] [address] Flash Magaña MD [address] [facility] [address] [place] [address] Displaced transverse fracture of shaft of right fibula, initial encounter for closed fracture (Primary Dx) Social History Tobacco Use Types Packs/Day Years Used Date Smoking Tobacco: Every Day Cigarettes Smokeless Tobacco: Never Sex and Gender Information Value Date Recorded Sex Assigned at Not on file Legal Sex Male 6:24 PM AN/SSN 2 4 OPERATOR Gender Identity Male 04/18/2020 9:24 AM AN/SSN 2 4 OPERATOR Sexual Orientation Straight 04/18/2020 9: 24 AM AN/SSN 2 4 OPERATOR documented as of this encounter Ordered Prescriptions Prescription Sig Dispense Quantity Refills Last Filled Start Date End Date HYDROcodone-acetam inophen (NORCO) 5-325 mg per tabletIndications: Pain Take 1 tablet by mouth every 6 (six) hours as needed for pain 30 tablet 07/06/2018 07/30/2018 documented in this encounter Progress Notes * Flash Magaña MD - 07/06/2018 9:00 AM CDT Status post ORIF intramedullary nail right proximal tibia and fibula fracture performed 12 June 2018. Subjective: Patient has new complaints of pain. Denies fevers, chills, wound redness or drainage. Pain: mild and moderate. Requesting of physical therapy with his normal patient physical therapist Objective: Patient is healthy-appearing and well-groomed, in no apparent distress. Patient is oriented to time, place, and person. Incision healing well, no drainage or erythema; no deformity or crepitation. Range of motion: diminished range with pain. Leg warm and well-perfused, capillary refill <2 seconds. Sensory motor exam at baseline which is altered. Imaging: No radiographs obtained today Assessment: Mr. Jain is a 48 y.o. male who sustained a right side proximal tibia fracture status post plate in nail fixation. Plan: 1) NWB. 2) Return to clinic in 1 months with repeat radiographs right tibia and fibula 3) Pain management: Tylenol 4) Splinting/bracing/casting: CAM walker boot 5) Physical therapy: Prescription provided for range of motion ankle in the 6) Bone health: As prescribed 7) Call with any questions. 8) Work status: no work documented in this encounter Plan of Treatment Not on file documented as of this encounter Visit Diagnoses Diagnosis Displaced transverse fracture of shaft of right fibula, initial encounter for closed fracture- Primary documented in this encounter Discontinued Medications Medication Sig Discontinue Reason Start Date End Da te HYDROcodone-acetaminophe n (NORCO) 5-325 mg per tabletIndications:Pain Take 2 tablets by mouth every 4 (four) hours as needed for pain Reorder 06/15/2018 07/06/2018 documented as of this encounter Care Teams Beauty Operator Apprentice Relationship Specialty Start Date End Date Jose Mo MD [address] [facility] [address] [place] [id number] PCP - General 06/02/17 08/21/18 documented as of this encounter
--- OUTSIDE RECORDS SUMMARY | 2024-03-26 21:38 | XMS_ITS | Encounter Summary ---
Author Organization [facility] Facility Care Team Providers Care Transformer Shop Supervisor Name Role Phone Jose Mo MD Primary Care Provider [phone] Encounter Details Date Type Department Care Team (Latest Contact Info) Description 07/28/2018 Travel Social History Tobacco Use Types Packs/Day Years Used Date Smoking Tobacco: Every Day Cigarettes Smokeless Tobacco: Never Alcohol Use Standard Drinks/Week Comments Not Currently 0 (1 standard drink = 0.6 oz pur e alcohol) Sex and Gender Information Value Date Recorded Sex Assigned at Not on file Legal Sex Male 6:24 PM CLOTH PACKER Gender Identity Male 04/18/2020 9:24 AM CLOTH PACKER Sexual Orientation Straight 04/18/2020 9: 24 AM CLOTH PACKER documented as of this encounter Plan of Treatment Not on file documented as of this encounter Visit Diagnoses Not on filedocumented in this encounter Care Teams Transformer Shop Supervisor Relationship Specialty Start Date End Date Jose Mo MD [address] [address] PCP - General 06/02/17 08/21/18 documented as of this encounter
--- OUTSIDE RECORDS SUMMARY | 2024-03-26 21:38 | XMS_ITS | Encounter Summary ---
Author Organization [facility] Healthcare Address [address] [place] [address] Care Team Providers Care Help Desk Specialist Name Role Phone Jose Mo MD Primary Care Provider [phone] Reason for Visit * Reason Comments Wound Infection Post-op Problem Encounter Details Date Type Department Care Team (Late st Contact Info) Description 07/28/2018 11:20 AM CDT - 07/28/2018 1:55 PM CDT Surgery [facility] Operating Room [address] [place] [address] Flash Magaña MD [address] [facility] 6A/6B[address]12A [place] [address] IRRIGATION AND DEBRIDEMENT ? TIBIA Surgery Details Date/Time Status Location OR Service Patient Class Case Class Case Type Trauma Case? 07/28/2018 11:20 AM Posted [facility] OR POD 2 205 Orthopaedics Surgery Admit Elective Panel 1 Procedure LRB Anes Op Region Wound Class Comments IRRIGATION AND DEBRIDEMENT ? TIBIA Right General Leg Lower Class IV - Dirty or Infected Surgeon Surgeon Role Service Panel Flash Magaña MD Primary Orthopaed ics 1 Martio Ramírez MD Resident - Assisting Minor Procedures 1 Rolo Glasgow MD Fellow Orthopaedics 1 Case Notes Had to change patient class to Surgery admit due to patient not being inpatient and I couldn't sign out of case or [facility]. documented in this encounter Social History Tobacco Use Types Packs/Day Years Used Date Smoking Tobacco: Every Day Cigarettes Smokeless Tobacco: Never Alcohol Use Standard Drinks/Week Comments Not Currently 0 (1 standard drink = 0.6 oz pur e alcohol) Sex and Gender Information Value Date Recorded Sex Assigned at Not on file Legal Sex Male 6:24 PM VISUAL COORDINATOR Gender Identity Male 04/18/2020 9:24 AM VISUAL COORDINATOR Sexual Orientation Straight 04/18/2020 9: 24 AM VISUAL COORDINATOR documented as of this encounter Last Filed Vital Signs Vital Sign Reading Time Taken Comments Blood Pressure 104/58 07/28/2018 1:40 PM CDT Pulse 72 07/28/2018 1:50 PM CDT Temperature 36.4 ??C (97.5 ??F) 07/28/2018 1:00 PM CD T Respiratory Rate 10 07/28/2018 1:50 PM CDT Oxygen Saturation 96% 07/28/2018 1:50 PM CDT Inhaled Oxygen Concentration - - Weight 108.9 kg (240 lb) 07/28/2018 9:50 AM CDT Height 172.7 cm (5' 8 ) 07/28/2018 9:50 AM CDT Body Mass Index 36.49 07/28/2018 9:50 AM CDT documented in this encounter Discharge Summaries * Kristyn Gramajo NP - 07/30/2018 11:18 AM CDT Inpatient Discharge Summary Admitting Provider: Flash Magaña MD Discharge Provider: Flash Irby* Primary Care Physician at Discharge: Jose Mo MD [phone] Primary Discharge Diagnosis: Right tibia fracture with [...] stable condition. Angus Jain Home Medication Instructions CAMRON:[id number] Printed on:07/30/18 2981 Medication Information ascorbic acid (VITAMIN C) 1,000 [...] Follow-up: Dr. Flash Magaña on 08/13 at [facility] 6A: [facility] ([facility]), [address] [place] [address]. Condition on Discharge: Stable Cosigned by Flash Magaña MD at 07/30/2018 4:31 PM CDT documented in this encounter Discharge Instructions * Discharge Instructions* Kristyn Gramajo NP - 07/30/2018 11:17 AM CDT Images from the original note were not included. MD Orlando Lopez MD Marschall B. Berkes, MD Department of Orthopaedic Surgery ([facility]) MOST COMMONLY ASKED QUESTIONS & ANSWERS FOR [...] Applications are available for download from the [place] and [place] DMV websites or from your dedicated intermodal truck driver???s license facility. Also, our medical assistants [...] Laws vary state by state; but in [place] and [place] there are no laws prohibiting driving after orthopedic surgery. If you are involved in a car accident, law enforcement will determine your ability to drive on a case by case basis. Please check your own state laws if driving outside of [place] or [place]. Some insurance companies may have policies restricting [...] call Aliya Abarca Stephanie or Mireya at [phone] between 8:00 am and 4:00 pm, Friday [...] please give our office a call at [phone]. Dr. Palacios, Dr. Pantoja and Dr. Magaña have four medical assistants. The medical assistants can bereached at [phone]. Please understand that they are in clinic on certain days and will return your phone call, as soon as possible. If you have specific questions about the scheduling of a future orthopaedic surgery to be performedby Dr. Palacios, Dr. Pantoja or Dr. Magaña, please call Tiki Lopez MA at [phone]. documented in this encounter Medications at Time [...] -Activity: WBAT RLE, PT -Pain control: PO [place] -Antibiotics: vanc/cefe -Diet: regular diet -Anticoagulation: lovenox -Dispo: home today * Gloria Real, PT - 07/29/2018 1:55 PM CDT Physical Therapy As supervising physical therapist, I agree with and cosign all documentation provided on this date by YANIV Webster for PT documentation/care for this patient. Gloria Real, PT 07/29/18 * So Pepper - 07/29/2018 1:44 [...] with that after discharge. PT spoke with STOGIE PACKER, Felicia, after consultation with patient and discussed discharging the patient without a formal PT evaluation. Felicia agreed with the consultation, and expressed that she was also comfortable with his mobility and desire to progress with outpatient PT. Cosigned by Gloria Real, PT at 08/26/2018 7:51 AM CDT * [...] Responsibility Patient/Designated decision maker was informed of [facility] fiduciary relationship as necessary Chart reviewed for medical necessity. Patient admitted for treatment of: Wound infection following tibial-fibula fx in 06/23. I&D doneyesterday. On IV abx. Likely able to do po abx at discharge Information obtained from: patient and sig other Insurance verified as: [employer] PPO Verified PCP: Dr Jose Mo [...] agencies. If [place] needed, will refer to [facility] [place]. Problem: Establish a safe discharge Goal: [...] -Activity: WBAT RLE, PT -Pain control: PO [place] -Antibiotics: vanc/cefe -Diet: regular diet -Anticoagulation: lovenox [...] silt dp/sp/s/s/tibial nerves Motor Exam- RLE ehl/fhl/ta/gs 07/10 Lab/Radiology/Diagnostic Review: Laboratory review: Chemistry BMP Lab [...] Fernando/Attending - Archana Patient (home) Insurance: Payor: [employer] / Plan[place]ESS [place] / Product Type: *No Product type* [...] C PO Q 6 HOURS 07/25/18 Historical Provider, cyclobenzaprine (FLEXERIL) 10 mg tablet Take 1 [...] daily as needed for rash 06/18/18 Felicia Josue NP methocarbamol (ROBAXIN) 750 mg tablet Take 1 tablet (750 mg total) by mouth 3 (three) times a day 07/21/18 Flash Magaña MD mupirocin (BACTROBAN) 2 % ointment APPLY TO WOUND D AND PRN 07/20/18 Historical MD Randi psyllium, aspartame, SF (METAMUCIL SF) 3.4 gram [...] ppx Lobo King MD, PhD Orthopaedic Surgery PGY-3 Cosigned by Flash Magaña MD at 07/28/2018 [...] 07/28/2018 5:13 PM CDT Pt arrived to [address] s/p I&D of right tib/fib and IV abx's. Pt alert and oriented x 4, oriented to room and surrounds, call light placed in reach and pt bedrest at this time. All VSS, pt voices noconcerns or request, family at bedside. documented in this encounter ED Notes * MaddiTahirMARCY england - 07/27/2018 9:52 PM CDT HPI Chief [...] of the percutaneous incisions. Pt went to [facility] in [place] ED 07/25/18, received shot of Rocephin and [...] with internal fixation device of right tibia ([facility]) 07/27/2018 ??? Closed displaced oblique fracture of shaft of right tibia 06/11/2018 ??? Displaced transverse fracture of shaft of right fibula, initial encounter for closed fracture 06/11/2018 ??? Quadriparesis ([facility]) 09/23/2017 ??? Seizures ([facility]) 09/23/2017 ??? Encounter for long-term (current) use [...] past 6 months?->Unknown THE COLLECTION LOCATION [facility] OBS-09 CBC WITHOUT DIFFERENTIAL - Abnormal WBC [...] 1. SINUS TISSUE PROXIMAL Testing performed by [facility] ([phone]) Specimens submitted from normally sterile body sites [...] room. DEEP FAT ANTERIOR Testing performed by [facility] ([phone]) Specimens submitted from normally sterile body sites [...] 3. SINUS TISSUE CENTRAL Testing performed by [facility] ([phone]) Specimens submitted from normally sterile body sites [...] 2. SINUS TISSUE DISTAL Testing performed by [facility] ([phone]) Specimens submitted from normally sterile body sites [...] room. 4.deep fat posterior Testing performed by [facility] ([phone]) Specimens submitted from normally sterile body sites [...] INR 1.04 Narrative: THE COLLECTION LOCATION [facility] OBS-09 APTT aPTT 29.9 Narrative: THE COLLECTION LOCATION IS [facility] OBS-09 ANTIBODY IDENTIFICATION Antibody ID 1 Anti-K Narrative: PREPARE RBC Product code [id number] Unit Number [id number] Product Blood Type OPOS Dispense Status CROSSMATCHED Product code [id number] Unit Number [id number] Product Blood Type OPOS Dispense Status CROSSMATCHED Narrative: Specify Procedure:->I\T\D R lower extremity Are special requirements needed? (all products are leukoreduced)->No THE COLLECTION LOCATION IS [facility] OBS-09 [facility] # of [id number] Reasons:-Hold for procedure (specify procedure)} POCT LACTATE [...] extremity. By: Farhana Linda NP Time: 07/27 6684 Comment: Plan for obs while waiting for ortho and admission. By: Farhana Linda NP Wound infection complicating hardware, initial encounter ([facility]) Documentation provided by Ella Ferrer acting as Scribe for Farhana Linda NP in the provider's presence. I, Farhana Linda NP, have personally performed the services described in the documentation, reviewed the documentation, as recorded by the scribe in my presence, and it accurately and completely records my words and actions. Farhana Linda NP 07/29/18 0826 * Joelle Sutherland - 07/27/2018 9:50 PM CDT Bed: ED3-10 Expected date: Expected time: Means of arrival: Car Comments: Joelle Koko 07/27/182149 * Berenice Ledesma RN - 07/27/2018 [...] patient is progressing at all goals * Ania Rodríguez - 07/29/2018 2:13 AM CDT Problem: Health [...] headache relief * Plan of Care - Carmina Smart RN - 07/28/2018 5:11 PM CDT Goals: Pain free, improve mobility, monitor wound, free from infection. Summary: * Plan of Care - Carmina Smart RN - 07/28/2018 4:40 PM CDT Goals: improve ambulation, PT/OT, pain control Summary: * Perioperative Nursing Note - Jody Miles RN - 07/28/2018 4:00 PM CDT Report called [place] [id number]. Patient VSS, tolerating PO liquids and meds.Family [...] fixation device of right tibia, initial encounter ([facility]) Case Notes Had to change patient class [...] Basic metabolic panel (07/29/2018 11:48 PM CDT) Sodium 139 135 - 145 mmol/L [facility] Potassium, pl 4.6 3.3 - 4.9 mmol/L [facility] Chloride 104 97 - 110 mmol/L [facility] CO2 26 22 - 32 mmol/L [facility] Anion gap 9 2 - 15 mmol/L [facility] BUN 11 8 - 25 mg/dL [facility] Creatinine 0.89 0.80 - 1.30 mg/dL [facility] Glucose 118 70 - 199 mg/dL [facility] Comment: Interpretive Data Fasting glucose >/= [...] 2017. Calcium 9.1 8.5 - 10.3 mg/dL [facility] Blood specimen (specimen) 07/29/2018 11:48 PM CDT 07/30/2018 12:12 AM CDT Narrative [facility] - 07/30/2018 1:01 AM CDT us Felicia Quiñones NP LAB BLOOD ORDERABLES Final Result [facility] Department [place] [address] * (ABNORMAL) CBC without differential (07/29/2018 11:48 PM CDT) WBC 7.8 3.8 - 9.9 K/cumm [facility] Hgb 12.0(L) 13.0 - 17.5 g/dL [facility] Hct 37.1(L) 38.9 - 50.3 % [facility] Plt 217 150 - 400 K/cumm [facility] MPV 9.2 9.1 - 12.[address] [facility] RBC 4.02(L) 4.30 - 5.80 M/cumm [facility] MCV 92.3 81.3 - 96.[address] [facility] MCH 29.9 27.1 - 33.[address] [facility] MCHC 32.3 32.3 - 35.7 g/dL [facility] RDW CV 13.0 11.1 - 14.9 % [facility] RDW SD 44.0 35.7 - 48.[address] [facility] NRBC abs 0.00 0.00 - 0.01 K/cumm [facility] Blood specimen (specimen) 07/29/2018 11:48 PM CDT 07/30/2018 12:12 AM CDT Narrative [facility] - 07/30/2018 12:24 AM CDT us Felicia Quiñones NP LAB BLOOD ORDERABLES Final Result Performing Organization Address [facility] de Phone Number [facility] Department [place] [address] * (ABNORMAL) Potassium, whole blood (07/29/2018 6:01 AM CDT) Potassium, bld 5.3(H) 3.3 - 4.9 mmol/L [facility] Blood specimen (specimen) 07/29/2018 6:01 AM CDT 07/29/2018 6:34 AM CDT Narrative [facility] - 07/29/2018 6:42 AM CDT Flash Magaña MD LAB BLOOD ORDERABL ES Final Result Performing Organization Address [facility] de Phone Number [facility] Department [place] [address] * (ABNORMAL) Basic metabolic panel (07/29/2018 12:16 AM CDT) [facility] Sodium 140 135 - 145 mmol/L [facility] Potassium, pl 5.4(H) 3.3 - 4.9 mmol/L [facility] Comment:Hemolyzed; (+++); po tassium value may be falsely elevated by as much as 0.6 - 1.0 mmol/L. Suggest redraw and reanalysis. Chloride 106 97 - 110 mmol/L [facility] CO2 27 22 - 32 mmol/L [facility] Anion gap 7 2 - 15 mmol/L [facility] BUN 12 8 - 25 mg/dL [facility] Creatinine 0.79(L) 0.80 - 1.30 mg/dL [facility] Glucose 100 70 - 199 mg/dL [facility] Comment: Interpretive Data Fasting glucose >/= [...] 2017. Calcium 8.7 8.5 - 10.3 mg/dL [facility] Blood specimen (specimen) 07/29/2018 12:16 AM CDT 07/29/2018 1:01 AM CDT Narrative [facility] - 07/29/2018 1:44 AM CDT us Felicia Quiñones NP LAB BLOOD ORDERABLES Final Result [facility] Department [place] [address] * (ABNORMAL) CBC without differential (07/29/2018 12:16 AM CDT) WBC 6.6 3.8 - 9.9 K/cumm [facility] Hgb 11.4(L) 13.0 - 17.5 g/dL [facility] Hct 35.3(L) 38.9 - 50.3 % [facility] Plt 217 150 - 400 K/cumm [facility] MPV 9.4 9.1 - 12.[address] [facility] RBC 3.82(L) 4.30 - 5.80 M/cumm [facility] MCV 92.4 81.3 - 96.[address] [facility] MCH 29.8 27.1 - 33.[address] [facility] MCHC 32.3 32.3 - 35.7 g/dL [facility] RDW CV 12.8 11.1 - 14.9 % [facility] RDW SD 43.4 35.7 - 48.[address] [facility] NRBC abs 0.00 0.00 - 0.01 K/cumm [facility] Blood specimen (specimen) 07/29/2018 12:16 AM CDT 07/29/2018 1:01 AM CDT Narrative [facility] - 07/29/2018 1:10 AM CDT Felicia Quiñones STOGIE PACKER LAB BLOOD ORDERABLES Final Result Performing Organization Address [facility] [place] [address] * Mycology (fungal) culture Tissue Deep (07/28/2018 5:55 PM CDT) Report Final Report: No growth of fungus [facility] Tissue (Deep) 07/28/2018 5:5 5 PM CDT 07/28/2018 5:55 PM CDT Narrative [facility] - 08/25/2018 8:25 AM CDT Deep fat posterior Specimen collected in the operating room. Testing performed by [facility] ([phone]). Flash Magaña MD LAB MICROBIOLOGY - GENERAL ORDERABLES Final Result Performing Organization Address [facility] Co de Phone Number [facility] [place] [address] * Tissue aerobic and anaerobic culture and gram stain Tissue Deep (07/28/2018 11:47 AM CDT) Direct Specimen Exam Stain: No polymorphonuclear leukocytes seen. No organisms seen. [facility] Report Final Report: No growth [facility] Tissue (Deep) 07/28/2018 11: 47 AM CDT 07/28/2018 5:52 PM CDT Narrative [facility] - 07/29/2018 7:44 AM CDT Specimen collected in the operating room. 4.deep fat posterior Testing performed by [facility] ([phone]) Specimens submitted from normally sterile body sites [...] GENERAL ORDERABLES Final Result Performing Organization Address [facility] de Phone Number KENAN FERREIRA [facility]ol[facility] [place] [address] * Tissue aerobic and anaerobic culture and gram stain Tissue Sinus (07/28/2018 11:47 AM CDT) Direct Specimen Exam Stain: No polymorphonuclear leukocytes seen. No organisms seen. [facility] Report Final Report: No growth [facility] Tissue (Sinus) 07/28/2018 11 :47 AM CDT 07/28/2018 5:48 PM CDT Narrative [facility] - 07/29/2018 7:45 AM CDT Specimen collected in the operating room. 2. SINUS TISSUE DISTAL Testing performed by [facility] ([phone]) Specimens submitted from normally sterile body sites [...] GENERAL ORDERABLES Final Result Performing Organization Address [facility] de Phone Number KENAN FERREIRA Hipolito [facility] [place] [address] * Tissue aerobic and anaerobic culture and gram stain Tissue Sinus (07/28/2018 11:47 AM CDT) Direct Specimen Exam Stain: No polymorphonuclear leukocytes seen. No organisms seen. [facility] Report Final Report: No growth [facility] Tissue (Sinus) 07/28/2018 11 :47 AM CDT 07/28/2018 5:36 PM CDT Narrative [facility] - 07/29/2018 7:45 AM CDT Specimen collected in the operating room. 3. SINUS TISSUE CENTRAL Testing performed by [facility] ([phone]) Specimens submitted from normally sterile body sites [...] LAB MICROBIOLOGY - GENERAL ORDERABLES Final Result [facility] Department [place] [address] * (ABNORMAL) Tissue aerobic and anaerobic culture and gram stain Tissue Deep (07/28/2018 11:47 AM CDT) Direct Specimen Exam Stain: No polymorphonuclear leukocytes seen. No organisms seen. [facility] Report Amended Report - Complete: Rare Propionibacterium (Cutibacterium) acnes (.) [facility] Organism PROPIONIBACTERIUM (CUTIBACTERIUM) ACNES [facility] Tissue (Deep) 07/28/2018 11: 47 AM CDT 07/28/2018 5:27 PM CDT Narrative [facility] - 08/05/2018 9:14 PM CDT Specimen collected in the operating room. DEEP FAT ANTERIOR Testing performed by [facility] ([phone]) Specimens submitted from normally sterile body sites [...] Edited Result - Final Performing Organization Address [facility] Co de Phone Number KENAN FERREIRA Hipol[facility] Department [place] [address] * Tissue aerobic and anaerobic culture and gram stain Tissue Sinus (07/28/2018 11:47 AM CDT) Direct Specimen Exam Stain: No polymorphonuclear leukocytes seen. No organisms seen. [facility] Report Final Report: No growth [facility] Tissue (Sinus) 07/28/2018 11 :47 AM CDT 07/28/2018 5:10 PM CDT Narrative [facility] - 07/29/2018 7:46 AM CDT Specimen collected in the operating room. 1. SINUS TISSUE PROXIMAL Testing performed by [facility] ([phone]) Specimens submitted from normally sterile body sites [...] GENERAL ORDERABLES Final Result Performing Organization Address [facility] Co de Phone Number KENAN FERREIRA Hipol[facility] Department [place] [address] * Mycology (fungal) culture Tissue Leg, right (07/28/2018 11:47 AM CDT) Report Final Report: No growth of fungus [facility] Tissue (Leg, right) 07/28/2018 11:47 AM CDT 07/28/2018 5:32 PM CDT Narrative [facility] - 08/25/2018 8:25 AM CDT Specimen collected in the operating room. Deep fat anterior Testing performed by [facility] ([phone]). us Flash Magaña MD LAB MICROBIOLOGY - GENERAL ORDERABLES Final Result Performing Organization Address [facility] Co de Phone Number [facility] [place] [address] * Mycobacteriology (AFB) culture Tissue Leg, right (07/28/2018 11:47 AM CDT) Report Final Report: No growth of acid-fast bacilli [facility] Tissue (Leg, right) 07/28/2018 11:47 AM CDT 07/28/2018 5:30 PM CDT Narrative [facility] - 09/28/2018 6:59 AM CDT Deep fat anterior Specimen collected in the operating room. Testing performed by [facility] ([phone]). us Flash Magaña MD LAB MICROBIOLOGY - GENERAL ORDERABLES Final Result Performing Organization Address [facility] [place] [address] * Mycobacteriology (AFB) culture Tissue Deep (07/28/2018 11:47 AM CDT) Report Final Report: No growth of acid-fast bacilli [facility] Tissue (Deep) 07/28/2018 11: 47 AM CDT 07/28/2018 5:56 PM CDT Narrative [facility] - 09/28/2018 6:59 AM CDT Deep fat posterior Specimen collected in the operating room. Testing performed by [facility] ([phone]). us Flash Magaña MD LAB MICROBIOLOGY - GENERAL ORDERABLES Final Result Performing Organization Address [facility] Co de Phone Number [facility] [address] * Mycology (fungal) culture Tissue Sinus (07/28/2018 11:47 AM CDT) Report Final Report: No growth of fungus [facility] Tissue (Sinus) 07/28/2018 11 :47 AM CDT 07/28/2018 5:38 PM CDT Narrative [facility] - 08/25/2018 8:25 AM CDT Sinus tissue central Specimen collected in the operating room. Testing performed by [facility] ([phone]). Flash Magaña MD LAB MICROBIOLOGY - GENERAL ORDERABLES Final Result Performing Organization Address [facility] Co de Phone Number [facility] [place] [address] * Mycobacteriology (AFB) culture Tissue Sinus (07/28/2018 11:47 AM CDT) Report Final Report: No growth of acid-fast bacilli [facility] Tissue (Sinus) 07/28/2018 11 :47 AM CDT 07/28/2018 5:40 PM CDT Narrative [facility] - 09/28/2018 6:59 AM CDT Sinus tissue central Specimen collected in the operating room. Testing performed by [facility] ([phone]). Flash Magaña MD LAB MICROBIOLOGY - GENERAL ORDERABLES Final Result Performing Organization Address City/[facility] Co de Phone Number [facility] [place] [address] * Mycology (fungal) culture Tissue Sinus (07/28/2018 11:47 AM CDT) Report Final Report: No growth of fungus [facility] Tissue (Sinus) 07/28/2018 11 :47 AM CDT 07/28/2018 5:47 PM CDT Narrative [facility] - 08/25/2018 8:25 AM CDT Sinus tissue distal #2 Specimen collected in the operating room. Testing performed by [facility] ([phone]). Flash Magaña MD LAB MICROBIOLOGY - GENERAL ORDERABLES Final Result Performing Organization Address [facility] Co de Phone Number [facility] [place] [address] * Mycobacteriology (AFB) culture Tissue Sinus (07/28/2018 11:47 AM CDT) Report Final Report: No growth of acid-fast bacilli [facility] Tissue (Sinus) 07/28/2018 11 :47 AM CDT 07/28/2018 5:45 PM CDT Narrative [facility] - 09/28/2018 6:59 AM CDT Sinus tissue Distal #2 Specimen collected in the operating room. Testing performed by [facility] ([phone]). us Flash Magaña MD LAB MICROBIOLOGY - GENERAL ORDERABLES Final Result Performing Organization Address [facility] de Phone Number [facility] Department [place] [address] * Mycology (fungal) culture Tissue Leg, right (07/28/2018 11:47 AM CDT) Report Final Report: No growth of fungus [facility] Tissue (Leg, right) 07/28/2018 11:47 AM CDT 07/28/2018 5:21 PM CDT Narrative [facility] - 08/25/2018 8:25 AM CDT Sinus tissue proximal Specimen collected in the operating room. Testing performed by [facility] ([phone]). Flash Magaña MD LAB MICROBIOLOGY - GENERAL ORDERABLES Final Result Performing Organization Address [facility] Co de Phone Number [facility] [place] [place] [address] * Mycobacteriology (AFB) culture Tissue Leg, right (07/28/2018 11:47 AM CDT) Report Final Report: No growth of acid-fast bacilli [facility] Tissue (Leg, right) 07/28/2018 11:47 AM CDT 07/28/2018 5:23 PM CDT Narrative [facility] - 09/28/2018 6:59 AM CDT Sinus tissue proximal Specimen collected in the operating room. Testing performed by [facility] ([phone]). Flash Magaña MD LAB MICROBIOLOGY - GENERAL ORDERABLES Final Result Performing Organization Address [facility] de Phone Number [facility] Department [place] [address] * Antibody identification (07/28/2018 5:20 AM CDT) Pathologist [facility] Antibody ID 1 Anti-K [facility] Blood specimen (specimen) 07/28/2018 5:20 AM CDT 07/28/2018 5:20 AM CDT Narrative [facility] - 07/28/2018 6:51 AM CDT Lobo King MD PhD LAB BLOOD BANK TEST ORDERABLES Final Result Performing Organization Address City/[facility]/ZIP Co de Phone Number [facility] [place] [place] [address] * (ABNORMAL) Type and screen (07/28/2018 1:29 AM CDT) Arnel indirect Positive(A) [facility] ABO Rh O Positive [facility] Blood specimen (specimen) 07/28/2018 1:29 AM CDT 07/28/2018 2:47 AM CDT Narrative [facility] - 07/28/2018 5:22 AM CDT Has the patient had Daratumumab (Darzalex) in the past 6 months?->Unknown THE COLLECTION LOCATION IS [place] [address] Lobo King MD PhD LAB BLOOD BANK TEST ORDERABLES Final Result Performing Organization Address [facility] de Phone Number [facility] [place] [address] * aPTT (07/28/2018 1:29 AM CDT) [facility] aPTT 29.9 25.0 - 37.[address] [facility] Comment: Interpretive Data Therapeutic heparin range:60.0 - 94.0 sec based on correlation with therapeutic heparin activity range of 0.3 -0.7 Units/mL. Current interpretive data was last revised on 2011. Blood specimen (specimen) 07/28/2018 1:29 AM CDT 07/28/2018 1:38 AM CDT Narrative [facility] - 07/28/2018 2:06 AM CDT THE COLLECTION LOCATION IS [place] [address] Lobo King MD PhD LAB BLOOD ORDERABLES Final Result Performing Organization Address [facility] Co de Phone Number [facility] [place] [address] * Protime-INR (07/28/2018 1:29 AM CDT) Pathologist [facility] PT 11.1 8.5 - 13.[address] [facility] INR 1.04 0.80 - 1.[address] [facility] Comment: Interpretive Data Inpatient therapeutic ranges* Atrial fibrillation ?2.0-3.0 INR Venous thrombo-embolism ?2.0-3.0 INR Bioprosthetic heart valve ?* Mechanical heart valve, bileaflet or tilting disk,aortic position ? 2.0-3.0 INR All other,or bileaflet or tilting disk, in mitral position ? 2.5-3.5 INR *See the pharmacy resource directory (PHRED) for an updated copy of the Tool Book at [email or web address] Current Interpretive Data was last revised 2011. Blood specimen (specimen) 07/28/2018 1:29 AM CDT 07/28/2018 1:38 AM CDT Narrative [facility] - 07/28/2018 2:06 AM CDT THE BJ COLLECTION LOCATION IS [place] [address] Lobo King MD PhD LAB BLOOD ORDERABLES Final Result Performing Organization Address City/State/[facility] Co de Phone Number [facility] [place] [address] * Prepare RBC: 2 Units (07/28/2018 1:13 AM CDT) Product code [id number] [facility] Unit Number [id number] 5-Y [facility] Product Blood Type OPOS [facility] Dispense Status RETURNED [facility] Product [facility] [id number] [facility] Unit Number [id number] 8-T [facility] Product Blood Type OPOS [facility] Dispense Status RETURNED [facility] Blood specimen (specimen) 07/28/2018 1:13 AM CDT 07/28/2018 1:12 AM CDT Narrative [facility] - 07/31/2018 8:22 AM CDT Specify Procedure:->I\T\D R lower extremity Are special requirements needed? (all products are leukoreduced)->No THE COLLECTION LOCATION [facility] OBS-09 [facility] # of [id number] Reasons:-Hold for procedure (specify procedure)} us Lobo King MD PhD BLOOD BANK PRODUCT O RDERABLES Final Result [facility] [place] [address] * XR Tibia Fibula Right 2 Views [...] [facility] Neutrophil pct 58.5 % [facility] Comment: Interpretive Data Percent cell count reference ranges are not reported, since discordance with absolute values may lead to misinterpretation of CBC data. Current Interpretive Data was last revised on 2017. Imm gran pct 0.5 % [facility] Comment: Interpretive Data Percent cell count reference ranges are not reported, since discordance with absolute values may lead to misinterpretation of CBC data. Current Interpretive Data was last revised on 2017. Lymphocyte pct 30.3 % [facility] Comment: Interpretive Data Percent cell count reference ranges are not reported, since discordance with absolute values may lead to misinterpretation of CBC data. Current Interpretive Data was last revised on 2017. Monocyte pct 6.7 % [facility] Comment: Interpretive Data Percent cell count reference ranges are not reported, since discordance with absolute values may lead to misinterpretation of CBC data. Current Interpretive Data was last revised on 2017. Eosinophil pct 3.4 % [facility] Comment: Interpretive Data Percent cell count reference ranges are not reported, since discordance with absolute values may lead to misinterpretation of CBC data. Current Interpretive Data was last revised on 2017. Basophil pct 0.6 % [facility] Comment: Interpretive Data Percent cell count reference ranges are not reported, since discordance with absolute values may lead to misinterpretation of CBC data. Current Interpretive Data was last revised on 2017. Blood specimen (specimen) 07/27/2018 8:57 PM CDT 07/27/2018 9:13 PM CDT Narrative [facility] - 07/27/2018 9:21 PM CDT us Adela Can STOGIE PACKER LAB BLOOD ORDERABLES Fi nal Result [facility] Department [place] [address] * (ABNORMAL) CRP (acute phase) (07/27/2018 8:57 PM CDT) CRP 10.3(H) <=10.0 mg/L [facility] Blood specimen (specimen) 07/27/2018 8:57 PM CDT 07/27/2018 9:12 PM CDT Narrative [facility] - 07/27/2018 9:39 PM CDT THE COLLECTION LOCATION IS Saman Rust MD LAB BLOOD ORDERABLES Final Result Performing Organization Address City/[facility]/ZIP Co de Phone Number [facility] [place] [address] * (ABNORMAL) Erythrocyte sedimentation rate (07/27/2018 8:57 PM CDT) Pathologist [facility] Erythrocyte sedimentation rate 16(H) 1 - 15 mm/hr [facility] Blood specimen (specimen) 07/27/2018 8:57 PM CDT 07/27/2018 9:12 PM CDT Narrative [facility] - 07/27/2018 10:10 PM CDT THE COLLECTION LOCATION IS Saman Rust MD LAB BLOOD ORDERABLES Final Result Performing Organization Address [facility] de Phone Number [facility] [place] [place] [address] * Basic metabolic panel (07/27/2018 8:57 PM CDT) Pathologist [facility] Sodium 139 135 - 145 mmol/L [facility] Potassium, pl 4.5 3.3 - 4.9 mmol/L [facility] Chloride 101 97 - 110 mmol/L [facility] CO2 26 22 - 32 mmol/L [facility] Anion gap 12 2 - 15 mmol/L [facility] BUN 14 8 - 25 mg/dL [facility] Creatinine 0.85 0.80 - 1.30 mg/dL [facility] Glucose 131 70 - 199 mg/dL [facility] Comment: Interpretive Data Fasting glucose >/= [...] 2017. Calcium 9.6 8.5 - 10.3 mg/dL [facility] Blood specimen (specimen) 07/27/2018 8:57 PM CDT 07/27/2018 9:12 PM CDT Narrative [facility] - 07/27/2018 9:40 PM CDT THE BJ COLLECTION LOCATION IS us Adela Can NP LAB BLOOD ORDERABLES Fi nal Result [facility] Department [place] [address] * (ABNORMAL) CBC with auto differential (07/27/2018 8:57 PM CDT) WBC 7.8 3.8 - 9.9 K/cumm [facility] Hgb 12.9(L) 13.0 - 17.5 g/dL [facility] Hct 39.0 38.9 - 50.3 % [facility] Plt 268 150 - 400 K/cumm [facility] MPV 9.3 9.1 - 12.[address] [facility] RBC 4.20(L) 4.30 - 5.80 M/cumm [facility] MCV 92.9 81.3 - 96.[address] [facility] MCH 30.7 27.1 - 33.[address] [facility] MCHC 33.1 32.3 - 35.7 g/dL [facility] RDW CV 13.2 11.1 - 14.9 % [facility] RDW SD 45.4 35.7 - 48.[address] [facility] NRBC abs 0.00 0.00 - 0.01 K/cumm [facility] Blood specimen (specimen) 07/27/2018 8:57 PM CDT 07/27/2018 9:13 PM CDT Narrative [facility] - 07/27/2018 9:21 PM CDT THE BJ COLLECTION LOCATION IS us Adela Can NP LAB BLOOD ORDERABLES nal Result 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)- Primary Wound infection complicating hardware, initial encounter (HCC) Infection associated with internal fixation device of right tibia, initial encounter (HCC) documented in this encounter [...] CDT 40 mg Le ft Lower Abdomen HYDROcodone-acetaminophen (NORCO) 5-325 mg per tablet 1 [...] Given 07/30/2018 4:02 AM CDT 1 tablet methocarbamol (ROBAXIN) tablet 750 mg 750 mg, [...] 9:54 AM CDT 2 tablets sodium chloride 0.9 % irrigation As needed, Starting on Fri07/28/18 at 1159, Intra-Op Given 07/28/2018 11:59 AM CDT 3,000 mL Wound sodium chloride 0.9 % irrigation As needed, Starting on Fri07/28/18 at 1200, Intra-Op Given 07/28/2018 12:00 PM CDT 1,000 mL Surgical Site sodium chloride 0.9% flush 0.5-20 mL 0.5-20 [...] Continuous, Starting on Fri07/28/18 at 1300 New Bag 07/28/2018 12:49 PM CDT 100 mL/hr 100 mL/hr tobramycin (NEBCIN) topical irrigation As needed, Starting on Fri07/28/18 at 1200, Intra-Op Given 07/28/2018 12:00 PM CDT 1,200 mg Other (Comment) vancomycin (VANCOCIN) 1,750 mg in sodium chloride 0.9% 500 mL IVPB 1,750 mg, intravenous, at 258.8 mL/hr, Administer over 120 Minutes, Every 12 hours, First dose on Fri07/28/18 at 0507, Indications: Bone/Joint InfectionIndications:Napoleon ne/Joint Infection New Bag 07/30/2018 12:13 PM CDT 1,750 mg 258.8 mL/hr New Bag 07/29/2018 11:41 PM CDT 1,750 mg 258.8 mL/hr New Bag 07/29/2018 10:51 AM CDT 1,750 mg 258.8 mL/hr vancomycin (VANCOCIN) solution As needed, Starting on Fri07/28/18 at 1200, Intra-Op Given 07/28/2018 12:00 PM CDT 1,000 mg Other (Comment) documented in this encounter Discontinued Medications Medication [...] mg (COMPLETED) 1,000 mg, oral, Once, On e 07/28/18 at 1130, For 1 dose, Pre-Op 1057 (Given - Provider: Gisela Britton RN) acetaminophen (TYLENOL) tablet 650 mg (COMPLETED) 650 mg, oral, Once, On Fri07/28/18 at 2230, For 1 dose, Pre-Op 2228 (Given - Provider: Ania Cronin) ascorbic acid (VITAMIN C) tablet/chewable tablet 4,000 mg 4,000 mg, oral, Daily, First dose on Fri07/28/18 at 1715 1727 (Given - Provider: Carmina Smart RN) 0953 (Given - Provider: Eleuterio Dill) 0813 (Given - Provider: Eleuterio Dill) carBAMazepine XR (TEGretol XR) extended release tablet 800 mg 800 mg, oral, Nightly, First dose on Fri07/28/18 at 2100 2057 (Given - Provider: Ania Cronin) 2119 (Given - Provider: Robby Ann) cefepime (MAXIPIME) 2000 mg/20 mL in sterile water (premix) 2,000 mg 2,000 mg, intravenous, at 40 mL/hr, Administer over 30 Minutes, Every 12 hours scheduled, First dose on Fri07/28/18 at 0507, Indications: Bone/Joint Infection 0548 (New Bag - Provider: Tanisha Mnocada, DANNA)0615 (Stopped - Provider: Tanisha Moncada RN)0946 (MAR Hold - Provider: Automatic Transfer Provider - Reason: Patient not available)1620 (MAR Unhold - Provider: Automatic Transfer Provider)1903 (New Bag - Provider: Carmina Smart, DANNA) 1009 (New Bag - Provider: Eleuterio Dill)2117 [...] Indications: Pain 0017 (Given - Provider: Tanisha Moncada, DANNA) ketorolac (TORADOL) injection 30 mg (COMPLETED) 30 mg, intravenous, Once, On Fri07/28/18 at 1315, For 1 dose, Phase I, For Adult IV push, administer over 15 seconds 1237 (Given - Provider: Estephania Goodman RN) methocarbamol (ROBAXIN) tablet 750 mg 750 mg, oral, 3 times daily, First dose on Fri07/28/18 at 1715 1727 (Given - Provider: Carmina Smart, DANNA)2229 (Given - Provider: Ania Cronin) 0954 (Given - Provider: Eleuterio Dill)1614 (Given - Provider: Eleuterio Dill)2118 (Given - Provider: Robby Ann) 0813 (Given - Provider: Eleuterio Dill)1600 (Due) morphine injection 2 mg (COMPLETED) 2 mg, intravenous, Administer over 4 Minutes, Once, On Fri07/28/18 at 0552, For 1 dose 0600 (Given - Provider: Tanishalisa Moncada RN) morphine injection 2 mg (COMPLETED) [...] volume based on line type and size. 173 (Given - Provider: Carmina Smart RN)2241 (Not [...] CRNA)1128 (Anesthesia Volume Adjustment - Provider: Marga oRcha CRNA)1147 (New Bag - Provider: Marga Rocha [...] Count Last Ordered Date First Ordered Date acetaminophen (TYLENOL) tablet 1,000 mg 1 0 07/28/2018 acetaminophen (TYLENOL) tablet 650 mg 1 ascorbic acid (VITAMIN C) ta blet/chewable tablet 4,000 mg 1 07/28/2018 calcium carbonate (TUMS) lee wable tablet 1,000 mg 1 07/28/2018 carBAMazepine XR (TEGretol X R) extended release tablet 800 mg 1 07/28/2018 cefepime (MAXIPIME) 2000 mg/ 20 mL in sterile water (premix) 2,000 mg 2 07/28/2018 cyclobenzaprine (FLEXERIL) tablet 10 mg 1 0 07/28/2018 diphenhydrAMINE (BENADRYL) tab/cap 25 mg 1 07/28/2018 enoxaparin (LOVENOX) syringe 40 mg 1 2018 fentaNYL (SUBLIMAZE) preserv ative free injection 50 mcg 1 07/28/2018 fosfomycin (MONUROL) packet 3 g 1 9 HYDROcodone-acetaminophen (N ORCO) 5-325 mg per tablet 1 tablet 2 07/28/2018 HYDROmorphone (DILAUDID) injection 0.2 mg 1 07/28/2018 ketorolac (TORADOL) injection 30 mg 1 07/28 Lactated Ringer's (LR) infusion 1 9 methocarbamol (ROBAXIN) tablet 750 mg 2 morphine injection 2 mg 3 07/28/2018 naloxone (NARCAN) 0.4 mg/mL injection 0.04-0.4 mg 1 07/28/2018 ondansetron (ZOFRAN) injection 4 mg 2 07/28 ondansetron ODT (ZOFRAN-ODT) disintegrating tablet 4 mg 1 07/28/[address] (PROTONIX) e xtended release tablet 40 mg 1 07/28/2018 polyethylene glycol (MIRALAX) packet 17 g 1 07/28/2018 prochlorperazine (COMPAZINE) injection 10 mg 1 07/28/2018 psyllium (aspartame) SF (MET AMUCIL SF) 3.4 gram packet 1 packet 1 07/28/2018 senna-docusate (PERICOLACE) 8.6-50 mg per tablet 2 tablet 1 07/28/2018 sodium chloride 0.9% flush 0.5-20 mL 3 07/07 sodium chloride 0.9% infusion 2 07/28/2018 sodium chloride 0.9% IVPB 0-500 mL 1 2018 vancomycin (VANCOCIN) 1,750 mg in sodium chloride 0.9% 500 mL IVPB 1 07/28/2018 Lab Orders Without Results Count [...] 07/27/2018 documented in this encounter Care Teams Help Desk Specialist Relationship Specialty Start Date End Date Jose Mo MD [address] [address] PCP - General 06/02/17 08/21/18 documented as of this encounter
--- OUTSIDE RECORDS SUMMARY | 2024-03-26 21:38 | XMS_ITS | Encounter Summary ---
Author Organization [facility] Care Team Providers Care Header Setup Operator Name Role Phone Jose Mo MD Primary Care Provider [phone] Encounter Details Date Type Department Care Team (Latest Contact Info) Description 07/27/2018 Travel Social History Tobacco Use Types Packs/Day Years Used Date Smoking Tobacco: Every Day Cigarettes Smokeless Tobacco: Never Sex and Gender Information Value Date Recorded Sex Assigned at Not on file Legal Sex Male 6:24 PM REWEAVER Gender Identity Male 04/18/2020 9:24 AM REWEAVER Sexual Orientation Straight 04/18/2020 9: 24 AM REWEAVER documented as of this encounter Plan of Treatment Not on file documented as of this encounter Visit Diagnoses Not on filedocumented in this encounter Care Teams Header Setup Operator Relationship Specialty Start Date End Date Jose Mo MD [address] [facility] [address] [place] [address] PCP - General 06/02/17 08/21/18 documented as of this encounter
--- OUTSIDE RECORDS SUMMARY | 2024-03-26 21:38 | XMS_ITS | Encounter Summary ---
Author Organization [facility] Address [address] [place] [address] Phone Care Team Providers Care Project Landscape Architect Name Role Phone Jose Mo MD Primary Care Provider [phone] Encounter Details Date Type Department Care Team (Late st Contact Info) Description 08/03/2018 Documentation [facility] [address] [facility] 6[address] [place] [address] [place] [address] Rima Josue RMA Social History Tobacco Use Types Packs/Day Years Used Date Smoking Tobacco: Every Day Cigarettes Smokeless Tobacco: Never Alcohol Use Standard Drinks/Week Comments Not Currently 0 (1 standard drink = 0.6 oz pur e alcohol) Sex and Gender Information Value Date Recorded Sex Assigned at Not on file Legal Sex Male 6:24 PM DESIGNER/WRITER Gender Identity Male 04/18/2020 9:24 AM DESIGNER/WRITER Sexual Orientation Straight 04/18/2020 9: 24 AM DESIGNER/WRITER documented as of this encounter Progress Notes * Rima Josue MA - 08/03/2018 12:46 PM CDT Patients spouse called and stated that the patient has swelling in his foot that isn't going down much with elevation. I asked her how long this has been going on and she stated since he was d/c status post his I&D with Dr. Magaañ. I proceeded to ask if they have been icing as well and she stated no. I asked the patient if they could come in the office today for a venous doppler to r/o DVT and the spouse stated she would like to try ice and elevation overnight and if it doesn't get better overnight, she will contact our office tomorrow for a venous doppler order. She stated the patient had a venous doppler done last weekend and it came back negative. I informed her that we should get another one just to be sure. I also informed her that if the patient gets shortness of breath or more severe swelling overnight to take the patient to the ED immediately. Spouse understood and will contact us tomorrow if needed. documented in this encounter Plan of Treatment Not on file documented as of this encounter Visit Diagnoses Not on filedocumented in this encounter Care Teams Project Landscape Architect Relationship Specialty Start Date End Date Jose Mo MD [address] [place] [address] PCP - General 06/02/17 08/21/18 documented as of this encounter
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
--- OUTSIDE RECORDS SUMMARY | 2024-03-26 21:38 | XMS_ITS | Encounter Summary ---
Author Organization [facility] Address [address] [place] [address] Phone Care Team Providers Care Broadcast Operations Director Name Role Phone Jose Mo MD Primary Care Provider [phone] Encounter Details Date Type Department Care Team (Late st Contact Info) Description 07/21/2018 Orders Only [facility] Orthopaedic Surgery [address] [facility] Advanced Medicine [address]th [place] [address] [place] [id number] Flash Magaña MD [address] 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 Gender Identity Male 04/18/2020 9:24 AM INSTRUMENT MAKER AND REPAIRER Sexual Orientation Straight 04/18/2020 9: 24 AM INSTRUMENT MAKER AND REPAIRER documented as of this encounter Ordered Prescriptions Prescription Sig Dispense Quantity Refills Last Filled Start Date End Date methocarbamol (ROBAXIN) 750 mg tablet Take 1 tablet (750 mg total) by mouth 3 (three) times a day 30 tablet 07/21/2018 02/23/2020 cyclobenzaprine (FLEXERIL) 10 mg tablet Take 1 tablet (10 mg total) by mouth 3 (three) times a day as needed for muscle spasms 30 tablet 07/21/2018 08/28/2018 acetaminophen-code ine (TYLENOL with CODEINE #3) 300-30 mg per tablet Take 1 tablet by mouth every 6 (six) hours as needed for pain 40 tablet 07/21/2018 07/28/2018 documented in this encounter Plan of Treatment Not on file documented as of this encounter Visit Diagnoses Diagnosis Closed displaced oblique fracture of shaft of right tibia, initial encounter- Primary documented in this encounter Discontinued Medications Medication Sig Discontinue Reason Start Date End Da te cyclobenzaprine (FLEXERIL) 10 mg tablet Take 1 tablet (10 mg total) by mouth 3 (three) times a day as needed for muscle spasms Reorder 06/18/2018 07/21/2018 methocarbamol (ROBAXIN) 750 mg tablet Take 1 tablet (750 mg total) by mouth 3 (three) times a day Reorder 06/18/2018 07/21/2018 documented as of this encounter Care Teams Broadcast Operations Director Relationship Specialty Start Date End Date Jose Mo MD [address] [address] PCP - General 06/02/17 08/21/18 documented as of this encounter
--- OUTSIDE RECORDS SUMMARY | 2024-03-26 21:38 | XMS_ITS | Encounter Summary ---
Author Organization [facility] Address [address] [place] [address] Phone Care Team Providers Care Quality Facilitator Name Role Phone Jose Mo MD Primary Care Provider [phone] Reason for Visit * Diagnostic Imaging (Routine) - Closed Specialty Diagnoses / Procedures Referred By Contac t Referred To Contact Diagnoses Pain in right leg Procedures US Vein Duplex Lower Extremity Right Limited Flash Woodward MD Phone: tel: fax: [facility] (All Locations) Referral ID Status Reason Start Date Expiration Date Visits Re quested Visits Authorized [id number] Closed 08/13/2018 02/22/2020 1 1 Encounter Details Date Type Department Care Team (Latest Contact Info) Description 08/13/2018 2:30 PM CDT Ancillary Procedure [facility] Vascular Lab at the [facility] [address] [place] [address] Advanced Medicine 8th [place] [address] [place] [address] Pain in right leg Social History Tobacco Use Types Packs/Day Years Used Date Smoking Tobacco: Every Day Cigarettes Smokeless Tobacco: Never Alcohol Use Standard Drinks/Week Comments Not Currently 0 (1 standard drink = 0.6 oz pur e alcohol) Sex and Gender Information Value Date Recorded Sex Assigned at Not on file Legal Sex Male 6:24 PM DIRECTOR OF INSTRUCTIONAL TECHNOLOGY Gender Identity Male 04/18/2020 9:24 AM DIRECTOR OF INSTRUCTIONAL TECHNOLOGY Sexual Orientation Straight 04/18/2020 9: 24 AM DIRECTOR OF INSTRUCTIONAL TECHNOLOGY documented as of this encounter Plan of Treatment Not on file documented as of this encounter Procedures Procedure Name Priority Date/Time Associated Diagnosis Comments US VEIN DUPLEX LOWER EXTREMITY RIGHT LIMITED Schedule Routine, Read Routine (OP Routine) 08/13/2018 2:45 PM CDT Pain in right leg documented in this encounter Results * US Vein Duplex Lower Extremity Right Limited (08/13/2018 2:45 PM CDT) Anatomical Region Laterality Modality Vascular Right Ultrasound 08/13/2018 2:29 PM CDT Narrative 08/18/2018 3:10 PM CDT [facility] - Department of Vascular Surgery, Vascular Laboratory [address] [place] [address] Lower Extremity Venous Ultrasound Report Patient Name: ANGUS JAIN : 1970 (48y 3m) Study Date: 08/13/2018 2:29:47 PM Gender: M Tech: MARY Location: [facility] Ref.Provider: FLASH WOODWARD Quality: Adequate Order Provider: [...] and Swelling lower extremity, right. Findings: Performing Commercial Intern: Regla Lucero RVT. Right: Venous Doppler signals in the right lower extremity are within normal limits for spontaneity and phasicity and respond normally to augmentation maneuvers. No evidence of deep vein thrombus by duplex, proximal to the calf. Comments: Contralateral common femoral vein is imaged for comparison and is patent. Unilateral (limited study) performed per Alva.Romario order. Conclusions: 1. There is no evidence [...] performed. Electronically Signed By: Maciej Reddy MD [facility] 2018-08-18 15:10:50 CDT CC: CC: Procedure Note Maciej Reddy MD - 08/18/2018 [facility] - Department of Vascular Surgery,Vascular Laboratory [address] [place] [address] Lower Extremity Venous Ultrasound Report Patient Name: ANGUS JAINPatient ID: [id number] : 1970 (48y 3m)Study Date: 08/13/2018 2:29:47 PM Gender: MAccession #: [id number] Tech: D.TRANLocation: [facility] Ref.Provider: FLASH WOODWARDQuality: Adequate Order Provider: Jonathan WOODWARD #: [id number] Procedures: Vascular Report: Venous Duplex imaging was performed in the right lower extremity. Thecommon femoral, femoral, popliteal, posterior tibial, peroneal veins were evaluated forpatency, spontaneity and phasicity with Doppler, compression and augmentationmaneuvers. Great saphenous vein proximal at the junction was evaluated with compressionmaneuvers. Indications: Pain in right leg, and Swelling lower extremity, right. Findings: Performing Commercial Intern: Regla Lucero RVT. Right: Venous Doppler signals [...] performed. Electronically Signed By: Maciej Reddy MD [facility] 2018-08-18 15:10:50 CDT CC: CC: Flash Woodward MD IM US PROCEDURES Final Result documented in this encounter Visit Diagnoses Diagnosis Pain in right leg documented in this encounter Care Teams Quality Facilitator Relationship Specialty Start Date End Date Jose Mo MD [address] [facility] [address] [place] [address] PCP - General 06/02/17 08/21/18 documented as of this encounter
--- OUTSIDE RECORDS SUMMARY | 2024-03-26 21:38 | XMS_ITS | Encounter Summary ---
Author Organization [facility] Address [address] [place] [address] Care Team Providers Care Cook House Laborer Name Role Phone Jose Mo MD Primary Care Provider [phone] Encounter Details Date Type Department Care Team (Latest Contact Info) Description 07/27/2018 9:04 PM CDT - 07/27/2018 9:49 PM CDT Hospital Encounter [facility] Radiology [address] [place] [address] Saman Rust MD [address] [facility] [address] [place] [address] Discharge Disposition: Discharge to home or self care Social History Tobacco Use Types Packs/Day Years Used Date Smoking Tobacco: Every Day Cigarettes Smokeless Tobacco: Never Sex and Gender Information Value Date Recorded Sex Assigned at Not on file Legal Sex Male 6:24 PM HEALTH INFORMATION CODER Gender Identity Male 04/18/2020 9:24 AM HEALTH INFORMATION CODER Sexual Orientation Straight 04/18/2020 9: 24 AM HEALTH INFORMATION CODER documented as of this encounter Medications at [...] mouth daily 30 packet 9 06/19/19 20 acetaminophen-co deine (TYLENOL with [...] Diagnosis Comments XR TIBIA FIBULA RIGHT2 VIEWS ED 07/27/2018 9:12 PM CDT documented in this encounter Results [...] it. Electronically signed by: Brian Rachel M.D. Saman Rust MD IMG XR PROCEDURES Fin al Result documented in this encounter Visit Diagnoses Not on filedocumented in this encounter Care Teams Cook House Laborer Relationship Specialty Start Date End Date Jose Mo MD [address] [address] PCP - General 06/02/17 08/21/18 documented as of this encounter
--- OUTSIDE RECORDS SUMMARY | 2024-03-26 21:38 | XMS_ITS | Encounter Summary ---
Author Organization [facility] Address [address] [place] [address] Phone Care Team Providers Care Germ Drier Name Role Phone Jose Mo MD Primary Care Provider [phone] Encounter Details Date Type Department Care Team (Late st Contact Info) Description 07/16/2018 Documentation [facility] Orthopaedic Surgery [address] [facility] 6th [place] [address] [place] [address] Rima Josue RMA Social History Tobacco Use Types Packs/Day Years Used Date Smoking Tobacco: Every Day Cigarettes Smokeless Tobacco: Never Sex and Gender Information Value Date Recorded Sex Assigned at Not on file Legal Sex Male 6:24 PM MARKING MACHINE OPERATOR Gender Identity Male 04/18/2020 9:24 AM MARKING MACHINE OPERATOR Sexual Orientation Straight 04/18/2020 9: 24 AM MARKING MACHINE OPERATOR documented as of this encounter Progress Notes * Rima Josue MA - 07/16/2018 10:30 AM CDT Patient's spouse called and stated that the patient's has a few areas that are dehisced along his incision site. She states it has been draining and getting worse over the past several days. She thinks it is infected and needs to be debrieded . I asked if they could come in the office today, 07/[address] Magaña needing to leave the office early today. She states she could be here in 40 minutes. I scheduled the patient for an evaluation with Dr. Magaña today. documented in this encounter Plan of Treatment Not on file documented as of this encounter Visit Diagnoses Not on filedocumented in this encounter Care Teams Germ Drier Relationship Specialty Start Date End Date Jose Mo MD [address] [address] PCP - General 06/02/17 08/21/18 documented as of this encounter
--- OUTSIDE RECORDS SUMMARY | 2024-03-26 21:38 | XMS_ITS | Encounter Summary ---
Author Organization [facility] Address [address] [place] [address] Phone Care Team Providers Care Principal Embedded Software Engineer Name Role Phone Jose Mo MD Primary Care Provider [phone] Reason for Visit * Reason Comments Fracture Encounter Details Date Type Department Care Team (Late st Contact Info) Description 07/16/2018 12:10 PM CDT Office Visit [facility] Orthopaedic Surgery [facility] Medicine 6th [place] [address] [place] [address] Flash Magaña MD [address] [facility] [address] [place] [address] Closed fracture of right tibial plateau with routine healing, subsequent encounter (Primary Dx) Social History Tobacco Use Types Packs/Day Years Used Date Smoking Tobacco: Every Day Cigarettes Smokeless Tobacco: Never Sex and Gender Information Value Date Recorded Sex Assigned at Not on file Legal Sex Male 6:24 PM REGISTERED ROUTE ASSOCIATE Gender Identity Male 04/18/2020 9:24 AM REGISTERED ROUTE ASSOCIATE Sexual Orientation Straight 04/18/2020 9: 24 AM REGISTERED ROUTE ASSOCIATE documented as of this encounter Progress Notes * Flash Magaña MD - 07/16/2018 12:10 PM CDT Status post intramedullary nail plate fixation right proximal 1/3 tibia and fibula fracture performed 12 June 2018. Subjective: Patient returns today earlier with concerns of wound healing. He has a history of stasis changes and swelling in his right lower extremity prior to his injury. He has had multiple episodes reports ofwound ulcerations that have required specialized wound care. He reports that 1 of these is startingto occur. This is in the area of the distal medial plate incision in the proximal aspect of period his is in trying to clean this with gauze and he is concerned that it is getting worse. No subjective fevers chills. Minimal drainage. Objective: Patient is healthy-appearing and well-groomed, in no apparent distress. Patient is oriented to time, place, and person. Incision all incisions with the exception the medial distal incision are healing well. The medial distal incision at the proximal extent has a 3 x 3 mm area of wound dehiscence. There is granulation tissue with some fibrinous overlying material that does not probe deep. Some surrounding hyperemia but no kimberly cellulitis Range of motion: diminished range with pain. Leg warm and well-perfused, capillary refill <2 seconds. Neurovascular exam at baseline Imaging: No radiographs obtained today Assessment: Mr. Jain is a 48 y.o. male who sustained a right side proximal tibia and fibula fracture status post intramedullary nail on plate fixation 5 weeks out. I advised him that I would normally treat this with a wet to dry dressing. He reports that this is generally not been effective form treated forhim. After talking with him it seems that this is the wound is been treated by wound care specialists in the past. He reports that some in office debridement 3rd generally performed. As such I would recommend a follow-up with the legal recovery specialist. He is totally fine with this as it might. If he has any problems getting in to see this provider that he is coming back. I will see him back for his next scheduled appointment as is. documented in this encounter Plan of Treatment Not on file documented as of this encounter Visit Diagnoses Diagnosis Closed fracture of right tibial plateau with routine healing, subsequent encounter- Primary documented in this encounter Care Teams Principal Embedded Software Engineer Relationship Specialty Start Date End Date Jose Mo MD [address] [facility] [address] [place] [address] PCP - General 06/02/17 08/21/18 documented as of this encounter
--- OUTSIDE RECORDS SUMMARY | 2024-03-26 21:39 | XMS_ITS | Encounter Summary ---
Author Organization [facility] Address [address] [facility] [address] [place] [address] Phone Care Team Providers Care Route Driver Salesperson Name Role Phone Jose Mo MD Primary Care Provider [phone] Encounter Details Date Type Department Care Team (Late st Contact Info) Description 09/26/[address] [facility] Infectious Diseases [address] [place] [address] [address] [place] [address] Quentin Montoya MD [address] [facility] [address] [place] [address] Urinary tract infection without hematuria, site unspecified (Primary Dx) Social History Tobacco Use Types Packs/Day Years Used Date Smoking Tobacco: Every Day Smokeless Tobacco: Never Sex and Gender Information Value Date Recorded Sex Assigned at Not on file Legal Sex Male 6:24 PM HULL BUILDER Gender Identity Male 04/18/2020 9:24 AM HULL BUILDER Sexual Orientation Straight 04/18/2020 9: 24 AM HULL BUILDER documented as of this encounter Ordered Prescriptions Prescription Sig Dispense Quantity Refills Last Filled Start Date End Date fosfomycin (MONUROL) 3 gram packetIndications: Urinary Tract/Genitourinar y Infection Take 3 g by mouth every 30 (thirty) days. 1 packet 5 09/26/2017 02/11/2018 ciprofloxacin (CIPRO) 500 mg tabletIndications: Urinary Tract/Genitourinar y Infection Take 1 tablet (500 mg total) by mouth 2 (two) times a day for 10 days. 20 tablet 09/26/2017 10/06/2017 documented in this encounter Plan of Treatment Not on file documented as of this encounter Visit Diagnoses Diagnosis Urinary tract infection without hematuria, site unspecified- Primary documented in this encounter Care Teams Route Driver Salesperson Relationship Specialty Start Date End Date Jose Mo MD [address] [place] [address] PCP - General 06/02/17 08/21/18 documented as of this encounter
--- OUTSIDE RECORDS SUMMARY | 2024-03-26 21:39 | XMS_ITS | Encounter Summary ---
Author Organization [facility] Facility Care Team Providers Care Roll Edge Machine Operator Name Role Phone Jose Mo MD Primary Care Provider [phone] Encounter Details Date Type Department Care Team (Latest Contact Info) Description 06/11/2018 Travel Social History Tobacco Use Types Packs/Day Years Used Date Smoking Tobacco: Every Day Cigarettes Smokeless Tobacco: Never Sex and Gender Information Value Date Recorded Sex Assigned at Not on file Legal Sex Male 6:24 PM RUSSIAN TEACHER Gender Identity Male 04/18/2020 9:24 AM RUSSIAN TEACHER Sexual Orientation Straight 04/18/2020 9: 24 AM RUSSIAN TEACHER documented as of this encounter Plan of Treatment Not on file documented as of this encounter Visit Diagnoses Not on filedocumented in this encounter Care Teams Roll Edge Machine Operator Relationship Specialty Start Date End Date Jose Mo MD [address] [facility] [address] [place] [address] PCP - General 06/02/17 08/21/18 documented as of this encounter
--- OUTSIDE RECORDS SUMMARY | 2024-03-26 21:39 | XMS_ITS | Encounter Summary ---
Author Organization [facility] Address [address] [place] [address] Care Team Providers Care Floor Sweeper Name Role Phone Jose Mo MD Primary Care Provider [phone] Encounter Details Date Type Department Care Team (Latest Contact Info) Description 06/11/2018 10:22 PM SUMMER SCHOOL COORDINATOR - 06/11/2018 11:59 PM SUMMER SCHOOL COORDINATOR Hospital Encounter [facility] [address] [place] [address] Discharge Disposition: Discharge to home or self care Social History Tobacco Use Types Packs/Day Years Used Date Smoking Tobacco: Every Day Cigarettes Smokeless Tobacco: Never Sex and Gender Information Value Date Recorded Sex Assigned at Not on file Legal Sex Male 6:24 PM SUMMER SCHOOL COORDINATOR Gender Identity Male 04/18/2020 9:24 AM SUMMER SCHOOL COORDINATOR Sexual Orientation Straight 04/18/2020 9: 24 AM SUMMER SCHOOL COORDINATOR documented as of this encounter Medications [...] daily 30 packet 11 9 06/19/19 20 ascorbic acid (vitamin C) 1,000 mg tablet 1 tab BID 7 06/19/19 aspirin 325 mg enteric coated tablet Take 1 tablet (325 mg total) by mouth 2 (two) times a day for 14 days For blood clot prevention. Take with food. 28 tablet 9 07/31/19 19 carBAMazepine XR (TEGretol XR) 200 mg 12 hr tablet TK 1 T PO FID UTD 1 8 06/19/19 19 carBAMazepine XR (TEGretol XR) 400 mg [...] every 14 (fourteen) days. 2 packet 3 8 06/19/19 19 fosfomycin (MONUROL) 3 gram packetIndication s:Urinary [...] Name Priority Date/Time Associated Diagnosis Comments CT BODY OUTSIDE CONSULT ED Urgent/IP Urgent 06/11/2018 10:23 PM SUMMER SCHOOL COORDINATOR documented in this encounter Results * CT Body Outside Consult (06/11/2018 10:23 PM SUMMER SCHOOL COORDINATOR) Anatomical Region Laterality Modality Body N/A Computed Tomogra phy 06/12/2018 11:5 3 AM SUMMER SCHOOL COORDINATOR Impressions 06/12/2018 12:32 PM SUMMER SCHOOL COORDINATOR 1. ??Partly reduced comminuted extra-articular right proximal [...] images may or may not represent the [place] source data set and thus may contain changes that may lower the accuracy of this second-opinion interpretation. Dictated by: Mayito Florence M.D. Electronically signed by: Lobo Morales M.D. Narrative 06/12/2018 12:32 PM SUMMER SCHOOL COORDINATOR EXAMINATION: RADIOLOGY CONSULTATION ON OUTSIDE IMAGING STUDY STUDY INITIALLY PERFORMED: 06/11/2018 at [facility]. TYPE OF STUDY: Multiple CT [...] IMAGING STUDY STUDY INITIALLY PERFORMED: 06/11/2018 at [facility]. TYPE OF STUDY: Multiple CT [...] images may or may not represent the [place] source data set and thus may contain changes that may lower the accuracy of this second-opinion interpretation. Dictated by: Mayito Florence M.D. Electronically signed by: Lobo Morales M.D. Rosendo Bush Jr., MD IMG CT PROCEDURES F inal Result documented in this encounter Visit Diagnoses Not on filedocumented in this encounter Care Teams Floor Sweeper Relationship Specialty Start Date End Date Jose Mo MD [address] [address] PCP - General 06/02/17 08/21/18 documented as of this encounter
--- OUTSIDE RECORDS SUMMARY | 2024-03-26 21:39 | XMS_ITS | Encounter Summary ---
Author Organization [facility] Address [address] [facility] [address] [place] [address] Phone Care Team Providers Care Global Climate Change Researcher Name Role Phone Jose Mo MD Primary Care Provider [phone] Reason for Visit * Reason Comments Follow-up Encounter Details Date Type Department Care Team (Late st Contact Info) Description 04/21/2018 11:15 AM SLEEVER Office Visit [facility] Infectious Diseases [address] [place] [phone] Quentin Montoya MD [address] [place] [address] Recurrent UTI (Primary Dx) Social History Tobacco Use Types Packs/Day Years Used Date Smoking Tobacco: Every Day Cigarettes Smokeless Tobacco: Never Sex and Gender Information Value Date Recorded Sex Assigned at Not on file Legal Sex Male 6:24 PM SLEEVER Gender Identity Male 04/18/2020 9:24 AM SLEEVER Sexual Orientation Straight 04/18/2020 9: 24 AM SLEEVER documented as of this encounter Last Filed Vital Signs Vital Sign Reading Time Taken Comments Blood Pressure 139/81 04/21/2018 11:34 AM SLEEVER Pulse 86 04/21/2018 11:34 AM SLEEVER Temperature 36.4 ??C (97.6 ??F) 04/21/2018 1 1:34 AM SLEEVER Respiratory Rate - - Oxygen Saturation - - Inhaled Oxygen Concentration - - Weight 108.5 kg (239 lb 4.8 oz) 019 11:34 AM SLEEVER Height 172.7 cm (5' 8 ) 04/21/2018 11:3 4 AM SLEEVER Body Mass Index 36.39 04/21/2018 11:34 AM SLEEVER documented in this encounter Progress Notes * Quentin Montoya MD - 04/21/2018 11:15 AM CST Infectious Disease Follow Up HPI: 47 y.o. male with chief complaint of recurrent [...] reported a cystoscopy was normal in ~2014. At his last visit, had a UA that grew a drug-resistant K. Pneumoniae. He responded well to ciprofloxacin and then has been taking fosfomycin suppression q2 weeks, but has to pay $55 each time he getsa packet. He denies fevers, chills, night sweats, nausea, vomiting, diarrhea, rash. He states no dysuria at this time, but feels that he is 'iffy' and has urine that smells bad as of last 48 hours. They request a UA today. PMH: see hpi No past medical history on file. No past surgical history on file. HOME MEDICATIONS : ascorbic acid (vitamin C) 1,000 mg tablet carBAMazepine XR (TEGretol XR) 200 mg 12 hr tablet fosfomycin (MONUROL) 3 gram packet Current Outpatient Prescriptions Ordered in [facility] Medication Sig Dispense Refill ??? ascorbic acid (vitamin C) 1,000 mg tablet 1 tab BID ??? carBAMazepine XR (TEGretol XR) 200 mg 12 hr tablet TK 1 T PO FID UTD 1 ??? fosfomycin (MONUROL) 3 gram packet Take 3 g by mouth every 14 (fourteen) days. 2 packet 3 No current [facility]-ordered facility-administered medications on file. Active LDAs: Allergies Allergen Reactions ??? Sulfa (Sulfonamide Antibiotics) Unknown Social History Substance Use Topics ??? Smoking status: Current Every Day Smoker Packs/day: 0.50 Types: Cigarettes ??? Smokeless tobacco: Never Used ??? Alcohol use Not on file Family history reviewed and non-contributory No family history on file. Review of Systems: Review of systems per HPI and otherwise all other systems are negative Objective Most Recent : Vitals BP 139/81 (BP Location: Right arm, Patient Position: Sitting) Pulse 86 Temp 36.4 ??C (97.6 ??F) Ht 172.7 cm (5' 8 ) Wt 108.5 kg (239 lb 4.8 oz) BMI 36.39 kg/m?? Physical Exam: General: no acute distress Head, eyes, ears, nose, throat: moist mucous membranes Neck: supple Respiratory: clear to auscultation bilaterally Cardiovascular: regular rate and rhythm, no murmurs, rubs, or gallops, S1/S2 Abdomen: soft, non-tender, non-distended, normal bowel sounds, no hepatosplenomegaly Musculoskeletal: moves all extremities Neurologic: alert and interactive Skin: no rash Assessment/Plan: 47 y.o. male with chief complaint of recurrent UTIs who presents for follow up. #Recurrent UTIs: Normal cystoscopy in the past, normal renal ultrasound -checking UA reflex today. As he seems asymptomatic based on my history, would not treat anything that grows unless he starts to have symptoms -will look into whether he would qualify for MDR UTI FMT study -continue biweekly fosfomycin. Given cost, could use intermittent cipro or daily cipro in future. Patient does not want this at this time given that this is the only oral antibiotic remaining that can treat his most recent bacteria RTC 2 months VER documented in this encounter Plan of Treatment Not on file documented as of this encounter Procedures Procedure Name Priority Date/Time Associated Diagnosis Comments URINALYSIS AND REFLEX TO MICROSCOPIC AND CULTURE Routine 04/21/2018 12:04 PM SLEEVER Recurrent UTI URINALYSIS, MICROSCOPIC ONLY Routine 04/21/2018 12:04 PM SLEEVER Recurrent UTI documented in this encounter Results * (ABNORMAL) Urinalysis, microscopic only (04/21/2018 12:04 PM SLEEVER) WBC, ur 0-5 0 - 5 /HPF [facility] RBC, ur 0-2 0 - 2 /HPF [facility] Bacteria, ur Trace(A) [facility] Mucous, ur Present(A) [facility] Urine, clean voided 04/21/2018 12:04 PM SLEEVER 04/21/2018 1:36 PM SLEEVER Narrative [facility] - 04/21/2018 1:59 PM SLEEVER Quentin Montoya MD LAB URINE ORDERABLES Fi nal Result [facility] Department [place] [address] * (ABNORMAL) Urinalysis reflex to microscopic and culture Urine, clean voided (04/21/2018 12:04 PM SLEEVER) Color, ur [place] Yellow [facility] Clarity, ur Cloudy(A) Clear [facility] Specific gravity, ur 1.008(L) 1.010 - 1.025 [facility] pH, urine 6.0 [facility] Protein, ur ql Negative Negative [facility] Glucose, ur ql Negative Negative [facility] Ketones, ur Negative Negative [facility] Bilirubin, ur Negative Negative [facility] Blood, ur Negative Negative [facility] Comment:Ascorbic acid identi fied in urine; possible false negative blood result. A microscopic exam will be added to identify RBCs. Urobilinogen, ur <2.0 <2.0 mg/dL [facility] Nitrite, ur Negative Negative [facility] Leukocyte esterase, ur Negative Negative [facility] Urine, clean voided 04/21/2018 12:04 PM SLEEVER 04/21/2018 1:36 PM SLEEVER Narrative KENAN FERREIRA - 04/21/2018 1:58 PM SLEEVER ?? Urine pH is affected by diet, medications, systemic acid-base disturbances, and renal tubular function. ??pH may affect urinary stone formation. ??For example, urine pH below 6.0 may help reduce the tendency for calcium phosphate stones and pH greater than 6.0 may reduce the tendency for uric acid stone formation. Source: [employer]. Last revised 04-17-2017 us Quentin Montoya MD LAB MICROBIOLOGY - [facility] ORDERABLES Final Result [facility] Department [place] [address] documented in this encounter Visit Diagnoses Diagnosis Recurrent UTI- Primary Urinary tract infection, site not specified documented in this encounter Care Teams Global Climate Change Researcher Relationship Specialty Start Date End Date Jose Mo MD [address] [facility] [address] [place] [address] PCP - General 06/02/17 08/21/18 documented as of this encounter
--- OUTSIDE RECORDS SUMMARY | 2024-03-26 21:39 | XMS_ITS | Encounter Summary ---
Author Organization [facility] Address [address] [place] [address] Phone Care Team Providers Care Broom Bundler Name Role Phone Jose Mo MD Primary Care Provider [phone] Encounter Details Date Type Department Care Team (Late st Contact Info) Description 02/10/2018 Telephone [facility] Infectious Diseases [address] [place] [address] [address] [place] [address] Jacque Mendieta Social History Tobacco Use Types Packs/Day Years Used Date Smoking Tobacco: Every Day Cigarettes Smokeless Tobacco: Never Sex and Gender Information Value Date Recorded Sex Assigned at Not on file Legal Sex Male 6:24 PM FILLING MACHINE SET UP MECHANIC Gender Identity Male 04/18/2020 9:24 AM FILLING MACHINE SET UP MECHANIC Sexual Orientation Straight 04/18/2020 9: 24 AM FILLING MACHINE SET UP MECHANIC documented as of this encounter Miscellaneous Notes * Telephone Encounter - Nat Beck - 02/13/2018 11:20 AM CST Spoke with Melissa, discussed medication, will check on copay card. Also discussed UA results, cipro sent to pharmacy still waiting on susceptibilities. ING MACHINE SET UP MECHANIC * Telephone Encounter - Jacque Mendieta - 02/10/2018 2:29 PM CST [phone], patient is wanting to know if we have any samples or any type of copupons, anything forf the med, menurol. It is still so expensive, even with the ins. ING MACHINE SET UP MECHANIC documented in this encounter Plan of Treatment Not on file documented as of this encounter Visit Diagnoses Not on filedocumented in this encounter Care Teams Broom Bundler Relationship Specialty Start Date End Date Jose Mo MD [address] [address] PCP - General 06/02/17 08/21/18 documented as of this encounter
--- OUTSIDE RECORDS SUMMARY | 2024-03-26 21:39 | XMS_ITS | Encounter Summary ---
Author Organization [facility] Healthcare Address [address] [place] [address] Care Team Providers Care Chlorination Operator Name Role Phone Jose Mo MD Primary Care Provider [phone] Encounter Details Date Type Department Care Team (Latest Contact Info) Description 06/11/2018 10:20 PM MANAGER PAYER Hospital Encounter [facility] [address] [place] [id number] Discharge Disposition: Discharge to home or self care Social History Tobacco Use Types Packs/Day Years Used Date Smoking Tobacco: Every Day Cigarettes Smokeless Tobacco: Never Sex and Gender Information Value Date Recorded Sex Assigned at Not on file Legal Sex Male 6:24 PM MANAGER PAYER Gender Identity Male 04/18/2020 9:24 AM MANAGER PAYER Sexual Orientation Straight 04/18/2020 9: 24 AM MANAGER PAYER documented as of this encounter Medications at [...] Take with food. 28 tablet 9 07/31/19 carBAMazepine XR (TEGretol XR) 200 mg 12 [...] mouth every 2 (two) weeks 9 07/22/19 gabapentin (NEURONTIN) 300 mg capsule Take 1 [...] Comments XR TRANSFER OF OUTSIDE FILMS Routine 06/11/2018 10:20 PM MANAGER PAYER documented in this encounter Results * XR Outside Reference (06/11/2018 10:20 PM MANAGER PAYER) Impressions [facility] - 06/11/2018 10:20 PM MANAGER PAYER These images are for Reference purposes only and have not been reviewed by [facility] Radiology. ??There will be no report generated by a [facility] Radiologist. Narrative [facility] - 06/11/2018 10:20 PM MANAGER PAYER EXAMINATION: ??Images For Reference Purposes Only us Rosendo Bush Jr., MD IMG XR PROCEDURES F inal Result [facility] documented in this encounter Visit Diagnoses Not on filedocumented in this encounter Care Teams Chlorination Operator Relationship Specialty Start Date End Date Jose Mo MD [address] [facility] [address] [place] [address] PCP - General 06/02/17 08/21/18 documented as of this encounter
--- OUTSIDE RECORDS SUMMARY | 2024-03-26 21:39 | XMS_ITS | Encounter Summary ---
Author Organization [facility] Address [address] [facility] [address] [place] [address] Phone Care Team Providers Care Neuropsychology Medical Consultant Name Role Phone Jose Mo MD Primary Care Provider [phone] Encounter Details Date Type Department Care Team (Late st Contact Info) Description 09/26/2017 Telephone [facility] Infectious Diseases [address] [place] [address] Nat Beck Social History Tobacco Use Types Packs/Day Years Used Date Smoking Tobacco: Every Day Smokeless Tobacco: Never Sex and Gender Information Value Date Recorded Sex Assigned at Not on file Legal Sex Male 6:24 PM HEALTH PROFESSIONAL Gender Identity Male 04/18/2020 9:24 AM HEALTH PROFESSIONAL Sexual Orientation Straight 04/18/2020 9: 24 AM HEALTH PROFESSIONAL documented as of this encounter Miscellaneous Notes * Telephone Encounter - Nat Beck - 09/26/2017 8:44 AM CDT Called alicia abstarr sent to pharmacy, request call back to go over results. ----- Message from Quentin Montoya MD sent at 09/26/2017 7:37 AM CDT ----- Cipro 500 mg po bid x10 days for UTI Then, fosfomycin 3 g po q monthly, first dose 1 month after completing cipro documented in this encounter Plan of Treatment Not on file documented as of this encounter Visit Diagnoses Not on filedocumented in this encounter Care Teams Neuropsychology Medical Consultant Relationship Specialty Start Date End Date Jose Mo MD [address] [address] PCP - General 06/02/17 08/21/18 documented as of this encounter
--- OUTSIDE RECORDS SUMMARY | 2024-03-26 21:39 | XMS_ITS | Encounter Summary ---
Author Organization [facility] Address [address] [facility] [address] [place] [address] Phone Care Team Providers Care Graphic Manager Name Role Phone Jose Mo MD Primary Care Provider [phone] Reason for Visit * Reason Comments Follow-up Encounter Details Date Type Department Care Team (Late st Contact Info) Description 02/10/2018 11:15 AM HOME PERFORMANCE CONSULTANT Office Visit [facility] Infectious Diseases [address] [place] [address] Quentin Montoya MD [address] [place] [address] Recurrent UTI (Primary Dx) Social History Tobacco Use Types Packs/Day Years Used Date Smoking Tobacco: Every Day Cigarettes Smokeless Tobacco: Never Sex and Gender Information Value Date Recorded Sex Assigned at Not on file Legal Sex Male 6:24 PM HOME PERFORMANCE CONSULTANT Gender Identity Male 04/18/2020 9:24 AM HOME PERFORMANCE CONSULTANT Sexual Orientation Straight 04/18/2020 9: 24 AM HOME PERFORMANCE CONSULTANT documented as of this encounter Last Filed Vital Signs Vital Sign Reading Time Taken Comments Blood Pressure 148/79 02/10/2018 11:31 AM HOME PERFORMANCE CONSULTANT Pulse 72 02/10/2018 11:31 AM HOME PERFORMANCE CONSULTANT Temperature 36.4 ??C (97.6 ??F) 02/10/2018 1 1:31 AM HOME PERFORMANCE CONSULTANT Respiratory Rate - - Oxygen Saturation - - Inhaled Oxygen Concentration - - Weight 105.6 kg (232 lb 12.8 oz) 2017 11:31 AM HOME PERFORMANCE CONSULTANT Height 172.7 cm (5' 8 ) 02/10/2018 11:3 1 AM HOME PERFORMANCE CONSULTANT Body Mass Index 35.4 02/10/2018 11:31 AM HOME PERFORMANCE CONSULTANT documented in this encounter Progress Notes * Quentin Montoya MD - 02/10/2018 11:15 AM CST Infectious Disease Follow Up [...] last visit, had a UA that grew nothing, but ended up going to an outside ED with fever and took a course of doxycycline, which improved his symptoms. He has not taken any fosfomycin since thattime. His reports that his urine is beginning to smell bad again, though patient has no symptoms. He denies fevers, chills, night sweats, nausea, vomiting, diarrhea, rash, dysuria, urgency, frequ ency. PMH: see hpi No past medical history on file. No past surgical history on file. HOME MEDICATIONS : ascorbic acid (vitamin C) 1,000 mg tablet carBAMazepine XR (TEGretol XR) 200 mg 12 hr tablet fosfomycin (MONUROL) 3 gram packet Current Outpatient Prescriptions Ordered in [facility] Medication Sig Dispense Refill ??? ascorbic acid (vitamin C) 1,000 mg tablet 1 tab BID ??? carBAMazepine XR (TEGretol XR) 200 mg 12 hr tablet TK 1 T PO FID UTD 1 ??? fosfomycin (MONUROL) 3 gram packet Take 3 g by mouth every 30 (thirty) days. 1 packet 5 No current [facility]-ordered facility-administered medications on file. [...] negative Objective Most Recent : Vitals BP 148/79 (BP Location: Right arm, Patient Position: Sitting) Pulse 72 Temp 36.4 ??C (97.6 ??F) Ht 172.7 cm (5' 8 ) Wt 105.6 kg (232 lb 12.8 oz) BMI 35.40 kg/m?? Physical Exam: General: no acute distress [...] cystoscopy in the past, normal renal ultrasound -follow up UA reflex results and treat based on this -change fosfomycin to q2 weeks and see if this prevents recurrences PERFORMANCE CONSULTANT documented in this encounter Plan of Treatment Not on file documented as of this encounter Procedures Procedure Name Priority Date/Time Associated Diagnosis Comments URINALYSIS AND REFLEX TO MICROSCOPIC AND CULTURE Routine 02/10/2018 2:08 PM HOME PERFORMANCE CONSULTANT Recurrent UTI URINALYSIS, MICROSCOPIC ONLY Routine 02/10/2018 2:08 PM HOME PERFORMANCE CONSULTANT Recurrent UTI documented in this encounter Results * (ABNORMAL) Urinalysis, microscopic only (02/10/2018 2:08 PM HOME PERFORMANCE CONSULTANT) WBC, ur 11-20(A) 0 - 5 /HPF [facility] RBC, ur 0-5 0 - 5 /HPF [facility] Epithelial cells, squamous, ur 1-5 0 - 5 /HPF [facility] Bacteria, ur 1+(A) [facility] Mucous, ur Present(A) [facility] Urine, clean voided 02/10/2018 2:08 PM HOME PERFORMANCE CONSULTANT 02/10/2018 6:22 PM HOME PERFORMANCE CONSULTANT Narrative [facility] - 02/10/2018 6:41 PM HOME PERFORMANCE CONSULTANT Quentin Montoya MD LAB URINE ORDERABLES Fi nal Result [facility] [place] [address] * (ABNORMAL) Urinalysis reflex to microscopic and culture Urine, clean voided (02/10/2018 2:08 PM HOME PERFORMANCE CONSULTANT) Pathologist [facility] Color, ur Yellow Yellow [facility] Clarity, ur Cloudy(A) Clear [facility] Specific gravity, ur 1.008(L) 1.010 - 1.025 [facility] pH, urine 6.0 [facility] Protein, ur ql Negative Negative [facility] Glucose, ur ql Negative Negative [facility] Ketones, ur Negative Negative [facility] Bilirubin, ur Negative Negative [facility] Blood, ur Negative Negative [facility] Comment:Ascorbic acid identi fied in urine; possible false negative blood result. A microscopic exam will be added to identify RBCs. Urobilinogen, ur <2.0 <2.0 mg/dL [facility] Nitrite, ur Negative Negative [facility] Leukocyte esterase, ur 3+(A) Negative [facility] Urine, clean voided 02/10/2018 2:08 PM HOME PERFORMANCE CONSULTANT 02/10/2018 6:22 PM HOME PERFORMANCE CONSULTANT Narrative KENA[facility] NAYLOR - 02/10/2018 6:33 PM HOME PERFORMANCE CONSULTANT ?? Urine pH is affected by diet, medications, systemic acid-base disturbances, and renal tubular function. ??pH may affect urinary stone formation. ??For example, urine pH below 6.0 may help reduce the tendency for calcium phosphate stones and pH greater than 6.0 may reduce the tendency for uric acid stone formation. Source: [employer]. Last revised 04-17-2017 us Quentin Montoya MD LAB MICROBIOLOGY - [facility] ORDERABLES Final Result [facility] [place] [address] documented in this encounter Visit Diagnoses Diagnosis Recurrent UTI- Primary Urinary tract infection, site not specified documented in this encounter Care Teams Graphic Manager Relationship Specialty Start Date End Date Jose Mo MD [address] [place] [address] [address] [place] [address] PCP - General 06/02/17 08/21/18 documented as of this encounter
--- OUTSIDE RECORDS SUMMARY | 2024-03-26 21:39 | XMS_ITS | Encounter Summary ---
Author Organization [facility] Healthcare Address [address] [place] [address] Care Team Providers Care Director Of Hemophilia Name Role Phone Jose Mo MD Primary Care Provider [phone] Encounter Details Date Type Department Care Team (Latest Contact Info) Description 06/11/2018 10:21 PM FLY RAIL OPERATOR Hospital Encounter [facility] [address] [place] [phone] Discharge Disposition: Discharge to home or self care Social History Tobacco Use Types Packs/Day Years Used Date Smoking Tobacco: Every Day Cigarettes Smokeless Tobacco: Never Sex and Gender Information Value Date Recorded Sex Assigned at Not on file Legal Sex Male 6:24 PM FLY RAIL OPERATOR Gender Identity Male 04/18/2020 9:24 AM FLY RAIL OPERATOR Sexual Orientation Straight 04/18/2020 9: 24 AM FLY RAIL OPERATOR documented as of this encounter Medications [...] OF OUTSIDE FILMS Routine 06/11/2018 10:21 PM FLY RAIL OPERATOR documented in this encounter Results * XR Outside Reference (06/11/2018 10:21 PM FLY RAIL OPERATOR) Impressions [facility] - 06/11/2018 10:21 PM FLY RAIL OPERATOR These images are for Reference purposes only and have not been reviewed by [facility] Radiology. ??There will be no report generated by a [facility] Radiologist. Narrative [facility] - 06/11/2018 10:21 PM FLY RAIL OPERATOR EXAMINATION: ??Images For Reference Purposes Only us Rosendo Bush Jr., MD IMG XR PROCEDURES F inal Result [facility] documented in this encounter Visit Diagnoses Not on filedocumented in this encounter Care Teams Director Of Hemophilia Relationship Specialty Start Date End Date Jose Mo MD [address] [facility] [address] [place] [address] PCP - General 06/02/17 08/21/18 documented as of this encounter
--- OUTSIDE RECORDS SUMMARY | 2024-03-26 21:39 | XMS_ITS | Encounter Summary ---
Author Organization [facility] Address [address] [facility] [address] [place] [address] Phone Care Team Providers Care Digital Account Manager Name Role Phone Jose Mo MD Primary Care Provider [phone] Encounter Details Date Type Department Care Team (Late st Contact Info) Description 02/10/2018 Orders Only [facility] Infectious Diseases [address] [place] [address] [address] [place] [address] Quentin Montoya MD [address] [facility] [address] [place] [address] Recurrent UTI (Primary Dx) Social History Tobacco Use Types Packs/Day Years Used Date Smoking Tobacco: Every Day Cigarettes Smokeless Tobacco: Never Sex and Gender Information Value Date Recorded Sex Assigned at Not on file Legal Sex Male 6:24 PM RECREATION SUPERINTENDENT Gender Identity Male 04/18/2020 9:24 AM RECREATION SUPERINTENDENT Sexual Orientation Straight 04/18/2020 9: 24 AM RECREATION SUPERINTENDENT documented as of this encounter Plan of Treatment Scheduled Orders Name Type Priority Associated Diagnoses Orde r Schedule Urinalysis reflex to microscopic and culture Urine, clean voided Microbiology Routine Recurrent UTI 3 Occurrences starting 02/10/2018 until 02/10/2019 documented as of this encounter Procedures Procedure Name Priority Date/Time Associated Diagnosis Comments URINE CULTURE Routine Gen Lab 02/10/2018 2:08 PM RECREATION SUPERINTENDENT documented in this encounter Results * (ABNORMAL) Urine culture (02/10/2018 2:08 PM RECREATION SUPERINTENDENT) Report Final Report: Greater than or equal to 100,000 colonies/mL of Klebsiella pneumoniae (.) [facility] Organism KLEBSIELLA PNEUMONIAE [facility] Urine, clean voided 02/10/2018 2:08 PM RECREATION SUPERINTENDENT 02/10/2018 8:54 PM RECREATION SUPERINTENDENT Narrative [facility] - 02/11/2018 2:32 PM RECREATION SUPERINTENDENT Urine culture reflexed based upon urinalysis results. Testing performed by [facility] Microbiology Laboratory ([phone]) Organism Antibiotic Method Susceptibility Klebsiella pneumoniae Ampicillin INTERPRETATION Resistant Klebsiella pneumoniae Cefazolin INTERPRETATION Resistant Klebsiella pneumoniae Nitrofurantoin INTERPRETATION Resistant Klebsiella pneumoniae Gentamicin INTERPRETATION Susceptible Klebsiella pneumoniae Trimethoprim with Sulfamethoxazole INTERPRETATION Resistant Klebsiella pneumoniae Meropenem INTERPRETATION Susceptible Klebsiella pneumoniae Cefepime INTERPRETATION Susceptible Klebsiella pneumoniae Ciprofloxacin INTERPRETATION Susceptible Klebsiella pneumoniae Ceftazidime INTERPRETATION Susceptible Klebsiella pneumoniae Ceftriaxone INTERPRETATION Susceptible Klebsiella pneumoniae Piperacillin/Tazobactam INTERPRE TATION Susceptible Klebsiella pneumoniae Cephalexin INTERPRETATION Resistant Klebsiella pneumoniae Cefuroxime-axetil INTERPRETATION Resistant Klebsiella pneumoniae Cefdinir INTERPRETATION Resistant us Quentin Montoya MD LAB MICROBIOLOGY - [facility] ORDERABLES Final Result [facility] One [facility] Department [place] [address] documented in this encounter Visit Diagnoses Diagnosis Recurrent UTI- Primary Urinary tract infection, site not specified documented in this encounter Care Teams Digital Account Manager Relationship Specialty Start Date End Date Jose Mo MD [facility] [address] [address] PCP - General 06/02/17 08/21/18 documented as of this encounter
--- OUTSIDE RECORDS SUMMARY | 2024-03-26 21:39 | XMS_ITS | Encounter Summary ---
Author Organization [facility] Address [address] [facility] [address] [place] [address] Phone Care Team Providers Care Banking Assistant Name Role Phone Jose Mo MD Primary Care Provider [phone] Reason for Visit * Reason Comments Follow-up Encounter Details Date Type Department Care Team (Late st Contact Info) Description 11/11/2017 10:15 AM CDT Office Visit [facility] Infectious Diseases [address] [place] [address] Quentin Montoya MD [address] [place] [address] Recurrent UTI (Primary Dx) Social History Tobacco Use Types Packs/Day Years Used Date Smoking Tobacco: Every Day Cigarettes Smokeless Tobacco: Never Sex and Gender Information Value Date Recorded Sex Assigned at Not on file Legal Sex Male 6:24 PM TRIM MOUNTER Gender Identity Male 04/18/2020 9:24 AM TRIM MOUNTER Sexual Orientation Straight 04/18/2020 9: 24 AM TRIM MOUNTER documented as of this encounter Last Filed Vital Signs Vital Sign Reading Time Taken Comments Blood Pressure 127/89 11/11/2017 10:30 AM CDT Pulse 81 11/11/2017 10:30 AM CDT Temperature 36.4 ??C (97.5 ??F) 11/11/2017 10:30 AM C DT Respiratory Rate - - Oxygen Saturation - - Inhaled Oxygen Concentration - - Weight 105.2 kg (232 lb) 11/11/2017 10:30 AM CDT Height - - Body Mass Index - - documented in this encounter Progress Notes * Quentin Montoya MD - 11/11/2017 10:15 AM CDT Infectious Disease Follow Up HPI: 47 y.o. [...] normal in ~2014. At his last visit, he had lost his nitrofurantoin and was off for 6-8 weeks before restarting 4-5 days before that clinic visit. At that visit, we checked a UA reflex that grew multi-drug resistant Klebsiella in the setting of cloudy urine with blood. He was treated with 10 days of Ciprofloxacin and his symptoms improved including resolution of hematuria. He then took 1 dose of fosfomycin. He reports that last week he started to have cloudy urine maybe with some blood, and took some old nitrofurantoin which seemed to clear things. His last dose of nitrofurantoin was yesterday. Denies any hematuria dysuria frequency today, but did have some last week PMH: see hpi No past medical history on file. No past surgical history on file. HOME MEDICATIONS : ascorbic acid (vitamin C) 1,000 mg tablet carBAMazepine XR (TEGretol XR) 200 mg 12 hr tablet fosfomycin (MONUROL) 3 gram packet Current Outpatient Prescriptions Ordered in [facility] Medication Sig Dispense Refill ??? ascorbic acid (vitamin C) 1,000 mg tablet 1 tab BID ??? carBAMazepine XR (TEGretol XR) 200 mg 12 hr tablet TK 1 T PO FID UTD 1 ??? fosfomycin (MONUROL) 3 gram packet Take 3 g by mouth every 30 (thirty) days. 1 packet 5 No current [facility]-ordered facility-administered medications on file. Active LDAs: Allergies Allergen Reactions ??? Sulfa (Sulfonamide Antibiotics) Unknown Social History Substance Use Topics ??? Smoking status: Current Every Day Smoker Packs/day: 0.50 Types: Cigarettes ??? Smokeless tobacco: Never Used ??? Alcohol use Not on file Family history reviewed and non-contributory No family history on file. Review of Systems: Complete review of systems reviewed and negative except as otherwise noted in the history of present illness Objective Most Recent : Vitals: 11/11/17 1030 BP: 127/89 Pulse: 81 Temp: 36.4 ??C (97.5 ??F) Physical Exam: General: no acute distress Head, [...] cystoscopy in the past, normal renal ultrasound last year -follow up UA reflex results and treat based on this -continue monthly fosfomycin. Should he develop symptoms and less than a month, we will repeat UA reflex and treat based on those results and also then increase frequency of fosfomycin (perhaps every2 weeks) RTC 6-8 weeks documented in this encounter Plan of Treatment Not on file documented as of this encounter Procedures Procedure Name Priority Date/Time Associated Diagnosis Comments URINALYSIS AND REFLEX TO MICROSCOPIC AND CULTURE Routine 11/11/2017 11:06 AM CDT Recurrent UTI URINALYSIS, MICROSCOPIC ONLY Routine 11/11/2017 11:06 AM CDT Recurrent UTI documented in this encounter Results * (ABNORMAL) Urinalysis, microscopic only (11/11/2017 11:06 AM CDT) WBC, ur 6-10(A) 0 - 5 /HPF [facility] RBC, ur 0-5 0 - 5 /HPF [facility] Bacteria, ur Trace(A) [facility] Amorphous crystals, ur Trace [facility] Urine, clean voided 11/11/2017 11:06 AM CDT 11/11/2017 2:22 PM CDT Narrative [facility] - 11/11/2017 2:46 PM CDT Quentin Montoya MD LAB URINE ORDERABLES Fi nal Result [facility] One [facility] Department [place] [address] * (ABNORMAL) Urinalysis reflex to microscopic and culture Urine, clean voided (11/11/2017 11:06 AM CDT) Color, ur Yellow Yellow [facility] Clarity, ur Clear Clear [facility] Specific gravity, ur 1.008(L) 1.010 - 1.025 [facility] pH, urine 7.0 [facility] Protein, ur ql Negative Negative [facility] Glucose, ur ql Negative Negative [facility] Ketones, ur Negative Negative [facility] Bilirubin, ur Negative Negative [facility] Blood, ur Negative Negative [facility] Comment:Ascorbic acid identi fied in urine; possible false negative blood result. A microscopic exam will be added to identify RBCs. Urobilinogen, ur <2.0 <2.0 mg/dL [facility] Nitrite, ur Positive(A) Negative [facility] Leukocyte esterase, ur 3+(A) Negative [facility] Urine, clean voided 11/11/2017 11:06 AM CDT 11/11/2017 2:22 PM CDT Narrative [facility] - 11/11/2017 2:44 PM CDT ?? Urine pH is affected by diet, medications, systemic acid-base disturbances, and renal tubular function. ??pH may affect urinary stone formation. ??For example, urine pH below 6.0 may help reduce the tendency for calcium phosphate stones and pH greater than 6.0 may reduce the tendency for uric acid stone formation. Source: [employer]. Last revised 04-17-2017 us Quentin Montoya MD LAB MICROBIOLOGY - GENE [facility] ORDERABLES Final Result [facility] Department [place] [address] documented in this encounter Visit Diagnoses Diagnosis Recurrent UTI- Primary Urinary tract infection, site not specified documented in this encounter Care Teams Banking Assistant Relationship Specialty Start Date End Date Jose Mo MD [address] [facility] [address] [place] [address] PCP - General 06/02/17 08/21/18 documented as of this encounter
--- OUTSIDE RECORDS SUMMARY | 2024-03-26 21:39 | XMS_ITS | Encounter Summary ---
Author Organization [facility] Address [address] [place] [address] Phone Care Team Providers Care Latin Teacher Name Role Phone Jose Mo MD Primary Care Provider [phone] Reason for Visit * Reason Onset Date Comments Follow-up 11/20/2017 Encounter Details Date Type Department Care Team (Late st Contact Info) Description 11/20/2017 Telephone [facility] Infectious Diseases [address] [place] [address] Neema Hernandez, [facility] Follow-up Social History Tobacco Use Types Packs/Day Years Used Date Smoking Tobacco: Every Day Cigarettes Smokeless Tobacco: Never Sex and Gender Information Value Date Recorded Sex Assigned at Not on file Legal Sex Male 6:24 PM DENTAL TECHNICIAN APPRENTICE Gender Identity Male 04/18/2020 9:24 AM DENTAL TECHNICIAN APPRENTICE Sexual Orientation Straight 04/18/2020 9: 24 AM DENTAL TECHNICIAN APPRENTICE documented as of this encounter Miscellaneous Notes * Telephone Encounter - Sintia Gilbert - 11/24/2017 1:19 PM CDT Images from the original note were not included. I tried to call and left VM for them to call back. When I talked to the on Friday she was aware to continue on doxy. I didn???t talk to her about changing the fosfomycin. I did ask her to call me when she gets the culture results from the [facility] Thanks Sintia From: Quentin Montoya okay tell them to take the doxy. we'll wait for the cultures from the other place and then he'll take fosfomycin every 2 weeks instead of every 30 days. he can take the first dose two weeks after he finishes doxy From: Sintia Gilbert Sound like the s/s may have been starting at the visit. The said that his urine was smelly when they were here. From: Quentin Montoya Let's see what the culture is from the other hospital. How long between his last visit and his symptoms on 11/17? * Telephone Encounter - Sintia Gilbert - 11/21/2017 10:03 AM CDT Spoke to the pt's and have sent an email to Dr. Montoya. Waiting on a response * Telephone Encounter - Neema Hernandez MA - 11/20/2017 3:17 PM CDT Pt needs to speak with you concerning his results and previous call from yesterday. documented in this encounter Plan of Treatment Not on file documented as of this encounter Visit Diagnoses Not on filedocumented in this encounter Care Teams Latin Teacher Relationship Specialty Start Date End Date Jose Mo MD [address] [address] PCP - General 06/02/17 08/21/18 documented as of this encounter
--- OUTSIDE RECORDS SUMMARY | 2024-03-26 21:39 | XMS_ITS | Encounter Summary ---
Author Organization [facility] Address [address] [facility] [address] [place] [address] Phone Care Team Providers Care Ballaster Name Role Phone Jose Mo MD Primary Care Provider [phone] Reason for Visit * Reason Comments Urinary Problem Encounter Details Date Type Department Care Team (Late st Contact Info) Description 09/23/2017 9:15 AM CDT Office Visit [facility] Infectious Diseases [address] [place] [phone] Quentin Montoya MD [address] [place] [address] Chronic urinary tract infection (Primary Dx) Social History Tobacco Use Types Packs/Day Years Used Date Smoking Tobacco: Every Day Smokeless Tobacco: Never Sex and Gender Information Value Date Recorded Sex Assigned at Not on file Legal Sex Male 6:24 PM ENGINEERING CONSULTANT Gender Identity Male 04/18/2020 9:24 AM ENGINEERING CONSULTANT Sexual Orientation Straight 04/18/2020 9: 24 AM ENGINEERING CONSULTANT documented as of this encounter Last Filed Vital Signs Vital Sign Reading Time Taken Comments Blood Pressure 140/84 09/23/2017 9:38 AM CDT Pulse 71 09/23/2017 9:38 AM CDT Temperature 36.5 ??C (97.7 ??F) 09/23/2017 9:38 AM CD T Respiratory Rate - - Oxygen Saturation - - Inhaled Oxygen Concentration - - Weight 107.2 kg (236 lb 6.4 oz) 09/23/2017 9:38 AM CDT Height - - Body Mass Index - - documented in this encounter Progress Notes * Quentin Montoya MD - 09/23/2017 9:15 AM CDT Infectious Disease Follow Up HPI: [...] reported a cystoscopy was normal in ~2014. In May, returned to clinic and was doing well. He continued on the daily nitrofurantoin and has not had urinary tract infections. He reports that he lost his nitrofurantoin and was off for 6-8 weeks before restarting 4-5 days ago. He reports a smell to his urine, but denies hematuria, dysuria, abdominal pain, fevers. At the conclusion of his visit, he provided a urine sample that was cloudy and had hematuria, but this was the first time this has occurred since his last clinic visit, per his report PMH: see hpi No past medical history on file. No past surgical history on file. HOME MEDICATIONS : Not on File No current [facility]-ordered outpatient prescriptions on file. No current Epic-ordered facility-administered medications on file. Active LDAs: Allergies Allergen Reactions ??? Sulfa (Sulfonamide Antibiotics) Unknown Social History Substance Use Topics ??? Smoking status: Current Every Day Smoker ??? Smokeless tobacco: Never Used ??? Alcohol use Not on file Family history reviewed and non-contributory No family history on file. Review of Systems: Complete review of systems reviewed and negative except as otherwise noted in the history of present illness Objective Most Recent : Vitals: 09/23/17 0938 BP: 140/84 Pulse: 71 Temp: 36.5 ??C (97.7 ??F) Physical Exam: General: no acute distress [...] who presents for follow up. #Recurrent UTIs: patient reports no symptoms other than foul odor since his last visit, however on sample collection, noted cloudy urine and hematuria. Normal cystoscopy in the past, normal renal ultrasound last year -follow up UA reflex results and treat based on this -hold nitrofurantoin for now -given long-term toxicity of pulmonary fibrosis, if he does need suppression in the future, consider something like fosfomycin RTC 5 weeks documented in this encounter Plan of Treatment Not on file documented as of this encounter Procedures Procedure Name Priority Date/Time Associated Diagnosis Comments DIFFERENTIAL AUTO Routine 09/23/2017 10: 45 AM CDT Chronic urinary tract infection URINALYSIS AND REFLEX TO MICROSCOPIC AND CULTURE Routine 09/23/2017 10:45 AM CDT Chronic urinary tract infection CBC WITH AUTO DIFFERENTIAL Routine 09/23/2017 10:45 AM CDT Chronic urinary tract infection URINALYSIS, MICROSCOPIC ONLY Routine 09/23/2017 10:45 AM CDT Chronic urinary tract infection BASIC METABOLIC PANEL Routine 09/23/2017 10:45 AM CDT Chronic urinary tract infection documented in this encounter Results * (ABNORMAL) Urinalysis, microscopic only (09/23/2017 10:45 AM CDT) Pathologist [facility] WBC, ur >50(A) 0 - 5 /HPF [facility] RBC, ur 11-20(A) 0 - 5 /HPF [facility] Epithelial cells, squamous, ur 1-5 0 - 5 /HPF [facility] Epithelial cells, renal, ur 1-5(A) 0 - 0 /HPF [facility] Bacteria, ur Trace(A) [facility] Urine, clean voided 09/23/2017 10:45 AM CDT 09/23/2017 2:29 PM CDT Narrative [facility] - 09/23/2017 4:16 PM CDT Quentin Montoya MD LAB URINE ORDERABLES [facility] Result [facility] Department [place] [address] * Differential, auto (09/23/2017 10:45 AM CDT) Pathologist [facility] Neutrophil abs 4.3 1.7 - 6.5 K/cumm [facility] Imm gran abs 0.0 0.0 - 0.1 K/cumm [facility] Lymphocyte abs 2.1 0.8 - 3.3 K/cumm [facility] Monocyte abs 0.6 0.2 - 0.8 K/cumm [facility] Eosinophil abs 0.1 0.0 - 0.5 K/cumm [facility] Basophil abs 0.0 0.0 - 0.1 K/cumm [facility] Neutrophil pct 59.9 % [facility] Comment: Interpretive Data Percent cell count reference ranges are not reported, since discordance with absolute values may lead to misinterpretation of CBC data. Current Interpretive Data was last revised on 2017. Imm gran pct 0.3 % [facility] Comment: Interpretive Data Percent cell count reference ranges are not reported, since discordance with absolute values may lead to misinterpretation of CBC data. Current Interpretive Data was last revised on 2017. Lymphocyte pct 29.9 % [facility] Comment: Interpretive Data Percent cell count reference ranges are not reported, since discordance with absolute values may lead to misinterpretation of CBC data. Current Interpretive Data was last revised on 2017. Monocyte pct 7.7 % [facility] Comment: Interpretive Data Percent cell count reference ranges are not reported, since discordance with absolute values may lead to misinterpretation of CBC data. Current Interpretive Data was last revised on 2017. Eosinophil pct 1.5 % [facility] Comment: Interpretive Data Percent cell count reference ranges are not reported, since discordance with absolute values may lead to misinterpretation of CBC data. Current Interpretive Data was last revised on 2017. Basophil pct 0.7 % [facility] Comment: Interpretive Data Percent cell count reference ranges are not reported, since discordance with absolute values may lead to misinterpretation of CBC data. Current Interpretive Data was last revised on 2017. Blood specimen (specimen) 09/23/2017 10:45 AM CDT 09/23/2017 2:30 PM CDT Narrative [facility] - 09/23/2017 2:53 PM CDT Quentin Montoya MD LAB BLOOD ORDERABLES Fi nal Result [facility] Department [place] [address] * Basic metabolic panel (09/23/2017 10:45 AM CDT) Sodium 141 135 - 145 mmol/L [facility] Potassium, pl 4.0 3.3 - 4.9 mmol/L [facility] Chloride 103 97 - 110 mmol/L [facility] CO2 29 22 - 32 mmol/L [facility] BUN 9 8 - 25 mg/dL [facility] Glucose 80 70 - 199 mg/dL [facility] Comment: Interpretive Data Fasting glucose >/= [...] Current interpretive data was last revised 2017. Creatinine 0.80 0.80 - 1.30 mg/dL [facility] Calcium 9.2 8.5 - 10.3 mg/dL [facility] Anion gap 9 2 - 15 mmol/L [facility] Blood specimen (specimen) 09/23/2017 10:45 AM CDT 09/23/2017 2:29 PM CDT Narrative [facility] - 09/23/2017 3:09 PM CDT Quentin Montoya MD LAB BLOOD ORDERABLES nal Result [facility] Department [place] [address] * (ABNORMAL) Urinalysis reflex to microscopic and culture Urine, clean voided (09/23/2017 10:45 AM CDT) Color, ur Yellow Yellow [facility] Clarity, ur Cloudy(A) Clear [facility] Specific gravity, ur 1.008(L) 1.010 - 1.025 [facility] pH, urine 7.0 [facility] Protein, ur ql Negative Negative [facility] Glucose, ur ql Negative Negative [facility] Ketones, ur Negative Negative [facility] Bilirubin, ur Negative Negative [facility] Blood, ur 2+(A) Negative [facility] Urobilinogen, ur <2.0 <2.0 mg/dL [facility] Nitrite, ur Positive(A) Negative [facility] Leukocyte esterase, ur 3+(A) Negative [facility] Urine, clean voided 09/23/2017 10:45 AM CDT 09/23/2017 2:29 PM CDT [facility] - 09/23/2017 3:07 PM CDT ?? Urine pH is affected by diet, medications, systemic acid-base disturbances, and renal tubular function. ??pH may affect urinary stone formation. ??For example, urine pH below 6.0 may help reduce the tendency for calcium phosphate stones and pH greater than 6.0 may reduce the tendency for uric acid stone formation. Source: [facility] [employer]. Last revised 04-17-2017 us Quentin Montoya MD LAB MICROBIOLOGY - [facility] ORDERABLES Final Result [facility] Department [place] [address] * CBC with auto differential (09/23/2017 10:45 AM CDT) WBC 7.2 3.8 - 9.9 K/cumm [facility] RBC 4.36 4.30 - 5.80 M/cumm [facility] Hgb 13.3 13.0 - 17.5 g/dL [facility] Hct 39.6 38.9 - 50.3 % [facility] MCV 90.8 81.3 - 96.4 fL [facility] MCH 30.5 27.1 - 33.3 pg [facility] MCHC 33.6 32.3 - 35.7 g/dL [facility] RDW CV 12.9 11.1 - 14.9 % [facility] RDW SD 42.3 35.7 - 48.1 fL [facility] Plt 201 150 - 400 K/cumm [facility] MPV 10.5 9.1 - 12.3 fL [facility] NRBC abs 0.00 0.00 - 0.01 K/cumm [facility] Blood specimen (specimen) 09/23/2017 10:45 AM CDT 09/23/2017 2:30 PM CDT Narrative [facility] - 09/23/2017 2:53 PM CDT Quentin Montoya MD LAB BLOOD ORDERABLES nal Result [facility] Department [place] [address] documented in this encounter Visit Diagnoses Diagnosis Chronic urinary tract infection- Primary Urinary tract infection, site not specified documented in this encounter Historical Medications * This list may reflect changes made after this encounter. carBAMazepine XR (TEGretol XR) 200 mg 12 hr tablet TK 1 T PO FID UTD 1 09/15/2017 06/18/2018 ascorbic acid (vitamin C) 1,000 mg tablet 1 tab BID 03/25/2017 06/18/2018 added in this encounter Care Teams Ballaster Relationship Specialty Start Date End Date Jose Mo MD [address] [facility] [address] [place] [address] PCP - General 06/02/17 08/21/18 documented as of this encounter
--- OUTSIDE RECORDS SUMMARY | 2024-03-26 21:39 | XMS_ITS | Encounter Summary ---
Author Organization [facility] Healthcare Address [address] [place] [address] Care Team Providers Care Facility Planner Name Role Phone Jose Mo MD Primary Care Provider [phone] Encounter Details Date Type Department Care Team (Latest Contact Info) Description 06/11/2018 10:19 PM DIRECTOR HUMAN SERVICES Hospital Encounter [facility] [address] [place] [phone] Discharge Disposition: Discharge to home or self care Social History Tobacco Use Types Packs/Day Years Used Date Smoking Tobacco: Every Day Cigarettes Smokeless Tobacco: Never Sex and Gender Information Value Date Recorded Sex Assigned at Not on file Legal Sex Male 6:24 PM DIRECTOR HUMAN SERVICES Gender Identity Male 04/18/2020 9:24 AM DIRECTOR HUMAN SERVICES Sexual Orientation Straight 04/18/2020 9: 24 AM DIRECTOR HUMAN SERVICES documented as of this encounter Medications at [...] OF OUTSIDE FILMS Routine 06/11/2018 10:19 PM DIRECTOR HUMAN SERVICES documented in this encounter Results * XR Outside Reference (06/11/2018 10:19 PM DIRECTOR HUMAN SERVICES) Impressions [facility] - 06/11/2018 10:19 PM DIRECTOR HUMAN SERVICES These images are for Reference purposes only and have not been reviewed by [facility]. ??There will be no report generated by a [facility]iologist. Narrative [facility] - 06/11/2018 10:19 PM DIRECTOR HUMAN SERVICES EXAMINATION: ??Images For Reference Purposes Only us Rosendo Bush Jr., MD IMG XR PROCEDURES F inal Result [facility] documented in this encounter Visit Diagnoses Not on filedocumented in this encounter Care Teams Facility Planner Relationship Specialty Start Date End Date Jose Mo MD [address] [facility] [address] [place] [address] PCP - General 06/02/17 08/21/18 documented as of this encounter
--- OUTSIDE RECORDS SUMMARY | 2024-03-26 21:39 | XMS_ITS | Encounter Summary ---
Author Organization [facility] Address [address] [facility] [address] [place] [address] Phone Care Team Providers Care Mail Sorter Name Role Phone Jose Mo MD Primary Care Provider [phone] Encounter Details Date Type Department Care Team (Late st Contact Info) Description 02/11/2018 Orders Only [facility] Infectious Diseases [address] [place] [address] [address] [place] [phone] Quentin Montoya MD [address] [facility] [address] [place] [address] Urinary tract infection without hematuria, site unspecified Social History Tobacco Use Types Packs/Day Years Used Date Smoking Tobacco: Every Day Cigarettes Smokeless Tobacco: Never Sex and Gender Information Value Date Recorded Sex Assigned at Not on file Legal Sex Male 6:24 PM AMERICAN INDIAN POLICY SPECIALIST Gender Identity Male 04/18/2020 9:24 AM AMERICAN INDIAN POLICY SPECIALIST Sexual Orientation Straight 04/18/2020 9: 24 AM AMERICAN INDIAN POLICY SPECIALIST documented as of this encounter Ordered Prescriptions Prescription Sig Dispense Quantity Refills Last Filled Start Date End Date fosfomycin (MONUROL) 3 gram packetIndications: Urinary Tract/Genitourinar y Infection Take 3 g by mouth every 14 (fourteen) days. 2 packet 3 02/11/2018 06/18/2018 ciprofloxacin (CIPRO) 500 mg tabletIndications: Urinary Tract/Genitourinar y Infection Take 1 tablet (500 mg total) by mouth 2 (two) times a day for 7 days. 14 tablet 02/11/2018 02/18/2018 documented in this encounter Plan of Treatment Not on file documented as of this encounter Visit Diagnoses Diagnosis Urinary tract infection without hematuria, site unspecified documented in this encounter Discontinued Medications Medication Sig Discontinue Reason Start Date End Da te fosfomycin (MONUROL) 3 gram packetIndications:Urinary Tract/Genitourinary Infection Take 3 g by mouth every 30 (thirty) days. Reorder 09/26/2017 02/11/2018 documented as of this encounter Care Teams Mail Sorter Relationship Specialty Start Date End Date Jose Mo MD [address] [place] [address] PCP - General 06/02/17 08/21/18 documented as of this encounter
--- OUTSIDE RECORDS SUMMARY | 2024-03-26 21:39 | XMS_ITS | Encounter Summary ---
Author Organization [facility] Address [address] [place] [address] Phone Care Team Providers Care [facility] Name Role Phone Jose Mo MD Primary Care Provider [phone] Encounter Details Date Type Department Care Team (Late st Contact Info) Description 11/19/2017 Telephone [facility] Infectious Diseases [address] [place] [address] [address] [place] [address] Jacque Mendieta Social History Tobacco Use Types Packs/Day Years Used Date Smoking Tobacco: Every Day Cigarettes Smokeless Tobacco: Never Sex and Gender Information Value Date Recorded Sex Assigned at Not on file Legal Sex Male 6:24 PM STUDENT SUCCESS COACH Gender Identity Male 04/18/2020 9:24 AM STUDENT SUCCESS COACH Sexual Orientation Straight 04/18/2020 9: 24 AM STUDENT SUCCESS COACH documented as of this encounter Miscellaneous Notes * Telephone Encounter - Nat Beck - 11/20/2017 8:57 AM CDT There is a urine sample from 11/11, would you like another before treating? * Telephone Encounter - Jacque Mendieta - 11/19/2017 2:16 PM CDT [phone], patient has been off work since mon, 11/17/17, fever, 101.6, down now with tylenol, very weak, headache, nausea, thought maybe the flu. Mild pain during urination, has had chronic UTI's,needing a rx. documented in this encounter Plan of Treatment Not on file documented as of this encounter Visit Diagnoses Not on filedocumented in this encounter Care Teams [facility] Relationship Specialty Start Date End Date Jose Mo MD [address] [address] PCP - General 06/02/17 08/21/18 documented as of this encounter
--- OUTSIDE RECORDS SUMMARY | 2024-03-26 21:39 | XMS_ITS | Encounter Summary ---
Author Organization [facility] Address [address] [facility] [address] [place] [address] Phone Care Team Providers Care Human Resources Compensation Analyst Name Role Phone Jose Mo MD Primary Care Provider [phone] Encounter Details Date Type Department Care Team (Late st Contact Info) Description 09/23/2017 Orders Only [facility] Infectious Diseases [address] [place] [address] [address] [place] [phone] Quentin Montoya MD [address] [facility] [address] [place] [address] Social History Tobacco Use Types Packs/Day Years Used Date Smoking Tobacco: Every Day Smokeless Tobacco: Never Sex and Gender Information Value Date Recorded Sex Assigned at Not on file Legal Sex Male 6:24 PM 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 Gender Identity Male 04/18/2020 9:24 AM 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 Sexual Orientation Straight 04/18/2020 9: 24 AM 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 documented as of this encounter Plan of Treatment Not on file documented as of this encounter Procedures Procedure Name Priority Date/Time Associated Diagnosis Comments URINE CULTURE Routine Gen Lab 09/23/2017 10:45 AM CDT documented in this encounter Results * (ABNORMAL) Urine culture (09/23/2017 10:45 AM CDT) Report Final Report: Greater than or equal to 100,000 colonies/mL of Klebsiella pneumoniae (.) [facility] Organism KLEBSIELLA PNEUMONIAE [facility] Urine, clean voided 09/23/2017 10:45 AM CDT 09/23/2017 6:22 PM CDT Narrative [facility] - 09/24/2017 12:21 PM CDT Urine culture reflexed based upon urinalysis results. Testing performed by [facility] Microbiology Laboratory ([phone]) Organism Antibiotic Method Susceptibility Klebsiella pneumoniae Ampicillin [...] Quentin Montoya MD LAB MICROBIOLOGY - [facility] ORDERABLES Final Result [facility] [place] [address] documented in this encounter Visit Diagnoses Not on filedocumented in this encounter Care Teams Human Resources Compensation Analyst Relationship Specialty [place] [address] [place] [address] [address] [address] PCP - General 06/02/17 08/21/18 documented as of this encounter
--- OUTSIDE RECORDS SUMMARY | 2024-03-26 21:39 | XMS_ITS | Encounter Summary ---
Author Organization [facility] Healthcare Address [address] [place] [address] Care Team Providers Care Retort Furnace Operator Name Role Phone Unknown, Notinfile Primary Care Provider Unavail able Encounter Details Date Type Department Care Team (Latest Contact Info) Description 05/20/2017 1:21 PM PROCESS ANALYST - 05/20/2017 11:59 PM PROCESS ANALYST Hospital Encounter [facility] OP INTERIM [phone] Quentin Montoya MD [address] [place], [place] [id number] Discharge Disposition: Discharge to home or self care Social History Tobacco Use Types Packs/Day Years Used Date Smoking Tobacco: Never Assessed Sex and Gender Information Value Date Recorded Sex Assigned at Not on file Legal Sex Male 6:24 PM PROCESS ANALYST Gender Identity Male 04/18/2020 9:24 AM PROCESS ANALYST Sexual Orientation Straight 04/18/2020 9: 24 AM PROCESS ANALYST documented as of this encounter Medications at Time of Discharge ascorbic acid (vitamin C) 1,000 mg tablet 1 tab BID 03/25/2017 06/18/2018 documented as of this encounter Discharge Disposition Disposition Code Departure Means Destination Discharge to home or self care documented in this encounter Plan of Treatment Not on file documented as of this encounter Procedures Procedure Name Priority Date/Time Associated Diagnosis Comments CS GLUCOSE Routine Gen Lab 05/20/2017 1:26 PM PROCESS ANALYST DIFFERENTIAL AUTO Routine Gen Lab 05/20/2017 1:2 6 PM PROCESS ANALYST COMPREHENSIVE METABOLIC PANEL WITHOUT GLUCOSE (OUTREACH) Routine Gen Lab 05/20/2017 1:26 PM PROCESS ANALYST CBC WITH AUTO DIFFERENTIAL Routine Gen Lab 05/20/2017 1:26 PM PROCESS ANALYST DISCHARGE LABORATORY CUMULATIVE REPORT 05/20/2017 12:00 AM PROCESS ANALYST documented in this encounter Results * Comprehensive metabolic panel, without glucose (Outreach) (05/20/2017 1:26 PM PROCESS ANALYST) Sodium 142 135 - 145 mmol/L [facility] Potassium, pl 4.3 3.3 - 4.9 mmol/L [facility] Chloride 101 97 - 110 mmol/L [facility] CO2 31 22 - 32 mmol/L [facility] Anion gap 10 2 - 15 mmol/L [facility] BUN 13 8 - 25 mg/dL [facility] Creatinine 0.84 0.80 - 1.30 mg/dL [facility] Calcium 9.3 8.5 - 10.3 mg/dL [facility] Protein, pl 7.9 6.5 - 8.5 g/dL [facility] Albumin 4.7 3.5 - 5.0 g/dL [facility] Bilirubin, total 0.2 0.1 - 1.2 mg/dL [facility] Alk phos 114 40 - 130 Units/L [facility] AST 22 10 - 50 Units/L [facility] ALT 29 7 - 55 Units/L [facility] Blood specimen (specimen) 05/20/2017 1:26 PM PROCESS ANALYST 05/20/2017 2:51 PM PROCESS ANALYST Narrative [facility] - 05/20/2017 3:52 PM PROCESS ANALYST us Quentin Montoya MD LAB BLOOD ORDERABLES Fi nal Result [facility] Department [place] [address] * CS GLUCOSE (05/20/2017 1:26 PM PROCESS ANALYST) Glucose 82 70 - 199 mg/dL [facility] Comment: Interpretive Data Fasting glucose >/= [...] interpretive data was last revised 2017. Blood specimen (specimen) 05/20/2017 1:26 PM PROCESS ANALYST 05/20/2017 2:51 PM PROCESS ANALYST Narrative [facility] - 05/20/2017 3:15 PM PROCESS ANALYST us Quentin Montoya MD LAB BLOOD ORDERABLES Fi nal Result [facility] Department [place] [address] * Differential, auto (05/20/2017 1:26 PM PROCESS ANALYST) Pathologist [facility] Neutrophil pct 55.8 % [facility] Imm gran pct 0.5 % [facility] Lymphocyte pct 34.1 % [facility] Monocyte pct 7.9 % [facility] Eosinophil pct 1.2 % [facility] Basophil pct 0.5 % [facility] Neutrophil abs 3.60 1.70 - 6.50 K/cumm [facility] Imm gran abs 0.03 0.00 - 0.10 K/cumm [facility] Lymphocyte abs 2.20 0.80 - 3.30 K/cumm [facility] Monocyte abs 0.51 0.20 - 0.80 K/cumm [facility] Eosinophil abs 0.08 0.00 - 0.50 K/cumm [facility] Basophil abs 0.03 0.00 - 0.10 K/cumm [facility] Blood specimen (specimen) 05/20/2017 1:26 PM PROCESS ANALYST 05/20/2017 2:51 PM PROCESS ANALYST Narrative [facility] - 05/20/2017 3:00 PM PROCESS ANALYST Quentin Montoya MD LAB BLOOD ORDERABLES Fi nal Result Performing Organization Address [facility] Co de Phone Number [facility] [place] [address] * CBC with auto differential (05/20/2017 1:26 PM PROCESS ANALYST) [facility] WBC 6.4 3.8 - 9.9 K/cumm [facility] RBC 4.54 4.30 - 5.80 M/cumm [facility] Hgb 13.7 13.0 - 17.5 g/dL [facility] Hct 41.7 38.9 - 50.3 % [facility] MCV 91.9 81.3 - 96.4 fL [facility] MCH 30.2 27.1 - 33.3 pg [facility] MCHC 32.9 32.3 - 35.7 g/dL [facility] RDW CV 12.9 11.1 - 14.9 % [facility] RDW SD 43.1 35.7 - 48.1 fL [facility] Plt 221 150 - 400 K/cumm [facility] MPV 10.1 9.1 - 12.3 fL [facility] NRBC abs 0.00 0.00 - 0.01 K/cumm [facility] Blood specimen (specimen) 05/20/2017 1:26 PM PROCESS ANALYST 05/20/2017 2:51 PM PROCESS ANALYST Narrative [facility] - 05/20/2017 3:00 PM PROCESS ANALYST Quentin Montoya MD LAB BLOOD ORDERABLES Fi nal Result Performing Organization Address [facility]/ZIP Co de Phone Number [facility] Department [place] [address] * DISCHARGE LABORATORY CUMULATIVE REPORT (05/20/2017 12:00 AM PROCESS ANALYST) Narrative 05/20/2017 12:00 AM PROCESS ANALYST Ordered by an unspecified provider. us Historical Provider LAB BLOOD ORDERABLES Gricelda l Result documented in this encounter Visit Diagnoses Not on filedocumented in this encounter Care Teams Retort Furnace Operator Relationship Specialty Start Date End Date Unknown, Notinfile PCP - General 05/20/17 06/01/17 documented as of this encounter
--- OUTSIDE RECORDS SUMMARY | 2024-03-26 21:39 | XMS_ITS | Encounter Summary ---
Author Organization [facility] Address [address] [facility] [address] [place] [address] Phone Care Team Providers Care Fire Prevention Engineer Name Role Phone Jose Mo MD Primary Care Provider [phone] Encounter Details Date Type Department Care Team (Late st Contact Info) Description 04/24/2018 Telephone [facility] Infectious Diseases [address] [place] [address] [address] [place] [address] Nat Beck Social History Tobacco Use Types Packs/Day Years Used Date Smoking Tobacco: Every Day Cigarettes Smokeless Tobacco: Never Sex and Gender Information Value Date Recorded Sex Assigned at Not on file Legal Sex Male 6:24 PM RN LAB Gender Identity Male 04/18/2020 9:24 AM RN LAB Sexual Orientation Straight 04/18/2020 9: 24 AM RN LAB documented as of this encounter Miscellaneous Notes * Telephone Encounter - Nat Beck - 04/24/2018 1:26 PM CST Discussed lab results with Mr. Jain, no reflex to culture. If having symptoms again to give another urine sample. He does have a standing order at [facility]. LAB documented in this encounter Plan of Treatment Not on file documented as of this encounter Visit Diagnoses Not on filedocumented in this encounter Care Teams Fire Prevention Engineer Relationship Specialty Start Date End Date Jose Mo MD [address] [address] PCP - General 06/02/17 08/21/18 documented as of this encounter
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
--- OUTSIDE RECORDS SUMMARY | 2024-03-26 21:39 | XMS_ITS | Encounter Summary ---
Author Organization [facility] Healthcare Address [address] [place] [address] Care Team Providers Care Equities Trader Name Role Phone Jose Mo MD Primary Care Provider [phone] Encounter Details Date Type Department Care Team (Late st Contact Info) Description 06/12/2018 8:00 AM TRIMMER BUFFING WHEEL - 06/12/2018 11:15 AM [facility] Surgery [facility] Operating Room [address] [place] [address] Flash Magaña MD [address] [facility] [address]6B[address] [place] [address] INTRAMEDULLARY NAIL - TIBIAL Surgery Details Date/Time Status Location OR Service Patient Class Case Class Case Type Trauma Case? 06/12/2018 8:[address] [facility] OR POD 2 205 Orthopaedics Inpatient Elective Panel 1 Procedure LRB Anes Op Region Wound Class Comments INTRAMEDULLARY NAIL - TIBIAL Right General Leg Lower C lass I - Clean Open Reduction Internal Fixa tion Tibia - Proximal - Synthes Right General Leg Lower Class I - Hiral n Surgeon Surgeon Role Service Panel Flash Magaña MD Primary Orthopaed ics 1 Rosendo Mena MD Resident - Assisting Minor Pr ocedures 1 Orlando Friedman MD Resident - Assisting Castro r Procedures 1 documented in this encounter Social History Tobacco Use Types Packs/Day Years Used Date Smoking Tobacco: Every Day Cigarettes Smokeless Tobacco: Never Sex and Gender Information Value Date Recorded Sex Assigned at Not on file Legal Sex Male 6:24 PM TRIMMER BUFFING WHEEL Gender Identity Male 04/18/2020 9:24 AM TRIMMER BUFFING WHEEL Sexual Orientation Straight 04/18/2020 9: 24 AM TRIMMER BUFFING WHEEL documented as of this encounter Last Filed Vital Signs Vital Sign Reading Time Taken Comments Blood Pressure 120/68 06/12/2018 8:00 AM TRIMMER BUFFING WHEEL Pulse 93 06/12/2018 8:20 AM TRIMMER BUFFING WHEEL Temperature 36.8 ??C (98.2 ??F) 06/12/2018 6:35 AM CS T Respiratory Rate 16 06/12/2018 8:20 AM TR[employer]MER BUFFING WHEEL Oxygen Saturation 94% 06/12/2018 8:20 AM TR[employer]MER BUFFING WHEEL Inhaled Oxygen Concentration - - Weight 108.9 kg (240 lb) 06/11/2018 2:30 PM TRIMMER BUFFING WHEEL Height 172.7 cm (5' 8 ) 06/11/2018 2:30 PM TRIMMER BUFFING WHEEL Body Mass Index 36.49 06/11/2018 2:30 PM TRIMMER BUFFING WHEEL documented in this encounter Discharge Summaries * Felicia Josue, MARCY - 06/18/2018 1:29 PM CDT Inpatient Discharge Summary Admitting Provider: Flash Magaña MD Discharge Provider: Flash Irby* Primary Care Physician at Discharge: Jose Mo MD [phone] Primary Discharge Diagnosis: Closed displaced oblique fracture [...] was seen at OSH and transferred to [facility] for level of care and admitted [...] Discharge Medications: Angus Jain Home Medication Instructions CAMRON:[id number] Printed on:06/18/18 0962 Medication Information ascorbic acid (VITAMIN C) 1,000 [...] previous diet Follow-up: Dr. Flash Magaña on 07/06 at 9a at [facility] 6A: [facility] ([facility]), [address] [place] [address], 6th [address], [place] [address]. Condition on Discharge: Stable Cosigned by Flash [...] B. Berkes, MD Department of Orthopaedic Surgery ([facility]) MOST COMMONLY ASKED QUESTIONS & ANSWERS FOR [...] Applications are available for download from the [place] and [place] DMV websites or from your petrol tanker driver???s license facility. Also, our medical [...] state by state; but in [place] and [place] there are no laws prohibiting driving after orthopedic surgery. If you are involved in a car accident, law enforcement will determine your ability to drive on a case by case basis. Please check your own state laws if driving outside of [place] or [place]. Some insurance companies may have policies restricting [...] call Aliya Abarca Stephanie or Mireya at [phone] between 8:00 am and 4:00 pm, Friday [...] please give our office a call at [phone]. Dr. Palacios, Dr. Pantoja and Dr. Magaña have four medical assistants. The medical assistants can bereached at [phone]. Please understand that they are in clinic on certain days and will return your phone call, as soon as possible. If you have specific questions about the scheduling of a future orthopaedic surgery to be performedby Dr. Palacios, Dr. Pantoja or Dr. Magaña, please call Tiki Lopez MA at [phone]. documented in this encounter Medications at Time [...] this encounter Progress Notes * Estephania Mak, LABOR EMPLOYMENT ASSOCIATE - 06/18/2018 2:04 PM CDT 06/18/18 1401 Discharge Summary Chart reviewed For Medical Necessity Does patient have a planned readmission to hospital planned? No Discharge Disposition Inpatient (Acute) Rehab Hospital Specify Facility [facility] 2nd Floor Facility Contact Number [phone] Discharge Records Transfer Form Completed;Chart Copied Equipment/Provider Needs No Home Needs Identified Discharge Additional Assistance Does the patient need discharge transport arranged? Yes Has discharge transport been arranged? Yes Details of Transportation [facility] [phone] What day is the transport expected? 06/18/18 [...] with placement Date and time of transportation: June 18, 2018 * Cullen Mack MD - 06/18/2018 8:57 [...] mg oral Q6H PRN 25 mg at 06/17/187 ??? enoxaparin (LOVENOX) syringe 40 mg 40 mg subcutaneous Daily-2100 40 mg at 06/17/182112 ??? ESOMEPRAZOLE 40MG DR (PATIENT'S OWN SUPPLY) 40 mg oral Before breakfast 40 mg at 06/17/18 0751 ??? fosfomycin (MONUROL) packet 3 g 3 g oral every 2 weeks 3 g at 06/14/18 0029 ??? gabapentin (NEURONTIN) capsule 300 mg 300 mg oral TID 300 mg at 06/17/180 ??? HYDROcodone-acetaminophen (NORCO) 5-325 mg per tablet [...] splint Elevate RLE PT/OT Pain control: PO [place], flexeril, robaxin DVT ppx: Lvx Dispo: PT rec inpatient rehab, pending placement Please call [phone] with questions during weekday/daytime, page ortho trauma [...] tablet oral Q4H PRN 2 tablet at 06/17/18830 ??? hydrocortisone 2.5 % cream topical Daily [...] RLE Will need PT/OT Pain control: PO [place], flexeril, robaxin DVT ppx: Lvx Dispo: PT rec inpatient rehab, pending placement Please call [phone] with questions during weekday/daytime, page ortho trauma [...] mg oral Daily 4,000 mg at 06/16/18 8004 ??? bisacodyl (DULCOLAX) suppository 10 mg 10 mg rectal Daily PRN ??? calcium carbonate (TUMS) chewable tablet 1,000 mg 400 mg of elemental calcium oral BID PRN 1,000 mg at 06/14/18 1312 ??? carBAMazepine XR (TEGretol XR) extended release tablet 800 mg 800 mg oral Nightly 800 mg at 06/15/182224 ??? cyclobenzaprine (FLEXERIL) tablet 10 mg 10 [...] 750 mg oral TID 750 mg at 06/16/18753 ??? morphine injection 2 mg 2 mg intravenous Q4H PRN 2 mg at 06/15/182228 ??? ondansetron ODT (ZOFRAN-ODT) disintegrating tablet 4 mg 4 mg oral Q6H PRN Or ??? ondansetron (ZOFRAN) injection 4 mg 4 mg intravenous Q6H PRN 4 mg at 06/12/18 1111 ??? psyllium (aspartame) SF (METAMUCIL SF) 3.4 gram packet 1 packet 1 packet oral Daily 1 packet at06/16/184 ??? senna-docusate (PERICOLACE) 8.6-50 mg per tablet [...] RLE Will need PT/OT Pain control: PO [place], flexeril, robaxin DVT ppx: Lvx Abx: post-op ancef after OR, CTX for UTI Dispo: PT rec inpatient rehab, pending placement Please call [phone] with questions during weekday/daytime, page ortho trauma if overnight * Estephania Mak LCSW - 06/15/2018 3:06 PM CDT 06/15/18 1506 Legal Information Have you reviewed your Advance Directive and is it valid for this stay? No Advance Directive Patient does not have advance directive * Estephania Mak LCSW - 06/15/2018 3:01 PM CDT 06/15/18 1459 Referral Data Referral Source Physician Referral Reason Discharge Planning Patient Information Primary Caregiver Self Support System Spouse/Significant Other Support system contact info (name, phone, availablity) Melissa (spouse) [phone] Legal Information Have you reviewed your Advance [...] Patient choice (Home Health/Hospice) list given to patient/digital sales representative? Not Applicable Long-Term Facility list given to patient/digital sales representative? Not Applicable Fiduciary Responsibility Patient/Designated decision maker was informed of [facility] fiduciary relationship as necessary Social work provided the patient/family with a printed list of facilities for review and discussed d/c options to meet the patient's needs. Health Insurance Coverage: [facility] [facility] Social History: Prior to admission the patient was mostly independent and lived with his spouse. Additional Information: NIKOLAY met with patient and his spouse to discuss discharge plans and possible rehab placement. Patient was in agreement with rehab and requested a referral to [facility]. [facility] referral sent. Impressions: Patient was pleasant [...] Plan: [employer] referral will be sent to [facility] per patient/family request. Social Work to follow. [...] RLE Will need PT/OT Pain control: PO [place], flexeril, robaxin DVT ppx: Lvx Abx: post-op ancef after OR, CTX for UTI Please call [phone] with questions during weekday/daytime, page ortho trauma [...] 40 mg subcutaneous Daily-2100 40 mg at 06/12/182047 ??? [START ON 06/14/2018] fosfomycin (MONUROL) packet [...] Will need PT/OT post-op Pain control: PO [place] DVT ppx: Lvx Abx: post-op ancef after OR, CTX for UTI Please call [phone] with questions during weekday/daytime, page ortho trauma if overnight MER BUFFING WHEEL * Nic Mcintyre MD - 06/12/2018 9:15 AM CST Ortho Trauma Daily Progress Subjective Pain adequately controlled. No nausea/vomiting, no fevers/chills/sweats.Not lightheaded or dizzy. Current Facility-Administered Medications Medication Dose Route Frequency Last Rate Last Dose ??? [JUN Hold] ascorbic acid (VITAMIN C) tablet/chewable tablet 4,000 mg 4,000 mg oral Daily 4,000mg at 06/11/18 1730 ??? [JUN Hold] carBAMazepine XR (TEGretol XR) extended release tablet 800 mg 800 mg oral Nightly 800 mg at 06/11/18 2104 ??? [JUN Hold] cefTRIAXone (ROCEPHIN) 2000 mg/20 mL in sterile water (premix) 2,000 mg 2,000 mg intravenous Q24H JESSICA 240 mL/hr at 06/11/184 2,000 mg at 06/11/184 ??? [JUN Hold] diphenhydrAMINE (BENADRYL) tab/cap 25 mg 25 mg oral Q6H PRN ??? [Held by Provider] enoxaparin (LOVENOX) syringe 40 mg 40 mg subcutaneous Daily-2100 40 mg at 06/11/185 ??? [JUN Hold] fosfomycin (MONUROL) packet 3 g 3 [...] Will need PT/OT post-op Pain control: PO [place] DVT ppx: Lvx, please hold DVT PPX AM of surgery Abx: None required at this time from Ortho perspective, will need post-op ancef after OR Dispo: Pending OR Please call [phone] with questions during weekday/daytime, page ortho trauma if overnight MER BUFFING WHEEL documented in this encounter Consult Notes * [...] residual BLE spasticit y, sz d/o (last sz ), incomplete quadriparesis, bladder incontinence, recurrent UTI (on monurol-sees our ID), chronic venous insuff (h/o ulcers to LEs). 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 Baseline Ambulatory Status: community Assistive Device [...] +DP/PT pulses, toes WWP, BCR <2 seconds NIESHA 1.2 LLE No obvious deformity, skin intact [...] Flash Magaña - Please call with questions [phone] Cosigned by Flash Magaña MD at 06/12/2018 4:21 AM TRIMMER BUFFING WHEEL MER BUFFING WHEEL MER BUFFING WHEEL Associated attestation - Flash Magaña MD - 06/12/2018 4:21 AM TRIMMER BUFFING WHEEL I personally saw and examined the patient [...] at 12:09pm. Patient was transferred to room 90580O. Patient stable, denies pain, family at bedside, call light within reach. MER BUFFING WHEEL * Avril Ma RN - 06/12/2018 11:00 PM CST [place] [address] from [facility]. Patient and family member were under the impression they were getting a private room when they transferred. The floor was unable to accommodate aprivate room at this time but possibly can tomorrow during the day. The family requested to stay inthe current room for tonight and transfer in the morning when the room situation was fixed. The ortho night tax services intern, Isabela was notified and was okay with the patient staying on the floor for tonight. MER BUFFING WHEEL * Maritza Moss RN - 06/11/2018 2:30 PM CST New admit into [facility] from [facility]. Patient oriented to unit policy, procedure and call light use. VS obtained and recorded. Skin check verified by Nessa Matute RN. Assessment is as documented. Ortho/Trauma notified of arrival on unit. Awaiting orders. Cosigned by Tea Matute RN at 06/11/2018 5:55 PM TRIMMER BUFFING WHEEL MER BUFFING WHEEL MER BUFFING WHEEL MER BUFFING WHEEL documented in this encounter Miscellaneous Notes * [...] 126/67 * Plan of Care - Franklin Hood RN - 06/18/2018 10:46 AM CDT Problem: Health [...] environment Outcome: Progressing Goals: * Plan of Care - Juana Diamond RN - 06/17/2018 11:24 [...] AE PRN. Outcome: Progressing Flowsheets (Taken 06/17/2018 3037) Assist Level: MAX Problem: Toileting Goal: STG - Patient will complete toileting tasks with Description With min A. Outcome: Progressing Flowsheets (Taken 06/17/2018 3300) Assist Level: MOD Problem: Transfers Goal: STG - Patient will perform toilet transfer Description To drop-arm [facility] [place] [place], with supervision. Outcome: Completed * Plan of [...] AM CDT Patient is being followed by [facility]. Currently awaiting insurance authorization. SW will follow. * Plan of Care - [...] on pain control today. * Plan of Care - Claudia Rizo - 06/16/2018 4:14 AM CDT Goals: Problem: [...] to supine Description Supervision Outcome: Progressing * TRANIN Note - Estephania Mak, LABOR EMPLOYMENT ASSOCIATE - 06/15/2018 4:01 PM CDT Patient Information: [...] Yes -SS -- RLE Weight Bearing NWB -SS -- Type of Home House -SS -- [...] to sit on seats due to spasticity -SS -- Home Mobility Equipment Single point cane;Wheeled walker -SS -- Home ADL Equipment Quality Process Lead -SS -- Additional Comments Patient reports use of single point cane for all functional mobility. 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 Patient able to use line maintenance supervisor to don pants over left LE, but required assistance for right LE due to cast. During treatment, patient required increased rest breaks in order to allow for muscle spasms to pass. -SS -- Problem List Decreased ADLs;Decreased functional mobility;Decreased ADL independence;Abnormal tone -SS -- Barriers to Discharge Decreased caregiver support -SS -- Barrier Comments SAFETY CONCERNS due to [...] - -- OT - Next Appointment 06/17/18 -SS -- OT - OK to Discharge No -SS -- OT Evaluation Complete Yes -SS -- User Vanegas (r) = Recorded By, (t) = Taken By, (c) = Cosigned By Initials Name Effective Dates SS Wanda Henriquez, OT 01/07/18 - OT Treatment No documentation. 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 * Plan of Care - Wanda Henriquez OT - 06/15/2018 3:21 PM CDT Problem: [...] with rehab and requested a referral to [facility]. SW will follow. ADD- -14-19 * Plan of Care - Madeline Martínez RN - 06/15/2018 3:02 PM CDT Patient transferred to [place] [address] on 06/13/18. SW following for placement. CM [...] pain control. Patient is progressing towards goals. MER BUFFING WHEEL * Plan of Care - Pat Fernandez [...] Will continue to monitor. Pat Fernandez RN MER BUFFING WHEEL * Plan of Care - Avril Ma [...] comfort Summary: patient progressing toward set goals MER BUFFING WHEEL * Plan of Care - Lobo Martins RN - 06/12/2018 3:01 PM TRIMMER BUFFING WHEEL Problem: Health Behavior: Goal: Understanding of discharge [...] comfort Summary: Pt progressing toward all goals. MER BUFFING WHEEL * Op Note - Flash Magaña MD [...] nailing ?? SURGEON: Flash Magaña MD ?? COMMODITY INDUSTRY ANALYST: Narciso Friedman MD, Niot Mena MD ?? ANESTHESIA: general ?? IV FLUIDS AND URINE: See anesthesia record. ?? ESTIMATED BLOOD LOSS: 100 mL. ?? IMPLANTS: synthes 3.5 medial proximal tibia LCP, synthes tibia EX intramedullary nail ([id number] mm) with 4 proximal and 2 distal [...] well. A synthes EX tibial nail size [id number] was then selected and brought onto the field and then seated into the tibia with care not to countersink the nail excessively whileachieving optimal proximal fixation??. ??We then confirmed the fracture alignment which was maintained in acceptable position. Attention was then turned distally as perfect chehal[place] technique was utilized to place 2 distal [...] the deep layers closed with #1 vicryl [id number] interrupted sutures. 2-0 monocryl was used for [...] team; if possible, we would prefer aspirin. MER BUFFING WHEEL * Brief Op Note - Rosendo Mena MD - 06/12/2018 9:12 AM CST Operative Progress Note Attending Surgeon: Flash Magaña MD Surgical Team: Manager Forensic: Joelle Garvey RN; Sofia Randle RN Foreign Language Instructor: RT Gilberto Scrub: Leandro Paredes RN WAREHOUSE PRICING AND INVENTORY CLERK: Morgan Pacheco NP DATE OF SURGERY : [...] Implant Name Type Inv. Item Serial No. Lockstitch Coat Joiner Lot No. LRB No. Used SYNTHES 239.960 LCP COMBI 171MM 10 HOLE LIMIT CONTACT TIBIAL RIGHT PROXIMAL - [id number] Plate SYNTHES 239.960 LCP COMBI 171MM 10 HOLE LIMIT CONTACT TIBIAL RIGHT PROXIMAL Synthes Right 1 SYNTHES 204.824 3.5MM 6MM 24MM 2.5MM SELF TAP SMALL HEXAGONAL SOCKET LOW PROFILE - [id number] ScrewSYNTHES 204.824 3.5MM 6MM 24MM 2.5MM SELF TAP SMALL HEXAGONAL SOCKET LOW PROFILE Synthes Right 3 SYNTHES 212.121 3.5MM 2.9MM 50MM SELF TAP LOCK STARDRIVE CONICAL HEAD T15 FULL - [id number] Screw SYNTHES 212.121 3.5MM 2.9MM 50MM SELF TAP LOCK STARDRIVE CONICAL HEAD T15 FULL Synthes Right 2 SYNTHES 212.121 3.5MM 2.9MM 50MM SELF TAP LOCK STARDRIVE CONICAL HEAD T15 FULL - [id number] Screw SYNTHES 212.121 3.5MM 2.9MM 50MM SELF TAP LOCK STARDRIVE CONICAL HEAD T15 FULL Synthes Right 2 SYNTHES 04.034.649S EXPERT 12MM 345MM CANNULATED PROXIMAL BEND TIBIAL FLUTE NAIL - [id number] Nail SYNTHES 04.034.649S EXPERT 12MM 345MM CANNULATED PROXIMAL BEND TIBIAL FLUTE NAIL Synthes Right 1 SYNTHES 04.005.530 5MM 4.3MM 40MM LOCK SELF TAP BLUNT TIP 2 LEAD TIBIAL T25 FULL - [id number] [place] SYNTHES 04.005.530 5MM 4.3MM 40MM LOCK SELF TAP BLUNT TIP 2 LEAD TIBIAL T25 FULL Synthes Right 1 SYNTHES 04.015.555 5MM 8MM 65MM 2 CORE SELF TAP LOCK STARDRIVE TIBIAL T25 FULL - [id number] Screw SYNTHES 04.015.555 5MM 8MM 65MM 2 CORE SELF TAP LOCK STARDRIVE TIBIAL T25 FULL Synthes Right 1 SYNTHES 04.015.560 5MM 8MM 70MM 2 CORE SELF TAP LOCK STARDRIVE TIBIAL T25 FULL - [id number] Screw SYNTHES 04.015.560 5MM 8MM 70MM 2 CORE SELF TAP LOCK STARDRIVE TIBIAL T25 FULL Synthes Right 1 SYNTHES 04.015.575 5MM 8MM 85MM 2 CORE SELF TAP LOCK STARDRIVE TIBIAL T25 FULL - [id number] Screw SYNTHES 04.015.575 5MM 8MM 85MM 2 CORE SELF TAP LOCK STARDRIVE TIBIAL T25 FULL Synthes Right 1 SYNTHES 04.005.522 5MM 4.3MM 32MM LOCK SELF TAP BLUNT TIP 2 LEAD TIBIAL T25 FULL - [id number] [place] SYNTHES 04.005.522 5MM 4.3MM 32MM LOCK SELF TAP BLUNT TIP 2 LEAD TIBIAL T25 FULL Synthes Right 1 SYNTHES 04.005.528 5MM 4.3MM 38MM LOCK SELF TAP BLUNT TIP 2 LEAD TIBIAL T25 FULL - [id number] [place] SYNTHES 04.005.528 5MM 4.3MM 38MM LOCK SELF TAP BLUNT TIP 2 LEAD TIBIAL T25 FULL Synthes Right 1 Blood/Blood Products Transfused: none mls Complications: None Condition on Discharge from the operating room was stable Rosendo Mena MD Date: 06/12/2018 Time: 12:02 PM Cosigned by Flash Magaña MD at 06/13/2018 10:11 AM TRIMMER BUFFING WHEEL MER BUFFING WHEEL MER BUFFING WHEEL * Plan of Care - Avril Ma [...] Goals: Summary: patient progressing toward set goals MER BUFFING WHEEL * Plan of Sil - Maritza Moss RN - 06/11/2018 2:50 PM TRIMMER BUFFING WHEEL Problem: Health Behavior: Goal: Understanding of discharge [...] Admit to 6493A, pain control. Summary: Progressing MER BUFFING WHEEL * Op Note - Flash Magaña MD - 06/11/2018 2:28 PM CST Date of Surgery: 06/12/2018 INDICATIONS: Mr. Jain is a 48 y.o.-year-old [...] fixation, intramedullary nailing SURGEON: Flash Magaña MD COMMODITY INDUSTRY ANALYST: Narciso Friedman MD, Nito Mena MD ANESTHESIA: general IV FLUIDS AND URINE: See anesthesia record. ESTIMATED BLOOD LOSS: 100 mL. IMPLANTS: synthes 3.5 medial proximal tibia LCP, synthes tibia EX intramedullary nail ([id number] mm) with 4 proximal and 2 distal [...] well. A synthes EX tibial nail size [id number] was then selected and brought onto the field and then seated into the tibia with care not to countersink the nail excessively while achieving optimal proximal fixation . ??We then confirmed the fracture alignment which was maintained in acceptable position. Attention was then turned distally as perfect [place] technique was utilized to place 2 distal [...] the deep layers closed with #1 vicryl [id number]-[id number] interrupted sutures. 2-0 monocryl was used for [...] team; if possible, we would prefer aspirin. MER BUFFING WHEEL documented in this encounter Plan of Treatment Pending Results Name Type Priority Associated Diagnoses Date /Time Type and screen Lab STAT 9 2:19 AM TRIMMER BUFFING WHEEL Type and screen Lab STAT 9 2:19 AM TRIMMER BUFFING WHEEL Scheduled Orders Name Type Priority Associated Diagnoses [...] CBC WITHOUT DIFFERENTIAL Routine 06/13/2018 8:43 PM TRIMMER BUFFING WHEEL BASIC METABOLIC PANEL Routine 06/13/2018 8:43 PM TRIMMER BUFFING WHEEL CBC WITHOUT DIFFERENTIAL Routine 06/12/2018 9:05 PM TRIMMER BUFFING WHEEL BASIC METABOLIC PANEL Routine 06/12/2018 9:05 PM TRIMMER BUFFING WHEEL XR TIBIA FIBULA RIGHT2 VIEWS IP Routine 06/12/2018 11:51 AM TRIMMER BUFFING WHEEL FL FLUOROSCOPY < 1 HOUR IP Routine 06/12/2018 11:49 AM TRIMMER BUFFING WHEEL OPEN REDUCTION INTERNAL FIXATION TIBIA - PROXIMAL - SYNTHES 06/12/2018 8:29 AM TRIMMER BUFFING WHEEL Closed displaced oblique fracture of shaft of right tibia, initial encounter INTRAMEDULLARY NAIL - TIBIAL 06/12/2018 8:29 AM TRIMMER BUFFING WHEEL Closed displaced oblique fracture of shaft of right tibia, initial encounter TYPE AND SCREEN STAT 06/12/2018 2:[address] BODY OUTSIDE CONSULT ED Urgent/IP Urgent 06/11/2018 10:23 PM TRIMMER BUFFING WHEEL XR TRANSFER OF OUTSIDE FILMS Routine 06/11/2018 10:21 PM TRIMMER BUFFING WHEEL XR TRANSFER OF OUTSIDE FILMS Routine 06/11/2018 10:20 PM TRIMMER BUFFING WHEEL XR TRANSFER OF OUTSIDE FILMS Routine 06/11/2018 10:19 PM TRIMMER BUFFING WHEEL XR KNEE RIGHT 1 OR 2 VIEWS ED Urgent/IP Urgent 06/11/2018 8:11 PM TRIMMER BUFFING WHEEL XR TIBIA FIBULA RIGHT2 VIEWS ED Urgent/IP Urgent 06/11/2018 8:11 PM TRIMMER BUFFING WHEEL XR ANKLE RIGHT 3 OR MORE VIEWS ED Urgent/IP Urgent 06/11/2018 8:11 PM [employer] ANTIBODY IDENTIFICATION After X-Ray 06/11/2018 6:12 PM [employer] URINALYSIS AND REFLEX TO MICROSCOPIC AND CULTURE Routine 06/11/2018 4:46 PM [employer] URINALYSIS, MICROSCOPIC ONLY Routine 06/11/2018 4:46 PM [employer] URINE CULTURE Routine Gen Lab 06/11/2018 4:46 PM [employer] DIFFERENTIAL AUTO STAT 06/11/2018 4:3 5 PM [employer] B K ANTIGEN TYPE Timed 06/11/2018 4:35 PM [employer] CBC WITH AUTO DIFFERENTIAL STAT 06/11/2018 4:35 PM [employer] APTT STAT 06/11/2018 4:35 PM [employer] PROTIME-INR STAT 06/11/2018 4:35 PM [employer] TYPE AND SCREEN Timed 06/11/2018 4:35 PM [employer] CARBAMAZEPINE LEVEL, TOTAL Timed 06/11/2018 4:35 PM [employer] BASIC METABOLIC PANEL Timed 06/11/2018 4:35 PM [employer] PREPARE RBC Timed 06/11/2018 4:22 PM [employer] documented in this encounter Results * (ABNORMAL) CBC without differential (06/15/2018 12:44 AM CDT) WBC 7.8 3.8 - 9.9 K/cumm [facility] Hgb 10.2(L) 13.0 - 17.5 g/dL [facility] Hct 30.6(L) 38.9 - 50.3 % [facility] Plt 197 150 - 400 K/cumm [facility] MPV 9.8 9.1 - 12.3 fL [facility] RBC 3.28(L) 4.30 - 5.80 M/cumm [facility] MCV 93.3 81.3 - 96.4 fL [facility] MCH 31.1 27.1 - 33.3 pg [facility] MCHC 33.3 32.3 - 35.7 g/dL [facility] RDW CV 12.2 11.1 - 14.9 % [facility] RDW SD 41.8 35.7 - 48.1 fL [facility] NRBC abs 0.00 0.00 - 0.01 K/cumm [facility] Blood specimen (specimen) 06/15/2018 12:44 AM CDT 06/15/2018 1:22 AM CDT Narrative [facility] - 06/15/2018 1:33 AM CDT Flash Magaña MD LAB BLOOD ORDERABL ES Final Result [facility] Department [place] [address] * (ABNORMAL) Basic metabolic panel (06/15/2018 12:44 AM CDT) Sodium 137 135 - 145 mmol/L [facility] Potassium, pl 4.2 3.3 - 4.9 mmol/L [facility] Chloride 101 97 - 110 mmol/L [facility] CO2 29 22 - 32 mmol/L [facility] Anion gap 7 2 - 15 mmol/L [facility] BUN 12 8 - 25 mg/dL [facility] Creatinine 0.78(L) 0.80 - 1.30 mg/dL [facility] Glucose 131 70 - 199 mg/dL [facility] Comment: Interpretive Data Fasting glucose >/= [...] 2017. Calcium 8.5 8.5 - 10.3 mg/dL [facility] Blood specimen (specimen) 06/15/2018 12:44 AM CDT 06/15/2018 1:22 AM CDT Narrative [facility] - 06/15/2018 1:56 AM CDT Flash Magaña MD LAB BLOOD ORDERABL ES Final Result [facility] Department [place] [address] * (ABNORMAL) CBC without differential (06/13/2018 8:43 PM [employer]) [facility] WBC 8.1 3.8 - 9.9 K/cumm [facility] Hgb 10.8(L) 13.0 - 17.5 g/dL [facility] Hct 32.3(L) 38.9 - 50.3 % [facility] Plt 180 150 - 400 K/cumm [facility] MPV 9.4 9.1 - 12.3 fL [facility] RBC 3.52(L) 4.30 - 5.80 M/cumm [facility] MCV 91.8 81.3 - 96.4 fL [facility] MCH 30.7 27.1 - 33.3 pg [facility] MCHC 33.4 32.3 - 35.7 g/dL [facility] RDW CV 12.6 11.1 - 14.9 % [facility] RDW SD 42.1 35.7 - 48.1 fL [facility] NRBC abs 0.00 0.00 - 0.01 K/cumm [facility] Blood specimen (specimen) 06/13/2018 8:43 PM [employer] 06/13/2018 8:59 PM [employer] Narrative [facility] - 06/13/2018 9:07 PM [employer] Flash Magaña MD LAB BLOOD ORDERABL ES Final Result [facility] Department [place] [address] * Basic metabolic panel (06/13/2018 8:43 PM [employer]) Pathologist [facility] Sodium 139 135 - 145 mmol/L [facility] Potassium, pl 4.0 3.3 - 4.9 mmol/L [facility] Chloride 100 97 - 110 mmol/L [facility] CO2 30 22 - 32 mmol/L [facility] Anion gap 9 2 - 15 mmol/L [facility] BUN 8 8 - 25 mg/dL [facility] Creatinine 0.80 0.80 - 1.30 mg/dL [facility] Glucose 138 70 - 199 mg/dL [facility] Comment: Interpretive Data Fasting glucose >/= [...] 2017. Calcium 8.6 8.5 - 10.3 mg/dL [facility] Blood specimen (specimen) 06/13/2018 8:43 PM [employer] 06/13/2018 8:59 PM [employer] Narrative [facility] - 06/13/2018 9:23 PM [employer] Flash Magaña MD LAB BLOOD ORDERABL ES Final Result [facility] Department [place] [address] * (ABNORMAL) CBC without differential (06/12/2018 9:05 PM [employer]) Pathologist [facility] WBC 5.6 3.8 - 9.9 K/cumm [facility] Hgb 11.3(L) 13.0 - 17.5 g/dL [facility] Hct 34.5(L) 38.9 - 50.3 % [facility] Plt 166 150 - 400 K/cumm [facility] MPV 9.8 9.1 - 12.3 fL [facility] RBC 3.72(L) 4.30 - 5.80 M/cumm [facility] MCV 92.7 81.3 - 96.4 fL [facility] MCH 30.4 27.1 - 33.3 pg [facility] MCHC 32.8 32.3 - 35.7 g/dL [facility] RDW CV 12.7 11.1 - 14.9 % [facility] RDW SD 43.1 35.7 - 48.1 fL [facility] NRBC abs 0.00 0.00 - 0.01 K/cumm [facility] Blood specimen (specimen) 06/12/2018 9:05 PM [employer] 06/12/2018 9:43 PM [employer] Narrative [facility] - 06/12/2018 9:53 PM [employer] [facility] Mario Magaña MD LAB BLOOD ORDERABL ES Final Result [facility] Department [place] [address] * Basic metabolic panel (06/12/2018 9:05 PM [employer]) Sodium 140 135 - 145 mmol/L [facility] Potassium, pl 4.1 3.3 - 4.9 mmol/L [facility] Chloride 103 97 - 110 mmol/L [facility] CO2 31 22 - 32 mmol/L [facility] Anion gap 6 2 - 15 mmol/L [facility] BUN 10 8 - 25 mg/dL [facility] Creatinine 1.00 0.80 - 1.30 mg/dL [facility] Glucose 126 70 - 199 mg/dL [facility] Comment: Interpretive Data Fasting glucose >/= [...] 2017. Calcium 8.9 8.5 - 10.3 mg/dL [facility] Blood specimen (specimen) 06/12/2018 9:05 PM [employer] 06/12/2018 9:43 PM [employer] N[facility]ative [facility] - 06/12/2018 10:12 PM [employer] Flash Magaña MD LAB BLOOD ORDERABL ES Final Result [facility] Department [place] [address] * XR Tibia Fibula Right 2 Views (06/12/2018 11:51 AM [employer]) Anatomical Region Laterality Modality Lower Extremities, Lower Leg Right Com puted Radiography 06/12/2018 11:5 3 AM [employer] Impressions 06/12/2018 11:53 AM [employer] 1. ??Interval open reduction, internal fixation, and intramedullary nailing of a comminuted right proximal tibial shaft fracture with near-anatomic alignment. 2. ??Mildly distracted right proximal fibular shaft fracture. Electronically signed by: Nicola Faustin M.D. Narrative 06/12/2018 11:53 AM [employer] EXAMINATION: Right tibia and fibula minimum 2 [...] Fluoroscopy < 1 Hour (06/12/2018 11:49 AM [employer]) Narrative [facility] - 06/12/2018 11:50 AM [employer] The images from this study are not interpreted by Radiology. ??Please refer to the physician's procedure / OR operative note. us Flash Magaña MD IMG FLUOROSCOPY NC OCEDURES Final Result [facility] * CT Body Outside Consult (06/11/2018 10:23 PM [employer]) Anatomical Region Laterality Modality Body N/A Computed Tomogra phy 06/12/2018 11:5 3 AM [employer] Impressions 06/12/2018 12:32 PM [employer] 1. ??Partly reduced comminuted extra-articular right proximal [...] images may or may not represent the [place] source data set and thus may contain changes that may lower the accuracy of this second-opinion interpretation. Dictated by: Mayito Florence M.D. Electronically signed by: Lobo Morales M.D. Narrative 06/12/2018 12:32 PM [employer] EXAMINATION: RADIOLOGY CONSULTATION ON OUTSIDE IMAGING STUDY STUDY INITIALLY PERFORMED: 06/11/2018 at [facility]. TYPE OF STUDY: Multiple CT images of [...] IMAGING STUDY STUDY INITIALLY PERFORMED: 06/11/2018 at [facility]. TYPE OF STUDY: Multiple CT images of [...] images may or may not represent the [place] source data set and thus may contain changes that may lower the accuracy of this second-opinion interpretation. Dictated by: Mayito Florence M.D. Electronically signed by: Lobo Morales M.D. MD CHEPE Wyatt Jr. CT PROCEDURES F inal Result * XR Outside Reference (06/11/2018 10:21 PM [employer]) Impressions [facility] - 06/11/2018 10:21 PM [employer] These images are for Reference purposes only and have not been reviewed by [facility] Radiology. ??There will be no report generated by a [facility] Radiologist. Narrative [facility] - 06/11/2018 10:21 PM [employer] EXAMINATION: ??Images For Reference Purposes Only MD CHEPE Wyatt Jr. XR PROCEDURES F inal Result [facility] * XR Outside Reference (06/11/2018 10:20 PM [employer]) Impressions [facility] - 06/11/2018 10:20 PM [employer] These images are for Reference purposes only and have not been reviewed by [facility] Radiology. ??There will be no report generated by a [facility] Radiologist. Narrative [facility] - 06/11/2018 10:20 PM [employer] EXAMINATION: ??Images For Reference Purposes Only Rosendo Sapp Jr., MD IMG XR PROCEDURES F inal Result Performing Organization Address [facility] de Phone Number [email or web address] * XR Outside Reference (06/11/2018 10:19 PM [employer]) Impressions [facility] - 06/11/2018 10:19 PM [employer] These images are for Reference purposes only and have not been reviewed by [facility] Radiology. ??There will be no report generated by a [facility] Radiologist. Narrative [facility] - 06/11/2018 10:19 PM [employer] EXAMINATION: ??Images For Reference Purposes Only Rosendo Sapp Jr., MD IMG XR PROCEDURES F inal Result Performing Organization Address [facility] Phone Number [email or web address] * XR Knee Right 1 or 2 Views (06/11/2018 8:11 PM [employer]) Anatomical Region Laterality Modality Lower Extremities, Knee Right Computed Radiography 06/12/2018 6:24 AM [employer] Impressions 06/12/2018 6:24 AM [employer] 1. ??Mildly displaced and angulated proximal right fibular and comminuted proximal right tibia fractures. Electronically signed by: Angus Teresa M.D. Narrative 06/12/2018 6:24 AM [employer] EXAMINATION: 1. ??Right knee one or 2 [...] involving the right leg. Procedure Note Angus eTresa MD - 06/12/2018 EXAMINATION: 1. Right knee [...] by: Angus Teresa M.D. Flash Magaña MD IM XR PROCEDURES Final Result * XR Tibia Fibula Right 2 Views (06/11/2018 8:11 PM [employer]) Anatomical Region Laterality Modality Lower Extremities, Lower Leg Right Com puted Radiography 06/12/2018 6:24 AM [employer] Impressions 06/12/2018 6:24 AM [employer] 1. ??Mildly displaced and angulated proximal right fibular and comminuted proximal right tibia fractures. Electronically signed by: Angus Teresa M.D. Narrative 06/12/2018 6:24 AM [employer] EXAMINATION: 1. ??Right knee one or 2 [...] fractures. Electronically signed by: Angus Teresa M.D. us Flash Magaña MD IMG XR PROCEDURES Final Result * XR Ankle Right 3 or More Views (06/11/2018 8:11 PM [employer]) Anatomical Region Laterality Modality Lower Extremities, Ankle Right Compute d Radiography 06/12/2018 6:24 AM [employer] Impressions 06/12/2018 6:24 AM [employer] 1. ??Mildly displaced and angulated proximal right fibular and comminuted proximal right tibia fractures. Electronically signed by: Angus Teresa M.D. Narrative 06/12/2018 6:24 AM [employer] EXAMINATION: 1. ??Right knee one or 2 [...] MD IMG XR PROCEDURES Final Result * Antibody identification (06/11/2018 6:12 PM [employer]) Antibody ID 1 Anti-K [facility] Blood specimen (specimen) 06/11/2018 6:12 PM [employer] 06/11/2018 6:12 PM [employer] Narrative [facility] - 06/11/2018 6:57 PM [employer] Felicia Quiñones NP LAB BLOOD BANK TEST ORDERA BLES Final Result [facility] Department [place] [address] * (ABNORMAL) Urine culture Urine (06/11/2018 4:46 PM [employer]) Report Final Report: Greater than or equal to 100,000 colonies/mL of Klebsiella pneumoniae (.) [facility] Organism KLEBSIELLA PNEUMONIAE [facility] Urine 06/11/2018 4:46 PM [employer] 06/11/2018 6:20 PM [employer] Narrative [facility] - 06/12/2018 12:44 PM [employer] Urine culture reflexed based upon urinalysis results. Testing performed by [facility] ([phone]) Organism Antibiotic Method Susceptibility Klebsiella pneumoniae Ampicillin [...] GENERAL ORDERABLES Final Result Performing Organization Address [facility] [place] [address] * (ABNORMAL) Urinalysis, microscopic only (06/11/2018 4:46 PM [employer]) WBC, ur 21-50(A) 0 - 5 /HPF [facility] RBC, ur 0-2 0 - 2 /HPF [facility] Epithelial cells, squamous, ur 1-5 0 - 5 /HPF [facility] Bacteria, ur 4+(A) [facility] Mucous, ur Present(A) [facility] Urine 06/11/2018 4:46 PM [employer] 06/11/2018 5:25 PM [employer] Narrative [facility] - 06/11/2018 6:05 PM [employer] Felicia Quiñones [employer] LAB URINE ORDERABLES Final Result Performing Organization Address [facility] de Phone Number [facility] [place] [address] * (ABNORMAL) Urinalysis reflex to microscopic and culture Urine (06/11/2018 4:46 PM [employer]) Color, ur Yellow Yellow [facility] Clarity, ur Cloudy(A) Clear [facility] Specific gravity, ur 1.020 1.010 - 1.025 [facility] pH, urine 6.0 [facility] Protein, ur ql 1+(A) Negative [facility] Glucose, ur ql Negative Negative [facility] Ketones, ur Negative Negative [facility] Bilirubin, ur Negative Negative [facility] Blood, ur Negative Negative [facility] Comment:Ascorbic acid identi fied in urine; possible false negative blood result. A microscopic exam will be added to identify RBCs. Urobilinogen, ur <2.0 <2.0 mg/dL [facility] Nitrite, ur Positive(A) Negative [facility] Leukocyte esterase, ur 2+(A) Negative [facility] Urine 06/11/2018 4:46 PM [employer] 06/11/2018 5:25 PM [employer] Narrative [facility] - 06/11/2018 5:49 PM [employer] ?? Urine pH is affected by diet, medications, systemic acid-base disturbances, and renal tubular function. ??pH may affect urinary stone formation. ??For example, urine pH below 6.0 may help reduce the tendency for calcium phosphate stones and pH greater than 6.0 may reduce the tendency for uric acid stone formation. Source: [facility] [employer]. Last revised 04-17-2017 Felicia Quiñones NP LAB MICROBIOLOGY - GENERAL ORDERABLES Final Result Performing Organization Address [facility] Co de Phone Number [facility] Department [place] [address] * B K Antigen Type (06/11/2018 4:35 PM [employer]) Pathologist [facility] RBC K ag Negative [facility] Blood specimen (specimen) 06/11/2018 4:35 PM [employer] 06/11/2018 5:28 PM [employer] Narrative [facility] - 06/11/2018 7:45 PM [employer] Flash Magaña MD LAB BLOOD ORDERABL ES Final Result Performing Organization Address [facility] Co de Phone Number [facility] Department [place] [address] * (ABNORMAL) Basic metabolic panel (06/11/2018 4:35 PM [employer]) Pathologist [facility] Sodium 139 135 - 145 mmol/L [facility] Potassium, pl 4.6 3.3 - 4.9 mmol/L [facility] Comment:Hemolyzed; (++); pot assium value may be falsely elevated by as much as 0.3 - 0.5 mmol/L. Suggest redraw and reanalysis. Chloride 106 97 - 110 mmol/L [facility] CO2 25 22 - 32 mmol/L [facility] Anion gap 8 2 - 15 mmol/L [facility] BUN 10 8 - 25 mg/dL [facility] Creatinine 0.71(L) 0.80 - 1.30 mg/dL [facility] Glucose 96 70 - 199 mg/dL [facility] Comment: Interpretive Data Fasting glucose >/= [...] 2017. Calcium 8.7 8.5 - 10.3 mg/dL [facility] Blood specimen (specimen) 06/11/2018 4:35 PM [employer] 06/11/2018 5:32 PM [employer] Narrative [facility] - 06/11/2018 6:22 PM [employer] Flash Magaña MD LAB BLOOD ORDERABL ES Final Result [facility] Department [place] [address] * (ABNORMAL) Differential, auto (06/11/2018 4:35 PM [employer]) Neutrophil abs 4.4 1.7 - 6.5 K/cumm [facility] Imm gran abs 0.0 0.0 - 0.1 K/cumm [facility] Lymphocyte abs 0.6(L) 0.8 - 3.3 K/cumm [facility] Monocyte abs 0.4 0.2 - 0.8 K/cumm [facility] Eosinophil abs 0.0 0.0 - 0.5 K/cumm [facility] Basophil abs 0.0 0.0 - 0.1 K/cumm [facility] Neutrophil pct 80.4 % [facility] Comment: Interpretive Data Percent cell count reference ranges are not reported, since discordance with absolute values may lead to misinterpretation of CBC data. Current Interpretive Data was last revised on 2017. Imm gran pct 0.7 % [facility] Comment: Interpretive Data Percent cell count reference ranges are not reported, since discordance with absolute values may lead to misinterpretation of CBC data. Current Interpretive Data was last revised on 2017. Lymphocyte pct 10.9 % [facility] Comment: Interpretive Data Percent cell count reference ranges are not reported, since discordance with absolute values may lead to misinterpretation of CBC data. Current Interpretive Data was last revised on 2017. Monocyte pct 7.4 % [facility] Comment: Interpretive Data Percent cell count reference ranges are not reported, since discordance with absolute values may lead to misinterpretation of CBC data. Current Interpretive Data was last revised on 2017. Eosinophil pct 0.4 % [facility] Comment: Interpretive Data Percent cell count reference ranges are not reported, since discordance with absolute values may lead to misinterpretation of CBC data. Current Interpretive Data was last revised on 2017. Basophil pct 0.2 % [facility] Comment: Interpretive Data Percent cell count reference ranges are not reported, since discordance with absolute values may lead to misinterpretation of CBC data. Current Interpretive Data was last revised on 2017. Blood specimen (specimen) 06/11/2018 4:35 PM [employer] 06/11/2018 5:36 PM [employer]EL Narrative [facility] - 06/11/2018 5:45 PM [employer]EL us Felicia Quiñones NP LAB BLOOD ORDERABLES Final Result [facility] Department [place] [address] * Carbamazepine level, total (06/11/2018 4:35 PM TR[employer]MER [employer] WHEEL) [facility] Carbamazepine 7.2 3.0 - 12.0 mcg/mL [facility] Comment: Interpretive Data Therapeutic or Toxic effect of anticonvulsant drugs may occur at different concentrations in different patients and the correlation between dose and clinical effect must be evaluated individually. Current interpretive data was last revised on 13. Blood specimen (specimen) 06/11/2018 4:35 PM [employer]EL 06/11/2018 5:32 PM [employer]EL Narrative [facility] - 06/11/2018 6:22 PM [employer]EL Felicia Quiñones NP LAB BLOOD ORDERABLES Final Result Performing Organization Address [facility] de Phone Number [facility] [place] [address] * (ABNORMAL) Type and screen (06/11/2018 4:35 PM [employer] WHEEL) [facility] Arnel, indirect Positive(A) [facility] ABO Rh O Positive [facility] Blood specimen (specimen) 06/11/2018 4:35 PM [employer]EL 06/11/2018 5:28 PM [employer] WHEEL Narrative [facility] - 06/11/2018 6:12 PM [employer]EL Has the patient had Daratumumab (Darzalex) in the past 6 months?->Unknown Felicia Quiñones NP LAB BLOOD BANK TEST ORDERA BLES Final Result Performing Organization Address [facility] de Phone Number [facility] Department [place] [address] * (ABNORMAL) CBC with auto differential (06/11/2018 4:35 PM TR[employer] WHEEL) [facility] WBC 5.5 3.8 - 9.9 K/cumm [facility] Hgb 11.0(L) 13.0 - 17.5 g/dL [facility] Hct 33.0(L) 38.9 - 50.3 % [facility] Plt 189 150 - 400 K/cumm [facility] MPV 10.4 9.1 - 12.3 fL [facility] RBC 3.64(L) 4.30 - 5.80 M/cumm [facility] MCV 90.7 81.3 - 96.4 fL [facility] MCH 30.2 27.1 - 33.3 pg [facility] MCHC 33.3 32.3 - 35.7 g/dL [facility] RDW CV 12.6 11.1 - 14.9 % [facility] RDW SD 41.6 35.7 - 48.1 fL [facility] [facility] NRBC abs 0.00 0.00 - 0.01 K/cumm [facility] Blood specimen (specimen) 06/11/2018 4:35 PM TRIMMER BUFFING WHEEL 06/11/2018 5:36 PM TRIMMER BUFFING WHEEL Narrative [facility] - 06/11/2018 5:45 PM TRIMMER BUFFING WHEEL us Felicia Quiñones LEATHER SPRAYER LAB BLOOD ORDERABLES Final Result Performing Organization Address [facility] Co de Phone Number [facility] [place] [address] * aPTT (06/11/2018 4:35 PM TRIMMER BUFFING WHEEL) aPTT 28.3 25.0 - 37.0 sec [facility] Comment: Interpretive Data Therapeutic heparin range:60.0 - 94.0 sec based on correlation with therapeutic heparin activity range of 0.3 -0.7 Units/mL. Current interpretive data was last revised on 2011. Blood specimen (specimen) 06/11/2018 4:35 PM TRIMMER BUFFING WHEEL 06/11/2018 5:24 PM TRIMMER BUFFING WHEEL Narrative [facility] - 06/11/2018 5:59 PM TRIMMER BUFFING WHEEL us Felicia Quiñones NP LAB BLOOD ORDERABLES Final Result Performing Organization Address [facility] Co de Phone Number [facility] [place] [place] [address] * Protime-INR (06/11/2018 4:35 PM TRIMMER BUFFING WHEEL) PT 12.8 8.5 - 13.0 sec [facility] INR 1.19 0.80 - 1.[address] [facility] Comment: Interpretive Data Inpatient therapeutic ranges* Atrial fibrillation ?2.0-3.0 INR Venous thrombo-embolism ?2.0-3.0 INR Bioprosthetic heart valve ?* Mechanical heart valve, bileaflet or tilting disk,aortic position ? 2.0-3.0 INR All other,or bileaflet or tilting disk, in mitral position ? 2.5-3.5 INR *See the pharmacy resource directory (PHRED) for an updated copy of the Tool Book at [email or web address] Current Interpretive Data was last revised 2011. Blood specimen (specimen) 06/11/2018 4:35 PM TRIMMER BUFFING WHEEL 06/11/2018 5:24 PM TRIMMER BUFFING WHEEL Narrative [facility] - 06/11/2018 5:59 PM TRIMMER BUFFING WHEEL us Felicia Quiñones NP LAB BLOOD ORDERABLES Final Result [facility] Department [place] [address] * Prepare RBC: 2 Units (06/11/2018 4:22 PM TRIMMER BUFFING WHEEL) Product code [id number] [facility] Unit Number [id number] 5-A [facility] Product Blood Type OPOS [facility] Dispense Status RETURNED [facility] Product code [id number] [facility] Unit Number [id number] 3-O [facility] Product Blood Type OPOS [facility] Dispense Status RETURNED [facility] Blood specimen (specimen) 06/11/2018 4:22 PM TRIMMER BUFFING WHEEL 06/11/2018 4:22 PM TRIMMER BUFFING WHEEL Narrative [facility] - 06/15/2018 1:00 AM CDT Other indication->preop Are special requirements needed? (all products are leukoreduced)->No Date required:-[id number] LRRBC # of [id number] Reasons:-Other (specify)} us Felicia Quiñones NP BLOOD BANK PRODUCT ORDERAB LES Final Result [facility] Department [place] [address] documented in this encounter Visit Diagnoses Diagnosis Closed displaced oblique fracture of shaft of right tibia- Primary Closed displaced oblique fracture of shaft of right tibia, initial encounter Displaced transverse fracture of shaft of right fibula, initial encounter for closed fracture Closed displaced oblique fracture of shaft of right tibia, initial encounter documented in this encounter Administered [...] Given 06/15/2018 10:25 PM CDT 800 mg cyclobenzaprine (FLEXERIL) tablet 10 mg 10 mg, [...] oral, Every 2 weeks, First dose on 06/14/18 at 0000, Pour contents of packet into 3-4 oz of cool water, stir to dissolve and administer immediately., Indications: Urinary Tract/Genitourinary InfectionIndications:Urinary Tract/Genitourinary Infection Given 06/14/2018 12:29 AM TRIMMER BUFFING WHEEL 3 g gabapentin (NEURONTIN) capsule 300 mg 300 mg, oral, 3 times daily, First dose on Fri06/16/18 at 2300 Given 06/18/2018 4:04 PM CDT 300 mg Given 06/18/2018 9:19 AM CDT 300 mg Given 06/17/2018 9:20 PM CDT 300 mg HYDROcodone-acetaminophen (NORCO) 5-325 mg per tablet 2 [...] PM CDT Given 06/16/2018 2:45 PM CDT ibuprofen (ADVIL,MOTRIN) tablet 600 mg 600 mg, oral, Every 6 hours PRN, 1st line for pain, Starting on Fri06/16/18 at 2227 methocarbamol (ROBAXIN) tablet 750 mg 750 mg, oral, 3 times daily, First dose on Fri06/14/18 at 0900 Given 06/18/2018 4:04 PM CDT 750 mg Given 06/18/2018 9:19 AM CDT 750 mg Given 06/17/2018 9:13 PM CDT 750 mg ondansetron (ZOFRAN) injection 4 mg 4 mg, intravenous, Administer over 2 Minutes, Every 6 hours PRN, nausea, vomiting, if not tolerating PO, Starting on Alyssa 06/11/18 at 1609, Indications: nausea and vomitingIndications:nausea and vomiting Given 06/12/2018 11:11 AM TRIMMER BUFFING WHEEL 4 mg ondansetron ODT (ZOFRAN-ODT) disintegrating tablet 4 mg 4 mg, oral, Every 6 hours PRN, nausea, vomiting, Starting on Alyssa 06/11/18 at 1609, Indications: nausea and vomitingIndications:nausea and vomiting psyllium (aspartame) SF (METAMUCIL SF) 3.4 gram [...] 2 table ts Given 06/13/2018 2:30 AM TRIMMER BUFFING WHEEL 2 tablets sodium chloride 0.9 % irrigation As needed, Starting on Fri06/12/18 at 0915, Intra-Op Given 06/12/2018 8:00 AM TRIMMER BUFFING WHEEL 1,000 mL Other (Comment) sterile water irrigation As needed, Starting on Fri06/12/18 at 0800, Intra-Op Given 06/12/2018 8:00 AM TRIMMER BUFFING WHEEL 1,000 mL Other (Comment) documented in this encounter Discontinued [...] at 1645 0754 (Given - Provider: Esteban Castro, DANNA) 0831 (Given - Provider: Esteban Castro RN) [...] breakfast, First dose (after last reorder) on Fri06/15/18 at 0730, Drug Name: ESOMEPRAZOLE, Form: capsule, [...] Patient/family refused) 0831 (Given - Provider: Esteban Castro, DANNA)1646 (Given - Provider: Esteban Castro RN)2120 (Given - Provider: Juana Diamond RN) 0919 (Given - Provider: Franklin Hood, DANNA)1604 (Given - Provider: Franklin Hood, DANNA) methocarbamol (ROBAXIN) tablet 750 mg 750 mg, oral, 3 times daily, First dose on 06/14/18 at 0900 0754 (Given - Provider: Esteban Castro, DANNA)1444 (Given - Provider: Esteban Castro RN)2248 (Given - Provider: Claudia Rizo) 0831 (Given - Provider: Esteban Castro RN)1646 (Given - Provider: Esteban Castro, DANNA)2113 (Given - Provider: Juana Diamond, DANNA) 0919 (Given - Provider: Franklin Hood, DANNA)1604 (Given - Provider: Franklin Hood, RN) psyllium (aspartame) SF (METAMUCIL SF) 3.4 gram packet 1 packet 1 packet, oral, Daily, First dose on Alyssa 06/11/18 at 1645 0754 (Given - Provider: Esteban Castro RN) 0831 (Given - Provider: Esteban Castro RN) 0919 (Given - Provider: Franklin Hood, ADNNA) PRN Medication Order 06/16/2018 06/17/2018 06/18/2018 bisacodyl [...] Esteban Castro RN)1926 (Given - Provider: Esteban Castro, DANNA) 1308 (Given - Provider: Esteban Castro, DANNA)1837 (Given - Provider: Esteban Castro RN) HYDROcodone-acetaminophe n (NORCO) 5-325 mg per tablet 2 tablet 2 tablet, oral, Every 4 hours PRN, 1st line for pain, Starting on 06/14/18 at 1054, Indications: Pain 0304 (Given - Provider: Claudia Rizo)0646 (Given - Provider: Claudia Rizo)1036 (Given - Provider: Esteban Castro RN)1444 (Given - Provider: Esteban Castro RN)1833 (Given - Provider: Liat Alcala RN)2247 (Given - Provider: Claudia Rizo) 0456 (Given - Provider: Claudia Rizo)0831 (Given - Provider: Esteban Castro, DANNA)1303 (Given - Provider: Esteban Castro, DANNA)1646 (Given - Provider: Esteban Castro RN)2113 (Given - Provider: Juana Diamond, DANNA) 0114 (Given - Provider: Juana Diamond, DANNA)0524 (Given - Provider: Juana Diamond RN)0919 (Given - Provider: Franklin Hood, DANNA)1329 (Given - Provider: Franklin Hood, DANNA)1608 (Given - Provider: Franklin Hood, DANNA - Comment: approved by felicia VIDAL) hydrocortisone 2.5 % cream topical, Daily PRN, rash, Starting on 06/15/18 at 1250, Apply to affected area: back 0754 (Given - Provider: Esteban Castro RN)1445 (Given - Provider: Esteban Castro RN)1833 (Given - Provider: Liat Alcala RN) 1309 (Given - Provider: Esteban Castro RN) ibuprofen (ADVIL,MOTRIN) tablet 600 mg 600 mg, oral, Every 6 hours PRN, 1st line for pain, Starting on Fri06/16/18 at 2227 2257 [facility] Claudia Rizo) ondansetron (ZOFRAN) injection 4 mg(Linked Group 1) 4 mg, intravenous, Administer over 2 Minutes, Every 6 hours PRN, nausea, vomiting, if not tolerating PO, Starting on Alyssa 06/11/18 at 1609, Indications: nausea and vomiting ondansetron [...] Count Last Ordered Date First Ordered Date gabapentin (NEURONTIN) capsule 300 mg 1 03/2019 ibuprofen (ADVIL,MOTRIN) tablet 600 mg 1 hydrocortisone 2.5 % cream 1 06/15/2018 morphine injection 2 mg 2 06/15/201810/2018 calcium carbonate (TUMS) lee wable tablet 1,000 mg 1 06/14/2018 ESOMEPRAZOLE 40MG (JOHN Luis'S OWN SUPPLY) 1 06/14/2018 HYDROcodone-acetaminophen (N ORCO) 5-325 mg per tablet 2 tablet 1 06/14/2018 methocarbamol (ROBAXIN) tablet 750 mg 1 01/2019 NON FORMULARY (FOR INPATIENT USE) 1 019 bisacodyl (DULCOLAX) suppository 10 mg 1 cyclobenzaprine (FLEXERIL) tablet 10 mg 1 0 06/13/2018 HYDROmorphone (DILAUDID) injection 0.2 mg 2 06/13/2018 06/12/2018 ceFAZolin (ANCEF) 2000 mg/20 mL in sterile water (premix) 2,000 mg 1 06/12/2018 HYDROmorphone (DILAUDID) injection 0.5 mg 1 06/12/2018 Lactated Ringer's (LR) infusion 2 9 naloxone (NARCAN) 0.4 mg/mL injection 0.04-0.4 mg 1 06/12/2018 ondansetron (ZOFRAN) injection 4 mg 2 06/1206/11/2018 ascorbic acid (VITAMIN C) ta blet/chewable tablet 4,000 mg 1 06/11/2018 carBAMazepine XR (TEGretol X R) extended release tablet 800 mg 1 06/11/2018 cefTRIAXone (ROCEPHIN) 2000 mg/20 mL in sterile water (premix) 2,000 mg 1 06/11/2018 diphenhydrAMINE (BENADRYL) tab/cap 25 mg 1 06/11/2018 enoxaparin (LOVENOX) syringe 40 mg 1 2018 fosfomycin (MONUROL) packet 3 g 1 9 HYDROcodone-acetaminophen (N ORCO) 5-325 mg per tablet 1 tablet 1 06/11/2018 ondansetron ODT (ZOFRAN-ODT) disintegrating tablet 4 mg 1 06/11/[address] (PROTONIX) e xtended release tablet 40 mg 1 06/11/2018 psyllium (aspartame) SF (MET AMUCIL SF) 3.4 gram packet 1 packet 1 06/11/2018 senna-docusate (PERICOLACE) 8.6-50 mg per tablet 2 tablet 1 06/11/2018 sodium chloride 0.9% infusion 1 06/11/2018 Diet Count Last Ordered Date [...] 06/11/2018 documented in this encounter Care Teams Equities Trader Relationship Specialty Start Date End Date Jose Mo MD [address] [address] PCP - General 06/02/17 08/21/18 documented as of this encounter
--- NOTE | 2024-03-31 15:49 | PM.TDS ---
Transfer Discharge Sum: Prov Provider Date of admission: 03/21/24 23:21 Primary care physician: Jose Mo, MD Admitting clinician: Pedro Daniel MD Consults: 03/21/24 23:23 Consult to Physician Routine Comment: Consulting Provider: Isai Ortega train caller/MD group to consult: oncology Reason for consultation: new diagnosis lymphoma Has provider been notified: Yes 03/22/24 Consult to Physician Routine Comment: Spoke to Dr 03/22 1400 ([facility]) Consulting Provider: Pranav Garcia train caller/MD group to consult: GI Reason for consultation: colonoscopy for mass bx Has provider been notified: Yes Consult to Physician Routine Comment: Spoke to Dr office 03/22 1516 ([facility]) Consulting Provider: Isai Ortega train caller/ group to consult: oncology Reason for consultation: mesenteric lymphadenopathy Has provider been notified: Yes 03/23/24 14:06 Consult to Physician Routine Comment: Consulting Provider: Ja Sotomayor train caller/MD group to consult: surgery Reason for consultation: mass in distal ileum Has provider been notified: Yes Attending physician on discharge: Raphael Oneill Discharging clinician: Karishma Boggs Anticipated date of transfer: 03/23/24 Receiving physician/facility: Dr. Vibha Heath / [facility] DS: Admitting Diagnosis Discharge Date 03/23/24 Admitting Diagnosis urinary tract infection acute occlusion of mesenteric vein retroperitoneal lymphadenopathy hypertension hydronephrosis DS: Discharge Diagnosis Discharge Diagnosis (1) Urinary tract infection: Code(s): N39.0 - Urinary tract infection, site not specified Status: Acute (2) Acute occlusion of mesenteric vein: Code(s): K55.019 - Acute (reversible) ischemia of small intestine, extent unspecified Status: Acute (3) Retroperitoneal lymphadenopathy: Code(s): R59.0 - Localized enlarged lymph nodes Status: Acute (4) Hypertension: Code(s): I10 - Essential (primary) hypertension Status: Acute (5) Hydronephrosis, right: Code(s): N13.30 - Unspecified hydronephrosis Status: Acute Transfer Discharge Sum: Med Medications Active and Home Medications: Home Medications ascorbic acid (vitamin C) 1,000 mg tablet 1 g PO BID 08/13/21 [History Confirmed 03/22/24] carbamazepine 200 mg tablet,extended release,12 hr (Tegretol XR) 800 mg PO HS 08/13/21 [History Confirmed 03/22/24] psyllium husk 3.4 gram/5.4 gram oral powder (Metamucil) 1 tbsp PO DAILY 08/13/21 [History Confirmed 03/22/24] acetaminophen 325 mg tablet (Tylenol) 650 mg PO Q4H PRN Pain 10/27/23 [History Confirmed 03/22/24] calcium carbonate 500 mg-simethicone 20 mg chewable tablet 1 tablet PO PRN PRN Gastric Reflux 10/27/23 [History Confirmed 03/22/24] diphenhydramine HCl 25 mg capsule (Benadryl) 12.5 mg PO HS 10/27/23 [History Confirmed 03/22/24] famotidine 10 mg chewable tablet 10 mg PO PRN PRN REFLUX 10/27/23 [History Confirmed 03/22/24] furosemide 20 mg tablet 20 mg PO DAILY 10/27/23 [History Confirmed 03/22/24] ibuprofen 200 mg tablet (Advil) 200 mg PO Q6H PRN Pain 10/27/23 [History Confirmed 03/22/24] methenamine hippurate 1 gram tablet 1 g PO BID 10/27/23 [History Confirmed 03/22/24] esomeprazole magnesium 20 mg capsule,delayed release (Nexium) 20 mg PO DAILY 03/01/24 [History Confirmed 03/22/24] Transfer Discharge Sum: Hosp Hospital Course Hospital course: Angus Jain is a 53 year old male with past medical history of GERD presents to the hospital for dark urine. Not meeting sepsis criteria on admission. Urine sample was concerning for urinary tract infection and patient was started on IV antibiotics. Patient status post cystoscopy, right retrograde pyelography, right ureteral stent placement on 03/02/[address] Griffin. ED provider spoke with urology on-call who advised patient's urinalysis abnormalities is probably due to uretal stent irritation and has no concerns for admission from a urology standpoint. Urine culture was negative and antibiotics discontinued. Throughout admission patients remained hypertensive. Started on losartan [address] abdomen/pelvis was obtained and showed wall thickening of the terminal ileum with cecal wall edema, may reflect ileitis/colitis or primary malignancy at the terminal ileum and mesenteric lymphadenopathy with a large conglomerate central mesenteric janet mass that is overall increased in size, consistent with lymphoma or metastatic disease which appears to be occluding the superior mesenteric vein. Call made to IR in regards to the best way to biopsy the mass. Heme/onc consulted. Discussed imaging with radiology, Dr. Thomson who states a colonoscopy would likely be the better biopsy option as the mass at the ileo-cecal region. 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 Following the colonoscopy GI consulted surgery as there was concern that patient may require a right hemicolectomy. Surgery evaluated patientand were concerned that the large mesenteric mass was encasing the right ureter that has been stented, the superior mesenteric artery and multiple proximal branches, and is occluding the superior mesenteric vein. Given the size and extent of this mass, he would not be a surgical candidate at [place]. There is no signs of bowel ischemia at this time, but the mesenteric mass has progressed quickly in the past few weeks placing him at risk for extrinsic compression of the SMA at any time. Surgery then recommended acutely transferring the patient to a tertiary care facility. Call made to Dr. Ortega who states that patient could likely be transferred to [facility] for possible inpatient chemotherapy. [facility] accepted patient and he was transferred to that facility in a stable condition. Time Spent with Patient Time attestation: Total time spent providing and/or coordinating transfer services: Total time spent: Greater than 30 minutes Exam Narrative: AF HR 77 RR 13 Spo2 99 BP 130/62 General: male in no acute respiratory distress who is nontoxic appearing, lying semi recumbent in bed. HEENT: Normocephalic. Atraumatic. Extraocular movement intact. Sclera clear and anicteric. No facial asymmetry. Chest: Lungs are clear to auscultation bilaterally. No wheezes or crackles. CV: Heart was regular rate and rhythm. S1/S2. No murmurs, gallops, or rubs. Abd: Abdomen was soft. Nontender. Nondistended. Positive bowel sounds. No organomegaly or masses. Ext: No clubbing, cyanosis, or edema. 2+ DP pulses bilaterally. Neuro: Patient is alert and oriented x4. Cranial nerves 2-12 are intact. Speech is clear. DS: Data Data Completed and Pending Completed studies during hospitalization: Chest XR abdomen/pelvis CT Pending studies at discharge: Pending at discharge 03/22/24 19:16 Surgical [PTH] Routine 03/23/24 13:43 Surgical [PTH] Routine
== END 2024-03-24 01:04 | disposition short-term general hospital (02) ==
LOC: ANHED 23:30 → ANH3MED 23:45
PROVIDERS: Internal Medicine Gastroenterology; Internal Medicine Hematology & Oncology; Admitting Provider Internal Medicine; Emergency Provider Registered Nurse; PCP Internal Medicine; Visit Provider Student in an Organized Health Care Education/Training Program
PROC: 0DJD8ZZ Inspection of Lower Intestinal Tract, Via Natural or Artificial Opening Endoscopic (ICD-10-PCS; CPT 45378; principal; 2024-03-23 14:30)
DX: N39.0 Urinary tract infection, site not specified (principal); R31.9 Hematuria, unspecified; C83.33 Diffuse large B-cell lymphoma, intra-abdominal lymph nodes; K64.4 Residual hemorrhoidal skin tags; K55.019 Acute (reversible) ischemia of small intestine, extent unspecified; N13.30 Unspecified hydronephrosis; Z96.0 Presence of urogenital implants; K21.9 Gastro-esophageal reflux disease without esophagitis; K22.2 Esophageal obstruction; R13.10 Dysphagia, unspecified; I10 Essential (primary) hypertension; E66.9 Obesity, unspecified; Z68.34 Body mass index [BMI] 34.0-34.9, adult; Z88.2 Allergy status to sulfonamides; Z79.899 Other long term (current) drug therapy; Z87.891 Personal history of nicotine dependence
CPT/HCPCS: 45380; 36415; 71046; 74177; 80053; 80202; 81001; 82550; 82565; 83605; 83615; 83690; 84145; 84484; 85025; 85610; 85652; 85730; 86140; 87040; 87086; 88184; 88305; 93005; 96361; 96365; 96375; 99285; A9270; G0378; J0696; J1171; J2185; J2405; J2704; J3370; J7030; J7120; Q9967

== ENCOUNTER 2024-07-30 13:53 | Outpatient (CLI) | payer OTHER, SELFPAY ==
--- NOTE | ~2024-07-30 | CT_ITS ---
CLINICAL INDICATION: Gross hematuria COMPARISON: 03/21/2024. TECHNIQUE: Multiple contiguous axial images of the abdomen and pelvis were performed without the admi nistration of intravenous contrast The dose-length product (DLP) was 863.27 mGy-cm. Automated exposure control and iterative reconstruction technique were employed. FINDINGS/OBSERVATIONS: Visualized lower thorax: The bilateral lung bases are clear. The heart is of normal size, without pericardial effusion. Small hiatal hernia is present. Liver: The liver demonstrates homogeneous attenuation and is not enlarged . Gallbladder and biliary system: The gallbladder is only minimally distended, and otherwise unremarkable. Pancreas: Limited evaluation of the pancreas secondary to the lack of intravenous contrast. Spleen: The spleen demonstrates homogeneous attenuation and is not enlarged. Kidneys: Right sided hydroureteronephrosis with a double-J stent extending from the lower pole learning support aide ior calyx of the right kidney with its distal pigtail in good position within the bladder, which is o nly minimally distended. The bladder wall is markedly thickened. No layering fluid of increased attenuation to suggest acute h emorrhage within the bladder. Position of the proximal pigtail has changed since previous examination performed in March 2024 wh en the proximal pigtail was in the right renal pelvis. The left kidney is unremarkable. No hydronephrosis or hydroureter. Adrenal glands: Unremarkable. Gastrointestinal tract: Fecal stasis within the colon. Appendix: The air-filled appendix is of normal caliber (axial series, images 124 through 139) Vasculature: Calcified atherosclerotic disease. Lymph nodes: Significant decrease in the size of the mass previously detected at the root of the mesentery, now me asuring 3.1 x 6.1 x 7.6 cm (anterior to posterior x medial to lateral x cranial to caudal dimension). Pelvic structures: The bladder is detailed above. The prostate gland is not enlarged. Body wall and musculoskeletal: Age appropriate degenerative disease within the lower thoracic and lumbosacral spines. IMPRESSION: Right-sided hydroureteronephrosis despite a double-J stent which appears in good imaging position, as detailed above. Significant decrease in the size of the mass previously identified at the root of the mesentery consi stent with a positive response to treatment. Reviewed, dictated and finalized at location A. IMPRESSION: Right-sided hydroureteronephrosis despite a double-J stent which appears in goo d imaging position, as detailed above. Significant decrease in the size of the mass previously identified at the root of the mesentery consistent with a positive response to treatment.
--- OUTSIDE RECORDS SUMMARY | 2024-07-30 14:01 | XMS_ITS | Encounter Summary ---
Author Organization [facility] Address [facility] [place] [address] Care Team Providers Care Marine Scientist Name Role Phone Jose Mo MD Primary Care Provider [phone] Saroj Griffin MD Unavailable [phone] Ania Topete NP Unavailable [phone] Encounter Details Date Type Department Care Team (Latest Contact Info) Description 02/10/2018 Abstract [facility] , Lorelei Moyer MD Social History Tobacco Use Types Packs/Day Years Used Date Smoking Tobacco: Never Assessed Sex and Gender Information Value Date Recorded Sex Assigned at Male 05/10/2019 1:27 AM FINANCIAL SERVICES 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 REPRESENTATIVE Legal Sex Male 7:38 PM CDT Gender Identity Male 05/10/2019 1:27 AM FINANCIAL SERVICES SALES REPRESENTATIVE Sexual Orientation Not on file documented as of this encounter Plan of Treatment Not on file documented as of this encounter Visit Diagnoses Not on filedocumented in this encounter Additional Health Concerns Infection Onset Date Last Indicated Resolved Time COVID-19 Rule Out 12/29/2020 12/29/2020 12/29/2020 3:34 PM CDT COVID-19 Rule Out 03/13/2021 03/13/2021 03/13/2021 2:37 PM FINANCIAL SERVICES SALES REPRESENTATIVE COVID-19 Confirmed 03/13/2021 03/13/2021 12:32 AM FINANCIAL SERVICES SALES REPRESENTATIVE COVID-19 Rule Out 07/27/2023 07/27/2023 07/27/2023 8:33 PM CDT documented as of this encounter Care Teams Marine Scientist Relationship Specialty Start Date End Date Jose Mo MD [address] [address] PCP - General INTERNAL MEDICINE 05/09/19 [place] [address] [place] [address] Consulting Physician UROLOGY 11/20/23 Ania Topete NP [address] [place] [phone] NURSE PRACTITIONER 11/20/23 documented as of this encounter
--- OUTSIDE RECORDS SUMMARY | 2024-07-30 14:01 | XMS_ITS | Encounter Summary ---
Author Organization [facility] Address [address] [facility] [place] [address] Care Team Providers Care Investigative Reporter Name Role Phone Jose Mo MD Primary Care Provider [phone] Encounter Details Date Type Department Care Team (Late st Contact Info) Description 03/24/2024 Lab Requisition [facility] - Pathology Lab [address] [place] [address] Weston Garces MD [address] [address] Illness, unspecified Social History Tobacco Use Types Packs/Day Years Used Date Smoking Tobacco: Never Assessed Sex and Gender Information Value Date Recorded Sex Assigned at Not on file 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 Gender Identity Not on file Sexual Orientation Not on file documented as of this encounter Plan of Treatment Not on file documented as of this encounter Procedures Procedure Name Priority Date/Time Associated Diagnosis Comments PATHOLOGY TISSUE Routine 03/23/2024 1:43 PM RABBET OPERATOR Illness, unspecified documented in this encounter Results * PATHOLOGY TISSUE (03/23/2024 1:43 PM RABBET OPERATOR) Case Report Surgical Pathology Report Case: [id number] Authorizing Provider: Weston Garces MD Collected: 03/23/2024 01:43 PM Ordering Location: [facility] - Received: 03/24/2024 02:17 PM Pathology Lab Pathologist: Dk Enciso MD Specimen: Gastric Biopsy 03/25/2024 4:23 PM [facility] Final Diagnosis Ileal mass, biopsy: - Diffuse large B-cell lymphoma, non-germinal center derived 03/25/2024 4:23 PM [facility] Microscopic Description and Comment The H&E stained sections show a mucosal infiltrate of sheets of large lymphoid cells with hyperchromatic chromatin and few interspersed apoptotic cells. A low-grade component is not appreciated. Immunohistochemistry performed at [facility] Pathology shows the lymphoma [...] epithelial and endothelial nuclei. 03/25/2024 4:23 PM [facility] Clinical History Ilial mass. 03/25/2024 4:23 PM [facility] Materials Received Received are 2 slide(s) and 1 block(s) labeled [id number] along with a copy of the outside pathology report. [place] [address]. All original materials are returned to the referring institution, along with a copy of our final report. 03/25/2024 4:23 PM [facility] Pathologist Location at [facility] 03/25/2024 4:23 PM [facility] Disclaimer The performance characteristics of all immunohistochemical and indirect immunofluorescence stains (if any) cited in this report were determined by the Histopathology [facility] of [facility]. Some of these tests were [...] the attending (teaching) pathologist. 03/25/2024 4:23 PM RABBET OPERATOR [facility] Embedded Images 03/25/2024 4:23 PM RABBET OPERATOR [facility] Pathology/Cytolo gy GASTRIC BIOPSY SPECIMEN / Unknown 03/23/2024 1:43 PM RABBET OPERATOR 03/24/2024 2:17 PM RABBET OPERATOR Weston Garces MD LAB - PATHOLOGY/CYTOLOGY ORDERAB LES Final Result Performing Organization Address City/State/[facility] Co de Phone Number [facility] [address] [phone] documented in this encounter Visit Diagnoses Diagnosis Illness, unspecified documented in this encounter Care Teams Investigative Reporter Relationship Specialty Start Date End Date Jose Mo MD PCP - General 03/21/08 documented as of this encounter
--- OUTSIDE RECORDS SUMMARY | 2024-07-30 14:01 | XMS_ITS | Clinical Summary ---
Author Organization [facility] Address [address] [place] [address] Care Team Providers Care Fraud Analyst Name Role Phone Jose Mo MD Primary Care Provider [phone] Source Comments [facility],non-owned Affiliates and Associated Physician Practices is amultiple site organization consisting of ambulatory clinics and hospital sitesin [place], [place], [place] and [place]. This disclosure is being madepursuant to the Care Everywhere program and may not contain all information available regarding this patient. 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 Gender Identity Not on file Sexual Orientation [...] COLON CA SCREENING 1971 LIPID TESTING 1971 COVID-19 VACCINE (#1) 1976 HIV SCREENING 1986 HEPATITIS C SCREENING 05/02/1989 DTAP/TDAP/TD VACCINES (1 - Tdap) 1990 HEPATITIS B VACCINE (1 of 3 - 19+ 3-dose series) 1990 PNEUMOCOCCAL VACCINE 50+ (1 of 2 - PCV) 1990 ZOSTER VACCINE (1 of 2) 1990 DEPRESSION SCREENING 04/07/2024 INFLUENZA VACCINE (Season Ended) 2024 02/19/2022, 12/22/2020, 12/24/2019, Additional history exists HIB VACCINE Aged Out No longer eligi ble based on patient's age to complete this topic HPV VACCINE Aged Out No longer eligi ble based on patient's age to complete this topic MENINGOCOCCAL (Group B) VACCINE SHARED DECISION-MAKING Aged Out No longer eligible based on patient's age to complete this topic MENINGOCOCCAL GROUPS A/C/Y/W VACCINE Aged Out No longer eligible based on patient's age to complete this topic Insurance [facility] [employer] [facility] SELF PAY NO INSURANCE Member Subscriber Plan / Payer (Ef fective for All Dates) Name:Angus Jain Member ID:Not on file Relation to Subscriber:Not on file Name:ANGUS JAIN Subscriber ID:Not on file (Home) Address: [address] [place] [address] Payer ID:Not on file Group ID:Not on file Type:Self Pay Address: [place], [place] * Guarantor: ANGUS JAIN Type Relation to Patient Date of Phone Billing Address Personal/Family [address] [address] [employer] * Guarantor: ANGUS JAIN Type Relation to Patient Date of Phone Billing Address Personal/Family [address] [address] [employer] [place] [address] * Guarantor: ANGUS JAIN Account Type Relation to Patient Date of Phone Billing Address Personal/Family [address] [id number] Care Teams Fraud Analyst Relationship Specialty Start Date End Date Jose Mo MD PCP - General 03/21/08
--- OUTSIDE RECORDS SUMMARY | 2024-07-30 14:01 | XMS_ITS | Encounter Summary ---
Author Organization [facility] Address [address] [place] [address] Care Team Providers Care Shop Coordinator Name Role Phone Jose Mo MD Primary Care Provider [phone] Encounter Details Date Type Department Care Team (Late st Contact Info) Description 11/04/2023 Lab Requisition [facility] - DermPath Lab [address] [place] [address] Reyes Ragland MD [address] [place] [address] Social History Tobacco Use Types Packs/Day Years Used Date Smoking Tobacco: Never Assessed Sex and Gender Information Value Date Recorded Sex Assigned at Not on file 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 Gender Identity Not on file Sexual Orientation Not on file documented as of this encounter Plan of Treatment Not on file documented as of this encounter Procedures Procedure Name Priority Date/Time Associated Diagnosis Comments DERMATOPATHOLOGY Routine 11/03/2023 12:0 0 AM CDT documented in this encounter Results * DERMATOPATHOLOGY (11/03/2023 12:00 AM CDT) Case Report Dermatopathology Report Case: [id number] Authorizing Provider: Reyes Ragland MD Collected: 11/03/2023 12:00 AM Ordering Location: [facility] - Received: 11/05/2023 06:48 AM DermPath Lab Pathologist: Alva Johnson MD Specimen: Skin, left superior helix 2:47 PM CDT DERMATOPATHOLOGY LABORATORY Final Diagnosis Specimen A. SKIN, left superior helix: BASAL CELL CARCINOMA, INFILTRATIVE PATTERN ([id number]) 2:47 PM CDT DERMATOPATHOLOGY LABORATORY Clinical History BCC 2:47 PM CDT DERMATOPATHOLOGY LABORATORY Gross Description Specimen A: Received is one formalin filled container labeled with the patient's name and designated left superior helix. The specimen consists of a shave biopsy measuring 6x6x1 mm. Jar 0. 2:47 PM CDT DERMATOPATHOLOGY LABORATORY Microscopic Description Specimen A. SKIN, left superior helix: Within the dermis there are nodular aggregates of basaloid cells associated with fibromyxoid stroma and epithelial-stromal clefts. At the advancing margin of the neoplasm, there are smaller angulated nests that infiltrate the dermis. 2:47 PM CDT DERMATOPATHOLOGY LABORATORY Disclaimer An external and internal positive and negative controls are appropriate for the histochemical, immunohistochemical and immunofluorescence stain(s) in this case (if any), except where stated explicitly. The performance characteristics of the stain(s) cited in this report were developed and its performance characteristic determined by the Dermatopathology Laboratory at [facility], directed by Dr. Omid Johnson. These tests need not be, and therefore are not, approved by the [place] Food and Drug Administration. The tests are used for clinical purposes. Billing Codes Specimen Charges Stain Charges 73297 1 2:47 PM CDT DERMATOPATHOLOGY LABORATORY Embedded Images 2:47 PM CDT DERMATOPATHOLOGY LABORATORY Pathology/Cytolog y TISSUE SPECIMEN FROM SKIN / Unknown 11/03/2023 11/05/2023 6:48 AM CDT us Reyes Ragland MD LAB - PATHOLOGY/CYTOLOGY ORDERAB LES Final Result DERMATOPATHOLOGY LABORATORY [facility] - Department of Dermatology [address] [phone] documented in this encounter Visit Diagnoses Not on filedocumented in this encounter Care Teams Shop Coordinator Relationship Specialty Start Date End Date Jose Mo MD PCP - General 03/21/08 documented as of this encounter
--- OUTSIDE RECORDS SUMMARY | 2024-07-30 14:01 | XMS_ITS | Clinical Summary ---
Author Organization [facility] Address [address] [place] [address] Phone Care Team Providers Care Folder Hand Name Role Phone Unavailable Primary Care Provider Unavailabl e Allergies Active Allergy Reactions Criticality Noted Date Comments Adhesive Tape-Silicones Rash Low 03/24/2024 Sulfa (Sulfonamide Antibiotics) Unknown Medium 03/07 Medications ascorbic acid, vitamin C, (VITAMIN C) 1,000 mg Tablet Take 1,000 mg by mouth 2 times daily. Active carBAMazepine (TEGretol XR) 200 mg Extended Release 12 hour tablet Take 800 mg by mouth daily at bedtime. Active psyllium (METAMUCIL) Packet Take 1 Packet by mouth daily. Active acetaminophen (TYLENOL) 325 mg tablet Take 325 mg by mouth every 4 hours as needed for Pain. Active calcium as carbonate (TUMS) 500 mg (200 mg elemental) Tablet, Chewable Take 200 mg by mouth 1 time daily as needed for Indigestion. Active SIMETHICONE ORAL Take 20 mg by mouth 1 time daily as needed for Other (See Comment) (indigestion ). Active diphenhydrAMINE (BENADRYL) 25 mg tablet Take 25 mg by mouth nightly as needed for Insomnia. Active famotidine (PEPCID) 10 mg tablet Take 10 mg by mouth 1 time daily as needed for Other (See Comment) (gerd). Active furosemide (LASIX) 20 mg tablet Take 20 mg by mouth 1 time daily as needed for Other (See Comment) (leg swelling). Active ibuprofen (MOTRIN) 200 mg tablet Take 200 mg by mouth every 6 hours as needed for Pain, Mild. Active methenamine hippurate (HIPREX) 1 gram Tablet Take 1 Gram by mouth 2 times daily. Active esomeprazole (NexIUM) 20 mg Capsule, Delayed Release(E.C.) Take 20 mg by mouth daily before breakfast. Active allopurinoL (ZYLOPRIM) 100 mg tablet Take 1 Tablet (100 mg) by mouth daily. 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 03/24/2024 Acute (reversible) ischemia of small intestine, extent unspecified 03/24/2024 Encounters Date Type Department Care Team Description 06/23/2024 External Device Data STL ABSTRACTION Provider, Abstract 06/16/2024 External Device Data STL ABSTRACTION Provider, Abstract 06/15/2024 External Device Data STL ABSTRACTION Provider, Abstract 06/12/2024 External Device Data STL ABSTRACTION Provider, Abstract 06/12/2024 External Device Data STL ABSTRACTION Provider, Abstract 06/01/2024 External Device Data STL ABSTRACTION Provider, Abstract 05/18/2024 External Device Data STL ABSTRACTION Provider, Abstract 05/05/2024 External Device Data STL ABSTRACTION Provider, Abstract from Last 3 Months Family History Medical History Relation Name Comments Heart Disease Maternal Grandfather Diabetes Maternal Grandmother Relation Name Status Comments Maternal Grandfather Maternal Grandmother Social History Tobacco Use Types Packs/Day Years Used Date Smoking Tobacco: Former Cigarettes 2018 Smokeless Tobacco: Never Tobacco Cessation:Counseling Given: Not Answered Comments:1 pack a day for 20 years, quit since 2019 Alcohol Use Standard Drinks/Week Comments Not Currently 0 (1 standard drink = 0.6 oz pur e alcohol) social Feeling Safe Answer Date Recorded Are you in a relationship wi th someone who hurts you emotionally and/or physically? No 03/26/2024 Food Insecurity Answer Date Recorded Social/Environmental Concerns No concerns Transportation Needs Answer Date Record ed Social/Environmental Concerns No concerns Housing Stability Answer Date Recorded Social/Environmental Concerns No concerns Utility Needs Answer Date Recorded Social/Environmental Concerns No concerns Sex and Gender Information Value Date Recorded Sex Assigned at Not on file Legal Sex Male 6:45 PM TONSORIAL ARTIST Gender Identity Not on file Sexual Orientation Not on file Last Filed Vital Signs Vital Sign Reading Time Taken Comments Blood Pressure 167/72 03/26/2024 7:38 PM TONSORIAL ARTIST Pulse 74 03/26/2024 7:38 PM TONSORIAL ARTIST Temperature 36.2 C (97.2 F) 03/26/2024 7:38 PM TONSORIAL ARTIST Respiratory Rate 16 03/26/2024 7:38 PM TONSORIAL ARTIST Oxygen Saturation 99% 03/26/2024 7:38 PM TONSORIAL ARTIST Inhaled Oxygen Concentration - - Weight 103.4 kg (228 lb) 03/26/2024 2:31 PM TONSORIAL ARTIST Height 172.7 cm (5' 8 ) 03/26/2024 2:31 PM TONSORIAL ARTIST Body Mass Index 34.67 03/26/2024 2:31 PM TONSORIAL ARTIST Plan of Treatment Health Maintenance Due Date Last Done Comments Pre-Diabetes and Diabetes Screening 1971 DTAP/TDAP/TD VACCINES (1 - Tdap) 1990 HEPATITIS B VACCINES (1 of 3 - 19+ 3-dose series) 1990 COLORECTAL SCREENING 2016 Colorectal Cancer Screening 2016 FIT-DNA Q 3 years 2016 FIT/FOBT Q 1 year 2016 Flex Sig/CT Colonography Q 5 years 2016 ZOSTER VACCINE (1 of 2) 2021 INFLUENZA VACCINE (#1) 2023 , 12/22/2020, 12/24/2019, Additional history exists Lung Cancer Screening 02/09/2025 02/10/2024, 023 Abdominal Aortic Aneurysm (A AA) Screening Completed 11/20/2023, 04/25/2021, 05/11/2019 Medical Devices Implanted Type Area Nautical Instrument Mechanic Device Identifier Shelf Expiration Date Model / Serial / Lot Cage Cage Spine Cervical Anterior Port Powerport Clearvue 8fr Mri [id number] - [id number] Implanted:Qty : 1 on 03/26/2024 by Justice Pham MD at [facility] Port N/A: Chest BARD GEE VASC [id number] 03/06/2025 [id number] / / [id number] Juan J Juan J Right: Femur Juan J Juan J Right: Leg Insurance RX [employer] Member Subscriber Plan / Payer (Ef fective for All Dates) Name:Angus Jain Relation to Subscriber:Self Name:Angus Jain Subscriber ID:Not on file Payer ID:Not on file Type:Not on file Address: [place] [place] [address] Advance Directives For more information, please contact: [phone] * NO CPR (In Event of Cardiopulmonary Arrest) (Latest Code Status on File) Date Activated Date Inactivated Comments 03/24/2024 3:54 AM 03/24/2024 10:15 PM Question Answer Comments Mechanical Ventilation (for respiratory distress) - Invasive (i.e. intubation): No Mechanical Ventilation (for respiratory distress) - Non-Invasive (i.e. BiPAP, CPAP): Yes
--- OUTSIDE RECORDS SUMMARY | 2024-07-30 14:01 | XMS_ITS | Encounter Summary ---
Author Organization [facility] Address [address] [place] [address] Care Team Providers Care Operations Processor Name Role Phone Jose Mo MD Primary Care Provider [phone] Saroj Griffin MD Unavailable [phone] Ania Topete NP Unavailable [phone] Reason for Visit * Reason Onset Date Comments Follow Up Call 06/17/2019 Encounter Details Date Type Department Care Team (Late st Contact Info) Description 06/17/2019 Telephone [facility] Med/Surg [address] [place] [address] Denny Wilde, HOLA Follow Up Call Social History Tobacco Use Types Packs/Day Years Used Date Smoking Tobacco: Former Cigarettes Q uit: 06/11/2018 Smokeless Tobacco: Never Alcohol Use Standard Drinks/Week Comments Yes 0 (1 standard drink = 0.6 oz pur e alcohol) socially Sex and Gender Information Value Date Recorded Sex Assigned at Male 05/10/2019 1:27 AM BOTTLE PACKER Legal Sex Male 7:38 PM CDT Gender Identity Male 05/10/2019 1:27 AM BOTTLE PACKER Sexual Orientation Not on file documented as of this encounter Functional Status * RETIRED Are you deaf or do you have serious difficulty hearing Answer Date of Assessment Author Status No 05/15/2019 12:02 PM BOTTLE PACKER 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 Answer Date of Assessment Author Status No 05/15/2019 12:02 PM BOTTLE PACKER Acti ve * Do you have serious [...] Author Return home General No Zayra Kidd, TELEMETRY REGISTERED NURSE Note: Plan to return home with significant other. No DME or home health needed at this time. documented as of this encounter Visit Diagnoses Not on filedocumented in this encounter Additional Health Concerns Infection Onset Date Last Indicated Resolved Time COVID-19 Rule Out 12/29/2020 12/29/2020 12/29/2020 3:34 PM CDT COVID-19 Rule Out 03/13/2021 03/13/2021 03/13/2021 2:37 PM BOTTLE PACKER COVID-19 Confirmed 03/13/2021 03/13/2021 12:32 AM BOTTLE PACKER COVID-19 Rule Out 07/27/2023 07/27/2023 07/27/2023 8:33 PM CDT documented as of this encounter Care Teams Operations Processor Relationship Specialty Start Date End Date Jose Mo MD [address] [address] PCP - General INTERNAL MEDICINE 05/09/19 [place] [address] [place] [address] Consulting Physician UROLOGY 11/20/23 Ania Topete NP [address] [phone] NURSE PRACTITIONER 11/20/23 documented as of this encounter
--- OUTSIDE RECORDS SUMMARY | 2024-07-30 14:01 | XMS_ITS | Clinical Summary ---
Author Organization [facility] Address [address] [place] [address] Care Team Providers Care Drawstring Knotter Name Role Phone Jose Mo MD Primary Care Provider [phone] Saroj Griffin MD Unavailable [phone] Ania Topete NP Unavailable [phone] Allergies Active Allergy Reactions Criticality Noted Date [...] Problems Problem Noted Date Diagnosed Date Sepsis ([facility] 05/10/2019 Urinary tract infection 05/09/2019 Epididymitis 05/09/2019 Immunizations Immunization Administration Dates Next Due Afluria 36 MONTHS+ [...] Sex Assigned at Male 05/10/2019 1:27 AM HOPPER FILLER Legal Sex Male 7:38 PM CDT Gender Identity Male 05/10/2019 1:27 AM HOPPER FILLER Sexual Orientation Not on file Last Filed Vital Signs Vital Sign Reading Time Taken Comments Blood Pressure 146/65 11/20/2023 4:15 PM CDT Pulse 70 11/20/2023 4:15 PM CDT Temperature 36.3 C (97.4 F) 11/20/2023 4:15 PM CDT Respiratory Rate 18 11/20/2023 4:15 PM CDT [...] C 1989 DTaP, Tdap and Td Vaccines ( 1 - Tdap) 1990 Hepatitis B Vaccines (1 of 3 - 19+ 3-dose series) 1990 Pneumococcal Vaccine: 50+ Ye ars (1 of 1 - PCV) 2021 Zoster Vaccines (1 of 2) 2021 COVID-19 Vaccine (1 - 2023-2 5 season) 2023 Meningococcal B Vaccine Aged Out No l onger eligible based on patient's age to complete this topic Meningococcal Vaccine Aged Out No fariba susan eligible based on patient's age to complete this topic RSV Immunizations Under 20 Months Aged Out No longer eligible based on patient's age to complete this topic Goals Goal Patient Goal Type Associated Problems Recent Progress Patient-Stated? Author Return home General No Zayra Kidd, LINING LAYER Note: Plan to return home with significant other. No DME or home health needed at this time. Insurance [facility] Care Teams Drawstring Knotter Relationship Specialty Start Date End Date Jose Mo MD [address] [address] PCP - General INTERNAL MEDICINE 05/09/19 [place] [address] [place] [address] Consulting Physician UROLOGY 11/20/23 Ania Topete NP [address] [place] [phone] NURSE PRACTITIONER 11/20/23
== END 2024-07-30 13:54 | disposition home or self-care (01) ==
PROVIDERS: PCP Internal Medicine; Visit Provider Nurse Practitioner Family
DX: R31.0 Gross hematuria (principal); N13.30 Unspecified hydronephrosis; Z96.0 Presence of urogenital implants
CPT/HCPCS: 74176